=== PATIENT | male | born 1950 | race Caucasian/White ===

== ENCOUNTER 2023-05-30 12:58 | Outpatient (OUT) | payer MEDICARE, SELFPAY ==
[2023-05-30 13:15] LABS: Basophils Percent Auto 0.6 % (0.2-2.0); Eosinophils Absolute Auto 0.2 10^3/uL (0.0-0.7); Eosinophils Percent Auto 2.2 % (0.9-7.0); Hematocrit 42.1 % (42.0-54.0); Hemoglobin 14.4 g/dL (14.0-18.0); Immature Granulocytes Abs Auto 0.02 10^3/uL (0.00-0.03); Immature Granulocytes Pct Auto 0.3 % (0.0-0.5); Lymphocytes Absolute Auto 2.2 10^3/uL (1.2-3.8); Lymphocytes Percent Auto 32.3 % (20.5-60.0); Mean Corpuscular HGB Conc 34.2 g/dL (29.9-35.2); Mean Corpuscular Hemoglobin 31.9 pg (25.9-34.0); Mean Corpuscular Volume 93.3 fL (80.0-94.0); Mean Platelet Volume 9.3 fL (9.5-13.5); Monocytes Absolute Auto 0.6 10^3/uL (0.3-0.8); Monocytes Percent Auto 9.2 % (1.7-12.0); Neutrophils Absolute Auto 3.7 10^3/uL (1.4-6.5); Neutrophils Percent Auto 55.4 % (43.0-75.0); Platelet Count 276 10^3/uL (150-450); Red Blood Count 4.51 10^6/uL (4.70-6.10); Red Cell Distribution Width 13.5 % (11.0-15.0); White Blood Count 6.7 10^3/uL (4.0-11.0)
[2023-05-30 13:46] LABS: Alanine Aminotransferase 17 U/L (16-63); Anion Gap 12.6; BUN Creatinine Ratio 15.9; Calcium 8.7 mg/dL (8.5-10.1); Carbon Dioxide 28.3 mmol/L (21.0-32.0); Chloride 100 mmol/L (98-107); Chol HDL Ratio 3.2; Cholesterol 120 mg/dL (<=200); Estimated GFR (African America >60 (>=60); Estimated GFR (Non-African Ame >60 (>=60); Glucose 109 mg/dL (74-106); HDL Cholesterol 37 mg/dL (40-60); Potassium 3.9 mmol/L (3.5-5.1); Sodium 137 mmol/L (136-145); Triglycerides 121 mg/dL (<=150); VLDL CHOLESTEROL 24.2 mg/dL
[2023-05-30 14:03] LABS: Prostate Specific Antigen Scrn 0.67 ng/mL (<=4.00)
[2023-05-30 17:12] LABS: Microalbumin Urine Random 26.7 mg/dL (<=30.0)
== END 2023-05-30 12:59 | disposition home or self-care (01) ==
LOC: LAB 12:58
PROVIDERS: PCP Internal Medicine; Visit Provider Internal Medicine
DX: E11.65 Type 2 diabetes mellitus with hyperglycemia (principal); E78.01 Familial hypercholesterolemia; I10 Essential (primary) hypertension; Z79.899 Other long term (current) drug therapy; Z12.5 Encounter for screening for malignant neoplasm of prostate
CPT/HCPCS: 36415; 80048; 80061; 82043; 84460; 85025; G0103

== ENCOUNTER 2023-07-08 17:31 | Emergency (ER) | payer MEDICARE, SELFPAY ==
[2023-07-08] VITALS (21 sets, daily range): BP systolic 108–148; BP diastolic 58–87; PULSE 81–104; RESP 9–25; TEMP 36.7; O2SAT 92–96; BMI 26.2
--- NOTE | 2023-07-08 17:54 | ECG_ITS ---
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
--- NOTE | 2023-07-08 17:54 | XR_ITS ---
[address] [address] Patient Name: VINAY SPAULDING MRN: [id number] date: 1950 Sex: M Assigned Patient Location: ER Current Patient Location: ER Accession/Order Number: [id number] Exam Date: 07/08/2023 18:10 Report Date: 07/08/2023 19:00 At the request of: ANNI MILLER Procedure: XR chest 1V ONE-VIEW CHEST RADIOGRAPH, 07/08/2023 6:10 PM EST COMPARISON: None. CLINICAL HISTORY: Chest pain Findings and impression: 1. Minimal atelectasis or scarring in the right midlung zone and minimal atelectasis in the right lung base. 2. Questionable Borderline pulmonary venous hypertension/pulmonary vascular congestion. 3. Cardiomegaly. 4. No acute osseous abnormality. Electronically authenticated by: Israel HOBBS Date: 07/08/2023 19:00
--- NOTE | 2023-07-08 18:02 | ED.CHESTPAI1 ---
HPI - Chest Pain General Chief Complaint: Chest Pain Stated Complaint: Difficulty Swallowing Time Seen by Provider: 07/08/23 17:50 Source: patient Mode of arrival: walk-in Limitations: no limitations History of Present Illness HPI narrative: patient is a 73-year-old male who presents to the emergency department for discomfort in the chest and epigastrium. Patient states throughout the day today he has had burning that felt like heartburn. He took a Prilosec prior to arrival. he states this afternoon with eating, he felt discomfort in the epigastrium when trying to swallow. He has no history of acid reflux or ulcers. He does have a history of coronary artery disease and previous heart attack twenty years ago with one stent placed. He currently takes medications for high cholesterol, [id number] diabetes, high blood pressure. He denies any recent illness, fevers, cough, congestion. he has no discomfort when he is not eating or swallowing. He denies shortness of breath. He has had no peripheral edema. Risk Factors Coronary artery disease risk factors: diabetes, hyperlipidemia and hypertension Related Data Home Medications Medication Instructions Recorded Confirmed atorvastatin 80 mg tablet 80 mg PO DAILY 07/08/23 07/08/23 dapagliflozin propanediol 10 mg 10 mg PO DAILY 07/08/23 07/08/23 tablet (Farxiga) dulaglutide 3 mg/0.5 mL 3 mg subcut .weekly 07/08/23 07/08/23 subcutaneous pen injector (Trulicity) losartan 25 mg tablet 25 mg PO DAILY 07/08/23 07/08/23 metformin 1,000 mg tablet 1,000 mg PO BID 07/08/23 07/08/23 metoprolol succinate 25 mg 25 mg PO DAILY 07/08/23 07/08/23 tablet,extended release 24 hr nitroglycerin 0.4 mg sublingual 0.4 mg sublingual Q5M PRN chest 07/08/23 07/08/23 tablet pain omeprazole 40 mg capsule,delayed 40 mg PO DAILY 07/08/23 07/08/23 release tramadol 50 mg tablet 50 mg PO Q4H PRN pain 07/08/23 07/08/23 Allergies Allergy/AdvReac Type Severity Reaction Status Date / Time No Known Drug Allergies Allergy Verified 07/08/23 17:38 Review of Systems ROS Constitutional Denies: fever or chills Ears, nose, mouth, and throat Denies: throat pain Cardiovascular Reports: chest pain Respiratory Denies: shortness of breath or cough Gastrointestinal Denies: nausea or vomiting Musculoskeletal Denies: back pain Integumentary/Breast Denies: rash Hematologic/Lymphatic Denies: easy bruising PFSH [facility] Social History Smoking status: Former smoker Exam Narrative Exam Narrative: Gen.: Awake, alert, in no distress Head: Normocephalic, atraumatic ENT: Moist mucous membranes Respiratory: No respiratory distress, lungs clear bilaterally Cardio: Regular rate and rhythm Gastrointestinal: Abdomen is soft, nondistended and nontender to palpation Extremities: Moves extremities equally, no pedal edema Psych: Normal mood and affect Neuro: No focal neuro deficit Skin: Warm, dry, intact Constitutional Vital Signs, click to edit/add: Last Vital Signs Temp 98.0 F 07/08/23 17:42 Pulse 91 H 07/08/23 19:40 Resp 17 07/08/23 19:40 BP 119/75 07/08/23 19:30 Pulse Ox 96 07/08/23 19:40 O2 Del Method Room Air 07/08/23 17:42 Course Vital Signs Vital signs: Vital Signs Temperature 98.0 F 07/08/23 17:42 Pulse Rate 98 H 07/08/23 17:42 Respiratory Rate 20 07/08/23 17:42 Blood Pressure 135/69 07/08/23 17:42 Pulse Oximetry 95 07/08/23 17:42 Oxygen Delivery Method Room Air 07/08/23 17:42 Temperature 98.0 F 07/08/23 17:42 Pulse Rate 91 H 07/08/23 19:40 Respiratory Rate 17 07/08/23 19:40 Blood Pressure 119/75 07/08/23 19:30 Pulse Oximetry 96 07/08/23 19:40 Oxygen Delivery Method Room Air 07/08/23 17:42 MDM - Chest Pain MDM Narrative Medical decision making narrative: lab studies within normal limits. Lipase is mildly elevated although the patient has no persistent abdominal pain and the elevation is not three times the upper limit of normal so it does not qualify for acute pancreatitis. Patient was given aspirin and gastrointestinal cocktail in the Emergency Room. He had no complaints of chest discomfort in the Emergency Room. He maintains normal cardiac monitoring, normal EKG. He was reevaluated by attending physician and a repeat troponin was ordered for the patient. He will follow-up with closely with his PCP, repeat troponin is within normal limits. Return to the Emergency Room if symptoms change or worsen Medical Records Data Attestation: I reviewed the patient's medical records. Lab Data Attestation: I reviewed the patient's lab results. Labs: Lab Results 07/08/23 07/08/23 Range/Units 17:53 20:16 WBC 7.9 (4.0-11.0) 10^3/uL RBC 4.60 L (4.70-6.10) 10^6/uL Hgb 14.4 (14.0-18.0) g/dL Hct 41.9 L (42.0-54.0) % MCV 91.1 (80.0-94.0) fL MCH 31.3 (25.9-34.0) pg MCHC 34.4 (29.9-35.2) g/dL RDW 13.3 (11.0-15.0) % Plt Count 281 (150-450) 10^3/uL MPV 9.5 (9.5-13.5) fL Neut % (Auto) 62.1 (43.0-75.0) % Lymph % (Auto) 24.7 (20.5-60.0) % [place] % (Auto) 10.7 (1.7-12.0) % Eos % (Auto) 1.9 (0.9-7.0) % Baso % (Auto) 0.5 (0.2-2.0) % Neut # (Auto) 4.9 (1.4-6.5) 10^3/uL Lymph # (Auto) 2.0 (1.2-3.8) 10^3/uL [place] # (Auto) 0.9 H (0.3-0.8) 10^3/uL Eos # (Auto) 0.2 (0.0-0.7) 10^3/uL Baso # (Auto) 0.0 (0.0-0.1) 10^3/uL Abs Immat Gran (auto) 0.01 (0.00-0.03) 10^3/uL Imm/Tot Granulo (auto) 0.1 (0.0-0.5) % PT 10.5 (9.0-11.6) sec INR 0.99 APTT 27.3 (22.3-36.2) sec Sodium 135 L (136-145) mmol/L Potassium 4.0 (3.5-5.1) mmol/L Chloride 99 (98-107) mmol/L Carbon Dioxide 28.8 (21.0-32.0) mmol/L Anion Gap 11.2 BUN 17.0 (7.0-18.0) mg/dL Creatinine 1.13 (0.70-1.30) mg/dL Est GFR ( Amer) >60 (>=60) Est GFR (Non-Af Amer) >60 (>=60) BUN/Creatinine Ratio 15.0 Glucose 153 H (74-106) mg/dL Calcium 9.4 (8.5-10.1) mg/dL Total Bilirubin 0.9 (0.2-1.0) mg/dL AST 16 (15-37) U/L ALT 18 (16-63) U/L Alkaline Phosphatase 86 (46-116) U/L Total Creatine Kinase 24 L (39-308) U/L CK-MB (CK-2) <0.50 (<=3.60) ng/mL Troponin I High Sens 7.3 7.9 (4.0-76.1) pg/mL NT-Pro-B Natriuret Pep 148.0 (<=900.0) pg/mL Total Protein 8.7 H (6.4-8.2) g/dL Albumin 3.3 L (3.4-5.0) g/dL Globulin 5.4 g/dL Albumin/Globulin Ratio 0.6 Lipase 141.0 H (16.0-77.0) U/L Imaging Data Chest x-ray: Attestation: I have reviewed the pertinent imaging results. ECG Data Attestation: I personally reviewed and interpreted this ECG as follows: (normal sinus rhythm at a rate of ninety-seven, no acute ST elevation or ectopy. EKG reviewed by attending physician) ECG interpretation date: 07/08/23 ECG interpretation time: 18:06 Heart Score History: Slightly/Non-Suspicious ECG: Normal Age: >65 years Risk Factors: >3 Risk Factors/ HX of CAD:2 Troponin: <Normal Limit Total Heart Score Recommendations & Risks:: 4 Discharge Plan Discharge Chief Complaint: Chest Pain Clinical Impression: Chest pain Time of Disposition Decision: 20:49 Condition: Good Prescriptions / Home Meds: No Action atorvastatin 80 mg tablet 80 mg PO DAILY Farxiga 10 mg tablet 10 mg PO DAILY Trulicity 3 mg/0.5 mL pen injector 3 mg SUBCUT .weekly metformin 1,000 mg tablet 1,000 mg PO BID metoprolol succinate 25 mg tablet extended release 24 hr 25 mg PO DAILY omeprazole 40 mg capsule,delayed release(DR/EC) 40 mg PO DAILY nitroglycerin 0.4 mg tablet, sublingual 0.4 mg sublingual Q5M PRN (Reason: chest pain) tramadol 50 mg tablet 50 mg PO Q4H PRN (Reason: pain) losartan 25 mg tablet 25 mg PO DAILY Instructions: Chest Pain (ED) Stand Alone Forms: Portal Instructions Referrals: Vernon Greene, [Primary Care Provider] - As soon as possible
[2023-07-08 18:05] LABS: Basophils Percent Auto 0.5 % (0.2-2.0); Eosinophils Absolute Auto 0.2 10^3/uL (0.0-0.7); Eosinophils Percent Auto 1.9 % (0.9-7.0); Hematocrit 41.9 % (42.0-54.0); Hemoglobin 14.4 g/dL (14.0-18.0); Immature Granulocytes Abs Auto 0.01 10^3/uL (0.00-0.03); Immature Granulocytes Pct Auto 0.1 % (0.0-0.5); Lymphocytes Percent Auto 24.7 % (20.5-60.0); Mean Corpuscular HGB Conc 34.4 g/dL (29.9-35.2); Mean Corpuscular Hemoglobin 31.3 pg (25.9-34.0); Mean Corpuscular Volume 91.1 fL (80.0-94.0); Mean Platelet Volume 9.5 fL (9.5-13.5); Monocytes Absolute Auto 0.9 10^3/uL (0.3-0.8); Monocytes Percent Auto 10.7 % (1.7-12.0); Neutrophils Absolute Auto 4.9 10^3/uL (1.4-6.5); Neutrophils Percent Auto 62.1 % (43.0-75.0); Platelet Count 281 10^3/uL (150-450); Red Cell Distribution Width 13.3 % (11.0-15.0); White Blood Count 7.9 10^3/uL (4.0-11.0)
[2023-07-08] MEDS: lidocaine HCL 15 ML, MAG HYDROX/ALUMINUM HYD/SIMETH 30 ML, HYOSCYAMINE SULFATE 0.25 MG PO (18:17)
[2023-07-08] MEDS: ASPIRIN 81 MG TAB.CHEW 162 MG PO (18:17)
[2023-07-08 18:23] LABS: INR 0.99; Partial Thromboplastin Time 27.3 sec (22.3-36.2); Prothrombin Time 10.5 sec (9.0-11.6)
[2023-07-08 18:26] LABS: Albumin Globulin Ratio 0.6; Albumin Level 3.3 g/dL (3.4-5.0); Alkaline Phosphatase 86 U/L (46-116); Anion Gap 11.2; Aspartate Amino Transferase 16 U/L (15-37); Bilirubin Total 0.9 mg/dL (0.2-1.0); Calcium 9.4 mg/dL (8.5-10.1); Carbon Dioxide 28.8 mmol/L (21.0-32.0); Chloride 99 mmol/L (98-107); Estimated GFR (African America >60 (>=60); Estimated GFR (Non-African Ame >60 (>=60); Globulin 5.4 g/dL; Glucose 153 mg/dL (74-106); Sodium 135 mmol/L (136-145); Total Protein 8.7 g/dL (6.4-8.2); Troponin I High Sensitivity 7.3 pg/mL (4.0-76.1)
[2023-07-08 18:43] LABS: Alanine Aminotransferase 18 U/L (16-63)
[2023-07-08 20:45] LABS: Creatine Kinase 24 U/L (39-308); Creatine Kinase MB <0.50 ng/mL (<=3.60); Troponin I High Sensitivity 7.9 pg/mL (4.0-76.1)
== END 2023-07-08 21:00 | disposition home or self-care (01) ==
PROVIDERS: Physician Assistant; Emergency Provider Emergency Medicine Emergency Medical Services; PCP Internal Medicine
DX: R07.9 Chest pain, unspecified (principal); I25.10 Atherosclerotic heart disease of native coronary artery without angina pectoris; E78.00 Pure hypercholesterolemia, unspecified; E11.9 Type 2 diabetes mellitus without complications; I10 Essential (primary) hypertension; Z79.899 Other long term (current) drug therapy; I25.2 Old myocardial infarction; Z79.84 Long term (current) use of oral hypoglycemic drugs; Z79.85 Long-term (current) use of injectable non-insulin antidiabetic drugs; Z87.891 Personal history of nicotine dependence
CPT/HCPCS: 36415; 71045; 80053; 82550; 82553; 83690; 83880; 84484; 85025; 85610; 85730; 93005; 99285

== ENCOUNTER 2023-07-31 08:26 | Outpatient (OUT) | payer MEDICARE, SELFPAY ==
--- NOTE | 2023-07-31 10:02 | CT_ITS ---
The [address] [address] Patient Name: VINAY SPAULDING MRN: [id number] date: 1950 Sex: M Assigned Patient Location: CT Current Patient Location: CT Accession/Order Number: [id number] Exam Date: 07/31/2023 09:48 Report Date: 07/31/2023 11:20 At the request of: MACK GARDUNO Procedure: CT abdomen pelvis w con CT abdomen pelvis w con, 07/31/2023 9:48 AM EST INDICATION: Unexplained Weight Loss R63.4, Esophageal Dysphagia R13.19 COMPARISON: There is no appropriate prior study for comparison. TECHNIQUE: Axial images of the abdomen and were obtained after the administration of IV and oral contrasts. Multiplanar reformatted images were generated and reviewed as needed. Dose reduction techniques were achieved by using automated exposure control and/or adjustment of mA and/or kV according to patient size and/or use of iterative reconstruction technique. FINDINGS: Lungs: There is peripheral honeycombing, architectural distortion and traction bronchiectasia in the visualized portion of the upper and lower lobes suggesting of nonspecific interstitial pneumonitis. No pleural effusion is noted. Liver and gallbladder: The liver and gallbladder are unremarkable. No enlargement of intra or extrahepatic biliary ducts. Genitourinary system: No hydronephrosis. No nephrolithiasis. No abnormality of the urinary bladder is noted. Calcification within the prostate is noted. Other solid abdominal organs: adrenal glands, and pancreas, are unremarkable. There is moderate splenomegaly measuring 13.4 cm. Aorta: The infrarenal abdominal aorta is nonaneurysmal. Free fluid: There is no free fluid in the abdomen pelvis. Lymph node: No lymph node enlargement by size criteria is noted. Reactive gastrohepatic lymph node measuring 7 mm in short axis. Stomach and Bowel: No abnormality of the stomach is noted. No abnormality of small or large bowel is noted. Bone: There is no suspicious osteolytic or osteoblastic lesion. There is diffuse demineralization of bone. Lower lumbar spine degenerative changes are noted. CT/CT abdomen pelvis w con IMPRESSION: 1. Chest findings suggesting of nonspecific interstitial pneumonitis. A CT of the chest may be helpful for further evaluation. 2. Mild splenomegaly. Otherwise, no significant abnormality within the abdomen pelvis. Electronically authenticated by: JI COHN Date: 07/31/2023 11:20
[2023-07-31 10:16] LABS: Basophils Absolute Auto 0.1 10^3/uL (0.0-0.1); Basophils Percent Auto 0.6 % (0.2-2.0); Eosinophils Absolute Auto 0.1 10^3/uL (0.0-0.7); Eosinophils Percent Auto 1.6 % (0.9-7.0); Hematocrit 38.5 % (42.0-54.0); Hemoglobin 13.1 g/dL (14.0-18.0); Immature Granulocytes Abs Auto 0.01 10^3/uL (0.00-0.03); Immature Granulocytes Pct Auto 0.1 % (0.0-0.5); Lymphocytes Absolute Auto 2.1 10^3/uL (1.2-3.8); Lymphocytes Percent Auto 25.5 % (20.5-60.0); Mean Corpuscular Hemoglobin 30.8 pg (25.9-34.0); Mean Corpuscular Volume 90.4 fL (80.0-94.0); Mean Platelet Volume 8.6 fL (9.5-13.5); Monocytes Absolute Auto 0.7 10^3/uL (0.3-0.8); Monocytes Percent Auto 8.6 % (1.7-12.0); Neutrophils Absolute Auto 5.1 10^3/uL (1.4-6.5); Neutrophils Percent Auto 63.6 % (43.0-75.0); Platelet Count 367 10^3/uL (150-450); Red Blood Count 4.26 10^6/uL (4.70-6.10); Red Cell Distribution Width 13.8 % (11.0-15.0)
[2023-07-31 10:51] LABS: Alanine Aminotransferase 18 U/L (16-63); Albumin Globulin Ratio 0.5; Albumin Level 2.7 g/dL (3.4-5.0); Alkaline Phosphatase 103 U/L (46-116); Amylase 28 U/L (25-115); Anion Gap 12.8; Aspartate Amino Transferase 20 U/L (15-37); BUN Creatinine Ratio 11.7; Bilirubin Total 0.7 mg/dL (0.2-1.0); Calcium 8.2 mg/dL (8.5-10.1); Carbon Dioxide 27.9 mmol/L (21.0-32.0); Chloride 97 mmol/L (98-107); Estimated GFR (African America >60 (>=60); Estimated GFR (Non-African Ame >60 (>=60); Globulin 5.4 g/dL; Glucose 110 mg/dL (74-106); Potassium 3.7 mmol/L (3.5-5.1); Sodium 134 mmol/L (136-145); Total Protein 8.1 g/dL (6.4-8.2)
[2023-08-01 10:57] LABS: Thyroid Stimulating Hormone 1.332 uIU/mL (0.358-3.740)
--- OUTSIDE RECORDS SUMMARY | 2023-08-20 00:31 | XMS_ITS | CCD ---
Author Name Unknown Address [address] [place] [address] Organization [facility] Care Team Providers Care Turbine Technician Name Role Phone Vernon Greene Unavailable VERNON GREENE Admitting Unavailable JC, VERNON Attending Unavailable JC, VERNON Primary Care Unavailable BALL, VERNON Consulting Unavailable LIDIA, DR VINNY Evans Consulting Unavailable JC, VERNON Primary Care Unavailable REQUEST, NONE LISTED Admitting Unavaila ble REQUEST, NONE LISTED Attending Unavaila ble REQUEST, NONE LISTED Consulting Unavaila ble REQUEST, NONE LISTED Admitting Unavaila ble REQUEST, NONE LISTED Attending Unavaila ble BALL, VERNON Primary Care Unavailable REQUEST, NONE LISTED Consulting Unavaila ble REQUEST, NONE LISTED Admitting Unavaila ble REQUEST, NONE LISTED Attending Unavaila ble JC, VERNON Primary Care Unavailable REQUEST, NONE LISTED Consulting Unavaila ble JC, VERNON Admitting Unavailable JC, VERNON Attending Unavailable JC, VERNON Primary Care Unavailable JC, VERNON Consulting Unavailable DO Erickson Nascimento Attending Provider [phone] Erickson Nascimento Unavailable DO Erickson Nascimento Attending Provider DO Vernon Greene Primary Care Provider [phone] Erickson Nascimento Admitting Unavailable Erickson Nascimento Attending Unavailable Vernon Greene Primary Care Unavailable Erickson Nascimento Admitting Unavailable Erickson Nascimento Attending Unavailable Navneet Puga Unavailable Medications Current Medications Medication Drug Class(es) Dates Sig (Normalized) Sig (Original) Accu-Chek Nury Plus - (20 sources) Accu-Chek Nury Plus - USE 1 STRIP TO TEST BLOOD SUGAR ONCE EVERY DAY for 90 Active aspirin 81 mg oral tablet (1 source) Platelet Aggregation Inhibitor, Nonsteroidal Anti-inflammatory Drug Start: 07-04-2023 take 81 mg by mouth once daily Aspirin Active 81 MG PO Daily July 04, 2023 12:00am atorvastatin 80 mg oral tablet (20 sources) HMG-CoA Reductase Inhibitor Start: 07-04-2023 take 80 mg by mouth once daily Atorvastatin Active 80 MG PO Daily July 04, 2023 12:00am dapagliflozin 10 mg oral tablet (20 sources) Sodium-Glucose Cotransporter 2 Inhibitor Start: 07-04-2023 take 1 tablet by mouth once daily Dapagliflozin Propanediol (Farxiga) 10 mg tablet Active 10 MG PO Daily July 04, 2023 12:00am trulicity 3 mg/0.5ml solution pen-injector (20 sources) GLP-1 Receptor Agonist Trulicity 3 MG/0.5ML as directed Subcutaneous Active Dulaglutide (Trulicity) 3 mg/0.5 mL pen injector (1 source) Start: 07-04-2023 Dulaglutide (Trulicity) 3 mg/0.5 mL pen injector Active 3 MG SUBCUT every week July 04, 2023 12:00am losartan potassium 25 mg oral tablet (20 sources) Angiotensin 2 Receptor Anne-Marie Start: 07-04-2023 take 25 mg by mouth once daily Losartan Active 25 MG PO Daily July 04, 2023 12:00am metFORMIN hydrochloride 1000 mg oral tablet (20 sources) Biguanide Start: 07-04-2023 take 1000 mg by mouth once daily Metformin Active 1000 MG PO Daily July 04, 2023 12:00am 24 hr metoprolol succinate 25 mg extended release oral tablet (20 sources) beta-Adrenergic Anne-Marie Start: 07-04-2023 take 25 mg by mouth once daily Metoprolol Succinate Active 25 MG PO Daily July 04, 2023 12:00am nitroglycerin 0.4 mg sublingual tablet (20 sources) Nitrate Vasodilator Start: 07-04-2023 take 0.4 mg under the tongue once daily Nitroglycerin Active 0.4 MG SUBLINGUAL Daily July 04, 2023 12:00am pt has never used Nitroglycerin 0. 4 MG 1 tablet Sublingual PRN Active omeprazole 20 mg delayed release oral tablet (6 sources) Proton Pump Inhibitor Start: 07-04-2023 take 20 mg by mouth once daily Omeprazole Active 20 MG PO Daily July 04, 2023 12:00am Start: 11-18-2022 take 1 capsule by mo uth once daily Omeprazole 40 MG 1 capsule 30 minutes before morning meal Orally Once a day for 30 days Oct, Active traMADol hydrochloride 50 mg oral tablet (1 source) Opioid Agonist Start: 07-04-2023 take 50 mg by mouth every four hours Tramadol Active 50 MG PO Q4H 10 July 04, 2023 12:00am Problems Active Problems Problem Classification Problem Date Documented Da te Episodic/Chronic Abdominal pain (2 sources) Epigastric pain Episodic Chronic obstructive pulmonary disease and bronchiectasis (2 sources) Acute exacerbation of chronic obstructive airways disease; Translations: [Chronic obstructive pulmonary disease with (acute) exacerbation] Chronic Coronary atherosclerosis and other heart disease (20 sources) Coronary arteriosclerosis; Translations: [Atherosclerotic heart disease of [place] coronary artery without angina pectoris] Chronic Diabetes mellitus with complications (20 sources) Polyneuropathy due to type 2 diabetes mellitus; Translations: [Type 2 diabetes mellitus with diabetic polyneuropathy] Onset: 05-15-2022 Chronic Disorders of lipid metabolism (20 sources) Pure hypercholesterolemia ; Translations: [Familial hypercholesterolemia ] Onset: 05-19-2022 Chronic Esophageal disorders (20 sources) Gastro-esophageal reflux disease with esophagitis; Translations: [Gastroesophageal reflux disease with esophagitis without hemorrhage] Chronic Essential hypertension (20 sources) Essential hypertension; Translations: [Essential (primary) hypertension] Onset: 05-19-2022 Chronic Hyperplasia of prostate (20 sources) Lower urinary tract symptoms due to benign prostatic hypertrophy; Translations: [Benign prostatic hyperplasia with lower urinary tract symptoms] Chronic Other aftercare (20 sources) H/O: high risk medication; Translations: [Other terminal superintendent (current) drug therapy] Episodic Other aftercare (2 sources) Other terminal superintendent (current) drug therapy; Translations: [OTH 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 SERVICE TECHNICIAN CURRENT DRUG THERAPY] Onset: 05-19-2022 Episodic Other connective tissue disease (3 sources) Olecranon bursitis, left elbow Episodic Other gastrointestinal disorders (20 sources) Intra-abdominal and pelvic swelling, mass and lump; Translations: [Intra-abdominal and pelvic swelling, mass and lump, unspecified site] Episodic Other gastrointestinal disorders (2 sources) Other dysphagia Episodic Other liver diseases (4 sources) Non-alcoholic fatty liver; Translations: [Fatty (change of) liver, not elsewhere classified] Chronic Other liver diseases (18 sources) Fatty (change of) liver, not elsewhere classified; Translations: [Nonalcoholic fatty liver disease] Chronic Other liver diseases (2 sources) Abnormal levels of other serum enzymes Episodic Other lower respiratory disease (1 source) Hypoxemia Episodic Other nervous system disorders (20 sources) Chronic pain; Translations: [Other chronic pain] Chronic Other nervous system disorders (1 source) Other chronic pain Chronic Other non-traumatic joint disorders (5 sources) Pain in left knee; Translations: [PAIN IN LEFT KNEE] Onset: 11-25-2022 Episodic Other non-traumatic joint disorders (2 sources) Pain in left elbow Episodic Other nutritional; endocrine; and metabolic disorders (3 sources) Abnormal weight loss Episodic Other screening for suspected conditions (not mental disorders or infectious disease) (4 sources) Encounter for screening for malignant neoplasm of prostate; Translations: [Encounter for screening for malignant neoplasm of colon] Onset: 05-19-2022 Episodic Other skin disorders (1 source) Localized swelling, mass and lump, unspecified Episodic Other skin disorders (1 source) Localized swelling, mass and lump, left upper limb Episodic Other skin disorders (2 sources) Localized swelling, mass and lump, unspecified upper limb; Translations: [Elbow mass] Onset: 07-04-2023 07-04-2023 Episodic Other upper respiratory disease (20 sources) Bleeding from nose; Translations: [Epistaxis] Episodic Spondylosis; intervertebral disc disorders; other back problems (20 sources) Lumbar spondylosis; Translations: [Spondylosis without myelopathy or radiculopathy, lumbar region] Chronic Substance-related disorders (20 sources) Tobacco user; Translations: [Nicotine dependence, cigarettes, in remission] Chronic Unclassified (1 source) Localized swelling, mass and lump, left upper limb; Translations: [Localized swelling, mass and lump, left upper limb] Onset: 07-04-2023 Unclassified (1 source) Pain in left elbow; Translations: [Pain in left elbow] Onset: 02-26-2023 Past or Other Problems Problem Classification Problem Date Documented Da te Episodic/Chronic Esophageal disorders (5 sources) Esophageal disorders Pneumonia (except that caused by tuberculosis or sexually transmitted disease) (1 source) Pneumonia (except that caused by tuberculosis or sexually transmitted disease) Viral infection (1 source) COVID-19 Results Test Name Value Interpretation Reference Range Facil ity Glucose Glucometer (BldC) [M ass/Vol]Ordered By: Erickson Nascimento on 07-04-2023 Glucose [Mass/Vol] 134 mg/dL [facility] Comment on above: Random Glucose Refer ence Range is dependent on time and content of last meal. Glucose of more than 200 mg/dL in a nonstressed, ambulatory subject supports the diagnosis of Diabetes Mellitus. Glucose Poct Glucometerson 1 09-03-2022 Glucose [Mass/Vol] 134 mg/dL Normal [facility] Comment on above: Result Comment: [place] om Glucose Reference Range is dependent on time and content of last meal. Glucose of more than 200 mg/dL in a nonstressed, ambulatory subject supports the diagnosis of Diabetes Mellitus. PERFORMED BY: [place] [id number] [address] [place] [address] PATHOLOGIST [employer] CLOSER ADELFO RAMIREZ M.D. Performed By: #### G LOYD #### Point of Care testing , Eduard 07-04-2023 L Specimen: [id number] Received: 07/04/23 Status: RAQUEL De Oliveira Num: [id number] Spec Type: Surgical Subm Dr: Erickson Nascimento, DO Tissues: A Soft Tissue/Surgical Margin-Other than Tumor,Mass,Lip or Natasha (LT ELBOW MASS) Procedures: VINCENT, Gross/Micro L4 Age/ Patient Sex Location Account Attending Physician MattVinay 73/M [place] [id number] Erickson Nascimento DO SPEC NUM: [id number] RECD: 07/04/23 STATUS: RAQUEL MCKOYLiss NUM: [id number] DENISA: 07/04/[address] [facility] [address]: Erickson Nascimento DO ENTERED: 07/04/[address] [facility] [address]: DARY TYPE: Surgical DEPT: S ORDERED: HE, Gross/Micro L4 ORDERED: HE, Gross/Micro L4 Pathological Diagnosis Soft tissue, left elbow, excision: - 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 with patchy associated fibrinoid degeneration, focal mild chronic inflammation, and dense surrounding fibrosis per pathological features of severe necrobiotic degeneration of tenosynovial membrane - No malignancy, or any other obvious features of secondary infection observed NOTE: - The differential diagnosis may include rheumatoid nodule or other necrobiosis nodule such as subcutaneous granuloma annulare, and the superimposed surrounding chronic bursitis r equiring clinical correlation Clinical Information Left elbow mass Gross Description Received in formalin labeled with the patient's name, date of and left elbow mass is a 2.2 x 1.8 x 1.2 cm gutierrez-dubois, annular tissue with a rubbery, dubois-pink cut surface. Glue Mill Operator sections are submitted in one cassette labeled A1. Specimen: [id number] Received: 07/04/23 Status: RAQUEL De Oliveira Num: [id number] Spec Type: Surgical Subm Dr: Erickson Nascimento DO Tissues: A Soft Tissue/Surgical Margin-Other than Tumor,Mass,Lip or Natasha (LT ELBOW MASS) Procedures: Kristin KAUR/Zo L4 Patient: Vinay Gutierrez [id number] (Continued) Specimen: [id number] Received: 07/04/23 (Continued) Signed (signature on file) Brandy Keane MD 07/08/23 1545 Specimen: [id number] Received: 07/04/23 Status: RAQUEL De Oliveira Num: [id number] Spec Type: Surgical Subm Dr: Erickson Nascimento DO Tissues: A Soft Tissue/Surgical Margin-Other than Tumor,Mass,Lip or Natasha (LT ELBOW MASS) Procedures: VINCENT, Gross/Micro L4 Patient: Vinay Gutierrez [id number] (Continued) Specimen: [id number] Received: 07/04/23 (Continued) Microscopic Description One H E slide reviewed. The microscopic examination confirms the diagnosis. CPT Codes 75582 Specimen: [id number] Received: 07/04/23 Status: RAQUEL De Oliveira Num: [id number] Spec Type: Surgical Subm Dr: Erickson Nascimento DO Tissues: A Soft Tissue/Surgical Margin-Other than Tumor,Mass,Lip or Natasha (LT ELBOW MASS) Procedures: HE, Gross/Micro L4 Patient: Vinay Gutierrez [id number] (Continued) Signed (signature on file) Brandy Keane MD 07/08/23 1545 Normal [facility] XR elbow LT 2Von 02-26-2023 XR elbow LT 2V [place] [address] XRay Report Signed Patient: Vinay Gutierrez MR#: [id number] : 1950 Acct:[id number] Age/Sex: 72 / M ADM Date: 02/26/23 Loc: [facility] Room: Type: [facility] Attending Dr: Erickson Nascimento DO Copies to: Erickson Nascimento DO Ordering Provider: Erickson Nascimento DO Date of Service: 02/26/23 XR/XR elbow LT 2V: Left elbow pain LEFT ELBOW - 2 views. CLINICAL HISTORY: Left elbow bursitis. COMPARISON: None FINDINGS: Evidence of olecranon bursitis is seen. No acute bony process is noted. No elbow joint effusion. XR/XR elbow LT 2V IMPRESSION: PLAIN FILM EVIDENCE OF OLECRANON BURSITIS. NO ACUTE BONY PROCESS. Impression dictated by: Abdirahman Blount Jr., D.O.02/26/2023 2:56 PM Dictation Location: [place] [address] Transcribed By: [facility] 02/26/23 1456 Dictated By: Abdirahman Blount Jr, DO 02/26/23 1455 Signed By: 02/26/23 1456 Normal [facility] GLYCOHEMOGLOBIN A1Con 2022 ADA RECOMMENDATION SEE BELOW Normal [facility] Comment on above: Result Comment: ADA RECOMMENDED LIMIT 4.0 - 6.0 ADA THERAPEUTIC TARGET < 7.0 ACTION SUGGESTED > 7.0 Performed By: #### D ATA1C #### [facility] [address] [place] [address] Dr. Ginger Keane Glucose [Mass/Vol] 123 mg/dL Normal [facility] Comment on above: Performed By: #### D ATA1C #### [facility] [address] [place] [address] Dr. Ginger Keane HbA1c (Bld) [Mass fraction] 5.9 % Normal 4.5-6.2 [facility] Comment on above: Performed By: #### D ATA1C #### [facility] [address] [place] [address] [address] Ginger Keane GLYCOHEMOGLOBIN A1Con 2021 ADA RECOMMENDATION SEE BELOW Normal [facility] Comment on above: Result Comment: ADA RECOMMENDED LIMIT 4.0 - 6.0 ADA THERAPEUTIC TARGET < 7.0 ACTION SUGGESTED > 7.0 Performed By: #### D ATA1C #### [facility] [address] [address] [address] Ginger Keane Glucose [Mass/Vol] 160 mg/dL Normal [facility] Comment on above: Performed By: #### D ATA1C #### [facility] [address] [place] [address] Dr. Ginger Keane HbA1c (Bld) [Mass fraction] 7.2 % Critically high 4.5 -6.2 [facility] Comment on above: Performed By: #### D ATA1C #### [facility] [address] [place] [address] Dr. Ginger Keane MICROALBUMIN URINEon 022 Albumin, Urine 123.8 ug/mL Normal Not Estab. [facility] Comment on above: Performed By: #### M ALBLC #### [facility] [address] [place] [address] Dr. Ginger Keane CBC AUTO DIFFon 05-15-2022 BASO # 0.1 103/ul Normal 0.0-0.1 [facility] Comment on above: Performed By: #### C BC #### [facility] [address] [place] [address] Dr. Ginger Keane Basophils/100 WBC (Bld) 0.6 % Normal 0.2-2.0 [facility] Comment on above: Performed By: #### C BC #### [facility] [address] [place] [address] Dr. Ginger Keane EO # 0.2 103/ul Normal 0.0-0.7 [facility] Comment on above: Performed By: #### C BC #### [facility] [address] [place] [address] Dr. Ginger Keane Eosinophils/100 WBC (Bld) 2.9 % Normal 0.9-7.0 [facility] Comment on above: Performed By: #### C BC #### [facility] [address] [place] [address] Dr. Ginger Keane Erythrocyte distribution wid th (RBC) [Ratio] 12.9 % Normal 11.0-15.0 [facility] Comment on above: Performed By: #### C BC #### [facility] [address] [place] [address] Dr. Ginger Keane Hematocrit (Bld) [Volume fraction] 44.3 % Normal 4 2.0-54.0 [facility] Comment on above: Performed By: #### C BC #### [facility] [address] [place] [address] Dr. Ginger Keane Hemoglobin (Bld) [Mass/Vol] 15.6 g/dL Normal 14.0-18. 0 [facility] Comment on above: Performed By: #### C BC #### [facility] [address] [place] [address] Dr. Ginger Keane IG # 0.01 10e3/ul Normal 0.00-0.03 [facility] Comment on above: Performed By: #### C BC #### [facility] [address] [place] [address] Dr. Ginger Keane IG % 0.1 % Normal 0.0-0.5 [facility] Comment on above: Performed By: #### C BC #### [facility] [address] [place] [address] Dr. Ginger Keane LYMPH # 2.9 103/ul Normal 1.2-3.8 [facility] Comment on above: Performed By: #### C BC #### [facility] [address] [place] [address] Dr. Ginger Keane Lymphocytes/100 WBC (Bld) 34.1 % Normal 20.5-60.0 [facility] Comment on above: Performed By: #### C BC #### [facility] [address] [place] [address] Dr. Ginger Keane MANUAL DIFF REQ NO Normal [facility] Comment on above: Performed By: #### C BC #### [facility] [address] [place] [address] Dr. Ginger Keane MCH (RBC) [Entitic mass] 32.8 pg Normal 25.9-34.0 [facility] Comment on above: Performed By: #### C BC #### [facility] [address] [place] [address] Dr. Ginger Keane MCHC (RBC) [Mass/Vol] 35.2 g/dL Normal 29.9-35.2 [facility] Comment on above: Performed By: #### C BC #### [facility] [address] [place] [address] Dr. Ginger Keane MCV (RBC) [Entitic vol] 93.3 fL Normal 80.0-94.0 [facility] Comment on above: Performed By: #### C BC #### [facility] [address] [place] [address] Dr. Ginger Keane MONO # 0.6 103/ul Normal 0.3-0.8 [facility] Comment on above: Performed By: #### C BC #### [facility] [address] [place] [address] Dr. Ginger Keane Monocytes/100 WBC (Bld) 7.5 % Normal 1.7-12.0 [facility] Comment on above: Performed By: #### C BC #### [facility] [address] [place] [address] Dr. Ginger Keane NEUT # 4.6 103/ul Normal 1.4-6.5 [facility] Comment on above: Performed By: #### C BC #### [facility] [address] [place] [address] Dr. Ginger Keane Neutrophils/100 WBC (Bld) 54.8 % Normal 43.0-75.0 [facility] Comment on above: Performed By: #### C BC #### [facility] [address] [place] [address] Dr. Ginger Keane Platelet mean volume (Bld) [Entitic vol] 9.7 fL Normal 9.5-13.5 [facility] Comment on above: Performed By: #### C BC #### [facility] [address] [place] [address] Dr. Ginger Keane PLT 260 103/ul Normal 150-450 [facility] Comment on above: Performed By: #### C BC #### [facility] [address] [place] [address] Dr. Ginger Keane RBC 4.75 106/ul Normal 4.70-6.10 [facility] Comment on above: Performed By: #### C BC #### [facility] [address] [place] [address] Dr. Ginger Keane WBC 8.4 103/ul Normal 4.0-11.0 [facility] Comment on above: Performed By: #### C BC #### [facility] [address] [address] [address] Ginger Keane LIPID PROFILEon 05-15-2022 CHOL-HDL RATIO NORM SEE BELOW Normal [facility] Comment on above: Result Comment: 3.3 - 4.4 LOW RISK 4.4 - 7.1 AVERAGE RISK 7.1 - 11.0 MODERATE RISK >11.0 HIGH RISK Performed By: #### B MP, LIPID, ALT #### [facility] [address] [address] [address] Ginger Keane Cholesterol [Mass/Vol] 119 mg/dL Normal <=200 [facility] Comment on above: Performed By: #### B MP, LIPID, ALT #### [facility] [address] [address] [address] Ginger Keane Cholesterol in HDL [Mass/Vol] 37 mg/dL Critically low 40 -60 [facility] Comment on above: Performed By: #### B MP, LIPID, ALT #### [facility] [address] [address] [address] Ginger Keane Cholesterol in LDL [Mass/Vol] 35.2 mg/dL Normal [facility] Comment on above: Performed By: #### B MP, LIPID, ALT #### [facility] [address] [address] [address] Ginger Keane Cholesterol.total/Cholestero l in HDL [Mass ratio] 3.2 {ratio} Normal [facility] Comment on above: Performed By: #### B MP, LIPID, ALT #### [facility] [address] [address] [address] Ginger Keane HDL NORMAL > or = 60 mg/dl - LO W CARDIOVASCULAR RISK <40 mg/dl - HIGH CARDIOVASCULAR RISK Normal [facility] Comment on above: Performed By: #### B MP, LIPID, ALT #### [facility] [address] [address] [address] Ginger Keane LDL CALC NORMAL SEE BELOW Normal [facility] Comment on above: Result Comment: <100 mg/dl OPTIMAL 100 - 129 mg/dl NEAR OR ABOVE OPTIMAL 130 - 159 mg/dl BORDERLINE HIGH 160 - 189 mg/dl HIGH >190 mg/dl VERY HIGH Performed By: #### B MP, LIPID, ALT #### [facility] [address] [address] [address] Ginger Keane Triglyceride [Mass/Vol] 234 mg/dL Critically high <=150 [facility] Comment on above: Performed By: #### B MP, LIPID, ALT #### [facility] [address] [address] [address] Ginger Keane VLDL CALC 46.8 mg/dL Normal [facility] Comment on above: Performed By: #### B MP, LIPID, ALT #### [facility] [address] [address] [address] Ginger Keane PROF CHEM 8 (BAS METB)on Anion gap [Moles/Vol] 13.3 mmol/L Normal [facility] Comment on above: Performed By: #### B MP, LIPID, ALT #### [facility] [address] [place] [address] Dr. Ginger Keane Calcium [Mass/Vol] 8.7 mg/dL Normal 8.5-10.1 [facility] Comment on above: Performed By: #### B MP, LIPID, ALT #### [facility] [address] [place] [address] Dr. Ginger Keane Chloride [Moles/Vol] 102 mmol/L Normal 98-107 [facility] Comment on above: Performed By: #### B MP, LIPID, ALT #### [facility] [address] [address] [address] Ginger Keane CO2 [Moles/Vol] 26.8 mmol/L Normal 21.0-32.0 [facility] Comment on above: Performed By: #### B MP, LIPID, ALT #### [facility] [address] [place] [address] Dr. Ginger Keane Creatinine [Mass/Vol] 0.92 mg/dL Normal 0.70-1.30 [facility] Comment on above: Performed By: #### B MP, LIPID, ALT #### [facility] [address] [address] [address] Ginger Keane EGFR-AF CUBAN >60 Normal >=60 [facility] Comment on above: Performed By: #### B MP, LIPID, ALT #### [facility] [address] [place] [address] Dr. Ginger Keane EGFR-NON AF CUBAN >60 Normal >=60 [facility] Comment on above: Performed By: #### B MP, LIPID, ALT #### [facility] [address] [place] [address] Dr. Ginger [place] Glucose [Mass/Vol] 161 mg/dL Critically high 74-106 T [facility] Comment on above: Performed By: #### B MP, LIPID, ALT #### [facility] [address] [place] [address] Dr. Ginger Keane Potassium [Moles/Vol] 4.1 mmol/L Normal 3.5-5.1 [facility] Comment on above: Performed By: #### B MP, LIPID, ALT #### [facility] [address] [place] [address] Dr. Ginger Keane Sodium [Moles/Vol] 138 mmol/L Normal 136-145 [facility] Comment on above: Performed By: #### B MP, LIPID, ALT #### [facility] [address] [place] [address] Dr. Ginger Keaen Urea nitrogen [Mass/Vol] 13.0 mg/dL Normal 7.0-18.0 [facility] Comment on above: Performed By: #### B MP, LIPID, ALT #### [facility] [address] [place] [address] Dr. Ginger Keane Urea nitrogen/Creatinine [Mass ratio] 14.1 mg/mg Normal [facility] Comment on above: Performed By: #### B MP, LIPID, ALT #### [facility] [address] [place] [address] Dr. Ginger Keane [facility] 05-15-2022 ALT [Catalytic activity/Vol] 26 U/L Normal 16-63 [facility] Comment on above: Performed By: #### B MP, LIPID, ALT #### [facility] [address] [address] [address] Ginger Keane GLYCOHEMOGLOBIN A1Con 2021 ADA RECOMMENDATION SEE BELOW Normal [facility] Comment on above: Result Comment: ADA RECOMMENDED LIMIT 4.0 - 6.0 ADA THERAPEUTIC TARGET < 7.0 ACTION SUGGESTED > 7.0 Performed By: #### D ATA1C #### [facility] [address] [address] [address] Ginger Keane Glucose [Mass/Vol] 146 mg/dL Normal [facility] Comment on above: Performed By: #### D ATA1C #### [facility] [address] [place], [place] [address] Dr. Ginger Keane HbA1c (Bld) [Mass fraction] 6.7 % Critically high 4.5 -6.2 [facility] Comment on above: Performed By: #### D ATA1C #### [facility] [address] [address] [address] Ginger Keane Vital Signs Date Time Vital Sign Value Performing Clinician Facility 08-12-2023 11:00-0500 Body height 180.34 cm Vernon [facility] Other [facility] Other 08-12-2023 11:00-0500 Body mass index (BMI) [Ratio] 25.55 kg/m2 [facility] Other [facility] Other 08-12-2023 11:00-0500 Body weight 83.1 kg Vernon [employer] Other [facility] Other 08-12-2023 11:00-0500 Diastolic blood pressure 88 mm[Hg] [facility] Other [facility] Other 08-12-2023 11:00-0500 Respiratory rate 20 /min [facility] Other [facility] Other 08-12-2023 11:00-0500 SaO2% (BldA) [Mass fraction] 94 % [facility] Other [facility] Other 08-12-2023 11:00-0500 Systolic blood pressure 120 mm[Hg] Vernon Ball Other [facility] Other 07-10-2023 11:45-0500 Body height 180.34 cm Vernon Ball Other [facility] Other 07-10-2023 11:45-0500 Body mass index (BMI) [Ratio] 26.22 kg/m2 Vernon Ball Other [facility] Other 07-10-2023 11:45-0500 Body weight 85.28 kg Vernon Ball Other [facility] Other 07-10-2023 11:45-0500 Diastolic blood pressure 75 mm[Hg] Vernon Ball Other [facility] Other 07-10-2023 11:45-0500 Respiratory rate 16 /min Vernon Ball Other [facility] Other 07-10-2023 11:45-0500 Systolic blood pressure 129 mm[Hg] Vernon Ball Other [facility] Other 07-04-2023 08:03-0400 Diastolic blood pressure 93 mm[Hg] DO Vernon Ball Work Phone: [facility] 07-04-2023 08:03-0400 Heart rate 89 /min DO Vernon Ball Work Phone: [facility] 07-04-2023 08:03-0400 Respiratory rate 16 /min DO Vernon Ball Work Phone: [facility] 07-04-2023 08:03-0400 SaO2% (BldA) [Mass fraction] 93 % DO Vernon Ball Work Phone: [facility] 07-04-2023 08:03-0400 Systolic blood pressure 140 mm[Hg] DO Vernon Ball Work Phone: [facility] 07-04-2023 06:47-0400 Body height 180.34 cm DO Vernon Ball Work Phone: [facility] 07-04-2023 06:47-0400 Body temperature 98.2 [degF] DO Vernon Ball Work Phone: [facility] 07-04-2023 06:47-0400 Body weight 86.18 kg DO Vernon Ball Work Phone: [facility] 07-02-2023 13:45-0400 Body height 180.34 cm Erickson Nascimento Other [facility] Other 07-02-2023 13:45-0400 Body mass index (BMI) [Ratio] 26.5 kg/m2 Erickson Nascimento Other [facility] Other 07-02-2023 13:45-0400 Body weight 86.18 kg Erickson Pily Other [facility] Other 05-20-2023 10:00-0400 Body height 180.34 cm Vernon Ball Other [facility] Other 05-20-2023 10:00-0400 Body mass index (BMI) [Ratio] 26.64 kg/m2 Vernon Ball Other [facility] Other 05-20-2023 10:00-0400 Body weight 86.64 kg Vernon Ball Other [facility] Other 05-20-2023 10:00-0400 Diastolic blood pressure 74 mm[Hg] Vernon Ball Other [facility] Other 05-20-2023 10:00-0400 Respiratory rate 12 /min Vernon Ball Other [facility] Other 05-20-2023 10:00-0400 Systolic blood pressure 117 mm[Hg] Vernon Ball Other [facility] Other 02-17-2023 10:30-0400 Body height 180.34 cm Vernon Ball Other [facility] Other 02-17-2023 10:30-0400 Body mass index (BMI) [Ratio] 27.58 kg/m2 Vernon Ball Other [facility] Other 02-17-2023 10:30-0400 Body weight 89.72 kg Vernon Ball Other [facility] Other 02-17-2023 10:30-0400 Diastolic blood pressure 78 mm[Hg] Vernon Ball Other [facility] Other 02-17-2023 10:30-0400 Respiratory rate 12 /min Vernon Ball Other [facility] Other 02-17-2023 10:30-0400 Systolic blood pressure 128 mm[Hg] Vernon Ball Other [facility] Other 11-18-2022 11:30-0400 Body height 180.34 cm Vernon Ball Other [facility] Other 11-18-2022 11:30-0400 Body mass index (BMI) [Ratio] 27.42 kg/m2 Vernon Ball Other [facility] Other 11-18-2022 11:30-0400 Body weight 89.18 kg Vernon Ball Other [facility] Other 11-18-2022 11:30-0400 Diastolic blood pressure 70 mm[Hg] Vernon Greene Other [facility] Other 11-18-2022 11:30-0400 Respiratory rate 12 /min Vernon Greene Other [facility] Other 11-18-2022 11:30-0400 Systolic blood pressure 122 mm[Hg] Vernon Greene Other [facility] Other Encounters Encounter Date Encounter Type Care Provider Facility Start: 08-12-2023 End: 08-12-2023 ambulatory Vernon Greene Other [facility] Other Start: 08-12-2023 Transitional care [facility] 14 day discharge Vernon Greene [facility] Start: 08-06-2023 End: 08-06-2023 ambulatory Vernon Greene Other [facility] Other Start: 08-06-2023 Telephone encounter Vernon Greene [facility] Start: 08-01-2023 End: 08-01-2023 ambulatory Vernon Greene Other [facility] Other Start: 08-01-2023 Telephone encounter Vernon Greene [facility] Start: 07-30-2023 End: 07-30-2023 ambulatory Vernon Greene Other [facility] Other Start: 07-30-2023 Telephone encounter Vernon Greene [facility] Start: 07-16-2023 End: 07-16-2023 ambulatory Navneet Puga Other [facility] Other Start: 07-16-2023 Telephone encounter Navneet Ramires [employer] Start: 07-13-2023 End: 07-13-2023 ambulatory Vernon Greene Other [facility] Other Start: 07-13-2023 Telephone encounter Vernon Greene [facility] Start: 07-10-2023 End: 07-10-2023 ambulatory Vernon Greene Other [facility] Other Start: 07-10-2023 Office outpatient vi sit 25 minutes Vernon Greene [facility] Start: 07-10-2023 Telephone encounter Vernon Greene [facility] Start: 07-04-2023 Telephone encounter Vernon Greene [facility] Start: 07-04-2023 End: 07-04-2023 ambulatory Erickson Nascimento Facility:[facility] Start: 07-04-2023 End: 07-04-2023 Admission to same day surgery center DO Vernon Greene Work Phone: [facility] Start: 07-04-2023 End: 07-04-2023 ambulatory DO Vernon Greene Work Phone: [facility] Work Phone: Start: 07-02-2023 End: 07-02-2023 ambulatory Erickson Nascimento Other [facility] Other Start: 07-02-2023 Office outpatient vi sit 25 minutes [facility] Start: 05-21-2023 End: 05-21-2023 ambulatory Vernon Greene Other [facility] Other Start: 05-21-2023 Telephone encounter Vernon KANG [facility] Start: 05-20-2023 End: 05-20-2023 ambulatory Vernon Greene Other [facility] Other Start: 05-20-2023 Patient encounter procedure Vernon Greene [facility] Start: 02-27-2023 End: 02-27-2023 ambulatory Erickson Nascimento Other [facility] Other Start: 02-27-2023 Telephone encounter Erickson KANG [facility] Start: 02-26-2023 End: 02-26-2023 ambulatory Erickson Nascimento Facility:[facility] Start: 02-26-2023 End: 02-26-2023 Patient encounter procedure DO Erickson Nascimento Work Phone: [facility] Start: 02-26-2023 End: 02-26-2023 ambulatory DO Erickson Nascimento Work Phone: [facility] Work Phone: Start: 02-26-2023 Office outpatient ne w 45 minutes Erickson Pily [facility] Start: 02-17-2023 End: 02-17-2023 ambulatory Vernon Ball Other [facility] Other Start: 02-17-2023 Office outpatient vi sit 25 minutes Vernon Ball [facility] Start: 01-09-2023 End: 01-09-2023 ambulatory Vernon Ball Other [facility] Other Start: 01-09-2023 Telephone encounter Vernon Ball [facility] Start: 12-24-2022 End: 12-24-2022 ambulatory Vernon Ball Other [facility] Other Start: 12-24-2022 Telephone encounter Vernon Ball [facility] Start: 11-26-2022 End: 11-26-2022 ambulatory Vernon Ball Other [facility] Other Start: 11-26-2022 Telephone encounter Vernon Ball [facility] Start: 11-25-2022 End: 11-26-2022 ambulatory VERNON BALL Facility:[facility] Start: 11-18-2022 End: 11-18-2022 ambulatory Vernon Ball Other [facility] Other Start: 11-18-2022 Office outpatient vi sit 25 minutes Vernon Ball [facility] Start: 11-15-2022 End: 11-16-[address] NONE LISTED REQUEST Facility:[facility] Start: 11-07-2022 End: 11-07-2022 ambulatory Vernon Ball Other [facility] Other Start: 11-07-2022 Telephone encounter Vernon [facility] Start: 08-08-2022 End: 08-09-2022 ambulatory VERNON JC Facility:[facility] Start: 05-15-2022 End: 05-16-2022 ambulatory VERNON GREENE Facility:[facility] Start: 05-09-2022 End: 05-10-2022 ambulatory NONE LISTED REQUEST Facility:[facility] Procedures Date Procedure Procedure Detail Performing Clinician Start: 07-04-2023 Open reduction of fracture with internal fixation DO Vernon Greene Work Phone: Start: 02-26-2023 Plain X-ray of left elbow DO Erickson Nascimento Work Phone: Start: 05-15-2022 PSA screening VERNON GREENE Comment on above: Performed By: #### P SASC #### [facility] [address] [place] [address] Dr. Ginger Keane Plan of Treatment Date Care Activity Detail Author Start: 07-04-2023 [facility] Patient referral [facility] Work Phone: Immunizations Immunization Date Immunization Notes Care Provider Izabel ernandez 05-25-2018 pneumococcal polysaccharide vaccine, 23 valent Vernon Greene Other [facility] Other 07-01-2017 diphtheria, tetanus toxoids and acellular pertussis vaccine, unspecified formulation Vernon Greene Other [facility] Other 07-01-2017 pneumococcal conjuga te vaccine, 13 valent Vernon Greene Other [facility] Other Payers Date Payer Category Payer Medicare [id number] 2. [id number] 1958 Self-pay 1950 Unknown [id number] 1950 Unknown [id number] Unknown [id number] [id number] [id number] Unknown [id number] [id number] [id number] Unknown [id number] [id number] [id number] Unknown [id number] 2.16.8 [id number] Unknown [id number] 2.16.8 [id number] Social History Date Type Detail Facility Sex Assigned At [facility] Other Start: 1950 Sex Assigned At Male F [facility] Start: 07-04-2023 Tobacco smoking stat [facility] Ex-smoker (finding) [facility] Goals Date Patient Goal Desired Activity /State Clinical Notes 11-18-2022 to 08-12-2023 Note Date & Type Note Facility 08-12-2023 Evaluation note Encounter Date Diagnosis Assessment Notes Aug, COVID-19 (ICD-10 - U07.1) Continue isolation for 10 days. If he is afebrile and feeling better w/ resolving symptoms, can stop wearing masks. He has natural immunity for now but if favors vaccination, would revaccinate in 3 mo. Aug, Pneumonia due to Coronavirus disease 2019 (ICD-10 - J12.82) Cough and deep breathing exercises. Continue Albuterol MDI 3-4x daily to mobilize secretions. Activity as tolerated. Aug, Chronic obstructive pulmonary disease with (acute) exacerbation (ICD-10 - J44.1) Finish steroids. Continue Albuterol every 4 hours as needed to mobilize secretions. Push fluids, cough/deep breathing exercises. Aug, Hypoxia (ICD-10 - R09.02) Continue supplemental oxygen to maintain Psat > 90% Once Psat remains > 90% w/ activity, can begin check Psat on RA. Goal is Psat > 90% Removal of oxygen at night should be last task. Aug, ASHD (arteriosclerot ic heart disease) (ICD-10 - I25.10) This patient is stable without activity related CP, dyspnea or lightheadedness. They are instructed to continue exercise and AHA diet plan. Continue secondary prevention measures. Aug, Controlled type 2 diabetes mellitus with hyperglycemia, without long-term current use of insulin (ICD-10 - E11.65) This patient is following a comprehensive diabetic treatment plan. They are checking their feet daily for calluses and nonhealing ulcers. They are being seen for yearly dilated eye examinations. Goals: SBP less than 130, LDL less than 100, FBS less than 140, A1C less than 7%. They are checking their BS daily, will which are reviewed at the office visit. Continue regular routine monitoring of A1C,] Microalbumin, Dilated eye exam and Foot exam BS running slightly elevated due to steroid use. - this will gradually improve over time once off steroids Aug, Nicotine dependence, cigarettes, in remission (ICD-10 - F17.211) Age started 17 1 ppd Age quit 52 Continue abstinence Likely contributes to his COVID related lung infection and hypoxia. MDI and oxygen for now. [facility] Other 12-01-2023 Evaluation note* Encounter Date Diagnosis Assessment Notes Treatment Notes Treatment Clinical Notes Aug, Weight loss (ICD-10 - R63.4) [facility] Other 11-09-2023 Evaluation note* Encounter Date Diagnosis Assessment Notes Treatment Notes Treatment Clinical Notes Jul, Unexplained weight loss (ICD-10 - R63.4) Concerning finding w/o obvious etiology. Denies loss of appetite but doesn't eat same amounts w/o stated reason. Recurrent heartburn, distal esphageal dysphagia and elevated lipase. CT abdomen to r/o hepatic, esphageal, gastric and pancreatic malignancy. Check CMP, CBC Jul, Esophageal dysphagia (ICD-10 - R13.19) Soft diet and continue daily PPI. EGD following CT results to evaluate for esophagitis and distal esophageal obstruction. Jul, Epigastric discomfor t (ICD-10 - R10.13) Continue PPI and follow soft diet plan. Schedule EGD following CT results. Jul, ASHD (arteriosclerot ic heart disease) (ICD-10 - I25.10) This patient is stable without activity related CP, dyspnea or lightheadedness. They are instructed to continue exercise and AHA diet plan. Continue secondary prevention measures. Jul, Controlled type 2 diabetes mellitus with hyperglycemia, without long-term current use of insulin (ICD-10 - E11.65) This patient is following a comprehensive diabetic treatment plan. They are checking their feet daily for calluses and nonhealing ulcers. They are being seen for yearly dilated eye examinations. Goals: SBP less than 130, LDL less than 100, FBS less than 140, A1C less than 7%. They are checking their BS daily, will which are reviewed at the office visit. Continue regular routine monitoring of A1C,] Microalbumin, Dilated eye exam and Foot exam Jul, Essential hypertensi on (ICD-10 - I10) This patient is instructed to consume a healthy, low-fat, low-salt diet. They are also encouraged to continue exercise to achieve/maintain a normal BMI. Jul, Gastroesophageal reflux disease with esophagitis without hemorrhage (ICD-10 - K21.00) Diet instructions: Smaller portions, avoid eating and laying flat, avoid eating or drinking prior to bedtime. Weight loss. Jul, Serum lipase elevati on (ICD-10 - R74.8) Not elevated to level consistent w/ acute pancreatitis. Broad differential: - T2DM - pancreatic tumors or inflammation - duodenal ulcer Check CT abdomen Repeat Lipase Jul, Colon cancer screeni ng (ICD-10 - Z12.11) Refer for screening colonoscopy. No change in appetite or bowel habits. No melena or hematochezia [facility] Other 11-01-2023 Evaluation note* Encounter Date Diagnosis Assessment Notes Treatment Notes Treatment Clinical Notes Jul, Left elbow pain (ICD-10 - M25.522) Jul, Olecranon bursitis, left elbow (ICD-10 - M70.22) Vinay returns with left olecranon bursitis and left elbow mass. At this juncture we have discussed the findings and diagnosis as well as personally reviewed appropriate imaging and performed interpretation of related testing and examination with the patient in office today. He continues to be bothered with this mass that is distal to the olecranon bursa. He would like to have this removed. We will plan for removal under local anesthetic. Unsure of masses etiology and we will send to pathology afterwards. Vinay presents with left elbow mass. At this juncture we have discussed the findings and diagnosis as well as reviewed appropriate imaging and performed interpretation of testing. Surgical intervention is recommended. Prior medical notes and history have been reviewed. Surgical versus non-operative management have been discussed in detail and non-operative management was given as an option. The risks of surgical intervention were given. Pre-operative optimization will be done prior to surgical procedure to limit emeli-operative risks. I have discussed the planned procedure, how and who performs the procedure, and the personnel involved. Cardiovascular, pulmonary, and other life threatening episodes can occur during surgery although there is a low risk of these happening. Surgical risks including bleeding, neurovascular injury, wound closure problems and infection were discussed. Emeli-operative risks including infection, bleeding, wound healing problems, and need for further surgery were discussed. It was discussed that there is a possibility of blood transfusion with any surgical procedure and the risks involved in receiving a blood transfusion. Possibility of, and need for, future bracing or DME use, physical or occupational therapy, mental therapy, rehabilitation, pain management and need for secondary procedures was discussed. I have warned against smoking and the use of tobacco products due to the risks associated with them, in particular, poor healing. I have advised against the terminal superintendent use of narcotic pain medication. I have advised to follow all post-operative instructions in order to obtain the best outcome. Informed consent has been verbally affirmed and signed as indicated. Plan for mass excision 07/04/2023, local only. No surgical testing at this time. We will send the mass for pathology. Patient to follow-up 1 week after surgery The patient has been involved in our cooperative treatment plan and agrees to move forward with treatment at this time. Today, we disused the removal of a mass of the left elbow. Patient is willing to proceed with the procedure. We will get patient set up. Jul, Elbow mass, left (ICD-10 - R22.32) [facility] Other 09-19-2023 Evaluation note* Encounter Date Diagnosis Assessment Notes Treatment Notes Treatment Clinical Notes May, Medicare annual wellness visit, initial (ICD-10 - Z00.00) Personalized health advice was given to the beneficiary including a written plan for screenings discussed and provided. Advanced care planning reviewed and/or information given as requested. Additional counseling was provided here today in regards to, [ ]. The above visit was performed by [ ] under direct supervision of [ ]. Document reviewed and amended by provider signed below. May, ASHD (arteriosclerotic heart disease) (ICD-10 - I25.10) This patient is stable without activity related CP, dyspnea or lightheadedness. They are instructed to continue exercise and AHA diet plan. Continue secondary prevention measures. May, Controlled type 2 diabetes mellitus with hyperglycemia, without long-term current use of insulin (ICD-10 - E11.65) This patient is following a comprehensive diabetic treatment plan. They are checking their feet daily for calluses and nonhealing ulcers. They are being seen for yearly dilated eye examinations. Goals: SBP less than 130, LDL less than 100, FBS less than 140, AC and A1C less than 7%. They are checking their BS daily, will which are reviewed at the office visit. Continue regular routine monitoring of A1C,] Microalbumin, Dilated eye exam and Foot exam May, Essential hypertension (ICD-10 - I10) This patient is instructed to consume a healthy, low-fat, low-salt diet. They are also encouraged to continue exercise to achieve/maintain a normal BMI. May, Hyperlipidemia type II (ICD-10 - E78.01) Instructed on diet and exercise with continued statin therapy.Discussed the beneficial effects of lowering cholesterol in reducing the risk for cerebrovascular and cardiovascular disease. May, Gastroesophageal reflux disease with esophagitis without hemorrhage (ICD-10 - K21.00) Diet instructions: Smaller portions, avoid eating and laying flat, avoid eating or drinking prior to bedtime. Weight loss. May, Nicotine dependence, cigarettes, in remission (ICD-10 - F17.211) Age started 17 1 ppd Age quit 52 Continus abstinence May, High risk medication use (ICD-10 - Z79.899) May, Screening PSA (prostate specific antigen) (ICD-10 - Z12.5) [facility] Other 06-28-2023 Evaluation note* Encounter Date Diagnosis Assessment Notes Treatment Notes Treatment Clinical Notes Jan, Left elbow pain (ICD-10 - M25.522) Jan, Olecranon bursitis, left elbow (ICD-10 - M70.22) Vinay presents with left olecranon bursitis. At this juncture we have discussed the findings and diagnosis as well as personally reviewed appropriate imaging and performed interpretation of related testing and examination with the patient in office today. Prior medical notes from Dr. Flower and history have been reviewed. Today he opts for aspiration. Today under sterile technique the patient's left olecranon bursa was aspirated revealing 10 cc of bloody fluid. A 1/1 cc injection of Kenalog/Marcaine was then given. Compressive wrap was applied. Continue compression over the next several days. Ice to the area. Continue to monitor. Follow-up as needed The patient has been involved in our cooperative treatment plan and agrees to move forward with treatment at this time. Vinay presents with mass to the left elbow. This appears to be olecranon bursitis. I recommend aspiration and cortisone injection today. Patient voices understanding and is agreeable to treatment plan. Patient was prepped under sterile conditions. Patient was then aspirated of approximately 8 mls of bloody appearing fluid under sterile conditions. Dressing was applied to the site. Patient may follow up as needed. Jan, Other See orders for this visit as documented in the electronic medical record. [facility] Other 06-19-2023 Evaluation note* Encounter Date Diagnosis Assessment Notes Treatment Notes Treatment Clinical Notes Jan, ASHD (arteriosclerotic heart disease) (ICD-10 - I25.10) This patient is stable without activity related CP, dyspnea or lightheadedness. They are instructed to continue exercise and AHA diet plan. Jan, Controlled type 2 diabetes mellitus with hyperglycemia, without long-term current use of insulin (ICD-10 - E11.65) This patient is following a comprehensive diabetic treatment plan. They are checking their feet daily for calluses and nonhealing ulcers. They are being seen for yearly dilated eye examinations. Goals: SBP less than 130, LDL less than 100, FBS less than 140, AC and A1C less than 7%. They are checking their BS daily, will which are reviewed at the office visit. Continue regular routine monitoring of A1C,] Microalbumin, Dilated eye exam and Foot exam Jan, Essential hypertension (ICD-10 - I10) This patient is instructed to consume a healthy, low-fat, low-salt diet. They are also encouraged to continue exercise to achieve/maintain a normal BMI. Jan, Hyperlipidemia type II (ICD-10 - E78.01) Instructed on diet and exercise with continued statin therapy.Discussed the beneficial effects of lowering cholesterol in reducing the risk for cerebrovascular and cardiovascular disease. Jan, Gastroesophageal reflux disease with esophagitis without hemorrhage (ICD-10 - K21.00) Diet instructions: Smaller portions, avoid eating and laying flat, avoid eating or drinking prior to bedtime. Weight loss. Monitor for now, symptoms improved w/ 12 wk course of PPI Jan, Nicotine dependence, cigarettes, in remission (ICD-10 - F17.211) Age started 17 1 ppd Age quit 52 Quit > 15 years ago No surveillance recommended Jan, Olecranon bursitis o f left elbow (ICD-10 - M70.22) Aspirated bloody fluid followed by compression. Recurs and bothersome to the patient. I do not recommend repeat aspiration, refer to Orthopedics Jan, Subcutaneous nodule (ICD-10 - R22.9) Developed in the past 4 wks. Nontender and mobile. Refer to [facility] [place] [facility] Other 03-27-2023 NotePROCEDURE: XR KNEE LT 3V HISTORY: Pain of left knee joint COMPARISON: None. FINDINGS: BONES:Tiny degenerative osteophyte along the inferior margin of the patella articular surface. No fracture, dislocation, or bone lesion. No significant narrowing of the joint spaces involving all 3 compartments.. SOFT TISSUES:No visible soft tissue swelling. EFFUSION:None visible. OTHER: Negative. IMPRESSION: 1. No acute bone abnormality or joint effusion. 2. Very minimal degenerative changes. Electronically authenticated by: VINNY MURILLO Date: 2022-11-25 10:55[facility]03-20-2023 Evaluation note* Encounter Date Diagnosis Assessment Notes Treatment Notes Treatment Clinical Notes Oct, ASHD (arteriosclerot ic heart disease) (ICD-10 - I25.10) This patient is stable without activity related CP, dyspnea or lightheadedness. They are instructed to continue exercise and AHA diet plan. Oct, Controlled type 2 diabetes mellitus with hyperglycemia, without long-term current use of insulin (ICD-10 - E11.65) This patient is following a comprehensive diabetic treatment plan. They are checking their feet daily for calluses and nonhealing ulcers. They are being seen for yearly dilated eye examinations. Goals: SBP less than 130, LDL less than 100, FBS less than 140, AC and A1C less than 7%. They are checking their BS daily, will which are reviewed at the office visit. A1C: < 6% Oct, Essential hypertensi on (ICD-10 - I10) This patient is instructed to consume a healthy, low-fat, low-salt diet. They are also encouraged to continue exercise to achieve/maintain a normal BMI. Oct, Hyperlipidemia type II (ICD-10 - E78.01) Diet and exercise with continued statin therapy. Oct, Nicotine dependence, cigarettes, in remission (ICD-10 - F17.211) Oct, Other chronic pain (ICD-10 - G89.29) Oct, Pain in left knee (ICD-10 - M25.562) Quad exercises, ice, Voltaren Gel and Tylenol. XR Oct, Gastroesophageal reflux disease with esophagitis without hemorrhage (ICD-10 - K21.00) Diet instructions: Smaller portions, avoid eating and laying flat, avoid eating or drinking prior to bedtime. Weight loss. Initiate PPI and if no improvement, EGD [id number] Other Evaluation noteNo InformationNort [facility] Other Evaluation noteNo assessment information available [facility] Work Phone: History general Narrative - Reported* Type Description Date Medical History Nonalcoholic fatty liver disease Medical History Hyperlipidemia type II Medical History Essential hypertension Medical History ASHD (arteriosclerotic heart dis ease) Medical History Controlled type 2 di abetes mellitus with hyperglycemia, without long-term current use of insulin Medical History High risk medication use Medical History Abdominal mass, unspecified abdo daniel location Medical History Lumbar spondylosis Medical History Epistaxis Medical History Benign non-nodular p rostatic hyperplasia with lower urinary tract symptoms Medical History Nicotine dependence, cigarettes, in remission Medical History Type 2 diabetes theron itus with diabetic polyneuropathy, without long-term current use of insulin Surgical History [facility] PTCA/STENT 2002 Surgical History [facility] 2007 Hospitalization History SEE SURGICAL HX [facility] Other History general Narrative - Reported* Type Description Date Medical History Nonalcoholic fatty liver disease Medical History Hyperlipidemia type II Medical History Essential hypertension Medical History ASHD (arteriosclerotic heart dis ease) Medical History Controlled type 2 di abetes mellitus with hyperglycemia, without long-term current use of insulin Medical History High risk medication use Medical History Abdominal mass, unspecified abdo daniel location Medical History Lumbar spondylosis Medical History Epistaxis Medical History Benign non-nodular p rostatic hyperplasia with lower urinary tract symptoms Medical History Nicotine dependence, cigarettes, in remission Medical History Type 2 diabetes theron itus with diabetic polyneuropathy, without long-term current use of insulin Surgical History [facility] PTCA/STENT 2002 Surgical History [facility] 2006 Surgical History Excision left elbow mass 3 Hospitalization History SEE SURGICAL [facility] Other Hospital Discharge instructions Additional Instructions Orthopedic Surgery discharge Instructions Keep your incision clean and dry and pad from any stressing or pressure. You may keep the incision covered with a Band-Aid if you wish. You may ice and elevate for the first 72 hours as you see fit. This can help with inflammation and swelling. You are weightbearing as tolerated and range of motion as tolerated to the left arm. Take medications as prescribed. You may take Motrin or Tylenol [id number] if you wish. Follow-up in [address] [facility] [address] [place], [place] [address] [phone] [facility] Work Phone: Reason for referral (narrative)* Reason *Waiting for appt Referral for recurrent left Olecranon bursa and SC nodule Diagnosis 1 Olecranon bursitis o f left elbow (M70.22) Diagnosis 2 Subcutaneous nodule (R22.9) Referral Organization [facility] Jc [facility]pton Referring Provider First Name Vernon Referring Provider Last Name Jc Referring Provider Specialty Internal Me dicine Referred Organization [facility] Referred Provider Erickson Nascimento Referred Address [address] [facility] [place],[phone] Referred Provider Specialty Orthopedic S urgery Referral Priority Routine General Notes Patient being referr ed for recurrent left Olecranon bursitis and SC nodule. Bloody fluid was aspirated from his bursa and despite use of compression, it has recurred. This is bothersome to the patient and would like further treatment. This is not tender, erythematous or warm. He has normal ROM of the left elbow Gilbertoherb Zara 02/17/2023 11:21:37 AM >received today, sent P2P [facility] Other Reason for referral (narrative)* Reason Referral for screeni ng colonoscopy and EGD Diagnosis 1 Unexplained weight l oss (R63.4) Diagnosis 2 Epigastric discomfor t (R10.13) Diagnosis 3 Serum lipase elevati on (R74.8) Diagnosis 4 Colon cancer screeni ng (Z12.11) Referral Organization [facility] Referring Provider First Name Vernon Referring Provider Last Name Jc Referring Provider Specialty Internal Me dicine Referred Organization [facility] Referred Provider Rochelle Woodard Referred Address [address] [place] [phone] Referred Provider Specialty Gastroentero logy Referral Priority Routine General Notes Mr. Gutierrez has nev er had a colonoscopy and he is being referred for a screening colonoscopy. He has no family hx of colon cancer or polyps. He denies change in appetite or bowel habits. He denies melena or hematochezia. He is also being referred for EGD due to recurrent heartburn, distal esophageal dysphagia, epigastric discomfort and unexplained weight loss. Clinical Notes CT abdomen and labs pending. Referral for EGD, colonoscopy isn't stat but would greatly appreciate if could be done within the next 2-3 wks. [facility] Other Summary Purpose Family History Relationship Condition Age at Onset Recorded Date/T radha Not Specified No pertinent family history Unknown father Malignant neoplasm Unknown Advance Directives Advance Directive Response Recorded Date/ Time Advance Directives No February 26 4:16pm Chief Complaint and Reason for Visit Chief Complaint M25.522 Chief Complaint Left Elbow Mass Additional Source Comments REASON FOR VISIT (unrecogniz ed section and content) prescription refillFOLLOW UP Xray resultsmessageomeprazoleCheck UpLeft Elbow Painortho referral updatewellnessLab ResultsRecheck Left ElbowNo InformationER follow upCT/labsER follow upOrdersMAIL PPWNo InformationCT/lab resultsTCMBS readingsTBH (unrecognized sect ion and content) No Status Records FoundNo Status Records Found INFORMATION SOURCE (unrecogn ized section and content) DATE CREATED AUTHOR 12/02/2022 [facility] DATE CREATED AUTHOR 'S JOY BANUELOS 07/16/2023 [facility] Care Teams (unrecognized sec tion and content) Team Status: Inactive Member Role Status Dates Erickson Nascimento , DO Attending Provider Active Team Status: Active Member Role Status Dates Vernon Greene , DO Primary Care Provider Active Team Status: Inactive Member Role Status Dates Erickson Nascimento , DO Attending Provider Active Vernon Greene , DO Primary Care Provider Active Goals (unrecognized section and content) Goals may be documented in a n alternate section FOR RECORDS PERTAINING TO PATIENTS WHO ARE OR HAVE BEEN ENROLLED IN A CHEMICAL DEPENDENCY/SUBSTANCEABUSE PROGRAM, SOME INFORMATION MAY BE OMITTED. This clinical summary was aggregated from multiple sources. Caution should be exercised in using it in the provision of clinical care. This summary normalizes information from multiple sources, and as a consequence, information in this document may materially change the coding, format and clinical context of patient data. In addition, data may be omitted in some cases. CLINICAL DECISIONS SHOULD BE BASED ON THE PRIMARY CLINICAL RECORDS. [employer] [facility] provides no warranty or guarantee of the accuracy or completeness of information in this document.
== END 2023-07-31 08:27 | disposition home or self-care (01) ==
LOC: CT 08:26
PROVIDERS: PCP Internal Medicine; Visit Provider Internal Medicine
DX: R63.4 Abnormal weight loss (principal); R13.19 Other dysphagia; R10.13 Epigastric pain; R74.8 Abnormal levels of other serum enzymes; R16.1 Splenomegaly, not elsewhere classified
CPT/HCPCS: 36415; 74177; 80053; 82150; 83690; 84443; 85025; Q9967

== ENCOUNTER 2023-08-02 15:09 | Inpatient (IN) | payer MEDICARE, SELFPAY ==
[2023-08-02] VITALS (21 sets, daily range): BP systolic 128–180; BP diastolic 84–89; PULSE 77–108; RESP 13–28; TEMP 36.8–37.1; O2SAT 79–99; BMI 25.8; BMI 25.7
--- NOTE | 2023-08-02 15:51 | XR_ITS ---
The [address] [address] Patient Name: VINAY SPAULDING MRN: [id number] date: 1950 Sex: M Assigned Patient Location: ER Current Patient Location: ER Accession/Order Number: [id number] Exam Date: 08/02/2023 16:00 Report Date: 08/02/2023 16:31 At the request of: MARCE FRANCISCO Procedure: XR chest 1V EXAM: XR chest 1V TECHNIQUE: Single AP view chest HISTORY: shortness of breath COMPARISON: 07/08/2023 FINDINGS: The heart is enlarged. Pulmonary venous congestion noted. Increased interstitial markings . Osseous structures are intact. XR/XR chest 1V IMPRESSION: Pulmonary venous congestion. Diffuse increased initial markings suggesting edema superimposed upon chronic interstitial lung disease. An atypical interstitial pneumonitis is not excluded. Electronically authenticated by: STEPHANE SIERRA Date: 08/02/2023 16:31
--- NOTE | 2023-08-02 15:51 | ECG_ITS ---
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
--- NOTE | 2023-08-02 15:54 | ED_ITS ---
HPI - SOB/Dyspnea General Chief Complaint: Shortness of Breath/Dyspnea Stated Complaint: sob Time Seen by Provider: 08/02/23 15:23 Source: patient Mode of arrival: walk-in History of Present Illness HPI Narrative: 2 weeks ago the patient developed nasal congestion, runny nose and cough. He told me I figured it was a cough . About a week later he developed chest congestion and shortness of breath that was initially only with exertion but then developed while at rest. His has asthma and has a home pulse oxymeter - the readings for him were 84-86% at rest and 74-76% with exertion. He came to the ED to be evaluated. He does not wear home oxygen. He also does not have prior diagnosis of COPD or asthma or other respiratory problem. He had AMI about 20 years ago and has never been diagnosed with CHF. No leg swelling or calf tenderness. Related Data Home Medications Medication Instructions Recorded Confirmed atorvastatin 80 mg tablet 80 mg PO DAILY 07/08/23 08/02/23 dapagliflozin propanediol 10 mg 10 mg PO DAILY 07/08/23 08/02/23 tablet (Farxiga) dulaglutide 3 mg/0.5 mL 3 mg subcut .weekly 07/08/23 08/02/23 subcutaneous pen injector ([facility]) losartan 25 mg tablet 25 mg PO DAILY 07/08/23 08/02/23 metformin 1,000 mg tablet 1,000 mg PO BID 07/08/23 08/02/23 metoprolol succinate 25 mg 25 mg PO DAILY 07/08/23 08/02/23 tablet,extended release 24 hr nitroglycerin 0.4 mg sublingual 0.4 mg sublingual Q5M PRN chest 07/08/23 08/02/23 tablet pain omeprazole 40 mg capsule,delayed 40 mg PO DAILY 07/08/23 08/02/23 release Allergies Allergy/AdvReac Type Severity Reaction Status Date / Time No Known Drug Allergies Allergy Verified 07/08/23 17:38 [facility] Medical History (Updated 08/02/23 @ 18:39 by Олег Araiza RN) Diabetes ?E11.9 - Type 2 diabetes mellitus without complications (ICD-10) Heartburn ?R12 - Heartburn (ICD-10) High cholesterol ?E78.00 - Pure hypercholesterolemia, unspecified (ICD-10) Hypertension ?I10 - Essential (primary) hypertension (ICD-10) Social History Smoking status: Former smoker Exam Narrative Exam Narrative: Nurses notes and vital signs reviewed and patient IS hypoxic. afebrile General: Well-appearing and in no apparent distress. Skin: Warm, dry, no pallor noted. Head: Normocephalic, atraumatic. Neck: Supple, non-tender. no cervical lymphadenopathy. No jugular venous distention. Eye: Pupils are equal, round and EOMI. No scleral icterus. Ears, Nose, Mouth, and Throat: TM are clear, no nasal mucosal hypertrophy. Oral mucosa is moist, no posterior oropharynx erythema, uvula is mid-line Cardiovascular: Tachycardia. Respiratory: No accessory muscle use or respiratory distress. Lungs are clear to auscultation, no wheezing, rales or rhonchi Musculoskeletal: normal ROM, no calf or popliteal tenderness, no lower extremity edema/swelling GI: Abdomen is soft, non-distended. Normal bowel sounds. No tenderness to palpation. No rebound, guarding, or rigidity noted. Neurological: A&O x4. No cranial nerve dysfunction observed. No truncal ataxia. Moves all extremities. Sensation intact. Psychiatric: Cooperative and interactive. Normal mood and affect. Constitutional Vital Signs, click to edit/add: Last Vital Signs Temp 98.2 F 08/02/23 15:13 Pulse 88 08/02/23 18:00 Resp 19 08/02/23 18:00 BP 139/84 08/02/23 15:13 Pulse Ox 98 08/02/23 18:00 O2 Del Method Nasal Cannula 08/02/23 16:08 O2 Flow Rate 2 08/02/23 16:08 Course Vital Signs Vital signs: Vital Signs Temperature 98.2 F 08/02/23 15:13 Pulse Rate 108 H 08/02/23 15:13 Respiratory Rate 24 08/02/23 15:13 Blood Pressure 139/84 08/02/23 15:13 Pulse Oximetry 79 L 08/02/23 15:13 Oxygen Delivery Method Room Air 08/02/23 15:13 Temperature 98.2 F 08/02/23 15:13 Pulse Rate 88 08/02/23 18:00 Respiratory Rate 19 08/02/23 18:00 Blood Pressure 139/84 08/02/23 15:13 Pulse Oximetry 98 08/02/23 18:00 Oxygen Delivery Method Nasal Cannula 08/02/23 16:08 Oxygen Delivery Flow Rate 2 08/02/23 16:08 MDM - SOB/Dyspnea MDM Narrative Medical decision making narrative: Patient is hypoxia with RA pulse ox 79%. Patient was placed on oxygen, monitoring analyst and EKG obtained. Blood drawn and sent for evaluation. chest x-ray obtained. COVID swab obtained - he is covid positive. He was sent for CT angio chest after renal function confirmed to be normal. WBC normal. BMP normal. Troponin and BNP negative. CT angio chest = no PE. Multifocal changes suggestive of Covid pneumonia The patient is hypoxic - requires oxygen to maintain appropriate O2 sat. Call placed to the telehospitalist to discuss admission. Dr Anastasia Doll and I discussed the case and the patient will be admitted to [facility], inpatient status. Lab Data Attestation: I reviewed the patient's lab results. Labs: Lab Results 08/02/23 08/02/23 Range/Units 15:27 16:02 WBC 7.4 (4.0-11.0) 10^3/uL RBC 4.33 L (4.70-6.10) 10^6/uL Hgb 13.2 L (14.0-18.0) g/dL Hct 39.5 L (42.0-54.0) % MCV 91.2 (80.0-94.0) fL MCH 30.5 (25.9-34.0) pg MCHC 33.4 (29.9-35.2) g/dL RDW 14.1 (11.0-15.0) % Plt Count 367 (150-450) 10^3/uL MPV 9.2 L (9.5-13.5) fL Neut % (Auto) 59.8 (43.0-75.0) % Lymph % (Auto) 25.8 (20.5-60.0) % [place] % (Auto) 11.1 (1.7-12.0) % Eos % (Auto) 2.3 (0.9-7.0) % Baso % (Auto) 0.7 (0.2-2.0) % Neut # (Auto) 4.4 (1.4-6.5) 10^3/uL Lymph # (Auto) 1.9 (1.2-3.8) 10^3/uL [place] # (Auto) 0.8 (0.3-0.8) 10^3/uL Eos # (Auto) 0.2 (0.0-0.7) 10^3/uL Baso # (Auto) 0.1 (0.0-0.1) 10^3/uL Abs Immat Gran (auto) 0.02 (0.00-0.03) 10^3/uL Imm/Tot Granulo (auto) 0.3 (0.0-0.5) % Sodium 138 (136-145) mmol/L Potassium 3.6 (3.5-5.1) mmol/L Chloride 102 (98-107) mmol/L Carbon Dioxide 26.9 (21.0-32.0) mmol/L Anion Gap 12.7 BUN 11.0 (7.0-18.0) mg/dL Creatinine 0.86 (0.70-1.30) mg/dL Est GFR ( Amer) >60 (>=60) Est GFR (Non-Af Amer) >60 (>=60) BUN/Creatinine Ratio 12.8 Glucose 113 H (74-106) mg/dL Calcium 8.2 L (8.5-10.1) mg/dL Troponin I High Sens 11.7 (4.0-76.1) pg/mL NT-Pro-B Natriuret Pep 517.0 (<=900.0) pg/mL SARS-CoV-2 (PCR) Positive A (NEGATIVE) Imaging Data Chest x-ray: Radiologist's impression: Patient Name: VINAY SPAULDING MRN: [id number] date: 1950 Sex: M Assigned Patient Location: ER Current Patient Location: ER Accession/Order Number: [id number] Exam Date: 08/02/2023 16:00 Report Date: 08/02/2023 16:31 At the request of: MARCE FRANCISCO Procedure: XR chest 1V EXAM: XR chest 1V TECHNIQUE: Single AP view chest HISTORY: shortness of breath COMPARISON: 07/08/2023 FINDINGS: The heart is enlarged. Pulmonary venous congestion noted. Increased interstitial markings . Osseous structures are intact. IMPRESSION: Pulmonary venous congestion. Diffuse increased initial markings suggesting edema superimposed upon chronic interstitial lung disease. An atypical interstitial pneumonitis is not excluded. Electronically authenticated by: STEPHANE SIERRA Date: 08/02/2023 16:31 CT scan - chest: Radiologist's impression: Patient Name: VINAY SPAULDING MRN: [facility]:[id number] date: 1950 Sex: M Assigned Patient Location: ER Current Patient Location: ER Accession/Order Number: [id number] Exam Date: 08/02/2023 17:00 Report Date: 08/02/2023 18:29 At the request of: MARCE FRANCISCO Procedure: CT angio chest EXAM: CT angio chest TECHNIQUE: CT angiogram with contrast performed of the chest including multi planar reformatted images and maximum intensity projection images. 3-D volume rendering created of the aorta and pulmonary arteries. Dose reduction techniques were achieved by using automated exposure control and/or adjustment of mA and/or kV according to patient size and/or use of iterative reconstruction technique. HISTORY: Covid, hypoxia COMPARISON: None. FINDINGS: Neck and Axilla: No lower neck or axillary lymphadenopathy. Mediastinum and Araceli: Mild mediastinal and bilateral hilar lymph node enlargement measuring up to 17 mm greatest short axis in the subcarinal space. The esophagus is grossly unremarkable without dilatation or gross mass lesion. Heart and Major Vessels: The heart appears unremarkable for size without pericardial effusion. The aorta and central pulmonary arteries are unremarkable for size.No pulmonary arterial filling defect to suggest acute pulmonary embolism. Lung [place]: Severe bilateral interstitial fibrotic changes. Patchy bilateral groundglass airspace opacities, left greater than right with intralobular septal thickening which may suggest edema. Pleural Spaces: No significant pleural effusion. No pneumothorax. Upper Abdomen: No acute abnormality identified. Chest Wall: Old incompletely healed left fifth rib fracture anteriorly. IMPRESSION: No evidence for acute pulmonary embolism. Findings suspicious for alveolar and interstitial edema superimposed upon interstitial fibrotic changes. Developing Covid pneumonia is not excluded given the history of Covid positive. Electronically authenticated by: STEPHANE SIERRA Date: 08/02/2023 18:29 ECG Data Attestation: I personally reviewed and interpreted this ECG as follows: Interpretation: EKG interpretation: Emergency Department physician interpretation. Normal sinus rhythm at 87bpm. Normal axis, normal intervals and no ST segment elevation or depression. Discharge Plan Discharge Chief Complaint: Shortness of Breath/Dyspnea Clinical Impression: COVID, Hypoxia, Pulmonary venous congestion Patient Disposition: Admitted As Inpatient Time of Disposition Decision: 18:36
[2023-08-02 16:03] LABS: Basophils Absolute Auto 0.1 10^3/uL (0.0-0.1); Basophils Percent Auto 0.7 % (0.2-2.0); Eosinophils Absolute Auto 0.2 10^3/uL (0.0-0.7); Eosinophils Percent Auto 2.3 % (0.9-7.0); Hematocrit 39.5 % (42.0-54.0); Hemoglobin 13.2 g/dL (14.0-18.0); Immature Granulocytes Abs Auto 0.02 10^3/uL (0.00-0.03); Immature Granulocytes Pct Auto 0.3 % (0.0-0.5); Lymphocytes Absolute Auto 1.9 10^3/uL (1.2-3.8); Lymphocytes Percent Auto 25.8 % (20.5-60.0); Mean Corpuscular HGB Conc 33.4 g/dL (29.9-35.2); Mean Corpuscular Hemoglobin 30.5 pg (25.9-34.0); Mean Corpuscular Volume 91.2 fL (80.0-94.0); Mean Platelet Volume 9.2 fL (9.5-13.5); Monocytes Absolute Auto 0.8 10^3/uL (0.3-0.8); Monocytes Percent Auto 11.1 % (1.7-12.0); Neutrophils Absolute Auto 4.4 10^3/uL (1.4-6.5); Neutrophils Percent Auto 59.8 % (43.0-75.0); Platelet Count 367 10^3/uL (150-450); Red Blood Count 4.33 10^6/uL (4.70-6.10); Red Cell Distribution Width 14.1 % (11.0-15.0); White Blood Count 7.4 10^3/uL (4.0-11.0)
[2023-08-02] MEDS: ALBUTEROL SULFATE 2.5 MG/3 ML VIAL NEB IH (16:06)
[2023-08-02 16:24] LABS: SARS-CoV-2 Ag POSITIVE (NEGATIVE)
[2023-08-02 16:27] LABS: Anion Gap 12.7; BUN Creatinine Ratio 12.8; Calcium 8.2 mg/dL (8.5-10.1); Carbon Dioxide 26.9 mmol/L (21.0-32.0); Chloride 102 mmol/L (98-107); Estimated GFR (African America >60 (>=60); Estimated GFR (Non-African Ame >60 (>=60); Glucose 113 mg/dL (74-106); Potassium 3.6 mmol/L (3.5-5.1); Sodium 138 mmol/L (136-145); Troponin I High Sensitivity 11.7 pg/mL (4.0-76.1)
--- NOTE | 2023-08-02 16:31 | CT_ITS ---
The [address] [address] Patient Name: VINAY SPAULDING MRN: [id number] date: 1950 Sex: M Assigned Patient Location: ER Current Patient Location: Accession/Order Number: [id number] Exam Date: 08/02/2023 17:00 Report Date: 08/02/2023 18:29 At the request of: MARCE FRANCISCO Procedure: CT angio chest EXAM: CT angio chest TECHNIQUE: CT angiogram with contrast performed of the chest including multi planar reformatted images and maximum intensity projection images. 3-D volume rendering created of the aorta and pulmonary arteries. Dose reduction techniques were achieved by using automated exposure control and/or adjustment of mA and/or kV according to patient size and/or use of iterative reconstruction technique. HISTORY: Covid, hypoxia COMPARISON: None. FINDINGS: Neck and Axilla: No lower neck or axillary lymphadenopathy. Mediastinum and Araceli: Mild mediastinal and bilateral hilar lymph node enlargement measuring up to 17 mm greatest short axis in the subcarinal space. The esophagus is grossly unremarkable without dilatation or gross mass lesion. Heart and Major Vessels: The heart appears unremarkable for size without pericardial effusion. The aorta and central pulmonary arteries are unremarkable for size.No pulmonary arterial filling defect to suggest acute pulmonary embolism. Lung [place]: Severe bilateral interstitial fibrotic changes. Patchy bilateral groundglass airspace opacities, left greater than right with intralobular septal thickening which may suggest edema. Pleural Spaces: No significant pleural effusion. No pneumothorax. Upper Abdomen: No acute abnormality identified. Chest Wall: Old incompletely healed left fifth rib fracture anteriorly. CT/CT angio chest IMPRESSION: No evidence for acute pulmonary embolism. Findings suspicious for alveolar and interstitial edema superimposed upon interstitial fibrotic changes. Developing Covid pneumonia is not excluded given the history of Covid positive. Electronically authenticated by: STEPHANE SIERRA Date: 08/02/2023 18:29
--- NOTE | 2023-08-02 19:07 | PC.NURSE ---
Insp.fine crackles T/O
[2023-08-02 20:23] LABS: Glucometer 139 mg/dL (74-106)
--- NOTE | 2023-08-02 22:12 | W.PM.TELEPN ---
Progress Note: Subjective Subjective Interval history: The patient is a 73-year-old male with a history of hypertension, coronary artery disease, diabetes and dyslipidemia, who was in his usual state of health until 2 weeks ago when he started having cough and cold like symptoms. His symptoms progressed over the last few days. His has a pulse oximetry at home and he checked it today and was noted to have 84% on room air and he desaturated to 70% with exertion. He has a nonproductive cough. He denies any sick contacts or any recent travel. He denies any new medications. He has never been vaccinated for COVID and has had a flu vaccine in the past but it made him ill so since then he has never gotten it again. He denies any smoking or alcohol use. He is being admitted for COVID atypical pneumonia. Exam Narrative Exam Narrative: General : Alert and oriented x3 HEENT : Extraocular movements intact, pupils equal round and reactive to light and accommodation Neck: Supple, no JVD Chest: Clear to auscultation bilaterally, no wheezes Heart: Regular rate and rhythm, S1 and S2 heard Abdomen: Soft nontender nondistended. Extremities: No clubbing cyanosis or edema Neurologically: Moving all 4 extremities Skin: No rashes Constitutional Vital Signs, click to edit/add: Last Vital Signs Temp 98.8 F 08/02/23 20:38 Pulse 91 H 08/02/23 20:38 Resp 20 08/02/23 20:38 BP 180/85 H 08/02/23 20:38 Pulse Ox 95 08/02/23 20:38 O2 Del Method Nasal Cannula 08/02/23 20:38 O2 Flow Rate 2 08/02/23 20:38 Progress Note: Objective Labs Labs: Short CBC 08/02/23 Range/Units 15:27 WBC 7.4 (4.0-11.0) 10^3/uL Hgb 13.2 L (14.0-18.0) g/dL Hct 39.5 L (42.0-54.0) % Plt Count 367 (150-450) 10^3/uL BMP 08/02/23 15:27 Sodium 138 Potassium 3.6 Chloride 102 Carbon Dioxide 26.9 BUN 11.0 Creatinine 0.86 Glucose 113 H Calcium 8.2 L Progress Note: A&P Assessment and Plan (1) COVID: (2) Hypoxia: Plan The patient is a 73-year-old male with above medical problems, presenting with COVID atypical pneumonia. COVID atypical pneumonia -Provide supportive care -Start empiric steroids with Decadron 6 mg IV daily -Provide Mucinex, albuterol inhaler, Flonase, vitamin C, vitamin D - titrate oxygen as needed, may need temporary oxygen support at home Accelerated hypertension -Resume home medications -Hydralazine IV as needed Diabetes -Monitor blood sugars while on steroids -Sliding scale coverage DVT Prophylaxis -Lovenox, SCDs Medication review -Medication reconciliation form completed Goals of care -Full code Communications -Discussed with the emergency room physician -Discussed with the bedside nurse -Patient updated of plan of care, all questions answered to their satisfaction Disposition -Home when medically stable Telemedicine clause -As the provider of this telehealth evaluation, requested by the patient's evaluating physician, I attest that I introduced myself to the patient, provided my credentials and determined that telemedicine via a real-time, two-way interactive audio and video platform is an appropriate and effective means of providing this service. -I reviewed the patient's chart and had a discussion with the member of the patient's treatment team. -The patient and I mutually agreed with continuation of this evaluation via telemedicine. The patient consented for the telemedicine evaluation. -This virtual encounter was taken place from [place], [place]. The encounter was approximately 35 minutes. The nurse was present during the entire time of the encounter and was able to remove the stethoscope and appropriate directions. The patient was evaluated at [facility] Telemedicine Attestation Telemedicine Attestation I conducted this encounter from [] via secure live, [id number] video conference with the patient, located at [facility] with []. Prior to the interview, the risks and benefits of telemedicine were discussed with the patient and verbal consent was obtained.
[2023-08-02] MEDS: ASCORBIC ACID 500 MG TABLET PO (23:22)
[2023-08-02] MEDS: FLUTICASONE PROPIONATE 50 MCG NASAL SPRAY 1 SPRAY NS (23:23)
[2023-08-02] MEDS: GUAIFENESIN 600 MG TAB.ER.12H PO (23:23)
[2023-08-03] VITALS (27 sets, daily range): BP systolic 119–138; BP diastolic 72–83; PULSE 72–111; RESP 18; TEMP 36.4–37.1; O2SAT 79–97
[2023-08-03 05:48] LABS: Basophils Percent Auto 0.6 % (0.2-2.0); Eosinophils Absolute Auto 0.2 10^3/uL (0.0-0.7); Eosinophils Percent Auto 3.3 % (0.9-7.0); Hematocrit 35.4 % (42.0-54.0); Hemoglobin 11.8 g/dL (14.0-18.0); Immature Granulocytes Abs Auto 0.01 10^3/uL (0.00-0.03); Immature Granulocytes Pct Auto 0.1 % (0.0-0.5); Lymphocytes Absolute Auto 1.7 10^3/uL (1.2-3.8); Lymphocytes Percent Auto 23.9 % (20.5-60.0); Mean Corpuscular HGB Conc 33.3 g/dL (29.9-35.2); Mean Corpuscular Hemoglobin 30.6 pg (25.9-34.0); Mean Corpuscular Volume 91.9 fL (80.0-94.0); Mean Platelet Volume 9.3 fL (9.5-13.5); Monocytes Absolute Auto 0.9 10^3/uL (0.3-0.8); Monocytes Percent Auto 12.6 % (1.7-12.0); Neutrophils Absolute Auto 4.3 10^3/uL (1.4-6.5); Neutrophils Percent Auto 59.5 % (43.0-75.0); Platelet Count 330 10^3/uL (150-450); Red Blood Count 3.85 10^6/uL (4.70-6.10); Red Cell Distribution Width 14.2 % (11.0-15.0); White Blood Count 7.2 10^3/uL (4.0-11.0)
[2023-08-03 06:00] LABS: Anion Gap 10.7; BUN Creatinine Ratio 9.8; Calcium 8.3 mg/dL (8.5-10.1); Carbon Dioxide 29.2 mmol/L (21.0-32.0); Chloride 101 mmol/L (98-107); Estimated GFR (African America >60 (>=60); Estimated GFR (Non-African Ame >60 (>=60); Glucose 126 mg/dL (74-106); Potassium 3.9 mmol/L (3.5-5.1); Sodium 137 mmol/L (136-145)
[2023-08-03] MEDS: OMEPRAZOLE 40 MG CAPSULE.DR PO (06:03)
[2023-08-03] MEDS: ENOXAPARIN SODIUM 40 MG/0.4 ML SYRINGE SUBQ (09:15)
[2023-08-03] MEDS: ATORVASTATIN CALCIUM 40 MG TABLET 80 MG PO (09:15)
[2023-08-03] MEDS: CHOLECALCIFEROL (VITAMIN D3) 25 MCG/1,000 UNITS TABLET PO (09:18)
[2023-08-03] MEDS: LOSARTAN POTASSIUM 25 MG TABLET PO (09:19)
[2023-08-03] MEDS: GUAIFENESIN 600 MG TAB.ER.12H PO ×2 (09:19→21:11)
[2023-08-03] MEDS: METOPROLOL SUCCINATE 25 MG TAB.ER.24H PO (09:35)
[2023-08-03] MEDS: CANAGLIFLOZIN 100 MG TABLET 300 MG PO (09:35)
--- NOTE | 2023-08-03 09:35 | CA_ITS ---
Patient Name: VINAY SPAULDING MR#: [id number] : 1950 Exam Date: 08/04/2023 Ordering Doctor: SHAIKH Jun HESTER . ECHOCARDIOGRAM REPORT PROCEDURE: CA ECHO LIMITED INDICATIONS: Left ventricular function, Covid+, ND, diabetes, hypertension COMPARISON: None. DESCRIPTION: Limited ECHOCARDIOGRAM Real-time transthoracic echocardiography with 2D and M-mode performed. QUALITY: Technical quality was good. Limited echocardiogram due to Covid+ LEFT VENTRICLE: Normal chamber size. Proximal septal hypertrophy (sigmoid septum). LV EF: Global left ventricular systolic function is hyperdynamic; visually estimated ejection fraction is 65 to 70%. No obvious wall motion abnormalities. LEFT ATRIUM: Normal chamber size. RIGHT ATRIUM: Normal chamber size. RIGHT VENTRICLE: Normal chamber size. Normal systolic function. TRICUSPID VALVE: Normal mobility and thickness. MITRAL VALVE: Normal mobility and thickness. Mild mitral annular calcification. AORTIC VALVE: Normal trileaflet appearance. AORTIC ROOT: Normal diameter and appearance. PULMONIC VALVE: Not well visualized. PERICARDIUM: Anterior free space; trivial effusion versus fat pad. IVC: Collapses with inspirations. CONCLUSION: 1. Global left ventricular systolic function is hyperdynamic; visually estimated ejection fraction 65 to 70% 2. The right ventricle is normal in size and systolic function 3. Anterior free space; trivial effusion versus fat pad Limited echocardiogram was performed Adult Echocardiography Procedure Report Left Ventricle LVEDD (3.7 - 5.6 cm): 4.01 cm LVESD (2.2 - 4.0 cm): 2.48 cm LVIVS thickness (0.6 - 1.2 cm): 1.62 cm LVPW thickness (0.5 - 1.0 cm): 0.98 cm LVOT Diameter 2.35 cm Left Atrium LA Volume Index (2D A2C): 25.07 ml/m2 Left Atrium Systolic Dimension: 4.12 cm Mitral Valve Right Ventricle Aorta AO Root Diam: 3.78 cm Aortic Valve Tricuspid Valve Pulmonic Valve Right Atrium Right Atrium Systolic Pressure: 46.10 ml, 46.10 ml Dictated by: Kayla Pagan M.D. on 08/05/2023 at 08:55 Approved by: Kayla Pagan M.D. on 08/05/2023 at 08:57
[2023-08-03 09:40] LABS: Glucometer 129 mg/dL (74-106)
[2023-08-03] MEDS: FLUTICASONE PROPIONATE 50 MCG NASAL SPRAY 1 SPRAY NS (09:42)
[2023-08-03] MEDS: ASCORBIC ACID 500 MG TABLET PO (09:52)
[2023-08-03] MEDS: FUROSEMIDE 40 MG/4 ML VIAL IVP (12:00)
[2023-08-03 12:04] LABS: Glucometer 120 mg/dL (74-106)
--- NOTE | 2023-08-03 13:30 | XR_ITS ---
The [address] [address] Patient Name: VINAY SPAULDING MRN: [id number] date: 1950 Sex: M Assigned Patient Location: MS Current Patient Location: [place] Accession/Order Number: [id number] Exam Date: 08/03/2023 13:40 Report Date: 08/03/2023 15:07 At the request of: SHAIKH KACIE Procedure: XR chest 1V EXAM: XR chest 1V 08/03/2023 COMPARISON STUDY: AP chest 08/02/2023. CT pulmonary angiogram 08/03/2023. FINDINGS: Upright AP chest image was obtained. HISTORY: hypoxia XR/XR chest 1V IMPRESSION: 1. Lung volumes overall appear somewhat diminished. 2. Persistent diffuse extensive mixed interstitial and alveolar opacities about both lungs are not significantly improved. This likely represents acute on chronic interstitial lung disease with background interstitial fibrosis. 3. Changes about the mediastinum and hilar regions from known adenopathy again noted. There is no pneumothorax. There is no obvious effusion. Osseous structures are stable. Electronically authenticated by: JOSE R RANGEL Date: 08/03/2023 15:07
--- NOTE | 2023-08-03 14:15 | RESP.RT ---
added humidity & decreased to 4 LPM
--- NOTE | 2023-08-03 16:42 | PM.HP ---
H&P: HPI History of Present Illness Chief complaint: Shortness of breath/hypoxia Narrative: 73 y o male with no known chronic disease present with 2 week hx of cough, SOB, sinus congestion, headache, fatigue and malaise. His symptoms continued to worsen and noted that his pulse Ox was in 70S at home. He came to ED as a result for progressively worsening SOB and on evaluation was found to have acute resp failure due to COVID Pneumonia. Patient was admitted overnight and started on Albuterol, dexamethasone. Earlier today, patient appeared comfortable but his pulse ox was 83% on RA but quickly recovers with 3 L O2 via NC. He is not vaccinated against COVID. Review of Systems ROS Status of ROS 10 or more systems reviewed and unremarkable except as noted in history and below [facility] Medical History (Updated 08/03/23 @ 17:56 by Shaikh Balaji MD) CAD (coronary artery disease) ?I25.10 - Atherosclerotic heart disease of [place] coronary artery without angina pectoris (ICD-10) Diabetes ?E11.9 - Type 2 diabetes mellitus without complications (ICD-10) Heartburn ?R12 - Heartburn (ICD-10) High cholesterol ?E78.00 - Pure hypercholesterolemia, unspecified (ICD-10) HLD (hyperlipidemia) ?E78.5 - Hyperlipidemia, unspecified (ICD-10) Hypertension ?I10 - Essential (primary) hypertension (ICD-10) Myocardial infarct ?I21.9 - Acute myocardial infarction, unspecified (ICD-10) Type 2 diabetes mellitus ?E11.9 - Type 2 diabetes mellitus without complications (ICD-10) Surgical History H/O shoulder surgery ?Z98.890 - Other specified postprocedural states (ICD-10) Family History Father Family history of cancer Mother Family history of diabetes mellitus Social History Within the past year, how often did you have a drink containing alcohol: never Within the past year, how many standard drinks containing alcohol did you have on a typical day: 1 or 2 Within the past year, how often did you have six or more drinks on one occasion: never Total score: 0 Score interpretation: A score less than 4 is consistent with normal alcohol consumption. 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 Known occupational exposures/hazards: No Known occupational exposures/hazards details: None Gender Identity: male Meds Home Medications and Allergies Home Medications Medication Instructions Recorded Confirmed Type atorvastatin 80 mg tablet 80 mg PO DAILY 07/08/23 08/02/23 History dapagliflozin propanediol 10 mg 10 mg PO DAILY 07/08/23 08/02/23 History tablet (Farxiga) dulaglutide 3 mg/0.5 mL 3 mg subcut .weekly 07/08/23 08/02/23 [facility] losartan 25 mg tablet 25 mg PO DAILY 07/08/23 08/02/23 History metformin 1,000 mg tablet 1,000 mg PO BID 07/08/23 08/02/23 History metoprolol succinate 25 mg 25 mg PO DAILY 07/08/23 08/02/23 History tablet,extended release 24 hr nitroglycerin 0.4 mg sublingual 0.4 mg sublingual Q5M PRN chest 07/08/23 08/02/23 History tablet pain omeprazole 40 mg capsule,delayed 40 mg PO DAILY 07/08/23 08/02/23 History release Allergies Allergy/AdvReac Type Severity Reaction Status Date / Time No Known Drug Allergies Allergy Verified 07/08/23 17:38 Exam Constitutional Vital Signs, click to edit/add: Last Vital Signs Temp 97.5 F L 08/03/23 09:32 Pulse 92 H 08/03/23 15:51 Resp 18 08/03/23 09:32 BP 138/82 08/03/23 12:00 Pulse Ox 94 L 08/03/23 15:51 O2 Del Method Nasal Cannula 08/03/23 14:14 O2 Flow Rate 6 08/03/23 14:14 Documenting provider has reviewed patient's vital signs: yes Common normals: no apparent distress and oriented x3 General appearance: cooperative HENMT Common normals: normocephalic and head/scalp atraumatic Head and scalp: normocephalic and atraumatic Respiratory Common normals: normal respiratory effort Effort & inspection: able to speak in complete sentences Auscultation: crackles Laterality: bilateral Cardio Common normals: regular rate, S1 normal heart sound and S2 normal heart sound Rate: regular rate Heart sounds: S1 normal and S2 normal GI Common normals: Normal to inspection, nondistended, normoactive bowel sounds present Extremity Common normals: no clubbing, cyanosis or edema Neuro Common normals: oriented x3, moves all extremities and no focal motor deficits Psych Common normals: mental status grossly normal, denies hallucinations, denies homicidal ideation and denies suicidal ideation Results Labs Labs: Short CBC 08/03/23 Range/Units 04:45 WBC 7.2 (4.0-11.0) 10^3/uL Hgb 11.8 L (14.0-18.0) g/dL Hct 35.4 L (42.0-54.0) % Plt Count 330 (150-450) 10^3/uL BMP 08/03/23 04:45 Sodium 137 Potassium 3.9 Chloride 101 Carbon Dioxide 29.2 BUN 9.0 Creatinine 0.92 Glucose 126 H Calcium 8.3 L Assessment and Plan Assessment and Plan (1) Acute respiratory failure with hypoxia: Assessment and Plan: Pulse Ox down to 83 on RA, initially responded well to 3 L via NC. But later on, got worse with increased work of breathing, persistent hypoxia and O2 was increased to 6 L. CTA chest - no PE, consolidation. Repeat CXR - no sig change noted. C/w Decadron, albuterol. Wean off O2 as tolerated. Monitor closely. (2) Acute respiratory failure due to COVID-19: Assessment and Plan: Resp failure with hypoxia due to COVID. On Decadron, albuterol (3) Sepsis: Assessment and Plan: SIRS HR >90, RR > 20, due to COVID and resp failure with hypoxia. Stable hemodynamics but persistent/worsening hypoxia. No need for abx - as viral infection. Qualifiers: Sepsis type: sepsis due to unspecified organism Sepsis acute organ dysfunction status: with acute organ dysfunction Severe sepsis acute organ dysfunction type: acute respiratory failure Acute respiratory failure type: with hypoxia Severe sepsis shock status: without septic shock Qualified Code(s): A41.9 - Sepsis, unspecified organism; R65.20 - Severe sepsis without septic shock; J96.01 - Acute respiratory failure with hypoxia (4) Suspected congestive heart failure: Assessment and Plan: Interstitial edema on CTA. Prior hx of CAD. No formal diagnosis of CHF. No recent ECHO One dose of Lasix 40 mg ordered. 2DECHO ordered to assess cardiac structure (5) CAD (coronary artery disease): Assessment and Plan: Prior hx of CAD. Stable. C/w Aspirin, Toprol and Losartan. C/w statin. (6) Type 2 diabetes mellitus: Assessment and Plan: Hold oral hypoglycemics. Switch to SSI along with Levemir 15 units. Monitor FSBS closely while on steroids. (7) Hypertension: Assessment and Plan: At goal. C/w home medications Qualifiers: Hypertension type: primary hypertension Qualified Code(s): I10 - Essential (primary) hypertension (8) HLD (hyperlipidemia): Assessment and Plan: C/w Lipitor. Qualifiers: Hyperlipidemia type: mixed hyperlipidemia Qualified Code(s): E78.2 - Mixed hyperlipidemia Plan Inpatient status as multiple comorbidities, with acute illness at high risk of poor prognosis and I anticipate he will need 2-3 days of inpatient clinical status due to degree of hypoxia.
[2023-08-03 17:33] LABS: Glucometer 165 mg/dL (74-106)
[2023-08-03] MEDS: INSULIN ASPART 300 UNIT/3 ML PEN SUBQ (17:35)
[2023-08-03 20:24] LABS: Glucometer 121 mg/dL (74-106)
[2023-08-03] MEDS: ACETAMINOPHEN 325 MG TABLET 650 MG PO (21:10)
[2023-08-03] MEDS: DEXAMETHASONE SOD PHOS 4 MG/ML VIAL 6 MG IV (21:10)
[2023-08-04] VITALS (24 sets, daily range): BP systolic 113–121; BP diastolic 63–79; PULSE 62–118; RESP 18–20; TEMP 36.3–36.6; O2SAT 79–97
[2023-08-04 04:54] LABS: Basophils Percent Auto 0.3 % (0.2-2.0); Eosinophils Percent Auto 0.4 % (0.9-7.0); Hematocrit 39.1 % (42.0-54.0); Hemoglobin 13.1 g/dL (14.0-18.0); Immature Granulocytes Abs Auto 0.02 10^3/uL (0.00-0.03); Immature Granulocytes Pct Auto 0.3 % (0.0-0.5); Lymphocytes Absolute Auto 1.4 10^3/uL (1.2-3.8); Lymphocytes Percent Auto 20.7 % (20.5-60.0); Mean Corpuscular HGB Conc 33.5 g/dL (29.9-35.2); Mean Corpuscular Hemoglobin 30.8 pg (25.9-34.0); Mean Platelet Volume 9.1 fL (9.5-13.5); Monocytes Absolute Auto 0.3 10^3/uL (0.3-0.8); Monocytes Percent Auto 4.3 % (1.7-12.0); Platelet Count 352 10^3/uL (150-450); Red Blood Count 4.25 10^6/uL (4.70-6.10); Red Cell Distribution Width 14.4 % (11.0-15.0); White Blood Count 6.7 10^3/uL (4.0-11.0)
[2023-08-04 05:18] LABS: Alanine Aminotransferase 21 U/L (16-63); Albumin Globulin Ratio 0.4; Albumin Level 2.6 g/dL (3.4-5.0); Alkaline Phosphatase 97 U/L (46-116); Anion Gap 12.9; Aspartate Amino Transferase 23 U/L (15-37); BUN Creatinine Ratio 14.7; Bilirubin Total 0.9 mg/dL (0.2-1.0); Calcium 8.8 mg/dL (8.5-10.1); Carbon Dioxide 29.6 mmol/L (21.0-32.0); Chloride 99 mmol/L (98-107); Estimated GFR (African America >60 (>=60); Estimated GFR (Non-African Ame >60 (>=60); Globulin 5.8 g/dL; Glucose 196 mg/dL (74-106); Potassium 4.5 mmol/L (3.5-5.1); Sodium 137 mmol/L (136-145); Total Protein 8.4 g/dL (6.4-8.2)
[2023-08-04] MEDS: OMEPRAZOLE 40 MG CAPSULE.DR PO (05:30)
[2023-08-04] MEDS: DEXAMETHASONE SOD PHOS 4 MG/ML VIAL 6 MG IV ×3 (05:30→20:38)
[2023-08-04 07:32] LABS: Glucometer 163 mg/dL (74-106)
[2023-08-04] MEDS: INSULIN ASPART 300 UNIT/3 ML PEN SUBQ ×4 (07:58→20:39)
[2023-08-04] MEDS: LOSARTAN POTASSIUM 25 MG TABLET PO (08:00)
[2023-08-04] MEDS: GUAIFENESIN 600 MG TAB.ER.12H PO ×2 (08:00→20:38)
[2023-08-04] MEDS: CHOLECALCIFEROL (VITAMIN D3) 25 MCG/1,000 UNITS TABLET PO (08:00)
[2023-08-04] MEDS: ASCORBIC ACID 500 MG TABLET PO (08:03)
[2023-08-04] MEDS: DOCUSATE SODIUM 100 MG CAPSULE PO (08:03)
[2023-08-04] MEDS: ATORVASTATIN CALCIUM 40 MG TABLET 80 MG PO (08:03)
[2023-08-04] MEDS: ENOXAPARIN SODIUM 40 MG/0.4 ML SYRINGE SUBQ (08:08)
[2023-08-04] MEDS: METOPROLOL SUCCINATE 25 MG TAB.ER.24H PO (08:08)
[2023-08-04] MEDS: FLUTICASONE PROPIONATE 50 MCG NASAL SPRAY 1 SPRAY NS (08:09)
[2023-08-04 10:57] LABS: Glucometer 222 mg/dL (74-106)
[2023-08-04] MEDS: ALBUTEROL SULFATE 200 PUFF/6.7 GM INHALER IH ×4 (11:06→23:16)
--- NOTE | 2023-08-04 11:46 | CM.NOTE ---
Rounds made with Dr. Carpio. Currently on oxygen. Dr. Carpio explained the potential to be discharged to home with oxygen potentially tomorrow. Mr. Gutierrez is agreeable.
--- NOTE | 2023-08-04 11:50 | P.IMPN_ITS ---
Progress Note: A&P Assessment and Plan (1) Acute respiratory failure with hypoxia: Assessment and Plan: Currently on 3 L O2. His Oxygen requirement had gone upto 6 L last evening. C/w systemic steroids, albuterol, OPEP. (2) Acute respiratory failure due to COVID-19: Assessment and Plan: c/w steroids, pulm toilet, albuterol. Wean off O2 as tolerated. (3) Sepsis: Assessment and Plan: Stable hemodynamics. Monitor. Qualifiers: Sepsis type: sepsis due to unspecified organism Sepsis acute organ dysfunction status: with acute organ dysfunction Severe sepsis acute organ dysfunction type: acute respiratory failure Acute respiratory failure type: with hypoxia Severe sepsis shock status: without septic shock Qualified Code(s): A41.9 - Sepsis, unspecified organism; R65.20 - Severe sepsis without septic shock; J96.01 - Acute respiratory failure with hypoxia (4) Suspected congestive heart failure: Assessment and Plan: Received IV lasix 08/04/23 Started on PO lasix today. ECHO pending. (5) CAD (coronary artery disease): Assessment and Plan: Stable. C/w toprol, statin. Not on ASA for unclear reason (6) Type 2 diabetes mellitus: Assessment and Plan: At goal with ALLEY Muñiz. (7) Hypertension: Assessment and Plan: At goal. C/w losartan, Toprol Qualifiers: Hypertension type: primary hypertension Qualified Code(s): I10 - Essential (primary) hypertension (8) HLD (hyperlipidemia): Assessment and Plan: C/w statin Qualifiers: Hyperlipidemia type: mixed hyperlipidemia Qualified Code(s): E78.2 - Mixed hyperlipidemia Internal Medicine - PN: Subj Subjective Interval history: Seen and examined. Doing well this morning. On 3 L O2 via NC. Denies cough, SOB. Exam Constitutional Vital Signs, click to edit/add: Last Vital Signs Temp 97.4 F L 08/04/23 04:28 Pulse 95 H 08/04/23 11:06 Resp 18 08/04/23 08:00 BP 121/79 08/04/23 08:00 Pulse Ox 91 L 08/04/23 11:08 O2 Del Method Nasal Cannula 08/04/23 11:08 O2 Flow Rate 3 08/04/23 11:08 Documenting provider has reviewed patient's vital signs: yes Common normals: no apparent distress and oriented x3 General appearance: cooperative Respiratory Common normals: normal respiratory effort Effort & inspection: able to speak in complete sentences Auscultation: crackles Laterality: bilateral Other: No wheezing Cardio Common normals: regular rate, S1 normal heart sound and S2 normal heart sound Rate: regular rate Heart sounds: S1 normal and S2 normal Extremity Common normals: no clubbing, cyanosis or edema Internal Medicine - PN: Obj Da Labs Labs: Laboratory Results - last 24 hr 08/03/23 08/03/23 08/03/23 12:03 17:29 20:23 WBC RBC Hgb Hct MCV MCH MCHC RDW Plt Count MPV Neut % (Auto) Lymph % (Auto) [place] % (Auto) Eos % (Auto) Baso % (Auto) Neut # (Auto) Lymph # (Auto) [place] # (Auto) Eos # (Auto) Baso # (Auto) Abs Immat Gran (auto) Imm/Tot Granulo (auto) Sodium Potassium Chloride Carbon Dioxide Anion Gap BUN Creatinine Est GFR ( Amer) Est GFR (Non-Af Amer) BUN/Creatinine Ratio Glucose Calcium Total Bilirubin AST ALT Alkaline Phosphatase Total Protein Albumin Globulin Albumin/Globulin Ratio POC Glucose 120 H 165 H 121 H 08/04/23 08/04/23 08/04/23 04:05 07:31 10:55 WBC 6.7 RBC 4.25 L Hgb 13.1 L Hct 39.1 L MCV 92.0 MCH 30.8 MCHC 33.5 RDW 14.4 Plt Count 352 MPV 9.1 L Neut % (Auto) 74.0 Lymph % (Auto) 20.7 [place] % (Auto) 4.3 Eos % (Auto) 0.4 L Baso % (Auto) 0.3 Neut # (Auto) 5.0 Lymph # (Auto) 1.4 [place] # (Auto) 0.3 Eos # (Auto) 0.0 Baso # (Auto) 0.0 Abs Immat Gran (auto) 0.02 Imm/Tot Granulo (auto) 0.3 Sodium 137 Potassium 4.5 Chloride 99 Carbon Dioxide 29.6 Anion Gap 12.9 BUN 16.0 Creatinine 1.09 Est GFR ( Amer) >60 Est GFR (Non-Af Amer) >60 BUN/Creatinine Ratio 14.7 Glucose 196 H Calcium 8.8 Total Bilirubin 0.9 AST 23 ALT 21 Alkaline Phosphatase 97 Total Protein 8.4 H Albumin 2.6 L Globulin 5.8 Albumin/Globulin Ratio 0.4 POC Glucose 163 H 222 H
[2023-08-04] MEDS: FUROSEMIDE 40 MG TABLET PO (13:51)
--- NOTE | 2023-08-04 15:41 | CM.NOTE ---
Important Message From Medicare discussed with pt, pt verbalizes understanding and signs paper. Original given to pt and copy placed on pt's chart.
[2023-08-04 15:57] LABS: Glucometer 244 mg/dL (74-106)
[2023-08-04 20:21] LABS: Glucometer 198 mg/dL (74-106)
[2023-08-04] MEDS: ACETAMINOPHEN 325 MG TABLET 650 MG PO (20:37)
[2023-08-05] VITALS (11 sets, daily range): PULSE 65–101; RESP 18; O2SAT 81–96
[2023-08-05] MEDS: ALBUTEROL SULFATE 200 PUFF/6.7 GM INHALER IH ×3 (03:56→10:54)
[2023-08-05 06:37] LABS: Hemoglobin 12.7 g/dL (14.0-18.0); Red Blood Count 4.14 10^6/uL (4.70-6.10)
[2023-08-05 06:38] LABS: Basophils Percent Auto 0.1 % (0.2-2.0); Eosinophils Percent Auto 0.1 % (0.9-7.0); Hematocrit 37.8 % (42.0-54.0); Immature Granulocytes Pct Auto 0.3 % (0.0-0.5); Lymphocytes Absolute Auto 2.1 10^3/uL (1.2-3.8); Lymphocytes Percent Auto 19.3 % (20.5-60.0); Mean Corpuscular HGB Conc 33.6 g/dL (29.9-35.2); Mean Corpuscular Hemoglobin 30.7 pg (25.9-34.0); Mean Corpuscular Volume 91.3 fL (80.0-94.0); Mean Platelet Volume 9.3 fL (9.5-13.5); Monocytes Absolute Auto 0.6 10^3/uL (0.3-0.8); Monocytes Percent Auto 5.4 % (1.7-12.0); Neutrophils Absolute Auto 8.2 10^3/uL (1.4-6.5); Neutrophils Percent Auto 74.8 % (43.0-75.0); Platelet Count 378 10^3/uL (150-450); Red Cell Distribution Width 14.1 % (11.0-15.0)
[2023-08-05 06:39] LABS: Immature Granulocytes Abs Auto 0.03 10^3/uL (0.00-0.03)
[2023-08-05 06:43] LABS: BUN Creatinine Ratio 20.8; Bilirubin Total 0.6 mg/dL (0.2-1.0); Calcium 8.5 mg/dL (8.5-10.1); Carbon Dioxide 28.8 mmol/L (21.0-32.0); Chloride 99 mmol/L (98-107); Estimated GFR (African America >60 (>=60); Estimated GFR (Non-African Ame >60 (>=60); Glucose 253 mg/dL (74-106); Potassium 3.8 mmol/L (3.5-5.1); Sodium 136 mmol/L (136-145)
[2023-08-05 06:44] LABS: Alanine Aminotransferase 20 U/L (16-63); Albumin Globulin Ratio 0.5; Albumin Level 2.6 g/dL (3.4-5.0); Alkaline Phosphatase 90 U/L (46-116); Aspartate Amino Transferase 17 U/L (15-37); Globulin 5.6 g/dL; Total Protein 8.2 g/dL (6.4-8.2)
--- NOTE | 2023-08-05 07:26 | RESP.RT ---
room air trial. SpO2 dropped to 86% on RA so place pt back on 1.5L
[2023-08-05 07:51] LABS: Glucometer 226 mg/dL (74-106)
[2023-08-05] MEDS: ENOXAPARIN SODIUM 40 MG/0.4 ML SYRINGE SUBQ (08:07)
[2023-08-05] MEDS: CHOLECALCIFEROL (VITAMIN D3) 25 MCG/1,000 UNITS TABLET PO (08:08)
[2023-08-05] MEDS: METOPROLOL SUCCINATE 25 MG TAB.ER.24H PO (08:08)
[2023-08-05] MEDS: LOSARTAN POTASSIUM 25 MG TABLET PO (08:08)
[2023-08-05] MEDS: FUROSEMIDE 40 MG TABLET PO (08:08)
[2023-08-05] MEDS: GUAIFENESIN 600 MG TAB.ER.12H PO (08:08)
[2023-08-05] MEDS: ASCORBIC ACID 500 MG TABLET PO (08:08)
[2023-08-05] MEDS: ATORVASTATIN CALCIUM 40 MG TABLET 80 MG PO (08:08)
[2023-08-05] MEDS: FLUTICASONE PROPIONATE 50 MCG NASAL SPRAY 1 SPRAY NS (08:09)
[2023-08-05] MEDS: INSULIN ASPART 300 UNIT/3 ML PEN SUBQ ×2 (08:09→12:30)
--- NOTE | 2023-08-05 10:52 | CM.NOTE ---
Rounds made with Dr. Carpio, pt ok for discharge to home today with home oxygen. Pt given list for oxygen companies and would like to go with [facility] for home oxygen.
--- NOTE | 2023-08-05 10:56 | RESP.RT ---
decreased to 1 LPM
--- NOTE | 2023-08-05 11:21 | P.DS_ITS ---
DS: Providers Provider Date of admission: 08/03/23 10:49 Primary care physician: Vernon Greene DO Consults: 08/02/23 22:04 Physical Therapy Eval and Treat Routine Reason for consultation: weakness Attending physician on discharge: Shaikh Balaji Discharging clinician: Shaikh Balaji Anticipated date of discharge: 08/05/23 DS: Diagnosis Discharge Diagnosis (1) Acute respiratory failure with hypoxia: Assessment and plan: Improving and are clinically stable. Requiring 1-2 L at rest, but about 2-3 L on ambulation. Discussed O2 use at home with patient. Will d/c on home O2. Anticipate that he will need it probably for 1-2 weeks (2) Acute respiratory failure due to COVID-19: Assessment and plan: As above (3) Sepsis: Assessment and plan: Resolved Qualifiers: Sepsis type: sepsis due to unspecified organism Sepsis acute organ dysfunction status: with acute organ dysfunction Severe sepsis acute organ dysfunction type: acute respiratory failure Acute respiratory failure type: with hypoxia Severe sepsis shock status: without septic shock Qualified Code(s): A41.9 - Sepsis, unspecified organism; R65.20 - Severe sepsis without septic shock; J96.01 - Acute respiratory failure with hypoxia (4) Suspected congestive heart failure: Assessment and plan: No evidence of heart failure on 2 ECHO (5) CAD (coronary artery disease): Assessment and plan: Stable Qualifiers: Coronary Disease-Associated Artery/Lesion type: [place] artery [place] vs. transplanted heart: [place] heart Associated angina: without angina Qualified Code(s): I25.10 - Atherosclerotic heart disease of [place] coronary artery without angina pectoris (6) Type 2 diabetes mellitus: Assessment and plan: Resume home medications. Closely monitor blood glucose while on dexamethasone (7) Hypertension: Assessment and plan: At goal. Cw/ home meds Qualifiers: Hypertension type: primary hypertension Qualified Code(s): I10 - Essential (primary) hypertension (8) HLD (hyperlipidemia): Assessment and plan: C/w statin Qualifiers: Hyperlipidemia type: mixed hyperlipidemia Qualified Code(s): E78.2 - Mixed hyperlipidemia DS: Summary Hospital Course Hospital Course: Presented with SOB, hypoxia, and was admitted for acute resp failure due to COVID. Patient was treated with systemic steroids, bronchodilators with slow/progressive improvement in his clinical status. He was also felt to be volume overload on exam and was given Lasix for it. He initially required 3 L O2 and then his O2 requirement went upto 6 L. He has improved since admission, and comfortable at rest and on exertion. Still requiring minimal O2 but since his clinical status have improved and felt to be stable, I do not believe he requires further hospital stay and continued close monitoring as before. He will be discharged on home O2 after walk test by RN. Patient educated on O2 use at home. Educated to seen urgent medical care if he develops worsening hypoxia, SOB at home. F/u with PCP in one week Status at Discharge Functional status at discharge: independent ambulation Overall status at discharge: patient is progressing back to baseline Time Spent with Patient Time attestation: Total time spent providing and/or coordinating discharge services: Time spent: greater than 30 minutes Exam Constitutional Vital Signs, click to edit/add: Last Vital Signs Temp 97.8 F 08/04/23 20:10 Pulse 89 08/05/23 10:54 Resp 18 08/05/23 07:11 BP 113/63 08/04/23 20:10 Pulse Ox 94 L 08/05/23 10:55 O2 Del Method Nasal Cannula 08/05/23 10:55 O2 Flow Rate 1.5 08/05/23 10:55 Documenting provider has reviewed patient's vital signs: yes Common normals: no apparent distress and oriented x3 General appearance: cooperative Respiratory Common normals: normal respiratory effort Effort & inspection: able to speak in complete sentences Auscultation: crackles (improved from before) Laterality: bilateral Other: No wheezing Cardio Common normals: regular rate, S1 normal heart sound and S2 normal heart sound Rate: regular rate Heart sounds: S1 normal and S2 normal Extremity Common normals: no clubbing, cyanosis or edema DS: Data Data Completed and Pending Labs on day of discharge: Labs from last 24 hours 08/05/23 08/05/23 08/04/23 07:50 04:12 20:16 WBC 11.0 RBC 4.14 L Hgb 12.7 L Hct 37.8 L MCV 91.3 MCH 30.7 MCHC 33.6 RDW 14.1 Plt Count 378 MPV 9.3 L Neut % (Auto) 74.8 Lymph % (Auto) 19.3 L Lewis % (Auto) 5.4 Eos % (Auto) 0.1 L Baso % (Auto) 0.1 L Neut # (Auto) 8.2 H Lymph # (Auto) 2.1 Lewis # (Auto) 0.6 Eos # (Auto) 0.0 Baso # (Auto) 0.0 Abs Immat Gran (auto) 0.03 Imm/Tot Granulo (auto) 0.3 Sodium 136 Potassium 3.8 Chloride 99 Carbon Dioxide 28.8 Anion Gap 12.0 BUN 21.0 H Creatinine 1.01 Est GFR ( Amer) >60 Est GFR (Non-Af Amer) >60 BUN/Creatinine Ratio 20.8 Glucose 253 H Calcium 8.5 Total Bilirubin 0.6 AST 17 ALT 20 Alkaline Phosphatase 90 Total Protein 8.2 Albumin 2.6 L Globulin 5.6 Albumin/Globulin Ratio 0.5 POC Glucose 226 H 198 H 08/04/23 15:55 WBC RBC Hgb Hct MCV MCH MCHC RDW Plt Count MPV Neut % (Auto) Lymph % (Auto) Lewis % (Auto) Eos % (Auto) Baso % (Auto) Neut # (Auto) Lymph # (Auto) Lewis # (Auto) Eos # (Auto) Baso # (Auto) Abs Immat Gran (auto) Imm/Tot Granulo (auto) Sodium Potassium Chloride Carbon Dioxide Anion Gap BUN Creatinine Est GFR ( Amer) Est GFR (Non-Af Amer) BUN/Creatinine Ratio Glucose Calcium Total Bilirubin AST ALT Alkaline Phosphatase Total Protein Albumin Globulin Albumin/Globulin Ratio POC Glucose 244 H Discharge Plan Discharge Disposition: Home, Self-Care Discharge Medications: New dexamethasone 6 mg tablet 6 mg PO DAILY Qty: 7 0RF albuterol sulfate [Ventolin HFA] 90 mcg/actuation HFA aerosol inhaler 2 inh inhalation Q6H PRN (Reason: shortness of breath or wheezing) Qty: 6.7 0RF Continued atorvastatin 80 mg tablet 80 mg PO DAILY Farxiga 10 mg tablet 10 mg PO DAILY Trulicity 3 mg/0.5 mL pen injector 3 mg SUBCUT .weekly metformin 1,000 mg tablet 1,000 mg PO BID Hold Instructions: contrast dye metoprolol succinate 25 mg tablet extended release 24 hr 25 mg PO DAILY omeprazole 40 mg capsule,delayed release(DR/EC) 40 mg PO DAILY nitroglycerin 0.4 mg tablet, sublingual 0.4 mg sublingual Q5M PRN (Reason: chest pain) losartan 25 mg tablet 25 mg PO DAILY Activity: increase activity as tolerated Diet: advance to your usual diet Forms: Portal Instructions Follow Up Appointments: F/U PCP in one week
[2023-08-05 11:24] LABS: Glucometer 303 mg/dL (74-106)
--- NOTE | 2023-08-05 13:00 | CM.NOTE ---
Pt will need home oxygen. Pt would like [facility], faxed clinical for new referral.
[2023-08-05] MEDS: DEXAMETHASONE SOD PHOS 4 MG/ML VIAL 6 MG IV (13:52)
--- NOTE | 2023-08-05 14:15 | CM.NOTE ---
[facility] called and are good to accept pt for home oxygen needs. Pt updated and RN provided with information.
== END 2023-08-05 15:25 | disposition home or self-care (01) | DRG 871 ==
LOC: ER 18:48 → MS 22:02
PROVIDERS: Admitting Provider Internal Medicine; Emergency Provider Emergency Medicine; PCP Internal Medicine; Visit Provider Internal Medicine
DX: A41.89 Other specified sepsis (principal); J12.82 Pneumonia due to coronavirus disease 2019; J96.01 Acute respiratory failure with hypoxia; U07.1 COVID-19; R65.20 Severe sepsis without septic shock; I25.10 Atherosclerotic heart disease of native coronary artery without angina pectoris; E11.9 Type 2 diabetes mellitus without complications; I11.0 Hypertensive heart disease with heart failure; I50.9 Heart failure, unspecified; E78.5 Hyperlipidemia, unspecified; Z79.84 Long term (current) use of oral hypoglycemic drugs; Z79.85 Long-term (current) use of injectable non-insulin antidiabetic drugs; Z79.899 Other long term (current) drug therapy; Z87.891 Personal history of nicotine dependence; I25.2 Old myocardial infarction; Z28.310 Unvaccinated for COVID-19; Z28.9 Immunization not carried out for unspecified reason; Z83.3 Family history of diabetes mellitus; Z80.9 Family history of malignant neoplasm, unspecified
CPT/HCPCS: 36415; 71045; 71275; 74177; 80048; 80053; 82150; 82948; 83690; 83880; 84443; 84484; 85025; 87811; 93005; 93308; 94640; 94761; 96372; 96374; 96375; 96376; 99285; G0378; Q9967

== ENCOUNTER 2023-10-06 12:18 | Outpatient (OUT) | payer MEDICARE, SELFPAY ==
--- NOTE | 2023-10-06 | ECG_ITS ---
[facility] Test Date: 2023-10-06 Pat Name: VINAY SPAULDING Department: Room: - Gender: Male Manager Medical: : 1950 Requested By: MACK GARDUNO Order Number: [id number] Reading MD: MACK GARDUNO Measurements Intervals [place] Rate: 92 P: 53 CO: 156 QRS: 62 QRSD: 89 T: 63 QT: 347 QTc: 430 Interpretive Statements SINUS RHYTHM Compared to ECG 08/02/2023 15:20:43 No significant changes Electronically Signed On 10-07-2023 6:57:45 EST by MACK GARDUNO
--- OUTSIDE RECORDS SUMMARY | 2023-10-06 12:23 | XMS_ITS | CCD ---
Author Name Unknown Address [address] [place] [address] Organization [facility] Care Team Providers Care Insurance Rater Name Role Phone Vernon Greene Unavailable VERNON GREENE Admitting Unavailable JC, VERNON Attending Unavailable JC, VERNON Primary Care Unavailable JC, VERNON Consulting Unavailable LIDIA, DR VINNY Evans [...] Consulting Unavailable DO Erickson Nascimento Attending Provider Erickson Nascimento Unavailable DO Erickson Nascimento Attending Provider DO Vernon Greene Primary Care Provider [phone] Erickson Nascimento Admitting Unavailable Erickson Nascimento Attending Unavailable Vernon Greene Primary Care Unavailable Erickson Nascimento Admitting Unavailable Erickson Nascimento Attending Unavailable Navneet Puga Unavailable Asaad, Imad Unavailable Medications Current Medications Medication Drug Class(es) Dates Sig (Normalized) Sig (Original) Accu-Chek Nury Plus - (20 sources) Accu-Chek Nury Plus - USE 1 STRIP TO TEST BLOOD SUGAR ONCE EVERY DAY for 90 Active [id number] actuat albuterol 0.09 mg/actuat metered dose inhaler (3 sources) beta2-Adrenergic Agonist Start: 09-02-2023 take 2 puff(s) by inhalation every six hours as needed for wheezing Albuterol Sulfate HFA 108 (90 Base) MCG/ACT 2 puffs Inhalation every 6 hours as needed for wheezing or shortness of breathe Sep, Active aspirin 81 mg oral tablet (1 [...] sources) GLP-1 Receptor Agonist Trulicity 3 MG/0.5ML INJECT 1 PEN SUBCUTANEOUSLY ONCE A WEEK Active Trulicity 3 MG/0 .5ML as directed Subcutaneous Active Dulaglutide (Trulicity) 3 [...] Tramadol Active 50 MG PO Q4H 10 7 July 04, 2023 12:00am Problems Active Problems Problem Classification Problem Date Documented Da te Episodic/Chronic Abdominal pain (2 sources) Epigastric pain Episodic Cardiac dysrhythmias (1 source) Tachycardia, unspecified Episodic Chronic obstructive pulmonary disease and bronchiectasis (10 sources) Acute exacerbation of chronic obstructive airways disease; Translations: [Chronic obstructive pulmonary disease with (acute) exacerbation] Chronic Coronary atherosclerosis and other heart disease (20 sources) Coronary arteriosclerosis; Translations: [Atherosclerotic heart disease of [place] coronary artery without angina pectoris] Chronic Diabetes [...] sources) H/O: high risk medication; Translations: [Other care home (current) drug therapy] Episodic Other aftercare (2 sources) Other care home (current) drug therapy; Translations: [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 THERAPY] Onset: 05-19-2022 Episodic Other [...] not elsewhere classified] Chronic Other liver diseases (20 sources) Fatty (change of) liver, not elsewhere classified; Translations: [Nonalcoholic fatty liver disease] Chronic Other liver diseases (2 sources) Abnormal levels of other serum enzymes Episodic Other lower respiratory disease (3 sources) Hypoxemia Episodic Other nervous system disorders (20 [...] caused by tuberculosis or sexually transmitted disease) (3 sources) Pneumonia (except that caused by tuberculosis or sexually transmitted disease) Viral infection (2 sources) COVID-19 Results Test Name Value Interpretation Reference Range Facility Glucose Glucometer (BldC) [M ass/Vol]Ordered By: Erickson Nascimento on 07-04-2023 Glucose [Mass/Vol] 134 mg/dL [facility] Comment on above: Random Glucose Refer ence Range is dependent on time and content of last meal. Glucose of more than 200 mg/dL in a nonstressed, ambulatory subject supports the diagnosis of Diabetes Mellitus. Glucose Poct Glucometerson 1 09-03-2022 Glucose [Mass/Vol] 134 mg/dL Normal [facility] Comment on above: Result Comment: [place] Glucose Reference Range is dependent on time and content of last meal. Glucose of more than 200 mg/dL in a nonstressed, ambulatory subject supports the diagnosis of Diabetes Mellitus. PERFORMED BY: [facility] [address] [place] [address] PATHOLOGIST HYDRODYNAMICS PROFESSOR ADELFO RAMIREZ M.D. Performed By: #### G LOYD #### Point of Care testing , Eduard 07-04-2023 L Specimen: [id number] Received: 07/04/23 Status: RAQUEL De Oliveira Num: [id number] Spec Type: Surgical Subm Dr: Erickson Nascimento, DO Tissues: A Soft Tissue/Surgical Margin-Other than Tumor,Mass,Lip or Natasha (LT ELBOW MASS) Procedures: VINCENT Gross/Micro L4 Age/ Patient Sex Location Account Attending Physician Vinay Gutierrez 73/M OR [id number] Erickson Nascimento DO SPEC NUM: [id number] RECD: 07/04/23 STATUS: RAQUEL DE OLIVEIRA NUM: [id number] DENISA: 07/04/[address] [facility] [address]: Erickson Nascimento DO ENTERED: 07/04/23 [facility] DR: DARY TYPE: Surgical DEPT: S ORDERED: VINCENT Gross/Micro L4 ORDERED: VINCENT Gross/Micro L4 Pathological Diagnosis Soft tissue, left [...] tissue with a rubbery, dubois-pink cut surface. 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 Specimen: [id number] Received: 07/04/23 Status: RAQUEL De Oliveira Num: [id number] Spec Type: Surgical Subm Dr: Erickson Nascimento, DO Tissues: A Soft Tissue/Surgical Margin-Other than Tumor,Mass,Lip or Natasha (LT ELBOW MASS) Procedures: Kristin KAUR/Zo L4 Patient: Vinay Gutierrez [id number] (Continued) Specimen: [id number] Received: 07/04/23 (Continued) Signed (signature on file) Brandy Keane MD 07/08/23 1545 Specimen: [id number] Received: 07/04/23 Status: RAQUEL De Oliveira Num: [id number] Spec Type: Surgical Subm Dr: Erickson Nascimento, DO Tissues: A Soft Tissue/Surgical Margin-Other than Tumor,Mass,Lip or Natasha (LT ELBOW MASS) Procedures: Kristin KAUR/Zo L4 Patient: Vinay Gutierrez [id number] (Continued) Specimen: [id number] Received: 07/04/23 (Continued) Microscopic Description One H E slide reviewed. The microscopic examination confirms the diagnosis. CPT Codes 48932 Specimen: [id number] Received: 07/04/23 Status: RAQUEL De Oliveira Num: [id number] Spec Type: Surgical Subm Dr: Erickson Nascimento DO Tissues: A Soft Tissue/Surgical Margin-Other than Tumor,Mass,Lip or Natasha (LT ELBOW MASS) Procedures: VINCENT, Gross/Micro L4 Patient: Vinay Gutierrez [id number] (Continued) Signed (signature on file) Brandy Keane MD 07/08/[address] [facility] XR elbow LT 2Von 02-26-2023 XR elbow LT 2V [address] [address] XRay Report Signed Patient: Vinay Gutierrez MR#: [id number] : 1950 Acct:[id number] Age/Sex: 72 / M ADM Date: 02/26/23 [place] [facility] [place]: Type: REG CLI Attending Dr: Erickson Nascimento DO Copies to: [...] PROCESS. Impression dictated by: Abdirahman Blount Jr., D.OJeferson02/26/2023 2:56 PM Dictation Location: [place] [address] Transcribed By: [facility] 02/26/23 1456 Dictated By: Abdirahman Blount Jr, DO 02/26/23 1455 Signed By: 02/26/[address] [facility] GLYCOHEMOGLOBIN A1Con 2022 ADA RECOMMENDATION SEE BELOW Normal [facility] Comment on above: Result Comment: ADA RECOMMENDED LIMIT 4.0 - 6.0 ADA THERAPEUTIC TARGET < 7.0 ACTION SUGGESTED > 7.0 Performed By: #### D ATA1C #### [facility] [address] [place] [address] Dr. Ginger Keane Glucose [Mass/Vol] 123 mg/dL Normal [facility] Comment on above: Performed By: #### D ATA1C #### [facility] [address] [place] [address] [address] Ginger Keane HbA1c (Bld) [Mass fraction] 5.9 % Normal 4.5-6.2 [facility] Comment on above: Performed By: #### D ATA1C #### [facility] [address] [place] [address] [address] Ginger Keane GLYCOHEMOGLOBIN A1Con 2021 ADA RECOMMENDATION SEE BELOW Normal [facility] Comment on above: Result Comment: ADA RECOMMENDED LIMIT 4.0 - 6.0 ADA THERAPEUTIC TARGET < 7.0 ACTION SUGGESTED > 7.0 Performed By: #### D ATA1C #### [facility] [address] [address] [address] Ginger Keane Glucose [Mass/Vol] 160 mg/dL Normal [facility] Comment on above: Performed By: #### D ATA1C #### [facility] [address] [place] [address] Dr. Ginger Keane HbA1c (Bld) [Mass fraction] 7.2 % Critically high 4.5-6.2 [facility] Comment on above: Performed By: #### D ATA1C #### [facility] [address] [place] [address] Dr. Ginger Keane MICROALBUMIN URINEon 022 Albumin, Urine 123.8 ug/mL Normal Not Estab. [facility] Comment on above: Performed By: #### M ALBLC #### [facility] [address] [place] [address] Dr. Ginger Keane CBC AUTO DIFFon 05-15-2022 BASO # 0.1 103/ul Normal 0.0-0.1 [facility] Comment on above: Performed By: #### C BC #### [facility] [address] [place] [address] Dr. Ginger Keane Basophils/100 WBC (Bld) 0.6 % Normal 0.2-2.0 [facility] Comment on above: Performed By: #### C BC #### [facility] [address] [place] [address] Dr. Ginger Keane EO # 0.2 103/ul Normal 0.0-0.7 [facility] Comment on above: Performed By: #### C BC #### [facility] [address] [place] [address] Dr. Ginger Keane Eosinophils/100 WBC (Bld) 2.9 % Normal 0.9-7.0 [facility] Comment on above: Performed By: #### C BC #### [facility] [address] [place] [address] Dr. Ginger Keane Erythrocyte distribution width (RBC) [Ratio] 12.9 % Normal 11.0-15.0 [facility] Comment on above: Performed By: #### C BC #### [facility] [address] [place] [address] Dr. Ginger Keane Hematocrit (Bld) [Volume fraction] 44.3 % Normal 42.0-54.0 [facility] Comment on above: Performed By: #### C BC #### [facility] [address] [place] [address] Dr. Ginger Keane Hemoglobin (Bld) [Mass/Vol] 15.6 g/dL Normal 14.0-18.0 [facility] Comment on above: Performed By: #### C BC #### [facility] [address] [place] [address] Dr. Ginger Keane IG # 0.01 10e3/ul Normal 0.00-0.03 [facility] Comment on above: Performed By: #### C BC #### [facility] [address] [place] [address] Dr. Ginger Keane IG % 0.1 % Normal 0.0-0.5 [facility] Comment on above: Performed By: #### C BC #### [facility] [address] [place] [address] Dr. Ginger Keane LYMPH # 2.9 103/ul Normal 1.2-3.8 [facility] Comment on above: Performed By: #### C BC #### [facility] [address] [place] [address] Dr. Ginger Keane Lymphocytes/100 WBC (Bld) 34.1 % Normal 20.5-60.0 [facility] Comment on above: Performed By: #### C BC #### [facility] [address] [place] [address] Dr. Ginger Keane MANUAL DIFF REQ NO Normal [facility] Comment on above: Performed By: #### C BC #### [facility] [address] [place] [address] Dr. Ginger Keane MCH (RBC) [Entitic mass] 32.8 pg Normal 25.9-34.0 [facility] Comment on above: Performed By: #### C BC #### [facility] [address] [place] [address] Dr. Ginger Keane MCHC (RBC) [Mass/Vol] 35.2 g/dL Normal 29.9-35.2 [facility] Comment on above: Performed By: #### C BC #### [facility] [address] [address] [address] Ginger Keane MCV (RBC) [Entitic vol] 93.3 fL Normal 80.0-94.0 [facility] Comment on above: Performed By: #### C BC #### [facility] [address] [place] [address] Dr. Ginger Keane MONO # 0.6 103/ul Normal 0.3-0.8 [facility] Comment on above: Performed By: #### C BC #### [facility] [address] [place] [address] Dr. Ginger Keane Monocytes/100 WBC (Bld) 7.5 % Normal 1.7-12.0 [facility] Comment on above: Performed By: #### C BC #### [facility] [address] [place] [address] Dr. Ginger Keane NEUT # 4.6 103/ul Normal 1.4-6.5 [facility] Comment on above: Performed By: #### C BC #### [facility] [address] [place] [address] Dr. Ginger Keane Neutrophils/100 WBC (Bld) 54.8 % Normal 43.0-75.0 [facility] Comment on above: Performed By: #### C BC #### [facility] [address] [place] [address] Dr. Ginger Keane Platelet mean volume (Bld) [Entitic vol] 9.7 fL Normal 9.5-13.5 [facility] Comment on above: Performed By: #### C BC #### [facility] [address] [place] [address] Dr. Ginger Keane PLT 260 103/ul Normal 150-450 [facility] Comment on above: Performed By: #### C BC #### [facility] [address] [place] [address] Dr. Ginger Keane RBC 4.75 106/ul Normal 4.70-6.10 [facility] Comment on above: Performed By: #### C BC #### [facility] [address] [address] [address] Ginger Keane WBC 8.4 103/ul Normal 4.0-11.0 [facility] Comment on above: Performed By: #### C BC #### [facility] [address] [address] [address] Ginger Keane LIPID PROFILEon 05-15-2022 CHOL-HDL RATIO NORM SEE BELOW Normal [facility] Comment on above: Result Comment: 3.3 - 4.4 LOW RISK 4.4 - 7.1 AVERAGE RISK 7.1 - 11.0 MODERATE RISK >11.0 HIGH RISK Performed By: #### B MP, LIPID, ALT #### [facility] [address] [place] [address] Dr. Ginger Keane Cholesterol [Mass/Vol] 119 mg/dL Normal <=200 [facility] Comment on above: Performed By: #### B MP, LIPID, ALT #### [facility] [address] [address] [address] Ginger Kaene Cholesterol in HDL [Mass/Vol] 37 mg/dL Critically low 40-60 [facility] Comment on above: Performed By: #### B MP, LIPID, ALT #### [facility] [address] [address] [address] Ginger Keane Cholesterol in LDL [Mass/Vol] 35.2 mg/dL Normal [facility] Comment on above: Performed By: #### B MP, LIPID, ALT #### [facility] [address] [address] [address] Ginger Keane Cholesterol.total/Cho lesterol in HDL [Mass ratio] 3.2 {ratio} Normal [facility] Comment on above: Performed By: #### B MP, LIPID, ALT #### [facility] [address] [place] [address] Dr. Ginger Keane HDL NORMAL > or = 60 mg/dl - LOW CARDIOVASCULAR RISK <40 mg/dl - HIGH CARDIOVASCULAR RISK Normal [facility] Comment on above: Performed By: #### B MP, LIPID, ALT #### [facility] [address] [address] [address] Ginger Keane LDL CALC NORMAL SEE BELOW Normal [facility] Comment on above: Result Comment: <100 mg/dl OPTIMAL 100 - 129 mg/dl NEAR OR ABOVE OPTIMAL 130 - 159 mg/dl BORDERLINE HIGH 160 - 189 mg/dl HIGH >190 mg/dl VERY HIGH Performed By: #### B MP, LIPID, ALT #### [facility] [address] [address] [address] Ginger Keane Triglyceride [Mass/Vol] 234 mg/dL Critically high <=150 [facility] Comment on above: Performed By: #### B MP, LIPID, ALT #### [facility] [address] [address] [address] Ginger Keane VLDL CALC 46.8 mg/dL Normal [facility] Comment on above: Performed By: #### B MP, LIPID, ALT #### [facility] [address] [address] [address] Ginger Keane PROF CHEM 8 (BAS METB)on Anion gap [Moles/Vol] 13.3 mmol/L Normal [facility] Comment on above: Performed By: #### B MP, LIPID, ALT #### [facility] [address] [address] [address] Ginger Keane Calcium [Mass/Vol] 8.7 mg/dL Normal 8.5-10.1 [facility] Comment on above: Performed By: #### B MP, LIPID, ALT #### [facility] [address] [address] [address] Ginger Keane Chloride [Moles/Vol] 102 mmol/L Normal 98-107 [facility] Comment on above: Performed By: #### B MP, LIPID, ALT #### [facility] [address] [address] [address] Ginger Keane CO2 [Moles/Vol] 26.8 mmol/L Normal 21.0-32.0 [facility] Comment on above: Performed By: #### B MP, LIPID, ALT #### [facility] [address] [address] [address] Ginger Keane Creatinine [Mass/Vol] 0.92 mg/dL Normal 0.70-1.30 [facility] Comment on above: Performed By: #### B MP, LIPID, ALT #### [facility] [address] [address] [address] Ginger Keane EGFR-AF CITIZEN [place] >60 Normal >=60 [facility] Comment on above: Performed By: #### B MP, LIPID, ALT #### [facility] [address] [address] [address] Ginger Keane EGFR-NON AF CITIZEN OF [place] >60 Normal >=60 [facility] Comment on above: Performed By: #### B MP, LIPID, ALT #### [facility] [address] [address] [address] Ginger Keane Glucose [Mass/Vol] 161 mg/dL Critically high 74-106 [facility] Comment on above: Performed By: #### B MP, LIPID, ALT #### [facility] [address] [address] [address] Ginger Keane Potassium [Moles/Vol] 4.1 mmol/L Normal 3.5-5.1 [facility] Comment on above: Performed By: #### B MP, LIPID, ALT #### [facility] [address] [address] [address] Ginger Keane Sodium [Moles/Vol] 138 mmol/L Normal 136-145 [facility] Comment on above: Performed By: #### B MP, LIPID, ALT #### [facility] [address] [address] [address] Ginger Keane Urea nitrogen [Mass/Vol] 13.0 mg/dL Normal 7.0-18.0 [facility] Comment on above: Performed By: #### B MP, LIPID, ALT #### [facility] [address] [address] [address] Ginger Keane Urea nitrogen/Creatinine [Mass ratio] 14.1 mg/mg Normal [facility] Comment on above: Performed By: #### B MP, LIPID, ALT #### [facility] [address] [address] [address] Ginger Keane SGPTon 05-15-2022 ALT [Catalytic activity/Vol] 26 U/L Normal 16-63 [facility] Comment on above: Performed By: #### B MP, LIPID, ALT #### [facility] [address] [address] [address] Ginger Keane GLYCOHEMOGLOBIN A1Con 2021 ADA RECOMMENDATION SEE BELOW Normal [facility] Comment on above: Result Comment: ADA RECOMMENDED LIMIT 4.0 - 6.0 ADA THERAPEUTIC TARGET < 7.0 ACTION SUGGESTED > 7.0 Performed By: #### D ATA1C #### [facility] [address] [address] [address] Ginger Keane Glucose [Mass/Vol] 146 mg/dL Normal [facility] Comment on above: Performed By: #### D ATA1C #### [facility] [address] [address] [address] Ginger Keane HbA1c (Bld) [Mass fraction] 6.7 % Critically high 4.5-6.2 [facility] Comment on above: Performed By: #### D ATA1C #### [facility] [address] [address] [address] Ginger Keane Vital Signs Date Time Vital Sign Value Performing Clinician Facility 10-01-2023 10:00-0500 Body height 180.34 cm Vernon Greene Other [facility] Other 10-01-2023 10:00-0500 Diastolic blood pressure 70 mm[Hg] Vernon Greene Other [facility] Other 10-01-2023 10:00-0500 SaO2% (BldA) [Mass fraction] 90 % Vernon Greene Other [facility] Other 10-01-2023 10:00-0500 Systolic blood pressure 124 mm[Hg] Vernon Greene Other [facility] Other 08-29-2023 10:00-0500 Body height 180.34 cm Vernon Ball Other [facility] Other 08-29-2023 10:00-0500 Body mass index (BMI) [Ratio] 25.63 kg/m2 Vernon Ball Other [facility] Other 08-29-2023 10:00-0500 Body weight 83.37 kg Vernon Ball Other [facility] Other 08-29-2023 10:00-0500 Diastolic blood pressure 63 mm[Hg] Vernon Ball Other [facility] Other 08-29-2023 10:00-0500 Respiratory rate 20 /min Vernon Ball Other [facility] Other 08-29-2023 10:00-0500 SaO2% (BldA) [Mass fraction] 84 % Vernon Ball Other [facility] Other 08-29-2023 10:00-0500 Systolic blood pressure 109 mm[Hg] Vernon Ball Other [facility] Other 08-12-2023 11:00-0500 Body height 180.34 cm Vernon Ball Other [facility] Other 08-12-2023 11:00-0500 Body mass index (BMI) [Ratio] 25.55 kg/m2 Vernon Ball Other [facility] Other 08-12-2023 11:00-0500 Body weight 83.1 kg Vernon Ball Other [facility] Other 08-12-2023 11:00-0500 Diastolic blood pressure 88 mm[Hg] Vernon Ball Other [facility] Other 08-12-2023 11:00-0500 Respiratory rate 20 /min Vernon Ball Other [facility] Other 08-12-2023 11:00-0500 SaO2% (BldA) [Mass fraction] 94 % Vernon Ball Other [facility] Other 08-12-2023 11:00-0500 Systolic blood pressure 120 mm[Hg] Vernon Ball Other [facility] Other 07-10-2023 11:45-0500 Body height 180.34 cm Vernon Ball Other [facility] Other 07-10-2023 11:45-0500 Body mass index (BMI) [Ratio] 26.22 kg/m2 Vernon Ball Other [facility] Other 07-10-2023 11:45-0500 Body weight 85.28 kg Vernon Ball Other [facility] Other 07-10-2023 11:45-0500 Diastolic blood pressure 75 mm[Hg] Vernon Ball Other [facility] Other 07-10-2023 11:45-0500 Respiratory rate 16 /min Vernon Ball Other [facility] Other 07-10-2023 11:45-0500 Systolic blood pressure 129 mm[Hg] Vernon Ball Other [facility] Other 07-04-2023 08:03-0400 Diastolic blood pressure 93 mm[Hg] DO Vernon Ball Work Phone: [facility] 07-04-2023 08:03-0400 Heart rate 89 /min DO Vernon Ball Work Phone: [facility] 07-04-2023 08:03-0400 Respiratory rate 16 /min DO Vernon Ball Work Phone: [facility] 07-04-2023 08:03-0400 SaO2% (BldA) [Mass fraction] 93 % DO Vernon Ball Work Phone: [facility] 07-04-2023 08:03-0400 Systolic blood pressure 140 mm[Hg] DO Vernon Ball Work Phone: [facility] 07-04-2023 06:47-0400 Body height 180.34 cm DO Vernon Ball Work Phone: [facility] 07-04-2023 06:47-0400 Body temperature 98.2 [degF] DO Vernon Ball Work Phone: [facility] 07-04-2023 06:47-0400 Body weight 86.18 kg DO Vernon Ball Work Phone: [facility] 07-02-2023 13:45-0400 Body height 180.34 cm Erickson Nascimento Other [facility] [employer] [facility] Other 07-02-2023 13:45-0400 Body mass index (BMI) [Ratio] 26.5 kg/m2 Erickson Pily Other [facility] Other 07-02-2023 13:45-0400 Body weight 86.18 kg Erickson Pily Other [facility] Other 05-20-2023 10:00-0400 Body height 180.34 cm Vernon Ball Other [facility] [employer] Other 05-20-2023 10:00-0400 Body mass index (BMI) [Ratio] 26.64 kg/m2 Vernon Ball Other [place] [employer] Other 05-20-2023 10:00-0400 Body weight 86.64 kg Vernon Ball Other [facility] Other 05-20-2023 10:00-0400 Diastolic blood pressure 74 mm[Hg] Vernon Ball Other [facility] Other 05-20-2023 10:00-0400 Respiratory rate 12 /min Vernon Ball Other [facility] Other 05-20-2023 10:00-0400 Systolic blood pressure 117 mm[Hg] Vernon Ball Other [facility] Other 02-17-2023 10:30-0400 Body height 180.34 cm Vernon Ball Other [facility] Other 02-17-2023 10:30-0400 Body mass index (BMI) [Ratio] 27.58 kg/m2 Vernon Ball Other [facility] Other 02-17-2023 10:30-0400 Body weight 89.72 kg Vernon Ball Other [facility] Other 02-17-2023 10:30-0400 Diastolic blood pressure 78 mm[Hg] Vernon Ball Other [facility] Other 02-17-2023 10:30-0400 Respiratory rate 12 /min Vernon Ball Other [facility] Other 02-17-2023 10:30-0400 Systolic blood pressure 128 mm[Hg] Vernon Ball Other [facility] Other 11-18-2022 11:30-0400 Body height 180.34 cm Vernon Ball Other [facility] Other 11-18-2022 11:30-0400 Body mass index (BMI) [Ratio] 27.42 kg/m2 Vernon Greene Other [facility] Other 11-18-2022 11:30-0400 Body weight 89.18 kg Vernon Greene Other [facility] Other 11-18-2022 11:30-0400 Diastolic blood pressure 70 mm[Hg] Vernon Greene Other [facility] Other 11-18-2022 11:30-0400 Respiratory rate 12 /min Vernon Greene Other [facility] Other 11-18-2022 11:30-0400 Systolic blood pressure 122 mm[Hg] Vernon Greene Other [facility] Other Encounters Encounter Date Encounter Type Care Provider Facility Start: 10-01-2023 End: 10-01-2023 ambulatory Imad Asaad Other [facility] Other Start: 10-01-2023 Office outpatient vi sit 25 minutes Vernon Ball [facility] Start: 10-01-2023 Telephone encounter Imad Asaad [facility] Start: 09-02-2023 End: 09-02-2023 ambulatory Vernon Greene Other [facility] Other Start: 09-02-2023 Telephone encounter Vernon Greene [facility] Start: 08-29-2023 End: 08-29-2023 ambulatory Vernon Greene Other [facility] Other Start: 08-29-2023 Office outpatient vi sit 25 minutes Vernon Ball [facility] Start: 08-12-2023 End: 08-12-2023 ambulatory Vernon Greene Other [facility] Other Start: 12-12-2023 Transitional care [facility] 14 day discharge Vernon Greene [facility] Start: 08-06-2023 End: 08-06-2023 ambulatory Vernon Greene Other [facility] Other Start: 08-06-2023 Telephone encounter Vernon KANG [facility] Start: 08-01-2023 End: 08-01-2023 ambulatory Vernon Greene Other [facility] Other Start: 08-01-2023 Telephone encounter Vernon KANG [facility] Start: 07-30-2023 End: 07-30-2023 ambulatory Vernon Greene Other [facility] Other Start: 07-30-2023 Telephone encounter Vernon Greene [facility] Start: 07-16-2023 End: 07-16-2023 ambulatory Navneet Puga Other [facility] Other Start: 07-16-2023 Telephone encounter Navneet KANG G [facility] Start: 07-13-2023 End: 07-13-2023 ambulatory Vernon Greene Other [facility] Other Start: 07-13-2023 Telephone encounter Vernon Greene [facility] Start: 07-10-2023 End: 07-10-2023 ambulatory Vernon Greene Other [facility] Other Start: 07-10-2023 Office outpatient vi sit 25 minutes Vernon Greene [facility] Start: 07-10-2023 Telephone encounter Vernon Greene [facility] Start: 07-04-2023 Telephone encounter Vernon Greene [facility] Start: 07-04-2023 End: 07-04-2023 ambulatory Erickson Nascimento Facility:[facility] Start: 07-04-2023 End: 07-04-2023 Admission to same day surgery center DO Vernon Greene Work Phone: [facility] Start: 07-04-2023 End: 07-04-2023 ambulatory DO Vernon Greene Work Phone: [facility] Work Phone: Start: 07-02-2023 End: 07-02-2023 ambulatory Erickson Nascimento Other [facility] Other Start: 07-02-2023 Office outpatient vi sit 25 minutes Erickson Nascimento [facility] Start: 05-21-2023 End: 05-21-2023 ambulatory Vernon Greene Other [facility] Other Start: 05-21-2023 Telephone encounter Vernon Greene [facility] Start: 05-20-2023 End: 05-20-2023 ambulatory Vernon Greene Other [facility] Other Start: 05-20-2023 Patient encounter procedure Vernon Greene [facility] Start: 02-27-2023 End: 02-27-2023 ambulatory Erickson Nascimento Other [facility] Other Start: 02-27-2023 Telephone encounter Erickson KANG G [facility] Start: 02-26-2023 End: 02-26-2023 ambulatory Erickson Nascimento Facility:[facility] Start: 02-26-2023 End: 02-26-2023 Patient encounter procedure DO Erickson Nascimento Work Phone: [facility] Start: 02-26-2023 End: 02-26-2023 ambulatory DO Erickson Nascimento Work Phone: [facility] Work Phone: Start: 02-26-2023 Office outpatient ne w 45 minutes Erickson Nascimento [facility] Start: 02-17-2023 End: 02-17-2023 ambulatory Vernon Greene Other [facility] Other Start: 02-17-2023 Office outpatient vi sit 25 minutes Vernon Ball [facility] Start: 01-09-2023 End: 01-09-2023 ambulatory Vernon Ball Other [facility] Other Start: 01-09-2023 Telephone encounter Vernon Ball [facility] Start: 12-24-2022 End: 12-24-2022 ambulatory Vernon Ball Other [facility] Other Start: 12-24-2022 Telephone encounter Vernon Ball [facility] Start: 11-26-2022 End: 11-26-2022 ambulatory Vernon Ball Other [facility] Other Start: 11-26-2022 Telephone encounter Vernon Ball [facility] Start: 11-25-2022 End: 11-26-2022 ambulatory VERNON BALL Facility:[facility] Start: 11-18-2022 End: 11-18-2022 ambulatory Vernon Ball Other [facility] Other Start: 11-18-2022 Office outpatient vi sit 25 minutes Vernon Ball [facility] Start: 11-15-2022 End: 11-16-[address] NONE LISTED REQUEST Facility:[facility] Start: 11-07-2022 End: 11-07-2022 ambulatory Vernon Ball Other [facility] Other Start: 11-07-2022 Telephone encounter Vernon Ball [facility] Start: 08-08-2022 End: 08-09-2022 ambulatory VERNON BALL Facility:[facility] Start: 05-15-2022 End: 05-16-2022 ambulatory VERNON BALL Facility:[facility] Start: 05-09-2022 End: 05-10-[address] NONE LISTED REQUEST Facility:[facility] Procedures Date Procedure Procedure Detail Performing Clinician Start: 07-04-2023 Open reduction of fracture with internal fixation DO Vernon Greene Work Phone: Start: 02-26-2023 Plain X-ray of left elbow DO Erickson Pily Work Phone: Start: 05-15-2022 PSA screening VERNON GREENE Comment on above: Performed By: #### P [facility] #### [facility] [address] [address] [address] Ginger Keane Plan of Treatment Date Care Activity Detail Author Start: 07-04-2023 [facility] Patient referral [facility] Work Phone: Immunizations Immunization Date Immunization Notes Care Provider Fa oma 05-25-2018 pneumococcal polysaccharide vaccine, 23 valent Vernon Greene Other [facility] Other 07-01-2017 diphtheria, tetanus toxoids and acellular pertussis vaccine, unspecified formulation Vernon Greene Other [facility] Other 07-01-2017 pneumococcal conjuga te vaccine, 13 valent Vernon Greene Other [facility] Other Payers Date Payer Category Payer Medicare [id number] . [id number] 1958 Self-pay 1950 Unknown [id number] 1950 Unknown [id number] 2.16.84 [id number] Unknown [id number] 2.16.84 [id number] Unknown [id number] 2.16.84 [id number] Unknown [id number] 2.16.84 [id number] Unknown [id number] 2.16.8 [id number] Unknown [id number] 2.16.8 [id number] Social History Date Type Detail Facility Sex Assigned At [facility] Other Start: 1950 Sex Assigned At Male F [facility] Start: 07-04-2023 Tobacco smoking stat us NHIS Ex-smoker (finding) [facility] Goals Date Patient Goal Desired Activity /State Clinical Notes 11-18-2022 to 10-01-2023 Note Date & Type Note Facility 10-01-2023 Evaluation note Encounter Date Diagnosis Assessment Notes Sep, Mucopurulent chronic bronchitis (ICD-10 - J41.1) Instructed on deep breathing and cough exercises. Increase activity, avoid prolonged lounging. Hydrate and use Mucolytics to assist in clearing secretions. Continue MAURO every 4 hours as needed Sep, Pneumonia due to Coronavirus disease 2019 (ICD-10 - J12.82) Treated w/ Remdesevir and Decadron but required supplemental oxygen upon d/c home. Healthy diet, hydrate and increase activity. Recheck CXR and consider CT chest. Sep, Hypoxia (ICD-10 - R09.02) Continue supplemental oxygen to maintain Psat > 90%. Continues to desaturate, while on supplemental oxygen, to high 80s. - however severity less w/ increased activity since discharge from the hospital. Slow progress, discussed referral to Pulmonary Clinic Sep, ASHD (arteriosclerot ic heart disease) (ICD-10 - I25.10) This patient is stable without activity related CP, dyspnea or lightheadedness. They are instructed to continue exercise and AHA diet plan. Continue secondary prevention measures. No s/s CHF Does have pedal edema w/o orthopnea or PND. Sep, Controlled type 2 diabetes mellitus with hyperglycemia, [...] office visit. Continue regular routine monitoring of A1C, Microalbumin, Dilated eye exam and Foot exam Sep, Sinus tachycardia (ICD-10 - R00.0) Hydrate w/ minimum 48oz fluids daily. Continue Boost drinks. Increase Metoprolol to 50mg qd. EKG scheduled Sep, COVID-19 (ICD-10 - U07.1) Post COVID syndrome w/ fatigue, poor appetite, cough, dyspnea and hypoxia Sep, Nicotine dependence, cigarettes, in remission (ICD-10 - F17.211) Age started 17 1 ppd Age quit 52 Continue abstinence. Quit 2002, doesn't qualify for LDCT Sep, Other Mucolytics to assist in mobilization of secretions. Continue MAURO every 4-6 hours as needed. CXR, f/u from COVID infection [facility] Other 12-29-2023 Evaluation note* Encounter Date Diagnosis Assessment Notes Treatment Notes Treatment Clinical Notes Aug, Pneumonia due to Coronavirus disease 2018 (ICD-10 - J12.82) Continue IS every hour. Continue supplemental oxygen to maintain Psat > 90% Continue MDI every 4hours as needed to mobilize secretions Increase activity as tolerated Aug, Chronic obstructive pulmonary disease with (acute) exacerbation (ICD-10 - J44.1) Added to lung impairment from COVID infection. Mobilized secretions w/ IS and MDI Cough and deep breathing exercises. Aug, Hypoxia (ICD-10 - R09.02) Maintain sats > 90% COntinue supplemental oxygen. Aug, ASHD (arteriosclerotic heart disease) (ICD-10 - I25.10) [...] Microalbumin, Dilated eye exam and Foot exam Slowly improving post infection. Continue present treatment Aug, Nicotine dependence, cigarettes, in remission (ICD-10 - F17.211) Age started 17 1 ppd Age quit 52 Continue abstinence [facility] Other 12-12-2023 Evaluation note* Encounter Date Diagnosis Assessment Notes Treatment Notes Treatment Clinical Notes Aug, COVID-19 (ICD-10 - U07.1) Continue isolation for 10 days. If he is afebrile and feeling better w/ resolving symptoms, can stop wearing masks. He has natural immunity for now but if favors vaccination, would revaccinate in 3 mo. Aug, Pneumonia due to Coronavirus disease 2018 (ICD-10 - J12.82) Cough and deep breathing [...] night should be last task. Aug, ASHD (arteriosclerotic heart disease) (ICD-10 - I25.10) [...] and hypoxia. MDI and oxygen for now. [facility] Other 12-01-2023 Evaluation note* Encounter Date Diagnosis Assessment Notes Treatment Notes Treatment Clinical Notes Aug, Weight loss (ICD-10 - R63.4) [facility] Other 11-09-2023 Evaluation note* Encounter Date Diagnosis [...] or bowel habits. No melena or hematochezia [facility] Other 11-01-2023 Evaluation note* Encounter Date Diagnosis [...] poor healing. I have advised against the care home use of narcotic pain medication. I have [...] Jul, Elbow mass, left (ICD-10 - R22.32) [facility] Other 09-19-2023 Evaluation note* Encounter Date Diagnosis [...] PSA (prostate specific antigen) (ICD-10 - Z12.5) [facility] Other 06-28-2023 Evaluation note* Encounter Date Diagnosis [...] as documented in the electronic medical record. [facility] Other 06-19-2023 Evaluation note* Encounter Date Diagnosis [...] wks. Nontender and mobile. Refer to [facility] [employer] Other 03-27-2023 NotePROCEDURE: XR KNEE LT 3V [...] Electronically authenticated by: VINNY MURILLO Date: 2022-11-25 10:55[facility]03-20-2023 Evaluation note* Encounter Date Diagnosis [...] Initiate PPI and if no improvement, EGD [facility] Other Evaluation noteNo InformationNort Acucela Other Evaluation noteNo assessment information available [facility] Work Phone: Hisrdio general Narrative - Reported* Type Description Date [...] long-term current use of insulin Surgical History [facility] PTCA/STENT 2002 Surgical History [facility] 2006 Hospitalization History SEE SURGICAL [facility] Other Hisxsev general Narrative - Reported* Type Description Date [...] long-term current use of insulin Surgical History [facility] PTCA/STENT 2002 Surgical History [facility] 2006 Surgical History Excision left elbow mass 3 Hospitalization History SEE SURGICAL [facility] Other Hospital Discharge instructions Additional Instructions Orthopedic [...] prescribed. You may take Motrin or Tylenol onri-lwr-[id number] if you wish. Follow-up in [address] [facility] [address] [place] [id number] [phone] Work Phone: Reason for referral (narrative)* Reason *Waiting for appt Referral for recurrent left Olecranon bursa and SC nodule Diagnosis 1 Olecranon bursitis o f left elbow (M70.22) Diagnosis 2 Subcutaneous nodule (R22.9) Referral Organization [facility] Likva berta Referring Provider First Name Vernon Referring Provider Last Name Jc Referring Provider Specialty Internal Me dicine Referred Organization [facility] Ortho pedics Referred Provider Erickson Nascimento Referred Address [address] [facility] [place],[address] Referred Provider Specialty Orthopedic S urgery Referral [...] has normal ROM of the left elbow Zara Malin 02/17/2023 11:21:37 AM >received today, sent P2P [facility] Other Reason for referral (narrative)* Reason Referral for screeni ng colonoscopy and EGD Diagnosis 1 Unexplained weight l oss (R63.4) Diagnosis 2 Epigastric discomfor t (R10.13) Diagnosis 3 Serum lipase elevati on (R74.8) Diagnosis 4 Colon cancer screeni ng (Z12.11) Referral Organization [facility] Likva berta Referring Provider First Name Vernon Referring Provider Last Name Jc Referring Provider Specialty Internal Me dicine Referred Organization [facility] Referred Provider Rochelle Woodard Referred Address [address] [place],[address] Referred Provider Specialty Gastroentero logy Referral Priority [...] be done within the next 2-3 wks. [facility] Other Summary Purpose Family History Relationship Condition [...] follow upCT/labsER follow upOrdersMAIL PPWNo InformationCT/lab resultsTCMBS readingsTBH2 week follow upRefillGASTRO UPDATE4 month Follow up (unrecognized sect ion and content) No Status Records FoundNo Status Records Found INFORMATION SOURCE (unrecogn ized section and content) DATE CREATED AUTHOR 12/02/2022 [facility] DATE CREATED AUTHOR 'S ORGANIZ ATION 07/16/2023 [facility] Care Teams (unrecognized sec tion and content) Team Status: Inactive Member Role Status Dates Erickson Nascimento DO Attending Provider Active Team Status: Active Member Role Status Dates Vernon Greene DO Primary Care Provider Active Team Status: Inactive Member Role Status Dates Erickson Nascimento DO Attending Provider Active Vernon Greene DO Primary Care Provider Active Goals (unrecognized [...] BE BASED ON THE PRIMARY CLINICAL RECORDS. [facility] [employer] [facility]. provides no warranty or guarantee of the accuracy or completeness of information in this document.
--- NOTE | 2023-10-06 13:10 | XR_ITS ---
The [address] [address] Patient Name: VINAY SPAULDING MRN: [id number] date: 1950 Sex: M Assigned Patient Location: CARD Current Patient Location: CARD Accession/Order Number: [id number] Exam Date: 10/06/2023 13:30 Report Date: 10/06/2023 13:50 At the request of: MACK GARDUNO Procedure: XR chest 2V EXAM: XR chest 2V HISTORY: Chronic Obstructive Pulmonary Disease J44.1 shortness of breath. COMPARISON: 08/03/2023 TECHNIQUE: Upright PA and lateral chest x-ray FINDINGS: Prominent interstitial changes are again seen throughout the lungs which are probably unchanged. These findings would indicate underlying fibrosis. No apparent acute infiltrate, effusion or pneumothorax is identified. The heart appears borderline enlarged, with prominence of the central pulmonary vasculature. The osseous structures are grossly intact. XR/XR chest 2V IMPRESSION: Diffuse interstitial changes are present throughout the lungs, which appear to be primarily chronic in nature. There is no clear evidence of a focal infiltrate or overt cardiac decompensation at this time. Given slight differences in technique, the overall appearance of the chest is essentially unchanged. Electronically authenticated by: ZOHRA RICKETTS Date: 10/06/2023 13:50
[2023-10-06 13:18] LABS: Anion Gap 13.1; BUN Creatinine Ratio 16.5; Calcium 9.1 mg/dL (8.5-10.1); Carbon Dioxide 27.9 mmol/L (21.0-32.0); Chloride 100 mmol/L (98-107); Estimated Average Glucose 114 mg/dL; Estimated GFR (African America >60 (>=60); Estimated GFR (Non-African Ame >60 (>=60); Glucose 106 mg/dL (74-106); Glycohemoglobin A1C 5.6 % (4.5-6.2); Sodium 137 mmol/L (136-145)
[2023-10-06 13:27] LABS: Basophils Absolute Auto 0.1 10^3/uL (0.0-0.1); Basophils Percent Auto 0.7 % (0.2-2.0); Eosinophils Absolute Auto 0.2 10^3/uL (0.0-0.7); Eosinophils Percent Auto 1.8 % (0.9-7.0); Hematocrit 37.9 % (42.0-54.0); Hemoglobin 12.4 g/dL (14.0-18.0); Immature Granulocytes Abs Auto 0.02 10^3/uL (0.00-0.03); Immature Granulocytes Pct Auto 0.2 % (0.0-0.5); Lymphocytes Absolute Auto 2.8 10^3/uL (1.2-3.8); Lymphocytes Percent Auto 29.6 % (20.5-60.0); Mean Corpuscular HGB Conc 32.7 g/dL (29.9-35.2); Mean Corpuscular Hemoglobin 30.2 pg (25.9-34.0); Mean Corpuscular Volume 92.4 fL (80.0-94.0); Mean Platelet Volume 9.4 fL (9.5-13.5); Monocytes Absolute Auto 0.9 10^3/uL (0.3-0.8); Monocytes Percent Auto 9.5 % (1.7-12.0); Neutrophils Absolute Auto 5.5 10^3/uL (1.4-6.5); Neutrophils Percent Auto 58.2 % (43.0-75.0); Platelet Count 377 10^3/uL (150-450); White Blood Count 9.5 10^3/uL (4.0-11.0)
== END 2023-10-06 12:19 | disposition home or self-care (01) ==
PROVIDERS: PCP Internal Medicine; Visit Provider Internal Medicine
DX: I25.10 Atherosclerotic heart disease of native coronary artery without angina pectoris (principal); J44.1 Chronic obstructive pulmonary disease with (acute) exacerbation; E11.65 Type 2 diabetes mellitus with hyperglycemia
CPT/HCPCS: 36415; 71046; 80048; 82043; 83036; 85025; 93005

== ENCOUNTER 2023-10-14 12:48 | Outpatient (OUT) | payer MEDICARE, SELFPAY ==
--- OUTSIDE RECORDS SUMMARY | 2023-10-14 12:53 | XMS_ITS | CCD ---
Author Name Unknown Address [address] [place] [address] Organization [facility] Care Team Providers Care Geomorphologist Name Role Phone Vernon Greene Unavailable VERNON [...] Nascimento Unavailable DO Erickson Nascimento Attending Provider [phone] DO Vernon Greene Primary Care Provider Erickson Nascimento Admitting Unavailable Erickson Nascimento Attending Unavailable Vernon Greene Primary Care Unavailable Erickson Nascimento Admitting Unavailable Erickson Nascimento Attending Unavailable Navneet Puga Unavailable Asaad, Imad Unavailable Medications Current Medications Medication Drug Class(es) Dates Sig (Normalized) Sig (Original) Accu-Chek Nury Plus - (20 sources) Accu-Chek Nury Plus - USE 1 STRIP TO TEST BLOOD SUGAR ONCE EVERY DAY for 90 Active [id number] actuat albuterol 0.09 mg/actuat metered dose inhaler (6 sources) beta2-Adrenergic Agonist Start: 09-02-2023 take 2 [...] Episodic Chronic obstructive pulmonary disease and bronchiectasis (16 sources) Acute exacerbation of chronic obstructive airways disease; Translations: [Chronic obstructive pulmonary disease with (acute) exacerbation] Chronic Coronary atherosclerosis and other heart disease (20 sources) Coronary arteriosclerosis; Translations: [Atherosclerotic heart disease of [place] coronary artery without angina pectoris] Chronic Diabetes [...] sources) H/O: high risk medication; Translations: [Other extermination supervisor (current) drug therapy] Episodic Other aftercare (2 sources) Other extermination supervisor (current) drug therapy; Translations: [OTH SENIOR CARE CURRENT DRUG THERAPY] Onset: 05-19-2022 Episodic Other [...] Episodic Other lower respiratory disease (3 sources) Interstitial lung disease; Translations: [Interstitial pulmonary disease, unspecified] Chronic Other lower respiratory disease (1 source) Interstitial pulmonary disease, unspecified Chronic Other lower respiratory disease (4 sources) Hypoxemia Episodic Other nervous system disorders [...] Nascimento on 07-04-2023 Glucose [Mass/Vol] 134 mg/dL [facility] Comment on above: Random Glucose Refer ence Range is dependent on time and content of last meal. Glucose of more than 200 mg/dL in a nonstressed, ambulatory subject supports the diagnosis of Diabetes Mellitus. Glucose Poct Glucometerson 1 09-03-2022 Glucose [Mass/Vol] 134 mg/dL Normal [facility] Comment on above: Result Comment: [place] om Glucose Reference Range is dependent on time and content of last meal. Glucose of more than 200 mg/dL in a nonstressed, ambulatory subject supports the diagnosis of Diabetes Mellitus. PERFORMED BY: [facility] [address] [place] [address] PATHOLOGIST COMPUTER GRAPHICS ILLUSTRATOR ADELFO RAMIREZ M.D. Performed By: #### G LOYD #### Point of Care testing , Eduard 07-04-2023 L Specimen: [id number] Received: 07/04/23 Status: RAQUEL De Oliveira Num: [id number] Spec Type: Surgical Subm Dr: Erickson Nascimento DO Tissues: A Soft Tissue/Surgical Margin-Other than Tumor,Mass,Lip or Natasha (LT ELBOW MASS) Procedures: VINCENT, Gross/Micro L4 Age/ Patient Sex Location Account Attending Physician Vinay Gutierrez 73/M [place] [id number] Erickson Nascimento DO SPEC NUM: [id number] RECD: 07/04/23 STATUS: RAQUEL MAYTE NUM: [id number] DENISA: 07/04/23 [facility] DR: Erickson Nascimento DO ENTERED: 07/04/23 IVANA : DARY TYPE: Surgical DEPT: S ORDERED: VINCENT, Gross/Micro L4 ORDERED: VINCENT, Gross/Micro L4 Pathological Diagnosis Soft tissue, left [...] tissue with a rubbery, dubois-pink cut surface. Laborer sections are submitted in one cassette labeled A1. Specimen: [id number] Received: 07/04/23 Status: RAQUEL De Oliveira Num: [id number] Spec Type: Surgical Subm Dr: Erickson Nascimento, Tissues: A Soft Tissue/Surgical Margin-Other than Tumor,Mass,Lip or Natasha (LT ELBOW MASS) Procedures: Kristin KAUR/Zo L4 Patient: Vinay Gutierrez [id number] (Continued) Specimen: [id number] Received: 07/04/23 (Continued) Signed (signature on file) Brandy Keane MD 07/08/23 1545 Specimen: [id number] Received: 07/04/23 Status: RAQUEL De Oliveira Num: [id number] Spec Type: Surgical Subm Dr: Erickson Nascimento, Tissues: A Soft Tissue/Surgical Margin-Other than Tumor,Mass,Lip or Natasha (LT ELBOW MASS) Procedures: Kristin KAUR/Zo L4 Patient: Vinay Gutierrez [id number] (Continued) Specimen: [id number] Received: 07/04/23 (Continued) Microscopic Description One H E slide reviewed. The microscopic examination confirms the diagnosis. CPT Codes 28737 Specimen: [id number] Received: 07/04/23 Status: RAQUEL De Oliveira Num: [id number] Spec Type: Surgical Subm Dr: Erickson Nascimento DO Tissues: A Soft Tissue/Surgical Margin-Other than Tumor,Mass,Lip or Natasha (LT ELBOW MASS) Procedures: VINCENT Gross/Micro L4 Patient: Vinay Gutierrez [id number] (Continued) Signed (signature on file) Kirk-Sedrick Keane MD 07/08/23 1545 [facility] XR elbow LT 2Von 02-26-2023 XR elbow LT 2V [address] [address] XRay Report Signed Patient: Vinay Gutierrez MR#: [id number] : 1950 Acct:[id number] Age/Sex: 72 / M ADM Date: 02/26/23 Loc[place] [facility] [place]: Type: [facility] Attending Dr: Erickson Nascimento DO Copies [...] Blount Jr., D.OJeferson02/26/2023 2:56 PM Dictation Location: [place] [address] Transcribed By: [facility] 02/26/23 1456 Dictated By: Abdirahman Blount Jr, DO 02/26/23 1455 Signed By: 02/26/23 1456 Normal [facility] GLYCOHEMOGLOBIN A1Con 2022 ADA RECOMMENDATION SEE BELOW Normal [facility] Comment on above: Result Comment: ADA RECOMMENDED LIMIT 4.0 - 6.0 ADA THERAPEUTIC TARGET < 7.0 ACTION SUGGESTED > 7.0 Performed By: #### D ATA1C #### [facility] [address] [address] [address] Ginger Keane Glucose [Mass/Vol] 123 mg/dL Normal [facility] Comment on above: Performed By: #### D ATA1C #### [facility] [address] [address] [address] Ginger Keane HbA1c (Bld) [Mass fraction] 5.9 % Normal 4.5-6.[address] [facility] Comment on above: Performed By: #### D ATA1C #### [facility] [address] [address] [address] Ginger Keane GLYCOHEMOGLOBIN A1Con 2021 ADA RECOMMENDATION SEE BELOW Normal [facility] Comment on above: Result Comment: ADA RECOMMENDED LIMIT 4.0 - 6.0 ADA THERAPEUTIC TARGET < 7.0 ACTION SUGGESTED > 7.0 Performed By: #### D ATA1C #### [facility] [address] [place] [address] Dr. Ginger Keane Glucose [Mass/Vol] 160 mg/dL Normal [facility] Comment on above: Performed By: #### D ATA1C #### [facility] [address] [place] [address] Dr. Ginger Keane HbA1c (Bld) [Mass fraction] 7.2 % Critically high 4.5-6.[address] [facility] Comment on above: Performed By: #### D ATA1C #### [facility] [address] [place] [address] Dr. Ginger Keane MICROALBUMIN URINEon 022 Albumin, Urine 123.8 ug/mL Normal Not Estab. [facility] Comment on above: Performed By: #### M ALBLC #### [facility] [address] [place] [address] Dr. Ginger Keane CBC AUTO DIFFon 05-15-2022 BASO # 0.1 103/ul Normal 0.0-0.[address] [facility] Comment on above: Performed By: #### C BC #### [facility] [address] [place] [address] Dr. Ginger Keane Basophils/100 WBC (Bld) 0.6 % Normal 0.2-2.[address] [facility] Comment on above: Performed By: #### C BC #### [facility] [address] [place] [address] Dr. Ginger Keane EO # 0.2 103/ul Normal 0.0-0.[address] [facility] Comment on above: Performed By: #### C BC #### [facility] [address] [place] [address] Dr. Ginger Keane Eosinophils/100 WBC (Bld) 2.9 % Normal 0.9-7.[address] [facility] Comment on above: Performed By: #### C BC #### [facility] [address] [place] [address] Dr. Ginger Keane Erythrocyte distribution width (RBC) [Ratio] 12.9 % Normal 11.0-15.[address] [facility] Comment on above: Performed By: #### C BC #### [facility] [address] [place] [address] Dr. Ginger Keane Hematocrit (Bld) [Volume fraction] 44.3 % Normal 42.0-54.[address] [facility] Comment on above: Performed By: #### C BC #### [facility] [address] [place] [address] Dr. Ginger Keane Hemoglobin (Bld) [Mass/Vol] 15.6 g/dL Normal 14.0-18.[address] [facility] Comment on above: Performed By: #### C BC #### [facility] [address] [place] [address] Dr. Ginger Keane IG # 0.01 10e3/ul Normal 0.00-0.[address] [facility] Comment on above: Performed By: #### C BC #### [facility] [address] [place] [address] Dr. Ginger Keane IG % 0.1 % Normal 0.0-0.[address] [facility] Comment on above: Performed By: #### C BC #### [facility] [address] [place] [address] Dr. Ginger Keane LYMPH # 2.9 103/ul Normal 1.2-3.[address] [facility] Comment on above: Performed By: #### C BC #### [facility] [address] [place] [address] Dr. Ginger Keane Lymphocytes/100 WBC (Bld) 34.1 % Normal 20.5-60.[address] [facility] Comment on above: Performed By: #### C BC #### [facility] [address] [place] [address] Dr. Ginger Keane MANUAL DIFF REQ NO Normal [facility] Comment on above: Performed By: #### C BC #### [facility] [address] [place] [address] Dr. Ginger Keane MCH (RBC) [Entitic mass] 32.8 pg Normal 25.9-34.[address] [facility] Comment on above: Performed By: #### C BC #### [facility] [address] [place] [address] Dr. Ginger Keane MCHC (RBC) [Mass/Vol] 35.2 g/dL Normal 29.9-35.[address] [facility] Comment on above: Performed By: #### C BC #### [facility] [address] [place] [address] Dr. Ginger Keane MCV (RBC) [Entitic vol] 93.3 fL Normal 80.0-94.[address] [facility] Comment on above: Performed By: #### C BC #### [facility] [address] [place] [address] Dr. Ginger Keane MONO # 0.6 103/ul Normal 0.3-0.[address] [facility] Comment on above: Performed By: #### C BC #### [facility] [address] [place] [address] Dr. Ginger Keane Monocytes/100 WBC (Bld) 7.5 % Normal 1.7-12.[address] [facility] Comment on above: Performed By: #### C BC #### [facility] [address] [place] [address] Dr. Ginger Keane NEUT # 4.6 103/ul Normal 1.4-6.[address] [facility] Comment on above: Performed By: #### C BC #### [facility] [address] [place] [address] Dr. Ginger Keane Neutrophils/100 WBC (Bld) 54.8 % Normal 43.0-75.0 [facility] Comment on above: Performed By: #### C BC #### [facility] [address] [place] [address] Dr. Ginger Keane Platelet mean volume (Bld) [Entitic vol] 9.7 fL Normal 9.5-13.5 [facility] Comment on above: Performed By: #### C BC #### [facility] [address] [place] [address] Dr. Ginger Keane PLT 260 103/ul Normal 150-450 [facility] Comment on above: Performed By: #### C BC #### [facility] [address] [address] [address] Ginger Keane RBC 4.75 106/ul Normal 4.70-6.[address] [facility] Comment on above: Performed By: #### C BC #### [facility] [address] [address] [address] Ginger Keane WBC 8.4 103/ul Normal 4.0-11.[address] [facility] Comment on above: Performed By: #### C BC #### [facility] [address] [address] [address] Ginger Keane LIPID PROFILEon 05-15-2022 CHOL-HDL RATIO NORM SEE BELOW Normal [facility] Comment on above: Result Comment: 3.3 - 4.4 LOW RISK 4.4 - 7.1 AVERAGE RISK 7.1 - 11.0 MODERATE RISK >11.0 HIGH RISK Performed By: #### B MP, LIPID, ALT #### [facility] [address] [address] [address] Ginger Keane Cholesterol [Mass/Vol] 119 mg/dL Normal <=[address] [facility] Comment on above: Performed By: #### B MP, LIPID, ALT #### [facility] [address] [place] [address] Dr. Ginger Keane Cholesterol in HDL [Mass/Vol] 37 mg/dL Critically low 40-[address] [facility] Comment on above: Performed By: #### B MP, LIPID, ALT #### [facility] [address] [address] [address] Ginger Keane Cholesterol in LDL [Mass/Vol] 35.2 mg/dL Normal [facility] Comment on above: Performed By: #### B MP, LIPID, ALT #### [facility] [address] [address] [address] Ginger Keane Cholesterol.total/Cho lesterol in HDL [Mass ratio] 3.2 {ratio} Normal [facility] Comment on above: Performed By: #### B MP, LIPID, ALT #### [facility] [address] [address] [address] Ginger Keane HDL NORMAL > or = 60 mg/dl - LOW CARDIOVASCULAR RISK <40 mg/dl - HIGH CARDIOVASCULAR RISK Normal [facility] Comment on above: Performed By: #### B MP, LIPID, ALT #### [facility] [address] [address] [address] Ginger Keane LDL CALC NORMAL SEE BELOW Normal [facility] Comment on above: Result Comment: <100 mg/dl OPTIMAL 100 - 129 mg/dl NEAR OR ABOVE OPTIMAL 130 - 159 mg/dl BORDERLINE HIGH 160 - 189 mg/dl HIGH >190 mg/dl VERY HIGH Performed By: #### B MP, LIPID, ALT #### [facility] [address] [address] [address] Ginger Keane Triglyceride [Mass/Vol] 234 mg/dL Critically high <=[address] [facility] Comment on above: Performed By: #### B MP, LIPID, ALT #### [facility] [address] [address] [address] Ginger Keane VLDL CALC 46.8 mg/dL Normal [facility] Comment on above: Performed By: #### B MP, LIPID, ALT #### [facility] [address] [address] [address] Ginger Keane PROF CHEM 8 (BAS METB)on Anion gap [Moles/Vol] 13.3 mmol/L Normal [facility] Comment on above: Performed By: #### B MP, LIPID, ALT #### [facility] [address] [address] [address] Ginger Keane Calcium [Mass/Vol] 8.7 mg/dL Normal 8.5-10.1 [facility] Comment on above: Performed By: #### B MP, LIPID, ALT #### [facility] [address] [place] [address] Dr. Ginger Keane Chloride [Moles/Vol] 102 mmol/L Normal 98-[address] [facility] Comment on above: Performed By: #### B MP, LIPID, ALT #### [facility] [address] [place] [address] Dr. Ginger Keane CO2 [Moles/Vol] 26.8 mmol/L Normal 21.0-32.0 [facility] Comment on above: Performed By: #### B MP, LIPID, ALT #### [facility] [address] [address] [address] Ginger Keane Creatinine [Mass/Vol] 0.92 mg/dL Normal 0.70-1.[address] [facility] Comment on above: Performed By: #### B MP, LIPID, ALT #### [facility] [address] [address] [address] Ginger Keane EGFR-AF GIBRALTARIAN >60 Normal >=60 [facility] Comment on above: Performed By: #### B MP, LIPID, ALT #### [facility] [address] [address] [address] Ginger Keane EGFR-NON AF GIBRALTARIAN >60 Normal >=[address] [facility] Comment on above: Performed By: #### B MP, LIPID, ALT #### [facility] [address] [address] [address] Ginger Keane Glucose [Mass/Vol] 161 mg/dL Critically high 74-106 [facility] Comment on above: Performed By: #### B MP, LIPID, ALT #### [facility] [address] [address] [address] Ginger Keane Potassium [Moles/Vol] 4.1 mmol/L Normal 3.5-5.[address] [facility] Comment on above: Performed By: #### B MP, LIPID, ALT #### [facility] [address] [address] [address] Ginger Keane Sodium [Moles/Vol] 138 mmol/L Normal 136-145 [facility] Comment on above: Performed By: #### B MP, LIPID, ALT #### [facility] [address] [address] [address] Ginger Keane Urea nitrogen [Mass/Vol] 13.0 mg/dL Normal 7.0-18.[address] [facility] Comment on above: Performed By: #### B MP, LIPID, ALT #### [facility] [address] [address] [address] Ginger Keane Urea nitrogen/Creatinine [Mass ratio] 14.1 mg/mg Normal [facility] Comment on above: Performed By: #### B MP, LIPID, ALT #### [facility] [address] [address] [address] Ginger Keane SGPTon 05-15-2022 ALT [Catalytic activity/Vol] 26 U/L Normal 16-[address] [facility] Comment on above: Performed By: #### B MP, LIPID, ALT #### [facility] [address] [place], [place] [address] Dr. Ginger Keane GLYCOHEMOGLOBIN A1Con 2021 ADA RECOMMENDATION SEE BELOW Normal [facility] Comment on above: Result Comment: ADA RECOMMENDED LIMIT 4.0 - 6.0 ADA THERAPEUTIC TARGET < 7.0 ACTION SUGGESTED > 7.0 Performed By: #### D ATA1C #### [facility] [address] [address] [address] Ginger Keane Glucose [Mass/Vol] 146 mg/dL Normal [facility] Comment on above: Performed By: #### D ATA1C #### [facility] [address] [address] [address] Ginger Keane HbA1c (Bld) [Mass fraction] 6.7 % Critically high 4.5-6.[address] [facility] Comment on above: Performed By: #### D ATA1C #### [facility] [address] [address] [address] Ginger Keane Vital Signs Date Time Vital Sign Value Performing Clinician Facility 10-01-2023 10:00-0500 Body height 180.34 cm Vernon Greene Other [facility] Other 10-01-2023 10:00-0500 Diastolic blood pressure 70 mm[Hg] Vernon Greene Other [facility] Other 10-01-2023 10:00-0500 SaO2% (BldA) [Mass fraction] 90 % Vernon Greene Other [facility] Other 10-01-2023 10:00-0500 Systolic blood pressure 124 mm[Hg] Vernon Ball Other [facility] Other 08-29-2023 10:00-0500 Body height 180.34 cm Vernon Ball Other [facility] Other 08-29-2023 10:00-0500 Body mass index (BMI) [Ratio] 25.63 kg/m2 Vernon Ball Other [facility] Other 08-29-2023 10:00-0500 Body weight 83.37 kg Vernon Ball Other [facility] Other 08-29-2023 10:00-0500 Diastolic blood pressure 63 mm[Hg] Vernon Ball Other [facility] Other 08-29-2023 10:00-0500 Respiratory rate 20 /min Vernon Ball Other [facility] Other 08-29-2023 10:00-0500 SaO2% (BldA) [Mass fraction] 84 % Vernon Ball Other [facility] Other 08-29-2023 10:00-0500 Systolic blood pressure 109 mm[Hg] Vernon Ball Other [facility] Other 08-12-2023 11:00-0500 Body height 180.34 cm Vernon Ball Other [facility] Other 08-12-2023 11:00-0500 Body mass index (BMI) [Ratio] 25.55 kg/m2 Vernon Ball Other [facility] Other 08-12-2023 11:00-0500 Body weight 83.1 kg Vernon Ball Other [facility] Other 08-12-2023 11:00-0500 Diastolic blood pressure 88 mm[Hg] Vernon Ball Other [facility] Other 08-12-2023 11:00-0500 Respiratory rate 20 /min Vernon Ball Other [facility] Other 08-12-2023 11:00-0500 SaO2% (BldA) [Mass fraction] 94 % Vernon Ball Other [facility] Other 08-12-2023 11:00-0500 Systolic blood pressure 120 mm[Hg] Vernon Ball Other [facility] Other 07-10-2023 11:45-0500 Body height 180.34 cm Vernon Ball Other [facility] Other 07-10-2023 11:45-0500 Body mass index (BMI) [Ratio] 26.22 kg/m2 Vernon Ball Other [facility] Other 07-10-2023 11:45-0500 Body weight 85.28 kg Vernon Ball Other [facility] Other 07-10-2023 11:45-0500 Diastolic blood pressure 75 mm[Hg] Vernon Ball Other [facility] Other 07-10-2023 11:45-0500 Respiratory rate 16 /min Vernon Ball Other [facility] Other 07-10-2023 11:45-0500 Systolic blood pressure 129 mm[Hg] Vernon Ball Other [facility] Other 07-04-2023 08:03-0400 Diastolic blood pressure 93 mm[Hg] DO Vernon Ball Work Phone: [facility] 07-04-2023 08:03-0400 Heart rate 89 /min DO Vernon Ball Work Phone: [facility] 07-04-2023 08:03-0400 Respiratory rate 16 /min DO Vernon Ball Work Phone: [facility] 07-04-2023 08:03-0400 SaO2% (BldA) [Mass fraction] 93 % DO Vernon Ball Work Phone: [facility] 07-04-2023 08:03-0400 Systolic blood pressure 140 mm[Hg] DO Vernon Ball Work Phone: [facility] 07-04-2023 06:47-0400 Body height 180.34 cm DO Vernon Ball Work Phone: [facility] 07-04-2023 06:47-0400 Body temperature 98.2 [degF] DO Vernon Ball Work Phone: [facility] 07-04-2023 06:47-0400 Body weight 86.18 kg DO Vernon Ball Work Phone: [facility] 07-02-2023 13:45-0400 Body height 180.34 cm Erickson Pily Other [facility] [employer] Other 07-02-2023 13:45-0400 Body mass index (BMI) [Ratio] 26.5 kg/m2 Erickson Nascimento Other [facility] Other 07-02-2023 13:45-0400 Body weight 86.18 kg Erickson Pily Other [facility] Other 05-20-2023 10:00-0400 Body height 180.34 cm Vernon [employer] Other [facility] [employer] Other 05-20-2023 10:00-0400 Body mass index (BMI) [Ratio] 26.64 kg/m2 Vernon Ball Other [facility] Other 05-20-2023 10:00-0400 Body weight 86.64 kg Vernon Ball Other [facility] Other 05-20-2023 10:00-0400 Diastolic blood pressure 74 mm[Hg] Vernon Ball Other [facility] Other 05-20-2023 10:00-0400 Respiratory rate 12 /min Vernon Ball Other [facility] Other 05-20-2023 10:00-0400 Systolic blood pressure 117 mm[Hg] Vernon Ball Other [facility] Other 02-17-2023 10:30-0400 Body height 180.34 cm Vernon Ball Other [facility] Other 02-17-2023 10:30-0400 Body mass index (BMI) [Ratio] 27.58 kg/m2 Vernon Ball Other [facility] Other 02-17-2023 10:30-0400 Body weight 89.72 kg Vernon Ball Other [facility] Other 02-17-2023 10:30-0400 Diastolic blood pressure 78 mm[Hg] Vernon Ball Other [facility] Other 02-17-2023 10:30-0400 Respiratory rate 12 /min Vernon Ball Other [facility] Other 02-17-2023 10:30-0400 Systolic blood pressure 128 mm[Hg] Vernon Ball Other [facility] Other 11-18-2022 11:30-0400 Body height 180.34 cm Vernon Greene Other [facility] Other 11-18-2022 11:30-0400 Body mass index (BMI) [Ratio] 27.42 kg/m2 Vernon Greene Other [facility] Other 11-18-2022 11:30-0400 Body weight 89.18 kg Vernon Greene Other [facility] Other 11-18-2022 11:30-0400 Diastolic blood pressure 70 mm[Hg] Vernon Greene Other [facility] Other 11-18-2022 11:30-0400 Respiratory rate 12 /min Vernon Greene Other [facility] Other 11-18-2022 11:30-0400 Systolic blood pressure 122 mm[Hg] Vernon Greene Other [facility] Other Encounters Encounter Date Encounter Type Care Provider Facility Start: 10-07-2023 End: 10-07-2023 ambulatory Vernon Greene Other [employer] Other Start: 10-07-2023 Telephone encounter Vernon Greene [facility] Start: 10-06-2023 End: 10-06-2023 ambulatory Vernon Greene Other [employer] Other Start: 10-06-2023 Telephone encounter Vernon Greene [facility] Start: 10-01-2023 End: 10-01-2023 ambulatory Imad Asaad Other [employer] Other Start: 10-01-2023 Office outpatient vi sit 25 minutes Vernon Greene [facility] Start: 10-01-2023 Telephone encounter Imad Asaad [facility] [employer] Start: 09-02-2023 End: 09-02-2023 ambulatory Vernon Greene Other [employer] Other Start: 09-02-2023 Telephone encounter Vernon KANG [facility] Start: 08-29-2023 End: 08-29-2023 ambulatory Vernon Greene Other [employer] Other Start: 08-29-2023 Office outpatient vi sit 25 minutes Vernon Greene [facility] Start: 08-12-2023 End: 08-12-2023 ambulatory Vernon Greene Other [employer] Other Start: 08-12-2023 Transitional care nicole cleary srvc 14 day discharge Vernon Greene [facility] Start: 08-06-2023 End: 08-06-2023 ambulatory Vernon Greene Other [employer] Other Start: 08-06-2023 Telephone encounter Vernon KANG [facility] Start: 08-01-2023 End: 08-01-2023 ambulatory Vernon Greene Other [employer] Other Start: 08-01-2023 Telephone encounter Vernon KANG [facility] Start: 07-30-2023 End: 07-30-2023 ambulatory Vernon Greene Other [employer] Other Start: 07-30-2023 Telephone encounter Vernon KANG [facility] Start: 07-16-2023 End: 07-16-2023 ambulatory Navneet Puga Other [employer] Other Start: 07-16-2023 Telephone encounter Navneet Ramires [employer] Start: 07-13-2023 End: 07-13-2023 ambulatory Vernon Greene Other [employer] Other Start: 07-13-2023 Telephone encounter Vernon KANG [facility] Start: 07-10-2023 End: 07-10-2023 ambulatory Vernon Greene Other [employer] Other Start: 07-10-2023 Office outpatient vi sit 25 minutes Vernon Greene [facility] Start: 07-10-2023 Telephone encounter Vernon Greene [facility] Start: 07-04-2023 Telephone encounter Vernon Greene [facility] Start: 07-04-2023 End: 07-04-2023 ambulatory Erickson Nascimento Facility:[facility] Start: 07-04-2023 End: 07-04-2023 Admission to same day surgery center DO Vernon Greene Work Phone: [facility] [place] Start: 07-04-2023 End: 07-04-2023 ambulatory DO Vernon Greene Work Phone: [facility] Work Phone: Start: 07-02-2023 End: 07-02-2023 ambulatory Erickson Nascimento Other [employer] Other Start: 07-02-2023 Office outpatient vi sit 25 minutes Erickson Nascimento [facility] Start: 05-21-2023 End: 05-21-2023 ambulatory Vernon Greene Other [employer] Other Start: 05-21-2023 Telephone encounter Vernon Greene [facility] Start: 05-20-2023 End: 05-20-2023 ambulatory Vernon Greene Other [employer] Other Start: 05-20-2023 Patient encounter procedure Vernon Greene [facility] Start: 02-27-2023 End: 02-27-2023 ambulatory Erickson Nascimento Other [employer] Other Start: 02-27-2023 Telephone encounter Erickson KANG [facility] Start: 02-26-2023 End: 02-26-2023 ambulatory Erickson Nascimento Facility:[facility] Start: 02-26-2023 End: 02-26-2023 Patient encounter procedure DO Erickson Nascimento Work Phone: [facility] Start: 02-26-2023 End: 02-26-2023 ambulatory DO Erickson Nascimento Work Phone: [facility] Work Phone: Start: 02-26-2023 Office outpatient ne w 45 minutes Erickson Pily [facility] Start: 02-17-2023 End: 02-17-2023 ambulatory Vernon Ball Other [employer] Other Start: 02-17-2023 Office outpatient vi sit 25 minutes Vernon Ball [facility] Start: 01-09-2023 End: 01-09-2023 ambulatory Vernon Ball Other [employer] Other Start: 01-09-2023 Telephone encounter Vernon Ball [facility] Start: 12-24-2022 End: 12-24-2022 ambulatory Vernon Ball Other [employer] Other Start: 12-24-2022 Telephone encounter Vernon Ball [facility] Start: 11-26-2022 End: 11-26-2022 ambulatory Vernon Ball Other [employer] Other Start: 11-26-2022 Telephone encounter Vernon Ball [facility] Start: 11-25-2022 End: 11-26-2022 ambulatory VERNON BALL Facility:[facility] Start: 11-18-2022 End: 11-18-2022 ambulatory Vernon Ball Other [employer] Other Start: 11-18-2022 Office outpatient vi sit 25 minutes Vernon Ball [facility] Start: 11-15-2022 End: 11-16-[address] NONE LISTED REQUEST Facility:[facility] Start: 11-07-2022 End: 11-07-2022 ambulatory Vernon Ball Other [employer] Other Start: 11-07-2022 Telephone encounter [facility] Start: 08-08-2022 End: 08-09-2022 ambulatory VERNON GREENE Facility:[facility] Start: 05-15-2022 End: 05-16-2022 ambulatory VERNON GREENE Facility:[facility] Start: 05-09-2022 End: 05-10-[address] DORAN LISTED REQUEST Facility:[facility] Procedures Date Procedure Procedure Detail Performing Clinician Start: 07-04-2023 Open reduction of fracture with internal fixation DO Vernon Greene Work Phone: Start: 02-26-2023 Plain X-ray of left elbow DO Erickson Nascimento Work Phone: Start: 05-15-2022 PSA screening VERNON JC Comment on above: Performed By: #### P [facility] #### [facility] [address] [place] [address] Dr. Ginger Keane Plan of Treatment Date Care Activity Detail Author Start: 07-04-2023 [facility] Patient referral [facility] Work Phone: Immunizations Immunization Date Immunization Notes Care Provider Izabel ernandez 05-25-2018 pneumococcal polysaccharide vaccine, 23 valent Vernon Jc Other [employer] Other 07-01-2017 diphtheria, tetanus toxoids and acellular pertussis vaccine, unspecified formulation Vernon Jc Other [employer] Other 07-01-2017 pneumococcal conjuga te vaccine, 13 valent Vernon Greene Other [employer] Other Payers Date Payer Category Payer Medicare [id number]. [id number] 1958 Self-pay 1950 Unknown [id number] [id number] [id number] 1950 Unknown [id number] 2.16.84 [id number] Unknown [id number] 2.16.84 [id number] Unknown [id number] 2.16.84 [id number] Unknown [id number] 2.16.84 [id number] Unknown [id number] 2.16.8 [id number] Unknown [id number] 2.16.8 [id number] Social History Date Type Detail Facility Sex Assigned At [facility] [employer] Other Start: 1950 Sex Assigned At Male [facility] Start: 07-04-2023 Tobacco smoking stat [facility] Ex-smoker (finding) [facility] Goals Date Patient Goal Desired Activity /State Clinical Notes 11-18-2022 to 10-06-2023 Note Date & Type Note Facility 10-06-2023 Evaluation note Encounter Date Diagnosis Assessment Notes Oct, Interstitial lung disease (ICD-10 - J84.9) Oct, Hypoxia (ICD-10 - R09.02) Oct, Nicotine dependence, cigarettes, in remission (ICD-10 - F17.211) Age started 17 1 ppd Age quit 52 [facility] [employer] Other 01-31-2024 Evaluation note* Encounter Date Diagnosis Assessment Notes Treatment Notes Treatment Clinical Notes Sep, Mucopurulent chronic bronchitis (ICD-10 - [...] discussed referral to Pulmonary Clinic Sep, ASHD (arteriosclerotic heart disease) (ICD-10 - I25.10) [...] as needed. CXR, f/u from COVID infection [employer] Other 12-29-2023 Evaluation note* Encounter Date Diagnosis [...] 1 ppd Age quit 52 Continue abstinence [employer] Other [id number] Evaluation note* Encounter Date Diagnosis Assessment Notes [...] and hypoxia. MDI and oxygen for now. [employer] Other 12-01-2023 Evaluation note* Encounter Date Diagnosis Assessment Notes Treatment Notes Treatment Clinical Notes Aug, Weight loss (ICD-10 - R63.4) [employer] Other 11-09-2023 Evaluation note* Encounter Date Diagnosis [...] or bowel habits. No melena or hematochezia [employer] Other 11-01-2023 Evaluation note* Encounter Date Diagnosis [...] poor healing. 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 I have [...] Jul, Elbow mass, left (ICD-10 - R22.32) [employer] Other 09-19-2023 Evaluation note* Encounter Date Diagnosis [...] PSA (prostate specific antigen) (ICD-10 - Z12.5) [employer] Other 06-28-2023 Evaluation note* Encounter Date Diagnosis [...] as documented in the electronic medical record. [employer] Other 06-19-2023 Evaluation note* Encounter Date Diagnosis [...] wks. Nontender and mobile. Refer to [facility] [employer] Other 03-27-2023 NotePROCEDURE: XR KNEE LT 3V [...] Electronically authenticated by: VINNY MURILLO Date: 2022-11-25 10:55[facility]03-20-2023 Evaluation note* Encounter Date Diagnosis Assessment Notes Treatment Notes Treatment Clinical Notes Oct, ASHD (arteriosclerot ic heart disease) (ICD-10 - I25.10) This patient is stable without activity related CP, dyspnea or lightheadedness. They are instructed to continue exercise and AHA diet plan. 20 Mar, 2023 Controlled type 2 diabetes mellitus with hyperglycemia, [...] Initiate PPI and if no improvement, EGD [facility] [employer] Other [facility] [employer] Other Evaluation noteNo assessment information available [facility] Work Phone: History general Narrative [...] long-term current use of insulin Surgical History [facility] PTCA/STENT 2002 Surgical History [facility] 2006 Hospitalization History SEE SURGICAL [employer] Other History general Narrative - Reported* Type [...] long-term current use of insulin Surgical History [facility] PTCA/STENT 2002 Surgical History [facility] 2006 Surgical History Excision left elbow mass 3 Hospitalization History SEE SURGICAL [employer] Other Hospital Discharge instructions Additional Instructions Orthopedic [...] prescribed. You may take Motrin or Tylenol [id number] if you wish. Follow-up in [address] [facility] [address] [place], [place] [address] [phone]: Reason for referral (narrative)* Reason *Waiting for appt Referral for recurrent left Olecranon bursa and SC nodule Diagnosis 1 Olecranon bursitis o f left elbow (M70.22) Diagnosis 2 Subcutaneous nodule (R22.9) Referral [facility] Referring Provider First Name Vernon Referring Provider Last Name Jc Referring Provider Specialty Internal Me dicine Referred Organization [facility] Referred Provider Erickson Nascimento Referred Address [address] [facility] [place],[address] Referred Provider Specialty Orthopedic S urgery Referral [...] 02/17/2023 11:21:37 AM >received today, sent P2P [employer] Other Reason for referral (narrative)* Reason Referral for screeni ng colonoscopy and EGD Diagnosis 1 Unexplained weight l oss (R63.4) Diagnosis 2 Epigastric discomfor t (R10.13) Diagnosis 3 Serum lipase elevati on (R74.8) Diagnosis 4 Colon cancer screeni ng (Z12.11) Referral Organization [facility] Referring Provider First Name Vernon Referring Provider Last Name Jc Referring Provider Specialty Internal Me dicine Referred Organization [facility] Referred Provider Rochelle Woodard Referred Address [address] [place] [phone] Referred Provider Specialty Gastroentero logy Referral Priority [...] be done within the next 2-3 wks. [employer] Other Summary Purpose Family History Relationship Condition [...] readingsTBH2 week follow upRefillGASTRO UPDATE4 month Follow upNo InformationEKG resultslab results (unrecognized sect ion and content) No Status Records FoundNo Status Records Found INFORMATION SOURCE (unrecogn ized section and content) DATE CREATED AUTHOR 12/02/2022 [facility] DATE CREATED AUTHOR AUTHOR'S ORGANIZ ATION 07/16/2023 [facility] Care Teams (unrecognized sec tion and [...] BE BASED ON THE PRIMARY CLINICAL RECORDS. [employer] provides no warranty or guarantee of the accuracy or completeness of information in this document.
--- NOTE | 2023-10-14 14:24 | CT_ITS ---
The [address] [address] Patient Name: VINAY SPAULDING MRN: [id number] date: 1950 Sex: M Assigned Patient Location: CARD Current Patient Location: CARD Accession/Order Number: [id number] Exam Date: 10/14/2023 15:18 Report Date: 10/14/2023 16:01 At the request of: MACK GARDUNO Procedure: CT chest w con EXAM: CT scan of the chest using 98 mL of IV iodinated contrast. Dose reduction technique used: Automated exposure control and/or adjustment of the mA and/or kV according to patient size and/or use of iterative reconstruction technique. REASON FOR EXAM: Interstitial lung disease R09.02 COMPARISON: CT scan dated 08/02/2023 FINDINGS: Reticular interstitial opacities present in both lungs with a peripheral and lower lung predominance and symmetric distribution. Mild traction bronchiectasis in the lower lungs bilaterally. Overall extent of these findings are similar to that on 08/02/2023 although the prior groundglass opacities have resolved which are likely infectious/inflammatory. No acute airspace opacities. No pneumothorax. No pleural effusion. No acute fractures. No central pulmonary emboli. No aortic dissection. No concerning pulmonary nodules. Mildly prominent mediastinal and bilateral hilar lymph nodes are favored to be reactive. Coronary atherosclerotic calcifications are present. Remainder unremarkable. CT/CT chest w con IMPRESSION: Findings compatible with pulmonary fibrosis/interstitial lung disease. Electronically authenticated by: SANDRA ATKINSON Date: 10/14/2023 16:01
--- NOTE | 2023-10-14 14:26 | RT_ITS ---
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 The MVV is within normal limits. The airway resistance is normal. The lung volumes are reduced. The reduced diffusing capacity indicates a severe loss of functional alveolar capillary surface. Spirometry: FVC decreased 60% FEV1 decreased 73% FEV1/FVC normal 89 FEF 25-75 increased 154% Volumes: RV decreased 65% TLC decreased 62% RV/TLC normal Diffusion: - decreased 34% Flow Volume Loop: - decreased Impression: No obstructive disease present Moderate restrictive disease present Decreased diffusion capacity which may be secondary to ILD, left ventricular dysfunction or pulmonary vascular disease Electronically Signed On 10-14-2023 20:54:49 EST by MACK GARDUNO
== END 2023-10-14 12:49 | disposition home or self-care (01) ==
LOC: CARD 12:49
PROVIDERS: PCP Internal Medicine; Visit Provider Internal Medicine
DX: J84.9 Interstitial pulmonary disease, unspecified (principal); R09.02 Hypoxemia; F17.211 Nicotine dependence, cigarettes, in remission
CPT/HCPCS: 71260; 94010; 94726; 94729

== ENCOUNTER 2023-10-28 15:51 | Outpatient (OUT) | payer MEDICARE, SELFPAY ==
[2023-10-28 16:12] LABS: Basophils Absolute Auto 0.1 10^3/uL (0.0-0.1); Basophils Percent Auto 0.7 % (0.2-2.0); Eosinophils Absolute Auto 0.2 10^3/uL (0.0-0.7); Eosinophils Percent Auto 2.2 % (0.9-7.0); Hemoglobin 13.1 g/dL (14.0-18.0); Immature Granulocytes Abs Auto 0.01 10^3/uL (0.00-0.03); Immature Granulocytes Pct Auto 0.1 % (0.0-0.5); Lymphocytes Absolute Auto 1.9 10^3/uL (1.2-3.8); Lymphocytes Percent Auto 26.6 % (20.5-60.0); Mean Corpuscular HGB Conc 32.8 g/dL (29.9-35.2); Mean Corpuscular Hemoglobin 30.2 pg (25.9-34.0); Mean Corpuscular Volume 92.2 fL (80.0-94.0); Mean Platelet Volume 8.9 fL (9.5-13.5); Monocytes Absolute Auto 0.8 10^3/uL (0.3-0.8); Monocytes Percent Auto 10.4 % (1.7-12.0); Neutrophils Absolute Auto 4.3 10^3/uL (1.4-6.5); Platelet Count 296 10^3/uL (150-450); Red Blood Count 4.34 10^6/uL (4.70-6.10); Red Cell Distribution Width 14.6 % (11.0-15.0); White Blood Count 7.2 10^3/uL (4.0-11.0)
[2023-10-28 16:25] LABS: Erythrocyte Sedimentation Rate 62 mm/hr (<=20)
[2023-10-28 16:32] LABS: Alanine Aminotransferase 17 U/L (16-63); Albumin Globulin Ratio 0.5; Albumin Level 2.8 g/dL (3.4-5.0); Alkaline Phosphatase 94 U/L (46-116); Anion Gap 14.5; Aspartate Amino Transferase 23 U/L (15-37); BUN Creatinine Ratio 17.5; Bilirubin Total 0.6 mg/dL (0.2-1.0); C Reactive Protein <0.50 mg/dL (<=0.50); Calcium 8.8 mg/dL (8.5-10.1); Chloride 100 mmol/L (98-107); Estimated GFR (African America >60 (>=60); Estimated GFR (Non-African Ame >60 (>=60); Globulin 5.8 g/dL; Glucose 135 mg/dL (74-106); Potassium 4.5 mmol/L (3.5-5.1); Sodium 138 mmol/L (136-145); Total Protein 8.6 g/dL (6.4-8.2); Uric Acid 4.2 mg/dL (3.5-7.2)
[2023-10-30 06:09] LABS: Rheumatoid Factor (RF) 183.9 IU/mL (<14.0)
[2023-10-30 13:08] LABS: Anti-CCP Ab, IgG/IgA >250 units (0-19)
[2023-10-31 15:09] LABS: Antinuclear Antibodies, IFA Positive (.)
== END 2023-10-28 15:52 | disposition home or self-care (01) ==
LOC: LAB 15:53
PROVIDERS: PCP Internal Medicine; Visit Provider Internal Medicine
DX: M06.4 Inflammatory polyarthropathy (principal); U07.1 COVID-19
CPT/HCPCS: 36415; 80053; 84550; 85025; 85652; 86038; 86140; 86200; 86431

== ENCOUNTER 2024-02-11 14:56 | Outpatient (OUT) | payer MEDICARE, SELFPAY ==
[2024-02-11 16:07] LABS: Creatine Kinase 30 U/L (39-308)
[2024-02-13 14:10] LABS: Anti-dsDNA Antibodies <1 IU/mL (0-9); Antiscleroderma-70 Antibodies <0.2 AI (0.0-0.9); Sjogren's Anti-SS-A <0.2 AI (0.0-0.9); Sjogren's Anti-SS-B <0.2 AI (0.0-0.9)
== END 2024-02-11 14:57 | disposition home or self-care (01) ==
LOC: LAB 15:00
PROVIDERS: PCP Internal Medicine; Visit Provider Internal Medicine Rheumatology
DX: M79.10 Myalgia, unspecified site (principal); M25.50 Pain in unspecified joint; R76.0 Raised antibody titer
CPT/HCPCS: 36415; 82550; 86225; 86235

== ENCOUNTER 2024-03-11 12:34 | Outpatient (OUT) | payer MEDICARE, SELFPAY ==
[2024-03-11 12:56] LABS: Hemoglobin 13.7 g/dL (14.0-18.0)
--- NOTE | 2024-03-11 13:41 | RT_ITS ---
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 Findings were considered accurate and reproducible. Both pre- and post-bronchodilator values utilized for spirometry. Spirometry (based on pre-bronchodilator values): -FEV1/FVC: Normal @ 92% -FEV1: Normal @ 83% -FVC: Moderately reduced @ 66% -There is no significant bronchodilator response. Lung volumes by plethysmography: -RV: Reduced @ 47% -TLC: Moderately reduced @ 62% Diffusion capacity: -DLCO: Severe reduction @ 42% when corrected for Hb 13.7g/dL Comparison from 10/14/2023: -FEV1 improved from 73% -FVC improved from 60% -TLC unchanged from 62% -DLCO improved from 34% Impressions: -Spirometry shows a moderate restrictive pattern confirmed with a moderately decreased TLC, along with a severe diffusion impairment. Pattern would be consistent with patient's stated history of ILD. When compared to prior testing 10/14/2023, there is slight improvement in spirometry and diffusion capacity, though TLC remains stagnant. Clinical correlation required. Electronically Signed On 03-16-2024 17:31:13 EDT by Alli Sims
[2024-03-11] MEDS: ALBUTEROL SULFATE 2.5 MG/3 ML VIAL NEB IH (13:53)
== END 2024-03-11 12:35 | disposition home or self-care (01) ==
LOC: CARD 12:34
PROVIDERS: PCP Internal Medicine; Visit Provider Internal Medicine Rheumatology
DX: J84.10 Pulmonary fibrosis, unspecified (principal); R06.00 Dyspnea, unspecified; M35.9 Systemic involvement of connective tissue, unspecified
CPT/HCPCS: 36415; 85018; 94060; 94726; 94729

== ENCOUNTER 2024-04-20 12:40 | Outpatient (OUT) | payer MEDICARE, SELFPAY ==
--- NOTE | 2024-04-20 13:05 | CT_ITS ---
[address] [address] Patient Name: VINAY SPAULDING MRN: [id number] date: 1950 Sex: M Assigned Patient Location: CT Current Patient Location: Accession/Order Number: [id number] Exam Date: 04/20/2024 12:57 Report Date: 04/21/2024 06:19 At the request of: ELVIN GUILLEN Procedure: CT chest high res EXAMINATION: CT chest high res HISTORY: pulmonary fibrosis COMPARISON: CT chest 10/14/2023 TECHNIQUE: Axial images were obtained at 10 mm intervals during inspiration and expiration in the supine and prone positions. No IV contrast given. Dose reduction techniques were achieved by using automated exposure control and/or adjustment of mA and/or kV according to patient size and/or use of iterative reconstruction technique. FINDINGS: LUNGS: Peripheral fibrosis, or coarsening of interstitial markings, and bronchiectasis throughout the lungs bilaterally. No appreciable air trapping. PLEURA: No mass, effusion, or pneumothorax. AWILDA: No mass or adenopathy. MEDIASTINUM: No mass or adenopathy. HEART: No significant enlargement or pericardial effusion.. Coronary arteries: Moderate AORTA: No aneurysm.. CHEST WALL: No mass or axillary adenopathy LIMITED ABDOMEN: No suspicious findings. Limited images of the upper abdomen. OTHER: Negative. CT/CT chest high res IMPRESSION: 1. Grossly stable moderate to marked pulmonary fibrosis, chronic interstitial changes, bronchiectasis. 2. No acute infiltrates. Electronically authenticated by: VINNY MURILLO Date: 04/21/2024 06:19
== END 2024-04-20 12:41 | disposition home or self-care (01) ==
LOC: CT 12:40
PROVIDERS: PCP Internal Medicine; Visit Provider Internal Medicine
DX: J84.10 Pulmonary fibrosis, unspecified (principal); M06.9 Rheumatoid arthritis, unspecified
CPT/HCPCS: 71250

== ENCOUNTER 2024-06-02 09:13 | Outpatient (OUT) | payer MEDICARE, SELFPAY ==
[2024-06-02 09:38] LABS: Basophils Absolute Auto 0.1 10^3/uL (0.0-0.1); Basophils Percent Auto 0.7 % (0.2-2.0); Eosinophils Absolute Auto 0.1 10^3/uL (0.0-0.7); Eosinophils Percent Auto 1.5 % (0.9-7.0); Hematocrit 40.8 % (42.0-54.0); Hemoglobin 14.2 g/dL (14.0-18.0); Immature Granulocytes Abs Auto 0.02 10^3/uL (0.00-0.03); Immature Granulocytes Pct Auto 0.2 % (0.0-0.5); Lymphocytes Percent Auto 33.7 % (20.5-60.0); Mean Corpuscular HGB Conc 34.8 g/dL (29.9-35.2); Mean Corpuscular Hemoglobin 32.5 pg (25.9-34.0); Mean Corpuscular Volume 93.4 fL (80.0-94.0); Mean Platelet Volume 9.1 fL (9.5-13.5); Monocytes Absolute Auto 0.7 10^3/uL (0.3-0.8); Monocytes Percent Auto 7.9 % (1.7-12.0); Platelet Count 245 10^3/uL (150-450); Red Blood Count 4.37 10^6/uL (4.70-6.10); Red Cell Distribution Width 13.3 % (11.0-15.0)
[2024-06-02 10:14] LABS: Estimated Average Glucose 128 mg/dL; Glycohemoglobin A1C 6.1 % (4.5-6.2)
[2024-06-02 10:18] LABS: Alanine Aminotransferase 25 U/L (16-63); Albumin Globulin Ratio 0.8; Albumin Level 3.5 g/dL (3.4-5.0); Alkaline Phosphatase 151 U/L (46-116); Anion Gap 12.6; Aspartate Amino Transferase 19 U/L (15-37); BUN Creatinine Ratio 16.4; Calcium 9.4 mg/dL (8.5-10.1); Carbon Dioxide 30.1 mmol/L (21.0-32.0); Chloride 98 mmol/L (98-107); Chol HDL Ratio 2.4; Cholesterol 127 mg/dL (<=200); Estimated GFR (African America >60 (>=60 mL/min/1.73m^2); Estimated GFR (Non-African Ame >60 (>=60 mL/min/1.73m^2); Globulin 4.2 g/dL; Glucose 144 mg/dL (74-106); HDL Cholesterol 52 mg/dL (40-60); LDL Cholesterol Calculated 50.8 mg/dL; Potassium 3.7 mmol/L (3.5-5.1); Sodium 137 mmol/L (136-145); Total Protein 7.7 g/dL (6.4-8.2); Triglycerides 121 mg/dL (<=150); VLDL CHOLESTEROL 24.2 mg/dL
[2024-06-02 14:56] LABS: Microalbumin Urine Random 23.4 mg/dL (<=30.0)
== END 2024-06-02 09:14 | disposition home or self-care (01) ==
LOC: LAB 09:14
PROVIDERS: PCP Internal Medicine; Visit Provider Internal Medicine
DX: E11.65 Type 2 diabetes mellitus with hyperglycemia (principal); I25.10 Atherosclerotic heart disease of native coronary artery without angina pectoris; E78.00 Pure hypercholesterolemia, unspecified; Z12.5 Encounter for screening for malignant neoplasm of prostate
CPT/HCPCS: 36415; 80053; 80061; 82043; 83036; 85025; G0103

== ENCOUNTER 2024-06-24 14:51 | Outpatient (OUT) | payer MEDICARE, SELFPAY ==
[2024-06-24 15:17] LABS: Basophils Percent Auto 0.3 % (0.2-2.0); Eosinophils Absolute Auto 0.1 10^3/uL (0.0-0.7); Eosinophils Percent Auto 1.5 % (0.9-7.0); Hematocrit 39.5 % (42.0-54.0); Hemoglobin 13.8 g/dL (14.0-18.0); Immature Granulocytes Abs Auto 0.02 10^3/uL (0.00-0.03); Immature Granulocytes Pct Auto 0.2 % (0.0-0.5); Lymphocytes Absolute Auto 1.8 10^3/uL (1.2-3.8); Lymphocytes Percent Auto 21.3 % (20.5-60.0); Mean Corpuscular HGB Conc 34.9 g/dL (29.9-35.2); Mean Corpuscular Hemoglobin 32.8 pg (25.9-34.0); Mean Corpuscular Volume 93.8 fL (80.0-94.0); Mean Platelet Volume 9.2 fL (9.5-13.5); Monocytes Absolute Auto 0.6 10^3/uL (0.3-0.8); Monocytes Percent Auto 7.3 % (1.7-12.0); Neutrophils Percent Auto 69.4 % (43.0-75.0); Platelet Count 241 10^3/uL (150-450); Red Blood Count 4.21 10^6/uL (4.70-6.10); Red Cell Distribution Width 13.2 % (11.0-15.0); White Blood Count 8.7 10^3/uL (4.0-11.0)
== END 2024-06-24 14:52 | disposition home or self-care (01) ==
LOC: LAB 14:52
PROVIDERS: PCP Internal Medicine; Visit Provider Internal Medicine Rheumatology
DX: Z79.899 Other long term (current) drug therapy (principal); Z79.624 Long term (current) use of inhibitors of nucleotide synthesis
CPT/HCPCS: 36415; 85025

== ENCOUNTER 2024-07-01 13:07 | Outpatient (OUT) | payer MEDICARE, SELFPAY ==
[2024-07-01 13:22] LABS: Basophils Absolute Auto 0.1 10^3/uL (0.0-0.1); Basophils Percent Auto 0.5 % (0.2-2.0); Eosinophils Absolute Auto 0.1 10^3/uL (0.0-0.7); Eosinophils Percent Auto 1.4 % (0.9-7.0); Hemoglobin 13.9 g/dL (14.0-18.0); Immature Granulocytes Abs Auto 0.02 10^3/uL (0.00-0.03); Immature Granulocytes Pct Auto 0.2 % (0.0-0.5); Lymphocytes Absolute Auto 2.2 10^3/uL (1.2-3.8); Lymphocytes Percent Auto 22.8 % (20.5-60.0); Mean Corpuscular HGB Conc 34.8 g/dL (29.9-35.2); Mean Corpuscular Hemoglobin 32.8 pg (25.9-34.0); Mean Corpuscular Volume 94.3 fL (80.0-94.0); Monocytes Absolute Auto 0.7 10^3/uL (0.3-0.8); Monocytes Percent Auto 6.8 % (1.7-12.0); Neutrophils Absolute Auto 6.7 10^3/uL (1.4-6.5); Neutrophils Percent Auto 68.3 % (43.0-75.0); Platelet Count 244 10^3/uL (150-450); Red Blood Count 4.24 10^6/uL (4.70-6.10); Red Cell Distribution Width 13.5 % (11.0-15.0); White Blood Count 9.7 10^3/uL (4.0-11.0)
--- OUTSIDE RECORDS SUMMARY | 2024-07-01 13:30 | XMS_ITS | CCD ---
Author Organization [facility] Care Team Providers Care Energy Efficiency Engineer Name Role Phone Vernon Greene Unavailable VERNON GREENE Admitting Unavailable JC, VERNON Attending Unavailable JC, VERNON Primary Care Unavailable BALL, VERNON Consulting Unavailable ZIEBER, DR VINYN Evans Consulting Unavailable JC, VERNON Primary Care [...] Consulting Unavailable DO Erickson Nascimento Attending Provider [phone] Erickson Nascimento Unavailable DO Erickson Nascimento Attending Provider [phone] DO Vernon Greene Primary Care Provider Navneet Puga Unavailable Asaad, Imad Unavailable DO Vernon Greene Primary Care Provider MD Carlos Guzmán Attending Provider [phone] Carlos Guzmán Admitting Unavailable Carlos Guzmán Attending Unavailable Vernon Greene Primary Care Unavailable Carlos Guzmán Admitting Unavailable Carlos Guzmán Attending Unavailable Vernon Greene Primary Care Unavailable Erickson Nascimento Admitting Unavailable Erickson Nascimento Attending Unavailable Erickson Nascimento Admitting Unavailable Erickson Nascimento Attending Unavailable Vernon Greene Primary Care Unavailable Carlos Guzmán Admitting Unavailable Carlos Guzmán Attending Unavailable Vernon Greene Primary Care Unavailable CHELA ZARATE Attending Unavailable CHELA ZARATE Referring Unavailable Medications Current Medications Medication Drug Class(es) Dates Sig (Normalized) Sig (Original) Accu-Chek Nury Plus - (20 sources) Accu-Chek Nury Plus - USE 1 STRIP TO TEST BLOOD SUGAR ONCE EVERY DAY for 90 Active [id number] 200 actuat albuterol 0.09 mg/actuat metered dose inhaler (12 sources) beta2-Adrenergic Agonist Start: 12-22-2023 End: 04-26-2024 take 2 puff(s) by mouth every six hours as needed for wheezing Albuterol Sulfate Active 0 .ROUTE .COMPLEX 8.5 April 26, 2024 9:28pm INHALE 2 PUFFS BY MOUTH EVERY 6 HOURS NEEDED FOR WHEEZING OR SHORTNESS OF BREATH Start: 12-22-2023 End: 12-22-2023 take 1 puff(s) by inhalation every six hours Albuterol Sulfate Discontinued 2 PUFF INHALATION Every 6 hours December 22, 2023 12:00am December 22, 2023 4:50pm Start: 09-02-2023 take 2 puff(s) by in halation every six hours as needed for wheezing Albuterol Sulfate HFA 108 (90 Base) MCG/ACT 2 puffs Inhalation every 6 hours as needed for wheezing or shortness of breathe Sep, Active aspirin 81 mg oral tablet (6 sources) Platelet Aggregation Inhibitor, Nonsteroidal Anti-inflammatory Drug Start: 07-04-2023 take 81 mg by mouth once daily Aspirin Active 81 MG PO Daily July 04, 2023 12:00am atorvastatin 80 mg oral tablet (20 sources) HMG-CoA Reductase Inhibitor Start: 12-19-2023 take 1 tablet by mouth once daily in the evening Atorvastatin Active 0 .ROUTE .COMPLEX 90 December 19, 2023 1:34pm TAKE 1 TABLET BY MOUTH EVERY DAY IN THE EVENING Start: 07-04-2023 End: 12-19-2023 take 80 mg by mouth once daily Atorvastatin Discontinu ed 80 MG PO Daily July 04, 2023 12:00am December 19, 2023 1:34pm dapagliflozin 10 mg oral tablet (20 sources) [...] 3 MG/0 .5ML as directed Subcutaneous Active hydroxychloroquine sulfate 200 mg oral tablet (3 sources) Antimalarial, Antirheumatic Agent Start: 12-01-2023 take 1 tablet by mouth once daily Hydroxychloroquine (Plaquenil) 200 mg tablet Active 200 MG PO Daily December 01, 2023 12:00am losartan potassium 25 mg oral [...] omeprazole 20 mg delayed release oral tablet (11 sources) Proton Pump Inhibitor Start: 07-04-2023 take 20 mg by mouth once daily Omeprazole Active 20 MG PO Daily July 04, 2023 12:00am Start: 11-18-2022 take 1 capsule by [facility] once daily Omeprazole 40 MG 1 capsule 30 minutes before morning meal Orally Once a day for 30 days Oct, Active Semaglutide (1 source) Start: 01-28-2024 inject 1 mg by subcu taneous injection every week Semaglutide (Ozempic) 1 mg/dose (4 mg/3 mL) pen injector Active 1 MG SUBCUT every week 11 26January 28, 2024 12:00am Completed/Discontinued Medications Medication Drug Class(es) Dates Sig (Normalized) Sig (Original) Dulaglutide (Trulicity) 3 mg/0.5 mL pen injector (6 sources) Start: 07-04-2023 End: 01-28-2024 Dulaglutide (Trulicity) 3 mg/0.5 mL pen injector Discontinued 3 MG SUBCUT every week July 04, 2023 12:00am January 28, 2024 5:52pm Start: 07-04-2023 Dulaglutide (T rulicity) 3 mg/0.5 mL pen injector Active 3 MG SUBCUT every week July 03, 2023 11:00pm Start: 07-04-2023 Dulaglutide (T rulicity) 3 mg/0.5 mL pen injector Active 3 MG SUBCUT every week July 04, 2023 12:00am meloxicam 15 mg oral tablet (11 sources) Nonsteroidal Anti-inflammatory Drug Start: 12-03-2023 End: 05-26-2024 take 1 tablet by mouth once daily Meloxicam Discontinued 0 .ROUTE .COMPLEX December 03, 2023 9:57am May 26, 2024 1:31pm TAKE 1 TABLET BY MOUTH EVERY DAY Start: 10-20-2023 End: 12-03-2023 take 15 mg by mouth once daily Meloxicam Discontinued 15 MG PO Daily November 03, 2023 6:58pm December 03, 2023 9:58am traMADol hydrochloride 50 mg oral tablet (6 sources) Opioid Agonist Start: 07-04-2023 End: 05-26-2024 take 50 mg by mouth every four hours Tramadol Discontinued 50 MG PO Q4H 10 7 July 04, 2023 12:00am May 26, 2024 1:32pm Problems Active Problems Problem Classification Problem Date Documented Da te Episodic/Chronic Abdominal pain (2 sources) Epigastric pain Episodic Cardiac dysrhythmias (9 sources) Tachycardia, unspecified; Translations: [Sinus tachycardia] Episodic Chronic obstructive pulmonary disease and bronchiectasis (20 sources) Acute exacerbation of chronic obstructive airways disease; Translations: [Chronic obstructive pulmonary disease with (acute) exacerbation] Chronic Coronary atherosclerosis and other heart disease (20 sources) Coronary arteriosclerosis; Translations: [Atherosclerotic heart disease of [place] coronary artery without angina pectoris] Chronic Diabetes [...] sources) H/O: high risk medication; Translations: [Other long-term (current) drug therapy] Episodic Other aftercare (2 sources) Other long-term (current) drug therapy; Translations: [OTH DRY CELL AND BATTERY ASSEMBLER CURRENT DRUG THERAPY] Onset: 05-19-2022 Episodic Other connective tissue disease (3 sources) Olecranon bursitis, left elbow Episodic Other connective tissue disease (1 source) Pain in right hand; Translations: [Pain in right hand] Onset: 12-09-2023 Episodic Other gastrointestinal disorders (20 sources) Intra-abdominal [...] serum enzymes Episodic Other lower respiratory disease (8 sources) Interstitial lung disease; Translations: [Interstitial pulmonary disease, unspecified] 10-20-2023 Chronic Other lower respiratory disease (6 sources) Interstitial pulmonary disease, unspecified; 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 Other lower respiratory disease (1 source) Fibrosis of lung; Translations: [Pulmonary fibrosis, unspecified] 05-04-2024 Chronic Other lower respiratory disease (9 sources) Hypoxemia; Translations: [Hypoxemia] Episodic Other lower respiratory disease (5 sources) Hypoxia; Translations: [Hypoxemia] 10-18-2023 Episodic Other nervous system disorders (20 sources) [...] conditions (not mental disorders or infectious disease) (6 sources) Encounter for screening for malignant neoplasm of prostate; Translations: [Encounter for screening for malignant neoplasm of colon] Onset: 05-19-2022 Episodic Other skin disorders (1 source) Localized swelling, mass and lump, unspecified Episodic Other skin disorders (1 source) Localized swelling, mass and lump, left upper limb Episodic Other skin disorders (7 sources) Localized swelling, mass and lump, unspecified upper limb; Translations: [Elbow mass] Onset: 07-04-2023 07-04-2023 Episodic Other upper respiratory disease (20 sources) Bleeding from nose; Translations: [Epistaxis] Episodic Rheumatoid arthritis and related disease (15 sources) Inflammatory polyarthropathy; Translations: [Inflammatory polyarthropathy] 10-20-2023 Chronic Spondylosis; intervertebral disc disorders; other back problems (20 sources) Lumbar spondylosis; Translations: [Spondylosis without myelopathy or radiculopathy, lumbar region] Chronic Substance-related disorders (20 sources) Tobacco user; Translations: [Nicotine dependence, cigarettes, in remission] Chronic Systemic lupus erythematosus and connective tissue disorders (1 source) Systemic involvement of connective tissue, unspecified; Translations: [Systemic involvement of connective tissue, unspecified] Onset: 12-31-2023 Chronic Unclassified (1 source) Localized swelling, mass and lump, left upper limb; Translations: [Localized swelling, mass and lump, left upper limb] Onset: 07-04-2023 Unclassified (1 source) Pain in left elbow; Translations: [Pain in left elbow] Onset: 02-26-2023 Viral infection (6 sources) COVID-19; Translations: [Pneumonia due to COVID-19 virus] 10-18-2023 Episodic Past or Other Problems Problem Classification Problem Date Documented Da te Episodic/Chronic Esophageal disorders (5 sources) Esophageal disorders Pneumonia (except that caused by tuberculosis or sexually transmitted disease) (3 sources) Pneumonia (except that caused by tuberculosis or sexually transmitted disease) Viral infection (2 sources) COVID-19 Results Test Name Value Interpretation Reference Range Facility XR RIBS 2 VIEWS LEFT WITH CH EST ANTEROPOSTERIORon 05-17-2024 XR RIBS 2 VIEWS LEFT WITH CHEST ANTEROPOSTERIOR TITLE OF EXAM: XR - RIBS UNILAT W PA CHEST REASON FOR EXAM: Left sided pain TECHNIQUE: 4 radiographs of the chest and ribs. COMPARISON: None FINDINGS: Mildly displaced fractures of the left lateral fifth and sixth ribs. Normal lung expansion. Moderate to severe diffuse reticular opacities. No focal consolidation. No significant effusion or pneumothorax. The cardiomediastinal silhouette is normal. No upper abdominal abnormality. IMPRESSION: 1. Mildly displaced fractures of the left lateral fifth and sixth ribs. 2. Pulmonary fibrosis. DICTATED ON: 05/17/2024 12:46 PM This report has been electronically signed in approved by the interpreting radiologist. Electronically Signed Tereso Kauffman M.D. 2024-05-17 12:47:15 Normal Not Available Hemoglobin [Mass/volume] in Bloodon 03-11-2024 Hemoglobin (Bld) [Mass/Vol] 13.7 g/dL Low 14.0-18. 0 [facility] QuantiFERON TB Goldon 2023 QFTB Criteria Normal . [facility] Comment on above: Result Comment: Damion tiFERON-TB Gold Plus is a qualitative indirect test for M tuberculosis infection (including disease) and is intended for use in conjunction with risk assessment, radiography, and other medical and diagnostic evaluations. The QuantiFERON-TB Gold Plus result is determined by subtracting the Nil value from either TB antigen (Ag) value. The Mitogen tube serves as a control for the test. Performed By: #### Q UANT TB ####[facility] , Quant TB Ag Value 0.02 Normal . [facility] Comment on above: Performed By: #### Q UANT TB ####[facility] , Quant TB Gold Plus Negative Normal Negative [facility] Comment on above: Result Comment: No r esponse to M tuberculosis antigens detected. Infection with M tuberculosis is unlikely, but high risk individuals should be considered for additional testing (ATS/IDSA/CDC Clinical Practice Guidelines, 2017). The reference range is an Antigen minus Nil result of <0.35 IU/mL. The specimen received for QuantiFERON testing was incubated by the ordering institution. Specific procedures outlined in our Directory of Services and in the package insert for the QuantiFERON Gold (In Tube) test must be followed to enable for proper stimulation of cells for the production of interferon gamma. Chemiluminescence immunoassay methodology Performed at: [facility] [address] [id number] Diamond Saw Operator: Krunal Nichols PhD, Phone: [phone] PERFORMED BY: [place] [address] PATHOLOGIST QUALITY CONTROL TECH ADELFO RAMIREZ M.D. Performed By: #### Q UANT TB ####[facility] , Quant TB2 Ag Value 0.02 Normal . [facility] Comment on above: Performed By: #### Q UANT TB ####[facility] , Quantiferon Nil Value 0.02 Normal . [facility] Comment on above: Performed By: #### Q UANT TB ####[facility] , Quantiferon TB Mitogen >10.00 Normal . [facility] Comment on above: Performed By: #### Q UANT TB ####[facility] , Glucose mean value [Mass/vol ume] in Blood Estimated from glycated hemoglobinon 12-29-2023 Average glucose Estimated from glycated hemoglobin (Bld) [Mass/Vol] 134 mg/dL [facility] Laboratory - Hematology and Cell countson 12-29-2023 HbA1c (Bld) [Mass fraction] 6.3 % 4.5-6.2 [facility] Comment on above: ADA RECOMMENDED LIMI T 4.0 - 6.0ADA THERAPEUTIC TARGET < 7.0ACTION SUGGESTED> 7.0 XR knee BI 2Von 12-09-2023 XR knee BI 2V [facility] [address] [place] [id number] XRay Report Signed Patient: Mariano Gutierrez MR#: [id number] : 1950 Acct:[id number] Age/Sex: 73 / M ADM Date: 12/09/23 Loc: ICXD Room: Type: [facility] Attending Dr: Carlos Guzmán MD Copies to: Carlos Guzmán MD Ordering Provider: Carlos Guzmán MD Date of Service: 12/09/23 XR/XR hand BI 2V: HAND PAIN ([id number]) XR/XR knee BI 2V: KNEE PAIN 2 views both hand plain film COMPARISON: None HISTORY: Bilateral hand pain and swelling for years ACUTE FINDINGS: None DEGENERATIVE CHANGE: Mild bilateral hand degeneration SOFT TISSUE FINDINGS: Unremarkable JOINT EFFUSION: None POSTOP CHANGES: None BONY MINERALIZATION: Adequate XR/XR hand BI 2V IMPRESSION: Degenerative change 2 views both knees Adequate alignment. No acute bony findings. Minor degenerative changes bilaterally. Small joint effusions. Unremarkable soft tissues. Mild atherosclerosis. IMPRESSION: Mild degenerative change. Impression dictated by: Gregory Schmidt M.D.12/09/2023 4:00 PM Dictation Location: [place] [address] Transcribed By: [facility] 12/09/23 1600 Dictated By: Gregory Schmidt DO 12/09/23 1556 Signed By: 12/09/23 1600 Normal [facility] VANESSA Antinuclear Antibodieson 11-24-2023 Antinuclear Abs, IFA Positive Critically abnormal . [facility] Comment on above: Result Comment: Nega tive <1:80 Borderline 1:80 Positive >1:80 Performed By: #### K APPA, ANCA PROF, C4, CH50, HBSAB, HBCAB, C3, HCV RX PCR, HBSAG, VANESSA ####[facility] , Homogeneous Pattern 1:640 High . [facility] Comment on above: Result Comment: ICAP nomenclature: [id number] Performed By: #### K APPA, ANCA PROF, C4, CH50, HBSAB, HBCAB, C3, HCV RX PCR, HBSAG, VANESSA ####[facility] , Note 1 Normal . [facility] Comment on above: Result Comment: Prashant bhupendra Potential Disease Association Homogeneous Systemic Lupus Erythematosus, Drug Induced Systemic Lupus Erythematosus, Chronic Autoimmune hepatitis, Juvenile Idiopathic Arthritis Speckled Sjogren Syndrome, Systemic Lupus Erythematosus, Subacute Cutaneous Lupus, Lupus, Congenital Heart Block, Mixed Connective Tissue Disease, Scleroderma-diffuse, Scleroderma-Autoimmune Myositis Overlap Syndrome, Systemic Lupus Zttppmqwkrfon-Izmcetvvrsk-Bizlvcqppy Myositis Overlap Syndrome, Systemic Autoimmune Rheumatic Disease, Undifferentiated Connective Tissue Disease Nucleolar Systemic Sclerosis, Scleroderma-Autoimmune Myositis Overlap Syndrome, Sjogren Syndrome, Raynaud phenomenon, Pulmonary Arterial Hypertension, Systemic Autoimmune Rheumatic Disease, Cancer Centromere Scleroderma-CREST, Limited Cutaneous SSc, Raynaud's Phenomenon, Primary Biliary Cholangitis Nuclear Dot Primary Biliary Cholangitis Nuclear Primary Biliary Cholangitis, Autoimmune Membrane Hepatitis/Liver disease, Systemic Autoimmune Rheumatic Disease, Autoimmune Cytopenias, Linear Scleroderma, Antiphospholipid Syndrome Performed at: [address] [id number] Diamond Saw Operator: Krunal Nichols PhD, Phone: [phone] Performed By: #### K APPA, ANCA PROF, C4, CH50, HBSAB, HBCAB, C3, HCV RX PCR, HBSAG, VANESSA ####[facility] , ANCA Profile (ANCA+MPO+PR3)o n 11-24-2023 Antimyeloperoxidase (MPO) Abs 1.8 High 0.0-0.9 [facility] Comment on above: Performed By: #### K APPA, ANCA PROF, C4, CH50, HBSAB, HBCAB, C3, HCV RX PCR, HBSAG, VANESSA ####[facility] , Atypical pANCA <1:20 Normal Neg:<1:20 [facility] Comment on above: Result Comment: The atypical pANCA pattern has been observed in a significant percentage of patients with ulcerative colitis, primary sclerosing cholangitis and autoimmune hepatitis. Performed at: [address] [id number] Diamond Saw Operator: Blanca Olmedo MD, Phone: [phone] Performed at: [address] [id number] Diamond Saw Operator: Krunal Nichols PhD, Phone: [phone] Performed By: #### K APPA, ANCA PROF, C4, CH50, HBSAB, HBCAB, C3, HCV RX PCR, HBSAG, VANESSA ####[facility] , Cytoplasmic (C-ANCA) <1:20 Normal Neg:<1:20 [facility] Comment on above: Performed By: #### K APPA, ANCA PROF, C4, CH50, HBSAB, HBCAB, C3, HCV RX PCR, HBSAG, VANESSA ####[facility] , Perinuclear (P-ANCA) <1:20 Normal Neg:<1:20 [facility] Comment on above: Result Comment: The presence of positive fluorescence exhibiting P-ANCA or C-ANCA patterns alone is not specific for the diagnosis of Staci's Granulomatosis (WG) or microscopic polyangiitis. Decisions about treatment should not be based solely on ANCA IFA results. The International ANCA Group Consensus recommends follow up testing of positive sera with both MT- 3 and MPO-ANCA enzyme immunoassays. As many as 5% serum samples are positive only by EIA. Ref. AM J Clin Pathol 1999;111:507-513. Performed By: #### K APPA, ANCA PROF, C4, CH50, HBSAB, HBCAB, C3, HCV RX PCR, HBSAG, VANESSA ####[facility] , Proteinase 3 (PR3) Antibodies <0.2 Normal 0.0-0.9 [facility] Comment on above: Result Comment: PERF ORMED BY: [facility] [address] [place] [address] PATHOLOGIST QUALITY CONTROL TECH ADELFO RAMIREZ M.D. Performed By: #### K APPA, ANCA PROF, C4, CH50, HBSAB, HBCAB, C3, HCV RX PCR, HBSAG, VANESSA ####[facility] , Alanine aminotransferase [En zymatic activity/volume] in Serum or PlasmaOrdered By: Carlos Guzmán on 11-24-2023 ALT [Catalytic activity/Vol] 11 U/L [facility] Albumin [Mass/volume] in Ser um or PlasmaOrdered By: Carlos Guzmán on 11-24-2023 Albumin [Mass/Vol] 3.5 g/dL 2.9-4.4 [facility] Albumin [Mass/volume] in Ser um or Plasma by Bromocresol green (BCG) dye binding methoOrdered By: Carlos Guzmán on 11-24-2023 Albumin BCG dye [Mass/Vol] 3.8 g/dL 3.5-5.7 [facility] Albumin/Protein.total in 24 hour Urine by ElectrophoresisOrdered By: Carlos Guzmán on 11-24-2023 Albumin Elph (24H U) [Mass fraction] 50.7 % . [facility] Alkaline phosphatase [Enzyma tic activity/volume] in Serum or PlasmaOrdered By: Carlos Guzmán on 11-24-2023 ALP [Catalytic activity/Vol] 98 U/L 34-104 [facility] Aspartate aminotransferase [ Enzymatic activity/volume] in Serum or PlasmaOrdered By: Carlos Guzmán on 11-24-2023 AST [Catalytic activity/Vol] 15 U/L 13-39 [facility] Automated erythrocytes count in urine sediment (number/area)Ordered By: Carlos Guzmán on 11-24-2023 RBC Auto (Urine sed) [#/Area] None seen [HPF] 0-4 [facility] Automated leukocytes count i n urine sediment (number/area)Ordered By: Carlos Guzmán on 11-24-2023 WBC Auto (Urine sed) [#/Area] 0-1 [HPF] 0-4 [facility] Basophils Auto (Bld) [#/Vol] Ordered By: Carlos Guzmán on 11-24-2023 Basophils (Bld) [#/Vol] 0.1 10*3/uL 0.0-0.2 [facility] Basophils/100 WBC Auto (Bld) Ordered By: Carlos Guzmán on 11-24-2023 Basophils/100 WBC (Bld) 1.1 % . [facility] Bilirubin Test strip Ql (U)O rdered By: Carlos Guzmán on 11-24-2023 Bilirubin Ql (U) Negative Negative [facility] Bilirubin.total [Mass/volume ] in Serum or PlasmaOrdered By: Carlos Guzmán on 11-24-2023 Bilirubin [Mass/Vol] 0.6 mg/dL 0.3-1.0 [facility] C reactive protein [Mass/vol ume] in Serum or PlasmaOrdered By: Carlos Guzmán on 11-24-2023 CRP [Mass/Vol] 0.6 mg/dL 0.0-0.5 [facility] C-Reactive Proteinon 024 C-Reactive Protein 0.6 mg/dL High 0.0-0.5 [facility] Comment on above: Result Comment: PERF ORMED BY: [facility] [address] [place] [address] PATHOLOGIST QUALITY CONTROL TECH ADELFO RAMIREZ M.D. Performed By: #### I FE,URINE, SVETLANA SERUM, UPE RAND, SPE #### [facility] , #### ESR, ADDONUAPLUS, CRP, CBC, CMP #### [facility] [address] Calcium [Mass/volume] in Ser um or PlasmaOrdered By: Carlos Guzmán on 11-24-2023 Calcium [Mass/Vol] 9.4 mg/dL 8.6-10.3 [facility] Carbon dioxide, total [Moles /volume] in Serum or PlasmaOrdered By: Carlos Guzámn on 11-24-2023 CO2 [Moles/Vol] 28.5 mmol/L 21.0-31.0 [facility] Chloride [Moles/volume] in S lucila or PlasmaOrdered By: Carlos Guzmán on 11-24-2023 Chloride [Moles/Vol] 99 mmol/L 98-107 [facility] Color Auto (U)Ordered By: Elvia Guzmán on 11-24-2023 Color (U) Yellow Yellow [facility] Complement C3on 11-24-2023 Complement C3 135 mg/dL Normal 82-167 [facility] Comment on above: Result Comment: Perf ormed at: - [facility] [address] [id number] Diamond Saw Operator: Krunal Nichols PhD, Phone: [phone] Performed By: #### K APPA, ANCA PROF, C4, CH50, HBSAB, HBCAB, C3, HCV RX PCR, HBSAG, VANESSA ####[facility] , Complement C4on 11-24-2023 Complement C4 10 mg/dL Low 12-38 [facility] Comment on above: Performed By: #### K APPA, ANCA PROF, C4, CH50, HBSAB, HBCAB, C3, HCV RX PCR, HBSAG, VANESSA ####[facility] , Complement Total (CH50)on Complement Total (CH50) 51 Normal >41 [facility] Comment on above: Result Comment: Age Male Female 1 - 30 days Not Estab. Not Estab. 31 days - 6 months >32 >20 7 months - 17 years >39 >39 >17 years >41 >41 NOTE: The adult ( >17 years ) reference interval range is used to flag abnormals on this report. If the patient is 17 years old or younger, use the table above to determine out of range values. Performed at: - [facility] [address] [id number] Diamond Saw Operator: Krunal Nichols PhD, Phone: [phone] PERFORMED BY: [place] [address] PATHOLOGIST QUALITY CONTROL TECH ADELFO RAMIREZ M.D. Performed By: #### K APPA, ANCA PROF, C4, CH50, HBSAB, HBCAB, C3, HCV RX PCR, HBSAG, VANESSA ####[facility] , Complete Blood Count Auto Di ffon 11-24-2023 Basophils (Bld) [#/Vol] 0.1 10*3/uL Normal 0.0-0.2 [facility] Comment on above: Performed By: #### I FE,URINE, SVETLANA SERUM, UPE RAND, SPE #### [facility] , #### ESR, ADDONUAPLUS, CRP, CBC, CMP #### [facility] [address] [place] [address] Basophils/100 WBC (Bld) 1.1 % Normal . [facility] Comment on above: Performed By: #### I FE,URINE, SVETLANA SERUM, UPE RAND, SPE #### [facility] , #### ESR, ADDONUAPLUS, CRP, CBC, CMP #### [facility] [address] [place] [address] Eosinophils (Bld) [#/Vol] 0.2 10*3/uL Normal 0.0-0.45 [facility] Comment on above: Performed By: #### I FE,URINE, SVETLANA SERUM, UPE RAND, SPE #### [facility] , #### ESR, ADDONUAPLUS, CRP, CBC, CMP #### [address] Eosinophils/100 WBC (Bld) 2.0 % Normal . [facility] Comment on above: Performed By: #### I FE,URINE, SVETLANA SERUM, UPE RAND, SPE #### [facility] , #### ESR, ADDONUAPLUS, CRP, CBC, CMP #### [address] Erythrocyte distribution width (RBC) [Ratio] 15.0 % High 12.0-14.8 [facility] [facility] Comment on above: Performed By: #### I FE,URINE, SVETLANA SERUM, UPE RAND, SPE #### [facility] , #### ESR, ADDONUAPLUS, CRP, CBC, CMP #### [address] Hematocrit (Bld) [Volume fraction] 38.8 % Normal 38.8-50.0 [facility] Comment on above: Performed By: #### I FE,URINE, SVETLANA SERUM, UPE RAND, SPE #### [facility] , #### ESR, ADDONUAPLUS, CRP, CBC, CMP #### [address] Hemoglobin (Bld) [Mass/Vol] 13.3 g/dL Normal 13.0-17. 0 [facility] Comment on above: Performed By: #### I FE,URINE, SVETLANA SERUM, UPE RAND, SPE #### [facility] , #### ESR, ADDONUAPLUS, CRP, CBC, CMP #### [address] Lymphocytes (Bld) [#/Vol] 2.5 10*3/uL Normal 1.00-4.8 [facility] Comment on above: Performed By: #### I FE,URINE, SVETLANA SERUM, UPE RAND, SPE #### [facility] , #### ESR, ADDONUAPLUS, CRP, CBC, CMP #### [address] Lymphocytes/100 WBC (Bld) 28.6 % Normal . [facility] Comment on above: Performed By: #### I FE,URINE, SVETLANA SERUM, UPE RAND, SPE #### [facility] , #### ESR, ADDONUAPLUS, CRP, CBC, CMP #### [address] MCH (RBC) [Entitic mass] 30.0 pg Normal 27.5-35.2 [facility] Comment on above: Performed By: #### I FE,URINE, SVETLANA SERUM, UPE RAND, SPE #### [facility] , #### ESR, ADDONUAPLUS, CRP, CBC, CMP #### [address] MCV (RBC) [Entitic vol] 87.1 fL Normal 83.5-101 [facility] Comment on above: Performed By: #### I FE,URINE, SVETLANA SERUM, UPE RAND, SPE #### [facility] , #### ESR, ADDONUAPLUS, CRP, CBC, CMP #### [address] Mean Corpuscular HGB Conc 34.4 g/dL Normal 32.5-35.6 [facility] Comment on above: Performed By: #### I FE,URINE, SVETLANA SERUM, UPE RAND, SPE #### [facility] , #### ESR, ADDONUAPLUS, CRP, CBC, CMP #### [address] Monocytes (Bld) [#/Vol] 0.7 10*3/uL Normal 0.0-0.8 [facility] Comment on above: Performed By: #### I FE,URINE, SVETLANA SERUM, UPE RAND, SPE #### [facility] , #### ESR, ADDONUAPLUS, CRP, CBC, CMP #### [address] Monocytes/100 WBC (Bld) 7.8 % Normal . [facility] Comment on above: Performed By: #### I FE,URINE, SVETLANA SERUM, UPE RAND, SPE #### [facility] , #### ESR, ADDONUAPLUS, CRP, CBC, CMP #### [address] Neutrophils (Bld) [#/Vol] 5.4 10*3/uL Normal 1.8-7.7 [facility] Comment on above: Performed By: #### I FE,URINE, SVETLANA SERUM, UPE RAND, SPE #### [facility] , #### ESR, ADDONUAPLUS, CRP, CBC, CMP #### [address] Neutrophils/100 WBC (Bld) 60.5 % Normal . [facility] Comment on above: Performed By: #### I FE,URINE, SVETLANA SERUM, UPE RAND, SPE #### [facility] , #### ESR, ADDONUAPLUS, CRP, CBC, CMP #### [place] [address] [place] NRBC% 0.0 /100{WBC} Normal 0-0.5 [facility] Comment on above: Performed By: #### I FE,URINE, SVETLANA SERUM, UPE RAND, SPE #### [facility] , #### ESR, ADDONUAPLUS, CRP, CBC, CMP #### [address] Platelet mean volume (Bld) [Entitic vol] 7.9 fL Normal 6.6-10.1 [facility] Comment on above: Performed By: #### I FE,URINE, SVETLANA SERUM, UPE RAND, SPE #### [facility] , #### ESR, ADDONUAPLUS, CRP, CBC, CMP #### [address] Platelets (Bld) [#/Vol] 369 10*3/uL Normal 150-450 [facility] Comment on above: Performed By: #### I FE,URINE, SVETLANA SERUM, UPE RAND, SPE #### [facility] , #### ESR, ADDONUAPLUS, CRP, CBC, CMP #### [address] RBC (Bld) [#/Vol] 4.45 10*6/uL Normal 3.90-5.60 [facility] Comment on above: Performed By: #### I FE,URINE, SVETLANA SERUM, UPE RAND, SPE #### [facility] , #### ESR, ADDONUAPLUS, CRP, CBC, CMP #### [address] WBC (Bld) [#/Vol] 8.9 10*3/uL Normal 4.1-10.5 [facility] Comment on above: Performed By: #### I FE,URINE, SVETLANA SERUM, UPE RAND, SPE #### [facility] , #### ESR, ADDONUAPLUS, CRP, CBC, CMP #### [facility] [address] [place] [address] Comprehensive Metabolic Pane eduard 11-24-2023 Albumin [Mass/Vol] 3.8 g/dL Normal 3.5-5.7 [facility] Comment on above: Performed By: #### I FE,URINE, SVETLANA SERUM, UPE RAND, SPE #### [facility] , #### ESR, ADDONUAPLUS, CRP, CBC, CMP #### [address] Albumin/Globulin [Mass ratio] 0.9 {ratio} Normal [facility] Comment on above: Performed By: #### I FE,URINE, SVETLANA SERUM, UPE RAND, SPE #### [facility] , #### ESR, ADDONUAPLUS, CRP, CBC, CMP #### [address] ALP [Catalytic activity/Vol] 98 U/L Normal 34-104 [facility] Comment on above: Performed By: #### I FE,URINE, SVETLANA SERUM, UPE RAND, SPE #### [facility] , #### ESR, ADDONUAPLUS, CRP, CBC, CMP #### [address] ALT [Catalytic activity/Vol] 11 U/L Normal 7-52 [facility] Comment on above: Performed By: #### I FE,URINE, SVETLANA SERUM, UPE RAND, SPE #### [facility] , #### ESR, ADDONUAPLUS, CRP, CBC, CMP #### [address] Anion gap [Moles/Vol] 14.8 mmol/L Normal 6.0-15.[address] [facility] Comment on above: Performed By: #### I FE,URINE, SVETLANA SERUM, UPE RAND, SPE #### [facility] , #### ESR, ADDONUAPLUS, CRP, CBC, CMP #### [address] AST [Catalytic activity/Vol] 15 U/L Normal 13-39 [facility] Comment on above: Performed By: #### I FE,URINE, SVETLANA SERUM, UPE RAND, SPE #### [facility] , #### ESR, ADDONUAPLUS, CRP, CBC, CMP #### [place] [address] Bilirubin [Mass/Vol] 0.6 mg/dL Normal 0.3-1.0 [facility] Comment on above: Performed By: #### I FE,URINE, SVETLANA SERUM, UPE RAND, SPE #### [facility] , #### ESR, ADDONUAPLUS, CRP, CBC, CMP #### [address] Calcium [Mass/Vol] 9.4 mg/dL Normal 8.6-10.3 [facility] Comment on above: Performed By: #### I FE,URINE, SVETLANA SERUM, UPE RAND, SPE #### [facility] , #### ESR, ADDONUAPLUS, CRP, CBC, CMP #### [address] Chloride [Moles/Vol] 99 mmol/L Normal 98-107 [facility] Comment on above: Performed By: #### I FE,URINE, SVETLANA SERUM, UPE RAND, SPE #### [facility] , #### ESR, ADDONUAPLUS, CRP, CBC, CMP #### [address] CO2 [Moles/Vol] 28.5 mmol/L Normal 21.0-31.0 [facility] Comment on above: Performed By: #### I FE,URINE, SVETLANA SERUM, UPE RAND, SPE #### [facility] , #### ESR, ADDONUAPLUS, CRP, CBC, CMP #### [address] Creatinine [Mass/Vol] 0.73 mg/dL Normal 0.70-1.30 [facility] Comment on above: Performed By: #### I FE,URINE, SVETLANA SERUM, UPE RAND, SPE #### [facility] , #### ESR, ADDONUAPLUS, CRP, CBC, CMP #### [address] GFR/1.73 sq M.predicted MDRD (S/P/Bld) [Vol rate/Area] mL/min/{1.73_m2} Normal [facility] Comment on above: Performed By: #### I FE,URINE, SVETLANA SERUM, UPE RAND, SPE #### [facility] , #### ESR, ADDONUAPLUS, CRP, CBC, CMP #### [address] Globulin (S) [Mass/Vol] 4.4 g/dL High 2.2-3.9 [facility] Comment on above: Performed By: #### I FE,URINE, SVETLANA SERUM, UPE RAND, SPE #### [facility] , #### ESR, ADDONUAPLUS, CRP, CBC, CMP #### [address] Glucose [Mass/Vol] 105 mg/dL High 70-100 [facility] Comment on above: Result Comment: [facility] [place] Glucose Reference Range is dependent on time and content of last meal. Glucose of more than 200 mg/dL in a nonstressed, ambulatory subject supports the diagnosis of Diabetes Mellitus. ADA recommended reference range Performed By: #### I FE,URINE, SVETLANA SERUM, UPE RAND, SPE #### [facility] , #### ESR, ADDONUAPLUS, CRP, CBC, CMP #### [address] Potassium [Moles/Vol] 4.3 mmol/L Normal 3.5-5.1 [facility] Comment on above: Performed By: #### I FE,URINE, SVETLANA SERUM, UPE RAND, SPE #### [facility] , #### ESR, ADDONUAPLUS, CRP, CBC, CMP #### [address] Protein [Mass/Vol] 8.2 g/dL Normal 6.4-8.9 [facility] Comment on above: Performed By: #### I FE,URINE, SVETLANA SERUM, UPE RAND, SPE #### [facility] , #### ESR, ADDONUAPLUS, CRP, CBC, CMP #### [facility] [address] Sodium [Moles/Vol] 138 mmol/L Normal 136-145 [facility] Comment on above: Performed By: #### I FE,URINE, SVETLANA SERUM, UPE RAND, SPE #### [facility] , #### ESR, ADDONUAPLUS, CRP, CBC, CMP #### [facility] [address] [place] [address] Urea nitrogen [Mass/Vol] 15 mg/dL Normal 7-25 [facility] Comment on above: Performed By: #### I FE,URINE, SVETLANA SERUM, UPE RAND, SPE #### [facility] , #### ESR, ADDONUAPLUS, CRP, CBC, CMP #### [facility] [address] [place] [address] Creatinine [Mass/volume] in Serum or PlasmaOrdered By: Carlos Guzmán on 11-24-2023 Creatinine [Mass/Vol] 0.73 mg/dL 0.70-1.30 [facility] Dipstick and Microscopicon 0 11-24-2023 Appearance (U) Clear Normal Clear [facility] Comment on above: Order Comment: Name Collection Type:: Clean-Voided Midstream Performed By: #### I FE,URINE, SVETLANA SERUM, UPE RAND, SPE #### [facility] , #### ESR, ADDONUAPLUS, CRP, CBC, CMP #### [facility] [address] [place] [address] [place] Bacteria,Urine None Seen Normal None Seen [facility] Comment on above: Order Comment: Name Collection Type:: Clean-Voided Midstream Performed By: #### I FE,URINE, SVETLANA SERUM, UPE RAND, SPE #### [facility] , #### ESR, ADDONUAPLUS, CRP, CBC, CMP #### [address] Bilirubin,Urine Negative Normal Negative [facility] Comment on above: Order Comment: Name Collection Type:: Clean-Voided Midstream Performed By: #### I FE,URINE, SVETLANA SERUM, UPE RAND, SPE #### [facility] , #### ESR, ADDONUAPLUS, CRP, CBC, CMP #### [address] Color (U) Yellow Normal Yellow [facility] Comment on above: Order Comment: Name Collection Type:: Clean-Voided Midstream Performed By: #### I FE,URINE, SVETLANA SERUM, UPE RAND, SPE #### [facility] , #### ESR, ADDONUAPLUS, CRP, CBC, CMP #### [address] Glucose Ql (U) >=1000 High Normal [facility] Comment on above: Order Comment: Name Collection Type:: Clean-Voided Midstream Performed By: #### I FE,URINE, SVETLANA SERUM, UPE RAND, SPE #### [facility] , #### ESR, ADDONUAPLUS, CRP, CBC, CMP #### [address] Hyaline Casts,Urine 0-8 Normal 0-8 [facility] Comment on above: Order Comment: Name Collection Type:: Clean-Voided Midstream Result Comment: PERF ORMED BY: [place] [address] PATHOLOGIST QUALITY CONTROL TECH ADELFO RAMIREZ M.D. Performed By: #### I FE,URINE, SVETLANA SERUM, UPE RAND, SPE #### [facility] , #### ESR, ADDONUAPLUS, CRP, CBC, CMP #### [address] Ketones Ql (U) Trace High Negative [facility] Comment on above: Order Comment: Name Collection Type:: Clean-Voided Midstream Performed By: #### I FE,URINE, SVETLANA SERUM, UPE RAND, SPE #### [facility] , #### ESR, ADDONUAPLUS, CRP, CBC, CMP #### [address] Leukocyte esterase Test strip Ql (U) Negative Normal Negative [facility] Comment on above: Order Comment: Name Collection Type:: Clean-Voided Midstream Performed By: #### I FE,URINE, SVETLANA SERUM, UPE RAND, SPE #### [facility] , #### ESR, ADDONUAPLUS, CRP, CBC, CMP #### [address] Nitrite,Urine Negative Normal Negative [facility] Comment on above: Order Comment: Name Collection Type:: Clean-Voided Midstream Performed By: #### I FE,URINE, SVETLANA SERUM, UPE RAND, SPE #### [facility] , #### ESR, ADDONUAPLUS, CRP, CBC, CMP #### [facility] [address] [place] [address] Occult Blood,Urine Negative Normal Negative [facility] Comment on above: Order Comment: Name Collection Type:: Clean-Voided Midstream Performed By: #### I FE,URINE, SVETLANA SERUM, UPE RAND, SPE #### [facility] , #### ESR, ADDONUAPLUS, CRP, CBC, CMP #### [facility] [address] [place] [address] [place] pH (U) 5.0 [pH] Normal 5.0-9.0 [facility] Comment on above: Order Comment: Name Collection Type:: Clean-Voided Midstream Performed By: #### I FE,URINE, SVETLANA SERUM, UPE RAND, SPE #### [facility] , #### ESR, ADDONUAPLUS, CRP, CBC, CMP #### [address] Protein (U) [Mass/Vol] 30 mg/dL High Negative [facility] Comment on above: Order Comment: Name Collection Type:: Clean-Voided Midstream Performed By: #### I FE,URINE, SVETLANA SERUM, UPE RAND, SPE #### [facility] , #### ESR, ADDONUAPLUS, CRP, CBC, CMP #### [address] RBC,Urine None Seen Normal 0-4 [facility] Comment on above: Order Comment: Name Collection Type:: Clean-Voided Midstream Performed By: #### I FE,URINE, SVETLANA SERUM, UPE RAND, SPE #### [facility] , #### ESR, ADDONUAPLUS, CRP, CBC, CMP #### [address] Specificy Chinle,Urine 1.039 High 1.001-1.030 [facility] Comment on above: Order Comment: Name Collection Type:: Clean-Voided Midstream Performed By: #### I FE,URINE, SVETLANA SERUM, UPE RAND, SPE #### [facility] , #### ESR, ADDONUAPLUS, CRP, CBC, CMP #### [address] Squamous Epithelial Cell,Urine None Seen Normal 0-2 [facility] Comment on above: Order Comment: Name Collection Type:: Clean-Voided Midstream Performed By: #### I FE,URINE, SVETLANA SERUM, UPE RAND, SPE #### [facility] , #### ESR, ADDONUAPLUS, CRP, CBC, CMP #### [facility] [address] [place] [address] Urobilinogen,Urine Normal Normal Normal [facility] Comment on above: Order Comment: Name Collection Type:: Clean-Voided Midstream Performed By: #### I FE,URINE, SVETLANA SERUM, UPE RAND, SPE #### [facility] , #### ESR, ADDONUAPLUS, CRP, CBC, CMP #### [facility] [address] [place] [address] WBC LM.HPF (Urine sed) [#/Area] 0 /[HPF] Normal 0-4 [facility] Comment on above: Order Comment: Name Collection Type:: Clean-Voided Midstream Performed By: #### I FE,URINE, SVETLANA SERUM, UPE RAND, SPE #### [facility] , #### ESR, ADDONUAPLUS, CRP, CBC, CMP #### [address] Eosinophils Auto (Bld) [#/Vo l]Ordered By: Carlos Guzmán on 11-24-2023 Eosinophils (Bld) [#/Vol] 0.2 10*3/uL 0.0-0.45 [facility] Eosinophils/100 WBC Auto (Bl d)Ordered By: Carlos Guzmán on 11-24-2023 Eosinophils/100 WBC (Bld) 2.0 % . [facility] Erythrocyte Sedimentation Ra bibiana 11-24-2023 ESR (Bld) [Velocity] 72 mm/h High 0-19 [facility] Comment on above: Result Comment: PERF ORMED BY: [place] [address] PATHOLOGIST QUALITY CONTROL TECH ADELFO RAMIREZ M.D. Performed By: #### I FE,URINE, SVETLANA SERUM, UPE RAND, SPE #### [facility] , #### ESR, ADDONUAPLUS, CRP, CBC, CMP #### [facility] [address] [place] [address] Erythrocyte distribution wid th Auto (RBC) [Ratio]Ordered By: Carlos Guzmán on 11-24-2023 Erythrocyte distribution width (RBC) [Ratio] 15.0 % 12.0-14.8 [facility] Erythrocyte sedimentation ra te by Photometric methodOrdered By: Carlos Guzmán on 11-24-2023 ESR Photometric method (Bld) [Velocity] 72 mm/hr 0-19 [facility] Free K+L LT Chains, Qn, Son 11-24-2023 Free Pence Light Chains, S 127.8 mg/L High 3.3-19.4 [facility] Comment on above: Performed By: #### K APPA, ANCA PROF, C4, CH50, HBSAB, HBCAB, C3, HCV RX PCR, HBSAG, VANESSA ####[facility] , Free Lambda Light Chains, S 171.2 mg/L High 5.7-26.3 [facility] Comment on above: Performed By: #### K APPA, ANCA PROF, C4, CH50, HBSAB, HBCAB, C3, HCV RX PCR, HBSAG, VANESSA ####[facility] , Pence/Lambda Ratio, S 0.75 Normal 0.26-1.65 [facility] Comment on above: Result Comment: Perf ormed at: - [facility] [place] [id number] Diamond Saw Operator: Krunal Nichols PhD, Phone: [phone] Performed By: #### K APPA, ANCA PROF, C4, CH50, HBSAB, HBCAB, C3, HCV RX PCR, HBSAG, VANESSA ####[facility] , Gamma globulin/Protein.total in 24 hour Urine by ElectrophoresisOrdered By: Carlos Guzmán on 11-24-2023 Gamma globulin Elph (24H U) [Mass fraction] 20.1 % . [facility] Glucose [Mass/volume] in Ser um or PlasmaOrdered By: Carlos Guzmán on 11-24-2023 Glucose [Mass/Vol] 105 mg/dL 70-100 [facility] Comment on above: ADA recommended refe rence rangeRandom Glucose Reference Range is dependent on time and content of last meal. Glucose of more than 200 mg/dL in a nonstressed, ambulatory subject supports the diagnosis of Diabetes Mellitus. Hematocrit Auto (Bld) [Volum e fraction]Ordered By: Carlos Guzmán on 11-24-2023 Hematocrit (Bld) [Volume fraction] 38.8 % 38.8-50.0 [facility] Hemoglobin [Mass/volume] in BloodOrdered By: Carlos Grayfranky on 11-24-2023 Hemoglobin (Bld) [Mass/Vol] 13.3 g/dL 13.0-17. 0 [facility] Hep C Ab wRfx to Qnt PCRon 0 11-24-2023 Hepatitis C Virus Antibody Non-Reactive Normal N on Reactive [facility] Comment on above: Performed By: #### K APPA, ANCA PROF, C4, CH50, HBSAB, HBCAB, C3, HCV RX PCR, HBSAG, VANESSA ####[facility] , Interpretation Hepatitis C Normal . [facility] Comment on above: Result Comment: Not infected with HCV unless early or acute infection is suspected (which may be delayed in an immunocompromised individual), or other evidence exists to indicate HCV infection. Performed By: #### K APPA, ANCA PROF, C4, CH50, HBSAB, HBCAB, C3, HCV RX PCR, HBSAG, VANESSA ####[facility] , Hepatitis B Core Antibodyon 11-24-2023 Hepatitis B Core Antibody Negative Normal Negative [facility] Comment on above: Result Comment: Perf ormed at: [facility] [address] [id number] Diamond Saw Operator: Krunal Nichols PhD, Phone: [phone] Performed By: #### K APPA, ANCA PROF, C4, CH50, HBSAB, HBCAB, C3, HCV RX PCR, HBSAG, VANESSA ####[facility] , Hepatitis B Surface Antibody on 11-24-2023 Hepatitis B Surface Antibody Non-Reactive Normal . [facility] Comment on above: Result Comment: Non Reactive: Inconsistent with immunity, less than 10 mIU/mL Reactive: Consistent with immunity, greater than 9.9 mIU/mL Performed By: #### K APPA, ANCA PROF, C4, CH50, HBSAB, HBCAB, C3, HCV RX PCR, HBSAG, VANESSA ####[facility] , Hepatitis B Surface Antigeno n 11-24-2023 HBsAg Screen Negative Normal Negative [facility] Comment on above: Result Comment: PERF ORMED BY: [facility] [address] [place] [address] PATHOLOGIST QUALITY CONTROL TECH ADELFO RAMIREZ M.D. Performed By: #### K APPA, ANCA PROF, C4, CH50, HBSAB, HBCAB, C3, HCV RX PCR, HBSAG, VANESSA ####[facility] , Hepatitis B virus surface Ab [Presence] in SerumOrdered By: Carlos Guzmán on 11-24-2023 HBV surface Ab Ql (S) Non-Reactive . [facility] Comment on above: Non Reactive: Incons istent with immunity, less than 10 mIU/mL Reactive: Consistent with immunity, greater than 9.9 mIU/mL Hepatitis B virus surface Ag [Presence] in Serum or Plasma by ImmunoassayOrdered By: Carlos Guzmán on 11-24-2023 HBV surface Ag IA Ql Negative Negative [facility] Hepatitis C virus IgG Ab [Pr esence] in Serum or Plasma by ImmunoassayOrdered By: Carlos Guzmán on 11-24-2023 HCV IgG IA Ql Non-Reactive Non Reactive [facility] IgA [Mass/volume] in Serum o r PlasmaOrdered By: Carlos Guzmán on 11-24-2023 IgA [Mass/Vol] 399 mg/dL 61-437 [facility] IgG [Mass/volume] in Serum o r PlasmaOrdered By: Carlos Guzmán on 11-24-2023 IgG [Mass/Vol] 2589 mg/dL [phone] [facility] IgM [Mass/volume] in Serum o r PlasmaOrdered By: Carlos Guzmán on 11-24-2023 IgM [Mass/Vol] 217 mg/dL 15-143 [facility] Comment on above: Performed at: [address] [id number] Director: Krunal Nichols PhD, Phone: [phone] Immunofixation for UrineOrde red By: Carlos Guzmán on 11-24-2023 Interpretation Immunofixation (U) [Interp] Comment: . [facility] Comment on above: Presence of monoclon al protein is unclear at this time. Suggestrepeat in 3 to 6 months if clinically indicated.Performed at: - [id number] [place], [place] [id number] Director: Krunal Nichols PhD, Phone: [phone] Immunofixation, (SVETLANA), Urine on 11-24-2023 Immunofixation, (SVETLANA), Urine Comment: Normal . [facility] Comment on above: Result Comment: Pres ence of monoclonal protein is unclear at this time. Suggest repeat in 3 to 6 months if clinically indicated. Performed at: [facility] [address] [place], [place] [id number] Diamond Saw Operator: Krunal Nichols PhD, Phone: [phone] Performed By: #### I FE,URINE, SVETLANA SERUM, UPE RAND, SPE ####[facility] ,#### ESR, ADDONUAPLUS, CRP, CBC, CMP ####[facility] [place] [address] [place] Immunofixation,Serumon 11-23 Immunofixation, Serum Normal . [facility] Comment on above: Result Comment: No m onoclonality detected. Performed By: #### I FE,URINE, SVETLANA SERUM, UPE RAND, SPE #### [facility] , #### ESR, ADDONUAPLUS, CRP, CBC, CMP #### [facility] [address] [place] [id number] [facility] Immunoglobulin A, Serum 399 mg/dL Normal 61-437 [facility] Comment on above: Performed By: #### I FE,URINE, SVETLANA SERUM, UPE RAND, SPE #### [facility] , #### ESR, ADDONUAPLUS, CRP, CBC, CMP #### [facility] [address] [place] [id number] [place] Immunoglobulin G 2589 mg/dL High 603-1613 [facility] Comment on above: Performed By: #### I FE,URINE, SVETLANA SERUM, UPE RAND, SPE #### [facility] , #### ESR, ADDONUAPLUS, CRP, CBC, CMP #### [facility] [address] Immunoglobulin M, Serum 217 mg/dL High 15-143 [facility] Comment on above: Result Comment: Perf ormed at: - [facility] [address] [place] [address] Diamond Saw Operator: Krunal Nichols PhD, Phone: [phone] Performed By: #### I FE,URINE, SVETLANA SERUM, UPE RAND, SPE #### [facility] , #### ESR, ADDONUAPLUS, CRP, CBC, CMP #### [facility] [address] Immunoglobulin light chains. kappa.free [Mass/volume] in SerumOrdered By: Carlos Guzmán on 11-24-2023 Immunoglobulin light chains.kappa.free (S) [Mass/Vol] 127.8 mg/L 3.3-19.4 [facility] Immunoglobulin light chains. kappa.free/Immunoglobulin light chains.lambda.free [MassOrdered By: Carlos Guzmán on 11-24-2023 Immunoglobulin light chains.kappa.free/Immunoglo bulin light chains.lambda.free (S) [Mass ratio] 0.75 0.26-1.65 [facility] Comment on above: Performed at: - [facility] [place] [id number] Director: Krunla Nichols PhD, Phone: [phone] Immunoglobulin light chains. lambda.free [Mass/volume] in Serum or PlasmaOrdered By: Carlos Guzmán on 11-24-2023 Immunoglobulin light chains.lambda.free [Mass/Vol] 171.2 mg/L 5.7-26.3 [facility] Ketones Auto test strip (U) [Mass/Vol]Ordered By: Carlos Guzmán on 11-24-2023 Ketones (U) [Mass/Vol] Trace Negative [facility] Laboratory - UrinalysisOrder ed By: Carlos Guzmán on 11-24-2023 Hyaline casts LM Ql (Urine sed) 0-8 [LPF] 0-8 [facility] Leukocytes [#/volume] correc yuniel for nucleated erythrocytes in Blood by Automated counOrdered By: Carlos Guzmán on 11-24-2023 WBC corrected for nucl RBC Auto (Bld) [#/Vol] 8.9 10*3/uL 4.1-10.5 [facility] Lymphocytes Auto (Bld) [#/Vo l]Ordered By: Carlos Guzmán on 11-24-2023 Lymphocytes (Bld) [#/Vol] 2.5 10*3/uL 1.00-4.8 [facility] Lymphocytes/100 WBC Auto (Bl d)Ordered By: Carlos Guzmán on 11-24-2023 Lymphocytes/100 WBC (Bld) 28.6 % . [facility] MCH Auto (RBC) [Entitic mass ]Ordered By: Carlso Guzmán on 11-24-2023 MCH (RBC) [Entitic mass] 30.0 pg 27.5-35.2 [facility] MCHC Auto (RBC) [Mass/Vol]Or dered By: Carlos Guzmán on 11-24-2023 MCHC (RBC) [Mass/Vol] 34.4 g/dL 32.5-35.6 [facility] MCV Auto (RBC) [Entitic vol] Ordered By: Carlos Guzmán on 11-24-2023 MCV (RBC) [Entitic vol] 87.1 fL 83.5-101 [facility] Monocytes Auto (Bld) [#/Vol] Ordered By: Carlos Guzmán on 11-24-2023 Monocytes (Bld) [#/Vol] 0.7 10*3/uL 0.0-0.8 [facility] Monocytes/100 WBC Auto (Bld) Ordered By: Carlos Guzmán on 11-24-2023 Monocytes/100 WBC (Bld) 7.8 % . [facility] Myeloperoxidase Ab [Units/vo lume] in Serum by ImmunoassayOrdered By: Carlos Guzmán on 11-24-2023 Myeloperoxidase Ab IA Qn (S) 1.8 units 0.0-0.9 [facility] Neutrophil cytoplasmic Ab.pe rinuclear.atypical [Titer] in Serum by ImmunofluorescenceOrdered By: Carlos Guzmán on 11-24-2023 Neutrophil cytoplasmic Ab.perinuclear.atypical IF (S) [Titer] <1:20 titer Neg:<1:20 [facility] Comment on above: The atypical pANCA p attern has been observed in asignificant percentage of patients with ulcerative colitis,primary sclerosing cholangitis and autoimmune hepatitis.Performed at: [facility] [id number] Director: Blanca Olmedo MD, Phone: [phone] at: [facility] [address] [id number] Director: Krunal Nichols PhD, Phone: [phone] Neutrophils Auto (Bld) [#/Vo l]Ordered By: Carlos Guzmán on 11-24-2023 Neutrophils (Bld) [#/Vol] 5.4 10*3/uL 1.8-7.7 [facility] Neutrophils/100 WBC Auto (Bl d)Ordered By: Carlos Guzmán on 11-24-2023 Neutrophils/100 WBC (Bld) 60.5 % . [facility] Nitrite Test strip Ql (U)Ord ered By: Carlos Guzmán on 11-24-2023 Nitrite Ql (U) Negative Negative [facility] No Panel InformationOrdered By: Carlos Guzmán on 11-24-2023 Anti-Nuclear Antibody Comment 2 See comment . [facility] Comment on above: Pattern Potential Di sease Association Homogeneous Systemic Lupus Erythematosus, Drug Induced Systemic Lupus Erythematosus, Chronic Autoimmune hepatitis, Juvenile Idiopathic Arthritis Speckled Sjogren Syndrome, Systemic Lupus Erythematosus, Subacute Cutaneous Lupus, Lupus, Congenital Heart Block, Mixed Connective Tissue Disease, Scleroderma-diffuse, Scleroderma-Autoimmune Myositis Overlap Syndrome, Systemic Lupus Ucjumbaelxczf-Uqsnqzyvufb-Unflhigbig Myositis Overlap Syndrome, Systemic Autoimmune Rheumatic Disease, Undifferentiated Connective Tissue Disease Nucleolar Systemic Sclerosis, Scleroderma-Autoimmune Myositis Overlap Syndrome, Sjogren Syndrome, Raynaud phenomenon, Pulmonary Arterial Hypertension, Systemic Autoimmune Rheumatic Disease, Cancer Centromere Scleroderma-CREST, Limited Cutaneous SSc, Raynaud's Phenomenon, Primary Biliary Cholangitis Nuclear Dot Primary Biliary Cholangitis Nuclear Primary Biliary Cholangitis, AutoimmuneMembrane Hepatitis/Liver disease, Systemic Autoimmune Rheumatic Disease, Autoimmune Cytopenias, Linear Scleroderma, Antiphospholipid Syndrome Performed at: [facility] [address] [id number] Director: Krunal Nichols PhD, Phone: [phone] Estimated GFR (CKD-EPI) > 60.0 mL/Min [facility] Hepatitis B Core Total Antibody Negative Negative [facility] Comment on above: Performed at: [facility] [address] [id number] Director: Krunal Nichols PhD, Phone: [phone] Hepatitis C Interpretation See comment . [facility] Comment on above: Not infected with HC V unless early or acute infection issuspected (which may be delayed in an immunocompromisedindividual), or other evidence exists to indicate HCVinfection. Perinuclear ANCA (p-ANCA) Antibody <1:20 titer Neg:<1:20 [facility] Comment on above: The presence of posi tive fluorescence exhibiting P-ANCA orC-ANCA patterns alone is not specific for the diagnosis ofWegener's Granulomatosis (WG) or microscopic polyangiitis.Decisions about treatment should not be based solely onANCA IFA results. The International ANCA Group Consensusrecommends follow up testing of positive sera with both MT-3 and MPO-ANCA enzyme immunoassays. As many as 5% serumsamples are positive only by EIA. Ref. AM J Clin Skebks5610;111:507-513. Pharmacy Creatinine Clearance (Chem N/A [facility] Protein Electrophoresis M-Michael Not observed g/dL Not Observed [facility] Protein Electrophoresis Note See comment . [facility] Comment on above: Protein electrophore sis scan will follow via computer,mail, or blood donor unit assistant delivery.Performed at: [facility] [place], [place] [id number] Director: Krunal Nichols PhD, Phone: [phone] Serum Immunofixation See comment . [facility] Comment on above: No monoclonality det ected. Total Complement (CH50) 51 U/mL >41 [facility] Comment on above: Age Male Female 1 - 30 days Not Estab. Not Estab. 31 days - 6 months >32 >20 7 months - 17 years >39 >39 >17 years >41 >41 NOTE: The adult ( >17 years ) reference interval range is used to flag abnormals on this report. If the patient is 17 years old or younger, use the table above to determine out of range values.Performed at: [facility] [place], [place] [id number] Director: Krunal Nichols PhD, Phone: [phone] Urine Random Prot Electrophor Note See comment . [facility] Comment on above: Protein electrophore sis scan will follow via computer,mail, or blood donor unit assistant delivery. Nucleated erythrocytes [Pres ence] in Blood by Automated countOrdered By: Carlos Guzmná on 11-24-2023 Nucleated RBC Auto Ql (Bld) 0.0 /100{WBC} 0-0.5 [facility] Platelet mean volume Auto (B ld) [Entitic vol]Ordered By: Carlos Guzmán on 11-24-2023 Platelet mean volume (Bld) [Entitic vol] 7.9 fL 6.6-10.1 [facility] Platelets Auto (Bld) [#/Vol] Ordered By: Carlos Guzmán on 11-24-2023 Platelets (Bld) [#/Vol] 369 10*3/uL 150-450 [facility] Potassium [Moles/volume] in Serum or PlasmaOrdered By: Carlos Guzmán on 11-24-2023 Potassium [Moles/Vol] 4.3 mmol/L 3.5-5.1 [facility] Protein Auto test strip (U) [Mass/Vol]Ordered By: Carlos Guzmán on 11-24-2023 Protein (U) [Mass/Vol] 30 mg/dL Negative [facility] Protein Electro, Random Urin sheree 11-24-2023 Albumin, Urine 50.7 % Normal . [facility] Comment on above: Performed By: #### I FE,URINE, SVETLANA SERUM, UPE RAND, SPE ####[facility] ,#### ESR, ADDONUAPLUS, CRP, CBC, CMP ####[facility] [id number] [place] [id number] [facility] Jxtqj-4-Ilbqaxll, Urine 1.3 % Normal . [facility] Comment on above: Performed By: #### I FE,URINE, SVETLANA SERUM, UPE RAND, SPE ####[facility] ,#### ESR, ADDONUAPLUS, CRP, CBC, CMP ####[facility] [id number] [place] [address] [facility] Filoq-2-Qdwkscnk, Urine 9.1 % Normal . [facility] Comment on above: Performed By: #### I FE,URINE, SVETLANA SERUM, UPE RAND, SPE ####[facility] ,#### ESR, ADDONUAPLUS, CRP, CBC, CMP ####[address] Beta Globulin, Urine 18.7 % Normal . [facility] Comment on above: Performed By: #### I FE,URINE, SVETLANA SERUM, UPE RAND, SPE ####[facility] ,#### ESR, ADDONUAPLUS, CRP, CBC, CMP ####[address] Gamma Globulin, Urine 20.1 % Normal . [facility] Comment on above: Performed By: #### I FE,URINE, SVETLANA SERUM, UPE RAND, SPE ####[facility] ,#### ESR, ADDONUAPLUS, CRP, CBC, CMP ####[address] M-Michael % Not Observed Normal Not Observed [facility] Comment on above: Performed By: #### I FE,URINE, SVETLANA SERUM, UPE RAND, SPE ####[facility] ,#### ESR, ADDONUAPLUS, CRP, CBC, CMP ####[address] Please Note: Normal . [facility] Comment on above: Result Comment: Prot ein electrophoresis scan will follow via computer, mail, or blood donor unit assistant delivery. PERFORMED BY: [facility] [address] [place] [address] PATHOLOGIST QUALITY CONTROL TECH ADELFO RAMIREZ M.D. Performed By: #### I FE,URINE, SVETLANA SERUM, UPE RAND, SPE ####[facility] ,#### ESR, ADDONUAPLUS, CRP, CBC, CMP ####[address] Protein (U) [Mass/Vol] 40.0 mg/dL Normal Not Estab. [facility] Comment on above: Performed By: #### I FE,URINE, SVETLANA SERUM, UPE RAND, SPE ####[facility] ,#### ESR, ADDONUAPLUS, CRP, CBC, CMP ####[facility] [id number] [place] [address] [place] Protein Electrophoresis, Ser umon 11-24-2023 Albumin [Mass/Vol] 3.5 g/dL Normal 2.9-4.4 [facility] Comment on above: Performed By: #### I FE,URINE, SVETLANA SERUM, UPE RAND, SPE #### [facility] , #### ESR, ADDONUAPLUS, CRP, CBC, CMP #### [facility] [address] [place] [address] Albumin/Globulin [Mass ratio] 0.8 {ratio} Normal 0.7-1.7 [facility] Comment on above: Performed By: #### I FE,URINE, SVETLANA SERUM, UPE RAND, SPE #### [facility] , #### ESR, ADDONUAPLUS, CRP, CBC, CMP #### [facility] [address] Vtflu-7-Omchkmov 0.2 g/dL Normal 0.0-0.4 [facility] Comment on above: Performed By: #### I FE,URINE, SVETLANA SERUM, UPE RAND, SPE #### [facility] , #### ESR, ADDONUAPLUS, CRP, CBC, CMP #### [facility] [address] [place] [address] [place] Qmxou-8-Fnsxlked 1.0 g/dL Normal 0.4-1.0 [facility] Comment on above: Performed By: #### I FE,URINE, SVETLANA SERUM, UPE RAND, SPE #### [facility] , #### ESR, ADDONUAPLUS, CRP, CBC, CMP #### [address] Beta Globulin 1.0 g/dL Normal 0.7-1.3 [facility] Comment on above: Performed By: #### I FE,URINE, SVETLANA SERUM, UPE RAND, SPE #### [facility] , #### ESR, ADDONUAPLUS, CRP, CBC, CMP #### [address] Gamma Globulin 2.2 g/dL High 0.4-1.8 [facility] Comment on above: Performed By: #### I FE,URINE, SVETLANA SERUM, UPE RAND, SPE #### [facility] , #### ESR, ADDONUAPLUS, CRP, CBC, CMP #### [address] M-Michael Not Observed Normal Not Observed [facility] Comment on above: Performed By: #### I FE,URINE, SVETLANA SERUM, UPE RAND, SPE #### [facility] , #### ESR, ADDONUAPLUS, CRP, CBC, CMP #### [address] Protein [Mass/Vol] 7.9 g/dL Normal 6.0-8.5 [facility] Comment on above: Performed By: #### I FE,URINE, SVETLANA SERUM, UPE RAND, SPE #### [facility] , #### ESR, ADDONUAPLUS, CRP, CBC, CMP #### [address] SPE-Note Normal . [facility] Comment on above: Result Comment: Prot ein electrophoresis scan will follow via computer, mail, or blood donor unit assistant delivery. Performed at: [facility] [id number] [employer] Operator: Krunal Nichols PhD, Phone: [phone] PERFORMED BY: [place] [address] PATHOLOGIST QUALITY CONTROL TECH ADELFO RAMIREZ M.D. Performed By: #### I FE,URINE, SVETLANA SERUM, UPE RAND, SPE #### [facility] , #### ESR, ADDONUAPLUS, CRP, CBC, CMP #### [address] Protein [Mass/volume] in Ser um or PlasmaOrdered By: Carlos Guzmán on 11-24-2023 Protein [Mass/Vol] 8.2 g/dL 6.4-8.9 [facility] Protein [Mass/Vol] 7.9 g/dL 6.0-8.5 [facility] Protein [Mass/volume] in Uri neOrdered By: Carlos Guzmán on 11-24-2023 Protein (U) [Mass/Vol] 40.0 mg/dL Not Estab. [facility] Protein.monoclonal/Protein.t otal in 24 hour Urine by ElectrophoresisOrdered By: Carlos Guzmán on 11-24-2023 Protein.monoclonal Elph (24H U) [Mass fraction] Not observed % Not Observed [facility] Proteinase 3 Ab [Units/volum e] in Serum by ImmunoassayOrdered By: Carlos Guzmán on 11-24-2023 Proteinase 3 Ab IA Qn (S) <0.2 units 0.0-0.9 [facility] RBC Auto (Bld) [#/Vol]Ordere d By: Carlos Guzmán on 11-24-2023 RBC (Bld) [#/Vol] 4.45 10*6/uL 3.90-5.60 [facility] Serum classic neutrophil cyt oplasmic antibody titer by immunofluorescenceOrdered By: Carlos Guzmán on 11-24-2023 Neutrophil cytoplasmic Ab.classic IF (S) [Titer] <1:20 titer Neg:<1:20 [facility] Serum globulin measurement b y calculation (mass/volume)Ordered By: Carlos Guzmán on 11-24-2023 Globulin (S) [Mass/Vol] 4.4 g/dL 2.2-3.9 [facility] Serum homogeneous pattern an tinuclear antibody (VANESSA) titerOrdered By: Carlos Guzmán on 11-24-2023 Homogenous nuclear Ab pattern (S) [Titer] 1:640 . [facility] Comment on above: ICAP nomenclature: A C-1 Serum nuclear antibody titer Ordered By: Carlos Guzmán on 11-24-2023 Nuclear Ab (S) [Titer] Positive . [facility] Comment on above: Negative <1:80 Borde rline 1:80 Positive >1:80 Serum or plasma albumin/glob ulin mass ratioOrdered By: Carlos Guzmán on 11-24-2023 Albumin/Globulin [Mass ratio] 0.9 {ratio} [facility] Albumin/Globulin [Mass ratio] 0.8 {ratio} 0.7-1.7 [facility] Serum or plasma alpha 1 glob ulin measurement by electrophoresis (mass/volume)Ordered By: Carlos Guzmán on 11-24-2023 Alpha 1 globulin Elph [Mass/Vol] 0.2 g/dL 0.0-0.4 [facility] Serum or plasma alpha 2 glob ulin measurement by electrophoresis (mass/volume)Ordered By: Carlos Guzmán on 11-24-2023 Alpha 2 globulin Elph [Mass/Vol] 1.0 g/dL 0.4-1.0 [facility] Serum or plasma anion gap de terminationOrdered By: Carlos Guzmán on 11-24-2023 Anion gap [Moles/Vol] 14.8 mmol/L 6.0-15.0 [facility] Serum or plasma beta globuli n measurement by electrophoresis (mass/volume)Ordered By: Carlos Guzmán on 11-24-2023 Beta globulin Elph [Mass/Vol] 1.0 g/dL 0.7-1.3 [facility] Serum or plasma complement C 3 measurement (mass/volume)Ordered By: Carlos Guzmán on 11-24-2023 Complement C3 [Mass/Vol] 135 mg/dL 82-167 [facility] Comment on above: Performed at: [address] [id number] Director: Krunal Nichols PhD, Phone: [phone] Serum or plasma complement C 4 measurement (mass/volume)Ordered By: Carlos Guzmán on 11-24-2023 Complement C4 [Mass/Vol] 10 mg/dL 12-38 [facility] Serum or plasma gamma globul in measurement by electrophoresis (mass/volume)Ordered By: Carlos Guzmán on 11-24-2023 Gamma globulin Elph [Mass/Vol] 2.2 g/dL 0.4-1.8 [facility] Sodium [Moles/volume] in Ser um or PlasmaOrdered By: Carlos Guzmán on 11-24-2023 Sodium [Moles/Vol] 138 mmol/L 136-145 [facility] Specific gravity Auto test s trip (U) [Rel density]Ordered By: Carlos Guzmán on 11-24-2023 Specific gravity (U) [Rel density] 1.039 1.001-1.030 [facility] Squamous epithelial cells de tection in urine sediment by light microscopyOrdered By: Carlos Guzmán on 11-24-2023 Epithelial cells.squamous LM Ql (Urine sed) None seen [HPF] 0-2 [facility] Urea nitrogen [Mass/volume] in Serum or PlasmaOrdered By: Carlos Guzmán on 11-24-2023 Urea nitrogen [Mass/Vol] 15 mg/dL 7-25 [facility] Urine alpha 1 globulin/total protein by electrophoresisOrdered By: Carlos Guzmán on 11-24-2023 Alpha 1 globulin Elph (U) [Mass fraction] 1.3 % . [facility] Urine alpha 2 globulin/total protein ratio by electrophoresisOrdered By: Carlos Guzmán on 11-24-2023 Alpha 2 globulin Elph (U) [Mass fraction] 9.1 % . [facility] Urine bacteria detection by automated methodOrdered By: Carlos Guzmán on 11-24-2023 Bacteria Auto Ql (U) None seen None Seen [facility] Urine beta globulin measurem ent by electrophoresis (mass/volume)Ordered By: Carlos Guzmán on 11-24-2023 Beta globulin Elph (U) [Mass/Vol] 18.7 % . [facility] Urine clarity by refractomet ry automatedOrdered By: Carlos Guzmán on 11-24-2023 Clarity Refractometry automated (U) Clear Clear [facility] Urine glucose measurement by automated test strip (mass/volume)Ordered By: Carlos Guzmán on 11-24-2023 Glucose Auto test strip (U) [Mass/Vol] >=1000 mg/dL Normal [facility] Urine hemoglobin detection b y automated test stripOrdered By: Carlos Guzmán on 11-24-2023 Hemoglobin Auto test strip Ql (U) Negative Negative [facility] Urine leukocyte esterase det ection by automated test stripOrdered By: Carlos Guzmán on 11-24-2023 Leukocyte esterase Auto test strip Ql (U) Negative Negative [facility] Urobilinogen Auto test strip (U) [Mass/Vol]Ordered By: Carlos Guzmán on 11-24-2023 Urobilinogen (U) [Mass/Vol] Normal mg/dL Normal [facility] WBC Auto (Bld) [#/Vol]Ordere d By: Carlos Guzmán on 11-24-2023 WBC (Bld) [#/Vol] 8.9 10*3/uL 4.1-10.5 [facility] pH Auto test strip (U)Ordere d By: Carlos Guzmán on 11-24-2023 pH (U) 5.0 [pH] 5.0-9.0 [facility] Basophils Auto (Bld) [#/Vol] on 10-28-2023 Basophils (Bld) [#/Vol] 0.1 10 3/uL 0.0-0.1 [facility] Basophils/100 WBC Auto (Bld) on 10-28-2023 Basophils/100 WBC (Bld) 0.7 % 0.2-2.0 [facility] Centriole Ab [Titer] in Seru m by Immunofluorescenceon 10-28-2023 Centriole Ab IF (S) [Titer] TNP . [facility] Centromere Ab [Titer] in Ser um by Immunofluorescenceon 10-28-2023 Centromere Ab IF (S) [Titer] TN . [facility] Eosinophils/100 WBC Auto (Bl d)on 10-28-2023 Eosinophils/100 WBC (Bld) 2.2 % 0.9-7.0 [facility] Erythrocyte distribution wid th Auto (RBC) [Ratio]on 10-28-2023 Erythrocyte distribution width (RBC) [Ratio] 14.6 % 11.0-15.0 [facility] Estimated glomerular filtrat ion rate (GFR) non- Americanon 10-28-2023 GFR/1.73 sq M.predicted among non-blacks MDRD (S/P/Bld) [Vol rate/Area] mL/min/{1.73_m2} >=60 [facility] Globulin Calc (S) [Mass/Vol] on 10-28-2023 Globulin (S) [Mass/Vol] 5.8 g/dL [facility] Hematocrit Auto (Bld) [Volum e fraction]on 10-28-2023 Hematocrit (Bld) [Volume fraction] 40.0 % 42.0-54.0 [facility] Hemoglobin [Mass/volume] in Bloodon 10-28-2023 Hemoglobin (Bld) [Mass/Vol] 13.1 g/dL 14.0-18. 0 [facility] Laboratory - Chemistry and C hemistry - challengeon 10-28-2023 Albumin [Mass/Vol] 2.8 g/dL 3.4-5.0 [facility] ALP [Catalytic activity/Vol] 94 U/L 46-116 [facility] ALT [Catalytic activity/Vol] 17 U/L 16-63 [facility] AST [Catalytic activity/Vol] 23 U/L 15-37 [facility] Bilirubin [Mass/Vol] 0.6 mg/dL 0.2-1.0 [facility] Calcium [Mass/Vol] 8.8 mg/dL 8.5-10.1 [facility] Chloride [Moles/Vol] 100 mmol/L 98-107 [facility] CO2 [Moles/Vol] 28.0 mmol/L 21.0-32.0 [facility] Creatinine [Mass/Vol] 0.80 mg/dL 0.70-1.30 [facility] GFR/1.73 sq M.predicted MDRD (S/P/Bld) [Vol rate/Area] mL/min/{1.73_m2} >=60 [facility] Glucose [Mass/Vol] 135 mg/dL 74-106 [facility] Potassium [Moles/Vol] 4.5 mmol/L 3.5-5.1 [facility] Protein [Mass/Vol] 8.6 g/dL 6.4-8.2 [facility] Sodium [Moles/Vol] 138 mmol/L 136-145 [facility] Urate [Mass/Vol] 4.2 mg/dL 3.5-7.2 [facility] Urea nitrogen [Mass/Vol] 14.0 mg/dL 7.0-18.0 [facility] Urea nitrogen/Creatinine [Mass ratio] 17.5 mg/mg [facility] Laboratory - Hematology and Cell countson 10-28-2023 ESR (Bld) [Velocity] 62 mm/h <=20 [facility] Immature granulocytes/100 WBC (Bld) 0.1 % 0.0-0.5 [facility] Leukocytes [#/volume] correc yuniel for nucleated erythrocytes in Blood by Automated counon 10-28-2023 WBC corrected for nucl RBC Auto (Bld) [#/Vol] 7.2 10 3/uL 4.0-11.0 [facility] Lymphocytes Auto (Bld) [#/Vo l]on 10-28-2023 Lymphocytes (Bld) [#/Vol] 1.9 10 3/uL 1.2-3.8 [facility] Lymphocytes/100 WBC Auto (Bl d)on 10-28-2023 Lymphocytes/100 WBC (Bld) 26.6 % 20.5-60.0 [facility] MCH Auto (RBC) [Entitic mass ]on 10-28-2023 MCH (RBC) [Entitic mass] 30.2 pg 25.9-34.0 [facility] MCHC Auto (RBC) [Mass/Vol]on 10-28-2023 MCHC (RBC) [Mass/Vol] 32.8 g/dL 29.9-35.2 [facility] MCV Auto (RBC) [Entitic vol] on 10-28-2023 MCV (RBC) [Entitic vol] 92.2 fL 80.0-94.0 [facility] Midbody Ab [Titer] in Serum by Immunofluorescenceon 10-28-2023 Midbody Ab IF (S) [Titer] TNP . [facility] Mitotic spindle apparatus Ab [Titer] in Serum or Plasma by Immunofluorescenceon 10-28-2023 Mitotic spindle apparatus Ab IF [Titer] TNP . [facility] Monocytes Auto (Bld) [#/Vol] on 10-28-2023 Monocytes (Bld) [#/Vol] 0.8 10 3/uL 0.3-0.8 [facility] Monocytes/100 WBC Auto (Bld) on 10-28-2023 Monocytes/100 WBC (Bld) 10.4 % 1.7-12.0 [facility] Neutrophils Auto (Bld) [#/Vo l]on 10-28-2023 Neutrophils (Bld) [#/Vol] 4.3 10 3/uL 1.4-6.5 [facility] Neutrophils/100 WBC Auto (Bl d)on 10-28-2023 Neutrophils/100 WBC (Bld) 60.0 % 43.0-75.0 [facility] No Panel Informationon 10-28 Anti-Nuclear Antibody Comment 2 Comment . [facility] Comment on above: Pattern Potential Di sease Association Homogeneous Systemic Lupus Erythematosus, Drug Induced Systemic Lupus Erythematosus, Chronic Autoimmune hepatitis, Juvenile Idiopathic Arthritis Speckled Sjogren Syndrome, Systemic Lupus Erythematosus, Subacute Cutaneous Lupus, Lupus, Congenital Heart Block, Mixed Connective Tissue Disease, Scleroderma-diffuse, Scleroderma-Autoimmune Myositis Overlap Syndrome, Systemic Lupus Oewxardtrrcok-Knswvwymgze-Ihadyjmwsy Myositis Overlap Syndrome, Systemic Autoimmune Rheumatic Disease, Undifferentiated Connective Tissue Disease Nucleolar Systemic Sclerosis, Scleroderma-Autoimmune Myositis Overlap Syndrome, Sjogren Syndrome, Raynaud phenomenon, Pulmonary Arterial Hypertension, Systemic Autoimmune Rheumatic Disease, Cancer Centrome[facility] Scleroderma-CREST, Limited Cutaneous SSc, Raynaud's Phenomenon, Primary Biliary Cholangitis Nuclear Dot Primary Biliary Cholangitis Nuclear Primary Biliary Cholangitis, AutoimmuneMembrane Hepatitis/Liver disease, Systemic Autoimmune Rheumatic Disease, Autoimmune Cytopenias, Linear Scleroderma, Antiphospholipid Syndrome Performed at: [facility] [id number] Director: Krunal Nichols PhD, Phone: [phone] C-Reactive Protein, Quantitative <0.50 mg/dL <=0.50 [facility] Eosinophils # (Auto) 0.2 10 3/uL 0.0-0.7 [facility] Immature Granulocyte # (Auto) 0.01 10 3/uL 0.00-0.03 [facility] Nuclear dots nuclear Ab prashant bhupendra [Titer] in Serum by Immunofluorescenceon 10-28-2023 Nuclear dots nuclear Ab pattern IF (S) [Titer] TNP . [facility] Nuclear membrane pores nucle ar Ab pattern [Titer] in Serum by Immunofluorescenceon 10-28-2023 Nuclear membrane pores nuclear Ab pattern IF (S) [Titer] TNP . [facility] PCNA extractable nuclear Ab [Titer] in Serum by Immunofluorescenceon 10-28-2023 PCNA extractable nuclear Ab IF (S) [Titer] TNP . [facility] Platelet mean volume Auto (B ld) [Entitic vol]on 10-28-2023 Platelet mean volume (Bld) [Entitic vol] 8.9 fL 9.5-13.5 [facility] Platelets Auto (Bld) [#/Vol] on 10-28-2023 Platelets (Bld) [#/Vol] 296 10 3/uL 150-450 [facility] RBC Auto (Bld) [#/Vol]on RBC (Bld) [#/Vol] 4.34 10 6/uL 4.70-6.10 [facility] Serum homogeneous pattern an tinuclear antibody (VANESSA) titeron 10-28-2023 Homogenous nuclear Ab pattern (S) [Titer] 1:640 . [facility] Comment on above: ICAP nomenclature: A C-1 Serum nuclear antibody titer on 10-28-2023 Nuclear Ab (S) [Titer] Positive . [facility] Comment on above: Negative <1:80 Borde rline 1:80 Positive >1:80 Serum nucleolar pattern anti nuclear antibody (VANESSA) titeron 10-28-2023 Nucleolar nuclear Ab pattern (S) [Titer] TNP . [facility] Serum or plasma albumin/glob ulin mass ratioon 10-28-2023 Albumin/Globulin [Mass ratio] 0.5 {ratio} [facility] Serum or plasma anion gap de terminationon 10-28-2023 Anion gap [Moles/Vol] 14.5 mmol/L [facility] Serum or plasma cyclic adeno sine monophosphate measurement (moles/volume)on 10-28-2023 Adenosine monophosphate.cyclic [Moles/Vol] >250 units 0-19 [facility] Comment on above: Negative <20 Weak po sitive 20 - 39 Moderate positive 40 - 59 Strong positive >59Performed at: - [facility] [id number] Director: Krunal Nichols PhD, Phone: [phone] Serum or plasma rheumatoid f actor measurement (units/volume)on 10-28-2023 Rheumatoid factor Qn 183.9 [IU]/mL <14.0 [facility] Comment on above: Results confirmed on dilution.Performed at: [facility] [id number] Director: Krunal Nichols PhD, Phone: [phone] Serum speckled pattern antin uclear antibody (VANESSA) titeron 10-28-2023 Speckled nuclear Ab pattern (S) [Titer] TNP . [facility] Glucose Glucometer (BldC) [M ass/Vol]Ordered By: Erickson Nascimento on 07-04-2023 Glucose [Mass/Vol] 134 mg/dL [facility] Comment on above: Random Glucose Refer ence Range is dependent on time and content of last meal. Glucose of more than 200 mg/dL in a nonstressed, ambulatory subject supports the diagnosis of Diabetes Mellitus. Glucose Poct Glucometerson 1 09-03-2022 Glucose [Mass/Vol] 134 mg/dL Normal [facility] Comment on above: Result Comment: [place] om Glucose Reference Range is dependent on time and content of last meal. Glucose of more than 200 mg/dL in a nonstressed, ambulatory subject supports the diagnosis of Diabetes Mellitus. PERFORMED BY: [facility] [address] [place] [address] PATHOLOGIST QUALITY CONTROL TECH ADELFO RAMIREZ M.D. Performed By: #### G LOYD ####Point of Care testing, Eduard 07-04-2023 L - -------- Specimen: [id number] Received: 07/04/23 Status: RAQUEL De Oliveira Num: [id number] Spec Type: Surgical Subm Dr: Erickson Nascimento DO Tissues: A Soft Tissue/Surgical Margin-Other than Tumor,Mass,Lip or Natasha (LT ELBOW MASS) Procedures: VINCENT, Gross/Micro L4 -------- Age/ Patient Sex Location Account Attending Physician -------- Mariano Gutierrez 73/M [place] [id number] Erickson Nascimento DO -------- SPEC NUM: [id number] RECD: 07/04/23 STATUS: RAQUEL DE OLIVEIRA NUM: [id number] DENISA: 07/04/[address] [facility] [address]: Erickson Nascimento DO ENTERED: 07/04/23 [facility] DR: DARY TYPE: Surgical DEPT: S ORDERED: VINCENT, [...] tissue with a rubbery, dubois-pink cut surface. Weave Room Supervisor sections are submitted in one cassette labeled A1. -------- Specimen: [id number] Received: 07/04/23 Status: RAQUEL De Oliveira Num: [id number] Spec Type: Surgical Subm Dr: Erickson Nascimento, Tissues: A Soft Tissue/Surgical Margin-Other than Tumor,Mass,Lip or Natasha (LT ELBOW MASS) Procedures: Kristin KAUR/Zo L4 -------- Patient: Mariano Gutierrez [id number] (Continued) -------- Specimen: [id number] Received: 07/04/23 (Continued) Signed (signature on file) Brandy Keane MD 07/08/23 1545 -------- Specimen: [id number] Received: 07/04/23 Status: RAQUEL De Oliveira Num: [id number] Spec Type: Surgical Subm Dr: Erickson Nascimento DO Tissues: A Soft Tissue/Surgical Margin-Other than Tumor,Mass,Lip or Natasha (LT ELBOW MASS) Procedures: Kristin KAUR/Zo L4 -------- Patient: Mariano Gutierrez [id number] (Continued) -------- Specimen: [id number] Received: 07/04/23 (Continued) Microscopic Description One H E slide reviewed. The microscopic examination confirms the diagnosis. CPT Codes 12207 -------- -------- Specimen: [id number] Received: 07/04/23 Status: RAQUEL De Oliveira Num: [id number] Spec Type: Surgical Subm Dr: Erickson Nascimento DO Tissues: A Soft Tissue/Surgical Margin-Other than Tumor,Mass,Lip or Natasha (LT ELBOW MASS) Procedures: Kristin KAUR/Zo L4 -------- Patient: Mariano Gutierrez [id number] (Continued) -------- Signed (signature on file) Brandy Keane MD 07/08/23 1113 Normal [facility] XR elbow LT 2Von 02-26-2023 XR elbow LT 2V [address] [address] XRay Report Signed Patient: Mariano Gutierrez MR#: [id number] : 1950 Acct:[id number] Age/Sex: 72 / M ADM Date: 02/26/23 Loc: [facility] [place] Room: Type: [facility] Attending Dr: Erickson Nascimento DO Copies to: [...] Blount Jr., D.OJeferson02/26/2023 2:56 PM Dictation Location: [place] [address] Transcribed By: [facility] 02/26/23 1456 Dictated By: Abdirahman Blount Jr, DO 02/26/23 1455 Signed By: 02/26/23 1456 Normal [facility] GLYCOHEMOGLOBIN A1Con 2022 ADA RECOMMENDATION SEE BELOW Normal [facility] Comment on above: Result Comment: ADA RECOMMENDED LIMIT 4.0 - 6.0 ADA THERAPEUTIC TARGET < 7.0 ACTION SUGGESTED > 7.0 Performed By: #### D ATA1C #### [facility] [address] [place] [address] Dr. Ginger Keane Glucose [Mass/Vol] 123 mg/dL Normal [facility] Comment on above: Performed By: #### D ATA1C #### [facility] [address] [address] [address] Ginger Keane HbA1c (Bld) [Mass fraction] 5.9 % Normal 4.5-6.2 [facility] Comment on above: Performed By: #### D ATA1C #### [facility] [address] [address] [address] Ginger Keane GLYCOHEMOGLOBIN A1Con 2021 ADA RECOMMENDATION SEE BELOW Normal [facility] Comment on above: Result Comment: ADA RECOMMENDED LIMIT 4.0 - 6.0 ADA THERAPEUTIC TARGET < 7.0 ACTION SUGGESTED > 7.0 Performed By: #### D ATA1C #### [facility] [address] [place] [address] Dr. Ginger Keane Glucose [Mass/Vol] 160 mg/dL Normal [facility] Comment on above: Performed By: #### D ATA1C #### [facility] [address] [place] [address] Dr. Ginger Keane HbA1c (Bld) [Mass fraction] 7.2 % Critically high 4.5 -6.2 [facility] Comment on above: Performed By: #### D ATA1C #### [facility] [address] [place] [address] Dr. Ginger Keane MICROALBUMIN URINEon 022 Albumin, Urine 123.8 ug/mL Normal Not Estab. [facility] Comment on above: Performed By: #### M ALBLC #### [facility] [address] [place] [address] Dr. Ginger Keane CBC AUTO DIFFon 05-15-2022 BASO # 0.1 103/ul Normal 0.0-0.1 [facility] Comment on above: Performed By: #### C BC #### [facility] [address] [place] [address] Dr. Ginger Keane Basophils/100 WBC (Bld) 0.6 % Normal 0.2-2.0 [facility] Comment on above: Performed By: #### C BC #### [facility] [address] [place] [address] Dr. Ginger Keane EO # 0.2 103/ul Normal 0.0-0.7 [facility] Comment on above: Performed By: #### C BC #### [facility] [address] [place] [address] Dr. Ginger Keane Eosinophils/100 WBC (Bld) 2.9 % Normal 0.9-7.0 [facility] Comment on above: Performed By: #### C BC #### [facility] [address] [place] [address] Dr. Ginger Keane Erythrocyte distribution width (RBC) [Ratio] 12.9 % Normal 11.0-15.0 [facility] Comment on above: Performed By: #### C BC #### [facility] [address] [place] [address] Dr. Ginger Keane Hematocrit (Bld) [Volume fraction] 44.3 % Normal 42.0-54.0 [facility] Comment on above: Performed By: #### C BC #### [facility] [address] [place] [address] Dr. Ginger Keane Hemoglobin (Bld) [Mass/Vol] 15.6 g/dL Normal 14.0-18. 0 [facility] Comment on above: Performed By: #### C BC #### [facility] [address] [place] [address] Dr. Ginger Keane IG # 0.01 10e3/ul Normal 0.00-0.03 [facility] Comment on above: Performed By: #### C BC #### [facility] [address] [place] [address] Dr. Ginger Keane IG % 0.1 % Normal 0.0-0.5 [facility] Comment on above: Performed By: #### C BC #### [facility] [address] [place] [address] Dr. Ginger Keane LYMPH # 2.9 103/ul Normal 1.2-3.8 [facility] Comment on above: Performed By: #### C BC #### [facility] [address] [place] [address] Dr. Ginger Keane Lymphocytes/100 WBC (Bld) 34.1 % Normal 20.5-60.0 [facility] Comment on above: Performed By: #### C BC #### [facility] [address] [place] [address] Dr. Ginger Keane MANUAL DIFF REQ NO Normal [facility] Comment on above: Performed By: #### C BC #### [facility] [address] [place] [address] Dr. Ginger Keane MCH (RBC) [Entitic mass] 32.8 pg Normal 25.9-34.0 [facility] Comment on above: Performed By: #### C BC #### [facility] [address] [address] [address] Ginger Keane MCHC (RBC) [Mass/Vol] 35.2 g/dL Normal 29.9-35.2 [facility] Comment on above: Performed By: #### C BC #### [facility] [address] [address] [address] Ginger Keane MCV (RBC) [Entitic vol] 93.3 fL Normal 80.0-94.0 [facility] Comment on above: Performed By: #### C BC #### [facility] [address] [place] [address] Dr. Ginger Keane MONO # 0.6 103/ul Normal 0.3-0.8 [facility] Comment on above: Performed By: #### C BC #### [facility] [address] [place] [address] Dr. Ginger Keane Monocytes/100 WBC (Bld) 7.5 % Normal 1.7-12.0 [facility] Comment on above: Performed By: #### C BC #### [facility] [address] [place] [address] Dr. Ginger Keane NEUT # 4.6 103/ul Normal 1.4-6.5 [facility] Comment on above: Performed By: #### C BC #### [facility] [address] [place] [address] Dr. Ginger Keane Neutrophils/100 WBC (Bld) 54.8 % Normal 43.0-75.0 [facility] Comment on above: Performed By: #### C BC #### [facility] [address] [address] [address] Ginger Keane Platelet mean volume (Bld) [Entitic vol] 9.7 fL Normal 9.5-13.5 [facility] Comment on above: Performed By: #### C BC #### [facility] [address] [place] [address] Dr. Ginger Keane PLT 260 103/ul Normal 150-450 [facility] Comment on above: Performed By: #### C BC #### [facility] [address] [address] [address] Ginger Keane RBC 4.75 106/ul Normal 4.70-6.10 [facility] Comment on above: Performed By: #### C BC #### [facility] [address] [address] [address] Ginger Keane WBC 8.4 103/ul Normal 4.0-11.0 [facility] Comment on above: Performed By: #### C BC #### [facility] [address] [place] [address] Dr. Ginger Keane LIPID PROFILEon 05-15-2022 CHOL-HDL RATIO NORM SEE BELOW Normal [facility] Comment on above: Result Comment: 3.3 - 4.4 LOW RISK 4.4 - 7.1 AVERAGE RISK 7.1 - 11.0 MODERATE RISK >11.0 HIGH RISK Performed By: #### B MP, LIPID, ALT #### [facility] [address] [place] [address] Dr. Ginger Keane Cholesterol [Mass/Vol] 119 mg/dL Normal <=200 Th [facility] Comment on above: Performed By: #### B MP, LIPID, ALT #### [facility] [address] [place] [address] Dr. Ginger Keane Cholesterol in HDL [Mass/Vol] 37 mg/dL Critically low 40-60 [facility] Comment on above: Performed By: #### B MP, LIPID, ALT #### [facility] [address] [place] [address] Dr. Ginger Keane Cholesterol in LDL [Mass/Vol] 35.2 mg/dL Normal [facility] Comment on above: Performed By: #### B MP, LIPID, ALT #### [facility] [address] [place] [address] Dr. Ginger Keane Cholesterol.total/Cholester ol in HDL [Mass ratio] 3.2 {ratio} Normal [facility] Comment on above: Performed By: #### B MP, LIPID, ALT #### [facility] [address] [place] [address] Dr. Ginger Keane HDL NORMAL > or = 60 mg/dl - LO W CARDIOVASCULAR RISK <40 mg/dl - HIGH CARDIOVASCULAR RISK Normal [facility] Comment on above: Performed By: #### B MP, LIPID, ALT #### [facility] [address] [address] [address] Ginger Keane LDL CALC NORMAL SEE BELOW Normal [facility] Comment on above: Result Comment: <100 mg/dl OPTIMAL 100 - 129 mg/dl NEAR OR ABOVE OPTIMAL 130 - 159 mg/dl BORDERLINE HIGH 160 - 189 mg/dl HIGH >190 mg/dl VERY HIGH Performed By: #### B MP, LIPID, ALT #### [facility] [address] [address] [address] Ginger Keane Triglyceride [Mass/Vol] 234 mg/dL Critically high <=150 [facility] Comment on above: Performed By: #### B MP, LIPID, ALT #### [facility] [address] [place] [address] Dr. Ginger Keane VLDL CALC 46.8 mg/dL Normal [facility] Comment on above: Performed By: #### B MP, LIPID, ALT #### [facility] [address] [address] [address] Ginger Keane PROF CHEM 8 (BAS METB)on Anion gap [Moles/Vol] 13.3 mmol/L Normal [facility] Comment on above: Performed By: #### B MP, LIPID, ALT #### [facility] [address] [address] [address] Ginger Keane Calcium [Mass/Vol] 8.7 mg/dL Normal 8.5-10.1 [facility] Comment on above: Performed By: #### B MP, LIPID, ALT #### [facility] [address] [address] [address] Ginger Keane Chloride [Moles/Vol] 102 mmol/L Normal 98-107 [facility] Comment on above: Performed By: #### B MP, LIPID, ALT #### [facility] [address] [address] [address] Ginger Keaen CO2 [Moles/Vol] 26.8 mmol/L Normal 21.0-32.0 [facility] Comment on above: Performed By: #### B MP, LIPID, ALT #### [facility] [address] [address] [address] Ginger Keane Creatinine [Mass/Vol] 0.92 mg/dL Normal 0.70-1.30 [facility] Comment on above: Performed By: #### B MP, LIPID, ALT #### [facility] [address] [address] [address] Ginger Keane EGFR-AF AUSTRALIAN >60 Normal >=60 [facility] Comment on above: Performed By: #### B MP, LIPID, ALT #### [facility] [address] [address] [address] Ginger Keane EGFR-NON AF AUSTRALIAN >60 Normal >=60 [facility] Comment on above: Performed By: #### B MP, LIPID, ALT #### [facility] [address] [address] [address] Ginger Keane Glucose [Mass/Vol] 161 mg/dL Critically high 74-106 T [facility] Comment on above: Performed By: #### B MP, LIPID, ALT #### [facility] [address] [place] [address] Dr. Ginger Keane Potassium [Moles/Vol] 4.1 mmol/L Normal 3.5-5.1 [facility] Comment on above: Performed By: #### B MP, LIPID, ALT #### [facility] [address] [address] [address] Ginger Keane Sodium [Moles/Vol] 138 mmol/L Normal 136-145 [facility] Comment on above: Performed By: #### B MP, LIPID, ALT #### [facility] [address] [address] [address] Ginger Keane Urea nitrogen [Mass/Vol] 13.0 mg/dL Normal 7.0-18.0 [facility] Comment on above: Performed By: #### B MP, LIPID, ALT #### [facility] [address] [place] [address] Dr. Ginger Keane Urea nitrogen/Creatinine [Mass ratio] 14.1 mg/mg Normal [facility] Comment on above: Performed By: #### B MP, LIPID, ALT #### [facility] [address] [address] [address] [facility] ALT [Catalytic activity/Vol] 26 U/L Normal 16-63 [facility] Comment on above: Performed By: #### B MP, LIPID, ALT #### [facility] [address] [address] [address] Ginger Keane GLYCOHEMOGLOBIN A1Con 2021 ADA RECOMMENDATION SEE BELOW Normal [facility] Comment on above: Result Comment: ADA RECOMMENDED LIMIT 4.0 - 6.0 ADA THERAPEUTIC TARGET < 7.0 ACTION SUGGESTED > 7.0 Performed By: #### D ATA1C #### [facility] [address] [address] [address] Ginger Keane Glucose [Mass/Vol] 146 mg/dL Normal [facility] Comment on above: Performed By: #### D ATA1C #### [facility] [address] [address] [address] Ginger Keane HbA1c (Bld) [Mass fraction] 6.7 % Critically high 4.5 -6.2 [facility] Comment on above: Performed By: #### D ATA1C #### [facility] [address] [address] [address] Ginger Keane Vital Signs Date Time Vital Sign Value Performing Clinician Facility 05-26-2024 13: Body height 180.34 cm [facility] 05-26-2024 13:040 Body mass index (BMI) [Ratio] 28.2 kg/m2 [facility] 05-26-2024 13: Body weight 91.73 kg [facility] 05-26-2024 13:28040 Diastolic blood pressure 64 mm[Hg] [facility] 05-26-2024 13:28040 Heart rate 77 /min [facility] 05-26-2024 13:28040 Systolic blood pressure 122 mm[Hg] [facility] 12-30-2023 11:02-0400 Body height 180.34 cm DO Vernon Ball Work Phone: [facility] 12-30-2023 11:02-0400 Body mass index (BMI) [Ratio] 26.4 kg/m2 DO Vernon Ball Work Phone: [facility] 12-30-2023 11:02-0400 Body weight 85.89 kg DO Vernon Ball Work Phone: [facility] 12-30-2023 11:02-0400 Diastolic blood pressure 72 mm[Hg] DO Vernon Ball Work Phone: [facility] 12-30-2023 11:02-0400 Heart rate 93 /min DO Vernon Ball Work Phone: [facility] 12-30-2023 11:02-0400 Respiratory rate 16 /min DO Vernon Ball Work Phone: [facility] 12-30-2023 11:02-0400 Systolic blood pressure 123 mm[Hg] DO Vernon Ball Work Phone: [facility] 10-20-2023 15:23-0500 Body height 180.34 cm [facility] 10-20-2023 15:23-0500 Body mass index (BMI) [Ratio] 25.5 kg/m2 [facility] 10-20-2023 15:23-0500 Body weight 83.09 kg [facility] 10-20-2023 15:23-0500 Diastolic blood pressure 65 mm[Hg] [facility] 10-20-2023 15:23-0500 Heart rate 99 /min [facility] 10-20-2023 15:23-0500 Respiratory rate 20 /min [facility] 10-20-2023 15:23-0500 Systolic blood pressure 126 mm[Hg] [facility] 10-01-2023 10:00-0500 Body height 180.34 cm Vernon Ball Other [facility] 01-31-2024 10:00-0500 Diastolic blood pressure 70 mm[Hg] Vernon Ball Other [facility] 10-01-2023 10:00-0500 SaO2% (BldA) [Mass fraction] 90 % Vernon Ball Other [facility] [employer] Other 10-01-2023 10:00-0500 Systolic blood pressure 124 mm[Hg] Vernon Ball Other [facility] 08-29-2023 10:00-0500 Body height 180.34 cm Vernon Ball Other [facility] 08-29-2023 10:00-0500 Body mass index (BMI) [Ratio] 25.63 kg/m2 Vernon Ball Other [facility] [employer] Other 08-29-2023 10:00-0500 Body weight 83.37 kg Vernon Ball Other [facility] 08-29-2023 10:00-0500 Diastolic blood pressure 63 mm[Hg] Vernon Ball Other [facility] 08-29-2023 10:00-0500 Respiratory rate 20 /min Vernon Ball Other [facility] [employer] Other 08-29-2023 10:00-0500 SaO2% (BldA) [Mass fraction] 84 % Vernon Ball Other [facility] [employer] Other 08-29-2023 10:00-0500 Systolic blood pressure 109 mm[Hg] Vernon Ball Other [facility] 08-12-2023 11:00-0500 Body height 180.34 cm Vernon Ball Other [facility] 08-12-2023 11:00-0500 Body mass index (BMI) [Ratio] 25.55 kg/m2 Vernon Ball Other [facility] Other 08-12-2023 11:00-0500 Body weight 83.1 kg Vernon Ball Other [facility] Other 08-12-2023 11:00-0500 Body weight 83.09 kg [facility] 08-12-2023 11:00-0500 Diastolic blood pressure 88 mm[Hg] Vernon Ball Other [facility] 08-12-2023 11:00-0500 Respiratory rate 20 /min Vernon Ball Other [facility] Other 08-12-2023 11:00-0500 SaO2% (BldA) [Mass fraction] 94 % Vernon Ball Other [facility] [employer] Other 08-12-2023 11:00-0500 Systolic blood pressure 120 mm[Hg] Vernon Ball Other [facility] 07-10-2023 11:45-0500 Body height 180.34 cm Vernon Ball Other [facility] Other 07-10-2023 11:45-0500 Body mass index (BMI) [Ratio] 26.22 kg/m2 Vernon Ball Other [facility] Other 07-10-2023 11:45-0500 Body weight 85.28 kg Vernon Ball Other [facility] Other 07-10-2023 11:45-0500 Diastolic blood pressure 75 mm[Hg] Vernon Ball Other [facility] Other 07-10-2023 11:45-0500 Respiratory rate 16 /min Vernon Ball Other [facility] Other 07-10-2023 11:45-0500 Systolic blood pressure 129 mm[Hg] Vernon Ball Other [facility] Other 07-04-2023 08:03-0400 Diastolic blood pressure 93 mm[Hg] DO Vernon Ball Work Phone: [facility] 07-04-2023 08:03-0400 Heart rate 89 /min DO Vernon Ball Work Phone: [facility] 07-04-2023 08:03-0400 Respiratory rate 16 /min DO Vernon Ball Work Phone: [facility] 07-04-2023 08:03-0400 SaO2% (BldA) [Mass fraction] 93 % DO Vernon Ball Work Phone: [facility] 07-04-2023 08:03-0400 Systolic blood pressure 140 mm[Hg] DO Veronn Ball Work Phone: [facility] 07-04-2023 06:47-0400 Body height 180.34 cm DO Vernon Ball Work Phone: [facility] 07-04-2023 06:47-0400 Body temperature 98.2 [degF] DO Vernon Ball Work Phone: [facility] 07-04-2023 06:47-0400 Body weight 86.18 kg DO Vernon Ball Work Phone: [facility] 07-02-2023 13:45-0400 Body height 180.34 cm Erickson Nascimento Other [facility] Other 07-02-2023 13:45-0400 Body mass index (BMI) [Ratio] 26.5 kg/m2 Erickson Nascimento Other [facility] Other 07-02-2023 13:45-0400 Body weight 86.18 kg Ericskon Nascimento Other [facility] Other 05-20-2023 10:00-0400 Body height 180.34 cm Vernon [facility] [employer] Other [facility] Other 05-20-2023 10:00-0400 Body mass index (BMI) [Ratio] 26.64 kg/m2 Vernon Ball Other [facility] Other 05-20-2023 10:00-0400 Body weight 86.64 kg Vernon Ball Other [facility] Other 05-20-2023 10:00-0400 Diastolic blood pressure 74 mm[Hg] Vernon Ball Other [facility] Other 05-20-2023 10:00-0400 Respiratory rate 12 /min Vernon Ball Other [facility] Other 05-20-2023 10:00-0400 Systolic blood pressure 117 mm[Hg] Vernon Ball Other [facility] Other 02-17-2023 10:30-0400 Body height 180.34 cm Vernon Ball Other [facility] Other 02-17-2023 10:30-0400 Body mass index (BMI) [Ratio] 27.58 kg/m2 Vernon Ball Other [facility] Other 02-17-2023 10:30-0400 Body weight 89.72 kg Vernon Ball Other [facility] Other 02-17-2023 10:30-0400 Diastolic blood pressure 78 mm[Hg] Vernon Ball Other [facility] Other 02-17-2023 10:30-0400 Respiratory rate 12 /min Vernon Ball Other [facility] Other 02-17-2023 10:30-0400 Systolic blood pressure 128 mm[Hg] Vernon Ball Other [facility] Other 11-18-2022 11:30-0400 Body height 180.34 cm Vernon Ball Other [facility] Other 11-18-2022 11:30-0400 Body mass index (BMI) [Ratio] 27.42 kg/m2 Vernon Ball Other [facility] Other 11-18-2022 11:30-0400 Body weight 89.18 kg Vernon Ball Other [facility] Other 11-18-2022 11:30-0400 Diastolic blood pressure 70 mm[Hg] Vernon Ball Other [facility] Other 11-18-2022 11:30-0400 Respiratory rate 12 /min Vernon Ball Other [facility] Other 11-18-2022 11:30-0400 Systolic blood pressure 122 mm[Hg] Vernon Ball Other [facility] Other Encounters Encounter Date Encounter Type Care Provider Facility Start: 05-26-2024 End: 05-26-2024 ambulatory [facility] Work Phone: Start: 05-26-2024 End: 05-26-2024 Patient encounter procedure [facility] Work Phone: Start: 05-24-2024 Patient encounter procedure [facility] Start: 05-17-2024 End: 05-17-2024 ambulatory CHELA ZARATE Not Available Start: 03-11-2024 Non-patient / Non-visit [facility] [employer] Work Phone: Start: 12-31-2023 End: 12-31-2023 ambulatory Carlos Guzmán Facility:[facility] Start: 12-30-2023 End: 12-30-2023 ambulatory DO Vernon Ball Work Phone: [facility] Work Phone: Start: 12-30-2023 End: 12-30-2023 Patient encounter procedure DO Vernon Greene Work Phone: [facility] Work Phone: Start: 12-29-2023 Non-patient / Non-visit DO Skinny Greene Work Phone: [facility] [employer] Work Phone: Start: 12-22-2023 Non-patient / Non-visit DO Skinny Greene Work Phone: [facility] Work Phone: Start: 12-09-2023 End: 12-09-2023 ambulatory [facility] Facility:[facility] Start: 12-09-2023 End: 12-09-2023 ambulatory DO Vernon Greene Work Phone: [facility] Work Phone: Start: 12-09-2023 End: 12-09-2023 Patient encounter procedure DO Vernon Greene Work Phone: [facility] [address] Work Phone: Start: 11-26-2023 End: 11-26-2023 ambulatory Vernon Greene Other [facility] [employer] Other Start: 11-26-2023 Telephone encounter [facility] Greene [facility] Start: 11-24-2023 End: 11-24-2023 ambulatory Carlos Villaloboscalifonfranky Facility:[facility] Start: 11-24-2023 End: 11-24-2023 ambulatory DO Vernon Greene Work Phone: [facility] Work Phone: Start: 11-24-2023 End: 11-24-2023 Patient encounter procedure DO Vernon Greene Work Phone: [facility] [address] Work Phone: Start: 10-28-2023 Non-patient / Non-visit DO Skinny Greene Work Phone: [facility] Physician [facility] [employer] Work Phone: Start: 10-20-2023 End: 10-20-2023 ambulatory [facility] Work Phone: Start: 10-20-2023 End: 10-20-2023 Patient encounter procedure [facility] Work Phone: Start: 10-14-2023 Non-patient / Non-visit DO Skinny Greene Work Phone: [facility] Physician [facility] Work Phone: Start: 10-07-2023 End: 10-07-2023 ambulatory Vernon Greene Other [employer] Other Start: 10-07-2023 Telephone encounter Vernon KANG [facility] Start: 10-06-2023 End: 10-06-2023 ambulatory Vernon Greene Other [facility] Other Start: 10-06-2023 Telephone encounter Vernon KANG [facility] Start: 10-01-2023 End: 10-01-2023 ambulatory Imad Asaad Other [facility] Other Start: 10-01-2023 Office outpatient vi sit 25 minutes Vernon Greene [facility] Start: 10-01-2023 Telephone encounter Imad Asaad [facility] [employer] Start: 10-01-2023 End: 10-01-2023 Patient encounter procedure [facility]- Start: 09-02-2023 End: 09-02-2023 ambulatory Vernon Greene Other [facility] Other Start: 09-02-2023 Telephone encounter Vernon KANG [facility] Start: 08-29-2023 End: 08-29-2023 ambulatory Vernon Greene Other [employer] Other Start: 08-29-2023 Office outpatient vi sit 25 minutes Vernon Greene [facility] Start: 08-29-2023 End: 08-29-2023 Patient encounter procedure [facility] Work Phone: Start: 08-12-2023 End: 08-12-2023 ambulatory Vernon Greene Other [facility] Other Start: 08-12-2023 Transitional care nicole cleary srvc 14 day discharge Vernon Greene [facility] Start: 08-12-2023 End: 08-12-2023 Patient encounter procedure [facility] Work Phone: Start: 08-06-2023 End: 08-06-2023 ambulatory Vernon Greene Other [employer] Other Start: 08-06-2023 Telephone encounter Vernon Greene [facility] Start: 08-01-2023 End: 08-01-2023 ambulatory Vernon Greene Other [employer] Other Start: 08-01-2023 Telephone encounter Vernon Greene [facility] Start: 07-30-2023 End: 07-30-2023 ambulatory Vernon Greene Other [employer] Other Start: 07-30-2023 Telephone encounter Vernon KANG [facility] Start: 07-16-2023 End: 07-16-2023 ambulatory Navneet Puga Other [employer] Other Start: 07-16-2023 Telephone encounter Navneet Ramires [employer] Start: 07-13-2023 End: 07-13-2023 ambulatory Vernon Greene Other [employer] Other Start: 07-13-2023 Telephone encounter Vernon Greene [facility] Start: 07-10-2023 End: 07-10-2023 ambulatory Vernon Greene Other [employer] Other Start: 07-10-2023 Office outpatient vi sit 25 minutes Vernon Greene [facility] Start: 07-10-2023 Telephone encounter Vernon Greene [facility] Start: 07-04-2023 Telephone encounter Vernon Greene [facility] Start: 07-04-2023 End: 07-04-2023 ambulatory Erickson Nascimento Facility:[facility] Start: 07-04-2023 End: 07-04-2023 Admission to same day surgery center DO Vernon Ball Work Phone: [facility] [place] Start: 07-04-2023 End: 07-04-2023 ambulatory DO Vernon Ball Work Phone: [facility] Work Phone: Start: 07-02-2023 End: 07-02-2023 ambulatory Erickson Nascimento Other [employer] Other Start: 07-02-2023 Office outpatient vi sit 25 minutes Erickson Nascimento [facility] Start: 05-21-2023 End: 05-21-2023 ambulatory Vernon Greene Other [employer] Other Start: 05-21-2023 Telephone encounter Vernon Greene [facility] Start: 05-20-2023 End: 05-20-2023 ambulatory Vernon Greene Other [employer] Other Start: 05-20-2023 Patient encounter procedure Vernon Greene [facility] Start: 02-27-2023 End: 02-27-2023 ambulatory Erickson Nascimento Other [facility] Other Start: 02-27-2023 Telephone encounter Erickson KANG [facility] Start: 02-26-2023 End: 02-26-2023 ambulatory Erickson Nascimento Facility:[facility] Start: 02-26-2023 End: 02-26-2023 Patient encounter procedure DO Erickson Nascimento Work Phone: [facility] Start: 02-26-2023 End: 02-26-2023 ambulatory DO Erickson Nascimento Work Phone: [facility] Work Phone: Start: 02-26-2023 Office outpatient ne w 45 minutes Erickson Pily [facility] Start: 02-17-2023 End: 02-17-2023 ambulatory Vernon Ball Other [facility] Other Start: 02-17-2023 Office outpatient vi sit 25 minutes Vernon Ball [facility] Start: 01-09-2023 End: 01-09-2023 ambulatory Vernon Ball Other [employer] Other Start: 01-09-2023 Telephone encounter Vernon Ball [facility] Start: 12-24-2022 End: 12-24-2022 ambulatory Vernon Ball Other [facility] Other Start: 12-24-2022 Telephone encounter Vernon Ball [facility] Start: 11-26-2022 End: 11-26-2022 ambulatory Vernon Ball Other [facility] Other Start: 11-26-2022 Telephone encounter Vernon Ball [facility] Start: 11-25-2022 End: 11-26-2022 ambulatory VERNON BALL Facility:[facility] Start: 11-18-2022 End: 11-18-2022 ambulatory Vernon Ball Other [facility] Other Start: 11-18-2022 Office outpatient vi sit 25 minutes Vernon Ball [facility] Start: 11-15-2022 End: 11-16-[address] NONE LISTED REQUEST Facility:[facility] Start: 11-07-2022 End: 11-07-2022 ambulatory Vernon Ball Other [facility] Other Start: 11-07-2022 Telephone encounter Vernon Greene [facility] Start: 08-08-2022 End: 08-09-2022 ambulatory VERNON GREENE Facility:[facility] Start: 05-15-2022 End: 05-16-2022 ambulatory VERNON GREENE Facility:[facility] Start: 05-09-2022 End: 05-10-2022 ambulatory NONE LISTED REQUEST Facility:[facility] Procedures Date Procedure Procedure Detail Performing Clinician Start: 12-09-2023 Plain X-ray of bilat eral hands DO Vernon Greene Work Phone: Start: 12-09-2023 X-ray of both knees DO Vernon Greene Work Phone: Start: 07-04-2023 Open reduction of fracture with internal fixation DO Vernon Greene Work Phone: Start: 02-26-2023 Plain X-ray of left elbow DO Erickson Nascimento Work Phone: Start: 05-15-2022 PSA screening VERNON GREENE Comment on above: Performed By: #### [facility] #### [facility] [address] [place] [address] Dr. Ginger Keane Plan of Treatment Date Care Activity Detail Author Start: 11-24-2023 Hemolytic complement CH50 level [facility] Start: 11-24-2023 Hepatitis B core ant ibody measurement [facility] Start: 11-24-2023 [facility] Start: 10-20-2023 Patient referral [facility] Work Phone: Start: 07-04-2023 [facility] 24 hour urine measurement [facility] Adenosine monophosph ate.cyclic [Moles/volume] in Serum or Plasma [facility] Albumin [Mass/volume ] in Serum or Plasma [facility] Albumin/Globulin ratio [facility] Complement C3 [Mass/ volume] in Serum or Plasma [facility] Complement C4 [Mass/ volume] in Serum or Plasma [facility] Comprehensive metabo lic 1999 panel - Serum or Plasma [facility] Comprehensive metabo lic 1999 panel - Serum or Plasma [facility] Electrophoresis: [id number] [facility] Electrophoresis: [id number] [facility] Electrophoresis: beta-globulin [facility] Electrophoresis: gamma globulin [facility] Globulin [Mass/volume] in Serum [facility] Hepatitis B virus elizabeth rface Ab [Presence] in Serum [facility] Hepatitis B virus elizabeth rface Ag [Presence] in Serum or Plasma by Immunoassay [facility] Hepatitis C virus Ig G Ab [Presence] in Serum or Plasma by Immunoassay [facility] Homogenous nuclear A b pattern [Titer] in Serum [facility] IgA [Mass/volume] in Serum or Plasma [facility] IgG [Mass/volume] in Serum or Plasma [facility] IgM [Mass/volume] in Serum or Plasma [facility] Immunofixation for Urine [facility] Pence light chains.f ree [Mass/volume] in Serum [facility] Pence light chains.f ree/Lambda light chains.free [Mass Ratio] in Serum [facility] Lambda light chains. free [Mass/volume] in Serum or Plasma [facility] Measurement of monoc lonal protein concentration [facility] Microalbumin [Mass/volume] in Urine [facility] Myeloperoxidase Ab [ Units/volume] in Serum by Immunoassay [facility] Neutrophil cytoplasm ic Ab.classic [Titer] in Serum by Immunofluorescence [facility] Neutrophil cytoplasm ic Ab.perinuclear.atypical [Titer] in Serum by Immunofluorescence [facility] Nuclear Ab [Titer] in Serum [facility] P-ANCA measurement [facility] Patient referral [facility] Work Phone: Protein [Mass/volume ] in Serum or Plasma [facility] Protein [Mass/volume] in Urine [facility] Proteinase 3 Ab [Uni ts/volume] in Serum by Immunoassay [facility] Rheumatoid factor [U nits/volume] in Serum or Plasma [facility] Serum immunofixation [facility] Immunizations Immunization Date Immunization Notes Care Provider Izabel ernandez 05-25-2018 pneumococcal polysaccharide vaccine, 23 valent Vernon Greene Other [facility] 07-01-2017 diphtheria, tetanus toxoids and acellular pertussis vaccine, unspecified formulation Vernon Greene Other [facility] 07-01-2017 pneumococcal conjuga te vaccine, 13 valent Vernon Greene Other [facility] Payers Date Payer Category Payer Medicare [id number] 2. [id number] 1958 Self-pay 1950 Unknown [id number] 2.16.84 [id number] 1950 Unknown [id number] 2.16.84 [id number] 1950 Unknown [id number] 2.16.84 [id number] 1950 Unknown [id number] 2.16.84 [id number] Unknown [id number] 2.16.84 [id number] Unknown [id number] 2.16.84 [id number] Unknown [id number] 2.16.84 [id number] Unknown [id number] 2.16.8 [id number] Unknown [id number] 2.16.8 [id number] Unknown [id number] 2.16.8 [id number] Unknown [id number] 2.16.8 [id number] Unknown [id number] 2.16.8 [id number] Social History Date Type Detail Facility Sex Assigned At [facility] Other Start: 1950 Sex Assigned At Male F [facility] Start: 07-04-2023 End: 07-04-2023 Tobacco smoking status NHIS Ex-smoker (finding) [facility] Goals Date Patient Goal Desired Activity /State Clinical Notes 11-18-2022 to 10-06-2023 Note Date & Type Note Facility 10-06-2023 Evaluation note Encounter Date Diagnosis Assessment Notes Oct, Interstitial lung disease (ICD-10 - J84.9) Oct, Hypoxia (ICD-10 - R09.02) Oct, Nicotine dependence, cigarettes, in remission (ICD-10 - F17.211) Age started 17 1 ppd Age quit 52 [facility] Other 01-31-2024 Evaluation note* Encounter Date Diagnosis Assessment Notes Treatment Notes Treatment Clinical Notes Sep, Mucopurulent chronic bronchitis (ICD-10 - J41.1) Instructed on deep breathing and cough exercises. Increase activity, avoid prolonged lounging. Hydrate and use Mucolytics to assist in clearing secretions. Continue MAURO every 4 hours as needed Sep, Pneumonia due to Coronavirus disease 2018 (ICD-10 - J12.82) Treated w/ Remdesevir and [...] as needed. CXR, f/u from COVID infection [facility] Other 12-29-2023 Evaluation note* Encounter Date Diagnosis [...] 1 ppd Age quit 52 Continue abstinence [facility] Other 12-12-2023 Evaluation note* Encounter Date Diagnosis [...] and hypoxia. MDI and oxygen for now. [facility] Other 12-01-2023 Evaluation note* Encounter Date Diagnosis Assessment Notes Treatment Notes Treatment Clinical Notes Aug, Weight loss (ICD-10 - R63.4) [facility] Other 11-09-2023 Evaluation note* Encounter Date Diagnosis [...] or bowel habits. No melena or hematochezia [facility] Other 11-01-2023 Evaluation note* Encounter Date Diagnosis Assessment Notes Treatment Notes Treatment Clinical Notes Jul, Left elbow pain (ICD-10 - M25.522) Jul, Olecranon bursitis, left elbow (ICD-10 - M70.22) Mariano returns with left olecranon bursitis and left [...] and we will send to pathology afterwards. Mariano presents with left elbow mass. At this [...] poor healing. 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 I have [...] Jul, Elbow mass, left (ICD-10 - R22.32) [facility] Other 09-19-2023 Evaluation note* Encounter Date Diagnosis [...] PSA (prostate specific antigen) (ICD-10 - Z12.5) [facility] Other 06-28-2023 Evaluation note* Encounter Date Diagnosis Assessment Notes Treatment Notes Treatment Clinical Notes Jan, Left elbow pain (ICD-10 - M25.522) Jan, Olecranon bursitis, left elbow (ICD-10 - M70.22) Mariano presents with left olecranon bursitis. At this [...] move forward with treatment at this time. Mariano presents with mass to the left elbow. [...] as documented in the electronic medical record. [facility] Other 06-19-2023 Evaluation note* Encounter Date Diagnosis [...] wks. Nontender and mobile. Refer to Orthopedics [facility] Other 03-27-2023 NotePROCEDURE: XR [id number] LT 3V [...] Electronically authenticated by: VINNY MURILLO Date: 2022-11-25 10:55[facility]03-20-2023 Evaluation note* Encounter Date Diagnosis Assessment [...] Initiate PPI and if no improvement, EGD [facility] Other Evaluation noteNo [facility] Other Evaluation noteNo assessment information available [facility] Work Phone: evaluation note* Diagnosis Onset Date Resolution Status Inflammatory polyarthritis a cute [facility] Work Phone: evaluation note* Diagnosis Onset Date Resolution Status ASHD (arteriosclerotic heart disease) acute [id number] acute Hypoxia acute ILD (interstitial lung disease) acute Inflammatory polyarthritis a cute Nicotine dependence, cigarettes, in remission acute Sinus tachycardia acute [facility] Work Phone: evaluation note* Diagnosis Onset Date Resolution Status ASHD (arteriosclerotic heart disease) acute Hypoxia acute ILD (interstitial lung disease) acute Inflammatory polyarthritis a cute Nicotine dependence, cigarettes, in remission acute Sinus tachycardia acute ASHD (arteriosclerotic heart disease) acute Hypoxia acute ILD (interstitial lung disease) acute Mucopurulent chronic bronchitis acute Nicotine dependence, cigarettes, in remission acute 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 acute Type 2 diabetes mellitus with hyperglycemia acute [facility] Work Phone: evaluation note* Diagnosis Onset Date Resolution Status ASHD (arteriosclerotic heart disease) acute Hypercholesterolemia acute Hypoxia acute ILD (interstitial lung disease) acute Medicare annual wellness visit, subsequent acute Mucopurulent chronic bronchitis acute Nicotine dependence, cigarettes, in remission acute 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 acute Screening PSA (prostate specific antigen) acute Type 2 diabetes mellitus with hyperglycemia acute [facility] Work Phone: Hisnpkf general Narrative - Reported* Type Description Date [...] use of insulin Surgical History [facility] PTCA/STENT 2002 Surgical History [facility] 2006 Hospitalization History SEE SURGICAL [facility] Other [facility] general Narrative - Reported* Type Description Date [...] use of insulin Surgical History [facility] PTCA/STENT 2002 Surgical History [facility] 2006 Surgical History Excision left elbow mass 3 Hospitalization History SEE SURGICAL [facility] Other Hospital Discharge instructions Additional Instructions Orthopedic [...] prescribed. You may take Motrin or Tylenol [id number] if you wish. Follow-up in [address] [facility] [address] [place] [id number] [phone] Work Phone: Reason for referral (narrative)* Reason *Waiting for appt Referral for recurrent left Olecranon bursa and SC nodule Diagnosis 1 Olecranon bursitis o f left elbow (M70.22) Diagnosis 2 Subcutaneous nodule (R22.9) Referral Organization [facility] [facility] Referring Provider First Name Vernon Referring Provider Last Name Jc Referring Provider Specialty Internal Me diclindsey Referred Organization [facility] Referred Provider Erickson Nascimento Referred Address [address] [facility] [place] Referred Provider Specialty Orthopedic S urgery Referral [...] 02/17/2023 11:21:37 AM >received today, sent P2P [employer] Other Reason for referral (narrative)* Reason Referral for screeni ng colonoscopy and EGD Diagnosis 1 Unexplained weight l oss (R63.4) Diagnosis 2 Epigastric discomfor t (R10.13) Diagnosis 3 Serum lipase elevati on (R74.8) Diagnosis 4 Colon cancer screeni ng (Z12.11) Referral Organization [facility] Referring Provider First Name Vernon Referring Provider Last Name Jc Referring Provider Specialty Internal Tx dicine Referred Organization [facility] Referred Provider Rochelle Woodard Referred Address [address] [place], [place],[address] Referred Provider Specialty Gastroentero logy Referral Priority [...] be done within the next 2-3 wks. [employer] Other Summary Purpose Family History Relationship Condition Age at Onset Recorded Date/T radha Not Specified No pertinent family history Unknown father Malignant neoplasm Unknown Relationship Condition Age at Onset Recorded Date/T radha Not Specified No pertinent family history Unknown father Malignant neoplasm Unknown Not Specified Diabetes mellitus Unknown Relationship Condition Age at Onset Recorded Date/T radha Not Specified No pertinent family history Unknown father Malignant neoplasm Unknown mother Diabetes mellitus Unknown Advance Directives Advance Directive Response Recorded Date/ Time Advance Directives No February 26 4:16pm Advance Directive Response Recorded Date/ Time Advance Directives No February 26 3:16pm Chief Complaint and Reason for Visit Chief Complaint M25.522 Chief Complaint Left Elbow Mass Chief Complaint Tbh 2 Week Follow Up 4 Month Follow Up 1 week Reason for Visit Inflammatory polyart hritis Chief Complaint 2 Week Follow Up 4 Month Follow Up 1 week Reason for Visit ASHD (arteriosclerot ic heart disease) [id number] Hypoxia ILD (interstitial lung disease) Inflammatory polyarthritis Nicotine dependence, cigarettes, in remission Sinus tachycardia Chief Complaint 4 Month Follow Up 1 week M35.9;Z11.59;Z79.899;D89.2 Hand pain Knee Pain Reason for Visit ASHD (arteriosclerot ic heart disease) [id number] Hypoxia ILD (interstitial lung disease) Inflammatory polyarthritis Nicotine dependence, cigarettes, in remission Sinus tachycardia Chief Complaint 1 week M35.9;Z11.59;Z79.899;D89.2 Hand pain Knee Pain Amb Documentation 3 month follow up Reason for Visit ASHD (arteriosclerot ic heart disease) Hypoxia ILD (interstitial lung disease) Inflammatory polyarthritis Nicotine dependence, cigarettes, in remission Sinus tachycardia ASHD (arteriosclerotic heart disease) Hypoxia ILD (interstitial lung disease) Mucopurulent chronic bronchitis Nicotine dependence, cigarettes, in remission Rheumatoid arthritis involving both hands with positive rheumatoid factor Type 2 diabetes mellitus with hyperglycemia Chief Complaint wellness Reason for Visit ASHD (arteriosclerot ic heart disease) Hypercholesterolemia Hypoxia ILD (interstitial lung disease) Medicare annual wellness visit, subsequent Mucopurulent chronic bronchitis Nicotine dependence, cigarettes, in remission Rheumatoid arthritis involving both hands with positive rheumatoid factor Screening PSA (prostate specific antigen) Type 2 diabetes mellitus with hyperglycemia Additional Source Comments REASON FOR VISIT (unrecogniz ed section and content) prescription refillFOLLOW UP Xray resultsmessageomeprazoleCheck UpLeft Elbow Painortho referral updatewellnessLab ResultsRecheck Left ElbowNo InformationER follow upCT/labsER follow upOrdersMAIL PPWNo InformationCT/lab resultsTCMBS readingsTBH2 week follow upRefillGASTRO UPDATE4 month Follow upNo InformationEKG resultslab resultsNo Information (unrecognized sect ion and content) No Status Records FoundNo Status Records FoundNo Status Records Found INFORMATION SOURCE (unrecogn ized section and content) DATE CREATED AUTHOR 12/02/2022 [facility] DATE CREATED AUTHOR AUTHOR'S ORGANIZ ATION 01/10/2024 [facility] DATE CREATED AUTHOR AUTHOR'S ORGANIZ ATION 05/23/2024 [facility] EPIC Care Teams (unrecognized sec tion and content) Team Status: Active Member Role Status Dates Vernon Greene DO Primary Care Provider Active Team Status: Active Member Role Status Kinga Greene DO Primary Care Provide r, Attending Provider Active Start: October 14, 2023 Team Status: Inactive Member Role Status Kinga Greene DO Primary Care Provide r, Attending Provider Active Start: October 20, 2023 End: October 20, 2023 Team Status: Active Member Role Status Kinga Greene DO Primary Care Provide r, Attending Provider Active Start: October 28, 2023 Team Status: Inactive Member Role Status Kinga Greene DO Primary Care Provider Active Start: November 24, 2023 End: November 24, 2023 Carlos Guzmán MD Attending Provider Active St art: November 24, 2023 End: November 24, 2023 Team Status: Inactive Member Role Status Kinga Greene DO Primary Care Provider Active Start: December 09, 2023 End: December 09, 2023 Carlos Guzmán MD Attending Provider Active St art: December 09, 2023 End: December 09, 2023 Team Status: Active Member Role Status Dates Vernon Greene DO Primary Care Provider Active Start: December 22, 2023 SHONDA Gottlieb Attending Provider Active Start : December 22, 2023 Team Status: Active Member Role Status Kinga Greene DO Primary Care Provide r, Attending Provider Active Start: December 29, 2023 Team Status: Inactive Member Role Status Kinga Greene DO Primary Care Provide r, Attending Provider Active Start: December 30, 2023 End: December 30, 2023 Team Status: Inactive Member Role Status Dates Erickson Nascimento , DO Attending Provider Active Team Status: Inactive Member Role Status Dates Erickson Nascimento , DO Attending Provider Active Vernon Greene , DO Primary Care Provider Active Team Status: Inactive Member Role Status Dates Vernon Greene , DO Attending Provider Active Sta rt: August 12, 2023 End: August 12, 2023 Team Status: Inactive Member Role Status Dates Vernon Greene , DO Attending Provider Active Sta rt: August 29, 2023 End: August 29, 2023 Team Status: Inactive Member Role Status Dates Vernon Greene , DO Attending Provider Active Sta rt: October 01, 2023 End: October 01, 2023 Team Status: Active Member Role Status Dates Vernon Greene , Primary Care Provider Active Start: March 11, 2024 Carlos Guzmán MD Attending Provider Active St art: March 11, 2024 Team Status: Inactive Member Role Status Dates Vernon Greene , Primary Care Provide r, Attending Provider Active Start: May 26, 2024 End: May 26, 2024 Goals (unrecognized section and content) Goals may [...] BE BASED ON THE PRIMARY CLINICAL RECORDS. [facility] [employer] [facility]. provides no warranty or guarantee of the accuracy or completeness of information in this document.
== END 2024-07-01 13:08 | disposition home or self-care (01) ==
LOC: LAB 13:12
PROVIDERS: PCP Internal Medicine; Visit Provider Internal Medicine Rheumatology
DX: M05.79 Rheumatoid arthritis with rheumatoid factor of multiple sites without organ or systems involvement (principal)
CPT/HCPCS: 36415; 85025

== ENCOUNTER 2024-07-08 13:42 | Outpatient (OUT) | payer MEDICARE, SELFPAY ==
[2024-07-08 14:13] LABS: Basophils Percent Auto 0.4 % (0.2-2.0); Eosinophils Absolute Auto 0.1 10^3/uL (0.0-0.7); Eosinophils Percent Auto 1.4 % (0.9-7.0); Hematocrit 41.1 % (42.0-54.0); Hemoglobin 14.2 g/dL (14.0-18.0); Immature Granulocytes Abs Auto 0.02 10^3/uL (0.00-0.03); Immature Granulocytes Pct Auto 0.2 % (0.0-0.5); Lymphocytes Absolute Auto 2.1 10^3/uL (1.2-3.8); Lymphocytes Percent Auto 23.1 % (20.5-60.0); Mean Corpuscular HGB Conc 34.5 g/dL (29.9-35.2); Mean Corpuscular Hemoglobin 32.4 pg (25.9-34.0); Mean Corpuscular Volume 93.8 fL (80.0-94.0); Mean Platelet Volume 9.6 fL (9.5-13.5); Monocytes Absolute Auto 0.6 10^3/uL (0.3-0.8); Monocytes Percent Auto 6.9 % (1.7-12.0); Neutrophils Absolute Auto 6.3 10^3/uL (1.4-6.5); Platelet Count 260 10^3/uL (150-450); Red Blood Count 4.38 10^6/uL (4.70-6.10); Red Cell Distribution Width 13.6 % (11.0-15.0); White Blood Count 9.3 10^3/uL (4.0-11.0)
[2024-07-08 14:47] LABS: Erythrocyte Sedimentation Rate 20 mm/hr (<=20)
[2024-07-08 14:51] LABS: Alanine Aminotransferase 22 U/L (16-63); Albumin Level 3.5 g/dL (3.4-5.0); Alkaline Phosphatase 81 U/L (46-116); Aspartate Amino Transferase 9 U/L (15-37); Bilirubin Total 0.7 mg/dL (0.2-1.0); Estimated GFR (African America >60 (>=60 mL/min/1.73m^2); Estimated GFR (Non-African Ame 59 (>=60 mL/min/1.73m^2)
[2024-07-08 14:52] LABS: C Reactive Protein <0.50 mg/dL (<=0.50)
[2024-07-08 15:29] LABS: Bilirubin Urine NEGATIVE (NEGATIVE); Blood Urine NEGATIVE (NEGATIVE); Clarity Urine CLEAR (CLEAR); Color Urine LT. YELLOW (YELLOW); Glucose Urine UA >=1000 mg/dL (NEGATIVE); Ketones Urine TRACE mg/dL (NEGATIVE); Leukocyte Esterase Urine NEGATIVE (NEGATIVE); Nitrite Urine NEGATIVE (NEGATIVE); Protein Urine 30 mg/dL (NEG/TRACE); Specific Gravity Urine 1.025 (1.005-1.025); Urobilinogen Urine 0.2 EU/dL (0.2-1.0); pH Urine 5.5 (5.0-9.0)
[2024-07-08 16:21] LABS: Amorphous Sediment Urine RARE; Bacteria Urine NONE SEEN #/HPF (NONE SEEN); Cast Seen? NONE SEEN #/LPF (NONE SEEN); Crystals Seen? Seen #/HPF (None Seen); Mucus Urine NONE SEEN (NONE SEEN); RBC Urine NONE SEEN #/HPF (0-2); Squamous Epithelial Cell Urine NONE SEEN #/LPF (NONE/RARE); WBC Urine NONE SEEN #/HPF (NONE SEEN)
== END 2024-07-08 13:43 | disposition home or self-care (01) ==
LOC: LAB 13:42
PROVIDERS: PCP Internal Medicine; Visit Provider Internal Medicine Rheumatology
DX: M05.79 Rheumatoid arthritis with rheumatoid factor of multiple sites without organ or systems involvement (principal); Z79.899 Other long term (current) drug therapy; M35.9 Systemic involvement of connective tissue, unspecified
CPT/HCPCS: 36415; 81001; 82042; 82247; 82565; 84075; 84450; 84460; 85025; 85652; 86140

== ENCOUNTER 2024-07-15 13:48 | Outpatient (OUT) | payer MEDICARE, SELFPAY ==
--- OUTSIDE RECORDS SUMMARY | 2024-07-15 14:09 | XMS_ITS | CCD ---
Author Organization [facility] CliniSywy Care Team Providers Care Asp Web Developer Name Role Phone Vernon Greene Unavailable VERNON GREENE Admitting Unavailable JC, VERNON Attending Unavailable JC, VERNON Primary Care Unavailable BALL, VERNON Consulting Unavailable ZIEBER, DR VINNY Evans Consulting Unavailable JC, VERNON [...] Nascimento Unavailable DO Erickson Nascimento Attending Provider [phone] DO Vernon Greene Primary Care Provider Navneet Puga Unavailable Asaad, Imad Unavailable DO Vernon Greene Primary Care Provider MD Carlos Guzmán Attending Provider Carlos Guzmán Admitting Unavailable Carlos Guzmán Attending [...] SUGAR ONCE EVERY DAY for 90 Active [id number] 200 actuat albuterol 0.09 mg/actuat metered dose [...] 12:00am Start: 11-18-[address] 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 0 [facility] QuantiFERON TB Goldon 2023 QFTB Criteria Normal . [facility] Comment on above: Result Comment: [...] TB Ag Value 0.02 Normal . [facility] Comment on above: Performed By: #### Q UANT TB ####[facility] , Quant TB Gold Plus Negative Normal Negative [facility] Comment on above: Result Comment: [...] interferon gamma. Chemiluminescence immunoassay methodology Performed at: [facility] [address] [id number] Asphalt Blender: Krunal Nichols PhD, Phone: [phone] PERFORMED BY: [place] [address] PATHOLOGIST WASH BOX OPERATOR ADELFO RAMIREZ M.D. Performed By: #### Q UANT TB ####[facility] , Quant TB2 Ag Value 0.02 Normal . [facility] Comment on above: Performed By: #### Q UANT TB ####[facility] , Quantiferon Nil Value 0.02 Normal . [facility] Comment on above: Performed By: #### Q UANT TB ####[facility] , Quantiferon TB Mitogen >10.00 Normal . [facility] e [facility] Comment on above: Performed By: #### Q UANT TB ####[facility] , Glucose mean value [Mass/vol ume] in Blood Estimated from glycated hemoglobinon 12-29-2023 Average glucose Estimated from glycated hemoglobin (Bld) [Mass/Vol] 134 mg/dL [facility] - Hematology and Cell countson 12-29-2023 HbA1c (Bld) [Mass fraction] 6.3 % 4.5-6.2 [facility] Comment on above: ADA RECOMMENDED LIMI T 4.0 - 6.0ADA THERAPEUTIC TARGET < 7.0ACTION SUGGESTED> 7.0 XR knee BI 2Von 12-09-2023 XR knee BI 2V [facility] [address] [place] [id number] XRay Report Signed Patient: Mariano Gutierrez MR#: [id number] : 1950 Acct:[id number] Age/Sex: 73 / M ADM Date: 12/09/23 Loc: ICXD Room: Type: [facility] Attending Dr: Carlos Guzmán MD Copies to: Carlos Guzmán MD Ordering Provider: Carlos Guzmán MD Date of Service: 12/09/23 XR/XR hand BI 2V: HAND PAIN ([id number]) XR/XR knee BI 2V: KNEE PAIN 2 [...] Gregory Schmidt M.D.12/09/2023 4:00 PM Dictation Location: [place] [address] Transcribed By: [facility] 12/09/23 1600 Dictated By: Gregory Schmidt DO 12/09/23 1556 Signed By: 12/09/23 1600 Normal [facility] VANESSA Antinuclear Antibodieson 11-24-2023 Antinuclear Abs, IFA Positive Critically abnormal . [facility] Comment on above: Result Comment: Nega tive <1:80 Borderline 1:80 Positive >1:80 Performed By: #### K APPA, ANCA PROF, C4, CH50, HBSAB, HBCAB, C3, HCV RX PCR, HBSAG, VANESSA ####[facility] , Homogeneous Pattern 1:640 High . [facility] Comment on above: Result Comment: ICAP nomenclature: [id number] Performed By: #### K APPA, ANCA PROF, C4, CH50, HBSAB, HBCAB, C3, HCV RX PCR, HBSAG, VANESSA ####[facility] , Note 1 Normal . [facility] Comment on above: Result Comment: Prashant bhupendra Potential Disease Association Homogeneous Systemic Lupus Erythematosus, Drug Induced Systemic Lupus Erythematosus, Chronic Autoimmune hepatitis, Juvenile Idiopathic Arthritis Speckled Sjogren Syndrome, Systemic Lupus Erythematosus, Subacute Cutaneous Lupus, Lupus, Congenital Heart Block, Mixed Connective Tissue Disease, Scleroderma-diffuse, Scleroderma-Autoimmune Myositis Overlap Syndrome, Systemic Lupus Xgndjswriwjhf-Yosmhppipcy-Tfuuuunkto Myositis Overlap Syndrome, Systemic Autoimmune Rheumatic Disease, [...] Cytopenias, Linear Scleroderma, Antiphospholipid Syndrome Performed at: [address] [id number] Asphalt Blender: Krunal Nichols PhD, Phone: [phone] Performed By: #### K APPA, ANCA PROF, C4, CH50, HBSAB, HBCAB, C3, HCV RX PCR, HBSAG, VANESSA ####[facility] , ANCA Profile (ANCA+MPO+PR3)o n 11-24-2023 Antimyeloperoxidase (MPO) Abs 1.8 High 0.0-0.9 [facility] Comment on above: Performed By: #### K APPA, ANCA PROF, C4, CH50, HBSAB, HBCAB, C3, HCV RX PCR, HBSAG, VANESSA ####[facility] , Atypical pANCA <1:20 Normal Neg:<1:20 [facility] Comment on above: Result Comment: The atypical pANCA pattern has been observed in a significant percentage of patients with ulcerative colitis, primary sclerosing cholangitis and autoimmune hepatitis. Performed at: [address] [id number] Asphalt Blender: Blanca Olmedo MD, Phone: [phone] Performed at: [address] [id number] Asphalt Blender: Krunal Nichols PhD, Phone: [phone] Performed By: #### K APPA, ANCA PROF, C4, CH50, HBSAB, HBCAB, C3, HCV RX PCR, HBSAG, VANESSA ####[facility] , Cytoplasmic (C-ANCA) <1:20 Normal Neg:<1:20 [facility] Comment on above: Performed By: #### K APPA, ANCA PROF, C4, CH50, HBSAB, HBCAB, C3, HCV RX PCR, HBSAG, VANESSA ####[facility] , Perinuclear (P-ANCA) <1:20 Normal Neg:<1:20 [facility] Comment on above: Result Comment: The presence of positive fluorescence exhibiting P-ANCA or C-ANCA patterns alone is not specific for the diagnosis of Staci's Granulomatosis (WG) or microscopic polyangiitis. Decisions about treatment should not be based solely on ANCA IFA results. The International ANCA Group Consensus recommends follow up testing of positive sera with both DC- 3 and MPO-ANCA enzyme immunoassays. As many as 5% serum samples are positive only by EIA. Ref. AM J Clin Pathol 1999;111:507-513. Performed By: #### K APPA, ANCA PROF, C4, CH50, HBSAB, HBCAB, C3, HCV RX PCR, HBSAG, VANESSA ####[facility] , Proteinase 3 (PR3) Antibodies <0.2 Normal 0.0-0.9 [facility] Comment on above: Result Comment: PERF ORMED BY: [facility] [address] [place] [address] PATHOLOGIST WASH BOX OPERATOR ADELFO RAMIREZ M.D. Performed By: #### K APPA, ANCA PROF, C4, CH50, HBSAB, HBCAB, C3, HCV RX PCR, HBSAG, VANESSA ####[facility] , Alanine aminotransferase [En zymatic activity/volume] in Serum or PlasmaOrdered By: Carlos Guzmán on 11-24-2023 ALT [Catalytic activity/Vol] 11 U/L [facility] Albumin [Mass/volume] in Ser um or PlasmaOrdered By: Carlos Guzmán on 11-24-2023 Albumin [Mass/Vol] 3.5 g/dL 2.9-4.4 [facility] Albumin [Mass/volume] in Ser um or Plasma by Bromocresol green (BCG) dye binding methoOrdered By: Carlos Guzmán on 11-24-2023 Albumin BCG dye [Mass/Vol] 3.8 g/dL 3.5-5.7 [facility] Albumin/Protein.total in 24 hour Urine by ElectrophoresisOrdered By: Carlos Guzmán on 11-24-2023 Albumin Elph (24H U) [Mass fraction] 50.7 % . [facility] Alkaline phosphatase [Enzyma tic activity/volume] in Serum or PlasmaOrdered By: Carlos Guzmán on 11-24-2023 ALP [Catalytic activity/Vol] 98 U/L 34-104 [facility] Aspartate aminotransferase [ Enzymatic activity/volume] in Serum or PlasmaOrdered By: Carlos Guzmán on 11-24-2023 AST [Catalytic activity/Vol] 15 U/L 13-39 [facility] Automated erythrocytes count in urine sediment (number/area)Ordered By: Carlos Guzmán on 11-24-2023 RBC Auto (Urine sed) [#/Area] None seen [HPF] 0-4 [facility] Automated leukocytes count i n urine sediment (number/area)Ordered By: Carlos Guzmán on 11-24-2023 WBC Auto (Urine sed) [#/Area] 0-1 [HPF] 0-4 [facility] Basophils Auto (Bld) [#/Vol] Ordered By: Carlos Guzmán on 11-24-2023 Basophils (Bld) [#/Vol] 0.1 10*3/uL 0.0-0.2 [facility] Basophils/100 WBC Auto (Bld) Ordered By: Carlos Guzmán on 11-24-2023 Basophils/100 WBC (Bld) 1.1 % . [facility] Bilirubin Test strip Ql (U)O rdered By: Carlos Guzmán on 11-24-2023 Bilirubin Ql (U) Negative Negative [facility] Bilirubin.total [Mass/volume ] in Serum or PlasmaOrdered By: Carlos Guzmán on 11-24-2023 Bilirubin [Mass/Vol] 0.6 mg/dL 0.3-1.0 [facility] C reactive protein [Mass/vol ume] in Serum or PlasmaOrdered By: Carlos Guzmán on 11-24-2023 CRP [Mass/Vol] 0.6 mg/dL 0.0-0.5 [facility] C-Reactive Proteinon 024 C-Reactive Protein 0.6 mg/dL High 0.0-0.5 [facility] Comment on above: Result Comment: PERF ORMED BY: [facility] [address] [place] [address] PATHOLOGIST WASH BOX OPERATOR ADELFO RAMIREZ M.D. Performed By: #### I FE,URINE, SVETLANA SERUM, UPE RAND, SPE #### [facility] , #### ESR, ADDONUAPLUS, CRP, CBC, CMP #### [facility] [address] Calcium [Mass/volume] in Ser um or PlasmaOrdered By: Carlos Guzmán on 11-24-2023 Calcium [Mass/Vol] 9.4 mg/dL 8.6-10.3 [facility] Carbon dioxide, total [Moles /volume] in Serum or PlasmaOrdered By: Carlos Guzmán on 11-24-2023 CO2 [Moles/Vol] 28.5 mmol/L 21.0-31.0 [facility] Chloride [Moles/volume] in S lucila or PlasmaOrdered By: Carlos Guzmán on 11-24-2023 Chloride [Moles/Vol] 99 mmol/L 98-107 [facility] Color Auto (U)Ordered By: Elvia Guzmán on 11-24-2023 Color (U) Yellow Yellow [facility] Complement C3on 11-24-2023 Complement C3 135 mg/dL Normal 82-167 [facility] Comment on above: Result Comment: Perf ormed at: - [facility] [address] [id number] Asphalt Blender: Krunal Nichols PhD, Phone: [phone] Performed By: #### K APPA, ANCA PROF, C4, CH50, HBSAB, HBCAB, C3, HCV RX PCR, HBSAG, VANESSA ####[facility] , Complement C4on 11-24-2023 Complement C4 10 mg/dL Low 12-38 [facility] Comment on above: Performed By: #### K APPA, ANCA PROF, C4, CH50, HBSAB, HBCAB, C3, HCV RX PCR, HBSAG, VANESSA ####[facility] , Complement Total (CH50)on Complement Total (CH50) 51 Normal >41 [facility] Comment on above: Result Comment: [...] of range values. Performed at: - [facility] [address] [id number] Asphalt Blender: Krunal Nichols PhD, Phone: [phone] PERFORMED BY: [place] [address] PATHOLOGIST WASH BOX OPERATOR ADELFO RAMIREZ M.D. Performed By: #### K APPA, ANCA PROF, C4, CH50, HBSAB, HBCAB, C3, HCV RX PCR, HBSAG, VANESSA ####[facility] , Complete Blood Count Auto Di ffon 11-24-2023 Basophils (Bld) [#/Vol] 0.1 10*3/uL Normal 0.0-0.2 [facility] Comment on above: Performed By: #### I FE,URINE, SVETLANA SERUM, UPE RAND, SPE #### [facility] , #### ESR, ADDONUAPLUS, CRP, CBC, CMP #### [facility] [address] [place] [address] Basophils/100 WBC (Bld) 1.1 % Normal . [facility] Comment on above: Performed By: #### I FE,URINE, SVETLANA SERUM, UPE RAND, SPE #### [facility] , #### ESR, ADDONUAPLUS, CRP, CBC, CMP #### [facility] [address] [place] [address] Eosinophils (Bld) [#/Vol] 0.2 10*3/uL Normal 0.0-0.45 [facility] Comment on above: Performed By: #### I FE,URINE, SVETLANA SERUM, UPE RAND, SPE #### [facility] , #### ESR, ADDONUAPLUS, CRP, CBC, CMP #### [address] Eosinophils/100 WBC (Bld) 2.0 % Normal . [facility] Comment on above: Performed By: #### I FE,URINE, SVETLANA SERUM, UPE RAND, SPE #### [facility] , #### ESR, ADDONUAPLUS, CRP, CBC, CMP #### [address] Erythrocyte distribution width (RBC) [Ratio] 15.0 % High 12.0-14.8 [facility] Comment on above: Performed By: #### I FE,URINE, SVETLANA SERUM, UPE RAND, SPE #### [facility] , #### ESR, ADDONUAPLUS, CRP, CBC, CMP #### [address] Hematocrit (Bld) [Volume fraction] 38.8 % Normal 38.8-50.0 [facility] Comment on above: Performed By: #### I FE,URINE, SVETLANA SERUM, UPE RAND, SPE #### [facility] , #### ESR, ADDONUAPLUS, CRP, CBC, CMP #### [address] Hemoglobin (Bld) [Mass/Vol] 13.3 g/dL Normal 13.0-17. 0 [facility] Comment on above: Performed By: #### I FE,URINE, SVETLANA SERUM, UPE RAND, SPE #### [facility] , #### ESR, ADDONUAPLUS, CRP, CBC, CMP #### [address] Lymphocytes (Bld) [#/Vol] 2.5 10*3/uL Normal 1.00-4.8 [facility] Comment on above: Performed By: #### I FE,URINE, SVETLANA SERUM, UPE RAND, SPE #### [facility] , #### ESR, ADDONUAPLUS, CRP, CBC, CMP #### [address] Lymphocytes/100 WBC (Bld) 28.6 % Normal . [facility] Comment on above: Performed By: #### I FE,URINE, SVETLANA SERUM, UPE RAND, SPE #### [facility] , #### ESR, ADDONUAPLUS, CRP, CBC, CMP #### [address] MCH (RBC) [Entitic mass] 30.0 pg Normal 27.5-35.2 [facility] Comment on above: Performed By: #### I FE,URINE, SVETLANA SERUM, UPE RAND, SPE #### [facility] , #### ESR, ADDONUAPLUS, CRP, CBC, CMP #### [address] MCV (RBC) [Entitic vol] 87.1 fL Normal 83.5-101 [facility] Comment on above: Performed By: #### I FE,URINE, SVETLANA SERUM, UPE RAND, SPE #### [facility] , #### ESR, ADDONUAPLUS, CRP, CBC, CMP #### [address] Mean Corpuscular HGB Conc 34.4 g/dL Normal 32.5-35.6 [facility] Comment on above: Performed By: #### I FE,URINE, SVETLANA SERUM, UPE RAND, SPE #### [facility] , #### ESR, ADDONUAPLUS, CRP, CBC, CMP #### [address] Monocytes (Bld) [#/Vol] 0.7 10*3/uL Normal 0.0-0.8 [facility] Comment on above: Performed By: #### I FE,URINE, SVETLANA SERUM, UPE RAND, SPE #### [facility] , #### ESR, ADDONUAPLUS, CRP, CBC, CMP #### [address] Monocytes/100 WBC (Bld) 7.8 % Normal . [facility] Comment on above: Performed By: #### I FE,URINE, SVETLANA SERUM, UPE RAND, SPE #### [facility] , #### ESR, ADDONUAPLUS, CRP, CBC, CMP #### [address] Neutrophils (Bld) [#/Vol] 5.4 10*3/uL Normal 1.8-7.7 [facility] Comment on above: Performed By: #### I FE,URINE, SVETLANA SERUM, UPE RAND, SPE #### [facility] , #### ESR, ADDONUAPLUS, CRP, CBC, CMP #### [address] Neutrophils/100 WBC (Bld) 60.5 % Normal . [facility] Comment on above: Performed By: #### I FE,URINE, SVETLANA SERUM, UPE RAND, SPE #### [facility] , #### ESR, ADDONUAPLUS, CRP, CBC, CMP #### [place] [address] [place] NRBC% 0.0 /100{WBC} Normal 0-0.5 [facility] Comment on above: Performed By: #### I FE,URINE, SVETLANA SERUM, UPE RAND, SPE #### [facility] , #### ESR, ADDONUAPLUS, CRP, CBC, CMP #### [address] Platelet mean volume (Bld) [Entitic vol] 7.9 fL Normal 6.6-10.1 [facility] Comment on above: Performed By: #### I FE,URINE, SVETLANA SERUM, UPE RAND, SPE #### [facility] , #### ESR, ADDONUAPLUS, CRP, CBC, CMP #### [address] Platelets (Bld) [#/Vol] 369 10*3/uL Normal 150-450 [facility] Comment on above: Performed By: #### I FE,URINE, SVETLANA SERUM, UPE RAND, SPE #### [facility] , #### ESR, ADDONUAPLUS, CRP, CBC, CMP #### [address] RBC (Bld) [#/Vol] 4.45 10*6/uL Normal 3.90-5.60 [facility] Comment on above: Performed By: #### I FE,URINE, SVETLANA SERUM, UPE RAND, SPE #### [facility] , #### ESR, ADDONUAPLUS, CRP, CBC, CMP #### [address] WBC (Bld) [#/Vol] 8.9 10*3/uL Normal 4.1-10.5 [facility] Comment on above: Performed By: #### I FE,URINE, SVETLANA SERUM, UPE RAND, SPE #### [facility] , #### ESR, ADDONUAPLUS, CRP, CBC, CMP #### [facility] [address] [place] [address] Comprehensive Metabolic Pane eduard 11-24-2023 Albumin [Mass/Vol] 3.8 g/dL Normal 3.5-5.7 [facility] Comment on above: Performed By: #### I FE,URINE, SVETLANA SERUM, UPE RAND, SPE #### [facility] , #### ESR, ADDONUAPLUS, CRP, CBC, CMP #### [address] Albumin/Globulin [Mass ratio] 0.9 {ratio} Normal [facility] Comment on above: Performed By: #### I FE,URINE, SVETLANA SERUM, UPE RAND, SPE #### [facility] , #### ESR, ADDONUAPLUS, CRP, CBC, CMP #### [address] ALP [Catalytic activity/Vol] 98 U/L Normal 34-104 [facility] Comment on above: Performed By: #### I FE,URINE, SVETLANA SERUM, UPE RAND, SPE #### [facility] , #### ESR, ADDONUAPLUS, CRP, CBC, CMP #### [address] ALT [Catalytic activity/Vol] 11 U/L Normal 7-52 [facility] Comment on above: Performed By: #### I FE,URINE, SVETLANA SERUM, UPE RAND, SPE #### [facility] , #### ESR, ADDONUAPLUS, CRP, CBC, CMP #### [address] Anion gap [Moles/Vol] 14.8 mmol/L Normal 6.0-15.[address] [facility] Comment on above: Performed By: #### I FE,URINE, SVETLANA SERUM, UPE RAND, SPE #### [facility] , #### ESR, ADDONUAPLUS, CRP, CBC, CMP #### [address] AST [Catalytic activity/Vol] 15 U/L Normal 13-39 [facility] Comment on above: Performed By: #### I FE,URINE, SVETLANA SERUM, UPE RAND, SPE #### [facility] , #### ESR, ADDONUAPLUS, CRP, CBC, CMP #### [facility] [address] Bilirubin [Mass/Vol] 0.6 mg/dL Normal 0.3-1.0 [facility] Comment on above: Performed By: #### I FE,URINE, SVETLANA SERUM, UPE RAND, SPE #### [facility] , #### ESR, ADDONUAPLUS, CRP, CBC, CMP #### [address] Calcium [Mass/Vol] 9.4 mg/dL Normal 8.6-10.3 [facility] Comment on above: Performed By: #### I FE,URINE, SVETLANA SERUM, UPE RAND, SPE #### [facility] , #### ESR, ADDONUAPLUS, CRP, CBC, CMP #### [address] Chloride [Moles/Vol] 99 mmol/L Normal 98-107 [facility] Comment on above: Performed By: #### I FE,URINE, SVETLANA SERUM, UPE RAND, SPE #### [facility] , #### ESR, ADDONUAPLUS, CRP, CBC, CMP #### [address] CO2 [Moles/Vol] 28.5 mmol/L Normal 21.0-31.0 [facility] Comment on above: Performed By: #### I FE,URINE, SVETLANA SERUM, UPE RAND, SPE #### [facility] , #### ESR, ADDONUAPLUS, CRP, CBC, CMP #### [address] Creatinine [Mass/Vol] 0.73 mg/dL Normal 0.70-1.30 [facility] Comment on above: Performed By: #### I FE,URINE, SVETLANA SERUM, UPE RAND, SPE #### [facility] , #### ESR, ADDONUAPLUS, CRP, CBC, CMP #### [address] GFR/1.73 sq M.predicted MDRD (S/P/Bld) [Vol rate/Area] mL/min/{1.73_m2} Normal [facility] Comment on above: Performed By: #### I FE,URINE, SVETLANA SERUM, UPE RAND, SPE #### [facility] , #### ESR, ADDONUAPLUS, CRP, CBC, CMP #### [address] Globulin (S) [Mass/Vol] 4.4 g/dL High 2.2-3.9 [facility] Comment on above: Performed By: #### I FE,URINE, SVETLANA SERUM, UPE RAND, SPE #### [facility] , #### ESR, ADDONUAPLUS, CRP, CBC, CMP #### [address] Glucose [Mass/Vol] 105 mg/dL High 70-100 [facility] Comment on above: Result Comment: [facility] Glucose Reference Range is dependent on time and content of last meal. Glucose of more than 200 mg/dL in a nonstressed, ambulatory subject supports the diagnosis of Diabetes Mellitus. ADA recommended reference range Performed By: #### I FE,URINE, SVETLANA SERUM, UPE RAND, SPE #### [facility] , #### ESR, ADDONUAPLUS, CRP, CBC, CMP #### [address] Potassium [Moles/Vol] 4.3 mmol/L Normal 3.5-5.1 [facility] Comment on above: Performed By: #### I FE,URINE, SVETLANA SERUM, UPE RAND, SPE #### [facility] , #### ESR, ADDONUAPLUS, CRP, CBC, CMP #### [address] Protein [Mass/Vol] 8.2 g/dL Normal 6.4-8.9 [facility] Comment on above: Performed By: #### I FE,URINE, SVETLANA SERUM, UPE RAND, SPE #### [facility] , #### ESR, ADDONUAPLUS, CRP, CBC, CMP #### [facility] [address] Sodium [Moles/Vol] 138 mmol/L Normal 136-145 [facility] Comment on above: Performed By: #### I FE,URINE, SVETLANA SERUM, UPE RAND, SPE #### [facility] , #### ESR, ADDONUAPLUS, CRP, CBC, CMP #### [facility] [address] [place] [address] Urea nitrogen [Mass/Vol] 15 mg/dL Normal 7-25 [facility] Comment on above: Performed By: #### I FE,URINE, SVETLANA SERUM, UPE RAND, SPE #### [facility] , #### ESR, ADDONUAPLUS, CRP, CBC, CMP #### [facility] [address] [place] [address] Creatinine [Mass/volume] in Serum or PlasmaOrdered By: Carlos Guzmán on 11-24-2023 Creatinine [Mass/Vol] 0.73 mg/dL 0.70-1.30 [facility] Dipstick and Microscopicon 0 11-24-2023 Appearance (U) Clear Normal Clear [facility] Comment on above: Order Comment: Name Collection Type:: Clean-Voided Midstream Performed By: #### I FE,URINE, SVETLANA SERUM, UPE RAND, SPE #### [facility] , #### ESR, ADDONUAPLUS, CRP, CBC, CMP #### [facility] [address] [place] [address] [place] Bacteria,Urine None Seen Normal None Seen [facility] Comment on above: Order Comment: Name Collection Type:: Clean-Voided Midstream Performed By: #### I FE,URINE, SVETLANA SERUM, UPE RAND, SPE #### [facility] , #### ESR, ADDONUAPLUS, CRP, CBC, CMP #### [address] Bilirubin,Urine Negative Normal Negative [facility] Comment on above: Order Comment: Name Collection Type:: Clean-Voided Midstream Performed By: #### I FE,URINE, SVETLANA SERUM, UPE RAND, SPE #### [facility] , #### ESR, ADDONUAPLUS, CRP, CBC, CMP #### [address] Color (U) Yellow Normal Yellow [facility] Comment on above: Order Comment: Name Collection Type:: Clean-Voided Midstream Performed By: #### I FE,URINE, SVETLANA SERUM, UPE RAND, SPE #### [facility] , #### ESR, ADDONUAPLUS, CRP, CBC, CMP #### [address] Glucose Ql (U) >=1000 High Normal [facility] Comment on above: Order Comment: Name Collection Type:: Clean-Voided Midstream Performed By: #### I FE,URINE, SVETLANA SERUM, UPE RAND, SPE #### [facility] , #### ESR, ADDONUAPLUS, CRP, CBC, CMP #### [address] Hyaline Casts,Urine 0-8 Normal 0-8 [facility] Comment on above: Order Comment: Name Collection Type:: Clean-Voided Midstream Result Comment: PERF ORMED BY: [place] [address] PATHOLOGIST WASH BOX OPERATOR ADELFO RAMIREZ M.D. Performed By: #### I FE,URINE, SVTELANA SERUM, UPE RAND, SPE #### [facility] , #### ESR, ADDONUAPLUS, CRP, CBC, CMP #### [address] Ketones Ql (U) Trace High Negative [facility] Comment on above: Order Comment: Name Collection Type:: Clean-Voided Midstream Performed By: #### I FE,URINE, SVETLANA SERUM, UPE RAND, SPE #### [facility] , #### ESR, ADDONUAPLUS, CRP, CBC, CMP #### [address] [address] Leukocyte esterase Test strip Ql (U) Negative Normal Negative [facility] Comment on above: Order Comment: Name Collection Type:: Clean-Voided Midstream Performed By: #### I FE,URINE, SVETLANA SERUM, UPE RAND, SPE #### [facility] , #### ESR, ADDONUAPLUS, CRP, CBC, CMP #### [address] Nitrite,Urine Negative Normal Negative [facility] Comment on above: Order Comment: Name Collection Type:: Clean-Voided Midstream Performed By: #### I FE,URINE, SVETLANA SERUM, UPE RAND, SPE #### [facility] , #### ESR, ADDONUAPLUS, CRP, CBC, CMP #### [facility] [address] [place] [address] Occult Blood,Urine Negative Normal Negative [facility] Comment on above: Order Comment: Name Collection Type:: Clean-Voided Midstream Performed By: #### I FE,URINE, SVETLANA SERUM, UPE RAND, SPE #### [facility] , #### ESR, ADDONUAPLUS, CRP, CBC, CMP #### [facility] [address] [place] [address] [place] pH (U) 5.0 [pH] Normal 5.0-9.0 [facility] Comment on above: Order Comment: Name Collection Type:: Clean-Voided Midstream Performed By: #### I FE,URINE, SVETLANA SERUM, UPE RAND, SPE #### [facility] , #### ESR, ADDONUAPLUS, CRP, CBC, CMP #### [address] Protein (U) [Mass/Vol] 30 mg/dL High Negative Th e [facility] Comment on above: Order Comment: Name Collection Type:: Clean-Voided Midstream Performed By: #### I FE,URINE, SVETLANA SERUM, UPE RAND, SPE #### [facility] , #### ESR, ADDONUAPLUS, CRP, CBC, CMP #### [address] RBC,Urine None Seen Normal 0-4 [facility] Comment on above: Order Comment: Name Collection Type:: Clean-Voided Midstream Performed By: #### I FE,URINE, SVETLANA SERUM, UPE RAND, SPE #### [facility] , #### ESR, ADDONUAPLUS, CRP, CBC, CMP #### [address] Specificy Yolyn,Urine 1.039 High 1.001-1.030 [facility] Comment on above: Order Comment: Name Collection Type:: Clean-Voided Midstream Performed By: #### I FE,URINE, SVETLANA SERUM, UPE RAND, SPE #### [facility] , #### ESR, ADDONUAPLUS, CRP, CBC, CMP #### [address] Squamous Epithelial Cell,Urine None Seen Normal 0-2 [facility] Comment on above: Order Comment: Name Collection Type:: Clean-Voided Midstream Performed By: #### I FE,URINE, SVETLANA SERUM, UPE RAND, SPE #### [facility] , #### ESR, ADDONUAPLUS, CRP, CBC, CMP #### [facility] [address] [place] [address] Urobilinogen,Urine Normal Normal Normal [facility] Comment on above: Order Comment: Name Collection Type:: Clean-Voided Midstream Performed By: #### I FE,URINE, SVETLANA SERUM, UPE RAND, SPE #### [facility] , #### ESR, ADDONUAPLUS, CRP, CBC, CMP #### [facility] [address] [place] [address] WBC LM.HPF (Urine sed) [#/Area] 0 /[HPF] Normal 0-4 [facility] Comment on above: Order Comment: Name Collection Type:: Clean-Voided Midstream Performed By: #### I FE,URINE, SVETLANA SERUM, UPE RAND, SPE #### [facility] , #### ESR, ADDONUAPLUS, CRP, CBC, CMP #### [address] Eosinophils Auto (Bld) [#/Vo l]Ordered By: Carlos Guzmán on 11-24-2023 Eosinophils (Bld) [#/Vol] 0.2 10*3/uL 0.0-0.45 [facility] Eosinophils/100 WBC Auto (Bl d)Ordered By: Carlos Guzmán on 11-24-2023 Eosinophils/100 WBC (Bld) 2.0 % . [facility] Erythrocyte Sedimentation Ra bibiana 11-24-2023 ESR (Bld) [Velocity] 72 mm/h High 0-19 [facility] Comment on above: Result Comment: PERF ORMED BY: [place] [address] PATHOLOGIST WASH BOX OPERATOR ADELFO RAMIREZ M.D. Performed By: #### I FE,URINE, SVETLANA SERUM, UPE RAND, SPE #### [facility] , #### ESR, ADDONUAPLUS, CRP, CBC, CMP #### [facility] [address] [place] [address] Erythrocyte distribution wid th Auto (RBC) [Ratio]Ordered By: Carlos Guzmán on 11-24-2023 Erythrocyte distribution width (RBC) [Ratio] 15.0 % 12.0-14.8 [facility] Erythrocyte sedimentation ra te by Photometric methodOrdered By: Carlos Guzmán on 11-24-2023 ESR Photometric method (Bld) [Velocity] 72 mm/hr 0-19 [facility] Free K+L LT Chains, Qn, Son 11-24-2023 Free [place] Light Chains, S 127.8 mg/L High 3.3-19.4 [facility] Comment on above: Performed By: #### K APPA, ANCA PROF, C4, CH50, HBSAB, HBCAB, C3, HCV RX PCR, HBSAG, VANESSA ####[facility] , Free Lambda Light Chains, S 171.2 mg/L High 5.7-26.3 [facility] Comment on above: Performed By: #### K APPA, ANCA PROF, C4, CH50, HBSAB, HBCAB, C3, HCV RX PCR, HBSAG, VANESSA ####[facility] , [place]/Lambda Ratio, S 0.75 Normal 0.26-1.65 [facility] Comment on above: Result Comment: Perf ormed at: - [facility] [place] [id number] Asphalt Blender: Krunal Nichols PhD, Phone: [phone] Performed By: #### K APPA, ANCA PROF, C4, CH50, HBSAB, HBCAB, C3, HCV RX PCR, HBSAG, VANESSA ####[facility] , Gamma globulin/Protein.total in 24 hour Urine by ElectrophoresisOrdered By: Carlos Guzmán on 11-24-2023 Gamma globulin Elph (24H U) [Mass fraction] 20.1 % . [facility] Glucose [Mass/volume] in Ser um or PlasmaOrdered By: Carlos Guzmán on 11-24-2023 Glucose [Mass/Vol] 105 mg/dL 70-100 [facility] Comment on above: ADA recommended refe rence rangeRandom Glucose Reference Range is dependent on time and content of last meal. Glucose of more than 200 mg/dL in a nonstressed, ambulatory subject supports the diagnosis of Diabetes Mellitus. Hematocrit Auto (Bld) [Volum e fraction]Ordered By: Carlos Guzmán on 11-24-2023 Hematocrit (Bld) [Volume fraction] 38.8 % 38.8-50.0 [facility] Hemoglobin [Mass/volume] in BloodOrdered By: Carlos Grayfranky on 11-24-2023 Hemoglobin (Bld) [Mass/Vol] 13.3 g/dL 13.0-17. 0 [facility] Hep C Ab wRfx to Qnt PCRon 0 11-24-2023 Hepatitis C Virus Antibody Non-Reactive Normal N on Reactive [facility] Comment on above: Performed By: #### K APPA, ANCA PROF, C4, CH50, HBSAB, HBCAB, C3, HCV RX PCR, HBSAG, VANESSA ####[facility] , Interpretation Hepatitis C Normal . [facility] Comment on above: Result Comment: [...] B Core Antibody Negative Normal Negative [facility] Comment on above: Result Comment: Perf ormed at: [facility] [address] [id number] Asphalt Blender: Krunal Nichols PhD, Phone: [phone] Performed By: #### K APPA, ANCA PROF, C4, CH50, HBSAB, HBCAB, C3, HCV RX PCR, HBSAG, VANESSA ####[facility] , Hepatitis B Surface Antibody on 11-24-2023 Hepatitis B Surface Antibody Non-Reactive Normal . [facility] Comment on above: Result Comment: Non Reactive: Inconsistent with immunity, less than 10 mIU/mL Reactive: Consistent with immunity, greater than 9.9 mIU/mL Performed By: #### K APPA, ANCA PROF, C4, CH50, HBSAB, HBCAB, C3, HCV RX PCR, HBSAG, VANESSA ####[facility] , Hepatitis B Surface Antigeno n 11-24-2023 HBsAg Screen Negative Normal Negative [facility] Comment on above: Result Comment: PERF ORMED BY: [facility] [address] [place] [address] PATHOLOGIST WASH BOX OPERATOR ADELFO RAMIREZ M.D. Performed By: #### K APPA, ANCA PROF, C4, CH50, HBSAB, HBCAB, C3, HCV RX PCR, HBSAG, VANESSA ####[facility] , Hepatitis B virus surface Ab [Presence] in SerumOrdered By: Carlos Guzmán on 11-24-2023 HBV surface Ab Ql (S) Non-Reactive . [facility] Comment on above: Non Reactive: Incons istent with immunity, less than 10 mIU/mL Reactive: Consistent with immunity, greater than 9.9 mIU/mL Hepatitis B virus surface Ag [Presence] in Serum or Plasma by ImmunoassayOrdered By: Carlos Guzmán on 11-24-2023 HBV surface Ag IA Ql Negative Negative [facility] Hepatitis C virus IgG Ab [Pr esence] in Serum or Plasma by ImmunoassayOrdered By: Carlos Guzmán on 11-24-2023 HCV IgG IA Ql Non-Reactive Non Reactive [facility] IgA [Mass/volume] in Serum o r PlasmaOrdered By: Carlos Guzmán on 11-24-2023 IgA [Mass/Vol] 399 mg/dL 61-437 [facility] IgG [Mass/volume] in Serum o r PlasmaOrdered By: Carlos Guzmán on 11-24-2023 IgG [Mass/Vol] 2589 mg/dL 603-1613 [facility] IgM [Mass/volume] in Serum o r PlasmaOrdered By: Carlos Guzmán on 11-24-2023 IgM [Mass/Vol] 217 mg/dL 15-143 [facility] Comment on above: Performed at: [address] [id number] Director: Krunal Nichols PhD, Phone: [phone] Immunofixation for UrineOrde red By: Carlos Guzmán on 11-24-2023 Interpretation Immunofixation (U) [Interp] Comment: . [facility] Comment on above: Presence of monoclon al protein is unclear at this time. Suggestrepeat in 3 to 6 months if clinically indicated.Performed at: - [facility] [place], [place] [id number] Director: Krunal Nichols PhD, Phone: [phone] Immunofixation, (SVETLANA), Urine on 11-24-2023 Immunofixation, (SVETLANA), Urine Comment: Normal . [facility] Comment on above: Result Comment: Pres ence of monoclonal protein is unclear at this time. Suggest repeat in 3 to 6 months if clinically indicated. Performed at: [facility] [address] [place], [place] [id number] Asphalt Blender: Krunal Nichols PhD, Phone: [phone] Performed By: #### I FE,URINE, SVETLANA SERUM, UPE RAND, SPE ####[facility] ,#### ESR, ADDONUAPLUS, CRP, CBC, CMP ####[facility] [place] [address] [place] Immunofixation,Serumon 11-23 Immunofixation, Serum Normal . [facility] Comment on above: Result Comment: No m onoclonality detected. Performed By: #### I FE,URINE, SVETLANA SERUM, UPE RAND, SPE #### [facility] , #### ESR, ADDONUAPLUS, CRP, CBC, CMP #### [facility] [address] [place] [id number] [facility] Immunoglobulin A, Serum 399 mg/dL Normal 61-437 [facility] Comment on above: Performed By: #### I FE,URINE, SVETLANA SERUM, UPE RAND, SPE #### [facility] , #### ESR, ADDONUAPLUS, CRP, CBC, CMP #### [facility] [address] [place] [id number] [place] Immunoglobulin G 2589 mg/dL High 603-1613 [facility] Comment on above: Performed By: #### I FE,URINE, SVETLANA SERUM, UPE RAND, SPE #### [facility] , #### ESR, ADDONUAPLUS, CRP, CBC, CMP #### [facility] [address] Immunoglobulin M, Serum 217 mg/dL High 15-143 [facility] Comment on above: Result Comment: Perf ormed at: - [facility] [place] [address] [place] [address] Asphalt Blender: Krunal Nichols PhD, Phone: [phone] Performed By: #### I FE,URINE, SVETLANA SERUM, UPE RAND, SPE #### [facility] , #### ESR, ADDONUAPLUS, CRP, CBC, CMP #### [facility] [address] Immunoglobulin light chains. kappa.free [Mass/volume] in SerumOrdered By: Carlos Guzmán on 11-24-2023 Immunoglobulin light chains.kappa.free (S) [Mass/Vol] 127.8 mg/L 3.3-19.4 [facility] Immunoglobulin light chains. kappa.free/Immunoglobulin light chains.lambda.free [MassOrdered By: Carlos Guzmán on 11-24-2023 Immunoglobulin light chains.kappa.free/Immunoglo bulin light chains.lambda.free (S) [Mass ratio] 0.75 0.26-1.65 [facility] Comment on above: Performed at: - [facility] [place] [id number] Director: Krunal Nichols PhD, Phone: [phone] Immunoglobulin light chains. lambda.free [Mass/volume] in Serum or PlasmaOrdered By: Carlos Guzmán on 11-24-2023 Immunoglobulin light chains.lambda.free [Mass/Vol] 171.2 mg/L 5.7-26.3 [facility] Ketones Auto test strip (U) [Mass/Vol]Ordered By: Carlos Guzmán on 11-24-2023 Ketones (U) [Mass/Vol] Trace Negative [facility] - UrinalysisOrder ed By: Carlos Guzmán on 11-24-2023 Hyaline casts LM Ql (Urine sed) 0-8 [LPF] 0-8 [facility] Leukocytes [#/volume] correc yuniel for nucleated erythrocytes in Blood by Automated counOrdered By: Carlos Guzmán on 11-24-2023 WBC corrected for nucl RBC Auto (Bld) [#/Vol] 8.9 10*3/uL 4.1-10.5 [facility] Lymphocytes Auto (Bld) [#/Vo l]Ordered By: Carlos Guzmán on 11-24-2023 Lymphocytes (Bld) [#/Vol] 2.5 10*3/uL 1.00-4.8 [facility] Lymphocytes/100 WBC Auto (Bl d)Ordered By: Carlos Guzmán on 11-24-2023 Lymphocytes/100 WBC (Bld) 28.6 % . [facility] MCH Auto (RBC) [Entitic mass ]Ordered By: Carlos Guzmán on 11-24-2023 MCH (RBC) [Entitic mass] 30.0 pg 27.5-35.2 [facility] MCHC Auto (RBC) [Mass/Vol]Or dered By: Carlos Guzmán on 11-24-2023 MCHC (RBC) [Mass/Vol] 34.4 g/dL 32.5-35.6 [facility] MCV Auto (RBC) [Entitic vol] Ordered By: Carlos Guzmán on 11-24-2023 MCV (RBC) [Entitic vol] 87.1 fL 83.5-101 [facility] Monocytes Auto (Bld) [#/Vol] Ordered By: Carlos Guzmán on 11-24-2023 Monocytes (Bld) [#/Vol] 0.7 10*3/uL 0.0-0.8 [facility] Monocytes/100 WBC Auto (Bld) Ordered By: Carlos Guzmán on 11-24-2023 Monocytes/100 WBC (Bld) 7.8 % . [facility] Myeloperoxidase Ab [Units/vo lume] in Serum by ImmunoassayOrdered By: Carlos Guzmán on 11-24-2023 Myeloperoxidase Ab IA Qn (S) 1.8 units 0.0-0.9 [facility] Neutrophil cytoplasmic Ab.pe rinuclear.atypical [Titer] in Serum by ImmunofluorescenceOrdered By: Carlos Guzmán on 11-24-2023 Neutrophil cytoplasmic Ab.perinuclear.atypical IF (S) [Titer] <1:20 titer Neg:<1:20 [facility] Comment on above: The atypical pANCA p attern has been observed in asignificant percentage of patients with ulcerative colitis,primary sclerosing cholangitis and autoimmune hepatitis.Performed at: [facility] [id number] Director: Blanca Olmedo MD, Phone: [phone] at: [facility] [address] [id number] Director: Krunal Nichols PhD, Phone: [phone] Neutrophils Auto (Bld) [#/Vo l]Ordered By: Carlos Guzmán on 11-24-2023 Neutrophils (Bld) [#/Vol] 5.4 10*3/uL 1.8-7.7 [facility] Neutrophils/100 WBC Auto (Bl d)Ordered By: Carlos Guzmán on 11-24-2023 Neutrophils/100 WBC (Bld) 60.5 % . [facility] Nitrite Test strip Ql (U)Ord ered By: Carlos Guzmán on 11-24-2023 Nitrite Ql (U) Negative Negative [facility] No Panel InformationOrdered By: Carlos Guzmán on 11-24-2023 Anti-Nuclear Antibody Comment 2 See comment . [facility] Comment on above: Pattern Potential Di sease Association Homogeneous Systemic Lupus Erythematosus, Drug Induced Systemic Lupus Erythematosus, Chronic Autoimmune hepatitis, Juvenile Idiopathic Arthritis Speckled Sjogren Syndrome, Systemic Lupus Erythematosus, Subacute Cutaneous Lupus, Lupus, Congenital Heart Block, Mixed Connective Tissue Disease, Scleroderma-diffuse, Scleroderma-Autoimmune Myositis Overlap Syndrome, Systemic Lupus Qaockjkmtuecy-Voxfkcgjmmg-Vnlqxwdjmf Myositis Overlap Syndrome, Systemic Autoimmune Rheumatic Disease, [...] Antiphospholipid Syndrome Performed at: [facility] [address] [id number] Director: Krunal Nichols PhD, Phone: [phone] Estimated GFR (CKD-EPI) > 60.0 mL/Min [facility] Hepatitis B Core Total Antibody Negative Negative [facility] Comment on above: Performed at: [facility] [address] [id number] Director: Krunal Nichols PhD, Phone: [phone] Hepatitis C Interpretation See comment . [facility] Comment on above: Not infected with HC V unless early or acute infection issuspected (which may be delayed in an immunocompromisedindividual), or other evidence exists to indicate HCVinfection. Perinuclear ANCA (p-ANCA) Antibody <1:20 titer Neg:<1:20 [facility] Comment on above: The presence of posi tive fluorescence exhibiting P-ANCA orC-ANCA patterns alone is not specific for the diagnosis ofWegener's Granulomatosis (WG) or microscopic polyangiitis.Decisions about treatment should not be based solely onANCA IFA results. The International ANCA Group Consensusrecommends follow up testing of positive sera with both DC-3 and MPO-ANCA enzyme immunoassays. As many as 5% serumsamples are positive only by EIA. Ref. AM J Clin [id number];111:507-513. Pharmacy Creatinine Clearance (Chem N/A [facility] Protein Electrophoresis M-Michael Not observed g/dL Not Observed [facility] Protein Electrophoresis Note See comment . [facility] Comment on above: Protein electrophore sis scan will follow via computer,mail, or tree faller delivery.Performed at: [facility] [place], [place] [id number] Director: Krunal Nichols PhD, Phone: [phone] Serum Immunofixation See comment . [facility] Comment on above: No monoclonality det ected. Total Complement (CH50) 51 U/mL >41 [facility] Comment on above: Age Male [...] to determine out of range values.Performed at: [employer] [place], [place] [id number] Director: Krunal Nichols PhD, Phone: [phone] Urine Random Prot Electrophor Note See comment . [facility] Comment on above: Protein electrophore sis scan will follow via computer,mail, or tree faller delivery. Nucleated erythrocytes [Pres ence] in Blood by Automated countOrdered By: Carlos Guzmán on 11-24-2023 Nucleated RBC Auto Ql (Bld) 0.0 /100{WBC} 0-0.5 [facility] Platelet mean volume Auto (B ld) [Entitic vol]Ordered By: Carlos Guzmán on 11-24-2023 Platelet mean volume (Bld) [Entitic vol] 7.9 fL 6.6-10.1 [facility] Platelets Auto (Bld) [#/Vol] Ordered By: Carlos Guzmán on 11-24-2023 Platelets (Bld) [#/Vol] 369 10*3/uL 150-450 [facility] Potassium [Moles/volume] in Serum or PlasmaOrdered By: Carlos Guzmán on 11-24-2023 Potassium [Moles/Vol] 4.3 mmol/L 3.5-5.1 [facility] Protein Auto test strip (U) [Mass/Vol]Ordered By: Carlos Guzmán on 11-24-2023 Protein (U) [Mass/Vol] 30 mg/dL Negative [facility] Protein Electro, Random Urin sheree 11-24-2023 Albumin, Urine 50.7 % Normal . [facility] Comment on above: Performed By: #### I FE,URINE, SVETLANA SERUM, UPE RAND, SPE ####[facility] ,#### ESR, ADDONUAPLUS, CRP, CBC, CMP ####[facility] [address] [place] [id number] [facility] Janaq-1-Ehetdvuj, Urine 1.3 % Normal . [facility] Comment on above: Performed By: #### I FE,URINE, SVETLANA SERUM, UPE RAND, SPE ####[facility] ,#### ESR, ADDONUAPLUS, CRP, CBC, CMP ####[facility] [address] [place] [address] [facility] Kxgfv-4-Kchxbptx, Urine 9.1 % Normal . [facility] Comment on above: Performed By: #### I FE,URINE, SVETLANA SERUM, UPE RAND, SPE ####[facility] ,#### ESR, ADDONUAPLUS, CRP, CBC, CMP ####[address] Beta Globulin, Urine 18.7 % Normal . [facility] Comment on above: Performed By: #### I FE,URINE, SVETLANA SERUM, UPE RAND, SPE ####[facility] ,#### ESR, ADDONUAPLUS, CRP, CBC, CMP ####[address] Gamma Globulin, Urine 20.1 % Normal . [facility] Comment on above: Performed By: #### I FE,URINE, SVETLANA SERUM, UPE RAND, SPE ####[facility] ,#### ESR, ADDONUAPLUS, CRP, CBC, CMP ####[address] M-Michael % Not Observed Normal Not Observed [facility] Comment on above: Performed By: #### I FE,URINE, SVETLANA SERUM, UPE RAND, SPE ####[facility] ,#### ESR, ADDONUAPLUS, CRP, CBC, CMP ####[address] Please Note: Normal . [facility] Comment on above: Result Comment: Prot ein electrophoresis scan will follow via computer, mail, or tree faller delivery. PERFORMED BY: [facility] [address] [place] [address] PATHOLOGIST WASH BOX OPERATOR ADELFO RAMIREZ M.D. Performed By: #### I FE,URINE, SVETLANA SERUM, UPE RAND, SPE ####[facility] ,#### ESR, ADDONUAPLUS, CRP, CBC, CMP ####[address] Protein (U) [Mass/Vol] 40.0 mg/dL Normal Not Estab. Th e [facility] Comment on above: Performed By: #### I FE,URINE, SVETLANA SERUM, UPE RAND, SPE ####[facility] ,#### ESR, ADDONUAPLUS, CRP, CBC, CMP ####[facility] [id number] [place] [address] [place] Protein Electrophoresis, Ser umon 11-24-2023 Albumin [Mass/Vol] 3.5 g/dL Normal 2.9-4.4 [facility] Comment on above: Performed By: #### I FE,URINE, SVETLANA SERUM, UPE RAND, SPE #### [facility] , #### ESR, ADDONUAPLUS, CRP, CBC, CMP #### [facility] [address] [place] [address] Albumin/Globulin [Mass ratio] 0.8 {ratio} Normal 0.7-1.7 [facility] Comment on above: Performed By: #### I FE,URINE, SVETLANA SERUM, UPE RAND, SPE #### [facility] , #### ESR, ADDONUAPLUS, CRP, CBC, CMP #### [facility] [address] Wgplm-1-Adndgfsn 0.2 g/dL Normal 0.0-0.4 [facility] Comment on above: Performed By: #### I FE,URINE, SVETLANA SERUM, UPE RAND, SPE #### [facility] , #### ESR, ADDONUAPLUS, CRP, CBC, CMP #### [facility] [address] [place] [address] [place] Hghrg-1-Bjpnzadu 1.0 g/dL Normal 0.4-1.0 [facility] Comment on above: Performed By: #### I FE,URINE, SVETLANA SERUM, UPE RAND, SPE #### [facility] , #### ESR, ADDONUAPLUS, CRP, CBC, CMP #### [address] Beta Globulin 1.0 g/dL Normal 0.7-1.3 [facility] Comment on above: Performed By: #### I FE,URINE, SVETLANA SERUM, UPE RAND, SPE #### [facility] , #### ESR, ADDONUAPLUS, CRP, CBC, CMP #### [address] Gamma Globulin 2.2 g/dL High 0.4-1.8 [facility] Comment on above: Performed By: #### I FE,URINE, SVETLANA SERUM, UPE RAND, SPE #### [facility] , #### ESR, ADDONUAPLUS, CRP, CBC, CMP #### [address] M-Michael Not Observed Normal Not Observed [facility] Comment on above: Performed By: #### I FE,URINE, SVETLANA SERUM, UPE RAND, SPE #### [facility] , #### ESR, ADDONUAPLUS, CRP, CBC, CMP #### [address] Protein [Mass/Vol] 7.9 g/dL Normal 6.0-8.5 [facility] Comment on above: Performed By: #### I FE,URINE, SVETLANA SERUM, UPE RAND, SPE #### [facility] , #### ESR, ADDONUAPLUS, CRP, CBC, CMP #### [address] SPE-Note Normal . [facility] Comment on above: Result Comment: Prot ein electrophoresis scan will follow via computer, mail, or tree faller delivery. Performed at: [facility] [address] [id number] Asphalt Blender: Krunal Nichols PhD, Phone: [phone] PERFORMED BY: [place] [address] PATHOLOGIST WASH BOX OPERATOR ADELFO RAMIREZ M.D. Performed By: #### I FE,URINE, SVETLANA SERUM, UPE RAND, SPE #### [facility] , #### ESR, ADDONUAPLUS, CRP, CBC, CMP #### [address] Protein [Mass/volume] in Ser um or PlasmaOrdered By: Carlos Guzmán on 11-24-2023 Protein [Mass/Vol] 8.2 g/dL 6.4-8.9 [facility] Protein [Mass/Vol] 7.9 g/dL 6.0-8.5 [facility] Protein [Mass/volume] in Uri neOrdered By: Carlos Guzmán on 11-24-2023 Protein (U) [Mass/Vol] 40.0 mg/dL Not Estab. Fi [facility] Protein.monoclonal/Protein.t otal in 24 hour Urine by ElectrophoresisOrdered By: Carlos Guzmán on 11-24-2023 Protein.monoclonal Elph (24H U) [Mass fraction] Not observed % Not Observed [facility] Proteinase 3 Ab [Units/volum e] in Serum by ImmunoassayOrdered By: Carlos Gumzán on 11-24-2023 Proteinase 3 Ab IA Qn (S) <0.2 units 0.0-0.9 [facility] RBC Auto (Bld) [#/Vol]Ordere d By: Carlos Guzmán on 11-24-2023 RBC (Bld) [#/Vol] 4.45 10*6/uL 3.90-5.60 [facility] Serum classic neutrophil cyt oplasmic antibody titer by immunofluorescenceOrdered By: Carlos Guzmán on 11-24-2023 Neutrophil cytoplasmic Ab.classic IF (S) [Titer] <1:20 titer Neg:<1:20 [facility] Serum globulin measurement b y calculation (mass/volume)Ordered By: Carlos Guzmán on 11-24-2023 Globulin (S) [Mass/Vol] 4.4 g/dL 2.2-3.9 [facility] Serum homogeneous pattern an tinuclear antibody (VANESSA) titerOrdered By: Carlos Guzmán on 11-24-2023 Homogenous nuclear Ab pattern (S) [Titer] 1:640 . [facility] Comment on above: ICAP nomenclature: A C-1 Serum nuclear antibody titer Ordered By: Carlos Guzmán on 11-24-2023 Nuclear Ab (S) [Titer] Positive . [facility] Comment on above: Negative <1:80 Borde rline 1:80 Positive >1:80 Serum or plasma albumin/glob ulin mass ratioOrdered By: Carlos Guzmán on 11-24-2023 Albumin/Globulin [Mass ratio] 0.9 {ratio} [facility] Albumin/Globulin [Mass ratio] 0.8 {ratio} 0.7-1.7 [facility] Serum or plasma alpha 1 glob ulin measurement by electrophoresis (mass/volume)Ordered By: Carlos Guzmán on 11-24-2023 Alpha 1 globulin Elph [Mass/Vol] 0.2 g/dL 0.0-0.4 [facility] Serum or plasma alpha 2 glob ulin measurement by electrophoresis (mass/volume)Ordered By: Carlos Guzmán on 11-24-2023 Alpha 2 globulin Elph [Mass/Vol] 1.0 g/dL 0.4-1.0 [facility] Serum or plasma anion gap de terminationOrdered By: Carlos Guzmán on 11-24-2023 Anion gap [Moles/Vol] 14.8 mmol/L 6.0-15.0 [facility] Serum or plasma beta globuli n measurement by electrophoresis (mass/volume)Ordered By: Carlos Guzmán on 11-24-2023 Beta globulin Elph [Mass/Vol] 1.0 g/dL 0.7-1.3 [facility] Serum or plasma complement C 3 measurement (mass/volume)Ordered By: Carlos Guzmán on 11-24-2023 Complement C3 [Mass/Vol] 135 mg/dL 82-167 [facility] Comment on above: Performed at: [address] [id number] Director: Krunal Nichols PhD, Phone: [phone] Serum or plasma complement C 4 measurement (mass/volume)Ordered By: Carlos Guzmán on 11-24-2023 Complement C4 [Mass/Vol] 10 mg/dL 12-38 [facility] Serum or plasma gamma globul in measurement by electrophoresis (mass/volume)Ordered By: Carlos Guzmán on 11-24-2023 Gamma globulin Elph [Mass/Vol] 2.2 g/dL 0.4-1.8 [facility] Sodium [Moles/volume] in Ser um or PlasmaOrdered By: Carlos Guzmán on 11-24-2023 Sodium [Moles/Vol] 138 mmol/L 136-145 [facility] Specific gravity Auto test s trip (U) [Rel density]Ordered By: Carlos Guzmán on 11-24-2023 Specific gravity (U) [Rel density] 1.039 1.001-1.030 [facility] Squamous epithelial cells de tection in urine sediment by light microscopyOrdered By: Carlos Guzmán on 11-24-2023 Epithelial cells.squamous LM Ql (Urine sed) None seen [HPF] 0-2 [facility] Urea nitrogen [Mass/volume] in Serum or PlasmaOrdered By: Carlos Guzmán on 11-24-2023 Urea nitrogen [Mass/Vol] 15 mg/dL 7-25 [facility] Urine alpha 1 globulin/total protein by electrophoresisOrdered By: Carlos Guzmán on 11-24-2023 Alpha 1 globulin Elph (U) [Mass fraction] 1.3 % . [facility] Urine alpha 2 globulin/total protein ratio by electrophoresisOrdered By: Carlos Guzmán on 11-24-2023 Alpha 2 globulin Elph (U) [Mass fraction] 9.1 % . [facility] Urine bacteria detection by automated methodOrdered By: Carlos Guzmán on 11-24-2023 Bacteria Auto Ql (U) None seen None Seen [facility] Urine beta globulin measurem ent by electrophoresis (mass/volume)Ordered By: Carlos Guzmán on 11-24-2023 Beta globulin Elph (U) [Mass/Vol] 18.7 % . [facility] Urine clarity by refractomet ry automatedOrdered By: Carlos Guzmán on 11-24-2023 Clarity Refractometry automated (U) Clear Clear [facility] Urine glucose measurement by automated test strip (mass/volume)Ordered By: Carlos Guzmán on 11-24-2023 Glucose Auto test strip (U) [Mass/Vol] >=1000 mg/dL Normal [facility] Urine hemoglobin detection b y automated test stripOrdered By: Carlos Guzmán on 11-24-2023 Hemoglobin Auto test strip Ql (U) Negative Negative [facility] Urine leukocyte esterase det ection by automated test stripOrdered By: Carlos Guzmán on 11-24-2023 Leukocyte esterase Auto test strip Ql (U) Negative Negative [facility] Urobilinogen Auto test strip (U) [Mass/Vol]Ordered By: Carlos Guzmán on 11-24-2023 Urobilinogen (U) [Mass/Vol] Normal mg/dL Normal [facility] WBC Auto (Bld) [#/Vol]Ordere d By: Carlos Guzmán on 11-24-2023 WBC (Bld) [#/Vol] 8.9 10*3/uL 4.1-10.5 [facility] pH Auto test strip (U)Ordere d By: Carlos Guzmán on 11-24-2023 pH (U) 5.0 [pH] 5.0-9.0 [facility] Basophils Auto (Bld) [#/Vol] on 10-28-2023 Basophils (Bld) [#/Vol] 0.1 10 3/uL 0.0-0.1 [facility] Basophils/100 WBC Auto (Bld) on 10-28-2023 Basophils/100 WBC (Bld) 0.7 % 0.2-2.0 [facility] Centriole Ab [Titer] in Seru m by Immunofluorescenceon 10-28-2023 Centriole Ab IF (S) [Titer] TNP . [facility] Centromere Ab [Titer] in Ser um by Immunofluorescenceon 10-28-2023 Centromere Ab IF (S) [Titer] TN . [facility] Eosinophils/100 WBC Auto (Bl d)on 10-28-2023 Eosinophils/100 WBC (Bld) 2.2 % 0.9-7.0 [facility] Erythrocyte distribution wid th Auto (RBC) [Ratio]on 10-28-2023 Erythrocyte distribution width (RBC) [Ratio] 14.6 % 11.0-15.0 [facility] Estimated glomerular filtrat ion rate (GFR) non- Americanon 10-28-2023 GFR/1.73 sq M.predicted among non-blacks MDRD (S/P/Bld) [Vol rate/Area] mL/min/{1.73_m2} >=60 [facility] Globulin Calc (S) [Mass/Vol] on 10-28-2023 Globulin (S) [Mass/Vol] 5.8 g/dL [facility] Hematocrit Auto (Bld) [Volum e fraction]on 10-28-2023 Hematocrit (Bld) [Volume fraction] 40.0 % 42.0-54.0 [facility] Hemoglobin [Mass/volume] in Bloodon 10-28-2023 Hemoglobin (Bld) [Mass/Vol] 13.1 g/dL 14.0-18. 0 [facility] Laboratory - Chemistry and C hemistry - challengeon 10-28-2023 Albumin [Mass/Vol] 2.8 g/dL 3.4-5.0 [facility] ALP [Catalytic activity/Vol] 94 U/L 46-116 [facility] ALT [Catalytic activity/Vol] 17 U/L 16-63 [facility] AST [Catalytic activity/Vol] 23 U/L 15-37 [facility] Bilirubin [Mass/Vol] 0.6 mg/dL 0.2-1.0 [facility] Calcium [Mass/Vol] 8.8 mg/dL 8.5-10.1 [facility] Chloride [Moles/Vol] 100 mmol/L 98-107 [facility] CO2 [Moles/Vol] 28.0 mmol/L 21.0-32.0 [facility] Creatinine [Mass/Vol] 0.80 mg/dL 0.70-1.30 [facility] GFR/1.73 sq M.predicted MDRD (S/P/Bld) [Vol rate/Area] mL/min/{1.73_m2} >=60 [facility] Glucose [Mass/Vol] 135 mg/dL 74-106 [facility] Potassium [Moles/Vol] 4.5 mmol/L 3.5-5.1 [facility] Protein [Mass/Vol] 8.6 g/dL 6.4-8.2 [facility] Sodium [Moles/Vol] 138 mmol/L 136-145 [facility] Urate [Mass/Vol] 4.2 mg/dL 3.5-7.2 [facility] Urea nitrogen [Mass/Vol] 14.0 mg/dL 7.0-18.0 [facility] Urea nitrogen/Creatinine [Mass ratio] 17.5 mg/mg [facility] Laboratory - Hematology and Cell countson 10-28-2023 ESR (Bld) [Velocity] 62 mm/h <=20 [facility] Immature granulocytes/100 WBC (Bld) 0.1 % 0.0-0.5 [facility] Leukocytes [#/volume] correc yuniel for nucleated erythrocytes in Blood by Automated counon 10-28-2023 WBC corrected for nucl RBC Auto (Bld) [#/Vol] 7.2 10 3/uL 4.0-11.0 [facility] Lymphocytes Auto (Bld) [#/Vo l]on 10-28-2023 Lymphocytes (Bld) [#/Vol] 1.9 10 3/uL 1.2-3.8 [facility] Lymphocytes/100 WBC Auto (Bl d)on 10-28-2023 Lymphocytes/100 WBC (Bld) 26.6 % 20.5-60.0 [facility] MCH Auto (RBC) [Entitic mass ]on 10-28-2023 MCH (RBC) [Entitic mass] 30.2 pg 25.9-34.0 [facility] MCHC Auto (RBC) [Mass/Vol]on 10-28-2023 MCHC (RBC) [Mass/Vol] 32.8 g/dL 29.9-35.2 [facility] MCV Auto (RBC) [Entitic vol] on 10-28-2023 MCV (RBC) [Entitic vol] 92.2 fL 80.0-94.0 [facility] Midbody Ab [Titer] in Serum by Immunofluorescenceon 10-28-2023 Midbody Ab IF (S) [Titer] TNP . [facility] Mitotic spindle apparatus Ab [Titer] in Serum or Plasma by Immunofluorescenceon 10-28-2023 Mitotic spindle apparatus Ab IF [Titer] TNP . [facility] Monocytes Auto (Bld) [#/Vol] on 10-28-2023 Monocytes (Bld) [#/Vol] 0.8 10 3/uL 0.3-0.8 [facility] Monocytes/100 WBC Auto (Bld) on 10-28-2023 Monocytes/100 WBC (Bld) 10.4 % 1.7-12.0 [facility] Neutrophils Auto (Bld) [#/Vo l]on 10-28-2023 Neutrophils (Bld) [#/Vol] 4.3 10 3/uL 1.4-6.5 [facility] Neutrophils/100 WBC Auto (Bl d)on 10-28-2023 Neutrophils/100 WBC (Bld) 60.0 % 43.0-75.0 [facility] No Panel Informationon 10-28 Anti-Nuclear Antibody Comment 2 Comment . [facility] Comment on above: Pattern Potential Di sease Association Homogeneous Systemic Lupus Erythematosus, Drug Induced Systemic Lupus Erythematosus, Chronic Autoimmune hepatitis, Juvenile Idiopathic Arthritis Speckled Sjogren Syndrome, Systemic Lupus Erythematosus, Subacute Cutaneous Lupus, Lupus, Congenital Heart Block, Mixed Connective Tissue Disease, Scleroderma-diffuse, Scleroderma-Autoimmune Myositis Overlap Syndrome, Systemic Lupus Wpfvxlinzakhr-Qwpecwwbgev-Vhqzldbabl Myositis Overlap Syndrome, Systemic Autoimmune Rheumatic Disease, [...] Cytopenias, Linear Scleroderma, Antiphospholipid Syndrome Performed at: [facility] [id number] Director: Krunal Nichols PhD, Phone: [phone] C-Reactive Protein, Quantitative <0.50 mg/dL <=0.50 [facility] Eosinophils # (Auto) 0.2 10 3/uL 0.0-0.7 [facility] Immature Granulocyte # (Auto) 0.01 10 3/uL 0.00-0.03 [facility] Nuclear dots nuclear Ab prashant bhupendra [Titer] in Serum by Immunofluorescenceon 10-28-2023 Nuclear dots nuclear Ab pattern IF (S) [Titer] TNP . [facility] Nuclear membrane pores nucle ar Ab pattern [Titer] in Serum by Immunofluorescenceon 10-28-2023 Nuclear membrane pores nuclear Ab pattern IF (S) [Titer] TNP . [facility] PCNA extractable nuclear Ab [Titer] in Serum by Immunofluorescenceon 10-28-2023 PCNA extractable nuclear Ab IF (S) [Titer] TNP . [facility] Platelet mean volume Auto (B ld) [Entitic vol]on 10-28-2023 Platelet mean volume (Bld) [Entitic vol] 8.9 fL 9.5-13.5 [facility] Platelets Auto (Bld) [#/Vol] on 10-28-2023 Platelets (Bld) [#/Vol] 296 10 3/uL 150-450 [facility] RBC Auto (Bld) [#/Vol]on RBC (Bld) [#/Vol] 4.34 10 6/uL 4.70-6.10 [facility] Serum homogeneous pattern an tinuclear antibody (VANESSA) titeron 10-28-2023 Homogenous nuclear Ab pattern (S) [Titer] 1:640 . [facility] Comment on above: ICAP nomenclature: A C-1 Serum nuclear antibody titer on 10-28-2023 Nuclear Ab (S) [Titer] Positive . [facility] Comment on above: Negative <1:80 Borde rline 1:80 Positive >1:80 Serum nucleolar pattern anti nuclear antibody (VANESSA) titeron 10-28-2023 Nucleolar nuclear Ab pattern (S) [Titer] TNP . [facility] Serum or plasma albumin/glob ulin mass ratioon 10-28-2023 Albumin/Globulin [Mass ratio] 0.5 {ratio} [facility] Serum or plasma anion gap de terminationon 10-28-2023 Anion gap [Moles/Vol] 14.5 mmol/L [facility] Serum or plasma cyclic adeno sine monophosphate measurement (moles/volume)on 10-28-2023 Adenosine monophosphate.cyclic [Moles/Vol] >250 units 0-19 [facility] Comment on above: Negative <20 Weak po sitive 20 - 39 Moderate positive 40 - 59 Strong positive >59Performed at: - [facility] [id number] Director: Krunal Nichols PhD, Phone: [phone] Serum or plasma rheumatoid f actor measurement (units/volume)on 10-28-2023 Rheumatoid factor Qn 183.9 [IU]/mL <14.0 [facility] Comment on above: Results confirmed on dilution.Performed at: [facility] [facility] [id number] Director: Krunal Nichols PhD, Phone: [phone] Serum speckled pattern antin uclear antibody (VANESSA) titeron 10-28-2023 Speckled nuclear Ab pattern (S) [Titer] TNP . [facility] Glucose Glucometer (BldC) [M ass/Vol]Ordered By: Erickson Nascimento on 07-04-2023 Glucose [Mass/Vol] 134 mg/dL [facility] Comment on above: Random Glucose Refer ence Range is dependent on time and content of last meal. Glucose of more than 200 mg/dL in a nonstressed, ambulatory subject supports the diagnosis of Diabetes Mellitus. Glucose Poct Glucometerson 1 09-03-2022 Glucose [Mass/Vol] 134 mg/dL Normal [facility] Comment on above: Result Comment: [place] Glucose Reference Range is dependent on time and content of last meal. Glucose of more than 200 mg/dL in a nonstressed, ambulatory subject supports the diagnosis of Diabetes Mellitus. PERFORMED BY: [facility] [address] [place] [address] PATHOLOGIST WASH BOX OPERATOR ADELFO RAMIREZ M.D. Performed By: #### G LOYD ####Point of Care testing, Eduard 07-04-2023 L - -------- Specimen: [id number] Received: 07/04/23 Status: RAQUEL De Oliveira Num: [id number] Spec Type: Surgical Subm Dr: Erickson Nascimento DO Tissues: A Soft Tissue/Surgical Margin-Other than Tumor,Mass,Lip or Natasha (LT ELBOW MASS) Procedures: VINCENT, Gross/Micro L4 -------- Age/ Patient Sex Location Account Attending Physician -------- Mariano Gutierrez 73/M [place] [id number] Erickson Nascimento DO -------- SPEC NUM: [id number] RECD: 07/04/23 STATUS: RAQUEL DE OLIVEIRA NUM: [id number] DENISA: 07/04/23 [facility] DR: Erickson Nascimento DO ENTERED: 07/04/23 [facility] DR: DARY TYPE: Surgical DEPT: S ORDERED: [...] tissue with a rubbery, dubois-pink cut surface. Automotive Vehicle Inspector sections are submitted in one cassette labeled A1. -------- Specimen: [id number] Received: 07/04/23 Status: RAQUEL De Oliveira Num: [id number] Spec Type: Surgical Subm Dr: Erickson Nascimento, Tissues: A Soft Tissue/Surgical Margin-Other than Tumor,Mass,Lip or Natasha (LT ELBOW MASS) Procedures: Kristin KAUR/Zo L4 -------- Patient: Mariano Gutierrez [id number] (Continued) -------- Specimen: [id number] Received: 07/04/23 (Continued) Signed (signature on file) Brandy Keane MD 07/08/23 1545 -------- Specimen: [id number] Received: 07/04/23 Status: RAQUEL De Oliveira Num: [id number] Spec Type: Surgical Subm Dr: Erickson Nascimento DO Tissues: A Soft Tissue/Surgical Margin-Other than Tumor,Mass,Lip or Natasha (LT ELBOW MASS) Procedures: Kristin KAUR/Zo L4 -------- Patient: Mariano Gutierrez [id number] (Continued) -------- Specimen: [id number] Received: 07/04/23 (Continued) Microscopic Description One H E slide reviewed. The microscopic examination confirms the diagnosis. CPT Codes 65853 -------- -------- Specimen: [id number] Received: 07/04/23 Status: RAQUEL De Oliveira Num: [id number] Spec Type: Surgical Subm Dr: Erickson Nascimento DO Tissues: A Soft Tissue/Surgical Margin-Other than Tumor,Mass,Lip or Natasha (LT ELBOW MASS) Procedures: Kristin KAUR/Zo L4 -------- Patient: Mariano Gutierrez [id number] (Continued) -------- Signed (signature on file) Brandy Keane MD 07/08/23 0382 Normal [facility] XR elbow LT 2Von 02-26-2023 XR elbow LT 2V [address] [address] XRay Report Signed Patient: Mariano Gutierrez MR#: [id number] : 1950 Acct:[id number] Age/Sex: 72 / M ADM Date: 02/26/23 Loc: [facility] Room: Type: [facility] Attending Dr: Erickson Nascimento DO Copies to: [...] Blount Jr., D.OJeferson02/26/2023 2:56 PM Dictation Location: [place] [address] Transcribed By: [facility] 02/26/23 1456 Dictated By: Abdirahman Blount Jr, DO 02/26/23 1455 Signed By: 02/26/23 1456 Normal [facility] GLYCOHEMOGLOBIN A1Con 2022 ADA RECOMMENDATION SEE BELOW Normal [facility] Comment on above: Result Comment: ADA RECOMMENDED LIMIT 4.0 - 6.0 ADA THERAPEUTIC TARGET < 7.0 ACTION SUGGESTED > 7.0 Performed By: #### D ATA1C #### [facility] [address] [place] [address] Dr. Ginger Keane Glucose [Mass/Vol] 123 mg/dL Normal [facility] Comment on above: Performed By: #### D ATA1C #### [facility] [address] [address] [address] Ginger Keane HbA1c (Bld) [Mass fraction] 5.9 % Normal 4.5-6.2 [facility] Comment on above: Performed By: #### D ATA1C #### [facility] [address] [address] [address] Ginger Keane GLYCOHEMOGLOBIN A1Con 2021 ADA RECOMMENDATION SEE BELOW Normal [facility] Comment on above: Result Comment: ADA RECOMMENDED LIMIT 4.0 - 6.0 ADA THERAPEUTIC TARGET < 7.0 ACTION SUGGESTED > 7.0 Performed By: #### D ATA1C #### [facility] [address] [place] [address] Dr. Ginger Keane Glucose [Mass/Vol] 160 mg/dL Normal [facility] Comment on above: Performed By: #### D ATA1C #### [facility] [address] [place] [address] Dr. Ginger Keane HbA1c (Bld) [Mass fraction] 7.2 % Critically high 4.5 -6.2 [facility] Comment on above: Performed By: #### D ATA1C #### [facility] [address] [place] [address] Dr. Ginger Keane MICROALBUMIN URINEon 022 Albumin, Urine 123.8 ug/mL Normal Not Estab. [facility] Comment on above: Performed By: #### M ALBLC #### [facility] [address] [place] [address] Dr. Ginger Keane CBC AUTO DIFFon 05-15-2022 BASO # 0.1 103/ul Normal 0.0-0.1 [facility] Comment on above: Performed By: #### C BC #### [facility] [address] [place] [address] Dr. Ginger Keane Basophils/100 WBC (Bld) 0.6 % Normal 0.2-2.0 [facility] Comment on above: Performed By: #### C BC #### [facility] [address] [place] [address] Dr. Ginger Keane EO # 0.2 103/ul Normal 0.0-0.7 [facility] Comment on above: Performed By: #### C BC #### [facility] [address] [place] [address] Dr. Ginger Keane Eosinophils/100 WBC (Bld) 2.9 % Normal 0.9-7.0 [facility] Comment on above: Performed By: #### C BC #### [facility] [address] [place] [address] Dr. Ginger Keane Erythrocyte distribution width (RBC) [Ratio] 12.9 % Normal 11.0-15.0 [facility] Comment on above: Performed By: #### C BC #### [facility] [address] [place] [address] Dr. Ginger Keane Hematocrit (Bld) [Volume fraction] 44.3 % Normal 42.0-54.0 [facility] Comment on above: Performed By: #### C BC #### [facility] [address] [place] [address] Dr. Ginger Keane Hemoglobin (Bld) [Mass/Vol] 15.6 g/dL Normal 14.0-18. 0 [facility] Comment on above: Performed By: #### C BC #### [facility] [address] [place] [address] Dr. Ginger Keane IG # 0.01 10e3/ul Normal 0.00-0.03 [facility] Comment on above: Performed By: #### C BC #### [facility] [address] [place] [address] Dr. Ginger Keane IG % 0.1 % Normal 0.0-0.5 [facility] Comment on above: Performed By: #### C BC #### [facility] [address] [place] [address] Dr. Ginger Keane LYMPH # 2.9 103/ul Normal 1.2-3.8 [facility] Comment on above: Performed By: #### C BC #### [facility] [address] [place] [address] Dr. Ginger Keane Lymphocytes/100 WBC (Bld) 34.1 % Normal 20.5-60.0 [facility] Comment on above: Performed By: #### C BC #### [facility] [address] [place] [address] Dr. Ginger Keane MANUAL DIFF REQ NO Normal [facility] Comment on above: Performed By: #### C BC #### [facility] [address] [place] [address] Dr. Ginger Keane MCH (RBC) [Entitic mass] 32.8 pg Normal 25.9-34.0 [facility] Comment on above: Performed By: #### C BC #### [facility] [address] [address] [address] Ginger Keane MCHC (RBC) [Mass/Vol] 35.2 g/dL Normal 29.9-35.2 [facility] Comment on above: Performed By: #### C BC #### [facility] [address] [address] [address] Ginger Keane MCV (RBC) [Entitic vol] 93.3 fL Normal 80.0-94.0 [facility] Comment on above: Performed By: #### C BC #### [facility] [address] [place] [address] Dr. Ginger Keane MONO # 0.6 103/ul Normal 0.3-0.8 [facility] Comment on above: Performed By: #### C BC #### [facility] [address] [place] [address] Dr. Ginger Keane Monocytes/100 WBC (Bld) 7.5 % Normal 1.7-12.0 [facility] Comment on above: Performed By: #### C BC #### [facility] [address] [place] [address] Dr. Ginger Keane NEUT # 4.6 103/ul Normal 1.4-6.5 [facility] Comment on above: Performed By: #### C BC #### [facility] [address] [place] [address] Dr. Ginger Keane Neutrophils/100 WBC (Bld) 54.8 % Normal 43.0-75.0 [facility] Comment on above: Performed By: #### C BC #### [facility] [address] [address] [address] Ginger Keane Platelet mean volume (Bld) [Entitic vol] 9.7 fL Normal 9.5-13.5 [facility] Comment on above: Performed By: #### C BC #### [facility] [address] [place] [address] Dr. Ginger Keane PLT 260 103/ul Normal 150-450 [facility] Comment on above: Performed By: #### C BC #### [facility] [address] [address] [address] Ginger Keane RBC 4.75 106/ul Normal 4.70-6.10 [facility] Comment on above: Performed By: #### C BC #### [facility] [address] [address] [address] Ginger Keane WBC 8.4 103/ul Normal 4.0-11.0 [facility] Comment on above: Performed By: #### C BC #### [facility] [address] [place] [address] Dr. Ginger Keane LIPID PROFILEon 05-15-2022 CHOL-HDL RATIO NORM SEE BELOW Normal [facility] Comment on above: Result Comment: 3.3 - 4.4 LOW RISK 4.4 - 7.1 AVERAGE RISK 7.1 - 11.0 MODERATE RISK >11.0 HIGH RISK Performed By: #### B MP, LIPID, ALT #### [facility] [address] [place] [address] Dr. Ginger Keane Cholesterol [Mass/Vol] 119 mg/dL Normal <=200 [facility] Comment on above: Performed By: #### B MP, LIPID, ALT #### [facility] [address] [place] [address] Dr. Ginger Keane Cholesterol in HDL [Mass/Vol] 37 mg/dL Critically low 40-60 [facility] Comment on above: Performed By: #### B MP, LIPID, ALT #### [facility] [address] [place] [address] Dr. Ginger Keane Cholesterol in LDL [Mass/Vol] 35.2 mg/dL Normal [facility] Comment on above: Performed By: #### B MP, LIPID, ALT #### [facility] [address] [place] [address] Dr. Ginger Keane Cholesterol.total/Cholester ol in HDL [Mass ratio] 3.2 {ratio} Normal [facility] Comment on above: Performed By: #### B MP, LIPID, ALT #### [facility] [address] [place] [address] Dr. Ginger Keane HDL NORMAL > or = 60 mg/dl - LO W CARDIOVASCULAR RISK <40 mg/dl - HIGH CARDIOVASCULAR RISK Normal [facility] Comment on above: Performed By: #### B MP, LIPID, ALT #### [facility] [address] [address] [address] Ginger Keane LDL CALC NORMAL SEE BELOW Normal [facility] Comment on above: Result Comment: <100 mg/dl OPTIMAL 100 - 129 mg/dl NEAR OR ABOVE OPTIMAL 130 - 159 mg/dl BORDERLINE HIGH 160 - 189 mg/dl HIGH >190 mg/dl VERY HIGH Performed By: #### B MP, LIPID, ALT #### [facility] [address] [address] [address] Ginger Keane Triglyceride [Mass/Vol] 234 mg/dL Critically high <=150 [facility] Comment on above: Performed By: #### B MP, LIPID, ALT #### [facility] [address] [place] [address] Dr. Ginger Keane VLDL CALC 46.8 mg/dL Normal [facility] Comment on above: Performed By: #### B MP, LIPID, ALT #### [facility] [address] [address] [address] Ginger Keane PROF CHEM 8 (BAS METB)on Anion gap [Moles/Vol] 13.3 mmol/L Normal [facility] Comment on above: Performed By: #### B MP, LIPID, ALT #### [facility] [address] [address] [address] Ginger Keane Calcium [Mass/Vol] 8.7 mg/dL Normal 8.5-10.1 [facility] Comment on above: Performed By: #### B MP, LIPID, ALT #### [facility] [address] [address] [address] Ginger Keane Chloride [Moles/Vol] 102 mmol/L Normal 98-107 [facility] Comment on above: Performed By: #### B MP, LIPID, ALT #### [facility] [address] [address] [address] Ginger Keane CO2 [Moles/Vol] 26.8 mmol/L Normal 21.0-32.0 [facility] Comment on above: Performed By: #### B MP, LIPID, ALT #### [facility] [address] [address] [address] Ginger Keane Creatinine [Mass/Vol] 0.92 mg/dL Normal 0.70-1.30 [facility] Comment on above: Performed By: #### B MP, LIPID, ALT #### [facility] [address] [address] [address] Ginger Keane EGFR-AF SLOVAK >60 Normal >=60 [facility] Comment on above: Performed By: #### B MP, LIPID, ALT #### [facility] [address] [address] [address] Ginger Keane EGFR-NON AF SLOVAK >60 Normal >=60 [facility] Comment on above: Performed By: #### B MP, LIPID, ALT #### [facility] [address] [address] [address] Ginger Keane Glucose [Mass/Vol] 161 mg/dL Critically high 74-106 [facility] Comment on above: Performed By: #### B MP, LIPID, ALT #### [facility] [address] [place] [address] Dr. Ginger Keane Potassium [Moles/Vol] 4.1 mmol/L Normal 3.5-5.1 [facility] Comment on above: Performed By: #### B MP, LIPID, ALT #### [facility] [address] [address] [address] Ginger Keane Sodium [Moles/Vol] 138 mmol/L Normal 136-145 [facility] Comment on above: Performed By: #### B MP, LIPID, ALT #### [facility] [address] [address] [address] Ginger Keane Urea nitrogen [Mass/Vol] 13.0 mg/dL Normal 7.0-18.0 [facility] Comment on above: Performed By: #### B MP, LIPID, ALT #### [facility] [address] [place] [address] Dr. Ginger eKane Urea nitrogen/Creatinine [Mass ratio] 14.1 mg/mg Normal [facility] Comment on above: Performed By: #### B MP, LIPID, ALT #### [facility] [address] [address] [address] [facility] ALT [Catalytic activity/Vol] 26 U/L Normal 16-63 [facility] Comment on above: Performed By: #### B MP, LIPID, ALT #### [facility] [address] [address] [address] Ginger Keane GLYCOHEMOGLOBIN A1Con 2021 ADA RECOMMENDATION SEE BELOW Normal [facility] Comment on above: Result Comment: ADA RECOMMENDED LIMIT 4.0 - 6.0 ADA THERAPEUTIC TARGET < 7.0 ACTION SUGGESTED > 7.0 Performed By: #### D ATA1C #### [facility] [address] [address] [address] Ginger Keane Glucose [Mass/Vol] 146 mg/dL Normal [facility] Comment on above: Performed By: #### D ATA1C #### [facility] [address] [address] [address] Ginger Keane HbA1c (Bld) [Mass fraction] 6.7 % Critically high 4.5 -6.2 [facility] Comment on above: Performed By: #### D ATA1C #### [facility] [address] [address] [address] Ginger Keane Vital Signs Date Time Vital Sign Value Performing Clinician Facility 05-26-2024 13: Body height 180.34 cm [facility] 05-26-2024 13:040 Body mass index (BMI) [Ratio] 28.2 kg/m2 [facility] 05-26-2024 13: Body weight 91.73 kg [facility] 05-26-2024 13:28040 Diastolic blood pressure 64 mm[Hg] [facility] 05-26-2024 13:28040 Heart rate 77 /min [facility] 05-26-2024 13:28040 Systolic blood pressure 122 mm[Hg] [facility] 12-30-2023 11:02-0400 Body height 180.34 cm DO Vernon Ball Work Phone: [facility] 12-30-2023 11:02-0400 Body mass index (BMI) [Ratio] 26.4 kg/m2 DO Vernon Ball Work Phone: [facility] 12-30-2023 11:02-0400 Body weight 85.89 kg DO Vernon Ball Work Phone: [facility] 12-30-2023 11:02-0400 Diastolic blood pressure 72 mm[Hg] DO Vernon Ball Work Phone: [facility] 12-30-2023 11:02-0400 Heart rate 93 /min DO Vernon Ball Work Phone: [facility] 12-30-2023 11:02-0400 Respiratory rate 16 /min DO Vernon Ball Work Phone: [facility] 12-30-2023 11:02-0400 Systolic blood pressure 123 mm[Hg] DO Vernon Ball Work Phone: [facility] 10-20-2023 15:23-0500 Body height 180.34 cm [facility] 10-20-2023 15:23-0500 Body mass index (BMI) [Ratio] 25.5 kg/m2 [facility] 10-20-2023 15:23-0500 Body weight 83.09 kg [facility] 10-20-2023 15:23-0500 Diastolic blood pressure 65 mm[Hg] [facility] 10-20-2023 15:23-0500 Heart rate 99 /min [facility] 10-20-2023 15:23-0500 Respiratory rate 20 /min [facility] 10-20-2023 15:23-0500 Systolic blood pressure 126 mm[Hg] [facility] 10-01-2023 10:00-0500 Body height 180.34 cm Vernon Ball Other [facility] 01-31-2024 10:00-0500 Diastolic blood pressure 70 mm[Hg] Vernon Ball Other [facility] 10-01-2023 10:00-0500 SaO2% (BldA) [Mass fraction] 90 % Vernon Ball Other [facility] [employer] Other 10-01-2023 10:00-0500 Systolic blood pressure 124 mm[Hg] Vernon Ball Other [facility] 08-29-2023 10:00-0500 Body height 180.34 cm Vernon Ball Other [facility] 08-29-2023 10:00-0500 Body mass index (BMI) [Ratio] 25.63 kg/m2 Vernon Ball Other [facility] [employer] Other 08-29-2023 10:00-0500 Body weight 83.37 kg Vernon Ball Other [facility] 08-29-2023 10:00-0500 Diastolic blood pressure 63 mm[Hg] Vernon Ball Other [facility] 08-29-2023 10:00-0500 Respiratory rate 20 /min Vernon Ball Other [facility] [employer] Other 08-29-2023 10:00-0500 SaO2% (BldA) [Mass fraction] 84 % Vernon Ball Other [facility] [employer] Other 08-29-2023 10:00-0500 Systolic blood pressure 109 mm[Hg] Vernon Ball Other [facility] 08-12-2023 11:00-0500 Body height 180.34 cm Vernon Ball Other [facility] 08-12-2023 11:00-0500 Body mass index (BMI) [Ratio] 25.55 kg/m2 Vernon Ball Other [facility] [employer] Other 08-12-2023 11:00-0500 Body weight 83.1 kg Vernon Ball Other [facility] [employer] Other 08-12-2023 11:00-0500 Body weight 83.09 kg [facility] 08-12-2023 11:00-0500 Diastolic blood pressure 88 mm[Hg] Vernon Ball Other [facility] 08-12-2023 11:00-0500 Respiratory rate 20 /min Vernon Ball Other [facility] [employer] Other 08-12-2023 11:00-0500 SaO2% (BldA) [Mass fraction] 94 % Vernon Ball Other [facility] [employer] Other 08-12-2023 11:00-0500 Systolic blood pressure 120 mm[Hg] Vernon Ball Other [facility] 07-10-2023 11:45-0500 Body height 180.34 cm Vernon Ball Other [facility] Other 07-10-2023 11:45-0500 Body mass index (BMI) [Ratio] 26.22 kg/m2 Vernon Ball Other [facility] Other 07-10-2023 11:45-0500 Body weight 85.28 kg Vernon Ball Other [facility] Other 07-10-2023 11:45-0500 Diastolic blood pressure 75 mm[Hg] Vernon Ball Other [facility] Other 07-10-2023 11:45-0500 Respiratory rate 16 /min Vernon Ball Other [facility] Other 07-10-2023 11:45-0500 Systolic blood pressure 129 mm[Hg] Vernon Ball Other [facility] Other 07-04-2023 08:03-0400 Diastolic blood pressure 93 mm[Hg] DO Vernon Ball Work Phone: [facility] 07-04-2023 08:03-0400 Heart rate 89 /min DO Vernon Ball Work Phone: [facility] 07-04-2023 08:03-0400 Respiratory rate 16 /min DO Vernon Ball Work Phone: [facility] 07-04-2023 08:03-0400 SaO2% (BldA) [Mass fraction] 93 % DO Vernon Ball Work Phone: [facility] 07-04-2023 08:03-0400 Systolic blood pressure 140 mm[Hg] DO Vernon Ball Work Phone: [facility] 07-04-2023 06:47-0400 Body height 180.34 cm DO Vernon Ball Work Phone: [facility] 07-04-2023 06:47-0400 Body temperature 98.2 [degF] DO Vernon Ball Work Phone: [facility] 07-04-2023 06:47-0400 Body weight 86.18 kg DO Vernon Ball Work Phone: [facility] 07-02-2023 13:45-0400 Body height 180.34 cm Erickson Nascimento Other [facility] Other 07-02-2023 13:45-0400 Body mass index (BMI) [Ratio] 26.5 kg/m2 Erickson Nascimento Other [facility] Other 07-02-2023 13:45-0400 Body weight 86.18 kg Erickson Nascimento Other [facility] Other 05-20-2023 10:00-0400 Body height 180.34 cm Vernon Smalldeals Other [facility] Other 05-20-2023 10:00-0400 Body mass index (BMI) [Ratio] 26.64 kg/m2 Vernon Ball Other [facility] Other 05-20-2023 10:00-0400 Body weight 86.64 kg Vernon Ball Other [facility] Other 05-20-2023 10:00-0400 Diastolic blood pressure 74 mm[Hg] Vernon Ball Other [facility] Other 05-20-2023 10:00-0400 Respiratory rate 12 /min Vernon Ball Other [facility] Other 05-20-2023 10:00-0400 Systolic blood pressure 117 mm[Hg] Vernon Ball Other [facility] Other 02-17-2023 10:30-0400 Body height 180.34 cm Vernon Ball Other [facility] Other 02-17-2023 10:30-0400 Body mass index (BMI) [Ratio] 27.58 kg/m2 Vernon Ball Other [facility] Other 02-17-2023 10:30-0400 Body weight 89.72 kg Vernon Ball Other [facility] Other 02-17-2023 10:30-0400 Diastolic blood pressure 78 mm[Hg] Vernon Ball Other [facility] Other 02-17-2023 10:30-0400 Respiratory rate 12 /min Vernon Ball Other [facility] Other 02-17-2023 10:30-0400 Systolic blood pressure 128 mm[Hg] Vernon Ball Other [facility] Other 11-18-2022 11:30-0400 Body height 180.34 cm Vernon Ball Other [facility] Other 11-18-2022 11:30-0400 Body mass index (BMI) [Ratio] 27.42 kg/m2 Vernon Ball Other [facility] Other 11-18-2022 11:30-0400 Body weight 89.18 kg Vernon Ball Other [facility] Other 11-18-2022 11:30-0400 Diastolic blood pressure 70 mm[Hg] Vernon Ball Other [facility] Other 11-18-2022 11:30-0400 Respiratory rate 12 /min Vernon Ball Other [facility] Other 11-18-2022 11:30-0400 Systolic blood pressure 122 mm[Hg] Vernon Ball Other [facility] Other Encounters Encounter Date Encounter Type Care Provider Facility Start: 05-26-2024 End: 05-26-2024 ambulatory [facility] Work Phone: Start: 05-26-2024 End: 05-26-2024 Patient encounter procedure [facility] Work Phone: Start: 05-24-2024 Patient encounter procedure [facility] Start: 05-17-2024 End: 05-17-2024 ambulatory CHELA ZARATE Not Available Start: 03-11-2024 Non-patient / Non-visit [facility] [employer] Work Phone: Start: 12-31-2023 End: 12-31-2023 ambulatory Carlos Guzmán Facility:[facility] Start: 12-30-2023 End: 12-30-2023 ambulatory DO Vernon Ball Work Phone: [facility] Work Phone: Start: 12-30-2023 End: 12-30-2023 Patient encounter procedure DO Vernon Greene Work Phone: [facility] Work Phone: Start: 12-29-2023 Non-patient / Non-visit DO Skinny Greene Work Phone: [facility] [employer] Work Phone: Start: 12-22-2023 Non-patient / Non-visit DO Skinny Greene Work Phone: [facility] Work Phone: Start: 12-09-2023 End: 12-09-2023 ambulatory [facility] Facility:[facility] Start: 12-09-2023 End: 12-09-2023 ambulatory DO Vernon Greene Work Phone: [facility] Work Phone: Start: 12-09-2023 End: 12-09-2023 Patient encounter procedure DO Vernon Greene Work Phone: [facility] [address] Work Phone: Start: 11-26-2023 End: 11-26-2023 ambulatory Vernon Greene Other [facility] [employer] Other Start: 11-26-2023 Telephone encounter Vernon Greene [facility] Start: 11-24-2023 End: 11-24-2023 ambulatory Carlos Villalobosholdenfranky Facility:[facility] Start: 11-24-2023 End: 11-24-2023 ambulatory DO Vernon Greene Work Phone: [facility] Work Phone: Start: 11-24-2023 End: 11-24-2023 Patient encounter procedure DO Vernon Greene Work Phone: [facility] [address] Work Phone: Start: 10-28-2023 Non-patient / Non-visit DO Skinny Greene Work Phone: [facility] [employer] Work Phone: Start: 10-20-2023 End: 10-20-2023 ambulatory [facility] Work Phone: Start: 10-20-2023 End: 10-20-2023 Patient encounter procedure [facility] Work Phone: Start: 10-14-2023 Non-patient / Non-visit DO Skinny Greene Work Phone: [facility] Work Phone: Start: 10-07-2023 End: 10-07-2023 ambulatory Vernon Greene Other [facility] Other Start: 10-07-2023 Telephone encounter Vernon KANG [facility] Start: 10-06-2023 End: 10-06-2023 ambulatory Vernon Greene Other [facility] Other Start: 10-06-2023 Telephone encounter Vernon KANG [facility] Start: 10-01-2023 End: 10-01-2023 ambulatory Imad Asaad Other [facility] Other Start: 10-01-2023 Office outpatient vi sit 25 minutes Vernon Greene [facility] Start: 10-01-2023 Telephone encounter Imad Asaad [facility] [employer] Start: 10-01-2023 End: 10-01-2023 Patient encounter procedure [facility] Start: 09-02-2023 End: 09-02-2023 ambulatory Vernon Greene Other [facility] Other Start: 09-02-2023 Telephone encounter Vernon KANG [facility] Start: 08-29-2023 End: 08-29-2023 ambulatory Vernon Greene Other [facility] Other Start: 08-29-2023 Office outpatient vi sit 25 minutes Vernon Greene [facility] Start: 08-29-2023 End: 08-29-2023 Patient encounter procedure [facility] Work Phone: Start: 08-12-2023 End: 08-12-2023 ambulatory Vernon Greene Other [facility] Other Start: 08-12-2023 Transitional care nicole cleary srvc 14 day discharge Vernon Greene [facility] Start: 08-12-2023 End: 08-12-2023 Patient encounter procedure [facility] Work Phone: Start: 08-06-2023 End: 08-06-2023 ambulatory Vernon Greene Other [facility] Other Start: 08-06-2023 Telephone encounter Vernon Greene [facility] Start: 08-01-2023 End: 08-01-2023 ambulatory Vernon Greene Other [facility] Other Start: 08-01-2023 Telephone encounter Vernon Greene [facility] Start: 07-30-2023 End: 07-30-2023 ambulatory Vernon Greene Other [facility] Other Start: 07-30-2023 Telephone encounter Vernon KANG [facility] Start: 07-16-2023 End: 07-16-2023 ambulatory Navneet Puga Other [facility] Other Start: 07-16-2023 Telephone encounter Navneet Ramires [employer] Start: 07-13-2023 End: 07-13-2023 ambulatory Vernon Greene Other [facility] Other Start: 07-13-2023 Telephone encounter Vernon Greene [facility] Start: 07-10-2023 End: 07-10-2023 ambulatory Vernon Greene Other [facility] Other Start: 07-10-2023 Office outpatient vi sit 25 minutes Vernon Greene [facility] Start: 07-10-2023 Telephone encounter Vernon Greene [facility] Start: 07-04-2023 Telephone encounter Vernon Greene [facility] Start: 07-04-2023 End: 07-04-2023 ambulatory Erickson Nascimento Facility:[facility] Start: 07-04-2023 End: 07-04-2023 Admission to same day surgery center DO Vernon Ball Work Phone: [facility] [place] Start: 07-04-2023 End: 07-04-2023 ambulatory DO Vernon Ball Work Phone: [facility] Work Phone: Start: 07-02-2023 End: 07-02-2023 ambulatory Erickson Nascimento Other [facility] Other Start: 07-02-2023 Office outpatient vi sit 25 minutes Erickson Nascimento [facility] Start: 05-21-2023 End: 05-21-2023 ambulatory Vernon Greene Other [facility] Other Start: 05-21-2023 Telephone encounter Vernon Greene [facility] Start: 05-20-2023 End: 05-20-2023 ambulatory Vernon Greene Other [facility] Other Start: 05-20-2023 Patient encounter procedure Vernon Greene [facility] Start: 02-27-2023 End: 02-27-2023 ambulatory Erickson Nascimento Other [facility] Other Start: 02-27-2023 Telephone encounter Erickson KANG [facility] Start: 02-26-2023 End: 02-26-2023 ambulatory Erickson Nascimento Facility:[facility] Start: 02-26-2023 End: 02-26-2023 Patient encounter procedure DO Erickson Nascimento Work Phone: [facility] Start: 02-26-2023 End: 02-26-2023 ambulatory DO Erickson Nascimento Work Phone: [facility] Work Phone: Start: 02-26-2023 Office outpatient ne w 45 minutes Erickson Pily [facility] Start: 02-17-2023 End: 02-17-2023 ambulatory Vernon Ball Other [facility] Other Start: 02-17-2023 Office outpatient vi sit 25 minutes Vernon Ball [facility] Start: 01-09-2023 End: 01-09-2023 ambulatory Vernon Ball Other [facility] Other Start: 01-09-2023 Telephone encounter Vernon Ball [facility] Start: 12-24-2022 End: 12-24-2022 ambulatory Vernon Ball Other [facility] Other Start: 12-24-2022 Telephone encounter Vernon Ball [facility] Start: 11-26-2022 End: 11-26-2022 ambulatory Vernon Ball Other [facility] Other Start: 11-26-2022 Telephone encounter Vernon Ball [facility] Start: 11-25-2022 End: 11-26-2022 ambulatory VERNON BALL Facility:[facility] Start: 11-18-2022 End: 11-18-2022 ambulatory Vernon Ball Other [facility] Other Start: 11-18-2022 Office outpatient vi sit 25 minutes Vernon Ball [facility] Start: 11-15-2022 End: 11-16-[address] NONE LISTED REQUEST Facility:[facility] Start: 11-07-2022 End: 11-07-2022 ambulatory Vernon Ball Other [facility] Other Start: 11-07-2022 Telephone encounter Vernon Greene [...] Comment on above: Performed By: #### P [facility] #### [facility] [address] [place] [address] Dr. Ginger Keane Plan of Treatment Date Care Activity Detail Author Start: 11-24-2023 Hemolytic complement CH50 level [facility] Start: 11-24-2023 Hepatitis B core ant ibody measurement [facility] Start: 11-24-2023 [facility] Start: 10-20-2023 Patient referral [facility] Work Phone: Start: 07-04-2023 [facility] 24 hour urine measurement [facility] Adenosine monophosph ate.cyclic [Moles/volume] in Serum or Plasma [facility] Albumin [Mass/volume ] in Serum or Plasma [facility] Albumin/Globulin ratio [facility] Complement C3 [Mass/ volume] in Serum or Plasma [facility] Complement C4 [Mass/ volume] in Serum or Plasma [facility] Comprehensive metabo lic 1999 panel - Serum or Plasma [facility] Comprehensive metabo lic 1999 panel - Serum or Plasma [facility] Electrophoresis: [id number] [facility] Electrophoresis: [id number] [facility] Electrophoresis: beta-globulin [facility] Electrophoresis: gamma globulin [facility] Globulin [Mass/volume] in Serum [facility] Hepatitis B virus elizabeth rface Ab [Presence] in Serum [facility] Hepatitis B virus elizabeth rface Ag [Presence] in Serum or Plasma by Immunoassay [facility] Hepatitis C virus Ig G Ab [Presence] in Serum or Plasma by Immunoassay [facility] Homogenous nuclear A b pattern [Titer] in Serum [facility] IgA [Mass/volume] in Serum or Plasma [facility] IgG [Mass/volume] in Serum or Plasma [facility] IgM [Mass/volume] in Serum or Plasma [facility] Immunofixation for Urine [facility] [place] light chains.f ree [Mass/volume] in Serum [facility] [place] light chains.f ree/Lambda light chains.free [Mass Ratio] in Serum [facility] Lambda light chains. free [Mass/volume] in Serum or Plasma [facility] Measurement of monoc lonal protein concentration [facility] Microalbumin [Mass/volume] in Urine [facility] Myeloperoxidase Ab [ Units/volume] in Serum by Immunoassay [facility] Neutrophil cytoplasm ic Ab.classic [Titer] in Serum by Immunofluorescence [facility] Neutrophil cytoplasm ic Ab.perinuclear.atypical [Titer] in Serum by Immunofluorescence [facility] Nuclear Ab [Titer] in Serum [facility] P-ANCA measurement [facility] Patient referral [facility] Work Phone: Protein [Mass/volume ] in Serum or Plasma [facility] Protein [Mass/volume] in Urine [facility] Proteinase 3 Ab [Uni ts/volume] in Serum by Immunoassay [facility] Rheumatoid factor [U nits/volume] in Serum or Plasma [facility] Serum immunofixation [facility] Immunizations Immunization Date Immunization Notes Care Provider Izabel ernandez 05-25-2018 pneumococcal polysaccharide vaccine, 23 valent Vernon Greene Other [facility] [facility]2017 diphtheria, tetanus toxoids and acellular pertussis vaccine, unspecified formulation Vernon Greene Other [facility] 07-01-2017 pneumococcal conjuga te vaccine, 13 valent Vernon Greene Other [facility] Payers Date Payer Category Payer Medicare [id number] 2. [id number] 1958 Self-pay 1950 Unknown [id number] 2.16.84 0.1.838360.3.579.2.593 1950 Unknown [id number] 2.16.84 0.1.395026.3.579.2.593 1950 Unknown [id number] 2.16.84 0.1.574075.3.579.2.1259 1950 Unknown [id number] 2.16.84 0.1.276119.3.579.2.1259 Unknown [id number] 2.16.84 0.1.494516.3.579.2.593 Unknown [id number] 2.16.84 0.1.222498.3.579.2.593 Unknown [id number] 2.16.84 0.1.354404.3.579.2.593 Unknown [id number] 2.16.8 40.1.833941.3.579.2.531 Unknown [id number] 2.16.8 40.1.850183.3.579.2.531 Unknown [id number] 2.16.8 40.1.615876.3.579.2.531 Unknown [id number] 2.16.8 40.1.527111.3.579.2.531 Unknown [id number] 2.16.8 40.1.276646.3.579.2.531 Social History Date Type Detail Facility Sex Assigned At [facility] Other Start: 1950 Sex Assigned At Male F [facility] Start: 07-04-2023 End: 07-04-2023 Tobacco smoking status NHIS Ex-smoker (finding) [facility] Goals Date Patient Goal Desired Activity /State Clinical Notes 11-18-2022 to 10-06-2023 Note Date & Type Note Facility 10-06-2023 Evaluation note Encounter Date Diagnosis Assessment Notes Oct, Interstitial lung disease (ICD-10 - J84.9) Oct, Hypoxia (ICD-10 - R09.02) Oct, Nicotine dependence, cigarettes, in remission (ICD-10 - F17.211) Age started 17 1 ppd Age quit 52 [facility] Other 01-31-2024 Evaluation note* Encounter Date Diagnosis [...] as needed. CXR, f/u from COVID infection [facility] Other 12-29-2023 Evaluation note* Encounter Date Diagnosis [...] 1 ppd Age quit 52 Continue abstinence [facility] Other 12-12-2023 Evaluation note* Encounter Date Diagnosis [...] and hypoxia. MDI and oxygen for now. [facility] Other 12-01-2023 Evaluation note* Encounter Date Diagnosis Assessment Notes Treatment Notes Treatment Clinical Notes Aug, Weight loss (ICD-10 - R63.4) [facility] Other 11-09-2023 Evaluation note* Encounter Date Diagnosis [...] or bowel habits. No melena or hematochezia [facility] Other 11-01-2023 Evaluation note* Encounter Date Diagnosis [...] poor healing. 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 I have [...] Jul, Elbow mass, left (ICD-10 - R22.32) [facility] Other 09-19-2023 Evaluation note* Encounter Date Diagnosis [...] PSA (prostate specific antigen) (ICD-10 - Z12.5) [facility] Other 06-28-2023 Evaluation note* Encounter Date Diagnosis [...] as documented in the electronic medical record. [facility] Other 06-19-2023 Evaluation note* Encounter Date Diagnosis [...] wks. Nontender and mobile. Refer to Orthopedics [facility] Other 03-27-2023 NotePROCEDURE: XR KNEE LT 3V [...] Electronically authenticated by: VINNY MURILLO Date: 2022-11-25 10:55[facility]03-20-2023 Evaluation note* Encounter Date Diagnosis Assessment [...] Initiate PPI and if no improvement, EGD [facility] [employer] Other Evaluation [facility]No [facility] [employer] Other Evaluation noteNo assessment information available [facility] Work Phone: evaluation note* Diagnosis Onset Date Resolution Status Inflammatory polyarthritis a cute [facility] Work Phone: evaluation note* Diagnosis Onset Date Resolution Status ASHD (arteriosclerotic heart disease) acute [id number] acute Hypoxia acute ILD (interstitial lung disease) acute Inflammatory polyarthritis a cute Nicotine dependence, cigarettes, in remission acute Sinus tachycardia acute [facility] Work Phone: evaluation note* Diagnosis [...] Type 2 diabetes mellitus with hyperglycemia acute [facility] Work Phone: evaluation note* Diagnosis Onset Date Resolution Status ASHD (arteriosclerotic heart disease) acute Hypercholesterolemia acute Hypoxia acute ILD (interstitial lung disease) acute Medicare annual wellness visit, subsequent acute Mucopurulent chronic bronchitis acute Nicotine dependence, cigarettes, in remission acute 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 acute Screening PSA (prostate specific antigen) acute Type 2 diabetes mellitus with hyperglycemia acute [facility] Work Phone: Hisrgbl general Narrative - Reported* Type Description Date [...] long-term current use of insulin Surgical History [facility] PTCA/STENT 2002 Surgical History [facility] 2006 Hospitalization History SEE SURGICAL [facility] Other Histosu general Narrative - Reported* Type Description Date [...] long-term current use of insulin Surgical History [facility] PTCA/STENT 2002 Surgical History [facility] 2006 Surgical History Excision left elbow mass 3 Hospitalization History SEE SURGICAL [facility] Other Hospital Discharge instructions Additional Instructions Orthopedic [...] prescribed. You may take Motrin or Tylenol [id number] if you wish. Follow-up in [address] [facility] [address] [place] [id number] [phone] Work Phone: Reason for referral (narrative)* Reason *Waiting for appt Referral for recurrent left Olecranon bursa and SC nodule Diagnosis 1 Olecranon bursitis o f left elbow (M70.22) Diagnosis 2 Subcutaneous nodule (R22.9) Referral Organization [facility] [employer] Referring Provider First Name Vernon Referring Provider Last Name Jc Referring Provider Specialty Internal Me diclindsey Referred Organization [facility] Referred Provider Erickson Nascimento Referred Address [address] [place] Referred Provider Specialty Orthopedic S urgery Referral [...] 02/17/2023 11:21:37 AM >received today, sent P2P [facility] Other Reason for referral (narrative)* Reason Referral for screeni ng colonoscopy and EGD Diagnosis 1 Unexplained weight l oss (R63.4) Diagnosis 2 Epigastric discomfor t (R10.13) Diagnosis 3 Serum lipase elevati on (R74.8) Diagnosis 4 Colon cancer screeni ng (Z12.11) Referral Organization [facility] [employer] Referring Provider First Name Vernon Referring Provider Last Name Jc Referring Provider Specialty Internal Ri dicine Referred Organization [facility] Referred Provider Rochelle Woodard Referred Address [address] [place], [place],[address] Referred Provider Specialty Gastroentero logy Referral Priority [...] be done within the next 2-3 wks. [facility] Other Summary Purpose Family History Relationship Condition [...] for Visit ASHD (arteriosclerot ic heart disease) [id number] Hypoxia ILD (interstitial lung disease) Inflammatory polyarthritis Nicotine dependence, cigarettes, in remission Sinus tachycardia Chief Complaint 4 Month Follow Up 1 week M35.9;Z11.59;Z79.899;D89.2 Hand pain Knee Pain Reason for Visit ASHD (arteriosclerot ic heart disease) [id number] Hypoxia ILD (interstitial lung disease) Inflammatory polyarthritis [...] CREATED AUTHOR AUTHOR'S ORGANIZ ATION 01/10/2024 [facility] DATE CREATED AUTHOR AUTHOR'S ORGANIZ ATION 05/23/2024 [facility] EPIC Care Teams (unrecognized sec [...] BE BASED ON THE PRIMARY CLINICAL RECORDS. [facility]. provides no warranty or guarantee of the accuracy or completeness of information in this document.
[2024-07-15 14:24] LABS: Basophils Absolute Auto 0.1 10^3/uL (0.0-0.1); Basophils Percent Auto 0.7 % (0.2-2.0); Eosinophils Absolute Auto 0.2 10^3/uL (0.0-0.7); Eosinophils Percent Auto 1.8 % (0.9-7.0); Hematocrit 39.9 % (42.0-54.0); Hemoglobin 14.1 g/dL (14.0-18.0); Immature Granulocytes Abs Auto 0.02 10^3/uL (0.00-0.03); Immature Granulocytes Pct Auto 0.2 % (0.0-0.5); Lymphocytes Absolute Auto 2.4 10^3/uL (1.2-3.8); Lymphocytes Percent Auto 27.1 % (20.5-60.0); Mean Corpuscular HGB Conc 35.3 g/dL (29.9-35.2); Mean Corpuscular Volume 93.4 fL (80.0-94.0); Mean Platelet Volume 9.6 fL (9.5-13.5); Monocytes Absolute Auto 0.9 10^3/uL (0.3-0.8); Monocytes Percent Auto 9.5 % (1.7-12.0); Neutrophils Absolute Auto 5.4 10^3/uL (1.4-6.5); Neutrophils Percent Auto 60.7 % (43.0-75.0); Platelet Count 234 10^3/uL (150-450); Red Blood Count 4.27 10^6/uL (4.70-6.10); Red Cell Distribution Width 13.4 % (11.0-15.0); White Blood Count 8.9 10^3/uL (4.0-11.0)
== END 2024-07-15 13:49 | disposition home or self-care (01) ==
LOC: LAB 13:50
PROVIDERS: PCP Internal Medicine; Visit Provider Internal Medicine Rheumatology
DX: Z51.81 Encounter for therapeutic drug level monitoring (principal)
CPT/HCPCS: 36415; 85025; 85652

== ENCOUNTER 2024-08-03 13:50 | Outpatient (OUT) | payer MEDICARE, SELFPAY ==
--- OUTSIDE RECORDS SUMMARY | 2024-08-03 14:05 | XMS_ITS | CCD ---
Author Organization [facility] CliniSynh Care Team Providers Care Technical Agronomist Name Role Phone Vernon Greene Unavailable VERNON [...] Provider DO Vernon Greene Primary Care Provider [phone] Navneet Puga Unavailable Asaad, Imad Unavailable DO Vernon Greene Primary Care Provider [phone] MD Carlos Guzmán Attending Provider Carlos Guzmán [...] SUGAR ONCE EVERY DAY for 90 Active [id number] 200 actuat albuterol 0.09 mg/actuat metered dose [...] 12:00am Start: 11-18-2022 take 1 capsule by [facility] once daily Omeprazole 40 MG 1 capsule [...] Coronary arteriosclerosis; Translations: [Atherosclerotic heart disease of [place] coronary artery without angina pectoris] Chronic Diabetes [...] sources) H/O: high risk medication; Translations: [Other skilled nursing (current) drug therapy] Episodic Other aftercare (2 sources) Other skilled nursing (current) drug therapy; Translations: [OTH FUSE COILER CURRENT DRUG THERAPY] Onset: 05-19-2022 Episodic Other [...] (Bld) [Mass/Vol] 13.7 g/dL Low 14.0-18. 0 [facility] QuantiFERON TB Goldon 2023 QFTB Criteria Normal . [facility] Comment on above: Result [...] TB Ag Value 0.02 Normal . [facility] Comment on above: Performed By: #### Q UANT TB ####[facility] , Quant TB Gold Plus Negative Normal Negative [facility] Comment on above: Result [...] interferon gamma. Chemiluminescence immunoassay methodology Performed at: [email or web address] [address] [id number] Field Reporter: Krunal Nichols PhD, Phone: [phone] PERFORMED BY: [place] [address] PATHOLOGIST [employer] SETTER ADELFO RAMIREZ M.D. Performed By: #### Q UANT TB ####[facility] , Quant TB2 Ag Value 0.02 Normal . [facility] Comment on above: Performed By: #### Q UANT TB ####[facility] , Quantiferon Nil Value 0.02 Normal . [facility] Comment on above: Performed By: #### Q UANT TB ####[facility] , Quantiferon TB Mitogen >10.00 Normal . [facility] Comment on above: Performed By: #### Q UANT TB ####[facility] , Glucose mean value [Mass/vol ume] in Blood Estimated from glycated hemoglobinon 12-29-2023 Average glucose Estimated from glycated hemoglobin (Bld) [Mass/Vol] 134 mg/dL [facility] - Hematology and Cell countson 12-29-2023 HbA1c (Bld) [Mass fraction] 6.3 % 4.5-6.2 [facility] Comment on above: ADA RECOMMENDED LIMI T 4.0 - 6.0ADA THERAPEUTIC TARGET < 7.0ACTION SUGGESTED> 7.0 XR knee BI 2Von 12-09-2023 XR knee BI 2V [facility] Main [place] [id number] XRay Report Signed Patient: Mariano Gutierrez MR#: [id number] : 1950 Acct:[id number] Age/Sex: 73 / M ADM Date: 12/09/23 Loc: ICXD Room: Type: [facility] Attending Dr: Carlos Guzmán MD Copies to: Carlos Guzmán MD Ordering Provider: Carlos Guzmán MD Date of Service: 12/09/23 XR/XR hand BI 2V: HAND PAIN ([id number]) XR/XR knee BI 2V: KNEE PAIN 2 [...] Gregory Schmidt M.D.12/09/2023 4:00 PM Dictation Location: [place] [address] Transcribed By: [facility] 12/09/23 1600 Dictated By: Gregory Schmidt DO 12/09/23 1556 Signed By: 12/09/23 1600 Normal [facility] VANESSA Antinuclear Antibodieson 11-24-2023 Antinuclear Abs, IFA Positive Critically abnormal . [facility] Comment on above: Result Comment: Nega tive <1:80 Borderline 1:80 Positive >1:80 Performed By: #### K APPA, ANCA PROF, C4, CH50, HBSAB, HBCAB, C3, HCV RX PCR, HBSAG, VANESSA ####[facility] , Homogeneous Pattern 1:640 High . [facility] Comment on above: Result Comment: ICAP nomenclature: [id number] Performed By: #### K APPA, ANCA PROF, C4, CH50, HBSAB, HBCAB, C3, HCV RX PCR, HBSAG, VANESSA ####[facility] , Note 1 Normal . [facility] Comment on above: Result Comment: Prashant bhupendra Potential Disease Association Homogeneous Systemic Lupus Erythematosus, Drug Induced Systemic Lupus Erythematosus, Chronic Autoimmune hepatitis, Juvenile Idiopathic Arthritis Speckled Sjogren Syndrome, Systemic Lupus Erythematosus, Subacute Cutaneous Lupus, Lupus, Congenital Heart Block, Mixed Connective Tissue Disease, Scleroderma-diffuse, Scleroderma-Autoimmune Myositis Overlap Syndrome, Systemic Lupus Ajxettbqqoztx-Kryakuqwskd-Fajqxoayem Myositis Overlap Syndrome, Systemic Autoimmune Rheumatic Disease, [...] Cytopenias, Linear Scleroderma, Antiphospholipid Syndrome Performed at: [address] [id number] Field Reporter: Krunal Nichols PhD, Phone: [phone] Performed By: #### K APPA, ANCA PROF, C4, CH50, HBSAB, HBCAB, C3, HCV RX PCR, HBSAG, VANESSA ####[facility] , ANCA Profile (ANCA+MPO+PR3)o n 11-24-2023 Antimyeloperoxidase (MPO) Abs 1.8 High 0.0-0.9 [facility] Comment on above: Performed By: #### K APPA, ANCA PROF, C4, CH50, HBSAB, HBCAB, C3, HCV RX PCR, HBSAG, VANESSA ####[facility] , Atypical pANCA <1:20 Normal Neg:<1:20 [facility] Comment on above: Result Comment: The atypical pANCA pattern has been observed in a significant percentage of patients with ulcerative colitis, primary sclerosing cholangitis and autoimmune hepatitis. Performed at: [address] [id number] Field Reporter: Blanca Olmedo MD, Phone: [phone] Performed at: [address] [id number] Field Reporter: Krunal Nichols PhD, Phone: [phone] Performed By: #### K APPA, ANCA PROF, C4, CH50, HBSAB, HBCAB, C3, HCV RX PCR, HBSAG, VANESSA ####[facility] , Cytoplasmic (C-ANCA) <1:20 Normal Neg:<1:20 [facility] Comment on above: Performed By: #### K APPA, ANCA PROF, C4, CH50, HBSAB, HBCAB, C3, HCV RX PCR, HBSAG, VANESSA ####[facility] , Perinuclear (P-ANCA) <1:20 Normal Neg:<1:20 [facility] Comment on above: Result Comment: The presence of positive fluorescence exhibiting P-ANCA or C-ANCA patterns alone is not specific for the diagnosis of Staci's Granulomatosis (WG) or microscopic polyangiitis. Decisions about treatment should not be based solely on ANCA IFA results. The International ANCA Group Consensus recommends follow up testing of positive sera with both [place]- 3 and MPO-ANCA enzyme immunoassays. As many as 5% serum samples are positive only by EIA. Ref. AM J Clin Pathol 1999;111:507-513. Performed By: #### K APPA, ANCA PROF, C4, CH50, HBSAB, HBCAB, C3, HCV RX PCR, HBSAG, VANESSA ####[facility] , Proteinase 3 (PR3) Antibodies <0.2 Normal 0.0-0.9 [facility] Comment on above: Result Comment: PERF ORMED BY: [facility] [address] [place] [address] PATHOLOGIST [employer] SETTER ADELFO RAMIREZ M.D. Performed By: #### K APPA, ANCA PROF, C4, CH50, HBSAB, HBCAB, C3, HCV RX PCR, HBSAG, VANESSA ####[facility] , Alanine aminotransferase [En zymatic activity/volume] in Serum or PlasmaOrdered By: Carlos Guzmán on 11-24-2023 ALT [Catalytic activity/Vol] 11 U/L [facility] Albumin [Mass/volume] in Ser um or PlasmaOrdered By: Carlos Guzmán on 11-24-2023 Albumin [Mass/Vol] 3.5 g/dL 2.9-4.4 [facility] Albumin [Mass/volume] in Ser um or Plasma by Bromocresol green (BCG) dye binding methoOrdered By: Carlos Guzmán on 11-24-2023 Albumin BCG dye [Mass/Vol] 3.8 g/dL 3.5-5.7 [facility] Albumin/Protein.total in 24 hour Urine by ElectrophoresisOrdered By: Carlos Guzmán on 11-24-2023 Albumin Elph (24H U) [Mass fraction] 50.7 % . [facility] Alkaline phosphatase [Enzyma tic activity/volume] in Serum or PlasmaOrdered By: Carlos Guzmán on 11-24-2023 ALP [Catalytic activity/Vol] 98 U/L 34-104 [facility] Aspartate aminotransferase [ Enzymatic activity/volume] in Serum or PlasmaOrdered By: Carlos Guzmán on 11-24-2023 AST [Catalytic activity/Vol] 15 U/L 13-39 [facility] Automated erythrocytes count in urine sediment (number/area)Ordered By: Carlos Guzmán on 11-24-2023 RBC Auto (Urine sed) [#/Area] None seen [HPF] 0-4 [facility] Automated leukocytes count i n urine sediment (number/area)Ordered By: Carlos Guzmán on 11-24-2023 WBC Auto (Urine sed) [#/Area] 0-1 [HPF] 0-4 [facility] Basophils Auto (Bld) [#/Vol] Ordered By: Carlos Guzmán on 11-24-2023 Basophils (Bld) [#/Vol] 0.1 10*3/uL 0.0-0.2 [facility] Basophils/100 WBC Auto (Bld) Ordered By: Carlos Guzmán on 11-24-2023 Basophils/100 WBC (Bld) 1.1 % . [facility] Bilirubin Test strip Ql (U)O rdered By: Carlos Guzmán on 11-24-2023 Bilirubin Ql (U) Negative Negative [facility] Bilirubin.total [Mass/volume ] in Serum or PlasmaOrdered By: Carlos Guzmán on 11-24-2023 Bilirubin [Mass/Vol] 0.6 mg/dL 0.3-1.0 [facility] C reactive protein [Mass/vol ume] in Serum or PlasmaOrdered By: Carlos Guzmán on 11-24-2023 CRP [Mass/Vol] 0.6 mg/dL 0.0-0.5 [facility] C-Reactive Proteinon 024 C-Reactive Protein 0.6 mg/dL High 0.0-0.5 [facility] Comment on above: Result Comment: PERF ORMED BY: [facility] [address] [place] [address] PATHOLOGIST [employer]TER ADELFO RAMIREZ M.D. Performed By: #### I FE,URINE, SVETLANA SERUM, UPE RAND, SPE #### [facility] , #### ESR, ADDONUAPLUS, CRP, CBC, CMP #### [facility] [address] Calcium [Mass/volume] in Ser um or PlasmaOrdered By: Carlos Guzmán on 11-24-2023 Calcium [Mass/Vol] 9.4 mg/dL 8.6-10.3 [facility] Carbon dioxide, total [Moles /volume] in Serum or PlasmaOrdered By: Carlos Guzmán on 11-24-2023 CO2 [Moles/Vol] 28.5 mmol/L 21.0-31.0 [facility] Chloride [Moles/volume] in S lucila or PlasmaOrdered By: Carlos Guzmán on 11-24-2023 Chloride [Moles/Vol] 99 mmol/L 98-107 [facility] Color Auto (U)Ordered By: Elvia Guzmán on 11-24-2023 Color (U) Yellow Yellow [facility] Complement C3on 11-24-2023 Complement C3 135 mg/dL Normal 82-167 [facility] Comment on above: Result Comment: Perf ormed at: - [facility] [address] [id number] Field Reporter: Krunal Nichols PhD, Phone: [phone] Performed By: #### K APPA, ANCA PROF, C4, CH50, HBSAB, HBCAB, C3, HCV RX PCR, HBSAG, VANESSA ####[facility] , Complement C4on 11-24-2023 Complement C4 10 mg/dL Low 12-38 [facility] Comment on above: Performed By: #### K APPA, ANCA PROF, C4, CH50, HBSAB, HBCAB, C3, HCV RX PCR, HBSAG, VANESSA ####[facility] , Complement Total (CH50)on Complement Total (CH50) 51 Normal >41 [facility] Comment on above: Result [...] of range values. Performed at: - [facility] [address] [id number] Field Reporter: Krunal Nichols PhD, Phone: [phone] PERFORMED BY: [place] [address] PATHOLOGIST [employer]TER ADELFO RAMIREZ M.D. Performed By: #### K APPA, ANCA PROF, C4, CH50, HBSAB, HBCAB, C3, HCV RX PCR, HBSAG, VANESSA ####[facility] , Complete Blood Count Auto Di ffon 11-24-2023 Basophils (Bld) [#/Vol] 0.1 10*3/uL Normal 0.0-0.2 [facility] Comment on above: Performed By: #### I FE,URINE, SVETLANA SERUM, UPE RAND, SPE #### [facility] , #### ESR, ADDONUAPLUS, CRP, CBC, CMP #### [facility] [address] [place] [address] Basophils/100 WBC (Bld) 1.1 % Normal . [facility] Comment on above: Performed By: #### I FE,URINE, SVETLANA SERUM, UPE RAND, SPE #### [facility] , #### ESR, ADDONUAPLUS, CRP, CBC, CMP #### [facility] [address] [place] [address] Eosinophils (Bld) [#/Vol] 0.2 10*3/uL Normal 0.0-0.45 [facility] Comment on above: Performed By: #### I FE,URINE, SVETLANA SERUM, UPE RAND, SPE #### [facility] , #### ESR, ADDONUAPLUS, CRP, CBC, CMP #### [address] Eosinophils/100 WBC (Bld) 2.0 % Normal . [facility] Comment on above: Performed By: #### I FE,URINE, SVETLANA SERUM, UPE RAND, SPE #### [facility] , #### ESR, ADDONUAPLUS, CRP, CBC, CMP #### [address] Erythrocyte distribution width (RBC) [Ratio] 15.0 % High 12.0-14.8 [facility] Comment on above: Performed By: #### I FE,URINE, SVETLANA SERUM, UPE RAND, SPE #### [facility] , #### ESR, ADDONUAPLUS, CRP, CBC, CMP #### [address] Hematocrit (Bld) [Volume fraction] 38.8 % Normal 38.8-50.0 [facility] Comment on above: Performed By: #### I FE,URINE, SVETLANA SERUM, UPE RAND, SPE #### [facility] , #### ESR, ADDONUAPLUS, CRP, CBC, CMP #### [address] Hemoglobin (Bld) [Mass/Vol] 13.3 g/dL Normal 13.0-17. 0 [facility] Comment on above: Performed By: #### I FE,URINE, SVETLANA SERUM, UPE RAND, SPE #### [facility] , #### ESR, ADDONUAPLUS, CRP, CBC, CMP #### [address] Lymphocytes (Bld) [#/Vol] 2.5 10*3/uL Normal 1.00-4.8 [facility] Comment on above: Performed By: #### I FE,URINE, SVETLANA SERUM, UPE RAND, SPE #### [facility] , #### ESR, ADDONUAPLUS, CRP, CBC, CMP #### [address] Lymphocytes/100 WBC (Bld) 28.6 % Normal . [facility] Comment on above: Performed By: #### I FE,URINE, SVETLANA SERUM, UPE RAND, SPE #### [facility] , #### ESR, ADDONUAPLUS, CRP, CBC, CMP #### [address] MCH (RBC) [Entitic mass] 30.0 pg Normal 27.5-35.2 [facility] Comment on above: Performed By: #### I FE,URINE, SVETLANA SERUM, UPE RAND, SPE #### [facility] , #### ESR, ADDONUAPLUS, CRP, CBC, CMP #### [address] MCV (RBC) [Entitic vol] 87.1 fL Normal 83.5-101 [facility] Comment on above: Performed By: #### I FE,URINE, SVETLANA SERUM, UPE RAND, SPE #### [facility] , #### ESR, ADDONUAPLUS, CRP, CBC, CMP #### [address] Mean Corpuscular HGB Conc 34.4 g/dL Normal 32.5-35.6 [facility] Comment on above: Performed By: #### I FE,URINE, SVETLANA SERUM, UPE RAND, SPE #### [facility] , #### ESR, ADDONUAPLUS, CRP, CBC, CMP #### [address] Monocytes (Bld) [#/Vol] 0.7 10*3/uL Normal 0.0-0.8 [facility] Comment on above: Performed By: #### I FE,URINE, SVETLANA SERUM, UPE RAND, SPE #### [facility] , #### ESR, ADDONUAPLUS, CRP, CBC, CMP #### [address] Monocytes/100 WBC (Bld) 7.8 % Normal . [facility] Comment on above: Performed By: #### I FE,URINE, SVETLANA SERUM, UPE RAND, SPE #### [facility] , #### ESR, ADDONUAPLUS, CRP, CBC, CMP #### [address] Neutrophils (Bld) [#/Vol] 5.4 10*3/uL Normal 1.8-7.7 [facility] Comment on above: Performed By: #### I FE,URINE, SVETLANA SERUM, UPE RAND, SPE #### [facility] , #### ESR, ADDONUAPLUS, CRP, CBC, CMP #### [address] Neutrophils/100 WBC (Bld) 60.5 % Normal . [facility] Comment on above: Performed By: #### I FE,URINE, SVETLANA SERUM, UPE RAND, SPE #### [facility] , #### ESR, ADDONUAPLUS, CRP, CBC, CMP #### [place] [address] [place] NRBC% 0.0 /100{WBC} Normal 0-0.5 [facility] Comment on above: Performed By: #### I FE,URINE, SVETLANA SERUM, UPE RAND, SPE #### [facility] , #### ESR, ADDONUAPLUS, CRP, CBC, CMP #### [address] Platelet mean volume (Bld) [Entitic vol] 7.9 fL Normal 6.6-10.1 [facility] Comment on above: Performed By: #### I FE,URINE, SVETLANA SERUM, UPE RAND, SPE #### [facility] , #### ESR, ADDONUAPLUS, CRP, CBC, CMP #### [address] Platelets (Bld) [#/Vol] 369 10*3/uL Normal 150-450 [facility] Comment on above: Performed By: #### I FE,URINE, SVETLANA SERUM, UPE RAND, SPE #### [facility] , #### ESR, ADDONUAPLUS, CRP, CBC, CMP #### [address] RBC (Bld) [#/Vol] 4.45 10*6/uL Normal 3.90-5.60 [facility] Comment on above: Performed By: #### I FE,URINE, SVETLANA SERUM, UPE RAND, SPE #### [facility] , #### ESR, ADDONUAPLUS, CRP, CBC, CMP #### [address] WBC (Bld) [#/Vol] 8.9 10*3/uL Normal 4.1-10.5 [facility] Comment on above: Performed By: #### I FE,URINE, SVETLANA SERUM, UPE RAND, SPE #### [facility] , #### ESR, ADDONUAPLUS, CRP, CBC, CMP #### [facility] [address] [place] [address] Comprehensive Metabolic Pane eduard 11-24-2023 Albumin [Mass/Vol] 3.8 g/dL Normal 3.5-5.7 [facility] Comment on above: Performed By: #### I FE,URINE, SVETLANA SERUM, UPE RAND, SPE #### [facility] , #### ESR, ADDONUAPLUS, CRP, CBC, CMP #### [address] Albumin/Globulin [Mass ratio] 0.9 {ratio} Normal [facility] Comment on above: Performed By: #### I FE,URINE, SVETLANA SERUM, UPE RAND, SPE #### [facility] , #### ESR, ADDONUAPLUS, CRP, CBC, CMP #### [address] ALP [Catalytic activity/Vol] 98 U/L Normal 34-104 [facility] Comment on above: Performed By: #### I FE,URINE, SVETLANA SERUM, UPE RAND, SPE #### [facility] , #### ESR, ADDONUAPLUS, CRP, CBC, CMP #### [address] ALT [Catalytic activity/Vol] 11 U/L Normal 7-52 [facility] Comment on above: Performed By: #### I FE,URINE, SVETLANA SERUM, UPE RAND, SPE #### [facility] , #### ESR, ADDONUAPLUS, CRP, CBC, CMP #### [address] Anion gap [Moles/Vol] 14.8 mmol/L Normal 6.0-15.0 [facility] Comment on above: Performed By: #### I FE,URINE, SVETLANA SERUM, UPE RAND, SPE #### [facility] , #### ESR, ADDONUAPLUS, CRP, CBC, CMP #### [address] AST [Catalytic activity/Vol] 15 U/L Normal 13-39 [facility] Comment on above: Performed By: #### I FE,URINE, SVETLANA SERUM, UPE RAND, SPE #### [facility] , #### ESR, ADDONUAPLUS, CRP, CBC, CMP #### [place] [address] Bilirubin [Mass/Vol] 0.6 mg/dL Normal 0.3-1.0 [facility] Comment on above: Performed By: #### I FE,URINE, SVETLANA SERUM, UPE RAND, SPE #### [facility] , #### ESR, ADDONUAPLUS, CRP, CBC, CMP #### [address] Calcium [Mass/Vol] 9.4 mg/dL Normal 8.6-10.3 [facility] Comment on above: Performed By: #### I FE,URINE, SVETLANA SERUM, UPE RAND, SPE #### [facility] , #### ESR, ADDONUAPLUS, CRP, CBC, CMP #### [address] Chloride [Moles/Vol] 99 mmol/L Normal 98-107 [facility] Comment on above: Performed By: #### I FE,URINE, SVETLANA SERUM, UPE RAND, SPE #### [facility] , #### ESR, ADDONUAPLUS, CRP, CBC, CMP #### [address] CO2 [Moles/Vol] 28.5 mmol/L Normal 21.0-31.0 [facility] Comment on above: Performed By: #### I FE,URINE, SVETLANA SERUM, UPE RAND, SPE #### [facility] , #### ESR, ADDONUAPLUS, CRP, CBC, CMP #### [address] Creatinine [Mass/Vol] 0.73 mg/dL Normal 0.70-1.30 [facility] Comment on above: Performed By: #### I FE,URINE, SVETLANA SERUM, UPE RAND, SPE #### [facility] , #### ESR, ADDONUAPLUS, CRP, CBC, CMP #### [facility] GFR/1.73 sq M.predicted MDRD (S/P/Bld) [Vol rate/Area] mL/min/{1.73_m2} Normal [facility] Comment on above: Performed By: #### I FE,URINE, SVETLANA SERUM, UPE RAND, SPE #### [facility] , #### ESR, ADDONUAPLUS, CRP, CBC, CMP #### [address] Globulin (S) [Mass/Vol] 4.4 g/dL High 2.2-3.9 [facility] Comment on above: Performed By: #### I FE,URINE, SVETLANA SERUM, UPE RAND, SPE #### [facility] , #### ESR, ADDONUAPLUS, CRP, CBC, CMP #### [address] Glucose [Mass/Vol] 105 mg/dL High 70-100 [facility] Comment on above: Result Comment: [place] Glucose Reference Range is dependent on time and content of last meal. Glucose of more than 200 mg/dL in a nonstressed, ambulatory subject supports the diagnosis of Diabetes Mellitus. ADA recommended reference range Performed By: #### I FE,URINE, SVETLANA SERUM, UPE RAND, SPE #### [facility] , #### ESR, ADDONUAPLUS, CRP, CBC, CMP #### [address] Potassium [Moles/Vol] 4.3 mmol/L Normal 3.5-5.1 [facility] Comment on above: Performed By: #### I FE,URINE, SVETLANA SERUM, UPE RAND, SPE #### [facility] , #### ESR, ADDONUAPLUS, CRP, CBC, CMP #### [address] Protein [Mass/Vol] 8.2 g/dL Normal 6.4-8.9 [facility] Comment on above: Performed By: #### I FE,URINE, SVETLANA SERUM, UPE RAND, SPE #### [facility] , #### ESR, ADDONUAPLUS, CRP, CBC, CMP #### [facility] [address] Sodium [Moles/Vol] 138 mmol/L Normal 136-145 [facility] Comment on above: Performed By: #### I FE,URINE, SVETLANA SERUM, UPE RAND, SPE #### [facility] , #### ESR, ADDONUAPLUS, CRP, CBC, CMP #### [facility] [address] [place] [address] Urea nitrogen [Mass/Vol] 15 mg/dL Normal 7-25 [facility] Comment on above: Performed By: #### I FE,URINE, SVETLANA SERUM, UPE RAND, SPE #### [facility] , #### ESR, ADDONUAPLUS, CRP, CBC, CMP #### [facility] [address] [place] [address] Creatinine [Mass/volume] in Serum or PlasmaOrdered By: Carlos Guzmán on 11-24-2023 Creatinine [Mass/Vol] 0.73 mg/dL 0.70-1.30 [facility] Dipstick and Microscopicon 0 11-24-2023 Appearance (U) Clear Normal Clear [facility] Comment on above: Order Comment: Name Collection Type:: Clean-Voided Midstream Performed By: #### I FE,URINE, SVETLANA SERUM, UPE RAND, SPE #### [facility] , #### ESR, ADDONUAPLUS, CRP, CBC, CMP #### [facility] [address] [place] [address] [place] Bacteria,Urine None Seen Normal None Seen [facility] Comment on above: Order Comment: Name Collection Type:: Clean-Voided Midstream Performed By: #### I FE,URINE, SVETLANA SERUM, UPE RAND, SPE #### [facility] , #### ESR, ADDONUAPLUS, CRP, CBC, CMP #### [address] Bilirubin,Urine Negative Normal Negative [facility] Comment on above: Order Comment: Name Collection Type:: Clean-Voided Midstream Performed By: #### I FE,URINE, SVETLANA SERUM, UPE RAND, SPE #### [facility] , #### ESR, ADDONUAPLUS, CRP, CBC, CMP #### [address] Color (U) Yellow Normal Yellow [facility] Comment on above: Order Comment: Name Collection Type:: Clean-Voided Midstream Performed By: #### I FE,URINE, SVETLANA SERUM, UPE RAND, SPE #### [facility] , #### ESR, ADDONUAPLUS, CRP, CBC, CMP #### [address] Glucose Ql (U) >=1000 High Normal [facility] Comment on above: Order Comment: Name Collection Type:: Clean-Voided Midstream Performed By: #### I FE,URINE, SVETLANA SERUM, UPE RAND, SPE #### [facility] , #### ESR, ADDONUAPLUS, CRP, CBC, CMP #### [address] Hyaline Casts,Urine 0-8 Normal 0-8 [facility] Comment on above: Order Comment: Name Collection Type:: Clean-Voided Midstream Result Comment: PERF ORMED BY: [place] [address] PATHOLOGIST [employer] ADELFO RAMIREZ M.D. Performed By: #### I FE,URINE, SVETLANA SERUM, UPE RAND, SPE #### [facility] , #### ESR, ADDONUAPLUS, CRP, CBC, CMP #### [address] Ketones Ql (U) Trace High Negative [facility] Comment on above: Order Comment: Name Collection Type:: Clean-Voided Midstream Performed By: #### I FE,URINE, SVETLANA SERUM, UPE RAND, SPE #### [facility] , #### ESR, ADDONUAPLUS, CRP, CBC, CMP #### [address] Leukocyte esterase Test strip Ql (U) Negative Normal Negative [facility] [facility] Comment on above: Order Comment: Name Collection Type:: Clean-Voided Midstream Performed By: #### I FE,URINE, SVETLANA SERUM, UPE RAND, SPE #### [facility] , #### ESR, ADDONUAPLUS, CRP, CBC, CMP #### [address] Nitrite,Urine Negative Normal Negative [facility] Comment on above: Order Comment: Name Collection Type:: Clean-Voided Midstream Performed By: #### I FE,URINE, SVETLANA SERUM, UPE RAND, SPE #### [facility] , #### ESR, ADDONUAPLUS, CRP, CBC, CMP #### [facility] [address] [place] [address] Occult Blood,Urine Negative Normal Negative [facility] Comment on above: Order Comment: Name Collection Type:: Clean-Voided Midstream Performed By: #### I FE,URINE, SVETLANA SERUM, UPE RAND, SPE #### [facility] , #### ESR, ADDONUAPLUS, CRP, CBC, CMP #### [facility] [address] [place] [address] [place] pH (U) 5.0 [pH] Normal 5.0-9.0 [facility] Comment on above: Order Comment: Name Collection Type:: Clean-Voided Midstream Performed By: #### I FE,URINE, SVETLANA SERUM, UPE RAND, SPE #### [facility] , #### ESR, ADDONUAPLUS, CRP, CBC, CMP #### [address] Protein (U) [Mass/Vol] 30 mg/dL High Negative [facility] Comment on above: Order Comment: Name Collection Type:: Clean-Voided Midstream Performed By: #### I FE,URINE, SVETLANA SERUM, UPE RAND, SPE #### [facility] , #### ESR, ADDONUAPLUS, CRP, CBC, CMP #### [address] RBC,Urine None Seen Normal 0-4 [facility] Comment on above: Order Comment: Name Collection Type:: Clean-Voided Midstream Performed By: #### I FE,URINE, SVETLANA SERUM, UPE RAND, SPE #### [facility] , #### ESR, ADDONUAPLUS, CRP, CBC, CMP #### [address] Specificy Gore,Urine 1.039 High 1.001-1.030 [facility] Comment on above: Order Comment: Name Collection Type:: Clean-Voided Midstream Performed By: #### I FE,URINE, SVETLANA SERUM, UPE RAND, SPE #### [facility] , #### ESR, ADDONUAPLUS, CRP, CBC, CMP #### [address] Squamous Epithelial Cell,Urine None Seen Normal 0-2 [facility] Comment on above: Order Comment: Name Collection Type:: Clean-Voided Midstream Performed By: #### I FE,URINE, SVETLANA SERUM, UPE RAND, SPE #### [facility] , #### ESR, ADDONUAPLUS, CRP, CBC, CMP #### [facility] [address] [place] [address] Urobilinogen,Urine Normal Normal Normal [facility] Comment on above: Order Comment: Name Collection Type:: Clean-Voided Midstream Performed By: #### I FE,URINE, SVETLANA SERUM, UPE RAND, SPE #### [facility] , #### ESR, ADDONUAPLUS, CRP, CBC, CMP #### [facility] [address] [place] [address] WBC LM.HPF (Urine sed) [#/Area] 0 /[HPF] Normal 0-4 [facility] Comment on above: Order Comment: Name Collection Type:: Clean-Voided Midstream Performed By: #### I FE,URINE, SVETLANA SERUM, UPE RAND, SPE #### [facility] , #### ESR, ADDONUAPLUS, CRP, CBC, CMP #### [address] Eosinophils Auto (Bld) [#/Vo l]Ordered By: Carlos Guzmán on 11-24-2023 Eosinophils (Bld) [#/Vol] 0.2 10*3/uL 0.0-0.45 [facility] Eosinophils/100 WBC Auto (Bl d)Ordered By: Carlos Guzmán on 11-24-2023 Eosinophils/100 WBC (Bld) 2.0 % . [facility] Erythrocyte Sedimentation Ra bibiana 11-24-2023 ESR (Bld) [Velocity] 72 mm/h High 0-19 [facility] Comment on above: Result Comment: PERF ORMED BY: [place] [address] PATHOLOGIST [employer]TER ADELFO RAMIREZ M.D. Performed By: #### I FE,URINE, SVETLANA SERUM, UPE RAND, SPE #### [facility] , #### ESR, ADDONUAPLUS, CRP, CBC, CMP #### [facility] [address] [place] [address] Erythrocyte distribution wid th Auto (RBC) [Ratio]Ordered By: Carlos Guzmán on 11-24-2023 Erythrocyte distribution width (RBC) [Ratio] 15.0 % 12.0-14.8 [facility] Erythrocyte sedimentation ra te by Photometric methodOrdered By: Carlos Guzmán on 11-24-2023 ESR Photometric method (Bld) [Velocity] 72 mm/hr 0-19 [facility] Free K+L LT Chains, Qn, Son 11-24-2023 Free [place] Light Chains, S 127.8 mg/L High 3.3-19.4 [facility] Comment on above: Performed By: #### K APPA, ANCA PROF, C4, CH50, HBSAB, HBCAB, C3, HCV RX PCR, HBSAG, VANESSA ####[facility] , Free Lambda Light Chains, S 171.2 mg/L High 5.7-26.3 [facility] Comment on above: Performed By: #### K APPA, ANCA PROF, C4, CH50, HBSAB, HBCAB, C3, HCV RX PCR, HBSAG, VANESSA ####[facility] , [place]/Lambda Ratio, S 0.75 Normal 0.26-1.65 [facility] Comment on above: Result Comment: Perf ormed at: - [facility] [place] [id number] Field Reporter: Krunal Nichols PhD, Phone: [phone] Performed By: #### K APPA, ANCA PROF, C4, CH50, HBSAB, HBCAB, C3, HCV RX PCR, HBSAG, VANESSA ####[facility] , Gamma globulin/Protein.total in 24 hour Urine by ElectrophoresisOrdered By: Carlos Guzmán on 11-24-2023 Gamma globulin Elph (24H U) [Mass fraction] 20.1 % . [facility] Glucose [Mass/volume] in Ser um or PlasmaOrdered By: Carlos Guzmán on 11-24-2023 Glucose [Mass/Vol] 105 mg/dL 70-100 [facility] Comment on above: ADA recommended refe rence rangeRandom Glucose Reference Range is dependent on time and content of last meal. Glucose of more than 200 mg/dL in a nonstressed, ambulatory subject supports the diagnosis of Diabetes Mellitus. Hematocrit Auto (Bld) [Volum e fraction]Ordered By: Carlos Guzmán on 11-24-2023 Hematocrit (Bld) [Volume fraction] 38.8 % 38.8-50.0 [facility] Hemoglobin [Mass/volume] in BloodOrdered By: Carlos Grayfranky on 11-24-2023 Hemoglobin (Bld) [Mass/Vol] 13.3 g/dL 13.0-17. 0 [facility] Hep C Ab wRfx to Qnt PCRon 0 11-24-2023 Hepatitis C Virus Antibody Non-Reactive Normal N on Reactive [facility] Comment on above: Performed By: #### K APPA, ANCA PROF, C4, CH50, HBSAB, HBCAB, C3, HCV RX PCR, HBSAG, VANESSA ####[facility] , Interpretation Hepatitis C Normal . [facility] Comment on above: Result [...] B Core Antibody Negative Normal Negative [facility] Comment on above: Result Comment: Perf ormed at: [facility] [address] [id number] Field Reporter: Krunal Nichols PhD, Phone: [phone] Performed By: #### K APPA, ANCA PROF, C4, CH50, HBSAB, HBCAB, C3, HCV RX PCR, HBSAG, VANESSA ####[facility] , Hepatitis B Surface Antibody on 11-24-2023 Hepatitis B Surface Antibody Non-Reactive Normal . [facility] Comment on above: Result Comment: Non Reactive: Inconsistent with immunity, less than 10 mIU/mL Reactive: Consistent with immunity, greater than 9.9 mIU/mL Performed By: #### K APPA, ANCA PROF, C4, CH50, HBSAB, HBCAB, C3, HCV RX PCR, HBSAG, VANESSA ####[facility] , Hepatitis B Surface Antigeno n 11-24-2023 HBsAg Screen Negative Normal Negative [facility] Comment on above: Result Comment: PERF ORMED BY: [facility] [address] [place] [address] PATHOLOGIST [employer]TER ADELFO RAMIREZ M.D. Performed By: #### K APPA, ANCA PROF, C4, CH50, HBSAB, HBCAB, C3, HCV RX PCR, HBSAG, VANESSA ####[facility] , Hepatitis B virus surface Ab [Presence] in SerumOrdered By: Carlos Guzmán on 11-24-2023 HBV surface Ab Ql (S) Non-Reactive . [facility] Comment on above: Non Reactive: Incons istent with immunity, less than 10 mIU/mL Reactive: Consistent with immunity, greater than 9.9 mIU/mL Hepatitis B virus surface Ag [Presence] in Serum or Plasma by ImmunoassayOrdered By: Carlos Guzmán on 11-24-2023 HBV surface Ag IA Ql Negative Negative [facility] Hepatitis C virus IgG Ab [Pr esence] in Serum or Plasma by ImmunoassayOrdered By: Carlos Guzmán on 11-24-2023 HCV IgG IA Ql Non-Reactive Non Reactive [facility] IgA [Mass/volume] in Serum o r PlasmaOrdered By: Carlos Guzmán on 11-24-2023 IgA [Mass/Vol] 399 mg/dL 61-437 [facility] IgG [Mass/volume] in Serum o r PlasmaOrdered By: Carlos Guzmán on 11-24-2023 IgG [Mass/Vol] 2589 mg/dL 603-1613 [facility] IgM [Mass/volume] in Serum o r PlasmaOrdered By: Carlos Guzmán on 11-24-2023 IgM [Mass/Vol] 217 mg/dL 15-143 [facility] Comment on above: Performed at: [address] [id number] Director: Krunal Nichols PhD, Phone: [phone] Immunofixation for UrineOrde red By: Carlos Guzmán on 11-24-2023 Interpretation Immunofixation (U) [Interp] Comment: . [facility] Comment on above: Presence of monoclon al protein is unclear at this time. Suggestrepeat in 3 to 6 months if clinically indicated.Performed at: - [facility] [place], [place] [id number] Director: Krunal Nichols PhD, Phone: [phone] Immunofixation, (SVETLANA), Urine on 11-24-2023 Immunofixation, (SVETLANA), Urine Comment: Normal . [facility] Comment on above: Result Comment: Pres ence of monoclonal protein is unclear at this time. Suggest repeat in 3 to 6 months if clinically indicated. Performed at: [facility] [address] [place], [place] [id number] Field Reporter: Krunal Nichols PhD, Phone: [phone] Performed By: #### I FE,URINE, SVETLANA SERUM, UPE RAND, SPE ####[facility] ,#### ESR, ADDONUAPLUS, CRP, CBC, CMP ####[facility] [place] [address] [place] Immunofixation,Serumon 11-23 Immunofixation, Serum Normal . [facility] Comment on above: Result Comment: No m onoclonality detected. Performed By: #### I FE,URINE, SVETLANA SERUM, UPE RAND, SPE #### [facility] , #### ESR, ADDONUAPLUS, CRP, CBC, CMP #### [facility] [address] [place] [address] [facility] Immunoglobulin A, Serum 399 mg/dL Normal 61-437 [facility] Comment on above: Performed By: #### I FE,URINE, SVETLANA SERUM, UPE RAND, SPE #### [facility] , #### ESR, ADDONUAPLUS, CRP, CBC, CMP #### [facility] [address] [place] [address] [place] Immunoglobulin G 2589 mg/dL High 603-1613 [facility] Comment on above: Performed By: #### I FE,URINE, SVETLANA SERUM, UPE RAND, SPE #### [facility] , #### ESR, ADDONUAPLUS, CRP, CBC, CMP #### [facility] [address] Immunoglobulin M, Serum 217 mg/dL High 15-143 [facility] Comment on above: Result Comment: Perf ormed at: - [facility] [place] [address] [place] [address] Field Reporter: Krunal Nichols PhD, Phone: [phone] Performed By: #### I FE,URINE, SVETLANA SERUM, UPE RAND, SPE #### [facility] , #### ESR, ADDONUAPLUS, CRP, CBC, CMP #### [facility] [address] Immunoglobulin light chains. kappa.free [Mass/volume] in SerumOrdered By: Carlos Guzmán on 11-24-2023 Immunoglobulin light chains.kappa.free (S) [Mass/Vol] 127.8 mg/L 3.3-19.4 [facility] Immunoglobulin light chains. kappa.free/Immunoglobulin light chains.lambda.free [MassOrdered By: Carlos Guzmán on 11-24-2023 Immunoglobulin light chains.kappa.free/Immunoglo bulin light chains.lambda.free (S) [Mass ratio] 0.75 0.26-1.65 [facility] Comment on above: Performed at: - [facility] [place] [address]Lab Director: Krunal Nichols PhD, Phone: [phone] Immunoglobulin light chains. lambda.free [Mass/volume] in Serum or PlasmaOrdered By: Carlos Guzmán on 11-24-2023 Immunoglobulin light chains.lambda.free [Mass/Vol] 171.2 mg/L 5.7-26.3 [facility] Ketones Auto test strip (U) [Mass/Vol]Ordered By: Carlos Guzmán on 11-24-2023 Ketones (U) [Mass/Vol] Trace Negative [facility] - UrinalysisOrder ed By: Carlos Guzmán on 11-24-2023 Hyaline casts LM Ql (Urine sed) 0-8 [LPF] 0-8 [facility] Leukocytes [#/volume] correc yuniel for nucleated erythrocytes in Blood by Automated counOrdered By: Carlos Guzmán on 11-24-2023 WBC corrected for nucl RBC Auto (Bld) [#/Vol] 8.9 10*3/uL 4.1-10.5 [facility] Lymphocytes Auto (Bld) [#/Vo l]Ordered By: Carlos Guzmán on 11-24-2023 Lymphocytes (Bld) [#/Vol] 2.5 10*3/uL 1.00-4.8 [facility] Lymphocytes/100 WBC Auto (Bl d)Ordered By: Carlos Guzmán on 11-24-2023 Lymphocytes/100 WBC (Bld) 28.6 % . [facility] MCH Auto (RBC) [Entitic mass ]Ordered By: Carlos Guzmán on 11-24-2023 MCH (RBC) [Entitic mass] 30.0 pg 27.5-35.2 [facility] MCHC Auto (RBC) [Mass/Vol]Or dered By: Carlos Guzmán on 11-24-2023 MCHC (RBC) [Mass/Vol] 34.4 g/dL 32.5-35.6 Fir [facility] MCV Auto (RBC) [Entitic vol] Ordered By: Carlos Guzmán on 11-24-2023 MCV (RBC) [Entitic vol] 87.1 fL 83.5-101 F [facility] Monocytes Auto (Bld) [#/Vol] Ordered By: Carlos Guzmán on 11-24-2023 Monocytes (Bld) [#/Vol] 0.7 10*3/uL 0.0-0.8 [facility] Monocytes/100 WBC Auto (Bld) Ordered By: Carlos Guzmán on 11-24-2023 Monocytes/100 WBC (Bld) 7.8 % . F [facility] Myeloperoxidase Ab [Units/vo lume] in Serum by ImmunoassayOrdered By: Carlos Guzmán on 11-24-2023 Myeloperoxidase Ab IA Qn (S) 1.8 units 0.0-0.9 [facility] Neutrophil cytoplasmic Ab.pe rinuclear.atypical [Titer] in Serum by ImmunofluorescenceOrdered By: Carlos Guzmán on 11-24-2023 Neutrophil cytoplasmic Ab.perinuclear.atypical IF (S) [Titer] <1:20 titer Neg:<1:20 [facility] Comment on above: The atypical pANCA p attern has been observed in asignificant percentage of patients with ulcerative colitis,primary sclerosing cholangitis and autoimmune hepatitis.Performed at: [facility] [id number] Director: Blanca Olmedo MD, Phone: [phone] at: [facility] [address] [id number] Director: Krunal Nichols PhD, Phone: [phone] Neutrophils Auto (Bld) [#/Vo l]Ordered By: Carlos Guzmán on 11-24-2023 Neutrophils (Bld) [#/Vol] 5.4 10*3/uL 1.8-7.7 [facility] Neutrophils/100 WBC Auto (Bl d)Ordered By: Carlos Guzmán on 11-24-2023 Neutrophils/100 WBC (Bld) 60.5 % . [facility] Nitrite Test strip Ql (U)Ord ered By: Carlos Guzmán on 11-24-2023 Nitrite Ql (U) Negative Negative [facility] No Panel InformationOrdered By: Carlos Guzmán on 11-24-2023 Anti-Nuclear Antibody Comment 2 See comment . [facility] Comment on above: Pattern Potential Di sease Association Homogeneous Systemic Lupus Erythematosus, Drug Induced Systemic Lupus Erythematosus, Chronic Autoimmune hepatitis, Juvenile Idiopathic Arthritis Speckled Sjogren Syndrome, Systemic Lupus Erythematosus, Subacute Cutaneous Lupus, Lupus, Congenital Heart Block, Mixed Connective Tissue Disease, Scleroderma-diffuse, Scleroderma-Autoimmune Myositis Overlap Syndrome, Systemic Lupus Jfvlmbxugywmd-Yrtngsrwajp-Dilozqfydg Myositis Overlap Syndrome, Systemic Autoimmune Rheumatic Disease, [...] Antiphospholipid Syndrome Performed at: [facility] [address] [id number] Director: Krunal Nichols PhD, Phone: [phone] Estimated GFR (CKD-EPI) > 60.0 mL/Min [facility] Hepatitis B Core Total Antibody Negative Negative [facility] Comment on above: Performed at: [facility] [address] [id number] Director: Krunal Nichols PhD, Phone: [phone] Hepatitis C Interpretation See comment . [facility] Comment on above: Not infected with HC V unless early or acute infection issuspected (which may be delayed in an immunocompromisedindividual), or other evidence exists to indicate HCVinfection. Perinuclear ANCA (p-ANCA) Antibody <1:20 titer Neg:<1:20 [facility] Comment on above: The presence of posi tive fluorescence exhibiting P-ANCA orC-ANCA patterns alone is not specific for the diagnosis ofWegener's Granulomatosis (WG) or microscopic polyangiitis.Decisions about treatment should not be based solely onANCA IFA results. The International ANCA Group Consensusrecommends follow up testing of positive sera with both WY-3 and MPO-ANCA enzyme immunoassays. As many as 5% serumsamples are positive only by EIA. Ref. AM J Clin Emmljy1279;111:507-513. Pharmacy Creatinine Clearance (Chem N/A [facility] Protein Electrophoresis M-Michael Not observed g/dL Not Observed [facility] Protein Electrophoresis Note See comment . [facility] Comment on above: Protein electrophore sis scan will follow via computer,mail, or geophysics scientist delivery.Performed at: [facility] [place], [place] [id number] Director: Krunal Nichols PhD, Phone: [phone] Serum Immunofixation See comment . [facility] Comment on above: No monoclonality det ected. Total Complement (CH50) 51 U/mL >41 F [facility] Comment on above: Age Male Female 2 [...] to determine out of range values.Performed at: [facility] [place], [place] [id number] Director: Krunal Nichols PhD, Phone: [phone] Urine Random Prot Electrophor Note See comment . [facility] Comment on above: Protein electrophore sis scan will follow via computer,mail, or geophysics scientist delivery. Nucleated erythrocytes [Pres ence] in Blood by Automated countOrdered By: Carlos Guzmán on 11-24-2023 Nucleated RBC Auto Ql (Bld) 0.0 /100{WBC} 0-0.5 [facility] Platelet mean volume Auto (B ld) [Entitic vol]Ordered By: Carlos Guzmán on 11-24-2023 Platelet mean volume (Bld) [Entitic vol] 7.9 fL 6.6-10.1 [facility] Platelets Auto (Bld) [#/Vol] Ordered By: Carlos Guzmán on 11-24-2023 Platelets (Bld) [#/Vol] 369 10*3/uL 150-450 [facility] Potassium [Moles/volume] in Serum or PlasmaOrdered By: Carlos Guzmán on 11-24-2023 Potassium [Moles/Vol] 4.3 mmol/L 3.5-5.1 [facility] Protein Auto test strip (U) [Mass/Vol]Ordered By: Carlos Guzmán on 11-24-2023 Protein (U) [Mass/Vol] 30 mg/dL Negative [facility] Protein Electro, Random Urin sheree 11-24-2023 Albumin, Urine 50.7 % Normal . [facility] Comment on above: Performed By: #### I FE,URINE, SVETLANA SERUM, UPE RAND, SPE ####[facility] ,#### ESR, ADDONUAPLUS, CRP, CBC, CMP ####[facility] [address] [place] [id number] [facility] Wsocv-9-Uznnofkz, Urine 1.3 % Normal . [facility] Comment on above: Performed By: #### I FE,URINE, SVETLANA SERUM, UPE RAND, SPE ####[facility] ,#### ESR, ADDONUAPLUS, CRP, CBC, CMP ####[facility] [address] [place] [address] [facility] Hcvdf-0-Pkjhneww, Urine 9.1 % Normal . [facility] Comment on above: Performed By: #### I FE,URINE, SVETLANA SERUM, UPE RAND, SPE ####[facility] ,#### ESR, ADDONUAPLUS, CRP, CBC, CMP ####[address] Beta Globulin, Urine 18.7 % Normal . [facility] Comment on above: Performed By: #### I FE,URINE, SVETLANA SERUM, UPE RAND, SPE ####[facility] ,#### ESR, ADDONUAPLUS, CRP, CBC, CMP ####[address] Gamma Globulin, Urine 20.1 % Normal . [facility] Comment on above: Performed By: #### I FE,URINE, SVETLANA SERUM, UPE RAND, SPE ####[facility] ,#### ESR, ADDONUAPLUS, CRP, CBC, CMP ####[address] M-Michael % Not Observed Normal Not Observed [facility] Comment on above: Performed By: #### I FE,URINE, SVETLANA SERUM, UPE RAND, SPE ####[facility] ,#### ESR, ADDONUAPLUS, CRP, CBC, CMP ####[address] Please Note: Normal . [facility] Comment on above: Result Comment: Prot ein electrophoresis scan will follow via computer, mail, or geophysics scientist delivery. PERFORMED BY: [facility] [address] [place] [address] PATHOLOGIST [employer] SETTER ADELFO RAMIREZ M.D. Performed By: #### I FE,URINE, SVETLANA SERUM, UPE RAND, SPE ####[facility] ,#### ESR, ADDONUAPLUS, CRP, CBC, CMP ####[address] Protein (U) [Mass/Vol] 40.0 mg/dL Normal Not Estab. [facility] Comment on above: Performed By: #### I FE,URINE, SVETLANA SERUM, UPE RAND, SPE ####[facility] ,#### ESR, ADDONUAPLUS, CRP, CBC, CMP ####[facility] [address] [place] [address] [place] Protein Electrophoresis, Ser umon 11-24-2023 Albumin [Mass/Vol] 3.5 g/dL Normal 2.9-4.4 [facility] Comment on above: Performed By: #### I FE,URINE, SVETLANA SERUM, UPE RAND, SPE #### [facility] , #### ESR, ADDONUAPLUS, CRP, CBC, CMP #### [facility] [address] [place] [address] Albumin/Globulin [Mass ratio] 0.8 {ratio} Normal 0.7-1.7 [facility] Comment on above: Performed By: #### I FE,URINE, SVETLANA SERUM, UPE RAND, SPE #### [facility] , #### ESR, ADDONUAPLUS, CRP, CBC, CMP #### [facility] [address] Pbfbr-7-Wixtybrf 0.2 g/dL Normal 0.0-0.4 [facility] Comment on above: Performed By: #### I FE,URINE, SVETLANA SERUM, UPE RAND, SPE #### [facility] , #### ESR, ADDONUAPLUS, CRP, CBC, CMP #### [facility] [address] [place] [address] [place] Kixia-6-Bmaqdanj 1.0 g/dL Normal 0.4-1.0 [facility] Comment on above: Performed By: #### I FE,URINE, SVETLANA SERUM, UPE RAND, SPE #### [facility] , #### ESR, ADDONUAPLUS, CRP, CBC, CMP #### [address] Beta Globulin 1.0 g/dL Normal 0.7-1.3 [facility] Comment on above: Performed By: #### I FE,URINE, SVETLANA SERUM, UPE RAND, SPE #### [facility] , #### ESR, ADDONUAPLUS, CRP, CBC, CMP #### [address] Gamma Globulin 2.2 g/dL High 0.4-1.8 [facility] Comment on above: Performed By: #### I FE,URINE, SVETLANA SERUM, UPE RAND, SPE #### [facility] , #### ESR, ADDONUAPLUS, CRP, CBC, CMP #### [address] M-Michael Not Observed Normal Not Observed [facility] Comment on above: Performed By: #### I FE,URINE, SVETLANA SERUM, UPE RAND, SPE #### [facility] , #### ESR, ADDONUAPLUS, CRP, CBC, CMP #### [address] Protein [Mass/Vol] 7.9 g/dL Normal 6.0-8.5 [facility] Comment on above: Performed By: #### I FE,URINE, SVETLANA SERUM, UPE RAND, SPE #### [facility] , #### ESR, ADDONUAPLUS, CRP, CBC, CMP #### [address] SPE-Note Normal . [facility] Comment on above: Result Comment: Prot ein electrophoresis scan will follow via computer, mail, or geophysics scientist delivery. Performed at: [facility] [address] [id number] Field Reporter: Krunal Nichols PhD, Phone: [phone] PERFORMED BY: [place] [address] PATHOLOGIST [employer] SETTER ADELFO RAMIREZ M.D. Performed By: #### I FE,URINE, SVETLANA SERUM, UPE RAND, SPE #### [facility] , #### ESR, ADDONUAPLUS, CRP, CBC, CMP #### [address] Protein [Mass/volume] in Ser um or PlasmaOrdered By: Carlos Guzmán on 11-24-2023 Protein [Mass/Vol] 8.2 g/dL 6.4-8.9 [facility] Protein [Mass/Vol] 7.9 g/dL 6.0-8.5 [facility] Protein [Mass/volume] in Uri neOrdered By: Carlos Guzmán on 11-24-2023 Protein (U) [Mass/Vol] 40.0 mg/dL Not Estab. Fi [facility] Protein.monoclonal/Protein.t otal in 24 hour Urine by ElectrophoresisOrdered By: Carlos Guzmán on 11-24-2023 Protein.monoclonal Elph (24H U) [Mass fraction] Not observed % Not Observed [facility] Proteinase 3 Ab [Units/volum e] in Serum by ImmunoassayOrdered By: Carlos Guzmán on 11-24-2023 Proteinase 3 Ab IA Qn (S) <0.2 units 0.0-0.9 [facility] RBC Auto (Bld) [#/Vol]Ordere d By: Carlos Guzmán on 11-24-2023 RBC (Bld) [#/Vol] 4.45 10*6/uL 3.90-5.60 [facility] Serum classic neutrophil cyt oplasmic antibody titer by immunofluorescenceOrdered By: Carlos Guzmán on 11-24-2023 Neutrophil cytoplasmic Ab.classic IF (S) [Titer] <1:20 titer Neg:<1:20 [facility] Serum globulin measurement b y calculation (mass/volume)Ordered By: Carlos Guzmán on 11-24-2023 Globulin (S) [Mass/Vol] 4.4 g/dL 2.2-3.9 F [facility] Serum homogeneous pattern an tinuclear antibody (VANESSA) titerOrdered By: Carlos Guzmán on 11-24-2023 Homogenous nuclear Ab pattern (S) [Titer] 1:640 . [facility] Comment on above: ICAP nomenclature: A C-1 Serum nuclear antibody titer Ordered By: Carlos Guzmán on 11-24-2023 Nuclear Ab (S) [Titer] Positive . [facility] Comment on above: Negative <1:80 Borde rline 1:80 Positive >1:80 Serum or plasma albumin/glob ulin mass ratioOrdered By: Carlos Guzmán on 11-24-2023 Albumin/Globulin [Mass ratio] 0.9 {ratio} [facility] Albumin/Globulin [Mass ratio] 0.8 {ratio} 0.7-1.7 [facility] Serum or plasma alpha 1 glob ulin measurement by electrophoresis (mass/volume)Ordered By: Carlos Guzmán on 11-24-2023 Alpha 1 globulin Elph [Mass/Vol] 0.2 g/dL 0.0-0.4 [facility] Serum or plasma alpha 2 glob ulin measurement by electrophoresis (mass/volume)Ordered By: Carlos Guzmán on 11-24-2023 Alpha 2 globulin Elph [Mass/Vol] 1.0 g/dL 0.4-1.0 [facility] Serum or plasma anion gap de terminationOrdered By: Carlos Guzmán on 11-24-2023 Anion gap [Moles/Vol] 14.8 mmol/L 6.0-15.0 [facility] Serum or plasma beta globuli n measurement by electrophoresis (mass/volume)Ordered By: Carlos Guzmán on 11-24-2023 Beta globulin Elph [Mass/Vol] 1.0 g/dL 0.7-1.3 [facility] Serum or plasma complement C 3 measurement (mass/volume)Ordered By: Carlos Guzmán on 11-24-2023 Complement C3 [Mass/Vol] 135 mg/dL 82-167 [facility] Comment on above: Performed at: [address] [id number] Director: Krunal Nichols PhD, Phone: [phone] Serum or plasma complement C 4 measurement (mass/volume)Ordered By: Carlos Guzmán on 11-24-2023 Complement C4 [Mass/Vol] 10 mg/dL 12-38 [facility] Serum or plasma gamma globul in measurement by electrophoresis (mass/volume)Ordered By: Carlos Guzmán on 11-24-2023 Gamma globulin Elph [Mass/Vol] 2.2 g/dL 0.4-1.8 [facility] Sodium [Moles/volume] in Ser um or PlasmaOrdered By: Carlos Guzmán on 11-24-2023 Sodium [Moles/Vol] 138 mmol/L 136-145 [facility] Specific gravity Auto test s trip (U) [Rel density]Ordered By: Carlos Guzmán on 11-24-2023 Specific gravity (U) [Rel density] 1.039 1.001-1.030 [facility] Squamous epithelial cells de tection in urine sediment by light microscopyOrdered By: Carlos Guzmán on 11-24-2023 Epithelial cells.squamous LM Ql (Urine sed) None seen [HPF] 0-2 [facility] Urea nitrogen [Mass/volume] in Serum or PlasmaOrdered By: Carlos Guzmán on 11-24-2023 Urea nitrogen [Mass/Vol] 15 mg/dL 7-25 [facility] Urine alpha 1 globulin/total protein by electrophoresisOrdered By: Carlos Guzmán on 11-24-2023 Alpha 1 globulin Elph (U) [Mass fraction] 1.3 % . [facility] Urine alpha 2 globulin/total protein ratio by electrophoresisOrdered By: Carlos Guzmán on 11-24-2023 Alpha 2 globulin Elph (U) [Mass fraction] 9.1 % . [facility] Urine bacteria detection by automated methodOrdered By: Carlos Guzmán on 11-24-2023 Bacteria Auto Ql (U) None seen None Seen [facility] Urine beta globulin measurem ent by electrophoresis (mass/volume)Ordered By: Carlos Guzmán on 11-24-2023 Beta globulin Elph (U) [Mass/Vol] 18.7 % . [facility] Urine clarity by refractomet ry automatedOrdered By: Carlos Guzmán on 11-24-2023 Clarity Refractometry automated (U) Clear Clear [facility] Urine glucose measurement by automated test strip (mass/volume)Ordered By: Carlos Guzmán on 11-24-2023 Glucose Auto test strip (U) [Mass/Vol] >=1000 mg/dL Normal [facility] Urine hemoglobin detection b y automated test stripOrdered By: Carlos Guzmán on 11-24-2023 Hemoglobin Auto test strip Ql (U) Negative Negative [facility] Urine leukocyte esterase det ection by automated test stripOrdered By: Carlos Guzmán on 11-24-2023 Leukocyte esterase Auto test strip Ql (U) Negative Negative [facility] Urobilinogen Auto test strip (U) [Mass/Vol]Ordered By: Carlos Guzmán on 11-24-2023 Urobilinogen (U) [Mass/Vol] Normal mg/dL Normal [facility] WBC Auto (Bld) [#/Vol]Ordere d By: Carlos Guzmán on 11-24-2023 WBC (Bld) [#/Vol] 8.9 10*3/uL 4.1-10.5 [facility] pH Auto test strip (U)Ordere d By: Carlos Guzmán on 11-24-2023 pH (U) 5.0 [pH] 5.0-9.0 [facility] Basophils Auto (Bld) [#/Vol] on 10-28-2023 Basophils (Bld) [#/Vol] 0.1 10 3/uL 0.0-0.1 [facility] Basophils/100 WBC Auto (Bld) on 10-28-2023 Basophils/100 WBC (Bld) 0.7 % 0.2-2.0 F [facility] Centriole Ab [Titer] in Seru m by Immunofluorescenceon 10-28-2023 Centriole Ab IF (S) [Titer] TNP . [facility] Centromere Ab [Titer] in Ser um by Immunofluorescenceon 10-28-2023 Centromere Ab IF (S) [Titer] TN . [facility] Eosinophils/100 WBC Auto (Bl d)on 10-28-2023 Eosinophils/100 WBC (Bld) 2.2 % 0.9-7.0 [facility] Erythrocyte distribution wid th Auto (RBC) [Ratio]on 10-28-2023 Erythrocyte distribution width (RBC) [Ratio] 14.6 % 11.0-15.0 [facility] Estimated glomerular filtrat ion rate (GFR) non- Americanon 10-28-2023 GFR/1.73 sq M.predicted among non-blacks MDRD (S/P/Bld) [Vol rate/Area] mL/min/{1.73_m2} >=60 [facility] Globulin Calc (S) [Mass/Vol] on 10-28-2023 Globulin (S) [Mass/Vol] 5.8 g/dL F [facility] Hematocrit Auto (Bld) [Volum e fraction]on 10-28-2023 Hematocrit (Bld) [Volume fraction] 40.0 % 42.0-54.0 [facility] Hemoglobin [Mass/volume] in Bloodon 10-28-2023 Hemoglobin (Bld) [Mass/Vol] 13.1 g/dL 14.0-18. 0 [facility] Laboratory - Chemistry and C hemistry - challengeon 10-28-2023 Albumin [Mass/Vol] 2.8 g/dL 3.4-5.0 [facility] ALP [Catalytic activity/Vol] 94 U/L 46-116 [facility] ALT [Catalytic activity/Vol] 17 U/L 16-63 [facility] AST [Catalytic activity/Vol] 23 U/L 15-37 [facility] Bilirubin [Mass/Vol] 0.6 mg/dL 0.2-1.0 [facility] Calcium [Mass/Vol] 8.8 mg/dL 8.5-10.1 [facility] Chloride [Moles/Vol] 100 mmol/L 98-107 [facility] CO2 [Moles/Vol] 28.0 mmol/L 21.0-32.0 [facility] Creatinine [Mass/Vol] 0.80 mg/dL 0.70-1.30 [facility] GFR/1.73 sq M.predicted MDRD (S/P/Bld) [Vol rate/Area] mL/min/{1.73_m2} >=60 [facility] Glucose [Mass/Vol] 135 mg/dL 74-106 [facility] Potassium [Moles/Vol] 4.5 mmol/L 3.5-5.1 [facility] Protein [Mass/Vol] 8.6 g/dL 6.4-8.2 [facility] Sodium [Moles/Vol] 138 mmol/L 136-145 [facility] Urate [Mass/Vol] 4.2 mg/dL 3.5-7.2 [facility] Urea nitrogen [Mass/Vol] 14.0 mg/dL 7.0-18.0 [facility] Urea nitrogen/Creatinine [Mass ratio] 17.5 mg/mg [facility] Laboratory - Hematology and Cell countson 10-28-2023 ESR (Bld) [Velocity] 62 mm/h <=20 [facility] Immature granulocytes/100 WBC (Bld) 0.1 % 0.0-0.5 [facility] Leukocytes [#/volume] correc yuniel for nucleated erythrocytes in Blood by Automated counon 10-28-2023 WBC corrected for nucl RBC Auto (Bld) [#/Vol] 7.2 10 3/uL 4.0-11.0 [facility] Lymphocytes Auto (Bld) [#/Vo l]on 10-28-2023 Lymphocytes (Bld) [#/Vol] 1.9 10 3/uL 1.2-3.8 [facility] Lymphocytes/100 WBC Auto (Bl d)on 10-28-2023 Lymphocytes/100 WBC (Bld) 26.6 % 20.5-60.0 [facility] MCH Auto (RBC) [Entitic mass ]on 10-28-2023 MCH (RBC) [Entitic mass] 30.2 pg 25.9-34.0 [facility] MCHC Auto (RBC) [Mass/Vol]on 10-28-2023 MCHC (RBC) [Mass/Vol] 32.8 g/dL 29.9-35.2 [facility] MCV Auto (RBC) [Entitic vol] on 10-28-2023 MCV (RBC) [Entitic vol] 92.2 fL 80.0-94.0 F [facility] Midbody Ab [Titer] in Serum by Immunofluorescenceon 10-28-2023 Midbody Ab IF (S) [Titer] TNP . [facility] Mitotic spindle apparatus Ab [Titer] in Serum or Plasma by Immunofluorescenceon 10-28-2023 Mitotic spindle apparatus Ab IF [Titer] TNP . [facility] Monocytes Auto (Bld) [#/Vol] on 10-28-2023 Monocytes (Bld) [#/Vol] 0.8 10 3/uL 0.3-0.8 [facility] Monocytes/100 WBC Auto (Bld) on 10-28-2023 Monocytes/100 WBC (Bld) 10.4 % 1.7-12.0 [facility] Neutrophils Auto (Bld) [#/Vo l]on 10-28-2023 Neutrophils (Bld) [#/Vol] 4.3 10 3/uL 1.4-6.5 [facility] Neutrophils/100 WBC Auto (Bl d)on 10-28-2023 Neutrophils/100 WBC (Bld) 60.0 % 43.0-75.0 [facility] No Panel Informationon 10-28 Anti-Nuclear Antibody Comment 2 Comment . [facility] Comment on above: Pattern Potential Di sease Association Homogeneous Systemic Lupus Erythematosus, Drug Induced Systemic Lupus Erythematosus, Chronic Autoimmune hepatitis, Juvenile Idiopathic Arthritis Speckled Sjogren Syndrome, Systemic Lupus Erythematosus, Subacute Cutaneous Lupus, Lupus, Congenital Heart Block, Mixed Connective Tissue Disease, Scleroderma-diffuse, Scleroderma-Autoimmune Myositis Overlap Syndrome, Systemic Lupus Ckknrdwpjqoti-Cjdschtzftu-Hdozpcwzrg Myositis Overlap Syndrome, Systemic Autoimmune Rheumatic Disease, [...] Cytopenias, Linear Scleroderma, Antiphospholipid Syndrome Performed at: [facility] [address] [id number] Director: Krunal Nichols PhD, Phone: [phone] C-Reactive Protein, Quantitative <0.50 mg/dL <=0.50 [facility] Eosinophils # (Auto) 0.2 10 3/uL 0.0-0.7 [facility] Immature Granulocyte # (Auto) 0.01 10 3/uL 0.00-0.03 [facility] Nuclear dots nuclear Ab prashant bhupendra [Titer] in Serum by Immunofluorescenceon 10-28-2023 Nuclear dots nuclear Ab pattern IF (S) [Titer] TNP . [facility] Nuclear membrane pores nucle ar Ab pattern [Titer] in Serum by Immunofluorescenceon 10-28-2023 Nuclear membrane pores nuclear Ab pattern IF (S) [Titer] TNP . [facility] PCNA extractable nuclear Ab [Titer] in Serum by Immunofluorescenceon 10-28-2023 PCNA extractable nuclear Ab IF (S) [Titer] TNP . [facility] Platelet mean volume Auto (B ld) [Entitic vol]on 10-28-2023 Platelet mean volume (Bld) [Entitic vol] 8.9 fL 9.5-13.5 [facility] Platelets Auto (Bld) [#/Vol] on 10-28-2023 Platelets (Bld) [#/Vol] 296 10 3/uL 150-450 [facility] RBC Auto (Bld) [#/Vol]on RBC (Bld) [#/Vol] 4.34 10 6/uL 4.70-6.10 [facility] Serum homogeneous pattern an tinuclear antibody (VANESSA) titeron 10-28-2023 Homogenous nuclear Ab pattern (S) [Titer] 1:640 . [facility] Comment on above: ICAP nomenclature: A C-1 Serum nuclear antibody titer on 10-28-2023 Nuclear Ab (S) [Titer] Positive . [facility] Comment on above: Negative <1:80 Borde rline 1:80 Positive >1:80 Serum nucleolar pattern anti nuclear antibody (VANESSA) titeron 10-28-2023 Nucleolar nuclear Ab pattern (S) [Titer] TNP . [facility] Serum or plasma albumin/glob ulin mass ratioon 10-28-2023 Albumin/Globulin [Mass ratio] 0.5 {ratio} [facility] Serum or plasma anion gap de terminationon 10-28-2023 Anion gap [Moles/Vol] 14.5 mmol/L [facility] Serum or plasma cyclic adeno sine monophosphate measurement (moles/volume)on 10-28-2023 Adenosine monophosphate.cyclic [Moles/Vol] >250 units 0-19 [facility] Comment on above: Negative <20 Weak po sitive 20 - 39 Moderate positive 40 - 59 Strong positive >59Performed at: - [facility] [id number] Director: Krunal Nichols PhD, Phone: [phone] Serum or plasma rheumatoid f actor measurement (units/volume)on 10-28-2023 Rheumatoid factor Qn 183.9 [IU]/mL <14.0 F [facility] Comment on above: Results confirmed on dilution.Performed at: [facility] [id number] Director: Krunal Nichols PhD, Phone: [phone] Serum speckled pattern antin uclear antibody (VANESSA) titeron 10-28-2023 Speckled nuclear Ab pattern (S) [Titer] TNP . [facility] Glucose Glucometer (BldC) [M ass/Vol]Ordered By: Erickson Nascimento on 07-04-2023 Glucose [Mass/Vol] 134 mg/dL [facility] Comment on above: Random Glucose Refer ence Range is dependent on time and content of last meal. Glucose of more than 200 mg/dL in a nonstressed, ambulatory subject supports the diagnosis of Diabetes Mellitus. Glucose Poct Glucometerson 1 09-03-2022 Glucose [Mass/Vol] 134 mg/dL Normal [facility] Comment on above: Result Comment: [place] om Glucose Reference Range is dependent on time and content of last meal. Glucose of more than 200 mg/dL in a nonstressed, ambulatory subject supports the diagnosis of Diabetes Mellitus. PERFORMED BY: [facility] [address] [place] [address] PATHOLOGIST [employer] ADELFO RAMIREZ M.D. Performed By: #### G LOYD ####Point of Care testing, Eduard 07-04-2023 L - -------- Specimen: [id number] Received: 07/04/23 Status: RAQUEL De Oliveira Num: [id number] Spec Type: Surgical Subm Dr: Erickson Nascimento DO Tissues: A Soft Tissue/Surgical Margin-Other than Tumor,Mass,Lip or Natasha (LT ELBOW MASS) Procedures: VINCENT, Gross/Micro L4 -------- Age/ Patient Sex Location Account Attending Physician -------- Mariano Gutierrez 73/M [place] [id number] Erickson Nascimento DO -------- SPEC NUM: [id number] RECD: 07/04/23 STATUS: RAQUEL DE OLIVEIRA NUM: [id number] DENISA: 07/04/[address] [facility] [address]: Erickson Nascimento DO ENTERED: 07/04/[address] [facility] [address]: DARY TYPE: Surgical DEPT: S [...] tissue with a rubbery, dubois-pink cut surface. Registered Radiologic Technologist sections are submitted in one cassette labeled A1. -------- Specimen: [id number] Received: 07/04/23 Status: RAQUEL De Oliveira Num: [id number] Spec Type: Surgical Subm Dr: Erickson Nascimento, Tissues: A Soft Tissue/Surgical Margin-Other than Tumor,Mass,Lip or Natasha (LT ELBOW MASS) Procedures: Kristin KAUR/Zo L4 -------- Patient: Mariano Gutierrez [id number] (Continued) -------- Specimen: [id number] Received: 07/04/23 (Continued) Signed (signature on file) Brandy Keane MD 07/08/23 1545 -------- Specimen: [id number] Received: 07/04/23 Status: RAQUEL De Oliveira Num: [id number] Spec Type: Surgical Subm Dr: Erickson Nascimento DO Tissues: A Soft Tissue/Surgical Margin-Other than Tumor,Mass,Lip or Natasha (LT ELBOW MASS) Procedures: Kristin KAUR/Zo L4 -------- Patient: Mariano Gutierrez [id number] (Continued) -------- Specimen: [id number] Received: 07/04/23 (Continued) Microscopic Description One H E slide reviewed. The microscopic examination confirms the diagnosis. CPT Codes 42886 -------- -------- Specimen: [id number] Received: 07/04/23 Status: RAQUEL De Oliveira Num: [id number] Spec Type: Surgical Subm Dr: Erickson Nascimento DO Tissues: A Soft Tissue/Surgical Margin-Other than Tumor,Mass,Lip or Natasha (LT ELBOW MASS) Procedures: Kristin KAUR/Zo L4 -------- Patient: Mariano Gutierrez [id number] (Continued) -------- Signed (signature on file) Brandy Keane MD 07/08/23 2513 Normal [facility] XR elbow LT 2Von 02-26-2023 XR elbow LT 2V [address] [address] XRay Report Signed Patient: Mariano Gutierrez MR#: [id number] : 1950 Acct:[id number] Age/Sex: 72 / M ADM Date: 02/26/23 Loc: [facility] Room: Type: [facility] Attending Dr: Erickson Nascimento DO Copies [...] Blount Jr., D.OJeferson02/26/2023 2:56 PM Dictation Location: [place] [address] Transcribed By: [facility] 02/26/23 1456 Dictated By: Abdirahman Blount Jr, DO 02/26/23 1455 Signed By: 02/26/23 1456 Normal [facility] GLYCOHEMOGLOBIN A1Con 2022 ADA RECOMMENDATION SEE BELOW Normal [facility] Comment on above: Result Comment: ADA RECOMMENDED LIMIT 4.0 - 6.0 ADA THERAPEUTIC TARGET < 7.0 ACTION SUGGESTED > 7.0 Performed By: #### D ATA1C #### [facility] [address] [place] [address] Dr. Ginger Keane Glucose [Mass/Vol] 123 mg/dL Normal [facility] Comment on above: Performed By: #### D ATA1C #### [facility] [address] [address] [address] Ginger Keane HbA1c (Bld) [Mass fraction] 5.9 % Normal 4.5-6.2 [facility] Comment on above: Performed By: #### D ATA1C #### [facility] [address] [place] [address] [address] Ginger Keane GLYCOHEMOGLOBIN A1Con 2021 ADA RECOMMENDATION SEE BELOW Normal [facility] Comment on above: Result Comment: ADA RECOMMENDED LIMIT 4.0 - 6.0 ADA THERAPEUTIC TARGET < 7.0 ACTION SUGGESTED > 7.0 Performed By: #### D ATA1C #### [facility] [address] [place] [address] Dr. Ginger Keane Glucose [Mass/Vol] 160 mg/dL Normal [facility] Comment on above: Performed By: #### D ATA1C #### [facility] [address] [place] [address] Dr. Ginger Keane HbA1c (Bld) [Mass fraction] 7.2 % Critically high 4.5 -6.2 [facility] Comment on above: Performed By: #### D ATA1C #### [facility] [address] [place] [address] Dr. Ginger Keane MICROALBUMIN URINEon 022 Albumin, Urine 123.8 ug/mL Normal Not Estab. [facility] Comment on above: Performed By: #### M ALBLC #### [facility] [address] [place] [address] Dr. Ginger Keane CBC AUTO DIFFon 05-15-2022 BASO # 0.1 103/ul Normal 0.0-0.1 [facility] Comment on above: Performed By: #### C BC #### [facility] [address] [place] [address] Dr. Ginger Keane Basophils/100 WBC (Bld) 0.6 % Normal 0.2-2.0 [facility] Comment on above: Performed By: #### C BC #### [facility] [address] [place] [address] Dr. Ginger Keane EO # 0.2 103/ul Normal 0.0-0.7 [facility] Comment on above: Performed By: #### C BC #### [facility] [address] [place] [address] Dr. Ginger Keane Eosinophils/100 WBC (Bld) 2.9 % Normal 0.9-7.0 [facility] Comment on above: Performed By: #### C BC #### [facility] [address] [place] [address] Dr. Ginger Keane Erythrocyte distribution width (RBC) [Ratio] 12.9 % Normal 11.0-15.0 [facility] Comment on above: Performed By: #### C BC #### [facility] [address] [place] [address] Dr. Ginger Keane Hematocrit (Bld) [Volume fraction] 44.3 % Normal 42.0-54.0 [facility] Comment on above: Performed By: #### C BC #### [facility] [address] [place] [address] Dr. Ginger Keane Hemoglobin (Bld) [Mass/Vol] 15.6 g/dL Normal 14.0-18. 0 [facility] Comment on above: Performed By: #### C BC #### [facility] [address] [place] [address] Dr. Ginger Keane IG # 0.01 10e3/ul Normal 0.00-0.03 [facility] Comment on above: Performed By: #### C BC #### [facility] [address] [place] [address] Dr. Ginger Keane IG % 0.1 % Normal 0.0-0.5 [facility] Comment on above: Performed By: #### C BC #### [facility] [address] [place] [address] Dr. Ginger Keane LYMPH # 2.9 103/ul Normal 1.2-3.8 [facility] Comment on above: Performed By: #### C BC #### [facility] [address] [place] [address] Dr. Ginger Keane Lymphocytes/100 WBC (Bld) 34.1 % Normal 20.5-60.0 [facility] Comment on above: Performed By: #### C BC #### [facility] [address] [place] [address] Dr. Ginger Keane MANUAL DIFF REQ NO Normal [facility] Comment on above: Performed By: #### C BC #### [facility] [address] [place] [address] Dr. Ginger Kaene MCH (RBC) [Entitic mass] 32.8 pg Normal 25.9-34.0 [facility] Comment on above: Performed By: #### C BC #### [facility] [address] [address] [address] Ginger Keane MCHC (RBC) [Mass/Vol] 35.2 g/dL Normal 29.9-35.2 [facility] Comment on above: Performed By: #### C BC #### [facility] [address] [address] [address] Ginger Keane MCV (RBC) [Entitic vol] 93.3 fL Normal 80.0-94.0 [facility] Comment on above: Performed By: #### C BC #### [facility] [address] [place] [address] Dr. Ginger Keane MONO # 0.6 103/ul Normal 0.3-0.8 [facility] Comment on above: Performed By: #### C BC #### [facility] [address] [place] [address] Dr. Ginger Keane Monocytes/100 WBC (Bld) 7.5 % Normal 1.7-12.0 [facility] Comment on above: Performed By: #### C BC #### [facility] [address] [place] [address] Dr. Ginger Keane NEUT # 4.6 103/ul Normal 1.4-6.5 [facility] Comment on above: Performed By: #### C BC #### [facility] [address] [place] [address] Dr. Ginger Keane Neutrophils/100 WBC (Bld) 54.8 % Normal 43.0-75.0 [facility] Comment on above: Performed By: #### C BC #### [facility] [address] [address] [address] Ginger Keane Platelet mean volume (Bld) [Entitic vol] 9.7 fL Normal 9.5-13.5 [facility] Comment on above: Performed By: #### C BC #### [facility] [address] [place] [address] Dr. Ginger Keane PLT 260 103/ul Normal 150-450 [facility] Comment on above: Performed By: #### C BC #### [facility] [address] [address] [address] Ginger Keane RBC 4.75 106/ul Normal 4.70-6.10 [facility] Comment on above: Performed By: #### C BC #### [facility] [address] [address] [address] Ginger Keane WBC 8.4 103/ul Normal 4.0-11.0 [facility] Comment on above: Performed By: #### C BC #### [facility] [address] [place] [address] Dr. Ginger Keane LIPID PROFILEon 05-15-2022 CHOL-HDL RATIO NORM SEE BELOW Normal [facility] Comment on above: Result Comment: 3.3 - 4.4 LOW RISK 4.4 - 7.1 AVERAGE RISK 7.1 - 11.0 MODERATE RISK >11.0 HIGH RISK Performed By: #### B MP, LIPID, ALT #### [facility] [address] [place] [address] Dr. Ginger Keane Cholesterol [Mass/Vol] 119 mg/dL Normal <=200 Th [facility] Comment on above: Performed By: #### B MP, LIPID, ALT #### [facility] [address] [place] [address] Dr. Ginger Keane Cholesterol in HDL [Mass/Vol] 37 mg/dL Critically low 40-60 [facility] Comment on above: Performed By: #### B MP, LIPID, ALT #### [facility] [address] [place] [address] Dr. Ginger Keane Cholesterol in LDL [Mass/Vol] 35.2 mg/dL Normal [facility] Comment on above: Performed By: #### B MP, LIPID, ALT #### [facility] [address] [place] [address] Dr. Ginger Keane Cholesterol.total/Cholester ol in HDL [Mass ratio] 3.2 {ratio} Normal [facility] Comment on above: Performed By: #### B MP, LIPID, ALT #### [facility] [address] [place] [address] Dr. Ginger Keane HDL NORMAL > or = 60 mg/dl - LO W CARDIOVASCULAR RISK <40 mg/dl - HIGH CARDIOVASCULAR RISK Normal [facility] Comment on above: Performed By: #### B MP, LIPID, ALT #### [facility] [address] [address] [address] Ginger Keane LDL CALC NORMAL SEE BELOW Normal [facility] Comment on above: Result Comment: <100 mg/dl OPTIMAL 100 - 129 mg/dl NEAR OR ABOVE OPTIMAL 130 - 159 mg/dl BORDERLINE HIGH 160 - 189 mg/dl HIGH >190 mg/dl VERY HIGH Performed By: #### B MP, LIPID, ALT #### [facility] [address] [address] [address] Ginger Keane Triglyceride [Mass/Vol] 234 mg/dL Critically high <=150 [facility] Comment on above: Performed By: #### B MP, LIPID, ALT #### [facility] [address] [place] [address] Dr. Ginger Keane VLDL CALC 46.8 mg/dL Normal [facility] Comment on above: Performed By: #### B MP, LIPID, ALT #### [facility] [address] [address] [address] Ginger Keane PROF CHEM 8 (BAS METB)on Anion gap [Moles/Vol] 13.3 mmol/L Normal [facility] Comment on above: Performed By: #### B MP, LIPID, ALT #### [facility] [address] [address] [address] Ginger Keane Calcium [Mass/Vol] 8.7 mg/dL Normal 8.5-10.1 [facility] Comment on above: Performed By: #### B MP, LIPID, ALT #### [facility] [address] [address] [address] Ginger Keane Chloride [Moles/Vol] 102 mmol/L Normal 98-107 [facility] Comment on above: Performed By: #### B MP, LIPID, ALT #### [facility] [address] [address] [address] Ginger Keane CO2 [Moles/Vol] 26.8 mmol/L Normal 21.0-32.0 [facility] Comment on above: Performed By: #### B MP, LIPID, ALT #### [facility] [address] [address] [address] Ginger Keane Creatinine [Mass/Vol] 0.92 mg/dL Normal 0.70-1.30 [facility] Comment on above: Performed By: #### B MP, LIPID, ALT #### [facility] [address] [address] [address] Ginger Keane EGFR-AF BRITISH >60 Normal >=60 [facility] Comment on above: Performed By: #### B MP, LIPID, ALT #### [facility] [address] [address] [address] Ginger Keane EGFR-NON AF BRITISH >60 Normal >=60 [facility] Comment on above: Performed By: #### B MP, LIPID, ALT #### [facility] [address] [address] [address] Ginger Keane Glucose [Mass/Vol] 161 mg/dL Critically high 74-106 T [facility] Comment on above: Performed By: #### B MP, LIPID, ALT #### [facility] [address] [place] [address] Dr. Ginger Keane Potassium [Moles/Vol] 4.1 mmol/L Normal 3.5-5.1 [facility] Comment on above: Performed By: #### B MP, LIPID, ALT #### [facility] [address] [address] [address] Ginger Keane Sodium [Moles/Vol] 138 mmol/L Normal 136-145 [facility] Comment on above: Performed By: #### B MP, LIPID, ALT #### [facility] [address] [address] [address] Ginger Keane Urea nitrogen [Mass/Vol] 13.0 mg/dL Normal 7.0-18.0 [facility] Comment on above: Performed By: #### B MP, LIPID, ALT #### [facility] [address] [place] [address] Dr. Ginger Keane Urea nitrogen/Creatinine [Mass ratio] 14.1 mg/mg Normal [facility] Comment on above: Performed By: #### B MP, LIPID, ALT #### [facility] [address] [address] [address] [facility] ALT [Catalytic activity/Vol] 26 U/L Normal 16-63 [facility] Comment on above: Performed By: #### B MP, LIPID, ALT #### [facility] [address] [address] [address] Ginger Keane GLYCOHEMOGLOBIN A1Con 2021 ADA RECOMMENDATION SEE BELOW Normal [facility] Comment on above: Result Comment: ADA RECOMMENDED LIMIT 4.0 - 6.0 ADA THERAPEUTIC TARGET < 7.0 ACTION SUGGESTED > 7.0 Performed By: #### D ATA1C #### [facility] [address] [address] [address] Ginger Keane Glucose [Mass/Vol] 146 mg/dL Normal [facility] Comment on above: Performed By: #### D ATA1C #### [facility] [address] [address] [address] Ginger Keane HbA1c (Bld) [Mass fraction] 6.7 % Critically high 4.5 -6.2 [facility] Comment on above: Performed By: #### D ATA1C #### [facility] [address] [address] [address] Ginger Keane Vital Signs Date Time Vital Sign Value Performing Clinician Facility 05-26-2024 13: Body height 180.34 cm [facility] 05-26-2024 13:040 Body mass index (BMI) [Ratio] 28.2 kg/m2 [facility] 05-26-2024 13: Body weight 91.73 kg [facility] 05-26-2024 13:28040 Diastolic blood pressure 64 mm[Hg] [facility] 05-26-2024 13:28040 Heart rate 77 /min [facility] 05-26-2024 13:28040 Systolic blood pressure 122 mm[Hg] [facility] 12-30-2023 11:02-0400 Body height 180.34 cm DO Vernon Ball Work Phone: [facility] 12-30-2023 11:02-0400 Body mass index (BMI) [Ratio] 26.4 kg/m2 DO Vernon Ball Work Phone: [facility] 12-30-2023 11:02-0400 Body weight 85.89 kg DO Vernon Ball Work Phone: [facility] 12-30-2023 11:02-0400 Diastolic blood pressure 72 mm[Hg] DO Vernon Ball Work Phone: [facility] 12-30-2023 11:02-0400 Heart rate 93 /min DO Vernon Ball Work Phone: [facility] 12-30-2023 11:02-0400 Respiratory rate 16 /min DO Vernon Ball Work Phone: [facility] 12-30-2023 11:02-0400 Systolic blood pressure 123 mm[Hg] DO Vernon Ball Work Phone: [facility] 10-20-2023 15:23-0500 Body height 180.34 cm [facility] 10-20-2023 15:23-0500 Body mass index (BMI) [Ratio] 25.5 kg/m2 [facility] 10-20-2023 15:23-0500 Body weight 83.09 kg [facility] 10-20-2023 15:23-0500 Diastolic blood pressure 65 mm[Hg] [facility] 10-20-2023 15:23-0500 Heart rate 99 /min [facility] 10-20-2023 15:23-0500 Respiratory rate 20 /min [facility] 10-20-2023 15:23-0500 Systolic blood pressure 126 mm[Hg] [facility] 10-01-2023 10:00-0500 Body height 180.34 cm Vernon Ball Other [facility] 01-31-2024 10:00-0500 Diastolic blood pressure 70 mm[Hg] Vernon Ball Other [facility] 10-01-2023 10:00-0500 SaO2% (BldA) [Mass fraction] 90 % Vernon Ball Other [facility] [employer] Other 10-01-2023 10:00-0500 Systolic blood pressure 124 mm[Hg] Vernon Ball Other [facility] 08-29-2023 10:00-0500 Body height 180.34 cm Vernon Ball Other [facility] 08-29-2023 10:00-0500 Body mass index (BMI) [Ratio] 25.63 kg/m2 Vernon Ball Other [facility] [employer] Other 08-29-2023 10:00-0500 Body weight 83.37 kg Vernon Ball Other [facility] 08-29-2023 10:00-0500 Diastolic blood pressure 63 mm[Hg] Vernon Ball Other [facility] 08-29-2023 10:00-0500 Respiratory rate 20 /min Vernon Ball Other [facility] [employer] Other 08-29-2023 10:00-0500 SaO2% (BldA) [Mass fraction] 84 % Vernon Ball Other [facility] [employer] Other 08-29-2023 10:00-0500 Systolic blood pressure 109 mm[Hg] Vernon Ball Other [facility] 08-12-2023 11:00-0500 Body height 180.34 cm Vernon Ball Other [facility] 08-12-2023 11:00-0500 Body mass index (BMI) [Ratio] 25.55 kg/m2 Vernon Ball Other [facility] [employer] Other 08-12-2023 11:00-0500 Body weight 83.1 kg Vernon Ball Other [facility] [employer] Other 08-12-2023 11:00-0500 Body weight 83.09 kg [facility] 08-12-2023 11:00-0500 Diastolic blood pressure 88 mm[Hg] Vernon Ball Other [facility] 08-12-2023 11:00-0500 Respiratory rate 20 /min Vernon Ball Other [facility] [employer] Other 08-12-2023 11:00-0500 SaO2% (BldA) [Mass fraction] 94 % Vernon Ball Other [facility] [employer] Other 08-12-2023 11:00-0500 Systolic blood pressure 120 mm[Hg] Vernon Ball Other [facility] 07-10-2023 11:45-0500 Body height 180.34 cm Vernon Ball Other [employer] Other 07-10-2023 11:45-0500 Body mass index (BMI) [Ratio] 26.22 kg/m2 Vernon Ball Other [employer] Other 07-10-2023 11:45-0500 Body weight 85.28 kg Vernon Ball Other [employer] Other 07-10-2023 11:45-0500 Diastolic blood pressure 75 mm[Hg] Vernon Ball Other [employer] Other 07-10-2023 11:45-0500 Respiratory rate 16 /min Vernon Ball Other [employer] Other 07-10-2023 11:45-0500 Systolic blood pressure 129 mm[Hg] Vernon Ball Other [employer] Other 07-04-2023 08:03-0400 Diastolic blood pressure 93 mm[Hg] DO Vernon Ball Work Phone: [facility] 07-04-2023 08:03-0400 Heart rate 89 /min DO Vernon Ball Work Phone: [facility] 07-04-2023 08:03-0400 Respiratory rate 16 /min DO Vernon Ball Work Phone: [facility] 07-04-2023 08:03-0400 SaO2% (BldA) [Mass fraction] 93 % DO Vernon Ball Work Phone: [facility] 07-04-2023 08:03-0400 Systolic blood pressure 140 mm[Hg] DO Vernon Ball Work Phone: [facility] 07-04-2023 06:47-0400 Body height 180.34 cm DO Evrnon Ball Work Phone: [facility] 07-04-2023 06:47-0400 Body temperature 98.2 [degF] DO Vernon Ball Work Phone: [facility] 07-04-2023 06:47-0400 Body weight 86.18 kg DO Vernon Ball Work Phone: [facility] 07-02-2023 13:45-0400 Body height 180.34 cm Erickson Nascimento Other [employer] Other 07-02-2023 13:45-0400 Body mass index (BMI) [Ratio] 26.5 kg/m2 Erickson Nascimento Other [employer] Other 07-02-2023 13:45-0400 Body weight 86.18 kg Erickson Nascimento Other [employer] Other 05-20-2023 10:00-0400 Body height 180.34 cm Vernon [employer] Other [employer] Other 05-20-2023 10:00-0400 Body mass index (BMI) [Ratio] 26.64 kg/m2 Vernon Ball Other [employer] Other 05-20-2023 10:00-0400 Body weight 86.64 kg Vernon Ball Other [employer] Other 05-20-2023 10:00-0400 Diastolic blood pressure 74 mm[Hg] Vernon Ball Other [employer] Other 05-20-2023 10:00-0400 Respiratory rate 12 /min Vernon Ball Other [employer] Other 05-20-2023 10:00-0400 Systolic blood pressure 117 mm[Hg] Vernon Ball Other [employer] Other 02-17-2023 10:30-0400 Body height 180.34 cm Vernon Ball Other [employer] Other 02-17-2023 10:30-0400 Body mass index (BMI) [Ratio] 27.58 kg/m2 Vernon Ball Other [employer] Other 02-17-2023 10:30-0400 Body weight 89.72 kg Evrnon Ball Other [employer] Other 02-17-2023 10:30-0400 Diastolic blood pressure 78 mm[Hg] Vernon Ball Other [employer] Other 02-17-2023 10:30-0400 Respiratory rate 12 /min Vernon Ball Other [employer] Other 02-17-2023 10:30-0400 Systolic blood pressure 128 mm[Hg] Vernon Ball Other [employer] Other 11-18-2022 11:30-0400 Body height 180.34 cm Vernon Ball Other [employer] Other 11-18-2022 11:30-0400 Body mass index (BMI) [Ratio] 27.42 kg/m2 Vernon Ball Other [employer] Other 11-18-2022 11:30-0400 Body weight 89.18 kg Vernon Ball Other [employer] Other 11-18-2022 11:30-0400 Diastolic blood pressure 70 mm[Hg] Vernon Ball Other [employer] Other 11-18-2022 11:30-0400 Respiratory rate 12 /min Vernon Ball Other [employer] Other 11-18-2022 11:30-0400 Systolic blood pressure 122 mm[Hg] Vernon Ball Other [employer] Other Encounters Encounter Date Encounter Type Care Provider Facility Start: 05-26-2024 End: 05-26-2024 ambulatory [facility] Work Phone: Start: 05-26-2024 End: 05-26-2024 Patient encounter procedure [facility] Work Phone: Start: 05-24-2024 Patient encounter procedure [facility] Start: 05-17-2024 End: 05-17-2024 ambulatory CHELA ZARATE Not Available Start: 03-11-2024 Non-patient / Non-visit [facility] [employer] Work Phone: Start: 12-31-2023 End: 12-31-2023 ambulatory Carlos Guzmán Facility:[facility] Start: 12-30-2023 End: 12-30-2023 ambulatory DO Vernon Ball Work Phone: [facility] Work Phone: Start: 12-30-2023 End: 12-30-2023 Patient encounter procedure DO Vernon Greene Work Phone: [facility] Work Phone: Start: 12-29-2023 Non-patient / Non-visit DO Skinny Greene Work Phone: [facility] [employer] Work Phone: Start: 12-22-2023 Non-patient / Non-visit DO Skinny Greene Work Phone: [facility] [employer] Work Phone: Start: 12-09-2023 End: 12-09-2023 ambulatory [facility] Facility:[facility] Start: 12-09-2023 End: 12-09-2023 ambulatory DO Vernon Greene Work Phone: [facility] Work Phone: Start: 12-09-2023 End: 12-09-2023 Patient encounter procedure DO Vernon Greene Work Phone: [facility] [address] Work Phone: Start: 11-26-2023 End: 11-26-2023 ambulatory Vernon Greene Other [facility] [employer] Other Start: 11-26-2023 Telephone encounter Vernon Greene [facility] Start: 11-24-2023 End: 11-24-2023 ambulatory [place] Facility:[facility] Start: 11-24-2023 End: 11-24-2023 ambulatory DO Vernon Greene Work Phone: [facility] Work Phone: Start: 11-24-2023 End: 11-24-2023 Patient encounter procedure DO Vernon Greene Work Phone: [facility] [address] Work Phone: Start: 10-28-2023 Non-patient / Non-visit DO Skinny Greene Work Phone: [facility] Work Phone: Start: 10-20-2023 End: 10-20-2023 ambulatory [facility] Work Phone: Start: 10-20-2023 End: 10-20-2023 Patient encounter procedure [facility] Work Phone: Start: 10-14-2023 Non-patient / Non-visit DO Skinny Greene Work Phone: [facility] Work Phone: Start: 10-07-2023 End: 10-07-2023 ambulatory Vernon Greene Other [employer] Other Start: 10-07-2023 Telephone encounter Vernon KANG [facility] Start: 10-06-2023 End: 10-06-2023 ambulatory Vernon Greene Other [employer] Other Start: 10-06-2023 Telephone encounter Vernon KANG [facility] Start: 10-01-2023 End: 10-01-2023 ambulatory Imad Asaad Other [employer] Other Start: 10-01-2023 Office outpatient vi sit 25 minutes Vernon Greene [facility] Start: 10-01-2023 Telephone encounter Imad Asaad [facility] Start: 10-01-2023 End: 10-01-2023 Patient encounter procedure [facility]- Start: 09-02-2023 End: 09-02-2023 ambulatory Vernon Greene Other [employer] Other Start: 09-02-2023 Telephone encounter Vernon KANG [facility] Start: 08-29-2023 End: 08-29-2023 ambulatory Vernon Greene Other [employer] Other Start: 08-29-2023 Office outpatient vi sit 25 minutes Vernon Greene [facility] Start: 08-29-2023 End: 08-29-2023 Patient encounter procedure [facility] Work Phone: Start: 08-12-2023 End: 08-12-2023 ambulatory Vernon Greene Other [employer] Other Start: 08-12-2023 Transitional care nicole cleary srvc 14 day discharge Vernon Greene [facility] Start: 08-12-2023 End: 08-12-2023 Patient encounter procedure [facility] Work Phone: Start: 08-06-2023 End: 08-06-2023 ambulatory Vernon Greene Other [employer] Other Start: 08-06-2023 Telephone encounter Vernon Greene [facility] Start: 08-01-2023 End: 08-01-2023 ambulatory Vernon Greene Other [employer] Other Start: 08-01-2023 Telephone encounter Vernon Greene [facility] Start: 07-30-2023 End: 07-30-2023 ambulatory Vernon Greene Other [employer] Other Start: 07-30-2023 Telephone encounter Vernon KANG [facility] Start: 07-16-2023 End: 07-16-2023 ambulatory Navneet Puga Other [employer] Other Start: 07-16-2023 Telephone encounter Navneet Ramires [facility] Start: 07-13-2023 End: 07-13-2023 ambulatory Vernon Greene Other [employer] Other Start: 07-13-2023 Telephone encounter Vernon Greene [facility] Start: 07-10-2023 End: 07-10-2023 ambulatory Vernon Greene Other [employer] Other Start: 07-10-2023 Office outpatient vi sit 25 minutes Vernon Greene [facility] Start: 07-10-2023 Telephone encounter Vernon Greene [facility] Start: 07-04-2023 Telephone encounter Vernon Greene [facility] Start: 07-04-2023 End: 07-04-2023 ambulatory Erickson Nascimento Facility:[facility] Start: 07-04-2023 End: 07-04-2023 Admission to same day surgery center DO Vernon Ball Work Phone: [facility] [place] Start: 07-04-2023 End: 07-04-2023 ambulatory DO Vernon Ball Work Phone: [facility] Work Phone: Start: 07-02-2023 End: 07-02-2023 ambulatory Erickson Nascimento Other [employer] Other Start: 07-02-2023 Office outpatient vi sit 25 minutes Erickson Nascimento [facility] Start: 05-21-2023 End: 05-21-2023 ambulatory Vernon Greene Other [employer] Other Start: 05-21-2023 Telephone encounter Vernon Greene [facility] Start: 05-20-2023 End: 05-20-2023 ambulatory Vernon Greene Other [employer] Other Start: 05-20-2023 Patient encounter procedure Vernon Greene [facility] Start: 02-27-2023 End: 02-27-2023 ambulatory Erickson Nascimento Other [employer] Other Start: 02-27-2023 Telephone encounter Erickson KANG G [facility] Start: 02-26-2023 End: 02-26-2023 ambulatory Erickson Nascimento Facility:[facility] Start: 02-26-2023 End: 02-26-2023 Patient encounter procedure DO Erickson Nascimento Work Phone: [facility] Start: 02-26-2023 End: 02-26-2023 ambulatory DO Erickson Nascimento Work Phone: [facility] Work Phone: Start: 02-26-2023 Office outpatient ne w 45 minutes Erickson Pily [facility] Start: 02-17-2023 End: 02-17-2023 ambulatory Vernon Ball Other [employer] Other Start: 02-17-2023 Office outpatient vi sit 25 minutes Vernon Ball [facility] Start: 01-09-2023 End: 01-09-2023 ambulatory Vernon Ball Other [employer] Other Start: 01-09-2023 Telephone encounter Vernon Ball [facility] Start: 12-24-2022 End: 12-24-2022 ambulatory Vernon Ball Other [employer] Other Start: 12-24-2022 Telephone encounter Vernon Ball [facility] Start: 11-26-2022 End: 11-26-2022 ambulatory Vernon Ball Other [employer] Other Start: 11-26-2022 Telephone encounter Vernon Ball [facility] Start: 11-25-2022 End: 11-26-2022 ambulatory VERNON BALL Facility:[facility] Start: 11-18-2022 End: 11-18-2022 ambulatory Vernon Ball Other [employer] Other Start: 11-18-2022 Office outpatient vi sit 25 minutes Vernon Ball [facility] Start: 11-15-2022 End: 11-16-[address] NONE LISTED REQUEST Facility:[facility] Start: 11-07-2022 End: 11-07-2022 ambulatory Vernon Ball Other [employer] Other Start: 11-07-2022 Telephone encounter Vernon Greene [...] Comment on above: Performed By: #### P [facility] #### [facility] [address] [place] [address] Dr. Ginger Keane Plan of Treatment Date Care Activity Detail Author Start: 11-24-2023 Hemolytic complement CH50 level [facility] Start: 11-24-2023 Hepatitis B core ant ibody measurement [facility] Start: 11-24-2023 [facility] Start: 10-20-2023 Patient referral [facility] Work Phone: Start: 07-04-2023 [facility] 24 hour urine measurement [facility] Adenosine monophosph ate.cyclic [Moles/volume] in Serum or Plasma [facility] Albumin [Mass/volume ] in Serum or Plasma [facility] Albumin/Globulin ratio [facility] Complement C3 [Mass/ volume] in Serum or Plasma [facility] Complement C4 [Mass/ volume] in Serum or Plasma [facility] Comprehensive metabo lic 1999 panel - Serum or Plasma [facility] Comprehensive metabo lic 1999 panel - Serum or Plasma [facility] Electrophoresis: [id number] [facility] Electrophoresis: [id number] [facility] Electrophoresis: beta-globulin [facility] Electrophoresis: gamma globulin [facility] Globulin [Mass/volume] in Serum [facility] Hepatitis B virus elizabeth rface Ab [Presence] in Serum [facility] Hepatitis B virus elizabeth rface Ag [Presence] in Serum or Plasma by Immunoassay [facility] Hepatitis C virus Ig G Ab [Presence] in Serum or Plasma by Immunoassay [facility] Homogenous nuclear A b pattern [Titer] in Serum [facility] IgA [Mass/volume] in Serum or Plasma [facility] IgG [Mass/volume] in Serum or Plasma [facility] IgM [Mass/volume] in Serum or Plasma [facility] Immunofixation for Urine [facility] [place] light chains.f ree [Mass/volume] in Serum [facility] [place] light chains.f ree/Lambda light chains.free [Mass Ratio] in Serum [facility] Lambda light chains. free [Mass/volume] in Serum or Plasma [facility] Measurement of monoc lonal protein concentration [facility] Microalbumin [Mass/volume] in Urine [facility] Myeloperoxidase Ab [ Units/volume] in Serum by Immunoassay [facility] Neutrophil cytoplasm ic Ab.classic [Titer] in Serum by Immunofluorescence [facility] Neutrophil cytoplasm ic Ab.perinuclear.atypical [Titer] in Serum by Immunofluorescence [facility] Nuclear Ab [Titer] in Serum [facility] P-ANCA measurement [facility] Patient referral [facility] Work Phone: Protein [Mass/volume ] in Serum or Plasma [facility] Protein [Mass/volume] in Urine [facility] Proteinase 3 Ab [Uni ts/volume] in Serum by Immunoassay [facility] Rheumatoid factor [U nits/volume] in Serum or Plasma [facility] Serum immunofixation [facility] Immunizations Immunization Date Immunization Notes Care Provider Izabel ernandez 05-25-2018 pneumococcal polysaccharide vaccine, 23 valent Vernon Greene Other [facility] 07-01-2017 diphtheria, tetanus toxoids and acellular pertussis vaccine, unspecified formulation Vernon Greene Other [facility] 07-01-2017 pneumococcal conjuga te vaccine, 13 valent Vernon Greene Other [facility] Payers Date Payer Category Payer Medicare [id number] 2. [id number] 1958 Self-pay 1950 Unknown [id number] 2.16.84 0.1.897035.3.579.2.593 1950 Unknown [id number] 2.16.84 0.1.705215.3.579.2.593 1950 Unknown [id number] 2.16.84 0.1.053531.3.579.2.1259 1950 Unknown [id number] 2.16.84 0.1.414927.3.579.2.1259 Unknown [id number] 2.16.84 0.1.942963.3.579.2.593 Unknown [id number] 2.16.84 0.1.948096.3.579.2.593 Unknown [id number] 2.16.84 0.1.504193.3.579.2.593 Unknown [id number] 2.16.8 40.1.393239.3.579.2.531 Unknown [id number] 2.16.8 40.1.614288.3.579.2.531 Unknown [id number] 2.16.8 40.1.577679.3.579.2.531 Unknown [id number] 2.16.8 40.1.188973.3.579.2.531 Unknown [id number] 2.16.8 40.1.813826.3.579.2.531 Social History Date Type Detail Facility Sex Assigned At [employer] Other Start: 1950 Sex Assigned At Male F [facility] Start: 07-04-2023 End: 07-04-2023 Tobacco smoking status NHIS Ex-smoker (finding) [facility] Goals Date Patient Goal Desired Activity /State Clinical Notes 11-18-2022 to 10-06-2023 Note Date & Type Note Facility 10-06-2023 Evaluation note Encounter Date Diagnosis Assessment Notes Oct, Interstitial lung disease (ICD-10 - J84.9) Oct, Hypoxia (ICD-10 - R09.02) Oct, Nicotine dependence, cigarettes, in remission (ICD-10 - F17.211) Age started 17 1 ppd Age quit 52 [employer] Other 01-31-2024 Evaluation note* Encounter Date Diagnosis [...] as needed. CXR, f/u from COVID infection [employer] Other 12-29-2023 Evaluation note* Encounter Date Diagnosis [...] 1 ppd Age quit 52 Continue abstinence [employer] Other 12-12-2023 Evaluation note* Encounter Date Diagnosis [...] and hypoxia. MDI and oxygen for now. [employer] Other 12-01-2023 Evaluation note* Encounter Date Diagnosis Assessment Notes Treatment Notes Treatment Clinical Notes Aug, Weight loss (ICD-10 - R63.4) [employer] Other 11-09-2023 Evaluation note* Encounter Date Diagnosis [...] or bowel habits. No melena or hematochezia [employer] Other 11-01-2023 Evaluation note* Encounter Date Diagnosis [...] poor healing. I have advised against the supervisor intermediates use of narcotic pain medication. I have [...] Jul, Elbow mass, left (ICD-10 - R22.32) [employer] Other 09-19-2023 Evaluation note* Encounter Date Diagnosis [...] PSA (prostate specific antigen) (ICD-10 - Z12.5) [employer] Other 06-28-2023 Evaluation note* Encounter Date Diagnosis [...] as documented in the electronic medical record. [employer] Other 06-19-2023 Evaluation note* Encounter Date Diagnosis [...] wks. Nontender and mobile. Refer to Orthopedics [employer] Other 03-27-2023 NotePROCEDURE: XR KNEE LT 3V [...] Electronically authenticated by: VINNY MURILLO Date: 2022-11-25 10:55[facility]03-20-2023 Evaluation note* Encounter Date Diagnosis [...] Initiate PPI and if no improvement, EGD [facility] [employer] Other Evaluation noteNo [facility] [employer] Other Evaluation noteNo assessment information available [facility] Work Phone: evaluation note* Diagnosis Onset Date Resolution Status Inflammatory polyarthritis a cute [facility] Work Phone: evaluation note* Diagnosis Onset Date Resolution Status ASHD (arteriosclerotic heart disease) acute [id number] acute Hypoxia acute ILD (interstitial lung disease) acute Inflammatory polyarthritis a cute Nicotine dependence, cigarettes, in remission acute Sinus tachycardia acute [facility] Work Phone: evaluation note* Diagnosis [...] hyperglycemia acute [facility] Work Phone: [employer] general Narrative - Reported* Type Description Date [...] long-term current use of insulin Surgical History [facility] PTCA/STENT 2002 Surgical History [facility] 2006 Hospitalization History SEE SURGICAL [employer] Other [facility] general Narrative - Reported* Type Description Date [...] long-term current use of insulin Surgical History [facility] PTCA/STENT 2002 Surgical History [facility] 2006 Surgical History Excision left elbow mass 3 Hospitalization History SEE SURGICAL [employer] Other Hospital Discharge instructions Additional Instructions Orthopedic [...] prescribed. You may take Motrin or Tylenol [id number]-cdw-[id number] if you wish. Follow-up in [address] [facility] [address] [place] [address] [phone] Work Phone: Reason for referral (narrative)* Reason *Waiting for appt Referral for recurrent left Olecranon bursa and SC nodule Diagnosis 1 Olecranon bursitis o f left elbow (M70.22) Diagnosis 2 Subcutaneous nodule (R22.9) Referral Organization [facility] [employer] Referring Provider First Name Vernon Referring Provider Last Name Jc Referring Provider Specialty Internal Me diclindsey Referred Organization [facility] Referred Provider Erickson Nascimento Referred Address [address] [facility] [place] [place] Referred Provider Specialty Orthopedic S urgery Referral [...] 02/17/2023 11:21:37 AM >received today, sent P2P [employer] Other Reason for referral (narrative)* Reason Referral for screeni ng colonoscopy and EGD Diagnosis 1 Unexplained weight l oss (R63.4) Diagnosis 2 Epigastric discomfor t (R10.13) Diagnosis 3 Serum lipase elevati on (R74.8) Diagnosis 4 Colon cancer screeni ng (Z12.11) Referral Organization [facility] [employer] Referring Provider First Name Vernon Referring Provider Last Name Jc Referring Provider Specialty Internal Az dicine Referred Organization [facility] Referred Provider Rochelle Woodard Referred Address [address] [place], [place],[address] Referred Provider Specialty Gastroentero logy Referral Priority [...] be done within the next 2-3 wks. [employer] Other Summary Purpose Family History Relationship Condition [...] for Visit ASHD (arteriosclerot ic heart disease) [id number] Hypoxia ILD (interstitial lung disease) Inflammatory polyarthritis Nicotine dependence, cigarettes, in remission Sinus tachycardia Chief Complaint 4 Month Follow Up 1 week M35.9;Z11.59;Z79.899;D89.2 Hand pain Knee Pain Reason for Visit ASHD (arteriosclerot ic heart disease) [id number] Hypoxia ILD (interstitial lung disease) Inflammatory polyarthritis [...] CREATED AUTHOR AUTHOR'S ORGANIZ ATION 01/10/2024 [facility] DATE CREATED AUTHOR AUTHOR'S ORGANIZ ATION 05/23/2024 [facility] Special[facility] EPIC Care Teams (unrecognized sec [...] BE BASED ON THE PRIMARY CLINICAL RECORDS. [facility] [employer] [facility]. provides no warranty or guarantee of the accuracy or completeness of information in this document.
[2024-08-03 14:34] LABS: Basophils Absolute Auto 0.1 10^3/uL (0.0-0.1); Basophils Percent Auto 0.7 % (0.2-2.0); Eosinophils Absolute Auto 0.1 10^3/uL (0.0-0.7); Eosinophils Percent Auto 1.3 % (0.9-7.0); Hematocrit 40.1 % (42.0-54.0); Hemoglobin 13.8 g/dL (14.0-18.0); Immature Granulocytes Abs Auto 0.03 10^3/uL (0.00-0.03); Immature Granulocytes Pct Auto 0.3 % (0.0-0.5); Lymphocytes Absolute Auto 1.9 10^3/uL (1.2-3.8); Lymphocytes Percent Auto 21.6 % (20.5-60.0); Mean Corpuscular HGB Conc 34.4 g/dL (29.9-35.2); Mean Corpuscular Hemoglobin 32.2 pg (25.9-34.0); Mean Corpuscular Volume 93.7 fL (80.0-94.0); Mean Platelet Volume 9.7 fL (9.5-13.5); Monocytes Absolute Auto 0.6 10^3/uL (0.3-0.8); Monocytes Percent Auto 7.2 % (1.7-12.0); Neutrophils Percent Auto 68.9 % (43.0-75.0); Platelet Count 280 10^3/uL (150-450); Red Blood Count 4.28 10^6/uL (4.70-6.10); Red Cell Distribution Width 13.5 % (11.0-15.0); White Blood Count 8.7 10^3/uL (4.0-11.0)
[2024-08-03 14:51] LABS: Erythrocyte Sedimentation Rate 22 mm/hr (<=20)
== END 2024-08-03 13:51 | disposition home or self-care (01) ==
LOC: LAB 13:50
PROVIDERS: PCP Internal Medicine; Visit Provider Internal Medicine Rheumatology
DX: D84.9 Immunodeficiency, unspecified (principal); Z79.620 Long term (current) use of immunosuppressive biologic
CPT/HCPCS: 36415; 85025; 85652

== ENCOUNTER 2024-08-17 13:49 | Outpatient (OUT) | payer MEDICARE, SELFPAY ==
--- OUTSIDE RECORDS SUMMARY | 2024-08-17 14:10 | XMS_ITS | CCD ---
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 Name Role Phone Vernon Greene Unavailable VERNON [...] Provider DO Vernon Greene Primary Care Provider [phone] Navneet Puga Unavailable Asaad, Imad Unavailable DO Vernon Greene Primary Care Provider MD Carlos Guzmán Attending Provider [phone] Carlos Guzmán Admitting Unavailable Carlos Guzmán Attending [...] SUGAR ONCE EVERY DAY for 90 Active [id number] 200 actuat albuterol 0.09 mg/actuat metered dose [...] 12:00am Start: 11-18-2022 take 1 capsule by [facility] once daily Omeprazole 40 MG 1 capsule [...] Coronary arteriosclerosis; Translations: [Atherosclerotic heart disease of [place] coronary artery without angina pectoris] Chronic Diabetes [...] H/O: high risk medication; Translations: [Other terminal manager (current) drug therapy] Episodic Other aftercare (2 sources) Other terminal manager (current) drug therapy; Translations: [OTH ASSISTED CURRENT DRUG THERAPY] Onset: 05-19-2022 Episodic Other [...] (Bld) [Mass/Vol] 13.7 g/dL Low 14.0-18. 0 [facility] QuantiFERON TB Goldon 2023 QFTB Criteria Normal . [facility] Comment on above: Result [...] TB Ag Value 0.02 Normal . [facility] Comment on above: Performed By: #### Q UANT TB ####[facility] , Quant TB Gold Plus Negative Normal Negative [facility] Comment on above: Result [...] interferon gamma. Chemiluminescence immunoassay methodology Performed at: [facility] [address] [id number] Hog Stomach Preparer: Krunal Nichols PhD, Phone: [phone] PERFORMED BY: [place] [address] PATHOLOGIST FIRST DYER ADELFO RAMIREZ M.D. Performed By: #### Q UANT TB ####[facility] , Quant TB2 Ag Value 0.02 Normal . [facility] Comment on above: Performed By: #### Q UANT TB ####[facility] , Quantiferon Nil Value 0.02 Normal . [facility] Comment on above: Performed By: #### Q UANT TB ####[facility] , Quantiferon TB Mitogen >10.00 Normal . [facility] Comment on above: Performed By: #### Q UANT TB ####[facility] , Glucose mean value [Mass/vol ume] in Blood Estimated from glycated hemoglobinon 12-29-2023 Average glucose Estimated from glycated hemoglobin (Bld) [Mass/Vol] 134 mg/dL [facility] Laboratory - Hematology and Cell countson 12-29-2023 HbA1c (Bld) [Mass fraction] 6.3 % 4.5-6.2 [facility] Comment on above: ADA RECOMMENDED LIMI T 4.0 - 6.0ADA THERAPEUTIC TARGET < 7.0ACTION SUGGESTED> 7.0 XR knee BI 2Von 12-09-2023 XR knee BI 2V [facility] [address] [place] [id number] XRay Report Signed Patient: Mariano Gutierrez MR#: [id number] : 1950 Acct:[id number] Age/Sex: 73 / M ADM Date: 12/09/23 Loc: ICXD Room: Type: [facility] Attending Dr: Carlos Guzmán MD Copies to: Carlos Guzmán MD Ordering Provider: Carlos Guzmán MD Date of Service: 12/09/23 XR/XR hand BI 2V: HAND PAIN ([id number]) XR/XR knee BI 2V: KNEE PAIN 2 [...] Gregory Schmidt M.D.12/09/2023 4:00 PM Dictation Location: [place] [address] Transcribed By: [facility] 12/09/23 1600 Dictated By: Gregory Schmidt DO 12/09/23 1556 Signed By: 12/09/23 1600 Normal [facility] VANESSA Antinuclear Antibodieson 11-24-2023 Antinuclear Abs, IFA Positive Critically abnormal . [facility] Comment on above: Result Comment: Nega tive <1:80 Borderline 1:80 Positive >1:80 Performed By: #### K APPA, ANCA PROF, C4, CH50, HBSAB, HBCAB, C3, HCV RX PCR, HBSAG, VANESSA ####[facility] , Homogeneous Pattern 1:640 High . [facility] Comment on above: Result Comment: ICAP nomenclature: [id number] Performed By: #### K APPA, ANCA PROF, C4, CH50, HBSAB, HBCAB, C3, HCV RX PCR, HBSAG, VANESSA ####[facility] , Note 1 Normal . [facility] Comment on above: Result Comment: Prashant bhupendra Potential Disease Association Homogeneous Systemic Lupus Erythematosus, Drug Induced Systemic Lupus Erythematosus, Chronic Autoimmune hepatitis, Juvenile Idiopathic Arthritis Speckled Sjogren Syndrome, Systemic Lupus Erythematosus, Subacute Cutaneous Lupus, Lupus, Congenital Heart Block, Mixed Connective Tissue Disease, Scleroderma-diffuse, Scleroderma-Autoimmune Myositis Overlap Syndrome, Systemic Lupus Ioaqhenqlmshy-Zdelmaeccyw-Zlohykxyva Myositis Overlap Syndrome, Systemic Autoimmune Rheumatic Disease, [...] Cytopenias, Linear Scleroderma, Antiphospholipid Syndrome Performed at: [address] [id number] Hog Stomach Preparer: Krunal Nichols PhD, Phone: [phone] Performed By: #### K APPA, ANCA PROF, C4, CH50, HBSAB, HBCAB, C3, HCV RX PCR, HBSAG, VANESSA ####[facility] , ANCA Profile (ANCA+MPO+PR3)o n 11-24-2023 Antimyeloperoxidase (MPO) Abs 1.8 High 0.0-0.9 [facility] Comment on above: Performed By: #### K APPA, ANCA PROF, C4, CH50, HBSAB, HBCAB, C3, HCV RX PCR, HBSAG, VANESSA ####[facility] , Atypical pANCA <1:20 Normal Neg:<1:20 [facility] Comment on above: Result Comment: The atypical pANCA pattern has been observed in a significant percentage of patients with ulcerative colitis, primary sclerosing cholangitis and autoimmune hepatitis. Performed at: [address] [id number] Hog Stomach Preparer: Blanca Olmedo MD, Phone: [phone] Performed at: [address] [id number] Hog Stomach Preparer: Krunal Nichols PhD, Phone: [phone] Performed By: #### K APPA, ANCA PROF, C4, CH50, HBSAB, HBCAB, C3, HCV RX PCR, HBSAG, VANESSA ####[facility] , Cytoplasmic (C-ANCA) <1:20 Normal Neg:<1:20 [facility] Comment on above: Performed By: #### K APPA, ANCA PROF, C4, CH50, HBSAB, HBCAB, C3, HCV RX PCR, HBSAG, VANESSA ####[facility] , Perinuclear (P-ANCA) <1:20 Normal Neg:<1:20 [facility] Comment on above: Result Comment: The presence of positive fluorescence exhibiting P-ANCA or C-ANCA patterns alone is not specific for the diagnosis of Staci's Granulomatosis (WG) or microscopic polyangiitis. Decisions about treatment should not be based solely on ANCA IFA results. The International ANCA Group Consensus recommends follow up testing of positive sera with both UT- 3 and MPO-ANCA enzyme immunoassays. As many as 5% serum samples are positive only by EIA. Ref. AM J Clin Pathol 1999;111:507-513. Performed By: #### K APPA, ANCA PROF, C4, CH50, HBSAB, HBCAB, C3, HCV RX PCR, HBSAG, VANESSA ####[facility] , Proteinase 3 (PR3) Antibodies <0.2 Normal 0.0-0.9 [facility] Comment on above: Result Comment: PERF ORMED BY: [facility] [address] [place] [address] PATHOLOGIST [employer] DYER ADELFO RAMIREZ M.D. Performed By: #### K APPA, ANCA PROF, C4, CH50, HBSAB, HBCAB, C3, HCV RX PCR, HBSAG, VANESSA ####[facility] , Alanine aminotransferase [En zymatic activity/volume] in Serum or PlasmaOrdered By: Carlos Guzmán on 11-24-2023 ALT [Catalytic activity/Vol] 11 U/L [facility] Albumin [Mass/volume] in Ser um or PlasmaOrdered By: Carlos Guzmán on 11-24-2023 Albumin [Mass/Vol] 3.5 g/dL 2.9-4.4 [facility] Albumin [Mass/volume] in Ser um or Plasma by Bromocresol green (BCG) dye binding methoOrdered By: Carlos Guzmán on 11-24-2023 Albumin BCG dye [Mass/Vol] 3.8 g/dL 3.5-5.7 [facility] Albumin/Protein.total in 24 hour Urine by ElectrophoresisOrdered By: Carlos Guzmán on 11-24-2023 Albumin Elph (24H U) [Mass fraction] 50.7 % . [facility] Alkaline phosphatase [Enzyma tic activity/volume] in Serum or PlasmaOrdered By: Carlos Guzmán on 11-24-2023 ALP [Catalytic activity/Vol] 98 U/L 34-104 [facility] Aspartate aminotransferase [ Enzymatic activity/volume] in Serum or PlasmaOrdered By: Carlos Guzmán on 11-24-2023 AST [Catalytic activity/Vol] 15 U/L 13-39 [facility] Automated erythrocytes count in urine sediment (number/area)Ordered By: Carlos Guzmán on 11-24-2023 RBC Auto (Urine sed) [#/Area] None seen [HPF] 0-4 [facility] Automated leukocytes count i n urine sediment (number/area)Ordered By: Carlos Guzmán on 11-24-2023 WBC Auto (Urine sed) [#/Area] 0-1 [HPF] 0-4 [facility] Basophils Auto (Bld) [#/Vol] Ordered By: Carlos Guzmán on 11-24-2023 Basophils (Bld) [#/Vol] 0.1 10*3/uL 0.0-0.2 [facility] Basophils/100 WBC Auto (Bld) Ordered By: Carlos Guzmán on 11-24-2023 Basophils/100 WBC (Bld) 1.1 % . [facility] Bilirubin Test strip Ql (U)O rdered By: Carlos Guzmán on 11-24-2023 Bilirubin Ql (U) Negative Negative [facility] Bilirubin.total [Mass/volume ] in Serum or PlasmaOrdered By: Carlos Guzmán on 11-24-2023 Bilirubin [Mass/Vol] 0.6 mg/dL 0.3-1.0 [facility] C reactive protein [Mass/vol ume] in Serum or PlasmaOrdered By: Carlos Guzmán on 11-24-2023 CRP [Mass/Vol] 0.6 mg/dL 0.0-0.5 [facility] C-Reactive Proteinon 024 C-Reactive Protein 0.6 mg/dL High 0.0-0.5 [facility] Comment on above: Result Comment: PERF ORMED BY: [facility] [address] [place] [address] PATHOLOGIST [employer] DYER ADELFO RAMIREZ M.D. Performed By: #### I FE,URINE, SVETLANA SERUM, UPE RAND, SPE #### [facility] , #### ESR, ADDONUAPLUS, CRP, CBC, CMP #### [facility] [address] Calcium [Mass/volume] in Ser um or PlasmaOrdered By: Carlos Guzmán on 11-24-2023 Calcium [Mass/Vol] 9.4 mg/dL 8.6-10.3 [facility] Carbon dioxide, total [Moles /volume] in Serum or PlasmaOrdered By: Carlos Guzmán on 11-24-2023 CO2 [Moles/Vol] 28.5 mmol/L 21.0-31.0 [facility] Chloride [Moles/volume] in S lucila or PlasmaOrdered By: Carlos Guzmán on 11-24-2023 Chloride [Moles/Vol] 99 mmol/L 98-107 [facility] Color Auto (U)Ordered By: Elvia Guzmán on 11-24-2023 Color (U) Yellow Yellow [facility] Complement C3on 11-24-2023 Complement C3 135 mg/dL Normal 82-167 [facility] Comment on above: Result Comment: Perf ormed at: - [facility] [address] [id number] Hog Stomach Preparer: Krunal Nichols PhD, Phone: [phone] Performed By: #### K APPA, ANCA PROF, C4, CH50, HBSAB, HBCAB, C3, HCV RX PCR, HBSAG, VANESSA ####[facility] , Complement C4on 11-24-2023 Complement C4 10 mg/dL Low 12-38 [facility] Comment on above: Performed By: #### K APPA, ANCA PROF, C4, CH50, HBSAB, HBCAB, C3, HCV RX PCR, HBSAG, VANESSA ####[facility] , Complement Total (CH50)on Complement Total (CH50) 51 Normal >41 [facility] Comment on above: Result [...] of range values. Performed at: - [facility] [address] [id number] Hog Stomach Preparer: Krunal Nichols PhD, Phone: [phone] PERFORMED BY: [place] [address] PATHOLOGIST [employer] DYER ADELFO RAMIREZ M.D. Performed By: #### K APPA, ANCA PROF, C4, CH50, HBSAB, HBCAB, C3, HCV RX PCR, HBSAG, VANESSA ####[facility] , Complete Blood Count Auto Di ffon 11-24-2023 Basophils (Bld) [#/Vol] 0.1 10*3/uL Normal 0.0-0.2 [facility] Comment on above: Performed By: #### I FE,URINE, SVETLANA SERUM, UPE RAND, SPE #### [facility] , #### ESR, ADDONUAPLUS, CRP, CBC, CMP #### [facility] [address] [place] [address] Basophils/100 WBC (Bld) 1.1 % Normal . [facility] Comment on above: Performed By: #### I FE,URINE, SVETLANA SERUM, UPE RAND, SPE #### [facility] , #### ESR, ADDONUAPLUS, CRP, CBC, CMP #### [facility] [address] [place] [address] Eosinophils (Bld) [#/Vol] 0.2 10*3/uL Normal 0.0-0.45 [facility] Comment on above: Performed By: #### I FE,URINE, SVETLANA SERUM, UPE RAND, SPE #### [facility] , #### ESR, ADDONUAPLUS, CRP, CBC, CMP #### [address] Eosinophils/100 WBC (Bld) 2.0 % Normal . [facility] Comment on above: Performed By: #### I FE,URINE, SVETLANA SERUM, UPE RAND, SPE #### [facility] , #### ESR, ADDONUAPLUS, CRP, CBC, CMP #### [address] Erythrocyte distribution width (RBC) [Ratio] 15.0 % High 12.0-14.8 [facility] Comment on above: Performed By: #### I FE,URINE, SVETLANA SERUM, UPE RAND, SPE #### [facility] , #### ESR, ADDONUAPLUS, CRP, CBC, CMP #### [address] Hematocrit (Bld) [Volume fraction] 38.8 % Normal 38.8-50.0 [facility] Comment on above: Performed By: #### I FE,URINE, SVETLANA SERUM, UPE RAND, SPE #### [facility] , #### ESR, ADDONUAPLUS, CRP, CBC, CMP #### [address] Hemoglobin (Bld) [Mass/Vol] 13.3 g/dL Normal 13.0-17. 0 [facility] Comment on above: Performed By: #### I FE,URINE, SVETLANA SERUM, UPE RAND, SPE #### [facility] , #### ESR, ADDONUAPLUS, CRP, CBC, CMP #### [address] Lymphocytes (Bld) [#/Vol] 2.5 10*3/uL Normal 1.00-4.8 [facility] Comment on above: Performed By: #### I FE,URINE, SVETLANA SERUM, UPE RAND, SPE #### [facility] , #### ESR, ADDONUAPLUS, CRP, CBC, CMP #### [address] Lymphocytes/100 WBC (Bld) 28.6 % Normal . [facility] Comment on above: Performed By: #### I FE,URINE, SVETLANA SERUM, UPE RAND, SPE #### [facility] , #### ESR, ADDONUAPLUS, CRP, CBC, CMP #### [address] MCH (RBC) [Entitic mass] 30.0 pg Normal 27.5-35.2 [facility] Comment on above: Performed By: #### I FE,URINE, SVETLANA SERUM, UPE RAND, SPE #### [facility] , #### ESR, ADDONUAPLUS, CRP, CBC, CMP #### [address] MCV (RBC) [Entitic vol] 87.1 fL Normal 83.5-101 [facility] Comment on above: Performed By: #### I FE,URINE, SVETLANA SERUM, UPE RAND, SPE #### [facility] , #### ESR, ADDONUAPLUS, CRP, CBC, CMP #### [address] Mean Corpuscular HGB Conc 34.4 g/dL Normal 32.5-35.6 [facility] Comment on above: Performed By: #### I FE,URINE, SVETLANA SERUM, UPE RAND, SPE #### [facility] , #### ESR, ADDONUAPLUS, CRP, CBC, CMP #### [address] Monocytes (Bld) [#/Vol] 0.7 10*3/uL Normal 0.0-0.8 [facility] Comment on above: Performed By: #### I FE,URINE, SVETLANA SERUM, UPE RAND, SPE #### [facility] , #### ESR, ADDONUAPLUS, CRP, CBC, CMP #### [address] Monocytes/100 WBC (Bld) 7.8 % Normal . [facility] Comment on above: Performed By: #### I FE,URINE, SVETLANA SERUM, UPE RAND, SPE #### [facility] , #### ESR, ADDONUAPLUS, CRP, CBC, CMP #### [address] Neutrophils (Bld) [#/Vol] 5.4 10*3/uL Normal 1.8-7.7 [facility] Comment on above: Performed By: #### I FE,URINE, SVETLANA SERUM, UPE RAND, SPE #### [facility] , #### ESR, ADDONUAPLUS, CRP, CBC, CMP #### [address] Neutrophils/100 WBC (Bld) 60.5 % Normal . [facility] Comment on above: Performed By: #### I FE,URINE, SVETLANA SERUM, UPE RAND, SPE #### [facility] , #### ESR, ADDONUAPLUS, CRP, CBC, CMP #### [place] [address] [place] NRBC% 0.0 /100{WBC} Normal 0-0.5 [facility] Comment on above: Performed By: #### I FE,URINE, SVETLANA SERUM, UPE RAND, SPE #### [facility] , #### ESR, ADDONUAPLUS, CRP, CBC, CMP #### [address] Platelet mean volume (Bld) [Entitic vol] 7.9 fL Normal 6.6-10.1 [facility] Comment on above: Performed By: #### I FE,URINE, SVETLANA SERUM, UPE RAND, SPE #### [facility] , #### ESR, ADDONUAPLUS, CRP, CBC, CMP #### [address] Platelets (Bld) [#/Vol] 369 10*3/uL Normal 150-450 [facility] Comment on above: Performed By: #### I FE,URINE, SVETLANA SERUM, UPE RAND, SPE #### [facility] , #### ESR, ADDONUAPLUS, CRP, CBC, CMP #### [address] RBC (Bld) [#/Vol] 4.45 10*6/uL Normal 3.90-5.60 [facility] Comment on above: Performed By: #### I FE,URINE, SVETLANA SERUM, UPE RAND, SPE #### [facility] , #### ESR, ADDONUAPLUS, CRP, CBC, CMP #### [address] WBC (Bld) [#/Vol] 8.9 10*3/uL Normal 4.1-10.5 [facility] Comment on above: Performed By: #### I FE,URINE, SVETLANA SERUM, UPE RAND, SPE #### [facility] , #### ESR, ADDONUAPLUS, CRP, CBC, CMP #### [facility] [address] [place] [address] Comprehensive Metabolic Pane eduard 11-24-2023 Albumin [Mass/Vol] 3.8 g/dL Normal 3.5-5.7 [facility] Comment on above: Performed By: #### I FE,URINE, SVETLANA SERUM, UPE RAND, SPE #### [facility] , #### ESR, ADDONUAPLUS, CRP, CBC, CMP #### [address] Albumin/Globulin [Mass ratio] 0.9 {ratio} Normal [facility] Comment on above: Performed By: #### I FE,URINE, SVETLANA SERUM, UPE RAND, SPE #### [facility] , #### ESR, ADDONUAPLUS, CRP, CBC, CMP #### [address] ALP [Catalytic activity/Vol] 98 U/L Normal 34-104 [facility] Comment on above: Performed By: #### I FE,URINE, SVETLANA SERUM, UPE RAND, SPE #### [facility] , #### ESR, ADDONUAPLUS, CRP, CBC, CMP #### [address] ALT [Catalytic activity/Vol] 11 U/L Normal 7-52 [facility] Comment on above: Performed By: #### I FE,URINE, SVETLANA SERUM, UPE RAND, SPE #### [facility] , #### ESR, ADDONUAPLUS, CRP, CBC, CMP #### [address] Anion gap [Moles/Vol] 14.8 mmol/L Normal 6.0-15.0 [facility] Comment on above: Performed By: #### I FE,URINE, SVETLANA SERUM, UPE RAND, SPE #### [facility] , #### ESR, ADDONUAPLUS, CRP, CBC, CMP #### [address] AST [Catalytic activity/Vol] 15 U/L Normal 13-39 [facility] Comment on above: Performed By: #### I FE,URINE, SVETLANA SERUM, UPE RAND, SPE #### [facility] , #### ESR, ADDONUAPLUS, CRP, CBC, CMP #### [facility] [address] Bilirubin [Mass/Vol] 0.6 mg/dL Normal 0.3-1.0 [facility] Comment on above: Performed By: #### I FE,URINE, SVETLANA SERUM, UPE RAND, SPE #### [facility] , #### ESR, ADDONUAPLUS, CRP, CBC, CMP #### [address] Calcium [Mass/Vol] 9.4 mg/dL Normal 8.6-10.3 [facility] Comment on above: Performed By: #### I FE,URINE, SVETLANA SERUM, UPE RAND, SPE #### [facility] , #### ESR, ADDONUAPLUS, CRP, CBC, CMP #### [address] Chloride [Moles/Vol] 99 mmol/L Normal 98-107 [facility] Comment on above: Performed By: #### I FE,URINE, SVETLANA SERUM, UPE RAND, SPE #### [facility] , #### ESR, ADDONUAPLUS, CRP, CBC, CMP #### [address] CO2 [Moles/Vol] 28.5 mmol/L Normal 21.0-31.0 [facility] Comment on above: Performed By: #### I FE,URINE, SVETLANA SERUM, UPE RAND, SPE #### [facility] , #### ESR, ADDONUAPLUS, CRP, CBC, CMP #### [address] Creatinine [Mass/Vol] 0.73 mg/dL Normal 0.70-1.30 [facility] Comment on above: Performed By: #### I FE,URINE, SVETLANA SERUM, UPE RAND, SPE #### [facility] , #### ESR, ADDONUAPLUS, CRP, CBC, CMP #### [facility] GFR/1.73 sq M.predicted MDRD (S/P/Bld) [Vol rate/Area] mL/min/{1.73_m2} Normal [facility] Comment on above: Performed By: #### I FE,URINE, SVETLANA SERUM, UPE RAND, SPE #### [facility] , #### ESR, ADDONUAPLUS, CRP, CBC, CMP #### [address] Globulin (S) [Mass/Vol] 4.4 g/dL High 2.2-3.9 [facility] Comment on above: Performed By: #### I FE,URINE, SVETLANA SERUM, UPE RAND, SPE #### [facility] , #### ESR, ADDONUAPLUS, CRP, CBC, CMP #### [address] Glucose [Mass/Vol] 105 mg/dL High 70-100 [facility] Comment on above: Result Comment: [facility] Glucose Reference Range is dependent on time and content of last meal. Glucose of more than 200 mg/dL in a nonstressed, ambulatory subject supports the diagnosis of Diabetes Mellitus. ADA recommended reference range Performed By: #### I FE,URINE, SVETLANA SERUM, UPE RAND, SPE #### [facility] , #### ESR, ADDONUAPLUS, CRP, CBC, CMP #### [address] Potassium [Moles/Vol] 4.3 mmol/L Normal 3.5-5.1 [facility] Comment on above: Performed By: #### I FE,URINE, SVETLANA SERUM, UPE RAND, SPE #### [facility] , #### ESR, ADDONUAPLUS, CRP, CBC, CMP #### [address] Protein [Mass/Vol] 8.2 g/dL Normal 6.4-8.9 [facility] Comment on above: Performed By: #### I FE,URINE, SVETLANA SERUM, UPE RAND, SPE #### [facility] , #### ESR, ADDONUAPLUS, CRP, CBC, CMP #### [facility] [address] Sodium [Moles/Vol] 138 mmol/L Normal 136-145 [facility] Comment on above: Performed By: #### I FE,URINE, SVETLANA SERUM, UPE RAND, SPE #### [facility] , #### ESR, ADDONUAPLUS, CRP, CBC, CMP #### [facility] [address] [place] [address] Urea nitrogen [Mass/Vol] 15 mg/dL Normal 7-25 [facility] Comment on above: Performed By: #### I FE,URINE, SVETLANA SERUM, UPE RAND, SPE #### [facility] , #### ESR, ADDONUAPLUS, CRP, CBC, CMP #### [facility] [address] [place] [address] Creatinine [Mass/volume] in Serum or PlasmaOrdered By: Carlos Guzmán on 11-24-2023 Creatinine [Mass/Vol] 0.73 mg/dL 0.70-1.30 [facility] Dipstick and Microscopicon 0 11-24-2023 Appearance (U) Clear Normal Clear [facility] Comment on above: Order Comment: Name Collection Type:: Clean-Voided Midstream Performed By: #### I FE,URINE, SVETLANA SERUM, UPE RAND, SPE #### [facility] , #### ESR, ADDONUAPLUS, CRP, CBC, CMP #### [facility] [address] [place] [address] [place] Bacteria,Urine None Seen Normal None Seen [facility] Comment on above: Order Comment: Name Collection Type:: Clean-Voided Midstream Performed By: #### I FE,URINE, SVETLANA SERUM, UPE RAND, SPE #### [facility] , #### ESR, ADDONUAPLUS, CRP, CBC, CMP #### [address] Bilirubin,Urine Negative Normal Negative [facility] Comment on above: Order Comment: Name Collection Type:: Clean-Voided Midstream Performed By: #### I FE,URINE, SVETLANA SERUM, UPE RAND, SPE #### [facility] , #### ESR, ADDONUAPLUS, CRP, CBC, CMP #### [address] Color (U) Yellow Normal Yellow [facility] Comment on above: Order Comment: Name Collection Type:: Clean-Voided Midstream Performed By: #### I FE,URINE, SVETLANA SERUM, UPE RAND, SPE #### [facility] , #### ESR, ADDONUAPLUS, CRP, CBC, CMP #### [address] Glucose Ql (U) >=1000 High Normal [facility] Comment on above: Order Comment: Name Collection Type:: Clean-Voided Midstream Performed By: #### I FE,URINE, SVETLANA SERUM, UPE RAND, SPE #### [facility] , #### ESR, ADDONUAPLUS, CRP, CBC, CMP #### [address] [place] Casts,Urine 0-8 Normal 0-8 [facility] Comment on above: Order Comment: Name Collection Type:: Clean-Voided Midstream Result Comment: PERF ORMED BY: [place] [address] PATHOLOGIST FIRST DYER ADELFO RAMIREZ M.D. Performed By: #### I FE,URINE, SVETLANA SERUM, UPE RAND, SPE #### [facility] , #### ESR, ADDONUAPLUS, CRP, CBC, CMP #### [address] Ketones Ql (U) Trace High Negative [facility] Comment on above: Order Comment: Name Collection Type:: Clean-Voided Midstream Performed By: #### I FE,URINE, SVETLANA SERUM, UPE RAND, SPE #### [facility] , #### ESR, ADDONUAPLUS, CRP, CBC, CMP #### [address] Leukocyte esterase Test strip Ql (U) Negative Normal Negative [facility] Comment on above: Order Comment: Name Collection Type:: Clean-Voided Midstream Performed By: #### I FE,URINE, SVETLANA SERUM, UPE RAND, SPE #### [facility] , #### ESR, ADDONUAPLUS, CRP, CBC, CMP #### [address] Nitrite,Urine Negative Normal Negative [facility] Comment on above: Order Comment: Name Collection Type:: Clean-Voided Midstream Performed By: #### I FE,URINE, SVETLANA SERUM, UPE RAND, SPE #### [facility] , #### ESR, ADDONUAPLUS, CRP, CBC, CMP #### [facility] [address] [place] [address] Occult Blood,Urine Negative Normal Negative [facility] Comment on above: Order Comment: Name Collection Type:: Clean-Voided Midstream Performed By: #### I FE,URINE, SVETLANA SERUM, UPE RAND, SPE #### [facility] , #### ESR, ADDONUAPLUS, CRP, CBC, CMP #### [facility] [address] [place] [address] [place] pH (U) 5.0 [pH] Normal 5.0-9.0 [facility] Comment on above: Order Comment: Name Collection Type:: Clean-Voided Midstream Performed By: #### I FE,URINE, SVETLANA SERUM, UPE RAND, SPE #### [facility] , #### ESR, ADDONUAPLUS, CRP, CBC, CMP #### [address] Protein (U) [Mass/Vol] 30 mg/dL High Negative [facility] Comment on above: Order Comment: Name Collection Type:: Clean-Voided Midstream Performed By: #### I FE,URINE, SVETLANA SERUM, UPE RAND, SPE #### [facility] , #### ESR, ADDONUAPLUS, CRP, CBC, CMP #### [address] RBC,Urine None Seen Normal 0-4 [facility] Comment on above: Order Comment: Name Collection Type:: Clean-Voided Midstream Performed By: #### I FE,URINE, SVETLANA SERUM, UPE RAND, SPE #### [facility] , #### ESR, ADDONUAPLUS, CRP, CBC, CMP #### [address] Specificy [place],Urine 1.039 High 1.001-1.030 [facility] Comment on above: Order Comment: Name Collection Type:: Clean-Voided Midstream Performed By: #### I FE,URINE, SVETLANA SERUM, UPE RAND, SPE #### [facility] , #### ESR, ADDONUAPLUS, CRP, CBC, CMP #### [address] Squamous Epithelial Cell,Urine None Seen Normal 0-2 [facility] Comment on above: Order Comment: Name Collection Type:: Clean-Voided Midstream Performed By: #### I FE,URINE, SVETLANA SERUM, UPE RAND, SPE #### [facility] , #### ESR, ADDONUAPLUS, CRP, CBC, CMP #### [facility] [address] [place] [address] Urobilinogen,Urine Normal Normal Normal [facility] Comment on above: Order Comment: Name Collection Type:: Clean-Voided Midstream Performed By: #### I FE,URINE, SVETLANA SERUM, UPE RAND, SPE #### [facility] , #### ESR, ADDONUAPLUS, CRP, CBC, CMP #### [facility] [address] [place] [address] WBC LM.HPF (Urine sed) [#/Area] 0 /[HPF] Normal 0-4 [facility] Comment on above: Order Comment: Name Collection Type:: Clean-Voided Midstream Performed By: #### I FE,URINE, SVETLANA SERUM, UPE RAND, SPE #### [facility] , #### ESR, ADDONUAPLUS, CRP, CBC, CMP #### [address] Eosinophils Auto (Bld) [#/Vo l]Ordered By: Carlos Guzmán on 11-24-2023 Eosinophils (Bld) [#/Vol] 0.2 10*3/uL 0.0-0.45 [facility] Eosinophils/100 WBC Auto (Bl d)Ordered By: Carlos Guzmán on 11-24-2023 Eosinophils/100 WBC (Bld) 2.0 % . [facility] Erythrocyte Sedimentation Ra bibiana 11-24-2023 ESR (Bld) [Velocity] 72 mm/h High 0-19 [facility] Comment on above: Result Comment: PERF ORMED BY: [place] [address] PATHOLOGIST [employer] D[employer]ER ADELFO RAMIREZ M.D. Performed By: #### I FE,URINE, SVETLANA SERUM, UPE RAND, SPE #### [facility] , #### ESR, ADDONUAPLUS, CRP, CBC, CMP #### [facility] [address] [place] [address] Erythrocyte distribution wid th Auto (RBC) [Ratio]Ordered By: Carlos Guzmán on 11-24-2023 Erythrocyte distribution width (RBC) [Ratio] 15.0 % 12.0-14.8 [facility] Erythrocyte sedimentation ra te by Photometric methodOrdered By: Carlos Guzmán on 11-24-2023 ESR Photometric method (Bld) [Velocity] 72 mm/hr 0-19 [facility] Free K+L LT Chains, Qn, Son 11-24-2023 Free [place] Light Chains, S 127.8 mg/L High 3.3-19.4 [facility] Comment on above: Performed By: #### K APPA, ANCA PROF, C4, CH50, HBSAB, HBCAB, C3, HCV RX PCR, HBSAG, VANESSA ####[facility] , Free [place] Light Chains, S 171.2 mg/L High 5.7-26.3 [facility] Comment on above: Performed By: #### K APPA, ANCA PROF, C4, CH50, HBSAB, HBCAB, C3, HCV RX PCR, HBSAG, VANESSA ####[facility] , [place]/Lambda Ratio, S 0.75 Normal 0.26-1.65 [facility] Comment on above: Result Comment: Perf ormed at: - [facility] [place] [id number] Hog Stomach Preparer: Krunal Nichols PhD, Phone: [phone] Performed By: #### K APPA, ANCA PROF, C4, CH50, HBSAB, HBCAB, C3, HCV RX PCR, HBSAG, VANESSA ####[facility] , Gamma globulin/Protein.total in 24 hour Urine by ElectrophoresisOrdered By: Carlos Guzmán on 11-24-2023 Gamma globulin Elph (24H U) [Mass fraction] 20.1 % . [facility] Glucose [Mass/volume] in Ser um or PlasmaOrdered By: Carlos Guzmán on 11-24-2023 Glucose [Mass/Vol] 105 mg/dL 70-100 [facility] Comment on above: ADA recommended refe rence rangeRandom Glucose Reference Range is dependent on time and content of last meal. Glucose of more than 200 mg/dL in a nonstressed, ambulatory subject supports the diagnosis of Diabetes Mellitus. Hematocrit Auto (Bld) [Volum e fraction]Ordered By: Carlos Guzmán on 11-24-2023 Hematocrit (Bld) [Volume fraction] 38.8 % 38.8-50.0 [facility] Hemoglobin [Mass/volume] in BloodOrdered By: Carlos Grayfranky on 11-24-2023 Hemoglobin (Bld) [Mass/Vol] 13.3 g/dL 13.0-17. 0 [facility] Hep C Ab wRfx to Qnt PCRon 0 11-24-2023 Hepatitis C Virus Antibody Non-Reactive Normal N on Reactive [facility] Comment on above: Performed By: #### K APPA, ANCA PROF, C4, CH50, HBSAB, HBCAB, C3, HCV RX PCR, HBSAG, VANESSA ####[facility] , Interpretation Hepatitis C Normal . [facility] Comment on above: Result [...] B Core Antibody Negative Normal Negative [facility] Comment on above: Result Comment: Perf ormed at: [facility] [id number] Hog Stomach Preparer: Krunal Nichols PhD, Phone: [phone] Performed By: #### K APPA, ANCA PROF, C4, CH50, HBSAB, HBCAB, C3, HCV RX PCR, HBSAG, VANESSA ####[facility] , Hepatitis B Surface Antibody on 11-24-2023 Hepatitis B Surface Antibody Non-Reactive Normal . [facility] Comment on above: Result Comment: Non Reactive: Inconsistent with immunity, less than 10 mIU/mL Reactive: Consistent with immunity, greater than 9.9 mIU/mL Performed By: #### K APPA, ANCA PROF, C4, CH50, HBSAB, HBCAB, C3, HCV RX PCR, HBSAG, VANESSA ####[facility] , Hepatitis B Surface Antigeno n 11-24-2023 HBsAg Screen Negative Normal Negative [facility] Comment on above: Result Comment: PERF ORMED BY: [facility] [address] [place] [address] PATHOLOGIST FIRST DYER ADELFO RAMIREZ M.D. Performed By: #### K APPA, ANCA PROF, C4, CH50, HBSAB, HBCAB, C3, HCV RX PCR, HBSAG, VANESSA ####[facility] , Hepatitis B virus surface Ab [Presence] in SerumOrdered By: Carlos Guzmán on 11-24-2023 HBV surface Ab Ql (S) Non-Reactive . [facility] Comment on above: Non Reactive: Incons istent with immunity, less than 10 mIU/mL Reactive: Consistent with immunity, greater than 9.9 mIU/mL Hepatitis B virus surface Ag [Presence] in Serum or Plasma by ImmunoassayOrdered By: Carlos Guzmán on 11-24-2023 HBV surface Ag IA Ql Negative Negative [facility] Hepatitis C virus IgG Ab [Pr esence] in Serum or Plasma by ImmunoassayOrdered By: Carlos Guzmán on 11-24-2023 HCV IgG IA Ql Non-Reactive Non Reactive [facility] IgA [Mass/volume] in Serum o r PlasmaOrdered By: Carlos Guzmán on 11-24-2023 IgA [Mass/Vol] 399 mg/dL 61-437 [facility] IgG [Mass/volume] in Serum o r PlasmaOrdered By: Carlos Guzmán on 11-24-2023 IgG [Mass/Vol] 2589 mg/dL [phone] [facility] IgM [Mass/volume] in Serum o r PlasmaOrdered By: Carlos Guzmán on 11-24-2023 IgM [Mass/Vol] 217 mg/dL 15-143 [facility] Comment on above: Performed at: [address] [id number] Director: Krunal Nichols PhD, Phone: [phone] Immunofixation for UrineOrde red By: Carlos Guzmán on 11-24-2023 Interpretation Immunofixation (U) [Interp] Comment: . [facility] Comment on above: Presence of monoclon al protein is unclear at this time. Suggestrepeat in 3 to 6 months if clinically indicated.Performed at: - [facility] [place], [place] [id number] Director: Krunla Nichols PhD, Phone: [phone] Immunofixation, (SVETLANA), Urine on 11-24-2023 Immunofixation, (SVETLANA), Urine Comment: Normal . [facility] Comment on above: Result Comment: Pres ence of monoclonal protein is unclear at this time. Suggest repeat in 3 to 6 months if clinically indicated. Performed at: [facility] [address] [place], [place] [id number] Hog Stomach Preparer: Krunal Nichols PhD, Phone: [phone] Performed By: #### I FE,URINE, SVETLANA SERUM, UPE RAND, SPE ####[facility] ,#### ESR, ADDONUAPLUS, CRP, CBC, CMP ####[facility] [place] [address] [place] Immunofixation,Serumon 11-23 Immunofixation, Serum Normal . [facility] Comment on above: Result Comment: No m onoclonality detected. Performed By: #### I FE,URINE, SVETLANA SERUM, UPE RAND, SPE #### [facility] , #### ESR, ADDONUAPLUS, CRP, CBC, CMP #### [facility] [address] [place] [id number] [facility] Immunoglobulin A, Serum 399 mg/dL Normal 61-437 [facility] Comment on above: Performed By: #### I FE,URINE, SVETLANA SERUM, UPE RAND, SPE #### [facility] , #### ESR, ADDONUAPLUS, CRP, CBC, CMP #### [facility] [address] [place] [id number] [place] Immunoglobulin G 2589 mg/dL High 603-1613 [facility] Comment on above: Performed By: #### I FE,URINE, SVETLANA SERUM, UPE RAND, SPE #### [facility] , #### ESR, ADDONUAPLUS, CRP, CBC, CMP #### [facility] [address] Immunoglobulin M, Serum 217 mg/dL High 15-143 [facility] Comment on above: Result Comment: Perf ormed at: - [facility] [place] [address] [place] [address] Hog Stomach Preparer: Krunal Nichols PhD, Phone: [phone] Performed By: #### I FE,URINE, SVETLANA SERUM, UPE RAND, SPE #### [facility] , #### ESR, ADDONUAPLUS, CRP, CBC, CMP #### [facility] [address] Immunoglobulin light chains. kappa.free [Mass/volume] in SerumOrdered By: Carlos Guzmán on 11-24-2023 Immunoglobulin light chains.kappa.free (S) [Mass/Vol] 127.8 mg/L 3.3-19.4 [facility] Immunoglobulin light chains. kappa.free/Immunoglobulin light chains.lambda.free [MassOrdered By: Carlos Guzmán on 11-24-2023 Immunoglobulin light chains.kappa.free/Immunoglo bulin light chains.lambda.free (S) [Mass ratio] 0.75 0.26-1.65 [facility] Comment on above: Performed at: - [facility] [place] [address]Lab Director: Krunal Nichols PhD, Phone: [phone] Immunoglobulin light chains. lambda.free [Mass/volume] in Serum or PlasmaOrdered By: Carlos Guzmán on 11-24-2023 Immunoglobulin light chains.lambda.free [Mass/Vol] 171.2 mg/L 5.7-26.3 [facility] Ketones Auto test strip (U) [Mass/Vol]Ordered By: Carlos Guzmán on 11-24-2023 Ketones (U) [Mass/Vol] Trace Negative [facility] - UrinalysisOrder ed By: Carlos Guzmán on 11-24-2023 Hyaline casts LM Ql (Urine sed) 0-8 [LPF] 0-8 [facility] Leukocytes [#/volume] correc yuniel for nucleated erythrocytes in Blood by Automated counOrdered By: Carlos Guzmán on 11-24-2023 WBC corrected for nucl RBC Auto (Bld) [#/Vol] 8.9 10*3/uL 4.1-10.5 [facility] Lymphocytes Auto (Bld) [#/Vo l]Ordered By: Carlos Guzmán on 11-24-2023 Lymphocytes (Bld) [#/Vol] 2.5 10*3/uL 1.00-4.8 [facility] Lymphocytes/100 WBC Auto (Bl d)Ordered By: Carlos Guzmán on 11-24-2023 Lymphocytes/100 WBC (Bld) 28.6 % . [facility] MCH Auto (RBC) [Entitic mass ]Ordered By: Carlos Guzmán on 11-24-2023 MCH (RBC) [Entitic mass] 30.0 pg 27.5-35.2 [facility] MCHC Auto (RBC) [Mass/Vol]Or dered By: Carlos Guzmán on 11-24-2023 MCHC (RBC) [Mass/Vol] 34.4 g/dL 32.5-35.6 [facility] MCV Auto (RBC) [Entitic vol] Ordered By: Carlos Guzmán on 11-24-2023 MCV (RBC) [Entitic vol] 87.1 fL 83.5-101 [facility] Monocytes Auto (Bld) [#/Vol] Ordered By: Carlos Guzmán on 11-24-2023 Monocytes (Bld) [#/Vol] 0.7 10*3/uL 0.0-0.8 [facility] Monocytes/100 WBC Auto (Bld) Ordered By: Carlos Guzmán on 11-24-2023 Monocytes/100 WBC (Bld) 7.8 % . [facility] Myeloperoxidase Ab [Units/vo lume] in Serum by ImmunoassayOrdered By: Carlos Guzmán on 11-24-2023 Myeloperoxidase Ab IA Qn (S) 1.8 units 0.0-0.9 [facility] Neutrophil cytoplasmic Ab.pe rinuclear.atypical [Titer] in Serum by ImmunofluorescenceOrdered By: Carlos Guzmán on 11-24-2023 Neutrophil cytoplasmic Ab.perinuclear.atypical IF (S) [Titer] <1:20 titer Neg:<1:20 [facility] Comment on above: The atypical pANCA p attern has been observed in asignificant percentage of patients with ulcerative colitis,primary sclerosing cholangitis and autoimmune hepatitis.Performed at: [facility] Labviseto[address] [id number] Director: Blanca Olmedo MD, Phone: [phone] at: [facility] LabCreationFlow [address] [id number] Director: Krunal Nichols PhD, Phone: [phone] Neutrophils Auto (Bld) [#/Vo l]Ordered By: Carlos Guzmán on 11-24-2023 Neutrophils (Bld) [#/Vol] 5.4 10*3/uL 1.8-7.7 [facility] Neutrophils/100 WBC Auto (Bl d)Ordered By: Carlos Guzmán on 11-24-2023 Neutrophils/100 WBC (Bld) 60.5 % . [facility] Nitrite Test strip Ql (U)Ord ered By: Carlos Guzmán on 11-24-2023 Nitrite Ql (U) Negative Negative [facility] No Panel InformationOrdered By: Carlos Guzmán on 11-24-2023 Anti-Nuclear Antibody Comment 2 See comment . [facility] Comment on above: Pattern Potential Di sease Association Homogeneous Systemic Lupus Erythematosus, Drug Induced Systemic Lupus Erythematosus, Chronic Autoimmune hepatitis, Juvenile Idiopathic Arthritis Speckled Sjogren Syndrome, Systemic Lupus Erythematosus, Subacute Cutaneous Lupus, Lupus, Congenital Heart Block, Mixed Connective Tissue Disease, Scleroderma-diffuse, Scleroderma-Autoimmune Myositis Overlap Syndrome, Systemic Lupus Ycuiydzzristn-Icbjmutymdj-Retrhzgpof Myositis Overlap Syndrome, Systemic Autoimmune Rheumatic Disease, [...] Antiphospholipid Syndrome Performed at: [facility] [address] [id number] Director: Krunal Nichols PhD, Phone: [phone] Estimated GFR (CKD-EPI) > 60.0 mL/Min [facility] Hepatitis B Core Total Antibody Negative Negative [facility] Comment on above: Performed at: [facility] [address] [id number] Director: Krunal Nichols PhD, Phone: [phone] Hepatitis C Interpretation See comment . [facility] Comment on above: Not infected with HC V unless early or acute infection issuspected (which may be delayed in an immunocompromisedindividual), or other evidence exists to indicate HCVinfection. Perinuclear ANCA (p-ANCA) Antibody <1:20 titer Neg:<1:20 [facility] Comment on above: The presence of posi tive fluorescence exhibiting P-ANCA orC-ANCA patterns alone is not specific for the diagnosis ofWegener's Granulomatosis (WG) or microscopic polyangiitis.Decisions about treatment should not be based solely onANCA IFA results. The International ANCA Group Consensusrecommends follow up testing of positive sera with both UT-3 and MPO-ANCA enzyme immunoassays. As many as 5% serumsamples are positive only by EIA. Ref. AM J Clin [id number];111:507-513. Pharmacy Creatinine Clearance (Chem N/A [facility] Protein Electrophoresis M-Michael Not observed g/dL Not Observed [facility] Protein Electrophoresis Note See comment . [facility] Comment on above: Protein electrophore sis scan will follow via computer,mail, or wire spring relay adjuster delivery.Performed at: [facility] [place], [place] [id number] Director: Krunal Nichols PhD, Phone: [phone] Serum Immunofixation See comment . [facility] Comment on above: No monoclonality det ected. Total Complement (CH50) 51 U/mL >41 [facility] Comment on above: Age Male Female [...] to determine out of range values.Performed at: [employer] [place], [place] [id number] Director: Krunal Nichols PhD, Phone: [phone] Urine Random Prot Electrophor Note See comment . [facility] Comment on above: Protein electrophore sis scan will follow via computer,mail, or wire spring relay adjuster delivery. Nucleated erythrocytes [Pres ence] in Blood by Automated countOrdered By: Carlos Guzmán on 11-24-2023 Nucleated RBC Auto Ql (Bld) 0.0 /100{WBC} 0-0.5 [facility] Platelet mean volume Auto (B ld) [Entitic vol]Ordered By: Carlos Guzmán on 11-24-2023 Platelet mean volume (Bld) [Entitic vol] 7.9 fL 6.6-10.1 [facility] Platelets Auto (Bld) [#/Vol] Ordered By: Carlos Guzmán on 11-24-2023 Platelets (Bld) [#/Vol] 369 10*3/uL 150-450 [facility] Potassium [Moles/volume] in Serum or PlasmaOrdered By: Carlos Guzmán on 11-24-2023 Potassium [Moles/Vol] 4.3 mmol/L 3.5-5.1 [facility] Protein Auto test strip (U) [Mass/Vol]Ordered By: Carlos Guzmán on 11-24-2023 Protein (U) [Mass/Vol] 30 mg/dL Negative [facility] Protein Electro, Random Urin sheree 11-24-2023 Albumin, Urine 50.7 % Normal . [facility] Comment on above: Performed By: #### I FE,URINE, SVETLANA SERUM, UPE RAND, SPE ####[facility] ,#### ESR, ADDONUAPLUS, CRP, CBC, CMP ####[facility] [id number] [place] [id number] [facility] Gnhpl-8-Mluhidbx, Urine 1.3 % Normal . [facility] Comment on above: Performed By: #### I FE,URINE, SVETLANA SERUM, UPE RAND, SPE ####[facility] ,#### ESR, ADDONUAPLUS, CRP, CBC, CMP ####[facility] [address] [place] [address] [facility] Fpofv-9-Twruofel, Urine 9.1 % Normal . [facility] Comment on above: Performed By: #### I FE,URINE, SVETLANA SERUM, UPE RAND, SPE ####[facility] ,#### ESR, ADDONUAPLUS, CRP, CBC, CMP ####[address] Beta Globulin, Urine 18.7 % Normal . [facility] Comment on above: Performed By: #### I FE,URINE, SVETLANA SERUM, UPE RAND, SPE ####[facility] ,#### ESR, ADDONUAPLUS, CRP, CBC, CMP ####[address] Gamma Globulin, Urine 20.1 % Normal . [facility] Comment on above: Performed By: #### I FE,URINE, SVETLANA SERUM, UPE RAND, SPE ####[facility] ,#### ESR, ADDONUAPLUS, CRP, CBC, CMP ####[address] M-Michael % Not Observed Normal Not Observed [facility] Comment on above: Performed By: #### I FE,URINE, SVETLANA SERUM, UPE RAND, SPE ####[facility] ,#### ESR, ADDONUAPLUS, CRP, CBC, CMP ####[address] Please Note: Normal . [facility] Comment on above: Result Comment: Prot ein electrophoresis scan will follow via computer, mail, or wire spring relay adjuster delivery. PERFORMED BY: [facility] [address] [place] [address] PATHOLOGIST [employer] DYER ADELFO RAMIREZ M.D. Performed By: #### I FE,URINE, SVETLANA SERUM, UPE RAND, SPE ####[facility] ,#### ESR, ADDONUAPLUS, CRP, CBC, CMP ####[address] Protein (U) [Mass/Vol] 40.0 mg/dL Normal Not Estab. Th e [facility] Comment on above: Performed By: #### I FE,URINE, SVETLANA SERUM, UPE RAND, SPE ####[facility] ,#### ESR, ADDONUAPLUS, CRP, CBC, CMP ####[facility] [address] [place] [address] [place] Protein Electrophoresis, Ser umon 11-24-2023 Albumin [Mass/Vol] 3.5 g/dL Normal 2.9-4.4 [facility] Comment on above: Performed By: #### I FE,URINE, SVETLANA SERUM, UPE RAND, SPE #### [facility] , #### ESR, ADDONUAPLUS, CRP, CBC, CMP #### [facility] [address] [place] [address] Albumin/Globulin [Mass ratio] 0.8 {ratio} Normal 0.7-1.7 [facility] Comment on above: Performed By: #### I FE,URINE, SVETLANA SERUM, UPE RAND, SPE #### [facility] , #### ESR, ADDONUAPLUS, CRP, CBC, CMP #### [facility] [address] Fgyil-2-Msdlwcvc 0.2 g/dL Normal 0.0-0.4 [facility] Comment on above: Performed By: #### I FE,URINE, SVETLANA SERUM, UPE RAND, SPE #### [facility] , #### ESR, ADDONUAPLUS, CRP, CBC, CMP #### [facility] [address] [place] [address] [place] Xpviy-1-Kyhaqhlc 1.0 g/dL Normal 0.4-1.0 [facility] Comment on above: Performed By: #### I FE,URINE, SVETLANA SERUM, UPE RAND, SPE #### [facility] , #### ESR, ADDONUAPLUS, CRP, CBC, CMP #### [address] Beta Globulin 1.0 g/dL Normal 0.7-1.3 [facility] Comment on above: Performed By: #### I FE,URINE, SVETLANA SERUM, UPE RAND, SPE #### [facility] , #### ESR, ADDONUAPLUS, CRP, CBC, CMP #### [address] Gamma Globulin 2.2 g/dL High 0.4-1.8 [facility] Comment on above: Performed By: #### I FE,URINE, SVETLANA SERUM, UPE RAND, SPE #### [facility] , #### ESR, ADDONUAPLUS, CRP, CBC, CMP #### [address] M-Michael Not Observed Normal Not Observed [facility] Comment on above: Performed By: #### I FE,URINE, SVETLANA SERUM, UPE RAND, SPE #### [facility] , #### ESR, ADDONUAPLUS, CRP, CBC, CMP #### [address] Protein [Mass/Vol] 7.9 g/dL Normal 6.0-8.5 [facility] Comment on above: Performed By: #### I FE,URINE, SVETLANA SERUM, UPE RAND, SPE #### [facility] , #### ESR, ADDONUAPLUS, CRP, CBC, CMP #### [address] SPE-Note Normal . [facility] Comment on above: Result Comment: Prot ein electrophoresis scan will follow via computer, mail, or wire spring relay adjuster delivery. Performed at: [facility] [id number] Hog Stomach Preparer: Krunal Nichols PhD, Phone: [phone] PERFORMED BY: [place] [address] PATHOLOGIST [employer] ADELFO RAMIREZ M.D. Performed By: #### I FE,URINE, SVETLANA SERUM, UPE RAND, SPE #### [facility] , #### ESR, ADDONUAPLUS, CRP, CBC, CMP #### [address] Protein [Mass/volume] in Ser um or PlasmaOrdered By: Carlos Guzmán on 11-24-2023 Protein [Mass/Vol] 8.2 g/dL 6.4-8.9 [facility] Protein [Mass/Vol] 7.9 g/dL 6.0-8.5 [facility] Protein [Mass/volume] in Uri neOrdered By: Carlos Guzmán on 11-24-2023 Protein (U) [Mass/Vol] 40.0 mg/dL Not Estab. Fi [facility] Protein.monoclonal/Protein.t otal in 24 hour Urine by ElectrophoresisOrdered By: Carlos Guzmán on 11-24-2023 Protein.monoclonal Elph (24H U) [Mass fraction] Not observed % Not Observed [facility] Proteinase 3 Ab [Units/volum e] in Serum by ImmunoassayOrdered By: Carlos Guzmán on 11-24-2023 Proteinase 3 Ab IA Qn (S) <0.2 units 0.0-0.9 [facility] RBC Auto (Bld) [#/Vol]Ordere d By: Carlos Guzmán on 11-24-2023 RBC (Bld) [#/Vol] 4.45 10*6/uL 3.90-5.60 [facility] Serum classic neutrophil cyt oplasmic antibody titer by immunofluorescenceOrdered By: Carlos Guzmán on 11-24-2023 Neutrophil cytoplasmic Ab.classic IF (S) [Titer] <1:20 titer Neg:<1:20 [facility] Serum globulin measurement b y calculation (mass/volume)Ordered By: Carlos Guzmán on 11-24-2023 Globulin (S) [Mass/Vol] 4.4 g/dL 2.2-3.9 [facility] Serum homogeneous pattern an tinuclear antibody (VANESSA) titerOrdered By: Carlos Guzmán on 11-24-2023 Homogenous nuclear Ab pattern (S) [Titer] 1:640 . [facility] Comment on above: ICAP nomenclature: A C-1 Serum nuclear antibody titer Ordered By: Carlos Guzmán on 11-24-2023 Nuclear Ab (S) [Titer] Positive . [facility] Comment on above: Negative <1:80 Borde rline 1:80 Positive >1:80 Serum or plasma albumin/glob ulin mass ratioOrdered By: Carlos Guzmán on 11-24-2023 Albumin/Globulin [Mass ratio] 0.9 {ratio} [facility] Albumin/Globulin [Mass ratio] 0.8 {ratio} 0.7-1.7 [facility] Serum or plasma alpha 1 glob ulin measurement by electrophoresis (mass/volume)Ordered By: Carlos Guzmán on 11-24-2023 Alpha 1 globulin Elph [Mass/Vol] 0.2 g/dL 0.0-0.4 [facility] Serum or plasma alpha 2 glob ulin measurement by electrophoresis (mass/volume)Ordered By: Carlos Guzmán on 11-24-2023 Alpha 2 globulin Elph [Mass/Vol] 1.0 g/dL 0.4-1.0 [facility] Serum or plasma anion gap de terminationOrdered By: Carlos Guzmán on 11-24-2023 Anion gap [Moles/Vol] 14.8 mmol/L 6.0-15.0 [facility] Serum or plasma beta globuli n measurement by electrophoresis (mass/volume)Ordered By: Carlos Guzmán on 11-24-2023 Beta globulin Elph [Mass/Vol] 1.0 g/dL 0.7-1.3 [facility] Serum or plasma complement C 3 measurement (mass/volume)Ordered By: Carlos Guzmán on 11-24-2023 Complement C3 [Mass/Vol] 135 mg/dL 82-167 [facility] Comment on above: Performed at: [address] [id number] Director: Krunal Nichols PhD, Phone: [phone] Serum or plasma complement C 4 measurement (mass/volume)Ordered By: Carlos Guzmán on 11-24-2023 Complement C4 [Mass/Vol] 10 mg/dL 12-38 [facility] Serum or plasma gamma globul in measurement by electrophoresis (mass/volume)Ordered By: Carlos Guzmán on 11-24-2023 Gamma globulin Elph [Mass/Vol] 2.2 g/dL 0.4-1.8 [facility] Sodium [Moles/volume] in Ser um or PlasmaOrdered By: Carlos Guzmán on 11-24-2023 Sodium [Moles/Vol] 138 mmol/L 136-145 [facility] Specific gravity Auto test s trip (U) [Rel density]Ordered By: Carlos Guzmán on 11-24-2023 Specific gravity (U) [Rel density] 1.039 1.001-1.030 [facility] Squamous epithelial cells de tection in urine sediment by light microscopyOrdered By: Carlos Guzmán on 11-24-2023 Epithelial cells.squamous LM Ql (Urine sed) None seen [HPF] 0-2 [facility] Urea nitrogen [Mass/volume] in Serum or PlasmaOrdered By: Carlos Guzmán on 11-24-2023 Urea nitrogen [Mass/Vol] 15 mg/dL 7-25 [facility] Urine alpha 1 globulin/total protein by electrophoresisOrdered By: Carlos Guzmán on 11-24-2023 Alpha 1 globulin Elph (U) [Mass fraction] 1.3 % . [facility] Urine alpha 2 globulin/total protein ratio by electrophoresisOrdered By: Carlos Guzmán on 11-24-2023 Alpha 2 globulin Elph (U) [Mass fraction] 9.1 % . [facility] Urine bacteria detection by automated methodOrdered By: Carlos Guzmán on 11-24-2023 Bacteria Auto Ql (U) None seen None Seen [facility] Urine beta globulin measurem ent by electrophoresis (mass/volume)Ordered By: Carlos Guzmán on 11-24-2023 Beta globulin Elph (U) [Mass/Vol] 18.7 % . [facility] Urine clarity by refractomet ry automatedOrdered By: Carlos Guzmán on 11-24-2023 Clarity Refractometry automated (U) Clear Clear [facility] Urine glucose measurement by automated test strip (mass/volume)Ordered By: Carlos Guzmán on 11-24-2023 Glucose Auto test strip (U) [Mass/Vol] >=1000 mg/dL Normal [facility] Urine hemoglobin detection b y automated test stripOrdered By: Carlos Guzmán on 11-24-2023 Hemoglobin Auto test strip Ql (U) Negative Negative [facility] Urine leukocyte esterase det ection by automated test stripOrdered By: Carlos Guzmán on 11-24-2023 Leukocyte esterase Auto test strip Ql (U) Negative Negative [facility] Urobilinogen Auto test strip (U) [Mass/Vol]Ordered By: Carlos Guzmán on 11-24-2023 Urobilinogen (U) [Mass/Vol] Normal mg/dL Normal [facility] WBC Auto (Bld) [#/Vol]Ordere d By: Carlos Guzmán on 11-24-2023 WBC (Bld) [#/Vol] 8.9 10*3/uL 4.1-10.5 [facility] pH Auto test strip (U)Ordere d By: Carlos Guzmán on 11-24-2023 pH (U) 5.0 [pH] 5.0-9.0 [facility] Basophils Auto (Bld) [#/Vol] on 10-28-2023 Basophils (Bld) [#/Vol] 0.1 10 3/uL 0.0-0.1 [facility] Basophils/100 WBC Auto (Bld) on 10-28-2023 Basophils/100 WBC (Bld) 0.7 % 0.2-2.0 [facility] Centriole Ab [Titer] in Seru m by Immunofluorescenceon 10-28-2023 Centriole Ab IF (S) [Titer] TNP . [facility] Centromere Ab [Titer] in Ser um by Immunofluorescenceon 10-28-2023 Centromere Ab IF (S) [Titer] TN . [facility] Eosinophils/100 WBC Auto (Bl d)on 10-28-2023 Eosinophils/100 WBC (Bld) 2.2 % 0.9-7.0 [facility] Erythrocyte distribution wid th Auto (RBC) [Ratio]on 10-28-2023 Erythrocyte distribution width (RBC) [Ratio] 14.6 % 11.0-15.0 [facility] Estimated glomerular filtrat ion rate (GFR) non- Americanon 10-28-2023 GFR/1.73 sq M.predicted among non-blacks MDRD (S/P/Bld) [Vol rate/Area] mL/min/{1.73_m2} >=60 [facility] Globulin Calc (S) [Mass/Vol] on 10-28-2023 Globulin (S) [Mass/Vol] 5.8 g/dL [facility] Hematocrit Auto (Bld) [Volum e fraction]on 10-28-2023 Hematocrit (Bld) [Volume fraction] 40.0 % 42.0-54.0 [facility] Hemoglobin [Mass/volume] in Bloodon 10-28-2023 Hemoglobin (Bld) [Mass/Vol] 13.1 g/dL 14.0-18. 0 [facility] Laboratory - Chemistry and C hemistry - challengeon 10-28-2023 Albumin [Mass/Vol] 2.8 g/dL 3.4-5.0 [facility] ALP [Catalytic activity/Vol] 94 U/L 46-116 [facility] ALT [Catalytic activity/Vol] 17 U/L 16-63 [facility] AST [Catalytic activity/Vol] 23 U/L 15-37 [facility] Bilirubin [Mass/Vol] 0.6 mg/dL 0.2-1.0 [facility] Calcium [Mass/Vol] 8.8 mg/dL 8.5-10.1 [facility] Chloride [Moles/Vol] 100 mmol/L 98-107 [facility] CO2 [Moles/Vol] 28.0 mmol/L 21.0-32.0 [facility] Creatinine [Mass/Vol] 0.80 mg/dL 0.70-1.30 [facility] GFR/1.73 sq M.predicted MDRD (S/P/Bld) [Vol rate/Area] mL/min/{1.73_m2} >=60 [facility] Glucose [Mass/Vol] 135 mg/dL 74-106 [facility] Potassium [Moles/Vol] 4.5 mmol/L 3.5-5.1 [facility] Protein [Mass/Vol] 8.6 g/dL 6.4-8.2 [facility] Sodium [Moles/Vol] 138 mmol/L 136-145 [facility] Urate [Mass/Vol] 4.2 mg/dL 3.5-7.2 [facility] Urea nitrogen [Mass/Vol] 14.0 mg/dL 7.0-18.0 [facility] Urea nitrogen/Creatinine [Mass ratio] 17.5 mg/mg [facility] Laboratory - Hematology and Cell countson 10-28-2023 ESR (Bld) [Velocity] 62 mm/h <=20 [facility] Immature granulocytes/100 WBC (Bld) 0.1 % 0.0-0.5 [facility] Leukocytes [#/volume] correc yuniel for nucleated erythrocytes in Blood by Automated counon 10-28-2023 WBC corrected for nucl RBC Auto (Bld) [#/Vol] 7.2 10 3/uL 4.0-11.0 [facility] Lymphocytes Auto (Bld) [#/Vo l]on 10-28-2023 Lymphocytes (Bld) [#/Vol] 1.9 10 3/uL 1.2-3.8 [facility] Lymphocytes/100 WBC Auto (Bl d)on 10-28-2023 Lymphocytes/100 WBC (Bld) 26.6 % 20.5-60.0 [facility] MCH Auto (RBC) [Entitic mass ]on 10-28-2023 MCH (RBC) [Entitic mass] 30.2 pg 25.9-34.0 [facility] MCHC Auto (RBC) [Mass/Vol]on 10-28-2023 MCHC (RBC) [Mass/Vol] 32.8 g/dL 29.9-35.2 [facility] MCV Auto (RBC) [Entitic vol] on 10-28-2023 MCV (RBC) [Entitic vol] 92.2 fL 80.0-94.0 [facility] Midbody Ab [Titer] in Serum by Immunofluorescenceon 10-28-2023 Midbody Ab IF (S) [Titer] TNP . [facility] Mitotic spindle apparatus Ab [Titer] in Serum or Plasma by Immunofluorescenceon 10-28-2023 Mitotic spindle apparatus Ab IF [Titer] TNP . [facility] Monocytes Auto (Bld) [#/Vol] on 10-28-2023 Monocytes (Bld) [#/Vol] 0.8 10 3/uL 0.3-0.8 [facility] Monocytes/100 WBC Auto (Bld) on 10-28-2023 Monocytes/100 WBC (Bld) 10.4 % 1.7-12.0 [facility] Neutrophils Auto (Bld) [#/Vo l]on 10-28-2023 Neutrophils (Bld) [#/Vol] 4.3 10 3/uL 1.4-6.5 [facility] Neutrophils/100 WBC Auto (Bl d)on 10-28-2023 Neutrophils/100 WBC (Bld) 60.0 % 43.0-75.0 [facility] No Panel Informationon 10-28 Anti-Nuclear Antibody Comment 2 Comment . [facility] Comment on above: Pattern Potential Di sease Association Homogeneous Systemic Lupus Erythematosus, Drug Induced Systemic Lupus Erythematosus, Chronic Autoimmune hepatitis, Juvenile Idiopathic Arthritis Speckled Sjogren Syndrome, Systemic Lupus Erythematosus, Subacute Cutaneous Lupus, Lupus, Congenital Heart Block, Mixed Connective Tissue Disease, Scleroderma-diffuse, Scleroderma-Autoimmune Myositis Overlap Syndrome, Systemic Lupus Gasdhblwwjqgd-Eblpvysmaye-Cwajnpinch Myositis Overlap Syndrome, Systemic Autoimmune Rheumatic Disease, [...] Cytopenias, Linear Scleroderma, Antiphospholipid Syndrome Performed at: [facility] [id number] Director: Krunal Nichols PhD, Phone: [phone] C-Reactive Protein, Quantitative <0.50 mg/dL <=0.50 [facility] Eosinophils # (Auto) 0.2 10 3/uL 0.0-0.7 [facility] Immature Granulocyte # (Auto) 0.01 10 3/uL 0.00-0.03 [facility] Nuclear dots nuclear Ab prashant bhupendra [Titer] in Serum by Immunofluorescenceon 10-28-2023 Nuclear dots nuclear Ab pattern IF (S) [Titer] TNP . [facility] Nuclear membrane pores nucle ar Ab pattern [Titer] in Serum by Immunofluorescenceon 10-28-2023 Nuclear membrane pores nuclear Ab pattern IF (S) [Titer] TNP . [facility] PCNA extractable nuclear Ab [Titer] in Serum by Immunofluorescenceon 10-28-2023 PCNA extractable nuclear Ab IF (S) [Titer] TNP . [facility] Platelet mean volume Auto (B ld) [Entitic vol]on 10-28-2023 Platelet mean volume (Bld) [Entitic vol] 8.9 fL 9.5-13.5 [facility] Platelets Auto (Bld) [#/Vol] on 10-28-2023 Platelets (Bld) [#/Vol] 296 10 3/uL 150-450 [facility] RBC Auto (Bld) [#/Vol]on RBC (Bld) [#/Vol] 4.34 10 6/uL 4.70-6.10 [facility] Serum homogeneous pattern an tinuclear antibody (VANESSA) titeron 10-28-2023 Homogenous nuclear Ab pattern (S) [Titer] 1:640 . [facility] Comment on above: ICAP nomenclature: A C-1 Serum nuclear antibody titer on 10-28-2023 Nuclear Ab (S) [Titer] Positive . [facility] Comment on above: Negative <1:80 Borde rline 1:80 Positive >1:80 Serum nucleolar pattern anti nuclear antibody (VANESSA) titeron 10-28-2023 Nucleolar nuclear Ab pattern (S) [Titer] TNP . [facility] Serum or plasma albumin/glob ulin mass ratioon 10-28-2023 Albumin/Globulin [Mass ratio] 0.5 {ratio} [facility] Serum or plasma anion gap de terminationon 10-28-2023 Anion gap [Moles/Vol] 14.5 mmol/L [facility] Serum or plasma cyclic adeno sine monophosphate measurement (moles/volume)on 10-28-2023 Adenosine monophosphate.cyclic [Moles/Vol] >250 units 0-19 [facility] Comment on above: Negative <20 Weak po sitive 20 - 39 Moderate positive 40 - 59 Strong positive >59Performed at: - [facility] [id number] Director: Krunal Nichols PhD, Phone: [phone] Serum or plasma rheumatoid f actor measurement (units/volume)on 10-28-2023 Rheumatoid factor Qn 183.9 [IU]/mL <14.0 [facility] Comment on above: Results confirmed on dilution.Performed at: [facility] - [facility] [id number] Director: Krunal Nichols PhD, Phone: [phone] Serum speckled pattern antin uclear antibody (VANESSA) titeron 10-28-2023 Speckled nuclear Ab pattern (S) [Titer] TNP . [facility] Glucose Glucometer (BldC) [M ass/Vol]Ordered By: Erickson Nascimento on 07-04-2023 Glucose [Mass/Vol] 134 mg/dL [facility] Comment on above: Random Glucose Refer ence Range is dependent on time and content of last meal. Glucose of more than 200 mg/dL in a nonstressed, ambulatory subject supports the diagnosis of Diabetes Mellitus. Glucose Poct Glucometerson 1 09-03-2022 Glucose [Mass/Vol] 134 mg/dL Normal [facility] Comment on above: Result Comment: Cameron om Glucose Reference Range is dependent on time and content of last meal. Glucose of more than 200 mg/dL in a nonstressed, ambulatory subject supports the diagnosis of Diabetes Mellitus. PERFORMED BY: [facility] [address] [place] [address] PATHOLOGIST [employer] ADELFO RAMIREZ M.D. Performed By: #### G LOYD ####Point of Care testing, Eduard 07-04-2023 L - -------- Specimen: [id number] Received: 07/04/23 Status: RAQUEL De Oliveira Num: [id number] Spec Type: Surgical Subm Dr: Erickson Nascimento DO Tissues: A Soft Tissue/Surgical Margin-Other than Tumor,Mass,Lip or Natasha (LT ELBOW MASS) Procedures: VINCENT, Gross/Micro L4 -------- Age/ Patient Sex Location Account Attending Physician -------- Mariano Gutierrez 73/M [place] [id number] Erickson Nascimento DO -------- SPEC NUM: [id number] RECD: 07/04/23 STATUS: RAQUEL DE OLIVEIRA NUM: [id number] DENISA: 07/04/23 [facility] DR: Erickson Nascimento DO ENTERED: 07/04/23 [facility] DR: DARY TYPE: Surgical DEPT: S [...] tissue with a rubbery, dubois-pink cut surface. [employer] sections are submitted in one cassette labeled A1. -------- Specimen: [id number] Received: 07/04/23 Status: RAQUEL De Oliveira Num: [id number] Spec Type: Surgical Subm Dr: Erickson Nascimento, Tissues: A Soft Tissue/Surgical Margin-Other than Tumor,Mass,Lip or Natasha (LT ELBOW MASS) Procedures: Kristin KAUR/Zo L4 -------- Patient: Mariano Gutierrez [id number] (Continued) -------- Specimen: [id number] Received: 07/04/23 (Continued) Signed (signature on file) Brandy Keane MD 07/08/23 1545 -------- Specimen: [id number] Received: 07/04/23 Status: RAQUEL De Oliveira Num: [id number] Spec Type: Surgical Subm Dr: Erickson Nascimento DO Tissues: A Soft Tissue/Surgical Margin-Other than Tumor,Mass,Lip or Natasha (LT ELBOW MASS) Procedures: Kristin KAUR/Zo L4 -------- Patient: Marinao Gutierrez [id number] (Continued) -------- Specimen: [id number] Received: 07/04/23 (Continued) Microscopic Description One H E slide reviewed. The microscopic examination confirms the diagnosis. CPT Codes 93604 -------- -------- Specimen: [id number] Received: 07/04/23 Status: RAQUEL De Oliveira Num: [id number] Spec Type: Surgical Subm Dr: Erickson Nascimento DO Tissues: A Soft Tissue/Surgical Margin-Other than Tumor,Mass,Lip or Natasha (LT ELBOW MASS) Procedures: Kristin KAUR/Zo L4 -------- Patient: Mariano Gutierrez [id number] (Continued) -------- Signed (signature on file) Brandy Keane MD 07/08/23 7300 Normal [facility] XR elbow LT 2Von 02-26-2023 XR elbow LT 2V [address] [address] XRay Report Signed Patient: Mariano Gutierrez MR#: [id number] : 1950 Acct:[id number] Age/Sex: 72 / M ADM Date: 02/26/23 [place] [facility] [place]: Type: [facility] Attending Dr: Erickson Nascimento DO Copies to: [...] Blount Jr., D.OJeferson02/26/2023 2:56 PM Dictation Location: [place] [address] Transcribed By: [facility] 02/26/23 1456 Dictated By: Abdirahman Blount Jr, DO 02/26/23 1455 Signed By: 02/26/23 1456 Normal [facility] GLYCOHEMOGLOBIN A1Con 2022 ADA RECOMMENDATION SEE BELOW Normal [facility] Comment on above: Result Comment: ADA RECOMMENDED LIMIT 4.0 - 6.0 ADA THERAPEUTIC TARGET < 7.0 ACTION SUGGESTED > 7.0 Performed By: #### D ATA1C #### [facility] [address] [place] [address] Dr. Ginger Keane Glucose [Mass/Vol] 123 mg/dL Normal [facility] Comment on above: Performed By: #### D ATA1C #### [facility] [address] [address] [address] Ginger Keane HbA1c (Bld) [Mass fraction] 5.9 % Normal 4.5-6.2 [facility] Comment on above: Performed By: #### D ATA1C #### [facility] [address] [address] [address] Ginger Keane GLYCOHEMOGLOBIN A1Con 2021 ADA RECOMMENDATION SEE BELOW Normal [facility] Comment on above: Result Comment: ADA RECOMMENDED LIMIT 4.0 - 6.0 ADA THERAPEUTIC TARGET < 7.0 ACTION SUGGESTED > 7.0 Performed By: #### D ATA1C #### [facility] [address] [place] [address] Dr. Ginger Keane Glucose [Mass/Vol] 160 mg/dL Normal [facility] Comment on above: Performed By: #### D ATA1C #### [facility] [address] [place] [address] Dr. Ginger Keane HbA1c (Bld) [Mass fraction] 7.2 % Critically high 4.5 -6.2 [facility] Comment on above: Performed By: #### D ATA1C #### [facility] [address] [place] [address] Dr. Ginger Keane MICROALBUMIN URINEon 022 Albumin, Urine 123.8 ug/mL Normal Not Estab. [facility] Comment on above: Performed By: #### M ALBLC #### [facility] [address] [place] [address] Dr. Ginger Keane CBC AUTO DIFFon 05-15-2022 BASO # 0.1 103/ul Normal 0.0-0.1 [facility] Comment on above: Performed By: #### C BC #### [facility] [address] [place] [address] Dr. Ginger Keane Basophils/100 WBC (Bld) 0.6 % Normal 0.2-2.0 [facility] Comment on above: Performed By: #### C BC #### [facility] [address] [place] [address] Dr. Ginger Keane EO # 0.2 103/ul Normal 0.0-0.7 [facility] Comment on above: Performed By: #### C BC #### [facility] [address] [place] [address] Dr. Ginger Keane Eosinophils/100 WBC (Bld) 2.9 % Normal 0.9-7.0 [facility] Comment on above: Performed By: #### C BC #### [facility] [address] [place] [address] Dr. Ginger Keane Erythrocyte distribution width (RBC) [Ratio] 12.9 % Normal 11.0-15.0 [facility] Comment on above: Performed By: #### C BC #### [facility] [address] [place] [address] Dr. Ginger Keane Hematocrit (Bld) [Volume fraction] 44.3 % Normal 42.0-54.0 [facility] Comment on above: Performed By: #### C BC #### [facility] [address] [place] [address] Dr. Ginger Keane Hemoglobin (Bld) [Mass/Vol] 15.6 g/dL Normal 14.0-18. 0 [facility] Comment on above: Performed By: #### C BC #### [facility] [address] [place] [address] Dr. Ginger Keane IG # 0.01 10e3/ul Normal 0.00-0.03 [facility] Comment on above: Performed By: #### C BC #### [facility] [address] [place] [address] Dr. Ginger Keane IG % 0.1 % Normal 0.0-0.5 [facility] Comment on above: Performed By: #### C BC #### [facility] [address] [place] [address] Dr. Ginger Keane LYMPH # 2.9 103/ul Normal 1.2-3.8 [facility] Comment on above: Performed By: #### C BC #### [facility] [address] [place] [address] Dr. Ginger Keane Lymphocytes/100 WBC (Bld) 34.1 % Normal 20.5-60.0 [facility] Comment on above: Performed By: #### C BC #### [facility] [address] [place] [address] Dr. Ginger Keane MANUAL DIFF REQ NO Normal [facility] Comment on above: Performed By: #### C BC #### [facility] [address] [place] [address] Dr. Ginger Keane MCH (RBC) [Entitic mass] 32.8 pg Normal 25.9-34.0 [facility] Comment on above: Performed By: #### C BC #### [facility] [address] [address] [address] Ginger Keane MCHC (RBC) [Mass/Vol] 35.2 g/dL Normal 29.9-35.2 [facility] Comment on above: Performed By: #### C BC #### [facility] [address] [address] [address] Ginger Keane MCV (RBC) [Entitic vol] 93.3 fL Normal 80.0-94.0 [facility] Comment on above: Performed By: #### C BC #### [facility] [address] [place] [address] Dr. Ginger Keane MONO # 0.6 103/ul Normal 0.3-0.8 [facility] Comment on above: Performed By: #### C BC #### [facility] [address] [place] [address] Dr. Ginger Keane Monocytes/100 WBC (Bld) 7.5 % Normal 1.7-12.0 [facility] Comment on above: Performed By: #### C BC #### [facility] [address] [place] [address] Dr. Ginger Keane NEUT # 4.6 103/ul Normal 1.4-6.5 [facility] Comment on above: Performed By: #### C BC #### [facility] [address] [place] [address] Dr. Ginger Keane Neutrophils/100 WBC (Bld) 54.8 % Normal 43.0-75.0 [facility] Comment on above: Performed By: #### C BC #### [facility] [address] [address] [address] Ginger Keane Platelet mean volume (Bld) [Entitic vol] 9.7 fL Normal 9.5-13.5 [facility] Comment on above: Performed By: #### C BC #### [facility] [address] [place] [address] Dr. Ginger Keane PLT 260 103/ul Normal 150-450 [facility] Comment on above: Performed By: #### C BC #### [facility] [address] [address] [address] Ginger Keane RBC 4.75 106/ul Normal 4.70-6.10 [facility] Comment on above: Performed By: #### C BC #### [facility] [address] [address] [address] Ginger Keane WBC 8.4 103/ul Normal 4.0-11.0 [facility] Comment on above: Performed By: #### C BC #### [facility] [address] [place] [address] Dr. Ginger Keane LIPID PROFILEon 05-15-2022 CHOL-HDL RATIO NORM SEE BELOW Normal [facility] Comment on above: Result Comment: 3.3 - 4.4 LOW RISK 4.4 - 7.1 AVERAGE RISK 7.1 - 11.0 MODERATE RISK >11.0 HIGH RISK Performed By: #### B MP, LIPID, ALT #### [facility] [address] [place] [address] Dr. Ginger Keane Cholesterol [Mass/Vol] 119 mg/dL Normal <=[address] [facility] Comment on above: Performed By: #### B MP, LIPID, ALT #### [facility] [address] [place] [address] Dr. Ginger Keane Cholesterol in HDL [Mass/Vol] 37 mg/dL Critically low 40-60 [facility] Comment on above: Performed By: #### B MP, LIPID, ALT #### [facility] [address] [place] [address] Dr. Ginger Keane Cholesterol in LDL [Mass/Vol] 35.2 mg/dL Normal [facility] Comment on above: Performed By: #### B MP, LIPID, ALT #### [facility] [address] [place] [address] Dr. Ginger Keane Cholesterol.total/Cholester ol in HDL [Mass ratio] 3.2 {ratio} Normal [facility] Comment on above: Performed By: #### B MP, LIPID, ALT #### [facility] [address] [place] [address] Dr. Ginger Keane HDL NORMAL > or = 60 mg/dl - LO W CARDIOVASCULAR RISK <40 mg/dl - HIGH CARDIOVASCULAR RISK Normal [facility] Comment on above: Performed By: #### B MP, LIPID, ALT #### [facility] [address] [address] [address] Ginger Keane LDL CALC NORMAL SEE BELOW Normal [facility] Comment on above: Result Comment: <100 mg/dl OPTIMAL 100 - 129 mg/dl NEAR OR ABOVE OPTIMAL 130 - 159 mg/dl BORDERLINE HIGH 160 - 189 mg/dl HIGH >190 mg/dl VERY HIGH Performed By: #### B MP, LIPID, ALT #### [facility] [address] [address] [address] Ginger Keane Triglyceride [Mass/Vol] 234 mg/dL Critically high <=150 [facility] Comment on above: Performed By: #### B MP, LIPID, ALT #### [facility] [address] [place] [address] Dr. Ginger Keane VLDL CALC 46.8 mg/dL Normal [facility] Comment on above: Performed By: #### B MP, LIPID, ALT #### [facility] [address] [address] [address] Ginger Keane PROF CHEM 8 (BAS METB)on Anion gap [Moles/Vol] 13.3 mmol/L Normal [facility] Comment on above: Performed By: #### B MP, LIPID, ALT #### [facility] [address] [address] [address] Ginger Keane Calcium [Mass/Vol] 8.7 mg/dL Normal 8.5-10.1 [facility] Comment on above: Performed By: #### B MP, LIPID, ALT #### [facility] [address] [address] [address] Ginger Keane Chloride [Moles/Vol] 102 mmol/L Normal 98-107 [facility] Comment on above: Performed By: #### B MP, LIPID, ALT #### [facility] [address] [address] [address] Ginger Keane CO2 [Moles/Vol] 26.8 mmol/L Normal 21.0-32.0 [facility] Comment on above: Performed By: #### B MP, LIPID, ALT #### [facility] [address] [address] [address] Ginger Keane Creatinine [Mass/Vol] 0.92 mg/dL Normal 0.70-1.30 [facility] Comment on above: Performed By: #### B MP, LIPID, ALT #### [facility] [address] [address] [address] Ginger Keane EGFR-AF INDONESIAN >60 Normal >=60 [facility] Comment on above: Performed By: #### B MP, LIPID, ALT #### [facility] [address] [address] [address] Ginger Keane EGFR-NON AF INDONESIAN >60 Normal >=60 [facility] Comment on above: Performed By: #### B MP, LIPID, ALT #### [facility] [address] [address] [address] Ginger Keane Glucose [Mass/Vol] 161 mg/dL Critically high 74-106 [facility] Comment on above: Performed By: #### B MP, LIPID, ALT #### [facility] [address] [place] [address] Dr. Ginger Keane Potassium [Moles/Vol] 4.1 mmol/L Normal 3.5-5.1 [facility] Comment on above: Performed By: #### B MP, LIPID, ALT #### [facility] [address] [address] [address] Ginger Keane Sodium [Moles/Vol] 138 mmol/L Normal 136-145 [facility] Comment on above: Performed By: #### B MP, LIPID, ALT #### [facility] [address] [address] [address] Ginger Keane Urea nitrogen [Mass/Vol] 13.0 mg/dL Normal 7.0-18.0 [facility] Comment on above: Performed By: #### B MP, LIPID, ALT #### [facility] [address] [place] [address] Dr. Ginger Keane Urea nitrogen/Creatinine [Mass ratio] 14.1 mg/mg Normal [facility] Comment on above: Performed By: #### B MP, LIPID, ALT #### [facility] [address] [address] [address] [facility] ALT [Catalytic activity/Vol] 26 U/L Normal 16-63 [facility] Comment on above: Performed By: #### B MP, LIPID, ALT #### [facility] [address] [address] [address] Ginger Keane GLYCOHEMOGLOBIN A1Con 2021 ADA RECOMMENDATION SEE BELOW Normal [facility] Comment on above: Result Comment: ADA RECOMMENDED LIMIT 4.0 - 6.0 ADA THERAPEUTIC TARGET < 7.0 ACTION SUGGESTED > 7.0 Performed By: #### D ATA1C #### [facility] [address] [address] [address] Ginger Keane Glucose [Mass/Vol] 146 mg/dL Normal [facility] Comment on above: Performed By: #### D ATA1C #### [facility] [address] [address] [address] Ginger Keane HbA1c (Bld) [Mass fraction] 6.7 % Critically high 4.5 -6.2 [facility] Comment on above: Performed By: #### D ATA1C #### [facility] [address] [address] [address] Ginger Keane Vital Signs Date Time Vital Sign Value Performing Clinician Facility 05-26-2024 13: Body height 180.34 cm [facility] 05-26-2024 13:040 Body mass index (BMI) [Ratio] 28.2 kg/m2 [facility] 05-26-2024 13: Body weight 91.73 kg [facility] 05-26-2024 13:28040 Diastolic blood pressure 64 mm[Hg] [facility] 05-26-2024 13:28040 Heart rate 77 /min [facility] 05-26-2024 13:28040 Systolic blood pressure 122 mm[Hg] [facility] 12-30-2023 11:02-0400 Body height 180.34 cm DO Vernon Ball Work Phone: [facility] 12-30-2023 11:02-0400 Body mass index (BMI) [Ratio] 26.4 kg/m2 DO Vernon Ball Work Phone: [facility] 12-30-2023 11:02-0400 Body weight 85.89 kg DO Vernon Ball Work Phone: [facility] 12-30-2023 11:02-0400 Diastolic blood pressure 72 mm[Hg] DO Vernon Ball Work Phone: [facility] 12-30-2023 11:02-0400 Heart rate 93 /min DO Vernon Ball Work Phone: [facility] 12-30-2023 11:02-0400 Respiratory rate 16 /min DO Vernon Ball Work Phone: [facility] 12-30-2023 11:02-0400 Systolic blood pressure 123 mm[Hg] DO Vernon Ball Work Phone: [facility] 10-20-2023 15:23-0500 Body height 180.34 cm [facility] 10-20-2023 15:23-0500 Body mass index (BMI) [Ratio] 25.5 kg/m2 [facility] 10-20-2023 15:23-0500 Body weight 83.09 kg [facility] 10-20-2023 15:23-0500 Diastolic blood pressure 65 mm[Hg] [facility] 10-20-2023 15:23-0500 Heart rate 99 /min [facility] 10-20-2023 15:23-0500 Respiratory rate 20 /min [facility] 10-20-2023 15:23-0500 Systolic blood pressure 126 mm[Hg] [facility] 10-01-2023 10:00-0500 Body height 180.34 cm Vernon Ball Other [facility] 01-31-2024 10:00-0500 Diastolic blood pressure 70 mm[Hg] Vernon Ball Other [facility] 10-01-2023 10:00-0500 SaO2% (BldA) [Mass fraction] 90 % Vernon Ball Other [facility] [employer] Other 10-01-2023 10:00-0500 Systolic blood pressure 124 mm[Hg] Vernon Ball Other [facility] 08-29-2023 10:00-0500 Body height 180.34 cm Vernon Ball Other [facility] 08-29-2023 10:00-0500 Body mass index (BMI) [Ratio] 25.63 kg/m2 Vernon Ball Other [facility] [employer] Other 08-29-2023 10:00-0500 Body weight 83.37 kg Vernon Ball Other [facility] 08-29-2023 10:00-0500 Diastolic blood pressure 63 mm[Hg] Vernon Ball Other [facility] 08-29-2023 10:00-0500 Respiratory rate 20 /min Vernon Ball Other [facility] [employer] Other 08-29-2023 10:00-0500 SaO2% (BldA) [Mass fraction] 84 % Vernon Ball Other [facility] [employer] Other 08-29-2023 10:00-0500 Systolic blood pressure 109 mm[Hg] Vernon Ball Other [facility] 08-12-2023 11:00-0500 Body height 180.34 cm Vernon Ball Other [facility] 08-12-2023 11:00-0500 Body mass index (BMI) [Ratio] 25.55 kg/m2 Vernon Ball Other [facility] [employer] Other 08-12-2023 11:00-0500 Body weight 83.1 kg Veronn Ball Other [facility] [employer] Other 08-12-2023 11:00-0500 Body weight 83.09 kg [facility] 08-12-2023 11:00-0500 Diastolic blood pressure 88 mm[Hg] Vernon Ball Other [facility] 08-12-2023 11:00-0500 Respiratory rate 20 /min Vernon Ball Other [facility] [employer] Other 08-12-2023 11:00-0500 SaO2% (BldA) [Mass fraction] 94 % Vernon Ball Other [facility] [employer] Other 08-12-2023 11:00-0500 Systolic blood pressure 120 mm[Hg] Vernon Ball Other [facility] 07-10-2023 11:45-0500 Body height 180.34 cm Vernon Ball Other [employer] Other 07-10-2023 11:45-0500 Body mass index (BMI) [Ratio] 26.22 kg/m2 Vernon Ball Other [employer] Other 07-10-2023 11:45-0500 Body weight 85.28 kg Vernon Ball Other [employer] Other 07-10-2023 11:45-0500 Diastolic blood pressure 75 mm[Hg] Vernon Ball Other [employer] Other 07-10-2023 11:45-0500 Respiratory rate 16 /min Vernon Ball Other [employer] Other 07-10-2023 11:45-0500 Systolic blood pressure 129 mm[Hg] Vernon Ball Other [employer] Other 07-04-2023 08:03-0400 Diastolic blood pressure 93 mm[Hg] DO Vernon Ball Work Phone: [facility] 07-04-2023 08:03-0400 Heart rate 89 /min DO Vernon Ball Work Phone: [facility] 07-04-2023 08:03-0400 Respiratory rate 16 /min DO Vernon Ball Work Phone: [facility] 07-04-2023 08:03-0400 SaO2% (BldA) [Mass fraction] 93 % DO Vernon Ball Work Phone: [facility] 07-04-2023 08:03-0400 Systolic blood pressure 140 mm[Hg] DO Vernon Ball Work Phone: [facility] 07-04-2023 06:47-0400 Body height 180.34 cm DO Vernon Ball Work Phone: [facility] 07-04-2023 06:47-0400 Body temperature 98.2 [degF] DO Vernon Ball Work Phone: [facility] 07-04-2023 06:47-0400 Body weight 86.18 kg DO Vernon Ball Work Phone: [facility] 07-02-2023 13:45-0400 Body height 180.34 cm Erickson Nascimento Other [employer] Other 07-02-2023 13:45-0400 Body mass index (BMI) [Ratio] 26.5 kg/m2 Erickson Nascimento Other [employer] Other 07-02-2023 13:45-0400 Body weight 86.18 kg Erickson Nascimento Other [employer] Other 05-20-2023 10:00-0400 Body height 180.34 cm Vernon [employer] Other [employer] Other 05-20-2023 10:00-0400 Body mass index (BMI) [Ratio] 26.64 kg/m2 Vernon Ball Other [employer] Other 05-20-2023 10:00-0400 Body weight 86.64 kg Vernon Ball Other [employer] Other 05-20-2023 10:00-0400 Diastolic blood pressure 74 mm[Hg] Vernon Ball Other [employer] Other 05-20-2023 10:00-0400 Respiratory rate 12 /min Vernon Ball Other [employer] Other 05-20-2023 10:00-0400 Systolic blood pressure 117 mm[Hg] Vernon Ball Other [employer] Other 02-17-2023 10:30-0400 Body height 180.34 cm Vernon Ball Other [employer] Other 02-17-2023 10:30-0400 Body mass index (BMI) [Ratio] 27.58 kg/m2 Vernon Ball Other [employer] Other 02-17-2023 10:30-0400 Body weight 89.72 kg Vernon Ball Other [employer] Other 02-17-2023 10:30-0400 Diastolic blood pressure 78 mm[Hg] Vernon Ball Other [employer] Other 02-17-2023 10:30-0400 Respiratory rate 12 /min Vernon Ball Other [employer] Other 02-17-2023 10:30-0400 Systolic blood pressure 128 mm[Hg] Vernon Ball Other [employer] Other 11-18-2022 11:30-0400 Body height 180.34 cm Vernon Ball Other [employer] Other 11-18-2022 11:30-0400 Body mass index (BMI) [Ratio] 27.42 kg/m2 Vernon Ball Other [employer] Other 11-18-2022 11:30-0400 Body weight 89.18 kg Vernon Ball Other [employer] Other 11-18-2022 11:30-0400 Diastolic blood pressure 70 mm[Hg] Vernon Ball Other [employer] Other 11-18-2022 11:30-0400 Respiratory rate 12 /min Vernon Ball Other [employer] Other 11-18-2022 11:30-0400 Systolic blood pressure 122 mm[Hg] Vernon Ball Other [employer] Other Encounters Encounter Date Encounter Type Care Provider Facility Start: 05-26-2024 End: 05-26-2024 ambulatory [facility] Work Phone: Start: 05-26-2024 End: 05-26-2024 Patient encounter procedure [facility] Phys[facility] [employer] Work Phone: Start: 05-24-2024 Patient encounter procedure [facility] Start: 05-17-2024 End: 05-17-2024 ambulatory CHELA ZARATE Not Available Start: 03-11-2024 Non-patient / Non-visit [facility] [employer] Work Phone: Start: 12-31-2023 End: 12-31-2023 ambulatory Carlos Guzmán Facility:[facility] Start: 12-30-2023 End: 12-30-2023 ambulatory DO Vernon Ball Work Phone: [facility] Work Phone: Start: 12-30-2023 End: 12-30-2023 Patient encounter procedure DO Vernon Greene Work Phone: [facility] Physician [facility] Work Phone: Start: 12-29-2023 Non-patient / Non-visit DO Skinny Greene Work Phone: [facility] Physician [facility] [employer] Work Phone: Start: 12-22-2023 Non-patient / Non-visit DO Skinny Greene Work Phone: [facility] [employer] Work Phone: Start: 12-09-2023 End: 12-09-[address] [facility] Facility:[facility] Start: 12-09-2023 End: 12-09-2023 ambulatory DO Vernon Greene Work Phone: [facility] Work Phone: Start: 12-09-2023 End: 12-09-2023 Patient encounter procedure DO Vernon Greene Work Phone: [facility] [address] Work Phone: Start: 11-26-2023 End: 11-26-2023 ambulatory Vernon Greene Other [facility] [employer] Other Start: 11-26-2023 Telephone encounter Vernon Greene [facility] Start: 11-24-2023 End: 11-24-2023 ambulatory [facility] Facility:[facility] Start: 11-24-2023 End: 11-24-2023 ambulatory DO Vernon Greene Work Phone: [facility] Work Phone: Start: 11-24-2023 End: 11-24-2023 Patient encounter procedure DO Vernon Greene Work Phone: [facility] [address] Work Phone: Start: 10-28-2023 Non-patient / Non-visit DO Skinny Greene Work Phone: [facility] Physician [facility] [employer] [facility] Work Phone: Start: 10-20-2023 End: 10-20-2023 ambulatory [facility] Work Phone: Start: 10-20-2023 End: 10-20-2023 Patient encounter procedure [facility] Physician [facility] Work Phone: Start: 10-14-2023 Non-patient / Non-visit DO Skinny Greene Work Phone: [facility] Physician [facility] Work Phone: Start: 10-07-2023 End: 10-07-2023 ambulatory Vernon Greene Other [employer] Other Start: 10-07-2023 Telephone encounter Venron KANG G [facility] Start: 10-06-2023 End: 10-06-2023 ambulatory Vernon Greene Other [employer] Other Start: 10-06-2023 Telephone encounter Vernon KANG G [facility] Start: 10-01-2023 End: 10-01-2023 ambulatory Imad Asaad Other [employer] Other Start: 10-01-2023 Office outpatient vi sit 25 minutes Vernon Greene [facility] Start: 10-01-2023 Telephone encounter Imad Asaad [facility] [employer] Start: 10-01-2023 End: 10-01-2023 Patient encounter procedure [facility]- Start: 09-02-2023 End: 09-02-2023 ambulatory Vernon Greene Other [employer] Other Start: 09-02-2023 Telephone encounter Vernon KANG G [facility] Start: 08-29-2023 End: 08-29-2023 ambulatory Vernon Greene Other [employer] Other Start: 08-29-2023 Office outpatient vi sit 25 minutes Vernon Greene [facility] Start: 08-29-2023 End: 08-29-2023 Patient encounter procedure [facility] Work Phone: Start: 08-12-2023 End: 08-12-2023 ambulatory Vernon Greene Other [employer] Other Start: 08-12-2023 Transitional care nicole cleary srvc 14 day discharge Vernon Greene [facility] Start: 08-12-2023 End: 08-12-2023 Patient encounter procedure [facility] Work Phone: Start: 08-06-2023 End: 08-06-2023 ambulatory Vernon Greene Other [employer] Other Start: 08-06-2023 Telephone encounter Vernon Greene [facility] Start: 08-01-2023 End: 08-01-2023 ambulatory Vernon Greene Other [employer] Other Start: 08-01-2023 Telephone encounter Vernon Greene [facility] Start: 07-30-2023 End: 07-30-2023 ambulatory Vernon Greene Other [employer] Other Start: 07-30-2023 Telephone encounter Vernon KANG G [facility] Start: 07-16-2023 End: 07-16-2023 ambulatory Navneet Puga Other [employer] Other Start: 07-16-2023 Telephone encounter Navneet Ramires [employer] Start: 07-13-2023 End: 07-13-2023 ambulatory Vernon Greene Other [employer] Other Start: 07-13-2023 Telephone encounter Vernon Greene [facility] Start: 07-10-2023 End: 07-10-2023 ambulatory Vernon Greene Other [employer] Other Start: 07-10-2023 Office outpatient vi sit 25 minutes Vernon Greene [facility] Start: 07-10-2023 Telephone encounter Vernon Greene [facility] Start: 07-04-2023 Telephone encounter Vernon Greene [facility] Start: 07-04-2023 End: 07-04-2023 ambulatory Erickson Nascimento Facility:[facility] Start: 07-04-2023 End: 07-04-2023 Admission to same day surgery center DO Vernon Ball Work Phone: [facility] Start: 07-04-2023 End: 07-04-2023 ambulatory DO Vernon Ball Work Phone: [facility] Work Phone: Start: 07-02-2023 End: 07-02-2023 ambulatory Erickson Nascimento Other [employer] Other Start: 07-02-2023 Office outpatient vi sit 25 minutes Erickson Nascimento [facility] Start: 05-21-2023 End: 05-21-2023 ambulatory Vernon Greene Other [employer] Other Start: 05-21-2023 Telephone encounter Vernon Greene [facility] Start: 05-20-2023 End: 05-20-2023 ambulatory Vernon Greene Other [employer] Other Start: 05-20-2023 Patient encounter procedure Vernon Greene [facility] Start: 02-27-2023 End: 02-27-2023 ambulatory Erickson Nascimento Other [employer] Other Start: 02-27-2023 Telephone encounter Erickson KANG G [facility] Start: 02-26-2023 End: 02-26-2023 ambulatory Erickson Nascimento Facility:[facility] Start: 02-26-2023 End: 02-26-2023 Patient encounter procedure DO Erickson Nascimento Work Phone: [facility] Start: 02-26-2023 End: 02-26-2023 ambulatory DO Erickson Nascimento Work Phone: [facility] Work Phone: Start: 02-26-2023 Office outpatient ne w 45 minutes Erickson Pily [facility] Start: 02-17-2023 End: 02-17-2023 ambulatory Vernon Ball Other [employer] Other Start: 02-17-2023 Office outpatient vi sit 25 minutes Vernon Ball [facility] Start: 01-09-2023 End: 01-09-2023 ambulatory Vernon Ball Other [employer] Other Start: 01-09-2023 Telephone encounter Vernon Ball [facility] Start: 12-24-2022 End: 12-24-2022 ambulatory Vernon Ball Other [employer] Other Start: 12-24-2022 Telephone encounter Vernon Ball [facility] Start: 11-26-2022 End: 11-26-2022 ambulatory Vernon Ball Other [employer] Other Start: 11-26-2022 Telephone encounter Vernon Ball [facility] Start: 11-25-2022 End: 11-26-2022 ambulatory VERNON BALL Facility:[facility] Start: 11-18-2022 End: 11-18-2022 ambulatory Vernon Ball Other [employer] Other Start: 11-18-2022 Office outpatient vi sit 25 minutes Vernon Ball [facility] Start: 11-15-2022 End: 11-16-[address] NONE LISTED REQUEST Facility:[facility] Start: 11-07-2022 End: 11-07-2022 ambulatory Vernon Ball Other [facility] Other Start: 11-07-2022 Telephone encounter Vernon Greene [...] Comment on above: Performed By: #### P [facility] #### [facility] [address] [place] [address] Dr. Ginger Keane Plan of Treatment Date Care Activity Detail Author Start: 11-24-2023 Hemolytic complement CH50 level [facility] Start: 11-24-2023 Hepatitis B core ant ibody measurement [facility] Start: 11-24-2023 [facility] Start: 10-20-2023 Patient referral [facility] Work Phone: Start: 07-04-2023 [facility] 24 hour urine measurement [facility] Adenosine monophosph ate.cyclic [Moles/volume] in Serum or Plasma [facility] Albumin [Mass/volume ] in Serum or Plasma [facility] Albumin/Globulin ratio [facility] Complement C3 [Mass/ volume] in Serum or Plasma [facility] Complement C4 [Mass/ volume] in Serum or Plasma [facility] Comprehensive metabo lic 1999 panel - Serum or Plasma [facility] Comprehensive metabo lic 1999 panel - Serum or Plasma [facility] Electrophoresis: [id number] [facility] Electrophoresis: [id number] [facility] Electrophoresis: beta-globulin [facility] Electrophoresis: gamma globulin [facility] Globulin [Mass/volume] in Serum [facility] Hepatitis B virus elizabeth rface Ab [Presence] in Serum [facility] Hepatitis B virus elizbaeth rface Ag [Presence] in Serum or Plasma by Immunoassay [facility] Hepatitis C virus Ig G Ab [Presence] in Serum or Plasma by Immunoassay [facility] Homogenous nuclear A b pattern [Titer] in Serum [facility] IgA [Mass/volume] in Serum or Plasma [facility] IgG [Mass/volume] in Serum or Plasma [facility] IgM [Mass/volume] in Serum or Plasma [facility] Immunofixation for Urine [facility] [place] light chains.f ree [Mass/volume] in Serum [facility] [place] light chains.f ree/Lambda light chains.free [Mass Ratio] in Serum [facility] Lambda light chains. free [Mass/volume] in Serum or Plasma [facility] Measurement of monoc lonal protein concentration [facility] Microalbumin [Mass/volume] in Urine [facility] Myeloperoxidase Ab [ Units/volume] in Serum by Immunoassay [facility] Neutrophil cytoplasm ic Ab.classic [Titer] in Serum by Immunofluorescence [facility] Neutrophil cytoplasm ic Ab.perinuclear.atypical [Titer] in Serum by Immunofluorescence [facility] Nuclear Ab [Titer] in Serum [facility] P-ANCA measurement [facility] Patient referral [facility] Work Phone: Protein [Mass/volume ] in Serum or Plasma [facility] Protein [Mass/volume] in Urine [facility] Proteinase 3 Ab [Uni ts/volume] in Serum by Immunoassay [facility] Rheumatoid factor [U nits/volume] in Serum or Plasma [facility] Serum immunofixation [place] Immunizations Immunization Date Immunization Notes Care Provider Izabel ernandez 05-25-2018 pneumococcal polysaccharide vaccine, 23 valent Vernon Greene Other [facility] 07-01-2017 diphtheria, tetanus toxoids and acellular pertussis vaccine, unspecified formulation Vernon Greene Other [facility] 07-01-2017 pneumococcal conjuga te vaccine, 13 valent Vernon Greene Other [facility] Payers Date Payer Category Payer Medicare [id number]. [id number] 1958 Self-pay 1950 Unknown [id number] 2.16.84 [id number] 1950 Unknown [id number] 2.16.84 [id number] 1950 Unknown [id number] 2.16.84 0.1.993534.3.579.2.1259 1950 Unknown [id number] 2.16.84 0.1.172030.3.579.2.1259 Unknown [id number] 2.16.84 0.1.390542.3.579.2.593 Unknown [id number] 2.16.84 0.1.446851.3.579.2.593 Unknown [id number] 2.16.84 0.1.730379.3.579.2.593 Unknown [id number] 2.16.8 40.1.689667.3.579.2.531 Unknown [id number] 2.16.8 40.1.771918.3.579.2.531 Unknown [id number] 2.16.8 40.1.787158.3.579.2.531 Unknown [id number] 2.16.8 40.1.516769.3.579.2.531 Unknown [id number] 2.16.8 40.1.025522.3.579.2.531 Social History Date Type Detail Facility Sex Assigned At [facility] Other Start: 1950 Sex Assigned At Male [facility] Start: 07-04-2023 End: 07-04-2023 Tobacco smoking status NHIS Ex-smoker (finding) [facility] Goals Date Patient Goal Desired Activity /State Clinical Notes 11-18-2022 to 10-06-2023 Note Date & Type Note Facility 10-06-2023 Evaluation note Encounter Date Diagnosis Assessment Notes Oct, Interstitial lung disease (ICD-10 - J84.9) Oct, Hypoxia (ICD-10 - R09.02) Oct, Nicotine dependence, cigarettes, in remission (ICD-10 - F17.211) Age started 17 1 ppd Age quit 52 [facility] Other 01-31-2024 Evaluation note* Encounter Date Diagnosis [...] as needed. CXR, f/u from COVID infection [facility] Other 12-29-2023 Evaluation note* Encounter Date Diagnosis [...] 1 ppd Age quit 52 Continue abstinence [facility] Other 12-12-2023 Evaluation note* Encounter Date Diagnosis [...] and hypoxia. MDI and oxygen for now. [facility] Other 12-01-2023 Evaluation note* Encounter Date Diagnosis Assessment Notes Treatment Notes Treatment Clinical Notes Aug, Weight loss (ICD-10 - R63.4) [facility] Other 11-09-2023 Evaluation note* Encounter Date Diagnosis [...] or bowel habits. No melena or hematochezia [facility] Other 11-01-2023 Evaluation note* Encounter Date Diagnosis [...] healing. 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 I have [...] Jul, Elbow mass, left (ICD-10 - R22.32) [facility] Other 09-19-2023 Evaluation note* Encounter Date Diagnosis [...] PSA (prostate specific antigen) (ICD-10 - Z12.5) [facility] Other 06-28-2023 Evaluation note* Encounter Date Diagnosis [...] as documented in the electronic medical record. [facility] Other 06-19-2023 Evaluation note* Encounter Date Diagnosis [...] wks. Nontender and mobile. Refer to Orthopedics [facility] Other 03-27-2023 NotePROCEDURE: XR KNEE LT 3V [...] Electronically authenticated by: VINNY MURILLO Date: 2022-11-25 10:55[facility]03-20[facility] Evaluation note* Encounter Date Diagnosis Assessment Notes [...] Initiate PPI and if no improvement, EGD [facility] [employer] Other Evaluation noteNo [facility] [employer] Other Evaluation noteNo assessment information available [facility] Work Phone: evaluation note* Diagnosis Onset Date Resolution Status Inflammatory polyarthritis a cute [facility] Work Phone: evaluation note* Diagnosis Onset Date Resolution Status ASHD (arteriosclerotic heart disease) acute [id number] acute Hypoxia acute ILD (interstitial lung disease) acute Inflammatory polyarthritis a cute Nicotine dependence, cigarettes, in remission acute Sinus tachycardia acute [facility] Work Phone: evaluation note* Diagnosis [...] Type 2 diabetes mellitus with hyperglycemia acute [facility] Work Phone: evaluation note* Diagnosis Onset [...] Type 2 diabetes mellitus with hyperglycemia acute [facility] Work Phone: [place] general Narrative - Reported* Type Description Date [...] long-term current use of insulin Surgical History [facility] PTCA/STENT 2002 Surgical History [facility] 2006 Hospitalization History SEE SURGICAL [facility] Other Hiswyra general Narrative - Reported* Type Description Date [...] long-term current use of insulin Surgical History [facility] PTCA/STENT 2002 Surgical History [facility] 2006 Surgical History Excision left elbow mass 3 Hospitalization History SEE SURGICAL [facility] Other Hospital Discharge instructions Additional Instructions Orthopedic [...] prescribed. You may take Motrin or Tylenol [id number] if you wish. Follow-up in [address] [facility] [address] [place] [phone] Work Phone: Reason for referral (narrative)* Reason *Waiting for appt Referral for recurrent left Olecranon bursa and SC nodule Diagnosis 1 Olecranon bursitis o f left elbow (M70.22) Diagnosis 2 Subcutaneous nodule (R22.9) Referral Organization [facility] [employer] Referring Provider First Name Vernon Referring Provider Last Name Jc Referring Provider Specialty Internal Me diclindsey Referred Organization [facility] Referred Provider Erickson Nascimento Referred Address [address] [facility] [place],[address] Referred Provider Specialty Orthopedic S urgery Referral [...] 02/17/2023 11:21:37 AM >received today, sent P2P [facility] Other Reason for referral (narrative)* Reason Referral for screeni ng colonoscopy and EGD Diagnosis 1 Unexplained weight l oss (R63.4) Diagnosis 2 Epigastric discomfor t (R10.13) Diagnosis 3 Serum lipase elevati on (R74.8) Diagnosis 4 Colon cancer screeni ng (Z12.11) Referral Organization [facility] [employer] Referring Provider First Name Vernon Referring Provider Last Name Jc Referring Provider Specialty Internal Ne dicine Referred Organization [facility] Referred Provider Rochelle Woodard Referred Address [address] [place], [place],[address] Referred Provider Specialty Gastroentero logy Referral Priority [...] be done within the next 2-3 wks. [employer] Other Summary Purpose Family History Relationship Condition [...] for Visit ASHD (arteriosclerot ic heart disease) [id number] Hypoxia ILD (interstitial lung disease) Inflammatory polyarthritis Nicotine dependence, cigarettes, in remission Sinus tachycardia Chief Complaint 4 Month Follow Up 1 week M35.9;Z11.59;Z79.899;D89.2 Hand pain Knee Pain Reason for Visit ASHD (arteriosclerot ic heart disease) [id number] Hypoxia ILD (interstitial lung disease) Inflammatory polyarthritis [...] CREATED AUTHOR AUTHOR'S ORGANIZ ATION 01/10/2024 [facility] DATE CREATED AUTHOR AUTHOR'S ORGANIZ ATION 05/23/2024 [facility] EPIC Care Teams (unrecognized [...] BE BASED ON THE PRIMARY CLINICAL RECORDS. [facility]. provides no warranty or guarantee of the accuracy or completeness of information in this document.
[2024-08-17 14:22] LABS: Basophils Absolute Auto 0.1 10^3/uL (0.0-0.1); Basophils Percent Auto 0.5 % (0.2-2.0); Eosinophils Absolute Auto 0.2 10^3/uL (0.0-0.7); Hematocrit 40.8 % (42.0-54.0); Hemoglobin 14.1 g/dL (14.0-18.0); Immature Granulocytes Abs Auto 0.02 10^3/uL (0.00-0.03); Immature Granulocytes Pct Auto 0.2 % (0.0-0.5); Lymphocytes Percent Auto 20.5 % (20.5-60.0); Mean Corpuscular HGB Conc 34.6 g/dL (29.9-35.2); Mean Corpuscular Volume 92.7 fL (80.0-94.0); Mean Platelet Volume 9.7 fL (9.5-13.5); Monocytes Absolute Auto 0.7 10^3/uL (0.3-0.8); Monocytes Percent Auto 6.9 % (1.7-12.0); Neutrophils Absolute Auto 6.6 10^3/uL (1.4-6.5); Neutrophils Percent Auto 69.9 % (43.0-75.0); Platelet Count 237 10^3/uL (150-450); Red Cell Distribution Width 13.3 % (11.0-15.0); White Blood Count 9.5 10^3/uL (4.0-11.0)
[2024-08-17 14:45] LABS: Erythrocyte Sedimentation Rate 21 mm/hr (<=20)
[2024-08-17 14:46] LABS: Alanine Aminotransferase 16 U/L (16-63); Albumin Level 3.4 g/dL (3.4-5.0); Alkaline Phosphatase 72 U/L (46-116); Aspartate Amino Transferase 11 U/L (15-37); Bilirubin Total 0.6 mg/dL (0.2-1.0); Estimated GFR (African America >60 (>=60 mL/min/1.73m^2); Estimated GFR (Non-African Ame >60 (>=60 mL/min/1.73m^2)
== END 2024-08-17 13:50 | disposition home or self-care (01) ==
LOC: LAB 13:53
PROVIDERS: PCP Internal Medicine; Visit Provider Internal Medicine Rheumatology
DX: D84.9 Immunodeficiency, unspecified (principal); Z79.69 Long term (current) use of other immunomodulators and immunosuppressants
CPT/HCPCS: 36415; 82042; 82247; 82565; 84075; 84450; 84460; 85025; 85652

== ENCOUNTER 2024-08-26 07:01 | Outpatient (RCR) | payer MEDICARE, SELFPAY ==
--- NOTE | 2024-05-07 07:34 | PC.NURSE ---
Cardiac Rehab Orientation The following information was reviewed with the patient during Orientation: [x ] 1. Program rights and responsibilities [x ] 2. Attendance Policy [x ] 3. Patients insurance coverage and copayment [ x] 4. Patients current medication list, and purpose for medications [x ] 5. Patients Qualifying diagnosis and procedure history [ x] 6. Patient health history Patients completed the following forms during Orientation: [x ] 1. Knowledge Test [x ] 2. PHQ 9 [x ] 3. SF 36 [x ] 4. Rate your plate [x ] 5. COPD Assessment [x ] 6. Tobacco Use and Dependence Questionnaire Additional Comments: Patient admission completed yesterday. Patient medication list reviewed and education provided. Patient had questions on oxygen titration and target spo2 with exertion that were communicated with Florin at Dr. Sims's office and a message was sent to the provider. Patient will begin rehab next week.
--- NOTE | 2024-05-07 07:36 | CR1_ITS ---
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
--- NOTE | 2024-05-13 11:51 | CR1_ITS ---
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
--- NOTE | 2024-06-02 09:15 | CR1_ITS ---
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
--- NOTE | 2024-07-02 15:28 | CR1_ITS ---
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
== END 2024-08-31 12:03 | disposition home or self-care (01) ==
LOC: CR 07:01
PROVIDERS: PCP Internal Medicine; Visit Provider Internal Medicine
DX: J84.10 Pulmonary fibrosis, unspecified (principal); U09.9 Post COVID-19 condition, unspecified; J96.11 Chronic respiratory failure with hypoxia
CPT/HCPCS: 94625

== ENCOUNTER 2024-09-28 13:27 | Outpatient (OUT) | payer MEDICARE, SELFPAY ==
--- OUTSIDE RECORDS SUMMARY | 2024-09-28 13:34 | XMS_ITS | CCD ---
Author Organization [facility] Care Team Providers Care Sound Printer Name Role Phone Vernon Greene Unavailable VERNON GREENE Admitting Unavailable LAUREEN, VERNON Attending Unavailable LAUREEN, VERNON Primary Care Unavailable BALL, VERNON Consulting Unavailable ZIEBER, DR VINNY Evans Consulting Unavailable LAUREEN, VERNON Primary Care Unavailable REQUEST, NONE LISTED Admitting Unavaila ble REQUEST, NONE LISTED Attending Unavaila ble REQUEST, NONE LISTED Consulting Unavaila ble REQUEST, NONE LISTED Admitting Unavaila ble REQUEST, NONE LISTED Attending Unavaila ble LAUREEN, VERNON Primary Care Unavailable REQUEST, NONE LISTED Consulting Unavaila ble REQUEST, NONE LISTED Admitting Unavaila ble REQUEST, NONE LISTED Attending Unavaila ble LAUREEN, VERNON Primary Care Unavailable REQUEST, NONE LISTED Consulting Unavaila ble LAUREEN, VERNON Admitting Unavailable LAUREEN, VERNON Attending Unavailable LAUREEN, VERNON Primary Care Unavailable LAUREEN, VERNON Consulting Unavailable DO Erickson Nascimento Attending Provider Erickson Nascimento Unavailable DO Erickson Nascimento Attending Provider [phone] DO Vernon Greene Primary Care Provider [phone] Navneet Puga Unavailable Asaad, Imad Unavailable DO [...] Attending Unavailable Vernon Greene Primary Care Unavailable ANGELES PAYAN Attending Unavailable ANGELES PAYAN Referring Unavailable Unavailable Primary Care Provider Unavailabl e Medications Current Medications Medication Drug Class(es) Dates Sig (Normalized) Sig (Original) Accu-Chek Nury Plus - (20 sources) Accu-Chek Nury Plus - USE 1 STRIP TO TEST BLOOD SUGAR ONCE EVERY DAY for 90 Active [id number] 200 actuat albuterol 0.09 mg/actuat metered dose inhaler (17 sources) beta2-Adrenergic Agonist Start: 12-22-2023 End: 04-26-2024 take 2 puff(s) by mouth every six hours as needed for wheezing Albuterol Sulfate 90 mcg/actuation HFA aerosol inhaler Active 0 .ROUTE .COMPLEX 8.5 April 26, 2024 8:28pm INHALE 2 PUFFS BY MOUTH EVERY 6 HOURS NEEDED FOR WHEEZING OR SHORTNESS OF BREATH Start: 12-22-2023 End: 12-22-2023 take 1 puff(s) by inhalation every six hours as needed for wheezing Albuterol Sulfate 90 mcg/actuation HFA aerosol inhaler Discontinued 2 PUFF INHALATION Every 6 hours as needed for shortness of breath or wheezing December 21, 2023 11:00pm December 22, 2023 3:50pm Start: 09-02-2023 take 2 puff(s) by in halation every six hours as needed for wheezing Albuterol Sulfate HFA 108 (90 Base) MCG/ACT 2 puffs Inhalation every 6 hours as needed for wheezing or shortness of breathe Sep, Active take 2 puff(s) by mo ut every six hours as needed for wheezing albuterol HFA 90 mcg/act inhaler INHALE 2 PUFFS BY MOUTH EVERY 6 HOURS NEEDED FOR WHEEZING OR SHORTNESS OF BREATH Active aspirin 81 mg oral tablet (7 sources) Platelet Aggregation Inhibitor, Nonsteroidal Anti-inflammatory Drug Start: 07-04-2023 take 1 capsule by mouth once daily Aspirin 81 mg Capsule Active 81 MG PO Daily July 03, 2023 11:00pm atorvastatin 80 mg oral tablet (20 sources) HMG-CoA Reductase Inhibitor Start: 12-19-2023 take 1 tablet by mouth once daily in the evening Atorvastatin 80 mg tablet Active 0 .ROUTE .COMPLEX 90 December 19, 2023 12:34pm TAKE 1 TABLET BY MOUTH EVERY DAY IN THE EVENING Start: 07-04-2023 End: 12-19-2023 take 1 tablet by mouth once daily Atorvastatin 80 mg tablet Discontinued 80 MG PO Daily July 03, 2023 11:00pm December 19, 2023 12:34pm dapagliflozin 10 mg oral tablet (20 sources) Sodium-Glucose Cotransporter 2 Inhibitor Start: 06-21-2024 take 1 tablet by mouth once daily Dapagliflozin Propanediol (Farxiga) 10 mg tablet Active 0 .ROUTE .COMPLEX June 21, 2024 9:43am TAKE 1 TABLET BY MOUTH EVERY DAY Start: 07-04-2023 End: 06-21-2024 take 1 tablet by mouth once daily Dapagliflozin Propanediol (Farxiga) 10 mg tablet Discontinued 10 MG PO Daily July 03, 2023 11:00pm June 21, 2024 9:43am trulicity 3 mg/0.5ml solution pen-injector (20 sources) GLP-1 Receptor Agonist Trulicity 3 MG/0.5ML INJECT 1 PEN SUBCUTANEOUSLY ONCE A WEEK Active Trulicity 3 MG/0 .5ML as directed Subcutaneous Active hydroxychloroquine sulfate 200 mg oral tablet (6 sources) Antimalarial, Antirheumatic Agent Start: 12-01-2023 take 1 tablet by mouth once daily Hydroxychloroquine (Plaquenil) 200 mg tablet Active 200 MG PO Daily November 30, 2023 11:00pm take 1 tablet by mariangel th twice daily at mealtime hydroxychloroquine (Plaquenil) 200 MG ta blet TAKE 1 TABLET BY MOUTH TWICE DAILY WITH FOOD. REMEMBER YEARLY EYE EXAM Active losartan potassium 25 mg oral tablet (20 sources) Angiotensin 2 Receptor Anne-Marie Start: 06-21-2024 take 1 tablet by mouth once daily Losartan 25 mg tablet Active 0 .ROUTE .COMPLEX 90 June 21, 2024 9:43am TAKE 1 TABLET BY MOUTH EVERY DAY Start: 07-04-2023 End: 06-21-2024 take 1 tablet by mouth once daily Losartan 25 mg tablet Discontinued 25 MG PO Daily July 03, 2023 11:00pm June 21, 2024 9:43am metFORMIN hydrochloride 1000 mg oral tablet (20 sources) Biguanide Start: 06-21-2024 take 1 tablet by mouth before breakfast Metformin 1,000 mg tablet Active 0 .ROUTE .COMPLEX 180 June 21, 2024 9:43am TAKE 1 TABLET BY MOUTH BEFORE BREAKFAST AND EVENING MEAL 90 Start: 07-04-2023 End: 06-21-2024 take 1 tablet by mouth once daily Metformin 1,000 mg tablet Discontinued 1000 MG PO Daily July 03, 2023 11:00pm June 21, 2024 9:43am 24 hr metoprolol succinate 25 mg extended release oral tablet (20 sources) beta-Adrenergic Anne-Marie Start: 06-21-2024 take 1 tablet by mouth once daily Metoprolol Succinate 25 mg tablet extended release 24 hr Active 0 .ROUTE .COMPLEX 90 June 21, 2024 9:43am TAKE 1 TABLET BY MOUTH EVERY DAY Start: 07-04-2023 End: 06-21-2024 take 1 tablet by mouth once daily Metoprolol Succinate 25 mg tablet extended release 24 hr Discontinued 25 MG PO Daily July 03, 2023 11:00pm June 21, 2024 9:43am mycophenolate mofetil 500 mg oral tablet (1 source) Start: 06-24-2024 take 1 tablet by mouth twice daily Mycophenolate Mofetil (Cellcept) 500 mg tablet Active 500 MG PO Twice daily 60 June 23, 2024 11:00pm nitroglycerin 0.4 mg sublingual tablet (20 sources) Nitrate Vasodilator Start: 07-04-2023 End: 08-11-2024 take 1 tablet under the tongue once daily as needed for pain Nitroglycerin 0.4 mg tablet, sublingual Active 0.4 MG SUBLINGUAL Daily as needed for Chest Pain August 11, 2024 5:39pm pt has never used Nitroglycerin 0. 4 MG 1 tablet Sublingual PRN Active omeprazole 20 mg delayed release oral tablet (12 sources) Proton Pump Inhibitor Start: 07-04-2023 take 1 tablet by mouth once daily Omeprazole 20 mg Tablet,Delayed Release (Dr/Ec) Active 20 MG PO Daily July 03, 2023 11:00pm Start: 11-18-2022 take 1 capsule by [facility] once daily Omeprazole 40 MG 1 capsule 30 minutes before morning meal Orally Once a day for 30 days Oct, Active Ozempic, 1 MG/DOSE, 4 MG/3ML solution pen-injector (2 sources) Start: 04-18-2024 inject 1 mg by subcutaneous injection every week Ozempic, 1 MG/DOSE, 4 MG/3ML solution pen-injector INJECT 1MG SUBCUTANEOUSLY EVERY WEEK FOR 28 DAYS 04/18/2024 Active predniSONE 5 mg oral tablet (3 sources) Start: 09-24-2024 take 1 tablet by mouth every other day Prednisone 5 mg tablet Active 5 MG PO .QOD September 24, 2024 12:00am Start: 05-13-2024 predniSONE (De ltasone) 5 MG tablet 05/13/2024 Active Semaglutide (4 sources) Start: 09-03-2024 inject 1 mg by subcutaneous injection every week Semaglutide (Ozempic) 1 mg/dose (4 mg/3 mL) pen injector Active 1 MG SUBCUT every week 3 September 03, 2024 1:11pm Start: 07-19-2024 End: 09-03-2024 inject 1 mg by subcutaneous injection every week Semaglutide (Ozempic) 1 mg/dose (4 mg/3 mL) pen injector Discontinued 1 MG SUBCUT every week 3 July 19, 2024 8:57pm September 03, 2024 1:11pm Start: 01-28-2024 End: 07-19-2024 inject 1 mg by subcutaneous injection every week Semaglutide (Ozempic) 1 mg/dose (4 mg/3 mL) pen injector Discontinued 1 MG SUBCUT every week 3 January 27, 2024 11:00pm July 19, 2024 8:58pm Start: 01-28-2024 inject 1 mg by subcu taneous injection every week Semaglutide (Ozempic) 1 mg/dose (4 mg/3 mL) pen injector Active 1 MG SUBCUT every week 3 January 28, 2024 12:00am Completed/Discontinued Medications Medication Drug Class(es) Dates Sig (Normalized) Sig (Original) Dulaglutide (Trulicity) 3 mg/0.5 mL pen injector (7 sources) Start: 07-04-2023 End: 01-28-2024 Dulaglutide (Trulicity) 3 mg/0.5 mL pen injector Discontinued 3 MG SUBCUT every week July 03, 2023 11:00pm January 28, 2024 4:52pm Start: 07-04-2023 End: 01-28-2024 Dulaglutide (Trulicity) 3 mg /0.5 mL pen injector Discontinued 3 MG SUBCUT every week July 04, 2023 12:00am January 28, 2024 5:52pm Start: 07-04-2023 Dulaglutide (T rulicity) 3 mg/0.5 mL pen injector Active 3 MG SUBCUT every week July 03, 2023 11:00pm Start: 07-04-2023 Dulaglutide (T rulicity) 3 mg/0.5 mL pen injector Active 3 MG SUBCUT every week July 04, 2023 12:00am meloxicam 15 mg oral tablet (16 sources) Nonsteroidal Anti-inflammatory Drug Start: 12-03-2023 End: 05-26-2024 take 1 tablet by mouth once daily Meloxicam 15 mg tablet Discontinued 0 .ROUTE .COMPLEX December 03, 2023 8:57am May 26, 2024 12:31pm TAKE 1 TABLET BY MOUTH EVERY DAY Start: 10-20-2023 End: 12-03-2023 take 1 tablet by mouth once daily Meloxicam 15 mg tablet Discontinued 15 MG PO Daily November 03, 2023 5:58pm December 03, 2023 8:58am traMADol hydrochloride 50 mg oral tablet (7 sources) Opioid Agonist Start: 07-04-2023 End: 05-26-2024 take 1 tablet by mouth every four hours as needed for pain Tramadol 50 mg tablet Discontinued 50 MG PO Q4H as needed for pain 06 07July 03, 2023 11:00pm May 26, 2024 12:32pm Problems Active Problems Problem Classification Problem Date Documented Da te Episodic/Chronic Abdominal pain (2 sources) Epigastric pain Episodic Cardiac dysrhythmias (10 sources) Tachycardia, unspecified; Translations: [Sinus tachycardia] Episodic Chronic obstructive pulmonary disease and bronchiectasis (20 sources) Acute exacerbation of chronic obstructive airways disease; Translations: [Chronic obstructive pulmonary disease with (acute) exacerbation] Chronic Coronary atherosclerosis and other heart disease (20 sources) Coronary arteriosclerosis; Translations: [Atherosclerotic heart disease of [place] coronary artery without angina pectoris] Chronic Diabetes mellitus with complications (20 sources) Polyneuropathy due to type 2 diabetes mellitus; Translations: [Type 2 diabetes mellitus with diabetic polyneuropathy] Onset: 05-15-2022 Chronic Diabetes mellitus without complication (2 sources) Type 2 diabetes mellitus; Translations: [Type 2 diabetes mellitus without complications] 05-17-2024 Chronic Disorders of lipid metabolism (20 sources) [...] sources) H/O: high risk medication; Translations: [Other intermediate (current) drug therapy] Episodic Other aftercare (2 sources) Other intermediate (current) drug therapy; Translations: [OTH HELP DESK SPECIALIST CURRENT DRUG THERAPY] Onset: 05-19-2022 Episodic Other connective tissue disease (2 sources) Disorder of connective tissue; Translations: [Polymyalgia rheumatica] 05-17-2024 Chronic Other connective tissue disease (3 sources) Olecranon [...] serum enzymes Episodic Other lower respiratory disease (9 sources) Interstitial lung disease; Translations: [Interstitial pulmonary disease, unspecified] 10-20-2023 Chronic Comment on above: CT chest: interstiti al changes, pulmonary fibrosis - 04/2024 Other lower respiratory disease (7 sources) Interstitial pulmonary disease, unspecified; 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 Other lower respiratory disease (2 sources) Fibrosis of lung; Translations: [Pulmonary fibrosis, unspecified] 05-04-2024 Chronic Other lower respiratory disease (10 sources) Hypoxemia; Translations: [Hypoxemia] Episodic Other lower respiratory disease (6 sources) Hypoxia; Translations: [Hypoxemia] 10-18-2023 Episodic Other [...] conditions (not mental disorders or infectious disease) (7 sources) Encounter for screening for malignant neoplasm of prostate; Translations: [Encounter for screening for malignant neoplasm of colon] Onset: 05-19-2022 Episodic Comment on above: PSA: 0.9 - Jun 2024, Other skin disorders (1 source) Localized swelling, mass and lump, unspecified Episodic Other skin disorders (1 source) Localized swelling, mass and lump, left upper limb Episodic Other skin disorders (8 sources) Localized swelling, mass and lump, unspecified upper limb; Translations: [Elbow mass] Onset: 07-04-2023 07-04-2023 Episodic Other upper respiratory disease (20 sources) Bleeding from nose; Translations: [Epistaxis] Episodic Rheumatoid arthritis and related disease (18 sources) Inflammatory polyarthropathy; Translations: [Inflammatory polyarthropathy] 10-20-2023 [...] in left elbow] Onset: 02-26-2023 Viral infection (9 sources) COVID-19; Translations: [Pneumonia due to COVID-19 virus] 10-18-2023 Episodic Past or Other Problems Problem Classification Problem Date Documented Da te Episodic/Chronic Esophageal disorders (5 sources) Esophageal disorders Other fractures (2 sources) Closed fracture of multiple left ribs; Translations: [Multiple fractures of ribs, left side, initial encounter for closed fracture] 05-17-2024 Episodic Other lower respiratory disease (2 sources) Rib pain; Translations: [Pleurodynia] 05-17-2024 Episodic Pneumonia (except that caused by tuberculosis or sexually transmitted disease) (3 sources) Pneumonia (except that caused by tuberculosis or sexually transmitted disease) Viral infection (2 sources) COVID-19 Results Test Name Value Interpretation Reference Range Facility Basophils Auto (Bld) [#/Vol] on 08-17-2024 Basophils (Bld) [#/Vol] Automated basoph il count 0.0-0.1 [facility] Basophils/100 WBC Auto (Bld) on 08-17-2024 Basophils/100 WBC (Bld) Automated basophil % 0. 2-2.0 [facility] Eosinophils/100 WBC Auto (Bl d)on 08-17-2024 Eosinophils/100 WBC (Bld) Automated eosi nophil % 0.9-7.0 [facility] Erythrocyte distribution wid th Auto (RBC) [Ratio]on 08-17-2024 Erythrocyte distribution width (RBC) [Ratio] Erythrocyte distribution width [Ratio] by Automated count 11.0-15.0 [facility] Estimated glomerular filtrat ion rate (GFR) non- Americanon 08-17-2024 GFR/1.73 sq M.predicted among non-blacks MDRD (S/P/Bld) [Vol rate/Area] Estimated glomerular filtration rate (GFR) non- >=60 mL/min/1.7 3m 2 [facility] Hematocrit Auto (Bld) [Volum e fraction]on 08-17-2024 Hematocrit (Bld) [Volume fraction] Hematocrit [Volume Fraction] of Blood by Automated count Low 42.0-54.0 [facility] Hemoglobin [Mass/volume] in Bloodon 08-17-2024 Hemoglobin (Bld) [Mass/Vol] Hemoglobin [Mass/volume] in Blood 14.0-18.0 [facility] Laboratory - Chemistry and C hemistry - challengeon 08-17-2024 Albumin [Mass/Vol] 3.4 g/dL 3.4-5.0 [facility] ALP [Catalytic activity/Vol] 72 U/L 46-116 [facility] ALT [Catalytic activity/Vol] 16 U/L 16-63 [facility] AST [Catalytic activity/Vol] 11 U/L Low 15-37 [facility] Bilirubin [Mass/Vol] 0.6 mg/dL 0.2-1.0 [facility] Creatinine [Mass/Vol] 1.17 mg/dL 0.70-1.30 [facility] GFR/1.73 sq M.predicted MDRD (S/P/Bld) [Vol rate/Area] mL/min/{1.73_m2} >=60 mL/min/1.7 3m 2 [facility] - Hematology and Cell countson 08-17-2024 ESR (Bld) [Velocity] 21 mm/h High <=20 [facility] Immature granulocytes/100 WBC (Bld) 0.2 % 0.0-0.5 [facility] Leukocytes [#/volume] correc yuniel for nucleated erythrocytes in Blood by Automated counon 08-17-2024 WBC corrected for nucl RBC Auto (Bld) [#/Vol] Leukocytes [#/volume] corrected for nucleated erythrocytes in Blood by Automated coun 4.0-11.0 [facility] Lymphocytes Auto (Bld) [#/Vo l]on 08-17-2024 Lymphocytes (Bld) [#/Vol] Lymphocytes [#/volume] in Blood by Automated count 1.2-3.8 [facility] Lymphocytes/100 WBC Auto (Bl d)on 08-17-2024 Lymphocytes/100 WBC (Bld) Lymphocytes/10 0 leukocytes in Blood by Automated count 20.5-60.0 [facility] MCH Auto (RBC) [Entitic mass ]on 08-17-2024 MCH (RBC) [Entitic mass] MCH [Entitic ma ss] by Automated count 25.9-34.0 [facility] MCHC Auto (RBC) [Mass/Vol]on 08-17-2024 MCHC (RBC) [Mass/Vol] MCHC [Mass/volume] by Automated count 29.9-35.2 [facility] MCV Auto (RBC) [Entitic vol] on 08-17-2024 MCV (RBC) [Entitic vol] MCV [Entitic vol ume] by Automated count 80.0-94.0 [facility] Monocytes Auto (Bld) [#/Vol] on 08-17-2024 Monocytes (Bld) [#/Vol] Automated blood monocyte count 0.3-0.8 [facility] Monocytes/100 WBC Auto (Bld) on 08-17-2024 Monocytes/100 WBC (Bld) Automated monocyte % 1. 7-12.0 [facility] Neutrophils Auto (Bld) [#/Vo l]on 08-17-2024 Neutrophils (Bld) [#/Vol] Neutrophils [#/volume] in Blood by Automated count High 1.4-6.5 [facility] Neutrophils/100 WBC Auto (Bl d)on 08-17-2024 Neutrophils/100 WBC (Bld) Automated neut rophil % 43.0-75.0 [facility] No Panel Informationon 08-17 Eosinophils # (Auto) 0.2 10 3/uL 0.0-0.7 [facility] Immature Granulocyte # (Auto) 0.02 10 3/uL 0.00-0.03 [facility] Platelet mean volume Auto (B ld) [Entitic vol]on 08-17-2024 Platelet mean volume (Bld) [Entitic vol] Platelet mean volume [Entitic volume] in Blood by Automated count 9.5-13.5 [facility] Platelets Auto (Bld) [#/Vol] on 08-17-2024 Platelets (Bld) [#/Vol] Platelets [#/vol ume] in Blood by Automated count 150-450 [facility] RBC Auto (Bld) [#/Vol]on RBC (Bld) [#/Vol] Erythrocytes [#/volume] in Blood by Automated count Low 4.70-6.10 [facility] Basophils Auto (Bld) [#/Vol] on 08-03-2024 Basophils (Bld) [#/Vol] Automated basoph il count 0.0-0.1 [facility] Basophils/100 WBC Auto (Bld) on 08-03-2024 Basophils/100 WBC (Bld) Automated basophil % 0. 2-2.0 [facility] Eosinophils/100 WBC Auto (Bl d)on 08-03-2024 Eosinophils/100 WBC (Bld) Automated eosi nophil % 0.9-7.0 [facility] Erythrocyte distribution wid th Auto (RBC) [Ratio]on 08-03-2024 Erythrocyte distribution width (RBC) [Ratio] Erythrocyte distribution width [Ratio] by Automated count 11.0-15.0 [facility] Hematocrit Auto (Bld) [Volum e fraction]on 08-03-2024 Hematocrit (Bld) [Volume fraction] Hematocrit [Volume Fraction] of Blood by Automated count Low 42.0-54.0 [facility] Hemoglobin [Mass/volume] in Bloodon 08-03-2024 Hemoglobin (Bld) [Mass/Vol] Hemoglobin [Mass/volume] in Blood Low 14.0-18.0 [facility] - Hematology and Cell countson 08-03-2024 ESR (Bld) [Velocity] 22 mm/h High <=20 [facility] Immature granulocytes/100 WBC (Bld) 0.3 % 0.0-0.5 [facility] Leukocytes [#/volume] correc yuniel for nucleated erythrocytes in Blood by Automated counon 08-03-2024 WBC corrected for nucl RBC Auto (Bld) [#/Vol] Leukocytes [#/volume] corrected for nucleated erythrocytes in Blood by Automated coun 4.0-11.0 [facility] Lymphocytes Auto (Bld) [#/Vo l]on 08-03-2024 Lymphocytes (Bld) [#/Vol] Lymphocytes [#/volume] in Blood by Automated count 1.2-3.8 [facility] Lymphocytes/100 WBC Auto (Bl d)on 08-03-2024 Lymphocytes/100 WBC (Bld) Lymphocytes/10 0 leukocytes in Blood by Automated count 20.5-60.0 [facility] MCH Auto (RBC) [Entitic mass ]on 08-03-2024 MCH (RBC) [Entitic mass] MCH [Entitic ma ss] by Automated count 25.9-34.0 [facility] MCHC Auto (RBC) [Mass/Vol]on 08-03-2024 MCHC (RBC) [Mass/Vol] MCHC [Mass/volume] by Automated count 29.9-35.2 [facility] MCV Auto (RBC) [Entitic vol] on 08-03-2024 MCV (RBC) [Entitic vol] MCV [Entitic vol ume] by Automated count 80.0-94.0 [facility] Monocytes Auto (Bld) [#/Vol] on 08-03-2024 Monocytes (Bld) [#/Vol] Automated blood monocyte count 0.3-0.8 [facility] Monocytes/100 WBC Auto (Bld) on 08-03-2024 Monocytes/100 WBC (Bld) Automated monocyte % 1. 7-12.0 [facility] Neutrophils Auto (Bld) [#/Vo l]on 08-03-2024 Neutrophils (Bld) [#/Vol] Neutrophils [#/volume] in Blood by Automated count 1.4-6.5 [facility] Neutrophils/100 WBC Auto (Bl d)on 08-03-2024 Neutrophils/100 WBC (Bld) Automated neut rophil % 43.0-75.0 [facility] No Panel Informationon 08-03 Eosinophils # (Auto) 0.1 10 3/uL 0.0-0.7 [facility] Immature Granulocyte # (Auto) 0.03 10 3/uL 0.00-0.03 [facility] Platelet mean volume Auto (B ld) [Entitic vol]on 08-03-2024 Platelet mean volume (Bld) [Entitic vol] Platelet mean volume [Entitic volume] in Blood by Automated count 9.5-13.5 [facility] Platelets Auto (Bld) [#/Vol] on 08-03-2024 Platelets (Bld) [#/Vol] Platelets [#/vol ume] in Blood by Automated count 150-450 [facility] RBC Auto (Bld) [#/Vol]on RBC (Bld) [#/Vol] Erythrocytes [#/volume] in Blood by Automated count Low 4.70-6.10 [facility] Basophils Auto (Bld) [#/Vol] on 07-15-2024 Basophils (Bld) [#/Vol] Automated basoph il count 0.0-0.1 [facility] Basophils/100 WBC Auto (Bld) on 07-15-2024 Basophils/100 WBC (Bld) Automated basophil % 0. 2-2.0 [facility] Eosinophils/100 WBC Auto (Bl d)on 07-15-2024 Eosinophils/100 WBC (Bld) Automated eosi nophil % 0.9-7.0 [facility] Erythrocyte distribution wid th Auto (RBC) [Ratio]on 07-15-2024 Erythrocyte distribution width (RBC) [Ratio] Erythrocyte distribution width [Ratio] by Automated count 11.0-15.0 [facility] Hematocrit Auto (Bld) [Volum e fraction]on 07-15-2024 Hematocrit (Bld) [Volume fraction] Hematocrit [Volume Fraction] of Blood by Automated count Low 42.0-54.0 [facility] Hemoglobin [Mass/volume] in Bloodon 07-15-2024 Hemoglobin (Bld) [Mass/Vol] Hemoglobin [Mass/volume] in Blood 14.0-18.0 [facility] Laboratory - Hematology and Cell countson 07-15-2024 Immature granulocytes/100 WBC (Bld) 0.2 % 0.0-0.5 [facility] Leukocytes [#/volume] correc yuniel for nucleated erythrocytes in Blood by Automated counon 07-15-2024 WBC corrected for nucl RBC Auto (Bld) [#/Vol] Leukocytes [#/volume] corrected for nucleated erythrocytes in Blood by Automated coun 4.0-11.0 [facility] Lymphocytes Auto (Bld) [#/Vo l]on 07-15-2024 Lymphocytes (Bld) [#/Vol] Lymphocytes [#/volume] in Blood by Automated count 1.2-3.8 [facility] Lymphocytes/100 WBC Auto (Bl d)on 07-15-2024 Lymphocytes/100 WBC (Bld) Lymphocytes/10 0 leukocytes in Blood by Automated count 20.5-60.0 [facility] MCH Auto (RBC) [Entitic mass ]on 07-15-2024 MCH (RBC) [Entitic mass] MCH [Entitic ma ss] by Automated count 25.9-34.0 [facility] MCHC Auto (RBC) [Mass/Vol]on 07-15-2024 MCHC (RBC) [Mass/Vol] MCHC [Mass/volume] by Automated count High 29.9-35.2 [facility] MCV Auto (RBC) [Entitic vol] on 07-15-2024 MCV (RBC) [Entitic vol] MCV [Entitic vol ume] by Automated count 80.0-94.0 [facility] Monocytes Auto (Bld) [#/Vol] on 07-15-2024 Monocytes (Bld) [#/Vol] Automated blood monocyte count High 0.3-0.8 [facility] Monocytes/100 WBC Auto (Bld) on 07-15-2024 Monocytes/100 WBC (Bld) Automated monocyte % 1. 7-12.0 [facility] Neutrophils Auto (Bld) [#/Vo l]on 07-15-2024 Neutrophils (Bld) [#/Vol] Neutrophils [#/volume] in Blood by Automated count 1.4-6.5 [facility] Neutrophils/100 WBC Auto (Bl d)on 07-15-2024 Neutrophils/100 WBC (Bld) Automated neut rophil % 43.0-75.0 [facility] No Panel Informationon 07-15 Eosinophils # (Auto) 0.2 10 3/uL 0.0-0.7 [facility] Immature Granulocyte # (Auto) 0.02 10 3/uL 0.00-0.03 [facility] Platelet mean volume Auto (B ld) [Entitic vol]on 07-15-2024 Platelet mean volume (Bld) [Entitic vol] Platelet mean volume [Entitic volume] in Blood by Automated count 9.5-13.5 [facility] Platelets Auto (Bld) [#/Vol] on 07-15-2024 Platelets (Bld) [#/Vol] Platelets [#/vol ume] in Blood by Automated count 150-450 [facility] RBC Auto (Bld) [#/Vol]on RBC (Bld) [#/Vol] Erythrocytes [#/volume] in Blood by Automated count Low 4.70-6.10 [facility] Basophils Auto (Bld) [#/Vol] on 07-08-2024 Basophils (Bld) [#/Vol] Automated basoph il count 0.0-0.1 [facility] Basophils/100 WBC Auto (Bld) on 07-08-2024 Basophils/100 WBC (Bld) Automated basophil % 0. 2-2.0 [facility] Eosinophils/100 WBC Auto (Bl d)on 07-08-2024 Eosinophils/100 WBC (Bld) Automated eosi nophil % 0.9-7.0 [facility] Erythrocyte distribution wid th Auto (RBC) [Ratio]on 07-08-2024 Erythrocyte distribution width (RBC) [Ratio] Erythrocyte distribution width [Ratio] by Automated count 11.0-15.0 [facility] Estimated glomerular filtrat ion rate (GFR) non- Americanon 07-08-2024 GFR/1.73 sq M.predicted among non-blacks MDRD (S/P/Bld) [Vol rate/Area] Estimated glomerular filtration rate (GFR) non- Low >=60 mL/min/1.7 3m 2 [facility] Hematocrit Auto (Bld) [Volum e fraction]on 07-08-2024 Hematocrit (Bld) [Volume fraction] Hematocrit [Volume Fraction] of Blood by Automated count Low 42.0-54.0 [facility] Hemoglobin [Mass/volume] in Bloodon 07-08-2024 Hemoglobin (Bld) [Mass/Vol] Hemoglobin [Mass/volume] in Blood 14.0-18.0 [facility] Laboratory - Chemistry and C hemistry - challengeon 07-08-2024 Bilirubin Ql (U) Negative NEGATIVE [facility] Glucose (U) [Mass/Vol] mg/dL Abnormal [facility] Ketones Ql (U) TRACE mg/dL Abnormal NEGATIVE [facility] pH (U) 5.5 [pH] 5.0-9.0 [facility] Specific gravity (U) [Rel density] 1.025 1.005-1.02 5 [facility] Urobilinogen Qn (U) 0.2 {Denis'U}/dL 0.2-1.0 [facility] Albumin [Mass/Vol] 3.5 g/dL 3.4-5.0 [facility] ALP [Catalytic activity/Vol] 81 U/L 46-116 [facility] ALT [Catalytic activity/Vol] 22 U/L 16-63 [facility] AST [Catalytic activity/Vol] 9 U/L Low 15-37 [facility] Bilirubin [Mass/Vol] 0.7 mg/dL 0.2-1.0 [facility] Creatinine [Mass/Vol] 1.21 mg/dL 0.70-1.30 [facility] GFR/1.73 sq M.predicted MDRD (S/P/Bld) [Vol rate/Area] mL/min/{1.73_m2} >=60 mL/min/1.7 3m 2 [facility] Laboratory - Hematology and Cell countson 07-08-2024 ESR (Bld) [Velocity] 20 mm/h <=20 [facility] Immature granulocytes/100 WBC (Bld) 0.2 % 0.0-0.5 [facility] - Specimen inform ationon 07-08-2024 Appearance (U) CLEAR CLEAR [facility] Color (U) LT. YELLOW YELLOW [facility] Laboratory - Urinalysison Amorphous sediment LM Ql (Urine sed) RARE [facility] Leukocyte esterase Test strip Ql (U) Negative NEGATIVE [facility] Mucus Ql (Urine sed) NONE SEEN NONE SEEN [facility] Nitrite Ql (U) Negative NEGATIVE [facility] Protein Ql (U) 30 mg/dL Abnormal NEG/TRACE [facility] Leukocytes [#/volume] correc yuniel for nucleated erythrocytes in Blood by Automated counon 07-08-2024 WBC corrected for nucl RBC Auto (Bld) [#/Vol] Leukocytes [#/volume] corrected for nucleated erythrocytes in Blood by Automated coun 4.0-11.0 [facility] Lymphocytes Auto (Bld) [#/Vo l]on 07-08-2024 Lymphocytes (Bld) [#/Vol] Lymphocytes [#/volume] in Blood by Automated count 1.2-3.8 [facility] Lymphocytes/100 WBC Auto (Bl d)on 07-08-2024 Lymphocytes/100 WBC (Bld) Lymphocytes/10 0 leukocytes in Blood by Automated count 20.5-60.0 [facility] MCH Auto (RBC) [Entitic mass ]on 07-08-2024 MCH (RBC) [Entitic mass] MCH [Entitic ma ss] by Automated count 25.9-34.0 [facility] MCHC Auto (RBC) [Mass/Vol]on 07-08-2024 MCHC (RBC) [Mass/Vol] MCHC [Mass/volume] by Automated count 29.9-35.2 [facility] MCV Auto (RBC) [Entitic vol] on 07-08-2024 MCV (RBC) [Entitic vol] MCV [Entitic vol ume] by Automated count 80.0-94.0 [facility] Monocytes Auto (Bld) [#/Vol] on 07-08-2024 Monocytes (Bld) [#/Vol] Automated blood monocyte count 0.3-0.8 [facility] Monocytes/100 WBC Auto (Bld) on 07-08-2024 Monocytes/100 WBC (Bld) Automated monocyte % 1. 7-12.0 [facility] Neutrophils Auto (Bld) [#/Vo l]on 07-08-2024 Neutrophils (Bld) [#/Vol] Neutrophils [#/volume] in Blood by Automated count 1.4-6.5 [facility] Neutrophils/100 WBC Auto (Bl d)on 07-08-2024 Neutrophils/100 WBC (Bld) Automated neut rophil % 43.0-75.0 [facility] No Panel Informationon 07-08 Urine Bacteria NONE SEEN #/HPF NONE SEEN [facility] Urine Occult Blood Negative NEGATIVE [facility] Urine Other Casts NONE SEEN #/LPF [facility]ONE [facility] Urine Other Crystals Seen #/HPF Abnormal None Seen [facility] Urine RBC NONE SEEN #/HPF 0-2 [facility] Urine Squamous Epithelial Cells NONE SEEN #/LPF NONE/RARE [facility] Urine WBC NONE SEEN #/HPF NONE SEEN [facility] C-Reactive Protein, Quantitative <0.50 mg/dL <=0.50 [facility] Eosinophils # (Auto) 0.1 10 3/uL 0.0-0.7 Fir [facility] Immature Granulocyte # (Auto) 0.02 10 3/uL 0.00-0.03 [facility] Platelet mean volume Auto (B ld) [Entitic vol]on 07-08-2024 Platelet mean volume (Bld) [Entitic vol] Platelet mean volume [Entitic volume] in Blood by Automated count 9.5-13.5 [facility] Platelets Auto (Bld) [#/Vol] on 07-08-2024 Platelets (Bld) [#/Vol] Platelets [#/vol ume] in Blood by Automated count 150-450 [facility] RBC Auto (Bld) [#/Vol]on RBC (Bld) [#/Vol] Erythrocytes [#/volume] in Blood by Automated count Low 4.70-6.10 [facility] Basophils Auto (Bld) [#/Vol] on 07-01-2024 Basophils (Bld) [#/Vol] Automated basoph il count 0.0-0.1 [facility] Basophils/100 WBC Auto (Bld) on 07-01-2024 Basophils/100 WBC (Bld) Automated basophil % 0. 2-2.0 [facility] Eosinophils/100 WBC Auto (Bl d)on 07-01-2024 Eosinophils/100 WBC (Bld) Automated eosi nophil % 0.9-7.0 [facility] Erythrocyte distribution wid th Auto (RBC) [Ratio]on 07-01-2024 Erythrocyte distribution width (RBC) [Ratio] Erythrocyte distribution width [Ratio] by Automated count 11.0-15.0 [facility] Hematocrit Auto (Bld) [Volum e fraction]on 07-01-2024 Hematocrit (Bld) [Volume fraction] Hematocrit [Volume Fraction] of Blood by Automated count Low 42.0-54.0 [facility] Hemoglobin [Mass/volume] in Bloodon 07-01-2024 Hemoglobin (Bld) [Mass/Vol] Hemoglobin [Mass/volume] in Blood Low 14.0-18.0 [facility] Laboratory - Hematology and Cell countson 07-01-2024 Immature granulocytes/100 WBC (Bld) 0.2 % 0.0-0.5 [facility] Leukocytes [#/volume] correc yuniel for nucleated erythrocytes in Blood by Automated counon 07-01-2024 WBC corrected for nucl RBC Auto (Bld) [#/Vol] Leukocytes [#/volume] corrected for nucleated erythrocytes in Blood by Automated coun 4.0-11.0 [facility] Lymphocytes Auto (Bld) [#/Vo l]on 07-01-2024 Lymphocytes (Bld) [#/Vol] Lymphocytes [#/volume] in Blood by Automated count 1.2-3.8 [facility] Lymphocytes/100 WBC Auto (Bl d)on 07-01-2024 Lymphocytes/100 WBC (Bld) Lymphocytes/10 0 leukocytes in Blood by Automated count 20.5-60.0 [facility] MCH Auto (RBC) [Entitic mass ]on 07-01-2024 MCH (RBC) [Entitic mass] MCH [Entitic ma ss] by Automated count 25.9-34.0 [facility] MCHC Auto (RBC) [Mass/Vol]on 07-01-2024 MCHC (RBC) [Mass/Vol] MCHC [Mass/volume] by Automated count 29.9-35.2 [facility] MCV Auto (RBC) [Entitic vol] on 07-01-2024 MCV (RBC) [Entitic vol] MCV [Entitic vol ume] by Automated count High 80.0-94.0 [facility] Monocytes Auto (Bld) [#/Vol] on 07-01-2024 Monocytes (Bld) [#/Vol] Automated blood monocyte count 0.3-0.8 [facility] Monocytes/100 WBC Auto (Bld) on 07-01-2024 Monocytes/100 WBC (Bld) Automated monocyte % 1. 7-12.0 [facility] Neutrophils Auto (Bld) [#/Vo l]on 07-01-2024 Neutrophils (Bld) [#/Vol] Neutrophils [#/volume] in Blood by Automated count High 1.4-6.5 [facility] Neutrophils/100 WBC Auto (Bl d)on 07-01-2024 Neutrophils/100 WBC (Bld) Automated neut rophil % 43.0-75.0 [facility] No Panel Informationon 07-01 Eosinophils # (Auto) 0.1 10 3/uL 0.0-0.7 [facility] Immature Granulocyte # (Auto) 0.02 10 3/uL 0.00-0.03 [facility] Platelet mean volume Auto (B ld) [Entitic vol]on 07-01-2024 Platelet mean volume (Bld) [Entitic vol] Platelet mean volume [Entitic volume] in Blood by Automated count Low 9.5-13.5 [facility] Platelets Auto (Bld) [#/Vol] on 07-01-2024 Platelets (Bld) [#/Vol] Platelets [#/vol ume] in Blood by Automated count 150-450 [facility] RBC Auto (Bld) [#/Vol]on RBC (Bld) [#/Vol] Erythrocytes [#/volume] in Blood by Automated count Low 4.70-6.10 [facility] XR RIBS 2 VIEWS LEFT WITH CH [...] Kauffman M.D. 2024-05-17 12:47:15 Normal Not Available XR Ribs Views and Chest PAon 05-17-2024 TITLE OF EXAM: XR - RIBS UNILAT [...] Electronically Signed Tereso Kauffman M.D. 2024-05-17 12:47:15 IMAGING Elizabeth Kauffman MD - 05/17/2024 TITLE OF EXAM: XR - RIBS UNILAT [...] Electronically Signed Tereso Kauffman M.D. 2024-05-17 12:47:15 [facility] Radiology Study observation (narrative) [facility] XR Ribs Views and Chest PAOr dered By: Elizabeth Kauffman on 05-17-2024 [facility] Work Phone: Hemoglobin [Mass/volume] in Bloodon 03-11-2024 Hemoglobin (Bld) [Mass/Vol] 13.7 g/dL Low 14.0-18. 0 [facility] QuantiFERON TB Goldon 2023 QFTB Criteria Normal . [facility] Comment on above: Result [...] TB Ag Value 0.02 Normal . [facility] Comment on above: Performed By: #### Q UANT TB ####[facility] , Quant TB Gold Plus Negative Normal Negative [facility] Comment on above: Result [...] interferon gamma. Chemiluminescence immunoassay methodology Performed at: [employer] [id number] Engineering Technologist: Krunal Nichols PhD, Phone: [phone] PERFORMED BY: [place] [id number] PATHOLOGIST SURGICAL TERRITORY MANAGER ADELFO RAMIREZ M.D. Performed By: #### Q UANT TB ####[facility] , Quant TB2 Ag Value 0.02 Normal . [facility] Comment on above: Performed By: #### Q UANT TB ####[facility] , Quantiferon Nil Value 0.02 Normal . [facility] Comment on above: Performed By: #### Q UANT TB ####[facility] , Quantiferon TB Mitogen >10.00 Normal . [facility] Comment on above: Performed By: #### Q UANT TB ####[facility] , Glucose mean value [Mass/vol ume] in Blood Estimated from glycated hemoglobinon 12-29-2023 Average glucose Estimated from glycated hemoglobin (Bld) [Mass/Vol] 134 mg/dL [facility] - Hematology and Cell countson 12-29-2023 HbA1c (Bld) [Mass fraction] 6.3 % 4.5-6.2 [facility] Comment on above: ADA RECOMMENDED LIMI T 4.0 - 6.0ADA THERAPEUTIC TARGET < 7.0ACTION SUGGESTED> 7.0 XR knee BI 2Von 12-09-2023 XR knee BI 2V [facility] [place] [address] XRay Report Signed Patient: Mariano Gutierrez MR#: [id number] : 1950 Acct:[id number] Age/Sex: 73 / M ADM Date: 12/09/23 Loc: ICXD Room: Type: [facility] Attending Dr: Carlos Guzmán MD Copies to: Carlos Guzmán MD Ordering Provider: Carlos Guzmán MD Date of Service: 12/09/23 XR/XR hand BI 2V: HAND PAIN ([id number]) XR/XR knee BI 2V: KNEE PAIN 2 [...] Gregory Schmidt M.D.12/09/2023 4:00 PM Dictation Location: [place] [address] Transcribed By: [facility] 12/09/23 1600 Dictated By: Gregory Schmidt DO 12/09/23 1556 Signed By: 12/09/23 1600 Normal [facility] VANESSA Antinuclear Antibodieson 11-24-2023 Antinuclear Abs, IFA Positive Critically abnormal . [facility] Comment on above: Result Comment: Nega tive <1:80 Borderline 1:80 Positive >1:80 Performed By: #### K APPA, ANCA PROF, C4, CH50, HBSAB, HBCAB, C3, HCV RX PCR, HBSAG, VANESSA ####[facility] , Homogeneous Pattern 1:640 High . [facility] Comment on above: Result Comment: ICAP nomenclature: AC-1 Performed By: #### K APPA, ANCA PROF, C4, CH50, HBSAB, HBCAB, C3, HCV RX PCR, HBSAG, VANESSA ####[facility] , Note 1 Normal . [facility] Comment on above: Result Comment: Prashant huizar Potential Disease Association Homogeneous Systemic Lupus Erythematosus, Drug Induced Systemic Lupus Erythematosus, Chronic Autoimmune hepatitis, Juvenile Idiopathic Arthritis Speckled Sjogren Syndrome, Systemic Lupus Erythematosus, Subacute Cutaneous Lupus, Lupus, Congenital Heart Block, Mixed Connective Tissue Disease, Scleroderma-diffuse, Scleroderma-Autoimmune Myositis Overlap Syndrome, Systemic Lupus Plbfrfsxewgds-Tpsseubettx-Opphrzrlwc Myositis Overlap Syndrome, Systemic Autoimmune Rheumatic Disease, [...] Cytopenias, Linear Scleroderma, Antiphospholipid Syndrome Performed at: [facility] [employer] [id number] Engineering Technologist: Krunal Nichols PhD, Phone: [phone] Performed By: #### K APPA, ANCA PROF, C4, CH50, HBSAB, HBCAB, C3, HCV RX PCR, HBSAG, VANESSA ####[facility] , ANCA Profile (ANCA+MPO+PR3)o n 11-24-2023 Antimyeloperoxidase (MPO) Abs 1.8 High 0.0-0.9 [facility] Comment on above: Performed By: #### K APPA, ANCA PROF, C4, CH50, HBSAB, HBCAB, C3, HCV RX PCR, HBSAG, VANESSA ####[facility] , Atypical pANCA <1:20 Normal Neg:<1:20 [facility] Comment on above: Result Comment: The atypical pANCA pattern has been observed in a significant percentage of patients with ulcerative colitis, primary sclerosing cholangitis and autoimmune hepatitis. Performed at: [address] [id number] Engineering Technologist: Blanca Olmedo MD, Phone: [phone] Performed at: [address] [id number] Engineering Technologist: Krunal Nichols PhD, Phone: [phone] Performed By: #### K APPA, ANCA PROF, C4, CH50, HBSAB, HBCAB, C3, HCV RX PCR, HBSAG, VANESSA ####[facility] , Cytoplasmic (C-ANCA) <1:20 Normal Neg:<1:20 [facility] Comment on above: Performed By: #### K APPA, ANCA PROF, C4, CH50, HBSAB, HBCAB, C3, HCV RX PCR, HBSAG, VANESSA ####[facility] , Perinuclear (P-ANCA) <1:20 Normal Neg:<1:20 [facility] Comment on above: Result Comment: The presence of positive fluorescence exhibiting P-ANCA or C-ANCA patterns alone is not specific for the diagnosis of Staci's Granulomatosis (WG) or microscopic polyangiitis. Decisions about treatment should not be based solely on ANCA IFA results. The International ANCA Group Consensus recommends follow up testing of positive sera with both NV- 3 and MPO-ANCA enzyme immunoassays. As many as 5% serum samples are positive only by EIA. Ref. AM J Clin Pathol 1999;111:507-513. Performed By: #### K APPA, ANCA PROF, C4, CH50, HBSAB, HBCAB, C3, HCV RX PCR, HBSAG, VANESSA ####[facility] , Proteinase 3 (PR3) Antibodies <0.2 Normal 0.0-0.9 [facility] Comment on above: Result Comment: PERF ORMED BY: [address] [place] [address] PATHOLOGIST SURGICAL TERRITORY MANAGER ADELFO RAMIREZ M.D. Performed By: #### K APPA, ANCA PROF, C4, CH50, HBSAB, HBCAB, C3, HCV RX PCR, HBSAG, VANESSA ####[facility] , Alanine aminotransferase [En zymatic activity/volume] in Serum or PlasmaOrdered By: Carlos Guzmán on 11-24-2023 ALT [Catalytic activity/Vol] 11 U/L 7-52 [facility] Albumin [Mass/volume] in Ser um or PlasmaOrdered By: Carlos Guzmán on 11-24-2023 Albumin [Mass/Vol] 3.5 g/dL 2.9-4.4 [facility] Albumin [Mass/volume] in Ser um or Plasma by Bromocresol green (BCG) dye binding methoOrdered By: Carlos Guzmán on 11-24-2023 Albumin BCG dye [Mass/Vol] 3.8 g/dL 3.5-5.7 [facility] Albumin/Protein.total in 24 hour Urine by ElectrophoresisOrdered By: Carlos Guzmán on 11-24-2023 Albumin Elph (24H U) [Mass fraction] 50.7 % . [facility] Alkaline phosphatase [Enzyma tic activity/volume] in Serum or PlasmaOrdered By: Carlos Guzmán on 11-24-2023 ALP [Catalytic activity/Vol] 98 U/L 34-104 [facility] Aspartate aminotransferase [ Enzymatic activity/volume] in Serum or PlasmaOrdered By: Carlos Guzmán on 11-24-2023 AST [Catalytic activity/Vol] 15 U/L 13-39 [facility] Automated erythrocytes count in urine sediment (number/area)Ordered By: Carlos Guzmán on 11-24-2023 RBC Auto (Urine sed) [#/Area] None seen [HPF] 0-4 [facility] Automated leukocytes count i n urine sediment (number/area)Ordered By: Carlos Guzmán on 11-24-2023 WBC Auto (Urine sed) [#/Area] 0-1 [HPF] 0-4 [facility] Basophils Auto (Bld) [#/Vol] Ordered By: Carlos Guzmán on 11-24-2023 Basophils (Bld) [#/Vol] 0.1 10*3/uL 0.0-0.2 [facility] Basophils/100 WBC Auto (Bld) Ordered By: Carlos Guzmán on 11-24-2023 Basophils/100 WBC (Bld) 1.1 % . [facility] Bilirubin Test strip Ql (U)O rdered By: Carlos Guzmán on 11-24-2023 Bilirubin Ql (U) Negative Negative [facility] Bilirubin.total [Mass/volume ] in Serum or PlasmaOrdered By: Carlos Guzmán on 11-24-2023 Bilirubin [Mass/Vol] 0.6 mg/dL 0.3-1.0 [facility] C reactive protein [Mass/vol ume] in Serum or PlasmaOrdered By: Carlos Guzmán on 11-24-2023 CRP [Mass/Vol] 0.6 mg/dL 0.0-0.5 [facility] C-Reactive Proteinon 024 C-Reactive Protein 0.6 mg/dL High 0.0-0.5 [facility] Comment on above: Result Comment: PERF ORMED BY: [facility] [address] [place] [address] PATHOLOGIST SURGICAL TERRITORY MANAGER ADELFO RAMIREZ M.D. Performed By: #### I FE,URINE, SVETLANA SERUM, UPE RAND, SPE #### [facility] , #### ESR, ADDONUAPLUS, CRP, CBC, CMP #### [facility] [address] Calcium [Mass/volume] in Ser um or PlasmaOrdered By: Carlos Guzmán on 11-24-2023 Calcium [Mass/Vol] 9.4 mg/dL 8.6-10.3 [facility] Carbon dioxide, total [Moles /volume] in Serum or PlasmaOrdered By: Carlos Guzmán on 11-24-2023 CO2 [Moles/Vol] 28.5 mmol/L 21.0-31.0 [facility] Chloride [Moles/volume] in S lucila or PlasmaOrdered By: Carlos Guzmán on 11-24-2023 Chloride [Moles/Vol] 99 mmol/L 98-107 [facility] Color Auto (U)Ordered By: Elvia Guzmán on 11-24-2023 Color (U) Yellow Yellow [facility] Complement C3on 11-24-2023 Complement C3 135 mg/dL Normal 82-167 [facility] Comment on above: Result Comment: Perf ormed at: - [facility] [place] [address] [place], [place] [id number] Engineering Technologist: Krunal Nichols PhD, Phone: [phone] Performed By: #### K APPA, ANCA PROF, C4, CH50, HBSAB, HBCAB, C3, HCV RX PCR, HBSAG, VANESSA ####[facility] , Complement C4on 11-24-2023 Complement C4 10 mg/dL Low 12-38 [facility] Comment on above: Performed By: #### K APPA, ANCA PROF, C4, CH50, HBSAB, HBCAB, C3, HCV RX PCR, HBSAG, VANESSA ####[facility] , Complement Total (CH50)on Complement Total (CH50) 51 Normal >41 [facility] Comment on above: Result [...] determine out of range values. Performed at: [facility] [place] [id number] Engineering Technologist: Krunal Nichols PhD, Phone: [phone] PERFORMED BY: [place] [address] PATHOLOGIST SURGICAL TERRITORY MANAGER ADELFO RAMIREZ M.D. Performed By: #### K APPA, ANCA PROF, C4, CH50, HBSAB, HBCAB, C3, HCV RX PCR, HBSAG, VANESSA ####[facility] , Complete Blood Count Auto Di ffon 11-24-2023 Basophils (Bld) [#/Vol] 0.1 10*3/uL Normal 0.0-0.2 [facility] Comment on above: Performed By: #### I FE,URINE, SVETLANA SERUM, UPE RAND, SPE #### [facility] , #### ESR, ADDONUAPLUS, CRP, CBC, CMP #### [address] Basophils/100 WBC (Bld) 1.1 % Normal . [facility] Comment on above: Performed By: #### I FE,URINE, SVETLANA SERUM, UPE RAND, SPE #### [facility] , #### ESR, ADDONUAPLUS, CRP, CBC, CMP #### [address] Eosinophils (Bld) [#/Vol] 0.2 10*3/uL Normal 0.0-0.45 [facility] Comment on above: Performed By: #### I FE,URINE, SVETLANA SERUM, UPE RAND, SPE #### [facility] , #### ESR, ADDONUAPLUS, CRP, CBC, CMP #### [address] Eosinophils/100 WBC (Bld) 2.0 % Normal . [facility] Comment on above: Performed By: #### I FE,URINE, SVETLANA SERUM, UPE RAND, SPE #### [facility] , #### ESR, ADDONUAPLUS, CRP, CBC, CMP #### [address] Erythrocyte distribution width (RBC) [Ratio] 15.0 % High 12.0-14.8 [facility] Comment on above: Performed By: #### I FE,URINE, SVETLANA SERUM, UPE RAND, SPE #### [facility] , #### ESR, ADDONUAPLUS, CRP, CBC, CMP #### [address] Hematocrit (Bld) [Volume fraction] 38.8 % Normal 38.8-50.0 [facility] Comment on above: Performed By: #### I FE,URINE, SVETLANA SERUM, UPE RAND, SPE #### [facility] , #### ESR, ADDONUAPLUS, CRP, CBC, CMP #### [address] Hemoglobin (Bld) [Mass/Vol] 13.3 g/dL Normal 13.0-17. 0 [facility] Comment on above: Performed By: #### I FE,URINE, SVETLANA SERUM, UPE RAND, SPE #### [facility] , #### ESR, ADDONUAPLUS, CRP, CBC, CMP #### [address] Lymphocytes (Bld) [#/Vol] 2.5 10*3/uL Normal 1.00-4.8 [facility] Comment on above: Performed By: #### I FE,URINE, SVETLANA SERUM, UPE RAND, SPE #### [facility] , #### ESR, ADDONUAPLUS, CRP, CBC, CMP #### [address] Lymphocytes/100 WBC (Bld) 28.6 % Normal . [facility] Comment on above: Performed By: #### I FE,URINE, SVETLANA SERUM, UPE RAND, SPE #### [facility] , #### ESR, ADDONUAPLUS, CRP, CBC, CMP #### [address] MCH (RBC) [Entitic mass] 30.0 pg Normal 27.5-35.2 [facility] Comment on above: Performed By: #### I FE,URINE, SVETLANA SERUM, UPE RAND, SPE #### [facility] , #### ESR, ADDONUAPLUS, CRP, CBC, CMP #### [address] MCV (RBC) [Entitic vol] 87.1 fL Normal 83.5-101 [facility] Comment on above: Performed By: #### I FE,URINE, SVETLANA SERUM, UPE RAND, SPE #### [facility] , #### ESR, ADDONUAPLUS, CRP, CBC, CMP #### [address] Mean Corpuscular HGB Conc 34.4 g/dL Normal 32.5-35.6 [facility] Comment on above: Performed By: #### I FE,URINE, SVETLANA SERUM, UPE RAND, SPE #### [facility] , #### ESR, ADDONUAPLUS, CRP, CBC, CMP #### [address] Monocytes (Bld) [#/Vol] 0.7 10*3/uL Normal 0.0-0.8 [facility] Comment on above: Performed By: #### I FE,URINE, SVETLANA SERUM, UPE RAND, SPE #### [facility] , #### ESR, ADDONUAPLUS, CRP, CBC, CMP #### [place] [address] [place] Monocytes/100 WBC (Bld) 7.8 % Normal . [facility] Comment on above: Performed By: #### I FE,URINE, SVETLANA SERUM, UPE RAND, SPE #### [facility] , #### ESR, ADDONUAPLUS, CRP, CBC, CMP #### [place] [address] [place] Neutrophils (Bld) [#/Vol] 5.4 10*3/uL Normal 1.8-7.7 [facility] Comment on above: Performed By: #### I FE,URINE, SVETLANA SERUM, UPE RAND, SPE #### [facility] , #### ESR, ADDONUAPLUS, CRP, CBC, CMP #### [place] [address] [place] Neutrophils/100 WBC (Bld) 60.5 % Normal . [facility] Comment on above: Performed By: #### I FE,URINE, SVETLANA SERUM, UPE RAND, SPE #### [facility] , #### ESR, ADDONUAPLUS, CRP, CBC, CMP #### [place] [address] [place] NRBC% 0.0 /100{WBC} Normal 0-0.5 [facility] Comment on above: Performed By: #### I FE,URINE, SVETLANA SERUM, UPE RAND, SPE #### [facility] , #### ESR, ADDONUAPLUS, CRP, CBC, CMP #### [address] Platelet mean volume (Bld) [Entitic vol] 7.9 fL Normal 6.6-10.1 [facility] Comment on above: Performed By: #### I FE,URINE, SVETLANA SERUM, UPE RAND, SPE #### [facility] , #### ESR, ADDONUAPLUS, CRP, CBC, CMP #### [address] Platelets (Bld) [#/Vol] 369 10*3/uL Normal 150-450 [facility] Comment on above: Performed By: #### I FE,URINE, SVETLANA SERUM, UPE RAND, SPE #### [facility] , #### ESR, ADDONUAPLUS, CRP, CBC, CMP #### [address] RBC (Bld) [#/Vol] 4.45 10*6/uL Normal 3.90-5.60 [facility] Comment on above: Performed By: #### I FE,URINE, SVETLANA SERUM, UPE RAND, SPE #### [facility] , #### ESR, ADDONUAPLUS, CRP, CBC, CMP #### [address] WBC (Bld) [#/Vol] 8.9 10*3/uL Normal 4.1-10.5 [facility] Comment on above: Performed By: #### I FE,URINE, SVETLANA SERUM, UPE RAND, SPE #### [facility] , #### ESR, ADDONUAPLUS, CRP, CBC, CMP #### [address] Comprehensive Metabolic Pane jonathon 11-24-2023 Albumin [Mass/Vol] 3.8 g/dL Normal 3.5-5.7 [facility] Comment on above: Performed By: #### I FE,URINE, SVETLANA SERUM, UPE RAND, SPE #### [facility] , #### ESR, ADDONUAPLUS, CRP, CBC, CMP #### [address] Albumin/Globulin [Mass ratio] 0.9 {ratio} Normal [facility] Comment on above: Performed By: #### I FE,URINE, SVETLANA SERUM, UPE RAND, SPE #### [facility] , #### ESR, ADDONUAPLUS, CRP, CBC, CMP #### [address] ALP [Catalytic activity/Vol] 98 U/L Normal 34-104 [facility] Comment on above: Performed By: #### I FE,URINE, SVETLANA SERUM, UPE RAND, SPE #### [facility] , #### ESR, ADDONUAPLUS, CRP, CBC, CMP #### [address] ALT [Catalytic activity/Vol] 11 U/L Normal 7-52 [facility] Comment on above: Performed By: #### I FE,URINE, SVETLANA SERUM, UPE RAND, SPE #### [facility] , #### ESR, ADDONUAPLUS, CRP, CBC, CMP #### [address] Anion gap [Moles/Vol] 14.8 mmol/L Normal 6.0-15.0 [facility] Comment on above: Performed By: #### I FE,URINE, SVETLANA SERUM, UPE RAND, SPE #### [facility] , #### ESR, ADDONUAPLUS, CRP, CBC, CMP #### [address] AST [Catalytic activity/Vol] 15 U/L Normal 13-39 [facility] Comment on above: Performed By: #### I FE,URINE, SVETLANA SERUM, UPE RAND, SPE #### [facility] , #### ESR, ADDONUAPLUS, CRP, CBC, CMP #### [address] Bilirubin [Mass/Vol] 0.6 mg/dL Normal 0.3-1.0 [facility] Comment on above: Performed By: #### I FE,URINE, SVETLANA SERUM, UPE RAND, SPE #### [facility] , #### ESR, ADDONUAPLUS, CRP, CBC, CMP #### [address] Calcium [Mass/Vol] 9.4 mg/dL Normal 8.6-10.3 [facility] Comment on above: Performed By: #### I FE,URINE, SVETLANA SERUM, UPE RAND, SPE #### [facility] , #### ESR, ADDONUAPLUS, CRP, CBC, CMP #### [address] Chloride [Moles/Vol] 99 mmol/L Normal 98-107 [facility] Comment on above: Performed By: #### I FE,URINE, SVETLANA SERUM, UPE RAND, SPE #### [facility] , #### ESR, ADDONUAPLUS, CRP, CBC, CMP #### [place] [address] [place] CO2 [Moles/Vol] 28.5 mmol/L Normal 21.0-31.0 [facility] Comment on above: Performed By: #### I FE,URINE, SVETLANA SERUM, UPE RAND, SPE #### [facility] , #### ESR, ADDONUAPLUS, CRP, CBC, CMP #### [place] [address] Creatinine [Mass/Vol] 0.73 mg/dL Normal 0.70-1.30 [facility] Comment on above: Performed By: #### I FE,URINE, SVETLANA SERUM, UPE RAND, SPE #### [facility] , #### ESR, ADDONUAPLUS, CRP, CBC, CMP #### [address] GFR/1.73 sq M.predicted MDRD (S/P/Bld) [Vol rate/Area] mL/min/{1.73_m2} Normal [facility] Comment on above: Performed By: #### I FE,URINE, SVETLANA SERUM, UPE RAND, SPE #### [facility] , #### ESR, ADDONUAPLUS, CRP, CBC, CMP #### [address] Globulin (S) [Mass/Vol] 4.4 g/dL High 2.2-3.9 [facility] Comment on above: Performed By: #### I FE,URINE, SVETLANA SERUM, UPE RAND, SPE #### [facility] , #### ESR, ADDONUAPLUS, CRP, CBC, CMP #### [address] Glucose [Mass/Vol] 105 mg/dL High 70-100 [facility] Comment on above: Result Comment: [facility] Glucose Reference Range is dependent on time and content of last meal. Glucose of more than 200 mg/dL in a nonstressed, ambulatory subject supports the diagnosis of Diabetes Mellitus. ADA recommended reference range Performed By: #### I FE,URINE, SVETLANA SERUM, UPE RAND, SPE #### [facility] , #### ESR, ADDONUAPLUS, CRP, CBC, CMP #### [address] Potassium [Moles/Vol] 4.3 mmol/L Normal 3.5-5.1 [facility] Comment on above: Performed By: #### I FE,URINE, SVETLANA SERUM, UPE RAND, SPE #### [facility] , #### ESR, ADDONUAPLUS, CRP, CBC, CMP #### [facility] [address] Protein [Mass/Vol] 8.2 g/dL Normal 6.4-8.9 [facility] Comment on above: Performed By: #### I FE,URINE, SVETLANA SERUM, UPE RAND, SPE #### [facility] , #### ESR, ADDONUAPLUS, CRP, CBC, CMP #### [facility] [address] [place] [address] Sodium [Moles/Vol] 138 mmol/L Normal 136-145 [facility] Comment on above: Performed By: #### I FE,URINE, SVETLANA SERUM, UPE RAND, SPE #### [facility] , #### ESR, ADDONUAPLUS, CRP, CBC, CMP #### [facility] [address] [place] [address] Urea nitrogen [Mass/Vol] 15 mg/dL Normal 7-25 [facility] Comment on above: Performed By: #### I FE,URINE, SVETLANA SERUM, UPE RAND, SPE #### [facility] , #### ESR, ADDONUAPLUS, CRP, CBC, CMP #### [facility] [address] [place] [address] Creatinine [Mass/volume] in Serum or PlasmaOrdered By: Carlos Guzmán on 11-24-2023 Creatinine [Mass/Vol] 0.73 mg/dL 0.70-1.30 [facility] Dipstick and Microscopicon 0 11-24-2023 Appearance (U) Clear Normal Clear [facility] Comment on above: Order Comment: Name Collection Type:: Clean-Voided Midstream Performed By: #### I FE,URINE, SVETLANA SERUM, UPE RAND, SPE #### [facility] , #### ESR, ADDONUAPLUS, CRP, CBC, CMP #### [address] Bacteria,Urine None Seen Normal None Seen [facility] Comment on above: Order Comment: Name Collection Type:: Clean-Voided Midstream Performed By: #### I FE,URINE, SVETLANA SERUM, UPE RAND, SPE #### [facility] , #### ESR, ADDONUAPLUS, CRP, CBC, CMP #### [address] Bilirubin,Urine Negative Normal Negative [facility] Comment on above: Order Comment: Name Collection Type:: Clean-Voided Midstream Performed By: #### I FE,URINE, SVETLANA SERUM, UPE RAND, SPE #### [facility] , #### ESR, ADDONUAPLUS, CRP, CBC, CMP #### [address] Color (U) Yellow Normal Yellow [facility] Comment on above: Order Comment: Name Collection Type:: Clean-Voided Midstream Performed By: #### I FE,URINE, SVETLANA SERUM, UPE RAND, SPE #### [facility] , #### ESR, ADDONUAPLUS, CRP, CBC, CMP #### [address] Glucose Ql (U) >=1000 High Normal [facility] Comment on above: Order Comment: Name Collection Type:: Clean-Voided Midstream Performed By: #### I FE,URINE, SVETLANA SERUM, UPE RAND, SPE #### [facility] , #### ESR, ADDONUAPLUS, CRP, CBC, CMP #### [address] Hyaline Casts,Urine 0-8 Normal 0-8 [facility] Comment on above: Order Comment: Name Collection Type:: Clean-Voided Midstream Result Comment: PERF ORMED BY: [address] [address] PATHOLOGIST SURGICAL TERRITORY MANAGER ADELFO RAMIREZ M.D. Performed By: #### I FE,URINE, SVETLANA SERUM, UPE RAND, SPE #### [facility] , #### ESR, ADDONUAPLUS, CRP, CBC, CMP #### [address] Ketones Ql (U) Trace High Negative [facility] Comment on above: Order Comment: Name Collection Type:: Clean-Voided Midstream Performed By: #### I FE,URINE, SVETLANA SERUM, UPE RAND, SPE #### [facility] , #### ESR, ADDONUAPLUS, CRP, CBC, CMP #### [address] Leukocyte esterase Test strip Ql (U) Negative Normal Negative [facility] Comment on above: Order Comment: Name Collection Type:: Clean-Voided Midstream Performed By: #### I FE,URINE, SVETLANA SERUM, UPE RAND, SPE #### [facility] , #### ESR, ADDONUAPLUS, CRP, CBC, CMP #### [address] Nitrite,Urine Negative Normal Negative [facility] Comment on above: Order Comment: Name Collection Type:: Clean-Voided Midstream Performed By: #### I FE,URINE, SVETLANA SERUM, UPE RAND, SPE #### [facility] , #### ESR, ADDONUAPLUS, CRP, CBC, CMP #### [address] Occult Blood,Urine Negative Normal Negative [facility] Comment on above: Order Comment: Name Collection Type:: Clean-Voided Midstream Performed By: #### I FE,URINE, SVETLANA SERUM, UPE RAND, SPE #### [facility] , #### ESR, ADDONUAPLUS, CRP, CBC, CMP #### [place] [address] pH (U) 5.0 [pH] Normal 5.0-9.0 [facility] Comment on above: Order Comment: Name Collection Type:: Clean-Voided Midstream Performed By: #### I FE,URINE, SVETLANA SERUM, UPE RAND, SPE #### [facility] , #### ESR, ADDONUAPLUS, CRP, CBC, CMP #### [address] Protein (U) [Mass/Vol] 30 mg/dL High Negative Th e [facility] Comment on above: Order Comment: Name Collection Type:: Clean-Voided Midstream Performed By: #### I FE,URINE, SVETLANA SERUM, UPE RAND, SPE #### [facility] , #### ESR, ADDONUAPLUS, CRP, CBC, CMP #### [address] RBC,Urine None Seen Normal 0-4 [facility] Comment on above: Order Comment: Name Collection Type:: Clean-Voided Midstream Performed By: #### I FE,URINE, SVETLANA SERUM, UPE RAND, SPE #### [facility] , #### ESR, ADDONUAPLUS, CRP, CBC, CMP #### [address] Specificy [place],Urine 1.039 High 1.00 1-1.03 0 [facility] Comment on above: Order Comment: Name Collection Type:: Clean-Voided Midstream Performed By: #### I FE,URINE, SVETLANA SERUM, UPE RAND, SPE #### [facility] , #### ESR, ADDONUAPLUS, CRP, CBC, CMP #### [address] Squamous Epithelial Cell,Urine None Seen Normal 0-2 [facility] Comment on above: Order Comment: Name Collection Type:: Clean-Voided Midstream Performed By: #### I FE,URINE, SVETLANA SERUM, UPE RAND, SPE #### [facility] , #### ESR, ADDONUAPLUS, CRP, CBC, CMP #### [facility] [address] [place] [address] Urobilinogen,Urine Normal Normal Normal [facility] Comment on above: Order Comment: Name Collection Type:: Clean-Voided Midstream Performed By: #### I FE,URINE, SVETLANA SERUM, UPE RAND, SPE #### [facility] , #### ESR, ADDONUAPLUS, CRP, CBC, CMP #### [facility] [address] [place] [address] WBC LM.HPF (Urine sed) [#/Area] 0 /[HPF] Normal 0-4 [facility] Comment on above: Order Comment: Name Collection Type:: Clean-Voided Midstream Performed By: #### I FE,URINE, SVETLANA SERUM, UPE RAND, SPE #### [facility] , #### ESR, ADDONUAPLUS, CRP, CBC, CMP #### [address] Eosinophils Auto (Bld) [#/Vo l]Ordered By: Carlos Guzmán on 11-24-2023 Eosinophils (Bld) [#/Vol] 0.2 10*3/uL 0.0-0.45 [facility] Eosinophils/100 WBC Auto (Bl d)Ordered By: Carlos Guzmán on 11-24-2023 Eosinophils/100 WBC (Bld) 2.0 % . [facility] Erythrocyte Sedimentation Ra bibiana 11-24-2023 ESR (Bld) [Velocity] 72 mm/h High 0-19 [facility] Comment on above: Result Comment: PERF ORMED BY: [place] [address] PATHOLOGIST SURGICAL TERRITORY MANAGER ADELFO RAMIREZ M.D. Performed By: #### I FE,URINE, SVETLANA SERUM, UPE RAND, SPE #### [facility] , #### ESR, ADDONUAPLUS, CRP, CBC, CMP #### [facility] [address] Erythrocyte distribution wid th Auto (RBC) [Ratio]Ordered By: Carlos Guzmán on 11-24-2023 Erythrocyte distribution width (RBC) [Ratio] 15.0 % 12.0-14.8 [facility] Erythrocyte sedimentation ra te by Photometric methodOrdered By: Carlos Guzmán on 11-24-2023 ESR Photometric method (Bld) [Velocity] 72 mm/hr 0-19 [facility] Free K+L LT Chains, Qn, Son 11-24-2023 Free [place] Light Chains, S 127.8 mg/L High 3.3-19.4 [facility] Comment on above: Performed By: #### K APPA, ANCA PROF, C4, CH50, HBSAB, HBCAB, C3, HCV RX PCR, HBSAG, VANESSA ####[facility] , Free Lambda Light Chains, S 171.2 mg/L High 5.7-26.3 [facility] Comment on above: Performed By: #### K APPA, ANCA PROF, C4, CH50, HBSAB, HBCAB, C3, HCV RX PCR, HBSAG, VANESSA ####[facility] , [place]/Lambda Ratio, S 0.75 Normal 0.26-1.65 [facility] Comment on above: Result Comment: Perf ormed at: - [facility] [address] [id number] Engineering Technologist: Krunal Nichols PhD, Phone: [phone] Performed By: #### K APPA, ANCA PROF, C4, CH50, HBSAB, HBCAB, C3, HCV RX PCR, HBSAG, VANESSA ####[facility] , Gamma globulin/Protein.total in 24 hour Urine by ElectrophoresisOrdered By: Carlos Guzmán on 11-24-2023 Gamma globulin Elph (24H U) [Mass fraction] 20.1 % . [facility] Glucose [Mass/volume] in Ser um or PlasmaOrdered By: Carlos Guzmán on 11-24-2023 Glucose [Mass/Vol] 105 mg/dL 70-100 [facility] Comment on above: ADA recommended refe rence rangeRandom Glucose Reference Range is dependent on time and content of last meal. Glucose of more than 200 mg/dL in a nonstressed, ambulatory subject supports the diagnosis of Diabetes Mellitus. Hematocrit Auto (Bld) [Volum e fraction]Ordered By: Carlos Guzmán on 11-24-2023 Hematocrit (Bld) [Volume fraction] 38.8 % 38.8-50.0 [facility] Hemoglobin [Mass/volume] in BloodOrdered By: Carlos Guzmán on 11-24-2023 Hemoglobin (Bld) [Mass/Vol] 13.3 g/dL 13.0-17. 0 [facility] Hep C Ab wRfx to Qnt PCRon 0 11-24-2023 Hepatitis C Virus Antibody Non-Reactive Normal N on Reactive [facility] Comment on above: Performed By: #### K APPA, ANCA PROF, C4, CH50, HBSAB, HBCAB, C3, HCV RX PCR, HBSAG, VANESSA ####[facility] , Interpretation Hepatitis C Normal . [facility] Comment on above: Result [...] B Core Antibody Negative Normal Negative [facility] Comment on above: Result Comment: Perf ormed at: - [facility] [address] [id number] Engineering Technologist: Krunal Nichols PhD, Phone: [phone] Performed By: #### K APPA, ANCA PROF, C4, CH50, HBSAB, HBCAB, C3, HCV RX PCR, HBSAG, VANESSA ####[facility] , Hepatitis B Surface Antibody on 11-24-2023 Hepatitis B Surface Antibody Non-Reactive Normal . [facility] Comment on above: Result Comment: Non Reactive: Inconsistent with immunity, less than 10 mIU/mL Reactive: Consistent with immunity, greater than 9.9 mIU/mL Performed By: #### K APPA, ANCA PROF, C4, CH50, HBSAB, HBCAB, C3, HCV RX PCR, HBSAG, VANESSA ####[facility] , Hepatitis B Surface Antigeno n 11-24-2023 HBsAg Screen Negative Normal Negative [facility] Comment on above: Result Comment: PERF ORMED BY: [facility] [address] [place] [address] PATHOLOGIST SURGICAL TERRITORY MANAGER ADELFO RAMIREZ M.D. Performed By: #### K APPA, ANCA PROF, C4, CH50, HBSAB, HBCAB, C3, HCV RX PCR, HBSAG, VANESSA ####[facility] , Hepatitis B virus surface Ab [Presence] in SerumOrdered By: Carlos Guzmán on 11-24-2023 HBV surface Ab Ql (S) Non-Reactive . [facility] Comment on above: Non Reactive: Incons istent with immunity, less than 10 mIU/mL Reactive: Consistent with immunity, greater than 9.9 mIU/mL Hepatitis B virus surface Ag [Presence] in Serum or Plasma by ImmunoassayOrdered By: Carlos Guzmán on 11-24-2023 HBV surface Ag IA Ql Negative Negative [facility] Hepatitis C virus IgG Ab [Pr esence] in Serum or Plasma by ImmunoassayOrdered By: Carlos Guzmán on 11-24-2023 HCV IgG IA Ql Non-Reactive Non Reactive [facility] IgA [Mass/volume] in Serum o r PlasmaOrdered By: Carlos Guzmán on 11-24-2023 IgA [Mass/Vol] 399 mg/dL 61-437 [facility] IgG [Mass/volume] in Serum o r PlasmaOrdered By: Carlos Guzmán on 11-24-2023 IgG [Mass/Vol] 2589 mg/dL 603-1613 [facility] IgM [Mass/volume] in Serum o r PlasmaOrdered By: Carlos Guzmán on 11-24-2023 IgM [Mass/Vol] 217 mg/dL 15-143 [facility] Comment on above: Performed at: [facility] [address] [id number] Director: Krunal Nichols PhD, Phone: [phone] Immunofixation for UrineOrde red By: Carlos Guzmán on 11-24-2023 Interpretation Immunofixation (U) [Interp] Comment: . [facility] Comment on above: Presence of monoclon al protein is unclear at this time. Suggestrepeat in 3 to 6 months if clinically indicated.Performed at: [employer] [facility] [address] [id number] Director: Krunal Nichols PhD, Phone: [phone] Immunofixation, (SVETLANA), Urine on 11-24-2023 Immunofixation, (SVETLANA), Urine Comment: Normal . [facility] Comment on above: Result Comment: Pres ence of monoclonal protein is unclear at this time. Suggest repeat in 3 to 6 months if clinically indicated. Performed at: [facility] [place] [id number] [place], [place] [id number] Engineering Technologist: Krunal Nichols PhD, Phone: [phone] Performed By: #### I FE,URINE, SVETLANA SERUM, UPE RAND, SPE ####[facility] ,#### ESR, ADDONUAPLUS, CRP, CBC, CMP ####[facility] [address] [place] [address] [place] Immunofixation,Serumon 11-23 Immunofixation, Serum Normal . [facility] Comment on above: Result Comment: No m onoclonality detected. Performed By: #### I FE,URINE, SVETLANA SERUM, UPE RAND, SPE #### [facility] , #### ESR, ADDONUAPLUS, CRP, CBC, CMP #### [facility] [address] Immunoglobulin A, Serum 399 mg/dL Normal 61-437 [facility] Comment on above: Performed By: #### I FE,URINE, SVETLANA SERUM, UPE RAND, SPE #### [facility] , #### ESR, ADDONUAPLUS, CRP, CBC, CMP #### [facility] [address] Immunoglobulin G 2589 mg/dL High 603-1613 [facility] Comment on above: Performed By: #### I FE,URINE, SVETLANA SERUM, UPE RAND, SPE #### [facility] , #### ESR, ADDONUAPLUS, CRP, CBC, CMP #### [facility] [address] Immunoglobulin M, Serum 217 mg/dL High 15-143 [facility] Comment on above: Result Comment: Perf ormed at: [facility] [place] [address] [place], [place] [id number] Engineering Technologist: Krunal Nichols PhD, Phone: [phone] Performed By: #### I FE,URINE, SVETLANA SERUM, UPE RAND, SPE #### [facility] , #### ESR, ADDONUAPLUS, CRP, CBC, CMP #### [facility] [address] Immunoglobulin light chains. kappa.free [Mass/volume] in SerumOrdered By: Carlos Guzmán on 11-24-2023 Immunoglobulin light chains.kappa.free (S) [Mass/Vol] 127.8 mg/L 3.3-19.4 [facility] Immunoglobulin light chains. kappa.free/Immunoglobulin light chains.lambda.free [MassOrdered By: Carlos Guzmán on 11-24-2023 Immunoglobulin light chains.kappa.free/Immunoglo bulin light chains.lambda.free (S) [Mass ratio] 0.75 0.26-1.65 [facility] Comment on above: Performed at: [facility] [id number] [place], [place] [id number] Director: Krunal Nichols PhD, Phone: [phone] Immunoglobulin light chains. lambda.free [Mass/volume] in Serum or PlasmaOrdered By: Carlos Guzmán on 11-24-2023 Immunoglobulin light chains.lambda.free [Mass/Vol] 171.2 mg/L 5.7-26.3 [facility] Ketones Auto test strip (U) [Mass/Vol]Ordered By: Carlos Guzmán on 11-24-2023 Ketones (U) [Mass/Vol] Trace Negative [facility] - UrinalysisOrder ed By: Carlos Guzmán on 11-24-2023 Hyaline casts LM Ql (Urine sed) 0-8 [LPF] 0-8 [facility] Leukocytes [#/volume] correc yuniel for nucleated erythrocytes in Blood by Automated counOrdered By: Carlos Guzmán on 11-24-2023 WBC corrected for nucl RBC Auto (Bld) [#/Vol] 8.9 10*3/uL 4.1-10.5 [facility] Lymphocytes Auto (Bld) [#/Vo l]Ordered By: Carlos Guzmán on 11-24-2023 Lymphocytes (Bld) [#/Vol] 2.5 10*3/uL 1.00-4.8 [facility] Lymphocytes/100 WBC Auto (Bl d)Ordered By: Carlos Guzmán on 11-24-2023 Lymphocytes/100 WBC (Bld) 28.6 % . [facility] MCH Auto (RBC) [Entitic mass ]Ordered By: Carlos Guzmán on 11-24-2023 MCH (RBC) [Entitic mass] 30.0 pg 27.5-35.2 [facility] MCHC Auto (RBC) [Mass/Vol]Or dered By: Carlos Guzmán on 11-24-2023 MCHC (RBC) [Mass/Vol] 34.4 g/dL 32.5-35.6 [facility] MCV Auto (RBC) [Entitic vol] Ordered By: Carlos Guzmán on 11-24-2023 MCV (RBC) [Entitic vol] 87.1 fL 83.5-101 [facility] Monocytes Auto (Bld) [#/Vol] Ordered By: Carlos Guzmán on 11-24-2023 Monocytes (Bld) [#/Vol] 0.7 10*3/uL 0.0-0.8 [facility] Monocytes/100 WBC Auto (Bld) Ordered By: Carlos Guzmán on 11-24-2023 Monocytes/100 WBC (Bld) 7.8 % . [facility] Myeloperoxidase Ab [Units/vo lume] in Serum by ImmunoassayOrdered By: Carlos Guzmán on 11-24-2023 Myeloperoxidase Ab IA Qn (S) 1.8 units 0.0-0.9 [facility] Neutrophil cytoplasmic Ab.pe rinuclear.atypical [Titer] in Serum by ImmunofluorescenceOrdered By: Carlos Guzmán on 11-24-2023 Neutrophil cytoplasmic Ab.perinuclear.atypical IF (S) [Titer] <1:20 titer Neg:<1:20 [facility] Comment on above: The atypical pANCA p attern has been observed in asignificant percentage of patients with ulcerative colitis,primary sclerosing cholangitis and autoimmune hepatitis.Performed at: [facility] [id number] Director: Blanca Olmedo MD, Phone: [phone] at: [facility] [employer] [id number] Director: Krunal Nichols PhD, Phone: [phone] Neutrophils Auto (Bld) [#/Vo l]Ordered By: Carlos Guzmán on 11-24-2023 Neutrophils (Bld) [#/Vol] 5.4 10*3/uL 1.8-7.7 [facility] Neutrophils/100 WBC Auto (Bl d)Ordered By: Carlos Guzmán on 11-24-2023 Neutrophils/100 WBC (Bld) 60.5 % . [facility] Nitrite Test strip Ql (U)Ord ered By: Carlos Guzmán on 11-24-2023 Nitrite Ql (U) Negative Negative [facility] No Panel InformationOrdered By: Carlos Guzmán on 11-24-2023 Anti-Nuclear Antibody Comment 2 See comment . [facility] Comment on above: Pattern Potential Di sease Association Homogeneous Systemic Lupus Erythematosus, Drug Induced Systemic Lupus Erythematosus, Chronic Autoimmune hepatitis, Juvenile Idiopathic Arthritis Speckled Sjogren Syndrome, Systemic Lupus Erythematosus, Subacute Cutaneous Lupus, Lupus, Congenital Heart Block, Mixed Connective Tissue Disease, Scleroderma-diffuse, Scleroderma-Autoimmune Myositis Overlap Syndrome, Systemic Lupus Zlikujjvtjeyy-Qeftqudgcac-Fpbrxipuxr Myositis Overlap Syndrome, Systemic Autoimmune Rheumatic Disease, [...] Cytopenias, Linear Scleroderma, Antiphospholipid Syndrome Performed at: [facility] [id number] [place], [place] [id number] Director: Krunal Nichols PhD, Phone: [phone] Estimated GFR (CKD-EPI) > 60.0 mL/Min [facility] Hepatitis B Core Total Antibody Negative Negative [facility] Comment on above: Performed at: [facility] [facility] [address] [id number] Director: Krunal Nichols PhD, Phone: [phone] Hepatitis C Interpretation See comment . [facility] Comment on above: Not infected with HC V unless early or acute infection issuspected (which may be delayed in an immunocompromisedindividual), or other evidence exists to indicate HCVinfection. Perinuclear ANCA (p-ANCA) Antibody <1:20 titer Neg:<1:20 [facility] Comment on above: The presence of posi tive fluorescence exhibiting P-ANCA orC-ANCA patterns alone is not specific for the diagnosis ofWegener's Granulomatosis (WG) or microscopic polyangiitis.Decisions about treatment should not be based solely onANCA IFA results. The International ANCA Group Consensusrecommends follow up testing of positive sera with both NV-3 and MPO-ANCA enzyme immunoassays. As many as 5% serumsamples are positive only by EIA. Ref. AM J Clin Uyrsli9826;111:507-513. Pharmacy Creatinine Clearance (Chem N/A [facility] Protein Electrophoresis M-Michael Not observed g/dL Not Observed [facility] Protein Electrophoresis Note See comment . [facility] Comment on above: Protein electrophore sis scan will follow via computer,mail, or regional geodetic advisor delivery.Performed at: [facility] [address] [id number] Director: Krunal Nichols PhD, Phone: [phone] Serum Immunofixation See comment . [facility] Comment on above: No monoclonality det ected. Total Complement (CH50) 51 U/mL >41 [facility] Comment on above: Age Male Female [...] to determine out of range values.Performed at: - [facility] [id number] Director: Krunal Nichols PhD, Phone: [phone] Urine Random Prot Electrophor Note See comment . [facility] Comment on above: Protein electrophore sis scan will follow via computer,mail, or regional geodetic advisor delivery. Nucleated erythrocytes [Pres ence] in Blood by Automated countOrdered By: Carlos Guzmán on 11-24-2023 Nucleated RBC Auto Ql (Bld) 0.0 /100{WBC} 0-0.5 [facility] Platelet mean volume Auto (B ld) [Entitic vol]Ordered By: Carlos Guzmán on 11-24-2023 Platelet mean volume (Bld) [Entitic vol] 7.9 fL 6.6-10.1 [facility] Platelets Auto (Bld) [#/Vol] Ordered By: Carlos Guzmán on 11-24-2023 Platelets (Bld) [#/Vol] 369 10*3/uL 150-450 [facility] Potassium [Moles/volume] in Serum or PlasmaOrdered By: Carlos Guzmán on 11-24-2023 Potassium [Moles/Vol] 4.3 mmol/L 3.5-5.1 [facility] Protein Auto test strip (U) [Mass/Vol]Ordered By: Carlos Guzmán on 11-24-2023 Protein (U) [Mass/Vol] 30 mg/dL Negative [facility] Protein Electro, Random Urin sheree 11-24-2023 Albumin, Urine 50.7 % Normal . [facility] Comment on above: Performed By: #### I FE,URINE, SVETLANA SERUM, UPE RAND, SPE ####[facility] ,#### ESR, ADDONUAPLUS, CRP, CBC, CMP ####[facility] [address]tl[address] Kburr-0-Qtbvnutk, Urine 1.3 % Normal . [facility] Comment on above: Performed By: #### I FE,URINE, SVETLANA SERUM, UPE RAND, SPE ####[facility] ,#### ESR, ADDONUAPLUS, CRP, CBC, CMP ####[address] Tjnjs-6-Zwwjauqt, Urine 9.1 % Normal . [facility] Comment on above: Performed By: #### I FE,URINE, SVETLANA SERUM, UPE RAND, SPE ####[facility] ,#### ESR, ADDONUAPLUS, CRP, CBC, CMP ####[address] Beta Globulin, Urine 18.7 % Normal . [facility] Comment on above: Performed By: #### I FE,URINE, SVETLANA SERUM, UPE RAND, SPE ####[facility] ,#### ESR, ADDONUAPLUS, CRP, CBC, CMP ####[address] Gamma Globulin, Urine 20.1 % Normal . [facility] Comment on above: Performed By: #### I FE,URINE, SVETLANA SERUM, UPE RAND, SPE ####[facility] ,#### ESR, ADDONUAPLUS, CRP, CBC, CMP ####[address] M-Michael % Not Observed Normal Not Observed [facility] Comment on above: Performed By: #### I FE,URINE, SVETLANA SERUM, UPE RAND, SPE ####[facility] ,#### ESR, ADDONUAPLUS, CRP, CBC, CMP ####[address] Please Note: Normal . [facility] Comment on above: Result Comment: Prot ein electrophoresis scan will follow via computer, mail, or regional geodetic advisor delivery. PERFORMED BY: [facility] [address] [place] [address] PATHOLOGIST SURGICAL TERRITORY MANAGER ADELFO RAMIREZ M.D. Performed By: #### I FE,URINE, SVETLANA SERUM, UPE RAND, SPE ####[facility] ,#### ESR, ADDONUAPLUS, CRP, CBC, CMP ####[facility] Protein (U) [Mass/Vol] 40.0 mg/dL Normal Not Estab. [facility] Comment on above: Performed By: #### I FE,URINE, SVETLANA SERUM, UPE RAND, SPE ####[facility] ,#### ESR, ADDONUAPLUS, CRP, CBC, CMP ####[facility] Protein Electrophoresis, Ser umon 11-24-2023 Albumin [Mass/Vol] 3.5 g/dL Normal 2.9-4.4 [facility] Comment on above: Performed By: #### I FE,URINE, SVETLANA SERUM, UPE RAND, SPE #### [facility] , #### ESR, ADDONUAPLUS, CRP, CBC, CMP #### [facility] [address] Albumin/Globulin [Mass ratio] 0.8 {ratio} Normal 0.7-1.7 [facility] Comment on above: Performed By: #### I FE,URINE, SVETLANA SERUM, UPE RAND, SPE #### [facility] , #### ESR, ADDONUAPLUS, CRP, CBC, CMP #### [facility] [address] Tksjb-0-Qsfpqigs 0.2 g/dL Normal 0.0-0.4 [facility] Comment on above: Performed By: #### I FE,URINE, SVETLANA SERUM, UPE RAND, SPE #### [facility] , #### ESR, ADDONUAPLUS, CRP, CBC, CMP #### [address] Plwpj-4-Qvzqovlh 1.0 g/dL Normal 0.4-1.0 [facility] Comment on above: Performed By: #### I FE,URINE, SVETLANA SERUM, UPE RAND, SPE #### [facility] , #### ESR, ADDONUAPLUS, CRP, CBC, CMP #### [address] Beta Globulin 1.0 g/dL Normal 0.7-1.3 [facility] Comment on above: Performed By: #### I FE,URINE, SVETLANA SERUM, UPE RAND, SPE #### [facility] , #### ESR, ADDONUAPLUS, CRP, CBC, CMP #### [address] Gamma Globulin 2.2 g/dL High 0.4-1.8 [facility] Comment on above: Performed By: #### I FE,URINE, SVETLANA SERUM, UPE RAND, SPE #### [facility] , #### ESR, ADDONUAPLUS, CRP, CBC, CMP #### [address] M-Michael Not Observed Normal Not Observed [facility] Comment on above: Performed By: #### I FE,URINE, SVETLANA SERUM, UPE RAND, SPE #### [facility] , #### ESR, ADDONUAPLUS, CRP, CBC, CMP #### [address] Protein [Mass/Vol] 7.9 g/dL Normal 6.0-8.5 [facility] Comment on above: Performed By: #### I FE,URINE, SVETLANA SERUM, UPE RAND, SPE #### [facility] , #### ESR, ADDONUAPLUS, CRP, CBC, CMP #### [address] SPE-Note Normal . [facility] Comment on above: Result Comment: Prot ein electrophoresis scan will follow via computer, mail, or regional geodetic advisor delivery. Performed at: - [facility] [address] [id number] Engineering Technologist: Krunal Nichols PhD, Phone: [phone] PERFORMED BY: [place] [address] PATHOLOGIST SURGICAL TERRITORY MANAGER ADELFO RAMIREZ M.D. Performed By: #### I FE,URINE, SVETLANA SERUM, UPE RAND, SPE #### [facility] , #### ESR, ADDONUAPLUS, CRP, CBC, CMP #### [address] Protein [Mass/volume] in Ser um or PlasmaOrdered By: Carlos Guzmán on 11-24-2023 Protein [Mass/Vol] 8.2 g/dL 6.4-8.9 [facility] Protein [Mass/Vol] 7.9 g/dL 6.0-8.5 [facility] Protein [Mass/volume] in Uri neOrdered By: Carlos Guzmán on 11-24-2023 Protein (U) [Mass/Vol] 40.0 mg/dL Not Estab. [facility] Protein.monoclonal/Protein.t otal in 24 hour Urine by ElectrophoresisOrdered By: Carlos Guzmán on 11-24-2023 Protein.monoclonal Elph (24H U) [Mass fraction] Not observed % Not Observed [facility] Proteinase 3 Ab [Units/volum e] in Serum by ImmunoassayOrdered By: Carlos Guzmán on 11-24-2023 Proteinase 3 Ab IA Qn (S) <0.2 units 0.0-0.9 [facility] RBC Auto (Bld) [#/Vol]Ordere d By: Carlos Guzmán on 11-24-2023 RBC (Bld) [#/Vol] 4.45 10*6/uL 3.90-5.60 [facility] Serum classic neutrophil cyt oplasmic antibody titer by immunofluorescenceOrdered By: Carlos Guzmán on 11-24-2023 Neutrophil cytoplasmic Ab.classic IF (S) [Titer] <1:20 titer Neg:<1:20 [facility] Serum globulin measurement b y calculation (mass/volume)Ordered By: Carlos Guzmán on 11-24-2023 Globulin (S) [Mass/Vol] 4.4 g/dL 2.2-3.9 [facility] Serum homogeneous pattern an tinuclear antibody (VANESSA) titerOrdered By: Carlos Guzmán on 11-24-2023 Homogenous nuclear Ab pattern (S) [Titer] 1:640 . [facility] Comment on above: ICAP nomenclature: A C-1 Serum nuclear antibody titer Ordered By: Carlos Guzmán on 11-24-2023 Nuclear Ab (S) [Titer] Positive . [facility] Comment on above: Negative <1:80 Borde rline 1:80 Positive >1:80 Serum or plasma albumin/glob ulin mass ratioOrdered By: Carlos Guzmán on 11-24-2023 Albumin/Globulin [Mass ratio] 0.9 {ratio} [facility] Albumin/Globulin [Mass ratio] 0.8 {ratio} 0.7-1.7 [facility] Serum or plasma alpha 1 glob ulin measurement by electrophoresis (mass/volume)Ordered By: Carlos Guzmán on 11-24-2023 Alpha 1 globulin Elph [Mass/Vol] 0.2 g/dL 0.0-0.4 [facility] Serum or plasma alpha 2 glob ulin measurement by electrophoresis (mass/volume)Ordered By: Carlos Guzmán on 11-24-2023 Alpha 2 globulin Elph [Mass/Vol] 1.0 g/dL 0.4-1.0 [facility] Serum or plasma anion gap de terminationOrdered By: Carlos Guzmán on 11-24-2023 Anion gap [Moles/Vol] 14.8 mmol/L 6.0-15.0 [facility] Serum or plasma beta globuli n measurement by electrophoresis (mass/volume)Ordered By: Carlos Guzmán on 11-24-2023 Beta globulin Elph [Mass/Vol] 1.0 g/dL 0.7-1.3 [facility] Serum or plasma complement C 3 measurement (mass/volume)Ordered By: Carlos Guzmán on 11-24-2023 Complement C3 [Mass/Vol] 135 mg/dL 82-167 [facility] Comment on above: Performed at: [address] [id number] Director: Krunal Nichols PhD, Phone: [phone] Serum or plasma complement C 4 measurement (mass/volume)Ordered By: Carlos Guzmán on 11-24-2023 Complement C4 [Mass/Vol] 10 mg/dL 12-38 [facility] Serum or plasma gamma globul in measurement by electrophoresis (mass/volume)Ordered By: Carlos Guzmán on 11-24-2023 Gamma globulin Elph [Mass/Vol] 2.2 g/dL 0.4-1.8 [facility] Sodium [Moles/volume] in Ser um or PlasmaOrdered By: Carlos Guzmán on 11-24-2023 Sodium [Moles/Vol] 138 mmol/L 136-145 [facility] Specific gravity Auto test s trip (U) [Rel density]Ordered By: Carlos Guzmán on 11-24-2023 Specific gravity (U) [Rel density] 1.039 1.001-1.03 0 [facility] Squamous epithelial cells de tection in urine sediment by light microscopyOrdered By: Carlos Guzmán on 11-24-2023 Epithelial cells.squamous LM Ql (Urine sed) None seen [HPF] 0-2 [facility] Urea nitrogen [Mass/volume] in Serum or PlasmaOrdered By: Carlos Guzmán on 11-24-2023 Urea nitrogen [Mass/Vol] 15 mg/dL 7-25 [facility] Urine alpha 1 globulin/total protein by electrophoresisOrdered By: Carlos Guzmán on 11-24-2023 Alpha 1 globulin Elph (U) [Mass fraction] 1.3 % . [facility] Urine alpha 2 globulin/total protein ratio by electrophoresisOrdered By: Carlos Guzmán on 11-24-2023 Alpha 2 globulin Elph (U) [Mass fraction] 9.1 % . [facility] Urine bacteria detection by automated methodOrdered By: Carlos Guzmán on 11-24-2023 Bacteria Auto Ql (U) None seen None Seen [facility] Urine beta globulin measurem ent by electrophoresis (mass/volume)Ordered By: Carlos Guzmán on 11-24-2023 Beta globulin Elph (U) [Mass/Vol] 18.7 % . [facility] Urine clarity by refractomet ry automatedOrdered By: Carlos Guzmán on 11-24-2023 Clarity Refractometry automated (U) Clear Clear [facility] Urine glucose measurement by automated test strip (mass/volume)Ordered By: Carlos Guzmán on 11-24-2023 Glucose Auto test strip (U) [Mass/Vol] >=1000 mg/dL Normal [facility] Urine hemoglobin detection b y automated test stripOrdered By: Carlos Guzmán on 11-24-2023 Hemoglobin Auto test strip Ql (U) Negative Negative [facility] Urine leukocyte esterase det ection by automated test stripOrdered By: Carlos Guzmán on 11-24-2023 Leukocyte esterase Auto test strip Ql (U) Negative Negative [facility] Urobilinogen Auto test strip (U) [Mass/Vol]Ordered By: Carlos Guzmán on 11-24-2023 Urobilinogen (U) [Mass/Vol] Normal mg/dL Normal [facility] WBC Auto (Bld) [#/Vol]Ordere d By: Carlos Guzmán on 11-24-2023 WBC (Bld) [#/Vol] 8.9 10*3/uL 4.1-10.5 [facility] pH Auto test strip (U)Ordere d By: Carlos Guzmán on 11-24-2023 pH (U) 5.0 [pH] 5.0-9.0 [facility] Basophils Auto (Bld) [#/Vol] on 10-28-2023 Basophils (Bld) [#/Vol] 0.1 10 3/uL 0.0-0.1 [facility] Basophils/100 WBC Auto (Bld) on 10-28-2023 Basophils/100 WBC (Bld) 0.7 % 0.2-2.0 [facility] Centriole Ab [Titer] in Seru m by Immunofluorescenceon 10-28-2023 Centriole Ab IF (S) [Titer] TNP . [facility] Centromere Ab [Titer] in Ser um by Immunofluorescenceon 10-28-2023 Centromere Ab IF (S) [Titer] TNP . [facility] Eosinophils/100 WBC Auto (Bl d)on 10-28-2023 Eosinophils/100 WBC (Bld) 2.2 % 0.9-7.0 [facility] Erythrocyte distribution wid th Auto (RBC) [Ratio]on 10-28-2023 Erythrocyte distribution width (RBC) [Ratio] 14.6 % 11.0-15.0 [facility] Estimated glomerular filtrat ion rate (GFR) non- Americanon 10-28-2023 GFR/1.73 sq M.predicted among non-blacks MDRD (S/P/Bld) [Vol rate/Area] mL/min/{1.73_m2} >=60 [facility] Globulin Calc (S) [Mass/Vol] on 10-28-2023 Globulin (S) [Mass/Vol] 5.8 g/dL [facility] Hematocrit Auto (Bld) [Volum e fraction]on 10-28-2023 Hematocrit (Bld) [Volume fraction] 40.0 % 42.0-54.0 [facility] Hemoglobin [Mass/volume] in Bloodon 10-28-2023 Hemoglobin (Bld) [Mass/Vol] 13.1 g/dL 14.0-18. 0 [facility] Laboratory - Chemistry and C hemistry - challengeon 10-28-2023 Albumin [Mass/Vol] 2.8 g/dL 3.4-5.0 [facility] ALP [Catalytic activity/Vol] 94 U/L 46-116 [facility] ALT [Catalytic activity/Vol] 17 U/L 16-63 [facility] AST [Catalytic activity/Vol] 23 U/L 15-37 [facility] Bilirubin [Mass/Vol] 0.6 mg/dL 0.2-1.0 [facility] Calcium [Mass/Vol] 8.8 mg/dL 8.5-10.1 [facility] Chloride [Moles/Vol] 100 mmol/L 98-107 [facility] CO2 [Moles/Vol] 28.0 mmol/L 21.0-32.0 [facility] Creatinine [Mass/Vol] 0.80 mg/dL 0.70-1.30 [facility] GFR/1.73 sq M.predicted MDRD (S/P/Bld) [Vol rate/Area] mL/min/{1.73_m2} >=60 [facility] Glucose [Mass/Vol] 135 mg/dL 74-106 [facility] Potassium [Moles/Vol] 4.5 mmol/L 3.5-5.1 [facility] Protein [Mass/Vol] 8.6 g/dL 6.4-8.2 [facility] Sodium [Moles/Vol] 138 mmol/L 136-145 [facility] Urate [Mass/Vol] 4.2 mg/dL 3.5-7.2 [facility] Urea nitrogen [Mass/Vol] 14.0 mg/dL 7.0-18.0 [facility] Urea nitrogen/Creatinine [Mass ratio] 17.5 mg/mg [facility] - Hematology and Cell countson 10-28-2023 ESR (Bld) [Velocity] 62 mm/h <=20 [facility] Immature granulocytes/100 WBC (Bld) 0.1 % 0.0-0.5 [facility] Leukocytes [#/volume] correc yuniel for nucleated erythrocytes in Blood by Automated counon 10-28-2023 WBC corrected for nucl RBC Auto (Bld) [#/Vol] 7.2 10 3/uL 4.0-11.0 [facility] Lymphocytes Auto (Bld) [#/Vo l]on 10-28-2023 Lymphocytes (Bld) [#/Vol] 1.9 10 3/uL 1.2-3.8 [facility] Lymphocytes/100 WBC Auto (Bl d)on 10-28-2023 Lymphocytes/100 WBC (Bld) 26.6 % 20.5-60.0 [facility] MCH Auto (RBC) [Entitic mass ]on 10-28-2023 MCH (RBC) [Entitic mass] 30.2 pg 25.9-34.0 [facility] MCHC Auto (RBC) [Mass/Vol]on 10-28-2023 MCHC (RBC) [Mass/Vol] 32.8 g/dL 29.9-35.2 [facility]ir [facility] MCV Auto (RBC) [Entitic vol] on 10-28-2023 MCV (RBC) [Entitic vol] 92.2 fL 80.0-94.0 [facility] Midbody Ab [Titer] in Serum by Immunofluorescenceon 10-28-2023 Midbody Ab IF (S) [Titer] TNP . [facility] Mitotic spindle apparatus Ab [Titer] in Serum or Plasma by Immunofluorescenceon 10-28-2023 Mitotic spindle apparatus Ab IF [Titer] TNP . [facility] Monocytes Auto (Bld) [#/Vol] on 10-28-2023 Monocytes (Bld) [#/Vol] 0.8 10 3/uL 0.3-0.8 [facility] Monocytes/100 WBC Auto (Bld) on 10-28-2023 Monocytes/100 WBC (Bld) 10.4 % 1.7-12.0 [facility] Neutrophils Auto (Bld) [#/Vo l]on 10-28-2023 Neutrophils (Bld) [#/Vol] 4.3 10 3/uL 1.4-6.5 [facility] Neutrophils/100 WBC Auto (Bl d)on 10-28-2023 Neutrophils/100 WBC (Bld) 60.0 % 43.0-75.0 [facility] No Panel Informationon 10-28 Anti-Nuclear Antibody Comment 2 Comment . [facility] Comment on above: Pattern Potential Di sease Association Homogeneous Systemic Lupus Erythematosus, Drug Induced Systemic Lupus Erythematosus, Chronic Autoimmune hepatitis, Juvenile Idiopathic Arthritis Speckled Sjogren Syndrome, Systemic Lupus Erythematosus, Subacute Cutaneous Lupus, Lupus, Congenital Heart Block, Mixed Connective Tissue Disease, Scleroderma-diffuse, Scleroderma-Autoimmune Myositis Overlap Syndrome, Systemic Lupus Mtpcsyzictreo-Nxbtmhprwnn-Uvycawgymb Myositis Overlap Syndrome, Systemic Autoimmune Rheumatic Disease, [...] Cytopenias, Linear Scleroderma, Antiphospholipid Syndrome Performed at: [facility] [id number] [place], [place] [id number] Director: Krunal Nichols PhD, Phone: [phone] C-Reactive Protein, Quantitative <0.50 mg/dL <=0.50 [facility] Eosinophils # (Auto) 0.2 10 3/uL 0.0-0.7 [facility] Immature Granulocyte # (Auto) 0.01 10 3/uL 0.00-0.03 [facility] Nuclear dots nuclear Ab prashant bhupendra [Titer] in Serum by Immunofluorescenceon 10-28-2023 Nuclear dots nuclear Ab pattern IF (S) [Titer] TNP . [facility] Nuclear membrane pores nucle ar Ab pattern [Titer] in Serum by Immunofluorescenceon 10-28-2023 Nuclear membrane pores nuclear Ab pattern IF (S) [Titer] TNP . [facility] PCNA extractable nuclear Ab [Titer] in Serum by Immunofluorescenceon 10-28-2023 PCNA extractable nuclear Ab IF (S) [Titer] TN . [facility] Platelet mean volume Auto (B ld) [Entitic vol]on 10-28-2023 Platelet mean volume (Bld) [Entitic vol] 8.9 fL 9.5-13.5 [facility] Platelets Auto (Bld) [#/Vol] on 10-28-2023 Platelets (Bld) [#/Vol] 296 10 3/uL 150-450 [facility] RBC Auto (Bld) [#/Vol]on RBC (Bld) [#/Vol] 4.34 10 6/uL 4.70-6.10 [facility] Serum homogeneous pattern an tinuclear antibody (VANESSA) titeron 10-28-2023 Homogenous nuclear Ab pattern (S) [Titer] 1:640 . [facility] Comment on above: ICAP nomenclature: A C-1 Serum nuclear antibody titer on 10-28-2023 Nuclear Ab (S) [Titer] Positive . [facility] Comment on above: Negative <1:80 Borde rline 1:80 Positive >1:80 Serum nucleolar pattern anti nuclear antibody (VANESSA) titeron 10-28-2023 Nucleolar nuclear Ab pattern (S) [Titer] TNP . [facility] Serum or plasma albumin/glob ulin mass ratioon 10-28-2023 Albumin/Globulin [Mass ratio] 0.5 {ratio} [facility] Serum or plasma anion gap de terminationon 10-28-2023 Anion gap [Moles/Vol] 14.5 mmol/L [facility] Serum or plasma cyclic adeno sine monophosphate measurement (moles/volume)on 10-28-2023 Adenosine monophosphate.cyclic [Moles/Vol] >250 units 0-19 [facility] Comment on above: Negative <20 Weak po sitive 20 - 39 Moderate positive 40 - 59 Strong positive >59Performed at: [facility] [place], [place] [id number] Director: Krunal Nichols PhD, Phone: [phone] Serum or plasma rheumatoid f actor measurement (units/volume)on 10-28-2023 Rheumatoid factor Qn 183.9 [IU]/mL <14.0 [facility] Comment on above: Results confirmed on dilution.Performed at: [facility] [id number] [place], [place] [id number] Director: Krunal Nichols PhD, Phone: [phone] Serum speckled pattern antin uclear antibody (VANESSA) titeron 10-28-2023 Speckled nuclear Ab pattern (S) [Titer] TNP . [facility] Glucose Glucometer (BldC) [M ass/Vol]Ordered By: Erickson Nascimento on 07-04-2023 Glucose [Mass/Vol] 134 mg/dL [facility] Comment on above: Random Glucose Refer ence Range is dependent on time and content of last meal. Glucose of more than 200 mg/dL in a nonstressed, ambulatory subject supports the diagnosis of Diabetes Mellitus. Glucose Poct Glucometerson 1 09-03-2022 Glucose [Mass/Vol] 134 mg/dL Normal [facility] Comment on above: Result Comment: [place] Glucose Reference Range is dependent on time and content of last meal. Glucose of more than 200 mg/dL in a nonstressed, ambulatory subject supports the diagnosis of Diabetes Mellitus. PERFORMED BY: [facility] [address] [place] [address] PATHOLOGIST SURGICAL TERRITORY MANAGER ADELFO RAMIREZ M.D. Performed By: #### G LOYD ####Point of Care testing, [facility] 07-04-2023 L - -------- Specimen: [id number] Received: 07/04/23 Status: RAQUEL De Oliveira Num: [id number] Spec Type: Surgical Subm Dr: Erickson Nascimento DO Tissues: A Soft Tissue/Surgical Margin-Other than Tumor,Mass,Lip or Natasha (LT ELBOW MASS) Procedures: Kristin KAUR/Zo L4 -------- Age/ Patient Sex Location Account Attending Physician -------- Mariano Gutierrez 73/M [place] [id number] Erickson Nascimento DO -------- SPEC NUM: [id number] RECD: 07/04/23 STATUS: RAQUEL DE OLIVEIRA NUM: [id number] DENISA: 07/04/[address]: Erickson Nascimento DO ENTERED: 07/04/[address] [facility] [address]: SPEC TYPE: Surgical DEPT: S ORDERED: VINCENT Gross/Micro L4 ORDERED: VINCENT, Gross/Micro L4 Pathological [...] tissue with a rubbery, dubois-pink cut surface. Field Radio Technician sections are submitted in one cassette labeled A1. -------- Specimen: [id number] Received: 07/04/23 Status: CATRACHITOBri De Oliveira Num: [id number] Spec Type: Surgical Subm Dr: Erickson Nascimento DO Tissues: A Soft Tissue/Surgical Margin-Other than Tumor,Mass,Lip or Natasha (LT ELBOW MASS) Procedures: Kristin KAUR/Micro L4 -------- Patient: Mariano Gutierrez [id number] (Continued) -------- Specimen: [id number] Received: 07/04/23 (Continued) Signed (signature on file) Brandy Keane MD 07/08/23 1545 -------- Specimen: [id number] Received: 07/04/23 Status: RAQUEL Alvino Num: [id number] Spec Type: Surgical Subm Dr: Erickson Nascimento DO Tissues: A Soft Tissue/Surgical Margin-Other than Tumor,Mass,Lip or Natasha (LT ELBOW MASS) Procedures: Kristin KAUR/Zo L4 -------- Patient: Mariano Gutierrez [id number] (Continued) -------- Specimen: [id number] Received: 07/04/23 (Continued) Microscopic Description One H E slide reviewed. The microscopic examination confirms the diagnosis. CPT Codes 47549 -------- -------- Specimen: [id number] Received: 07/04/23 Status: RAQUEL Alvino Num: [id number] Spec Type: Surgical Subm Dr: Erickson Nascimento, Tissues: A Soft Tissue/Surgical Margin-Other than Tumor,Mass,Lip or Natasha (LT ELBOW MASS) Procedures: Kristin KAUR/Zo L4 -------- Patient: Mariano Gutierrez [id number] (Continued) -------- Signed (signature on file) Brandy Keane MD 07/08/23 1545 Normal [facility] XR elbow LT 2Von 02-26-2023 XR elbow LT 2V [facility] [place] [address] XRay Report Signed Patient: Mariano Gutierrez MR#: [id number] : 1950 Acct:[id number] Age/Sex: 72 / M ADM Date: 02/26/23 Loc: [facility] Room: Type: [facility] Attending Dr: Erickson Nascimento DO Copies to: [...] PROCESS. Impression dictated by: Abdirahman Blount Jr., ElizabethOJeferson02/26/2023 2:56 PM Dictation Location: [place] [address] Transcribed By: [facility] 02/26/23 1456 Dictated By: Abdirahman Blount Jr, DO 02/26/23 1455 Signed By: 02/26/23 1456 Normal [facility] GLYCOHEMOGLOBIN A1Con 2022 ADA RECOMMENDATION SEE BELOW [facility] Comment on above: Result Comment: ADA RECOMMENDED LIMIT 4.0 - 6.0 ADA THERAPEUTIC TARGET < 7.0 ACTION SUGGESTED > 7.0 Performed By: #### D ATA1C #### [facility] [address] [place] [address] Dr. Ginger Keane Glucose [Mass/Vol] 123 mg/dL Normal [facility] Comment on above: Performed By: #### D ATA1C #### [facility] [address] [address] [address] Ginger Keane HbA1c (Bld) [Mass fraction] 5.9 % Normal 4.5-6.2 [facility] Comment on above: Performed By: #### D ATA1C #### [facility] [address] [place] [address] Dr. Ginger Keane GLYCOHEMOGLOBIN A1Con 2021 ADA RECOMMENDATION SEE BELOW Normal [facility] Comment on above: Result Comment: ADA RECOMMENDED LIMIT 4.0 - 6.0 ADA THERAPEUTIC TARGET < 7.0 ACTION SUGGESTED > 7.0 Performed By: #### D ATA1C #### [facility] [address] [place] [address] Dr. Ginger Keane Glucose [Mass/Vol] 160 mg/dL Normal [facility] Comment on above: Performed By: #### D ATA1C #### [facility] [address] [place] [address] Dr. Ginger Keane HbA1c (Bld) [Mass fraction] 7.2 % Critically high 4.5 -6.2 [facility] Comment on above: Performed By: #### D ATA1C #### [facility] [address] [place] [address] Dr. Ginger Keane MICROALBUMIN URINEon 022 Albumin, Urine 123.8 ug/mL Normal Not Estab. [facility] Comment on above: Performed By: #### M ALBLC #### [facility] [address] [place] [address] Dr. Ginger Keane CBC AUTO DIFFon 05-15-2022 BASO # 0.1 103/ul Normal 0.0-0.1 [facility] Comment on above: Performed By: #### C BC #### [facility] [address] [place] [address] Dr. Ginger Keane Basophils/100 WBC (Bld) 0.6 % Normal 0.2-2.0 [facility] Comment on above: Performed By: #### C BC #### [facility] [address] [place] [address] Dr. Ginger Keane EO # 0.2 103/ul Normal 0.0-0.7 [facility] Comment on above: Performed By: #### C BC #### [facility] [address] [place] [address] Dr. Ginger Keane Eosinophils/100 WBC (Bld) 2.9 % Normal 0.9-7.0 [facility] Comment on above: Performed By: #### C BC #### [facility] [address] [place] [address] Dr. Ginger Keane Erythrocyte distribution width (RBC) [Ratio] 12.9 % Normal 11.0-15.0 [facility] Comment on above: Performed By: #### C BC #### [facility] [address] [place] [address] Dr. Ginger Keane Hematocrit (Bld) [Volume fraction] 44.3 % Normal 42.0-54.0 [facility] Comment on above: Performed By: #### C BC #### [facility] [address] [place] [address] Dr. Ginger Keane Hemoglobin (Bld) [Mass/Vol] 15.6 g/dL Normal 14.0-18. 0 [facility] Comment on above: Performed By: #### C BC #### [facility] [address] [place] [address] Dr. Ginger Keane IG # 0.01 10e3/ul Normal 0.00-0.03 [facility] Comment on above: Performed By: #### C BC #### [facility] [address] [place] [address] Dr. Ginger Keane IG % 0.1 % Normal 0.0-0.5 [facility] Comment on above: Performed By: #### C BC #### [facility] [address] [place] [address] Dr. Ginger Keane LYMPH # 2.9 103/ul Normal 1.2-3.8 [facility] Comment on above: Performed By: #### C BC #### [facility] [address] [place] [address] Dr. Ginger Keane Lymphocytes/100 WBC (Bld) 34.1 % Normal 20.5-60.0 [facility] Comment on above: Performed By: #### C BC #### [facility] [address] [place] [address] Dr. Ginger Keane MANUAL DIFF REQ NO Normal [facility] Comment on above: Performed By: #### C BC #### [facility] [address] [place] [address] Dr. Ginger Keane MCH (RBC) [Entitic mass] 32.8 pg Normal 25.9-34.0 [facility] Comment on above: Performed By: #### C BC #### [facility] [address] [place] [address] Dr. Ginger Keane MCHC (RBC) [Mass/Vol] 35.2 g/dL Normal 29.9-35.2 [facility] Comment on above: Performed By: #### C BC #### [facility] [address] [place] [address] Dr. Ginger Keane MCV (RBC) [Entitic vol] 93.3 fL Normal 80.0-94.0 [facility] Comment on above: Performed By: #### C BC #### [facility] [address] [place] [address] Dr. Ginger Keane MONO # 0.6 103/ul Normal 0.3-0.8 [facility] Comment on above: Performed By: #### C BC #### [facility] [address] [place] [address] Dr. Ginger Keane Monocytes/100 WBC (Bld) 7.5 % Normal 1.7-12.0 [facility] Comment on above: Performed By: #### C BC #### [facility] [address] [place] [address] Dr. Ginger Keane NEUT # 4.6 103/ul Normal 1.4-6.5 [facility] Comment on above: Performed By: #### C BC #### [facility] [address] [place] [address] Dr. Ginger Keane Neutrophils/100 WBC (Bld) 54.8 % Normal 43.0-75.0 [facility] Comment on above: Performed By: #### C BC #### [facility] [address] [address] [address] Ginger Keane Platelet mean volume (Bld) [Entitic vol] 9.7 fL Normal 9.5-13.5 [facility] Comment on above: Performed By: #### C BC #### [facility] [address] [address] [address] Ginger Keane PLT 260 103/ul Normal 150-450 [facility] Comment on above: Performed By: #### C BC #### [facility] [address] [address] [address] Ginger Keane RBC 4.75 106/ul Normal 4.70-6.10 [facility] Comment on above: Performed By: #### C BC #### [facility] [address] [address] [address] Ginger Keane WBC 8.4 103/ul Normal 4.0-11.0 [facility] Comment on above: Performed By: #### C BC #### [facility] [address] [address] [address] Ginger Keane LIPID PROFILEon 05-15-2022 CHOL-HDL RATIO NORM SEE BELOW Normal [facility] Comment on above: Result Comment: 3.3 - 4.4 LOW RISK 4.4 - 7.1 AVERAGE RISK 7.1 - 11.0 MODERATE RISK >11.0 HIGH RISK Performed By: #### B MP, LIPID, ALT #### [facility] [address] [address] [address] Ginger Keane Cholesterol [Mass/Vol] 119 mg/dL Normal <=200 [facility] Comment on above: Performed By: #### B MP, LIPID, ALT #### [facility] [address] [address] [address] Ginger Keane Cholesterol in HDL [Mass/Vol] 37 mg/dL Critically low 40-60 [facility] Comment on above: Performed By: #### B MP, LIPID, ALT #### [facility] [address] [place] [address] Dr. Ginger Keane Cholesterol in LDL [Mass/Vol] 35.2 mg/dL Normal [facility] Comment on above: Performed By: #### B MP, LIPID, ALT #### [facility] [address] [address] [address] Ginger Keane Cholesterol.total/Cholester ol in HDL [Mass ratio] 3.2 {ratio} Normal [facility] Comment on above: Performed By: #### B MP, LIPID, ALT #### [facility] [address] [address] [address] Ginger Keane HDL NORMAL > or = 60 mg/dl - LO W CARDIOVASCULAR RISK <40 mg/dl - HIGH CARDIOVASCULAR RISK Normal [facility] Comment on above: Performed By: #### B MP, LIPID, ALT #### [facility] [address] [place] [address] Dr. Ginger Keane LDL CALC NORMAL SEE BELOW Normal [facility] Comment on above: Result Comment: <100 mg/dl OPTIMAL 100 - 129 mg/dl NEAR OR ABOVE OPTIMAL 130 - 159 mg/dl BORDERLINE HIGH 160 - 189 mg/dl HIGH >190 mg/dl VERY HIGH Performed By: #### B MP, LIPID, ALT #### [facility] [address] [address] [address] Ginger Keane Triglyceride [Mass/Vol] 234 mg/dL Critically high <=150 [facility] Comment on above: Performed By: #### B MP, LIPID, ALT #### [facility] [address] [address] [address] Ginger Keane VLDL CALC 46.8 mg/dL Normal [facility] Comment on above: Performed By: #### B MP, LIPID, ALT #### [facility] [address] [address] [address] Ginger Keane PROF CHEM 8 (BAS METB)on Anion gap [Moles/Vol] 13.3 mmol/L Normal [facility] Comment on above: Performed By: #### B MP, LIPID, ALT #### [facility] [address] [place] [address] Dr. Ginger Keane Calcium [Mass/Vol] 8.7 mg/dL Normal 8.5-10.1 [facility] Comment on above: Performed By: #### B MP, LIPID, ALT #### [facility] [address] [address] [address] Ginger Keane Chloride [Moles/Vol] 102 mmol/L Normal 98-107 [facility] Comment on above: Performed By: #### B MP, LIPID, ALT #### [facility] [address] [address] [address] Ginger Keane CO2 [Moles/Vol] 26.8 mmol/L Normal 21.0-32.0 [facility] Comment on above: Performed By: #### B MP, LIPID, ALT #### [facility] [address] [address] [address] Ginger Keane Creatinine [Mass/Vol] 0.92 mg/dL Normal 0.70-1.30 [facility] Comment on above: Performed By: #### B MP, LIPID, ALT #### [facility] [address] [address] [address] Ginger Keane EGFR-AF DUTCH >60 Normal >=60 [facility] Comment on above: Performed By: #### B MP, LIPID, ALT #### [facility] [address] [address] [address] Ginger Keane EGFR-NON AF DUTCH >60 Normal >=60 [facility] Comment on above: Performed By: #### B MP, LIPID, ALT #### [facility] [address] [address] [address] Ginger Keane Glucose [Mass/Vol] 161 mg/dL Critically high 74-[address] [facility] Comment on above: Performed By: #### B MP, LIPID, ALT #### [facility] [address] [address] [address] Ginger Keane Potassium [Moles/Vol] 4.1 mmol/L Normal 3.5-5.1 [facility] Comment on above: Performed By: #### B MP, LIPID, ALT #### [facility] [address] [address] [address] Ginger Keane Sodium [Moles/Vol] 138 mmol/L Normal 136-145 [facility] Comment on above: Performed By: #### B MP, LIPID, ALT #### [facility] [address] [address] [address] Ginger Keane Urea nitrogen [Mass/Vol] 13.0 mg/dL Normal 7.0-18.0 [facility] Comment on above: Performed By: #### B MP, LIPID, ALT #### [facility] [address] [address] [address] Ginger Keane Urea nitrogen/Creatinine [Mass ratio] 14.1 mg/mg Normal [facility] Comment on above: Performed By: #### B MP, LIPID, ALT #### [facility] [address] [address] [address] Ginger Keane SGPTon 05-15-2022 ALT [Catalytic activity/Vol] 26 U/L Normal 16-63 [facility] Comment on above: Performed By: #### B MP, LIPID, ALT #### [facility] [address] [place] [address] Dr. Ginger Keane GLYCOHEMOGLOBIN A1Con 2021 ADA RECOMMENDATION SEE BELOW Normal [facility] Comment on above: Result Comment: ADA RECOMMENDED LIMIT 4.0 - 6.0 ADA THERAPEUTIC TARGET < 7.0 ACTION SUGGESTED > 7.0 Performed By: #### D ATA1C #### [facility] [address] [place] [address] Dr. Ginger Keane Glucose [Mass/Vol] 146 mg/dL Normal [facility] Comment on above: Performed By: #### D ATA1C #### [facility] [address] [place] [address] Dr. Ginger Keane HbA1c (Bld) [Mass fraction] 6.7 % Critically high 4.5 -6.2 [facility] Comment on above: Performed By: #### D ATA1C #### [facility] [address] [place] [address] Dr. Ginger Keane Vital Signs Date Time Vital Sign Value Performing Clinician Facility 09-24-2024 11:36-0500 Body height 177.8 cm [facility] 09-24-2024 11:36-0500 Body mass index (BMI) [Ratio] 29.9 kg/m2 [facility] 09-24-2024 11:36-0500 Body weight 94.85 kg [facility] 09-24-2024 11:36-0500 Diastolic blood pressure 78 mm[Hg] [facility] 09-24-2024 11:36-0500 Heart rate 88 /min [facility] 09-24-2024 11:36-0500 Respiratory rate 12 /min [facility] 09-24-2024 11:36-0500 SaO2% (BldA) [Mass fraction] 95 % [facility] 09-24-2024 11:36-0500 Systolic blood pressure 132 mm[Hg] [facility] 05-26-2024 13:28-0400 Body height 180.34 cm [facility] 05-26-2024 13:28-0400 Body mass index (BMI) [Ratio] 28.2 kg/m2 [facility] 05-26-2024 13:28-0400 Body weight 91.73 kg [facility] 05-26-2024 13:28-0400 Diastolic blood pressure 64 mm[Hg] [facility] 05-26-2024 13:28-0400 Heart rate 77 /min [facility] 05-26-2024 13:28-0400 Systolic blood pressure 122 mm[Hg] [facility] 05-17-2024 13:51-0400 Body temperature 97.81 [degF] Angeles Payan DIRECTOR [employer]ODUCT [employer]NA[employer] Work Phone: [facility] 05-17-2024 13:51-0400 Body weight 89.81 kg Angeles Payan DIRECTOR [employer]NA[employer] Work Phone: [facility] 05-17-2024 13:51-0400 Diastolic blood pressure 80 mm[Hg] Angeles Payan DIRECTOR [employer]NA[employer] Work Phone: [facility] 05-17-2024 13:51-0400 Heart rate 111 /min Angeles Payan DIRECTOR [employer]NA[employer] Work Phone: [facility] Comment on above: repeat puls 96bpm apical 05-17-2024 13:51-0400 Respiratory rate 20 /min Angeles Payan DIRECTOR [employer]NA[employer] Work Phone: [facility] 05-17-2024 13:51-0400 SaO2% (BldA) [Mass fraction] 94 % Angeles Payan DIRECTOR [employer]NA[employer] Work Phone: [facility] 05-17-2024 13:51-0400 Systolic blood pressure 122 mm[Hg] Angeles Payan DIRECTOR [employer]ODUCT MANA[employer]EMENT Work Phone: [facility] 12-30-2023 11:02-0400 Body height 180.34 cm DO Vernon Ball Work Phone: [facility] 12-30-2023 11:02-0400 Body mass index (BMI) [Ratio] 26.4 kg/m2 DO Vernon Ball Work Phone: [facility] 12-30-2023 11:02-0400 Body weight 85.89 kg DO Vernon Ball Work Phone: [facility] 12-30-2023 11:02-0400 Diastolic blood pressure 72 mm[Hg] DO Vernon Ball Work Phone: [facility] 12-30-2023 11:02-0400 Heart rate 93 /min DO Vernon Ball Work Phone: [facility] 12-30-2023 11:02-0400 Respiratory rate 16 /min DO Vernon Ball Work Phone: [facility] 12-30-2023 11:02-0400 Systolic blood pressure 123 mm[Hg] DO Vernon Ball Work Phone: [facility] 10-20-2023 15:23-0500 Body height 180.34 cm [facility] 10-20-2023 15:23-0500 Body mass index (BMI) [Ratio] 25.5 kg/m2 [facility] 10-20-2023 15:23-0500 Body weight 83.09 kg [facility] 10-20-2023 15:23-0500 Diastolic blood pressure 65 mm[Hg] [facility] 10-20-2023 15:23-0500 Heart rate 99 /min [facility] 10-20-2023 15:23-0500 Respiratory rate 20 /min [facility] 10-20-2023 15:23-0500 Systolic blood pressure 126 mm[Hg] [facility] 10-01-2023 10:00-0500 Body height 180.34 cm Vernon Ball Other [facility] 10-01-2023 10:00-0500 Diastolic blood pressure 70 mm[Hg] Vernon Ball Other [facility] 10-01-2023 10:00-0500 SaO2% (BldA) [Mass fraction] 90 % Vernon Ball Other [facility] [employer] Other 10-01-2023 10:00-0500 Systolic blood pressure 124 mm[Hg] Vernon Ball Other [facility] 08-29-2023 10:00-0500 Body height 180.34 cm Vernon Ball Other [facility] 08-29-2023 10:00-0500 Body mass index (BMI) [Ratio] 25.63 kg/m2 Vernon Ball Other [facility] [employer] Other 08-29-2023 10:00-0500 Body weight 83.37 kg Vernon Ball Other [facility] 08-29-2023 10:00-0500 Diastolic blood pressure 63 mm[Hg] Vernon Ball Other [facility] 08-29-2023 10:00-0500 Respiratory rate 20 /min Vernon Ball Other [facility] [employer] Other 08-29-2023 10:00-0500 SaO2% (BldA) [Mass fraction] 84 % Vernon Ball Other [facility] [employer] Other 08-29-2023 10:00-0500 Systolic blood pressure 109 mm[Hg] Vernon Ball Other [facility] 08-12-2023 11:00-0500 Body height 180.34 cm Vernon Ball Other [facility] 08-12-2023 11:00-0500 Body mass index (BMI) [Ratio] 25.55 kg/m2 Vernon Ball Other [facility] [employer] Other 08-12-2023 11:00-0500 Body weight 83.1 kg Vernon Ball Other [facility] [employer] Other 08-12-2023 11:00-0500 Body weight 83.09 kg [facility] 08-12-2023 11:00-0500 Diastolic blood pressure 88 mm[Hg] Vernon Ball Other [facility] 08-12-2023 11:00-0500 Respiratory rate 20 /min Vernon Ball Other [facility] [employer] Other 08-12-2023 11:00-0500 SaO2% (BldA) [Mass fraction] 94 % Vernon Ball Other [place] Other 08-12-2023 11:00-0500 Systolic blood pressure 120 mm[Hg] Vernon Ball Other [facility] 07-10-2023 11:45-0500 Body height 180.34 cm Vernon Ball Other [employer] Other 07-10-2023 11:45-0500 Body mass index (BMI) [Ratio] 26.22 kg/m2 Vernon Ball Other [employer] Other 07-10-2023 11:45-0500 Body weight 85.28 kg Vernon Ball Other [employer] Other 07-10-2023 11:45-0500 Diastolic blood pressure 75 mm[Hg] Vernon Ball Other [employer] Other 07-10-2023 11:45-0500 Respiratory rate 16 /min Vernon Ball Other [employer] Other 07-10-2023 11:45-0500 Systolic blood pressure 129 mm[Hg] Vernon Ball Other [employer] Other 07-04-2023 08:03-0400 Diastolic blood pressure 93 mm[Hg] DO Vernon Ball Work Phone: [facility] 07-04-2023 08:03-0400 Heart rate 89 /min DO Vernon Ball Work Phone: [facility] 07-04-2023 08:03-0400 Respiratory rate 16 /min DO Vernon Ball Work Phone: [facility] 07-04-2023 08:03-0400 SaO2% (BldA) [Mass fraction] 93 % DO Vernon Ball Work Phone: [facility] 07-04-2023 08:03-0400 Systolic blood pressure 140 mm[Hg] DO Vernon Ball Work Phone: [facility] 07-04-2023 06:47-0400 Body height 180.34 cm DO Vernon Ball Work Phone: [facility] 07-04-2023 06:47-0400 Body temperature 98.2 [degF] DO Vernon Ball Work Phone: [facility] 07-04-2023 06:47-0400 Body weight 86.18 kg DO Vernon Ball Work Phone: [facility] 07-02-2023 13:45-0400 Body height 180.34 cm Erickson Nascimento Other [employer] Other 07-02-2023 13:45-0400 Body mass index (BMI) [Ratio] 26.5 kg/m2 Erickson Nascimento Other [employer] Other 07-02-2023 13:45-0400 Body weight 86.18 kg Erickson Nascimento Other [employer] Other 05-20-2023 10:00-0400 Body height 180.34 cm Vernon Ball Other [employer] Other 05-20-2023 10:00-0400 Body mass index (BMI) [Ratio] 26.64 kg/m2 Vernon Ball Other [employer] Other 05-20-2023 10:00-0400 Body weight 86.64 kg Vernon Ball Other [employer] Other 05-20-2023 10:00-0400 Diastolic blood pressure 74 mm[Hg] Vernon Ball Other [employer] Other 05-20-2023 10:00-0400 Respiratory rate 12 /min Vernon Ball Other [employer] Other 05-20-2023 10:00-0400 Systolic blood pressure 117 mm[Hg] Vernon Ball Other [employer] Other 02-17-2023 10:30-0400 Body height 180.34 cm Vernon Ball Other [employer] Other 02-17-2023 10:30-0400 Body mass index (BMI) [Ratio] 27.58 kg/m2 Vernon Ball Other [employer] Other 02-17-2023 10:30-0400 Body weight 89.72 kg Veronn Ball Other [employer] Other 02-17-2023 10:30-0400 Diastolic blood pressure 78 mm[Hg] Vernon Ball Other [employer] Other 02-17-2023 10:30-0400 Respiratory rate 12 /min Vernon Ball Other [employer] Other 02-17-2023 10:30-0400 Systolic blood pressure 128 mm[Hg] Vernon Ball Other [employer] Other 11-18-2022 11:30-0400 Body height 180.34 cm Vernon Ball Other [employer] Other 11-18-2022 11:30-0400 Body mass index (BMI) [Ratio] 27.42 kg/m2 Vernon Ball Other [employer] Other 11-18-2022 11:30-0400 Body weight 89.18 kg Vernon Ball Other [employer] Other 11-18-2022 11:30-0400 Diastolic blood pressure 70 mm[Hg] Vernon Ball Other [employer] Other 11-18-2022 11:30-0400 Respiratory rate 12 /min Vernon Ball Other [employer] Other 11-18-2022 11:30-0400 Systolic blood pressure 122 mm[Hg] Vernon Ball Other [employer] Other Encounters Encounter Date Encounter Type Care Provider Facility Start: 09-24-2024 End: 09-24-2024 ambulatory [facility] Work Phone: Start: 09-24-2024 End: 09-24-2024 Patient encounter procedure [facility] Work Phone: Start: 08-17-2024 Non-patient / Non-visit [facility] [email or web address] Work Phone: Start: 08-03-2024 Non-patient / Non-visit [facility] Work Phone: Start: 07-15-2024 Non-patient / Non-visit [facility] Work Phone: Start: 07-08-2024 Non-patient / Non-visit [facility] Work Phone: Start: 07-01-2024 Non-patient / Non-visit [facility] Work Phone: Start: 05-26-2024 End: 05-26-2024 ambulatory [facility] Work Phone: Start: 05-26-2024 End: 05-26-2024 Patient encounter procedure [facility] Work Phone: Start: 05-24-2024 Patient encounter procedure [facility] Start: 05-17-2024 End: 05-17-2024 ambulatory ANGELES PAYAN Not Available Start: 05-17-2024 End: 05-17-2024 Office outpatient new 45 minutes Angeles Payan DIRECTOR [employer]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 MANAGEMENT Work Phone: [facility] Comment on above: Closed fracture of m ultiple ribs of left side, initial encounter (Primary Dx); Rib pain on left side Start: 03-11-2024 Non-patient / Non-visit [facility] Work Phone: Start: 12-31-2023 End: 12-31-2023 ambulatory Carlos Guzmán Facility:[facility] Start: 12-30-2023 End: 12-30-2023 ambulatory DO Vernon Greene Work Phone: [facility] Work Phone: Start: 12-30-2023 End: 12-30-2023 Patient encounter procedure DO Vernon Greene Work Phone: [facility] Work Phone: Start: 12-29-2023 Non-patient / Non-visit DO Skinny benz Ball Work Phone: [facility] [facility] Work Phone: Start: 12-22-2023 Non-patient / Non-visit DO Skinny benz Ball Work Phone: [facility] Work Phone: Start: 12-09-2023 End: 12-09-2023 ambulatory [facility] Facility:[facility] Start: 12-09-2023 End: 12-09-2023 ambulatory DO Vernon Ball Work Phone: [facility] Work Phone: Start: 12-09-2023 End: 12-09-2023 Patient encounter procedure DO Vernon Ball Work Phone: [facility] [address] Work Phone: Start: 11-26-2023 End: 11-26-2023 ambulatory Vernon Greene Other [facility] [employer] Other Start: 11-26-2023 Telephone encounter Vernon Greene [facility] Start: 11-24-2023 End: 11-24-2023 ambulatory [facility] Facility:[facility] Start: 11-24-2023 End: 11-24-2023 ambulatory DO Vernon Ball Work Phone: [facility] Work Phone: Start: 11-24-2023 End: 11-24-2023 Patient encounter procedure DO Vernon Ball Work Phone: [facility]-Lab [address] Work Phone: Start: 10-28-2023 Non-patient / Non-visit DO Skinny benz Ball Work Phone: [facility] Work Phone: Start: 10-20-2023 End: 10-20-2023 ambulatory [facility] Work Phone: Start: 10-20-2023 End: 10-20-2023 Patient encounter procedure [facility] Work Phone: Start: 10-14-2023 Non-patient / Non-visit DO Skinny Greene Work Phone: [facility] Work Phone: Start: 10-07-2023 End: 10-07-2023 ambulatory Vernon Greene Other [employer] Other Start: 10-07-2023 Telephone encounter Vernon Greene [facility] Start: 10-06-2023 End: 10-06-2023 ambulatory Vernon Greene Other [employer] Other Start: 10-06-2023 Telephone encounter Vernon Greene [facility] Start: 10-01-2023 End: 10-01-2023 ambulatory Imad Asaad Other [employer] Other Start: 10-01-2023 Office outpatient vi sit 25 minutes Vernon rGeene [facility] Start: 10-01-2023 Telephone encounter Imchet Asachet [facility] Start: 10-01-2023 End: 10-01-2023 Patient encounter procedure [facility]- Start: 09-02-2023 End: 09-02-2023 ambulatory Vernon Greene Other [employer] Other Start: 09-02-2023 Telephone encounter Vernon Greene [facility] Start: 08-29-2023 End: 08-29-2023 ambulatory Vernon Greene Other [employer] Other Start: 08-29-2023 Office outpatient vi sit 25 minutes Vernon Greene [facility] Start: 08-29-2023 End: 08-29-2023 Patient encounter procedure [facility] Work Phone: Start: 08-12-2023 End: 08-12-2023 ambulatory Vernon Greene Other [employer] Other Start: 08-12-2023 Transitional care nicole kleinyesy srvc 14 day discharge Vrenon Greene [facility] Start: 08-12-2023 End: 08-12-2023 Patient encounter procedure [facility] Work Phone: Start: 08-06-2023 End: 08-06-2023 ambulatory Vernon Greene Other [employer] Other Start: 08-06-2023 Telephone encounter Vernon Greene [facility] Start: 08-01-2023 End: 08-01-2023 ambulatory Vernon Greene Other [employer] Other Start: 08-01-2023 Telephone encounter Vernon Greene [facility] Start: 07-30-2023 End: 07-30-2023 ambulatory Vernon Greene Other [employer] Other Start: 07-30-2023 Telephone encounter Vernon Greene [facility] Start: 07-16-2023 End: 07-16-2023 ambulatory Navneet Puga Other [employer] Other Start: 07-16-2023 Telephone encounter Navneet Ramires [facility] Start: 07-13-2023 End: 07-13-2023 ambulatory Vernon Greene Other [employer] Other Start: 07-13-2023 Telephone encounter Vernno Greene [facility] Start: 07-10-2023 End: 07-10-2023 ambulatory Vernon Greene Other [employer] Other Start: 07-10-2023 Office outpatient vi sit 25 minutes Vernon Greene [facility] Start: 07-10-2023 Telephone encounter Vernon Greene [facility] Start: 07-04-2023 Telephone encounter [facility] Start: 07-04-2023 End: 07-04-2023 ambulatory Erickson Nascimento Facility:[facility] Start: 07-04-2023 End: 07-04-2023 Admission to same day surgery center DO Vernon Greene Work Phone: [facility] [place] Start: 07-04-2023 End: 07-04-2023 ambulatory DO Vernon Greene Work Phone: [facility] Work Phone: Start: 07-02-2023 End: 07-02-2023 ambulatory Erickson Nascimento Other [employer] Other Start: 07-02-2023 Office outpatient vi sit 25 minutes Erickson WARE [facility] Start: 05-21-2023 End: 05-21-2023 ambulatory Vernon Greene Other [employer] Other Start: 05-21-2023 Telephone encounter [facility] Start: 05-20-2023 End: 05-20-2023 ambulatory Vernon Greene Other [employer] Other Start: 05-20-2023 Patient encounter procedure Vernon Greene [facility] Start: 02-27-2023 End: 02-27-2023 ambulatory Erickson Nascimento Other [employer] Other Start: 02-27-2023 Telephone encounter Erickson Ramires [facility] Start: 02-26-2023 End: 02-26-2023 ambulatory Erickson Nascimento Facility:[facility] Start: 02-26-2023 End: 02-26-2023 Patient encounter procedure DO Erickson Nascimento Work Phone: [facility] Start: 02-26-2023 End: 02-26-2023 ambulatory DO Erickson Nascimento Work Phone: [facility] Work Phone: Start: 02-26-2023 Office outpatient ne w 45 minutes Erickson Nascimento [facility] Start: 02-17-2023 End: 02-17-2023 ambulatory Vernon Ball Other [employer] Other Start: 02-17-2023 Office outpatient vi sit 25 minutes Vernon Ball [facility] Start: 01-09-2023 End: 01-09-2023 ambulatory Vernon Ball Other [employer] Other Start: 01-09-2023 Telephone encounter Vernon Ball [facility] Start: 12-24-2022 End: 12-24-2022 ambulatory Vernon Ball Other [employer] Other Start: 12-24-2022 Telephone encounter Vernon Ball [facility] Start: 11-26-2022 End: 11-26-2022 ambulatory Vernon Ball Other [employer] Other Start: 11-26-2022 Telephone encounter Vernon Ball [facility] Start: 11-25-2022 End: 11-26-2022 ambulatory VERNON BALL Facility:[facility] Start: 11-18-2022 End: 11-18-2022 ambulatory Vernon Ball Other [employer] Other Start: 11-18-2022 Office outpatient vi sit 25 minutes Vernon Ball [facility] Start: 11-15-2022 End: 11-16-[address] NONE LISTED REQUEST Facility:[facility] Start: 11-07-2022 End: 11-07-2022 ambulatory Vernon Ball Other [employer] Other Start: 11-07-2022 Telephone encounter Vernon Ball [facility] Start: 08-08-2022 End: 08-09-2022 ambulatory VERNON BALL Facility:[facility] Start: 05-15-2022 End: 05-16-2022 ambulatory VERNON BALL Facility:[facility] Start: 05-09-2022 End: 05-10-[address] NONE LISTED REQUEST Facility: Procedures Date Procedure Procedure Detail Performing Clinician Start: 05-17-2024 Radex ribs uni w/posteroant ch minimum 3 views Angeles Payan [employer]OR [employer] Work Phone: Start: 12-09-2023 Plain X-ray of bilat eral hands DO Vernon Greene Work Phone: Start: 12-09-2023 X-ray of both knees DO Vernon the [employer] Work Phone: Start: 07-04-2023 Open reduction of fracture with internal fixation DO Vernon [employer] Work Phone: Start: 02-26-2023 Plain X-ray of left elbow DO Erickson Nascimento Work Phone: Start: 05-15-2022 PSA screening VERNON [employer] Comment on above: Performed By: #### P [facility] #### [facility] [address] [place] [address] Dr. Ginger Keane Plan of Treatment Date Care Activity Detail Author Start: 11-24-2023 Hemolytic complement CH50 level [facility] Start: 11-24-2023 Hepatitis B core ant ibody measurement [facility] Start: 11-24-2023 [facility] Start: 10-20-2023 Patient referral [facility] Work Phone: Start: 07-04-2023 [facility] 24 hour urine [facility] Adenosine monophosph ate.cyclic [Moles/volume] in Serum or Plasma [facility] Albumin [Mass/volume ] in Serum or Plasma [facility] Albumin/Globulin ratio [facility] Complement C3 [Mass/ volume] in Serum or Plasma [facility] Complement C4 [Mass/ volume] in Serum or Plasma [facility] Comprehensive metabo lic 1999 panel - Serum or Plasma [facility] Comprehensive metabo lic 1999 panel - Serum or Plasma [facility] Electrophoresis: [id number] [facility] Electrophoresis: [id number] [facility] Electrophoresis: beta-globulin [facility] Electrophoresis: gamma globulin [facility] Globulin [Mass/volume] in Serum [facility] Hepatitis B virus elizabeth rface Ab [Presence] in Serum [facility] Hepatitis B virus elizabeth rface Ag [Presence] in Serum or Plasma by Immunoassay [facility] Hepatitis C virus Ig G Ab [Presence] in Serum or Plasma by Immunoassay [facility] Homogenous nuclear A b pattern [Titer] in Serum [facility] IgA [Mass/volume] in Serum or Plasma [facility] IgG [Mass/volume] in Serum or Plasma [facility] IgM [Mass/volume] in Serum or Plasma [facility] Immunofixation for Urine [facility] light chains.f ree [Mass/volume] in Serum [facility] light chains.f ree/Lambda light chains.free [Mass Ratio] in Serum [facility] Lambda light chains. free [Mass/volume] in Serum or Plasma [facility] Measurement of monoc lonal protein concentration [facility] Microalbumin [Mass/volume] in Urine [facility] Myeloperoxidase Ab [ Units/volume] in Serum by Immunoassay [facility] Neutrophil cytoplasm ic Ab.classic [Titer] in Serum by Immunofluorescence [facility] Neutrophil cytoplasm ic Ab.perinuclear.atypical [Titer] in Serum by Immunofluorescence [facility] Nuclear Ab [Titer] in Serum [facility] P-ANCA measurement [facility] Patient referral [facility] Work Phone: Protein [Mass/volume ] in Serum or Plasma [facility] Protein [Mass/volume] in Urine [facility] Proteinase 3 Ab [Uni ts/volume] in Serum by Immunoassay [facility] Rheumatoid factor [U nits/volume] in Serum or Plasma [facility] Serum immunofixation [facility] Immunizations Immunization Date Immunization Notes Care Provider Fa oma 05-25-2018 pneumococcal polysaccharide vaccine, 23 valent Vernon Greene Other [facility] 07-01-2017 diphtheria, tetanus toxoids and acellular pertussis vaccine, unspecified formulation Vernon Greene Other [facility] 07-01-2017 pneumococcal conjuga te vaccine, 13 cherri Vernon Laureen Other [facility] Payers Date Payer Category Payer Medicare [employer] MEDICARE ADVANTAGE [facility] MEDICARE ADVANTAGE [id number] 2023-Present [address] [place] [address] [id number] 1958 Medicare [id number] 1958 Self-pay 1950 Unknown [id number] 1950 Unknown [id number] 1950 Unknown [id number] 9 1950 Unknown [id number] 9 Unknown [id number] [id number] Unknown [id number] [id number] Unknown [id number] [id number] Unknown [id number] [id number] Unknown [id number] [id number] Unknown [id number] [id number] Unknown [id number] Unknown [id number] Social History Date Type Detail Facility Sex Assigned At [employer] Other Start: 1950 Sex Assigned At Male F [facility] Start: 07-04-2023 End: 07-04-2023 Tobacco smoking status NHIS Ex-smoker (finding) [facility] Start: 05-17-2024 Tobacco smoking stat us MTIS Never smoked tobacco [facility] Start: 05-17-2024 Tobacco use and exposure Smokeless tobacco non-user [facility] Start: 05-17-2024 Alcoholic beverage intake Current drinker of alcohol (finding) [facility] Start: 1950 Sex assigned at Not on file [facility] Start: 09-24-2024 Sex Male (finding) [facility] Goals Date Patient Goal Desired Activity /State Clinical Notes 11-18-2022 to 05-17-2024 Angeles Payan NP - 05/17/2024 1:40 PM EDT Note Date & Type Note Facility 05-17-2024 History of Presen t illness Narrative HPI: Historian of HPI: patient and family Mariano Gutierrez is a 73 y.o. male who presents today to the Urgent Care with the following complaints and denials due lower left-sided, lower, and upper which has been present for 3 day(s). Pt states he fell at home in his driveway. Pt rates his pain 6 out of 10 when he stands up from a sitting position. C/O Denies Symptom Comments [x] [] swelling [] [x] ecchymosis [] [x] erythema [] [x] tingling [] [x] numbness [x] [] Pain radiation Upper left chest to lower left back [] [x] Weakness [] [x] Decreased ROM [x] [] Trauma Fell at home Additional Comments: pt has not taken any OTC medications Pt admits to heat application to the affected area Pt denies cold application to the affected area Denies increase in SOB, abd pain or dizziness. Denies hip, leg or shoulder pain. ROS: A complete system ROS was performed and negative aside from the pertinent positives noted in the HPI and PE. Examination General Examination: GENERAL EXAMINATION: alert, oriented, normal affect, well-appearing, in no acute distress, well developed, well nourished. HEAD: normocephalic, atraumatic. EYES: sclera non-icteric. NECK/THYROID: FROM SKIN: superficial abrasion left lateral and posterior lateral rib cage w/o s/s infection. HEART: no murmurs, regular rate and rhythm, S1, S2 normal. LUNGS: diminished breath sounds t/o. No rales or rub. Resp even and nonlabored. No nasal flaring, retractions or stridor. M/S. No left hip, SI joint, lumbar, thoracic or cervical spinal tenderness. No cervical or lumbar paraspinal tenderness. There is tenderness along the posterior lateral ribs approx 9-12. No tenderness over sternum. EXTREMITIES: no edema, no cyanosis. PERIPHERAL PULSES: normal. PSYCH: alert, oriented cooperative with exam cognitive function intact. 1. Closed fracture of multiple ribs of left side, initial encounter Xray left ribs and chest obtained; prelim interp pos for displaced fx of 5th and 6th ribs and questionable 4th rib fx. Discussed cough and deep breaths as directed. Warm soaks as directed. No lifting/pushing/pulling. Immediate eval if new, worsening or warning s/s otherwise follow up with PCP this week for recheck. 2. Rib pain on left side See 1. - XR ribs 2 views left w chest anteroposterior documented in this encounter [facility] 10-06-2023 Evaluation note Encounter Date Diagnosis Assessment Notes Oct, Interstitial lung disease (ICD-10 - J84.9) Oct, Hypoxia (ICD-10 - R09.02) Oct, Nicotine dependence, cigarettes, in remission (ICD-10 - F17.211) Age started 17 1 ppd Age quit 52 [employer] Other 01-31-2024 Evaluation note* Encounter Date Diagnosis [...] as needed. CXR, f/u from COVID infection [employer] Other 12-29-2023 Evaluation note* Encounter Date Diagnosis [...] 1 ppd Age quit 52 Continue abstinence [employer] Other [id number] Evaluation note* Encounter Date Diagnosis Assessment Notes [...] and hypoxia. MDI and oxygen for now. [employer] Other 12-01-2023 Evaluation note* Encounter Date Diagnosis Assessment Notes Treatment Notes Treatment Clinical Notes Aug, Weight loss (ICD-10 - R63.4) [employer] Other 11-09-2023 Evaluation note* Encounter Date Diagnosis [...] or bowel habits. No melena or hematochezia [employer] Other 11-01-2023 Evaluation note* Encounter Date Diagnosis [...] done prior to surgical procedure to limit eliana-operative risks. I have discussed the planned procedure, how and who performs the procedure, and the personnel involved. Cardiovascular, pulmonary, and other life threatening episodes can occur during surgery although there is a low risk of these happening. Surgical risks including bleeding, neurovascular injury, wound closure problems and infection were discussed. Eliana-operative risks including infection, bleeding, wound healing problems, [...] poor healing. I have advised against the intermediate use of narcotic pain medication. I have [...] Jul, Elbow mass, left (ICD-10 - R22.32) [employer] Other 09-19-2023 Evaluation note* Encounter Date Diagnosis [...] PSA (prostate specific antigen) (ICD-10 - Z12.5) [employer] Other 06-28-2023 Evaluation note* Encounter Date Diagnosis [...] as documented in the electronic medical record. [employer] Other 06-19-2023 Evaluation note* Encounter Date Diagnosis [...] wks. Nontender and mobile. Refer to Orthopedics [facility] [employer] Other 03-27-2023 NotePROCEDURE: XR KNEE LT 3V [...] Electronically authenticated by: VINNY MURILLO Date: 2022-11-25 10:55[facility]03-20-2023 Evaluation note* Encounter Date Diagnosis [...] Initiate PPI and if no improvement, EGD [employer] Other Evaluation noteNo InformationNort [employer] Other Evaluation noteNo assessment information available [facility] Work Phone: Evaluation note* Diagnosis Onset Date Resolution Status Inflammatory polyarthritis a cute [facility] Work Phone: Evaluation note* Diagnosis Onset Date Resolution Status ASHD (arteriosclerotic heart disease) acute [id number] acute Hypoxia acute ILD (interstitial lung disease) acute Inflammatory polyarthritis a cute Nicotine dependence, cigarettes, in remission acute Sinus tachycardia acute [facility] Work Phone: Evaluation note* Diagnosis Onset Date Resolution Status ASHD [...] diabetes mellitus with hyperglycemia acute [facility] Work Phone: Evaluation note* Diagnosis Onset Date Resolution Status ASHD (arteriosclerotic heart disease) acute Hypercholesterolemia acute Hypoxia acute ILD (interstitial lung disease) acute Medicare annual wellness visit, subsequent acute Mucopurulent chronic bronchitis acute Nicotine dependence, cigarettes, in remission acute 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 acute Screening PSA (prostate specific antigen) acute Type 2 diabetes mellitus with hyperglycemia acute [facility] Work Phone: Evaluation note* Diagnosis Closed fracture of multiple ribs of left side, initial encounter- Primary Rib pain on left side [facility] Diagnosis Onset Date Resolution Status Admit Date ASHD (arteriosclerotic heart disease) acute September 24 11:26am Hypercholesterolemia acute Sabino idalia 2024 11:26am Hypoxia acute September 24, 2024 11:26am ILD (interstitial lung disease) acut e September 24, 2024 11:26am Nicotine dependence, cigaret rickie, in remission acute September 24 11:26am 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 acute September 24 11:26am Type 2 diabetes mellitus wit h hyperglycemia acute September 24 11:26am [facility] Work Phone: History general Narrative - Reported* [...] long-term current use of insulin Surgical History [facility] PTCA/STENT 2002 Surgical History [facility] 2006 Hospitalization History SEE SURGICAL [employer] Other History general Narrative - Reported* Type [...] long-term current use of insulin Surgical History [facility] PTCA/STENT 2002 Surgical History [facility] 2006 Surgical History Excision left elbow mass 3 Hospitalization History SEE SURGICAL [employer] Other Hospital Discharge instructions Additional Instructions Orthopedic [...] prescribed. You may take Motrin or Tylenol [id number] if you wish. Follow-up in [address] [facility] [address] [place] [address] [place] [address] [phone] Work Phone: Reason for referral (narrative)* Reason *Waiting for appt Referral for recurrent left Olecranon bursa and SC nodule Diagnosis 1 Olecranon bursitis o f left elbow (M70.22) Diagnosis 2 Subcutaneous nodule (R22.9) Referral Organization [facility] Laureen hampton Referring Provider First Name Vernon Referring Provider Last Name Laureen Referring Provider Specialty Internal Me dicine Referred Organization [facility] Referred Provider Erickson Nascimento Referred Address [address] [place],[address] Referred Provider Specialty Orthopedic S urgery Referral [...] 02/17/2023 11:21:37 AM >received today, sent P2P [employer] Other Reason for referral (narrative)* Reason Referral for screeni ng colonoscopy and EGD Diagnosis 1 Unexplained weight l oss (R63.4) Diagnosis 2 Epigastric discomfor t (R10.13) Diagnosis 3 Serum lipase elevati on (R74.8) Diagnosis 4 Colon cancer screeni ng (Z12.11) Referral Organization [facility] Laureen hampton Referring Provider First Name Vernon Referring Provider Last Name Laureen Referring Provider Specialty Internal Nj leonardo Referred Organization [facility] Referred Provider Rochelle Woodard Referred Address [address] [place], [place],[address] Referred Provider Specialty Gastroentero logy Referral Priority [...] be done within the next 2-3 wks. [employer] Other Summary Purpose Family History Relationship Condition [...] for Visit ASHD (arteriosclerot ic heart disease) [id number] Hypoxia ILD (interstitial lung disease) Inflammatory polyarthritis Nicotine dependence, cigarettes, in remission Sinus tachycardia Chief Complaint 4 Month Follow Up 1 week M35.9;Z11.59;Z79.899;D89.2 Hand pain Knee Pain Reason for Visit ASHD (arteriosclerot ic heart disease) [id number] Hypoxia ILD (interstitial lung disease) Inflammatory polyarthritis [...] antigen) Type 2 diabetes mellitus with hyperglycemia Chief Complaint Admit Date 4 month f/u September 24, 2024 1 1:26am Reason for Visit Admit Date ASHD (arteriosclerotic heart disease) Shady griffin 2024 11:26am Hypercholesterolemia September 24, 2024 11:26am Hypoxia September 24, 2024 1 1:26am ILD (interstitial lung disease) September 24, 2024 11:26am Nicotine dependence, cigarettes, in claudia ssion September 24, 2024 11:26am 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 September 24, 2024 11:26am Type 2 diabetes mellitus with hyperglyce jeffrey September 24, 2024 11:26am Additional Source Comments REASON FOR VISIT (unrecogniz [...] CREATED AUTHOR AUTHOR'S ORGANIZ ATION 01/10/2024 [facility] DATE CREATED AUTHOR AUTHOR'S ORGANIZ ATION 05/23/2024 [facility] d[facility] Specialists EPIC Care Teams (unrecognized sec tion and content) Team Status: Active Member Role Status Dates Vernon Greene DO Primary Care Provider Active Team Status: Active Member Role Status Dates Vernon Greene DO Primary Care Provide r, Attending [...] Status Dates Vernon Greene DO Primary Care Provide r, Attending Provider Active Start: December 29, 2023 Team Status: Inactive Member Role Status Dates Vernon Greene DO Primary Care Provide r, Attending Provider Active Start: December 30, 2023 End: December 30, 2023 Team Status: Inactive Member Role Status Dates Erickson Nascimento , DO Attending Provider Active Team Status: Inactive Member Role Status Dates Erickson Nascimento DO Attending Provider Active Vernon Greene , DO Primary Care Provider Active Team Status: Inactive Member Role Status Dates Vernon Greene DO Attending Provider Active Sta rt: August 12, 2023 End: August 12, 2023 Team Status: Inactive Member Role Status Dates Vernon Greene DO Attending Provider Active Sta rt: August 29, 2023 End: August 29, 2023 Team Status: Inactive Member Role Status Dates Vernon Greene DO Attending Provider Active Sta rt: October 01, 2023 End: October 01, 2023 Team Status: Active Member Role Status Dates Vernon Greene DO Primary Care Provider Active Start: March 11, 2024 Carlos Guzmán MD Attending Provider Active St art: March 11, 2024 Team Status: Inactive Member Role Status Kinga Greene DO Primary Care Provide r, Attending Provider Active Start: May 26, 2024 End: May 26, 2024 Team Status: Active Member Role Status Dates Vernon Greene DO Primary Care Provider Active Start: July 01, 2024 Carlos Guzmán MD Attending Provider Active St art: July 01, 2024 Team Status: Active Member Role Status Dates Vernon Greene DO Primary Care Provider Active Start: July 08, 2024 Carlos Guzmán MD Attending Provider Active St art: July 08, 2024 Team Status: Active Member Role Status Dates Vernon Greene DO Primary Care Provider Active Start: July 15, 2024 Carlos Guzmán MD Attending Provider Active St art: July 15, 2024 Team Status: Active Member Role Status Dates Vernon Greene DO Primary Care Provider Active Start: August 03, 2024 Carlos Guzmán MD Attending Provider Active St art: August 03, 2024 Team Status: Active Member Role Status Dates Vernon Greene DO Primary Care Provider Active Start: August 17, 2024 Carlos Guzmán MD Attending Provider Active St art: August 17, 2024 Team Status: Inactive Member Role Status Dates Vernon Greene DO Primary Care Provide r, Attending Provider Active Start: September 24, 2024 End: September 24, 2024 Goals (unrecognized section and content) Goals [...] BE BASED ON THE PRIMARY CLINICAL RECORDS. [facility] [employer] [facility] provides no warranty or guarantee of the accuracy or completeness of information in this document.
[2024-09-28 14:56] LABS: Estimated Average Glucose 140 mg/dL; Glycohemoglobin A1C 6.5 % (4.5-6.2)
== END 2024-09-28 13:28 | disposition home or self-care (01) ==
LOC: LAB 13:29
PROVIDERS: PCP Internal Medicine; Visit Provider Internal Medicine
DX: E11.65 Type 2 diabetes mellitus with hyperglycemia (principal)
CPT/HCPCS: 36415; 83036

== ENCOUNTER 2024-09-28 13:34 | Outpatient (OUT) | payer MEDICARE, SELFPAY ==
--- OUTSIDE RECORDS SUMMARY | 2024-09-28 13:56 | XMS_ITS | CCD ---
Author Organization [facility] Care Team Providers Care Hog Ringer Name Role Phone Vernon Greene Unavailable VERNON [...] Provider DO Vernon Greene Primary Care Provider Navneet Puga Unavailable Asaad, Imad Unavailable DO Vernon Greene Primary Care Provider MD Carlos Guzmán Attending Provider Carlos Guzmán Admitting Unavailable Carlos Guzmán Attending Unavailable Vernon Greene Primary Care Unavailable Carlos Guzmán Admitting Unavailable Calros Guzmán Attending Unavailable Vernon Greene Primary Care [...] Class(es) Dates Sig (Normalized) Sig (Original) Accu-Chek Nuyr Plus - (20 sources) Accu-Chek Nury Plus - USE 1 STRIP TO TEST BLOOD SUGAR ONCE EVERY DAY for 90 Active [id number] 200 actuat albuterol 0.09 mg/actuat metered dose [...] 11:00pm Start: 11-18-2022 take 1 capsule by [facility] once daily Omeprazole 40 MG 1 [...] Coronary arteriosclerosis; Translations: [Atherosclerotic heart disease of [place] coronary artery without angina pectoris] Chronic Diabetes [...] sources) H/O: high risk medication; Translations: [Other correction (current) drug therapy] Episodic Other aftercare (2 sources) Other correction (current) drug therapy; 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 2-2.0 [facility] Eosinophils/100 WBC Auto (Bl d)on 08-17-2024 Eosinophils/100 WBC (Bld) Automated eosi nophil % 0.9-7.0 [facility] Erythrocyte distribution wid th Auto (RBC) [Ratio]on 08-17-2024 Erythrocyte distribution width (RBC) [Ratio] Erythrocyte distribution width [Ratio] by Automated count 11.0-15.0 [facility] Estimated glomerular filtrat ion rate (GFR) non- Americanon 08-17-2024 GFR/1.73 sq M.predicted among non-blacks MDRD (S/P/Bld) [Vol rate/Area] Estimated glomerular filtration rate (GFR) non- >=60 mL/min/1.7 3m 2 [facility] Hematocrit Auto (Bld) [Volum e fraction]on 08-17-2024 Hematocrit (Bld) [Volume fraction] Hematocrit [Volume Fraction] of Blood by Automated count Low 42.0-54.0 [facility] Hemoglobin [Mass/volume] in Bloodon 08-17-2024 Hemoglobin (Bld) [Mass/Vol] Hemoglobin [Mass/volume] in Blood 14.0-18.0 [facility] Laboratory - Chemistry and C hemistry - challengeon 08-17-2024 Albumin [Mass/Vol] 3.4 g/dL 3.4-5.0 [facility] ALP [Catalytic activity/Vol] 72 U/L 46-116 [facility] ALT [Catalytic activity/Vol] 16 U/L 16-63 [facility] AST [Catalytic activity/Vol] 11 U/L Low 15-37 [facility] Bilirubin [Mass/Vol] 0.6 mg/dL 0.2-1.[address] [facility] Creatinine [Mass/Vol] 1.17 mg/dL 0.70-1.30 [facility] GFR/1.73 sq M.predicted MDRD (S/P/Bld) [Vol rate/Area] mL/min/{1.73_m2} >=60 mL/min/1.7 3m 2 [facility] Laboratory - Hematology and Cell countson 08-17-2024 ESR (Bld) [Velocity] 21 mm/h High <=[address] [facility] Immature granulocytes/100 WBC (Bld) 0.2 % 0.0-0.5 [facility] Leukocytes [#/volume] correc yuniel for nucleated erythrocytes in Blood by Automated counon 08-17-2024 WBC corrected for nucl RBC Auto (Bld) [#/Vol] Leukocytes [#/volume] corrected for nucleated erythrocytes in Blood by Automated coun 4.0-11.0 [facility] Lymphocytes Auto (Bld) [#/Vo l]on 08-17-2024 Lymphocytes (Bld) [#/Vol] Lymphocytes [#/volume] in Blood by Automated count 1.2-3.8 [facility] Lymphocytes/100 WBC Auto (Bl d)on 08-17-2024 Lymphocytes/100 WBC (Bld) Lymphocytes/10 0 leukocytes in Blood by Automated count 20.5-60.0 [facility] MCH Auto (RBC) [Entitic mass ]on 08-17-2024 MCH (RBC) [Entitic mass] MCH [Entitic ma ss] by Automated count 25.9-34.0 [facility] MCHC Auto (RBC) [Mass/Vol]on 08-17-2024 MCHC (RBC) [Mass/Vol] MCHC [Mass/volume] by Automated count 29.9-35.2 [facility] MCV Auto (RBC) [Entitic vol] on 08-17-2024 MCV (RBC) [Entitic vol] MCV [Entitic vol ume] by Automated count 80.0-94.0 [facility] Monocytes Auto (Bld) [#/Vol] on 08-17-2024 Monocytes (Bld) [#/Vol] Automated blood monocyte count 0.3-0.8 [facility] Monocytes/100 WBC Auto (Bld) on 08-17-2024 Monocytes/100 WBC (Bld) Automated monocyte % 1. 7-12.0 [facility] Neutrophils Auto (Bld) [#/Vo l]on 08-17-2024 Neutrophils (Bld) [#/Vol] Neutrophils [#/volume] in Blood by Automated count High 1.4-6.5 [facility] Neutrophils/100 WBC Auto (Bl d)on 08-17-2024 Neutrophils/100 WBC (Bld) Automated neut rophil % 43.0-75.0 [facility] No Panel Informationon 08-17 Eosinophils # (Auto) 0.2 10 3/uL 0.0-0.7 [facility] Immature Granulocyte # (Auto) 0.02 10 3/uL 0.00-0.03 [facility] Platelet mean volume Auto (B ld) [Entitic vol]on 08-17-2024 Platelet mean volume (Bld) [Entitic vol] Platelet mean volume [Entitic volume] in Blood by Automated count 9.5-13.5 [facility] Platelets Auto (Bld) [#/Vol] on 08-17-2024 Platelets (Bld) [#/Vol] Platelets [#/vol ume] in Blood by Automated count 150-450 [facility] RBC Auto (Bld) [#/Vol]on RBC (Bld) [#/Vol] Erythrocytes [#/volume] in Blood by Automated count Low 4.70-6.10 [facility] Basophils Auto (Bld) [#/Vol] on 08-03-2024 Basophils (Bld) [#/Vol] Automated basoph il count 0.0-0.1 [facility] Basophils/100 WBC Auto (Bld) on 08-03-2024 Basophils/100 WBC (Bld) Automated basophil % 0. 2-2.0 [facility] Eosinophils/100 WBC Auto (Bl d)on 08-03-2024 Eosinophils/100 WBC (Bld) Automated eosi nophil % 0.9-7.0 [facility] Erythrocyte distribution wid th Auto (RBC) [Ratio]on 08-03-2024 Erythrocyte distribution width (RBC) [Ratio] Erythrocyte distribution width [Ratio] by Automated count 11.0-15.0 [facility] Hematocrit Auto (Bld) [Volum e fraction]on 08-03-2024 Hematocrit (Bld) [Volume fraction] Hematocrit [Volume Fraction] of Blood by Automated count Low 42.0-54.0 [facility] Hemoglobin [Mass/volume] in Bloodon 08-03-2024 Hemoglobin (Bld) [Mass/Vol] Hemoglobin [Mass/volume] in Blood Low 14.0-18.0 [facility] Laboratory - Hematology and Cell countson 08-03-2024 ESR (Bld) [Velocity] 22 mm/h High <=[address] [facility] Immature granulocytes/100 WBC (Bld) 0.3 % 0.0-0.5 [facility] Leukocytes [#/volume] correc yuniel for nucleated erythrocytes in Blood by Automated counon 08-03-2024 WBC corrected for nucl RBC Auto (Bld) [#/Vol] Leukocytes [#/volume] corrected for nucleated erythrocytes in Blood by Automated coun 4.0-11.0 [facility] Lymphocytes Auto (Bld) [#/Vo l]on 08-03-2024 Lymphocytes (Bld) [#/Vol] Lymphocytes [#/volume] in Blood by Automated count 1.2-3.8 [facility] Lymphocytes/100 WBC Auto (Bl d)on 08-03-2024 Lymphocytes/100 WBC (Bld) Lymphocytes/10 0 leukocytes in Blood by Automated count 20.5-60.0 [facility] MCH Auto (RBC) [Entitic mass ]on 08-03-2024 MCH (RBC) [Entitic mass] MCH [Entitic ma ss] by Automated count 25.9-34.0 [facility] MCHC Auto (RBC) [Mass/Vol]on 08-03-2024 MCHC (RBC) [Mass/Vol] MCHC [Mass/volume] by Automated count 29.9-35.2 [facility] MCV Auto (RBC) [Entitic vol] on 08-03-2024 MCV (RBC) [Entitic vol] MCV [Entitic vol ume] by Automated count 80.0-94.0 [facility] Monocytes Auto (Bld) [#/Vol] on 08-03-2024 Monocytes (Bld) [#/Vol] Automated blood monocyte count 0.3-0.8 [facility] Monocytes/100 WBC Auto (Bld) on 08-03-2024 Monocytes/100 WBC (Bld) Automated monocyte % 1. 7-12.0 [facility] Neutrophils Auto (Bld) [#/Vo l]on 08-03-2024 Neutrophils (Bld) [#/Vol] Neutrophils [#/volume] in Blood by Automated count 1.4-6.5 [facility] Neutrophils/100 WBC Auto (Bl d)on 08-03-2024 Neutrophils/100 WBC (Bld) Automated neut rophil % 43.0-75.0 [facility] No Panel Informationon 08-03 Eosinophils # (Auto) 0.1 10 3/uL 0.0-0.7 [facility] Immature Granulocyte # (Auto) 0.03 10 3/uL 0.00-0.03 [facility] Platelet mean volume Auto (B ld) [Entitic vol]on 08-03-2024 Platelet mean volume (Bld) [Entitic vol] Platelet mean volume [Entitic volume] in Blood by Automated count 9.5-13.5 [facility] Platelets Auto (Bld) [#/Vol] on 08-03-2024 Platelets (Bld) [#/Vol] Platelets [#/vol ume] in Blood by Automated count 150-450 [facility] RBC Auto (Bld) [#/Vol]on RBC (Bld) [#/Vol] Erythrocytes [#/volume] in Blood by Automated count Low 4.70-6.10 [facility] Basophils Auto (Bld) [#/Vol] on 07-15-2024 Basophils (Bld) [#/Vol] Automated basoph il count 0.0-0.1 [facility] Basophils/100 WBC Auto (Bld) on 07-15-2024 Basophils/100 WBC (Bld) Automated basophil % 0. 2-2.0 [facility] Eosinophils/100 WBC Auto (Bl d)on 07-15-2024 Eosinophils/100 WBC (Bld) Automated eosi nophil % 0.9-7.0 [facility] Erythrocyte distribution wid th Auto (RBC) [Ratio]on 07-15-2024 Erythrocyte distribution width (RBC) [Ratio] Erythrocyte distribution width [Ratio] by Automated count 11.0-15.0 [facility] Hematocrit Auto (Bld) [Volum e fraction]on 07-15-2024 Hematocrit (Bld) [Volume fraction] Hematocrit [Volume Fraction] of Blood by Automated count Low 42.0-54.0 [facility] Hemoglobin [Mass/volume] in Bloodon 07-15-2024 Hemoglobin (Bld) [Mass/Vol] Hemoglobin [Mass/volume] in Blood 14.0-18.0 [facility] Laboratory - Hematology and Cell countson 07-15-2024 Immature granulocytes/100 WBC (Bld) 0.2 % 0.0-0.5 [facility] Leukocytes [#/volume] correc yuniel for nucleated erythrocytes in Blood by Automated counon 07-15-2024 WBC corrected for nucl RBC Auto (Bld) [#/Vol] Leukocytes [#/volume] corrected for nucleated erythrocytes in Blood by Automated coun 4.0-11.0 [facility] Lymphocytes Auto (Bld) [#/Vo l]on 07-15-2024 Lymphocytes (Bld) [#/Vol] Lymphocytes [#/volume] in Blood by Automated count 1.2-3.8 [facility] Lymphocytes/100 WBC Auto (Bl d)on 07-15-2024 Lymphocytes/100 WBC (Bld) Lymphocytes/10 0 leukocytes in Blood by Automated count 20.5-60.0 [facility] MCH Auto (RBC) [Entitic mass ]on 07-15-2024 MCH (RBC) [Entitic mass] MCH [Entitic ma ss] by Automated count 25.9-34.0 [facility] MCHC Auto (RBC) [Mass/Vol]on 07-15-2024 MCHC (RBC) [Mass/Vol] MCHC [Mass/volume] by Automated count High 29.9-35.2 [facility] MCV Auto (RBC) [Entitic vol] on 07-15-2024 MCV (RBC) [Entitic vol] MCV [Entitic vol ume] by Automated count 80.0-94.0 [facility] Monocytes Auto (Bld) [#/Vol] on 07-15-2024 Monocytes (Bld) [#/Vol] Automated blood monocyte count High 0.3-0.8 [facility] Monocytes/100 WBC Auto (Bld) on 07-15-2024 Monocytes/100 WBC (Bld) Automated monocyte % 1. 7-12.0 [facility] Neutrophils Auto (Bld) [#/Vo l]on 07-15-2024 Neutrophils (Bld) [#/Vol] Neutrophils [#/volume] in Blood by Automated count 1.4-6.5 [facility] Neutrophils/100 WBC Auto (Bl d)on 07-15-2024 Neutrophils/100 WBC (Bld) Automated neut rophil % 43.0-75.0 [facility] No Panel Informationon 07-15 Eosinophils # (Auto) 0.2 10 3/uL 0.0-0.7 [facility] Immature Granulocyte # (Auto) 0.02 10 3/uL 0.00-0.03 [facility] Platelet mean volume Auto (B ld) [Entitic vol]on 07-15-2024 Platelet mean volume (Bld) [Entitic vol] Platelet mean volume [Entitic volume] in Blood by Automated count 9.5-13.5 [facility] Platelets Auto (Bld) [#/Vol] on 07-15-2024 Platelets (Bld) [#/Vol] Platelets [#/vol ume] in Blood by Automated count 150-450 [facility] RBC Auto (Bld) [#/Vol]on RBC (Bld) [#/Vol] Erythrocytes [#/volume] in Blood by Automated count Low 4.70-6.10 [facility] Basophils Auto (Bld) [#/Vol] on 07-08-2024 Basophils (Bld) [#/Vol] Automated basoph il count 0.0-0.1 [facility] Basophils/100 WBC Auto (Bld) on 07-08-2024 Basophils/100 WBC (Bld) Automated basophil % 0. 2-2.0 [facility] Eosinophils/100 WBC Auto (Bl d)on 07-08-2024 Eosinophils/100 WBC (Bld) Automated eosi nophil % 0.9-7.0 [facility] Erythrocyte distribution wid th Auto (RBC) [Ratio]on 07-08-2024 Erythrocyte distribution width (RBC) [Ratio] Erythrocyte distribution width [Ratio] by Automated count 11.0-15.0 [facility] Estimated glomerular filtrat ion rate (GFR) non- Americanon 07-08-2024 GFR/1.73 sq M.predicted among non-blacks MDRD (S/P/Bld) [Vol rate/Area] Estimated glomerular filtration rate (GFR) non- Low >=60 mL/min/1.7 3m 2 [facility] Hematocrit Auto (Bld) [Volum e fraction]on 07-08-2024 Hematocrit (Bld) [Volume fraction] Hematocrit [Volume Fraction] of Blood by Automated count Low 42.0-54.0 [facility] Hemoglobin [Mass/volume] in Bloodon 07-08-2024 Hemoglobin (Bld) [Mass/Vol] Hemoglobin [Mass/volume] in Blood 14.0-18.0 [facility] Laboratory - Chemistry and C hemistry - challengeon 07-08-2024 Bilirubin Ql (U) Negative NEGATIVE [facility] Glucose (U) [Mass/Vol] mg/dL Abnormal [facility] Ket[facility] Ql (U) TRACE mg/dL Abnormal NEGATIVE [facility] pH (U) 5.5 [pH] 5.0-9.0 [facility] Specific gravity (U) [Rel density] 1.025 1.005-1.02 5 [facility] Urobilinogen Qn (U) 0.2 {Denis'U}/dL 0.2-1.0 [facility] Albumin [Mass/Vol] 3.5 g/dL 3.4-5.0 [facility] ALP [Catalytic activity/Vol] 81 U/L 46-116 [facility] ALT [Catalytic activity/Vol] 22 U/L 16-63 [facility] AST [Catalytic activity/Vol] 9 U/L Low 15-37 [facility] Bilirubin [Mass/Vol] 0.7 mg/dL 0.2-1.[address] [facility] Creatinine [Mass/Vol] 1.21 mg/dL 0.70-1.30 [facility] GFR/1.73 sq M.predicted MDRD (S/P/Bld) [Vol rate/Area] mL/min/{1.73_m2} >=60 mL/min/1.7 3m 2 [facility] - Hematology and Cell countson 07-08-2024 ESR (Bld) [Velocity] 20 mm/h <=[address] [facility] Immature granulocytes/100 WBC (Bld) 0.2 % 0.0-0.5 [facility] - Specimen inform ationon 07-08-2024 Appearance (U) CLEAR CLEAR [facility] Color (U) LT. YELLOW YELLOW [facility] - Urinalysison Amorphous sediment LM Ql (Urine sed) RARE [facility] Leukocyte esterase Test strip Ql (U) Negative NEGATIVE [facility] Mucus Ql (Urine sed) NONE SEEN NONE SEEN [facility] Nitrite Ql (U) Negative NEGATIVE [facility] Protein Ql (U) 30 mg/dL Abnormal NEG/TRACE [facility] Leukocytes [#/volume] correc yuniel for nucleated erythrocytes in Blood by Automated counon 07-08-2024 WBC corrected for nucl RBC Auto (Bld) [#/Vol] Leukocytes [#/volume] corrected for nucleated erythrocytes in Blood by Automated coun 4.0-11.0 [facility] Lymphocytes Auto (Bld) [#/Vo l]on 07-08-2024 Lymphocytes (Bld) [#/Vol] Lymphocytes [#/volume] in Blood by Automated count 1.2-3.8 [facility] Lymphocytes/100 WBC Auto (Bl d)on 07-08-2024 Lymphocytes/100 WBC (Bld) Lymphocytes/10 0 leukocytes in Blood by Automated count 20.5-60.0 [facility] MCH Auto (RBC) [Entitic mass ]on 07-08-2024 MCH (RBC) [Entitic mass] MCH [Entitic ma ss] by Automated count 25.9-34.0 [facility] MCHC Auto (RBC) [Mass/Vol]on 07-08-2024 MCHC (RBC) [Mass/Vol] MCHC [Mass/volume] by Automated count 29.9-35.2 [facility] MCV Auto (RBC) [Entitic vol] on 07-08-2024 MCV (RBC) [Entitic vol] MCV [Entitic vol ume] by Automated count 80.0-94.0 [facility] Monocytes Auto (Bld) [#/Vol] on 07-08-2024 Monocytes (Bld) [#/Vol] Automated blood monocyte count 0.3-0.8 [facility] Monocytes/100 WBC Auto (Bld) on 07-08-2024 Monocytes/100 WBC (Bld) Automated monocyte % 1. 7-12.0 [facility] Neutrophils Auto (Bld) [#/Vo l]on 07-08-2024 Neutrophils (Bld) [#/Vol] Neutrophils [#/volume] in Blood by Automated count 1.4-6.5 [facility] Neutrophils/100 WBC Auto (Bl d)on 07-08-2024 Neutrophils/100 WBC (Bld) Automated neut rophil % 43.0-75.0 [facility] No Panel Informationon 07-08 Urine Bacteria NONE SEEN #/HPF NONE SEEN [facility] Urine Occult Blood Negative NEGATIVE [facility] Urine Other Casts NONE SEEN #/LPF NONE SEEN [facility] Urine Other Crystals Seen #/HPF Abnormal None Seen [facility] Urine RBC NONE SEEN #/HPF 0-2 [facility] Urine Squamous Epithelial Cells NONE SEEN #/LPF NONE/RARE [facility] Urine WBC NONE SEEN #/HPF NONE SEEN [facility] C-Reactive Protein, Quantitative <0.50 mg/dL <=0.50 [facility] Eosinophils # (Auto) 0.1 10 3/uL 0.0-0.7 [facility] Immature Granulocyte # (Auto) 0.02 10 3/uL 0.00-0.03 [facility] Platelet mean volume Auto (B ld) [Entitic vol]on 07-08-2024 Platelet mean volume (Bld) [Entitic vol] Platelet mean volume [Entitic volume] in Blood by Automated count 9.5-13.5 [facility] Platelets Auto (Bld) [#/Vol] on 07-08-2024 Platelets (Bld) [#/Vol] Platelets [#/vol ume] in Blood by Automated count 150-450 [facility] RBC Auto (Bld) [#/Vol]on RBC (Bld) [#/Vol] Erythrocytes [#/volume] in Blood by Automated count Low 4.70-6.10 [facility] Basophils Auto (Bld) [#/Vol] on 07-01-2024 Basophils (Bld) [#/Vol] Automated basoph il count 0.0-0.1 [facility] Basophils/100 WBC Auto (Bld) on 07-01-2024 Basophils/100 WBC (Bld) Automated basophil % 0. 2-2.0 [facility] Eosinophils/100 WBC Auto (Bl d)on 07-01-2024 Eosinophils/100 WBC (Bld) Automated eosi nophil % 0.9-7.0 [facility] Erythrocyte distribution wid th Auto (RBC) [Ratio]on 07-01-2024 Erythrocyte distribution width (RBC) [Ratio] Erythrocyte distribution width [Ratio] by Automated count 11.0-15.0 [facility] Hematocrit Auto (Bld) [Volum e fraction]on 07-01-2024 Hematocrit (Bld) [Volume fraction] Hematocrit [Volume Fraction] of Blood by Automated count Low 42.0-54.0 [facility] Hemoglobin [Mass/volume] in Bloodon 07-01-2024 Hemoglobin (Bld) [Mass/Vol] Hemoglobin [Mass/volume] in Blood Low 14.0-18.0 [facility] Laboratory - Hematology and Cell countson 07-01-2024 Immature granulocytes/100 WBC (Bld) 0.2 % 0.0-0.5 [facility] Leukocytes [#/volume] correc yuniel for nucleated erythrocytes in Blood by Automated counon 07-01-2024 WBC corrected for nucl RBC Auto (Bld) [#/Vol] Leukocytes [#/volume] corrected for nucleated erythrocytes in Blood by Automated coun 4.0-11.0 [facility] Lymphocytes Auto (Bld) [#/Vo l]on 07-01-2024 Lymphocytes (Bld) [#/Vol] Lymphocytes [#/volume] in Blood by Automated count 1.2-3.8 [facility] Lymphocytes/100 WBC Auto (Bl d)on 07-01-2024 Lymphocytes/100 WBC (Bld) Lymphocytes/10 0 leukocytes in Blood by Automated count 20.5-60.0 [facility] MCH Auto (RBC) [Entitic mass ]on 07-01-2024 MCH (RBC) [Entitic mass] MCH [Entitic ma ss] by Automated count 25.9-34.0 [facility] MCHC Auto (RBC) [Mass/Vol]on 07-01-2024 MCHC (RBC) [Mass/Vol] MCHC [Mass/volume] by Automated count 29.9-35.2 [facility] MCV Auto (RBC) [Entitic vol] on 07-01-2024 MCV (RBC) [Entitic vol] MCV [Entitic vol ume] by Automated count High 80.0-94.0 [facility] Monocytes Auto (Bld) [#/Vol] on 07-01-2024 Monocytes (Bld) [#/Vol] Automated blood monocyte count 0.3-0.8 [facility] Monocytes/100 WBC Auto (Bld) on 07-01-2024 Monocytes/100 WBC (Bld) Automated monocyte % 1. 7-12.0 [facility] Neutrophils Auto (Bld) [#/Vo l]on 07-01-2024 Neutrophils (Bld) [#/Vol] Neutrophils [#/volume] in Blood by Automated count High 1.4-6.5 [facility] Neutrophils/100 WBC Auto (Bl d)on 07-01-2024 Neutrophils/100 WBC (Bld) Automated neut rophil % 43.0-75.0 [facility] No Panel Informationon 07-01 Eosinophils # (Auto) 0.1 10 3/uL 0.0-0.7 [facility] Immature Granulocyte # (Auto) 0.02 10 3/uL 0.00-0.03 [facility] Platelet mean volume Auto (B ld) [Entitic vol]on 07-01-2024 Platelet mean volume (Bld) [Entitic vol] Platelet mean volume [Entitic volume] in Blood by Automated count Low 9.5-13.5 [facility] Platelets Auto (Bld) [#/Vol] on 07-01-2024 Platelets (Bld) [#/Vol] Platelets [#/vol ume] in Blood by Automated count 150-450 [facility] RBC Auto (Bld) [#/Vol]on RBC (Bld) [#/Vol] Erythrocytes [#/volume] in Blood by Automated count Low 4.70-6.10 [facility] XR RIBS 2 VIEWS LEFT WITH [...] Electronically Signed Tereso Kauffman M.D. 2024-05-17 12:47:15 [facility] Radiology Study observation (narrative) [facility] XR Ribs Views and Chest PAOr dered By: Elizabeth Kauffman on 05-17-2024 [facility] Work Phone: Hemoglobin [Mass/volume] in Bloodon 03-11-2024 Hemoglobin (Bld) [Mass/Vol] 13.7 g/dL Low 14.0-18. 0 [facility] QuantiFERON TB Goldon 2023 QFTB Criteria Normal . [facility] Comment on above: Result Comment: [...] TB Ag Value 0.02 Normal . [facility] Comment on above: Performed By: #### Q UANT TB ####[facility] , Quant TB Gold Plus Negative Normal Negative [facility] Comment on above: Result Comment: [...] interferon gamma. Chemiluminescence immunoassay methodology Performed at: [facility] [id number] Loft Rigger: Krunal Nichols PhD, Phone: [phone] PERFORMED BY: [place] [id number] PATHOLOGIST MEDICAL DELIVERY TECHNICIAN ADELFO RAMIREZ M.D. Performed By: #### Q UANT TB ####[facility] , Quant TB2 Ag Value 0.02 Normal . [facility] Comment on above: Performed By: #### Q UANT TB ####[facility] , Quantiferon Nil Value 0.02 Normal . [facility] Comment on above: Performed By: #### Q UANT TB ####[facility] , Quantiferon TB Mitogen >10.00 Normal . [facility] Comment on above: Performed By: #### Q UANT TB ####[facility] , Glucose mean value [Mass/vol ume] in Blood Estimated from glycated hemoglobinon 12-29-2023 Average glucose Estimated from glycated hemoglobin (Bld) [Mass/Vol] 134 mg/dL [facility] - Hematology and Cell countson 12-29-2023 HbA1c (Bld) [Mass fraction] 6.3 % 4.5-6.2 [facility] Comment on above: ADA RECOMMENDED LIMI T 4.0 - 6.0ADA THERAPEUTIC TARGET < 7.0ACTION SUGGESTED> 7.0 XR knee BI 2Von 12-09-2023 XR knee BI 2V [facility] [place] [address] XRay Report Signed Patient: Mariano Gutierrez MR#: [id number] : 1950 Acct:[id number] Age/Sex: 73 / M ADM Date: 12/09/23 Loc: ICXD Room: Type: [facility] Attending Dr: Carlos Guzmán MD Copies to: Carlos Guzmán MD Ordering Provider: Carlos Guzmán MD Date of Service: 12/09/23 XR/XR hand BI 2V: HAND PAIN ([id number]) XR/XR knee BI 2V: KNEE PAIN 2 [...] Gregory Schmidt M.D.12/09/2023 4:00 PM Dictation Location: [place] [address] Transcribed By: [facility] 12/09/23 1600 Dictated By: Gregory Schmidt DO 12/09/23 1556 Signed By: 12/09/23 1600 Normal [facility] VANESSA Antinuclear Antibodieson 11-24-2023 Antinuclear Abs, IFA Positive Critically abnormal . [facility] Comment on above: Result Comment: Nega tive <1:80 Borderline 1:80 Positive >1:80 Performed By: #### K APPA, ANCA PROF, C4, CH50, HBSAB, HBCAB, C3, HCV RX PCR, HBSAG, VANESSA ####[facility] , Homogeneous Pattern 1:640 High . [facility] Comment on above: Result Comment: ICAP nomenclature: AC-1 Performed By: #### K APPA, ANCA PROF, C4, CH50, HBSAB, HBCAB, C3, HCV RX PCR, HBSAG, VANESSA ####[facility] , Note 1 Normal . [facility] Comment on above: Result Comment: Prashant huizar Potential Disease Association Homogeneous Systemic Lupus Erythematosus, Drug Induced Systemic Lupus Erythematosus, Chronic Autoimmune hepatitis, Juvenile Idiopathic Arthritis Speckled Sjogren Syndrome, Systemic Lupus Erythematosus, Subacute Cutaneous Lupus, Lupus, Congenital Heart Block, Mixed Connective Tissue Disease, Scleroderma-diffuse, Scleroderma-Autoimmune Myositis Overlap Syndrome, Systemic Lupus Rdwgvxjxllrol-Ahslmqzbnmx-Edxaymrkim Myositis Overlap Syndrome, Systemic Autoimmune Rheumatic Disease, [...] Cytopenias, Linear Scleroderma, Antiphospholipid Syndrome Performed at: [facility] [employer] [id number] Loft Rigger: Krunal Nichols PhD, Phone: [phone] Performed By: #### K APPA, ANCA PROF, C4, CH50, HBSAB, HBCAB, C3, HCV RX PCR, HBSAG, VANESSA ####[facility] , ANCA Profile (ANCA+MPO+PR3)o n 11-24-2023 Antimyeloperoxidase (MPO) Abs 1.8 High 0.0-0.9 [facility] Comment on above: Performed By: #### K APPA, ANCA PROF, C4, CH50, HBSAB, HBCAB, C3, HCV RX PCR, HBSAG, VANESSA ####[facility] , Atypical pANCA <1:20 Normal Neg:<1:20 [facility] Comment on above: Result Comment: The atypical pANCA pattern has been observed in a significant percentage of patients with ulcerative colitis, primary sclerosing cholangitis and autoimmune hepatitis. Performed at: [address] [id number] Loft Rigger: Blanca Olmedo MD, Phone: [phone] Performed at: [address] [id number] Loft Rigger: Krunal Nichols PhD, Phone: [phone] Performed By: #### K APPA, ANCA PROF, C4, CH50, HBSAB, HBCAB, C3, HCV RX PCR, HBSAG, VANESSA ####[facility] , Cytoplasmic (C-ANCA) <1:20 Normal Neg:<1:20 [facility] Comment on above: Performed By: #### K APPA, ANCA PROF, C4, CH50, HBSAB, HBCAB, C3, HCV RX PCR, HBSAG, VANESSA ####[facility] , Perinuclear (P-ANCA) <1:20 Normal Neg:<1:20 [facility] Comment on above: Result Comment: The presence of positive fluorescence exhibiting P-ANCA or C-ANCA patterns alone is not specific for the diagnosis of Staci's Granulomatosis (WG) or microscopic polyangiitis. Decisions about treatment should not be based solely on ANCA IFA results. The International ANCA Group Consensus recommends follow up testing of positive sera with both FL- 3 and MPO-ANCA enzyme immunoassays. As many as 5% serum samples are positive only by EIA. Ref. AM J Clin Pathol 1999;111:507-513. Performed By: #### K APPA, ANCA PROF, C4, CH50, HBSAB, HBCAB, C3, HCV RX PCR, HBSAG, VANESSA ####[facility] , Proteinase 3 (PR3) Antibodies <0.2 Normal 0.0-0.9 [facility] Comment on above: Result Comment: PERF ORMED BY: [address] [place] [address] PATHOLOGIST MEDICAL DELIVERY TECHNICIAN ADELFO RAMIREZ M.D. Performed By: #### K APPA, ANCA PROF, C4, CH50, HBSAB, HBCAB, C3, HCV RX PCR, HBSAG, VANESSA ####[facility] , Alanine aminotransferase [En zymatic activity/volume] in Serum or PlasmaOrdered By: Carlos Guzmán on 11-24-2023 ALT [Catalytic activity/Vol] 11 U/L 7-52 [facility] Albumin [Mass/volume] in Ser um or PlasmaOrdered By: Carlos Guzmán on 11-24-2023 Albumin [Mass/Vol] 3.5 g/dL 2.9-4.4 [facility] Albumin [Mass/volume] in Ser um or Plasma by Bromocresol green (BCG) dye binding methoOrdered By: Carlos Guzmán on 11-24-2023 Albumin BCG dye [Mass/Vol] 3.8 g/dL 3.5-5.7 [facility] Albumin/Protein.total in 24 hour Urine by ElectrophoresisOrdered By: Carlos Guzmán on 11-24-2023 Albumin Elph (24H U) [Mass fraction] 50.7 % . [facility] Alkaline phosphatase [Enzyma tic activity/volume] in Serum or PlasmaOrdered By: Carlos Guzmán on 11-24-2023 ALP [Catalytic activity/Vol] 98 U/L 34-104 [facility] Aspartate aminotransferase [ Enzymatic activity/volume] in Serum or PlasmaOrdered By: Carlos Guzmán on 11-24-2023 AST [Catalytic activity/Vol] 15 U/L 13-39 [facility] Automated erythrocytes count in urine sediment (number/area)Ordered By: Carlos Guzmán on 11-24-2023 RBC Auto (Urine sed) [#/Area] None seen [HPF] 0-4 [facility] Automated leukocytes count i n urine sediment (number/area)Ordered By: Carlos Guzmán on 11-24-2023 WBC Auto (Urine sed) [#/Area] 0-1 [HPF] 0-4 [facility] Basophils Auto (Bld) [#/Vol] Ordered By: Carlos Guzmán on 11-24-2023 Basophils (Bld) [#/Vol] 0.1 10*3/uL 0.0-0.2 [facility] Basophils/100 WBC Auto (Bld) Ordered By: Carlos Guzmán on 11-24-2023 Basophils/100 WBC (Bld) 1.1 % . [facility] Bilirubin Test strip Ql (U)O rdered By: Carlos Guzmán on 11-24-2023 Bilirubin Ql (U) Negative Negative [facility] Bilirubin.total [Mass/volume ] in Serum or PlasmaOrdered By: Carlos Guzmán on 11-24-2023 Bilirubin [Mass/Vol] 0.6 mg/dL 0.3-1.[address] [facility] C reactive protein [Mass/vol ume] in Serum or PlasmaOrdered By: Carlos Guzmán on 11-24-2023 CRP [Mass/Vol] 0.6 mg/dL 0.0-0.5 [facility] C-Reactive Proteinon 024 C-Reactive Protein 0.6 mg/dL High 0.0-0.5 [facility] Comment on above: Result Comment: PERF ORMED BY: [facility] [address] [place] [address] PATHOLOGIST MEDICAL DELIVERY TECHNICIAN ADELFO RAMIREZ M.D. Performed By: #### I FE,URINE, SVETLANA SERUM, UPE RAND, SPE #### [facility] , #### ESR, ADDONUAPLUS, CRP, CBC, CMP #### [facility] [address] Calcium [Mass/volume] in Ser um or PlasmaOrdered By: Carlos Guzmán on 11-24-2023 Calcium [Mass/Vol] 9.4 mg/dL 8.6-10.3 [facility] Carbon dioxide, total [Moles /volume] in Serum or PlasmaOrdered By: Carlos Guzmán on 11-24-2023 CO2 [Moles/Vol] 28.5 mmol/L 21.0-31.0 [facility] Chloride [Moles/volume] in S lucila or PlasmaOrdered By: Carlos Guzmán on 11-24-2023 Chloride [Moles/Vol] 99 mmol/L 98-[address] [facility] Color Auto (U)Ordered By: Elvia Guzmán on 11-24-2023 Color (U) Yellow Yellow [facility] Complement C3on 11-24-2023 Complement C3 135 mg/dL Normal 82-167 [facility] Comment on above: Result Comment: Perf ormed at: - [facility] [address] [place], [place] [id number] Loft Rigger: Krunal Nichols PhD, Phone: [phone] Performed By: #### K APPA, ANCA PROF, C4, CH50, HBSAB, HBCAB, C3, HCV RX PCR, HBSAG, VANESSA ####[facility] , Complement C4on 11-24-2023 Complement C4 10 mg/dL Low 12-38 [facility] Comment on above: Performed By: #### K APPA, ANCA PROF, C4, CH50, HBSAB, HBCAB, C3, HCV RX PCR, HBSAG, VANESSA ####[facility] , Complement Total (CH50)on Complement Total (CH50) 51 Normal >41 [facility] Comment on above: Result [...] determine out of range values. Performed at: [facility] [place] [id number] Loft Rigger: Krunal Nichols PhD, Phone: [phone] PERFORMED BY: [place] [address] PATHOLOGIST MEDICAL DELIVERY TECHNICIAN ADELFO RAMIREZ M.D. Performed By: #### K APPA, ANCA PROF, C4, CH50, HBSAB, HBCAB, C3, HCV RX PCR, HBSAG, VANESSA ####[facility] , Complete Blood Count Auto Di ffon 11-24-2023 Basophils (Bld) [#/Vol] 0.1 10*3/uL Normal 0.0-0.2 [facility] Comment on above: Performed By: #### I FE,URINE, SVETLANA SERUM, UPE RAND, SPE #### [facility] , #### ESR, ADDONUAPLUS, CRP, CBC, CMP #### [address] Basophils/100 WBC (Bld) 1.1 % Normal . [facility] Comment on above: Performed By: #### I FE,URINE, SVETLANA SERUM, UPE RAND, SPE #### [facility] , #### ESR, ADDONUAPLUS, CRP, CBC, CMP #### [address] Eosinophils (Bld) [#/Vol] 0.2 10*3/uL Normal 0.0-0.45 [facility] Comment on above: Performed By: #### I FE,URINE, SVETLANA SERUM, UPE RAND, SPE #### [facility] , #### ESR, ADDONUAPLUS, CRP, CBC, CMP #### [address] Eosinophils/100 WBC (Bld) 2.0 % Normal . [facility] Comment on above: Performed By: #### I FE,URINE, SVETLANA SERUM, UPE RAND, SPE #### [facility] , #### ESR, ADDONUAPLUS, CRP, CBC, CMP #### [address] Erythrocyte distribution width (RBC) [Ratio] 15.0 % High 12.0-14.8 [facility] Comment on above: Performed By: #### I FE,URINE, SVETLANA SERUM, UPE RAND, SPE #### [facility] , #### ESR, ADDONUAPLUS, CRP, CBC, CMP #### [address] Hematocrit (Bld) [Volume fraction] 38.8 % Normal 38.8-50.0 [facility] Comment on above: Performed By: #### I FE,URINE, SVETLANA SERUM, UPE RAND, SPE #### [facility] , #### ESR, ADDONUAPLUS, CRP, CBC, CMP #### [address] Hemoglobin (Bld) [Mass/Vol] 13.3 g/dL Normal 13.0-17. 0 [facility] Comment on above: Performed By: #### I FE,URINE, SVETLANA SERUM, UPE RAND, SPE #### [facility] , #### ESR, ADDONUAPLUS, CRP, CBC, CMP #### [address] Lymphocytes (Bld) [#/Vol] 2.5 10*3/uL Normal 1.00-4.8 [facility] Comment on above: Performed By: #### I FE,URINE, SVETLANA SERUM, UPE RAND, SPE #### [facility] , #### ESR, ADDONUAPLUS, CRP, CBC, CMP #### [address] Lymphocytes/100 WBC (Bld) 28.6 % Normal . [facility] Comment on above: Performed By: #### I FE,URINE, SVETLANA SERUM, UPE RAND, SPE #### [facility] , #### ESR, ADDONUAPLUS, CRP, CBC, CMP #### [address] MCH (RBC) [Entitic mass] 30.0 pg Normal 27.5-35.2 [facility] Comment on above: Performed By: #### I FE,URINE, SVETLANA SERUM, UPE RAND, SPE #### [facility] , #### ESR, ADDONUAPLUS, CRP, CBC, CMP #### [address] MCV (RBC) [Entitic vol] 87.1 fL Normal 83.5-101 [facility] Comment on above: Performed By: #### I FE,URINE, SVETLANA SERUM, UPE RAND, SPE #### [facility] , #### ESR, ADDONUAPLUS, CRP, CBC, CMP #### [address] Mean Corpuscular HGB Conc 34.4 g/dL Normal 32.5-35.6 [facility] Comment on above: Performed By: #### I FE,URINE, SVETLANA SERUM, UPE RAND, SPE #### [facility] , #### ESR, ADDONUAPLUS, CRP, CBC, CMP #### [address] Monocytes (Bld) [#/Vol] 0.7 10*3/uL Normal 0.0-0.8 [facility] Comment on above: Performed By: #### I FE,URINE, SVETLANA SERUM, UPE RAND, SPE #### [facility] , #### ESR, ADDONUAPLUS, CRP, CBC, CMP #### [place] [address] [place] Monocytes/100 WBC (Bld) 7.8 % Normal . [facility] Comment on above: Performed By: #### I FE,URINE, SVETLANA SERUM, UPE RAND, SPE #### [facility] , #### ESR, ADDONUAPLUS, CRP, CBC, CMP #### [place] [address] [place] Neutrophils (Bld) [#/Vol] 5.4 10*3/uL Normal 1.8-7.7 [facility] Comment on above: Performed By: #### I FE,URINE, SVETLANA SERUM, UPE RAND, SPE #### [facility] , #### ESR, ADDONUAPLUS, CRP, CBC, CMP #### [place] [address] [place] Neutrophils/100 WBC (Bld) 60.5 % Normal . [facility] Comment on above: Performed By: #### I FE,URINE, SVETLANA SERUM, UPE RAND, SPE #### [facility] , #### ESR, ADDONUAPLUS, CRP, CBC, CMP #### [place] [address] [place] NRBC% 0.0 /100{WBC} Normal 0-0.5 [facility] Comment on above: Performed By: #### I FE,URINE, SVETLANA SERUM, UPE RAND, SPE #### [facility] , #### ESR, ADDONUAPLUS, CRP, CBC, CMP #### [address] Platelet mean volume (Bld) [Entitic vol] 7.9 fL Normal 6.6-10.1 [facility] Comment on above: Performed By: #### I FE,URINE, SVETLANA SERUM, UPE RAND, SPE #### [facility] , #### ESR, ADDONUAPLUS, CRP, CBC, CMP #### [address] Platelets (Bld) [#/Vol] 369 10*3/uL Normal 150-450 [facility] Comment on above: Performed By: #### I FE,URINE, SVETLANA SERUM, UPE RAND, SPE #### [facility] , #### ESR, ADDONUAPLUS, CRP, CBC, CMP #### [address] RBC (Bld) [#/Vol] 4.45 10*6/uL Normal 3.90-5.60 [facility] Comment on above: Performed By: #### I FE,URINE, SVETLANA SERUM, UPE RAND, SPE #### [facility] , #### ESR, ADDONUAPLUS, CRP, CBC, CMP #### [address] WBC (Bld) [#/Vol] 8.9 10*3/uL Normal 4.1-10.5 [facility] Comment on above: Performed By: #### I FE,URINE, SVETLANA SERUM, UPE RAND, SPE #### [facility] , #### ESR, ADDONUAPLUS, CRP, CBC, CMP #### [address] Comprehensive Metabolic Pane jonathon 11-24-2023 Albumin [Mass/Vol] 3.8 g/dL Normal 3.5-5.7 [facility] Comment on above: Performed By: #### I FE,URINE, SVETLANA SERUM, UPE RAND, SPE #### [facility] , #### ESR, ADDONUAPLUS, CRP, CBC, CMP #### [address] Albumin/Globulin [Mass ratio] 0.9 {ratio} Normal [facility] Comment on above: Performed By: #### I FE,URINE, SVETLANA SERUM, UPE RAND, SPE #### [facility] , #### ESR, ADDONUAPLUS, CRP, CBC, CMP #### [address] ALP [Catalytic activity/Vol] 98 U/L Normal 34-104 [facility] Comment on above: Performed By: #### I FE,URINE, SVETLANA SERUM, UPE RAND, SPE #### [facility] , #### ESR, ADDONUAPLUS, CRP, CBC, CMP #### [address] ALT [Catalytic activity/Vol] 11 U/L Normal 7-52 [facility] Comment on above: Performed By: #### I FE,URINE, SVETLANA SERUM, UPE RAND, SPE #### [facility] , #### ESR, ADDONUAPLUS, CRP, CBC, CMP #### [address] Anion gap [Moles/Vol] 14.8 mmol/L Normal 6.0-15.0 [facility] Comment on above: Performed By: #### I FE,URINE, SVETLANA SERUM, UPE RAND, SPE #### [facility] , #### ESR, ADDONUAPLUS, CRP, CBC, CMP #### [address] AST [Catalytic activity/Vol] 15 U/L Normal 13-39 [facility] Comment on above: Performed By: #### I FE,URINE, SVETLANA SERUM, UPE RAND, SPE #### [facility] , #### ESR, ADDONUAPLUS, CRP, CBC, CMP #### [address] Bilirubin [Mass/Vol] 0.6 mg/dL Normal 0.3-1.0 [facility] Comment on above: Performed By: #### I FE,URINE, SVETLANA SERUM, UPE RAND, SPE #### [facility] , #### ESR, ADDONUAPLUS, CRP, CBC, CMP #### [address] Calcium [Mass/Vol] 9.4 mg/dL Normal 8.6-10.3 [facility] Comment on above: Performed By: #### I FE,URINE, SVETLANA SERUM, UPE RAND, SPE #### [facility] , #### ESR, ADDONUAPLUS, CRP, CBC, CMP #### [address] Chloride [Moles/Vol] 99 mmol/L Normal 98-107 [facility] Comment on above: Performed By: #### I FE,URINE, SVETLANA SERUM, UPE RAND, SPE #### [facility] , #### ESR, ADDONUAPLUS, CRP, CBC, CMP #### [place] [address] [place] CO2 [Moles/Vol] 28.5 mmol/L Normal 21.0-31.0 [facility] Comment on above: Performed By: #### I FE,URINE, SVETLANA SERUM, UPE RAND, SPE #### [facility] , #### ESR, ADDONUAPLUS, CRP, CBC, CMP #### [place] [address] Creatinine [Mass/Vol] 0.73 mg/dL Normal 0.70-1.30 [facility] Comment on above: Performed By: #### I FE,URINE, SVETLANA SERUM, UPE RAND, SPE #### [facility] , #### ESR, ADDONUAPLUS, CRP, CBC, CMP #### [address] GFR/1.73 sq M.predicted MDRD (S/P/Bld) [Vol rate/Area] mL/min/{1.73_m2} Normal [facility] Comment on above: Performed By: #### I FE,URINE, SVETLANA SERUM, UPE RAND, SPE #### [facility] , #### ESR, ADDONUAPLUS, CRP, CBC, CMP #### [address] Globulin (S) [Mass/Vol] 4.4 g/dL High 2.2-3.9 [facility] Comment on above: Performed By: #### I FE,URINE, SVETLANA SERUM, UPE RAND, SPE #### [facility] , #### ESR, ADDONUAPLUS, CRP, CBC, CMP #### [address] Glucose [Mass/Vol] 105 mg/dL High 70-100 [facility] Comment on above: Result Comment: [facility] Glucose Reference Range is dependent on time and content of last meal. Glucose of more than 200 mg/dL in a nonstressed, ambulatory subject supports the diagnosis of Diabetes Mellitus. ADA recommended reference range Performed By: #### I FE,URINE, SVETLANA SERUM, UPE RAND, SPE #### [facility] , #### ESR, ADDONUAPLUS, CRP, CBC, CMP #### [address] Potassium [Moles/Vol] 4.3 mmol/L Normal 3.5-5.1 [facility] Comment on above: Performed By: #### I FE,URINE, SVETLANA SERUM, UPE RAND, SPE #### [facility] , #### ESR, ADDONUAPLUS, CRP, CBC, CMP #### [facility] [address] Protein [Mass/Vol] 8.2 g/dL Normal 6.4-8.9 [facility] Comment on above: Performed By: #### I FE,URINE, SVETLANA SERUM, UPE RAND, SPE #### [facility] , #### ESR, ADDONUAPLUS, CRP, CBC, CMP #### [facility] [address] [place] [address] Sodium [Moles/Vol] 138 mmol/L Normal 136-145 [facility] Comment on above: Performed By: #### I FE,URINE, SVETLANA SERUM, UPE RAND, SPE #### [facility] , #### ESR, ADDONUAPLUS, CRP, CBC, CMP #### [facility] [address] [place] [address] Urea nitrogen [Mass/Vol] 15 mg/dL Normal 7-25 [facility] Comment on above: Performed By: #### I FE,URINE, SVETLANA SERUM, UPE RAND, SPE #### [facility] , #### ESR, ADDONUAPLUS, CRP, CBC, CMP #### [facility] [address] [place] [address] Creatinine [Mass/volume] in Serum or PlasmaOrdered By: Carlos Guzmán on 11-24-2023 Creatinine [Mass/Vol] 0.73 mg/dL 0.70-1.30 [facility] Dipstick and Microscopicon 0 11-24-2023 Appearance (U) Clear Normal Clear [facility] Comment on above: Order Comment: Name Collection Type:: Clean-Voided Midstream Performed By: #### I FE,URINE, SVETLANA SERUM, UPE RAND, SPE #### [facility] , #### ESR, ADDONUAPLUS, CRP, CBC, CMP #### [address] Bacteria,Urine None Seen Normal None Seen [facility] Comment on above: Order Comment: Name Collection Type:: Clean-Voided Midstream Performed By: #### I FE,URINE, SVETLANA SERUM, UPE RAND, SPE #### [facility] , #### ESR, ADDONUAPLUS, CRP, CBC, CMP #### [address] Bilirubin,Urine Negative Normal Negative [facility] Comment on above: Order Comment: Name Collection Type:: Clean-Voided Midstream Performed By: #### I FE,URINE, SVETLANA SERUM, UPE RAND, SPE #### [facility] , #### ESR, ADDONUAPLUS, CRP, CBC, CMP #### [address] Color (U) Yellow Normal Yellow [facility] Comment on above: Order Comment: Name Collection Type:: Clean-Voided Midstream Performed By: #### I FE,URINE, SVETLANA SERUM, UPE RAND, SPE #### [facility] , #### ESR, ADDONUAPLUS, CRP, CBC, CMP #### [address] Glucose Ql (U) >=1000 High Normal [facility] Comment on above: Order Comment: Name Collection Type:: Clean-Voided Midstream Performed By: #### I FE,URINE, SVETLANA SERUM, UPE RAND, SPE #### [facility] , #### ESR, ADDONUAPLUS, CRP, CBC, CMP #### [address] Hyaline Casts,Urine 0-8 Normal 0-8 [facility] Comment on above: Order Comment: Name Collection Type:: Clean-Voided Midstream Result Comment: PERF ORMED BY: [address] [address] PATHOLOGIST MEDICAL DELIVERY TECHNICIAN ADELFO RAMIREZ M.D. Performed By: #### I FE,URINE, SVETLANA SERUM, UPE RAND, SPE #### [facility] , #### ESR, ADDONUAPLUS, CRP, CBC, CMP #### [address] Ketones Ql (U) Trace High Negative [facility] Comment on above: Order Comment: Name Collection Type:: Clean-Voided Midstream Performed By: #### I FE,URINE, SVETLANA SERUM, UPE RAND, SPE #### [facility] , #### ESR, ADDONUAPLUS, CRP, CBC, CMP #### [address] Leukocyte esterase Test strip Ql (U) Negative Normal Negative [facility] Comment on above: Order Comment: Name Collection Type:: Clean-Voided Midstream Performed By: #### I FE,URINE, SVETLANA SERUM, UPE RAND, SPE #### [facility] , #### ESR, ADDONUAPLUS, CRP, CBC, CMP #### [address] Nitrite,Urine Negative Normal Negative [facility] Comment on above: Order Comment: Name Collection Type:: Clean-Voided Midstream Performed By: #### I FE,URINE, SVETLANA SERUM, UPE RAND, SPE #### [facility] , #### ESR, ADDONUAPLUS, CRP, CBC, CMP #### [address] Occult Blood,Urine Negative Normal Negative [facility] Comment on above: Order Comment: Name Collection Type:: Clean-Voided Midstream Performed By: #### I FE,URINE, SVETLANA SERUM, UPE RAND, SPE #### [facility] , #### ESR, ADDONUAPLUS, CRP, CBC, CMP #### [place] [address] pH (U) 5.0 [pH] Normal 5.0-9.0 [facility] Comment on above: Order Comment: Name Collection Type:: Clean-Voided Midstream Performed By: #### I FE,URINE, SVETLANA SERUM, UPE RAND, SPE #### [facility] , #### ESR, ADDONUAPLUS, CRP, CBC, CMP #### [address] Protein (U) [Mass/Vol] 30 mg/dL High Negative Th e [facility] Comment on above: Order Comment: Name Collection Type:: Clean-Voided Midstream Performed By: #### I FE,URINE, SVETLANA SERUM, UPE RAND, SPE #### [facility] , #### ESR, ADDONUAPLUS, CRP, CBC, CMP #### [address] RBC,Urine None Seen Normal 0-4 [facility] Comment on above: Order Comment: Name Collection Type:: Clean-Voided Midstream Performed By: #### I FE,URINE, SVETLANA SERUM, UPE RAND, SPE #### [facility] , #### ESR, ADDONUAPLUS, CRP, CBC, CMP #### [address] Specificy Clarissa,Urine 1.039 High 1.00 1-1.03 0 [facility] Comment on above: Order Comment: Name Collection Type:: Clean-Voided Midstream Performed By: #### I FE,URINE, SVETLANA SERUM, UPE RAND, SPE #### [facility] , #### ESR, ADDONUAPLUS, CRP, CBC, CMP #### [address] Squamous Epithelial Cell,Urine None Seen Normal 0-2 [facility] Comment on above: Order Comment: Name Collection Type:: Clean-Voided Midstream Performed By: #### I FE,URINE, SVETLANA SERUM, UPE RAND, SPE #### [facility] , #### ESR, ADDONUAPLUS, CRP, CBC, CMP #### [facility] [address] [place] [address] Urobilinogen,Urine Normal Normal Normal [facility] Comment on above: Order Comment: Name Collection Type:: Clean-Voided Midstream Performed By: #### I FE,URINE, SVETLANA SERUM, UPE RAND, SPE #### [facility] , #### ESR, ADDONUAPLUS, CRP, CBC, CMP #### [facility] [address] [place] [address] WBC LM.HPF (Urine sed) [#/Area] 0 /[HPF] Normal 0-4 [facility] Comment on above: Order Comment: Name Collection Type:: Clean-Voided Midstream Performed By: #### I FE,URINE, SVETLANA SERUM, UPE RAND, SPE #### [facility] , #### ESR, ADDONUAPLUS, CRP, CBC, CMP #### [address] Eosinophils Auto (Bld) [#/Vo l]Ordered By: Carlos Guzmán on 11-24-2023 Eosinophils (Bld) [#/Vol] 0.2 10*3/uL 0.0-0.45 [facility] Eosinophils/100 WBC Auto (Bl d)Ordered By: Carlos Guzmán on 11-24-2023 Eosinophils/100 WBC (Bld) 2.0 % . [facility] Erythrocyte Sedimentation Ra bibiana 11-24-2023 ESR (Bld) [Velocity] 72 mm/h High 0-19 [facility] Comment on above: Result Comment: PERF ORMED BY: [place] [address] PATHOLOGIST MEDICAL DELIVERY TECHNICIAN ADELFO RAMIREZ M.D. Performed By: #### I FE,URINE, SVETLANA SERUM, UPE RAND, SPE #### [facility] , #### ESR, ADDONUAPLUS, CRP, CBC, CMP #### [facility] [address] Erythrocyte distribution wid th Auto (RBC) [Ratio]Ordered By: Carlos Guzmán on 11-24-2023 Erythrocyte distribution width (RBC) [Ratio] 15.0 % 12.0-14.8 [facility] Erythrocyte sedimentation ra te by Photometric methodOrdered By: Carlos Guzmán on 11-24-2023 ESR Photometric method (Bld) [Velocity] 72 mm/hr 0-19 [facility] Free K+L LT Chains, Qn, Son 11-24-2023 Free Kyle Light Chains, S 127.8 mg/L High 3.3-19.4 [facility] Comment on above: Performed By: #### K APPA, ANCA PROF, C4, CH50, HBSAB, HBCAB, C3, HCV RX PCR, HBSAG, VANESSA ####[facility] , Free Lambda Light Chains, S 171.2 mg/L High 5.7-26.3 [facility] Comment on above: Performed By: #### K APPA, ANCA PROF, C4, CH50, HBSAB, HBCAB, C3, HCV RX PCR, HBSAG, VANESSA ####[facility] , Kyle/Lambda Ratio, S 0.75 Normal 0.26-1.65 [facility] [facility] Comment on above: Result Comment: Perf ormed at: - [facility] [address] [id number] Loft Rigger: Krunal Nichols PhD, Phone: [phone] Performed By: #### K APPA, ANCA PROF, C4, CH50, HBSAB, HBCAB, C3, HCV RX PCR, HBSAG, VANESSA ####[facility] , Gamma globulin/Protein.total in 24 hour Urine by ElectrophoresisOrdered By: Carlos Guzmán on 11-24-2023 Gamma globulin Elph (24H U) [Mass fraction] 20.1 % . [facility] Glucose [Mass/volume] in Ser um or PlasmaOrdered By: Carlos Guzmán on 11-24-2023 Glucose [Mass/Vol] 105 mg/dL 70-100 [facility] Comment on above: ADA recommended refe rence rangeRandom Glucose Reference Range is dependent on time and content of last meal. Glucose of more than 200 mg/dL in a nonstressed, ambulatory subject supports the diagnosis of Diabetes Mellitus. Hematocrit Auto (Bld) [Volum e fraction]Ordered By: Carlos Guzmán on 11-24-2023 Hematocrit (Bld) [Volume fraction] 38.8 % 38.8-50.0 [facility] Hemoglobin [Mass/volume] in BloodOrdered By: Carlos Guzmán on 11-24-2023 Hemoglobin (Bld) [Mass/Vol] 13.3 g/dL 13.0-17. 0 [facility] Hep C Ab wRfx to Qnt PCRon 0 11-24-2023 Hepatitis C Virus Antibody Non-Reactive Normal N on Reactive [facility] Comment on above: Performed By: #### K APPA, ANCA PROF, C4, CH50, HBSAB, HBCAB, C3, HCV RX PCR, HBSAG, VANESSA ####[facility] , Interpretation Hepatitis C Normal . [facility] Comment on above: Result Comment: [...] B Core Antibody Negative Normal Negative [facility] Comment on above: Result Comment: Perf ormed at: - [facility] [address] [id number] Loft Rigger: Krunal Nichols PhD, Phone: [phone] Performed By: #### K APPA, ANCA PROF, C4, CH50, HBSAB, HBCAB, C3, HCV RX PCR, HBSAG, VANESSA ####[facility] , Hepatitis B Surface Antibody on 11-24-2023 Hepatitis B Surface Antibody Non-Reactive Normal . [facility] Comment on above: Result Comment: Non Reactive: Inconsistent with immunity, less than 10 mIU/mL Reactive: Consistent with immunity, greater than 9.9 mIU/mL Performed By: #### K APPA, ANCA PROF, C4, CH50, HBSAB, HBCAB, C3, HCV RX PCR, HBSAG, VANESSA ####[facility] , Hepatitis B Surface Antigeno n 11-24-2023 HBsAg Screen Negative Normal Negative [facility] Comment on above: Result Comment: PERF ORMED BY: [facility] [address] [place] [address] PATHOLOGIST MEDICAL DELIVERY TECHNICIAN ADELFO RAMIREZ M.D. Performed By: #### K APPA, ANCA PROF, C4, CH50, HBSAB, HBCAB, C3, HCV RX PCR, HBSAG, VANESSA ####[facility] , Hepatitis B virus surface Ab [Presence] in SerumOrdered By: Carlos Guzmán on 11-24-2023 HBV surface Ab Ql (S) Non-Reactive . [facility] Comment on above: Non Reactive: Incons istent with immunity, less than 10 mIU/mL Reactive: Consistent with immunity, greater than 9.9 mIU/mL Hepatitis B virus surface Ag [Presence] in Serum or Plasma by ImmunoassayOrdered By: Carlos Guzmán on 11-24-2023 HBV surface Ag IA Ql Negative Negative [facility] Hepatitis C virus IgG Ab [Pr esence] in Serum or Plasma by ImmunoassayOrdered By: Carlos Guzmán on 11-24-2023 HCV IgG IA Ql Non-Reactive Non Reactive [facility] IgA [Mass/volume] in Serum o r PlasmaOrdered By: Carlos Guzmán on 11-24-2023 IgA [Mass/Vol] 399 mg/dL 61-437 [facility] IgG [Mass/volume] in Serum o r PlasmaOrdered By: Carlos Guzmán on 11-24-2023 IgG [Mass/Vol] 2589 mg/dL 603-1613 [facility] IgM [Mass/volume] in Serum o r PlasmaOrdered By: Carlos Guzmán on 11-24-2023 IgM [Mass/Vol] 217 mg/dL 15-143 [facility] Comment on above: Performed at: [facility] [address] [id number] Director: Krunal Nichols PhD, Phone: [phone] Immunofixation for UrineOrde red By: Carlos Guzmán on 11-24-2023 Interpretation Immunofixation (U) [Interp] Comment: . [facility] Comment on above: Presence of monoclon al protein is unclear at this time. Suggestrepeat in 3 to 6 months if clinically indicated.Performed at: [facility] [address] [id number] Director: Krunal Nichols PhD, Phone: [phone] Immunofixation, (SVETLANA), Urine on 11-24-2023 Immunofixation, (SVETLANA), Urine Comment: Normal . [facility] Comment on above: Result Comment: Pres ence of monoclonal protein is unclear at this time. Suggest repeat in 3 to 6 months if clinically indicated. Performed at: [facility] [place] [id number] [place], [place] [id number] Loft Rigger: Krunal Nichols PhD, Phone: [phone] Performed By: #### I FE,URINE, SVETLANA SERUM, UPE RAND, SPE ####[facility] ,#### ESR, ADDONUAPLUS, CRP, CBC, CMP ####[facility] [address] [place] [address] [place] Immunofixation,Serumon 11-23 Immunofixation, Serum Normal . [facility] Comment on above: Result Comment: No m onoclonality detected. Performed By: #### I FE,URINE, SVETLANA SERUM, UPE RAND, SPE #### [facility] , #### ESR, ADDONUAPLUS, CRP, CBC, CMP #### [facility] [address] Immunoglobulin A, Serum 399 mg/dL Normal 61-437 [facility] Comment on above: Performed By: #### I FE,URINE, SVETLANA SERUM, UPE RAND, SPE #### [facility] , #### ESR, ADDONUAPLUS, CRP, CBC, CMP #### [facility] [address] Immunoglobulin G 2589 mg/dL High 603-1613 [facility] Comment on above: Performed By: #### I FE,URINE, SVETLANA SERUM, UPE RAND, SPE #### [facility] , #### ESR, ADDONUAPLUS, CRP, CBC, CMP #### [facility] [address] Immunoglobulin M, Serum 217 mg/dL High 15-143 [facility] Comment on above: Result Comment: Perf ormed at: [employer] - [facility] [address] [place], [place] [id number] Loft Rigger: Krunal Nichols PhD, Phone: [phone] Performed By: #### I FE,URINE, SVETLANA SERUM, UPE RAND, SPE #### [facility] , #### ESR, ADDONUAPLUS, CRP, CBC, CMP #### [facility] [address] Immunoglobulin light chains. kappa.free [Mass/volume] in SerumOrdered By: Carlos Guzmán on 11-24-2023 Immunoglobulin light chains.kappa.free (S) [Mass/Vol] 127.8 mg/L 3.3-19.4 [facility] Immunoglobulin light chains. kappa.free/Immunoglobulin light chains.lambda.free [MassOrdered By: Carlos Guzmán on 11-24-2023 Immunoglobulin light chains.kappa.free/Immunoglo bulin light chains.lambda.free (S) [Mass ratio] 0.75 0.26-1.65 [facility] Comment on above: Performed at: [employer] - [facility] [address] [place], [place] [id number] Director: Krunal Nichols PhD, Phone: [phone] Immunoglobulin light chains. lambda.free [Mass/volume] in Serum or PlasmaOrdered By: Carlos Guzmán on 11-24-2023 Immunoglobulin light chains.lambda.free [Mass/Vol] 171.2 mg/L 5.7-26.3 [facility] Ketones Auto test strip (U) [Mass/Vol]Ordered By: Carlos Guzmán on 11-24-2023 Ketones (U) [Mass/Vol] Trace Negative Fi [facility] - UrinalysisOrder ed By: Carlos Guzmán on 11-24-2023 Hyaline casts LM Ql (Urine sed) 0-8 [LPF] 0-8 [facility] Leukocytes [#/volume] correc yuniel for nucleated erythrocytes in Blood by Automated counOrdered By: Carlos Guzmán on 11-24-2023 WBC corrected for nucl RBC Auto (Bld) [#/Vol] 8.9 10*3/uL 4.1-10.5 [facility] Lymphocytes Auto (Bld) [#/Vo l]Ordered By: Carlos Guzmán on 11-24-2023 Lymphocytes (Bld) [#/Vol] 2.5 10*3/uL 1.00-4.8 [facility] Lymphocytes/100 WBC Auto (Bl d)Ordered By: Carlos Guzmán on 11-24-2023 Lymphocytes/100 WBC (Bld) 28.6 % . [facility] MCH Auto (RBC) [Entitic mass ]Ordered By: Carlos Guzmán on 11-24-2023 MCH (RBC) [Entitic mass] 30.0 pg 27.5-35.2 [facility] MCHC Auto (RBC) [Mass/Vol]Or dered By: Carlos Guzmán on 11-24-2023 MCHC (RBC) [Mass/Vol] 34.4 g/dL 32.5-35.6 [facility] MCV Auto (RBC) [Entitic vol] Ordered By: Carlos Guzmán on 11-24-2023 MCV (RBC) [Entitic vol] 87.1 fL 83.5-101 [facility] Monocytes Auto (Bld) [#/Vol] Ordered By: Carlos Guzmán on 11-24-2023 Monocytes (Bld) [#/Vol] 0.7 10*3/uL 0.0-0.8 [facility] Monocytes/100 WBC Auto (Bld) Ordered By: Carlos Guzmán on 11-24-2023 Monocytes/100 WBC (Bld) 7.8 % . [facility] Myeloperoxidase Ab [Units/vo lume] in Serum by ImmunoassayOrdered By: Carlos Guzmán on 11-24-2023 Myeloperoxidase Ab IA Qn (S) 1.8 units 0.0-0.9 [facility] Neutrophil cytoplasmic Ab.pe rinuclear.atypical [Titer] in Serum by ImmunofluorescenceOrdered By: Carlos Guzmán on 11-24-2023 Neutrophil cytoplasmic Ab.perinuclear.atypical IF (S) [Titer] <1:20 titer Neg:<1:20 [facility] Comment on above: The atypical pANCA p attern has been observed in asignificant percentage of patients with ulcerative colitis,primary sclerosing cholangitis and autoimmune hepatitis.Performed at: [employer] [id number] Director: Blanca Olmedo MD, Phone: [phone] at: [facility] [employer] [id number] Director: Krunal Nichols PhD, Phone: [phone] Neutrophils Auto (Bld) [#/Vo l]Ordered By: Carlos Guzmán on 11-24-2023 Neutrophils (Bld) [#/Vol] 5.4 10*3/uL 1.8-7.7 [facility] Neutrophils/100 WBC Auto (Bl d)Ordered By: Carlos Guzmán on 11-24-2023 Neutrophils/100 WBC (Bld) 60.5 % . [facility] Nitrite Test strip Ql (U)Ord ered By: Carlos Guzmán on 11-24-2023 Nitrite Ql (U) Negative Negative [facility] No Panel InformationOrdered By: Carlos Guzmán on 11-24-2023 Anti-Nuclear Antibody Comment 2 See comment . [facility] Comment on above: Pattern Potential Di sease Association Homogeneous Systemic Lupus Erythematosus, Drug Induced Systemic Lupus Erythematosus, Chronic Autoimmune hepatitis, Juvenile Idiopathic Arthritis Speckled Sjogren Syndrome, Systemic Lupus Erythematosus, Subacute Cutaneous Lupus, Lupus, Congenital Heart Block, Mixed Connective Tissue Disease, Scleroderma-diffuse, Scleroderma-Autoimmune Myositis Overlap Syndrome, Systemic Lupus Acorbcagacxrd-Mbajxzhvudb-Hottocykri Myositis Overlap Syndrome, Systemic Autoimmune Rheumatic Disease, [...] Cytopenias, Linear Scleroderma, Antiphospholipid Syndrome Performed at: [employer] - [facility] [address] [place], [place] [id number] Director: Krunal Nichols PhD, Phone: [phone] Estimated GFR (CKD-EPI) > 60.0 mL/Min [facility] Hepatitis B Core Total Antibody Negative Negative [facility] Comment on above: Performed at: [employer] - [facility] [address] [id number] Director: Krunal Nichols PhD, Phone: [phone] Hepatitis C Interpretation See comment . [facility] Comment on above: Not infected with HC V unless early or acute infection issuspected (which may be delayed in an immunocompromisedindividual), or other evidence exists to indicate HCVinfection. Perinuclear ANCA (p-ANCA) Antibody <1:20 titer Neg:<1:20 [facility] Comment on above: The presence of posi tive fluorescence exhibiting P-ANCA orC-ANCA patterns alone is not specific for the diagnosis ofWegener's Granulomatosis (WG) or microscopic polyangiitis.Decisions about treatment should not be based solely onANCA IFA results. The International ANCA Group Consensusrecommends follow up testing of positive sera with both FL-3 and MPO-ANCA enzyme immunoassays. As many as 5% serumsamples are positive only by EIA. Ref. AM J Clin Wpryvp2774;111:507-513. Pharmacy Creatinine Clearance (Chem N/A [facility] Protein Electrophoresis M-Michael Not observed g/dL Not Observed [facility] Protein Electrophoresis Note See comment . [facility] Comment on above: Protein electrophore sis scan will follow via computer,mail, or street contractor delivery.Performed at: [employer] - [facility] [address] [id number] Director: Krunal Nichols PhD, Phone: [phone] Serum Immunofixation See comment . [facility] Comment on above: No monoclonality det ected. Total Complement (CH50) 51 U/mL >41 [facility] Comment on above: Age Male Female 2 [...] determine out of range values.Performed at: - [facility] [id number] Director: Krunal Nichols PhD, Phone: [phone] Urine Random Prot Electrophor Note See comment . [facility] Comment on above: Protein electrophore sis scan will follow via computer,mail, or street contractor delivery. Nucleated erythrocytes [Pres ence] in Blood by Automated countOrdered By: Carlos Guzmán on 11-24-2023 Nucleated RBC Auto Ql (Bld) 0.0 /100{WBC} 0-0.5 [facility] Platelet mean volume Auto (B ld) [Entitic vol]Ordered By: Carlos Guzmán on 11-24-2023 Platelet mean volume (Bld) [Entitic vol] 7.9 fL 6.6-10.1 [facility] Platelets Auto (Bld) [#/Vol] Ordered By: Carlos Guzmán on 11-24-2023 Platelets (Bld) [#/Vol] 369 10*3/uL 150-450 [facility] Potassium [Moles/volume] in Serum or PlasmaOrdered By: Carlos Guzmán on 11-24-2023 Potassium [Moles/Vol] 4.3 mmol/L 3.5-5.1 [facility] Protein Auto test strip (U) [Mass/Vol]Ordered By: Carlos Guzmán on 11-24-2023 Protein (U) [Mass/Vol] 30 mg/dL Negative [facility] Protein Electro, Random Urin sheree 11-24-2023 Albumin, Urine 50.7 % Normal . [facility] Comment on above: Performed By: #### I FE,URINE, SVETLANA SERUM, UPE RAND, SPE ####[facility] ,#### ESR, ADDONUAPLUS, CRP, CBC, CMP ####[facility] [address] Ulxhe-8-Fbuyizti, Urine 1.3 % Normal . [facility] Comment on above: Performed By: #### I FE,URINE, SVETLANA SERUM, UPE RAND, SPE ####[facility] ,#### ESR, ADDONUAPLUS, CRP, CBC, CMP ####[address] Ukemd-6-Uykzhppx, Urine 9.1 % Normal . [facility] Comment on above: Performed By: #### I FE,URINE, SVETLANA SERUM, UPE RAND, SPE ####[facility] ,#### ESR, ADDONUAPLUS, CRP, CBC, CMP ####[address] Beta Globulin, Urine 18.7 % Normal . [facility] Comment on above: Performed By: #### I FE,URINE, SVETLANA SERUM, UPE RAND, SPE ####[facility] ,#### ESR, ADDONUAPLUS, CRP, CBC, CMP ####[address] Gamma Globulin, Urine 20.1 % Normal . [facility] Comment on above: Performed By: #### I FE,URINE, SVETLANA SERUM, UPE RAND, SPE ####[facility] ,#### ESR, ADDONUAPLUS, CRP, CBC, CMP ####[address] M-Michael % Not Observed Normal Not Observed [facility] Comment on above: Performed By: #### I FE,URINE, SVETLANA SERUM, UPE RAND, SPE ####[facility] ,#### ESR, ADDONUAPLUS, CRP, CBC, CMP ####[address] Please Note: Normal . [facility] Comment on above: Result Comment: Prot ein electrophoresis scan will follow via computer, mail, or street contractor delivery. PERFORMED BY: [facility] [address] [place] [address] PATHOLOGIST MEDICAL DELIVERY TECHNICIAN ADELFO RAMIREZ M.D. Performed By: #### I FE,URINE, SVETLANA SERUM, UPE RAND, SPE ####[facility] ,#### ESR, ADDONUAPLUS, CRP, CBC, CMP ####[facility] Protein (U) [Mass/Vol] 40.0 mg/dL Normal Not Estab. Th e [facility] Comment on above: Performed By: #### I FE,URINE, SVETLANA SERUM, UPE RAND, SPE ####[facility] ,#### ESR, ADDONUAPLUS, CRP, CBC, CMP ####[facility] Protein Electrophoresis, Ser umon 11-24-2023 Albumin [Mass/Vol] 3.5 g/dL Normal 2.9-4.4 [facility] Comment on above: Performed By: #### I FE,URINE, SVETLANA SERUM, UPE RAND, SPE #### [facility] , #### ESR, ADDONUAPLUS, CRP, CBC, CMP #### [facility] [address] Albumin/Globulin [Mass ratio] 0.8 {ratio} Normal 0.7-1.7 [facility] Comment on above: Performed By: #### I FE,URINE, SVETLANA SERUM, UPE RAND, SPE #### [facility] , #### ESR, ADDONUAPLUS, CRP, CBC, CMP #### [facility] [address] Dhryr-2-Axfxtilg 0.2 g/dL Normal 0.0-0.4 [facility] Comment on above: Performed By: #### I FE,URINE, SVETLANA SERUM, UPE RAND, SPE #### [facility] , #### ESR, ADDONUAPLUS, CRP, CBC, CMP #### [address] Xwruk-7-Kmcznvcl 1.0 g/dL Normal 0.4-1.0 [facility] Comment on above: Performed By: #### I FE,URINE, SVETLANA SERUM, UPE RAND, SPE #### [facility] , #### ESR, ADDONUAPLUS, CRP, CBC, CMP #### [address] Beta Globulin 1.0 g/dL Normal 0.7-1.3 [facility] Comment on above: Performed By: #### I FE,URINE, SVETLANA SERUM, UPE RAND, SPE #### [facility] , #### ESR, ADDONUAPLUS, CRP, CBC, CMP #### [address] Gamma Globulin 2.2 g/dL High 0.4-1.8 [facility] Comment on above: Performed By: #### I FE,URINE, SVETLANA SERUM, UPE RAND, SPE #### [facility] , #### ESR, ADDONUAPLUS, CRP, CBC, CMP #### [address] M-Michael Not Observed Normal Not Observed [facility] Comment on above: Performed By: #### I FE,URINE, SVETLANA SERUM, UPE RAND, SPE #### [facility] , #### ESR, ADDONUAPLUS, CRP, CBC, CMP #### [address] Protein [Mass/Vol] 7.9 g/dL Normal 6.0-8.5 [facility] Comment on above: Performed By: #### I FE,URINE, SVETLANA SERUM, UPE RAND, SPE #### [facility] , #### ESR, ADDONUAPLUS, CRP, CBC, CMP #### [address] SPE-Note Normal . [facility] Comment on above: Result Comment: Prot ein electrophoresis scan will follow via computer, mail, or street contractor delivery. Performed at: - [facility] [address] [id number] Loft Rigger: Krunal Nichols PhD, Phone: [phone] PERFORMED BY: [place] [address] PATHOLOGIST MEDICAL DELIVERY TECHNICIAN ADELFO RAMIREZ M.D. Performed By: #### I FE,URINE, SVETLANA SERUM, UPE RAND, SPE #### [facility] , #### ESR, ADDONUAPLUS, CRP, CBC, CMP #### [address] Protein [Mass/volume] in Ser um or PlasmaOrdered By: Carlos Guzmán on 11-24-2023 Protein [Mass/Vol] 8.2 g/dL 6.4-8.9 [facility] Protein [Mass/Vol] 7.9 g/dL 6.0-8.5 [facility] Protein [Mass/volume] in Uri neOrdered By: Carlos Guzmán on 11-24-2023 Protein (U) [Mass/Vol] 40.0 mg/dL Not Estab. [facility] Protein.monoclonal/Protein.t otal in 24 hour Urine by ElectrophoresisOrdered By: Carlos Guzmán on 11-24-2023 Protein.monoclonal Elph (24H U) [Mass fraction] Not observed % Not Observed [facility] Proteinase 3 Ab [Units/volum e] in Serum by ImmunoassayOrdered By: Carlos Guzmán on 11-24-2023 Proteinase 3 Ab IA Qn (S) <0.2 units 0.0-0.9 [facility] RBC Auto (Bld) [#/Vol]Ordere d By: Carlos Guzmán on 11-24-2023 RBC (Bld) [#/Vol] 4.45 10*6/uL 3.90-5.60 [facility] Serum classic neutrophil cyt oplasmic antibody titer by immunofluorescenceOrdered By: Carlos Guzmán on 11-24-2023 Neutrophil cytoplasmic Ab.classic IF (S) [Titer] <1:20 titer Neg:<1:20 [facility] Serum globulin measurement b y calculation (mass/volume)Ordered By: Carlos Guzmán on 11-24-2023 Globulin (S) [Mass/Vol] 4.4 g/dL 2.2-3.9 [facility] Serum homogeneous pattern an tinuclear antibody (VANESSA) titerOrdered By: Carlos Guzmán on 11-24-2023 Homogenous nuclear Ab pattern (S) [Titer] 1:640 . [facility] Comment on above: ICAP nomenclature: A C-1 Serum nuclear antibody titer Ordered By: Carlos Guzmán on 11-24-2023 Nuclear Ab (S) [Titer] Positive . [facility] Comment on above: Negative <1:80 Borde rline 1:80 Positive >1:80 Serum or plasma albumin/glob ulin mass ratioOrdered By: Carlos Guzmán on 11-24-2023 Albumin/Globulin [Mass ratio] 0.9 {ratio} [facility] Albumin/Globulin [Mass ratio] 0.8 {ratio} 0.7-1.7 [facility] Serum or plasma alpha 1 glob ulin measurement by electrophoresis (mass/volume)Ordered By: Carlos Guzmán on 11-24-2023 Alpha 1 globulin Elph [Mass/Vol] 0.2 g/dL 0.0-0.4 [facility] Serum or plasma alpha 2 glob ulin measurement by electrophoresis (mass/volume)Ordered By: Carlos Guzmán on 11-24-2023 Alpha 2 globulin Elph [Mass/Vol] 1.0 g/dL 0.4-1.0 [facility] Serum or plasma anion gap de terminationOrdered By: Carlos Guzmán on 11-24-2023 Anion gap [Moles/Vol] 14.8 mmol/L 6.0-15.0 [facility] Serum or plasma beta globuli n measurement by electrophoresis (mass/volume)Ordered By: Carlos Guzmán on 11-24-2023 Beta globulin Elph [Mass/Vol] 1.0 g/dL 0.7-1.3 [facility] Serum or plasma complement C 3 measurement (mass/volume)Ordered By: Carlos Guzmán on 11-24-2023 Complement C3 [Mass/Vol] 135 mg/dL 82-167 [facility] Comment on above: Performed at: [address] [id number] Director: Krunal Nichols PhD, Phone: [phone] Serum or plasma complement C 4 measurement (mass/volume)Ordered By: Carlos Guzmán on 11-24-2023 Complement C4 [Mass/Vol] 10 mg/dL 12-38 [facility] Serum or plasma gamma globul in measurement by electrophoresis (mass/volume)Ordered By: Carlos Guzmán on 11-24-2023 Gamma globulin Elph [Mass/Vol] 2.2 g/dL 0.4-1.8 [facility] Sodium [Moles/volume] in Ser um or PlasmaOrdered By: Carlos Guzmán on 11-24-2023 Sodium [Moles/Vol] 138 mmol/L 136-145 [facility] Specific gravity Auto test s trip (U) [Rel density]Ordered By: Carlos Guzmán on 11-24-2023 Specific gravity (U) [Rel density] 1.039 1.001-1.03 0 [facility] Squamous epithelial cells de tection in urine sediment by light microscopyOrdered By: Carlos Guzmán on 11-24-2023 Epithelial cells.squamous LM Ql (Urine sed) None seen [HPF] 0-2 [facility] Urea nitrogen [Mass/volume] in Serum or PlasmaOrdered By: Carlos Guzmán on 11-24-2023 Urea nitrogen [Mass/Vol] 15 mg/dL 7-25 [facility] Urine alpha 1 globulin/total protein by electrophoresisOrdered By: Carlos Guzmán on 11-24-2023 Alpha 1 globulin Elph (U) [Mass fraction] 1.3 % . [facility] Urine alpha 2 globulin/total protein ratio by electrophoresisOrdered By: Carlos Guzmán on 11-24-2023 Alpha 2 globulin Elph (U) [Mass fraction] 9.1 % . [facility] Urine bacteria detection by automated methodOrdered By: Carlos Guzmán on 11-24-2023 Bacteria Auto Ql (U) None seen None Seen [facility] Urine beta globulin measurem ent by electrophoresis (mass/volume)Ordered By: Carlos Guzmán on 11-24-2023 Beta globulin Elph (U) [Mass/Vol] 18.7 % . [facility] Urine clarity by refractomet ry automatedOrdered By: Carlos Guzmán on 11-24-2023 Clarity Refractometry automated (U) Clear Clear [facility] Urine glucose measurement by automated test strip (mass/volume)Ordered By: Carlos Guzmán on 11-24-2023 Glucose Auto test strip (U) [Mass/Vol] >=1000 mg/dL Normal [facility] Urine hemoglobin detection b y automated test stripOrdered By: Carlos Guzmán on 11-24-2023 Hemoglobin Auto test strip Ql (U) Negative Negative [facility] Urine leukocyte esterase det ection by automated test stripOrdered By: Carlos Guzmán on 11-24-2023 Leukocyte esterase Auto test strip Ql (U) Negative Negative [facility] Urobilinogen Auto test strip (U) [Mass/Vol]Ordered By: Carlos Guzmán on 11-24-2023 Urobilinogen (U) [Mass/Vol] Normal mg/dL Normal [facility] WBC Auto (Bld) [#/Vol]Ordere d By: Carlos Guzmán on 11-24-2023 WBC (Bld) [#/Vol] 8.9 10*3/uL 4.1-10.5 [facility] pH Auto test strip (U)Ordere d By: Carlos Guzmán on 11-24-2023 pH (U) 5.0 [pH] 5.0-9.0 [facility] Basophils Auto (Bld) [#/Vol] on 10-28-2023 Basophils (Bld) [#/Vol] 0.1 10 3/uL 0.0-0.1 [facility] Basophils/100 WBC Auto (Bld) on 10-28-2023 Basophils/100 WBC (Bld) 0.7 % 0.2-2.0 [facility] Centriole Ab [Titer] in Seru m by Immunofluorescenceon 10-28-2023 Centriole Ab IF (S) [Titer] TNP . [facility] Centromere Ab [Titer] in Ser um by Immunofluorescenceon 10-28-2023 Centromere Ab IF (S) [Titer] TNP . [facility] Eosinophils/100 WBC Auto (Bl d)on 10-28-2023 Eosinophils/100 WBC (Bld) 2.2 % 0.9-7.0 [facility] Erythrocyte distribution wid th Auto (RBC) [Ratio]on 10-28-2023 Erythrocyte distribution width (RBC) [Ratio] 14.6 % 11.0-15.0 [facility] Estimated glomerular filtrat ion rate (GFR) non- Americanon 10-28-2023 GFR/1.73 sq M.predicted among non-blacks MDRD (S/P/Bld) [Vol rate/Area] mL/min/{1.73_m2} >=60 [facility] Globulin Calc (S) [Mass/Vol] on 10-28-2023 Globulin (S) [Mass/Vol] 5.8 g/dL [facility] Hematocrit Auto (Bld) [Volum e fraction]on 10-28-2023 Hematocrit (Bld) [Volume fraction] 40.0 % 42.0-54.0 [facility] Hemoglobin [Mass/volume] in Bloodon 10-28-2023 Hemoglobin (Bld) [Mass/Vol] 13.1 g/dL 14.0-18. 0 [facility] - Chemistry and C hemistry - challengeon 10-28-2023 Albumin [Mass/Vol] 2.8 g/dL 3.4-5.0 [facility] ALP [Catalytic activity/Vol] 94 U/L 46-116 [facility] ALT [Catalytic activity/Vol] 17 U/L 16-63 [facility] AST [Catalytic activity/Vol] 23 U/L 15-37 [facility] Bilirubin [Mass/Vol] 0.6 mg/dL 0.2-1.[address] [facility] Calcium [Mass/Vol] 8.8 mg/dL 8.5-10.1 [facility] Chloride [Moles/Vol] 100 mmol/L 98-[address] [facility] CO2 [Moles/Vol] 28.0 mmol/L 21.0-32.0 [facility] Creatinine [Mass/Vol] 0.80 mg/dL 0.70-1.30 [facility] GFR/1.73 sq M.predicted MDRD (S/P/Bld) [Vol rate/Area] mL/min/{1.73_m2} >=60 [facility] Glucose [Mass/Vol] 135 mg/dL 74-106 [facility] Potassium [Moles/Vol] 4.5 mmol/L 3.5-5.1 [facility] Protein [Mass/Vol] 8.6 g/dL 6.4-8.2 [facility] Sodium [Moles/Vol] 138 mmol/L 136-145 [facility] Urate [Mass/Vol] 4.2 mg/dL 3.5-7.2 [facility] Urea nitrogen [Mass/Vol] 14.0 mg/dL 7.0-18.0 [facility] Urea nitrogen/Creatinine [Mass ratio] 17.5 mg/mg [facility] - Hematology and Cell countson 10-28-2023 ESR (Bld) [Velocity] 62 mm/h <=[address] [facility] Immature granulocytes/100 WBC (Bld) 0.1 % 0.0-0.5 [facility] Leukocytes [#/volume] correc yuniel for nucleated erythrocytes in Blood by Automated counon 10-28-2023 WBC corrected for nucl RBC Auto (Bld) [#/Vol] 7.2 10 3/uL 4.0-11.0 [facility] Lymphocytes Auto (Bld) [#/Vo l]on 10-28-2023 Lymphocytes (Bld) [#/Vol] 1.9 10 3/uL 1.2-3.8 [facility] Lymphocytes/100 WBC Auto (Bl d)on 10-28-2023 Lymphocytes/100 WBC (Bld) 26.6 % 20.5-60.0 [facility] MCH Auto (RBC) [Entitic mass ]on 10-28-2023 MCH (RBC) [Entitic mass] 30.2 pg 25.9-34.0 [facility] MCHC Auto (RBC) [Mass/Vol]on 10-28-2023 MCHC (RBC) [Mass/Vol] 32.8 g/dL 29.9-35.2 [facility] MCV Auto (RBC) [Entitic vol] on 10-28-2023 MCV (RBC) [Entitic vol] 92.2 fL 80.0-94.0 [facility] Midbody Ab [Titer] in Serum by Immunofluorescenceon 10-28-2023 Midbody Ab IF (S) [Titer] TNP . [facility] Mitotic spindle apparatus Ab [Titer] in Serum or Plasma by Immunofluorescenceon 10-28-2023 Mitotic spindle apparatus Ab IF [Titer] TNP . [facility] Monocytes Auto (Bld) [#/Vol] on 10-28-2023 Monocytes (Bld) [#/Vol] 0.8 10 3/uL 0.3-0.8 [facility] Monocytes/100 WBC Auto (Bld) on 10-28-2023 Monocytes/100 WBC (Bld) 10.4 % 1.7-12.0 [facility] Neutrophils Auto (Bld) [#/Vo l]on 10-28-2023 Neutrophils (Bld) [#/Vol] 4.3 10 3/uL 1.4-6.5 [facility] Neutrophils/100 WBC Auto (Bl d)on 10-28-2023 Neutrophils/100 WBC (Bld) 60.0 % 43.0-75.0 [facility] No Panel Informationon 10-28 Anti-Nuclear Antibody Comment 2 Comment . [facility] Comment on above: Pattern Potential Di sease Association Homogeneous Systemic Lupus Erythematosus, Drug Induced Systemic Lupus Erythematosus, Chronic Autoimmune hepatitis, Juvenile Idiopathic Arthritis Speckled Sjogren Syndrome, Systemic Lupus Erythematosus, Subacute Cutaneous Lupus, Lupus, Congenital Heart Block, Mixed Connective Tissue Disease, Scleroderma-diffuse, Scleroderma-Autoimmune Myositis Overlap Syndrome, Systemic Lupus Gebkzhajzupjx-Etxbdjpvzmc-Tmoxkrhhjl Myositis Overlap Syndrome, Systemic Autoimmune Rheumatic Disease, [...] Antiphospholipid Syndrome Performed at: [facility] - [facility] [id number] [place], [place] [id number] Director: Krunal Nichols PhD, Phone: [phone] C-Reactive Protein, Quantitative <0.50 mg/dL <=0.50 [facility] Eosinophils # (Auto) 0.2 10 3/uL 0.0-0.7 [facility] Immature Granulocyte # (Auto) 0.01 10 3/uL 0.00-0.03 [facility] Nuclear dots nuclear Ab prashant bhupendra [Titer] in Serum by Immunofluorescenceon 10-28-2023 Nuclear dots nuclear Ab pattern IF (S) [Titer] TNP . [facility] Nuclear membrane pores nucle ar Ab pattern [Titer] in Serum by Immunofluorescenceon 10-28-2023 Nuclear membrane pores nuclear Ab pattern IF (S) [Titer] TNP . [facility] PCNA extractable nuclear Ab [Titer] in Serum by Immunofluorescenceon 10-28-2023 PCNA extractable nuclear Ab IF (S) [Titer] TN . [facility] Platelet mean volume Auto (B ld) [Entitic vol]on 10-28-2023 Platelet mean volume (Bld) [Entitic vol] 8.9 fL 9.5-13.5 [facility] Platelets Auto (Bld) [#/Vol] on 10-28-2023 Platelets (Bld) [#/Vol] 296 10 3/uL 150-450 [facility] RBC Auto (Bld) [#/Vol]on RBC (Bld) [#/Vol] 4.34 10 6/uL 4.70-6.10 [facility] Serum homogeneous pattern an tinuclear antibody (VANESSA) titeron 10-28-2023 Homogenous nuclear Ab pattern (S) [Titer] 1:640 . [facility] Comment on above: ICAP nomenclature: A C-1 Serum nuclear antibody titer on 10-28-2023 Nuclear Ab (S) [Titer] Positive . [facility] Comment on above: Negative <1:80 Borde rline 1:80 Positive >1:80 Serum nucleolar pattern anti nuclear antibody (VANESSA) titeron 10-28-2023 Nucleolar nuclear Ab pattern (S) [Titer] TNP . [facility] Serum or plasma albumin/glob ulin mass ratioon 10-28-2023 Albumin/Globulin [Mass ratio] 0.5 {ratio} [facility] Serum or plasma anion gap de terminationon 10-28-2023 Anion gap [Moles/Vol] 14.5 mmol/L [facility] Serum or plasma cyclic adeno sine monophosphate measurement (moles/volume)on 10-28-2023 Adenosine monophosphate.cyclic [Moles/Vol] >250 units 0-19 [facility] Comment on above: Negative <20 Weak po sitive 20 - 39 Moderate positive 40 - 59 Strong positive >59Performed at: [facility] [place], [place] [id number] Director: Kruanl Nichols PhD, Phone: [phone] Serum or plasma rheumatoid f actor measurement (units/volume)on 10-28-2023 Rheumatoid factor Qn 183.9 [IU]/mL <14.0 [facility] Comment on above: Results confirmed on dilution.Performed at: [facility] [address] [place], [place] [id number] Director: Krunal Nichols PhD, Phone: [phone] Serum speckled pattern antin uclear antibody (VANESSA) titeron 10-28-2023 Speckled nuclear Ab pattern (S) [Titer] TNP . [facility] Glucose Glucometer (BldC) [M ass/Vol]Ordered By: Erickson Nascimento on 07-04-2023 Glucose [Mass/Vol] 134 mg/dL [facility] Comment on above: Random Glucose Refer ence Range is dependent on time and content of last meal. Glucose of more than 200 mg/dL in a nonstressed, ambulatory subject supports the diagnosis of Diabetes Mellitus. Glucose Poct Glucometerson 1 09-03-2022 Glucose [Mass/Vol] 134 mg/dL Normal [facility] Comment on above: Result Comment: Hiram Glucose Reference Range is dependent on time and content of last meal. Glucose of more than 200 mg/dL in a nonstressed, ambulatory subject supports the diagnosis of Diabetes Mellitus. PERFORMED BY: [facility] [address] [place] [address] PATHOLOGIST MEDICAL DELIVERY TECHNICIAN ADELFO RAMIREZ M.D. Performed By: #### G LOYD ####Point of Care testing, [facility] 07-04-2023 L - -------- Specimen: [id number] Received: 07/04/23 Status: RAQUEL De Oliveira Num: [id number] Spec Type: Surgical Subm Dr: Erickson Nascimento DO Tissues: A Soft Tissue/Surgical Margin-Other than Tumor,Mass,Lip or Natasha (LT ELBOW MASS) Procedures: Kristin KAUR/Zo L4 -------- Age/ Patient Sex Location Account Attending Physician -------- Mariano Gutierrez 73/M [place] [id number] Erickson Nascimento DO -------- SPEC NUM: [id number] RECD: 07/04/23 STATUS: RAQUEL DE OLIVEIRA NUM: [id number] DENISA: 07/04/[address]: Erickson Nascimento DO ENTERED: 07/04/[address] [facility] [address]: SPEC TYPE: Surgical DEPT: S [...] tissue with a rubbery, dubois-pink cut surface. [place] sections are submitted in one cassette labeled A1. -------- Specimen: [id number] Received: 07/04/23 Status: CATRACHITOBri De Oliveira Num: [id number] Spec Type: Surgical Subm Dr: Erickson Nascimento DO Tissues: A Soft Tissue/Surgical Margin-Other than Tumor,Mass,Lip or Natasha (LT ELBOW MASS) Procedures: Kristin KAUR/Micro L4 -------- Patient: Mariano Gutierrez [id number] (Continued) -------- Specimen: [id number] Received: 07/04/23 (Continued) Signed (signature on file) Brandy Keane MD 07/08/23 1545 -------- Specimen: [id number] Received: 07/04/23 Status: RAQUEL Alvino Num: [id number] Spec Type: Surgical Subm Dr: Erickson Nascimento DO Tissues: A Soft Tissue/Surgical Margin-Other than Tumor,Mass,Lip or Natasha (LT ELBOW MASS) Procedures: Kristin KAUR/Zo L4 -------- Patient: Mariano Gutierrez [id number] (Continued) -------- Specimen: [id number] Received: 07/04/23 (Continued) Microscopic Description One H E slide reviewed. The microscopic examination confirms the diagnosis. CPT Codes 10501 -------- -------- Specimen: [id number] Received: 07/04/23 Status: RAQUEL Alvino Num: [id number] Spec Type: Surgical Subm Dr: Erickson Nascimento, Tissues: A Soft Tissue/Surgical Margin-Other than Tumor,Mass,Lip or Natasha (LT ELBOW MASS) Procedures: Kristin KAUR/Zo L4 -------- Patient: Mariano Gutierrez [id number] (Continued) -------- Signed (signature on file) Brandy Keane MD 07/08/23 1545 Normal [facility] XR elbow LT 2Von 02-26-2023 XR elbow LT 2V [facility] [place] [address] XRay Report Signed Patient: Mariano Gutierrez MR#: [id number] : 1950 Acct:[id number] Age/Sex: 72 / M ADM Date: 02/26/23 Loc: [facility] [place]: Type: [facility] Attending Dr: Erickson Nascimento DO [...] Blount Jr., ElizabethOJeferson02/26/2023 2:56 PM Dictation Location: [place] [address] Transcribed By: [facility] 02/26/23 1456 Dictated By: Abdirahman Blount Jr, DO 02/26/23 1455 Signed By: 02/26/23 1456 Normal [facility] GLYCOHEMOGLOBIN A1Con 2022 ADA RECOMMENDATION SEE BELOW [facility] Comment on above: Result Comment: ADA RECOMMENDED LIMIT 4.0 - 6.0 ADA THERAPEUTIC TARGET < 7.0 ACTION SUGGESTED > 7.0 Performed By: #### D ATA1C #### [facility] [address] [place] [address] Dr. Ginger Keane Glucose [Mass/Vol] 123 mg/dL Normal [facility] Comment on above: Performed By: #### D ATA1C #### [facility] [address] [address] [address] Ginger Keane HbA1c (Bld) [Mass fraction] 5.9 % Normal 4.5-6.2 [facility] Comment on above: Performed By: #### D ATA1C #### [facility] [address] [place] [address] Dr. Ginger Keane GLYCOHEMOGLOBIN A1Con 2021 ADA RECOMMENDATION SEE BELOW Normal [facility] Comment on above: Result Comment: ADA RECOMMENDED LIMIT 4.0 - 6.0 ADA THERAPEUTIC TARGET < 7.0 ACTION SUGGESTED > 7.0 Performed By: #### D ATA1C #### [facility] [address] [place] [address] Dr. Ginger Keane Glucose [Mass/Vol] 160 mg/dL Normal [facility] Comment on above: Performed By: #### D ATA1C #### [facility] [address] [place] [address] Dr. Ginger Keane HbA1c (Bld) [Mass fraction] 7.2 % Critically high 4.5 -6.2 [facility] Comment on above: Performed By: #### D ATA1C #### [facility] [address] [place] [address] Dr. Ginger Keane MICROALBUMIN URINEon 022 Albumin, Urine 123.8 ug/mL Normal Not Estab. [facility] Comment on above: Performed By: #### M ALBLC #### [facility] [address] [place] [address] Dr. Ginger Keane CBC AUTO DIFFon 05-15-2022 BASO # 0.1 103/ul Normal 0.0-0.1 [facility] Comment on above: Performed By: #### C BC #### [facility] [address] [place] [address] Dr. Ginger Keane Basophils/100 WBC (Bld) 0.6 % Normal 0.2-2.0 [facility] Comment on above: Performed By: #### C BC #### [facility] [address] [place] [address] Dr. Ginger Keane EO # 0.2 103/ul Normal 0.0-0.7 [facility] Comment on above: Performed By: #### C BC #### [facility] [address] [place] [address] Dr. Ginger Keane Eosinophils/100 WBC (Bld) 2.9 % Normal 0.9-7.0 [facility] Comment on above: Performed By: #### C BC #### [facility] [address] [place] [address] Dr. Ginger Keane Erythrocyte distribution width (RBC) [Ratio] 12.9 % Normal 11.0-15.0 [facility] Comment on above: Performed By: #### C BC #### [facility] [address] [place] [address] Dr. Ginger Keane Hematocrit (Bld) [Volume fraction] 44.3 % Normal 42.0-54.0 [facility] Comment on above: Performed By: #### C BC #### [facility] [address] [place] [address] Dr. Ginger Keane Hemoglobin (Bld) [Mass/Vol] 15.6 g/dL Normal 14.0-18. 0 [facility] Comment on above: Performed By: #### C BC #### [facility] [address] [place] [address] Dr. Ginger Keane IG # 0.01 10e3/ul Normal 0.00-0.03 [facility] Comment on above: Performed By: #### C BC #### [facility] [address] [place] [address] Dr. Ginger Keane IG % 0.1 % Normal 0.0-0.5 [facility] Comment on above: Performed By: #### C BC #### [facility] [address] [place] [address] Dr. Ginger Keane LYMPH # 2.9 103/ul Normal 1.2-3.8 [facility] Comment on above: Performed By: #### C BC #### [facility] [address] [place] [address] Dr. Ginger Keane Lymphocytes/100 WBC (Bld) 34.1 % Normal 20.5-60.0 [facility] Comment on above: Performed By: #### C BC #### [facility] [address] [place] [address] Dr. Ginger Keane MANUAL DIFF REQ NO Normal [facility] Comment on above: Performed By: #### C BC #### [facility] [address] [place] [address] Dr. Ginger Keane MCH (RBC) [Entitic mass] 32.8 pg Normal 25.9-34.0 [facility] Comment on above: Performed By: #### C BC #### [facility] [address] [place] [address] Dr. Ginger Keane MCHC (RBC) [Mass/Vol] 35.2 g/dL Normal 29.9-35.2 [facility] Comment on above: Performed By: #### C BC #### [facility] [address] [place] [address] Dr. Ginger Keane MCV (RBC) [Entitic vol] 93.3 fL Normal 80.0-94.0 [facility] Comment on above: Performed By: #### C BC #### [facility] [address] [place] [address] Dr. Ginger Keane MONO # 0.6 103/ul Normal 0.3-0.8 [facility] Comment on above: Performed By: #### C BC #### [facility] [address] [place] [address] Dr. Ginger Keane Monocytes/100 WBC (Bld) 7.5 % Normal 1.7-12.0 [facility] Comment on above: Performed By: #### C BC #### [facility] [address] [place] [address] Dr. Ginger Keane NEUT # 4.6 103/ul Normal 1.4-6.5 [facility] Comment on above: Performed By: #### C BC #### [facility] [address] [place] [address] Dr. Ginger Keane Neutrophils/100 WBC (Bld) 54.8 % Normal 43.0-75.0 [facility] Comment on above: Performed By: #### C BC #### [facility] [address] [address] [address] Ginger Keane Platelet mean volume (Bld) [Entitic vol] 9.7 fL Normal 9.5-13.5 [facility] Comment on above: Performed By: #### C BC #### [facility] [address] [address] [address] Ginger Keane PLT 260 103/ul Normal 150-450 [facility] Comment on above: Performed By: #### C BC #### [facility] [address] [address] [address] Ginger Keane RBC 4.75 106/ul Normal 4.70-6.10 [facility] Comment on above: Performed By: #### C BC #### [facility] [address] [address] [address] Ginger Keane WBC 8.4 103/ul Normal 4.0-11.0 [facility] Comment on above: Performed By: #### C BC #### [facility] [address] [address] [address] Ginger Keane LIPID PROFILEon 05-15-2022 CHOL-HDL RATIO NORM SEE BELOW Normal [facility] Comment on above: Result Comment: 3.3 - 4.4 LOW RISK 4.4 - 7.1 AVERAGE RISK 7.1 - 11.0 MODERATE RISK >11.0 HIGH RISK Performed By: #### B MP, LIPID, ALT #### [facility] [address] [address] [address] Ginger Keane Cholesterol [Mass/Vol] 119 mg/dL Normal <=200 [facility] Comment on above: Performed By: #### B MP, LIPID, ALT #### [facility] [address] [address] [address] Ginger Keane Cholesterol in HDL [Mass/Vol] 37 mg/dL Critically low 40-60 [facility] Comment on above: Performed By: #### B MP, LIPID, ALT #### [facility] [address] [place] [address] Dr. Ginger Keane Cholesterol in LDL [Mass/Vol] 35.2 mg/dL Normal [facility] Comment on above: Performed By: #### B MP, LIPID, ALT #### [facility] [address] [address] [address] Ginger Keane Cholesterol.total/Cholester ol in HDL [Mass ratio] 3.2 {ratio} Normal [facility] Comment on above: Performed By: #### B MP, LIPID, ALT #### [facility] [address] [address] [address] Ginger Keane HDL NORMAL > or = 60 mg/dl - LO W CARDIOVASCULAR RISK <40 mg/dl - HIGH CARDIOVASCULAR RISK Normal [facility] Comment on above: Performed By: #### B MP, LIPID, ALT #### [facility] [address] [place] [address] Dr. Ginger Keane LDL CALC NORMAL SEE BELOW Normal [facility] Comment on above: Result Comment: <100 mg/dl OPTIMAL 100 - 129 mg/dl NEAR OR ABOVE OPTIMAL 130 - 159 mg/dl BORDERLINE HIGH 160 - 189 mg/dl HIGH >190 mg/dl VERY HIGH Performed By: #### B MP, LIPID, ALT #### [facility] [address] [address] [address] Ginger Keane Triglyceride [Mass/Vol] 234 mg/dL Critically high <=150 [facility] Comment on above: Performed By: #### B MP, LIPID, ALT #### [facility] [address] [address] [address] Ginger Keane VLDL CALC 46.8 mg/dL Normal [facility] Comment on above: Performed By: #### B MP, LIPID, ALT #### [facility] [address] [address] [address] Ginger Keane PROF CHEM 8 (BAS METB)on Anion gap [Moles/Vol] 13.3 mmol/L Normal [facility] Comment on above: Performed By: #### B MP, LIPID, ALT #### [facility] [address] [place] [address] Dr. Ginger Keane Calcium [Mass/Vol] 8.7 mg/dL Normal 8.5-10.1 [facility] Comment on above: Performed By: #### B MP, LIPID, ALT #### [facility] [address] [address] [address] Ginger Keane Chloride [Moles/Vol] 102 mmol/L Normal 98-107 [facility] Comment on above: Performed By: #### B MP, LIPID, ALT #### [facility] [address] [address] [address] Ginger Keane CO2 [Moles/Vol] 26.8 mmol/L Normal 21.0-32.0 [facility] Comment on above: Performed By: #### B MP, LIPID, ALT #### [facility] [address] [address] [address] Ginger Keane Creatinine [Mass/Vol] 0.92 mg/dL Normal 0.70-1.30 [facility] Comment on above: Performed By: #### B MP, LIPID, ALT #### [facility] [address] [address] [address] Ginger Keane EGFR-AF COMORAN >60 Normal >=60 [facility] Comment on above: Performed By: #### B MP, LIPID, ALT #### [facility] [address] [address] [address] Ginger Keane EGFR-NON AF COMORAN >60 Normal >=60 [facility] Comment on above: Performed By: #### B MP, LIPID, ALT #### [facility] [address] [address] [address] Ginger Keane Glucose [Mass/Vol] 161 mg/dL Critically high 74-106 [facility] Comment on above: Performed By: #### B MP, LIPID, ALT #### [facility] [address] [address] [address] Ginger Keane Potassium [Moles/Vol] 4.1 mmol/L Normal 3.5-5.1 [facility] Comment on above: Performed By: #### B MP, LIPID, ALT #### [facility] [address] [address] [address] Ginger Keane Sodium [Moles/Vol] 138 mmol/L Normal 136-145 [facility] Comment on above: Performed By: #### B MP, LIPID, ALT #### [facility] [address] [address] [address] Ginger Keane Urea nitrogen [Mass/Vol] 13.0 mg/dL Normal 7.0-18.0 [facility] Comment on above: Performed By: #### B MP, LIPID, ALT #### [facility] [address] [address] [address] Ginger Keane Urea nitrogen/Creatinine [Mass ratio] 14.1 mg/mg Normal [facility] Comment on above: Performed By: #### B MP, LIPID, ALT #### [facility] [address] [address] [address] Ginger Keane SGPTon 05-15-2022 ALT [Catalytic activity/Vol] 26 U/L Normal 16-63 [facility] Comment on above: Performed By: #### B MP, LIPID, ALT #### [facility] [address] [place] [address] Dr. Ginger Keane GLYCOHEMOGLOBIN A1Con 2021 ADA RECOMMENDATION SEE BELOW Normal [facility] Comment on above: Result Comment: ADA RECOMMENDED LIMIT 4.0 - 6.0 ADA THERAPEUTIC TARGET < 7.0 ACTION SUGGESTED > 7.0 Performed By: #### D ATA1C #### [facility] [address] [place] [address] Dr. Ginger Keane Glucose [Mass/Vol] 146 mg/dL Normal [facility] Comment on above: Performed By: #### D ATA1C #### [facility] [address] [place] [address] Dr. Ginger Keane HbA1c (Bld) [Mass fraction] 6.7 % Critically high 4.5 -6.2 [facility] Comment on above: Performed By: #### D ATA1C #### [facility] [address] [place] [address] Dr. Ginger Keane Vital Signs Date Time Vital Sign Value Performing Clinician Facility 09-24-2024 11:36-0500 Body height 177.8 cm [facility] 09-24-2024 11:36-0500 Body mass index (BMI) [Ratio] 29.9 kg/m2 [facility] 09-24-2024 11:36-0500 Body weight 94.85 kg [facility] 09-24-2024 11:36-0500 Diastolic blood pressure 78 mm[Hg] [facility] 09-24-2024 11:36-0500 Heart rate 88 /min [facility] 09-24-2024 11:36-0500 Respiratory rate 12 /min [facility] 09-24-2024 11:36-0500 SaO2% (BldA) [Mass fraction] 95 % [facility] 09-24-2024 11:36-0500 Systolic blood pressure 132 mm[Hg] [facility] 05-26-2024 13:28-0400 Body height 180.34 cm [facility] 05-26-2024 13:28-0400 Body mass index (BMI) [Ratio] 28.2 kg/m2 [facility] [facility] 05-26-2024 13:28-0400 Body weight 91.73 kg [facility] 05-26-2024 13:28-0400 Diastolic blood pressure 64 mm[Hg] [facility] 05-26-2024 13:28-0400 Heart rate 77 /min [facility] 05-26-2024 13:28-0400 Systolic blood pressure 122 mm[Hg] [facility] 05-17-2024 13:51-0400 Body temperature 97.81 [degF] Angeles Payan [employer] Work Phone: [facility] 05-17-2024 13:51-0400 Body weight 89.81 kg Angeles Payan [employer] Work Phone: [facility] 05-17-2024 13:51-0400 Diastolic blood pressure 80 mm[Hg] Angeles Payan [employer] Work Phone: [facility] 05-17-2024 13:51-0400 Heart rate 111 /min Angeles Payan [employer] Work Phone: [facility] Comment on above: repeat puls 96bpm apical 05-17-2024 13:51-0400 Respiratory rate 20 /min Angeles Payan [employer] Work Phone: [facility] 05-17-2024 13:51-0400 SaO2% (BldA) [Mass fraction] 94 % Angeles Payan [employer] Work Phone: [facility] 05-17-2024 13:51-0400 Systolic blood pressure 122 mm[Hg] Angeles Payan [employer] Work Phone: [facility] 12-30-2023 11:02-0400 Body height 180.34 cm DO Vernon Ball Work Phone: [facility] 12-30-2023 11:02-0400 Body mass index (BMI) [Ratio] 26.4 kg/m2 DO Vernon Ball Work Phone: [facility] 12-30-2023 11:02-0400 Body weight 85.89 kg DO Vernon Ball Work Phone: [facility] 12-30-2023 11:02-0400 Diastolic blood pressure 72 mm[Hg] DO Vernon Ball Work Phone: [facility] 12-30-2023 11:02-0400 Heart rate 93 /min DO Vernon Ball Work Phone: [facility] 12-30-2023 11:02-0400 Respiratory rate 16 /min DO Vernon Ball Work Phone: [facility] 12-30-2023 11:02-0400 Systolic blood pressure 123 mm[Hg] DO Vernon Ball Work Phone: [facility] 10-20-2023 15:23-0500 Body height 180.34 cm [facility] 10-20-2023 15:23-0500 Body mass index (BMI) [Ratio] 25.5 kg/m2 [facility] 10-20-2023 15:23-0500 Body weight 83.09 kg [facility] 10-20-2023 15:23-0500 Diastolic blood pressure 65 mm[Hg] [facility] 10-20-2023 15:23-0500 Heart rate 99 /min [facility] 10-20-2023 15:23-0500 Respiratory rate 20 /min [facility] 10-20-2023 15:23-0500 Systolic blood pressure 126 mm[Hg] [facility] 10-01-2023 10:00-0500 Body height 180.34 cm Vernon Ball Other [facility] 10-01-2023 10:00-0500 Diastolic blood pressure 70 mm[Hg] Vernon Ball Other [facility] 10-01-2023 10:00-0500 SaO2% (BldA) [Mass fraction] 90 % Vernon Ball Other [facility] [employer] Other 10-01-2023 10:00-0500 Systolic blood pressure 124 mm[Hg] Vernon Ball Other [facility] 08-29-2023 10:00-0500 Body height 180.34 cm Vernon Ball Other [facility] 08-29-2023 10:00-0500 Body mass index (BMI) [Ratio] 25.63 kg/m2 Vernon Ball Other [facility] [employer] Other 08-29-2023 10:00-0500 Body weight 83.37 kg Vernon Ball Other [facility] 08-29-2023 10:00-0500 Diastolic blood pressure 63 mm[Hg] Vernon Ball Other [facility] 08-29-2023 10:00-0500 Respiratory rate 20 /min Vernon Ball Other [facility] [employer] Other 08-29-2023 10:00-0500 SaO2% (BldA) [Mass fraction] 84 % Vernon Ball Other [facility] [employer] Other 08-29-2023 10:00-0500 Systolic blood pressure 109 mm[Hg] Vernon Ball Other [facility] 08-12-2023 11:00-0500 Body height 180.34 cm Vernon Ball Other [facility] 08-12-2023 11:00-0500 Body mass index (BMI) [Ratio] 25.55 kg/m2 Vernon Ball Other [facility] [employer] Other 08-12-2023 11:00-0500 Body weight 83.1 kg Vernon Ball Other [facility] [employer] Other 08-12-2023 11:00-0500 Body weight 83.09 kg [facility] 08-12-2023 11:00-0500 Diastolic blood pressure 88 mm[Hg] Vernon Ball Other [facility] 08-12-2023 11:00-0500 Respiratory rate 20 /min Vernon Ball Other [facility] [employer] Other 08-12-2023 11:00-0500 SaO2% (BldA) [Mass fraction] 94 % Vernon Ball Other [place] [email or web address] Other 08-12-2023 11:00-0500 Systolic blood pressure 120 mm[Hg] Vernon Ball Other [facility] 07-10-2023 11:45-0500 Body height 180.34 cm Vernon Ball Other [place] [email or web address] Other 07-10-2023 11:45-0500 Body mass index (BMI) [Ratio] 26.22 kg/m2 Vernon Ball Other [employer] Other 07-10-2023 11:45-0500 Body weight 85.28 kg Vernon Ball Other [employer] Other 07-10-2023 11:45-0500 Diastolic blood pressure 75 mm[Hg] Vernon Ball Other [employer] Other 07-10-2023 11:45-0500 Respiratory rate 16 /min Vernon Ball Other [employer] Other 07-10-2023 11:45-0500 Systolic blood pressure 129 mm[Hg] Vernon Ball Other [employer] Other 07-04-2023 08:03-0400 Diastolic blood pressure 93 mm[Hg] DO Vernon Ball Work Phone: [facility] 07-04-2023 08:03-0400 Heart rate 89 /min DO Vernon Ball Work Phone: [facility] 07-04-2023 08:03-0400 Respiratory rate 16 /min DO Vernon Ball Work Phone: [facility] 07-04-2023 08:03-0400 SaO2% (BldA) [Mass fraction] 93 % DO Vernon Ball Work Phone: [facility] 07-04-2023 08:03-0400 Systolic blood pressure 140 mm[Hg] DO Vernon Ball Work Phone: [facility] 07-04-2023 06:47-0400 Body height 180.34 cm DO Vernon Ball Work Phone: [facility] 07-04-2023 06:47-0400 Body temperature 98.2 [degF] DO Vernon Ball Work Phone: [facility] 07-04-2023 06:47-0400 Body weight 86.18 kg DO Vernon Ball Work Phone: [facility] 07-02-2023 13:45-0400 Body height 180.34 cm Erickson Nascimento Other [employer] Other 07-02-2023 13:45-0400 Body mass index (BMI) [Ratio] 26.5 kg/m2 Erickson Nascimento Other [employer] Other 07-02-2023 13:45-0400 Body weight 86.18 kg Erickson Nascimento Other [employer] Other 05-20-2023 10:00-0400 Body height 180.34 cm Vernon Ball Other [employer] Other 05-20-2023 10:00-0400 Body mass index (BMI) [Ratio] 26.64 kg/m2 Vernon Ball Other [employer] Other 05-20-2023 10:00-0400 Body weight 86.64 kg Vernon Ball Other [employer] Other 05-20-2023 10:00-0400 Diastolic blood pressure 74 mm[Hg] Vernon Ball Other [employer] Other 05-20-2023 10:00-0400 Respiratory rate 12 /min Vernon Ball Other [employer] Other 05-20-2023 10:00-0400 Systolic blood pressure 117 mm[Hg] Vernon Ball Other [employer] Other 02-17-2023 10:30-0400 Body height 180.34 cm Vernon Ball Other [employer] Other 02-17-2023 10:30-0400 Body mass index (BMI) [Ratio] 27.58 kg/m2 Vernon Ball Other [employer] Other 02-17-2023 10:30-0400 Body weight 89.72 kg Vernon Ball Other [employer] Other 02-17-2023 10:30-0400 Diastolic blood pressure 78 mm[Hg] Vernon Ball Other [employer] Other 02-17-2023 10:30-0400 Respiratory rate 12 /min Vernon Ball Other [employer] Other 02-17-2023 10:30-0400 Systolic blood pressure 128 mm[Hg] Vernon Ball Other [employer] Other 11-18-2022 11:30-0400 Body height 180.34 cm Vernon Ball Other [employer] Other 11-18-2022 11:30-0400 Body mass index (BMI) [Ratio] 27.42 kg/m2 Vernon Ball Other [employer] Other 11-18-2022 11:30-0400 Body weight 89.18 kg Vernon Ball Other [employer] Other 11-18-2022 11:30-0400 Diastolic blood pressure 70 mm[Hg] Vernon Ball Other [employer] Other 11-18-2022 11:30-0400 Respiratory rate 12 /min Vernon Ball Other [employer] Other 11-18-2022 11:30-0400 Systolic blood pressure 122 mm[Hg] Vernon Ball Other [employer] Other Encounters Encounter Date Encounter Type Care Provider Facility Start: 09-24-2024 End: 09-24-2024 ambulatory [facility] Work Phone: Start: 09-24-2024 End: 09-24-2024 Patient encounter procedure [facility] Work Phone: Start: 08-17-2024 Non-patient / Non-visit [facility] [employer] Work Phone: Start: 08-03-2024 Non-patient / Non-visit [facility] Work Phone: Start: 07-15-2024 Non-patient / Non-visit [facility] Work Phone: Start: 07-08-2024 Non-patient / Non-visit [facility] Work Phone: Start: 07-01-2024 Non-patient / Non-visit [facility] Work Phone: Start: 05-26-2024 End: 05-26-2024 ambulatory [facility] Work Phone: Start: 05-26-2024 End: 05-26-2024 Patient encounter procedure [facility] Work Phone: Start: 05-24-2024 Patient encounter procedure [facility] Start: 05-17-2024 End: 05-17-2024 ambulatory ANGELES PAYAN Not Available Start: 05-17-2024 End: 05-17-2024 Office outpatient new 45 minutes Angeles Payan [employer] Work Phone: [facility] Comment on above: Closed fracture of m ultiple ribs of left side, initial encounter (Primary Dx); Rib pain on left side Start: 03-11-2024 Non-patient / Non-visit [facility] Work Phone: Start: 12-31-2023 End: 12-31-2023 ambulatory Carlos Guzmán Facility:[facility] Start: 12-30-2023 End: 12-30-2023 ambulatory DO Vernon Greene Work Phone: [facility] Work Phone: Start: 12-30-2023 End: 12-30-2023 Patient encounter procedure DO Vernon Greene Work Phone: [facility] Work Phone: Start: 12-29-2023 Non-patient / Non-visit DO Skinny benz Ball Work Phone: [facility] Work Phone: Start: 12-22-2023 Non-patient / Non-visit DO Skinny benz Ball Work Phone: [facility] Work Phone: Start: 12-09-2023 End: 12-09-2023 ambulatory [facility] Facility:[facility] Start: 12-09-2023 End: 12-09-2023 ambulatory DO Vernon Ball Work Phone: [facility] Work Phone: Start: 12-09-2023 End: 12-09-2023 Patient encounter procedure DO Vernon Ball Work Phone: [facility] [address] Work Phone: Start: 11-26-2023 End: 11-26-2023 ambulatory Vernon Greene Other [facility] [employer] Other Start: 11-26-2023 Telephone encounter Vernon Greene [facility] Start: 11-24-2023 End: 11-24-2023 ambulatory [facility] Facility:[facility] Start: 11-24-2023 End: 11-24-2023 ambulatory DO Vernon Ball Work Phone: [facility] Work Phone: Start: 11-24-2023 End: 11-24-2023 Patient encounter procedure DO Vernon Ball Work Phone: [facility] [address] Work Phone: Start: 10-28-2023 Non-patient / Non-visit DO Skinny benz Ball Work Phone: [facility] Work Phone: Start: 10-20-2023 End: 10-20-2023 ambulatory [facility] Work Phone: Start: 10-20-2023 End: 10-20-2023 Patient encounter procedure [facility] Work Phone: Start: 10-14-2023 Non-patient / Non-visit DO Skinny Greene Work Phone: [facility] Work Phone: Start: 10-07-2023 End: 10-07-2023 ambulatory Vernon Greene Other [employer] Other Start: 10-07-2023 Telephone encounter Vernon Greene [facility] Start: 10-06-2023 End: 10-06-2023 ambulatory Vernon Greene Other [employer] Other Start: 10-06-2023 Telephone encounter Vernon Greene [facility] Start: 10-01-2023 End: 10-01-2023 ambulatory Imad Asaad Other [employer] Other Start: 10-01-2023 Office outpatient vi sit 25 minutes Vernon Greene [facility] Start: 10-01-2023 Telephone encounter Imchet Asachet [employer] Start: 10-01-2023 End: 10-01-2023 Patient encounter procedure [facility]- Start: 09-02-2023 End: 09-02-2023 ambulatory Vernon Greene Other [employer] Other Start: 09-02-2023 Telephone encounter Vernon Greene [facility] Start: 08-29-2023 End: 08-29-2023 ambulatory Vernon Greene Other [employer] Other Start: 08-29-2023 Office outpatient vi sit 25 minutes Vernon Greene [facility] Start: 08-29-2023 End: 08-29-2023 [facility] Work Phone: Start: 08-12-2023 End: 08-12-2023 ambulatory Vernon Greene Other [employer] Other Start: 08-12-2023 Transitional care nicole kleinyesy srvc 14 day discharge Vernon Greene [facility] Start: 08-12-2023 End: 08-12-2023 Patient encounter procedure [facility] Work Phone: Start: 08-06-2023 End: 08-06-2023 ambulatory Vernon Greene Other [employer] Other Start: 08-06-2023 Telephone encounter Vernon Greene [facility] Start: 08-01-2023 End: 08-01-2023 ambulatory Vernon Greene Other [employer] Other Start: 08-01-2023 Telephone encounter Vernon Greene [facility] Start: 07-30-2023 End: 07-30-2023 ambulatory Vernon Greene Other [employer] Other Start: 07-30-2023 Telephone encounter Vernon Greene [facility] Start: 07-16-2023 End: 07-16-2023 ambulatory Navneet Puga Other [employer] Other Start: 07-16-2023 Telephone encounter Navneet Ramires [employer] Start: 07-13-2023 End: 07-13-2023 ambulatory Vernon Greene Other [employer] Other Start: 07-13-2023 Telephone encounter Vernon Greene [facility] Start: 07-10-2023 End: 07-10-2023 ambulatory Vernon Greene Other [employer] Other Start: 07-10-2023 Office outpatient vi sit 25 minutes Vernon Grenee [facility] Start: 07-10-2023 Telephone encounter Vernon Greene [facility] Start: 07-04-2023 Telephone encounter [facility] Start: 07-04-2023 End: 07-04-2023 ambulatory Erickson Nascimento Facility:[facility] Start: 07-04-2023 End: 07-04-2023 Admission to same day surgery center DO Vernon Greene Work Phone: [facility] [place] Start: 07-04-2023 End: 07-04-2023 ambulatory DO Vernon Greene Work Phone: [facility] Work Phone: Start: 07-02-2023 End: 07-02-2023 ambulatory Erickson Nascimento Other [employer] Other Start: 07-02-2023 Office outpatient vi sit 25 minutes Erickson WARE [facility] Start: 05-21-2023 End: 05-21-2023 ambulatory Vernon Greene Other [employer] Other Start: 05-21-2023 Telephone encounter [facility] Start: 05-20-2023 End: 05-20-2023 ambulatory Vernon Greene Other [employer] Other Start: 05-20-2023 Patient encounter procedure Vernon Greene [facility] Start: 02-27-2023 End: 02-27-2023 ambulatory Erickson Nascimento Other [employer] Other Start: 02-27-2023 Telephone encounter Erickson Ramires [facility] Start: 02-26-2023 End: 02-26-2023 ambulatory Erickson Nascimento Facility:[facility] Start: 02-26-2023 End: 02-26-2023 Patient encounter procedure DO Erickson Nascimento Work Phone: [facility] Start: 02-26-2023 End: 02-26-2023 ambulatory DO Erickson Nascimento Work Phone: [facility] Work Phone: Start: 02-26-2023 Office outpatient ne w 45 minutes Erickson Nascimento [facility] Start: 02-17-2023 End: 02-17-2023 ambulatory Vernon Ball Other [employer] Other Start: 02-17-2023 Office outpatient vi sit 25 minutes Vernon Ball [facility] Start: 01-09-2023 End: 01-09-2023 ambulatory Vernon Ball Other [employer] Other Start: 01-09-2023 Telephone encounter Vernon Ball [facility] Start: 12-24-2022 End: 12-24-2022 ambulatory Vernon Ball Other [employer] Other Start: 12-24-2022 Telephone encounter Vernon Ball [facility] Start: 11-26-2022 End: 11-26-2022 ambulatory Vernon Ball Other [employer] Other Start: 11-26-2022 Telephone encounter Vernon Ball [facility] Start: 11-25-2022 End: 11-26-2022 ambulatory VERNON BALL Facility:[facility] Start: 11-18-2022 End: 11-18-2022 ambulatory Vernon Ball Other [employer] Other Start: 11-18-2022 Office outpatient vi sit 25 minutes Vernon Ball [facility] Start: 11-15-2022 End: 11-16-[address] NONE LISTED REQUEST Facility:[facility] Start: 11-07-2022 End: 11-07-2022 ambulatory Vernon Ball Other [employer] Other Start: 11-07-2022 Telephone encounter Vernon Ball [facility] Start: 08-08-2022 End: 08-09-2022 ambulatory VERNON BALL Facility:[facility] Start: 05-15-2022 End: 05-16-2022 ambulatory VERNON BALL Facility:[facility] Start: 05-09-2022 End: 05-10-[address] NONE LISTED REQUEST Facility: Procedures Date Procedure Procedure Detail Performing Clinician Start: 05-17-2024 Radex ribs uni w/posteroant ch minimum 3 views Angeles Payan [employer] Work Phone: Start: 12-09-2023 Plain X-ray of bilat eral hands DO Vernon Greene Work Phone: Start: 12-09-2023 X-ray of both knees DO Vernon [employer] Work Phone: Start: 07-04-2023 Open reduction of fracture with internal fixation DO Vernon [employer] Work Phone: Start: 02-26-2023 Plain X-ray of left elbow DO Erickson Nascimento Work Phone: Start: 05-15-2022 PSA screening VERNON [employer] Comment on above: Performed By: #### [facility] #### [facility] [address] [place] [address] Dr. Ginger Keane Plan of Treatment Date Care Activity Detail Author Start: 11-24-2023 Hemolytic complement CH50 level [facility] Start: 11-24-2023 Hepatitis B core ant ibody measurement [facility] Start: 11-24-2023 [facility] Start: 10-20-2023 Patient referral [facility] Work Phone: Start: 07-04-2023 [facility] 24 hour urine measurement [facility] Adenosine monophosph ate.cyclic [Moles/volume] in Serum or Plasma [facility] Albumin [Mass/volume ] in Serum or Plasma [facility] Albumin/Globulin ratio [facility] Complement C3 [Mass/ volume] in Serum or Plasma [facility] Complement C4 [Mass/ volume] in Serum or Plasma [facility] Comprehensive metabo lic 1999 panel - Serum or Plasma [facility] Comprehensive metabo lic 1999 panel - Serum or Plasma [facility] Electrophoresis: [id number] [facility] Electrophoresis: [id number] [facility] Electrophoresis: beta-globulin [facility] Electrophoresis: gamma globulin [facility] Globulin [Mass/volume] in Serum [facility] Hepatitis B virus elizabeth rface Ab [Presence] in Serum [facility] Hepatitis B virus elizabeth rface Ag [Presence] in Serum or Plasma by Immunoassay [facility] Hepatitis C virus Ig G Ab [Presence] in Serum or Plasma by Immunoassay [facility] Homogenous nuclear A b pattern [Titer] in Serum [facility] IgA [Mass/volume] in Serum or Plasma [facility] IgG [Mass/volume] in Serum or Plasma [facility] IgM [Mass/volume] in Serum or Plasma [facility] Immunofixation for Urine [facility] Kyle light chains.f ree [Mass/volume] in Serum [facility] Kyle light chains.f ree/Lambda light chains.free [Mass Ratio] in Serum [facility] Lambda light chains. free [Mass/volume] in Serum or Plasma [facility] Measurement of monoc lonal protein concentration [facility] Microalbumin [Mass/volume] in Urine [facility] Myeloperoxidase Ab [ Units/volume] in Serum by Immunoassay [facility] Neutrophil cytoplasm ic Ab.classic [Titer] in Serum by Immunofluorescence [facility] Neutrophil cytoplasm ic Ab.perinuclear.atypical [Titer] in Serum by Immunofluorescence [facility] Nuclear Ab [Titer] in Serum [facility] P-ANCA measurement [facility] Patient referral [facility] Work Phone: Protein [Mass/volume ] in Serum or Plasma [facility] Protein [Mass/volume] in Urine [facility] Proteinase 3 Ab [Uni ts/volume] in Serum by Immunoassay [facility] Rheumatoid factor [U nits/volume] in Serum or Plasma [facility] Serum immunofixation [facility] Immunizations Immunization Date Immunization Notes Care Provider Fa oma 05-25-2018 pneumococcal polysaccharide vaccine, 23 valent Vernon Greene Other [facility] 07-01-2017 diphtheria, tetanus toxoids and acellular pertussis vaccine, unspecified formulation Vernon Greene Other [facility] 07-01-2017 pneumococcal conjuga te vaccine, 13 cherri Vernon Laureen Other [facility] Payers Date Payer Category Payer Medicare [employer] MEDIC[employer] ADVANTAGE [facility] [id number] 2023-Present [address] [place] [address] [id number] 1958 Medicare [id number] 1958 Self-pay 1950 Unknown [id number] 1950 Unknown [id number] 1950 Unknown [id number] 9 1950 Unknown [id number] 9 Unknown [id number] Unknown [id number] Unknown [id number] Unknown [id number] Unknown [id number] Unknown [id number] Unknown [id number] Unknown [id number] Social History Date Type Detail Facility Sex Assigned At [employer] Other Start: 1950 Sex Assigned At Male F [facility] Start: 07-04-2023 End: 07-04-2023 Tobacco smoking status NHIS Ex-smoker (finding) [facility] Start: 05-17-2024 Tobacco smoking stat us PAIS Never smoked tobacco [facility] Start: 05-17-2024 Tobacco use and exposure Smokeless tobacco non-user [facility] Start: 05-17-2024 Alcoholic beverage intake Current drinker of alcohol (finding) [facility] Start: 1950 Sex assigned at Not on file N [facility] Start: 09-24-2024 Sex Male (finding) [facility] Goals Date Patient Goal Desired Activity [...] w chest anteroposterior documented in this encounter [facility] 10-06-2023 Evaluation note Encounter Date Diagnosis Assessment Notes Oct, Interstitial lung disease (ICD-10 - J84.9) Oct, Hypoxia (ICD-10 - R09.02) Oct, Nicotine dependence, cigarettes, in remission (ICD-10 - F17.211) Age started 17 1 ppd Age quit 52 [employer] Other 01-31-2024 Evaluation note* Encounter Date Diagnosis [...] as needed. CXR, f/u from COVID infection [employer] Other 12-29-2023 Evaluation note* Encounter Date Diagnosis [...] 1 ppd Age quit 52 Continue abstinence [employer] Other [id number] Evaluation note* Encounter Date Diagnosis Assessment Notes [...] and hypoxia. MDI and oxygen for now. [employer] Other 12-01-2023 Evaluation note* Encounter Date Diagnosis Assessment Notes Treatment Notes Treatment Clinical Notes Aug, Weight loss (ICD-10 - R63.4) [employer] Other 11-09-2023 Evaluation note* Encounter Date Diagnosis [...] or bowel habits. No melena or hematochezia [employer] Other 11-01-2023 Evaluation note* Encounter Date Diagnosis [...] poor healing. I have advised against the correction use of narcotic pain medication. I have [...] Jul, Elbow mass, left (ICD-10 - R22.32) [employer] Other 09-19-2023 Evaluation note* Encounter Date Diagnosis [...] PSA (prostate specific antigen) (ICD-10 - Z12.5) [employer] Other 06-28-2023 Evaluation note* Encounter Date Diagnosis [...] as documented in the electronic medical record. [employer] Other 06-19-2023 Evaluation note* Encounter Date Diagnosis [...] wks. Nontender and mobile. Refer to Orthopedics [facility] [employer] Other 03-27-2023 NotePROCEDURE: XR KNEE LT 3V [...] Electronically authenticated by: VINNY MURILLO Date: 2022-11-25 10:55[facility]03-20-2023 Evaluation note* Encounter Date Diagnosis Assessment [...] Initiate PPI and if no improvement, EGD [employer] Other Evaluation noteNo InformationNort [email or web address] Other Evaluation noteNo assessment information available [facility] Work Phone: Evaluation note* Diagnosis Onset Date Resolution Status Inflammatory polyarthritis a cute [facility] Work Phone: Evaluation note* Diagnosis Onset Date Resolution Status ASHD (arteriosclerotic heart disease) acute [id number] acute Hypoxia acute ILD (interstitial lung disease) acute Inflammatory polyarthritis a cute Nicotine dependence, cigarettes, in remission acute Sinus tachycardia acute [facility] Work Phone: Evaluation note* Diagnosis Onset [...] Type 2 diabetes mellitus with hyperglycemia acute [facility] Work Phone: Evaluation note* Diagnosis [...] Type 2 diabetes mellitus with hyperglycemia acute [facility] Work Phone: Evaluation note* Diagnosis [...] wit h hyperglycemia acute September 24 11:26am [facility] Work Phone: History general Narrative [...] long-term current use of insulin Surgical History [facility] PTCA/STENT 2002 Surgical History [facility] 2006 Hospitalization History SEE SURGICAL [employer] Other History general Narrative - Reported* Type [...] long-term current use of insulin Surgical History [facility] PTCA/STENT 2002 Surgical History [facility] 2006 Surgical History Excision left elbow mass 3 Hospitalization History SEE SURGICAL [employer] Other Hospital Discharge instructions Additional Instructions Orthopedic [...] prescribed. You may take Motrin or Tylenol [id number] if you wish. Follow-up in [address] [facility] [address] [place] [address] [place], [place] [address] [phone] Work Phone: Reason for referral (narrative)* Reason *Waiting for appt Referral for recurrent left Olecranon bursa and SC nodule Diagnosis 1 Olecranon bursitis o f left elbow (M70.22) Diagnosis 2 Subcutaneous nodule (R22.9) Referral Organization [facility] Laureen hampton Referring Provider First Name Vernon Referring Provider Last Name Laureen Referring Provider Specialty Internal Me dicine Referred Organization [facility] Referred Provider Erickson Nascimento Referred Address [address] [place],[address] Referred Provider Specialty Orthopedic S urgery Referral [...] 02/17/2023 11:21:37 AM >received today, sent P2P [employer] Other Reason for referral (narrative)* Reason Referral for screeni ng colonoscopy and EGD Diagnosis 1 Unexplained weight l oss (R63.4) Diagnosis 2 Epigastric discomfor t (R10.13) Diagnosis 3 Serum lipase elevati on (R74.8) Diagnosis 4 Colon cancer screeni ng (Z12.11) Referral Organization [facility] Laureen hampton Referring Provider First Name Vernon Referring Provider Last Name Laureen Referring Provider Specialty Internal Wa leonardo Referred Organization [facility] Referred Provider Rochelle Woodard Referred Address [address] [place], [place],[address] Referred Provider Specialty Gastroentero logy Referral Priority [...] be done within the next 2-3 wks. [employer] Other Summary Purpose Family History Relationship Condition [...] for Visit ASHD (arteriosclerot ic heart disease) [id number] Hypoxia ILD (interstitial lung disease) Inflammatory polyarthritis Nicotine dependence, cigarettes, in remission Sinus tachycardia Chief Complaint 4 Month Follow Up 1 week M35.9;Z11.59;Z79.899;D89.2 Hand pain Knee Pain Reason for Visit ASHD (arteriosclerot ic heart disease) [id number] Hypoxia ILD (interstitial lung disease) Inflammatory polyarthritis [...] CREATED AUTHOR AUTHOR'S ORGANIZ ATION 01/10/2024 [facility] DATE CREATED AUTHOR AUTHOR'S ORGANIZ ATION 05/23/2024 [facility] EPIC Care Teams (unrecognized sec [...] Care Provider Active Start: December 22, 2023 HSONDA Gottlieb Attending Provider Active Start : December [...] BE BASED ON THE PRIMARY CLINICAL RECORDS. [facility] [employer] [facility]. provides no warranty or guarantee of the accuracy or completeness of information in this document.
[2024-09-28 14:08] LABS: Basophils Absolute Auto 0.1 10^3/uL (0.0-0.1); Basophils Percent Auto 0.7 % (0.2-2.0); Eosinophils Absolute Auto 0.2 10^3/uL (0.0-0.7); Eosinophils Percent Auto 2.1 % (0.9-7.0); Hemoglobin 14.4 g/dL (14.0-18.0); Immature Granulocytes Abs Auto 0.02 10^3/uL (0.00-0.03); Immature Granulocytes Pct Auto 0.2 % (0.0-0.5); Lymphocytes Absolute Auto 1.7 10^3/uL (1.2-3.8); Lymphocytes Percent Auto 19.8 % (20.5-60.0); Mean Corpuscular HGB Conc 34.3 g/dL (29.9-35.2); Mean Corpuscular Hemoglobin 31.9 pg (25.9-34.0); Mean Corpuscular Volume 92.9 fL (80.0-94.0); Mean Platelet Volume 9.4 fL (9.5-13.5); Monocytes Absolute Auto 0.7 10^3/uL (0.3-0.8); Monocytes Percent Auto 7.9 % (1.7-12.0); Neutrophils Absolute Auto 5.9 10^3/uL (1.4-6.5); Neutrophils Percent Auto 69.3 % (43.0-75.0); Platelet Count 267 10^3/uL (150-450); Red Blood Count 4.52 10^6/uL (4.70-6.10); Red Cell Distribution Width 13.3 % (11.0-15.0); White Blood Count 8.5 10^3/uL (4.0-11.0)
[2024-09-28 14:26] LABS: Erythrocyte Sedimentation Rate 22 mm/hr (<=20)
[2024-09-28 14:39] LABS: Alanine Aminotransferase 17 U/L (16-63); Albumin Globulin Ratio 0.9; Albumin Level 3.6 g/dL (3.4-5.0); Alkaline Phosphatase 72 U/L (46-116); Aspartate Amino Transferase 10 U/L (15-37); Bilirubin Direct 0.1 mg/dL (0.0-0.2); Bilirubin Total 0.5 mg/dL (0.2-1.0); Estimated GFR (African America >60 (>=60 mL/min/1.73m^2); Estimated GFR (Non-African Ame >60 (>=60 mL/min/1.73m^2); Total Protein 7.6 g/dL (6.4-8.2)
== END 2024-09-28 13:35 | disposition home or self-care (01) ==
LOC: LAB 13:36
PROVIDERS: PCP Internal Medicine; Visit Provider Internal Medicine Rheumatology
DX: M05.79 Rheumatoid arthritis with rheumatoid factor of multiple sites without organ or systems involvement (principal); Z79.899 Other long term (current) drug therapy; E11.65 Type 2 diabetes mellitus with hyperglycemia
CPT/HCPCS: 36415; 80076; 82565; 83036; 85025; 85652

== ENCOUNTER 2024-10-11 12:48 | Outpatient (OUT) | payer MEDICARE, SELFPAY ==
--- OUTSIDE RECORDS SUMMARY | 2024-10-11 13:10 | XMS_ITS | CCD ---
Author Organization [facility] CliniSymi Care Team Providers Care Equipment Tester Name Role Phone Vernon Greene Unavailable VERNON [...] Nascimento Unavailable DO Erickson Nascimento Attending Provider [phone] DO Vernon Greene Primary Care Provider [phone] Navneet Puga Unavailable Asaad, Imad Unavailable DO Vernon Greene Primary Care Provider [phone] MD Carlos Guzmán Attending Provider [phone] Carlos Guzmán Admitting Unavailable Carlos Guzmán Attending [...] SUGAR ONCE EVERY DAY for 90 Active [id number] 200 actuat albuterol 0.09 mg/actuat metered dose [...] 11:00pm Start: 11-18-2022 take 1 capsule by [facility] once daily Omeprazole 40 MG 1 [...] Coronary arteriosclerosis; Translations: [Atherosclerotic heart disease of [place] coronary artery without angina pectoris] Chronic Diabetes [...] sources) H/O: high risk medication; Translations: [Other alf (current) drug therapy] Episodic Other aftercare (2 sources) Other terminal carman (current) drug 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 2-2.0 [facility] Eosinophils/100 WBC Auto (Bl d)on 08-17-2024 Eosinophils/100 WBC (Bld) Automated eosi nophil % 0.9-7.0 [facility] Erythrocyte distribution wid th Auto (RBC) [Ratio]on 08-17-2024 Erythrocyte distribution width (RBC) [Ratio] Erythrocyte distribution width [Ratio] by Automated count 11.0-15.0 [facility] Estimated glomerular filtrat ion rate (GFR) non- Americanon 08-17-2024 GFR/1.73 sq M.predicted among non-blacks MDRD (S/P/Bld) [Vol rate/Area] Estimated glomerular filtration rate (GFR) non- >=60 mL/min/1.7 3m 2 [facility] Hematocrit Auto (Bld) [Volum e fraction]on 08-17-2024 Hematocrit (Bld) [Volume fraction] Hematocrit [Volume Fraction] of Blood by Automated count Low 42.0-54.0 [facility] Hemoglobin [Mass/volume] in Bloodon 08-17-2024 Hemoglobin (Bld) [Mass/Vol] Hemoglobin [Mass/volume] in Blood 14.0-18.0 [facility] Laboratory - Chemistry and C hemistry - challengeon 08-17-2024 Albumin [Mass/Vol] 3.4 g/dL 3.4-5.0 [facility] ALP [Catalytic activity/Vol] 72 U/L 46-116 [facility] ALT [Catalytic activity/Vol] 16 U/L 16-63 [facility] AST [Catalytic activity/Vol] 11 U/L Low 15-37 [facility] Bilirubin [Mass/Vol] 0.6 mg/dL 0.2-1.0 [facility] Creatinine [Mass/Vol] 1.17 mg/dL 0.70-1.30 [facility] GFR/1.73 sq M.predicted MDRD (S/P/Bld) [Vol rate/Area] mL/min/{1.73_m2} >=60 mL/min/1.7 3m 2 [facility] Laboratory - Hematology and Cell countson 08-17-2024 ESR (Bld) [Velocity] 21 mm/h High <=20 [facility] Immature granulocytes/100 WBC (Bld) 0.2 % 0.0-0.5 [facility] Leukocytes [#/volume] correc yuniel for nucleated erythrocytes in Blood by Automated counon 08-17-2024 WBC corrected for nucl RBC Auto (Bld) [#/Vol] Leukocytes [#/volume] corrected for nucleated erythrocytes in Blood by Automated coun 4.0-11.0 [facility] Lymphocytes Auto (Bld) [#/Vo l]on 08-17-2024 Lymphocytes (Bld) [#/Vol] Lymphocytes [#/volume] in Blood by Automated count 1.2-3.8 [facility] Lymphocytes/100 WBC Auto (Bl d)on 08-17-2024 Lymphocytes/100 WBC (Bld) Lymphocytes/10 0 leukocytes in Blood by Automated count 20.5-60.0 [facility] MCH Auto (RBC) [Entitic mass ]on 08-17-2024 MCH (RBC) [Entitic mass] MCH [Entitic ma ss] by Automated count 25.9-34.0 [facility] MCHC Auto (RBC) [Mass/Vol]on 08-17-2024 MCHC (RBC) [Mass/Vol] MCHC [Mass/volume] by Automated count 29.9-35.2 [facility] MCV Auto (RBC) [Entitic vol] on 08-17-2024 MCV (RBC) [Entitic vol] MCV [Entitic vol ume] by Automated count 80.0-94.0 [facility] Monocytes Auto (Bld) [#/Vol] on 08-17-2024 Monocytes (Bld) [#/Vol] Automated blood monocyte count 0.3-0.8 [facility] Monocytes/100 WBC Auto (Bld) on 08-17-2024 Monocytes/100 WBC (Bld) Automated monocyte % 1. 7-12.0 [facility] Neutrophils Auto (Bld) [#/Vo l]on 08-17-2024 Neutrophils (Bld) [#/Vol] Neutrophils [#/volume] in Blood by Automated count High 1.4-6.5 [facility] Neutrophils/100 WBC Auto (Bl d)on 08-17-2024 Neutrophils/100 WBC (Bld) Automated neut rophil % 43.0-75.0 [facility] No Panel Informationon 08-17 Eosinophils # (Auto) 0.2 10 3/uL 0.0-0.7 [facility] Immature Granulocyte # (Auto) 0.02 10 3/uL 0.00-0.03 [facility] Platelet mean volume Auto (B ld) [Entitic vol]on 08-17-2024 Platelet mean volume (Bld) [Entitic vol] Platelet mean volume [Entitic volume] in Blood by Automated count 9.5-13.5 [facility] Platelets Auto (Bld) [#/Vol] on 08-17-2024 Platelets (Bld) [#/Vol] Platelets [#/vol ume] in Blood by Automated count 150-450 [facility] RBC Auto (Bld) [#/Vol]on RBC (Bld) [#/Vol] Erythrocytes [#/volume] in Blood by Automated count Low 4.70-6.10 [facility] Basophils Auto (Bld) [#/Vol] on 08-03-2024 Basophils (Bld) [#/Vol] Automated basoph il count 0.0-0.1 [facility] Basophils/100 WBC Auto (Bld) on 08-03-2024 Basophils/100 WBC (Bld) Automated basophil % 0. 2-2.0 [facility] Eosinophils/100 WBC Auto (Bl d)on 08-03-2024 Eosinophils/100 WBC (Bld) Automated eosi nophil % 0.9-7.0 [facility] Erythrocyte distribution wid th Auto (RBC) [Ratio]on 08-03-2024 Erythrocyte distribution width (RBC) [Ratio] Erythrocyte distribution width [Ratio] by Automated count 11.0-15.0 [facility] Hematocrit Auto (Bld) [Volum e fraction]on 08-03-2024 Hematocrit (Bld) [Volume fraction] Hematocrit [Volume Fraction] of Blood by Automated count Low 42.0-54.0 [facility] Hemoglobin [Mass/volume] in Bloodon 08-03-2024 Hemoglobin (Bld) [Mass/Vol] Hemoglobin [Mass/volume] in Blood Low 14.0-18.0 [facility] Laboratory - Hematology and Cell countson 08-03-2024 ESR (Bld) [Velocity] 22 mm/h High <=20 [facility] Immature granulocytes/100 WBC (Bld) 0.3 % 0.0-0.5 [facility] Leukocytes [#/volume] correc yuniel for nucleated erythrocytes in Blood by Automated counon 08-03-2024 WBC corrected for nucl RBC Auto (Bld) [#/Vol] Leukocytes [#/volume] corrected for nucleated erythrocytes in Blood by Automated coun 4.0-11.0 [facility] Lymphocytes Auto (Bld) [#/Vo l]on 08-03-2024 Lymphocytes (Bld) [#/Vol] Lymphocytes [#/volume] in Blood by Automated count 1.2-3.8 [facility] Lymphocytes/100 WBC Auto (Bl d)on 08-03-2024 Lymphocytes/100 WBC (Bld) Lymphocytes/10 0 leukocytes in Blood by Automated count 20.5-60.0 [facility] MCH Auto (RBC) [Entitic mass ]on 08-03-2024 MCH (RBC) [Entitic mass] MCH [Entitic ma ss] by Automated count 25.9-34.0 [facility] MCHC Auto (RBC) [Mass/Vol]on 08-03-2024 MCHC (RBC) [Mass/Vol] MCHC [Mass/volume] by Automated count 29.9-35.2 [facility] MCV Auto (RBC) [Entitic vol] on 08-03-2024 MCV (RBC) [Entitic vol] MCV [Entitic vol ume] by Automated count 80.0-94.0 [facility] Monocytes Auto (Bld) [#/Vol] on 08-03-2024 Monocytes (Bld) [#/Vol] Automated blood monocyte count 0.3-0.8 [facility] Monocytes/100 WBC Auto (Bld) on 08-03-2024 Monocytes/100 WBC (Bld) Automated monocyte % 1. 7-12.0 [facility] Neutrophils Auto (Bld) [#/Vo l]on 08-03-2024 Neutrophils (Bld) [#/Vol] Neutrophils [#/volume] in Blood by Automated count 1.4-6.5 [facility] Neutrophils/100 WBC Auto (Bl d)on 08-03-2024 Neutrophils/100 WBC (Bld) Automated neut rophil % 43.0-75.0 [facility] No Panel Informationon 08-03 Eosinophils # (Auto) 0.1 10 3/uL 0.0-0.7 [facility] Immature Granulocyte # (Auto) 0.03 10 3/uL 0.00-0.03 [facility] Platelet mean volume Auto (B ld) [Entitic vol]on 08-03-2024 Platelet mean volume (Bld) [Entitic vol] Platelet mean volume [Entitic volume] in Blood by Automated count 9.5-13.5 [facility] Platelets Auto (Bld) [#/Vol] on 08-03-2024 Platelets (Bld) [#/Vol] Platelets [#/vol ume] in Blood by Automated count 150-450 [facility] RBC Auto (Bld) [#/Vol]on RBC (Bld) [#/Vol] Erythrocytes [#/volume] in Blood by Automated count Low 4.70-6.10 [facility] Basophils Auto (Bld) [#/Vol] on 07-15-2024 Basophils (Bld) [#/Vol] Automated basoph il count 0.0-0.1 [facility] Basophils/100 WBC Auto (Bld) on 07-15-2024 Basophils/100 WBC (Bld) Automated basophil % 0. 2-2.0 [facility] Eosinophils/100 WBC Auto (Bl d)on 07-15-2024 Eosinophils/100 WBC (Bld) Automated eosi nophil % 0.9-7.0 [facility] Erythrocyte distribution wid th Auto (RBC) [Ratio]on 07-15-2024 Erythrocyte distribution width (RBC) [Ratio] Erythrocyte distribution width [Ratio] by Automated count 11.0-15.0 [facility] Hematocrit Auto (Bld) [Volum e fraction]on 07-15-2024 Hematocrit (Bld) [Volume fraction] Hematocrit [Volume Fraction] of Blood by Automated count Low 42.0-54.0 [facility] Hemoglobin [Mass/volume] in Bloodon 07-15-2024 Hemoglobin (Bld) [Mass/Vol] Hemoglobin [Mass/volume] in Blood 14.0-18.0 [facility] Laboratory - Hematology and Cell countson 07-15-2024 Immature granulocytes/100 WBC (Bld) 0.2 % 0.0-0.5 [facility] Leukocytes [#/volume] correc yuniel for nucleated erythrocytes in Blood by Automated counon 07-15-2024 WBC corrected for nucl RBC Auto (Bld) [#/Vol] Leukocytes [#/volume] corrected for nucleated erythrocytes in Blood by Automated coun 4.0-11.0 [facility] Lymphocytes Auto (Bld) [#/Vo l]on 07-15-2024 Lymphocytes (Bld) [#/Vol] Lymphocytes [#/volume] in Blood by Automated count 1.2-3.8 [facility] Lymphocytes/100 WBC Auto (Bl d)on 07-15-2024 Lymphocytes/100 WBC (Bld) Lymphocytes/10 0 leukocytes in Blood by Automated count 20.5-60.0 [facility] MCH Auto (RBC) [Entitic mass ]on 07-15-2024 MCH (RBC) [Entitic mass] MCH [Entitic ma ss] by Automated count 25.9-34.0 [facility] MCHC Auto (RBC) [Mass/Vol]on 07-15-2024 MCHC (RBC) [Mass/Vol] MCHC [Mass/volume] by Automated count High 29.9-35.2 [facility] MCV Auto (RBC) [Entitic vol] on 07-15-2024 MCV (RBC) [Entitic vol] MCV [Entitic vol ume] by Automated count 80.0-94.0 [facility] Monocytes Auto (Bld) [#/Vol] on 07-15-2024 Monocytes (Bld) [#/Vol] Automated blood monocyte count High 0.3-0.8 [facility] Monocytes/100 WBC Auto (Bld) on 07-15-2024 Monocytes/100 WBC (Bld) Automated monocyte % 1. 7-12.0 [facility] Neutrophils Auto (Bld) [#/Vo l]on 07-15-2024 Neutrophils (Bld) [#/Vol] Neutrophils [#/volume] in Blood by Automated count 1.4-6.5 [facility] Neutrophils/100 WBC Auto (Bl d)on 07-15-2024 Neutrophils/100 WBC (Bld) Automated neut rophil % 43.0-75.0 [facility] No Panel Informationon 07-15 Eosinophils # (Auto) 0.2 10 3/uL 0.0-0.7 [facility] Immature Granulocyte # (Auto) 0.02 10 3/uL 0.00-0.03 [facility] Platelet mean volume Auto (B ld) [Entitic vol]on 07-15-2024 Platelet mean volume (Bld) [Entitic vol] Platelet mean volume [Entitic volume] in Blood by Automated count 9.5-13.5 [facility] Platelets Auto (Bld) [#/Vol] on 07-15-2024 Platelets (Bld) [#/Vol] Platelets [#/vol ume] in Blood by Automated count 150-450 [facility] RBC Auto (Bld) [#/Vol]on RBC (Bld) [#/Vol] Erythrocytes [#/volume] in Blood by Automated count Low 4.70-6.10 [facility] Basophils Auto (Bld) [#/Vol] on 07-08-2024 Basophils (Bld) [#/Vol] Automated basoph il count 0.0-0.1 [facility] Basophils/100 WBC Auto (Bld) on 07-08-2024 Basophils/100 WBC (Bld) Automated basophil % 0. 2-2.0 [facility] Eosinophils/100 WBC Auto (Bl d)on 07-08-2024 Eosinophils/100 WBC (Bld) Automated eosi nophil % 0.9-7.0 [facility] Erythrocyte distribution wid th Auto (RBC) [Ratio]on 07-08-2024 Erythrocyte distribution width (RBC) [Ratio] Erythrocyte distribution width [Ratio] by Automated count 11.0-15.0 [facility] Estimated glomerular filtrat ion rate (GFR) non- Americanon 07-08-2024 GFR/1.73 sq M.predicted among non-blacks MDRD (S/P/Bld) [Vol rate/Area] Estimated glomerular filtration rate (GFR) non- Low >=60 mL/min/1.7 3m 2 [facility] Hematocrit Auto (Bld) [Volum e fraction]on 07-08-2024 Hematocrit (Bld) [Volume fraction] Hematocrit [Volume Fraction] of Blood by Automated count Low 42.0-54.0 [facility] Hemoglobin [Mass/volume] in Bloodon 07-08-2024 Hemoglobin (Bld) [Mass/Vol] Hemoglobin [Mass/volume] in Blood 14.0-18.0 [facility] Laboratory - Chemistry and C hemistry - challengeon 07-08-2024 Bilirubin Ql (U) Negative NEGATIVE [facility] Glucose (U) [Mass/Vol] mg/dL Abnormal [facility] Ketones Ql (U) TRACE mg/dL Abnormal NEGATIVE [facility] pH (U) 5.5 [pH] 5.0-9.0 [facility] Specific gravity (U) [Rel density] 1.025 1.005-1.02 5 [facility] Urobilinogen Qn (U) 0.2 {Denis'U}/dL 0.2-1.0 [facility] Albumin [Mass/Vol] 3.5 g/dL 3.4-5.0 [facility] ALP [Catalytic activity/Vol] 81 U/L 46-116 [facility] ALT [Catalytic activity/Vol] 22 U/L 16-63 [facility] AST [Catalytic activity/Vol] 9 U/L Low 15-37 [facility] Bilirubin [Mass/Vol] 0.7 mg/dL 0.2-1.0 [facility] Creatinine [Mass/Vol] 1.21 mg/dL 0.70-1.30 [facility] GFR/1.73 sq M.predicted MDRD (S/P/Bld) [Vol rate/Area] mL/min/{1.73_m2} >=60 mL/min/1.7 3m 2 [facility] Laboratory - Hematology and Cell countson 07-08-2024 ESR (Bld) [Velocity] 20 mm/h <=20 [facility] Immature granulocytes/100 WBC (Bld) 0.2 % 0.0-0.5 [facility] Laboratory - Specimen inform ationon 07-08-2024 Appearance (U) CLEAR CLEAR [facility] Color (U) LT. YELLOW YELLOW [facility] Laboratory - Urinalysison Amorphous sediment LM Ql (Urine sed) RARE [facility] Leukocyte esterase Test strip Ql (U) Negative NEGATIVE [facility] Mucus Ql (Urine sed) NONE SEEN NONE SEEN [facility] Nitrite Ql (U) Negative NEGATIVE [facility] Protein Ql (U) 30 mg/dL Abnormal NEG/TRACE [facility] Leukocytes [#/volume] correc yuniel for nucleated erythrocytes in Blood by Automated counon 07-08-2024 WBC corrected for nucl RBC Auto (Bld) [#/Vol] Leukocytes [#/volume] corrected for nucleated erythrocytes in Blood by Automated coun 4.0-11.0 [facility] Lymphocytes Auto (Bld) [#/Vo l]on 07-08-2024 Lymphocytes (Bld) [#/Vol] Lymphocytes [#/volume] in Blood by Automated count 1.2-3.8 [facility] Lymphocytes/100 WBC Auto (Bl d)on 07-08-2024 Lymphocytes/100 WBC (Bld) Lymphocytes/10 0 leukocytes in Blood by Automated count 20.5-60.0 [facility] MCH Auto (RBC) [Entitic mass ]on 07-08-2024 MCH (RBC) [Entitic mass] MCH [Entitic ma ss] by Automated count 25.9-34.0 [facility] MCHC Auto (RBC) [Mass/Vol]on 07-08-2024 MCHC (RBC) [Mass/Vol] MCHC [Mass/volume] by Automated count 29.9-35.2 [facility] MCV Auto (RBC) [Entitic vol] on 07-08-2024 MCV (RBC) [Entitic vol] MCV [Entitic vol ume] by Automated count 80.0-94.0 [facility] Monocytes Auto (Bld) [#/Vol] on 07-08-2024 Monocytes (Bld) [#/Vol] Automated blood monocyte count 0.3-0.8 [facility] Monocytes/100 WBC Auto (Bld) on 07-08-2024 Monocytes/100 WBC (Bld) Automated monocyte % 1. 7-12.0 [facility] Neutrophils Auto (Bld) [#/Vo l]on 07-08-2024 Neutrophils (Bld) [#/Vol] Neutrophils [#/volume] in Blood by Automated count 1.4-6.5 [facility] Neutrophils/100 WBC Auto (Bl d)on 07-08-2024 Neutrophils/100 WBC (Bld) Automated neut rophil % 43.0-75.0 [facility] No Panel Informationon 07-08 Urine Bacteria NONE SEEN #/HPF NONE SEEN [facility] Urine Occult Blood Negative NEGATIVE [facility] Urine Other Casts NONE SEEN #/LPF NONE SEEN [facility] Urine Other Crystals Seen #/HPF Abnormal None Seen [facility] Urine RBC NONE SEEN #/HPF 0-2 [facility] Urine Squamous Epithelial Cells NONE SEEN #/LPF NONE/RARE [facility] Urine WBC NONE SEEN #/HPF NONE SEEN [facility] C-Reactive Protein, Quantitative <0.50 mg/dL <=0.50 [facility] Eosinophils # (Auto) 0.1 10 3/uL 0.0-0.7 [facility] Immature Granulocyte # (Auto) 0.02 10 3/uL 0.00-0.03 [facility] Platelet mean volume Auto (B ld) [Entitic vol]on 07-08-2024 Platelet mean volume (Bld) [Entitic vol] Platelet mean volume [Entitic volume] in Blood by Automated count 9.5-13.5 [facility] Platelets Auto (Bld) [#/Vol] on 07-08-2024 Platelets (Bld) [#/Vol] Platelets [#/vol ume] in Blood by Automated count 150-450 [facility] RBC Auto (Bld) [#/Vol]on RBC (Bld) [#/Vol] Erythrocytes [#/volume] in Blood by Automated count Low 4.70-6.10 [facility] Basophils Auto (Bld) [#/Vol] on 07-01-2024 Basophils (Bld) [#/Vol] Automated basoph il count 0.0-0.1 [facility] Basophils/100 WBC Auto (Bld) on 07-01-2024 Basophils/100 WBC (Bld) Automated basophil % 0. 2-2.0 [facility] Eosinophils/100 WBC Auto (Bl d)on 07-01-2024 Eosinophils/100 WBC (Bld) Automated eosi nophil % 0.9-7.0 [facility] Erythrocyte distribution wid th Auto (RBC) [Ratio]on 07-01-2024 Erythrocyte distribution width (RBC) [Ratio] Erythrocyte distribution width [Ratio] by Automated count 11.0-15.0 [facility] Hematocrit Auto (Bld) [Volum e fraction]on 07-01-2024 Hematocrit (Bld) [Volume fraction] Hematocrit [Volume Fraction] of Blood by Automated count Low 42.0-54.0 [facility] Hemoglobin [Mass/volume] in Bloodon 07-01-2024 Hemoglobin (Bld) [Mass/Vol] Hemoglobin [Mass/volume] in Blood Low 14.0-18.0 [facility] Laboratory - Hematology and Cell countson 07-01-2024 Immature granulocytes/100 WBC (Bld) 0.2 % 0.0-0.5 [facility] Leukocytes [#/volume] correc yuniel for nucleated erythrocytes in Blood by Automated counon 07-01-2024 WBC corrected for nucl RBC Auto (Bld) [#/Vol] Leukocytes [#/volume] corrected for nucleated erythrocytes in Blood by Automated coun 4.0-11.0 [facility] Lymphocytes Auto (Bld) [#/Vo l]on 07-01-2024 Lymphocytes (Bld) [#/Vol] Lymphocytes [#/volume] in Blood by Automated count 1.2-3.8 [facility] Lymphocytes/100 WBC Auto (Bl d)on 07-01-2024 Lymphocytes/100 WBC (Bld) Lymphocytes/10 0 leukocytes in Blood by Automated count 20.5-60.0 [facility] MCH Auto (RBC) [Entitic mass ]on 07-01-2024 MCH (RBC) [Entitic mass] MCH [Entitic ma ss] by Automated count 25.9-34.0 [facility] MCHC Auto (RBC) [Mass/Vol]on 07-01-2024 MCHC (RBC) [Mass/Vol] MCHC [Mass/volume] by Automated count 29.9-35.2 [facility] MCV Auto (RBC) [Entitic vol] on 07-01-2024 MCV (RBC) [Entitic vol] MCV [Entitic vol ume] by Automated count High 80.0-94.0 [facility] Monocytes Auto (Bld) [#/Vol] on 07-01-2024 Monocytes (Bld) [#/Vol] Automated blood monocyte count 0.3-0.8 [facility] Monocytes/100 WBC Auto (Bld) on 07-01-2024 Monocytes/100 WBC (Bld) Automated monocyte % 1. 7-12.0 [facility] Neutrophils Auto (Bld) [#/Vo l]on 07-01-2024 Neutrophils (Bld) [#/Vol] Neutrophils [#/volume] in Blood by Automated count High 1.4-6.5 [facility] Neutrophils/100 WBC Auto (Bl d)on 07-01-2024 Neutrophils/100 WBC (Bld) Automated neut rophil % 43.0-75.0 [facility] No Panel Informationon 07-01 Eosinophils # (Auto) 0.1 10 3/uL 0.0-0.7 [facility] Immature Granulocyte # (Auto) 0.02 10 3/uL 0.00-0.03 [facility] Platelet mean volume Auto (B ld) [Entitic vol]on 07-01-2024 Platelet mean volume (Bld) [Entitic vol] Platelet mean volume [Entitic volume] in Blood by Automated count Low 9.5-13.5 [facility] Platelets Auto (Bld) [#/Vol] on 07-01-2024 Platelets (Bld) [#/Vol] Platelets [#/vol ume] in Blood by Automated count 150-450 [facility] RBC Auto (Bld) [#/Vol]on RBC (Bld) [#/Vol] Erythrocytes [#/volume] in Blood by Automated count Low 4.70-6.10 [facility] XR RIBS 2 VIEWS LEFT WITH CH [...] Electronically Signed Tereso Kauffman M.D. 2024-05-17 12:47:15 [facility] Radiology Study observation (narrative) [facility] XR Ribs Views and Chest PAOr dered By: Elizabeth Kauffman on 05-17-2024 [facility] Work Phone: Hemoglobin [Mass/volume] in Bloodon 03-11-2024 Hemoglobin (Bld) [Mass/Vol] 13.7 g/dL Low 14.0-18. 0 [facility] QuantiFERON TB Goldon 2023 QFTB Criteria Normal . [facility] Physician Group Comment on above: Result Comment: [...] TB Ag Value 0.02 Normal . [facility] Comment on above: Performed By: #### Q UANT TB ####[facility] , Quant TB Gold Plus Negative Normal Negative [facility] Comment on above: Result Comment: [...] interferon gamma. Chemiluminescence immunoassay methodology Performed at: [employer] [id number] Busher Helper: Krunal Nichols PhD, Phone: [phone] PERFORMED BY: [place] [id number] PATHOLOGIST DORR OPERATOR ADELFO RAMIREZ M.D. Performed By: #### Q UANT TB ####[facility] , Quant TB2 Ag Value 0.02 Normal . [facility] Comment on above: Performed By: #### Q UANT TB ####[facility] , Quantiferon Nil Value 0.02 Normal . [facility] Comment on above: Performed By: #### Q UANT TB ####[facility] , Quantiferon TB Mitogen >10.00 Normal . [facility] Comment on above: Performed By: #### Q UANT TB ####[facility] , Glucose mean value [Mass/vol ume] in Blood Estimated from glycated hemoglobinon 12-29-2023 Average glucose Estimated from glycated hemoglobin (Bld) [Mass/Vol] 134 mg/dL [facility] Laboratory - Hematology and Cell countson 12-29-2023 HbA1c (Bld) [Mass fraction] 6.3 % 4.5-6.2 [facility] Comment on above: ADA RECOMMENDED LIMI T 4.0 - 6.0ADA THERAPEUTIC TARGET < 7.0ACTION SUGGESTED> 7.0 XR knee BI 2Von 12-09-2023 XR knee BI 2V [facility] [address] XRay Report Signed Patient: Mariano Gutierrez MR#: [id number] : 1950 Acct:[id number] Age/Sex: 73 / M ADM Date: 12/09/23 Loc: ICXD Room: Type: [facility] Attending Dr: Carlos Guzmán MD Copies to: Carlos Guzmán MD Ordering Provider: Carlos Guzmán MD Date of Service: 12/09/23 XR/XR hand BI 2V: HAND PAIN ([id number]) XR/XR knee BI 2V: KNEE PAIN 2 [...] Gregory Schmidt M.D.12/09/2023 4:00 PM Dictation Location: [place] [address] Transcribed By: [facility] 12/09/23 1600 Dictated By: Gregory Schmidt DO 12/09/23 1556 Signed By: 12/09/23 1600 Normal [facility] VANESSA Antinuclear Antibodieson 11-24-2023 Antinuclear Abs, IFA Positive Critically abnormal . [facility] Comment on above: Result Comment: Nega tive <1:80 Borderline 1:80 Positive >1:80 Performed By: #### K APPA, ANCA PROF, C4, CH50, HBSAB, HBCAB, C3, HCV RX PCR, HBSAG, VANESSA ####[facility] , Homogeneous Pattern 1:640 High . [facility] Comment on above: Result Comment: ICAP nomenclature: [id number] Performed By: #### K APPA, ANCA PROF, C4, CH50, HBSAB, HBCAB, C3, HCV RX PCR, HBSAG, VANESSA ####[facility] , Note 1 Normal . [facility] Comment on above: Result Comment: Prashant huizar Potential Disease Association Homogeneous Systemic Lupus Erythematosus, Drug Induced Systemic Lupus Erythematosus, Chronic Autoimmune hepatitis, Juvenile Idiopathic Arthritis Speckled Sjogren Syndrome, Systemic Lupus Erythematosus, Subacute Cutaneous Lupus, Lupus, Congenital Heart Block, Mixed Connective Tissue Disease, Scleroderma-diffuse, Scleroderma-Autoimmune Myositis Overlap Syndrome, Systemic Lupus Eibwdpnjcnshk-Ukthbdwjnpk-Csbjficlkr Myositis Overlap Syndrome, Systemic Autoimmune Rheumatic Disease, [...] Cytopenias, Linear Scleroderma, Antiphospholipid Syndrome Performed at: [facility] [employer] [id number] Busher Helper: Krunal Nichols PhD, Phone: [phone] Performed By: #### K APPA, ANCA PROF, C4, CH50, HBSAB, HBCAB, C3, HCV RX PCR, HBSAG, VANESSA ####[facility] , ANCA Profile (ANCA+MPO+PR3)o n 11-24-2023 Antimyeloperoxidase (MPO) Abs 1.8 High 0.0-0.9 [facility] Comment on above: Performed By: #### K APPA, ANCA PROF, C4, CH50, HBSAB, HBCAB, C3, HCV RX PCR, HBSAG, VANESSA ####[facility] , Atypical pANCA <1:20 Normal Neg:<1:20 [facility] Comment on above: Result Comment: The atypical pANCA pattern has been observed in a significant percentage of patients with ulcerative colitis, primary sclerosing cholangitis and autoimmune hepatitis. Performed at: [address] [id number] Busher Helper: Blanca Olmedo MD, Phone: [phone] Performed at: [address] [id number] Busher Helper: Krunal Nichols PhD, Phone: [phone] Performed By: #### K APPA, ANCA PROF, C4, CH50, HBSAB, HBCAB, C3, HCV RX PCR, HBSAG, VANESSA ####[facility] , Cytoplasmic (C-ANCA) <1:20 Normal Neg:<1:20 [facility] Comment on above: Performed By: #### K APPA, ANCA PROF, C4, CH50, HBSAB, HBCAB, C3, HCV RX PCR, HBSAG, VANESSA ####[facility] , Perinuclear (P-ANCA) <1:20 Normal Neg:<1:20 [facility] Comment on above: Result Comment: [...] 3 (PR3) Antibodies <0.2 Normal 0.0-0.9 [facility] Comment on above: Result Comment: PERF ORMED BY: [address] [place] [address] PATHOLOGIST DORR OPERATOR ADELFO RAMIREZ M.D. Performed By: #### K APPA, ANCA PROF, C4, CH50, HBSAB, HBCAB, C3, HCV RX PCR, HBSAG, VANESSA ####[facility] , Alanine aminotransferase [En zymatic activity/volume] in Serum or PlasmaOrdered By: Carlos Guzmán on 11-24-2023 ALT [Catalytic activity/Vol] 11 U/L 7-52 [facility] Albumin [Mass/volume] in Ser um or PlasmaOrdered By: Carlos Guzmán on 11-24-2023 Albumin [Mass/Vol] 3.5 g/dL 2.9-4.4 [facility] Albumin [Mass/volume] in Ser um or Plasma by Bromocresol green (BCG) dye binding methoOrdered By: Carlos Guzmán on 11-24-2023 Albumin BCG dye [Mass/Vol] 3.8 g/dL 3.5-5.7 [facility] Albumin/Protein.total in 24 hour Urine by ElectrophoresisOrdered By: Carlos Guzmán on 11-24-2023 Albumin Elph (24H U) [Mass fraction] 50.7 % . [facility] Alkaline phosphatase [Enzyma tic activity/volume] in Serum or PlasmaOrdered By: Carlos Guzmán on 11-24-2023 ALP [Catalytic activity/Vol] 98 U/L 34-104 [facility] Aspartate aminotransferase [ Enzymatic activity/volume] in Serum or PlasmaOrdered By: Carlos Guzmán on 11-24-2023 AST [Catalytic activity/Vol] 15 U/L 13-39 [facility] Automated erythrocytes count in urine sediment (number/area)Ordered By: Carlos Guzmán on 11-24-2023 RBC Auto (Urine sed) [#/Area] None seen [HPF] 0-4 [facility] Automated leukocytes count i n urine sediment (number/area)Ordered By: Carlos Guzmán on 11-24-2023 WBC Auto (Urine sed) [#/Area] 0-1 [HPF] 0-4 [facility] Basophils Auto (Bld) [#/Vol] Ordered By: Carlos Guzmán on 11-24-2023 Basophils (Bld) [#/Vol] 0.1 10*3/uL 0.0-0.2 [facility] Basophils/100 WBC Auto (Bld) Ordered By: Carlos Guzmán on 11-24-2023 Basophils/100 WBC (Bld) 1.1 % . [facility] Bilirubin Test strip Ql (U)O rdered By: Carlos Guzmán on 11-24-2023 Bilirubin Ql (U) Negative Negative [facility] Bilirubin.total [Mass/volume ] in Serum or PlasmaOrdered By: Carlos Guzmán on 11-24-2023 Bilirubin [Mass/Vol] 0.6 mg/dL 0.3-1.0 [facility] C reactive protein [Mass/vol ume] in Serum or PlasmaOrdered By: Carlos Guzmán on 11-24-2023 CRP [Mass/Vol] 0.6 mg/dL 0.0-0.5 [facility] C-Reactive Proteinon 024 C-Reactive Protein 0.6 mg/dL High 0.0-0.5 [facility] Comment on above: Result Comment: PERF ORMED BY: [facility] [address] [place] [address] PATHOLOGIST DORR OPERATOR ADELFO RAMIREZ M.D. Performed By: #### I FE,URINE, SVETLANA SERUM, UPE RAND, SPE #### [facility] , #### ESR, ADDONUAPLUS, CRP, CBC, CMP #### [facility] [address] Calcium [Mass/volume] in Ser um or PlasmaOrdered By: Carlos Guzmán on 11-24-2023 Calcium [Mass/Vol] 9.4 mg/dL 8.6-10.3 [facility] Carbon dioxide, total [Moles /volume] in Serum or PlasmaOrdered By: Carlos Guzmán on 11-24-2023 CO2 [Moles/Vol] 28.5 mmol/L 21.0-31.0 [facility] Chloride [Moles/volume] in S lucila or PlasmaOrdered By: Carlos Guzmán on 11-24-2023 Chloride [Moles/Vol] 99 mmol/L 98-107 [facility] Color Auto (U)Ordered By: Elvia Guzmán on 11-24-2023 Color (U) Yellow Yellow [facility] Complement C3on 11-24-2023 Complement C3 135 mg/dL Normal 82-167 [facility] Comment on above: Result Comment: Perf ormed at: - [facility] [address] [place], [place] [id number] Busher Helper: Krunal Nichols PhD, Phone: [phone] Performed By: #### K APPA, ANCA PROF, C4, CH50, HBSAB, HBCAB, C3, HCV RX PCR, HBSAG, VANESSA ####[facility] , Complement C4on 11-24-2023 Complement C4 10 mg/dL Low 12-38 [facility] Comment on above: Performed By: #### K APPA, ANCA PROF, C4, CH50, HBSAB, HBCAB, C3, HCV RX PCR, HBSAG, VANESSA ####[facility] , Complement Total (CH50)on Complement Total (CH50) 51 Normal >41 [facility] Comment on above: Result [...] determine out of range values. Performed at: [facility] [place] [id number] Busher Helper: Krunal Nichols PhD, Phone: [phone] PERFORMED BY: [place] [address] PATHOLOGIST DORR OPERATOR ADELFO RAMIREZ M.D. Performed By: #### K APPA, ANCA PROF, C4, CH50, HBSAB, HBCAB, C3, HCV RX PCR, HBSAG, VANESSA ####[facility] , Complete Blood Count Auto Di ffon 11-24-2023 Basophils (Bld) [#/Vol] 0.1 10*3/uL Normal 0.0-0.2 [facility] Comment on above: Performed By: #### I FE,URINE, SVETLANA SERUM, UPE RAND, SPE #### [facility] , #### ESR, ADDONUAPLUS, CRP, CBC, CMP #### [address] Basophils/100 WBC (Bld) 1.1 % Normal . [facility] Comment on above: Performed By: #### I FE,URINE, SVETLANA SERUM, UPE RAND, SPE #### [facility] , #### ESR, ADDONUAPLUS, CRP, CBC, CMP #### [address] Eosinophils (Bld) [#/Vol] 0.2 10*3/uL Normal 0.0-0.45 [facility] Comment on above: Performed By: #### I FE,URINE, SVETLANA SERUM, UPE RAND, SPE #### [facility] , #### ESR, ADDONUAPLUS, CRP, CBC, CMP #### [address] Eosinophils/100 WBC (Bld) 2.0 % Normal . [facility] Comment on above: Performed By: #### I FE,URINE, SVETLANA SERUM, UPE RAND, SPE #### [facility] , #### ESR, ADDONUAPLUS, CRP, CBC, CMP #### [address] Erythrocyte distribution width (RBC) [Ratio] 15.0 % High 12.0-14.8 [facility] Comment on above: Performed By: #### I FE,URINE, SVETLANA SERUM, UPE RAND, SPE #### [facility] , #### ESR, ADDONUAPLUS, CRP, CBC, CMP #### [address] Hematocrit (Bld) [Volume fraction] 38.8 % Normal 38.8-50.0 [facility] Comment on above: Performed By: #### I FE,URINE, SVETLANA SERUM, UPE RAND, SPE #### [facility] , #### ESR, ADDONUAPLUS, CRP, CBC, CMP #### [address] Hemoglobin (Bld) [Mass/Vol] 13.3 g/dL Normal 13.0-17. 0 [facility] Comment on above: Performed By: #### I FE,URINE, SVETLANA SERUM, UPE RAND, SPE #### [facility] , #### ESR, ADDONUAPLUS, CRP, CBC, CMP #### [address] Lymphocytes (Bld) [#/Vol] 2.5 10*3/uL Normal 1.00-4.8 [facility] Comment on above: Performed By: #### I FE,URINE, SVETLANA SERUM, UPE RAND, SPE #### [facility] , #### ESR, ADDONUAPLUS, CRP, CBC, CMP #### [address] Lymphocytes/100 WBC (Bld) 28.6 % Normal . [facility] Comment on above: Performed By: #### I FE,URINE, SVETLANA SERUM, UPE RAND, SPE #### [facility] , #### ESR, ADDONUAPLUS, CRP, CBC, CMP #### [address] MCH (RBC) [Entitic mass] 30.0 pg Normal 27.5-35.2 [facility] Comment on above: Performed By: #### I FE,URINE, SVETLANA SERUM, UPE RAND, SPE #### [facility] , #### ESR, ADDONUAPLUS, CRP, CBC, CMP #### [address] MCV (RBC) [Entitic vol] 87.1 fL Normal 83.5-101 T [facility] Comment on above: Performed By: #### I FE,URINE, SVETLANA SERUM, UPE RAND, SPE #### [facility] , #### ESR, ADDONUAPLUS, CRP, CBC, CMP #### [address] Mean Corpuscular HGB Conc 34.4 g/dL Normal 32.5-35.6 [facility] Comment on above: Performed By: #### I FE,URINE, SVETLANA SERUM, UPE RAND, SPE #### [facility] , #### ESR, ADDONUAPLUS, CRP, CBC, CMP #### [address] Monocytes (Bld) [#/Vol] 0.7 10*3/uL Normal 0.0-0.8 [facility] Comment on above: Performed By: #### I FE,URINE, SVETLANA SERUM, UPE RAND, SPE #### [facility] , #### ESR, ADDONUAPLUS, CRP, CBC, CMP #### [place] [address] [place] Monocytes/100 WBC (Bld) 7.8 % Normal . T [facility] Comment on above: Performed By: #### I FE,URINE, SVETLANA SERUM, UPE RAND, SPE #### [facility] , #### ESR, ADDONUAPLUS, CRP, CBC, CMP #### [place] [address] [place] Neutrophils (Bld) [#/Vol] 5.4 10*3/uL Normal 1.8-7.7 [facility] Comment on above: Performed By: #### I FE,URINE, SVETLANA SERUM, UPE RAND, SPE #### [facility] , #### ESR, ADDONUAPLUS, CRP, CBC, CMP #### [place] [address] [place] Neutrophils/100 WBC (Bld) 60.5 % Normal . [facility] Comment on above: Performed By: #### I FE,URINE, SVETLANA SERUM, UPE RAND, SPE #### [facility] , #### ESR, ADDONUAPLUS, CRP, CBC, CMP #### [place] [address] [place] NRBC% 0.0 /100{WBC} Normal 0-0.5 [facility] Comment on above: Performed By: #### I FE,URINE, SVETLANA SERUM, UPE RAND, SPE #### [facility] , #### ESR, ADDONUAPLUS, CRP, CBC, CMP #### [address] Platelet mean volume (Bld) [Entitic vol] 7.9 fL Normal 6.6-10.1 [facility] Comment on above: Performed By: #### I FE,URINE, SVETLANA SERUM, UPE RAND, SPE #### [facility] , #### ESR, ADDONUAPLUS, CRP, CBC, CMP #### [address] Platelets (Bld) [#/Vol] 369 10*3/uL Normal 150-450 [facility] Comment on above: Performed By: #### I FE,URINE, SVETLANA SERUM, UPE RAND, SPE #### [facility] , #### ESR, ADDONUAPLUS, CRP, CBC, CMP #### [address] RBC (Bld) [#/Vol] 4.45 10*6/uL Normal 3.90-5.60 [facility] Comment on above: Performed By: #### I FE,URINE, SVETLANA SERUM, UPE RAND, SPE #### [facility] , #### ESR, ADDONUAPLUS, CRP, CBC, CMP #### [address] WBC (Bld) [#/Vol] 8.9 10*3/uL Normal 4.1-10.5 [facility] Comment on above: Performed By: #### I FE,URINE, SVETLANA SERUM, UPE RAND, SPE #### [facility] , #### ESR, ADDONUAPLUS, CRP, CBC, CMP #### [address] Comprehensive Metabolic Pane jonathon 11-24-2023 Albumin [Mass/Vol] 3.8 g/dL Normal 3.5-5.7 [facility] Comment on above: Performed By: #### I FE,URINE, SVETLANA SERUM, UPE RAND, SPE #### [facility] , #### ESR, ADDONUAPLUS, CRP, CBC, CMP #### [address] Albumin/Globulin [Mass ratio] 0.9 {ratio} Normal [facility] Comment on above: Performed By: #### I FE,URINE, SVETLANA SERUM, UPE RAND, SPE #### [facility] , #### ESR, ADDONUAPLUS, CRP, CBC, CMP #### [address] ALP [Catalytic activity/Vol] 98 U/L Normal 34-104 [facility] Comment on above: Performed By: #### I FE,URINE, SVETLANA SERUM, UPE RAND, SPE #### [facility] , #### ESR, ADDONUAPLUS, CRP, CBC, CMP #### [address] ALT [Catalytic activity/Vol] 11 U/L Normal 7-52 [facility] Comment on above: Performed By: #### I FE,URINE, SVETLANA SERUM, UPE RAND, SPE #### [facility] , #### ESR, ADDONUAPLUS, CRP, CBC, CMP #### [address] Anion gap [Moles/Vol] 14.8 mmol/L Normal 6.0-15.0 e [facility] Comment on above: Performed By: #### I FE,URINE, SVETLANA SERUM, UPE RAND, SPE #### [facility] , #### ESR, ADDONUAPLUS, CRP, CBC, CMP #### [address] AST [Catalytic activity/Vol] 15 U/L Normal 13-39 [facility] Comment on above: Performed By: #### I FE,URINE, SVETLANA SERUM, UPE RAND, SPE #### [facility] , #### ESR, ADDONUAPLUS, CRP, CBC, CMP #### [address] Bilirubin [Mass/Vol] 0.6 mg/dL Normal 0.3-1.0 [facility] Comment on above: Performed By: #### I FE,URINE, SVETLANA SERUM, UPE RAND, SPE #### [facility] , #### ESR, ADDONUAPLUS, CRP, CBC, CMP #### [address] Calcium [Mass/Vol] 9.4 mg/dL Normal 8.6-10.3 [facility] Comment on above: Performed By: #### I FE,URINE, SVETLANA SERUM, UPE RAND, SPE #### [facility] , #### ESR, ADDONUAPLUS, CRP, CBC, CMP #### [address] Chloride [Moles/Vol] 99 mmol/L Normal 98-107 [facility] Comment on above: Performed By: #### I FE,URINE, SVETLANA SERUM, UPE RAND, SPE #### [facility] , #### ESR, ADDONUAPLUS, CRP, CBC, CMP #### [place] [address] [place] CO2 [Moles/Vol] 28.5 mmol/L Normal 21.0-31.0 [facility] Comment on above: Performed By: #### I FE,URINE, SVETLANA SERUM, UPE RAND, SPE #### [facility] , #### ESR, ADDONUAPLUS, CRP, CBC, CMP #### [place] [address] Creatinine [Mass/Vol] 0.73 mg/dL Normal 0.70-1.30 [facility] Comment on above: Performed By: #### I FE,URINE, SVETLANA SERUM, UPE RAND, SPE #### [facility] , #### ESR, ADDONUAPLUS, CRP, CBC, CMP #### [address] GFR/1.73 sq M.predicted MDRD (S/P/Bld) [Vol rate/Area] mL/min/{1.73_m2} Normal [facility] Comment on above: Performed By: #### I FE,URINE, SVETLANA SERUM, UPE RAND, SPE #### [facility] , #### ESR, ADDONUAPLUS, CRP, CBC, CMP #### [address] Globulin (S) [Mass/Vol] 4.4 g/dL High 2.2-3.9 T [facility] Comment on above: Performed By: #### I FE,URINE, SVETLANA SERUM, UPE RAND, SPE #### [facility] , #### ESR, ADDONUAPLUS, CRP, CBC, CMP #### [address] Glucose [Mass/Vol] 105 mg/dL High 70-100 [facility] Comment on above: Result Comment: [facility] Glucose Reference Range is dependent on time and content of last meal. Glucose of more than 200 mg/dL in a nonstressed, ambulatory subject supports the diagnosis of Diabetes Mellitus. ADA recommended reference range Performed By: #### I FE,URINE, SVETLANA SERUM, UPE RAND, SPE #### [facility] , #### ESR, ADDONUAPLUS, CRP, CBC, CMP #### [address] Potassium [Moles/Vol] 4.3 mmol/L Normal 3.5-5.1 [facility] Comment on above: Performed By: #### I FE,URINE, SVETLANA SERUM, UPE RAND, SPE #### [facility] , #### ESR, ADDONUAPLUS, CRP, CBC, CMP #### [facility] [address] Protein [Mass/Vol] 8.2 g/dL Normal 6.4-8.9 [facility] Comment on above: Performed By: #### I FE,URINE, SVETLANA SERUM, UPE RAND, SPE #### [facility] , #### ESR, ADDONUAPLUS, CRP, CBC, CMP #### [facility] [address] [place] [address] Sodium [Moles/Vol] 138 mmol/L Normal 136-145 [facility] Comment on above: Performed By: #### I FE,URINE, SVETLANA SERUM, UPE RAND, SPE #### [facility] , #### ESR, ADDONUAPLUS, CRP, CBC, CMP #### [facility] [address] [place] [address] Urea nitrogen [Mass/Vol] 15 mg/dL Normal 7-25 [facility] Comment on above: Performed By: #### I FE,URINE, SVETLNAA SERUM, UPE RAND, SPE #### [facility] , #### ESR, ADDONUAPLUS, CRP, CBC, CMP #### [facility] [address] [place] [address] Creatinine [Mass/volume] in Serum or PlasmaOrdered By: Carlos Guzmán on 11-24-2023 Creatinine [Mass/Vol] 0.73 mg/dL 0.70-1.30 [facility] Dipstick and Microscopicon 0 11-24-2023 Appearance (U) Clear Normal Clear [facility] Comment on above: Order Comment: Name Collection Type:: Clean-Voided Midstream Performed By: #### I FE,URINE, SVETLANA SERUM, UPE RAND, SPE #### [facility] , #### ESR, ADDONUAPLUS, CRP, CBC, CMP #### [address] Bacteria,Urine None Seen Normal None Seen [facility] Comment on above: Order Comment: Name Collection Type:: Clean-Voided Midstream Performed By: #### I FE,URINE, SVETLANA SERUM, UPE RAND, SPE #### [facility] , #### ESR, ADDONUAPLUS, CRP, CBC, CMP #### [address] Bilirubin,Urine Negative Normal Negative [facility] Comment on above: Order Comment: Name Collection Type:: Clean-Voided Midstream Performed By: #### I FE,URINE, SVETLANA SERUM, UPE RAND, SPE #### [facility] , #### ESR, ADDONUAPLUS, CRP, CBC, CMP #### [address] Color (U) Yellow Normal Yellow [facility] Comment on above: Order Comment: Name Collection Type:: Clean-Voided Midstream Performed By: #### I FE,URINE, SVETLANA SERUM, UPE RAND, SPE #### [facility] , #### ESR, ADDONUAPLUS, CRP, CBC, CMP #### [address] Glucose Ql (U) >=1000 High Normal [facility] Comment on above: Order Comment: Name Collection Type:: Clean-Voided Midstream Performed By: #### I FE,URINE, SVETLANA SERUM, UPE RAND, SPE #### [facility] , #### ESR, ADDONUAPLUS, CRP, CBC, CMP #### [address] Hyaline Casts,Urine 0-8 Normal 0-8 [facility] Comment on above: Order Comment: Name Collection Type:: Clean-Voided Midstream Result Comment: PERF ORMED BY: [address] [address] PATHOLOGIST DORR OPERATOR ADELFO RAMIREZ M.D. Performed By: #### I FE,URINE, SVETLANA SERUM, UPE RAND, SPE #### [facility] , #### ESR, ADDONUAPLUS, CRP, CBC, CMP #### [address] Ketones Ql (U) Trace High Negative [facility] Comment on above: Order Comment: Name Collection Type:: Clean-Voided Midstream Performed By: #### I FE,URINE, SVETLANA SERUM, UPE RAND, SPE #### [facility] , #### ESR, ADDONUAPLUS, CRP, CBC, CMP #### [address] Leukocyte esterase Test strip Ql (U) Negative Normal Negative [facility] Comment on above: Order Comment: Name Collection Type:: Clean-Voided Midstream Performed By: #### I FE,URINE, SVETLANA SERUM, UPE RAND, SPE #### [facility] , #### ESR, ADDONUAPLUS, CRP, CBC, CMP #### [address] [address] Nitrite,Urine Negative Normal Negative [facility] Comment on above: Order Comment: Name Collection Type:: Clean-Voided Midstream Performed By: #### I FE,URINE, SVETLANA SERUM, UPE RAND, SPE #### [facility] , #### ESR, ADDONUAPLUS, CRP, CBC, CMP #### [address] Occult Blood,Urine Negative Normal Negative [facility] Comment on above: Order Comment: Name Collection Type:: Clean-Voided Midstream Performed By: #### I FE,URINE, SVETLANA SERUM, UPE RAND, SPE #### [facility] , #### ESR, ADDONUAPLUS, CRP, CBC, CMP #### [place] [address] pH (U) 5.0 [pH] Normal 5.0-9.0 [facility] Comment on above: Order Comment: Name Collection Type:: Clean-Voided Midstream Performed By: #### I FE,URINE, SVTELANA SERUM, UPE RAND, SPE #### [facility] , #### ESR, ADDONUAPLUS, CRP, CBC, CMP #### [address] Protein (U) [Mass/Vol] 30 mg/dL High Negative Th e [facility] Comment on above: Order Comment: Name Collection Type:: Clean-Voided Midstream Performed By: #### I FE,URINE, SVETLANA SERUM, UPE RAND, SPE #### [facility] , #### ESR, ADDONUAPLUS, CRP, CBC, CMP #### [address] RBC,Urine None Seen Normal 0-4 [facility] Comment on above: Order Comment: Name Collection Type:: Clean-Voided Midstream Performed By: #### I FE,URINE, SVETLANA SERUM, UPE RAND, SPE #### [facility] , #### ESR, ADDONUAPLUS, CRP, CBC, CMP #### [address] Specificy [place],Urine 1.039 High 1.00 1-1.03 0 [facility] Comment on above: Order Comment: Name Collection Type:: Clean-Voided Midstream Performed By: #### I FE,URINE, SVETLANA SERUM, UPE RAND, SPE #### [facility] , #### ESR, ADDONUAPLUS, CRP, CBC, CMP #### [address] Squamous Epithelial Cell,Urine None Seen Normal 0-2 [facility] Comment on above: Order Comment: Name Collection Type:: Clean-Voided Midstream Performed By: #### I FE,URINE, SVETLANA SERUM, UPE RAND, SPE #### [facility] , #### ESR, ADDONUAPLUS, CRP, CBC, CMP #### [facility] [address] [place] [address] Urobilinogen,Urine Normal Normal Normal [facility] Comment on above: Order Comment: Name Collection Type:: Clean-Voided Midstream Performed By: #### I FE,URINE, SVETLANA SERUM, UPE RAND, SPE #### [facility] , #### ESR, ADDONUAPLUS, CRP, CBC, CMP #### [facility] [address] [place] [address] WBC LM.HPF (Urine sed) [#/Area] 0 /[HPF] Normal 0-4 [facility] Comment on above: Order Comment: Name Collection Type:: Clean-Voided Midstream Performed By: #### I FE,URINE, SVETLANA SERUM, UPE RAND, SPE #### [facility] , #### ESR, ADDONUAPLUS, CRP, CBC, CMP #### [address] Eosinophils Auto (Bld) [#/Vo l]Ordered By: Carlos Guzmán on 11-24-2023 Eosinophils (Bld) [#/Vol] 0.2 10*3/uL 0.0-0.45 [facility] Eosinophils/100 WBC Auto (Bl d)Ordered By: Carlos Guzmán on 11-24-2023 Eosinophils/100 WBC (Bld) 2.0 % . [facility] Erythrocyte Sedimentation Ra bibiana 11-24-2023 ESR (Bld) [Velocity] 72 mm/h High 0-19 [facility] Comment on above: Result Comment: PERF ORMED BY: [place] [address] PATHOLOGIST DORR OPERATOR ADELFO RAMIREZ M.D. Performed By: #### I FE,URINE, SVETLANA SERUM, UPE RAND, SPE #### [facility] , #### ESR, ADDONUAPLUS, CRP, CBC, CMP #### [facility] [address] Erythrocyte distribution wid th Auto (RBC) [Ratio]Ordered By: Carlos Guzmán on 11-24-2023 Erythrocyte distribution width (RBC) [Ratio] 15.0 % 12.0-14.8 [facility] Erythrocyte sedimentation ra te by Photometric methodOrdered By: Carlos Guzmán on 11-24-2023 ESR Photometric method (Bld) [Velocity] 72 mm/hr 0-19 [facility] Free K+L LT Chains, Qn, Son 11-24-2023 Free Ellerbe Light Chains, S 127.8 mg/L High 3.3-19.4 [facility] Comment on above: Performed By: #### K APPA, ANCA PROF, C4, CH50, HBSAB, HBCAB, C3, HCV RX PCR, HBSAG, VANESSA ####[facility] , Free Lambda Light Chains, S 171.2 mg/L High 5.7-26.3 [facility] Comment on above: Performed By: #### K APPA, ANCA PROF, C4, CH50, HBSAB, HBCAB, C3, HCV RX PCR, HBSAG, VANESSA ####[facility] , Ellerbe/Lambda Ratio, S 0.75 Normal 0.26-1.65 [facility] Comment on above: Result Comment: Perf ormed at: - [facility] [address] [id number] Busher Helper: Krunal Nichols PhD, Phone: [phone] Performed By: #### K APPA, ANCA PROF, C4, CH50, HBSAB, HBCAB, C3, HCV RX PCR, HBSAG, VANESSA ####[facility] , Gamma globulin/Protein.total in 24 hour Urine by ElectrophoresisOrdered By: Carlos Guzmán on 11-24-2023 Gamma globulin Elph (24H U) [Mass fraction] 20.1 % . [facility] Glucose [Mass/volume] in Ser um or PlasmaOrdered By: Carlos Guzmán on 11-24-2023 Glucose [Mass/Vol] 105 mg/dL 70-100 [facility] Comment on above: ADA recommended refe rence rangeRandom Glucose Reference Range is dependent on time and content of last meal. Glucose of more than 200 mg/dL in a nonstressed, ambulatory subject supports the diagnosis of Diabetes Mellitus. Hematocrit Auto (Bld) [Volum e fraction]Ordered By: Carlos Guzmán on 11-24-2023 Hematocrit (Bld) [Volume fraction] 38.8 % 38.8-50.0 [facility] Hemoglobin [Mass/volume] in BloodOrdered By: Carlos Guzmán on 11-24-2023 Hemoglobin (Bld) [Mass/Vol] 13.3 g/dL 13.0-17. 0 [facility] Hep C Ab wRfx to Qnt PCRon 0 11-24-2023 Hepatitis C Virus Antibody Non-Reactive Normal N on Reactive [facility] Comment on above: Performed By: #### K APPA, ANCA PROF, C4, CH50, HBSAB, HBCAB, C3, HCV RX PCR, HBSAG, VANESSA ####[facility] , Interpretation Hepatitis C Normal . [facility] Comment on above: Result Comment: [...] B Core Antibody Negative Normal Negative [facility] Comment on above: Result Comment: Perf ormed at: - [facility] [address] [id number] Busher Helper: Krunal Nichols PhD, Phone: [phone] Performed By: #### K APPA, ANCA PROF, C4, CH50, HBSAB, HBCAB, C3, HCV RX PCR, HBSAG, VANESSA ####[facility] , Hepatitis B Surface Antibody on 11-24-2023 Hepatitis B Surface Antibody Non-Reactive Normal . [facility] Comment on above: Result Comment: Non Reactive: Inconsistent with immunity, less than 10 mIU/mL Reactive: Consistent with immunity, greater than 9.9 mIU/mL Performed By: #### K APPA, ANCA PROF, C4, CH50, HBSAB, HBCAB, C3, HCV RX PCR, HBSAG, VANESSA ####[facility] , Hepatitis B Surface Antigeno n 11-24-2023 HBsAg Screen Negative Normal Negative [facility] Comment on above: Result Comment: PERF ORMED BY: [facility] [address] [place] [address] PATHOLOGIST DORR OPERATOR ADELFO RAMIREZ M.D. Performed By: #### K APPA, ANCA PROF, C4, CH50, HBSAB, HBCAB, C3, HCV RX PCR, HBSAG, VANESSA ####[facility] , Hepatitis B virus surface Ab [Presence] in SerumOrdered By: Carlos Guzmán on 11-24-2023 HBV surface Ab Ql (S) Non-Reactive . [facility] Comment on above: Non Reactive: Incons istent with immunity, less than 10 mIU/mL Reactive: Consistent with immunity, greater than 9.9 mIU/mL Hepatitis B virus surface Ag [Presence] in Serum or Plasma by ImmunoassayOrdered By: Carlos Guzmán on 11-24-2023 HBV surface Ag IA Ql Negative Negative [facility] Hepatitis C virus IgG Ab [Pr esence] in Serum or Plasma by ImmunoassayOrdered By: Carlos Guzmán on 11-24-2023 HCV IgG IA Ql Non-Reactive Non Reactive [facility] IgA [Mass/volume] in Serum o r PlasmaOrdered By: Carlos Guzmán on 11-24-2023 IgA [Mass/Vol] 399 mg/dL 61-437 [facility] IgG [Mass/volume] in Serum o r PlasmaOrdered By: Carlos Guzmán on 11-24-2023 IgG [Mass/Vol] 2589 mg/dL 603-1613 [facility] IgM [Mass/volume] in Serum o r PlasmaOrdered By: Carlos Guzmán on 11-24-2023 IgM [Mass/Vol] 217 mg/dL 15-143 [facility] Comment on above: Performed at: [facility] [address] [id number] Director: Krunal Nichols PhD, Phone: [phone] Immunofixation for UrineOrde red By: Carlos Guzmán on 11-24-2023 Interpretation Immunofixation (U) [Interp] Comment: . [facility] Comment on above: Presence of monoclon al protein is unclear at this time. Suggestrepeat in 3 to 6 months if clinically indicated.Performed at: [facility] [address] [id number] Director: Krunal Nichols PhD, Phone: [phone] Immunofixation, (SVETLANA), Urine on 11-24-2023 Immunofixation, (SVETLANA), Urine Comment: Normal . [facility] Comment on above: Result Comment: Pres ence of monoclonal protein is unclear at this time. Suggest repeat in 3 to 6 months if clinically indicated. Performed at: [facility] [place] [id number] [place], [place] [id number] Busher Helper: Krunal Nichols PhD, Phone: [phone] Performed By: #### I FE,URINE, SVETLANA SERUM, UPE RAND, SPE ####[facility] ,#### ESR, ADDONUAPLUS, CRP, CBC, CMP ####[facility] [id number] [place] [address] [place] Immunofixation,Serumon 11-23 Immunofixation, Serum Normal . [facility] Comment on above: Result Comment: No m onoclonality detected. Performed By: #### I FE,URINE, SVETLANA SERUM, UPE RAND, SPE #### [facility] , #### ESR, ADDONUAPLUS, CRP, CBC, CMP #### [facility] [address] Immunoglobulin A, Serum 399 mg/dL Normal 61-437 [facility] Comment on above: Performed By: #### I FE,URINE, SVETLANA SERUM, UPE RAND, SPE #### [facility] , #### ESR, ADDONUAPLUS, CRP, CBC, CMP #### [facility] [address] Immunoglobulin G 2589 mg/dL High 603-1613 [facility] Comment on above: Performed By: #### I FE,URINE, SVETLANA SERUM, UPE RAND, SPE #### [facility] , #### ESR, ADDONUAPLUS, CRP, CBC, CMP #### [facility] [address] Immunoglobulin M, Serum 217 mg/dL High 15-143 [facility] Comment on above: Result Comment: Perf ormed at: [facility] [address] [address] [place], [place] [id number] Busher Helper: Krunal Nichols PhD, Phone: [phone] Performed By: #### I FE,URINE, SVETLANA SERUM, UPE RAND, SPE #### [facility] , #### ESR, ADDONUAPLUS, CRP, CBC, CMP #### [facility] [address] Immunoglobulin light chains. kappa.free [Mass/volume] in SerumOrdered By: Carlos Guzmán on 11-24-2023 Immunoglobulin light chains.kappa.free (S) [Mass/Vol] 127.8 mg/L 3.3-19.4 [facility] Immunoglobulin light chains. kappa.free/Immunoglobulin light chains.lambda.free [MassOrdered By: Carlos Guzmán on 11-24-2023 Immunoglobulin light chains.kappa.free/Immunoglo bulin light chains.lambda.free (S) [Mass ratio] 0.75 0.26-1.65 [facility] Comment on above: Performed at: [facility] [id number] [place], [place] [id number] Director: Krunal Nichols PhD, Phone: [phone] Immunoglobulin light chains. lambda.free [Mass/volume] in Serum or PlasmaOrdered By: Carlos Guzmán on 11-24-2023 Immunoglobulin light chains.lambda.free [Mass/Vol] 171.2 mg/L 5.7-26.3 [facility] Ketones Auto test strip (U) [Mass/Vol]Ordered By: Carlos Guzmán on 11-24-2023 Ketones (U) [Mass/Vol] Trace Negative Fi [facility] - UrinalysisOrder ed By: Carlos Guzmán on 11-24-2023 Hyaline casts LM Ql (Urine sed) 0-8 [LPF] 0-8 [facility] Leukocytes [#/volume] correc yuniel for nucleated erythrocytes in Blood by Automated counOrdered By: Carlos Guzmán on 11-24-2023 WBC corrected for nucl RBC Auto (Bld) [#/Vol] 8.9 10*3/uL 4.1-10.5 [facility] Lymphocytes Auto (Bld) [#/Vo l]Ordered By: Carlos Guzmán on 11-24-2023 Lymphocytes (Bld) [#/Vol] 2.5 10*3/uL 1.00-4.8 [facility] Lymphocytes/100 WBC Auto (Bl d)Ordered By: Carlos Guzmán on 11-24-2023 Lymphocytes/100 WBC (Bld) 28.6 % . [facility] MCH Auto (RBC) [Entitic mass ]Ordered By: Carlos Guzmán on 11-24-2023 MCH (RBC) [Entitic mass] 30.0 pg 27.5-35.2 [facility] MCHC Auto (RBC) [Mass/Vol]Or dered By: Carlos Guzmán on 11-24-2023 MCHC (RBC) [Mass/Vol] 34.4 g/dL 32.5-35.6 [facility] MCV Auto (RBC) [Entitic vol] Ordered By: Carlos Guzmán on 11-24-2023 MCV (RBC) [Entitic vol] 87.1 fL 83.5-101 F [facility] Monocytes Auto (Bld) [#/Vol] Ordered By: Carlos Guzmán on 11-24-2023 Monocytes (Bld) [#/Vol] 0.7 10*3/uL 0.0-0.8 [facility] Monocytes/100 WBC Auto (Bld) Ordered By: Carlos Guzmán on 11-24-2023 Monocytes/100 WBC (Bld) 7.8 % . [facility] Myeloperoxidase Ab [Units/vo lume] in Serum by ImmunoassayOrdered By: Carlos Guzmán on 11-24-2023 Myeloperoxidase Ab IA Qn (S) 1.8 units 0.0-0.9 [facility] Neutrophil cytoplasmic Ab.pe rinuclear.atypical [Titer] in Serum by ImmunofluorescenceOrdered By: Carlos Guzmán on 11-24-2023 Neutrophil cytoplasmic Ab.perinuclear.atypical IF (S) [Titer] <1:20 titer Neg:<1:20 [facility] Comment on above: The atypical pANCA p attern has been observed in asignificant percentage of patients with ulcerative colitis,primary sclerosing cholangitis and autoimmune hepatitis.Performed at: [facility] [id number] Director: Blanca Olmedo MD, Phone: [phone] at: [facility] [employer] [id number] Director: Krunal Nichols PhD, Phone: [phone] Neutrophils Auto (Bld) [#/Vo l]Ordered By: Carlos Guzmán on 11-24-2023 Neutrophils (Bld) [#/Vol] 5.4 10*3/uL 1.8-7.7 [facility] Neutrophils/100 WBC Auto (Bl d)Ordered By: Carlos Guzmán on 11-24-2023 Neutrophils/100 WBC (Bld) 60.5 % . [facility] Nitrite Test strip Ql (U)Ord ered By: Carlos Guzmán on 11-24-2023 Nitrite Ql (U) Negative Negative [facility] No Panel InformationOrdered By: Carlos Guzmán on 11-24-2023 Anti-Nuclear Antibody Comment 2 See comment . [facility] Comment on above: Pattern Potential Di sease Association Homogeneous Systemic Lupus Erythematosus, Drug Induced Systemic Lupus Erythematosus, Chronic Autoimmune hepatitis, Juvenile Idiopathic Arthritis Speckled Sjogren Syndrome, Systemic Lupus Erythematosus, Subacute Cutaneous Lupus, Lupus, Congenital Heart Block, Mixed Connective Tissue Disease, Scleroderma-diffuse, Scleroderma-Autoimmune Myositis Overlap Syndrome, Systemic Lupus Nfeuvlyrsbqge-Wdqyhijbglt-Ztomhvtsbb Myositis Overlap Syndrome, Systemic Autoimmune Rheumatic Disease, [...] Cytopenias, Linear Scleroderma, Antiphospholipid Syndrome Performed at: [facility] [id number] [place], [place] [id number] Director: Krunal Nichols PhD, Phone: [phone] Estimated GFR (CKD-EPI) > 60.0 mL/Min [facility] Hepatitis B Core Total Antibody Negative Negative [facility] Comment on above: Performed at: [facility] [address] [id number] Director: Krunal Nichols PhD, Phone: [phone] Hepatitis C Interpretation See comment . [facility] Comment on above: Not infected with HC V unless early or acute infection issuspected (which may be delayed in an immunocompromisedindividual), or other evidence exists to indicate HCVinfection. Perinuclear ANCA (p-ANCA) Antibody <1:20 titer Neg:<1:20 [facility] Comment on above: The presence of [...] only by EIA. Ref. AM J Clin [id number];111:507-513. Pharmacy Creatinine Clearance (Chem N/A [facility] Protein Electrophoresis M-Michael Not observed g/dL Not Observed [facility] Protein Electrophoresis Note See comment . [facility] Comment on above: Protein electrophore sis scan will follow via computer,mail, or warranty coordinator delivery.Performed at: [facility] [address] [id number] Director: Krunal Nichols PhD, Phone: [phone] Serum Immunofixation See comment . [facility] Comment on above: No monoclonality det ected. Total Complement (CH50) 51 U/mL >41 F [facility] Comment on above: Age Male Female 2 [...] determine out of range values.Performed at: - [facility] [id number] Director: Krunal Nichols PhD, Phone: [phone] Urine Random Prot Electrophor Note See comment . [facility] Comment on above: Protein electrophore sis scan will follow via computer,mail, or warranty coordinator delivery. Nucleated erythrocytes [Pres ence] in Blood by Automated countOrdered By: Carlos Guzmán on 11-24-2023 Nucleated RBC Auto Ql (Bld) 0.0 /100{WBC} 0-0.5 [facility] Platelet mean volume Auto (B ld) [Entitic vol]Ordered By: Carlos Guzmán on 11-24-2023 Platelet mean volume (Bld) [Entitic vol] 7.9 fL 6.6-10.1 [facility] Platelets Auto (Bld) [#/Vol] Ordered By: Carlos Guzmán on 11-24-2023 Platelets (Bld) [#/Vol] 369 10*3/uL 150-450 [facility] Potassium [Moles/volume] in Serum or PlasmaOrdered By: Carlos Guzmán on 11-24-2023 Potassium [Moles/Vol] 4.3 mmol/L 3.5-5.1 [facility] Protein Auto test strip (U) [Mass/Vol]Ordered By: Carlos Guzmán on 11-24-2023 Protein (U) [Mass/Vol] 30 mg/dL Negative [facility] Protein Electro, Random Urin sheree 11-24-2023 Albumin, Urine 50.7 % Normal . [facility] Comment on above: Performed By: #### I FE,URINE, SVETLANA SERUM, UPE RAND, SPE ####[facility] ,#### ESR, ADDONUAPLUS, CRP, CBC, CMP ####[facility] [address] Qmjfv-7-Tbplbkht, Urine 1.3 % Normal . [facility] Comment on above: Performed By: #### I FE,URINE, SVETLANA SERUM, UPE RAND, SPE ####[facility] ,#### ESR, ADDONUAPLUS, CRP, CBC, CMP ####[address] Nobgg-0-Bcdzuzva, Urine 9.1 % Normal . [facility] Comment on above: Performed By: #### I FE,URINE, SVETLANA SERUM, UPE RAND, SPE ####[facility] ,#### ESR, ADDONUAPLUS, CRP, CBC, CMP ####[address] Beta Globulin, Urine 18.7 % Normal . [facility] Comment on above: Performed By: #### I FE,URINE, SVETLANA SERUM, UPE RAND, SPE ####[facility] ,#### ESR, ADDONUAPLUS, CRP, CBC, CMP ####[address] Gamma Globulin, Urine 20.1 % Normal . [facility] Comment on above: Performed By: #### I FE,URINE, SVETLANA SERUM, UPE RAND, SPE ####[facility] ,#### ESR, ADDONUAPLUS, CRP, CBC, CMP ####[address] M-Michael % Not Observed Normal Not Observed [facility] Comment on above: Performed By: #### I FE,URINE, SVETLANA SERUM, UPE RAND, SPE ####[facility] ,#### ESR, ADDONUAPLUS, CRP, CBC, CMP ####[address] Please Note: Normal . [facility] Comment on above: Result Comment: Prot ein electrophoresis scan will follow via computer, mail, or warranty coordinator delivery. PERFORMED BY: [facility] [address] [place] [address] PATHOLOGIST DORR OPERATOR ADELFO RAMIREZ M.D. Performed By: #### I FE,URINE, SVETLANA SERUM, UPE RAND, SPE ####[facility] ,#### ESR, ADDONUAPLUS, CRP, CBC, CMP ####[facility] Protein (U) [Mass/Vol] 40.0 mg/dL Normal Not Estab. Th e [facility] Comment on above: Performed By: #### I FE,URINE, SVETLANA SERUM, UPE RAND, SPE ####[facility] ,#### ESR, ADDONUAPLUS, CRP, CBC, CMP ####[facility] Protein Electrophoresis, Ser umon 11-24-2023 Albumin [Mass/Vol] 3.5 g/dL Normal 2.9-4.4 [facility] Comment on above: Performed By: #### I FE,URINE, SVETLANA SERUM, UPE RAND, SPE #### [facility] , #### ESR, ADDONUAPLUS, CRP, CBC, CMP #### [facility] [address] Albumin/Globulin [Mass ratio] 0.8 {ratio} Normal 0.7-1.7 [facility] Comment on above: Performed By: #### I FE,URINE, SVETLANA SERUM, UPE RAND, SPE #### [facility] , #### ESR, ADDONUAPLUS, CRP, CBC, CMP #### [facility] [address] Vdmtp-5-Bxgbtset 0.2 g/dL Normal 0.0-0.4 [facility] Comment on above: Performed By: #### I FE,URINE, SVETLANA SERUM, UPE RAND, SPE #### [facility] , #### ESR, ADDONUAPLUS, CRP, CBC, CMP #### [address] Honde-9-Ausnzhqg 1.0 g/dL Normal 0.4-1.0 [facility] Comment on above: Performed By: #### I FE,URINE, SVETLANA SERUM, UPE RAND, SPE #### [facility] , #### ESR, ADDONUAPLUS, CRP, CBC, CMP #### [address] Beta Globulin 1.0 g/dL Normal 0.7-1.3 [facility] Comment on above: Performed By: #### I FE,URINE, SVETLANA SERUM, UPE RAND, SPE #### [facility] , #### ESR, ADDONUAPLUS, CRP, CBC, CMP #### [address] Gamma Globulin 2.2 g/dL High 0.4-1.8 [facility] Comment on above: Performed By: #### I FE,URINE, SVETLANA SERUM, UPE RAND, SPE #### [facility] , #### ESR, ADDONUAPLUS, CRP, CBC, CMP #### [address] M-Michael Not Observed Normal Not Observed [facility] Comment on above: Performed By: #### I FE,URINE, SVETLANA SERUM, UPE RAND, SPE #### [facility] , #### ESR, ADDONUAPLUS, CRP, CBC, CMP #### [address] Protein [Mass/Vol] 7.9 g/dL Normal 6.0-8.5 [facility] Comment on above: Performed By: #### I FE,URINE, SVETLANA SERUM, UPE RAND, SPE #### [facility] , #### ESR, ADDONUAPLUS, CRP, CBC, CMP #### [address] SPE-Note Normal . [facility] Comment on above: Result Comment: Prot ein electrophoresis scan will follow via computer, mail, or warranty coordinator delivery. Performed at: - [facility] [address] [id number] Busher Helper: Krunal Nichols PhD, Phone: [phone] PERFORMED BY: [place] [address] PATHOLOGIST DORR OPERATOR ADELFO RAMIREZ M.D. Performed By: #### I FE,URINE, SVETLANA SERUM, UPE RAND, SPE #### [facility] , #### ESR, ADDONUAPLUS, CRP, CBC, CMP #### [address] Protein [Mass/volume] in Ser um or PlasmaOrdered By: Carlos Guzmán on 11-24-2023 Protein [Mass/Vol] 8.2 g/dL 6.4-8.9 [facility] Protein [Mass/Vol] 7.9 g/dL 6.0-8.5 [facility] Protein [Mass/volume] in Uri neOrdered By: Carlos Guzmán on 11-24-2023 Protein (U) [Mass/Vol] 40.0 mg/dL Not Estab. [facility] Protein.monoclonal/Protein.t otal in 24 hour Urine by ElectrophoresisOrdered By: Carlos Guzmán on 11-24-2023 Protein.monoclonal Elph (24H U) [Mass fraction] Not observed % Not Observed [facility] Proteinase 3 Ab [Units/volum e] in Serum by ImmunoassayOrdered By: Carlos Guzmán on 11-24-2023 Proteinase 3 Ab IA Qn (S) <0.2 units 0.0-0.9 [facility] RBC Auto (Bld) [#/Vol]Ordere d By: Carlos Guzmán on 11-24-2023 RBC (Bld) [#/Vol] 4.45 10*6/uL 3.90-5.60 [facility] Serum classic neutrophil cyt oplasmic antibody titer by immunofluorescenceOrdered By: Carlos Guzmán on 11-24-2023 Neutrophil cytoplasmic Ab.classic IF (S) [Titer] <1:20 titer Neg:<1:20 [facility] Serum globulin measurement b y calculation (mass/volume)Ordered By: Carlos Guzmán on 11-24-2023 Globulin (S) [Mass/Vol] 4.4 g/dL 2.2-3.9 [facility] Serum homogeneous pattern an tinuclear antibody (VANESSA) titerOrdered By: Carlos Guzmán on 11-24-2023 Homogenous nuclear Ab pattern (S) [Titer] 1:640 . [facility] Comment on above: ICAP nomenclature: A C-1 Serum nuclear antibody titer Ordered By: Carlos Guzmán on 11-24-2023 Nuclear Ab (S) [Titer] Positive . [facility] Comment on above: Negative <1:80 Borde rline 1:80 Positive >1:80 Serum or plasma albumin/glob ulin mass ratioOrdered By: Carlos Guzmán on 11-24-2023 Albumin/Globulin [Mass ratio] 0.9 {ratio} [facility] Albumin/Globulin [Mass ratio] 0.8 {ratio} 0.7-1.7 [facility] Serum or plasma alpha 1 glob ulin measurement by electrophoresis (mass/volume)Ordered By: Carlos Guzmán on 11-24-2023 Alpha 1 globulin Elph [Mass/Vol] 0.2 g/dL 0.0-0.4 [facility] Serum or plasma alpha 2 glob ulin measurement by electrophoresis (mass/volume)Ordered By: Carlos Guzmán on 11-24-2023 Alpha 2 globulin Elph [Mass/Vol] 1.0 g/dL 0.4-1.0 [facility] Serum or plasma anion gap de terminationOrdered By: Carlos Guzmán on 11-24-2023 Anion gap [Moles/Vol] 14.8 mmol/L 6.0-15.[address] [facility] Serum or plasma beta globuli n measurement by electrophoresis (mass/volume)Ordered By: Carlos Guzmán on 11-24-2023 Beta globulin Elph [Mass/Vol] 1.0 g/dL 0.7-1.3 [facility] Serum or plasma complement C 3 measurement (mass/volume)Ordered By: Carlos Guzmán on 11-24-2023 Complement C3 [Mass/Vol] 135 mg/dL 82-167 [facility] Comment on above: Performed at: [address] [id number] Director: Krunal Nichols PhD, Phone: [phone] Serum or plasma complement C 4 measurement (mass/volume)Ordered By: Carlos Guzmán on 11-24-2023 Complement C4 [Mass/Vol] 10 mg/dL 12-38 [facility] Serum or plasma gamma globul in measurement by electrophoresis (mass/volume)Ordered By: Carlos Guzmán on 11-24-2023 Gamma globulin Elph [Mass/Vol] 2.2 g/dL 0.4-1.8 [facility] Sodium [Moles/volume] in Ser um or PlasmaOrdered By: Carlos Guzmán on 11-24-2023 Sodium [Moles/Vol] 138 mmol/L 136-145 [facility] Specific gravity Auto test s trip (U) [Rel density]Ordered By: Carlos Guzmán on 11-24-2023 Specific gravity (U) [Rel density] 1.039 1.001-1.03 0 [facility] Squamous epithelial cells de tection in urine sediment by light microscopyOrdered By: Carlos Guzmán on 11-24-2023 Epithelial cells.squamous LM Ql (Urine sed) None seen [HPF] 0-2 [facility] Urea nitrogen [Mass/volume] in Serum or PlasmaOrdered By: Carlos Guzmán on 11-24-2023 Urea nitrogen [Mass/Vol] 15 mg/dL 7-25 [facility] Urine alpha 1 globulin/total protein by electrophoresisOrdered By: Carlos Guzmán on 11-24-2023 Alpha 1 globulin Elph (U) [Mass fraction] 1.3 % . [facility] Urine alpha 2 globulin/total protein ratio by electrophoresisOrdered By: Carlos Guzmán on 11-24-2023 Alpha 2 globulin Elph (U) [Mass fraction] 9.1 % . [facility] Urine bacteria detection by automated methodOrdered By: Carlos Guzmán on 11-24-2023 Bacteria Auto Ql (U) None seen None Seen [facility] Urine beta globulin measurem ent by electrophoresis (mass/volume)Ordered By: Carlos Guzmán on 11-24-2023 Beta globulin Elph (U) [Mass/Vol] 18.7 % . [facility] Urine clarity by refractomet ry automatedOrdered By: Carlos Guzmán on 11-24-2023 Clarity Refractometry automated (U) Clear Clear [facility] Urine glucose measurement by automated test strip (mass/volume)Ordered By: Carlos Guzmán on 11-24-2023 Glucose Auto test strip (U) [Mass/Vol] >=1000 mg/dL Normal [facility] Urine hemoglobin detection b y automated test stripOrdered By: Carlos Guzmán on 11-24-2023 Hemoglobin Auto test strip Ql (U) Negative Negative [facility] Urine leukocyte esterase det ection by automated test stripOrdered By: Carlos Guzmán on 11-24-2023 Leukocyte esterase Auto test strip Ql (U) Negative Negative [facility] Urobilinogen Auto test strip (U) [Mass/Vol]Ordered By: Carlos Guzmán on 11-24-2023 Urobilinogen (U) [Mass/Vol] Normal mg/dL Normal [facility] WBC Auto (Bld) [#/Vol]Ordere d By: Carlos Guzmán on 11-24-2023 WBC (Bld) [#/Vol] 8.9 10*3/uL 4.1-10.5 [facility] pH Auto test strip (U)Ordere d By: Carlos Guzmán on 11-24-2023 pH (U) 5.0 [pH] 5.0-9.0 [facility] Basophils Auto (Bld) [#/Vol] on 10-28-2023 Basophils (Bld) [#/Vol] 0.1 10 3/uL 0.0-0.1 [facility] Basophils/100 WBC Auto (Bld) on 10-28-2023 Basophils/100 WBC (Bld) 0.7 % 0.2-2.0 F [facility] Centriole Ab [Titer] in Seru m by Immunofluorescenceon 10-28-2023 Centriole Ab IF (S) [Titer] TNP . [facility] Centromere Ab [Titer] in Ser um by Immunofluorescenceon 10-28-2023 Centromere Ab IF (S) [Titer] TNP . [facility] Eosinophils/100 WBC Auto (Bl d)on 10-28-2023 Eosinophils/100 WBC (Bld) 2.2 % 0.9-7.0 [facility] Erythrocyte distribution wid th Auto (RBC) [Ratio]on 10-28-2023 Erythrocyte distribution width (RBC) [Ratio] 14.6 % 11.0-15.0 [facility] Estimated glomerular filtrat ion rate (GFR) non- Americanon 10-28-2023 GFR/1.73 sq M.predicted among non-blacks MDRD (S/P/Bld) [Vol rate/Area] mL/min/{1.73_m2} >=60 [facility] Globulin Calc (S) [Mass/Vol] on 10-28-2023 Globulin (S) [Mass/Vol] 5.8 g/dL F [facility] Hematocrit Auto (Bld) [Volum e fraction]on 10-28-2023 Hematocrit (Bld) [Volume fraction] 40.0 % 42.0-54.0 [facility] Hemoglobin [Mass/volume] in Bloodon 10-28-2023 Hemoglobin (Bld) [Mass/Vol] 13.1 g/dL 14.0-18. 0 [facility] Laboratory - Chemistry and C hemistry - challengeon 10-28-2023 Albumin [Mass/Vol] 2.8 g/dL 3.4-5.0 [facility] ALP [Catalytic activity/Vol] 94 U/L 46-116 [facility] ALT [Catalytic activity/Vol] 17 U/L 16-63 [facility] AST [Catalytic activity/Vol] 23 U/L 15-37 [facility] Bilirubin [Mass/Vol] 0.6 mg/dL 0.2-1.0 [facility] Calcium [Mass/Vol] 8.8 mg/dL 8.5-10.1 [facility] Chloride [Moles/Vol] 100 mmol/L 98-107 [facility] CO2 [Moles/Vol] 28.0 mmol/L 21.0-32.0 [facility] Creatinine [Mass/Vol] 0.80 mg/dL 0.70-1.30 [facility] GFR/1.73 sq M.predicted MDRD (S/P/Bld) [Vol rate/Area] mL/min/{1.73_m2} >=60 [facility] Glucose [Mass/Vol] 135 mg/dL 74-106 [facility] Potassium [Moles/Vol] 4.5 mmol/L 3.5-5.1 [facility] Protein [Mass/Vol] 8.6 g/dL 6.4-8.2 [facility] Sodium [Moles/Vol] 138 mmol/L 136-145 [facility] Urate [Mass/Vol] 4.2 mg/dL 3.5-7.2 [facility] Urea nitrogen [Mass/Vol] 14.0 mg/dL 7.0-18.0 [facility] Urea nitrogen/Creatinine [Mass ratio] 17.5 mg/mg [facility] Laboratory - Hematology and Cell countson 10-28-2023 ESR (Bld) [Velocity] 62 mm/h <=20 [facility] Immature granulocytes/100 WBC (Bld) 0.1 % 0.0-0.5 [facility] Leukocytes [#/volume] correc yuniel for nucleated erythrocytes in Blood by Automated counon 10-28-2023 WBC corrected for nucl RBC Auto (Bld) [#/Vol] 7.2 10 3/uL 4.0-11.0 [facility] Lymphocytes Auto (Bld) [#/Vo l]on 10-28-2023 Lymphocytes (Bld) [#/Vol] 1.9 10 3/uL 1.2-3.8 [facility] Lymphocytes/100 WBC Auto (Bl d)on 10-28-2023 Lymphocytes/100 WBC (Bld) 26.6 % 20.5-60.0 [facility] MCH Auto (RBC) [Entitic mass ]on 10-28-2023 MCH (RBC) [Entitic mass] 30.2 pg 25.9-34.0 [facility] MCHC Auto (RBC) [Mass/Vol]on 10-28-2023 MCHC (RBC) [Mass/Vol] 32.8 g/dL 29.9-35.2 Fir [facility] MCV Auto (RBC) [Entitic vol] on 10-28-2023 MCV (RBC) [Entitic vol] 92.2 fL 80.0-94.0 F [facility] Midbody Ab [Titer] in Serum by Immunofluorescenceon 10-28-2023 Midbody Ab IF (S) [Titer] TNP . [facility] Mitotic spindle apparatus Ab [Titer] in Serum or Plasma by Immunofluorescenceon 10-28-2023 Mitotic spindle apparatus Ab IF [Titer] TNP . [facility] Monocytes Auto (Bld) [#/Vol] on 10-28-2023 Monocytes (Bld) [#/Vol] 0.8 10 3/uL 0.3-0.8 [facility] Monocytes/100 WBC Auto (Bld) on 10-28-2023 Monocytes/100 WBC (Bld) 10.4 % 1.7-12.0 [facility] Neutrophils Auto (Bld) [#/Vo l]on 10-28-2023 Neutrophils (Bld) [#/Vol] 4.3 10 3/uL 1.4-6.5 [facility] Neutrophils/100 WBC Auto (Bl d)on 10-28-2023 Neutrophils/100 WBC (Bld) 60.0 % 43.0-75.0 [facility] No Panel Informationon 10-28 Anti-Nuclear Antibody Comment 2 Comment . [facility] Comment on above: Pattern Potential Di sease Association Homogeneous Systemic Lupus Erythematosus, Drug Induced Systemic Lupus Erythematosus, Chronic Autoimmune hepatitis, Juvenile Idiopathic Arthritis Speckled Sjogren Syndrome, Systemic Lupus Erythematosus, Subacute Cutaneous Lupus, Lupus, Congenital Heart Block, Mixed Connective Tissue Disease, Scleroderma-diffuse, Scleroderma-Autoimmune Myositis Overlap Syndrome, Systemic Lupus Iiebvtpdrhfks-Wotdqgudvpo-Rbrtodkooj Myositis Overlap Syndrome, Systemic Autoimmune Rheumatic Disease, [...] Antiphospholipid Syndrome Performed at: [facility] [id number] [place], [place] [id number] Director: Krunal Nichols PhD, Phone: [phone] C-Reactive Protein, Quantitative <0.50 mg/dL <=0.50 [facility] Eosinophils # (Auto) 0.2 10 3/uL 0.0-0.7 [facility] Immature Granulocyte # (Auto) 0.01 10 3/uL 0.00-0.03 [facility] Nuclear dots nuclear Ab prashant bhupendra [Titer] in Serum by Immunofluorescenceon 10-28-2023 Nuclear dots nuclear Ab pattern IF (S) [Titer] TNP . [facility] Nuclear membrane pores nucle ar Ab pattern [Titer] in Serum by Immunofluorescenceon 10-28-2023 Nuclear membrane pores nuclear Ab pattern IF (S) [Titer] TNP . [facility] PCNA extractable nuclear Ab [Titer] in Serum by Immunofluorescenceon 10-28-2023 PCNA extractable nuclear Ab IF (S) [Titer] TN . [facility] Platelet mean volume Auto (B ld) [Entitic vol]on 10-28-2023 Platelet mean volume (Bld) [Entitic vol] 8.9 fL 9.5-13.5 [facility] Platelets Auto (Bld) [#/Vol] on 10-28-2023 Platelets (Bld) [#/Vol] 296 10 3/uL 150-450 [facility] RBC Auto (Bld) [#/Vol]on RBC (Bld) [#/Vol] 4.34 10 6/uL 4.70-6.10 [facility] Serum homogeneous pattern an tinuclear antibody (VANESSA) titeron 10-28-2023 Homogenous nuclear Ab pattern (S) [Titer] 1:640 . [facility] Comment on above: ICAP nomenclature: A C-1 Serum nuclear antibody titer on 10-28-2023 Nuclear Ab (S) [Titer] Positive . [facility] Comment on above: Negative <1:80 Borde rline 1:80 Positive >1:80 Serum nucleolar pattern anti nuclear antibody (VANESSA) titeron 10-28-2023 Nucleolar nuclear Ab pattern (S) [Titer] TNP . [facility] Serum or plasma albumin/glob ulin mass ratioon 10-28-2023 Albumin/Globulin [Mass ratio] 0.5 {ratio} [facility] Serum or plasma anion gap de terminationon 10-28-2023 Anion gap [Moles/Vol] 14.5 mmol/L [facility] Serum or plasma cyclic adeno sine monophosphate measurement (moles/volume)on 10-28-2023 Adenosine monophosphate.cyclic [Moles/Vol] >250 units 0-19 [facility] Comment on above: Negative <20 Weak po sitive 20 - 39 Moderate positive 40 - 59 Strong positive >59Performed at: [facility] [place], [place] [id number] Director: Krunal Nichols PhD, Phone: [phone] Serum or plasma rheumatoid f actor measurement (units/volume)on 10-28-2023 Rheumatoid factor Qn 183.9 [IU]/mL <14.0 F [facility] Comment on above: Results confirmed on dilution.Performed at: [facility] [address] [place], [place] [id number] Director: Krunal Nichols PhD, Phone: [phone] Serum speckled pattern antin uclear antibody (VANESSA) titeron 10-28-2023 Speckled nuclear Ab pattern (S) [Titer] TNP . [facility] Glucose Glucometer (BldC) [M ass/Vol]Ordered By: Erickson Nascimento on 07-04-2023 Glucose [Mass/Vol] 134 mg/dL [facility] Comment on above: Random Glucose Refer ence Range is dependent on time and content of last meal. Glucose of more than 200 mg/dL in a nonstressed, ambulatory subject supports the diagnosis of Diabetes Mellitus. Glucose Poct Glucometerson 1 09-03-2022 Glucose [Mass/Vol] 134 mg/dL Normal [facility] Comment on above: Result Comment: [place] Glucose Reference Range is dependent on time and content of last meal. Glucose of more than 200 mg/dL in a nonstressed, ambulatory subject supports the diagnosis of Diabetes Mellitus. PERFORMED BY: [facility] [address] [place] [address] PATHOLOGIST DORR OPERATOR ADELFO RAMIREZ M.D. Performed By: #### G LOYD ####Point of Care testing, [facility] 07-04-2023 L - -------- Specimen: [id number] Received: 07/04/23 Status: RAQUEL De Oliveira Num: [id number] Spec Type: Surgical Subm Dr: Erickson Nascimento DO Tissues: A Soft Tissue/Surgical Margin-Other than Tumor,Mass,Lip or Natasha (LT ELBOW MASS) Procedures: Kristin KAUR/Zo L4 -------- Age/ Patient Sex Location Account Attending Physician -------- Mariano Gutierrez 73/M [place] [id number] Erickson Nascimento DO -------- SPEC NUM: [id number] RECD: 07/04/23 STATUS: RAQUEL DE OLIVEIRA NUM: [id number] DENISA: 07/04/[address]: Erickson Nascimento DO ENTERED: 07/04/[address] [facility] [address]: SPEC TYPE: Surgical DEPT: S [...] tissue with a rubbery, dubois-pink cut surface. Feeder Catcher sections are submitted in one cassette labeled A1. -------- Specimen: [id number] Received: 07/04/23 Status: CATRACHITOBri De Oliveira Num: [id number] Spec Type: Surgical Subm Dr: Erickson Nascimento DO Tissues: A Soft Tissue/Surgical Margin-Other than Tumor,Mass,Lip or Natasha (LT ELBOW MASS) Procedures: Kristin KAUR/Micro L4 -------- Patient: Mariano Gutierrez [id number] (Continued) -------- Specimen: [id number] Received: 07/04/23 (Continued) Signed (signature on file) Brandy Keane MD 07/08/23 1545 -------- Specimen: [id number] Received: 07/04/23 Status: RAQUEL Alvino Num: [id number] Spec Type: Surgical Subm Dr: Erickson Nascimento DO Tissues: A Soft Tissue/Surgical Margin-Other than Tumor,Mass,Lip or Natasha (LT ELBOW MASS) Procedures: Kristin KAUR/Zo L4 -------- Patient: Mariano Gutierrez [id number] (Continued) -------- Specimen: [id number] Received: 07/04/23 (Continued) Microscopic Description One H E slide reviewed. The microscopic examination confirms the diagnosis. CPT Codes 56711 -------- -------- Specimen: [id number] Received: 07/04/23 Status: RAQUEL Alvino Num: [id number] Spec Type: Surgical Subm Dr: Erickson Nascimento, Tissues: A Soft Tissue/Surgical Margin-Other than Tumor,Mass,Lip or Natasha (LT ELBOW MASS) Procedures: Kristin KAUR/Zo L4 -------- Patient: Mariano Gutierrez [id number] (Continued) -------- Signed (signature on file) Brandy Keane MD 07/08/23 1545 Normal [facility] XR elbow LT 2Von 02-26-2023 XR elbow LT 2V [facility] [address] XRay Report Signed Patient: Mariano Gutierrez MR#: [id number] : 1950 Acct:[id number] Age/Sex: 72 / M ADM Date: 02/26/23 Loc: [facility] [place] Room: Type: [facility] Attending Dr: Erickson Nasciemnto DO Copies to: Erickson Nascimento DO Ordering [...] Blount Jr., ElizabethOJeferson02/26/2023 2:56 PM Dictation Location: [place] [address] Transcribed By: [facility] 02/26/23 1456 Dictated By: Abdirahman Blount Jr, DO 02/26/23 1455 Signed By: 02/26/23 1456 Normal [facility] GLYCOHEMOGLOBIN A1Con 2022 ADA RECOMMENDATION SEE BELOW [facility] Comment on above: Result Comment: ADA RECOMMENDED LIMIT 4.0 - 6.0 ADA THERAPEUTIC TARGET < 7.0 ACTION SUGGESTED > 7.0 Performed By: #### D ATA1C #### [facility] [address] [place] [address] Dr. Ginger Keane Glucose [Mass/Vol] 123 mg/dL Normal [facility] Comment on above: Performed By: #### D ATA1C #### [facility] [address] [place] [address] [address] Ginger Keane HbA1c (Bld) [Mass fraction] 5.9 % Normal 4.5-6.2 [facility] Comment on above: Performed By: #### D ATA1C #### [facility] [address] [place] [address] Dr. Ginger Keane GLYCOHEMOGLOBIN A1Con 2021 ADA RECOMMENDATION SEE BELOW Normal [facility] Comment on above: Result Comment: ADA RECOMMENDED LIMIT 4.0 - 6.0 ADA THERAPEUTIC TARGET < 7.0 ACTION SUGGESTED > 7.0 Performed By: #### D ATA1C #### [facility] [address] [place] [address] Dr. Ginger Keane Glucose [Mass/Vol] 160 mg/dL Normal [facility] Comment on above: Performed By: #### D ATA1C #### [facility] [address] [place] [address] Dr. Ginger Keane HbA1c (Bld) [Mass fraction] 7.2 % Critically high 4.5 -6.2 [facility] Comment on above: Performed By: #### D ATA1C #### [facility] [address] [place] [address] Dr. Ginger Keane MICROALBUMIN URINEon 022 Albumin, Urine 123.8 ug/mL Normal Not Estab. [facility] Comment on above: Performed By: #### M ALBLC #### [facility] [address] [place] [address] Dr. Ginger Keane CBC AUTO DIFFon 05-15-2022 BASO # 0.1 103/ul Normal 0.0-0.1 [facility] Comment on above: Performed By: #### C BC #### [facility] [address] [place] [address] Dr. Ginger Keane Basophils/100 WBC (Bld) 0.6 % Normal 0.2-2.0 [facility] Comment on above: Performed By: #### C BC #### [facility] [address] [place] [address] Dr. Ginger Keane EO # 0.2 103/ul Normal 0.0-0.7 [facility] Comment on above: Performed By: #### C BC #### [facility] [address] [place] [address] Dr. Ginger Keane Eosinophils/100 WBC (Bld) 2.9 % Normal 0.9-7.0 [facility] Comment on above: Performed By: #### C BC #### [facility] [address] [place] [address] Dr. Ginger Keane Erythrocyte distribution width (RBC) [Ratio] 12.9 % Normal 11.0-15.0 [facility] Comment on above: Performed By: #### C BC #### [facility] [address] [place] [address] Dr. Ginger Keane Hematocrit (Bld) [Volume fraction] 44.3 % Normal 42.0-54.0 [facility] Comment on above: Performed By: #### C BC #### [facility] [address] [place] [address] Dr. Ginger Keane Hemoglobin (Bld) [Mass/Vol] 15.6 g/dL Normal 14.0-18. 0 [facility] Comment on above: Performed By: #### C BC #### [facility] [address] [place] [address] Dr. Ginger Keane IG # 0.01 10e3/ul Normal 0.00-0.03 [facility] Comment on above: Performed By: #### C BC #### [facility] [address] [place] [address] Dr. Ginger Keane IG % 0.1 % Normal 0.0-0.5 [facility] Comment on above: Performed By: #### C BC #### [facility] [address] [place] [address] Dr. Ginger Keane LYMPH # 2.9 103/ul Normal 1.2-3.8 [facility] Comment on above: Performed By: #### C BC #### [facility] [address] [place] [address] Dr. Ginger Keane Lymphocytes/100 WBC (Bld) 34.1 % Normal 20.5-60.0 [facility] Comment on above: Performed By: #### C BC #### [facility] [address] [place] [address] Dr. Ginger Keane MANUAL DIFF REQ NO Normal [facility] Comment on above: Performed By: #### C BC #### [facility] [address] [place] [address] Dr. Ginger Keane MCH (RBC) [Entitic mass] 32.8 pg Normal 25.9-34.0 [facility] Comment on above: Performed By: #### C BC #### [facility] [address] [place] [address] Dr. Ginger Keane MCHC (RBC) [Mass/Vol] 35.2 g/dL Normal 29.9-35.2 [facility] Comment on above: Performed By: #### C BC #### [facility] [address] [place] [address] Dr. Ginger Keane MCV (RBC) [Entitic vol] 93.3 fL Normal 80.0-94.0 [facility] Comment on above: Performed By: #### C BC #### [facility] [address] [place] [address] Dr. Ginger Keane MONO # 0.6 103/ul Normal 0.3-0.8 [facility] Comment on above: Performed By: #### C BC #### [facility] [address] [place] [address] Dr. Ginger Keane Monocytes/100 WBC (Bld) 7.5 % Normal 1.7-12.0 [facility] Comment on above: Performed By: #### C BC #### [facility] [address] [place] [address] Dr. Ginger Keane NEUT # 4.6 103/ul Normal 1.4-6.5 [facility] Comment on above: Performed By: #### C BC #### [facility] [address] [place] [address] Dr. Ginger Keane Neutrophils/100 WBC (Bld) 54.8 % Normal 43.0-75.0 [facility] Comment on above: Performed By: #### C BC #### [facility] [address] [address] [address] Ginger Keane Platelet mean volume (Bld) [Entitic vol] 9.7 fL Normal 9.5-13.5 [facility] Comment on above: Performed By: #### C BC #### [facility] [address] [address] [address] Ginger Keane PLT 260 103/ul Normal 150-450 [facility] Comment on above: Performed By: #### C BC #### [facility] [address] [address] [address] Ginger Keane RBC 4.75 106/ul Normal 4.70-6.10 [facility] Comment on above: Performed By: #### C BC #### [facility] [address] [address] [address] Ginger Keane WBC 8.4 103/ul Normal 4.0-11.0 [facility] Comment on above: Performed By: #### C BC #### [facility] [address] [address] [address] Ginger Keane LIPID PROFILEon 05-15-2022 CHOL-HDL RATIO NORM SEE BELOW Normal [facility] Comment on above: Result Comment: 3.3 - 4.4 LOW RISK 4.4 - 7.1 AVERAGE RISK 7.1 - 11.0 MODERATE RISK >11.0 HIGH RISK Performed By: #### B MP, LIPID, ALT #### [facility] [address] [address] [address] Ginger Keane Cholesterol [Mass/Vol] 119 mg/dL Normal <=200 Th [facility] Comment on above: Performed By: #### B MP, LIPID, ALT #### [facility] [address] [address] [address] Ginger Keane Cholesterol in HDL [Mass/Vol] 37 mg/dL Critically low 40-60 [facility] Comment on above: Performed By: #### B MP, LIPID, ALT #### [facility] [address] [place] [address] Dr. Ginger Keane Cholesterol in LDL [Mass/Vol] 35.2 mg/dL Normal [facility] Comment on above: Performed By: #### B MP, LIPID, ALT #### [facility] [address] [address] [address] Ginger Keane Cholesterol.total/Cholester ol in HDL [Mass ratio] 3.2 {ratio} Normal [facility] Comment on above: Performed By: #### B MP, LIPID, ALT #### [facility] [address] [address] [address] Ginger Keane HDL NORMAL > or = 60 mg/dl - LO W CARDIOVASCULAR RISK <40 mg/dl - HIGH CARDIOVASCULAR RISK Normal [facility] Comment on above: Performed By: #### B MP, LIPID, ALT #### [facility] [address] [place] [address] Dr. Ginger Keane LDL CALC NORMAL SEE BELOW Normal [facility] Comment on above: Result Comment: <100 mg/dl OPTIMAL 100 - 129 mg/dl NEAR OR ABOVE OPTIMAL 130 - 159 mg/dl BORDERLINE HIGH 160 - 189 mg/dl HIGH >190 mg/dl VERY HIGH Performed By: #### B MP, LIPID, ALT #### [facility] [address] [address] [address] Ginger Keane Triglyceride [Mass/Vol] 234 mg/dL Critically high <=150 [facility] Comment on above: Performed By: #### B MP, LIPID, ALT #### [facility] [address] [address] [address] Ginger Keane VLDL CALC 46.8 mg/dL Normal [facility] Comment on above: Performed By: #### B MP, LIPID, ALT #### [facility] [address] [address] [address] Ginger Keane PROF CHEM 8 (BAS METB)on Anion gap [Moles/Vol] 13.3 mmol/L Normal [facility] Comment on above: Performed By: #### B MP, LIPID, ALT #### [facility] [address] [place] [address] Dr. Ginger Keane Calcium [Mass/Vol] 8.7 mg/dL Normal 8.5-10.1 [facility] Comment on above: Performed By: #### B MP, LIPID, ALT #### [facility] [address] [address] [address] Ginger Keane Chloride [Moles/Vol] 102 mmol/L Normal 98-107 [facility] Comment on above: Performed By: #### B MP, LIPID, ALT #### [facility] [address] [address] [address] Ginger Keane CO2 [Moles/Vol] 26.8 mmol/L Normal 21.0-32.0 [facility] Comment on above: Performed By: #### B MP, LIPID, ALT #### [facility] [address] [address] [address] Ginger Keane Creatinine [Mass/Vol] 0.92 mg/dL Normal 0.70-1.30 [facility] Comment on above: Performed By: #### B MP, LIPID, ALT #### [facility] [address] [address] [address] Ginger Keane EGFR-AF PAPUA NEW GUINEAN >60 Normal >=60 [facility] Comment on above: Performed By: #### B MP, LIPID, ALT #### [facility] [address] [address] [address] Ginger Keane EGFR-NON AF PAPUA [place] GUINEAN >60 Normal >=60 [facility] Comment on above: Performed By: #### B MP, LIPID, ALT #### [facility] [address] [address] [address] Ginger Keane Glucose [Mass/Vol] 161 mg/dL Critically high 74-[address] [facility] Comment on above: Performed By: #### B MP, LIPID, ALT #### [facility] [address] [address] [address] Ginger Keane Potassium [Moles/Vol] 4.1 mmol/L Normal 3.5-5.1 [facility] Comment on above: Performed By: #### B MP, LIPID, ALT #### [facility] [address] [address] [address] Ginger Keane Sodium [Moles/Vol] 138 mmol/L Normal 136-145 [facility] Comment on above: Performed By: #### B MP, LIPID, ALT #### [facility] [address] [address] [address] Ginger Keane Urea nitrogen [Mass/Vol] 13.0 mg/dL Normal 7.0-18.0 [facility] Comment on above: Performed By: #### B MP, LIPID, ALT #### [facility] [address] [address] [address] Ginger Keane Urea nitrogen/Creatinine [Mass ratio] 14.1 mg/mg Normal [facility] Comment on above: Performed By: #### B MP, LIPID, ALT #### [facility] [address] [address] [address] Ginger Keane SGPTon 05-15-2022 ALT [Catalytic activity/Vol] 26 U/L Normal 16-63 [facility] Comment on above: Performed By: #### B MP, LIPID, ALT #### [facility] [address] [place] [address] Dr. Ginger Keane GLYCOHEMOGLOBIN A1Con 2021 ADA RECOMMENDATION SEE BELOW Normal [facility] Comment on above: Result Comment: ADA RECOMMENDED LIMIT 4.0 - 6.0 ADA THERAPEUTIC TARGET < 7.0 ACTION SUGGESTED > 7.0 Performed By: #### D ATA1C #### [facility] [address] [place] [address] Dr. Ginger Keane Glucose [Mass/Vol] 146 mg/dL Normal [facility] Comment on above: Performed By: #### D ATA1C #### [facility] [address] [place] [address] Dr. Ginger Keane HbA1c (Bld) [Mass fraction] 6.7 % Critically high 4.5 -6.2 [facility] Comment on above: Performed By: #### D ATA1C #### [facility] [address] [place] [address] Dr. Ginger Keane Vital Signs Date Time Vital Sign Value Performing Clinician Facility 09-24-2024 11:36-0500 Body height 177.8 cm [facility] 09-24-2024 11:36-0500 Body mass index (BMI) [Ratio] 29.9 kg/m2 [facility] 09-24-2024 11:36-0500 Body weight 94.85 kg [facility] 09-24-2024 11:36-0500 Diastolic blood pressure 78 mm[Hg] [facility] 09-24-2024 11:36-0500 Heart rate 88 /min [facility] 09-24-2024 11:36-0500 Respiratory rate 12 /min [facility] 09-24-2024 11:36-0500 SaO2% (BldA) [Mass fraction] 95 % [facility] 09-24-2024 11:36-0500 Systolic blood pressure 132 mm[Hg] [facility] 05-26-2024 13:28-0400 Body height 180.34 cm [facility] 05-26-2024 13:28-0400 Body mass index (BMI) [Ratio] 28.2 kg/m2 [facility] 05-26-2024 13:28-0400 Body weight 91.73 kg [facility] 05-26-2024 13:28-0400 Diastolic blood pressure 64 mm[Hg] [facility] 05-26-2024 13:28-0400 Heart rate 77 /min [facility] 05-26-2024 13:28-0400 Systolic blood pressure 122 mm[Hg] [facility] 05-17-2024 13:51-0400 Body temperature 97.81 [degF] Angeles Payan [employer] Work Phone: [facility] 05-17-2024 13:51-0400 Body weight 89.81 kg Angeles Payan [employer] Work Phone: [facility] 05-17-2024 13:51-0400 Diastolic blood pressure 80 mm[Hg] Angeles Payan [employer] Work Phone: [facility] 05-17-2024 13:51-0400 Heart rate 111 /min Angeles Payan [employer] Work Phone: [facility] Comment on above: repeat puls 96bpm apical 05-17-2024 13:51-0400 Respiratory rate 20 /min Angeles Payan [employer] Work Phone: [facility] 05-17-2024 13:51-0400 SaO2% (BldA) [Mass fraction] 94 % Angeles Payan [employer] Work Phone: [facility] 05-17-2024 13:51-0400 Systolic blood pressure 122 mm[Hg] Angeles Payan [employer] Work Phone: [facility] 12-30-2023 11:02-0400 Body height 180.34 cm DO Vernon Ball Work Phone: [facility] 12-30-2023 11:02-0400 Body mass index (BMI) [Ratio] 26.4 kg/m2 DO Vernon Ball Work Phone: [facility] 12-30-2023 11:02-0400 Body weight 85.89 kg DO Vernon Ball Work Phone: [facility] 12-30-2023 11:02-0400 Diastolic blood pressure 72 mm[Hg] DO Vernon Ball Work Phone: [facility] 12-30-2023 11:02-0400 Heart rate 93 /min DO Vernon Ball Work Phone: [facility] 12-30-2023 11:02-0400 Respiratory rate 16 /min DO Vernon Ball Work Phone: [facility] 12-30-2023 11:02-0400 Systolic blood pressure 123 mm[Hg] DO Vernon Ball Work Phone: [facility] 10-20-2023 15:23-0500 Body height 180.34 cm [facility] 10-20-2023 15:23-0500 Body mass index (BMI) [Ratio] 25.5 kg/m2 [facility] 10-20-2023 15:23-0500 Body weight 83.09 kg [facility] 10-20-2023 15:23-0500 Diastolic blood pressure 65 mm[Hg] [facility] 10-20-2023 15:23-0500 Heart rate 99 /min [facility] 10-20-2023 15:23-0500 Respiratory rate 20 /min [facility] 10-20-2023 15:23-0500 Systolic blood pressure 126 mm[Hg] [facility] 10-01-2023 10:00-0500 Body height 180.34 cm Vernon Ball Other [facility] 10-01-2023 10:00-0500 Diastolic blood pressure 70 mm[Hg] Vernon Ball Other [facility] 10-01-2023 10:00-0500 SaO2% (BldA) [Mass fraction] 90 % Vernon Ball Other [facility] [employer] Other 10-01-2023 10:00-0500 Systolic blood pressure 124 mm[Hg] Vernon Ball Other [facility] 08-29-2023 10:00-0500 Body height 180.34 cm Vernon Ball Other [facility] 08-29-2023 10:00-0500 Body mass index (BMI) [Ratio] 25.63 kg/m2 Vernon Ball Other [facility] [employer] Other 08-29-2023 10:00-0500 Body weight 83.37 kg Vernon Ball Other [facility] 08-29-2023 10:00-0500 Diastolic blood pressure 63 mm[Hg] Vernon Ball Other [facility] 08-29-2023 10:00-0500 Respiratory rate 20 /min Vernon Ball Other [facility] [employer] Other 08-29-2023 10:00-0500 SaO2% (BldA) [Mass fraction] 84 % Vernon Ball Other [facility] [employer] Other 08-29-2023 10:00-0500 Systolic blood pressure 109 mm[Hg] Vernon Ball Other [facility] 08-12-2023 11:00-0500 Body height 180.34 cm Vernon Ball Other [facility] 08-12-2023 11:00-0500 Body mass index (BMI) [Ratio] 25.55 kg/m2 Vernon Ball Other [facility] [employer] Other 08-12-2023 11:00-0500 Body weight 83.1 kg Vernon Ball Other [facility] [employer] Other 08-12-2023 11:00-0500 Body weight 83.09 kg [facility] 08-12-2023 11:00-0500 Diastolic blood pressure 88 mm[Hg] Vernon Ball Other [facility] 08-12-2023 11:00-0500 Respiratory rate 20 /min Vernon Ball Other [facility] [employer] Other 08-12-2023 11:00-0500 SaO2% (BldA) [Mass fraction] 94 % Vernon Ball Other [place] [employer] Other 08-12-2023 11:00-0500 Systolic blood pressure 120 mm[Hg] Vernon Ball Other [facility] 07-10-2023 11:45-0500 Body height 180.34 cm Vernon Ball Other [place] [employer] Other 07-10-2023 11:45-0500 Body mass index (BMI) [Ratio] 26.22 kg/m2 Vernon Ball Other [employer] Other 07-10-2023 11:45-0500 Body weight 85.28 kg Vernon Ball Other [employer] Other 07-10-2023 11:45-0500 Diastolic blood pressure 75 mm[Hg] Vernon Ball Other [employer] Other 07-10-2023 11:45-0500 Respiratory rate 16 /min Evrnon Ball Other [employer] Other 07-10-2023 11:45-0500 Systolic blood pressure 129 mm[Hg] Vernon Ball Other [employer] Other 07-04-2023 08:03-0400 Diastolic blood pressure 93 mm[Hg] DO Vernon Ball Work Phone: [facility] 07-04-2023 08:03-0400 Heart rate 89 /min DO Vernon Ball Work Phone: [facility] 07-04-2023 08:03-0400 Respiratory rate 16 /min DO Vernon Ball Work Phone: [facility] 07-04-2023 08:03-0400 SaO2% (BldA) [Mass fraction] 93 % DO Vernon Ball Work Phone: [facility] 07-04-2023 08:03-0400 Systolic blood pressure 140 mm[Hg] DO Vernon Ball Work Phone: [facility] 07-04-2023 06:47-0400 Body height 180.34 cm DO Vernon Ball Work Phone: [facility] 07-04-2023 06:47-0400 Body temperature 98.2 [degF] DO Vernon Ball Work Phone: [facility] 07-04-2023 06:47-0400 Body weight 86.18 kg DO Vernon Ball Work Phone: [facility] 07-02-2023 13:45-0400 Body height 180.34 cm Erickson Nascimento Other [employer] Other 07-02-2023 13:45-0400 Body mass index (BMI) [Ratio] 26.5 kg/m2 Erickson Nascimento Other [employer] Other 07-02-2023 13:45-0400 Body weight 86.18 kg Erickson Nascimento Other [employer] Other 05-20-2023 10:00-0400 Body height 180.34 cm Vernon Ball Other [employer] Other 05-20-2023 10:00-0400 Body mass index (BMI) [Ratio] 26.64 kg/m2 Vernon Ball Other [employer] Other 05-20-2023 10:00-0400 Body weight 86.64 kg Vernon Ball Other [employer] Other 05-20-2023 10:00-0400 Diastolic blood pressure 74 mm[Hg] Vernon Ball Other [employer] Other 05-20-2023 10:00-0400 Respiratory rate 12 /min Vernon Ball Other [employer] Other 05-20-2023 10:00-0400 Systolic blood pressure 117 mm[Hg] Vernon Ball Other [employer] Other 02-17-2023 10:30-0400 Body height 180.34 cm Vernon Ball Other [employer] Other 02-17-2023 10:30-0400 Body mass index (BMI) [Ratio] 27.58 kg/m2 Vernon Ball Other [employer] Other 02-17-2023 10:30-0400 Body weight 89.72 kg Vernon Ball Other [employer] Other 02-17-2023 10:30-0400 Diastolic blood pressure 78 mm[Hg] Vernon Ball Other [employer] Other 02-17-2023 10:30-0400 Respiratory rate 12 /min Vernon Ball Other [employer] Other 02-17-2023 10:30-0400 Systolic blood pressure 128 mm[Hg] Vernon Ball Other [employer] Other 11-18-2022 11:30-0400 Body height 180.34 cm Vernon Ball Other [employer] Other 11-18-2022 11:30-0400 Body mass index (BMI) [Ratio] 27.42 kg/m2 Vernon Ball Other [employer] Other 11-18-2022 11:30-0400 Body weight 89.18 kg Vernon Ball Other [employer] Other 11-18-2022 11:30-0400 Diastolic blood pressure 70 mm[Hg] Vernon Ball Other [employer] Other 11-18-2022 11:30-0400 Respiratory rate 12 /min Vernon Ball Other [employer] Other 11-18-2022 11:30-0400 Systolic blood pressure 122 mm[Hg] Vernon Ball Other [employer] Other Encounters Encounter Date Encounter Type Care Provider Facility Start: 09-24-2024 End: 09-24-2024 ambulatory [facility] Work Phone: Start: 09-24-2024 End: 09-24-2024 Patient encounter procedure [facility] Work Phone: Start: 08-17-2024 Non-patient / Non-visit [facility] [employer] Work Phone: Start: 08-03-2024 Non-patient / Non-visit [facility] Work Phone: Start: 07-15-2024 Non-patient / Non-visit [facility] Work Phone: Start: 07-08-2024 Non-patient / Non-visit [facility] Work Phone: Start: 07-01-2024 Non-patient / Non-visit [facility] Work Phone: Start: 05-26-2024 End: 05-26-2024 ambulatory [facility] Work Phone: Start: 05-26-2024 End: 05-26-2024 Patient encounter procedure [place] Work Phone: Start: 05-24-2024 Patient encounter procedure [facility] Start: 05-17-2024 End: 05-17-2024 ambulatory ANGELES PAYAN Not Available Start: 05-17-2024 End: 05-17-2024 Office outpatient new 45 minutes Angeles Payan [employer] Work Phone: [facility] Comment on above: Closed fracture of m ultiple ribs of left side, initial encounter (Primary Dx); Rib pain on left side Start: 03-11-2024 Non-patient / Non-visit [facility] Work Phone: Start: 12-31-2023 End: 12-31-2023 ambulatory Carlos Guzmán Facility:[facility] Start: 12-30-2023 End: 12-30-2023 ambulatory DO Vernon Greene Work Phone: [facility] Work Phone: Start: 12-30-2023 End: 12-30-2023 Patient encounter procedure DO Vernon Greene Work Phone: [place] Work Phone: Start: 12-29-2023 Non-patient / Non-visit DO Skinny benz Ball Work Phone: [facility] Work Phone: Start: 12-22-2023 Non-patient / Non-visit DO Skinny benz Ball Work Phone: [facility] Work Phone: Start: 12-09-2023 End: 12-09-2023 ambulatory [facility] Facility:[facility] Start: 12-09-2023 End: 12-09-2023 ambulatory DO Vernon Ball Work Phone: [facility] Work Phone: Start: 12-09-2023 End: 12-09-2023 Patient encounter procedure DO Vernon Ball Work Phone: [facility] [address] Work Phone: Start: 11-26-2023 End: 11-26-2023 ambulatory Vernon Greene Other [facility] [employer] Other Start: 11-26-2023 Telephone encounter Vernon Greene [facility] Start: 11-24-2023 End: 11-24-2023 ambulatory [facility] Facility:[facility] Start: 11-24-2023 End: 11-24-2023 ambulatory DO Vernon Ball Work Phone: [facility] Work Phone: Start: 11-24-2023 End: 11-24-2023 Patient encounter procedure DO Vernon Ball Work Phone: [facility] [address] Work Phone: Start: 10-28-2023 Non-patient / Non-visit DO Skinny benz Ball Work Phone: [facility] Work Phone: Start: 10-20-2023 End: 10-20-2023 ambulatory [facility] Work Phone: Start: 10-20-2023 End: 10-20-2023 Patient encounter procedure [facility] Work Phone: Start: 10-14-2023 Non-patient / Non-visit DO Skinny Greene Work Phone: [facility] Work Phone: Start: 10-07-2023 End: 10-07-2023 ambulatory Vernon Greene Other [employer] Other Start: 10-07-2023 Telephone encounter Vernon Greene [facility] Start: 10-06-2023 End: 10-06-2023 ambulatory Vernon Greene Other [employer] Other Start: 10-06-2023 Telephone encounter Vernon Greene [facility] Start: 10-01-2023 End: 10-01-2023 ambulatory Imad Asaad Other [employer] Other Start: 10-01-2023 Office outpatient vi sit 25 minutes Vernon Greene [facility] Start: 10-01-2023 Telephone encounter Imchet Asachet [facility] [employer] Start: 10-01-2023 End: 10-01-2023 Patient encounter procedure [facility]- Start: 09-02-2023 End: 09-02-2023 ambulatory Vernon Greene Other [employer] Other Start: 09-02-2023 Telephone encounter Vernon Greene [facility] Start: 08-29-2023 End: 08-29-2023 ambulatory Vernon Greene Other [employer] Other Start: 08-29-2023 Office outpatient vi sit 25 minutes Vernon Greene [facility] Start: 08-29-2023 End: 08-29-2023 Patient encounter procedure [facility] Work Phone: Start: 08-12-2023 End: 08-12-2023 ambulatory Vernon Greene Other [employer] Other Start: 08-12-2023 Transitional care nicole kleinyesy srvc 14 day discharge Vernon Greene [facility] Start: 08-12-2023 End: 08-12-2023 Patient encounter procedure [facility] Work Phone: Start: 08-06-2023 End: 08-06-2023 ambulatory Vernon Greene Other [employer] Other Start: 08-06-2023 Telephone encounter Vernon Greene [facility] Start: 08-01-2023 End: 08-01-2023 ambulatory Vernon Greene Other [employer] Other Start: 08-01-2023 Telephone encounter Vernon Greene [facility] Start: 07-30-2023 End: 07-30-2023 ambulatory Vernon Greene Other [employer] Other Start: 07-30-2023 Telephone encounter Vernon Greene [facility] Start: 07-16-2023 End: 07-16-2023 ambulatory Navneet Puga Other [employer] Other Start: 07-16-2023 Telephone encounter Navneet Ramires [employer] Start: 07-13-2023 End: 07-13-2023 ambulatory Vernon Greene Other [employer] Other Start: 07-13-2023 Telephone encounter Vernon Greene [facility] Start: 07-10-2023 End: 07-10-2023 ambulatory Vernon Greene Other [employer] Other Start: 07-10-2023 Office outpatient vi sit 25 minutes Vernon Greene [facility] Start: 07-10-2023 Telephone encounter Vernon Greene [facility] Start: 07-04-2023 Telephone encounter [facility] Start: 07-04-2023 End: 07-04-2023 ambulatory Erickson Nascimento Facility:[facility] Start: 07-04-2023 End: 07-04-2023 Admission to same day surgery center DO Vernon Greene Work Phone: [facility] [place] Start: 07-04-2023 End: 07-04-2023 ambulatory DO Vernon Greene Work Phone: [facility] Work Phone: Start: 07-02-2023 End: 07-02-2023 ambulatory Erickson Nascimento Other [employer] Other Start: 07-02-2023 Office outpatient vi sit 25 minutes Erickson WARE [facility] Start: 05-21-2023 End: 05-21-2023 ambulatory Vernon Greene Other [employer] Other Start: 05-21-2023 Telephone encounter [facility] Start: 05-20-2023 End: 05-20-2023 ambulatory Vernon Greene Other [employer] Other Start: 05-20-2023 Patient encounter procedure Vernon Greene [facility] Start: 02-27-2023 End: 02-27-2023 ambulatory Erickson Nasicmento Other [employer] Other Start: 02-27-2023 Telephone encounter Erickson Ramires [facility] Start: 02-26-2023 End: 02-26-2023 ambulatory Erickson Nascimento Facility:[facility] Start: 02-26-2023 End: 02-26-2023 Patient encounter procedure DO Erickson Nascimento Work Phone: [facility] Start: 02-26-2023 End: 02-26-2023 ambulatory DO Erickson Nascimento Work Phone: [facility] Work Phone: Start: 02-26-2023 Office outpatient ne w 45 minutes Erickson Nascimento [facility] Start: 02-17-2023 End: 02-17-2023 ambulatory Vernon Ball Other [employer] Other Start: 02-17-2023 Office outpatient vi sit 25 minutes Vernon Ball [facility] Start: 01-09-2023 End: 01-09-2023 ambulatory Vernon Ball Other [employer] Other Start: 01-09-2023 Telephone encounter Vernon Ball [facility] Start: 12-24-2022 End: 12-24-2022 ambulatory Vernon Ball Other [employer] Other Start: 12-24-2022 Telephone encounter Vernon Ball [facility] Start: 11-26-2022 End: 11-26-2022 ambulatory Vernon Ball Other [employer] Other Start: 11-26-2022 Telephone encounter Vernon Ball [facility] Start: 11-25-2022 End: 11-26-2022 ambulatory VERNON BALL Facility:[facility]1 Start: 11-18-2022 End: 11-18-2022 ambulatory Vernon Ball Other [facility] Other Start: 11-18-2022 Office outpatient vi sit 25 minutes Vernon Ball [facility] Start: 11-15-2022 End: 11-16-[address] NONE LISTED REQUEST Facility:[facility]1 Start: 11-07-2022 End: 11-07-2022 ambulatory Vernon Ball Other [facility] Other Start: 11-07-2022 Telephone encounter Vernon Ball [facility] Start: 08-08-2022 End: 08-09-2022 ambulatory VERNON BALL Facility:[facility] Start: 05-15-2022 End: 05-16-2022 ambulatory VERNON BALL Facility:[facility] Start: 05-09-2022 End: 05-10-[address] NONE LISTED REQUEST Facility: Procedures Date Procedure Procedure Detail Performing Clinician Start: 05-17-2024 Radex ribs uni w/posteroant ch minimum 3 views Angeles Payan [employer] Work Phone: Start: 12-09-2023 Plain X-ray of bilat eral hands DO Vernon Greene Work Phone: Start: 12-09-2023 X-ray of both knees DO Vernon Expert Work Phone: Start: 07-04-2023 Open reduction of fracture with internal fixation DO Vernon Expert Work Phone: Start: 02-26-2023 Plain X-ray of left elbow DO Erickson Nascimento Work Phone: Start: 05-15-2022 PSA screening VERNON [employer] Comment on above: Performed By: #### P [facility] #### [facility] [address] [place] [address] Dr. Ginger Keane Plan of Treatment Date Care Activity Detail Author Start: 11-24-2023 Hemolytic complement CH50 level [facility] Start: 11-24-2023 Hepatitis B core ant ibody measurement [facility] Start: 11-24-2023 [facility] Start: 10-20-2023 Patient referral [facility] Work Phone: Start: 07-04-2023 [facility] 24 hour urine measurement [facility] Adenosine monophosph ate.cyclic [Moles/volume] in Serum or Plasma [facility] Albumin [Mass/volume ] in Serum or Plasma [facility] Albumin/Globulin ratio [facility] Complement C3 [Mass/ volume] in Serum or Plasma [facility] Complement C4 [Mass/ volume] in Serum or Plasma [facility] Comprehensive metabo lic 1999 panel - Serum or Plasma [facility] Comprehensive metabo lic 1999 panel - Serum or Plasma [facility] Electrophoresis: [id number] [facility] Electrophoresis: [id number] [facility] Electrophoresis: beta-globulin [facility] Electrophoresis: gamma globulin [facility] Globulin [Mass/volume] in Serum [facility] Hepatitis B virus elizabeth rface Ab [Presence] in Serum [facility] Hepatitis B virus elizabeth rface Ag [Presence] in Serum or Plasma by Immunoassay [facility] Hepatitis C virus Ig G Ab [Presence] in Serum or Plasma by Immunoassay [facility] Homogenous nuclear A b pattern [Titer] in Serum [facility] IgA [Mass/volume] in Serum or Plasma [facility] IgG [Mass/volume] in Serum or Plasma [facility] IgM [Mass/volume] in Serum or Plasma [facility] Immunofixation for Urine [facility] Ellerbe light chains.f ree [Mass/volume] in Serum [facility] Ellerbe light chains.f ree/Lambda light chains.free [Mass Ratio] in Serum [facility] Lambda light chains. free [Mass/volume] in Serum or Plasma [facility] Measurement of monoc lonal protein concentration [facility] Microalbumin [Mass/volume] in Urine [facility] Myeloperoxidase Ab [ Units/volume] in Serum by Immunoassay [facility] Neutrophil cytoplasm ic Ab.classic [Titer] in Serum by Immunofluorescence [facility] Neutrophil cytoplasm ic Ab.perinuclear.atypical [Titer] in Serum by Immunofluorescence [facility] Nuclear Ab [Titer] in Serum [facility] P-ANCA measurement [facility] Patient referral [facility] Work Phone: Protein [Mass/volume ] in Serum or Plasma [facility] Protein [Mass/volume] in Urine [facility] Proteinase 3 Ab [Uni ts/volume] in Serum by Immunoassay [facility] Rheumatoid factor [U nits/volume] in Serum or Plasma [facility] Serum immunofixation [facility] Immunizations Immunization Date Immunization Notes Care Provider Fa oma 05-25-2018 pneumococcal polysaccharide vaccine, 23 valent Vernon Greene Other [facility] 07-01-2017 diphtheria, tetanus toxoids and acellular pertussis vaccine, unspecified formulation Vernon Greene Other [facility] 07-01-2017 pneumococcal conjuga te vaccine, 13 cherri Vernon Laureen Other [facility] Payers Date Payer Category Payer Medicare [employer] MEDICARE ADVANTAGE [facility] MEDICARE ADVANTAGE [id number] 2023-Present [address] [place] [address] [id number] 1958 Medicare [id number] 1959 Self-pay 1950 Unknown [id number] 1950 Unknown [id number] 1950 Unknown [id number] [id number] 9 1950 Unknown [id number] 2.16.840.1.605951.3.579.2.125 9 Unknown [id number] [id number] Unknown [id number] 2.16.840.1.168538.3.579.2.593 Unknown [id number] 2.16.840.1.464263.3.579.2.593 Unknown [id number] 2.16.840.1.229958.3.579.2.531 Unknown [id number] 2.16.840.1.007171.3.579.2.531 Unknown [id number] 2.16.840.1.968798.3.579.2.531 Unknown [id number] 2.16.840.1.893609.3.579.2.531 Unknown [id number] [id number] Social History Date Type Detail Facility Sex Assigned At [facility] Other Start: 1950 Sex Assigned At Male F [facility] Start: 07-04-2023 End: 07-04-2023 Tobacco smoking status NHIS Ex-smoker (finding) [facility] Start: 05-17-2024 Tobacco smoking stat us LAIS Never smoked tobacco [facility] Start: 05-17-2024 Tobacco use and exposure Smokeless tobacco non-user [facility] Start: 05-17-2024 Alcoholic beverage intake Current drinker of alcohol (finding) [facility] Start: 1950 Sex assigned at Not on file [facility] [place] [place] [facility] Start: 09-24-2024 Sex Male (finding) [facility] Goals Date Patient Goal Desired Activity /State [...] w chest anteroposterior documented in this encounter [facility] 10-06-2023 Evaluation note Encounter Date Diagnosis Assessment Notes Oct, Interstitial lung disease (ICD-10 - J84.9) Oct, Hypoxia (ICD-10 - R09.02) Oct, Nicotine dependence, cigarettes, in remission (ICD-10 - F17.211) Age started 17 1 ppd Age quit 52 [facility] Other 01-31-2024 Evaluation note* Encounter Date Diagnosis [...] as needed. CXR, f/u from COVID infection [facility] Other 12-29-2023 Evaluation note* Encounter Date Diagnosis [...] 1 ppd Age quit 52 Continue abstinence [facility] Other [id number] Evaluation note* Encounter Date Diagnosis Assessment Notes [...] and hypoxia. MDI and oxygen for now. [facility] Other 12-01-2023 Evaluation note* Encounter Date Diagnosis Assessment Notes Treatment Notes Treatment Clinical Notes Aug, Weight loss (ICD-10 - R63.4) [facility] Other 11-09-2023 Evaluation note* Encounter Date Diagnosis [...] or bowel habits. No melena or hematochezia [facility] Other 11-01-2023 Evaluation note* Encounter Date Diagnosis [...] poor healing. I have advised against the alf use of narcotic pain medication. I have [...] Jul, Elbow mass, left (ICD-10 - R22.32) [facility] Other 09-19-2023 Evaluation note* Encounter Date Diagnosis [...] PSA (prostate specific antigen) (ICD-10 - Z12.5) [facility] Other 06-28-2023 Evaluation note* Encounter Date Diagnosis [...] as documented in the electronic medical record. [facility] Other 06-19-2023 Evaluation note* Encounter Date Diagnosis [...] wks. Nontender and mobile. Refer to Orthopedics [facility] [employer] Other 03-27-2023 NotePROCEDURE: XR KNEE LT 3V [...] Electronically authenticated by: VINNY MURILLO Date: 2022-11-25 10:55[facility] [place] [facility]03-20-2023 Evaluation note* Encounter Date Diagnosis Assessment [...] Initiate PPI and if no improvement, EGD [facility] Other Evaluation noteNo InformationNort [employer]! Other Evaluation noteNo assessment information available [facility] Work Phone: Evaluation note* Diagnosis Onset Date Resolution Status Inflammatory polyarthritis a cute [facility] Work Phone: Evaluation note* Diagnosis Onset Date Resolution Status ASHD (arteriosclerotic heart disease) acute [id number] acute Hypoxia acute ILD (interstitial lung disease) acute Inflammatory polyarthritis a cute Nicotine dependence, cigarettes, in remission acute Sinus tachycardia acute [facility] Work Phone: Evaluation note* Diagnosis [...] Type 2 diabetes mellitus with hyperglycemia [facility] Work Phone: Evaluation note* Diagnosis Onset [...] Type 2 diabetes mellitus with hyperglycemia [facility] Work Phone: Evaluation note* Diagnosis Closed fracture [...] wit h hyperglycemia acute September 24 11:26am [facility] Work Phone: History general Narrative - Reported* [...] long-term current use of insulin Surgical History [facility] PTCA/STENT 2002 Surgical History [facility] 2006 Hospitalization History SEE SURGICAL [facility] Other History general Narrative - Reported* Type [...] long-term current use of insulin Surgical History [facility] PTCA/STENT 2002 Surgical History [facility] 2006 Surgical History Excision left elbow mass 3 Hospitalization History SEE SURGICAL [facility] Other Hospital Discharge instructions Additional Instructions Orthopedic [...] prescribed. You may take Motrin or Tylenol [id number] if you wish. Follow-up in [address] [facility]on [facility] [address] [place] [address] [place] [address] [phone] Work Phone: Reason for referral (narrative)* Reason *Waiting for appt Referral for recurrent left Olecranon bursa and SC nodule Diagnosis 1 Olecranon bursitis o f left elbow (M70.22) Diagnosis 2 Subcutaneous nodule (R22.9) Referral Organization [facility] Laureen hampton Referring Provider First Name Vernon Referring Provider Last Name Laureen Referring Provider Specialty Internal Me dicine Referred Organization [facility] Referred Provider Erickson Nascimento Referred Address [address] [place],[address] Referred Provider Specialty Orthopedic S urgery Referral [...] 02/17/2023 11:21:37 AM >received today, sent P2P [facility] Other Reason for referral (narrative)* Reason Referral for screeni ng colonoscopy and EGD Diagnosis 1 Unexplained weight l oss (R63.4) Diagnosis 2 Epigastric discomfor t (R10.13) Diagnosis 3 Serum lipase elevati on (R74.8) Diagnosis 4 Colon cancer screeni ng (Z12.11) Referral Organization [facility] Laureen hampton Referring Provider First Name Vernon Referring Provider Last Name Laureen Referring Provider Specialty Internal Ne leonardo Referred Organization [facility] Referred Provider Rochelle Woodard Referred Address [address] [place], [place],[address] Referred Provider Specialty Gastroentero logy Referral Priority [...] be done within the next 2-3 wks. [facility] Other Summary Purpose Family History Relationship Condition [...] for Visit ASHD (arteriosclerot ic heart disease) [id number] Hypoxia ILD (interstitial lung disease) Inflammatory polyarthritis Nicotine dependence, cigarettes, in remission Sinus tachycardia Chief Complaint 4 Month Follow Up 1 week M35.9;Z11.59;Z79.899;D89.2 Hand pain Knee Pain Reason for Visit ASHD (arteriosclerot ic heart disease) [id number] Hypoxia ILD (interstitial lung disease) Inflammatory polyarthritis [...] CREATED AUTHOR AUTHOR'S ORGANIZ ATION 01/10/2024 [facility] DATE CREATED AUTHOR AUTHOR'S ORGANIZ ATION 05/23/2024 [facility] [employer] Care Teams (unrecognized sec [...] BE BASED ON THE PRIMARY CLINICAL RECORDS. [facility] [employer] [facility]. provides no warranty or guarantee of the accuracy or completeness of information in this document.
--- NOTE | 2024-10-11 13:59 | RT_ITS ---
The [facility] Test Date: 2024-10-11 Pat Name: VINAY SPAULDING Department: Room: - Gender: Male Direct Support Professional Home Health: Thnoy Funez RRT : 1950 Requested By: Alli Sims Order Number: [id number] Reading MD: Alli Sims Interpretive Statements Pulmonary function testing was completed according to ATS criteria. Findings were considered accurate and reproducible, with exception of DLCO which did not meet ATS standards. Both pre- and post-bronchodilator values utilized for spirometry. Spirometry: -FEV1/FVC: Normal @ 92% -FEV1: Normal @ 89% -FEV1: Mild-moderately reduced @ 70% Lung volumes by plethysmography: -RV: Reduced @ 77% -TLC: Mildly reduced @ 75% Diffusion capacity: -DLCO: Very severe reduction @ 39% when corrected for Hb 14.4g/dL Comparison with prior PFT 03/11/2024 and 10/14/2023: -T% & 62% -DLCO: 42% & 34% Impressions: -Spirometry suggests mild-moderate restriction, confirmed with a reduced TLC. Very severe diffusion impairment. Overall study is compatible with ILD/pulmonary fibrosis. Compared to prior PFT, TLC has improved with DLCO remaining within the previously reported range. Clinical correlation required. Electronically Signed On 10-12-2024 10:21:54 EST by Alli Sims
--- NOTE | 2024-10-11 14:45 | CT_ITS ---
The [address] [address] Patient Name: VINAY SPAULDING MRN: [id number] date: 1950 Sex: M Assigned Patient Location: CT Current Patient Location: Accession/Order Number: [id number] Exam Date: 10/11/2024 14:37 Report Date: 10/12/2024 06:46 At the request of: ELVIN GUILLEN Procedure: CT chest high res EXAMINATION: CT chest high res HISTORY: Pulmonary Fibrosis COMPARISON: No relevant comparison available. TECHNIQUE: Axial images were obtained at 10 mm intervals during inspiration and expiration in the supine and prone positions. No IV contrast given. Dose reduction techniques were achieved by using automated exposure control and/or adjustment of mA and/or kV according to patient size and/or use of iterative reconstruction technique. FINDINGS: LUNGS: Moderate peripheral fibrosis throughout the lungs, slightly greater within lung bases. No acute infiltrates or appreciable mass. Patent bronchi; no appreciable mucous plugging. PLEURA: No mass, effusion, or pneumothorax. AWILDA: No mass or adenopathy. MEDIASTINUM: No mass or adenopathy. HEART: No significant enlargement or pericardial effusion.. Coronary arteries: Heavy. There is AORTA: No aneurysm.. CHEST WALL: No mass or axillary adenopathy LIMITED ABDOMEN: No suspicious findings. Limited images of the upper abdomen. OTHER: Old healed left rib fractures. CT/CT chest high res IMPRESSION: 1. Grossly stable moderate to marked peripheral fibrosis bilaterally. No appreciable acute infiltrates or mass. Electronically authenticated by: VINNY MURILLO Date: 10/12/2024 06:46
== END 2024-10-11 12:49 | disposition home or self-care (01) ==
LOC: CT 12:48
PROVIDERS: PCP Internal Medicine; Visit Provider Internal Medicine
DX: J84.10 Pulmonary fibrosis, unspecified (principal); U09.9 Post COVID-19 condition, unspecified
CPT/HCPCS: 71250; 94010; 94726; 94729

== ENCOUNTER 2024-10-28 12:48 | Outpatient (OUT) | payer MEDICARE, SELFPAY ==
--- NOTE | 2024-10-28 12:59 | XR_ITS ---
The [facility] [id number] Patient Name: VINAY SPAULDING MRN: [id number] date: 1950 Sex: M Assigned Patient Location: [facility] Current Patient Location: [facility] Accession/Order Number: [id number] Exam Date: 10/28/2024 13:29 Report Date: 10/28/2024 13:34 At the request of: MACK GARDUNO DO Procedure: XR lumbar spine 6V w bending LUMBAR SPINE COMPLETE WITH FLEXION AND EXTENSION VIEWS - 8 views: CLINICAL HISTORY: Low back pain without injury. Radiation down the legs, right greater than left COMPARISON: CT 07/31/2023 AP, lateral (neutral, flexion and extension), both oblique and AP and lateral coned-down views of the lumbosacral junction were obtained. There is osteopenia. There is no evidence of fracture. No significant displacement or instability is seen. There is disc space narrowing at the lumbosacral junction. Mild endplate spurring is present. There is also mild lower lumbar facet hypertrophy. No pars defect is identified. The sacroiliac joints are maintained. There is atherosclerotic plaque at the aorta. There are no paraspinal soft tissue abnormalities. XR/XR lumbar spine 6V w bending IMPRESSION: OSTEOPENIA AND MILD DEGENERATIVE CHANGES, GREATEST AT THE LUMBOSACRAL JUNCTION. NO ACUTE PLAIN FILM FINDINGS.. Impression dictated by: Susie Campos M.D.10/28/2024 1:34 PM Dictation Location: [facility] Electronically authenticated by: [id number] Y Date: 10/28/2024 13:34
== END 2024-10-28 12:49 | disposition home or self-care (01) ==
PROVIDERS: PCP Internal Medicine; Visit Provider Internal Medicine
DX: M54.50 Low back pain, unspecified (principal); M51.369 Other intervertebral disc degeneration, lumbar region without mention of lumbar back pain or lower extremity pain; M85.88 Other specified disorders of bone density and structure, other site
CPT/HCPCS: 72114

== ENCOUNTER 2024-11-02 12:46 | Outpatient (OUT) | payer MEDICARE, SELFPAY ==
--- OUTSIDE RECORDS SUMMARY | 2024-11-02 12:53 | XMS_ITS | CCD ---
Author Organization [facility] CliniSyid Care Team Providers Care Commutator Operator Name Role Phone Vernon Greene Unavailable VERNON GREENE Admitting Unavailable LAUREEN, VERNON Attending Unavailable LAUREEN, VENRON Primary Care Unavailable BALL, VERNON Consulting Unavailable [...] Nascimento Unavailable DO Erickson Nascimento Attending Provider [phone] DO Vernon Greene Primary Care Provider Navneet Puga Unavailable Asaad, Imad Unavailable DO Vernon Greene Primary Care Provider MD Carlos Guzmán Attending Provider [phone] Carlos Guzmán Admitting Unavailable Carlos Guzmán Attending Unavailable Vernon Greene Primary Care Unavailable Carlos Guzmán Admitting Unavailable Carlos Guzmán Attending Unavailable Vrenon Greene Primary Care Unavailable Erickson Nascimento Admitting [...] SUGAR ONCE EVERY DAY for 90 Active [id number] 200 actuat albuterol 0.09 mg/actuat metered dose inhaler (20 sources) beta2-Adrenergic Agonist Start: 12-22-2023 End: 04-26-2024 [...] BREATH Active aspirin 81 mg oral tablet (8 sources) Platelet Aggregation Inhibitor, Nonsteroidal Anti-inflammatory Drug [...] Active hydroxychloroquine sulfate 200 mg oral tablet (7 sources) Antimalarial, Antirheumatic Agent Start: 12-01-2023 take [...] 9:43am mycophenolate mofetil 500 mg oral tablet (2 sources) Start: 06-24-2024 take 1 tablet by mouth [...] omeprazole 20 mg delayed release oral tablet (13 sources) Proton Pump Inhibitor Start: 07-04-2023 take 1 tablet by mouth once daily Omeprazole 20 mg Tablet,Delayed Release (Dr/Ec) Active 20 MG PO Daily July 03, 2023 11:00pm Start: 11-18-2022 take 1 capsule by [facility] once daily Omeprazole 40 MG 1 capsule 30 minutes before morning meal Orally Once a day for 30 days Oct, Active Ozempic, 1 MG/DOSE, 4 MG/3ML solution pen-injector (2 sources) Start: 04-18-2024 inject 1 mg by subcutaneous injection every week Ozempic, 1 MG/DOSE, 4 MG/3ML solution pen-injector INJECT 1MG SUBCUTANEOUSLY EVERY WEEK FOR 28 DAYS 04/18/2024 Active predniSONE 5 mg oral tablet (4 sources) Start: 09-24-2024 take 1 tablet by mouth every other day Prednisone 5 mg tablet Active 5 MG PO .QOD September 24, 2024 12:00am Start: 05-13-2024 predniSONE (De ltasone) 5 MG tablet 05/13/2024 Active Semaglutide (7 sources) Start: 09-03-2024 inject 1 mg by [...] Dulaglutide (Trulicity) 3 mg/0.5 mL pen injector (8 sources) Start: 07-04-2023 End: 01-28-2024 Dulaglutide (Trulicity) [...] 2023 12:00am meloxicam 15 mg oral tablet (19 sources) Nonsteroidal Anti-inflammatory Drug Start: 12-03-2023 End: [...] 8:58am traMADol hydrochloride 50 mg oral tablet (8 sources) Opioid Agonist Start: 07-04-2023 End: 05-26-2024 take 1 tablet by mouth every four hours as needed for pain Tramadol 50 mg tablet Discontinued 50 MG PO Q4H as needed for pain 06 07July 03, 2023 11:00pm May 26, 2024 12:32pm Problems Active Problems Problem Classification Problem Date Documented Da te Episodic/Chronic Abdominal pain (2 sources) Epigastric pain Episodic Cardiac dysrhythmias (11 sources) Tachycardia, unspecified; Translations: [Sinus tachycardia] Episodic Chronic obstructive pulmonary disease and bronchiectasis (20 sources) Acute exacerbation of chronic obstructive airways disease; Translations: [Chronic obstructive pulmonary disease with (acute) exacerbation] Chronic Coronary atherosclerosis and other heart disease (20 sources) Coronary arteriosclerosis; Translations: [Atherosclerotic heart disease of [place] coronary artery without angina pectoris] Chronic Diabetes [...] Episodic Other aftercare (2 sources) Other intermediate accountant (current) drug therapy; Translations: [OTH ASSISTED CURRENT [...] serum enzymes Episodic Other lower respiratory disease (10 sources) Interstitial lung disease; Translations: [Interstitial pulmonary disease, unspecified] 10-20-2023 Chronic Comment on above: CT chest: interstiti al changes, pulmonary fibrosis - 04/2024 CT chest: interstiti al changes, pulmonary fibrosis - 04/2024,CT chest: peripheral fibrosis - 10/2024 Other lower respiratory disease (8 sources) Interstitial pulmonary disease, unspecified; 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 Other lower respiratory disease (3 sources) Fibrosis of lung; Translations: [Pulmonary fibrosis, unspecified] 05-04-2024 Chronic Other lower respiratory disease (11 sources) Hypoxemia; Translations: [Hypoxemia] Episodic Other lower respiratory disease (7 sources) Hypoxia; Translations: [Hypoxemia] 10-18-2023 Episodic Other [...] conditions (not mental disorders or infectious disease) (8 sources) Encounter for screening for malignant neoplasm of prostate; Translations: [Encounter for screening for malignant neoplasm of colon] Onset: 05-19-2022 Episodic Comment on above: PSA: 0.9 - Jun 2024, Other skin disorders (1 source) Localized swelling, mass and lump, unspecified Episodic Other skin disorders (1 source) Localized swelling, mass and lump, left upper limb Episodic Other skin disorders (9 sources) Localized swelling, mass and lump, unspecified upper limb; Translations: [Elbow mass] Onset: 07-04-2023 07-04-2023 Episodic Other upper respiratory disease (20 sources) Bleeding from nose; Translations: [Epistaxis] Episodic Rheumatoid arthritis and related disease (20 sources) Inflammatory polyarthropathy; Translations: [Inflammatory polyarthropathy] 10-20-2023 Chronic Spondylosis; intervertebral disc disorders; other back problems (20 sources) Lumbar spondylosis; Translations: [Spondylosis without myelopathy or radiculopathy, lumbar region] Chronic Spondylosis; intervertebral disc disorders; other back problems (3 sources) Low back pain; Translations: [Low back pain] 09-24-2024 Episodic Substance-related disorders (20 sources) Tobacco user; Translations: [...] in left elbow] Onset: 02-26-2023 Viral infection (10 sources) COVID-19; Translations: [Pneumonia due to COVID-19 [...] [facility] Basophils Auto (Bld) [#/Vol] on 09-28-2024 Basophils (Bld) [#/Vol] Automated basoph il count 0.0-0.1 [facility] Basophils/100 WBC Auto (Bld) on 09-28-2024 Basophils/100 WBC (Bld) Automated basophil % 0. 2-2.0 [facility] Eosinophils/100 WBC Auto (Bl d)on 09-28-2024 Eosinophils/100 WBC (Bld) Automated eosi nophil % 0.9-7.0 [facility] Erythrocyte distribution wid th Auto (RBC) [Ratio]on 09-28-2024 Erythrocyte distribution width (RBC) [Ratio] Erythrocyte distribution width [Ratio] by Automated count 11.0-15.0 [facility] Estimated glomerular filtrat ion rate (GFR) non- Americanon 09-28-2024 GFR/1.73 sq M.predicted among non-blacks MDRD (S/P/Bld) [Vol rate/Area] Estimated glomerular filtration rate (GFR) non- >=60 mL/min/1.7 3m 2 [facility] Globulin Calc (S) [Mass/Vol] on 09-28-2024 Globulin (S) [Mass/Vol] Serum globulin measurement by calculation (mass/volume) [facility] Glucose mean value [Mass/vol ume] in Blood Estimated from glycated hemoglobinon 09-28-2024 Average glucose Estimated from glycated hemoglobin (Bld) [Mass/Vol] Glucose mean value [Mass/volume] in Blood Estimated from glycated hemoglobin [facility] Hematocrit Auto (Bld) [Volum e fraction]on 09-28-2024 Hematocrit (Bld) [Volume fraction] Hematocrit [Volume Fraction] of Blood by Automated count 42.0-54.0 [facility] Hemoglobin A1c percentageon 09-28-2024 HbA1c (Bld) [Mass fraction] Hemoglobin A 1c percentage High 4.5-6.2 [facility] Comment on above: ADA RECOMMENDED LIMI T 4.0 - 6.0ADA THERAPEUTIC TARGET < 7.0ACTION SUGGESTED> 7.0 Hemoglobin [Mass/volume] in Bloodon 09-28-2024 Hemoglobin (Bld) [Mass/Vol] Hemoglobin [Mass/volume] in Blood 14.0-18.0 [facility] Laboratory - Chemistry and C hemistry - challengeon 09-28-2024 Albumin [Mass/Vol] 3.6 g/dL 3.4-5.0 [facility] ALP [Catalytic activity/Vol] 72 U/L 46-116 [facility] ALT [Catalytic activity/Vol] 17 U/L 16-63 [facility] AST [Catalytic activity/Vol] 10 U/L Low 15-37 [facility] Bilirubin [Mass/Vol] 0.5 mg/dL 0.2-1.0 [facility] Bilirubin.direct [Mass/Vol] 0.1 mg/dL 0.0-0.2 [facility] Creatinine [Mass/Vol] 1.12 mg/dL 0.70-1.30 [place] GFR/1.73 sq M.predicted MDRD (S/P/Bld) [Vol rate/Area] mL/min/{1.73_m2} >=60 mL/min/1.7 3m 2 [facility] Protein [Mass/Vol] 7.6 g/dL 6.4-8.2 [facility] Laboratory - Hematology and Cell countson 09-28-2024 ESR (Bld) [Velocity] 22 mm/h High <=20 [facility] Immature granulocytes/100 WBC (Bld) 0.2 % 0.0-0.5 [facility] Leukocytes [#/volume] correc yuniel for nucleated erythrocytes in Blood by Automated counon 09-28-2024 WBC corrected for nucl RBC Auto (Bld) [#/Vol] Leukocytes [#/volume] corrected for nucleated erythrocytes in Blood by Automated coun 4.0-11.0 [facility] Lymphocytes Auto (Bld) [#/Vo l]on 09-28-2024 Lymphocytes (Bld) [#/Vol] Lymphocytes [#/volume] in Blood by Automated count 1.2-3.8 [facility] Lymphocytes/100 WBC Auto (Bl d)on 09-28-2024 Lymphocytes/100 WBC (Bld) Lymphocytes/10 0 leukocytes in Blood by Automated count Low 20.5-60.0 [facility] MCH Auto (RBC) [Entitic mass ]on 09-28-2024 MCH (RBC) [Entitic mass] MCH [Entitic ma ss] by Automated count 25.9-34.0 [facility] MCHC Auto (RBC) [Mass/Vol]on 09-28-2024 MCHC (RBC) [Mass/Vol] MCHC [Mass/volume] by Automated count 29.9-35.2 [facility] MCV Auto (RBC) [Entitic vol] on 09-28-2024 MCV (RBC) [Entitic vol] MCV [Entitic vol ume] by Automated count 80.0-94.0 [facility] Monocytes Auto (Bld) [#/Vol] on 09-28-2024 Monocytes (Bld) [#/Vol] Automated blood monocyte count 0.3-0.8 [facility] Monocytes/100 WBC Auto (Bld) on 09-28-2024 Monocytes/100 WBC (Bld) Automated monocyte % 1. 7-12.0 [facility] Neutrophils Auto (Bld) [#/Vo l]on 09-28-2024 Neutrophils (Bld) [#/Vol] Neutrophils [#/volume] in Blood by Automated count 1.4-6.5 [facility] Neutrophils/100 WBC Auto (Bl d)on 09-28-2024 Neutrophils/100 WBC (Bld) Automated neut rophil % 43.0-75.0 [facility] No Panel Informationon 09-28 Eosinophils # (Auto) 0.2 10 3/uL 0.0-0.7 [place] Immature Granulocyte # (Auto) 0.02 10 3/uL 0.00-0.03 [facility] Platelet mean volume Auto (B ld) [Entitic vol]on 09-28-2024 Platelet mean volume (Bld) [Entitic vol] Platelet mean volume [Entitic volume] in Blood by Automated count Low 9.5-13.5 [facility] Platelets Auto (Bld) [#/Vol] on 09-28-2024 Platelets (Bld) [#/Vol] Platelets [#/vol ume] in Blood by Automated count 150-450 [facility] RBC Auto (Bld) [#/Vol]on RBC (Bld) [#/Vol] Erythrocytes [#/volume] in Blood by Automated count Low 4.70-6.10 [facility] Serum or plasma albumin/glob ulin mass ratioon 09-28-2024 Albumin/Globulin [Mass ratio] Serum or plasma albumin/globulin mass ratio [facility] Basophils Auto (Bld) [#/Vol] on 08-17-2024 Basophils (Bld) [#/Vol] Automated basoph il count 0.0-0.1 [facility] Basophils/100 WBC Auto (Bld) on 08-17-2024 Basophils/100 WBC (Bld) Automated basophil % 0. 2-2.0 [facility] Eosinophils/100 WBC Auto (Bl d)on 08-17-2024 Eosinophils/100 WBC (Bld) Automated eosi nophil % 0.9-7.0 [facility] Erythrocyte distribution wid th Auto (RBC) [Ratio]on 08-17-2024 Erythrocyte distribution width (RBC) [Ratio] Erythrocyte distribution width [Ratio] by Automated count 11.0-15.0 [facility] Estimated glomerular filtrat ion rate (GFR) non- Americanon 08-17-2024 GFR/1.73 sq M.predicted among non-blacks MDRD (S/P/Bld) [Vol rate/Area] Estimated glomerular filtration rate (GFR) non- >=60 mL/min/1.7 3m 2 [facility] Hematocrit Auto (Bld) [Volum e fraction]on 08-17-2024 Hematocrit (Bld) [Volume fraction] Hematocrit [Volume Fraction] of Blood by Automated count Low 42.0-54.0 [facility] Hemoglobin [Mass/volume] in Bloodon 08-17-2024 Hemoglobin (Bld) [Mass/Vol] Hemoglobin [Mass/volume] in Blood 14.0-18.0 [facility] Laboratory - Chemistry and C hemistry - challengeon 08-17-2024 Albumin [Mass/Vol] 3.4 g/dL 3.4-5.0 [facility] ALP [Catalytic activity/Vol] 72 U/L 46-116 [facility] ALT [Catalytic activity/Vol] 16 U/L 16-63 [facility] AST [Catalytic activity/Vol] 11 U/L Low 15-37 [facility] Bilirubin [Mass/Vol] 0.6 mg/dL 0.2-1.0 [facility] Creatinine [Mass/Vol] 1.17 mg/dL 0.70-1.30 [place] GFR/1.73 sq M.predicted MDRD (S/P/Bld) [Vol rate/Area] mL/min/{1.73_m2} >=60 mL/min/1.7 3m 2 [facility] Laboratory - Hematology and Cell countson 08-17-2024 ESR (Bld) [Velocity] 21 mm/h High <=20 [facility] Immature granulocytes/100 WBC (Bld) 0.2 % 0.0-0.5 [facility] Leukocytes [#/volume] correc yuniel for nucleated erythrocytes in Blood by Automated counon 08-17-2024 WBC corrected for nucl RBC Auto (Bld) [#/Vol] Leukocytes [#/volume] corrected for nucleated erythrocytes in Blood by Automated coun 4.0-11.0 [facility] Lymphocytes Auto (Bld) [#/Vo l]on 08-17-2024 Lymphocytes (Bld) [#/Vol] Lymphocytes [#/volume] in Blood by Automated count 1.2-3.8 [facility] Lymphocytes/100 WBC Auto (Bl d)on 08-17-2024 Lymphocytes/100 WBC (Bld) Lymphocytes/10 0 leukocytes in Blood by Automated count 20.5-60.0 [facility] MCH Auto (RBC) [Entitic mass ]on 08-17-2024 MCH (RBC) [Entitic mass] MCH [Entitic ma ss] by Automated count 25.9-34.0 [facility] MCHC Auto (RBC) [Mass/Vol]on 08-17-2024 MCHC (RBC) [Mass/Vol] MCHC [Mass/volume] by Automated count 29.9-35.2 [facility] MCV Auto (RBC) [Entitic vol] on 08-17-2024 MCV (RBC) [Entitic vol] MCV [Entitic vol ume] by Automated count 80.0-94.0 [facility] Monocytes Auto (Bld) [#/Vol] on 08-17-2024 Monocytes (Bld) [#/Vol] Automated blood monocyte count 0.3-0.8 [facility] Monocytes/100 WBC Auto (Bld) on 08-17-2024 Monocytes/100 WBC (Bld) Automated monocyte % 1. 7-12.0 [facility] Neutrophils Auto (Bld) [#/Vo l]on 08-17-2024 Neutrophils (Bld) [#/Vol] Neutrophils [#/volume] in Blood by Automated count High 1.4-6.5 [facility] Neutrophils/100 WBC Auto (Bl d)on 08-17-2024 Neutrophils/100 WBC (Bld) Automated neut rophil % 43.0-75.0 [facility] No Panel Informationon 08-17 Eosinophils # (Auto) 0.2 10 3/uL 0.0-0.7 [place] Immature Granulocyte # (Auto) 0.02 10 3/uL 0.00-0.03 [facility] Platelet mean volume Auto (B ld) [Entitic vol]on 08-17-2024 Platelet mean volume (Bld) [Entitic vol] Platelet mean volume [Entitic volume] in Blood by Automated count 9.5-13.5 [facility] Platelets Auto (Bld) [#/Vol] on 08-17-2024 Platelets (Bld) [#/Vol] Platelets [#/vol ume] in Blood by Automated count 150-450 [facility] RBC Auto (Bld) [#/Vol]on RBC (Bld) [#/Vol] Erythrocytes [#/volume] in Blood by Automated count Low 4.70-6.10 [facility] Basophils Auto (Bld) [#/Vol] on 08-03-2024 Basophils (Bld) [#/Vol] Automated basoph il count 0.0-0.1 [facility] Basophils/100 WBC Auto (Bld) on 08-03-2024 Basophils/100 WBC (Bld) Automated basophil % 0. 2-2.0 [facility] Eosinophils/100 WBC Auto (Bl d)on 08-03-2024 Eosinophils/100 WBC (Bld) Automated eosi nophil % 0.9-7.0 [facility] Erythrocyte distribution wid th Auto (RBC) [Ratio]on 08-03-2024 Erythrocyte distribution width (RBC) [Ratio] Erythrocyte distribution width [Ratio] by Automated count 11.0-15.0 [facility] Hematocrit Auto (Bld) [Volum e fraction]on 08-03-2024 Hematocrit (Bld) [Volume fraction] Hematocrit [Volume Fraction] of Blood by Automated count Low 42.0-54.0 [facility] Hemoglobin [Mass/volume] in Bloodon 08-03-2024 Hemoglobin (Bld) [Mass/Vol] Hemoglobin [Mass/volume] in Blood Low 14.0-18.0 [facility] Laboratory - Hematology and Cell countson 08-03-2024 ESR (Bld) [Velocity] 22 mm/h High <=20 [facility] Immature granulocytes/100 WBC (Bld) 0.3 % 0.0-0.5 [facility] Leukocytes [#/volume] correc yuniel for nucleated erythrocytes in Blood by Automated counon 08-03-2024 WBC corrected for nucl RBC Auto (Bld) [#/Vol] Leukocytes [#/volume] corrected for nucleated erythrocytes in Blood by Automated coun 4.0-11.0 [facility] Lymphocytes Auto (Bld) [#/Vo l]on 08-03-2024 Lymphocytes (Bld) [#/Vol] Lymphocytes [#/volume] in Blood by Automated count 1.2-3.8 [facility] Lymphocytes/100 WBC Auto (Bl d)on 08-03-2024 Lymphocytes/100 WBC (Bld) Lymphocytes/10 0 leukocytes in Blood by Automated count 20.5-60.0 [facility] MCH Auto (RBC) [Entitic mass ]on 08-03-2024 MCH (RBC) [Entitic mass] MCH [Entitic ma ss] by Automated count 25.9-34.0 [facility] MCHC Auto (RBC) [Mass/Vol]on 08-03-2024 MCHC (RBC) [Mass/Vol] MCHC [Mass/volume] by Automated count 29.9-35.2 [facility] MCV Auto (RBC) [Entitic vol] on 08-03-2024 MCV (RBC) [Entitic vol] MCV [Entitic vol ume] by Automated count 80.0-94.0 [facility] Monocytes Auto (Bld) [#/Vol] on 08-03-2024 Monocytes (Bld) [#/Vol] Automated blood monocyte count 0.3-0.8 [facility] Monocytes/100 WBC Auto (Bld) on 08-03-2024 Monocytes/100 WBC (Bld) Automated monocyte % 1. 7-12.0 [facility] Neutrophils Auto (Bld) [#/Vo l]on 08-03-2024 Neutrophils (Bld) [#/Vol] Neutrophils [#/volume] in Blood by Automated count 1.4-6.5 [facility] Neutrophils/100 WBC Auto (Bl d)on 08-03-2024 Neutrophils/100 WBC (Bld) Automated neut rophil % 43.0-75.0 [facility] No Panel Informationon 08-03 Eosinophils # (Auto) 0.1 10 3/uL 0.0-0.7 [place] Immature Granulocyte # (Auto) 0.03 10 3/uL 0.00-0.03 [facility] Platelet mean volume Auto (B ld) [Entitic vol]on 08-03-2024 Platelet mean volume (Bld) [Entitic vol] Platelet mean volume [Entitic volume] in Blood by Automated count 9.5-13.5 [facility] Platelets Auto (Bld) [#/Vol] on 08-03-2024 Platelets (Bld) [#/Vol] Platelets [#/vol ume] in Blood by Automated count 150-450 [facility] RBC Auto (Bld) [#/Vol]on RBC (Bld) [#/Vol] Erythrocytes [#/volume] in Blood by Automated count Low 4.70-6.10 [facility] Basophils Auto (Bld) [#/Vol] on 07-15-2024 Basophils (Bld) [#/Vol] Automated basoph il count 0.0-0.1 [facility] Basophils/100 WBC Auto (Bld) on 07-15-2024 Basophils/100 WBC (Bld) Automated basophil % 0. 2-2.0 [facility] Eosinophils/100 WBC Auto (Bl d)on 07-15-2024 Eosinophils/100 WBC (Bld) Automated eosi nophil % 0.9-7.0 [facility] Erythrocyte distribution wid th Auto (RBC) [Ratio]on 07-15-2024 Erythrocyte distribution width (RBC) [Ratio] Erythrocyte distribution width [Ratio] by Automated count 11.0-15.0 [facility] Hematocrit Auto (Bld) [Volum e fraction]on 07-15-2024 Hematocrit (Bld) [Volume fraction] Hematocrit [Volume Fraction] of Blood by Automated count Low 42.0-54.0 [facility] Hemoglobin [Mass/volume] in Bloodon 07-15-2024 Hemoglobin (Bld) [Mass/Vol] Hemoglobin [Mass/volume] in Blood 14.0-18.0 [facility] Laboratory - Hematology and Cell countson 07-15-2024 Immature granulocytes/100 WBC (Bld) 0.2 % 0.0-0.5 [facility] Leukocytes [#/volume] correc yuniel for nucleated erythrocytes in Blood by Automated counon 07-15-2024 WBC corrected for nucl RBC Auto (Bld) [#/Vol] Leukocytes [#/volume] corrected for nucleated erythrocytes in Blood by Automated coun 4.0-11.0 [facility] Lymphocytes Auto (Bld) [#/Vo l]on 07-15-2024 Lymphocytes (Bld) [#/Vol] Lymphocytes [#/volume] in Blood by Automated count 1.2-3.8 [facility] Lymphocytes/100 WBC Auto (Bl d)on 07-15-2024 Lymphocytes/100 WBC (Bld) Lymphocytes/10 0 leukocytes in Blood by Automated count 20.5-60.0 [facility] MCH Auto (RBC) [Entitic mass ]on 07-15-2024 MCH (RBC) [Entitic mass] MCH [Entitic ma ss] by Automated count 25.9-34.0 [facility] MCHC Auto (RBC) [Mass/Vol]on 07-15-2024 MCHC (RBC) [Mass/Vol] MCHC [Mass/volume] by Automated count High 29.9-35.2 [facility] MCV Auto (RBC) [Entitic vol] on 07-15-2024 MCV (RBC) [Entitic vol] MCV [Entitic vol ume] by Automated count 80.0-94.0 [facility] Monocytes Auto (Bld) [#/Vol] on 07-15-2024 Monocytes (Bld) [#/Vol] Automated blood monocyte count High 0.3-0.8 [facility] Monocytes/100 WBC Auto (Bld) on 07-15-2024 Monocytes/100 WBC (Bld) Automated monocyte % 1. 7-12.0 [facility] Neutrophils Auto (Bld) [#/Vo l]on 07-15-2024 Neutrophils (Bld) [#/Vol] Neutrophils [#/volume] in Blood by Automated count 1.4-6.5 [facility] Neutrophils/100 WBC Auto (Bl d)on 07-15-2024 Neutrophils/100 WBC (Bld) Automated neut rophil % 43.0-75.0 [facility] No Panel Informationon 07-15 Eosinophils # (Auto) 0.2 10 3/uL 0.0-0.7 [place] Immature Granulocyte # (Auto) 0.02 10 3/uL 0.00-0.03 [facility] Platelet mean volume Auto (B ld) [Entitic vol]on 07-15-2024 Platelet mean volume (Bld) [Entitic vol] Platelet mean volume [Entitic volume] in Blood by Automated count 9.5-13.5 [facility] Platelets Auto (Bld) [#/Vol] on 07-15-2024 Platelets (Bld) [#/Vol] Platelets [#/vol ume] in Blood by Automated count 150-450 [facility] RBC Auto (Bld) [#/Vol]on RBC (Bld) [#/Vol] Erythrocytes [#/volume] in Blood by Automated count Low 4.70-6.10 [facility] Basophils Auto (Bld) [#/Vol] on 07-08-2024 Basophils (Bld) [#/Vol] Automated basoph il count 0.0-0.1 [facility] Basophils/100 WBC Auto (Bld) on 07-08-2024 Basophils/100 WBC (Bld) Automated basophil % 0. 2-2.0 [facility] Eosinophils/100 WBC Auto (Bl d)on 07-08-2024 Eosinophils/100 WBC (Bld) Automated eosi nophil % 0.9-7.0 [facility] Erythrocyte distribution wid th Auto (RBC) [Ratio]on 07-08-2024 Erythrocyte distribution width (RBC) [Ratio] Erythrocyte distribution width [Ratio] by Automated count 11.0-15.0 [facility] Estimated glomerular filtrat ion rate (GFR) non- Americanon 07-08-2024 GFR/1.73 sq M.predicted among non-blacks MDRD (S/P/Bld) [Vol rate/Area] Estimated glomerular filtration rate (GFR) non- Low >=60 mL/min/1.7 3m 2 [facility] Hematocrit Auto (Bld) [Volum e fraction]on 07-08-2024 Hematocrit (Bld) [Volume fraction] Hematocrit [Volume Fraction] of Blood by Automated count Low 42.0-54.0 [facility] Hemoglobin [Mass/volume] in Bloodon 07-08-2024 Hemoglobin (Bld) [Mass/Vol] Hemoglobin [Mass/volume] in Blood 14.0-18.0 [facility] Laboratory - Chemistry and C hemistry - challengeon 07-08-2024 Bilirubin Ql (U) Negative NEGATIVE [facility] Glucose (U) [Mass/Vol] mg/dL [facility] (U) TRACE mg/dL Abnormal NEGATIVE [facility] pH (U) 5.5 [pH] 5.0-9.0 [facility] Specific gravity (U) [Rel density] 1.025 1.005-1.02 5 [facility] Urobilinogen Qn (U) 0.2 {Denis'U}/dL 0.2-1.0 [facility] Albumin [Mass/Vol] 3.5 g/dL 3.4-5.0 [facility] ALP [Catalytic activity/Vol] 81 U/L 46-116 [facility] ALT [Catalytic activity/Vol] 22 U/L 16-63 [facility] AST [Catalytic activity/Vol] 9 U/L Low 15-37 [facility] Bilirubin [Mass/Vol] 0.7 mg/dL 0.2-1.0 [facility] [facility] Creatinine [Mass/Vol] 1.21 mg/dL 0.70-1.30 [place] GFR/1.73 sq M.predicted MDRD (S/P/Bld) [Vol rate/Area] mL/min/{1.73_m2} >=60 mL/min/1.7 3m 2 [facility] Laboratory - Hematology and Cell countson 07-08-2024 ESR (Bld) [Velocity] 20 mm/h <=20 [facility] Immature granulocytes/100 WBC (Bld) 0.2 % 0.0-0.5 [facility] Laboratory - Specimen inform ationon 07-08-2024 Appearance (U) CLEAR CLEAR [facility] Color (U) LT. YELLOW YELLOW [facility] Laboratory - Urinalysison Amorphous sediment LM Ql (Urine sed) RARE [facility] Leukocyte esterase Test strip Ql (U) Negative NEGATIVE [facility] Mucus Ql (Urine sed) NONE SEEN NONE SEEN [facility] Nitrite Ql (U) Negative NEGATIVE [facility] Protein Ql (U) 30 mg/dL Abnormal NEG/TRACE [facility] Leukocytes [#/volume] correc yuniel for nucleated erythrocytes in Blood by Automated counon 07-08-2024 WBC corrected for nucl RBC Auto (Bld) [#/Vol] Leukocytes [#/volume] corrected for nucleated erythrocytes in Blood by Automated coun 4.0-11.0 [facility] Lymphocytes Auto (Bld) [#/Vo l]on 07-08-2024 Lymphocytes (Bld) [#/Vol] Lymphocytes [#/volume] in Blood by Automated count 1.2-3.8 [facility] Lymphocytes/100 WBC Auto (Bl d)on 07-08-2024 Lymphocytes/100 WBC (Bld) Lymphocytes/10 0 leukocytes in Blood by Automated count 20.5-60.0 [facility] MCH Auto (RBC) [Entitic mass ]on 07-08-2024 MCH (RBC) [Entitic mass] MCH [Entitic ma ss] by Automated count 25.9-34.0 [facility] MCHC Auto (RBC) [Mass/Vol]on 07-08-2024 MCHC (RBC) [Mass/Vol] MCHC [Mass/volume] by Automated count 29.9-35.2 [facility] MCV Auto (RBC) [Entitic vol] on 07-08-2024 MCV (RBC) [Entitic vol] MCV [Entitic vol ume] by Automated count 80.0-94.0 [facility] Monocytes Auto (Bld) [#/Vol] on 07-08-2024 Monocytes (Bld) [#/Vol] Automated blood monocyte count 0.3-0.8 [facility] Monocytes/100 WBC Auto (Bld) on 07-08-2024 Monocytes/100 WBC (Bld) Automated monocyte % 1. 7-12.0 [facility] Neutrophils Auto (Bld) [#/Vo l]on 07-08-2024 Neutrophils (Bld) [#/Vol] Neutrophils [#/volume] in Blood by Automated count 1.4-6.5 [facility] Neutrophils/100 WBC Auto (Bl d)on 07-08-2024 Neutrophils/100 WBC (Bld) Automated neut rophil % 43.0-75.0 [facility] No Panel Informationon 07-08 Urine Bacteria NONE SEEN #/HPF NONE SEEN [facility] Occult Blood Negative NEGATIVE [facility] Urine Other Casts NONE SEEN #/LPF NONE SEEN [facility] Urine Other Crystals Seen #/HPF Abnormal None Seen [facility] Urine RBC NONE SEEN #/HPF 0-2 [facility] Urine Squamous Epithelial Cells NONE SEEN #/LPF NONE/RARE [facility] Urine WBC NONE SEEN #/HPF NONE SEEN [facility] C-Reactive Protein, Quantitative <0.50 mg/dL <=0.50 [facility] Eosinophils # (Auto) 0.1 10 3/uL 0.0-0.7 [place] Immature Granulocyte # (Auto) 0.02 10 3/uL 0.00-0.03 [facility] Platelet mean volume Auto (B ld) [Entitic vol]on 07-08-2024 Platelet mean volume (Bld) [Entitic vol] Platelet mean volume [Entitic volume] in Blood by Automated count 9.5-13.5 [facility] Platelets Auto (Bld) [#/Vol] on 07-08-2024 Platelets (Bld) [#/Vol] Platelets [#/vol ume] in Blood by Automated count 150-450 [facility] RBC Auto (Bld) [#/Vol]on RBC (Bld) [#/Vol] Erythrocytes [#/volume] in Blood by Automated count Low 4.70-6.10 [facility] Basophils Auto (Bld) [#/Vol] on 07-01-2024 Basophils (Bld) [#/Vol] Automated basoph il count 0.0-0.1 [facility] Basophils/100 WBC Auto (Bld) on 07-01-2024 Basophils/100 WBC (Bld) Automated basophil % 0. 2-2.0 [facility] Eosinophils/100 WBC Auto (Bl d)on 07-01-2024 Eosinophils/100 WBC (Bld) Automated eosi nophil % 0.9-7.0 [facility] Erythrocyte distribution wid th Auto (RBC) [Ratio]on 07-01-2024 Erythrocyte distribution width (RBC) [Ratio] Erythrocyte distribution width [Ratio] by Automated count 11.0-15.0 [facility] Hematocrit Auto (Bld) [Volum e fraction]on 07-01-2024 Hematocrit (Bld) [Volume fraction] Hematocrit [Volume Fraction] of Blood by Automated count Low 42.0-54.0 [facility] Hemoglobin [Mass/volume] in Bloodon 07-01-2024 Hemoglobin (Bld) [Mass/Vol] Hemoglobin [Mass/volume] in Blood Low 14.0-18.0 [facility] Laboratory - Hematology and Cell countson 07-01-2024 Immature granulocytes/100 WBC (Bld) 0.2 % 0.0-0.5 [facility] Leukocytes [#/volume] correc yuniel for nucleated erythrocytes in Blood by Automated counon 07-01-2024 WBC corrected for nucl RBC Auto (Bld) [#/Vol] Leukocytes [#/volume] corrected for nucleated erythrocytes in Blood by Automated coun 4.0-11.0 [facility] Lymphocytes Auto (Bld) [#/Vo l]on 07-01-2024 Lymphocytes (Bld) [#/Vol] Lymphocytes [#/volume] in Blood by Automated count 1.2-3.8 [facility] Lymphocytes/100 WBC Auto (Bl d)on 07-01-2024 Lymphocytes/100 WBC (Bld) Lymphocytes/10 0 leukocytes in Blood by Automated count 20.5-60.0 [facility] MCH Auto (RBC) [Entitic mass ]on 07-01-2024 MCH (RBC) [Entitic mass] MCH [Entitic ma ss] by Automated count 25.9-34.0 [facility] MCHC Auto (RBC) [Mass/Vol]on 07-01-2024 MCHC (RBC) [Mass/Vol] MCHC [Mass/volume] by Automated count 29.9-35.2 [facility] MCV Auto (RBC) [Entitic vol] on 07-01-2024 MCV (RBC) [Entitic vol] MCV [Entitic vol ume] by Automated count High 80.0-94.0 [facility] Monocytes Auto (Bld) [#/Vol] on 07-01-2024 Monocytes (Bld) [#/Vol] Automated blood monocyte count 0.3-0.8 [facility] Monocytes/100 WBC Auto (Bld) on 07-01-2024 Monocytes/100 WBC (Bld) Automated monocyte % 1. 7-12.0 [facility] Neutrophils Auto (Bld) [#/Vo l]on 07-01-2024 Neutrophils (Bld) [#/Vol] Neutrophils [#/volume] in Blood by Automated count High 1.4-6.5 [facility] Neutrophils/100 WBC Auto (Bl d)on 07-01-2024 Neutrophils/100 WBC (Bld) Automated neut rophil % 43.0-75.0 [facility] No Panel Informationon 07-01 Eosinophils # (Auto) 0.1 10 3/uL 0.0-0.7 [place] Immature Granulocyte # (Auto) 0.02 10 3/uL 0.00-0.03 [facility] Platelet mean volume Auto (B ld) [Entitic vol]on 07-01-2024 Platelet mean volume (Bld) [Entitic vol] Platelet mean volume [Entitic volume] in Blood by Automated count Low 9.5-13.5 [facility] Platelets Auto (Bld) [#/Vol] on 07-01-2024 Platelets (Bld) [#/Vol] Platelets [#/vol ume] in Blood by Automated count 150-450 [facility] RBC Auto (Bld) [#/Vol]on RBC (Bld) [#/Vol] Erythrocytes [#/volume] in Blood by Automated count Low 4.70-6.10 [facility] XR RIBS 2 VIEWS LEFT [...] Electronically Signed Tereso Kauffman M.D. 2024-05-17 12:47:15 [facility] Radiology Study observation (narrative) [facility] XR Ribs Views and Chest PAOr dered By: Elizabeth Kauffman on 05-17-2024 [facility] Work Phone: Hemoglobin [Mass/volume] in Bloodon 03-11-2024 Hemoglobin (Bld) [Mass/Vol] 13.7 g/dL Low 14.0-18. 0 [facility] QuantiFERON TB Goldon 2023 QFTB Criteria Normal . [facility] Comment on above: Result [...] TB Ag Value 0.02 Normal . [facility] Comment on above: Performed By: #### Q UANT TB ####[facility] , Quant TB Gold Plus Negative Normal Negative [facility] Comment on above: Result [...] interferon gamma. Chemiluminescence immunoassay methodology Performed at: [facility] [address] [id number] Plant Anatomist: Krunal Nichols PhD, Phone: [phone] PERFORMED BY: [address] [address] PATHOLOGIST INSPECTOR QUALITY ASSURANCE ADELFO RAMIREZ M.D. Performed By: #### Q UANT TB ####[facility] , Quant TB2 Ag Value 0.02 Normal . [facility] Comment on above: Performed By: #### Q UANT TB ####[facility] , Quantiferon Nil Value 0.02 Normal . [facility] Comment on above: Performed By: #### Q UANT TB ####[facility] , Quantiferon TB Mitogen >10.00 Normal . [facility] Comment on above: Performed By: #### Q UANT TB ####[facility] , Glucose mean value [Mass/vol ume] in Blood Estimated from glycated hemoglobinon 12-29-2023 Average glucose Estimated from glycated hemoglobin (Bld) [Mass/Vol] 134 mg/dL [facility] Laboratory - Hematology and Cell countson 12-29-2023 HbA1c (Bld) [Mass fraction] 6.3 % 4.5-6.2 [facility] Comment on above: ADA RECOMMENDED LIMI T 4.0 - 6.0ADA THERAPEUTIC TARGET < 7.0ACTION SUGGESTED> 7.0 XR knee BI 2Von 12-09-2023 XR knee BI 2V [facility] [place] [address] XRay Report Signed Patient: Mariano Gutierrez MR#: [id number] : 1950 Acct:[id number] Age/Sex: 73 / M ADM Date: 12/09/23 Loc: ICXD Room: Type: [facility] Attending Dr: Carlos Guzmán MD Copies to: Carlos Guzmán MD Ordering Provider: Carlos Guzmán MD Date of Service: 12/09/23 XR/XR hand BI 2V: HAND PAIN ([id number]) XR/XR knee BI 2V: KNEE PAIN 2 [...] Gregory Schmidt M.D.12/09/2023 4:00 PM Dictation Location: [place] [address] Transcribed By: ADELINA 12/09/23 1600 Dictated By: Gregory Schmidt DO 12/09/23 1556 Signed By: 12/09/23 1600 Normal [facility] VANESSA Antinuclear Antibodieson 11-24-2023 Antinuclear Abs, IFA Positive Critically abnormal . [facility] Comment on above: Result Comment: Nega tive <1:80 Borderline 1:80 Positive >1:80 Performed By: #### K APPA, ANCA PROF, C4, CH50, HBSAB, HBCAB, C3, HCV RX PCR, HBSAG, VANESSA ####[facility] , Homogeneous Pattern 1:640 High . [facility] Comment on above: Result Comment: ICAP nomenclature: [id number] Performed By: #### K APPA, ANCA PROF, C4, CH50, HBSAB, HBCAB, C3, HCV RX PCR, HBSAG, VANESSA ####[facility] , Note 1 Normal . [facility] Comment on above: Result Comment: Prashant huizar Potential Disease Association Homogeneous Systemic Lupus Erythematosus, Drug Induced Systemic Lupus Erythematosus, Chronic Autoimmune hepatitis, Juvenile Idiopathic Arthritis Speckled Sjogren Syndrome, Systemic Lupus Erythematosus, Subacute Cutaneous Lupus, Lupus, Congenital Heart Block, Mixed Connective Tissue Disease, Scleroderma-diffuse, Scleroderma-Autoimmune Myositis Overlap Syndrome, Systemic Lupus Irrtmxjbysthb-Ibctfdhqfiw-Znfusrqncw Myositis Overlap Syndrome, Systemic Autoimmune Rheumatic Disease, [...] Cytopenias, Linear Scleroderma, Antiphospholipid Syndrome Performed at: [facility] [address] [id number] Plant Anatomist: Krunal Nichols PhD, Phone: [phone] Performed By: #### K APPA, ANCA PROF, C4, CH50, HBSAB, HBCAB, C3, HCV RX PCR, HBSAG, VANESSA ####[facility] , ANCA Profile (ANCA+MPO+PR3)o n 11-24-2023 Antimyeloperoxidase (MPO) Abs 1.8 High 0.0-0.9 [facility] Comment on above: Performed By: #### K APPA, ANCA PROF, C4, CH50, HBSAB, HBCAB, C3, HCV RX PCR, HBSAG, VANESSA ####[facility] , Atypical pANCA <1:20 Normal Neg:<1:20 [facility] Comment on above: Result Comment: The atypical pANCA pattern has been observed in a significant percentage of patients with ulcerative colitis, primary sclerosing cholangitis and autoimmune hepatitis. Performed at: [facility] [address] [id number] Plant Anatomist: Blanca Olmedo MD, Phone: [phone] Performed at: [facility] [address] [id number] Plant Anatomist: Krunal Nichols PhD, Phone: [phone] Performed By: #### K APPA, ANCA PROF, C4, CH50, HBSAB, HBCAB, C3, HCV RX PCR, HBSAG, VANESSA ####[facility] , Cytoplasmic (C-ANCA) <1:20 Normal Neg:<1:20 [facility] Comment on above: Performed By: #### K APPA, ANCA PROF, C4, CH50, HBSAB, HBCAB, C3, HCV RX PCR, HBSAG, VANESSA ####[facility] , Perinuclear (P-ANCA) <1:20 Normal Neg:<1:20 [facility] Comment on above: Result Comment: The presence of positive fluorescence exhibiting P-ANCA or C-ANCA patterns alone is not specific for the diagnosis of Staci's Granulomatosis (WG) or microscopic polyangiitis. Decisions about treatment should not be based solely on ANCA IFA results. The International ANCA Group Consensus recommends follow up testing of positive sera with both AZ- 3 and MPO-ANCA enzyme immunoassays. As many as 5% serum samples are positive only by EIA. Ref. AM J Clin Pathol 1999;111:507-513. Performed By: #### K APPA, ANCA PROF, C4, CH50, HBSAB, HBCAB, C3, HCV RX PCR, HBSAG, VANESSA ####[facility] , Proteinase 3 (PR3) Antibodies <0.2 Normal 0.0-0.9 [facility] Comment on above: Result Comment: PERF ORMED BY: [address] [place] [address] PATHOLOGIST INSPECTOR QUALITY ASSURANCE ADELFO RAMIREZ M.D. Performed By: #### K APPA, ANCA PROF, C4, CH50, HBSAB, HBCAB, C3, HCV RX PCR, HBSAG, VANESSA ####[facility] , Alanine aminotransferase [En zymatic activity/volume] in Serum or PlasmaOrdered By: Carlos Guzmán on 11-24-2023 ALT [Catalytic activity/Vol] 11 U/L 7-52 [facility] Albumin [Mass/volume] in Ser um or PlasmaOrdered By: Carlos Guzmán on 11-24-2023 Albumin [Mass/Vol] 3.5 g/dL 2.9-4.4 [facility] Albumin [Mass/volume] in Ser um or Plasma by Bromocresol green (BCG) dye binding methoOrdered By: Carlos Guzmán on 11-24-2023 Albumin BCG dye [Mass/Vol] 3.8 g/dL 3.5-5.7 [facility] Albumin/Protein.total in 24 hour Urine by ElectrophoresisOrdered By: Carlos Guzmán on 11-24-2023 Albumin Elph (24H U) [Mass fraction] 50.7 % . [facility] Alkaline phosphatase [Enzyma tic activity/volume] in Serum or PlasmaOrdered By: Carlos Guzmán on 11-24-2023 ALP [Catalytic activity/Vol] 98 U/L 34-104 [facility] Aspartate aminotransferase [ Enzymatic activity/volume] in Serum or PlasmaOrdered By: Carlos Guzmán on 11-24-2023 AST [Catalytic activity/Vol] 15 U/L 13-39 [facility] Automated erythrocytes count in urine sediment (number/area)Ordered By: Carlos Guzmán on 11-24-2023 RBC Auto (Urine sed) [#/Area] None seen [HPF] 0-4 [facility] Automated leukocytes count i n urine sediment (number/area)Ordered By: Carlos Guzmán on 11-24-2023 WBC Auto (Urine sed) [#/Area] 0-1 [HPF] 0-4 [facility] Basophils Auto (Bld) [#/Vol] Ordered By: Carlos Guzmán on 11-24-2023 Basophils (Bld) [#/Vol] 0.1 10*3/uL 0.0-0.2 [facility] Basophils/100 WBC Auto (Bld) Ordered By: Carlos Guzmán on 11-24-2023 Basophils/100 WBC (Bld) 1.1 % . [facility] Bilirubin Test strip Ql (U)O rdered By: Carlos Guzmán on 11-24-2023 Bilirubin Ql (U) Negative Negative [facility] Bilirubin.total [Mass/volume ] in Serum or PlasmaOrdered By: Carlos Guzmán on 11-24-2023 Bilirubin [Mass/Vol] 0.6 mg/dL 0.3-1.0 [facility] C reactive protein [Mass/vol ume] in Serum or PlasmaOrdered By: Carlos Guzmán on 11-24-2023 CRP [Mass/Vol] 0.6 mg/dL 0.0-0.5 [facility] C-Reactive Proteinon 024 C-Reactive Protein 0.6 mg/dL High 0.0-0.5 [facility] Comment on above: Result Comment: PERF ORMED BY: [facility] [address] [place] [address] PATHOLOGIST INSPECTOR QUALITY ASSURANCE ADELFO RAMIREZ M.D. Performed By: #### I FE,URINE, SVETLANA SERUM, UPE RAND, SPE #### [facility] , #### ESR, ADDONUAPLUS, CRP, CBC, CMP #### [address] Calcium [Mass/volume] in Ser um or PlasmaOrdered By: Carlos Guzmán on 11-24-2023 Calcium [Mass/Vol] 9.4 mg/dL 8.6-10.3 [facility] Carbon dioxide, total [Moles /volume] in Serum or PlasmaOrdered By: Carlos Guzmán on 11-24-2023 CO2 [Moles/Vol] 28.5 mmol/L 21.0-31.0 [facility] Chloride [Moles/volume] in S lucila or PlasmaOrdered By: Carlos Guzmán on 11-24-2023 Chloride [Moles/Vol] 99 mmol/L 98-107 [facility] Color Auto (U)Ordered By: Elvia mcnamara Arielle on 11-24-2023 Color (U) Yellow Yellow [facility] Complement C3on 11-24-2023 Complement C3 135 mg/dL Normal 82-167 [facility] Comment on above: Result Comment: Perf ormed at: [address] [id number] Plant Anatomist: Krunal Nichols PhD, Phone: [phone] Performed By: #### K APPA, ANCA PROF, C4, CH50, HBSAB, HBCAB, C3, HCV RX PCR, HBSAG, VANESSA ####[facility] , Complement C4on 11-24-2023 Complement C4 10 mg/dL Low 12-38 [facility] Comment on above: Performed By: #### K APPA, ANCA PROF, C4, CH50, HBSAB, HBCAB, C3, HCV RX PCR, HBSAG, VANESSA ####[facility] , Complement Total (CH50)on Complement Total (CH50) 51 Normal >41 [facility] Comment on above: Result [...] determine out of range values. Performed at: [address] [id number] Plant Anatomist: Krunal Nichols PhD, Phone: [phone] PERFORMED BY: [facility] [address] [place] [address] PATHOLOGIST INSPECTOR QUALITY ASSURANCE ADELFO RAMIREZ M.D. Performed By: #### K APPA, ANCA PROF, C4, CH50, HBSAB, HBCAB, C3, HCV RX PCR, HBSAG, VANESSA ####[facility] , Complete Blood Count Auto Di ffon 11-24-2023 Basophils (Bld) [#/Vol] 0.1 10*3/uL Normal 0.0-0.2 [facility] Comment on above: Performed By: #### I FE,URINE, SVETLANA SERUM, UPE RAND, SPE #### [facility] , #### ESR, ADDONUAPLUS, CRP, CBC, CMP #### [address] Basophils/100 WBC (Bld) 1.1 % Normal . [facility] Comment on above: Performed By: #### I FE,URINE, SVETLANA SERUM, UPE RAND, SPE #### [facility] , #### ESR, ADDONUAPLUS, CRP, CBC, CMP #### [address] Eosinophils (Bld) [#/Vol] 0.2 10*3/uL Normal 0.0-0.45 [facility] Comment on above: Performed By: #### I FE,URINE, SVETLANA SERUM, UPE RAND, SPE #### [facility] , #### ESR, ADDONUAPLUS, CRP, CBC, CMP #### [address] Eosinophils/100 WBC (Bld) 2.0 % Normal . [facility] Comment on above: Performed By: #### I FE,URINE, SVETLANA SERUM, UPE RAND, SPE #### [facility] , #### ESR, ADDONUAPLUS, CRP, CBC, CMP #### [address] Erythrocyte distribution width (RBC) [Ratio] 15.0 % High 12.0-14.8 [facility] Comment on above: Performed By: #### I FE,URINE, SVETLANA SERUM, UPE RAND, SPE #### [facility] , #### ESR, ADDONUAPLUS, CRP, CBC, CMP #### [address] Hematocrit (Bld) [Volume fraction] 38.8 % Normal 38.8-50.0 [facility] Comment on above: Performed By: #### I FE,URINE, SVETLANA SERUM, UPE RAND, SPE #### [facility] , #### ESR, ADDONUAPLUS, CRP, CBC, CMP #### [address] Hemoglobin (Bld) [Mass/Vol] 13.3 g/dL Normal 13.0-17. 0 [facility] Comment on above: Performed By: #### I FE,URINE, SVETLANA SERUM, UPE RAND, SPE #### [facility] , #### ESR, ADDONUAPLUS, CRP, CBC, CMP #### [address] Lymphocytes (Bld) [#/Vol] 2.5 10*3/uL Normal 1.00-4.8 [facility] Comment on above: Performed By: #### I FE,URINE, SVETLANA SERUM, UPE RAND, SPE #### [facility] , #### ESR, ADDONUAPLUS, CRP, CBC, CMP #### [address] Lymphocytes/100 WBC (Bld) 28.6 % Normal . [facility] Comment on above: Performed By: #### I FE,URINE, SVETLANA SERUM, UPE RAND, SPE #### [facility] , #### ESR, ADDONUAPLUS, CRP, CBC, CMP #### [address] MCH (RBC) [Entitic mass] 30.0 pg Normal 27.5-35.2 [facility] Comment on above: Performed By: #### I FE,URINE, SVETLANA SERUM, UPE RAND, SPE #### [facility] , #### ESR, ADDONUAPLUS, CRP, CBC, CMP #### [address] [place] [address] [place] MCV (RBC) [Entitic vol] 87.1 fL Normal 83.5-101 [facility] Comment on above: Performed By: #### I FE,URINE, SVETLANA SERUM, UPE RAND, SPE #### [facility] , #### ESR, ADDONUAPLUS, CRP, CBC, CMP #### [address] Mean Corpuscular HGB Conc 34.4 g/dL Normal 32.5-35.6 [facility] Comment on above: Performed By: #### I FE,URINE, SVETLANA SERUM, UPE RAND, SPE #### [facility] , #### ESR, ADDONUAPLUS, CRP, CBC, CMP #### [address] Monocytes (Bld) [#/Vol] 0.7 10*3/uL Normal 0.0-0.8 [facility] Comment on above: Performed By: #### I FE,URINE, SVETLANA SERUM, UPE RAND, SPE #### [facility] , #### ESR, ADDONUAPLUS, CRP, CBC, CMP #### [address] Monocytes/100 WBC (Bld) 7.8 % Normal . [facility] Comment on above: Performed By: #### I FE,URINE, SVETLANA SERUM, UPE RAND, SPE #### [facility] , #### ESR, ADDONUAPLUS, CRP, CBC, CMP #### [address] Neutrophils (Bld) [#/Vol] 5.4 10*3/uL Normal 1.8-7.7 [facility] Comment on above: Performed By: #### I FE,URINE, SVETLANA SERUM, UPE RAND, SPE #### [facility] , #### ESR, ADDONUAPLUS, CRP, CBC, CMP #### [address] Neutrophils/100 WBC (Bld) 60.5 % Normal . [facility] Comment on above: Performed By: #### I FE,URINE, SVETLANA SERUM, UPE RAND, SPE #### [facility] , #### ESR, ADDONUAPLUS, CRP, CBC, CMP #### [address] NRBC% 0.0 /100{WBC} Normal 0-0.5 [facility] Comment on above: Performed By: #### I FE,URINE, SVETLANA SERUM, UPE RAND, SPE #### [facility] , #### ESR, ADDONUAPLUS, CRP, CBC, CMP #### [address] Platelet mean volume (Bld) [Entitic vol] 7.9 fL Normal 6.6-10.1 [facility] Comment on above: Performed By: #### I FE,URINE, SVETLANA SERUM, UPE RAND, SPE #### [facility] , #### ESR, ADDONUAPLUS, CRP, CBC, CMP #### [address] Platelets (Bld) [#/Vol] 369 10*3/uL Normal 150-450 [facility] Comment on above: Performed By: #### I FE,URINE, SVETLANA SERUM, UPE RAND, SPE #### [facility] , #### ESR, ADDONUAPLUS, CRP, CBC, CMP #### [address] RBC (Bld) [#/Vol] 4.45 10*6/uL Normal 3.90-5.60 [facility] Comment on above: Performed By: #### I FE,URINE, SVETLANA SERUM, UPE RAND, SPE #### [facility] , #### ESR, ADDONUAPLUS, CRP, CBC, CMP #### [address] WBC (Bld) [#/Vol] 8.9 10*3/uL Normal 4.1-10.5 [facility] Comment on above: Performed By: #### I FE,URINE, SVETLANA SERUM, UPE RAND, SPE #### [facility] , #### ESR, ADDONUAPLUS, CRP, CBC, CMP #### [address] Comprehensive Metabolic Pane eduard 11-24-2023 Albumin [Mass/Vol] 3.8 g/dL Normal 3.5-5.7 [facility] Comment on above: Performed By: #### I FE,URINE, SVETLANA SERUM, UPE RAND, SPE #### [facility] , #### ESR, ADDONUAPLUS, CRP, CBC, CMP #### [address] Albumin/Globulin [Mass ratio] 0.9 {ratio} Normal [facility] Comment on above: Performed By: #### I FE,URINE, SVETLANA SERUM, UPE RAND, SPE #### [facility] , #### ESR, ADDONUAPLUS, CRP, CBC, CMP #### [address] ALP [Catalytic activity/Vol] 98 U/L Normal 34-104 [facility] Comment on above: Performed By: #### I FE,URINE, SVETLANA SERUM, UPE RAND, SPE #### [facility] , #### ESR, ADDONUAPLUS, CRP, CBC, CMP #### [address] ALT [Catalytic activity/Vol] 11 U/L Normal 7-52 [facility] Comment on above: Performed By: #### I FE,URINE, SVETLANA SERUM, UPE RAND, SPE #### [facility] , #### ESR, ADDONUAPLUS, CRP, CBC, CMP #### [address] Anion gap [Moles/Vol] 14.8 mmol/L Normal 6.0-15.0 Th e [facility] Comment on above: Performed By: #### I FE,URINE, SVETLANA SERUM, UPE RAND, SPE #### [facility] , #### ESR, ADDONUAPLUS, CRP, CBC, CMP #### [address] AST [Catalytic activity/Vol] 15 U/L Normal 13-39 [facility] Comment on above: Performed By: #### I FE,URINE, SVETLANA SERUM, UPE RAND, SPE #### [facility] , #### ESR, ADDONUAPLUS, CRP, CBC, CMP #### [address] Bilirubin [Mass/Vol] 0.6 mg/dL Normal 0.3-1.0 [facility] Comment on above: Performed By: #### I FE,URINE, SVETLANA SERUM, UPE RAND, SPE #### [facility] , #### ESR, ADDONUAPLUS, CRP, CBC, CMP #### [address] Calcium [Mass/Vol] 9.4 mg/dL Normal 8.6-10.3 [facility] Comment on above: Performed By: #### I FE,URINE, SVETLANA SERUM, UPE RAND, SPE #### [facility] , #### ESR, ADDONUAPLUS, CRP, CBC, CMP #### [address] Chloride [Moles/Vol] 99 mmol/L Normal 98-107 [facility] Comment on above: Performed By: #### I FE,URINE, SVETLANA SERUM, UPE RAND, SPE #### [facility] , #### ESR, ADDONUAPLUS, CRP, CBC, CMP #### [address] CO2 [Moles/Vol] 28.5 mmol/L Normal 21.0-31.0 [facility] Comment on above: Performed By: #### I FE,URINE, SVETLANA SERUM, UPE RAND, SPE #### [facility] , #### ESR, ADDONUAPLUS, CRP, CBC, CMP #### [address] Creatinine [Mass/Vol] 0.73 mg/dL Normal 0.70-1.30 [facility] Comment on above: Performed By: #### I FE,URINE, SVETLANA SERUM, UPE RAND, SPE #### [facility] , #### ESR, ADDONUAPLUS, CRP, CBC, CMP #### [address] GFR/1.73 sq M.predicted MDRD (S/P/Bld) [Vol rate/Area] mL/min/{1.73_m2} Normal [facility] Comment on above: Performed By: #### I FE,URINE, SVETLANA SERUM, UPE RAND, SPE #### [facility] , #### ESR, ADDONUAPLUS, CRP, CBC, CMP #### [address] Globulin (S) [Mass/Vol] 4.4 g/dL High 2.2-3.9 T he [facility] Comment on above: Performed By: #### I FE,URINE, SVETLANA SERUM, UPE RAND, SPE #### [facility] , #### ESR, ADDONUAPLUS, CRP, CBC, CMP #### [address] Glucose [Mass/Vol] 105 mg/dL High 70-100 [facility] Comment on above: Result Comment: [facility] Glucose Reference Range is dependent on time and content of last meal. Glucose of more than 200 mg/dL in a nonstressed, ambulatory subject supports the diagnosis of Diabetes Mellitus. ADA recommended reference range Performed By: #### I FE,URINE, SVETLANA SERUM, UPE RAND, SPE #### [facility] , #### ESR, ADDONUAPLUS, CRP, CBC, CMP #### [address] Potassium [Moles/Vol] 4.3 mmol/L Normal 3.5-5.1 [facility] Comment on above: Performed By: #### I FE,URINE, SVETLANA SERUM, UPE RAND, SPE #### [facility] , #### ESR, ADDONUAPLUS, CRP, CBC, CMP #### [address] Protein [Mass/Vol] 8.2 g/dL Normal 6.4-8.9 [facility] Comment on above: Performed By: #### I FE,URINE, SVETLANA SERUM, UPE RAND, SPE #### [facility] , #### ESR, ADDONUAPLUS, CRP, CBC, CMP #### [place] [address] [place] Sodium [Moles/Vol] 138 mmol/L Normal 136-145 [facility] Comment on above: Performed By: #### I FE,URINE, SVETLANA SERUM, UPE RAND, SPE #### [facility] , #### ESR, ADDONUAPLUS, CRP, CBC, CMP #### [place] [address] [place] Urea nitrogen [Mass/Vol] 15 mg/dL Normal 7-25 [facility] Comment on above: Performed By: #### I FE,URINE, SVETLANA SERUM, UPE RAND, SPE #### [facility] , #### ESR, ADDONUAPLUS, CRP, CBC, CMP #### [place] [address] [place] Creatinine [Mass/volume] in Serum or PlasmaOrdered By: Carlos Guzmán on 11-24-2023 Creatinine [Mass/Vol] 0.73 mg/dL 0.70-1.30 [place] Dipstick and Microscopicon 0 11-24-2023 Appearance (U) Clear Normal Clear [facility] Comment on above: Order Comment: Name Collection Type:: Clean-Voided Midstream Performed By: #### I FE,URINE, SVETLANA SERUM, UPE RAND, SPE #### [facility] , #### ESR, ADDONUAPLUS, CRP, CBC, CMP #### [facility] [address] [place] [address] [place] Bacteria,Urine None Seen Normal None Seen [facility] Comment on above: Order Comment: Name Collection Type:: Clean-Voided Midstream Performed By: #### I FE,URINE, SVETLANA SERUM, UPE RAND, SPE #### [facility] , #### ESR, ADDONUAPLUS, CRP, CBC, CMP #### [facility] [address] [place] [address] Bilirubin,Urine Negative Normal Negative [facility] Comment on above: Order Comment: Name Collection Type:: Clean-Voided Midstream Performed By: #### I FE,URINE, SVETLANA SERUM, UPE RAND, SPE #### [facility] , #### ESR, ADDONUAPLUS, CRP, CBC, CMP #### [facility] [address] [place] [address] [place] Color (U) Yellow Normal Yellow [facility] Comment on above: Order Comment: Name Collection Type:: Clean-Voided Midstream Performed By: #### I FE,URINE, SVETLANA SERUM, UPE RAND, SPE #### [facility] , #### ESR, ADDONUAPLUS, CRP, CBC, CMP #### [facility] [address] [place] [address] Glucose Ql (U) >=1000 High Normal [facility] Comment on above: Order Comment: Name Collection Type:: Clean-Voided Midstream Performed By: #### I FE,URINE, SVETLANA SERUM, UPE RAND, SPE #### [facility] , #### ESR, ADDONUAPLUS, CRP, CBC, CMP #### [address] Hyaline Casts,Urine 0-8 Normal 0-8 [facility] Comment on above: Order Comment: Name Collection Type:: Clean-Voided Midstream Result Comment: PERF ORMED BY: [place] [id number] PATHOLOGIST INSPECTOR QUALITY ASSURANCE ADELFO RAMIREZ M.D. Performed By: #### I FE,URINE, SVETLANA SERUM, UPE RAND, SPE #### [facility] , #### ESR, ADDONUAPLUS, CRP, CBC, CMP #### [address] Ketones Ql (U) Trace High Negative [facility] Comment on above: Order Comment: Name Collection Type:: Clean-Voided Midstream Performed By: #### I FE,URINE, SVETLANA SERUM, UPE RAND, SPE #### [facility] , #### ESR, ADDONUAPLUS, CRP, CBC, CMP #### [address] Leukocyte esterase Test strip Ql (U) Negative Normal Negative [facility] Comment on above: Order Comment: Name Collection Type:: Clean-Voided Midstream Performed By: #### I FE,URINE, SVETLANA SERUM, UPE RAND, SPE #### [facility] , #### ESR, ADDONUAPLUS, CRP, CBC, CMP #### [address] Nitrite,Urine Negative Normal Negative [facility] Comment on above: Order Comment: Name Collection Type:: Clean-Voided Midstream Performed By: #### I FE,URINE, SVETLANA SERUM, UPE RAND, SPE #### [facility] , #### ESR, ADDONUAPLUS, CRP, CBC, CMP #### [address] Occult Blood,Urine Negative Normal Negative [facility] Comment on above: Order Comment: Name Collection Type:: Clean-Voided Midstream Performed By: #### I FE,URINE, SVETLANA SERUM, UPE RAND, SPE #### [facility] , #### ESR, ADDONUAPLUS, CRP, CBC, CMP #### [address] pH (U) 5.0 [pH] Normal 5.0-9.0 [facility] Comment on above: Order Comment: Name Collection Type:: Clean-Voided Midstream Performed By: #### I FE,URINE, SVETLANA SERUM, UPE RAND, SPE #### [facility] , #### ESR, ADDONUAPLUS, CRP, CBC, CMP #### [address] Protein (U) [Mass/Vol] 30 mg/dL High Negative [facility] Comment on above: Order Comment: Name Collection Type:: Clean-Voided Midstream Performed By: #### I FE,URINE, SVETLANA SERUM, UPE RAND, SPE #### [facility] , #### ESR, ADDONUAPLUS, CRP, CBC, CMP #### [address] RBC,Urine None Seen Normal 0-4 [facility] Comment on above: Order Comment: Name Collection Type:: Clean-Voided Midstream Performed By: #### I FE,URINE, SVETLANA SERUM, UPE RAND, SPE #### [facility] , #### ESR, ADDONUAPLUS, CRP, CBC, CMP #### [address] Specificy [place],Urine 1.039 High 1.00 1-1.03 0 [facility] Comment on above: Order Comment: Name Collection Type:: Clean-Voided Midstream Performed By: #### I FE,URINE, SVETLANA SERUM, UPE RAND, SPE #### [facility] , #### ESR, ADDONUAPLUS, CRP, CBC, CMP #### [address] Squamous Epithelial Cell,Urine None Seen Normal 0-2 [facility] Comment on above: Order Comment: Name Collection Type:: Clean-Voided Midstream Performed By: #### I FE,URINE, SVETLANA SERUM, UPE RAND, SPE #### [facility] , #### ESR, ADDONUAPLUS, CRP, CBC, CMP #### [address] Urobilinogen,Urine Normal Normal Normal [facility] Comment on above: Order Comment: Name Collection Type:: Clean-Voided Midstream Performed By: #### I FE,URINE, SVETLANA SERUM, UPE RAND, SPE #### [facility] , #### ESR, ADDONUAPLUS, CRP, CBC, CMP #### [address] WBC LM.HPF (Urine sed) [#/Area] 0 /[HPF] Normal 0-4 [facility] Comment on above: Order Comment: Name Collection Type:: Clean-Voided Midstream Performed By: #### I FE,URINE, SVETLANA SERUM, UPE RAND, SPE #### [facility] , #### ESR, ADDONUAPLUS, CRP, CBC, CMP #### [address] Eosinophils Auto (Bld) [#/Vo l]Ordered By: Carlos Guzmán on 11-24-2023 Eosinophils (Bld) [#/Vol] 0.2 10*3/uL 0.0-0.45 [facility] Eosinophils/100 WBC Auto (Bl d)Ordered By: Carlos Guzmán on 11-24-2023 Eosinophils/100 WBC (Bld) 2.0 % . [facility] Erythrocyte Sedimentation Ra bibiana 11-24-2023 ESR (Bld) [Velocity] 72 mm/h High 0-19 [facility] Comment on above: Result Comment: PERF ORMED BY: [facility] [address] [place] [address] PATHOLOGIST INSPECTOR QUALITY ASSURANCE ADELFO RAMIREZ M.D. Performed By: #### I FE,URINE, SVETLANA SERUM, UPE RAND, SPE #### [facility] , #### ESR, ADDONUAPLUS, CRP, CBC, CMP #### [facility] [address] Erythrocyte distribution wid th Auto (RBC) [Ratio]Ordered By: Carlos Guzmán on 11-24-2023 Erythrocyte distribution width (RBC) [Ratio] 15.0 % 12.0-14.8 [facility] Erythrocyte sedimentation ra te by Photometric methodOrdered By: Carlos Guzmán on 11-24-2023 ESR Photometric method (Bld) [Velocity] 72 mm/hr 0-19 [facility] Free K+L LT Chains, Qn, Son 11-24-2023 Free [place] Light Chains, S 127.8 mg/L High 3.3-19.4 [facility] Comment on above: Performed By: #### K APPA, ANCA PROF, C4, CH50, HBSAB, HBCAB, C3, HCV RX PCR, HBSAG, VANESSA ####[facility] , Free Lambda Light Chains, S 171.2 mg/L High 5.7-26.3 [facility] Comment on above: Performed By: #### K APPA, ANCA PROF, C4, CH50, HBSAB, HBCAB, C3, HCV RX PCR, HBSAG, VANESSA ####[facility] , [place]/Lambda Ratio, S 0.75 Normal 0.26-1.65 [facility] Comment on above: Result Comment: Perf ormed at: - [facility] [address] [id number] Plant Anatomist: Krunal Nichols PhD, Phone: [phone] Performed By: #### K APPA, ANCA PROF, C4, CH50, HBSAB, HBCAB, C3, HCV RX PCR, HBSAG, VANESSA ####[facility] , Gamma globulin/Protein.total in 24 hour Urine by ElectrophoresisOrdered By: Carlos Guzmán on 11-24-2023 Gamma globulin Elph (24H U) [Mass fraction] 20.1 % . [facility] Glucose [Mass/volume] in Ser um or PlasmaOrdered By: Carlos Guzmán on 11-24-2023 Glucose [Mass/Vol] 105 mg/dL 70-100 [facility] Comment on above: ADA recommended refe rence rangeRandom Glucose Reference Range is dependent on time and content of last meal. Glucose of more than 200 mg/dL in a nonstressed, ambulatory subject supports the diagnosis of Diabetes Mellitus. Hematocrit Auto (Bld) [Volum e fraction]Ordered By: Carlos Guzmán on 11-24-2023 Hematocrit (Bld) [Volume fraction] 38.8 % 38.8-50.0 [facility] Hemoglobin [Mass/volume] in BloodOrdered By: Carlos Guzmán on 11-24-2023 Hemoglobin (Bld) [Mass/Vol] 13.3 g/dL 13.0-17. 0 [facility] Hep C Ab wRfx to Qnt PCRon 0 11-24-2023 Hepatitis C Virus Antibody Non-Reactive Normal N on Reactive [facility] Comment on above: Performed By: #### K APPA, ANCA PROF, C4, CH50, HBSAB, HBCAB, C3, HCV RX PCR, HBSAG, VANESSA ####[facility] , Interpretation Hepatitis C Normal . [facility] Comment on above: Result [...] B Core Antibody Negative Normal Negative [facility] Comment on above: Result Comment: Perf ormed at: - [facility] [address] [id number] Plant Anatomist: Krunal Nichols PhD, Phone: [phone] Performed By: #### K APPA, ANCA PROF, C4, CH50, HBSAB, HBCAB, C3, HCV RX PCR, HBSAG, VANESSA ####[facility] , Hepatitis B Surface Antibody on 11-24-2023 Hepatitis B Surface Antibody Non-Reactive Normal . [facility] Comment on above: Result Comment: Non Reactive: Inconsistent with immunity, less than 10 mIU/mL Reactive: Consistent with immunity, greater than 9.9 mIU/mL Performed By: #### K APPA, ANCA PROF, C4, CH50, HBSAB, HBCAB, C3, HCV RX PCR, HBSAG, VANESSA ####[facility] , Hepatitis B Surface Antigeno n 11-24-2023 HBsAg Screen Negative Normal Negative [facility] Comment on above: Result Comment: PERF ORMED BY: [address] [place] [address] PATHOLOGIST INSPECTOR QUALITY ASSURANCE ADELFO RAMIREZ M.D. Performed By: #### K APPA, ANCA PROF, C4, CH50, HBSAB, HBCAB, C3, HCV RX PCR, HBSAG, VANESSA ####[facility] , Hepatitis B virus surface Ab [Presence] in SerumOrdered By: Carlos Guzmán on 11-24-2023 HBV surface Ab Ql (S) Non-Reactive . [facility] Comment on above: Non Reactive: Incons istent with immunity, less than 10 mIU/mL Reactive: Consistent with immunity, greater than 9.9 mIU/mL Hepatitis B virus surface Ag [Presence] in Serum or Plasma by ImmunoassayOrdered By: Carlos Guzmán on 11-24-2023 HBV surface Ag IA Ql Negative Negative [facility] Hepatitis C virus IgG Ab [Pr esence] in Serum or Plasma by ImmunoassayOrdered By: Carlos Guzmán on 11-24-2023 HCV IgG IA Ql Non-Reactive Non Reactive [facility] IgA [Mass/volume] in Serum o r PlasmaOrdered By: Carlos Guzmán on 11-24-2023 IgA [Mass/Vol] 399 mg/dL 61-437 [facility] IgG [Mass/volume] in Serum o r PlasmaOrdered By: Carlos Guzmán on 11-24-2023 IgG [Mass/Vol] 2589 mg/dL 603-1613 [facility] IgM [Mass/volume] in Serum o r PlasmaOrdered By: Carlos Guzmán on 11-24-2023 IgM [Mass/Vol] 217 mg/dL 15-143 [facility] Comment on above: Performed at: [employer] [facility] [employer] [facility] [address] [id number] Director: Krunal Nichols PhD, Phone: [phone] Immunofixation for UrineOrde red By: Carlos Guzmán on 11-24-2023 Interpretation Immunofixation (U) [Interp] Comment: . [facility] Comment on above: Presence of monoclon al protein is unclear at this time. Suggestrepeat in 3 to 6 months if clinically indicated.Performed at: [facility] [address] [id number] Director: Krunal Nichols PhD, Phone: [phone] Immunofixation, (SVETLANA), Urine on 11-24-2023 Immunofixation, (SVETLANA), Urine Comment: Normal . [facility] Comment on above: Result Comment: Pres ence of monoclonal protein is unclear at this time. Suggest repeat in 3 to 6 months if clinically indicated. Performed at: [facility] [address] [id number] Plant Anatomist: Krunal Nichols PhD, Phone: [phone] Performed By: #### I FE,URINE, SVETLANA SERUM, UPE RAND, SPE ####[facility] ,#### ESR, ADDONUAPLUS, CRP, CBC, CMP ####[facility] [id number] [place] [id number] [facility] Immunofixation,Serumon 11-23 Immunofixation, Serum Normal . [facility] Comment on above: Result Comment: No m onoclonality detected. Performed By: #### I FE,URINE, SVETLANA SERUM, UPE RAND, SPE #### [facility] , #### ESR, ADDONUAPLUS, CRP, CBC, CMP #### [facility] [address] [place] [address] [place] Immunoglobulin A, Serum 399 mg/dL Normal 61-437 [facility] Comment on above: Performed By: #### I FE,URINE, SVETLANA SERUM, UPE RAND, SPE #### [facility] , #### ESR, ADDONUAPLUS, CRP, CBC, CMP #### [facility] [address] [place] [address] [place] Immunoglobulin G 2589 mg/dL High 603-1613 [facility] Comment on above: Performed By: #### I FE,URINE, SVETLANA SERUM, UPE RAND, SPE #### [facility] , #### ESR, ADDONUAPLUS, CRP, CBC, CMP #### [facility] [address] [place] [address] [place] Immunoglobulin M, Serum 217 mg/dL High 15-143 [facility] Comment on above: Result Comment: Perf ormed at: [facility] [place] [id number] Plant Anatomist: Krunal Nichols PhD, Phone: [phone] Performed By: #### I FE,URINE, SVETLANA SERUM, UPE RAND, SPE #### [facility] , #### ESR, ADDONUAPLUS, CRP, CBC, CMP #### [facility] [address] [place] [address] Immunoglobulin light chains. kappa.free [Mass/volume] in SerumOrdered By: Carlos Guzmán on 11-24-2023 Immunoglobulin light chains.kappa.free (S) [Mass/Vol] 127.8 mg/L 3.3-19.4 [facility] Immunoglobulin light chains. kappa.free/Immunoglobulin light chains.lambda.free [MassOrdered By: Carlos Guzmán on 11-24-2023 Immunoglobulin light chains.kappa.free/Immunoglo bulin light chains.lambda.free (S) [Mass ratio] 0.75 0.26-1.65 [facility] Comment on above: Performed at: [address] [id number] Director: Krunal Nichols PhD, Phone: [phone] Immunoglobulin light chains. lambda.free [Mass/volume] in Serum or PlasmaOrdered By: Carlos Guzmán on 11-24-2023 Immunoglobulin light chains.lambda.free [Mass/Vol] 171.2 mg/L 5.7-26.3 [facility] Ketones Auto test strip (U) [Mass/Vol]Ordered By: Carlos Guzmán on 11-24-2023 Ketones (U) [Mass/Vol] Trace Negative [facility] - UrinalysisOrder ed By: Carlos Guzmán on 11-24-2023 Hyaline casts LM Ql (Urine sed) 0-8 [LPF] 0-8 [facility] Leukocytes [#/volume] correc yuniel for nucleated erythrocytes in Blood by Automated counOrdered By: Carlos Guzmán on 11-24-2023 WBC corrected for nucl RBC Auto (Bld) [#/Vol] 8.9 10*3/uL 4.1-10.5 [facility] Lymphocytes Auto (Bld) [#/Vo l]Ordered By: Carlos Guzmán on 11-24-2023 Lymphocytes (Bld) [#/Vol] 2.5 10*3/uL 1.00-4.8 [facility] Lymphocytes/100 WBC Auto (Bl d)Ordered By: Carlos Guzmán on 11-24-2023 Lymphocytes/100 WBC (Bld) 28.6 % . [facility] MCH Auto (RBC) [Entitic mass ]Ordered By: Carlos Guzmán on 11-24-2023 MCH (RBC) [Entitic mass] 30.0 pg 27.5-35.2 [facility] MCHC Auto (RBC) [Mass/Vol]Or dered By: Carlos Guzmán on 11-24-2023 MCHC (RBC) [Mass/Vol] 34.4 g/dL 32.5-35.6 [place] MCV Auto (RBC) [Entitic vol] Ordered By: Carlos Guzmán on 11-24-2023 MCV (RBC) [Entitic vol] 87.1 fL 83.5-101 [facility] Monocytes Auto (Bld) [#/Vol] Ordered By: Carlos Guzmán on 11-24-2023 Monocytes (Bld) [#/Vol] 0.7 10*3/uL 0.0-0.8 [facility] Monocytes/100 WBC Auto (Bld) Ordered By: Carlos Guzmán on 11-24-2023 Monocytes/100 WBC (Bld) 7.8 % . [facility] Myeloperoxidase Ab [Units/vo lume] in Serum by ImmunoassayOrdered By: Carlos Guzmán on 11-24-2023 Myeloperoxidase Ab IA Qn (S) 1.8 units 0.0-0.9 [facility] Neutrophil cytoplasmic Ab.pe rinuclear.atypical [Titer] in Serum by ImmunofluorescenceOrdered By: Carlos Guzmán on 11-24-2023 Neutrophil cytoplasmic Ab.perinuclear.atypical IF (S) [Titer] <1:20 titer Neg:<1:20 [facility] Comment on above: The atypical pANCA p attern has been observed in asignificant percentage of patients with ulcerative colitis,primary sclerosing cholangitis and autoimmune hepatitis.Performed at: - [facility] [id number] Director: Blanca Olmedo MD, Phone: [phone] at: - [facility] [address] [id number] Director: Krunal Nichols PhD, Phone: [phone] Neutrophils Auto (Bld) [#/Vo l]Ordered By: Carlos Guzmán on 11-24-2023 Neutrophils (Bld) [#/Vol] 5.4 10*3/uL 1.8-7.7 [facility] Neutrophils/100 WBC Auto (Bl d)Ordered By: Carlos Guzmán on 11-24-2023 Neutrophils/100 WBC (Bld) 60.5 % . [facility] Nitrite Test strip Ql (U)Ord ered By: Carlos Guzmán on 11-24-2023 Nitrite Ql (U) Negative Negative [facility] No Panel InformationOrdered By: Carlos Guzmán on 11-24-2023 Anti-Nuclear Antibody Comment 2 See comment . [facility] Comment on above: Pattern Potential Di sease Association Homogeneous Systemic Lupus Erythematosus, Drug Induced Systemic Lupus Erythematosus, Chronic Autoimmune hepatitis, Juvenile Idiopathic Arthritis Speckled Sjogren Syndrome, Systemic Lupus Erythematosus, Subacute Cutaneous Lupus, Lupus, Congenital Heart Block, Mixed Connective Tissue Disease, Scleroderma-diffuse, Scleroderma-Autoimmune Myositis Overlap Syndrome, Systemic Lupus Laqwzjkjtjobl-Bvszrimqvco-Ohsaggtdto Myositis Overlap Syndrome, Systemic Autoimmune Rheumatic Disease, [...] Cytopenias, Linear Scleroderma, Antiphospholipid Syndrome Performed at: [facility] [address] [id number] Director: Krunal Nichols PhD, Phone: [phone] Estimated GFR (CKD-EPI) > 60.0 mL/Min [facility] Hepatitis B Core Total Antibody Negative Negative [facility] Comment on above: Performed at: [employer] [facility] [employer] [facility] [address] [id number] Director: Krunal Nichols PhD, Phone: [phone] Hepatitis C Interpretation See comment . [facility] Comment on above: Not infected with HC V unless early or acute infection issuspected (which may be delayed in an immunocompromisedindividual), or other evidence exists to indicate HCVinfection. Perinuclear ANCA (p-ANCA) Antibody <1:20 titer Neg:<1:20 [facility] Comment on above: The presence of posi tive fluorescence exhibiting P-ANCA orC-ANCA patterns alone is not specific for the diagnosis ofWegener's Granulomatosis (WG) or microscopic polyangiitis.Decisions about treatment should not be based solely onANCA IFA results. The International ANCA Group Consensusrecommends follow up testing of positive sera with both AZ-3 and MPO-ANCA enzyme immunoassays. As many as 5% serumsamples are positive only by EIA. Ref. AM J Clin Nmptmb8659;111:507-513. Pharmacy Creatinine Clearance (Chem N/A [facility] Protein Electrophoresis M-Michael Not observed g/dL Not Observed [facility] Protein Electrophoresis Note See comment . [facility] Comment on above: Protein electrophore sis scan will follow via computer,mail, or mill controller delivery.Performed at: [facility] [place] [id number] Director: Krunal Nichols PhD, Phone: [phone] Serum Immunofixation See comment . [place] Comment on above: No monoclonality det ected. Total Complement (CH50) 51 U/mL >41 [facility] Comment on above: Age Male [...] to determine out of range values.Performed at: [facility] [place], [place] [id number] Director: Krunal Nichols PhD, Phone: [phone] Urine Random Prot Electrophor Note See comment . [facility] Comment on above: Protein electrophore sis scan will follow via computer,mail, or mill controller delivery. Nucleated erythrocytes [Pres ence] in Blood by Automated countOrdered By: Carlos Guzmán on 11-24-2023 Nucleated RBC Auto Ql (Bld) 0.0 /100{WBC} 0-0.5 [facility] Platelet mean volume Auto (B ld) [Entitic vol]Ordered By: Carlos Guzmán on 11-24-2023 Platelet mean volume (Bld) [Entitic vol] 7.9 fL 6.6-10.1 [facility] Platelets Auto (Bld) [#/Vol] Ordered By: Cralos Guzmán on 11-24-2023 Platelets (Bld) [#/Vol] 369 10*3/uL 150-450 [facility] Potassium [Moles/volume] in Serum or PlasmaOrdered By: Carlos Guzmán on 11-24-2023 Potassium [Moles/Vol] 4.3 mmol/L 3.5-5.1 [place] Protein Auto test strip (U) [Mass/Vol]Ordered By: Carlos Guzmán on 11-24-2023 Protein (U) [Mass/Vol] 30 mg/dL Negative [facility] Protein Electro, Random Urin sheree 11-24-2023 Albumin, Urine 50.7 % Normal . [facility] Comment on above: Performed By: #### I FE,URINE, SVETLANA SERUM, UPE RAND, SPE ####[facility] ,#### ESR, ADDONUAPLUS, CRP, CBC, CMP ####[place] [id number] [facility] Ieqbb-0-Uvgspidz, Urine 1.3 % Normal . [facility] Comment on above: Performed By: #### I FE,URINE, SVETLANA SERUM, UPE RAND, SPE ####[facility] ,#### ESR, ADDONUAPLUS, CRP, CBC, CMP ####[address] Uqxxw-1-Igcmngru, Urine 9.1 % Normal . [facility] Comment on above: Performed By: #### I FE,URINE, SVETLANA SERUM, UPE RAND, SPE ####[facility] ,#### ESR, ADDONUAPLUS, CRP, CBC, CMP ####[place] [id number] [facility] Beta Globulin, Urine 18.7 % Normal . [facility] Comment on above: Performed By: #### I FE,URINE, SVETLANA SERUM, UPE RAND, SPE ####[facility] ,#### ESR, ADDONUAPLUS, CRP, CBC, CMP ####[place] [id number] [facility] Gamma Globulin, Urine 20.1 % Normal . [facility] Comment on above: Performed By: #### I FE,URINE, SVETLANA SERUM, UPE RAND, SPE ####[facility] ,#### ESR, ADDONUAPLUS, CRP, CBC, CMP ####[address] M-Michael % Not Observed Normal Not Observed [facility] Comment on above: Performed By: #### I FE,URINE, SVETLANA SERUM, UPE RAND, SPE ####[facility] ,#### ESR, ADDONUAPLUS, CRP, CBC, CMP ####[address] Please Note: Normal . [facility] Comment on above: Result Comment: Prot ein electrophoresis scan will follow via computer, mail, or mill controller delivery. PERFORMED BY: [facility] [address] [place] [address] PATHOLOGIST INSPECTOR QUALITY ASSURANCE ADELFO RAMIREZ M.D. Performed By: #### I FE,URINE, SVETLANA SERUM, UPE RAND, SPE ####[facility] ,#### ESR, ADDONUAPLUS, CRP, CBC, CMP ####[address] Protein (U) [Mass/Vol] 40.0 mg/dL Normal Not Estab. Th e [facility] Comment on above: Performed By: #### I FE,URINE, SVETLANA SERUM, UPE RAND, SPE ####[facility] ,#### ESR, ADDONUAPLUS, CRP, CBC, CMP ####[address] Protein Electrophoresis, Ser umon 11-24-2023 Albumin [Mass/Vol] 3.5 g/dL Normal 2.9-4.4 [facility] Comment on above: Performed By: #### I FE,URINE, SVETLANA SERUM, UPE RAND, SPE #### [facility] , #### ESR, ADDONUAPLUS, CRP, CBC, CMP #### [address] Albumin/Globulin [Mass ratio] 0.8 {ratio} Normal 0.7-1.7 [facility] Comment on above: Performed By: #### I FE,URINE, SVETLANA SERUM, UPE RAND, SPE #### [facility] , #### ESR, ADDONUAPLUS, CRP, CBC, CMP #### [address] Xxaop-3-Kngveuxt 0.2 g/dL Normal 0.0-0.4 [facility] Comment on above: Performed By: #### I FE,URINE, SVETLANA SERUM, UPE RAND, SPE #### [facility] , #### ESR, ADDONUAPLUS, CRP, CBC, CMP #### [address] Brwds-0-Xppixihw 1.0 g/dL Normal 0.4-1.0 [facility] Comment on above: Performed By: #### I FE,URINE, SVETLANA SERUM, UPE RAND, SPE #### [facility] , #### ESR, ADDONUAPLUS, CRP, CBC, CMP #### [address] Beta Globulin 1.0 g/dL Normal 0.7-1.3 [facility] Comment on above: Performed By: #### I FE,URINE, SVETLANA SERUM, UPE RAND, SPE #### [facility] , #### ESR, ADDONUAPLUS, CRP, CBC, CMP #### [address] Gamma Globulin 2.2 g/dL High 0.4-1.8 [facility] Comment on above: Performed By: #### I FE,URINE, SVETLANA SERUM, UPE RAND, SPE #### [facility] , #### ESR, ADDONUAPLUS, CRP, CBC, CMP #### [address] M-Michael Not Observed Normal Not Observed [facility] Comment on above: Performed By: #### I FE,URINE, SVETLANA SERUM, UPE RAND, SPE #### [facility] , #### ESR, ADDONUAPLUS, CRP, CBC, CMP #### [address] Protein [Mass/Vol] 7.9 g/dL Normal 6.0-8.5 [facility] Comment on above: Performed By: #### I FE,URINE, SVETLANA SERUM, UPE RAND, SPE #### [facility] , #### ESR, ADDONUAPLUS, CRP, CBC, CMP #### [facility] [address] [place] [address] SPE-Note Normal . [facility] Comment on above: Result Comment: Prot ein electrophoresis scan will follow via computer, mail, or mill controller delivery. Performed at: [facility] [address] [id number] Plant Anatomist: Krunal Nichols PhD, Phone: [phone] PERFORMED BY: [place] [id number] PATHOLOGIST INSPECTOR QUALITY ASSURANCE ADELFO RAMIREZ M.D. Performed By: #### I FE,URINE, SVETLANA SERUM, UPE RAND, SPE #### [facility] , #### ESR, ADDONUAPLUS, CRP, CBC, CMP #### [address] Protein [Mass/volume] in Ser um or PlasmaOrdered By: Carlos Guzmán on 11-24-2023 Protein [Mass/Vol] 8.2 g/dL 6.4-8.9 [facility] Protein [Mass/Vol] 7.9 g/dL 6.0-8.5 [facility] Protein [Mass/volume] in Uri neOrdered By: Carlos Guzmán on 11-24-2023 Protein (U) [Mass/Vol] 40.0 mg/dL Not Estab. [facility] Protein.monoclonal/Protein.t otal in 24 hour Urine by ElectrophoresisOrdered By: Carlos Guzmán on 11-24-2023 Protein.monoclonal Elph (24H U) [Mass fraction] Not observed % Not Observed [facility] Proteinase 3 Ab [Units/volum e] in Serum by ImmunoassayOrdered By: Carlos Guzmán on 11-24-2023 Proteinase 3 Ab IA Qn (S) <0.2 units 0.0-0.9 [facility] RBC Auto (Bld) [#/Vol]Ordere d By: Carlos Guzmán on 11-24-2023 RBC (Bld) [#/Vol] 4.45 10*6/uL 3.90-5.60 [facility] Serum classic neutrophil cyt oplasmic antibody titer by immunofluorescenceOrdered By: Carlos Guzmán on 11-24-2023 Neutrophil cytoplasmic Ab.classic IF (S) [Titer] <1:20 titer Neg:<1:20 [facility] Serum globulin measurement b y calculation (mass/volume)Ordered By: Carlos Guzmán on 11-24-2023 Globulin (S) [Mass/Vol] 4.4 g/dL 2.2-3.9 [facility] Serum homogeneous pattern an tinuclear antibody (VANESSA) titerOrdered By: Carlos Guzmán on 11-24-2023 Homogenous nuclear Ab pattern (S) [Titer] 1:640 . [facility] Comment on above: ICAP nomenclature: A C-1 Serum nuclear antibody titer Ordered By: Carlos Guzmán on 11-24-2023 Nuclear Ab (S) [Titer] Positive . [facility] Comment on above: Negative <1:80 Borde rline 1:80 Positive >1:80 Serum or plasma albumin/glob ulin mass ratioOrdered By: Carlos Guzmán on 11-24-2023 Albumin/Globulin [Mass ratio] 0.9 {ratio} [facility] Albumin/Globulin [Mass ratio] 0.8 {ratio} 0.7-1.7 [facility] Serum or plasma alpha 1 glob ulin measurement by electrophoresis (mass/volume)Ordered By: Carlos Guzmán on 11-24-2023 Alpha 1 globulin Elph [Mass/Vol] 0.2 g/dL 0.0-0.4 [facility] Serum or plasma alpha 2 glob ulin measurement by electrophoresis (mass/volume)Ordered By: Carlos Guzmán on 11-24-2023 Alpha 2 globulin Elph [Mass/Vol] 1.0 g/dL 0.4-1.0 [facility] Serum or plasma anion gap de terminationOrdered By: Carlos Guzmán on 11-24-2023 Anion gap [Moles/Vol] 14.8 mmol/L 6.0-15.0 [facility] Serum or plasma beta globuli n measurement by electrophoresis (mass/volume)Ordered By: Carlos Guzmán on 11-24-2023 Beta globulin Elph [Mass/Vol] 1.0 g/dL 0.7-1.3 [facility] Serum or plasma complement C 3 measurement (mass/volume)Ordered By: Carlos Guzmán on 11-24-2023 Complement C3 [Mass/Vol] 135 mg/dL 82-167 [facility] Comment on above: Performed at: [address] [id number] Director: Krunal Nichols PhD, Phone: [phone] Serum or plasma complement C 4 measurement (mass/volume)Ordered By: Carlos Guzmán on 11-24-2023 Complement C4 [Mass/Vol] 10 mg/dL 12-38 [facility] Serum or plasma gamma globul in measurement by electrophoresis (mass/volume)Ordered By: Carlos Guzmán on 11-24-2023 Gamma globulin Elph [Mass/Vol] 2.2 g/dL 0.4-1.8 [facility] Sodium [Moles/volume] in Ser um or PlasmaOrdered By: Carlos Guzmán on 11-24-2023 Sodium [Moles/Vol] 138 mmol/L 136-145 [facility] Specific gravity Auto test s trip (U) [Rel density]Ordered By: Carlos Guzmán on 11-24-2023 Specific gravity (U) [Rel density] 1.039 1.001-1.03 0 [facility] Squamous epithelial cells de tection in urine sediment by light microscopyOrdered By: Carlos Guzmán on 11-24-2023 Epithelial cells.squamous LM Ql (Urine sed) None seen [HPF] 0-2 [facility] Urea nitrogen [Mass/volume] in Serum or PlasmaOrdered By: Carlos Guzmán on 11-24-2023 Urea nitrogen [Mass/Vol] 15 mg/dL 7-25 [facility] Urine alpha 1 globulin/total protein by electrophoresisOrdered By: Carlos Guzmán on 11-24-2023 Alpha 1 globulin Elph (U) [Mass fraction] 1.3 % . [facility] Urine alpha 2 globulin/total protein ratio by electrophoresisOrdered By: Carlos Guzmán on 11-24-2023 Alpha 2 globulin Elph (U) [Mass fraction] 9.1 % . [facility] Urine bacteria detection by automated methodOrdered By: Carlos Guzmán on 11-24-2023 Bacteria Auto Ql (U) None seen None Seen [facility] Urine beta globulin measurem ent by electrophoresis (mass/volume)Ordered By: Carlos Guzmán on 11-24-2023 Beta globulin Elph (U) [Mass/Vol] 18.7 % . [facility] Urine clarity by refractomet ry automatedOrdered By: Carlos Guzmán on 11-24-2023 Clarity Refractometry automated (U) Clear Clear [facility] Urine glucose measurement by automated test strip (mass/volume)Ordered By: Carlos Guzmán on 11-24-2023 Glucose Auto test strip (U) [Mass/Vol] >=1000 mg/dL Normal [facility] Urine hemoglobin detection b y automated test stripOrdered By: Carlos Guzmán on 11-24-2023 Hemoglobin Auto test strip Ql (U) Negative Negative [facility] Urine leukocyte esterase det ection by automated test stripOrdered By: Carlos Guzmán on 11-24-2023 Leukocyte esterase Auto test strip Ql (U) Negative Negative [facility] Urobilinogen Auto test strip (U) [Mass/Vol]Ordered By: Carlos Guzmán on 11-24-2023 Urobilinogen (U) [Mass/Vol] Normal mg/dL Normal [facility] WBC Auto (Bld) [#/Vol]Ordere d By: Carlos Guzmán on 11-24-2023 WBC (Bld) [#/Vol] 8.9 10*3/uL 4.1-10.5 [facility] pH Auto test strip (U)Ordere d By: Carlos Guzmán on 11-24-2023 pH (U) 5.0 [pH] 5.0-9.0 [facility] Basophils Auto (Bld) [#/Vol] on 10-28-2023 Basophils (Bld) [#/Vol] 0.1 10 3/uL 0.0-0.1 [facility] Basophils/100 WBC Auto (Bld) on 10-28-2023 Basophils/100 WBC (Bld) 0.7 % 0.2-2.0 [facility] Centriole Ab [Titer] in Seru m by Immunofluorescenceon 10-28-2023 Centriole Ab IF (S) [Titer] TNP . [facility] Centromere Ab [Titer] in Ser um by Immunofluorescenceon 10-28-2023 Centromere Ab IF (S) [Titer] TNP . [facility] Eosinophils/100 WBC Auto (Bl d)on 10-28-2023 Eosinophils/100 WBC (Bld) 2.2 % 0.9-7.0 [facility] Erythrocyte distribution wid th Auto (RBC) [Ratio]on 10-28-2023 Erythrocyte distribution width (RBC) [Ratio] 14.6 % 11.0-15.0 [facility] Estimated glomerular filtrat ion rate (GFR) non- Americanon 10-28-2023 GFR/1.73 sq M.predicted among non-blacks MDRD (S/P/Bld) [Vol rate/Area] mL/min/{1.73_m2} >=60 [facility] Globulin Calc (S) [Mass/Vol] on 10-28-2023 Globulin (S) [Mass/Vol] 5.8 g/dL [facility] Hematocrit Auto (Bld) [Volum e fraction]on 10-28-2023 Hematocrit (Bld) [Volume fraction] 40.0 % 42.0-54.0 [facility] Hemoglobin [Mass/volume] in Bloodon 10-28-2023 Hemoglobin (Bld) [Mass/Vol] 13.1 g/dL 14.0-18. 0 [facility] Laboratory - Chemistry and C hemistry - challengeon 10-28-2023 Albumin [Mass/Vol] 2.8 g/dL 3.4-5.0 [facility] ALP [Catalytic activity/Vol] 94 U/L 46-116 [facility] ALT [Catalytic activity/Vol] 17 U/L 16-63 [facility] AST [Catalytic activity/Vol] 23 U/L 15-37 [facility] Bilirubin [Mass/Vol] 0.6 mg/dL 0.2-1.0 [facility] Calcium [Mass/Vol] 8.8 mg/dL 8.5-10.1 [facility] Chloride [Moles/Vol] 100 mmol/L 98-107 [facility] CO2 [Moles/Vol] 28.0 mmol/L 21.0-32.0 [facility] Creatinine [Mass/Vol] 0.80 mg/dL 0.70-1.30 [place] GFR/1.73 sq M.predicted MDRD (S/P/Bld) [Vol rate/Area] mL/min/{1.73_m2} >=60 [facility] Glucose [Mass/Vol] 135 mg/dL 74-106 [facility] Potassium [Moles/Vol] 4.5 mmol/L 3.5-5.1 [place] Protein [Mass/Vol] 8.6 g/dL 6.4-8.2 [facility] Sodium [Moles/Vol] 138 mmol/L 136-145 [facility] Urate [Mass/Vol] 4.2 mg/dL 3.5-7.2 [facility] Urea nitrogen [Mass/Vol] 14.0 mg/dL 7.0-18.0 [facility] Urea nitrogen/Creatinine [Mass ratio] 17.5 mg/mg [facility] Laboratory - Hematology and Cell countson 10-28-2023 ESR (Bld) [Velocity] 62 mm/h <=20 [facility] Immature granulocytes/100 WBC (Bld) 0.1 % 0.0-0.5 [facility] Leukocytes [#/volume] correc yuniel for nucleated erythrocytes in Blood by Automated counon 10-28-2023 WBC corrected for nucl RBC Auto (Bld) [#/Vol] 7.2 10 3/uL 4.0-11.0 [facility] Lymphocytes Auto (Bld) [#/Vo l]on 10-28-2023 Lymphocytes (Bld) [#/Vol] 1.9 10 3/uL 1.2-3.8 [facility] Lymphocytes/100 WBC Auto (Bl d)on 10-28-2023 Lymphocytes/100 WBC (Bld) 26.6 % 20.5-60.0 [facility] MCH Auto (RBC) [Entitic mass ]on 10-28-2023 MCH (RBC) [Entitic mass] 30.2 pg 25.9-34.0 [facility] MCHC Auto (RBC) [Mass/Vol]on 10-28-2023 MCHC (RBC) [Mass/Vol] 32.8 g/dL 29.9-35.2 [facility] MCV Auto (RBC) [Entitic vol] on 10-28-2023 MCV (RBC) [Entitic vol] 92.2 fL 80.0-94.0 [facility] Midbody Ab [Titer] in Serum by Immunofluorescenceon 10-28-2023 Midbody Ab IF (S) [Titer] TNP . [facility] Mitotic spindle apparatus Ab [Titer] in Serum or Plasma by Immunofluorescenceon 10-28-2023 Mitotic spindle apparatus Ab IF [Titer] TNP . [facility] Monocytes Auto (Bld) [#/Vol] on 10-28-2023 Monocytes (Bld) [#/Vol] 0.8 10 3/uL 0.3-0.8 [facility] Monocytes/100 WBC Auto (Bld) on 10-28-2023 Monocytes/100 WBC (Bld) 10.4 % 1.7-12.0 [facility] Neutrophils Auto (Bld) [#/Vo l]on 10-28-2023 Neutrophils (Bld) [#/Vol] 4.3 10 3/uL 1.4-6.5 [facility] Neutrophils/100 WBC Auto (Bl d)on 10-28-2023 Neutrophils/100 WBC (Bld) 60.0 % 43.0-75.0 [facility] No Panel Informationon 10-28 Anti-Nuclear Antibody Comment 2 Comment . [facility] Comment on above: Pattern Potential Di sease Association Homogeneous Systemic Lupus Erythematosus, Drug Induced Systemic Lupus Erythematosus, Chronic Autoimmune hepatitis, Juvenile Idiopathic Arthritis Speckled Sjogren Syndrome, Systemic Lupus Erythematosus, Subacute Cutaneous Lupus, Lupus, Congenital Heart Block, Mixed Connective Tissue Disease, Scleroderma-diffuse, Scleroderma-Autoimmune Myositis Overlap Syndrome, Systemic Lupus Ishrwgphquoau-Mpkarfjcmbq-Dkmhzooowt Myositis Overlap Syndrome, Systemic Autoimmune Rheumatic Disease, [...] Cytopenias, Linear Scleroderma, Antiphospholipid Syndrome Performed at: [facility] - [facility] [address] [id number] Director: Krunal Nichols PhD, Phone: [phone] C-Reactive Protein, Quantitative <0.50 mg/dL <=0.50 [facility] Eosinophils # (Auto) 0.2 10 3/uL 0.0-0.7 [place] Immature Granulocyte # (Auto) 0.01 10 3/uL 0.00-0.03 [facility] Nuclear dots nuclear Ab prashant bhupendra [Titer] in Serum by Immunofluorescenceon 10-28-2023 Nuclear dots nuclear Ab pattern IF (S) [Titer] TNP . [facility] Nuclear membrane pores nucle ar Ab pattern [Titer] in Serum by Immunofluorescenceon 10-28-2023 Nuclear membrane pores nuclear Ab pattern IF (S) [Titer] TNP . [facility] PCNA extractable nuclear Ab [Titer] in Serum by Immunofluorescenceon 10-28-2023 PCNA extractable nuclear Ab IF (S) [Titer] TNP . [facility] Platelet mean volume Auto (B ld) [Entitic vol]on 10-28-2023 Platelet mean volume (Bld) [Entitic vol] 8.9 fL 9.5-13.5 [facility] Platelets Auto (Bld) [#/Vol] on 10-28-2023 Platelets (Bld) [#/Vol] 296 10 3/uL 150-450 [facility] RBC Auto (Bld) [#/Vol]on RBC (Bld) [#/Vol] 4.34 10 6/uL 4.70-6.10 [facility] Serum homogeneous pattern an tinuclear antibody (VANESSA) titeron 10-28-2023 Homogenous nuclear Ab pattern (S) [Titer] 1:640 . [facility] Comment on above: ICAP nomenclature: A C-1 Serum nuclear antibody titer on 10-28-2023 Nuclear Ab (S) [Titer] Positive . [facility] Comment on above: Negative <1:80 Borde rline 1:80 Positive >1:80 Serum nucleolar pattern anti nuclear antibody (VANESSA) titeron 10-28-2023 Nucleolar nuclear Ab pattern (S) [Titer] TNP . [facility] Serum or plasma albumin/glob ulin mass ratioon 10-28-2023 Albumin/Globulin [Mass ratio] 0.5 {ratio} [facility] Serum or plasma anion gap de terminationon 10-28-2023 Anion gap [Moles/Vol] 14.5 mmol/L [facility] Serum or plasma cyclic adeno sine monophosphate measurement (moles/volume)on 10-28-2023 Adenosine monophosphate.cyclic [Moles/Vol] >250 units 0-19 [facility] Comment on above: Negative <20 Weak po sitive 20 - 39 Moderate positive 40 - 59 Strong positive >59Performed at: [employer] [place], [place] [id number] Director: Krunal Nichols PhD, Phone: [phone] Serum or plasma rheumatoid f actor measurement (units/volume)on 10-28-2023 Rheumatoid factor Qn 183.9 [IU]/mL <14.0 [facility] Comment on above: Results confirmed on dilution.Performed at: [employer] [place], [place] [id number] Director: Krunal Nichols PhD, Phone: [phone] Serum speckled pattern antin uclear antibody (VANESSA) titeron 10-28-2023 Speckled nuclear Ab pattern (S) [Titer] TNP . [facility] Glucose Glucometer (BldC) [M ass/Vol]Ordered By: Erickson Nascimento on 07-04-2023 Glucose [Mass/Vol] 134 mg/dL [facility] Comment on above: Random Glucose Refer ence Range is dependent on time and content of last meal. Glucose of more than 200 mg/dL in a nonstressed, ambulatory subject supports the diagnosis of Diabetes Mellitus. Glucose Poct Glucometerson 1 09-03-2022 Glucose [Mass/Vol] 134 mg/dL Normal [facility] Comment on above: Result Comment: [facility] Glucose Reference Range is dependent on time and content of last meal. Glucose of more than 200 mg/dL in a nonstressed, ambulatory subject supports the diagnosis of Diabetes Mellitus. PERFORMED BY: [facility] [place] [id number] PATHOLOGIST INSPECTOR QUALITY ASSURANCE ADELFO RAMIREZ M.D. Performed By: #### G LOYD ####Point of Care testing, Eduard 07-04-2023 L - -------- Specimen: [id number] Received: 07/04/23 Status: RAQUEL De Oliveira Num: [id number] Spec Type: Surgical Subm Dr: Erickson Nascimento DO Tissues: A Soft Tissue/Surgical Margin-Other than Tumor,Mass,Lip or Natasha (LT ELBOW MASS) Procedures: Kristin KAUR/Zo L4 -------- Age/ Patient Sex Location Account Attending Physician -------- Mariano Gutierrez/M [place] [id number] Erickson Nascimento DO -------- SPEC NUM: [id number] RECD: 07/04/23 STATUS: RAQUEL DE OLIVEIRA NUM: [id number] DENISA: 07/04/[address]: Erickson Nascimento DO ENTERED: 07/04/23 [facility] DR: SPEC TYPE: Surgical DEPT: S ORDERED: HE, Gross/Micro L4 ORDERED: VINCENT, Gross/Micro L4 Pathological [...] tissue with a rubbery, dubois-pink cut surface. Kindergarten Aide sections are submitted in one cassette labeled A1. -------- Specimen: [id number] Received: 07/04/23 Status: RAQUEL De Oliveira Num: [id number] Spec Type: Surgical Subm Dr: Erickson Nascimento DO Tissues: A Soft Tissue/Surgical Margin-Other than Tumor,Mass,Lip or Natasha (LT ELBOW MASS) Procedures: HE, Gross/Micro L4 -------- Patient: Mariano Gutierrez [id number] (Continued) -------- Specimen: [id number] Received: 07/04/23 (Continued) Signed (signature on file) Brandy Keane MD 07/08/23 1545 -------- Specimen: [id number] Received: 07/04/23 Status: RAQUEL De Oliveira Num: [id number] Spec Type: Surgical Subm Dr: Erickson Nascimento, DO Tissues: A Soft Tissue/Surgical Margin-Other than Tumor,Mass,Lip or Natasha (LT ELBOW MASS) Procedures: Kristin KAUR/Zo L4 -------- Patient: Mariano Gutierrez [id number] (Continued) -------- Specimen: [id number] Received: 07/04/23 (Continued) Microscopic Description One H E slide reviewed. The microscopic examination confirms the diagnosis. CPT Codes 03187 -------- -------- Specimen: [id number] Received: 07/04/23 Status: RAQUEL De Oliveira Num: [id number] Spec Type: Surgical Subm Dr: Erickson Nascimento, Tissues: A Soft Tissue/Surgical Margin-Other than Tumor,Mass,Lip or Natasha (LT ELBOW MASS) Procedures: VINCENT, Gross/Micro L4 -------- Patient: Mariano Gutierrez [id number] (Continued) -------- Signed (signature on file) Brandy Keane MD 07/08/23 7086 Normal [facility] XR elbow LT 2Von 02-26-2023 XR elbow LT 2V [facility] [place] [address] XRay Report Signed Patient: Mariano Gutierrez MR#: [id number] : 1950 Acct:[id number] Age/Sex: 72 / M ADM Date: 02/26/23 Loc: [facility] Room: Type: [facility] Attending Dr: Erickson Nascimento DO Copies [...] Blount Jr., D.OJeferson02/26/2023 2:56 PM Dictation Location: [place] [address] Transcribed By: [facility] 02/26/23 4602 Dictated By: Abdirahman Blount Jr, DO 02/26/23 1458 Signed By: 02/26/23 3617 Normal [facility] GLYCOHEMOGLOBIN A1Con 03-17- 2023 ADA RECOMMENDATION SEE BELOW Normal [facility] Comment on above: Result Comment: ADA RECOMMENDED LIMIT 4.0 - 6.0 ADA THERAPEUTIC TARGET < 7.0 ACTION SUGGESTED > 7.0 Performed By: #### D ATA1C #### [facility] [address] [address] [address] Ginger Keane Glucose [Mass/Vol] 123 mg/dL Normal [facility] Comment on above: Performed By: #### D ATA1C #### [facility] [address] [address] [address] Ginger Keane HbA1c (Bld) [Mass fraction] 5.9 % Normal 4.5-6.2 [facility] Comment on above: Performed By: #### D ATA1C #### [facility] [address] [place] [address] Dr. Ginger Keane GLYCOHEMOGLOBIN A1Con 2021 ADA RECOMMENDATION SEE BELOW Normal [facility] [facility] Comment on above: Result Comment: ADA RECOMMENDED LIMIT 4.0 - 6.0 ADA THERAPEUTIC TARGET < 7.0 ACTION SUGGESTED > 7.0 Performed By: #### D ATA1C #### [facility] [address] [place] [address] Dr. Ginger Keane Glucose [Mass/Vol] 160 mg/dL Normal [facility] Comment on above: Performed By: #### D ATA1C #### [facility] [address] [place] [address] Dr. Ginegr Keane HbA1c (Bld) [Mass fraction] 7.2 % Critically high 4.5 -6.2 [facility] Comment on above: Performed By: #### D ATA1C #### [facility] [address] [place] [address] Dr. Ginger Keane MICROALBUMIN URINEon 022 Albumin, Urine 123.8 ug/mL Normal Not Estab. [facility] Comment on above: Performed By: #### M ALBLC #### [facility] [address] [place] [address] Dr. Ginger Keane CBC AUTO DIFFon 05-15-2022 BASO # 0.1 103/ul Normal 0.0-0.1 [facility] Comment on above: Performed By: #### C BC #### [facility] [address] [address] [address] Ginger Keane Basophils/100 WBC (Bld) 0.6 % Normal 0.2-2.0 [facility] Comment on above: Performed By: #### C BC #### [facility] [address] [address] [address] Ginger Keane EO # 0.2 103/ul Normal 0.0-0.7 [facility] Comment on above: Performed By: #### C BC #### [facility] [address] [place] [address] Dr. Ginger Keane Eosinophils/100 WBC (Bld) 2.9 % Normal 0.9-7.0 [facility] Comment on above: Performed By: #### C BC #### [facility] [address] [place] [address] Dr. Ginger Keane Erythrocyte distribution width (RBC) [Ratio] 12.9 % Normal 11.0-15.0 [facility] Comment on above: Performed By: #### C BC #### [facility] [address] [place] [address] Dr. Ginger Keane Hematocrit (Bld) [Volume fraction] 44.3 % Normal 42.0-54.0 [facility] Comment on above: Performed By: #### C BC #### [facility] [address] [place] [address] Dr. Ginger Keane Hemoglobin (Bld) [Mass/Vol] 15.6 g/dL Normal 14.0-18. 0 [facility] Comment on above: Performed By: #### C BC #### [facility] [address] [place] [address] Dr. Ginger Keane IG # 0.01 10e3/ul Normal 0.00-0.03 [facility] Comment on above: Performed By: #### C BC #### [facility] [address] [place] [address] Dr. Ginger Keane IG % 0.1 % Normal 0.0-0.5 [facility] Comment on above: Performed By: #### C BC #### [facility] [address] [place] [address] Dr. Ginger Keane LYMPH # 2.9 103/ul Normal 1.2-3.8 [facility] Comment on above: Performed By: #### C BC #### [facility] [address] [place] [address] Dr. Ginger Keane Lymphocytes/100 WBC (Bld) 34.1 % Normal 20.5-60.0 [facility] Comment on above: Performed By: #### C BC #### [facility] [address] [place] [address] Dr. Ginger Keane MANUAL DIFF REQ NO Normal [facility] Comment on above: Performed By: #### C BC #### [facility] [address] [place] [address] Dr. Ginger Keane MCH (RBC) [Entitic mass] 32.8 pg Normal 25.9-34.0 [facility] Comment on above: Performed By: #### C BC #### [facility] [address] [place] [address] Dr. Ginger Keane MCHC (RBC) [Mass/Vol] 35.2 g/dL Normal 29.9-35.2 [facility] Comment on above: Performed By: #### C BC #### [facility] [address] [place] [address] Dr. Ginger Keane MCV (RBC) [Entitic vol] 93.3 fL Normal 80.0-94.0 [facility] Comment on above: Performed By: #### C BC #### [facility] [address] [place] [address] Dr. Ginger Keane MONO # 0.6 103/ul Normal 0.3-0.8 [facility] Comment on above: Performed By: #### C BC #### [facility] [address] [place] [address] Dr. Ginger Keane Monocytes/100 WBC (Bld) 7.5 % Normal 1.7-12.0 [facility] Comment on above: Performed By: #### C BC #### [facility] [address] [place] [address] Dr. Ginger Keane NEUT # 4.6 103/ul Normal 1.4-6.5 [facility] Comment on above: Performed By: #### C BC #### [facility] [address] [address] [address] Ginger Keane Neutrophils/100 WBC (Bld) 54.8 % Normal 43.0-75.0 [facility] Comment on above: Performed By: #### C BC #### [facility] [address] [place] [address] Dr. Ginger Keane Platelet mean volume (Bld) [Entitic vol] 9.7 fL Normal 9.5-13.5 [facility] Comment on above: Performed By: #### C BC #### [facility] [address] [place] [address] Dr. Ginger Keane PLT 260 103/ul Normal 150-450 [facility] Comment on above: Performed By: #### C BC #### [facility] [address] [place] [address] Dr. Ginger Keane RBC 4.75 106/ul Normal 4.70-6.10 [facility] Comment on above: Performed By: #### C BC #### [facility] [address] [place] [address] Dr. Ginger Keane WBC 8.4 103/ul Normal 4.0-11.0 [facility] Comment on above: Performed By: #### C BC #### [facility] [address] [place] [address] Dr. Ginger Keane LIPID PROFILEon 05-15-2022 CHOL-HDL RATIO NORM SEE BELOW Normal [facility] Comment on above: Result Comment: 3.3 - 4.4 LOW RISK 4.4 - 7.1 AVERAGE RISK 7.1 - 11.0 MODERATE RISK >11.0 HIGH RISK Performed By: #### B MP, LIPID, ALT #### [facility] [address] [place] [address] Dr. Ginger Keane Cholesterol [Mass/Vol] 119 mg/dL Normal <=200 [facility] Comment on above: Performed By: #### B MP, LIPID, ALT #### [facility] [address] [address] [address] Ginger Keane Cholesterol in HDL [Mass/Vol] 37 mg/dL Critically low 40-60 [facility] Comment on above: Performed By: #### B MP, LIPID, ALT #### [facility] [address] [address] [address] Ginger Keane Cholesterol in LDL [Mass/Vol] 35.2 mg/dL Normal [facility] Comment on above: Performed By: #### B MP, LIPID, ALT #### [facility] [address] [address] [address] Ginger Keane Cholesterol.total/Cholester ol in HDL [Mass ratio] 3.2 {ratio} Normal [facility] Comment on above: Performed By: #### B MP, LIPID, ALT #### [facility] [address] [address] [address] Ginger Keane HDL NORMAL > or = 60 mg/dl - LO W CARDIOVASCULAR RISK <40 mg/dl - HIGH CARDIOVASCULAR RISK Normal [facility] Comment on above: Performed By: #### B MP, LIPID, ALT #### [facility] [address] [address] [address] Ginger Keane LDL CALC NORMAL SEE BELOW Normal [facility] Comment on above: Result Comment: <100 mg/dl OPTIMAL 100 - 129 mg/dl NEAR OR ABOVE OPTIMAL 130 - 159 mg/dl BORDERLINE HIGH 160 - 189 mg/dl HIGH >190 mg/dl VERY HIGH Performed By: #### B MP, LIPID, ALT #### [facility] [address] [address] [address] Ginger Keane Triglyceride [Mass/Vol] 234 mg/dL Critically high <=150 [facility] Comment on above: Performed By: #### B MP, LIPID, ALT #### [facility] [address] [address] [address] Ginger Keane VLDL CALC 46.8 mg/dL Normal [facility] Comment on above: Performed By: #### B MP, LIPID, ALT #### [facility] [address] [address] [address] Ginger Keane PROF CHEM 8 (BAS METB)on Anion gap [Moles/Vol] 13.3 mmol/L Normal [facility] Comment on above: Performed By: #### B MP, LIPID, ALT #### [facility] [address] [place] [address] Dr. Ginger Keane Calcium [Mass/Vol] 8.7 mg/dL Normal 8.5-10.1 [facility] Comment on above: Performed By: #### B MP, LIPID, ALT #### [facility] [address] [place] [address] Dr. Ginger Keane Chloride [Moles/Vol] 102 mmol/L Normal 98-107 [facility] Comment on above: Performed By: #### B MP, LIPID, ALT #### [facility] [address] [place] [address] Dr. Ginger Keane CO2 [Moles/Vol] 26.8 mmol/L Normal 21.0-32.0 [facility] Comment on above: Performed By: #### B MP, LIPID, ALT #### [facility] [address] [place] [address] Dr. Ginger Keane Creatinine [Mass/Vol] 0.92 mg/dL Normal 0.70-1.30 [facility] Comment on above: Performed By: #### B MP, LIPID, ALT #### [facility] [address] [place] [address] Dr. Ginger Keane EGFR-AF ENGLISH >60 Normal >=60 [facility] Comment on above: Performed By: #### B MP, LIPID, ALT #### [facility] [address] [place] [address] Dr. Ginger Keane EGFR-NON AF ENGLISH >60 Normal >=60 [facility] Comment on above: Performed By: #### B MP, LIPID, ALT #### [facility] [address] [place] [address] Dr. Ginger Keaen Glucose [Mass/Vol] 161 mg/dL Critically high 74-106 [facility] Comment on above: Performed By: #### B MP, LIPID, ALT #### [facility] [address] [place] [address] Dr. Ginger Keane Potassium [Moles/Vol] 4.1 mmol/L Normal 3.5-5.1 [facility] Comment on above: Performed By: #### B MP, LIPID, ALT #### [facility] [address] [place] [address] Dr. Ginger Keane Sodium [Moles/Vol] 138 mmol/L Normal 136-145 [facility] Comment on above: Performed By: #### B MP, LIPID, ALT #### [facility] [address] [place] [address] Dr. Ginger Keane Urea nitrogen [Mass/Vol] 13.0 mg/dL Normal 7.0-18.0 [facility] Comment on above: Performed By: #### B MP, LIPID, ALT #### [facility] [address] [place] [address] Dr. Ginger Keane Urea nitrogen/Creatinine [Mass ratio] 14.1 mg/mg Normal [facility] Comment on above: Performed By: #### B MP, LIPID, ALT #### [facility] [address] [place] [address] Dr. Ginger Keane [facility] 05-15-2022 ALT [Catalytic activity/Vol] 26 U/L Normal 16-63 [facility] Comment on above: Performed By: #### B MP, LIPID, ALT #### [facility] [address] [place] [address] Dr. Ginger Keane GLYCOHEMOGLOBIN A1Con 2021 ADA RECOMMENDATION SEE BELOW Normal [facility] Comment on above: Result Comment: ADA RECOMMENDED LIMIT 4.0 - 6.0 ADA THERAPEUTIC TARGET < 7.0 ACTION SUGGESTED > 7.0 Performed By: #### D ATA1C #### [facility] [address] [place] [address] Dr. Ginger Keane Glucose [Mass/Vol] 146 mg/dL Normal [facility] Comment on above: Performed By: #### D ATA1C #### [facility] [address] [place], [place] [id number] Dr. Ginger Keane HbA1c (Bld) [Mass fraction] 6.7 % Critically high 4.5 -6.2 [facility] Comment on above: Performed By: #### D ATA1C #### [facility] [address] [place] [address] Dr. Ginger Keane Vital Signs Date Time Vital Sign Value Performing Clinician Facility 10-28-2024 11:03-0500 Body height 177.8 cm [facility] 10-28-2024 11:03-0500 Body mass index (BMI) [Ratio] 29.7 kg/m2 [facility] 10-28-2024 11:03-0500 Body weight 94 kg [facility] 10-28-2024 11:03-0500 Diastolic blood pressure 77 mm[Hg] [facility] 10-28-2024 11:03-0500 Heart rate 98 /min [facility] 10-28-2024 11:03-0500 Respiratory rate 12 /min [facility] 10-28-2024 11:03-0500 Systolic blood pressure 148 mm[Hg] [facility] 09-24-2024 11:36-0500 Body height 177.8 cm [facility] 09-24-2024 11:36-0500 Body mass index (BMI) [Ratio] 29.9 kg/m2 [facility] 09-24-2024 11:36-0500 Body weight 94.85 kg [facility] 09-24-2024 11:36-0500 Diastolic blood pressure 78 mm[Hg] [facility] 09-24-2024 11:36-0500 Heart rate 88 /min [facility] 09-24-2024 11:36-0500 Respiratory rate 12 /min [facility] 09-24-2024 11:36-0500 SaO2% (BldA) [Mass fraction] 95 % [facility] 09-24-2024 11:36-0500 Systolic blood pressure 132 mm[Hg] [facility] 05-26-2024 13:28-0400 Body height 180.34 cm [facility] 05-26-2024 13:28-0400 Body mass index (BMI) [Ratio] 28.2 kg/m2 [facility] 05-26-2024 13:28-0400 Body weight 91.73 kg [facility] 05-26-2024 13:28-0400 Diastolic blood pressure 64 mm[Hg] [facility] 05-26-2024 13:28-0400 Heart rate 77 /min [facility] 05-26-2024 13:28-0400 Systolic blood pressure 122 mm[Hg] [facility] 05-17-2024 13:51-0400 Body temperature 97.81 [degF] Angeles Payan [employer] Work Phone: [facility] 05-17-2024 13:51-0400 Body weight 89.81 kg Angeles Payan [employer] Work Phone: [facility] 05-17-2024 13:51-0400 Diastolic blood pressure 80 mm[Hg] Angeles Payan [employer] Work Phone: [facility] 05-17-2024 13:51-0400 Heart rate 111 /min Angeles Payan [employer] Work Phone: [facility] Comment on above: repeat puls 96bpm apical 05-17-2024 13:51-0400 Respiratory rate 20 /min Angeles Payan [employer] Work Phone: [facility] 05-17-2024 13:51-0400 SaO2% (BldA) [Mass fraction] 94 % Angeles Payan [employer] Work Phone: [facility] 05-17-2024 13:51-0400 Systolic blood pressure 122 mm[Hg] Angeles Payan [employer] Work Phone: [facility] 12-30-2023 11:02-0400 Body height 180.34 cm DO Vernon Ball Work Phone: [facility] 12-30-2023 11:02-0400 Body mass index (BMI) [Ratio] 26.4 kg/m2 DO Vernon Ball Work Phone: [facility] 12-30-2023 11:02-0400 Body weight 85.89 kg DO Vernon Ball Work Phone: [facility] 12-30-2023 11:02-0400 Diastolic blood pressure 72 mm[Hg] DO Vernon Ball Work Phone: [facility] 12-30-2023 11:02-0400 Heart rate 93 /min DO Vernon Ball Work Phone: [facility] 12-30-2023 11:02-0400 Respiratory rate 16 /min DO Vernon Ball Work Phone: [facility] 12-30-2023 11:02-0400 Systolic blood pressure 123 mm[Hg] DO Vernon Ball Work Phone: [facility] 10-20-2023 15:23-0500 Body height 180.34 cm [facility] 10-20-2023 15:23-0500 Body mass index (BMI) [Ratio] 25.5 kg/m2 [facility] 10-20-2023 15:23-0500 Body weight 83.09 kg [facility] 10-20-2023 15:23-0500 Diastolic blood pressure 65 mm[Hg] [facility] 10-20-2023 15:23-0500 Heart rate 99 /min [facility] 10-20-2023 15:23-0500 Respiratory rate 20 /min [facility] 10-20-2023 15:23-0500 Systolic blood pressure 126 mm[Hg] [facility] 10-01-2023 10:00-0500 Body height 180.34 cm Vernon Ball Other [facility] 10-01-2023 10:00-0500 Diastolic blood pressure 70 mm[Hg] Vernon Ball Other [facility] 10-01-2023 10:00-0500 SaO2% (BldA) [Mass fraction] 90 % Vernon Ball Other [facility] [employer] Other 10-01-2023 10:00-0500 Systolic blood pressure 124 mm[Hg] Vernon Ball Other [facility] 08-29-2023 10:00-0500 Body height 180.34 cm Vernon Ball Other [facility] 08-29-2023 10:00-0500 Body mass index (BMI) [Ratio] 25.63 kg/m2 Vernon Ball Other [facility] [employer] Other 08-29-2023 10:00-0500 Body weight 83.37 kg Vernon Ball Other [facility] 08-29-2023 10:00-0500 Diastolic blood pressure 63 mm[Hg] Vernon Ball Other [facility] 08-29-2023 10:00-0500 Respiratory rate 20 /min Vernon Ball Other [facility] [employer] Other 08-29-2023 10:00-0500 SaO2% (BldA) [Mass fraction] 84 % Vernon Ball Other [facility] [employer] Other 08-29-2023 10:00-0500 Systolic blood pressure 109 mm[Hg] Vernon Ball Other [facility] 08-12-2023 11:00-0500 Body height 180.34 cm Vernon Ball Other [facility] 08-12-2023 11:00-0500 Body mass index (BMI) [Ratio] 25.55 kg/m2 Vernon Ball Other [facility] [employer] Other 08-12-2023 11:00-0500 Body weight 83.1 kg Vernon Ball Other [facility] [employer] Other 08-12-2023 11:00-0500 Body weight 83.09 kg [facility] 08-12-2023 11:00-0500 Diastolic blood pressure 88 mm[Hg] Vernon Ball Other [facility] 08-12-2023 11:00-0500 Respiratory rate 20 /min Vernon Ball Other [employer] Other 08-12-2023 11:00-0500 SaO2% (BldA) [Mass fraction] 94 % Vernon Ball Other [employer] Other 08-12-2023 11:00-0500 Systolic blood pressure 120 mm[Hg] Vernon Ball Other [facility] 07-10-2023 11:45-0500 Body height 180.34 cm Vernon Ball Other [employer] Other 07-10-2023 11:45-0500 Body mass index (BMI) [Ratio] 26.22 kg/m2 Vernon Ball Other [employer] Other 07-10-2023 11:45-0500 Body weight 85.28 kg Vernon Ball Other [employer] Other 07-10-2023 11:45-0500 Diastolic blood pressure 75 mm[Hg] Vernon Ball Other [employer] Other 07-10-2023 11:45-0500 Respiratory rate 16 /min Vernon Ball Other [employer] Other 07-10-2023 11:45-0500 Systolic blood pressure 129 mm[Hg] Vernon Ball Other [employer] Other 07-04-2023 08:03-0400 Diastolic blood pressure 93 mm[Hg] DO Vernon Ball Work Phone: [facility] 07-04-2023 08:03-0400 Heart rate 89 /min DO Vernon Ball Work Phone: [facility] 07-04-2023 08:03-0400 Respiratory rate 16 /min DO Vernon Ball Work Phone: [facility] 07-04-2023 08:03-0400 SaO2% (BldA) [Mass fraction] 93 % DO Vernon Ball Work Phone: [facility] 07-04-2023 08:03-0400 Systolic blood pressure 140 mm[Hg] DO Vernon Ball Work Phone: [facility] 07-04-2023 06:47-0400 Body height 180.34 cm DO Vernon Ball Work Phone: [facility] 07-04-2023 06:47-0400 Body temperature 98.2 [degF] DO Vernon Ball Work Phone: [facility] 07-04-2023 06:47-0400 Body weight 86.18 kg DO Vernon Ball Work Phone: [facility] 07-02-2023 13:45-0400 Body height 180.34 cm Erickson Nascimento Other [employer] [facility] [employer] Other 07-02-2023 13:45-0400 Body mass index (BMI) [Ratio] 26.5 kg/m2 Erickson Nascimento Other [employer] Other 07-02-2023 13:45-0400 Body weight 86.18 kg Erickson Nascimento Other [employer] Other 05-20-2023 10:00-0400 Body height 180.34 cm Vernon Ball Other [employer] Other 05-20-2023 10:00-0400 Body mass index (BMI) [Ratio] 26.64 kg/m2 Vernon Ball Other [employer] Other 05-20-2023 10:00-0400 Body weight 86.64 kg Vernon Ball Other [employer] Other 05-20-2023 10:00-0400 Diastolic blood pressure 74 mm[Hg] Vernon Ball Other [employer] Other 05-20-2023 10:00-0400 Respiratory rate 12 /min Vernon Ball Other [employer] Other 05-20-2023 10:00-0400 Systolic blood pressure 117 mm[Hg] Vernon Ball Other [employer] Other 02-17-2023 10:30-0400 Body height 180.34 cm Vernon Ball Other [employer] Other 02-17-2023 10:30-0400 Body mass index (BMI) [Ratio] 27.58 kg/m2 Vernon Ball Other [employer] Other 02-17-2023 10:30-0400 Body weight 89.72 kg Vernon Ball Other [employer] Other 02-17-2023 10:30-0400 Diastolic blood pressure 78 mm[Hg] Vernon Ball Other [employer] Other 02-17-2023 10:30-0400 Respiratory rate 12 /min Vernon Ball Other [employer] Other 02-17-2023 10:30-0400 Systolic blood pressure 128 mm[Hg] Vernon Ball Other [employer] Other 11-18-2022 11:30-0400 Body height 180.34 cm Vernon Ball Other [employer] Other 11-18-2022 11:30-0400 Body mass index (BMI) [Ratio] 27.42 kg/m2 Vernon Ball Other [employer] Other 11-18-2022 11:30-0400 Body weight 89.18 kg Vernon [employer] Other [employer] Other 11-18-2022 11:30-0400 Diastolic blood pressure 70 mm[Hg] Vernon [employer] Other [employer] Other 11-18-2022 11:30-0400 Respiratory rate 12 /min Vernon [employer] Other [employer] Other 11-18-2022 11:30-0400 Systolic blood pressure 122 mm[Hg] Vernon [employer] Other [employer] Other Encounters Encounter Date Encounter Type Care Provider Facility Start: 10-28-2024 End: 10-28-2024 ambulatory [facility] Work Phone: Start: 10-28-2024 End: 10-28-2024 Patient encounter procedure [facility] Physician [facility] Work Phone: Start: 09-28-2024 Non-patient / Non-visit [facility]ician [facility] Work Phone: Start: 09-24-2024 End: 09-24-2024 [facility] Work Phone: Start: 09-24-2024 End: 09-24-2024 Patient encounter procedure [facility] Physician [facility] Work Phone: Start: 08-17-2024 Non-patient / Non-visit [facility]ician [facility] Work Phone: Start: 08-03-2024 Non-patient / Non-visit [facility] Work Phone: Start: 07-15-2024 Non-patient / Non-visit [facility]ician [facility] Work Phone: Start: 07-08-2024 Non-patient / Non-visit [facility] Work Phone: Start: 07-01-2024 Non-patient / Non-visit [facility] Work Phone: Start: 05-26-2024 End: 05-26-2024 ambulatory [facility] Work Phone: Start: 05-26-2024 End: 05-26-2024 Patient encounter procedure [facility] Work Phone: Start: 05-24-2024 Patient encounter procedure [facility] Start: 05-17-2024 End: 05-17-2024 ambulatory ANGELES PAYAN Not Available Start: 05-17-2024 End: 05-17-2024 Office outpatient new 45 minutes Angeles Payan [employer] Work Phone: [facility] Comment on above: Closed fracture of m ultiple ribs of left side, initial encounter (Primary Dx); Rib pain on left side Start: 03-11-2024 Non-patient / Non-visit [facility] Work Phone: Start: 12-31-2023 End: 12-31-2023 ambulatory Carlos Arielle Facility:[facility] Start: 12-30-2023 End: 12-30-2023 ambulatory DO Vernon Ball Work Phone: [facility] Work Phone: Start: 12-30-2023 End: 12-30-2023 Patient encounter procedure DO Vernon Ball Work Phone: [facility] Work Phone: Start: 12-29-2023 Non-patient / Non-visit DO Skinny tuyet Ball Work Phone: [facility] Work Phone: Start: 12-22-2023 Non-patient / Non-visit DO Skinny tuyet Ball Work Phone: [facility] Work Phone: Start: 12-09-2023 End: 12-09-2023 ambulatory Carlos Guzmán Facility:[facility] Start: 12-09-2023 End: 12-09-2023 ambulatory DO Vernon Ball Work Phone: [facility] Work Phone: Start: 12-09-2023 End: 12-09-2023 Patient encounter procedure DO Vernon Ball Work Phone: [facility] [address] Work Phone: Start: 11-26-2023 End: 11-26-2023 amb[address] Greene [address] [facility] [employer] Other Start: 11-26-2023 Telephone encounter Vernon Greene [facility] Start: 11-24-2023 End: 11-24-2023 ambulatory Carlos Guzmán Facility:[facility] Start: 11-24-2023 End: 11-24-2023 ambulatory DO Vernon Ball Work Phone: [facility] Work Phone: Start: 11-24-2023 End: 11-24-2023 Patient encounter procedure DO Vernon Ball Work Phone: [facility] [address] Work Phone: Start: 10-28-2023 Non-patient / Non-visit DO Skinny Greene Work Phone: [facility] Work Phone: Start: 10-20-2023 End: 10-20-2023 ambulatory [facility] Work Phone: Start: 10-20-2023 End: 10-20-2023 Patient encounter procedure [facility] Work Phone: Start: 10-14-2023 Non-patient / Non-visit DO Skinny billsin Ball Work Phone: [facility] Physician [facility] Work Phone: Start: 10-07-2023 End: 10-07-2023 ambulatory Vernon Greene Other [employer] Other Start: 10-07-2023 Telephone encounter Vernon Greene [facility] Start: 10-06-2023 End: 10-06-2023 ambulatory Vernon Greene Other [employer] Other Start: 10-06-2023 Telephone encounter Vernon Greene [facility] Start: 10-01-2023 End: 10-01-2023 ambulatory Imad Asaad Other [employer] Other Start: 10-01-2023 Office outpatient vi sit 25 minutes Vernon Ball [facility] Start: 10-01-2023 Telephone encounter Imad Asaad [facility] [employer] Start: 10-01-2023 End: 10-01-2023 Patient encounter procedure [facility]- Start: 09-02-2023 End: 09-02-2023 ambulatory Vernon Greene Other [employer] Other Start: 09-02-2023 Telephone encounter Vernon Greene [facility] Start: 08-29-2023 End: 08-29-2023 ambulatory Vernon Greene Other [employer] Other Start: 08-29-2023 Office outpatient vi sit 25 minutes Vernon Ball [facility] Start: 08-29-2023 End: 08-29-2023 Patient encounter procedure [facility] Work Phone: Start: 08-12-2023 End: 08-12-2023 ambulatory Vernon Greene Other [employer] Other Start: 08-12-2023 Transitional care nicole cleary srvc 14 day discharge Vernon Greene [facility] Start: 08-12-2023 End: 08-12-2023 Patient encounter procedure [facility] Work Phone: Start: 08-06-2023 End: 08-06-2023 ambulatory Vernon Greene Other [employer] Other Start: 08-06-2023 Telephone encounter Vernon Greene [facility] Start: 08-01-2023 End: 08-01-2023 ambulatory Vernon Greene Other [employer] Other Start: 08-01-2023 Telephone encounter Vernon Greene [facility] Start: 07-30-2023 End: 07-30-2023 ambulatory Vernon Greene Other [employer] Other Start: 07-30-2023 Telephone encounter Vernon Greene [facility] Start: 07-16-2023 End: 07-16-2023 ambulatory Navneet Puga Other [employer] Other Start: 07-16-2023 Telephone encounter Navneet KANG [facility] [employer] [facility] Start: 07-13-2023 End: 07-13-2023 ambulatory Vernon Greene Other [employer] Other Start: 07-13-2023 Telephone encounter Vernon Greene [facility] Start: 07-10-2023 End: 07-10-2023 ambulatory Vernon Greene Other [employer] Other Start: 07-10-2023 Office outpatient vi sit 25 minutes Vernon Greene [facility] Start: 07-10-2023 Telephone encounter Vernon Ball [facility] Start: 07-04-2023 Telephone encounter Vernon Greene [facility] Start: 07-04-2023 End: 07-04-2023 ambulatory Erickson Nascimento Facility:[facility] Start: 07-04-2023 End: 07-04-2023 Admission to same day surgery center DO Vernon Greene Work Phone: [facility] [place] Start: 07-04-2023 End: 07-04-2023 ambulatory DO Vernon Greene Work Phone: [facility] Work Phone: Start: 07-02-2023 End: 07-02-2023 ambulatory Erickson Nascimento Other [employer] Other Start: 07-02-2023 Office outpatient vi sit 25 minutes Erickson Nascimento [facility] Start: 05-21-2023 End: 05-21-2023 ambulatory Vernon Greene Other [employer] Other Start: 05-21-2023 Telephone encounter Vernon Greene PEARL [facility] Start: 05-20-2023 End: 05-20-2023 ambulatory Vernon Greene Other [employer] Other Start: 05-20-2023 Patient encounter procedure Vernon Greene [facility] Start: 02-27-2023 End: 02-27-2023 ambulatory Erickson Nascimento Other [employer] Other Start: 02-27-2023 Telephone encounter Erickson KANG [facility] Start: 02-26-2023 End: 02-26-2023 ambulatory Erickson Nascimento Facility:[facility] Start: 02-26-2023 End: 02-26-2023 Patient encounter procedure DO Erickson Nascimento Work Phone: [facility] Start: 02-26-2023 End: 02-26-2023 ambulatory DO Erickson Nascimento Work Phone: [facility] Work Phone: Start: 02-26-2023 Office outpatient ne w 45 minutes Erickson Nascimento [facility] Start: 02-17-2023 End: 02-17-2023 ambulatory Vernon Greene Other [employer] Other Start: 02-17-2023 Office outpatient vi sit 25 minutes Vernon Ball [facility] Start: 01-09-2023 End: 01-09-2023 ambulatory Vernon Ball Other [employer] Other Start: 01-09-2023 Telephone encounter Vernon Ball [facility] Start: 12-24-2022 End: 12-24-2022 ambulatory Vernon Ball Other [employer] Other Start: 12-24-2022 Telephone encounter Vernon Ball [facility] Start: 11-26-2022 End: 11-26-2022 ambulatory Vernon Ball Other [employer] Other Start: 11-26-2022 Telephone encounter Vernon Ball [facility] Start: 11-25-2022 End: 11-26-2022 ambulatory VERNON BALL Facility:[facility] Start: 11-18-2022 End: 11-18-2022 ambulatory Vernon Ball Other [employer] Other Start: 11-18-2022 Office outpatient vi sit 25 minutes Vernon Ball [facility] Start: 11-15-2022 End: 11-16-[address] NONE LISTED REQUEST Facility:[facility] Start: 11-07-2022 End: 11-07-2022 ambulatory Vernon Ball Other [employer] Other Start: 11-07-2022 Telephone encounter Vernon Ball [facility] Start: 08-08-2022 End: 08-09-2022 ambulatory VERNON BALL Facility:[facility] Start: 05-15-2022 End: 05-16-2022 ambulatory VERNON BALL Facility:[facility] Start: 05-09-2022 End: 05-10-[address] NONE LISTED REQUEST Facility:[facility] Procedures Date Procedure Procedure Detail Performing Clinician Start: 05-17-2024 Radex ribs uni w/posteroant ch minimum 3 views Angeles Payan [employer] Work Phone: Start: 12-09-2023 Plain X-ray of bilat eral hands DO Vernon Ball Work Phone: Start: 12-09-2023 X-ray of both knees DO Vernon Greene Work Phone: Start: 07-04-2023 Open reduction of fracture with internal fixation DO Vernon Greene Work Phone: Start: 02-26-2023 Plain X-ray of left elbow DO Erickson Nascimento Work Phone: Start: 05-15-2022 PSA screening VERNON GREENE Comment on above: Performed By: #### P [facility] #### [facility] [address] [place] [address] Dr. Ginger Keane Plan of Treatment Date Care Activity Detail Author Start: 11-24-2023 Hemolytic complement CH50 level [facility] Start: 11-24-2023 Hepatitis B core antibody measurement [facility] Start: 11-24-2023 [facility] Start: 10-20-2023 Patient referral [facility] Work Phone: Start: 07-04-2023 [facility] 24 hour urine measurement [facility] Adenosine monophosph ate.cyclic [Moles/volume] in Serum or Plasma [facility] Albumin [Mass/volume ] in Serum or Plasma [facility] Albumin/Globulin ratio [facility] Complement C3 [Mass/ volume] in Serum or Plasma [facility] Complement C4 [Mass/ volume] in Serum or Plasma [facility] Comprehensive metabo lic 1999 panel - Serum or Plasma [facility] Comprehensive metabo lic 1999 panel - Serum or Plasma [facility] Electrophoresis: yrytv-1-[id number] [facility] Electrophoresis: ndtaw-0-lcyffhhy [facility] Electrophoresis: beta-globulin [facility] Electrophoresis: cristine ma globulin [facility] Globulin [Mass/volum e] in Serum [facility] Hepatitis B virus elizabeth rface Ab [Presence] in Serum [facility] Hepatitis B virus elizabeth rface Ag [Presence] in Serum or Plasma by Immunoassay [facility] Hepatitis C virus Ig G Ab [Presence] in Serum or Plasma by Immunoassay [facility] Homogenous nuclear A b pattern [Titer] in Serum [facility] IgA [Mass/volume] in Serum or Plasma [facility] IgG [Mass/volume] in Serum or Plasma [facility] IgM [Mass/volume] in Serum or Plasma [facility] Immunofixation for Urine [place] light chains.f ree [Mass/volume] in Serum [facility] [place] light chains.f ree/Lambda light chains.free [Mass Ratio] in Serum [facility] Lambda light chains. free [Mass/volume] in Serum or Plasma [facility] Measurement of monoc lonal protein concentration [facility] Microalbumin [Mass/v olume] in Urine [facility] Myeloperoxidase Ab [Units/volume] in Serum by Immunoassay [facility] Neutrophil cytoplasm ic Ab.classic [Titer] in Serum by Immunofluorescence [facility] Neutrophil cytoplasm ic Ab.perinuclear.atypical [Titer] in Serum by Immunofluorescence [facility] Nuclear Ab [Titer] in Serum [facility] P-ANCA measurement [facility] Patient Education Low back pain in adults [facility] Work Phone: Patient referral [facility] Work Phone: Protein [Mass/volume ] in Serum or Plasma [facility] Protein [Mass/volume] in Urine [facility] Proteinase 3 Ab [Uni ts/volume] in Serum by Immunoassay [facility] Rheumatoid factor [Units/volume] in Serum or Plasma [facility] Serum immunofixation [facility] XR Lumbar spine Views [facility] Immunizations Immunization Date Immunization Notes Care Provider Fa oma 05-25-2018 pneumococcal polysaccharide vaccine, 23 valent Vernon Greene Other [facility] 07-01-2017 diphtheria, tetanus toxoids and acellular pertussis vaccine, unspecified formulation Vernon Greene Other [facility] 07-01-2017 pneumococcal conjuga te vaccine, 13 valent Vernon Greene Other [facility] Payers Date Payer Category Payer Medicare ANTH MEDICARE ADVANTAGE [facility] MEDICARE ADVANTAGE [id number] 2023-Present [address] [place] [address] [id number] 1958 Medicare [id number] 1958 Self-pay 1950 Unknown [id number] 1950 Unknown [id number] 1950 Unknown [id number] [id number] 9 1950 Unknown [id number] [id number] 9 Unknown [id number] [id number] Unknown [id number] [id number] Unknown [id number] [id number] Unknown [id number] [id number] Unknown [id number] [id number] Unknown [id number] [id number] Unknown [id number] [id number] Unknown [id number] Social History Date Type Detail Facility Sex Assigned At [employer] Other Start: 1950 Sex Assigned At Male [facility] Start: 07-04-2023 End: 07-04-2023 Tobacco smoking status TXIS Ex-smoker (finding) [facility] Start: 05-17-2024 Tobacco smoking stat us NHIS Never smoked tobacco [facility] Start: 05-17-2024 Tobacco use and exposure Smokeless tobacco non-user [facility] Start: 05-17-2024 Alcoholic beverage intake Current drinker of alcohol (finding) [facility] Start: 1950 Sex assigned at Not on file [facility] Start: 09-24-2024 End: 10-28-2024 Sex Male (finding) [facility] Goals Date Patient Goal Desired Activity /State Clinical Notes 11-18-2022 to 09-24-2024 Note Date & Type Note Facility 09-24-2024 Evaluation note Diagnosis Onset Date Resolution ASHD (arteriosclerotic heart disease) acute September 24, 2024 11:26am Hypercholesterolemia acute 2024 11:26am Hypoxia acute September 24, 2024 11:26am ILD (interstitial lung disease) acute September 24, 2024 11:26am Low back pain acute September 11:26am Nicotine dependence, cigarettes, in remission acute September 24, 2024 11:26am Rheumatoid arthritis involving both hands with positive rheumatoid factor acute 2024 11:26am Type 2 diabetes mellitus with hyperglycemia acute September 24, 2024 11:26am Low back pain acute October 282024 10:50am Rheumatoid arthritis involving both hands with positive rheumatoid factor acute 2024 10:50am [facility] Work Phone: 1(724) 425-807809-16-2024 History of Present illness Narrative* Angeles Payan, ALEXUS - 05/17/2024 1:40 PM EDT HPI: Historian of HPI: patient and family [...] left w chest anteroposterior documented in [facility]Saint [facility] [id number] Evaluation note* Encounter Date Diagnosis Assessment Notes Treatment Notes Treatment Clinical Notes Oct, Interstitial lung disease (ICD-10 - J84.9) Oct, Hypoxia (ICD-10 - R09.02) Oct, Nicotine dependence, cigarettes, in remission (ICD-10 - F17.211) Age started 17 1 ppd Age quit 52 [employer] Other 01-31-2024 Evaluation note* Encounter Date Diagnosis [...] as needed. CXR, f/u from COVID infection [facility] [facility] Other 12-29-2023 Evaluation note* Encounter Date Diagnosis [...] 1 ppd Age quit 52 Continue abstinence [employer] Other [id number] Evaluation note* Encounter Date Diagnosis Assessment Notes [...] and hypoxia. MDI and oxygen for now. [facility] Other 12-01-2023 Evaluation note* Encounter Date Diagnosis Assessment Notes Treatment Notes Treatment Clinical Notes Aug, Weight loss (ICD-10 - R63.4) [facility] Other 11-09-2023 Evaluation note* Encounter Date Diagnosis [...] or bowel habits. No melena or hematochezia [facility] [facility] Other 11-01-2023 Evaluation note* Encounter Date Diagnosis [...] Jul, Elbow mass, left (ICD-10 - R22.32) [facility] Other 09-19-2023 Evaluation note* Encounter Date Diagnosis [...] PSA (prostate specific antigen) (ICD-10 - Z12.5) [facility] Other 06-28-2023 Evaluation note* Encounter Date Diagnosis [...] office today. Prior medical notes from Dr. Flwoer and history have been reviewed. Today he [...] as documented in the electronic medical record. [facility] Other 06-19-2023 Evaluation note* Encounter Date Diagnosis [...] wks. Nontender and mobile. Refer to Orthopedics [facility] Other 03-27-2023 NotePROCEDURE: XR KNEE LT 3V [...] Electronically authenticated by: VINNY MURILLO Date: 2022-11-25 10:55[facility]03-20-2023 Evaluation note* Encounter Date Diagnosis [...] PPI and if no improvement, EGD [facility] [employer] Other Evaluation noteNo InformationNortCommunity Health Systems [employer] Other Evaluation noteNo assessment information available [facility] Work Phone: Evaluation note* Diagnosis Onset Date Resolution Status Inflammatory polyarthritis a cute [facility] Work Phone: Evaluation note* Diagnosis Onset Date Resolution Status ASHD (arteriosclerotic heart disease) acute [id number] acute Hypoxia acute ILD (interstitial lung disease) acute Inflammatory polyarthritis a cute Nicotine dependence, cigarettes, in remission acute Sinus tachycardia acute [facility] Work Phone: Evaluation note* Diagnosis Onset Date [...] Type 2 diabetes mellitus with hyperglycemia acute [facility] Work Phone: Evaluation note* Diagnosis Onset [...] Type 2 diabetes mellitus with hyperglycemia acute [facility] Work Phone: Evaluation note* Diagnosis Closed [...] wit h hyperglycemia acute September 24 11:26am [facility] Work Phone: History general Narrative - [...] long-term current use of insulin Surgical History [facility] PTCA/STENT 2002 Surgical History [facility] 2006 Hospitalization History SEE SURGICAL [facility] [facility] Other [employer] general Narrative - Reported* Type Description Date [...] long-term current use of insulin Surgical History [facility] PTCA/STENT 2002 Surgical History [facility] 2006 Surgical History Excision left elbow mass Hospitalization History SEE SURGICAL [facility] Other Hospital Discharge instructions Additional Instructions Orthopedic [...] prescribed. You may take Motrin or Tylenol [id number] if you wish. Follow-up in [address] [facility] [address] [place] [id number] [phone] Work Phone: Reason for referral (narrative)* Reason *Waiting for appt Referral for recurrent left Olecranon bursa and SC nodule Diagnosis 1 Olecranon bursitis o f left elbow (M70.22) Diagnosis 2 Subcutaneous nodule (R22.9) Referral Organization [facility] [employer] berta Referring Provider First Name Vernon Referring Provider Last Name Laureen Referring Provider Specialty Internal Me dicine Referred Organization [facility] Referred Provider Erickson Nascimento Referred Address [address] [facility] [place],[address] Referred Provider Specialty Orthopedic S urgery Referral [...] 02/17/2023 11:21:37 AM >received today, sent P2P [employer] Other Reason for referral (narrative)* Reason Referral for screeni ng colonoscopy and EGD Diagnosis 1 Unexplained weight l oss (R63.4) Diagnosis 2 Epigastric discomfor t (R10.13) Diagnosis 3 Serum lipase elevati on (R74.8) Diagnosis 4 Colon cancer screeni ng (Z12.11) Referral Organization [facility] [employer] Referring Provider First Name Vernon Referring Provider Last Name Laureen Referring Provider Specialty Internal Me dicine Referred Organization [facility] Referred Provider Rochelle Woodard Referred Address [address] [place],[address] Referred Provider Specialty Gastroentero logy Referral Priority [...] be done within the next 2-3 wks. [facility] Other Summary Purpose Family History Relationship Condition [...] for Visit ASHD (arteriosclerot ic heart disease) [id number] Hypoxia ILD (interstitial lung disease) Inflammatory polyarthritis Nicotine dependence, cigarettes, in remission Sinus tachycardia Chief Complaint 4 Month Follow Up 1 week M35.9;Z11.59;Z79.899;D89.2 Hand pain Knee Pain Reason for Visit ASHD (arteriosclerot ic heart disease) [id number] Hypoxia ILD (interstitial lung disease) Inflammatory polyarthritis [...] Visit Admit Date ASHD (arteriosclerotic heart disease) [facility] 2024 11:26am Hypercholesterolemia September 24, 2024 11:26am Hypoxia September 24, 2024 1 1:26am ILD (interstitial lung disease) September 24, 2024 11:26am Nicotine dependence, cigarettes, in claudia ssion September 24, 2024 11:26am 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 September 24, 2024 11:26am Type 2 diabetes mellitus with hyperglyce [facility] September 24, 2024 11:26am Chief Complaint Admit Date 4 month f/u September 24, 2024 1 1:26am Reoccurring Back Pain October 28 10:50am Reason for Visit Admit Date ASHD (arteriosclerotic heart disease) [facility] 2024 11:26am Hypercholesterolemia September 24, 2024 11:26am Hypoxia September 24, 2024 1 1:26am ILD (interstitial lung disease) September 24, 2024 11:26am Low back pain September 24, 2024 1 1:26am Nicotine dependence, cigarettes, in claudia ssion September 24, 2024 11:26am 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 September 24, 2024 11:26am Type 2 diabetes mellitus with hyperglyce [facility] September 24, 2024 11:26am Low back pain October 28, 2024 10:50am 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 October 28, 2024 10:50am Additional Source Comments REASON FOR VISIT (unrecogniz [...] and content) DATE CREATED AUTHOR 12/02/2022 [facility] DATE CREATED AUTHOR AUTHOR'S ORGANIZ ATION 01/10/2024 [facility] DATE CREATED AUTHOR AUTHOR'S ORGANIZ ATION 05/23/2024 [facility] dical Specialists EPIC Care Teams [...] Nascimento DO Attending Provider Active Team Status: Inactive Member Role Status Dates Erickson Nascimento , DO Attending Provider Active Vernon Greene , DO Primary Care Provider Active Team Status: Inactive Member Role Status Kinga Greene DO Attending Provider Active Sta rt: August 12, 2023 End: August 12, 2023 Team Status: Inactive Member Role Status Kinga Greene DO Attending Provider Active Sta rt: August 29, 2023 End: August 29, 2023 Team Status: Inactive Member Role Status Kinga Greene DO Attending Provider Active Sta rt: [...] 2024 Team Status: Active Member Role Status Kinga Greene DO Primary Care Provider Active Start: July 01, 2024 Carlos Guzmán MD Attending Provider Active St art: July 01, 2024 Team Status: Active Member Role Status Kinga Greene DO Primary Care Provider Active Start: July 08, 2024 Carlos Guzmán MD Attending Provider Active St art: July 08, 2024 Team Status: Active Member Role Status Kinga Greene DO Primary Care Provider Active Start: July 15, 2024 Carlos Guzmán MD Attending Provider Active St art: July 15, 2024 Team Status: Active Member Role Status Kinga Greene DO Primary Care Provider Active Start: August 03, 2024 Carlos Guzmán MD Attending Provider Active St art: August 03, 2024 Team Status: Active Member Role Status Kinga Greene DO Primary Care Provider Active Start: August 17, 2024 Carlos Guzmán MD Attending Provider Active St art: August 17, 2024 Team Status: Inactive Member Role Status Kinga Greene DO Primary Care Provide r, Attending Provider Active Start: September 24, 2024 End: September 24, 2024 Team Status: Active Member Role Status Kinga Greene DO Primary Care Provider Active Start: September 28, 2024 Carlos Guzmán MD Attending Provider Active St art: September 28, 2024 Team Status: Inactive Member Role Status Dates Vernon Ball , DO Primary Care Provide r, Attending Provider Active Start: October 28, 2024 End: October 28, 2024 Goals (unrecognized section and content) Goals [...] BE BASED ON THE PRIMARY CLINICAL RECORDS. [employer] [facility]. provides no warranty or guarantee of the accuracy or completeness of information in this document.
== END 2024-11-02 12:47 | disposition home or self-care (01) ==
LOC: RAD 12:46
PROVIDERS: PCP Internal Medicine; Visit Provider Internal Medicine
DX: M85.80 Other specified disorders of bone density and structure, unspecified site (principal); M81.0 Age-related osteoporosis without current pathological fracture; Z79.52 Long term (current) use of systemic steroids
CPT/HCPCS: 77080

== ENCOUNTER 2024-11-03 15:51 | Outpatient (RCR) | payer MEDICARE, SELFPAY | END 2025-01-14 07:41 | disposition home or self-care (01) | LOC: PT 15:51 | PROVIDERS: PCP Internal Medicine; Visit Provider Internal Medicine | DX: M54.50 Low back pain, unspecified (principal); M47.816 Spondylosis without myelopathy or radiculopathy, lumbar region | CPT/HCPCS: 97012; 97110; 97112; 97140; 97162 ==

== ENCOUNTER 2024-11-04 07:07 | Outpatient (RCR) | payer MEDICARE, SELFPAY ==
--- NOTE | 2024-10-29 15:33 | CR1_ITS ---
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
== END 2024-12-07 07:10 | disposition home or self-care (01) ==
LOC: CR 07:07
PROVIDERS: PCP Internal Medicine; Visit Provider Internal Medicine
DX: J96.11 Chronic respiratory failure with hypoxia (principal); U09.9 Post COVID-19 condition, unspecified; J84.10 Pulmonary fibrosis, unspecified; M54.50 Low back pain, unspecified
CPT/HCPCS: 94625

== ENCOUNTER 2025-01-04 15:05 | Outpatient (OUT) | payer MEDICARE, SELFPAY ==
[2025-01-04 15:32] LABS: Basophils Absolute Auto 0.1 10^3/uL (0.0-0.1); Basophils Percent Auto 0.6 % (0.2-2.0); Eosinophils Absolute Auto 0.2 10^3/uL (0.0-0.7); Eosinophils Percent Auto 1.6 % (0.9-7.0); Hematocrit 41.9 % (42.0-54.0); Hemoglobin 14.5 g/dL (14.0-18.0); Immature Granulocytes Abs Auto 0.02 10^3/uL (0.00-0.03); Immature Granulocytes Pct Auto 0.2 % (0.0-0.5); Lymphocytes Absolute Auto 1.9 10^3/uL (1.2-3.8); Lymphocytes Percent Auto 19.2 % (20.5-60.0); Mean Corpuscular HGB Conc 34.6 g/dL (29.9-35.2); Mean Corpuscular Hemoglobin 32.1 pg (25.9-34.0); Mean Corpuscular Volume 92.7 fL (80.0-94.0); Mean Platelet Volume 9.7 fL (9.5-13.5); Monocytes Absolute Auto 0.8 10^3/uL (0.3-0.8); Monocytes Percent Auto 8.3 % (1.7-12.0); Neutrophils Absolute Auto 6.8 10^3/uL (1.4-6.5); Neutrophils Percent Auto 70.1 % (43.0-75.0); Platelet Count 281 10^3/uL (150-450); Red Blood Count 4.52 10^6/uL (4.70-6.10); Red Cell Distribution Width 13.6 % (11.0-15.0); White Blood Count 9.7 10^3/uL (4.0-11.0)
[2025-01-04 15:55] LABS: Erythrocyte Sedimentation Rate 30 mm/hr (<=20)
[2025-01-04 16:17] LABS: Alanine Aminotransferase 27 U/L (16-63); Albumin Globulin Ratio 0.9; Albumin Level 3.7 g/dL (3.4-5.0); Alkaline Phosphatase 77 U/L (46-116); Anion Gap 14.6; Aspartate Amino Transferase 15 U/L (15-37); BUN Creatinine Ratio 16.3; Bilirubin Total 0.7 mg/dL (0.2-1.0); Calcium 9.3 mg/dL (8.5-10.1); Carbon Dioxide 30.2 mmol/L (21.0-32.0); Chloride 100 mmol/L (98-107); Estimated GFR (African America >60 (>=60 mL/min/1.73m^2); Estimated GFR (Non-African Ame >60 (>=60 mL/min/1.73m^2); Globulin 4.2 g/dL; Glucose 181 mg/dL (74-106); Potassium 3.8 mmol/L (3.5-5.1); Sodium 141 mmol/L (136-145); Total Protein 7.9 g/dL (6.4-8.2)
== END 2025-01-04 15:06 | disposition home or self-care (01) ==
LOC: LAB 15:12
PROVIDERS: PCP Internal Medicine; Visit Provider Registered Nurse
DX: M05.79 Rheumatoid arthritis with rheumatoid factor of multiple sites without organ or systems involvement (principal); Z79.899 Other long term (current) drug therapy
CPT/HCPCS: 36415; 80053; 85025; 85652

== ENCOUNTER 2025-02-24 14:32 | Outpatient (OUT) | payer MEDICARE, SELFPAY ==
[2025-02-24 15:28] LABS: Estimated Average Glucose 143 mg/dL; Glycohemoglobin A1C 6.6 % (4.5-6.2)
== END 2025-02-24 14:33 | disposition home or self-care (01) ==
LOC: LAB 14:33
PROVIDERS: PCP Internal Medicine; Visit Provider Internal Medicine
DX: E11.65 Type 2 diabetes mellitus with hyperglycemia (principal)
CPT/HCPCS: 36415; 83036

== ENCOUNTER 2025-03-29 13:09 | Outpatient (OUT) | payer MEDICARE, SELFPAY ==
--- OUTSIDE RECORDS SUMMARY | 2024-06-08 08:08 | XMS_ITS ---
Author Organization The [facility] [place] Address [address] [place] [address] Care Team Providers Care Philosophy Lecturer Name Role Phone Vernon Greene DO Primary Care Provider Alli Sheffield Unavailable [phone] REASON FOR VISIT POC Device-[employer] Encounters Encounter Location Date Provider Diagnosis Pulmonary Medicine [place] [address] [place] [address] 06/08/2024 Alli Sims Plan Of Treatment Next Appt Details Provider Name:Alli Sims, 10/26/2025 02:00:00 PM, [address] [place], [address], Progress Notes * Mariano SPAULDINGDOB:[birth year] (73 yo M)Acc No.[id number]:06/08/2024 Patient: Mariano ROBERSON :1950 A ge:73 Y S ex:Male [address] [place] [address] * true * Date: Generated for Boni emmanuel/Araceli/eTransmitting on: 0 03/29/2025 01:14 PM EDT
--- OUTSIDE RECORDS SUMMARY | 2024-10-27 10:00 | XMS_ITS ---
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 Name Role Phone Vernon Greene DO Primary Care Provider Mitchel bowen Alicia Smishan Unavailable [phone] Allergies No Known Allergies REASON FOR VISIT 6MO-PULMONARY FIBROSIS Medications Medication SIG (Take, Route, Frequency, Duration) Notes Start Date End Date Status Atorvastatin Calcium 80 MG Oral for 90 Days Active Aspirin 81 MG 1 tablet Orally Once a day Active Albuterol Sulfate HFA 108 (90 Base) MCG/ACT INHALE 2 PUFFS BY MOUTH EVERY 6 HOURS NEEDED FOR WHEEZING OR SHORTNESS OF BREATH Inhalation for 25 Days Active Ozempic (1 MG/DOSE) 4 MG/3ML INJECT 1MG SUBCUTANEOUSLY EVERY WEEK FOR 28 DAYS Subcutaneous for 28 Days Active predniSONE 5 MG TAKE 2 TABS EACH MOR LEONARDO NEEDED FOR 1 MONTH, THEN 1 TABLET EACH MORNING NEEDED Oral for 30 Days Active metFORMIN HCl 1000 MG Oral for 90 Days Active Losartan Potassium 25 MG Oral for 90 Days Active Nitroglycerin 0.4 MG DISSOLVE 1 TABLET U NDER TONGUE NEEDED Sublingual for 90 Days Active Mycophenolate Mofetil 500 MG Oral for 30 Days Active Metoprolol Succinate ER 25 MG Oral for 90 Days Active Hydroxychloroquine Sulfate 200 MG Oral for 30 Days Active Farxiga 10 MG TAKE 1 TABLET BY ADITHYA TH EVERY DAY Oral for 90 Days Active Social History Tobacco Use: Social History Observation Description Date Details (start date - stop date) Former Smoker NA - NA Tobacco Control (Standard) Question Answer Notes Tobacco use: Former smoker How long has it been since y ou last smoked? Greater than 10 years Additional Findings: Tobacco non-user Ex -moderate cigarette smoker (10-19/day) Vital Signs Weight 208.0 lbs 10/27/2024 Height 71 in 10/27/2024 Blood pressure systolic 147 mm Hg 10/27/19 25 Blood pressure diastolic 69 mm Hg 025 Temperature 96.8 degrees Fahrenheit 10/27/19 25 Heart Rate 83 /min 10/27/2024 Respiratory Rate 20 /min 10/27/2024 BMI 29.01 kg/m2 10/27/2024 Oximetry 95 % 10/27/2024 POC 3L -Activity/Resting Encounters Encounter Location Date Provider Diagnosis Pulmonary Medicine [facility] [address] [place] [address] 10/27/2024 Alli Sims Pulmonary fibrosis, unspecified J84.10 ; Post-acute COVID-19 syndrome U09.9 ; Chronic respiratory failure with hypoxia J96.11 ; Traction bronchiectasis J47.9 ; Rheumatoid arthritis M06.9 ; DM2 (diabetes mellitus, type 2) E11.9 and History of tobacco abuse Z87.891 Assessments Encounter Date Diagnosis (ICD Code) Assessment Notes Treatment Notes Treatment Clinical Notes Section Notes 10/27/2024 Pulmonary fibrosis, unspecified (ICD-10 - J84.10) Pulmonary fibrosis noted on chest CT 08/02/2024, with clearing of GGO on repeat chest CT 10/14/2023. Fibrosis appears stable on repeat HRCT 04/20/2024 and now with 10/11/2024. Treating as the firbosis is presumptive connective tissue disease (RA vs. SLE) +/- COVID-19. PFT shows slight improvement in TLC from 62% to 75%. Discussed further monitoring. From my perspective, he has had either stability or improvement in HRCT and PFT over the past year, and I feel we could extend monitoring out to 1 year. We both agreed if his symptoms worsen, we can always repeat testing sooner; additionally, if Dr. Guzmán feels in his opinion as a quality assurance tester that 6 month F/U HRCT and PFT are recommended, we can certainly repeat them then. F/U 1 year, or sooner if needed. 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 Albuterol has no benefit which is not shocking - fibrosis is affecting the interstitial tissue while albuterol targets smooth muscle of bronchioles - albuterol does not generally help with fibrosis. 10/27/2024 Chronic respiratory failure with hypoxia (ICD-10 - J96.11) Ncxl-dy-yvid encounter performed with the patient to document continued need for supplemental oxygen (O2). -Flow & directions: 2L/min @ rest, 3-4L/min with activity-Patient voices adherence to recommended usage: Yes-Symptom control on O2: Less SOB with O2-Counseled patient not begin, restart, or continue smoking, around the O2 due to risk of fire which could result in damage to the O2 tanks & lines, smoke inhalation and flame damage to the airway, significant arzate, potential , property damage, and potential harm & to bystanders. Additionally, counseled it is not lloyd to begin, restart, or continue smoking given the underlying pulmonary disease that led to the point of requiring O2.-Recommendation s: He is doing well with his O2 at this time. Continue O2 ATC. 10/27/2024 Traction bronchiectasis (ICD-10 - J47.9) Secondary to fibrosis. Currently asymptomatic. 10/27/2024 Rheumatoid arthritis (ICD-10 - M06.9) F/U with Dr. Guzmán. 10/27/2024 DM2 (diabetes mellitus, type 2) (ICD-10 - E11.9) Steroids prescribed for this patient's underlying pulmonary disease can adversely affect blood glucose levels, inducing hyperglycemia and worsening underlying diabetes. The patient is encouraged to follow up with the primary care provider to create a plan to manage diabetes in this situation. 10/27/2024 History of tobacco abuse (ICD-10 - Z87.891) ~1ppd x 33 years, quit 2002. This patient does not meet current LDCT criteria (e.g. age, time from cessation, # pack-years). Plan Of Treatment Treatment Notes Assessment Notes Pulmonary fibrosis, unspecified Pulmonary fibrosis noted on chest CT 08/02/2024, with clearing of GGO on repeat chest CT 10/14/2023. Fibrosis appears stable on repeat HRCT 04/20/2024 and now with 10/11/2024. Treating as the firbosis is presumptive connective tissue disease (RA vs. SLE) +/- COVID-19. PFT shows slight improvement in TLC from 62% to 75%. Discussed further monitoring. From my perspective, he has had either stability or improvement in HRCT and PFT over the past year, and I feel we could extend monitoring out to 1 year. We both agreed if his symptoms worsen, we can always repeat testing sooner; additionally, if Dr. Guzmán feels in his opinion as a quality assurance tester that 6 month F/U HRCT and PFT are recommended, we can certainly repeat them then. F/U 1 year, or sooner if needed. Post-acute COVID-19 syndrome Patient is participating in pulmonary rehabilitation. Albuterol has no benefit which is not shocking - fibrosis is affecting the interstitial tissue while albuterol targets smooth muscle of bronchioles - albuterol does not generally help with fibrosis. Chronic respiratory failure with hypoxia Hxnt-qw-kres encounter performed with the patient to document continued need for supplemental oxygen (O2). -Flow & directions: 2L/min @ rest, 3-4L/min with activity-Patient voices adherence to recommended usage: Yes-Symptom control on O2: Less SOB with O2-Counseled patient not begin, restart, or continue smoking, around the O2 due to risk of fire which could result in damage to the O2 tanks & lines, smoke inhalation and flame damage to the airway, significant arzate, potential , property damage, and potential harm & to bystanders. Additionally, counseled it is not lloyd to begin, restart, or continue smoking given the underlying pulmonary disease that led to the point of requiring O2.-Recommendations: He is doing well with his O2 at this time. Continue O2 ATC. Traction bronchiectasis Secondary to fibrosis. Currently asymptomatic. Rheumatoid arthritis F/U with Dr. Guzmán. DM2 (diabetes mellitus, type 2) Steroids prescribed for this patient's underlying pulmonary disease can adversely affect blood glucose levels, inducing hyperglycemia and worsening underlying diabetes. The patient is encouraged to follow up with the primary care provider to create a plan to manage diabetes in this situation. History of tobacco abuse ~1ppd x 33 years, quit 2002. This patient does not meet current LDCT criteria (e.g. age, time from cessation, # pack-years). Future Test Test Name Order Date CT Chest High Resolution 10/16/2025 PFT ([id number], [id number], [id number]) 10/16/2025 Next Appt Details Follow Up: 1 Year, Reason: P ulmonary fibrosis Provider Name:Alli Sims, 10/26/2025 02:00:00 PM, [address] [place], [address], Procedure Notes * Category Sub-Category Detail Notes PFT Data: 10/11/2024 -FEV1/ FVC: 92%-FEV1: 89%-FVC: 70%-No bronchodilator administered-RV: 77%-T%-DLCO: 39%03/11/2024 -FEV1/FVC: 92%-FEV1: 83%-FVC: 66%-Bronchodilator response: None-RV: 47%-T%-DLCO: 42%10/14/2023-FEV1/FVC: 89%-FEV1: 73%-FVC: 60%-No bronchodilator administered-RV: 65%-T%-DLCO: 34% Progress Notes * Mariano SPAULDINGDOB:[birth year] (74 yo M)Acc No.[id number]:10/27/2024 Follow Up Patient: Estefani ARZOLAMariano Provider: Rah Sims DO :1950 A ge:74 Y S ex:Male Date:10/27/2024 Address:[address] [place], [place] [id number] Pcp:Vernon Greene, Check In:01:47 PM ESTCheck O ut:02:26 PM EST Subjective: * Chief Complaints: * 6 MO-PULMONARY FIBROSIS * HPI: G eneral: Patient states his breathing is doing about the same. He denies any exacerbations of pulmonary fibrosis or other issues. Reviewed testing - repeat HRCT 10/11/2024 shows no worsening of underlying moderate fibrosis; no mucus plugging was seen. PFT on the same date notes unchanged spirometry, slight improvement in TLC, and relatively unchanged DLCO. His only complaint to day is back pain. He remains on 3L/min O2. MA Intake Comments:. Patient presents for a follow-up for Pulmonary Fibrosis. Patient complains of SOB with exertion. Patient states his breathing has slightly improved since his last visit. Patient is currently on 3L O2 at home. DME:Jo. Patient reports not using Albuterol in months. Patient is currently enrolled in Pulmonary Rehab at [facility]. Patient recently had a PFT & HRCT performed on 10/11/2024. Patient denies any fevers, chills or night sweats. Patient states overall he feels great except his back pain. Patient denies tobacco use today. Patient is under the care of . * ROS: G eneral/Constitutional: Fever or sweats d enies. C hange of appetite d enies. C hills d enies. W eight Change d enies. H EENT: Dry mouth d enies. S ore throat d enies. O ral Ulcers d enies. P ost Nasal Drip D enies. C ongestion D enies. H oarseness?Denies. C ardiovascular: Tachycardia d enies. C hest pain d enies. P alpitations d enies. R espiratory: Chest tightness d enies. P leurisy D enies. D yspnea w ith exertion. C ough d enies. H emoptysis d enies. W heezing d enies. G astrointestinal: Acid Reflux/GERD/Heartburn d enies. D ysphagia d enies. M usculoskeletal: Arthralgias/joint pain A dmits. B ack pain a dmits. S kin: Rash d enies. N eurologic: Seizures d enies. T remor d enies. H ematology: Abnormal Bleeding d enies. P sychiatric: Anxiety d enies. * Active Problem List J84.10 Pulmonary fibrosis, unspecified Modified On:12/09/2023U Status:confirmed J96.11 Chronic respiratory failure with hypoxia Modified On:12/09/2023U Status:confirmed M06.9 Rheumatoid arthritis Modified On:12/09/2023U Status:confirmed E11.9 DM2 (diabetes mellit , type 2) Modified On:12/09/2023U Status:confirmed Z87.891 History of tobacco a julio Modified On:12/09/2023W/U Status:confirmed J47.9 Traction bronchiecta sis Modified On:12/09/2023/U Status:confirmed U09.9 Post-acute COVID-19 syndrome Modified On:04/28/2024W/U Status:confirmed * Medical History: * Surgical History: t onsillectomy and adenoidectomy open reduction, internal fixation (ORIF)-left arm lumpectomy-left elbow Cardiac Catheterization with Stent Placement * Hospitalization/Major Diagno stic Procedure: C ovid-19-TB 08/02/2023 * Family History: F ather: esophageal cancer. B rother(s): esophageal cancer. M aternal Grandfather: stroke. P aternal Grandfather: diagnosed with Unspecified heart disease. * Social History: T obacco Use: T obacco Control (Standard) T obacco use: F ormer smoker H ow long has it been since you last smoked??Greater than 10 years A dditional Findings: Tobacco non-user E x-moderate cigarette smoker (10-19/day) Electronic Cigarette use C urrent user N o LM: Additional Tobacco Questions N umber of Years Pt Smoked: 3 0 N umber of Packs per Day: 1 When did you stop smokin years ago. M iscellaneous: Erin carrascoulatory Assistance E quipment: C ane Occupation O ccupation: [employer] Pets: none. D rugs/Alcohol: D rugs H ave you used drugs other than those for medical reasons in the past 12 months? N o D oes the Patient have a History of Drug Abuse in the Past? N o Caffeine I ntake: O ccasionally Diet Coke/Coffee Do you drink alcohol?: No. Do you smoke marijuana?: Denies. * Medications: T akingAlbuterol Sulfate HFA 108 (90 Base) MCG/ACT Aerosol Solution INHALE 2 PUFFS BY MOUTH EVERY 6 HOURS NEEDED FOR WHEEZING OR SHORTNESS OF BREATH Inhalation Aspirin 81 MG Tablet Delayed Release 1 tablet Orally Once a day Atorvastatin Calcium 80 MG Tablet Oral Farxiga(Dapagliflozin Propanediol) 10 MG Tablet TAKE 1 TABLET BY MOUTH EVERY DAY Oral Hydroxychloroquine Sulfate 200 MG Tablet Oral Losartan Potassium 25 MG Tablet Oral metFORMIN HCl 1000 MG Tablet Oral Metoprolol Succinate ER 25 MG Tablet Extended Release 24 Hour Oral Mycophenolate Mofetil 500 MG Tablet Oral Nitroglycerin 0.4 MG Tablet Sublingual DISSOLVE 1 TABLET UNDER TONGUE NEEDED Sublingual Ozempic (1 MG/DOSE)(Semaglutide (1 MG/DOSE)) 4 MG/3ML Solution Pen-injector INJECT 1MG SUBCUTANEOUSLY EVERY WEEK FOR 28 DAYS Subcutaneous predniSONE 5 MG Tablet TAKE 2 TABS EACH MORNING NEEDED FOR 1 MONTH, THEN 1 TABLET EACH MORNING NEEDED Oral Medication List reviewed and reconciled with the patientTaking Albuterol Sulfate HFA 108 (90 Base) MCG/ACT Aerosol Solution INHALE 2 PUFFS BY MOUTH EVERY 6 HOURS NEEDED FOR WHEEZING OR SHORTNESS OF BREATH Inhalation Taking Aspirin 81 MG Tablet Delayed Release 1 tablet Orally Once a day Taking Atorvastatin Calcium 80 MG Tablet Oral Taking Farxiga(Dapagliflozin Propanediol) 10 MG Tablet TAKE 1 TABLET BY MOUTH EVERY DAY Oral Taking Hydroxychloroquine Sulfate 200 MG Tablet Oral Taking Losartan Potassium 25 MG Tablet Oral Taking metFORMIN HCl 1000 MG Tablet Oral Taking Metoprolol Succinate ER 25 MG Tablet Extended Release 24 Hour Oral Taking Mycophenolate Mofetil 500 MG Tablet Oral Taking Nitroglycerin 0.4 MG Tablet Sublingual DISSOLVE 1 TABLET UNDER TONGUE NEEDED Sublingual Taking Ozempic (1 MG/DOSE)(Semaglutide (1 MG/DOSE)) 4 MG/3ML Solution Pen-injector INJECT 1MG SUBCUTANEOUSLY EVERY WEEK FOR 28 DAYS Subcutaneous Taking predniSONE 5 MG Tablet TAKE 2 TABS EACH MORNING NEEDED FOR 1 MONTH, THEN 1 TABLET EACH MORNING NEEDED Oral Medication List reviewed and reconciled with the patient * Allergies: N .K.D.A.no[Allergies Verified] Objective: * Vitals: W t:208.0lbs, Ht: 71 in, BP:sittin/69mm Hg, Temp:Forehead:96.8F, HR: 89 /min,83/min, RR:20/min, BMI:29.01Index, Oxygen sat %: Oxygen 3l:87 %,Oxygen 3l:95%, Ht-cm: 180.34 cm, Wt-k.35 kg. POC 3L -Activity/Resting. * Examination: E xam: GENERAL APPEARANCE: A ppears stated age. Skin N ormal. Nose W earing nasal cannula. Mouth P ink and moist. Dentures. Oropharynx M allampati Class IV. Macroglossia. Tongue ridging. Trachea M idline. Chest N ormal. Respiratory Normal M ovements, E ffort N ormal. Auscultation U nchanged dry inspiratory crackles which increase towards the bases. Cardiac R egular rate and rhythm. Gastrointestinal N ormal. Vascular N o edema. Musculoskeletal N ormal posture. No clubbing. Neurological F ocal, intact. Psychiatric A lert and oriented x3. Mentation/Cognition N ormal. Assessment: * Assessment: 1. P ulmonary fibrosis, unspecified - J84.10 (Primary) 2 . P ost-acute COVID-19 syndrome - U09.9 3 . C hronic respiratory failure with hypoxia - J96.11? 4. T raction bronchiectasis - J47.9 5 . R heumatoid arthritis - M06.9 6 . D M2 (diabetes mellitus, type 2) - E11.9 7 . H istory of tobacco abuse - Z87.891 Plan: * Treatment: 2. P ost-acute COVID-19 syndrome I maging: CT Chest High Resolution (Ordered for 10/16/2025) P rocedure: PFT ([id number], [id number], [id number]) (Ordered for 10/16/2025) Notes: Patient is participating in pulmonary rehabilitation. Albuterol has no benefit which is not shocking - fibrosis is affecting the interstitial tissue while albuterol targets smooth muscle of bronchioles - albuterol does not generally help with fibrosis. 3. C hronic respiratory failure with hypoxia Notes: Bsqp-zf-zjnq encounter performed with the patient to document continued need for supplemental oxygen (O2). -Flow & directions: 2L/min @ rest, 3-4L/min with activity-Patient voices adherence to recommended usage: Yes-Symptom control on O2: Less SOB with O2-Counseled patient not begin, restart, or continue smoking, around the O2 due to risk of fire which could result in damage to the O2 tanks & lines, smoke inhalation and flame damage to the airway, significant arzate, potential , property damage, and potential harm & to bystanders. Additionally, counseled it is not lloyd to begin, restart, or continue smoking given the underlying pulmonary disease that led to the point of requiring O2.-Recommendations: He is doing well with his O2 at this time. Continue O2 ATC. 4. T raction bronchiectasis Notes: Secondary to fibrosis. Currently asymptomatic. 5. R heumatoid arthritis Notes: F/U with Dr. Guzmán. 6. D M2 (diabetes mellitus, type 2) Notes: Steroids prescribed for this patient's underlying pulmonary disease can adversely affect blood glucose levels, inducing hyperglycemia and worsening underlying diabetes. The patient is encouraged to follow up with the primary care provider to create a plan to manage diabetes in this situation. ? 7. H istory of tobacco abuse Notes: ~1ppd x 33 years, quit 2002. This patient does not meet current LDCT criteria (e.g. age, time from cessation, # pack-years). * Procedures: P FT: Data: 10/11/2024 -FEV1/FVC: 92% -FEV1: 89% -FVC: 70% -No bronchodilator administered -RV: 77% -T% -DLCO: 39% 03/11/2024 -FEV1/FVC: 92% -FEV1: 83% -FVC: 66% -Bronchodilator response: None -RV: 47% -T% -DLCO: 42% 10/14/2023 -FEV1/FVC: 89% -FEV1: 73% -FVC: 60% -No bronchodilator administered -RV: 65% -T% -DLCO: 34%. * Procedure Codes: * Preventive Medicine: COVID Vaccination: H as patient had COVID Vaccination? COVID Vaccination N o Patient Refused Immunization Status: P neumovacc p neumovacc -05/25/2018. I nfluenza P t Refused. Screenings/Counseling: F ALL RISK SCREENING Fall Risk Assessment: N o falls in the past year Are you afraid of falling? N o T OBACCO ACTION PLAN Patient counselled on the dangers of tobacco use and urged to quit. 0 10/27/2024 Former Education on smoking effects provided?10/27/2024 Former F KATHLEEN EXCLUSION Reason: P atient Reason refused/declined Type of Patient Reason: D rug declined by patient B LA ACTION PLAN Above Normal BMI Follow-up D ietary management education, guidance, and counseling * Follow Up: 1 Year (Reason: Pulmonary fibrosis) * * Sign off status: Completed Visit Status: C HK (Check Out) true * Provider: Rah Sims DO Date: 0 10/27/2024 Generated for Boni emmanuel/Araceli/Kaley on: 0 03/29/2025 01:14 PM EDT History and Physical Notes * HPI (History of Present Illness) Category Sub-Category Detail Notes Category Not es General Patient present s for a follow-up for Pulmonary Fibrosis. Patient complains of SOB with exertion. Patient states his breathing has slightly improved since his last visit. Patient is currently on 3L O2 at home. DME:Jo. Patient reports not using Albuterol in months. Patient is currently enrolled in Pulmonary Rehab at [facility]. Patient recently had a PFT & HRCT performed on 10/11/2024. Patient denies any fevers, chills or night sweats. Patient states overall he feels great except his back pain. Patient denies tobacco use today. Patient is under the care of . Examination Category Sub-Category Detail Notes Category Not es Exam GENERAL APPEARANCE: Appears stated age Skin Normal Eyes Ears Nose Wearing nasal cannul a Mouth [place] and moist. [place] ures Trachea Midline Chest Normal Respiratory Normal Movements, Ef fort Normal Auscultation Unchanged dry inspir atory crackles which increase towards the bases Cardiac Regular rate and rhy thm Gastrointestinal Normal Vascular No edema Musculoskeletal Normal posture. No c lubbing Neurological Focal, intact Psychiatric Alert and oriented x 3 Mentation/Cognition Normal Oropharynx Mallampati Class IV. Macroglossia. Tongue ridging
--- OUTSIDE RECORDS SUMMARY | 2025-03-29 13:14 | XMS_ITS | Clinical Summary ---
Author Organization [facility] Healthcare Address [address] [place] [address] Care Team Providers Care Neon Sign Erector Name Role Phone Unavailable Primary Care Provider Unavailabl e Allergies No known active allergies Medications atorvastatin (Lipitor) 80 MG tablet Take 80 mg by mouth in the evening Active albuterol HFA 90 mcg/act inhaler INHALE 2 PUFFS BY MOUTH EVERY 6 HOURS NEEDED FOR WHEEZING OR SHORTNESS OF BREATH Active metFORMIN (Glucophage) 1000 MG tablet TAKE 1 TABLET BY MOUTH BEFORE BREAKFAST AND EVENING MEAL 90 Active metoprolol succinate XL (Toprol-XL) 25 MG 24 hr tablet Take 25 mg by mouth Daily Active Ozempic, 1 MG/DOSE, 4 MG/3ML solution pen-injector INJECT 1MG SUBCUTANEOUSLY EVERY WEEK FOR 28 DAYS 4 Active predniSONE (Deltasone) 5 MG tablet 4 Active meloxicam (Mobic) 15 MG tablet .COMPLEX 4 Active losartan (Cozaar) 25 MG tablet Take 25 mg by mouth Daily Active hydroxychloroq uine (Plaquenil) 200 MG tablet TAKE 1 TABLET BY MOUTH TWICE DAILY WITH FOOD. REMEMBER YEARLY EYE EXAM Active Farxiga 10 MG Take 10 mg by mouth Daily Active Active Problems Problem Noted Date Diagnosed Date Anarthritic rheumatoid disease ([facility]HS-HCC) COVID High blood pressure High cholesterol Type 2 diabetes mellitus Social History Tobacco Use Types Packs/Day Years Used Date Smoking Tobacco: Never Smokeless Tobacco: Never Tobacco Cessation:Counseling Given: Not Answered Alcohol Use Standard Drinks/Week Comments Yes 0 (1 standard drink = 0.6 oz pur e alcohol) Sex and Gender Information Value Date Recorded Sex Assigned at Not on file Legal Sex Male 7:02 PM EDT Gender Identity Not on file Sexual Orientation Not on file Last Filed Vital Signs Vital Sign Reading Time Taken Comments Blood Pressure 122/80 05/17/2024 1:51 PM EDT Pulse 111 05/17/2024 1:51 PM EDT repeat puls 96bpm apical Temperature 36.6 C (97.8 F) 05/17/2024 1:51 PM EDT Respiratory Rate 20 05/17/2024 1:51 PM EDT Oxygen Saturation 94% 05/17/2024 1:5 1 PM EDT Inhaled Oxygen Concentration - - Weight 89.8 kg (198 lb) 05/17/2024 1:51 PM EDT Height - - Body Mass Index - - Plan of Treatment Not on file Insurance [employer]
--- OUTSIDE RECORDS SUMMARY | 2025-03-29 13:14 | XMS_ITS | Patient Health Record ---
Author Organization [facility] in [place] Address [address] [place] [address] Care Team Providers Care Tobacco Baler Name Role Phone Vernon Garduno DO Primary Care Provider Elvin Sheffield Unavailable [phone] Allergies No Known Allergies Results Component Value Reference Range Notes RT pulmonary function test Reviewed date:10/12/2024 10:42:39 AM Interpretation: Performing Lab: Notes/Report: Source Facility: [place] [address] [place] [address] Respiratory Report Signed Patient: VINAY SPAULDING MR#: [id number] : 1950 Acct:[id number] Age/Sex: 74 / M ADM Date: 10/11/24 Loc: CT Attending Dr: Elvin Guillen D.O. Ordering Physician: Elvin Guillen D.O. Date of Service: 10/11/24 Procedure(s): RT pulmonary function test Accession Number(s): [id number] cc: [facility] Test Date: 2024-10-11 Pat Name: VINAY SPAULDING Department: Room: - Gender: Male Slot Operations Manager: Thony Funez RRT : 1950 Requested By: Elvin Guillen Order Number: [id number] Reading MD: Elvin Guillen Interpretive Statements Pulmonary function testing was completed according to ATS criteria. Findings were considered accurate and reproducible, with exception of DLCO which did not meet ATS standards. Both pre- and post-bronchodilator values utilized for spirometry. Spirometry: -FEV1/FVC: Normal @ 92% -FEV1: Normal @ 89% -FEV1: Mild-moderately reduced @ 70% Lung volumes by plethysmography: -RV: Reduced @ 77% -TLC: Mildly reduced @ 75% Diffusion capacity: -DLCO: Very severe reduction @ 39% when corrected for Hb 14.4g/dL Comparison with prior PFT 03/11/2024 and 10/14/2023: -T% 62% -DLCO: 42% 34% Impressions: -Spirometry suggests mild-moderate restriction, confirmed with a reduced TLC. Very severe diffusion impairment. Overall study is compatible with ILD/pulmonary fibrosis. Compared to prior PFT, TLC has improved with DLCO remaining within the previously reported range. Clinical correlation required. Electronically Signed On 10-12-2024 10:21:54 EST by Elvin Guillen Dictated By: Elvin Guillen D.O. Signed By: 10/12/24 1022 DD/ 1311 TD/TT: Psychological Assistant: [place] [address] Respiratory Report Signed Patient: DELFINA SPAULDING MR#: [id number] : 1950 Acct:[id number] Age/Sex: 74 / M ADM Date: 10/11/24 Loc: CT Attending Dr: Elvin Guillen D.O. Ordering Physician: Elvin Guillen D.O. Date of Service: 10/11/24 Procedure(s): RT pul monary function test Accession Number(s): [id number] cc: [facility] Test Date: 2024-10-11 Pat Name: VINAY LÓPEZ Department: Room: - Gender: Male Technic tiffany: Thony Funez RRT : 1950 Requ ested By: Elvin Guillen Order Number: [id number] Reading MD: Elvin Guillen Interpretive Statements Pulmonary function t esting was completed according to ATS criteria. Findings were considered accu rate and reproducible, with exception of DLCO which did not meet ATS standar ds. Both pre- and post-bronchodilator values utilized for spirometry. Spirometry: -FEV1/FVC: Normal @ 92% -FEV1: Normal @ 89% -FEV1: Mild-moderate ly reduced @ 70% Lung volumes by plethysmography: -RV: Reduced @ 77% -TLC: Mildly reduced @ 75% Diffusion capacity: -DLCO: Very severe r eduction @ 39% when corrected for Hb 14.4g/dL Comparison with prio r PFT 03/11/2024 and 10/14/2023: -T% 62% -DLCO: 42% 34% Impressions: -Spirometry suggests mild-moderate restriction, confirmed with a reduced TLC. Very severe diffusio n impairment. Overall study is compatible with ILD/pulmonary fibros is. Compared to prior PFT, TLC has improved with DLCO remaining within the previously reported range. Clinical correlation required. Electronically [place] On 10-12-2024 10:21:54 EST by Elvin Guillen Dictated By: Elvin Guillen D.O. Signed By: 10/12/24 1022 DD/ 1311 TD/TT: Psychological Assistant: CT chest high res Reviewed date:10/12/2024 07:45:22 AM Interpretation: Performing Lab: Notes/Report: Source Facility: [place] [address] CT Scan Report Signed Patient: VINAY SPAULDING MR#: [id number] : 1950 Acct:[id number] Age/Sex: 74 / M ADM Date: 10/11/24 Loc: CT Attending Dr: Elvin Guillen D.O. Ordering Physician: Elvin Guillen D.O. Date of Service: 10/11/24 Procedure(s): CT chest high res Accession Number(s): [id number] cc: Vernon Garduno D.O. [place] [address] Patient Name: VINAY SPAULDING MRN: [id number] date: 1950 Sex: M Assigned Patient Location: CT Current Patient Location: Accession/Order Number: [id number] Exam Date: 10/11/2024 14:37 Report Date: 10/12/2024 06:46 At the request of: ELVIN GUILLEN Procedure: CT chest high res EXAMINATION: CT chest high res HISTORY: Pulmonary Fibrosis COMPARISON: No relevant comparison available. TECHNIQUE: Axial images were obtained at 10 mm intervals during inspiration and expiration in the supine and prone positions. No IV contrast given. Dose reduction techniques were achieved by using automated exposure control and/or adjustment of mA and/or kV according to patient size and/or use of iterative reconstruction technique. FINDINGS: LUNGS: Moderate peripheral fibrosis throughout the lungs, slightly greater within lung bases. No acute infiltrates or appreciable mass. Patent bronchi; no appreciable mucous plugging. PLEURA: No mass, effusion, or pneumothorax. AWILDA: No mass or adenopathy. MEDIASTINUM: No mass or adenopathy. HEART: No significant enlargement or pericardial effusion.. Coronary arteries: Heavy. There is AORTA: No aneurysm.. CHEST WALL: No mass or axillary adenopathy LIMITED ABDOMEN: No suspicious findings. Limited images of the upper abdomen. OTHER: Old healed left rib fractures. CT/CT chest high res IMPRESSION: 1. Grossly stable moderate to marked peripheral fibrosis bilaterally. No appreciable acute infiltrates or mass. Electronically authenticated by: JOSE DAVID FLOYD Date: 10/12/2024 06:46 Dictated By: Jose David Floyd M.D. Signed By: 10/12/2448 DD/ 5 TD/TT: Psychological Assistant: [place] [address] CT Scan Report Signed Patient: DELFINA SPAULDING MR#: [id number] : 1950 Acct:[id number] Age/Sex: 74 / M ADM Date: 10/11/24 Loc: CT Attending Dr: Elvin Guillen D.O. Ordering Physician: Elvin Guillen D.O. Date of Service: 10/11/24 Procedure(s): CT chest high res Accession Number(s): [id number] cc: Vernon Garduno D.O. [place] [id number] Patient Name: VINAY SPAULDING MRN: [id number] date: 1950 Sex: M Assigned Patient Location: CT Current Patient Location: Accession/Order Jacy er: [id number] Exam Date: 10/11/2024 14:37 Report Date: 10/12/2024 06:46 At the request of: ELVIN GUILLEN Procedure: CT chest high res EXAMINATION: CT chest high res HISTORY: Pulmonary Fibrosis COMPARISON: No relev ant comparison available. TECHNIQUE: Axial manju ges were obtained at 10 mm intervals during inspiration and expiration in the elizabeth pine and prone positions. No IV contrast given. Dose reduction techniques were achieved by using automated exposure control and/or adjustment of mA and /or kV according to patient size and/or use of iterative reconstruction technique. FINDINGS: LUNGS: Moderate emeli pheral fibrosis throughout the lungs, slightly greater within lung bases. N o acute infiltrates or appreciable mass. Patent bronchi; no appreciable mucous plugging. PLEURA: No mass, eff usion, or pneumothorax. AWILDA: No mass or adenopathy. MEDIASTINUM: No mass or adenopathy. HEART: No significan t enlargement or pericardial effusion.. Coronary arteries: Heavy. There is AORTA: No aneurysm.. CHEST WALL: No mass or axillary adenopathy LIMITED ABDOMEN: No suspicious findings. Limited images of the upper abdomen. OTHER: Old healed le ft rib fractures. C T/CT chest high res IMPRESSION: 1. Grossly stable mo derate to marked peripheral fibrosis bilaterally. No appreciable acute in filtrates or mass. Electronically authe nticated by: JOSE DAVID FLOYD Date: 10/12/2024 06:46 Dictated By: Jose David Floyd M.D. Signed By: 10/12/2448 DD/ TD/TT: Psychological Assistant: CT Chest High Resolution Reviewed date:10/12/2024 07:15:13 AM Interpretation: Performing Lab: Notes/Report: ITP Reviewed date:11/02/2024 07:29:46 AM Interpretation: Performing Lab: Notes/Report: Source Facility: [place] [address] [place] [address] Cardiac Rehab Report Signed Patient: VINAY SPAULDING MR#: [id number] : 1950 Acct:[id number] Age/Sex: 74 / M ADM Date: 10/28/24 Loc: CR Attending Dr: Elvin Guillen D.O. Ordering Physician: Elvin Guillen D.O. Date of Service: 10/29/24 Procedure(s): ITP Accession Number(s): [id number] cc: [facility] Test Date: 2024-10-29 Pat Name: VINAY SPAULDING Department: Room: - Gender: Male Slot Operations Manager: : 1950 Requested By: Elvin Guillen Order Number: [id number] Angel Luis MD: VERNON GARDUNO Interpretive Statements Session Date: Electronically Signed On 10-31-2024 8:18:38 EST by VERNON GARDUNO Dictated By: Vernon Garduno D.O. Signed By: 10/31/24 0818 10/31/24817 DD/ 36 TD/TT: Psychological Assistant: [place] [address] Cardiac Rehab Report Signed Patient: DELFINA SPAULDING MR#: [id number] : 1950 Acct:[id number] Age/Sex: 74 / M ADM Date: 10/28/24 Loc: CR Attending Dr: Elvin Guillen D.O. Ordering Physician: Elvin Guillen D.O. Date of Service: 10/29/24 Procedure(s): ITP Accession Number(s): [id number] cc: [facility] Test Date: 2024-10-29 Pat Name: VINAY ARTEAGA TICOSIMONE Department: Room: - Gender: Male Slot Operations Manager: : 1950 Requ ested By: Elvin Guillen Order Number: [id number] Angel Luis MD: VERNON GARDUNO Interpretive Statements Session Date: Electronically [place] On 10-31-2024 8:18:38 EST by VERNON GARDUNO Dictated By: Vernon Garduno D.O. Signed By: 10/31/24 0818 10/31/24817 DD/ 36 TD/TT: Psychological Assistant: KESHA Reviewed date:02/24/2025 04:04:43 PM Interpretation: Performing Lab: Notes/Report: Source Facility: [place] [address] [place] [address] Cardiac Rehab Report Signed Patient: VINAY SPAULDING MR#: [id number] : 1950 Acct:[id number] Age/Sex: 74 / M ADM Date: 02/24/25 Loc: CR Attending Dr: Elvin Guillen D.O. Ordering Physician: Elvin Guillen D.O. Date of Service: 02/24/25 Procedure(s): ITP Accession Number(s): [id number] cc: [facility] Test Date: 2025-02-24 Pat Name: VINAY SPAULDING Department: Room: - Gender: Male Slot Operations Manager: : 1950 Requested By: Elvin Guillen Order Number: [id number] Angel Luis MD: Elvin Guillen Interpretive Statements Okay to proceed with outlined treatment plan. Electronically Signed On 02-24-2025 15:29:26 EDT by Elvin Guillen Dictated By: Elvin Guillen D.O. Signed By: 02/24/25 1529 02/24/25 1529 DD/ 1442 TD/TT: Psychological Assistant: [place] [address] Cardiac Rehab Report Signed Patient: DELFINA SPAULDING MR#: [id number] : 1950 Acct:[id number] Age/Sex: 74 / M ADM Date: 02/24/25 Loc: CR Attending Dr: Elvin Guillen D.O. Ordering Physician: Elvin Guillen D.O. Date of Service: 02/24/25 Procedure(s): ITP Accession Number(s): [id number] cc: [facility] Test Date: 2025-02-24 Pat Name: VINAY ARTEAGA TICOSIMONE Department: Room: - Gender: Male Slot Operations Manager: : 1950 Requ ested By: Elvin Guillen Order Number: [id number] Angel Luis MD: Elvin Guillen Interpretive Statements Okay to proceed with outlined treatment plan. Electronically [place] On 02-24-2025 15:29:26 EDT by Elvin Guillen Dictated By: Elvin Guillen D.O. Signed By: 02/24/25 1529 02/24/25 1529 DD/ 1442 TD/TT: Psychological Assistant: KESHA Reviewed date:03/09/2025 10:42:39 AM Interpretation: Performing Lab: Notes/Report: Source Facility: [place] [address] [place] [address] Cardiac Rehab Report Signed Patient: VINAY SPAULDING MR#: [id number] : 1950 Acct:[id number] Age/Sex: 74 / M ADM Date: 03/08/25 Loc: CR Attending Dr: Elvin Guillen D.O. Ordering Physician: Elvin Guillen D.O. Date of Service: 03/01/25 Procedure(s): ITP Accession Number(s): [id number] cc: [facility] Test Date: 2025-03-01 Pat Name: VINAY SPAULDING Department: Room: - Gender: Male Slot Operations Manager: : 1950 Requested By: Elvin Guillen Order Number: [id number] Angel Luis MD: Elvin Guillen Interpretive Statements Okay to continue with outlined treatment plan. Electronically Signed On 03-09-2025 10:10:23 EDT by Elvin Guillen Dictated By: Elvin Guillen D.O. Signed By: 03/09/25 1010 03/09/25 1010 DD/ 1500 TD/TT: Psychological Assistant: [place] [address] Cardiac Rehab Report Signed Patient: DELFINA SPAULDING MR#: [id number] : 1950 Acct:[id number] Age/Sex: 74 / M ADM Date: 03/08/25 Loc: CR Attending Dr: Elvin Guillen D.O. Ordering Physician: Elvin Guillen D.O. Date of Service: 03/01/25 Procedure(s): ITP Accession Number(s): [id number] cc: [facility] Test Date: 2025-03-01 Pat Name: VINAY LÓPEZ Department: Room: - Gender: Male Slot Operations Manager: : 1950 Requ ested By: Elvin Guillen Order Number: [id number] Angel Luis MD: Elvin Guillen Interpretive Statements Okay to continue wit h outlined treatment plan. Electronically [place] On 03-09-2025 10:10:23 EDT by Elvin Guillen Dictated By: Elvin Guillen D.O. Signed By: 03/09/25 1010 03/09/25 1010 DD/ 1500 TD/TT: Psychological Assistant: KESHA Reviewed date:05/25/2024 07:59:32 AM Interpretation: Performing Lab: Notes/Report: Source Facility: [place] [address] [place] [address] Cardiac Rehab Report Signed Patient: VINAY SPAULDING MR#: [id number] : 1950 Acct:[id number] Age/Sex: 73 / M ADM Date: 05/13/24 Loc: CR Attending Dr: Elvin Guillen D.O. Ordering Physician: Elvin Guillen D.O. Date of Service: 05/13/24 Procedure(s): ITP Accession Number(s): [id number] cc: [facility] Test Date: 2024-05-13 Pat Name: VINAY SPAULDING Department: Room: - Gender: Male Slot Operations Manager: : 1950 Requested By: Elvin Guillen Order Number: [id number] Angel Luis MD: VERNON GARDUNO Interpretive Statements Session Date: Electronically Signed On 05-13-2024 22:37:45 EDT by VERNON GARDUNO Dictated By: Vernon Garduno D.O. Signed By: 05/13/24223605/13/242236 DD/ 1531 TD/TT: Psychological Assistant: [place] [address] Cardiac Rehab Report Signed Patient: DELFINA SPAULDING MR#: [id number] : 1950 Acct:[id number] Age/Sex: 73 / M ADM Date: 05/13/24 Loc: CR Attending Dr: Elvin Guillen D.O. Ordering Physician: Elvin Guillen D.O. Date of Service: 05/13/24 Procedure(s): ITP Accession Number(s): [id number] cc: [facility] Test Date: 2024-05-13 Pat Name: VINAY LÓPEZ Department: Room: - Gender: Male Slot Operations Manager: : 1950 Requ ested By: Elvin Guillen Order Number: [id number] Reading MD: VERNON GARDUNO Interpretive Statements Session Date: Electronically [place] On 05-13-2024 22:37:45 EDT by VERNON GARDUNO Dictated By: Vernon Garduno D.O. Signed By: 05/13/24223605/13/242236 DD/ 30 TD/TT: Psychological Assistant: CT chest high res Reviewed date:04/21/2024 06:57:57 AM Interpretation: Performing Lab: Notes/Report: Source Facility: [place] [address] CT Scan Report Signed Patient: VINAY SPAULDING MR#: [id number] : 1950 Acct:[id number] Age/Sex: 73 / M ADM Date: 04/20/24 Loc: CT Attending Dr: Elvin Guillen D.O. Ordering Physician: Elvin Guillen D.O. Date of Service: 04/20/24 Procedure(s): CT chest high res Accession Number(s): [id number] cc: Vernon Garduno D.O. [place] [id number] Patient Name: VINAY SPAULDING MRN: [facility]:[id number] date: 1950 Sex: M Assigned Patient Location: CT Current Patient Location: Accession/Order Number: [id number] Exam Date: 04/20/2024 12:57 Report Date: 04/21/2024 06:19 At the request of: ELVIN GUILLEN Procedure: CT chest high res EXAMINATION: CT chest high res HISTORY: pulmonary fibrosis COMPARISON: CT chest 10/14/2023 TECHNIQUE: Axial images were obtained at 10 mm intervals during inspiration and expiration in the supine and prone positions. No IV contrast given. Dose reduction techniques were achieved by using automated exposure control and/or adjustment of mA and/or kV according to patient size and/or use of iterative reconstruction technique. FINDINGS: LUNGS: Peripheral fibrosis, or coarsening of interstitial markings, and bronchiectasis throughout the lungs bilaterally. No appreciable air trapping. PLEURA: No mass, effusion, or pneumothorax. AWILDA: No mass or adenopathy. MEDIASTINUM: No mass or adenopathy. HEART: No significant enlargement or pericardial effusion.. Coronary arteries: Moderate AORTA: No aneurysm.. CHEST WALL: No mass or axillary adenopathy LIMITED ABDOMEN: No suspicious findings. Limited images of the upper abdomen. OTHER: Negative. CT/CT chest high res IMPRESSION: 1. Grossly stable moderate to marked pulmonary fibrosis, chronic interstitial changes, bronchiectasis. 2. No acute infiltrates. Electronically authenticated by: JOSE DAVID FLOYD Date: 04/21/2024 06:19 Dictated By: Jose David Floyd M.D. Signed By: 04/21/24620 DD/ 8 TD/TT: Psychological Assistant: [place] [address] CT Scan Report Signed Patient: DELFINA SPAULDING MR#: [id number] : 1950 Acct:[id number] Age/Sex: 73 / M ADM Date: 04/20/24 Loc: CT Attending Dr: Elvin Guillen D.O. Ordering Physician: Elvin Guillen D.O. Date of Service: 04/20/24 Procedure(s): CT chest high res Accession Number(s): [id number] cc: Vernon Garduno D.O. [place] [id number] Patient Name: VINAY SPAULDING MRN: [facility]:[id number] date: 1950 Sex: M Assigned Patient Location: CT Current Patient Location: Accession/Order Numb er: [id number] Exam Date: 04/20/2024 12:57 Report Date: 04/21/2024 06:19 At the request of: ELVIN GUILLEN Procedure: CT chest high res EXAMINATION: CT chest high res HISTORY: pulmonary fibrosis COMPARISON: CT chest 10/14/2023 TECHNIQUE: Axial manju ges were obtained at 10 mm intervals during inspiration and expiration in the elizabeth pine and prone positions. No IV contrast given. Dose reduction techniques were achieved by using automated exposure control and/or adjustment of mA and /or kV according to patient size and/or use of iterative reconstruction technique. FINDINGS: LUNGS: Peripheral fi brosis, or coarsening of interstitial markings, and bronchiectasis throu ghout the lungs bilaterally. No appreciable air trapping. PLEURA: No mass, eff usion, or pneumothorax. AWILDA: No mass or adenopathy. MEDIASTINUM: No mass or adenopathy. HEART: No significan t enlargement or pericardial effusion.. Coronary arteries: Moderate AORTA: No aneurysm.. CHEST WALL: No mass or axillary adenopathy LIMITED ABDOMEN: No suspicious findings. Limited images of the upper abdomen. OTHER: Negative. C T/CT chest high res IMPRESSION: 1. Grossly stable mo derate to marked pulmonary fibrosis, chronic interstitial changes, bronchiectasis. 2. No acute infiltrates. Electronically authe nticated by: JOSE DAVID FLOYD Date: 04/21/2024 06:19 Dictated By: Jose David Floyd M.D. Signed By: 04/21/24620 DD/ 8 TD/TT: Psychological Assistant: CT Chest High Resolution Reviewed date:04/21/2024 07:09:08 AM Interpretation: Performing Lab: Notes/Report: ITP Reviewed date:06/04/2024 01:46:46 PM Interpretation: Performing Lab: Notes/Report: Source Facility: [place] [address] [place] [address] Cardiac Rehab Report Signed Patient: VINAY SPAULDING MR#: [id number] : 1950 Acct:[id number] Age/Sex: 73 / M ADM Date: 05/18/24 Loc: CR Attending Dr: Elvin Guillen D.O. Ordering Physician: Elvin Guillen D.O. Date of Service: 06/02/24 Procedure(s): ITP Accession Number(s): [id number] cc: [facility] Test Date: 2024-06-02 Pat Name: VINAY SPAULDING Department: Room: - Gender: Male Slot Operations Manager: : 1950 Requested By: Elvin Guillen Order Number: [id number] Angel Luis MD: VERNON GARDUNO Interpretive Statements Session Date: Electronically Signed On 06-03-2024 20:09:08 EDT by VERNON GARDUNO Dictated By: Vernon Garduno D.O. Signed By: 06/03/24200806/03/242008 DD/ 6 TD/TT: Psychological Assistant: [place] [address] Cardiac Rehab Report Signed Patient: DELFINA SPAULDING MR#: [id number] : 1950 Acct:[id number] Age/Sex: 73 / M ADM Date: 05/18/24 Loc: CR Attending Dr: Elvin Guillen D.O. Ordering Physician: Elvin Guillen D.O. Date of Service: 06/02/24 Procedure(s): ITP Accession Number(s): [id number] cc: [facility] Test Date: 2024-06-02 Pat Name: VINAY LÓPEZ Department: Room: - Gender: Male Slot Operations Manager: : 1950 Requ ested By: Elvin Guillen Order Number: [id number] Angel Luis MD: VERNON GARDUNO Interpretive Statements Session Date: Electronically [place] On 06-03-2024 20:09:08 EDT by VERNON GARDUNO Dictated By: Vernon Garduno D.O. Signed By: 06/03/24200806/03/242008 DD/ 6 TD/TT: Psychological Assistant: Reason For Referral No Information Medications Medication SIG (Take, Route, Frequency, Duration) Notes Start Date End Date Status Atorvastatin Calcium 80 MG Oral for 90 Days Active Aspirin 81 MG 1 tablet Orally Once a day Active Albuterol Sulfate HFA 108 (90 Base) MCG/ACT INHALE 2 PUFFS BY MOUTH EVERY 6 HOURS NEEDED FOR WHEEZING OR SHORTNESS OF BREATH Inhalation for 25 Days Active metFORMIN HCl 1000 MG Oral for 90 Days Active Losartan Potassium 25 MG Oral for 90 Days Active Hydroxychloroquine Sulfate 200 MG Oral for 30 Days Active Farxiga 10 MG TAKE 1 TABLET BY ADITHYA TH EVERY DAY Oral for 90 Days Active Ozempic (1 MG/DOSE) 4 MG/3ML INJECT 1MG SUBCUTANEOUSLY EVERY WEEK FOR 28 DAYS Subcutaneous for 28 Days Active Nitroglycerin 0.4 MG DISSOLVE 1 TABLET U NDER TONGUE NEEDED Sublingual for 90 Days Active Mycophenolate Mofetil 500 MG Oral for 30 Days Active Metoprolol Succinate ER 25 MG Oral for 90 Days Active predniSONE 5 MG TAKE 2 TABS EACH MOR LEONARDO NEEDED FOR 1 MONTH, THEN 1 TABLET EACH MORNING NEEDED Oral for 30 Days Active Immunizations Vaccine Route Administration Date Status Comme nts Pneumococcal (Pneumovax 23) Unknown 05/25/2018 Administ ered Pneumococcal (Prevnar 13) Unknown 07/01/2017 Administer ed Social History Tobacco Use: Social History Observation Description Date Details (start date - stop date) Former Smoker NA - NA Tobacco Control (Standard) Question Answer Notes Tobacco use: Former smoker How long has it been since y ou last smoked? Greater than 10 years Additional Findings: Tobacco non-user Ex -moderate cigarette smoker (10-19/day) Problems Problem Type SNOMED Code ICD Code Onset Dates Problem Status W/U Status Risk Notes Problem Pulmonary fibrosis (53700468) Pulmonary fibrosis, unspecified (J84.10) Active confirmed Problem Chronic respiratory failure (52450922) Chronic respiratory failure with hypoxia (J96.11) Active confirmed Problem Rheumatoid arthritis (89297388) Rheumatoid arthritis (M06.9) Active confirmed Problem Diabetes mellitus type 2 (disorder) (93574020) DM2 (diabetes mellitus, type 2) (E11.9) Active confirmed Problem Ex-tobacco user (finding) (402991129) History of tobacco abuse (Z87.891) Active confirmed Problem 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 Problem Post-acute COVID-19 (disorder) (8747774148) Post-acute COVID-19 syndrome (U09.9) Active confirmed Vital Signs Heart Rate 83 /min 10/27/2024 POC 3L -Activit y/Resting Temperature 96.8 degrees Fahrenheit 10/27/2024 POC 3L -Activity/Resting Respiratory Rate 20 /min 10/27/2024 POC 3L -Act ivity/Resting Oximetry 95 % 10/27/2024 POC 3L -Activit y/Resting Blood pressure diastolic 69 mm Hg 10/27/2024 POC 3L -Activity/Resting Height 71 in 10/27/2024 POC 3L -Activit y/Resting Blood pressure systolic 147 mm Hg 10/27/2024 POC 3L -Activity/Resting Weight 208.0 lbs 10/27/2024 POC 3L -Activit y/Resting BMI 29.01 kg/m2 10/27/2024 POC 3L -Activit y/Resting Procedures Procedure Date Ordered Date Performed Result Body Sit e Pulmonary Rehabilitation 04/28/2024 05/03/2024 N/A Encounters Encounter Location Date Provider Diagnosis Pulmonary Medicine [place] [address] [place] [address] 04/28/2024 [facility] Pulmonary fibrosis, unspecified J84.10 ; Post-acute COVID-19 syndrome U09.9 ; Chronic respiratory failure with hypoxia J96.11 ; Traction bronchiectasis J47.9 ; Rheumatoid arthritis M06.9 ; DM2 (diabetes mellitus, type 2) E11.9 and History of tobacco abuse Z87.891 [facility] [place] [address] [place] [address] 10/27/2024 [facility] Pulmonary fibrosis, unspecified J84.10 ; Post-acute COVID-19 syndrome U09.9 ; Chronic respiratory failure with hypoxia J96.11 ; Traction bronchiectasis J47.9 ; Rheumatoid arthritis M06.9 ; DM2 (diabetes mellitus, type 2) E11.9 and History of tobacco abuse Z87.891 [facility] [place] [address] [place] [address] 05/04/2024 [facility] [address] [place] [address] 05/20/2024 [facility] [address] [place] [address] 06/08/2024 [facility] [place] [address] [place] [address] 02/14/2025 [facility] Assessments Encounter Date Diagnosis (ICD Code) Assessment Notes Treatment Notes Treatment Clinical Notes Section Notes 04/28/2024 Pulmonary fibrosis, unspecified (ICD-10 - J84.10) Pulmonary fibrosis noted on chest CT 08/02/2024, with clearing of GGO on repeat chest CT 10/14/2023. Fibrosis appears stable on repeat HRCT 04/20/2024. There is still no concrete diagnosis for the pulmonary fibrosis, the question underlying connective tissue disease (RA vs. SLE) +/- COVID-19. PFTs show slight improvement. Given unclear connective tissue disease, recommend repeating HRCT and PFT in 6 months to establish a trend. If findings are stable or improved at that time, will extend testing out to 1 year. Patient asked what he could do to help improve his breathing. I strongly suggested pulmonary rehabilitation, explained what it does and what it can do for him. I provided him with a pamphlet on pulmonary rehabilitation. He reviewed it and stated he wanted to get signed up. 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 Impossible to tell at this point. I feel patient would benefit from pulmonary rehabilitation. Patient voiced he will sign up for the program 10/27/2024 Pulmonary fibrosis, unspecified (ICD-10 - J84.10) [...] Guzmán feels in his opinion as a career consultant that 6 month F/U HRCT and PFT are recommended, we can certainly repeat them then. F/U 1 year, or sooner if needed. 04/28/2024 Chronic respiratory failure with hypoxia (ICD-10 - J96.11) Wtqg-yl-rcpj encounter performed with the patient to document continued need for supplemental oxygen (O2). -Flow & directions: 2L/min @ rest, 3-4L/min with activity-Patient voices adherence to recommended usage: Yes-Symptom control on O2: Improved dyspnea control-Other patient concerns: He feels his freedom is restricted by the tanks.-Counseled patient not begin, restart, or continue smoking, [...] to the point of requiring O2.-Recommendation s: Patient once again asks about a POC. Will check with Jo to see if this is even possible at his flow. Continue O2 for now. 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 Albuterol has no benefit which is not shocking - fibrosis is affecting the interstitial tissue while albuterol targets smooth muscle of bronchioles - albuterol does not generally help with fibrosis. 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 Currently asymptomatic. 10/27/2024 Chronic respiratory failure with hypoxia (ICD-10 - J96.11) Nhal-yx-dptp encounter performed with the patient to document [...] - J47.9) Secondary to fibrosis. Currently asymptomatic. 04/28/2024 Rheumatoid arthritis (ICD-10 - M06.9) Currently on Plaquenil, managed by Dr. Guzmán. Rechecking PFT and HRCT in 6 months (October 2024) to establish a trend. 04/28/2024 DM2 (diabetes mellitus, type 2) (ICD-10 - E11.9) Steroids prescribed for this patient's underlying pulmonary disease can adversely affect blood glucose levels, inducing hyperglycemia and worsening underlying diabetes. The patient is encouraged to follow up with the primary care provider to create a plan to manage diabetes in this situation. 10/27/2024 Rheumatoid arthritis (ICD-10 - M06.9) F/U with Dr. Guzmán. 10/27/2024 DM2 (diabetes mellitus, type 2) (ICD-10 - E11.9) Steroids prescribed for this patient's underlying pulmonary disease can adversely affect blood glucose levels, inducing hyperglycemia and worsening underlying diabetes. The patient is encouraged to follow up with the primary care provider to create a plan to manage diabetes in this situation. 04/28/2024 History of tobacco abuse (ICD-10 - Z87.891) ~1ppd x 33 years, quit 2002. This patient does not meet current LDCT criteria (e.g. age, time from cessation, # pack-years). 10/27/2024 History of tobacco abuse (ICD-10 - Z87.891) ~1ppd x 33 years, quit 2002. This patient does not meet current LDCT criteria (e.g. age, time from cessation, # pack-years). 04/28/2024 Other Plan Of Treatment Next Appt Details Provider Name:Elvin Guillen, 10/26/2025 02:00:00 PM, [address] [place], [address], Insurance Providers Payer Name Payer Address Payer Phone Subscriber Number Group Number Insured Name Patient Relationship to Insured Coverage Start Date Coverage End Date [employer] [address] [place] [address] [id number] [id number] Vinay Spaulding Self - patient is the insured Medical (General) History Medical History History ICD Code Pulmonary fibrosis, unspecified J84.10 Traction bronchiectasis J47.9 Chronic respiratory failure with hypoxia J96.11 CAD (coronary artery disease) I25.10 NAFLD (nonalcoholic fatty liver disease) K76.0 DM2 (diabetes mellitus, type 2) E11.9 HLD (hyperlipidemia) E78.5 GERD (gastroesophageal reflux disease) K 21.9 HTN (hypertension) I10 BPH (benign prostatic hypertrophy) N40.0 Rheumatoid arthritis M06.9 Diabetic neuropathy E11.40 History of tobacco abuse Z87.891 Post-acute COVID-19 syndrome U09.9 Surgical History Surgery Date(Month/Year) Cardiac Catheterization with Stent Place ment lumpectomy-left elbow open reduction, internal fixation (ORIF) -left arm tonsillectomy and adenoidectomy Hospitalization History Reason Date(Month/Year) [id number] 08/02/2023
[2025-03-29 13:44] LABS: Hematocrit 41.6 % (42.0-54.0); Hemoglobin 14.1 g/dL (14.0-18.0); Immature Granulocytes Abs Auto 0.02 10^3/uL (0.00-0.03); Immature Granulocytes Pct Auto 0.2 % (0.0-0.5); Lymphocytes Absolute Auto 1.7 10^3/uL (1.2-3.8); Mean Corpuscular HGB Conc 33.9 g/dL (29.9-35.2); Mean Corpuscular Hemoglobin 31.3 pg (25.9-34.0); Mean Corpuscular Volume 92.2 fL (80.0-94.0); Platelet Count 273 10^3/uL (150-450); Red Blood Count 4.51 10^6/uL (4.70-6.10); White Blood Count 9.2 10^3/uL (4.0-11.0)
[2025-03-29 15:13] LABS: Alanine Aminotransferase 25 U/L (16-63); Albumin Globulin Ratio 0.8; Albumin Level 3.6 g/dL (3.4-5.0); Alkaline Phosphatase 76 U/L (46-116); Anion Gap 15.2; Aspartate Amino Transferase 15 U/L (15-37); Blood Urea Nitrogen 14.0 mg/dL (7.0-18.0); Calcium 9.5 mg/dL (8.5-10.1); Carbon Dioxide 28.9 mmol/L (21.0-32.0); Chloride 99 mmol/L (98-107); Estimated GFR (African America >60 (>=60 mL/min/1.73m^2); Estimated GFR (Non-African Ame 55 (>=60 mL/min/1.73m^2); Globulin 4.4 g/dL; Glucose 179 mg/dL (74-106); Potassium 4.1 mmol/L (3.5-5.1); Sodium 139 mmol/L (136-145); Total Protein 8.0 g/dL (6.4-8.2)
== END 2025-03-29 13:10 | disposition home or self-care (01) ==
LOC: LAB 13:12
PROVIDERS: PCP Internal Medicine; Visit Provider Registered Nurse
DX: M05.79 Rheumatoid arthritis with rheumatoid factor of multiple sites without organ or systems involvement (principal); Z79.899 Other long term (current) drug therapy
CPT/HCPCS: 36415; 80053; 85025; 85652

== ENCOUNTER 2025-06-23 12:01 | Outpatient (OUT) | payer MEDICARE, SELFPAY ==
--- OUTSIDE RECORDS SUMMARY | 2025-06-23 12:17 | XMS_ITS | Clinical Summary ---
Author Organization [facility] Address [address] [place] [address] Care Team Providers Care Third Rigger Name Role Phone Unavailable Primary Care Provider Unavailabl e Allergies No known active allergies Medications MedicationSigDispense QuantityRefillsLast FilledStart DateEnd DateStatus atorvastatin (Lipitor) 80 MG tablet Take 80 mg by mouth in the eveningActive albuterol HFA 90 mcg/act inhaler INHALE 2 PUFFS BY MOUTH EVERY 6 HOURS NEEDED FOR WHEEZING OR SHORTNESS OF BREATHActive metFORMIN (Glucophage) 1000 MG tablet TAKE 1 TABLET BY MOUTH BEFORE BREAKFAST AND EVENING MEAL 90Active metoprolol succinate XL (Toprol-XL) 25 MG 24 hr tablet Take 25 mg by mouth DailyActive Ozempic, 1 MG/DOSE, 4 MG/3ML solution pen-injector INJECT 1MG SUBCUTANEOUSLY EVERY WEEK FOR 28 DAYS04/18/2024ctive predniSONE (Deltasone) 5 MG tablet 05/13/2024ctive meloxicam (Mobic) 15 MG tablet .XPHQMBY4412/03/2023ctive losartan (Cozaar) 25 MG tablet Take 25 mg by mouth DailyActive hydroxychloroquine (Plaquenil) 200 MG tablet TAKE 1 TABLET BY MOUTH TWICE DAILY WITH FOOD. REMEMBER YEARLY EYE EXAMActive Farxiga 10 MG Take 10 mg by mouth DailyActive Active Problems ProblemNoted DateDiagnosed DateAnarthritic rheumatoid disease (HHS-HCC)COVIDHigh blood pressureHigh cholesterolType 2 diabetes mellitus Social History Tobacco UseTypesPacks/DayYears UsedDateSmoking Tobacco: NeverSmokeless Tobacco: Never Tobacco Cessation:Counseling Given: Not Answered Alcohol UseStandard Drinks/WeekCommentsYes0 (1 standard drink = 0.6 oz pure alcohol)Sex and Gender InformationValueDate RecordedSex Assigned at BirthNot on fileLegal NizSqeg9011/13/2022 7:02 PM EDTGender IdentityNot on fileSexual OrientationNot on file Last Filed Vital Signs Vital SignReadingTime TakenCommentsBlood Efqlcjhs211/80005/17/2024 1:51 PM EDT Wrzmy63186/16/2024 1:51 PM EDTrepeat puls 96bpm cspphaBmhtcnyyqda58.6 ??C (97.8 ??F)05/17/2024 1:51 PM EDTRespiratory Adii643805/17/2024 1:51 PM EDTOxygen Vksuieegjd76%05/17/2024 1:51 PM EDTInhaled Oxygen Concentration--Ovjnty78.8 kg (198 lb)05/17/2024 1:51 PM EDTHeight--Body Mass Index-- Plan of Treatment Not on file Insurance
--- OUTSIDE RECORDS SUMMARY | 2025-06-23 12:19 | XMS_ITS | CCD ---
Author Organization [facility] Care Team Providers Care Endodontist Name Role Phone Vernon Greene Unavailable VERNON [...] Nascimento Unavailable DO Erickson Nascimento Attending Provider [phone] DO Vernon Greene Primary Care Provider Navneet Puga Unavailable Asaad, Imad Unavailable DO Vernon Greene Primary Care Provider MD Carlos Guzmán Attending Provider ANGELES PAYAN Attending Unavailable ANGELES PAYAN Referring Unavailable Unavailable Primary Care Provider Unavailchase e Vernon Greene DO Primary Care Provider Carlos Guzmán MD Attending Provider Carlos Guzmán Admitting Unavailable Vernon Greene Primary Care Unavailable Carlos Guzmán Attending Unavailable Jc, Vernon Primary Care Unavailable Carlos Guzmán Attending Unavailable Carlos Guzmán Admitting Unavailable Vernon Greene Primary Care Unavailable Carlos Guzmán Attending Unavailable Carlos Guzmán Admitting Unavailable Vernon Greene DO Primary Care Provider Dorys Freeman APRN Attending Provider Vernon Greene DO Attending Provider Medications Current Medications MedicationDrug Class(es)DatesSig (Normalized)Sig (Original)Accu-Chek Nury Plus - (20 sources)Accu-Chek Nury Plus - USE 1 STRIP TO TEST BLOOD SUGAR ONCE EVERY DAY for 90 [id number] 200 actuat albuterol 0.09 mg/actuat metered dose inhaler (20 sources)beta2-Adrenergic AgonistStart: 12-22-2023 End: 28-96-6279igqg 2 puff(s) by mouth every six hours as needed for wheezing Albuterol Sulfate 90 mcg/actuation HFA aerosol inhaler Active 0 .ROUTE .COMPLEX 8.5 May 4:32pm INHALE 2 PUFFS BY MOUTH EVERY 6 HOURS NEEDED FOR WHEEZING OR SHORTNESS OF BREATH Complies with drug therapyStart: 12-22-2023 End: 09-35-0853frfu 1 puff(s) by inhalation every six hours as needed for wheezingAlbuterol Sulfate 90 mcg/actuation HFA aerosol inhaler Discontinued 2 PUFF INHALATION Every 6 hoursas needed for shortness of breath or wheezing December 22, 2023 12:00am December 22, 2023 4:50pmStart: 38-47-9683jzwy 2 puff(s) by inhalation every six hours as needed for wheezingAlbuterol Sulfate HFA 108 (90 Base) MCG/ACT 2 puffs Inhalation every 6 hours as needed for wheezingor shortness of breathe Sep, Activetake 2 puff(s) by mouth every six hours as needed for wheezingalbuterol HFA 90 mcg/act inhaler INHALE 2 PUFFS BY MOUTH EVERY 6 HOURS NEEDED FOR WHEEZING OR SHORTNESS OF BREATH Activealendronic acid 70 mg oral tablet (1 source)BisphosphonateStart: 42-41-8679jhrh 1 tablet by mouth every week Alendronate 70 mg tablet Active 70 MG PO every week 4 28 Jennifer 17th, 2025 12:00am Complies with drug therapyaspirin 81 mg oral tablet (10 sources)Platelet Aggregation Inhibitor, Nonsteroidal Anti-inflammatory Drug Start: 45-61-2171odfd 1 capsule by mouth once dailyAspirin 81 mg Capsule Active 81 MG PO Daily July 04, 2023 12:00am Complies with drug therapyatorvastatin 80 mg oral tablet (20 sources)HMG-CoA Reductase InhibitorStart: 12-19-2023 End: 90-04-9703ffzg 1 tablet by mouth once daily in the eveningAtorvastatin 80 mg tablet Active 0 .ROUTE .COMPLEX December 14, 2024 10:01pm TAKE 1 TABLET BY MOUTH EVERY DAY IN THE EVENING Complies with drug therapyStart: 07-04-2023 End: 61-80-3540jfvr 1 tablet by mouth once dailyAtorvastatin 80 mg tablet Discontinued 80 MG PO Daily July 04, 2023 12:00am December 19, 2023 1:34pm dapagliflozin 10 mg oral tablet (20 sources)Sodium-Glucose Cotransporter 2 InhibitorStart: 06-66-8543qote 1 tablet by mouth once dailyDapagliflozin Propanediol (Farxiga) 10 mg tablet Active 0 .ROUTE .COMPLEX June 21, 2024 10:43am TAKE 1 TABLET BY MOUTH EVERY DAY Complies with drug therapyStart: 07-04-2023 End: 28-62-2557tzfs 1 tablet by mouth once dailyDapagliflozin Propanediol (Farxiga) 10 mg tablet Discontinued 10 MG PO Daily July 04, 2023 12:00am June 21, 2024 10:43amhydroxychloroquine sulfate 200 mg oral tablet (9 sources)Antimalarial, Antirheumatic AgentStart: 17-11-2421skcg 1 tablet by mouth once dailyHydroxychloroquine (Plaquenil) 200 mg tablet Active 200 MG PO Daily December 01, 2023 12:00am Complies with drug therapytake 1 tablet by mouth twice daily at mealtimehydroxychloroquine (Plaquenil) 200 MG tablet TAKE 1 TABLET BY MOUTH TWICE DAILY WITH FOOD. REMEMBERYEARLY EYE EXAM Activelosartan potassium 25 mg oral tablet (20 sources)Angiotensin 2 Receptor BlockerStart: 58-44-8215ghdq 1 tablet by mouth once dailyLosartan 25 mg tablet Active 0 .ROUTE .COMPLEX June 21, 2024 10:43am TAKE 1 TABLET BY MOUTHEVERY DAY Complies with drug therapyStart: 07-04-2023 End: 97-68-1494lvnl 1 tablet by mouth once dailyLosartan 25 mg tablet Discontinued 25 MG PO Daily July 04, 2023 12:00am June 21, 2024 10:4 3ammetFORMIN hydrochloride 1000 mg oral tablet (20 sources)BiguanideStart: 80-01-9784rdyn 1 tablet by mouth before breakfast Metformin 1,000 mg tablet Active 0 .ROUTE .COMPLEX 180 June 21, 2024 10:43am TAKE 1 TABLET BY MOUTH BEFORE BREAKFAST AND EVENING MEAL 90 Complies with drug therapyStart: 07-04-2023 End: 49-22-0617phvd 1 tablet by mouth once dailyMetformin 1,000 mg tablet Discontinued 1000 MG PO Daily July 04, 2023 12:00am June 21, 2024 10:43am24 hr metoprolol succinate 25 mg extended release oral tablet (20 sources)beta-Adrenergic BlockerStart: 45-91-6117lbfq 1 tablet by mouth once dailyMetoprolol Succinate 25 mg tablet extended release 24 hr Active 0 .ROUTE .COMPLEX 90 June 21, 2024 10:43am TAKE 1 TABLET BY MOUTH EVERY DAY Complies with drug therapyStart: 07-04-2023 End: 35-63-3003yiwa 1 tablet by mouth once dailyMetoprolol Succinate 25 mg tablet extended release 24 hr Discontinued 25 MG PO Daily July 04, 2023 12:00am June 21, 2024 10:43ammoxifloxacin 5 mg/ml ophthalmic solution (1 source)Quinolone AntimicrobialStart: 06-11-2930Gbmaphankumz 0.5 % drops Active DROPS OPHTHALMIC May 30, 2025 12:00am Complies with drug therapy mycophenolate mofetil 500 mg oral tablet (4 sources)Start: 41-41-1223uqxr 1 tablet by mouth twice dailyMycophenolate Mofetil (Cellcept) 500 mg tablet Active 500 MG PO Twice daily 60 June 24, 2024 12:00am Complies with drug therapynitroglycerin 0.4 mg sublingual tablet (20 sources)Nitrate VasodilatorStart: 07-04-2023 End: 80-96-3989oqkl 1 tablet under the tongue once daily as needed for pain Nitroglycerin 0.4 mg tablet, sublingual Active 0.4 MG SUBLINGUAL Daily as needed for Chest Pain August 11, 2024 6:39pm pt has never used Complies with drug therapyNitroglycerin 0.4 MG 1 tablet Sublingual PRN Activeomeprazole 20 mg delayed release oral tablet (15 sources)Proton Pump InhibitorStart: 97-58-8302qmpr 1 tablet by mouth once dailyOmeprazole 20 mg Tablet,Delayed Release (Dr/Ec) Active 20 MG PO Daily July 04, 2023 12:00am Complies with drug therapyStart: 13-67-7168wmmk 1 capsule by mouth once dailyOmeprazole 40 MG 1 capsule 30 minutes before morning meal Orally Once a day for 30 days Oct, ActiveOzempic, 1 MG/DOSE, 4 MG/3ML solution pen-injector (2 sources)Start: 79-77-7105rfvozp 1 mg by subcutaneous injection every week Ozempic, 1 MG/DOSE, 4 MG/3ML solution pen-injector INJECT 1MG SUBCUTANEOUSLY EVERY WEEK FOR 28 DAYS04/18/2024 ActivepredniSONE 5 mg oral tablet (6 sources)Start: 22-30-0996jasp 1 tablet by mouth every other dayPrednisone 5 mg tablet Active 5 MG PO .QOD September 24, 2024 1:00am Complies with drug therapyStart: 79-77-8714wihzkjHXRQ (Deltasone) 5 MG tablet 05/13/2024 Active Semaglutide (14 sources)Start: 29-16-4939vnbiit 1 mg by subcutaneous injection every week Semaglutide (Ozempic) 1 mg/dose (4 mg/3 mL) pen injector Active 1 MG SUBCUT every week 3 April 11, 2025 12:46pm Complies with drug therapyStart: 09-03-2024 End: 48-34-7157hkghor 1 mg by subcutaneous injection every weekSemaglutide (Ozempic) 1 mg/dose (4 mg/3 mL) pen injector Discontinued 1 MG SUBCUT every week 3 September 03, 2024 2:11pm April 11, 2025 12:46pmStart: 94-46-5905ukkxbw 1 mg by subcutaneous injection every weekSemaglutide (Ozempic) 1 mg/dose (4 mg/3 mL) pen injector Active 1 MG SUBCUT every week 3 2024 2:11pm Start: 28-64-5307snlzxi 1 mg by subcutaneous injection every weekSemaglutide (Ozempic) 1 mg/dose (4 mg/3 mL) pen injector Active 1 MG SUBCUT every week 3 2024 1:11pmStart: 07-19-2024 End: 37-01-4275xmtudp 1 mg by subcutaneous injection every weekSemaglutide (Ozempic) 1 mg/dose (4 mg/3 mL) pen injector Discontinued 1 MG SUBCUT every week 3 July 19, 2024 9:57pm September 03, 2024 2:11pmStart: 07-19-2024 End: 11-15-9087eafynv 1 mg by subcutaneous injection every weekSemaglutide (Ozempic) 1 mg/dose (4 mg/3 mL) pen injector Discontinued 1 MG SUBCUT every week 3 July 19, 2024 8:57pm September 03, 2024 1:11pmStart: 01-28-2024 End: 64-97-2080hcjynm 1 mg by subcutaneous injection every weekSemaglutide (Ozempic) 1 mg/dose (4 mg/3 mL) pen injector Discontinued 1 MG SUBCUT every week 3 January 28, 2024 12:00am July 19, 2024 9:58pmStart: 01-28-2024 End: 56-27-5881cknito 1 mg by subcutaneous injection every weekSemaglutide (Ozempic) 1 mg/dose (4 mg/3 mL) pen injector Discontinued 1 MG SUBCUT every week 3 January 27, 2024 11:00pm July 19, 2024 8:58pmStart: 23-77-4894crfqmx 1 mg by subcutaneous injection every weekSemaglutide (Ozempic) 1 mg/dose (4 mg/3 mL) pen injector Active 1 MG SUBCUT every week 3 January 28, 2024 12:00am Completed/Discontinued Medications MedicationDrug Class(es)DatesSig (Normalized)Sig (Original)Dulaglutide (20 sources)GLP-1 Receptor AgonistStart: 07-04-2023 End: 83-85-1730Wbfptqqcfro (Trulicity) 3 mg/0.5 mL pen injector Discontinued 3 MG SUBCUT every week July 04, 2023 12:00am January 28, 2024 5:52pmTrulicity 3 MG/0.5ML INJECT 1 PEN SUBCUTANEOUSLY ONCE A WEEK ActiveTrulicity 3 MG/0.5ML as directed Subcutaneous ActiveDulaglutide (Trulicity) 3 mg/0.5 mL pen injector (9 sources)Start: 07-04-2023 End: 98-01-2762Dbhrulguprk (Trulicity) 3 mg/0.5 mL pen injector Discontinued 3 MG SUBCUT every week July 03, 2023 11:00pm January 28, 2024 4:52pmStart: 07-04-2023 End: 66-89-9862Jxkxqrzdyoq (Trulicity) 3 mg/0.5 mL pen injector Discontinued 3 MG SUBCUT every week July 04, 2023 12:00am January 28, 2024 5:52pmStart: 05-05-8733Zbogompwpmd (Trulicity) 3 mg/0.5 mL pen injector Active 3 MG SUBCUT every week July 03, 2023 11:00pmStart: 77-19-0146Opxsvmjmffc (Trulicity) 3 mg/0.5 mL pen injector Active 3 MG SUBCUT every week July 04, 2023 12:00am meloxicam 15 mg oral tablet (20 sources)Nonsteroidal Anti-inflammatory DrugStart: 12-03-2023 End: 18-70-8641wibi 1 tablet by mouth once dailyMeloxicam 15 mg tablet Discontinued 0 .ROUTE .COMPLEX December 03, 2023 9:57am May 26, 2024 1:31pm TAKE 1 TABLET BY MOUTH EVERY DAYStart: 10-20-2023 End: 24-75-6599mipc 1 tablet by mouth once dailyMeloxicam 15 mg tablet Discontinued 15 MG PO Daily November 03, 2023 6:58pm December 03, 2023 9:58am traMADol hydrochloride 50 mg oral tablet (13 sources)Opioid AgonistStart: 11-05-2024 End: 14-59-5892vhue 1 tablet by mouth every eight hours as needed for pain Tramadol 50 mg tablet Discontinued 50 MG PO Every 8 hours as needed for pain 21 03May 30, 2025 11:43am May 30, 2025 11:44amStart: 07-04-2023 End: 31-70-9031jihc 1 tablet by mouth every four hours as needed for pain Tramadol 50 mg tablet Discontinued 50 MG PO Q4H as needed for pain 10 7 July 04, 2023 12:00am May 26, 2024 1:32pm Problems Active Problems Problem ClassificationProblemDateDocumented DateEpisodic/ChronicAbdominal pain (2 sources)Epigastric painEpisodicCardiac dysrhythmias (13 sources)Tachycardia, unspecified; Translations: [Sinus tachycardia]Episodic Chronic obstructive pulmonary disease and bronchiectasis (20 sources)Acute exacerbation of chronic obstructive airways disease; Translations: [Chronic obstructive pulmonary disease with (acute) exacerbation] ChronicCoronary atherosclerosis and other heart disease (20 sources)Coronary arteriosclerosis; Translations: [Atherosclerotic heart disease of [place] coronary artery without angina pectoris]ChronicDiabetes mellitus with complications (20 sources)Polyneuropathy due to type 2 diabetes mellitus; Translations: [Type 2 diabetes mellitus with diabetic polyneuropathy]Onset: 12-94-1088Xouuibr Diabetes mellitus without complication (2 sources)Type 2 diabetes mellitus; Translations: [Type 2 diabetes mellitus without complications]70-48-0505EnslnpiLpsjryupn of lipid metabolism (20 sources)Pure hypercholesterolemia; Translations: [Familial hypercholesterolemia]Onset: 34-92-4508KhgfddoVfphdiovcz disorders (20 sources)Gastro-esophageal reflux disease with esophagitis; Translations: [Gastroesophageal reflux disease with esophagitis without hemorrhage]01-19-2025 ChronicEssential hypertension (20 sources)Essential hypertension; Translations: [Essential (primary) hypertension]Onset: 45-93-2326XhrqyauHoeqmbjaaix of prostate (20 sources)Lower urinary tract symptoms due to benign prostatic hypertrophy; Translations: [Benign prostatic hyperplasia with lower urinary tract symptoms] ChronicOther aftercare (20 sources)H/O: high risk medication; Translations: [Other mcfp (current) drug therapy]EpisodicOther aftercare (2 sources)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; Translations: [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 INSOLE MACHINE CURRENT DRUG THERAPY]Onset: 14-95-4562MetwgzgdJxmpc connective tissue disease (2 sources)Disorder of connective tissue; Translations: [Polymyalgia rheumatica] 10-64-0657GwaxozvJfwuu connective tissue disease (3 sources)Olecranon bursitis, left elbowEpisodicOther gastrointestinal disorders (20 sources)Intra-abdominal and pelvic swelling, mass and lump; Translations: [Intra-abdominal and pelvic swelling, mass and lump, unspecified site]Episodic Other gastrointestinal disorders (2 sources)Other dysphagiaEpisodicOther liver diseases (4 sources)Non-alcoholic fatty liver; Translations: [Fatty (change of) liver, not elsewhere classified]ChronicOther liver diseases (20 sources)Fatty (change of) liver, not elsewhere classified; Translations: [Nonalcoholic fatty liver disease]ChronicOther liver diseases (2 sources)Abnormal levels of other serum enzymesEpisodicOther lower respiratory disease (13 sources)Interstitial lung disease; Translations: [Interstitial pulmonary disease, unspecified]13-37-5090XibveloEvqyaod on above:CT chest: interstitial changes, pulmonary fibrosis - T chest: interstitial changes, pulmonary fibrosis - 04/2024,CT chest: peripheral fibrosis - 10/2024Other lower respiratory disease (9 sources)Interstitial pulmonary disease, unspecified; Translations: [Postinflammatory pulmonary fibrosis]ChronicOther lower respiratory disease (6 sources)Fibrosis of lung; Translations: [Pulmonary fibrosis, unspecified] 32-14-7764DaktrmnNuzeb lower respiratory disease (12 sources)Hypoxemia; Translations: [Hypoxemia]EpisodicOther lower respiratory disease (10 sources)Hypoxia; Translations: [Hypoxemia]05-52-3979SlpcenfkFijkp nervous system disorders (20 sources)Chronic pain; Translations: [Other chronic pain]ChronicOther nervous system disorders (1 source)Other chronic painChronicOther non-traumatic joint disorders (5 sources)Pain in left knee; Translations: [PAIN IN LEFT KNEE]Onset: 11-25-2022 EpisodicOther non-traumatic joint disorders (2 sources)Pain in left elbowEpisodicOther nutritional; endocrine; and metabolic disorders (3 sources)Abnormal weight lossEpisodicOther screening for suspected conditions (not mental disorders or infectious disease) (11 sources)Encounter for screening for malignant neoplasm of prostate; Translations: [Encounter for screening for malignant neoplasm of colon]Onset: 22-96-4816EqeziwvxJppkrri on above:PSA: 0.9 - Jun 2024,Other skin disorders (1 source)Localized swelling, mass and lump, unspecifiedEpisodicOther skin disorders (1 source)Localized swelling, mass and lump, left upper limbEpisodicOther skin disorders (10 sources)Localized swelling, mass and lump, unspecified upper limb; Translations: [Elbow mass]09-91-8475AaklychmVyghq upper respiratory disease (20 sources)Bleeding from nose; Translations: [Epistaxis]EpisodicRespiratory failure; insufficiency; arrest (adult) (2 sources)Dependence on supplemental oxygen; Translations: [Dependence on supplemental oxygen]38-11-0550NqzolgmTlroolckrc arthritis and related disease (20 sources)Inflammatory polyarthropathy; Translations: [Inflammatory polyarthropathy]Onset: 012589-85-9486HxdgakyUnerlhbdmfy; intervertebral disc disorders; other back problems (20 sources)Lumbar spondylosis; Translations: [Spondylosis without myelopathy or radiculopathy, lumbar region]ChronicSpondylosis; intervertebral disc disorders; other back problems (8 sources)Low back pain; Translations: [Low back pain]12-06-8051Fapaosbi Substance-related disorders (20 sources)Tobacco user; Translations: [Nicotine dependence, cigarettes, in remission]ChronicSystemic lupus erythematosus and connective tissue disorders (1 source)Systemic involvement of connective tissue, unspecified; Translations: [Systemic involvement of connective tissue, unspecified]Onset: 92-63-1434Nzdaqly Viral infection (12 sources)COVID-19; Translations: [Pneumonia due to COVID-19 virus]10-18-2023 Episodic Past or Other Problems Problem ClassificationProblemDateDocumented DateEpisodic/ChronicEsophageal disorders (5 sources)Esophageal disordersOther connective tissue disease (1 source)Pain in right hand; Translations: [Pain in right hand]Onset: 20-00-6019OdymoualTghpv fractures (2 sources)Closed fracture of multiple left ribs; Translations: [Multiple fractures of ribs, left side, initial encounter for closed fracture]05-17-2024 EpisodicOther lower respiratory disease (2 sources)Rib pain; Translations: [Pleurodynia]22-64-8639BhxsfkpzOazmoatug (except that caused by tuberculosis or sexually transmitted disease) (3 sources)Pneumonia (except that caused by tuberculosis or sexually transmitted disease)Viral infection (2 sources)COVID-19 Results Test NameValueInterpretationReference RangeFacilityBasophils Auto (Bld) [#/Vol] Ordered By: Dorys Freeman on 97-92-4925Kzpeyibvj (Bld) [#/Vol]0.0 10 3/uL 0.0-0.1FSamaritan HospitalBasophils/100 WBC Auto (Bld)Ordered By: Dorys Freeman on 68-81-2451Zodwfwuay/100 WBC (Bld)0.4 %0.2-2.0[facility] CenterEosinophils/100 WBC Auto (Bld)Ordered By: Dorys Freeman on 35-46-7440Nwltzmlvasj/100 WBC (Bld)1.6 %0.9-7.0[facility] CenterErythrocyte distribution width Auto (RBC) [Ratio]Ordered By: Dorys Freeman on 96-36-8721Xqhppbetxiu distribution width (RBC) [Ratio]13.7 % 11.0-15.0[facility] CenterGlobulin Calc (S) [Mass/Vol]Ordered By: Dorys Freeman on 54-31-5127Pdzxesvr (S) [Mass/Vol]4.4 g/dLMercy Health Springfield Regional Medical CenterGlomerular filtration rate (GFR) estimation in non- AmericanOrdered By: Dorys Freeman on 94-54-4514SVS/1.73 sq M.predicted among non-blacks MDRD (S/P/Bld) [Vol rate/Area]55 mL/min/{1.73_m2}Low>=60 mL/min/1.73m 2FSamaritan HospitalHematocrit Auto (Bld) [Volume fraction]Ordered By: Dorys Freeman on 97-18-1005Wiyslrgoka (Bld) [Volume fraction]41.6 %Low42.0-54.0[facility] CenterHemoglobin [Mass/volume] in BloodOrdered By: Dorys Freeman on 19-48-0385Lclpfldosa (Bld) [Mass/Vol]14.1 g/dL14.0-18.0[facility] CenterLaboratory - Chemistry and Chemistry - challengeOrdered By: Dorys Freeman on 03-29-2025 Albumin [Mass/Vol]3.6 g/dL3.4-5.0[facility] CenterALP [Catalytic activity/Vol]76 U/G71-932XnquqzbmoMercy Health [facility] Regional Medical CenterALT [Catalytic activity/Vol]25 U/V21-70NxprbqmtnMercy Health [facility] Medical CenterAST [Catalytic activity/Vol]15 U/B58-96QolntpdffMercy Health [facility] Medical CenterBilirubin [Mass/Vol]0.6 mg/dL0.2-1.0[facility] CenterCalcium [Mass/Vol]9.5 mg/dL 8.5-10.1FSamaritan HospitalChloride [Moles/Vol]99 mmol/L98-107 [facility] CenterCO2 [Moles/Vol]28.9 mmol/L21.0-32.0[facility] CenterCreatinine [Mass/Vol]1.28 mg/dL0.70-1.30[facility] CenterGFR/1.73 sq M.predicted MDRD (S/P/Bld) [Vol rate/Area] mL/min/{1.73_m2}>=60 mL/min/1.73m 2FSamaritan HospitalGlucose [Mass/Vol]179 mg/dTKtrs05-668ItcnuzmukMercy Health [facility] Medical CenterPotassium [Moles/Vol]4.1 mmol/L3.5-5.1FSamaritan HospitalProtein [Mass/Vol] 8.0 g/dL6.4-8.2FRegency Hospital Companyodium [Moles/Vol]139 mmol/L 136-145[facility] CenterUrea nitrogen [Mass/Vol]14.0 mg/dL 7.0-18.0[facility] CenterUrea nitrogen/Creatinine [Mass ratio] 10.9 mg/mgMercy Health [facility] Regional Medical CenterLaboratory - Hematology and Cell countsOrdered By: Dorys Freeman on 72-26-5396ZEG (Bld) [Velocity]31 mm/hHigh <=20[facility] CenterImmature granulocytes/100 WBC (Bld)0.2 % 0.0-0.5FSamaritan HospitalLeukocytes [#/volume] corrected for nucleated erythrocytes in Blood by Automated counOrdered By: Dorys Freeman on 75-58-5301KOD corrected for nucl RBC Auto (Bld) [#/Vol]9.2 10 3/uL4.0-11.0 [facility] CenterLymphocytes Auto (Bld) [#/Vol]Ordered By: Dorys Freeman on 13-97-1869Dgynzrixnyp (Bld) [#/Vol]1.7 10 3/uL1.2-3.8[facility] CenterLymphocytes/100 WBC Auto (Bld)Ordered By: Dorys Freeman on 77-42-0714Matqsaftbry/100 WBC (Bld)19.0 %Low20.5-60.0[facility] Auto (RBC) [Entitic mass]Ordered By: Dorys Freeman on 09-13-4062VOK (RBC) [Entitic mass]31.3 pg25.9-34.0[facility] CenterMCHC Auto (RBC) [Mass/Vol]Ordered By: Dorys Freeman on 29-45-0951ZUQF (RBC) [Mass/Vol]33.9 g/dL29.9-35.2FSamaritan HospitalMCV Auto (RBC) [Entitic vol]Ordered By: Dorys Freeman on 54-14-9955ACE (RBC) [Entitic vol]92.2 fL80.0-94.0[facility] CenterMonocytes Auto (Bld) [#/Vol]Ordered By: Dorys Freeman on 52-09-4787Ylstwjffy (Bld) [#/Vol]0.6 10 3/uL0.3-0.8[facility] CenterMonocytes/100 WBC Auto (Bld)Ordered By: Dorys Freeman on 56-96-1992Wfbkrvjfq/100 WBC (Bld)6.4 %1.7-12.0[facility] CenterNeutrophils Auto (Bld) [#/Vol]Ordered By: Dorys Freeman on 09-22-9132Jvcckkhwyrp (Bld) [#/Vol]6.6 10 3/uLHigh1.4-6.5FSamaritan HospitalNeutrophils/100 WBC Auto (Bld)Ordered By: Dorys Freeman on 94-91-9534Ltcrjjalrsb/100 WBC (Bld)72.4 %43.0-75.0[facility] CenterNo Panel InformationOrdered By: Dorys Freeman on 05-26-8912Mkdwxtpogei # (Auto)0.2 10 3/uL0.0-0.7FSamaritan HospitalImmature Granulocyte # (Auto)0.02 10 3/uL0.00-0.03[facility] CenterPlatelet mean volume Auto (Bld) [Entitic vol]Ordered By: Dorys Freeman on 57-51-1929Eiyunkqs mean volume (Bld) [Entitic vol]9.8 fL9.5-13.5FSamaritan Hospital Platelets Auto (Bld) [#/Vol]Ordered By: Dorys Freeman on 45-81-9946Pqiwrruiz (Bld) [#/Vol]273 10 3/sK371-124TkwatlyrhMercy Health [facility] Regional Medical CenterRBC Auto (Bld) [#/Vol]Ordered By: Dorys Freeman on 21-71-0081SWU (Bld) [#/Vol]4.51 10 6/uLLow 4.70-6.10Doctors Hospitalerum or plasma albumin/globulin mass ratioOrdered By: Dorys Freeman on 53-38-2110Gtcskvd/Globulin [Mass ratio]0.8 {ratio}Doctors Hospitalerum or plasma anion gap determination Ordered By: Dorys Freeman on 95-43-6861Tfihj gap [Moles/Vol]15.2 mmol/L [facility] CenterAlanine aminotransferase [Enzymatic activity/volume] in Serum or PlasmaOrdered By: Carlos Guzmán on 72-82-0335NYP [Catalytic activity/Vol]Alanine aminotransferase [Enzymatic activity/volume] in Serum or Plasma7-[facility] CenterAlbumin [Mass/volume] in Serum or Plasma by Bromocresol green (BCG) dye binding methoOrdered By: Carlos Guzmán on 69-75-4446Jzqcsdj BCG dye [Mass/Vol]Albumin [Mass/volume] in Serum or Plasma by Bromocresol green (BCG) dye binding metho3.5-5.7FSamaritan HospitalAlkaline phosphatase [Enzymatic activity/volume] in Serum or PlasmaOrdered By: Carlos Guzmán on 44-50-3406VXY [Catalytic activity/Vol] Alkaline phosphatase [Enzymatic activity/volume] in Serum or Vpxcnk20-126 [facility] CenterAspartate aminotransferase [Enzymatic activity/volume] in Serum or PlasmaOrdered By: Carlos Guzmán on 71-10-5227IVR [Catalytic activity/Vol]Aspartate aminotransferase [Enzymatic activity/volume] in Serum or SgsvorGjy90-77KneddrfmrMercy Health Springfield Regional Medical CenterBasophils Auto (Bld) [#/Vol]Ordered By: Carlos Guzmán on 95-68-3708Zltbahxsf (Bld) [#/Vol]Automated basophil count0.0-0.2FSamaritan HospitalBasophils/100 WBC Auto (Bld)Ordered By: Carlos Guzmán on 10-29-5313Xkzyrekav/100 WBC (Bld)Automated basophil %.[facility] CenterBilirubin.direct [Mass/volume] in Serum or PlasmaOrdered By: Carlos Guzmán on 97-60-4758Dkcobzduu.direct [Mass/Vol]Bilirubin.direct [Mass/volume] in Serum or Plasma0.03-0.18FSamaritan HospitalBilirubin.total [Mass/volume] in Serum or PlasmaOrdered By: Carlos Guzmán on 49-09-4616Spcxxypid [Mass/Vol]Bilirubin.total [Mass/volume] in Serum or Plasma0.3-1.0[facility] CenterComplete Blood Count Auto Diffon 71-64-3915Gynboqknv (Bld) [#/Vol]0.1 10*3/uLNormal 0.0-0.2The [facility] Physician GroupComment on above:Performed By: #### HEPATIC, CBC, ESR, CREAT #### [facility] [address] [place] [address] USABasophils/100 WBC (Bld)0.8 %Normal.The [facility] Physician GroupComment on above:Performed By: #### HEPATIC, CBC, ESR, CREAT #### [place] [address] USAEosinophils (Bld) [#/Vol]0.2 10*3/uLNormal0.0-0.45The [facility] Physician GroupComment on above:Performed By: #### HEPATIC, CBC, ESR, CREAT #### [place] [address] USAEosinophils/100 WBC (Bld)2.0 %Normal.The [facility] Physician GroupComment on above:Performed By: #### HEPATIC, CBC, ESR, CREAT #### [place] [address] USAErythrocyte distribution width (RBC) [Ratio]14.8 %Normal 12.0-14.8The [facility] Physician GroupComment on above:Performed By: #### HEPATIC, CBC, ESR, CREAT #### [place] [address] USAHematocrit (Bld) [Volume fraction]41.0 %Bwabhl81.8-50.0The [facility] Physician GroupComment on above:Performed By: #### HEPATIC, CBC, ESR, CREAT #### [place] [address] USAHemoglobin (Bld) [Mass/Vol]14.2 g/dQPgikjl88.0-17.0The [facility] Physician GroupComment on above:Performed By: #### HEPATIC, CBC, ESR, CREAT #### [place] [address] USALymphocytes (Bld) [#/Vol]2.1 10*3/uLNormal1.00-4.8The [facility] Physician GroupComment on above:Performed By: #### HEPATIC, CBC, ESR, CREAT #### [place] [address] USALymphocytes/100 WBC (Bld)24.7 %Normal.The [facility] Physician GroupComment on above:Performed By: #### HEPATIC, CBC, ESR, CREAT #### [address]H (RBC) [Entitic mass]31.6 ndCvqqkp04.5-35.2The [facility] Physician GroupComment on above:Performed By: #### HEPATIC, CBC, ESR, CREAT #### [address]V (RBC) [Entitic vol]91.0 kPGsptuo13.5-101The [facility] Physician GroupComment on above:Performed By: #### HEPATIC, CBC, ESR, CREAT #### [place] [address] USAMean Corpuscular HGB Conc34.7 g/eLZnqgai53.5-35.6The [facility] Physician GroupComment on above:Performed By: #### HEPATIC, CBC, ESR, CREAT #### [place] [address] USAMonocytes (Bld) [#/Vol]0.7 10*3/uLNormal0.0-0.8The [facility] Physician GroupComment on above:Performed By: #### HEPATIC, CBC, ESR, CREAT #### [place] [address] USAMonocytes/100 WBC (Bld)8.6 %Normal.The [facility] Physician GroupComment on above:Performed By: #### HEPATIC, CBC, ESR, CREAT #### [place] [address] USANeutrophils (Bld) [#/Vol]5.5 10*3/uLNormal1.8-7.7The [facility] Physician GroupComment on above:Performed By: #### HEPATIC, CBC, ESR, CREAT #### [place] [address] USANeutrophils/100 WBC (Bld)63.9 %Normal.The [facility] Physician GroupComment on above:Performed By: #### HEPATIC, CBC, ESR, CREAT #### [place] [address] USANRBC%0.0 /100{WBC}Normal0-0.5The [facility] Comment on above:Performed By: #### HEPATIC, CBC, ESR, CREAT #### [place] [address] USAPlatelet mean volume (Bld) [Entitic vol]8.4 fLNormal 6.6-10.1The [facility] Physician GroupComment on above:Performed By: #### HEPATIC, CBC, ESR, CREAT #### [place] [address] USAPlatelets (Bld) [#/Vol]264 10*3/rCLimnkh174-082Jym [facility] Physician GroupComment on above:Performed By: #### HEPATIC, CBC, ESR, CREAT #### [place] [address] USARBC (Bld) [#/Vol]4.50 10*6/uLNormal3.90-5.60The [facility] Physician GroupComment on above:Performed By: #### HEPATIC, CBC, ESR, CREAT #### [place] [address] USAWBC (Bld) [#/Vol]8.6 10*3/uLNormal4.1-10.5The [facility] Physician GroupComment on above:Performed By: #### HEPATIC, CBC, ESR, CREAT #### [place] [address] USACreatinineon 42-39-5724Zlfivqjcls [Mass/Vol]0.81 mg/dL Normal0.70-1.30The [facility] Physician GroupComment on above:Performed By: #### HEPATIC, CBC, ESR, CREAT #### [place] [address] USAGFR/1.73 sq M.predicted MDRD (S/P/Bld) [Vol rate/Area] mL/min/{1.73_m2}NormalThe [facility] Physician GroupComment on above:Result Comment: PERFORMED BY: [address] [place] [id number] PATHOLOGIST SYSTEM SAFETY MANAGER KATHLEEN LIU M.D.Performed By: #### HEPATIC, CBC, ESR, CREAT #### [place] [id number] USACreatinine [Mass/volume] in Serum or PlasmaOrdered By: Carlos Guzmán on 29-79-1139Qyuygxmmku [Mass/Vol]Creatinine [Mass/volume] in Serum or Plasma0.70-1.30[facility] CenterEosinophils Auto (Bld) [#/Vol]Ordered By: Carlos Guzmán on 86-90-2796Glcmairumuk (Bld) [#/Vol] Automated eosinophil count0.0-0.45[facility] Eosinophils/100 WBC Auto (Bld)Ordered By: Carlos Guzmán on 11-17-2024 Eosinophils/100 WBC (Bld)Automated eosinophil %.[facility] CenterErythrocyte Sedimentation Rateon 39-73-4803KMP (Bld) [Velocity]20 mm/hHigh 0-The [facility] Physician GroupComment on above:Result Comment: PERFORMED BY: [place] [address] PATHOLOGIST SYSTEM SAFETY MANAGER KATHLEEN LIU M.D.Performed By: #### HEPATIC, CBC, ESR, CREAT #### [facility] [address] [place] [address] USAErythrocyte distribution width Auto (RBC) [Ratio]Ordered By: Carlos Guzmán on 40-15-5608Rqahfclzuof distribution width (RBC) [Ratio] Erythrocyte distribution width [Ratio] by Automated count12.0-14.8[facility] CenterErythrocyte sedimentation rate by Photometric method Ordered By: Carlos Guzmán on 91-01-4449ZTH Photometric method (Bld) [Velocity] Erythrocyte sedimentation rate by Photometric methodWelch Community Hospital0[facility] CenterGlobulin Calc (S) [Mass/Vol]Ordered By: Carlos Guzmán on 74-48-5864Paiegwov (S) [Mass/Vol]Serum globulin measurement by calculation (mass/volume)[facility] CenterHematocrit Auto (Bld) [Volume fraction]Ordered By: Carlos Guzmán on 99-45-5620Jwmsgwqfdz (Bld) [Volume fraction]Hematocrit [Volume Fraction] of Blood by Automated count38.8-50.0 [facility] CenterHemoglobin [Mass/volume] in BloodOrdered By: Carlos Guzmán on 32-87-4462Flxvbfzehs (Bld) [Mass/Vol]Hemoglobin [Mass/volume] in Blood13.0-17.0[facility] CenterHepatic Panelon 11-17-2024 Albumin [Mass/Vol]4.2 g/dLNormal3.5-5.7The [facility] Physician GroupComment on above:Performed By: #### HEPATIC, CBC, ESR, CREAT #### [facility] [address] [place] [address] USAAlbumin/Globulin [Mass ratio]1.3 {ratio}NormalThe [facility] Physician GroupComment on above:Performed By: #### HEPATIC, CBC, ESR, CREAT #### [facility] [address] [place] [id number] USAALP [Catalytic activity/Vol]62 U/VDvrwjt58-824Mea [facility] Physician GroupComment on above:Performed By: #### HEPATIC, CBC, ESR, CREAT #### [facility] [address] [place] [phone] USAALT [Catalytic activity/Vol]10 U/LNormal7-52The [facility] Physician GroupComment on above:Performed By: #### HEPATIC, CBC, ESR, CREAT #### [facility] [address] [place] [id number] USAAST [Catalytic activity/Vol]11 U/RJsu64-80Zhm [facility] Physician GroupComment on above:Performed By: #### HEPATIC, CBC, ESR, CREAT #### [facility] [address] [place] [phone] USABilirubin [Mass/Vol]0.7 mg/dLNormal0.3-1.0The [facility] Physician GroupComment on above:Performed By: #### HEPATIC, CBC, ESR, CREAT #### [facility] [address] [place] [address] USABilirubin,Indirect0.6 mg/dLNormHCA Florida [facility] Hospital Physician GroupComment on above:Performed By: #### HEPATIC, CBC, ESR, CREAT #### [facility] [address] [place] [address] USABilirubin.indirect [Mass/Vol]0.10 mg/dLNormal0.03-0.18The [facility] Physician GroupComment on above:Performed By: #### HEPATIC, CBC, ESR, CREAT #### [facility] [address] [place] [address] USAGlobulin (S) [Mass/Vol]3.3 g/dLNoECU Health Chow[facility] Hospital Physician [facility] Medical CenterComment on above:Performed By: #### HEPATIC, CBC, ESR, CREAT #### [facility] [address] [place] [address] USAProtein [Mass/Vol]7.5 g/dLNormal6.4-8.9The [facility] Physician GroupComment on above:Performed By: #### HEPATIC, CBC, ESR, CREAT #### [facility] [address] [place] [address] USALeukocytes [#/volume] corrected for nucleated erythrocytes in Blood by Automated counOrdered By: Carlos Guzmán on 48-96-7663QJK corrected for nucl RBC Auto (Bld) [#/Vol]Leukocytes [#/volume] corrected for nucleated erythrocytes in Blood by Automated coun4.1-10.5FSamaritan Hospital Lymphocytes Auto (Bld) [#/Vol]Ordered By: Carlos Guzmán on 11-17-2024 Lymphocytes (Bld) [#/Vol]Lymphocytes [#/volume] in Blood by Automated count 1.00-4.8[facility] CenterLymphocytes/100 WBC Auto (Bld)Ordered By: Carlos Guzmán on 95-31-1676Hilwpehzech/100 WBC (Bld)Lymphocytes/100 leukocytes in Blood by Automated count.[facility] Auto (RBC) [Entitic mass]Ordered By: Carlos Guzmán on 28-60-4855WJM (RBC) [Entitic mass]MCH [Entitic mass] by Automated count27.5-35.2FSamaritan HospitalMCHC Auto (RBC) [Mass/Vol]Ordered By: Carlos Guzmán on 70-63-3211GQXG (RBC) [Mass/Vol]MCHC [Mass/volume] by Automated count32.5-35.6FSamaritan HospitalMCV Auto (RBC) [Entitic vol]Ordered By: Carlos Guzmán on 89-35-7497HDM (RBC) [Entitic vol]MCV [Entitic volume] by Automated count83.5-101 [facility] CenterMonocytes Auto (Bld) [#/Vol]Ordered By: Carlos Guzmán on 05-19-0867Frrkqlmlf (Bld) [#/Vol]Automated blood monocyte count 0.0-0.8[facility] CenterMonocytes/100 WBC Auto (Bld)Ordered By: Carlos Guzmán on 38-82-5238Mebdzsndf/100 WBC (Bld)Automated monocyte %. [facility] CenterNeutrophils Auto (Bld) [#/Vol]Ordered By: Carlos Guzmán on 04-78-1941Wdozcdxystq (Bld) [#/Vol]Neutrophils [#/volume] in Blood by Automated count1.8-7.7FSamaritan HospitalNeutrophils/100 WBC Auto (Bld)Ordered By: Carlos Guzmán on 93-27-0443Qdctljgsypo/100 WBC (Bld) Automated neutrophil %.[facility] CenterNo Panel Information Ordered By: Carlos Guzmán on 98-06-7965Pjygjeivf GFR (CKD-EPI)> 60.0 mL/Min [facility] CenterPharmacy Creatinine Clearance (ChemN/AFSamaritan HospitalNucleated erythrocytes [Presence] in Blood by Automated countOrdered By: Carlos Guzmán on 28-89-5846Hiqigkixt RBC Auto Ql (Bld) Nucleated erythrocytes [Presence] in Blood by Automated count0-0.5FSamaritan HospitalPlatelet mean volume Auto (Bld) [Entitic vol]Ordered By: Carlos Guzmán on 83-25-0461Gzuuuduy mean volume (Bld) [Entitic vol]Platelet mean volume [Entitic volume] in Blood by Automated count6.6-10.1FSamaritan HospitalPlatelets Auto (Bld) [#/Vol]Ordered By: Carlos Guzmán on 70-14-8700Qvneqdukm (Bld) [#/Vol]Platelets [#/volume] in Blood by Automated izufg578-146RxxpaxeimMercy Health Springfield Regional Medical CenterProtein [Mass/volume] in Serum or PlasmaOrdered By: Carlos Guzmán on 97-42-1200Kdqnuwi [Mass/Vol]Protein [Mass/volume] in Serum or Plasma6.4-8.9[facility] CenterRBC Auto (Bld) [#/Vol]Ordered By: Carlos Guzmán on 37-89-3063ZSM (Bld) [#/Vol] Erythrocytes [#/volume] in Blood by Automated count3.90-5.60Doctors Hospitalerum or plasma albumin/globulin mass ratioOrdered By: Carlos Guzmán on 38-45-4357Manfemj/Globulin [Mass ratio]Serum or plasma albumin/globulin mass ratioDoctors Hospitalerum or plasma non- glucuronidated bilirubin measurement (mass/volume)Ordered By: Carlos Guzmán on 42-80-8216Nsyoiqniu.indirect [Mass/Vol]Serum or plasma non-glucuronidated bilirubin measurement (mass/volume)[facility] CenterWBC Auto (Bld) [#/Vol]Ordered By: Carlos Guzmán on 81-08-2440OGZ (Bld) [#/Vol]Leukocytes [#/volume] in Blood by Automated count4.1-10.5FSamaritan Hospital Basophils Auto (Bld) [#/Vol]on 84-94-8967Jajhrmqgw (Bld) [#/Vol]Automated basophil count0.0-0.1FSamaritan HospitalBasophils/100 WBC Auto (Bld)on 49-10-6758Ruafdmyqp/100 WBC (Bld)Automated basophil %0.2-2.0[facility] CenterEosinophils/100 WBC Auto (Bld)on 09-28-2024 Eosinophils/100 WBC (Bld)Automated eosinophil %0.9-7.0[facility] CenterErythrocyte distribution width Auto (RBC) [Ratio]on 18-63-6415Lfdvggqvlrs distribution width (RBC) [Ratio]Erythrocyte distribution width [Ratio] by Automated count11.0-15.0[facility] CenterEstimated glomerular filtration rate (GFR) non- Americanon 79-53-3422FBE/1.73 sq M.predicted among non-blacks MDRD (S/P/Bld) [Vol rate/Area]Estimated glomerular filtration rate (GFR) non->=60 mL/min/1.73m 2FSamaritan HospitalGlobulin Calc (S) [Mass/Vol]on 67-63-8034Umrtvrcf (S) [Mass/Vol]Serum globulin measurement by calculation (mass/volume)[facility] CenterGlucose mean value [Mass/volume] in Blood Estimated from glycated hemoglobinon 63-31-8614Warirrj glucose Estimated from glycated hemoglobin (Bld) [Mass/Vol]Glucose mean value [Mass/volume] in Blood Estimated from glycated hemoglobinMercy Health Springfield Regional Medical CenterHematocrit Auto (Bld) [Volume fraction]on 41-65-4717Xjozzusrzi (Bld) [Volume fraction]Hematocrit [Volume Fraction] of Blood by Automated count42.0-54.0[facility] Hemoglobin A1c percentageon 05-04-2126ShV8a (Bld) [Mass fraction]Hemoglobin A1c percentageHigh4.5-6.2FSamaritan HospitalComment on above:ADA RECOMMENDED LIMIT 4.0 - 6.0ADA THERAPEUTIC TARGET < 7.0ACTION SUGGESTED> 7.0 Hemoglobin [Mass/volume] in Bloodon 10-21-7209Ktopozmule (Bld) [Mass/Vol] Hemoglobin [Mass/volume] in Blood14.0-18.0[facility] Laboratory - Chemistry and Chemistry - challengeon 85-01-9126Bnebcye [Mass/Vol] 3.6 g/dL3.4-5.0[facility] CenterALP [Catalytic activity/Vol]72 U/C68-358YagdnrmrgMercy Health Springfield Regional Medical CenterALT [Catalytic activity/Vol]17 U/L 16-63[facility] CenterAST [Catalytic activity/Vol]10 U/INzx73-77 [facility] CenterBilirubin [Mass/Vol]0.5 mg/dL0.2-1.0[facility] CenterBilirubin.direct [Mass/Vol]0.1 mg/dL0.0-0.2FSamaritan HospitalCreatinine [Mass/Vol]1.12 mg/dL0.70-1.30[facility] CenterGFR/1.73 sq M.predicted MDRD (S/P/Bld) [Vol rate/Area] mL/min/{1.73_m2}>=60 mL/min/1.73m 2FSamaritan HospitalProtein [Mass/Vol]7.6 g/dL6.4-8.2FSamaritan HospitalLaboratory - Hematology and Cell countson 15-60-1557QBP (Bld) [Velocity]22 mm/hHigh<=20 [facility] CenterImmature granulocytes/100 WBC (Bld)0.2 %0.0-0.5 [facility] CenterLeukocytes [#/volume] corrected for nucleated erythrocytes in Blood by Automated counon 69-05-2679FPA corrected for nucl RBC Auto (Bld) [#/Vol]Leukocytes [#/volume] corrected for nucleated erythrocytes in Blood by Automated coun4.0-11.0[facility] Medical CenterLymphocytes Auto (Bld) [#/Vol]on 83-02-5030Srbzekvuvwt (Bld) [#/Vol]Lymphocytes [#/volume] in Blood by Automated count1.2-3.8[facility] CenterLymphocytes/100 WBC Auto (Bld)on 02-21-3965Eosslflrrvs/100 WBC (Bld)Lymphocytes/100 leukocytes in Blood by Automated jiyxsRuh71.5-60.0[facility] Medical CenterMCH Auto (RBC) [Entitic mass]on 77-52-6185AJW (RBC) [Entitic mass]MCH [Entitic mass] by Automated count25.9-34.0[facility] Medical CenterMCHC Auto (RBC) [Mass/Vol]on 94-39-2051JXML (RBC) [Mass/Vol]MCHC [Mass/volume] by Automated count29.9-35.2FSamaritan HospitalMCV Auto (RBC) [Entitic vol]on 64-06-1595BHQ (RBC) [Entitic vol]MCV [Entitic volume] by Automated count 80.0-94.0[facility] CenterMonocytes Auto (Bld) [#/Vol]on 03-33-6860Mqdwrakdh (Bld) [#/Vol]Automated blood monocyte count0.3-0.8[facility] CenterMonocytes/100 WBC Auto (Bld)on 27-75-6219Snzoycenj/100 WBC (Bld)Automated monocyte %1.7-12.0[facility] Neutrophils Auto (Bld) [#/Vol]on 65-09-3112Yptovtmcujm (Bld) [#/Vol]Neutrophils [#/volume] in Blood by Automated count1.4-6.5FSamaritan Hospital Neutrophils/100 WBC Auto (Bld)on 87-89-9558Dcpzcspjrer/100 WBC (Bld)Automated neutrophil %43.0-75.0[facility] CenterNo Panel Informationon 01-23-9702Bzbwrwjbjyj # (Auto)0.2 10 3/uL0.0-0.7FSamaritan HospitalImmature Granulocyte # (Auto)0.02 10 3/uL0.00-0.03[facility] Medical CenterPlatelet mean volume Auto (Bld) [Entitic vol]on 34-24-3818Ljfxxkfr mean volume (Bld) [Entitic vol]Platelet mean volume [Entitic volume] in Blood by Automated countLow9.5-13.5FSamaritan HospitalPlatelets Auto (Bld) [#/Vol]on 85-79-0747Trohfxruh (Bld) [#/Vol]Platelets [#/volume] in Blood by Automated -764YqnbvvplsMercy Health Springfield Regional Medical CenterRBC Auto (Bld) [#/Vol]on 23-34-0934GKD (Bld) [#/Vol]Erythrocytes [#/volume] in Blood by Automated count Low4.70-6.10Doctors Hospitalerum or plasma albumin/globulin mass ratioon 00-26-1964Uljegwk/Globulin [Mass ratio]Serum or plasma albumin/globulin mass ratioMercy Health Springfield Regional Medical CenterBasophils Auto (Bld) [#/Vol]on 35-10-8475Wkvzhpzii (Bld) [#/Vol]Automated basophil count0.0-0.1 [facility] CenterBasophils/100 WBC Auto (Bld)on 08-17-2024 Basophils/100 WBC (Bld)Automated basophil %0.2-2.0[facility] CenterEosinophils/100 WBC Auto (Bld)on 86-08-7582Vcqlcrbgvvr/100 WBC (Bld) Automated eosinophil %0.9-7.0[facility] CenterErythrocyte distribution width Auto (RBC) [Ratio]on 15-95-7428Qdmxouqhctf distribution width (RBC) [Ratio]Erythrocyte distribution width [Ratio] by Automated count11.0-15.0 [facility] CenterEstimated glomerular filtration rate (GFR) non- Americanon 06-60-7125BWU/1.73 sq M.predicted among non-blacks MDRD (S/P/Bld) [Vol rate/Area]Estimated glomerular filtration rate (GFR) non->=60 mL/min/1.73m 2FSamaritan HospitalHematocrit Auto (Bld) [Volume fraction]on 45-05-2293Dhabvstmyl (Bld) [Volume fraction]Hematocrit [Volume Fraction] of Blood by Automated rhmxbMzl19.0-54.0[facility] CenterHemoglobin [Mass/volume] in Bloodon 71-16-9383Jipslcplgb (Bld) [Mass/Vol]Hemoglobin [Mass/volume] in Blood14.0-18.0[facility] CenterLaboratory - Chemistry and Chemistry - challengeon 18-73-5341Sieorxm [Mass/Vol]3.4 g/dL3.4-5.0[facility] CenterALP [Catalytic activity/Vol]72 U/C31-145PrlxyhsmiMercy Health [facility] Regional Medical CenterALT [Catalytic activity/Vol]16 U/H59-43UapswunkeMercy Health [facility] Regional Medical CenterAST [Catalytic activity/Vol]11 U/VEgz32-42ElvnskrxmMercy Health Springfield Regional Medical CenterBilirubin [Mass/Vol] 0.6 mg/dL0.2-1.0[facility] CenterCreatinine [Mass/Vol]1.17 mg/dL 0.70-1.30[facility] CenterGFR/1.73 sq M.predicted MDRD (S/P/Bld) [Vol rate/Area]mL/min/{1.73_m2}>=60 mL/min/1.73m 2FSamaritan HospitalLaboratory - Hematology and Cell countson 96-94-0821ZJC (Bld) [Velocity]21 mm/hHigh<=20[facility] CenterImmature granulocytes/100 WBC (Bld)0.2 %0.0-0.5FSamaritan HospitalLeukocytes [#/volume] corrected for nucleated erythrocytes in Blood by Automated counon 39-37-6238YUR corrected for nucl RBC Auto (Bld) [#/Vol]Leukocytes [#/volume] corrected for nucleated erythrocytes in Blood by Automated coun4.0-11.0[facility] CenterLymphocytes Auto (Bld) [#/Vol]on 46-96-2264Mynhnlpnwty (Bld) [#/Vol]Lymphocytes [#/volume] in Blood by Automated count1.2-3.8[facility] CenterLymphocytes/100 WBC Auto (Bld)on 08-17-2024 Lymphocytes/100 WBC (Bld)Lymphocytes/100 leukocytes in Blood by Automated count 20.5-60.0[facility] InstituteH Auto (RBC) [Entitic mass]on 47-70-5418HXS (RBC) [Entitic mass]MCH [Entitic mass] by Automated count25.9-34.0 [facility] CenterMCHC Auto (RBC) [Mass/Vol]on 26-05-7676IFWU (RBC) [Mass/Vol]MCHC [Mass/volume] by Automated count29.9-35.2FSamaritan HospitalMCV Auto (RBC) [Entitic vol]on 17-94-8168SPP (RBC) [Entitic vol] MCV [Entitic volume] by Automated count80.0-94.0[facility] CenterMonocytes Auto (Bld) [#/Vol]on 83-33-7282Ekdocqtyd (Bld) [#/Vol]Automated blood monocyte count0.3-0.8[facility] CenterMonocytes/100 WBC Auto (Bld)on 29-14-9422Qnhjtbxjq/100 WBC (Bld)Automated monocyte %1.7-12.0 [facility] CenterNeutrophils Auto (Bld) [#/Vol]on 08-17-2024 Neutrophils (Bld) [#/Vol]Neutrophils [#/volume] in Blood by Automated countHigh 1.4-6.5FSamaritan HospitalNeutrophils/100 WBC Auto (Bld)on 23-70-7173Hgiqrsnkvtp/100 WBC (Bld)Automated neutrophil %43.0-75.0[facility] CenterNo Panel Informationon 97-76-3974Zayhzgrufns # (Auto)0.2 10 3/uL0.0-0.7FSamaritan HospitalImmature Granulocyte # (Auto)0.02 10 3/uL0.00-0.03[facility] Medical CenterPlatelet mean volume Auto (Bld) [Entitic vol]on 62-89-2163Ozgklhvj mean volume (Bld) [Entitic vol]Platelet mean volume [Entitic volume] in Blood by Automated count9.5-13.5FSamaritan HospitalPlatelets Auto (Bld) [#/Vol]on 66-13-2305Gstitlcyq (Bld) [#/Vol]Platelets [#/volume] in Blood by Automated -667EtucscxchMercy Health [facility] Regional Medical CenterRBC Auto (Bld) [#/Vol]on 63-93-0462WTP (Bld) [#/Vol]Erythrocytes [#/volume] in Blood by Automated countLow4.70-6.10[facility] CenterBasophils Auto (Bld) [#/Vol]on 29-55-0777Hoyiocasi (Bld) [#/Vol]Automated basophil count0.0-0.1FSamaritan HospitalBasophils/100 WBC Auto (Bld)on 11-58-7323Rhirymcqf/100 WBC (Bld)Automated basophil %0.2-2.0[facility] CenterEosinophils/100 WBC Auto (Bld)on 08-03-2024 Eosinophils/100 WBC (Bld)Automated eosinophil %0.9-7.0[facility] CenterErythrocyte distribution width Auto (RBC) [Ratio]on 48-12-4610Vjaafcibmns distribution width (RBC) [Ratio]Erythrocyte distribution width [Ratio] by Automated count11.0-15.0[facility] CenterHematocrit Auto (Bld) [Volume fraction]on 25-65-9174Dvvyjqmvcx (Bld) [Volume fraction]Hematocrit [Volume Fraction] of Blood by Automated ddmykUec80.0-54.0[facility] [facility] CenterHemoglobin [Mass/volume] in Bloodon 97-74-1478Sezoyjozho (Bld) [Mass/Vol]Hemoglobin [Mass/volume] in YgvfcZqt76.0-18.0[facility] CenterLaboratory - Hematology and Cell countson 55-70-0523KHM (Bld) [Velocity]22 mm/hHigh<=20[facility] CenterImmature granulocytes/100 WBC (Bld)0.3 %0.0-0.5FSamaritan Hospital Leukocytes [#/volume] corrected for nucleated erythrocytes in Blood by Automated counon 41-48-8914HBL corrected for nucl RBC Auto (Bld) [#/Vol]Leukocytes [#/volume] corrected for nucleated erythrocytes in Blood by Automated coun 4.0-11.0[facility] CenterLymphocytes Auto (Bld) [#/Vol]on 90-71-6572Gpvwxirphfn (Bld) [#/Vol]Lymphocytes [#/volume] in Blood by Automated count1.2-3.8[facility] CenterLymphocytes/100 WBC Auto (Bld)on 75-53-3152Hmrhcfczebz/100 WBC (Bld)Lymphocytes/100 leukocytes in Blood by Automated count20.5-60.0[facility] CenterMCH Auto (RBC) [Entitic mass]on 42-28-1194MYP (RBC) [Entitic mass]MCH [Entitic mass] by Automated count 25.9-34.0[facility] CenterMCHC Auto (RBC) [Mass/Vol]on 73-56-9945UFNV (RBC) [Mass/Vol]MCHC [Mass/volume] by Automated count29.9-35.2 [facility] CenterMCV Auto (RBC) [Entitic vol]on 70-87-1913PRZ (RBC) [Entitic vol]MCV [Entitic volume] by Automated count80.0-94.0[facility] CenterMonocytes Auto (Bld) [#/Vol]on 58-48-3148Zsnrmfaru (Bld) [#/Vol]Automated blood monocyte count0.3-0.8[facility] Monocytes/100 WBC Auto (Bld)on 95-06-7984Fwcijokug/100 WBC (Bld)Automated monocyte %1.7-12.0[facility] CenterNeutrophils Auto (Bld) [#/Vol]on 88-36-2216Upvtqetaaop (Bld) [#/Vol]Neutrophils [#/volume] in Blood by Automated count1.4-6.5FSamaritan HospitalNeutrophils/100 WBC Auto (Bld)on 37-14-0462Nulikgrwcap/100 WBC (Bld)Automated neutrophil %43.0-75.0 [facility] CenterNo Panel Informationon 91-50-4122Puagvapnkbl # (Auto)0.1 10 3/uL0.0-0.7FSamaritan HospitalImmature Granulocyte # (Auto)0.03 10 3/uL0.00-0.03[facility] CenterPlatelet mean volume Auto (Bld) [Entitic vol]on 83-08-6340Mgmwhlnl mean volume (Bld) [Entitic vol] Platelet mean volume [Entitic volume] in Blood by Automated count9.5-13.5 [facility] CenterPlatelets Auto (Bld) [#/Vol]on 08-03-2024 Platelets (Bld) [#/Vol]Platelets [#/volume] in Blood by Automated ufknn455-425 [facility] CenterRBC Auto (Bld) [#/Vol]on 60-23-1871SDB (Bld) [#/Vol]Erythrocytes [#/volume] in Blood by Automated countLow4.70-6.10[facility] CenterBasophils Auto (Bld) [#/Vol]on 99-66-2760Ffhceytzc (Bld) [#/Vol]Automated basophil count0.0-0.1FSamaritan Hospital Basophils/100 WBC Auto (Bld)on 43-42-6287Tmdvkxnmy/100 WBC (Bld)Automated basophil %0.2-2.0[facility] CenterEosinophils/100 WBC Auto (Bld) on 57-77-6968Lklzzvgyfap/100 WBC (Bld)Automated eosinophil %0.9-7.0[facility] CenterErythrocyte distribution width Auto (RBC) [Ratio]on 96-90-8364Lquaxvgpabl distribution width (RBC) [Ratio]Erythrocyte distribution width [Ratio] by Automated count11.0-15.0[facility] Hematocrit Auto (Bld) [Volume fraction]on 72-35-2063Tadrogusgg (Bld) [Volume fraction]Hematocrit [Volume Fraction] of Blood by Automated cwdcnDuf68.0-54.0 [facility] CenterHemoglobin [Mass/volume] in Bloodon 07-15-2024 Hemoglobin (Bld) [Mass/Vol]Hemoglobin [Mass/volume] in Blood14.0-18.0[facility] CenterLaboratory - Hematology and Cell countson 07-15-2024 Immature granulocytes/100 WBC (Bld)0.2 %0.0-0.5FSamaritan Hospital Leukocytes [#/volume] corrected for nucleated erythrocytes in Blood by Automated counon 05-14-5683DJP corrected for nucl RBC Auto (Bld) [#/Vol]Leukocytes [#/volume] corrected for nucleated erythrocytes in Blood by Automated coun 4.0-11.0[facility] CenterLymphocytes Auto (Bld) [#/Vol]on 53-28-0043Lxtlfvimwow (Bld) [#/Vol]Lymphocytes [#/volume] in Blood by Automated count1.2-3.8[facility] CenterLymphocytes/100 WBC Auto (Bld)on 66-28-6812Nhbwuffivdk/100 WBC (Bld)Lymphocytes/100 leukocytes in Blood by Automated count20.5-60.0[facility] CenterMCH Auto (RBC) [Entitic mass]on 22-27-3391ATZ (RBC) [Entitic mass]MCH [Entitic mass] by Automated count 25.9-34.0[facility] CenterMCHC Auto (RBC) [Mass/Vol]on 92-82-6923DVCI (RBC) [Mass/Vol]MCHC [Mass/volume] by Automated countHigh 29.9-35.2FSamaritan HospitalMCV Auto (RBC) [Entitic vol]on 34-88-8626FUP (RBC) [Entitic vol]MCV [Entitic volume] by Automated count 80.0-94.0[facility] CenterMonocytes Auto (Bld) [#/Vol]on 79-77-0047Katwcttsg (Bld) [#/Vol]Automated blood monocyte countHigh0.3-0.8 [facility] CenterMonocytes/100 WBC Auto (Bld)on 07-15-2024 Monocytes/100 WBC (Bld)Automated monocyte %1.7-12.0[facility] CenterNeutrophils Auto (Bld) [#/Vol]on 66-56-0802Njrlyoqpzpj (Bld) [#/Vol] Neutrophils [#/volume] in Blood by Automated count1.4-6.5FSamaritan HospitalNeutrophils/100 WBC Auto (Bld)on 12-32-8644Bdlhpsuqqgr/100 WBC (Bld)Automated neutrophil %43.0-75.0[facility] CenterNo Panel Informationon 34-61-0323Weqnqftqfsv # (Auto)0.2 10 3/uL0.0-0.7FSamaritan HospitalImmature Granulocyte # (Auto)0.02 10 3/uL0.00-0.03[facility] CenterPlatelet mean volume Auto (Bld) [Entitic vol]on 62-47-3879Mnukmyze mean volume (Bld) [Entitic vol]Platelet mean volume [Entitic volume] in Blood by Automated count9.5-13.5FSamaritan Hospital Platelets Auto (Bld) [#/Vol]on 68-71-6539Koghfposf (Bld) [#/Vol]Platelets [#/volume] in Blood by Automated xipyq739-475YqebeictjMercy Health [facility] Center RBC Auto (Bld) [#/Vol]on 06-58-1139BRN (Bld) [#/Vol]Erythrocytes [#/volume] in Blood by Automated countLow4.70-6.10[facility] CenterBasophils Auto (Bld) [#/Vol]on 46-43-0472Arezffrpz (Bld) [#/Vol]Automated basophil count 0.0-0.1FSamaritan HospitalBasophils/100 WBC Auto (Bld)on 34-55-6131Feynswtcr/100 WBC (Bld)Automated basophil %0.2-2.0[facility] CenterEosinophils/100 WBC Auto (Bld)on 66-50-6320Ebfucymixzw/100 WBC (Bld)Automated eosinophil %0.9-7.0[facility] CenterErythrocyte distribution width Auto (RBC) [Ratio]on 82-12-5901Wepsygnglve distribution width (RBC) [Ratio]Erythrocyte distribution width [Ratio] by Automated count11.0-15.0 [facility] CenterEstimated glomerular filtration rate (GFR) non- Americanon 64-28-6667ECV/1.73 sq M.predicted among non-blacks MDRD (S/P/Bld) [Vol rate/Area]Estimated glomerular filtration rate (GFR) non- AmericanLow>=60 mL/min/1.73m 2FSamaritan HospitalHematocrit Auto (Bld) [Volume fraction]on 95-70-5518Sdfbsowrqe (Bld) [Volume fraction]Hematocrit [Volume Fraction] of Blood by Automated bbwozSdk97.0-54.0[facility] CenterHemoglobin [Mass/volume] in Bloodon 61-92-6804Qigxzgbpde (Bld) [Mass/Vol]Hemoglobin [Mass/volume] in Blood14.0-18.0[facility] CenterLaboratory - Chemistry and Chemistry - challengeon 93-03-2473Zifdplkzo Ql (U)NegativeNEGATIVEMercy Health [facility] CenterGlucose (U) [Mass/Vol]mg/dL AbnormalNEGATIVEMercy Health [facility] CenterKetones Ql (U)TRACE mg/dL AbnormalNEGATIVEMer[facility] CenterpH (U)5.5 [pH]5.0-9.0Doctors Hospitalpecific gravity (U) [Rel density]1.0251.005-1.025 [facility] CenterUrobilinogen Qn (U)0.2 {Denis'U}/dL0.2-1.0 [facility] CenterAlbumin [Mass/Vol]3.5 g/dL3.4-5.0[facility] CenterALP [Catalytic activity/Vol]81 U/I74-085BvrwuuhjoMercy Health [facility] Medical CenterALT [Catalytic activity/Vol]22 U/G75-26QdpbcpdcsMercy Health [facility] CenterAST [Catalytic activity/Vol]9 U/CGnd01-56HoquqmbuaMercy Health [facility] Medical CenterBilirubin [Mass/Vol]0.7 mg/dL0.2-1.0[facility] CenterCreatinine [Mass/Vol]1.21 mg/dL0.70-1.30[facility] GFR/1.73 sq M.predicted MDRD (S/P/Bld) [Vol rate/Area]mL/min/{1.73_m2}>=60 mL/min/1.73m 2FSamaritan HospitalLaboratory - Hematology and Cell countson 91-20-8248QTL (Bld) [Velocity]20 mm/h<=20[facility] CenterImmature granulocytes/100 WBC (Bld)0.2 %0.0-0.5FSamaritan HospitalLaboratory - Specimen informationon 25-56-2219Qalkjjyhis (U)CLEARCLEAR [facility] CenterColor (U)LT. YELLOWYELLOWMercy Health [facility] CenterLaboratory - Urinalysison 48-83-0048Smqqfcjok sediment LM Ql (Urine sed)RAREMercy Health [facility] Medical CenterLeukocyte esterase Test strip Ql (U)NegativeNEGATIVEMercy Health [facility] CenterMucus Ql (Urine sed)NONE SEENNONE SEENMer[facility] CenterNitrite Ql (U)NegativeNEGATIVE [facility] CenterProtein Ql (U)30 mg/dLAbnormalNEG/TRACE [facility] CenterLeukocytes [#/volume] corrected for nucleated erythrocytes in Blood by Automated counon 80-51-3251HFU corrected for nucl RBC Auto (Bld) [#/Vol]Leukocytes [#/volume] corrected for nucleated erythrocytes in Blood by Automated coun4.0-11.0[facility] CenterLymphocytes Auto (Bld) [#/Vol]on 77-00-5759Hraqqupqhkv (Bld) [#/Vol]Lymphocytes [#/volume] in Blood by Automated count1.2-3.8[facility] CenterLymphocytes/100 WBC Auto (Bld)on 47-39-6240Rnrxyacjyni/100 WBC (Bld)Lymphocytes/100 leukocytes in Blood by Automated count20.5-60.0[facility] InstituteH Auto (RBC) [Entitic mass]on 98-66-3455QMR (RBC) [Entitic mass]MCH [Entitic mass] by Automated count25.9-34.0[facility] CenterMCHC Auto (RBC) [Mass/Vol]on 05-96-9481IQEB (RBC) [Mass/Vol]MCHC [Mass/volume] by Automated count29.9-35.2FSamaritan HospitalMCV Auto (RBC) [Entitic vol]on 80-01-5061FZW (RBC) [Entitic vol]MCV [Entitic volume] by Automated count 80.0-94.0[facility] CenterMonocytes Auto (Bld) [#/Vol]on 58-02-0075Nfuocttbv (Bld) [#/Vol]Automated blood monocyte count0.3-0.8[facility] CenterMonocytes/100 WBC Auto (Bld)on 30-86-1652Fkhdpqtwd/100 WBC (Bld)Automated monocyte %1.7-12.0[facility] Neutrophils Auto (Bld) [#/Vol]on 16-49-0082Saoqxjojbzh (Bld) [#/Vol]Neutrophils [#/volume] in Blood by Automated count1.4-6.5FSamaritan Hospital Neutrophils/100 WBC Auto (Bld)on 83-37-3117Yhcpuvqvvzv/100 WBC (Bld)Automated neutrophil %43.0-75.0[facility] CenterNo Panel Informationon 19-80-1912Ujhyo BacteriaNONE SEEN #/HPFNONE SEENMercy Health [facility] Medical CenterUrine Occult BloodNegativeNEGATIVEMercy Health [facility] Medical CenterUrine Other CastsNONE SEEN #/LPFNONE SEENMercy Health [facility] CenterUrine Other CrystalsSeen #/HPFAbnormalNone SeenMercy Health [facility] Medical CenterUrine RBC NONE SEEN #/HPF0-2FSamaritan HospitalUrine Squamous Epithelial CellsNONE SEEN #/LPFNONE/RAREMercy [facility] CenterUrine WBCNONE SEEN #/HPFNONE SEENMercy Health [facility] Medical CenterC-Reactive Protein, Quantitative <0.50 mg/dL<=0.50[facility] CenterEosinophils # (Auto)0.1 10 3/uL0.0-0.7FSamaritan HospitalImmature Granulocyte # (Auto)0.02 10 3/uL0.00-0.03[facility] CenterPlatelet mean volume Auto (Bld) [Entitic vol]on 43-46-2401Gmqricls mean volume (Bld) [Entitic vol]Platelet mean volume [Entitic volume] in Blood by Automated count9.5-13.5FSamaritan HospitalPlatelets Auto (Bld) [#/Vol]on 31-23-5132Qmruucgny (Bld) [#/Vol] Platelets [#/volume] in Blood by Automated lelrb167-447WnwvhfhcaMercy Health [facility] Regional Medical CenterRBC Auto (Bld) [#/Vol]on 37-02-8389LUC (Bld) [#/Vol]Erythrocytes [#/volume] in Blood by Automated countLow4.70-6.10[facility] CenterBasophils Auto (Bld) [#/Vol]on 04-39-1162Ivakckiug (Bld) [#/Vol]Automated basophil count0.0-0.1FSamaritan HospitalBasophils/100 WBC Auto (Bld)on 11-02-5932Rxqtrjscx/100 WBC (Bld)Automated basophil %0.2-2.0[facility] CenterEosinophils/100 WBC Auto (Bld)on 07-01-2024 Eosinophils/100 WBC (Bld)Automated eosinophil %0.9-7.0[facility] CenterErythrocyte distribution width Auto (RBC) [Ratio]on 33-35-5626Gnjqgkzpmyr distribution width (RBC) [Ratio]Erythrocyte distribution width [Ratio] by Automated count11.0-15.0[facility] CenterHematocrit Auto (Bld) [Volume fraction]on 12-93-9255Ngrzmnlazx (Bld) [Volume fraction]Hematocrit [Volume Fraction] of Blood by Automated ksryzYue65.0-54.0[facility] CenterHemoglobin [Mass/volume] in Bloodon 30-44-4837Dgaxbwkkgl (Bld) [Mass/Vol]Hemoglobin [Mass/volume] in MhjbhNft32.0-18.0[facility] CenterLaboratory - Hematology and Cell countson 25-47-9294Ljtyjtdy granulocytes/100 WBC (Bld)0.2 %0.0-0.5FSamaritan Hospital Leukocytes [#/volume] corrected for nucleated erythrocytes in Blood by Automated counon 73-79-8638IOD corrected for nucl RBC Auto (Bld) [#/Vol]Leukocytes [#/volume] corrected for nucleated erythrocytes in Blood by Automated coun 4.0-11.0[facility] CenterLymphocytes Auto (Bld) [#/Vol]on 39-43-3126Yoihinfiamq (Bld) [#/Vol]Lymphocytes [#/volume] in Blood by Automated count1.2-3.8[facility] CenterLymphocytes/100 WBC Auto (Bld)on 34-17-4353Tjarjrmipun/100 WBC (Bld)Lymphocytes/100 leukocytes in Blood by Automated count20.5-60.0[facility] CenterMCH Auto (RBC) [Entitic mass]on 30-54-8936FHT (RBC) [Entitic mass]MCH [Entitic mass] by Automated count 25.9-34.0[facility] CenterMCHC Auto (RBC) [Mass/Vol]on 62-78-3410ERBW (RBC) [Mass/Vol]MCHC [Mass/volume] by Automated count29.9-35.2 [facility] CenterMCV Auto (RBC) [Entitic vol]on 68-76-7299BEK (RBC) [Entitic vol]MCV [Entitic volume] by Automated vldfbEqju02.0-94.0[facility] CenterMonocytes Auto (Bld) [#/Vol]on 45-46-7388Xunoxivsz (Bld) [#/Vol]Automated blood monocyte count0.3-0.8[facility] Monocytes/100 WBC Auto (Bld)on 68-16-1873Exszrcmph/100 WBC (Bld)Automated monocyte %1.7-12.0[facility] CenterNeutrophils Auto (Bld) [#/Vol]on 53-82-7543Tpmpqahkqlb (Bld) [#/Vol]Neutrophils [#/volume] in Blood by Automated countHigh1.4-6.5FSamaritan HospitalNeutrophils/100 WBC Auto (Bld)on 57-43-2410Xzrtnazfcgc/100 WBC (Bld)Automated neutrophil %43.0-75.0 [facility] CenterNo Panel Informationon 26-17-8595Gacgbwwwpwl # (Auto)0.1 10 3/uL0.0-0.7FSamaritan HospitalImmature Granulocyte # (Auto)0.02 10 3/uL0.00-0.03[facility] CenterPlatelet mean volume Auto (Bld) [Entitic vol]on 09-47-6814Vqejtbre mean volume (Bld) [Entitic vol] Platelet mean volume [Entitic volume] in Blood by Automated countLow9.5-13.5 [facility] CenterPlatelets Auto (Bld) [#/Vol]on 07-01-2024 Platelets (Bld) [#/Vol]Platelets [#/volume] in Blood by Automated uiggr407-962 [facility] CenterRBC Auto (Bld) [#/Vol]on 17-71-8846BHB (Bld) [#/Vol]Erythrocytes [#/volume] in Blood by Automated countLow4.70-6.10[facility] CenterXR RIBS 2 VIEWS LEFT WITH CHEST ANTEROPOSTERIORon 12-77-9210GX RIBS 2 VIEWS LEFT WITH CHEST ANTEROPOSTERIORTITLE OF EXAM: XR - RIBS UNILAT W [...] radiologist. Electronically Signed Tereso Kauffman M.D. 2024-05-17 12:47:15NormalNot AvailableXR Ribs Views and Chest PAon 05-17-2024 TITLE [...] Electronically Signed Tereso Kauffman M.D. 2024-05-17 12:47:15 Elizabeth Catherine MD - 05/17/2024 TITLE OF EXAM: XR [...] Electronically Signed Tereso Kauffman M.D. 2024-05-17 12:47:15 [facility] HealthcareRadiology Study observation (narrative)[facility] HealthcareXR Ribs Views and Chest PAOrdered By: Elizabeth Kauffman on 49-57-4045X[facility] Work Phone: Hemoglobin [Mass/volume] in Bloodon 03-11-2024 Hemoglobin (Bld) [Mass/Vol]13.7 g/dLLow14.0-18.0[facility] CenterQuantiFERON TB Goldon 36-59-4616GBRV CriteriaNormal.[facility] Physician GroupComment on above:Result Comment: QuantiFERON-TB Gold Plus is a qualitative indirect test for M tuberculosis infection (including disease) and is intended for use in conjunction with risk assessment, radiography, and other medical and diagnostic evaluations. The QuantiFERON-TB Gold Plus result is determined by subtracting the Nil value from either TB antigen (Ag) value. The Mitogen tube serves as a control for the test.Performed By: #### QUANT TB #### [facility] ,Quant TB Ag Value0.02Normal.[facility] Physician GroupComment on above: Performed By: #### QUANT TB #### [facility] ,Quant TB Gold PlusNegativeNormalNegativeThe [facility] Physician GroupComment on above:Result Comment: No response to M tuberculosis antigens detected. Infection with [...] interferon gamma. Chemiluminescence immunoassay methodology Performed at: [facility] [id number] Counter Control Operator: Krunal Nichols PhD, Phone: [phone] PERFORMED BY: [address] [place] [address] PATHOLOGIST SYSTEM SAFETY MANAGER ADELFO RAMIREZ M.D.Performed By: #### QUANT TB #### [facility] ,Quant TB2 Ag Value0.02Normal.[facility] Physician GroupComment on above: Performed By: #### QUANT TB #### [facility] ,Quantiferon Nil Value0.02Normal.[facility] Physician GroupComment on above: Performed By: #### QUANT TB #### [facility] ,Quantiferon TB Mitogen>10.00Normal.[facility] Physician GroupComment on above:Performed By: #### QUANT TB #### [facility] ,Glucose mean value [Mass/volume] in Blood Estimated from glycated hemoglobinon 32-03-0107Wwnirwb glucose Estimated from glycated hemoglobin (Bld) [Mass/Vol]134 mg/dLMercy Health Springfield Regional Medical CenterLaboratory - Hematology and Cell countson 14-10-9675DfA8j (Bld) [Mass fraction]6.3 %4.5-6.2FSamaritan HospitalComment on above:ADA RECOMMENDED LIMIT 4.0 - 6.0ADA THERAPEUTIC TARGET < 7.0ACTION SUGGESTED> 7.0XR knee BI 2Von 31-41-0131XO knee BI 2VH[facility] [place] [address] XRay Report Signed Patient: Mariano Gutierrez MR#: [id number] : 1950 Acct:[id number] Age/Sex: 73 / M ADM Date: 12/09/23 Loc: ICXD Room: Type: [facility] Attending Dr: Carlos Guzmán MD Copies to: Carlos Guzmán MD Ordering Provider: Carlos Guzmán MD Date of Service: 12/09/23 XR/XR hand BI 2V: HAND PAIN ([id number]) XR/XR knee BI 2V: KNEE PAIN 2 [...] Gregory Schmidt M.D.12/09/2023 4:00 PM Dictation Location: [place] [address] Transcribed By: [facility] 12/09/23 1600 Dictated By: Gregory Schmidt DO 12/09/23 1556 Signed By: 12/09/[address] [facility] Physician GroupAlanine aminotransferase [Enzymatic activity/volume] in Serum or PlasmaOrdered By: Carlos Guzmán on 46-23-2523HDP [Catalytic activity/Vol]11 U/L7-52[facility] CenterAlbumin [Mass/volume] in Serum or PlasmaOrdered By: Carlos Guzmán on 28-10-7606Vvxjchu [Mass/Vol]3.5 g/dL2.9-4.4FSamaritan Hospital Albumin [Mass/volume] in Serum or Plasma by Bromocresol green (BCG) dye binding methoOrdered By: Carlos Guzmán on 07-40-2849Tvdafeb BCG dye [Mass/Vol]3.8 g/dL 3.5-5.7FSamaritan HospitalAlbumin/Protein.total in 24 hour Urine by ElectrophoresisOrdered By: Carlos Guzmán on 42-17-1490Vxczibm Elph (24H U) [Mass fraction]50.7 %.[facility] CenterAlkaline phosphatase [Enzymatic activity/volume] in Serum or PlasmaOrdered By: Carlos Guzmán on 51-22-6858OYT [Catalytic activity/Vol]98 U/T51-197PmbglounsMercy Health [facility] Medical CenterAspartate aminotransferase [Enzymatic activity/volume] in Serum or Plasma Ordered By: Carlos Guzmán on 71-09-3896OLX [Catalytic activity/Vol]15 U/L13-39 [facility] CenterAutomated erythrocytes count in urine sediment (number/area)Ordered By: Carlos Guzmán on 46-79-4714FJK Auto (Urine sed) [#/Area]None seen [HPF]0-4FSamaritan HospitalAutomated leukocytes count in urine sediment (number/area)Ordered By: Carlos Guzmán on 34-60-4368BBK Auto (Urine sed) [#/Area]0-1 [HPF]0-4FSamaritan HospitalBasophils Auto (Bld) [#/Vol]Ordered By: Carlos Guzmán on 75-68-3457Eqlcqyaaw (Bld) [#/Vol]0.1 10*3/uL0.0-0.2FSamaritan HospitalBasophils/100 WBC Auto (Bld)Ordered By: Carlos Guzmán on 81-76-2188Ufzhurlsk/100 WBC (Bld)1.1 %. [facility] CenterBilirubin Test strip Ql (U)Ordered By: Carlos Guzmán on 79-59-7941Fvhoeqljw Ql (U)NegativeNegativeMercy Health Springfield Regional Medical CenterBilirubin.total [Mass/volume] in Serum or PlasmaOrdered By: Carlos Guzmán on 51-48-5942Ujpktvhle [Mass/Vol]0.6 mg/dL0.3-1.0[facility] CenterC reactive protein [Mass/volume] in Serum or PlasmaOrdered By: Carlos Guzmán on 77-11-7614UBZ [Mass/Vol]0.6 mg/dL0.0-0.5FSamaritan HospitalCalcium [Mass/volume] in Serum or PlasmaOrdered By: Carlos Guzmán on 19-06-3571Ntzlygb [Mass/Vol]9.4 mg/dL8.6-10.3FSamaritan Hospital Carbon dioxide, total [Moles/volume] in Serum or PlasmaOrdered By: Carlos Guzmán on 55-10-3922EO1 [Moles/Vol]28.5 mmol/L21.0-31.0[facility] CenterChloride [Moles/volume] in Serum or PlasmaOrdered By: Carlos Guzmán 16-85-3132Jacmpxhk [Moles/Vol]99 mmol/L96-879ZevuetxjmMercy Health Springfield Regional Medical CenterColor Auto (U)Ordered By: Carlos Guzmán on 63-23-8321Ystlu (U) YellowYellowMercy Health Springfield Regional Medical CenterCreatinine [Mass/volume] in Serum or PlasmaOrdered By: Carlos Guzmán on 63-35-2728Bqgqrfrrmw [Mass/Vol]0.73 mg/dL 0.70-1.30[facility] CenterEosinophils Auto (Bld) [#/Vol]Ordered By: Carlos Guzmán on 36-53-8816Hjvaglwmysx (Bld) [#/Vol]0.2 10*3/uL0.0-0.45 [facility] CenterEosinophils/100 WBC Auto (Bld)Ordered By: Carlos Guzmán on 66-69-5667Pdwqqkjovng/100 WBC (Bld)2.0 %.[facility] CenterErythrocyte distribution width Auto (RBC) [Ratio]Ordered By: Carlos Guzmán on 33-06-0144Memwhnudemb distribution width (RBC) [Ratio]15.0 % 12.0-14.8[facility] CenterErythrocyte sedimentation rate by Photometric methodOrdered By: Carlos Guzmán on 31-57-0661VQE Photometric method (Bld) [Velocity]72 mm/hr0-19[facility] CenterGamma globulin/Protein.total in 24 hour Urine by ElectrophoresisOrdered By: Carlos Guzmán on 06-95-2741Osnww globulin Elph (24H U) [Mass fraction]20.1 %.[facility] CenterGlucose [Mass/volume] in Serum or PlasmaOrdered By: Carlos Guzmán on 44-13-7826Qcnqimb [Mass/Vol]105 mg/bD47-505FulgphrunMercy Health Springfield Regional Medical CenterComment on above:ADA recommended reference rangeRandom Glucose Reference Range is dependent on time and content of last meal. Glucose of more than 200 mg/dL in a nonstressed, ambulatory subject supports the diagnosisof Diabetes Mellitus.Hematocrit Auto (Bld) [Volume fraction]Ordered By: Carlos Guzmán on 18-72-9943Ghaikjavbc (Bld) [Volume fraction]38.8 %38.8-50.0[facility] CenterHemoglobin [Mass/volume] in BloodOrdered By: Carlos Guzmán on 82-64-1545Vihuyynayw (Bld) [Mass/Vol]13.3 g/dL13.0-17.0[facility] CenterHepatitis B virus surface Ab [Presence] in SerumOrdered By: Carlos Guzmán on 72-91-8190VHG surface Ab Ql (S)Non-Reactive.[facility] CenterComment on above:Non Reactive: Inconsistent with immunity, less than 10 mIU/mL Reactive: Consistent with immunity, greater than 9.9 mIU/mLHepatitis B virus surface Ag [Presence] in Serum or Plasma by ImmunoassayOrdered By: Carlos Guzmán on 91-02-9568XGZ surface Ag IA QlNegative NegativeMercy Health [facility] Medical CenterHepatitis C virus IgG Ab [Presence] in Serum or Plasma by ImmunoassayOrdered By: Carlos Guzmán on 22-07-1340WZB IgG IA QlNon-ReactiveNon ReactiveMercy Health [facility] Medical CenterIgA [Mass/volume] in Serum or PlasmaOrdered By: Carlos Guzmán on 65-26-5108RsZ [Mass/Vol]399 mg/dL 61-437[facility] CenterIgG [Mass/volume] in Serum or Plasma Ordered By: Carlos Guzmán on 41-72-6257EiD [Mass/Vol]2589 mg/wA696-6954 [facility] CenterIgM [Mass/volume] in Serum or PlasmaOrdered By: Carlos Guzmán on 51-22-5263WlL [Mass/Vol]217 mg/oK02-735HvntdipotMercy Health Springfield Regional Medical CenterComment on above:Performed at: [facility] [address] [id number] Director: Krunal Nichols PhD, Phone: [phone] Immunofixation for UrineOrdered By: Carlos Guzmán on 52-75-0264Zqfaswfdwbijyf Immunofixation (U) [Interp]Comment:.[facility] Medical CenterComment on above:Presence of monoclonal protein is unclear at this time. Suggestrepeat in 3 to 6 months if clinically indicated.Performed at: [facility] [address] [id number] Director: Krunal Nichols PhD, Phone: [phone] light chains.kappa.free [Mass/volume] in SerumOrdered By: Carlos Guzmán on 62-61-9862Vqkmnldwxdkhvz light chains.kappa.free (S) [Mass/Vol]127.8 mg/L3.3-19.4FSamaritan HospitalImmunoglobulin light chains.kappa.free/Immunoglobulin light chains.lambda.free [MassOrdered By: Carlos Guzmán on 90-95-6817Ijbeteojaaoxuf light chains.kappa.free/Immunoglobulin light chains.lambda.free (S) [Mass ratio]0.75 0.26-1.65[facility] CenterComment on above:Performed at: - [facility] [id number] Director: Krunal Nichols PhD, Phone: [phone] light chains.lambda.free [Mass/volume] in Serum or PlasmaOrdered By: Carlos Guzmán on 11-24-2023 Immunoglobulin light chains.lambda.free [Mass/Vol]171.2 mg/L5.7-26.3FSamaritan HospitalKetones Auto test strip (U) [Mass/Vol]Ordered By: Carlos Guzmán on 60-94-1230Hwunaxr (U) [Mass/Vol]TraceNegativeMercy Health [facility] Medical CenterLaboratory - UrinalysisOrdered By: Carlos Guzmán on 11-24-2023 Hyaline casts LM Ql (Urine sed)0-8 [LPF]0-8[facility] Leukocytes [#/volume] corrected for nucleated erythrocytes in Blood by Automated counOrdered By: Carlos Guzmán on 36-64-6441AKO corrected for nucl RBC Auto (Bld) [#/Vol]8.9 10*3/uL4.1-10.5FSamaritan HospitalLymphocytes Auto (Bld) [#/Vol]Ordered By: Carlos Guzmán on 02-81-1514Kidbvnnffgq (Bld) [#/Vol]2.5 10*3/uL1.00-4.8[facility] CenterLymphocytes/100 WBC Auto (Bld)Ordered By: Carlos Guzmán on 77-06-3170Wtsgecmffkt/100 WBC (Bld)28.6 %.[facility] CenterMC Auto (RBC) [Entitic mass]Ordered By: Carlos Guzmán on 70-31-7880DNH (RBC) [Entitic mass]30.0 pg27.5-35.2FSamaritan HospitalMCHC Auto (RBC) [Mass/Vol]Ordered By: Carlos Guzmán on 80-49-8912HNZE (RBC) [Mass/Vol]34.4 g/dL32.5-35.6FSamaritan HospitalMCV Auto (RBC) [Entitic vol]Ordered By: Carlos Guzmán on 33-03-3693GON (RBC) [Entitic vol]87.1 fL83.5-101[facility] CenterMonocytes Auto (Bld) [#/Vol]Ordered By: Carlos Guzmán on 07-01-8868Etoisxwqb (Bld) [#/Vol]0.7 10*3/uL0.0-0.8[facility] CenterMonocytes/100 WBC Auto (Bld)Ordered By: Carlos Guzmán on 13-21-9903Ajnjjxzhe/100 WBC (Bld)7.8 %. [facility] CenterMyeloperoxidase Ab [Units/volume] in Serum by ImmunoassayOrdered By: Carlos Guzmán on 12-18-9580Nijdmnqjfnwrjdc Ab IA Qn (S) 1.8 units0.0-0.9[facility] CenterNeutrophil cytoplasmic Ab.perinuclear.atypical [Titer] in Serum by ImmunofluorescenceOrdered By: Carlos Guzmán on 11-72-3812Ptomdjhusj cytoplasmic Ab.perinuclear.atypical IF (S) [Titer]<1:20 titerNeg:<1:20[facility] CenterComment on above:The atypical pANCA pattern has been observed in asignificant percentage of patients with ulcerativecolitis,primary sclerosing cholangitis and autoimmune hepatitis.Performed at: - [facility] [id number] Director: Blanca Olmedo MD, Phone: [phone] at: [facility] [id number] Director: Krunal Nichols PhD, Phone: [phone] Auto (Bld) [#/Vol]Ordered By: Carlos Guzmán on 49-10-0526Qiycnwtxdcd (Bld) [#/Vol]5.4 10*3/uL1.8-7.7FSamaritan HospitalNeutrophils/100 WBC Auto (Bld)Ordered By: Carlos Guzmán on 36-72-3998Ksfltedrvvv/100 WBC (Bld)60.5 %.[facility] Nitrite Test strip Ql (U)Ordered By: Carlos Guzmán on 19-73-2474Jfvrszj Ql (U) NegativeNegativeMercy Health Springfield Regional Medical CenterNo Panel InformationOrdered By: Carlos Guzmán on 79-10-8378Kvgn-Nuclear Antibody Comment 2See comment. [facility] CenterComment on above:Pattern Potential Disease Association Homo geneous Systemic Lupus Erythematosus, Drug Induced Systemic Lupus Erythematosus, Chronic Autoimmunehepatitis, Juvenile Idiopathic Arthritis Speckled Sjogren Syndrome, Systemic Lupus Erythematosus, Subacute Cutaneous Lupus, Lupus, Congenital Heart Block, Mixed Connective Tissue Disease, Scleroderma-diffuse, Scleroderma- Autoimmune Myositis Overlap Syndrome, Systemic Lupus Wupafxctwpnkj-Qvgewvzfmgf-Thgoqxpwba Myositis Overlap Syndrome, Systemic Autoimmune Rheumatic Disease, Undifferentiated Connective Tissue Disease Nucleolar Systemic Sclerosis, Scleroderma-Autoimmune Myositis Overlap Syndrome, Sjogren Syndrome, Raynaud phenomenon, Pulmonary Arterial Hypertension, Systemic Autoimmune Rheumatic Disease, Cancer Centromere Scleroderma-CREST, Limited Cutaneous SSc, Raynaud's Phenomenon, Primary Biliary Cholangit is Nuclear Dot Primary Biliary Cholangitis Nuclear Primary Biliary Cholangitis, AutoimmuneMembrane Hepatitis/Liver disease, Systemic Autoimmune Rheumatic Disease, Autoimmune Cytopenias, Linear Scleroderma, Antiphospholipid Syndrome Performed at: [facility] [address] [id number] Director: Krunal Nichols PhD, Phone: [phone] GFR (CKD-EPI)> 60.0 mL/MinMercy Health Springfield Regional Medical CenterHepatijefferson memorial hospital B Core Total AntibodyNegativeNegativeMercy Health Springfield [facility] Medical CenterComment on above:Performed at: [facility] [address] [id number] Director: Krunal Nichols PhD, Phone: [phone] C [facility] Hospitalee comment.[facility] CenterComment on above:Not infected with HCV unless early or acute infection issuspected (which may be delayed in an immunocompromisedindividual), or other evidence exists to indicate HCVinfection.Perinuclear ANCA (p-ANCA) Antibody<1:20 titerNeg:<1:20[facility] CenterComment on above:The presence of positive fluorescence exhibiting P-ANCA orC-ANCA patterns alone is not specific forthe diagnosis ofWegener's Granulomatosis (WG) or microscopic polyangiitis.Decisions about treatmentshould not be based solely onANCA IFA results. The International ANCA Group Consensusrecommends follow up testing of positive sera with both MO-3 and MPO-ANCA enzyme immunoassays. As many as 5% serumsamples are positive only by EIA. Ref. AM J Clin Yssjuk4154;111:507-513. Pharmacy Creatinine Clearance (ChemN/AFSamaritan HospitalProtein Electrophoresis M-SpikeNot observed g/dLNot ObservedMercy Health Springfield [facility] Medical CenterProtein Electrophoresis NoteSee comment.[facility] Comment on above:Protein electrophoresis scan will follow via computer,mail, or pediatric audiologist delivery.Performed at: [facility] [id number] Director: Krunal Nichols PhD, Phone: [phone] ImmunofixationSee comment.[facility] CenterComment on above:No monoclonality detected.Total Complement (CH50)51 U/mL>41[facility] CenterComment on above:Age Male Female 1 - 30 days Not Estab. Not Estab. 31 days - 6 months >32 >20 7 months - 17 years >39 >39 >17 years >41 >41 NOTE: The adult ( >17 years ) reference intervalrange is used to flag abnormals on this report. If the patient is 17 years old or younger, use the t able above to determine out of range values.Performed at: [facility] [id number] Director: Krunal Nichols PhD, Phone: [phone] Random Prot Electrophor NoteSee comment.[facility] CenterComment on above:Protein electrophoresis scan will follow via computer,mail, or pediatric audiologist delivery.Nucleated erythrocytes [Presence] in Blood by Automated countOrdered By: Carlos Guzmán on 12-53-6898Czubevfjn RBC Auto Ql (Bld)0.0 /100{WBC}0-0.5FSamaritan HospitalPlatelet mean volume Auto (Bld) [Entitic vol]Ordered By: Carlos Guzmán on 19-63-1782Wyoqpyrj mean volume (Bld) [Entitic vol]7.9 fL6.6-10.1FSamaritan Hospital Platelets Auto (Bld) [#/Vol]Ordered By: Carlos Guzmán on 93-03-8908Hhnembsgz (Bld) [#/Vol]369 10*3/tL223-966NuuatkyxmMercy Health Springfield Regional Medical CenterPotassium [Moles/volume] in Serum or PlasmaOrdered By: Carlos Guzmán on 11-24-2023 Potassium [Moles/Vol]4.3 mmol/L3.5-5.1FSamaritan HospitalProtein Auto test strip (U) [Mass/Vol]Ordered By: Carlos Guzmán on 97-50-5677Xntppit (U) [Mass/Vol]30 mg/dLNegativeMercy Health Springfield Regional Medical CenterProtein [Mass/volume] in Serum or PlasmaOrdered By: Carlos Guzmán on 59-38-8315Zudhbpl [Mass/Vol]8.2 g/dL6.4-8.9[facility] CenterProtein [Mass/Vol]7.9 g/dL6.0-8.5FSamaritan HospitalProtein [Mass/volume] in Urine Ordered By: Carlos Guzmán on 05-26-3352Xjfjoje (U) [Mass/Vol]40.0 mg/dLNot Estab.[facility] CenterProtein.monoclonal/Protein.total in 24 hour Urine by ElectrophoresisOrdered By: Carlos Guzmán on 11-24-2023 Protein.monoclonal Elph (24H U) [Mass fraction]Not observed %Not Observed [facility] CenterProteinase 3 Ab [Units/volume] in Serum by ImmunoassayOrdered By: Carlos Guzmán on 67-17-4598Jdxsklzngq 3 Ab IA Qn (S)<0.2 units0.0-0.9[facility] CenterRBC Auto (Bld) [#/Vol]Ordered By: Carlos Guzmán on 34-10-7138KRO (Bld) [#/Vol]4.45 10*6/uL3.90-5.60Doctors Hospitalerum classic neutrophil cytoplasmic antibody titer by immunofluorescenceOrdered By: Carlos Guzmán on 72-53-7177Lemtrqbfwu cytoplasmic Ab.classic IF (S) [Titer]<1:20 titerNeg:<1:20[facility] Serum globulin measurement by calculation (mass/volume)Ordered By: Carlos Guzmán on 14-95-5240Uavxfmwh (S) [Mass/Vol]4.4 g/dL2.2-3.9Doctors Hospitalerum homogeneous pattern antinuclear antibody (VANESSA) titerOrdered By: Carlos Guzmán on 24-70-8045Bywisroael nuclear Ab pattern (S) [Titer]1:640. [facility] CenterComment on above:ICAP nomenclature: AC-1Serum nuclear antibody titerOrdered By: Carlos Guzmán on 58-20-3023Vjenqoi Ab (S) [Titer]Positive.[facility] CenterComment on above:Negative <1:80 Borderline 1:80 Positive >1:80Serum or plasma albumin/globulin mass ratio Ordered By: Carlos Guzmán on 49-88-3936Mnnqcpy/Globulin [Mass ratio]0.9 {ratio} [facility] CenterAlbumin/Globulin [Mass ratio]0.8 {ratio}0.7-1.7 Doctors Hospitalerum or plasma alpha 1 globulin measurement by electrophoresis (mass/volume)Ordered By: Carlos Guzmán on 41-37-3453Gfvhl 1 globulin Elph [Mass/Vol]0.2 g/dL0.0-0.4FRegency Hospital Companyerum or plasma alpha 2 globulin measurement by electrophoresis (mass/volume)Ordered By: Carlos Guzmán on 60-18-5463Kriiv 2 globulin Elph [Mass/Vol]1.0 g/dL0.4-1.0 Doctors Hospitalerum or plasma anion gap determinationOrdered By: Carlos Guzmán on 33-80-7064Bzxbo gap [Moles/Vol]14.8 mmol/L6.0-15.0 Doctors Hospitalerum or plasma beta globulin measurement by electrophoresis (mass/volume)Ordered By: Carlos Guzmán on 63-90-1376Ggmx globulin Elph [Mass/Vol]1.0 g/dL0.7-1.3FRegency Hospital Companyerum or plasma complement C3 measurement (mass/volume)Ordered By: Carlos Guzmán on 45-39-8937Rbncqibvsx C3 [Mass/Vol]135 mg/dL05-298XmcivjzkbMercy Health Springfield Regional Medical CenterComment on above:Performed at: [address] [id number] Director: Krunal Nichols PhD, Phone: [phone] or plasma complement C4 measurement (mass/volume)Ordered By: Carlos Guzmán on 29-72-8978Oavuthcqgy C4 [Mass/Vol]10 mg/jH22-31SjuwuchscMercy Health [facility] Regional Medical Center Serum or plasma gamma globulin measurement by electrophoresis (mass/volume) Ordered By: Carlos Guzmán on 04-87-5904Remyw globulin Elph [Mass/Vol]2.2 g/dL 0.4-1.8Doctors Hospitalodium [Moles/volume] in Serum or Plasma Ordered By: Carlos Guzmán on 79-77-6488Dmseas [Moles/Vol]138 mmol/E368-175 Doctors Hospitalpecific gravity Auto test strip (U) [Rel density]Ordered By: Carlos Guzmán on 90-51-2709Gpjyyvig gravity (U) [Rel density]1.0391.001-1.030Doctors Hospitalquamous epithelial cells detection in urine sediment by light microscopyOrdered By: Carlos Guzmán on 30-23-1789Ynnkquphlv cells.squamous LM Ql (Urine sed)None seen [HPF]0-2 [facility] Medical CenterUrea nitrogen [Mass/volume] in Serum or Plasma Ordered By: Carlos Guzmán on 28-41-2901Wday nitrogen [Mass/Vol]15 mg/dL7-25 [facility] CenterUrine alpha 1 globulin/total protein by electrophoresisOrdered By: Carlos Guzmán on 73-52-7556Oanhv 1 globulin Elph (U) [Mass fraction]1.3 %.[facility] Medical CenterUrine alpha 2 globulin/total protein ratio by electrophoresisOrdered By: Carlos Guzmán on 49-70-1645Aeage 2 globulin Elph (U) [Mass fraction]9.1 %.[facility] CenterUrine bacteria detection by automated methodOrdered By: Carlos Guzmán on 17-40-8744Sqqapwsx Auto Ql (U)None seenNone SeenMercy Health Springfield Regional Medical CenterUrine beta globulin measurement by electrophoresis (mass/volume) Ordered By: Carlos Guzmán on 92-68-9363Zjnu globulin Elph (U) [Mass/Vol]18.7 %. [facility] CenterUrine clarity by refractometry automatedOrdered By: Carlos Guzmán on 65-38-7008Vaqielc Refractometry automated (U)ClearClear [facility] CenterUrine glucose measurement by automated test strip (mass/volume)Ordered By: Carlos Guzmán on 81-70-8350Rrsbjjr Auto test strip (U) [Mass/Vol]>=1000 mg/dLNoWright-Patterson Medical CenterUrine hemoglobin detection by automated test stripOrdered By: Carlos Guzmán on 31-96-0998Rppdosafaa Auto test strip Ql (U)NegativeNegThe Surgical Hospital at SouthwoodsUrine leukocyte esterase detection by automated test stripOrdered By: Carlos Guzmán on 59-69-9766Azjauskeu esterase Auto test strip Ql (U) NegativeNegThe Surgical Hospital at SouthwoodsUrobilinogen Auto test strip (U) [Mass/Vol]Ordered By: Carlos Guzmán on 46-59-7673Eqajuoxepyvm (U) [Mass/Vol]Normal mg/dLNoWright-Patterson Medical CenterWBC Auto (Bld) [#/Vol]Ordered By: Carlos Guzmán on 99-84-3883GDU (Bld) [#/Vol]8.9 10*3/uL 4.1-10.5FSamaritan HospitalpH Auto test strip (U)Ordered By: Carlos Guzmán on 56-44-5481hY (U)5.0 [pH]5.0-9.0[facility] CenterBasophils Auto (Bld) [#/Vol]on 92-27-8297Brovdhkxk (Bld) [#/Vol]0.1 10 3/uL0.0-0.1FSamaritan HospitalBasophils/100 WBC Auto (Bld)on 26-94-0814Wlogtgolv/100 WBC (Bld)0.7 %0.2-2.0[facility] Centriole Ab [Titer] in Serum by Immunofluorescenceon 30-22-9999Kspdgsoub Ab IF (S) [Titer][facility] Medical CenterCentromere Ab [Titer] in Serum by Immunofluorescenceon 55-46-1794Aohwtmwqmx Ab IF (S) [Titer][facility] CenterEosinophils/100 WBC Auto (Bld)on 10-28-2023 Eosinophils/100 WBC (Bld)2.2 %0.9-7.0[facility] Erythrocyte distribution width Auto (RBC) [Ratio]on 52-53-3074Qatkodzqrut distribution width (RBC) [Ratio]14.6 %11.0-15.0[facility] Estimated glomerular filtration rate (GFR) non- Americanon 10-28-2023 GFR/1.73 sq M.predicted among non-blacks MDRD (S/P/Bld) [Vol rate/Area] mL/min/{1.73_m2}>=60[facility] CenterGlobulin Calc (S) [Mass/Vol]on 39-81-2736Aozkfeuu (S) [Mass/Vol]5.8 g/dLMercy Health Springfield Regional Medical CenterHematocrit Auto (Bld) [Volume fraction]on 00-73-0911Wwekxcaulm (Bld) [Volume fraction]40.0 %42.0-54.0[facility] CenterHemoglobin [Mass/volume] in Bloodon 28-76-6711Ajvzsmcscr (Bld) [Mass/Vol]13.1 g/dL14.0-18.0 [facility] CenterLaboratory - Chemistry and Chemistry - challengeon 03-04-8389Uwlpawi [Mass/Vol]2.8 g/dL3.4-5.0[facility] CenterALP [Catalytic activity/Vol]94 U/O67-648NpxhapewfMercy Health [facility] Regional Medical CenterALT [Catalytic activity/Vol]17 U/U38-92QfwcdsvbtMercy Health [facility] Center AST [Catalytic activity/Vol]23 U/U90-53GimzduyyyMercy Health [facility] Bilirubin [Mass/Vol]0.6 mg/dL0.2-1.0[facility] CenterCalcium [Mass/Vol]8.8 mg/dL8.5-10.1FSamaritan HospitalChloride [Moles/Vol] 100 mmol/S72-686AivshtgzaMercy Health [facility] Medical CenterCO2 [Moles/Vol]28.0 mmol/L 21.0-32.0[facility] CenterCreatinine [Mass/Vol]0.80 mg/dL 0.70-1.30[facility] CenterGFR/1.73 sq M.predicted MDRD (S/P/Bld) [Vol rate/Area]mL/min/{1.73_m2}>=60[facility] CenterGlucose [Mass/Vol]135 mg/uI86-131SbgbddimxMercy Health [facility] Medical CenterPotassium [Moles/Vol] 4.5 mmol/L3.5-5.1FSamaritan HospitalProtein [Mass/Vol]8.6 g/dL 6.4-8.2FRegency Hospital Companyodium [Moles/Vol]138 mmol/F789-391 [facility] CenterUrate [Mass/Vol]4.2 mg/dL3.5-7.2FSamaritan HospitalUrea nitrogen [Mass/Vol]14.0 mg/dL7.0-18.0[facility] CenterUrea nitrogen/Creatinine [Mass ratio]17.5 mg/mgMercy Health Springfield Regional Medical CenterLaboratory - Hematology and Cell countson 43-56-8832EVZ (Bld) [Velocity]62 mm/h<=20[facility] CenterImmature granulocytes/100 WBC (Bld)0.1 %0.0-0.5FSamaritan Hospital Leukocytes [#/volume] corrected for nucleated erythrocytes in Blood by Automated counon 98-42-3413FCS corrected for nucl RBC Auto (Bld) [#/Vol]7.2 10 3/uL 4.0-11.0[facility] CenterLymphocytes Auto (Bld) [#/Vol]on 18-81-1675Urzbmugovgj (Bld) [#/Vol]1.9 10 3/uL1.2-3.8[facility] CenterLymphocytes/100 WBC Auto (Bld)on 26-69-7712Aqhxupjbprj/100 WBC (Bld)26.6 % 20.5-60.0[facility] Auto (RBC) [Entitic mass]on 48-21-0995UXU (RBC) [Entitic mass]30.2 pg25.9-34.0[facility] CenterMCHC Auto (RBC) [Mass/Vol]on 87-08-1311ITVW (RBC) [Mass/Vol]32.8 g/dL 29.9-35.2FSamaritan HospitalMCV Auto (RBC) [Entitic vol]on 43-61-3228PRA (RBC) [Entitic vol]92.2 fL80.0-94.0[facility] CenterMidbody Ab [Titer] in Serum by Immunofluorescenceon 21-99-8511Uhnpvfp Ab IF (S) [Titer]TNP.[facility] CenterMitotic spindle apparatus Ab [Titer] in Serum or Plasma by Immunofluorescenceon 44-46-1093Lggohfy spindle apparatus Ab IF [Titer]TNP.[facility] CenterMonocytes Auto (Bld) [#/Vol]on 96-29-8993Eenhztpzg (Bld) [#/Vol]0.8 10 3/uL0.3-0.8[facility] CenterMonocytes/100 WBC Auto (Bld)on 68-18-3240Uwiachbql/100 WBC (Bld) 10.4 %1.7-12.0[facility] CenterNeutrophils Auto (Bld) [#/Vol]on 92-16-1043Mtpganlkymm (Bld) [#/Vol]4.3 10 3/uL1.4-6.5FSamaritan HospitalNeutrophils/100 WBC Auto (Bld)on 91-68-5239Kuhrjwwggbt/100 WBC (Bld)60.0 % 43.0-75.0[facility] CenterNo Panel Informationon 91-34-7019Njwn- Nuclear Antibody Comment 2Comment.[facility] CenterComment on above:Pattern Potential Disease Association Homogeneous Systemic Lupus Erythematosus, Drug Induced Systemic Lupus Erythematosus, Chronic Autoimmune hepatitis, Juvenile Idiopathic Arthritis Speckled Sjogren Syndrome, Systemic Lupus Erythematosus, Subacute Cutaneous Lupus, Lupus, Congenital Heart Block, Mixed Connective Tissue Disease, Scleroderma-diffuse, Scleroderma- Autoimmune Myositis Overlap Syndrome, Systemic Lupus Xrmmadfvygcnu-Xeerexhsanr-Lpoxpejzli Myositis Overlap Syndrome, Systemic Autoimmune Rheumatic Disease, Undifferentiated Connective Tissue Disease Nucleolar Systemic Sclerosis, Scleroderma-Autoimmune Myositis Overlap Syndrome, Sjogren Syndrome, Raynaud phenomenon, Pulmonary Arterial Hypertension, Systemic Autoimmune Rheumatic Disease, Cancer Centromere Scleroderma-CREST, Limited Cutaneous SSc, Raynaud's Phenomenon, Primary Biliary Cholangit is Nuclear Dot Primary Biliary Cholangitis Nuclear Primary Biliary Cholangitis, AutoimmuneMembrane Hepatitis/Liver disease, Systemic Autoimmune Rheumatic Disease, Autoimmune Cytopenias, Linear Scleroderma, Antiphospholipid Syndrome Performed at: [facility]CareJsimma[address] [place], [place] [id number] Director: Krunal Nichols PhD, Phone: [phone]-Majoktqs Protein, Quantitative<0.50 mg/dL <=0.50[facility] CenterEosinophils # (Auto)0.2 10 3/uL0.0-0.7 [facility] CenterImmature Granulocyte # (Auto)0.01 10 3/uL 0.00-0.03[facility] CenterNuclear dots nuclear Ab pattern [Titer] in Serum by Immunofluorescenceon 40-48-7268Gkcvcaz dots nuclear Ab pattern IF (S) [Titer]TNP.[facility] CenterNuclear membrane pores nuclear Ab pattern [Titer] in Serum by Immunofluorescenceon 10-28-2023 Nuclear membrane pores nuclear Ab pattern IF (S) [Titer]TNP.[facility] CenterPCNA extractable nuclear Ab [Titer] in Serum by Immunofluorescence on 21-92-2240GXIS extractable nuclear Ab IF (S) [Titer]TN.[facility] Medical CenterPlatelet mean volume Auto (Bld) [Entitic vol]on 95-79-6319Vafcjick mean volume (Bld) [Entitic vol]8.9 fL9.5-13.5FSamaritan Hospital Platelets Auto (Bld) [#/Vol]on 04-77-6591Dadbnrncp (Bld) [#/Vol]296 10 3/uL 150-450[facility] CenterRBC Auto (Bld) [#/Vol]on 73-67-8977NEG (Bld) [#/Vol]4.34 10 6/uL4.70-6.10Doctors Hospitalerum homogeneous pattern antinuclear antibody (VANESSA) titeron 48-23-2714Zmkvelqgcb nuclear Ab pattern (S) [Titer]1:640.[facility] CenterComment on above:ICAP nomenclature: AC-1Serum nuclear antibody titeron 16-47-8558Raursqs Ab (S) [Titer]Positive.[facility] CenterComment on above:Negative <1:80 Borderline 1:80 Positive >1:80Serum nucleolar pattern antinuclear antibody (VANESSA) titeron 30-05-6660Aqddutycg nuclear Ab pattern (S) [Titer]TN.Doctors Hospitalerum or plasma albumin/globulin mass ratioon 10-28-2023 Albumin/Globulin [Mass ratio]0.5 {ratio}[facility] Hospitalerum or plasma anion gap determinationon 36-71-1362Bnazk gap [Moles/Vol]14.5 mmol/L [facility] Hospitalerum or plasma cyclic adenosine monophosphate measurement (moles/volume)on 34-62-5129Ijfxwqllq monophosphate.cyclic [Moles/Vol]>250 units0-[facility] CenterComment on above: Negative <20 Weak positive 20 - 39 Moderate positive 40 - 59 Strong positive >59Performed at:[facility] [place], [place] [id number] Director: Krunal Nichols PhD, Phone: [phone] or plasma rheumatoid factor measurement (units/volume)on 18-12-8221Fpdicmlhsj factor Qn183.9 [IU]/mL <14.0[facility] Medical CenterComment on above:Results confirmed ondilution.Performed at: [facility] [employer] [place], [place] [id number] Director: Krunal Nichols PhD, Phone: [phone] speckled pattern antinuclear antibody (VANESSA) titeron 00-48-0644Kefhbagy nuclear Ab pattern (S) [Titer]TNP.[facility] Medical CenterGlucose Glucometer (BldC) [Mass/Vol]Ordered By: Erickson Nascimento on 74-19-5129Rpxsxoo [Mass/Vol]134 mg/dL [facility] CenterComment on above:Random Glucose Reference Range is dependent on time and content of last meal. Glucose of more than 200 mg/dL in a nonstressed, ambulatory subject supports the diagnosis of Diabetes Mellitus.GLYCOHEMOGLOBIN A1Con 84-61-7437HPN RECOMMENDATIONSEE BELOWOhioHealth Arthur G.H. Bing, MD, Cancer CenterComment on above:Result Comment: ADA RECOMMENDED LIMIT 4.0 - 6.0 ADA THERAPEUTIC TARGET < 7.0 ACTION SUGGESTED > 7.0Performed By: #### DATA1C #### [facility] [address] [place] [address] Dr. Ginger KeaneGlucose [Mass/Vol]123 mg/dLOhioHealth Arthur G.H. Bing, MD, Cancer CenterComment on above:Performed By: #### DATA1C #### [facility] [address] [place] [address] Dr. Ginger KeaneHbA1c (Bld) [Mass fraction]5.9 %Normal4.5-6.2The [facility] CenterComment on above:Performed By: #### DATA1C #### [facility] [address] [place] [address] Dr. Ginger KeaneGLYCOHEMOGLOBIN A1Con 94-69-2436QNQ RECOMMENDATIONSEE BELOWNormal The [facility] CenterComment on above:Result Comment: ADA RECOMMENDED LIMIT 4.0 - 6.0 ADA THERAPEUTIC TARGET < 7.0 ACTION SUGGESTED > 7.0Performed By: #### DATA1C #### [facility] [address] [place] [address] Dr. Ginger KeaneGlucose [Mass/Vol]160 mg/dLNormalThe [facility] CenterComment on above:Performed By: #### DATA1C #### [facility] [address] [place] [address] Dr. Ginger AcostaA1c (Bld) [Mass fraction]7.2 %Critically high4.5-6.2The [facility] CenterComment on above:Performed By: #### DATA1C #### [facility] [address] [place] [address] Dr. Ginger KeaneMICROALBUMIN URINEon 18-29-7579Xdikjfw, Qbomo711.8 ug/mLNormalNot Estab.The [facility] CenterComment on above:Performed By: #### MALBLC #### [facility] [address] [place] [address] Dr. Ginger KeaneCBC AUTO DIFFon 75-42-9035RBQL #0.1 103/ulNormal0.0-0.1The [facility] CenterComment on above:Performed By: #### CBC #### [facility] [address] [place] [address] Dr. Ginger KeaneBasophils/100 WBC (Bld)0.6 %Normal0.2-2.0The [facility] Comment on above:Performed By: #### CBC #### [facility] [address] [place] [address] Dr. Ginger Lu #0.2 103/ulNormal0.0-0.7The [facility] CenterComment on above: Performed By: #### CBC #### [facility] [address] [place] [address] Dr. Ginger Phanosinophils/100 WBC (Bld)2.9 %Normal0.9-7.0The [facility] Comment on above:Performed By: #### CBC #### [facility] [address] [place] [address] Dr. Ginger Phanrythrocyte distribution width (RBC) [Ratio]12.9 %Mykplc63.0-15.0 The [facility] CenterComment on above:Performed By: #### CBC #### [facility] [address] [place] [address] Dr. Ginger KeaneHematocrit (Bld) [Volume fraction]44.3 %Zkmbjc80.0-54.0The [facility] CenterComment on above:Performed By: #### CBC #### [facility] [address] [place] [address] Dr. Ginger KeaneHemoglobin (Bld) [Mass/Vol]15.6 g/vOUhyvac65.0-18.0The [facility] CenterComment on above:Performed By: #### CBC #### [facility] [address] [place] [address] Dr. Ginger Boucher #0.01 10e3/ulNormal0.00-0.03The [facility] CenterComment on above:Performed By: #### CBC #### [facility] [address] [place] [address] Dr. Ginger Boucher %0.1 %Normal0.0-0.5The [facility] CenterComment on above: Performed By: #### CBC #### [facility] [address] [place] [address] Dr. Ginger Dominguez #2.9 103/ulNormal1.2-3.8The [facility] CenterComment on above:Performed By: #### CBC #### [facility] [address] [place] [address] Dr. Ginger Blancomphocytes/100 WBC (Bld)34.1 %Pakgij88.5-60.0The [facility] CenterComment on above:Performed By: #### CBC #### [facility] [address] [place] [address] Dr. Ginger GonzalezUAL DIFF REQNONormalThe [facility] CenterComment on above: Performed By: #### CBC #### [facility] [address] [place] [address] Dr. Ginger Whiteside (RBC) [Entitic mass]32.8 lbRbrwoy46.9-34.0The [facility] CenterComment on above:Performed By: #### CBC #### [facility] [address] [place] [address] Dr. Ginger Whiteside (RBC) [Mass/Vol]35.2 g/wVHesgmp90.9-35.2The [facility] CenterComment on above:Performed By: #### CBC #### [facility] [address] [place] [address] Dr. Ginger Whiteside (RBC) [Entitic vol]93.3 rJSboows12.0-94.0The [facility] CenterComment on above:Performed By: #### CBC #### [facility] [address] [place] [address] Dr. Ginger Dyer #0.6 103/ulNormal0.3-0.8The [facility] CenterComment on above:Performed By: #### CBC #### [facility] [address] [place] [address] Dr. Ginger Guerreroocytes/100 WBC (Bld)7.5 %Normal1.7-12.0The [facility] Comment on above:Performed By: #### CBC #### [facility] [address] [place] [address] Dr. Ginger Magallon #4.6 103/ulNormal1.4-6.5The [facility] CenterComment on above:Performed By: #### CBC #### [facility] [address] [address] [address] Ginger Rodriguezutrophils/100 WBC (Bld)54.8 %Ryfojv77.0-75.0The [facility] on above:Performed By: #### CBC #### [facility] [address] [address] [address] Ginger Brownlet mean volume (Bld) [Entitic vol]9.7 fLNormal9.5-13.5The [facility] CenterComment on above:Performed By: #### CBC #### [facility] [address] [place] [address] Dr. Ginger KeanePLT260 103/qxWinser050-277Wct [facility] CenterCommymichigan medical center clare on above: Performed By: #### CBC #### [facility] [address] [place] [address] Dr. Ginger KeaneRBC4.75 106/ulNormal4.70-6.10The [facility] CenterComment on above:Performed By: #### CBC #### [facility] [address] [place] [address] Dr. Ginger KeaneWBC8.4 103/ulNormal4.0-11.0The [facility] CenterComment on above: Performed By: #### CBC #### [facility] [address] [place] [address] Dr. Ginger HansonID PROFILEon 41-22-4991WGET-HDL RATIO NORMSOhioHealth Grady Memorial HospitalComment on above:Result Comment: 3.3 - 4.4 LOW RISK 4.4 - 7.1 AVERAGE RISK 7.1 - 11.0 MODERATE RISK >11.0 HIGH RISKPerformed By: #### BMP, LIPID, ALT #### [facility] [address] [place] [address] Dr. Ginger KeaneCholesterol [Mass/Vol]119 mg/dLNormal<=200The [facility] Comment on above:Performed By: #### BMP, LIPID, ALT #### [facility] [address] [place] [address] Dr. Yilan ChangCholesterol in HDL [Mass/Vol]37 mg/dLCritically kau60-96Umn [facility] on above:Performed By: #### BMP, LIPID, ALT #### [facility] [address] [address] [address] Ginger KeaneCholesterol in LDL [Mass/Vol]35.2 mg/dLMercy Health St. [facility] on above:Performed By: #### BMP, LIPID, ALT #### [facility] [address] [place] [address] Dr. Ginger Roqueestermarcia.total/Cholesterol in HDL [Mass ratio]3.2 {ratio} NormalThe [facility] on above:Performed By: #### BMP, LIPID, ALT #### [facility] [address] [place] [address] Dr. Ginger Walsh NORMAL> or = 60 mg/dl - LOW CARDIOVASCULAR RISK <40 mg/dl - HIGH CARDIOVASCULAR RISKOhioHealth Arthur G.H. Bing, MD, Cancer CenterCommymichigan medical center clare on above:Performed By: #### BMP, LIPID, ALT #### [facility] [address] [place] [address] Dr. Ginger Calix CALC NORMALSEE BELOWOhioHealth Arthur G.H. Bing, MD, Cancer CenterCommymichigan medical center clare on above:Result Comment: <100 mg/dl OPTIMAL 100 - 129 mg/dl NEAR OR ABOVE OPTIMAL 130 - 159 mg/dl BORDERLINE HIGH 160 - 189 mg/dl HIGH >190 mg/dl VERY HIGH Performed By: #### BMP, LIPID, ALT #### [facility] [address] [place] [address] Dr. Ginger KeaneTriglyceride [Mass/Vol]234 mg/dLCritically high<=150The [facility] on above:Performed By: #### BMP, LIPID, ALT #### [facility] [address] [place] [address] Dr. Ginger KeaneVLDL CALC46.8 mg/dLOhioHealth Arthur G.H. Bing, MD, Cancer CenterCommymichigan medical center clare on above: Performed By: #### BMP, LIPID, ALT #### [facility] [address] [place] [address] Dr. Ginger KeanePROF CHEM 8 (BAS METB)on 45-20-1381Cdolv gap [Moles/Vol]13.3 mmol/LNormalThe [facility] CenterComment on above:Performed By: #### BMP, LIPID, ALT #### [facility] [address] [place] [address] Dr. Ginger KeaneCalcium [Mass/Vol]8.7 mg/dLNormal8.5-10.1The [facility] Comment on above:Performed By: #### BMP, LIPID, ALT #### [facility] [address] [address] [address] Ginger KeaneChloride [Moles/Vol]102 mmol/WEynvak60-095Ixh [facility] Comment on above:Performed By: #### BMP, LIPID, ALT #### [facility] [address] [place] [address] Dr. Ginger KeaneCO2 [Moles/Vol]26.8 mmol/PRhwzui06.0-32.0The [facility] Comment on above:Performed By: #### BMP, LIPID, ALT #### [facility] [address] [place] [address] Dr. Ginger KeaneCreatinine [Mass/Vol]0.92 mg/dLNormal0.70-1.30The [facility] CenterComment on above:Performed By: #### BMP, LIPID, ALT #### [facility] [address] [place] [address] Dr. Ginger PhanGFR-AF LITHUANIAN>60Normal>=60The [facility] CenterComment on above:Performed By: #### BMP, LIPID, ALT #### [facility] [address] [place] [address] Dr. Ginger PhanGFR-NON AF LITHUANIAN>60Normal>=60The [facility] CenterComment on above:Performed By: #### BMP, LIPID, ALT #### [facility] [address] [address] [address] Ginger KeaneGlucose [Mass/Vol]161 mg/dLCritically vxlh81-949Wwl [facility] CenterComment on above:Performed By: #### BMP, LIPID, ALT #### [facility] [address] [address] [address] Ginger KeanePotassium [Moles/Vol]4.1 mmol/LNormal3.5-5.1The [facility] Comment on above:Performed By: #### BMP, LIPID, ALT #### [facility] [address] [address] [address] Ginger KeaneSodium [Moles/Vol]138 mmol/YFbbhrr542-131Irh [facility] Comment on above:Performed By: #### BMP, LIPID, ALT #### [facility] [address] [address] [address] Ginger KeaneUrea nitrogen [Mass/Vol]13.0 mg/dLNormal7.0-18.0The [facility] CenterComment on above:Performed By: #### BMP, LIPID, ALT #### [facility] [address] [address] [address] Ginger Mera nitrogen/Creatinine [Mass ratio]14.1 mg/mgNoSouthwest General Health CenterComment on above:Performed By: #### BMP, LIPID, ALT #### [facility] [address] [address] [address] Ginger De La Fuente 31-25-8887KFA [Catalytic activity/Vol]26 U/HXtqfrx38-02NirSelect Medical Ohiohealth Rehabilitation HospitalComment on above:Performed By: #### BMP, LIPID, ALT #### [facility] [address] [place] [address] Dr. Ginger KeaneGLYCOHEMOGLOBIN A1Con 89-16-7818BSA RECOMMENDATIONSEE BELOWNormal The [facility] CenterComment on above:Result Comment: ADA RECOMMENDED LIMIT 4.0 - 6.0 ADA THERAPEUTIC TARGET < 7.0 ACTION SUGGESTED > 7.0Performed By: #### DATA1C #### [facility] [address] [place] [address] Dr. Ginger KeaneGlucose [Mass/Vol]146 mg/dLNoSouthwest General Health CenterComment on above:Performed By: #### DATA1C #### [facility] [address] [address] [address] Ginger KeaneHbA1c (Bld) [Mass fraction]6.7 %Critically high4.5-6.2The [facility] CenterComment on above:Performed By: #### DATA1C #### [facility] [address] [place] [address] Dr. Ginger Keane Vital Signs Date TimeVital SignValuePerforming JiarttbkbHdryftfa01-60-3919 11:45-0400Body ivhjun712.8 cmBenjamin Ball DO Work Phone: [phone] [place], [place] 7[address]709-29-2025 11:45-0400 Body mass index (BMI) [Ratio]28.5 kg/i0Txpvtmcu Ball DO Work Phone: [phone]09-29-2025 11:45-0400 Body btxxry61.43 kgBenjamin Ball DO Work Phone: [phone] [place], [place] 7[address]709-29-2025 11:45-0400 Diastolic blood xwjjjbqe15 mm[Hg]Vernon Ball DO Work Phone: [phone]09-29-2025 11:45-0400 Heart rate95 /minBenjamin Ball DO Work Phone: [phone] [place], [place] [address]709-29-2025 11:45-0400 Respiratory rate12 /minBenjamin Ball DO Work Phone: [phone] [place], [place] 7[address]709-29-2025 11:45-0400 Systolic blood bjpmhudu111 mm[Hg]Vernon Ball DO Work Phone: [phone] [place], [place] 7[address]702-27-2025 11:03-0500 Body onuzsy732.8 cmMer[facility] Center02-27-2025 11:03-0500Body mass index (BMI) [Ratio]29.7 kg/u8EyqxkvngdMercy Health [facility] Regional Medical Center02-27-2025 11:03-0500Body elvwne39 kgMercy Health [facility] Medical Center02-27-2025 11:03-0500 Diastolic blood yiqqohcs86 mm[Hg][facility]02-27-2025 11:03-0500Heart rate98 /[facility]02-27-2025 11:03-0500Respiratory rate12 /[facility]02-27-2025 11:03-0500Systolic blood ldwinqdy702 mm[Hg][facility] 09-24-2024 11:36-0500Body huqbvv336.8 cmMercy Health [facility] Center 09-24-2024 11:36-0500Body mass index (BMI) [Ratio]29.9 kg/z2TuukjkgveMercy Health Springfield Regional Medical Center01-24-2025 11:36-0500Body axqixl25.85 kgMercy Health [facility] Center01-24-2025 11:36-0500Diastolic blood gwchoxfd52 mm[Hg][facility]01-24-2025 11:36-0500Heart rate88 /[facility]01-24-2025 11:36-0500Respiratory rate12 /[facility]01-24-2025 11:36-8215UrR1% (BldA) [Mass fraction]95 %[facility]01-24-2025 11:36-0500Systolic blood aiuqjnoi033 mm[Hg][facility]09-25-2024 13:28-0400Body apcpno478.34 cmMercy Health [facility] Center09-25-2024 13:28-0400Body mass index (BMI) [Ratio]28.2 kg/w4XlcdbujjnMercy Health [facility] Regional Medical Center09-25-2024 13:28-0400Body hlouam89.73 kg [facility]09-25-2024 13:28-0400Diastolic blood qzdkoysv90 mm[Hg][facility]09-25-2024 13:28-0400Heart rate77 /min [facility]09-25-2024 13:28-0400Systolic blood htepcnjq915 mm[Hg][facility]09-16-2024 13:51-0400Body temperature 97.81 [degF]Angeles Payan CONTACT CENT[employer] SUPERVISOR Work Phone: [facility] HospitalVivxepdlsh64-66-0280 13:51-0400Body gupgur30.81 kgAngeles Payan NP Work Phone: [facility] HospitalYtuorldmqu55-12-3862 13:51-0400Diastolic blood vvojfuwx81 mm[Hg]Angeles Payan CONTACT CENTRE SUPERVISOR Work Phone: [facility] HospitalAqmdmjyuwd60-41-9804 13:51-0400Heart xboc224 /min Angeles Payan CONTACT CENTRE SUPERVISOR Work Phone: [facility] HealthcareComment on above:repeat puls 96bpm -84-3012 13:51-0400Respiratory rate20 /minAngeles Payan CONTACT CENTRE SUPERVISOR Work Phone: [phone] HospitalNqhgptuifc67-73-7258 13:51-9624UoV7% (BldA) [Mass fraction]94 %Angeles Payan CONTACT CENTRE SUPERVISOR Work Phone: [facility] HospitalNrkrlpxjxm66-30-4375 13:51-0400Systolic blood mm[Hg]Angeles Payan CONTACT CENTRE SUPERVISOR Work Phone: [facility] HospitalKtxvfexwse98-50-1244 11:02-0400Body ztqmca690.34 cmDO Vernon Ball Work Phone: [phone]04-30-2024 11:02-0400 Body mass index (BMI) [Ratio]26.4 kg/m2DO Vernon Ball Work Phone: [facility]04-30-2024 11:02-0400 Body utfrng37.89 kgDO Vernon Ball Work Phone: [facility]04-30-2024 11:02-0400 Diastolic blood mvlnwbyu16 mm[Hg]DO Vernon Ball Work Phone: [facility]04-30-2024 11:02-0400 Heart rate93 /minDO Vernon Ball Work Phone: [facility]04-30-2024 11:02-0400 Respiratory rate16 /minDO Vernon Ball Work Phone: [facility]04-30-2024 11:02-0400 Systolic blood qawoqehz605 mm[Hg]DO Vernon Ball Work Phone: [facility]02-19-2024 15:23-0500 Body toqdgy198.34 cmMercy Health [facility] Center02-19-2024 15:23-0500Body mass index (BMI) [Ratio]25.5 kg/x4JrdzdjpbiMercy Health [facility] Regional Medical Center02-19-2024 15:23-0500Body llmgic64.09 kgMercy Health [facility] Center02-19-2024 15:23-0500Diastolic blood pytlectt25 mm[Hg][facility] 10-20-2023 15:23-0500Heart rate99 /[facility] 10-20-2023 15:23-0500Respiratory rate20 /[facility] 10-20-2023 15:23-0500Systolic blood edyrqlgu282 mm[Hg][facility]01-31-2024 10:00-0500Body hoepmo120.34 cmBenjamin Ball Other [facility]01-31-2024 10:00-0500 Diastolic blood sebnotag11 mm[Hg]Vernon Ball Other [facility]01-31-2024 10:00-0500 SaO2% (BldA) [Mass fraction]90 %Vernon Ball Other [employer] Other 01-31-2024 10:00-0500Systolic blood pohjwbvl423 mm[Hg] Vernon Ball Other [facility]12-29-2023 10:00-0500 Body alzviw887.34 cmBenjamin Ball Other [facility]12-29-2023 10:00-0500 Body mass index (BMI) [Ratio]25.63 kg/t0Xweqovxx Ball Other [employer] Other 565996-16-8653 10:00-0500Body okclpi33.37 kgBenjamin Ball Other [facility]12-29-2023 10:00-0500 Diastolic blood peimwjnu55 mm[Hg]Vernon Ball Other [facility]12-29-2023 10:00-0500 Respiratory rate20 /minBenjamin Ball Other [employer] Other [id number] 10:00-6497FaZ4% (BldA) [Mass fraction]84 % Vernon Ball Other [employer] Other Phone: [phone] 10:00-0500Systolic blood nrsokwvp430 mm[Hg] Vernon Ball Other [facility]12-12-2023 11:00-0500 Body nypnaj034.34 cmBenjamin Ball Other [facility]12-12-2023 11:00-0500 Body mass index (BMI) [Ratio]25.55 kg/g1Ftfmyfmv Ball Other [employer] Other Phone: [phone] 11:00-0500Body tuuqys74.1 kgBenjamin Ball Other [employer] Other Phone: [phone] 11:00-0500Body yptpse26.09 kgMercy Health [facility] Center12-12-2023 11:00-0500Diastolic blood rresthzl47 mm[Hg] Vernon Ball Other [facility]12-12-2023 11:00-0500 Respiratory rate20 /minBenjamin Ball Other [employer] Other Phone: [phone] 11:00-2660ZgB7% (BldA) [Mass fraction]94 % Vernon Ball Other [employer] Other 202301-52-5382 11:00-0500Systolic blood utjflbuk456 mm[Hg] Vernon Ball Other [facility]11-09-2023 11:45-0500 Body mqoldq450.34 cmBenjamin Ball Other [facility] CenterSt[facility] Other 11-09-2023 11:45-0500Body mass index (BMI) [Ratio] 26.22 kg/p4Wsszgvtk Ball Other [employer] Other 11-09-2023 11:45-0500Body kukyzk38.28 kgBenjamin Ball Other [employer] Other 258516-67-1669 11:45-0500Diastolic blood olrbvwzp56 mm[Hg] Vernon Ball Other [employer] Other 059103-80-0507 11:45-0500Respiratory rate16 /minBenjamin Ball Other [employer] Other 11-09-2023 11:45-0500Systolic blood npnouaka496 mm[Hg] Vernon Ball Other [employer] Other 11-03-2023 08:03-0400Diastolic blood mm[Hg] DO Vernon Ball Work Phone: [facility]11-03-2023 08:03-0400 Heart rate89 /minDO Vernon Ball Work Phone: [phone]11-03-2023 08:03-0400 Respiratory rate16 /minDO Vernon Ball Work Phone: [phone]11-03-2023 08:03-0400 SaO2% (BldA) [Mass fraction]93 %DO Vernon Ball Work Phone: [phone]11-03-2023 08:03-0400 Systolic blood mm[Hg]DO Vernon Ball Work Phone: [facility]11-03-2023 06:47-0400 Body zulbhb025.34 cmDO Vernon Ball Work Phone: [facility]11-03-2023 06:47-0400 Body jruwfdcvrzq02.2 [degF]DO Vernon Ball Work Phone: [facility]11-03-2023 06:47-0400 Body ldkudz52.18 kgDO Vernon Ball Work Phone: [facility]11-01-2023 13:45-0400 Body .34 cmJustin Pily Other [employer] Other 11-01-2023 13:45-0400Body mass index (BMI) [Ratio]26.5 kg/v2Sfuzux Pily Other [employer] Other 11-01-2023 13:45-0400Body awsvwe36.18 kgJustin Pily Other [employer] Other 09-19-2023 10:00-0400Body .34 cmBenjamin Ball Other [employer] Other 09-19-2023 10:00-0400Body mass index (BMI) [Ratio] 26.64 kg/k8Fjxdnpaq Ball Other [employer] Other 09-19-2023 10:00-0400Body basski12.64 kgBenjamin Ball Other [employer] Other 09-19-2023 10:00-0400Diastolic blood ytbzkzdp28 mm[Hg] Vernon Ball Other [employer] Other 09-19-2023 10:00-0400Respiratory rate12 /minBenjamin Ball Other [employer] Other 09-19-2023 10:00-0400Systolic blood ftyhbiwk512 mm[Hg] Vernon Ball Other [employer] Other 06-19-2023 10:30-0400Body qpyxdz967.34 cmBenjamin Ball Other [employer] Other 06-19-2023 10:30-0400Body mass index (BMI) [Ratio] 27.58 kg/x0Yphzsnfy Ball Other [employer] Other 06-19-2023 10:30-0400Body caympv28.72 kgBenjamin Ball Other [employer] Other 06-19-2023 10:30-0400Diastolic blood iwetrehi40 mm[Hg] Vernon Ball Other [employer] Other 06-19-2023 10:30-0400Respiratory rate12 /minBenjamin Ball Other [employer] Other 06-19-2023 10:30-0400Systolic blood oumuxntu826 mm[Hg] Vernon Ball Other [employer] Other 03-20-2023 11:30-0400Body tloapb190.34 cmBenjamin Ball Other [employer] Other 03-20-2023 11:30-0400Body mass index (BMI) [Ratio] 27.42 kg/p0Usxvxmsu Ball Other [facility] [employer] Other 03-20-2023 11:30-0400Body .18 kgBentuyet Greene Other [facility] [employer] Other 03-20-2023 11:30-0400Diastolic blood qobcfijp69 mm[Hg] Vernon Greene Other [place] [employer] Other 03-20-2023 11:30-0400Respiratory rate12 /minBentuyet Greene Other [facility] [employer] Other 03-20-2023 11:30-0400Systolic blood opcxjpud354 mm[Hg] Vernon Greene Other [employer] [facility] [employer] Other Encounters Encounter DateEncounter TypeCare ProviderFacilityStart: 05-30-2025 End: 25-40-8872igjcxupcojPgfwmqip Ball DO Work Phone: [facility] Work Phone: Start: 05-30-2025 End: 05-87-4425Quoqkda encounter procedureBenjamin Ball DO-[facility] Work Phone: Start: 02-74-9282Bhb-patient / Non-visitJodi Heather Freeman APRN-[facility] Work Phone: Start: 11-17-2024 End: 98-77-9975Cazqgui encounter procedureBenjamin Ball DO Work Phone: [facility] [address] Work Phone: Start: 11-17-2024 End: 51-94-9801jqgsnytthtYpzzhxis Ball DO Work Phone: [facility] Work Phone: Start: 10-28-2024 End: 15-84-2772fwxhfoobhsYwdgerwfvParkwood Hospital Work Phone: Start: 10-28-2024 End: 60-80-8034Pgypght [facility] Work Phone: Start: 27-50-6376Xjp-patient / Non-visitFirelands Physician Group-[facility] Work Phone: Start: 09-24-2024 End: 53-96-3242vquxphhtigHegiyzmpaParkwood Hospital Work Phone: Start: 09-24-2024 End: 98-10-6048Uoyygey encounter procedureUn[facility] Work Phone: Start: 71-28-4222Yws-patient / Non-visitFirelands Physician Group-[facility] Work Phone: Start: 21-38-3486Tgt-patient / Non-visitFirelands Physician Group-[facility] Work Phone: Start: 22-88-9297Gly-patient / Non-visitFirelands Physician Group-[facility] Work Phone: Start: 43-74-9585Gdb-patient / Non-visitFirelands Physician Group-[facility] Work Phone: Start: 47-91-8604Pfx-patient / Non-visitFirelands Physician Group-[facility] Work Phone: Start: 05-26-2024 End: 83-47-8952cddtfsidcvYzfhepcsxParkwood Hospital Work Phone: Start: 05-26-2024 End: 11-52-3763Ngdkayx encounter procedureUn[facility] Work Phone: Start: 31-84-2405Qkuqsqq encounter procedureDoctors Hospitaltart: 05-17-2024 End: 74-46-0154gwqoirupgeISUHPXR R LACONISNot AvailableStart: 05-17-2024 End: 53-41-2875Fmyxey outpatient new 45 minutesnAgeles Payan CONTACT CENTRE SUPERVISOR Work Phone: [facility] UCComment on above:Closed fracture of multiple ribs of left side, initial encounter (Primary Dx); Rib pain on left sideStart: 05-97-6227Hoo-patient / Non-visitF[facility] Work Phone: Start: 12-31-2023 End: 10-76-9801giebttpelxFcegarhc BallFacility:[facility] Start: 12-30-2023 End: 16-37-6021qpujzpkixkPR Vernon [facility] Work Phone: [facility] Work Phone: Start: 12-30-2023 End: 01-18-6619Dlnvgod encounter procedureDO Vernon Greene Work Phone: [facility] Work Phone: Start: 20-81-8458Xhg-patient / Non-visitDO Vernon [facility] [facility] Work Phone: [facility] [place] [facility] Work Phone: Start: 24-77-6007Bat-patient / Non-visitDO Vernon Greene Work Phone: [facility] Work Phone: Start: 12-09-2023 End: 14-12-6521Yffhhbq encounter procedureDO Vernon Greene Work Phone: [facility] [address] Work Phone: Start: 12-09-2023 End: 55-75-7132rfqqzjshwcCY Vernon Greene Work Phone: [facility] Work Phone: Start: 11-26-2023 End: 45-31-2995tihqjqshqbXnhswoap Ball Other [place] [employer] Other Start: 70-56-5599Ymdpeienm encounterBentuyet Greene Medical ClinicStart: 11-24-2023 End: 10-28-1296uwqqonwpwbKJ Vernon Greene Work Phone: [facility] Work Phone: Start: 11-24-2023 End: 93-05-0078Qgupsom encounter procedureDO Vernon Greene Work Phone: [facility] [address] Work Phone: Start: 14-79-5185Sjv-patient / Non-visitDO Vernon Greene Work Phone: [facility] Work Phone: Start: 10-20-2023 End: 74-65-0682pgvhwmaqokKygclxxkh [facility] Work Phone: Start: 10-20-2023 End: 26-88-5632Abbkato encounter procedureUn[facility] Work Phone: Start: 67-15-8101Dsc-patient / Non-visitDO Vernon Greene Work Phone: [facility] Work Phone: Start: 10-07-2023 End: 75-23-2483epptesjminPxaihouk Ball Other [employer] [facility] [employer] Other Start: 85-48-5419Flnonlqxb encounterBenshadymin Jean [facility] Medical ClinicStart: 10-06-2023 End: 83-85-5673wslzlytmktEdtokluz Ball Other [employer] Other Start: 13-78-7934Gubxzjyyp encounterBenshadymin Jean Greene Medical ClinicStart: 10-01-2023 End: 28-84-9202yvrvefrkelAtwu Asaad Other [facility] [employer] Other Start: 71-58-8077Ncmyhu outpatient visit 25 minutes Vernon Greene [facility] ClinicStart: 64-73-9506Bqarcwjtv encounterImad AsaMingoG Referral CoordinatorStart: 10-01-2023 End: 01-28-1766Hrxmaje encounter procedureFirelands Physician Group-Start: 09-02-2023 End: 94-27-6049airdnxxwmeTitczwlp Ball Other [employer] Other Start: 12-52-6361Renjhclmq encounterBentuyet NyG [facility] ClinicStart: 08-29-2023 End: 37-27-5333jgypddybubGwtqbcdj Ball Other [facility] [employer] Other Start: 96-67-1890Rzyxjf outpatient visit 25 minutes Vernon Pena [facility] ClinicStart: 08-29-2023 End: 12-61-0581Vgiuvtx encounter procedureFirelands Physician Group-[facility] Work Phone: Start: 08-12-2023 End: 01-11-1106hfdsgkyfxdOvkktotu Ball Other [employer] Other Start: 33-10-5117Bmttqwvlhlov care manage srvc 14 day dischargeBenshadymin YanelyG [facility] ClinicStart: 08-12-2023 End: 59-53-9834Jnvugjp encounter procedureFirelands Physician Group-[facility] Work Phone: Start: 08-06-2023 End: 75-80-0278ydnvnzhrpwCiabkfjm Ball Other [employer] Other Start: 95-95-3470Ijmykxbci encounterBenshadymin YanelyG [facility] ClinicStart: 08-01-2023 End: 71-46-4627sfbkyzotxoLxkovpwf Ball Other [employer] Other Start: 32-74-7731Calmhbygz encounterBenjamin BallFPG [facility] ClinicStart: 07-30-2023 End: 02-32-2001pxbhyqsiqrCwtquqgj Ball Other [facility] [employer] Other Start: 08-45-5108Nvvdcntox encounterBenjamin BallFPG [facility] ClinicStart: 07-16-2023 End: 20-58-4923duycpptaonJuryobl Ditty Other [facility] [employer] Other Start: 31-96-6921Mwcvjnrik encounterCameron DittyFPG Referral CoordinatorStart: 07-13-2023 End: 99-54-3579egrktnrhkbMhsjllem Ball Other [facility] [employer] Other Start: 61-69-5389Ozaqcznkm encounterBenjamin BallFPG [facility] ClinicStart: 07-10-2023 End: 39-03-1825novvcyjvdxLhjoyaoc Ball Other [facility] [employer] Other Start: 82-41-8326Luwlvr outpatient visit 25 minutes Vernon BallFPG [facility] ClinicStart: 57-14-9447Uckyvkwzd encounterBenjamin BallFPG [facility] ClinicStart: 85-23-1411Xgdowjdgx encounterBenjamin BallFPG [facility] ClinicStart: 07-04-2023 End: 05-64-8323Voxtnnnxm to same day surgery centerDO Vernon Ball Work Phone: [facility] HospitalStart: 07-04-2023 End: 54-60-7115twamiuugdqEJ Vernon Ball Work Phone: [facility] Work Phone: Start: 07-02-2023 End: 71-04-1445jkjlldlcikNwvfmt Pily Other [employer] Other Start: 56-83-9098Cqqykc outpatient visit 25 minutes Erickson Chua OrthopedicsStart: 05-21-2023 End: 91-50-9160ayvsxstsjgWavkuoqa Ball Other [employer] Other Start: 25-71-4970Thcbvnjgh encounterBenjamin BallFPG [facility] ClinicStart: 05-20-2023 End: 57-58-1682ndmteovfuiQfpptxtd Ball Other [employer] Other Start: 16-42-5123Gjfwhai encounter procedureBenjamin BallFPG [facility] ClinicStart: 02-27-2023 End: 40-42-7150gsjumtrbzpBlysuy Pily Other [facility] [employer] Other Start: 91-12-5602Kudphqovi encounterJustin Yeny Chua OrthopedicsStart: 02-26-2023 End: 76-46-9653Rmvapab encounter procedureDO Erickson Nascimento Work Phone: [facility] Start: 02-26-2023 End: 29-26-2644pxnwcrfgykTK Erickson Nascimento Work Phone: [facility] Work Phone: Start: 95-52-3717Mhkkgm outpatient new 45 minutes Erickson Chua OrthopedicsStart: 02-17-2023 End: 82-42-5893vbftrcqsqcIuqkiwax Ball Other [employer] Other Start: 45-70-7259Cvfkgi outpatient visit 25 minutes Vernon BallFP[facility] ClinicStart: 01-09-2023 End: 57-84-1187ywibbyilgbKktzvnmi Ball Other [employer] Other Start: 08-37-5875Yfmgkzuum encounterBenjamin BallFPG [facility] ClinicStart: 12-24-2022 End: 98-20-5175rqzjvkhapgXzitnpnw Ball Other [employer] Other Start: 15-87-0501Oyzodcmii encounterBenjamin BallFPG [facility] ClinicStart: 11-26-2022 End: 50-94-3566imdhwbtfrsWvjxtvnj Ball Other [employer] Other Start: 30-46-3953Eyahxvfsv encounterBenjamin BallFPG [facility] ClinicStart: 11-25-2022 End: 20-80-1540ysgfdfmybqUNHNJSPO BALLFacility:H3Ktlax: 11-18-2022 End: 55-47-9814chtzsytukjEvgzbzpr Ball Other [employer] Other Start: 62-29-4820Bvjxyd outpatient visit 25 minutes Vernon BallFPG [facility] ClinicStart: 11-15-2022 End: 82-52-2783cfibpcdzndUQ NONE LISTED REQUESTFacility:L1Ncdgp: 11-07-2022 End: 40-78-4025uulnzujodpHpbaight Ball Other [employer] Other Start: 12-85-5953Rinjtrcbl encounterBenjamin BallFPG [facility] ClinicStart: 08-08-2022 End: 91-39-5091vebceidbctSCOCPSRB BALLFacility:O4Qhpkr: 05-15-2022 End: 12-47-8874puyckofwobQECTYOER BALLFacility:J9Nmpft: 05-09-2022 End: 28-64-7030vowhvxwosyOK NONE LISTED REQUESTFacility:H1 Procedures DateProcedureProcedure DetailPerforming ClinicianStart: 60-91-9464Nmxyr ribs uni w/posteroant ch minimum 3 viewsLindssvetlana Payan CONTACT CENTRE SUPERVISOR Work Phone: Start: 56-87-8425Rgmsj X-ray of bilateral handsDO Vernon Greene Work Phone: Start: 10-14-0745Q-ray of both kneesDO Vernon Greene Work Phone: Start: 68-05-2850Ijlu reduction of fracture with internal fixationDO Vernon Greene Work Phone: Start: 06-98-1992Tcypw X-ray of left elbowDO Erickson Pily Work Phone: Start: 60-25-0011KQC screeningBENJAMIN BALLComment on above:Performed By: #### [facility] #### [facility] [address] [place] [address] Dr. Ginger Keane Plan of Treatment DateCare ActivityDetailAuthorStart: 60-20-8697Pledyczfv complement CH50 level Doctors Hospitaltart: 46-05-2427Mklghpahz B core antibody measurementDoctors Hospitaltart: 79-28-2662TjdchpoyyDoctors Hospitaltart: 96-21-8369Qqqupnt referralUc Medical Center Work Phone: Start: 94-16-0886McywdidgvMercy Health [facility] Regional Medical Center24 hour urine measurementMercy Health [facility] Regional Medical CenterAdenosine monophosphate.cyclic [Moles/volume] in Serum or [facility] HospitalAlbumin [Mass/volume] in Serum or [facility] Albumin/Globulin ratioMercy Health [facility] Regional Medical CenterComplement C3 [Mass/volume] in Serum or [facility] HospitalComplement C4 [Mass/volume] in Serum or [facility] HospitalComprehensive metabolic 1999 panel - Serum or [facility] Comprehensive metabolic 1999 panel - Serum or [facility] HospitalComprehensive metabolic 2000 panel - Serum or [facility] HospitalElectrophoresis: acrnl-8-kdkypmfcPgxgvynihMercy Health [facility] Medical Center Electrophoresis: dffif-8-lrummslkOkvzrbwhiMercy Health [facility] Center Electrophoresis: beta-globulinMercy Health Springfield Regional Medical CenterElectrophoresis: gamma globulinMercy Health [facility] Regional Medical CenterGlobulin [Mass/volume] in Serum [facility] CenterHepatitis B virus surface Ab [Presence] in SerumMercy Health Springfield Regional Medical CenterHepatitis B virus surface Ag [Presence] in Serum or Plasma by ImmunoassayMercy Health Springfield Regional Medical CenterHepatitis C virus IgG Ab [Presence] in Serum or Plasma by ImmunoassayMercy Health Springfield Regional Medical CenterHomogenous nuclear Ab pattern [Titer] in SerumMercy Health Springfield Regional Medical CenterIgA [Mass/volume] in Serum or PlasmaMercy Health Springfield Regional Medical CenterIgG [Mass/volume] in Serum or [facility] HospitalIgM [Mass/volume] in Serum or [facility] HospitalImmunofixation for UrineMercy Health Springfield Regional Medical CenterKappa light chains.free [Mass/volume] in Parkwood HospitalKapp light chains.free/Lambda light chains.free [Mass Ratio] in Parkwood HospitalLambda light chains.free [Mass/volume] in Serum or [facility] Measurement of monoclonal protein concentrationMercy Health [facility] Regional Medical Center Microalbumin [Mass/volume] in UrineMercy Health Springfield Regional Medical Center Myeloperoxidase Ab [Units/volume] in Serum by ImmunoassayMercy Health Springfield Regional Medical CenterNeutrophil cytoplasmic Ab.classic [Titer] in Serum by ImmunofluorescenceMercy Health Springfield Regional Medical CenterNeutrophil cytoplasmic Ab.perinuclear.atypical [Titer] in Serum by ImmunofluorescenceMercy Health Springfield Regional Medical CenterNuclear Ab [Titer] in SerumMercy Health Springfield Regional Medical CenterP- ANCA measurementMercy Health [facility] Regional Medical CenterPatient EducationLow back pain in adultsGrant Hospital Work Phone: Patient referralUc Medical Center Work Phone: Protein [Mass/volume] in Serum or PlasmaMercy Health Springfield Regional Medical CenterProtein [Mass/volume] in UrineMercy Health Springfield Regional Medical CenterProteinase 3 Ab [Units/volume] in Serum by ImmunoassayMercy Health Springfield Regional Medical CenterRheumatoid factor [Units/volume] in Serum or PlasmaDoctors Hospitalerum immunofixationMercy Health [facility] Regional Medical CenterXR Lumbar spine ViewsFirelands Regional Medical [facility] Immunizations Immunization DateImmunizationNotesCare RshpfslmOzdldfkw68-52-4307spkjkrampgfs polysaccharide vaccine, 23 Wilfredo Greene Other [facility]10-31-2017diphtheria, tetanus toxoids and acellular pertussis vaccine, unspecified formulation Vernon Greene Other [facility]10-31-2017 pneumococcal conjugate vaccine, 13 valTerri Greene Other [facility] Payers DatePayer CategoryPayerPolicy [id number] MEDICARE ADVANTAGE [facility] MEDICARE ADVANTAGE [id number] 2023-Present [address] [place] [id number] 1960Medicare [id number] 2..[id number]-[id number] 2..[id number] 2..1.585595.3.57[id number] 2..[id number] 2.840.[id number] [id number] [id number] 2..1.0[id number] 2.840.1.1[id number] 2.840.1.704105.3.579.2.531 [id number] 2..840.1.8[id number] 2..840.1.621719.3.579.2.531 Social History DateTypeDetailFacilitySex Assigned At [facility] [employer] Other Start: 28-47-7084Dzj Assigned At [facility]ertart: 07-04-2023 End: 26-39-2603Vcgjcxl smoking status NHISEx-smoker (finding)[facility]ctors Hospitaltart: 85-96-7514Nutcedm smoking status NHISNever smoked tobacco [facility] HealthcareStart: 44-75-3844Yvvnznk use and exposureSmokeless tobacco non-userRIVERTON HOSPITAL HealthcareStart: 53-25-4597Fibkuopja beverage intakeCurrent drinker of alcohol (finding)[facility] HealthcareStart: 97-96-2942Wtm assigned at [facility] carolinaNot on fileRIVERTON HOSPITAL HealthcareStart: 09-24-2024 End: 01-96-4317ZuoDxen (finding)[facility] Goals DatePatient GoalDesired Activity/State Clinical Notes 11-18-2022 to 09-24-2024 Note Date & PmyaShilNwblsekn39-41-6268 Evaluation note* Diagnosis Onset Date Resolution Status Admit Date ASHD (arteriosclerotic heart disease) acuteJanuary 2024 11:26amHypercholesterolemiaacuteJanuary 2024 11:26amHypoxiaacuteJanuary 2024 11:26amILD (interstitial lung disease) acuteJanuary 2024 11:26amLow back painacuteJanuary 2024 11:26am Nicotine dependence, cigarettes, in remissionacuteJanuary 2024 11:26am Rheumatoid arthritis involving both hands with positive rheumatoid factoracute September 24, 2024 11:26amType 2 diabetes mellitus with hyperglycemiaacute September 24, 2024 11:26amLow back painacuteFebruary 2024 10:50am Rheumatoid arthritis involving both hands with positive rheumatoid factoracute October 28, 2024 10:50am [facility] Work Phone: 1(155) 326-180909-16-2024 History of Present illness Narrative* Angeles Payan, [...] w chest anteroposterior documented in this encounterSaint John's Saint Francis HospitalPmjtizpcux20-00-2362 Evaluation note* Encounter Date Diagnosis Assessment Notes Treatment Notes Treatment Clinical Notes Oct, Interstitial lung disease (ICD-1 0 - J84.9) Oct,Hypoxia (ICD-10 - R09.02) Oct,Nicotine dependence, cigarettes, in remission (ICD-10 - F17.211)Age started 17 1 ppd Age quit 52 [employer] Other 01-31-2024 Evaluation note* Encounter Date Diagnosis Assessment Notes Treatment Notes Treatment Clinical Notes Sep, Mucopurulent chronic bronchitis (ICD-10 - J41.1) Instructed on deep breathing and cough exercises. Increase activity, avoid prolonged lounging. Hydrate and use Mucolytics to assist in clearing secretions. Continue MAURO every 4 hours as needed Sep,neumonia due to Coronavirus disease 2018 (ICD-10 - J12.82)Treated w/ Remdesevir and Decadron but required supplemental oxygen upon d/c home. Healthy diet, hydrate and increase activity. Recheck CXR and consider CT chest. Sep,Hypoxia (ICD-10 - R09.02)Continue supplemental oxygen to maintain Psat > 90%. Continues to desaturate, while on supplemental oxygen, to high 80s. - however severity less w/ increased activity since discharge from the hospital. Slow progress, discussed referral to Pulmonary Clinic Sep,SHD (arteriosclerotic heart disease) (ICD-10 - I25.10)This patient is stable without activity related CP, dyspnea or lightheadedness. They are instructedto continue exercise and AHA diet plan. Continue secondary prevention measures. No s/s CHF Does have pedal edema w/o orthopnea or PND. Sep,ontrolled type 2 diabetes mellitus with hyperglycemia, without long-term current use of insulin (ICD-10 - E11.65)This patient is following a comprehensive diabetic treatment [...] office visit. Continue regular routine monitoring of A1C,Microalbumin, Dilated eye exam and Foot exam Sep,Sinus tachycardia (ICD-10 - R00.0)Hydrate w/ minimum 48oz fluids daily. Continue Boost drinks. Increase Metoprolol to 50mg qd. EKG scheduled Sep,OVID-19 (ICD-10 - U07.1)Post COVID syndrome w/ fatigue, poor appetite, cough, dyspnea and hypoxia Sep,Nicotine dependence, cigarettes, in remission (ICD-10 - F17.211)Age started 17 1 ppd Age quit 52 Continue abstinence. Quit 2002, doesn't qualify for LDCT Sep,OtherMucolytics to assist in mobilization of secretions. Continue MAURO every 4-6 hours as needed. CXR, f/u from COVID infection [employer] Other 12-29-2023 Evaluation note* Encounter Date Diagnosis Assessment Notes Treatment Notes Treatment Clinical Notes Aug, Pneumonia due to Coronavirus dis ease 2018 (ICD-10 - J12.82) Continue IS every hour. Continue supplemental oxygen to maintain Psat > 90% Continue MDI every 4hours as needed to mobilize secretions Increase activity as tolerated Aug,hronic obstructive pulmonary disease with (acute) exacerbation (ICD-10 - J44.1)Added to lung impairment from COVID infection. Mobilized secretions w/ IS and MDI Cough and deep breathing exercises. Aug,Hypoxia (ICD-10 - R09.02)Maintain sats > 90% COntinue supplemental oxygen. Aug,SHD (arteriosclerotic heart disease) (ICD-10 - I25.10)This patient is stable without activity related CP, dyspnea or lightheadedness. They are instructedto continue exercise and AHA diet plan. Continue secondary prevention measures. Aug,ontrolled type 2 diabetes mellitus with hyperglycemia, without long-term current use of insulin (ICD-10 - E11.65)This patient is following a comprehensive diabetic treatment [...] Slowly improving post infection. Continue present treatment Aug,Nicotine dependence, cigarettes, in remission (ICD-10 - F17.211)Age started 17 1 ppd Age quit 52 Continue abstinence [employer] Other 12-12-2023 Evaluation note* Encounter Date Diagnosis Assessment Notes Treatment Notes Treatment Clinical Notes Aug, COVID-19 (ICD-10 - U07.1) Continue isolation for 10 days. If he is afebrile and feeling better w/ resolving symptoms, can stop wearing masks. He has natural immunity for now but if favors vaccination, would revaccinate in 3 mo. Aug,neumonia due to Coronavirus disease 2018 (ICD-10 - J12.82)Cough and deep breathing exercises. Continue Albuterol MDI 3-4x daily to mobilize secretions. Activity as tolerated. Aug,hronic obstructive pulmonary disease with (acute) exacerbation (ICD-10 - J44.1)Finish steroids. Continue Albuterol every 4 hours as needed to mobilize secretions. Push fluids, cough/deep breathing exercises. Aug,Hypoxia (ICD-10 - R09.02)Continue supplemental oxygen to maintain Psat > 90% Once Psat remains > 90% w/ activity, can begin check Psat on RA. Goal is Psat > 90% Removal of oxygen at night should be last task. Aug,SHD (arteriosclerotic heart disease) (ICD-10 - I25.10)This patient is stable without activity related CP, dyspnea or lightheadedness. They are instructedto continue exercise and AHA diet plan. Continue secondary prevention measures. Aug,ontrolled type 2 diabetes mellitus with hyperglycemia, without long-term current use of insulin (ICD-10 - E11.65)This patient is following a comprehensive diabetic treatment [...] gradually improve over time once off steroids Aug,Nicotine dependence, cigarettes, in remission (ICD-10 - F17.211)Age started 17 1 ppd Age quit 52 Continue abstinence Likely contributes to his COVID related lung infection and hypoxia. MDI and oxygen for now. [employer] Other 12-01-2023 Evaluation note* Encounter Date Diagnosis Assessment Notes Treatment Notes Treatment Clinical Notes Aug, Weight loss (ICD-10 - R63.4) [employer] Other 11-09-2023 Evaluation note* Encounter Date Diagnosis Assessment Notes Treatment Notes Treatment Clinical Notes Jul, Unexplained weight loss (ICD-10 - R63.4) Concerning finding w/o obvious etiology. Denies loss of appetite but doesn't eat same amounts w/o stated reason. Recurrent heartburn, distal esphageal dysphagia and elevated lipase. CT abdomen to r/o hepatic, esphageal, gastric and pancreatic malignancy. Check CMP, CBC Jul,Esophageal dysphagia (ICD-10 - R13.19)Soft diet and continue daily PPI. EGD following CT results to evaluate for esophagitis and distal esophageal obstruction. Jul,Epigastric discomfort (ICD-10 - R10.13)Continue PPI and follow soft diet plan. Schedule EGD following CT results. Jul,SHD (arteriosclerotic heart disease) (ICD-10 - I25.10)This patient is stable without activity related CP, dyspnea or lightheadedness. They are instructedto continue exercise and AHA diet plan. Continue secondary prevention measures. Jul,ontrolled type 2 diabetes mellitus with hyperglycemia, without long-term current use of insulin (ICD-10 - E11.65)This patient is following a comprehensive diabetic treatment [...] Microalbumin, Dilated eye exam and Foot exam Jul,Essential hypertension (ICD-10 - I10)This patient is instructed to consume a healthy, low-fat, low-salt diet. They are also encouraged to continue exercise to achieve/maintain a normal BMI. Jul,astroesophageal reflux disease with esophagitis without hemorrhage (ICD-10 - K21.00)Diet instructions: Smaller portions, avoid eating and laying flat, avoid eating or drinking prior to bedtime. Weight loss. Jul,Serum lipase elevation (ICD-10 - R74.8)Not elevated to level consistent w/ acute pancreatitis. Broad differential: - T2DM - pancreatic tumors or inflammation - duodenal ulcer Check CT abdomen Repeat Lipase Jul,olon cancer screening (ICD-10 - Z12.11)Refer for screening colonoscopy. No change in appetite or bowel habits. No melena or hematochezia [facility] Other 11-01-2023 Evaluation note* Encounter Date Diagnosis Assessment Notes Treatment Notes Treatment Clinical Notes Jul, Left elbow pain (ICD-10 - M25.52 2) Jul,Olecranon bursitis, left elbow (ICD-10 - M70.22)Mariano returns with left olecranon bursitis and left [...] masses etiology and we will send to pathologyafterwards. Mariano presents with left elbow mass. At this juncture we have discussed the findings and diagnosis as well as reviewed appropriate imaging and performed interpretation of testing. Surgical intervention is recommended. Prior medical notes and history have been reviewed. Surgical versus non-operative management have been discussed in detail and non-operative management was given as an option. Therisks of surgical intervention were given. Pre-operative optimization [...] poor healing. I have advised against the mcfp use of narcotic pain medication. I have [...] procedure. We will get patient set up. Jul,Elbow mass, left (ICD-10 - R22.32) [facility] Other 09-19-2023 Evaluation note* Encounter Date Diagnosis [...] above visit was performed by [ ] underdirect supervision of [ ]. Document reviewed and amended by provider signed below. May,SHD (arteriosclerotic heart disease) (ICD-10 - I25.10)This patient is stable without activity related CP, dyspnea or lightheadedness. They are instructedto continue exercise and AHA diet plan. Continue secondary prevention measures. May,ontrolled type 2 diabetes mellitus with hyperglycemia, without long-term current use of insulin (ICD-10 - E11.65)This patient is following a comprehensive diabetic treatment [...] Microalbumin, Dilated eye exam and Foot exam May,Essential hypertension (ICD-10 - I10)This patient is instructed to consume a healthy, low-fat, low-salt diet. They are also encouraged to continue exercise to achieve/maintain a normal BMI. May,Hyperlipidemia type II (ICD-10 - E78.01)Instructed on diet and exercise with continued statin therapy.Discussed the beneficial effects of lo wering cholesterol in reducing the risk for cerebrovascular and cardiovascular disease. May,astroesophageal reflux disease with esophagitis without hemorrhage (ICD-10 - K21.00)Diet instructions: Smaller portions, avoid eating and laying flat, avoid eating or drinking prior to bedtime. Weight loss. May,Nicotine dependence, cigarettes, in remission (ICD-10 - F17.211)Age started 17 1 ppd Age quit 52 Continus abstinence May,High risk medication use (ICD-10 - Z79.899) May,Screening PSA (prostate specific antigen) (ICD-10 - Z12.5) [facility] Other 06-28-2023 Evaluation note* Encounter Date Diagnosis Assessment Notes Treatment Notes Treatment Clinical Notes Jan, Left elbow pain (ICD-10 - M25.52 2) Jan,Olecranon bursitis, left elbow (ICD-10 - M70.22)Mariano presents with left olecranon bursitis. At this juncture we have discussed the findings and diagnosis as well as personally reviewed appropriate imaging and performed interpretation of relatedtesting and examination with the patient in office today. Prior medical notes from Dr. Flower and history have been reviewed. Today he opts for aspiration. Today under sterile technique the patient'sleft olecranon bursa was aspirated revealing 10 cc [...] Patient was then aspirated of approximately 8 mlsof bloody appearing fluid under sterile conditions. Dressing was applied to the site. Patient may follow up as needed. Jan,OtherSee orders for this visit as documented in the electronic medical record. [facility] Other 06-19-2023 Evaluation note* Encounter Date Diagnosis Assessment Notes Treatment Notes Treatment Clinical Notes Jan, ASHD (arteriosclerotic heart dis ease) (ICD-10 - I25.10) This patient is stable without activity related CP, dyspnea or lightheadedness. They are instructedto continue exercise and AHA diet plan. Jan,ontrolled type 2 diabetes mellitus with hyperglycemia, without long-term current use of insulin (ICD-10 - E11.65)This patient is following a comprehensive diabetic treatment [...] Microalbumin, Dilated eye exam and Foot exam Jan,Essential hypertension (ICD-10 - I10)This patient is instructed to consume a healthy, low-fat, low-salt diet. They are also encouraged to continue exercise to achieve/maintain a normal BMI. Jan,Hyperlipidemia type II (ICD-10 - E78.01)Instructed on diet and exercise with continued statin therapy.Discussed the beneficial effects of lo wering cholesterol in reducing the risk for cerebrovascular and cardiovascular disease. Jan,astroesophageal reflux disease with esophagitis without hemorrhage (ICD-10 - K21.00)Diet instructions: Smaller portions, avoid eating and laying flat, avoid eating or drinking prior to bedtime. Weight loss. Monitor for now, symptoms improved w/ 12 wk course of PPI Jan,Nicotine dependence, cigarettes, in remission (ICD-10 - F17.211)Age started 17 1 ppd Age quit 52 Quit > 15 years ago No surveillance recommended Jan,Olecranon bursitis of left elbow (ICD-10 - M70.22)Aspirated bloody fluid followed by compression. Recurs and bothersome to the patient. I do not recommend repeat aspiration, refer to Orthopedics Jan,Subcutaneous nodule (ICD-10 - R22.9)Developed in the past 4 wks. Nontender and mobile. Refer to [facility] [place] [employer] Other 03-27-2023 NotePROCEDURE: XR KNEE LT 3V [...] by: VINNY MURILLO Date: 2022-11-25 10:55[facility]03-20-2023 Evaluation note* Encounter Date Diagnosis Assessment Notes Treatment Notes Treatment Clinical Notes Oct, ASHD (arteriosclerotic heart dis ease) (ICD-10 - I25.10) This patient is stable without activity related CP, dyspnea or lightheadedness. They are instructedto continue exercise and AHA diet plan. Oct,ontrolled type 2 diabetes mellitus with hyperglycemia, without long-term current use of insulin (ICD-10 - E11.65)This patient is following a comprehensive diabetic treatment [...] at the office visit. A1C: < 6% Oct,Essential hypertension (ICD-10 - I10)This patient is instructed to consume a healthy, low-fat, low-salt diet. They are also encouraged to continue exercise to achieve/maintain a normal BMI. Oct,Hyperlipidemia type II (ICD-10 - E78.01)Diet and exercise with continued statin therapy. Oct,Nicotine dependence, cigarettes, in remission (ICD-10 - F17.211) Oct,Other chronic pain (ICD-10 - G89.29) Oct,ain in left knee (ICD-10 - M25.562)Quad exercises, ice, Voltaren Gel and Tylenol. XR Oct,astroesophageal reflux disease with esophagitis without hemorrhage (ICD-10 - K21.00)Diet instructions: Smaller portions, avoid eating and laying flat, avoid eating or drinking prior to bedtime. Weight loss. Initiate PPI and if no improvement, EGD [facility] [employer] Other Evaluation noteNo InformationNortLehigh Valley Hospital–[facility] [employer] Other Evaluation noteNo assessment information available [facility] Work Phone: Evaluation note* Diagnosis Onset Date Resolution Status Inflammatory polyarthritis acute [facility] Work Phone: Evaluation note* Diagnosis Onset Date Resolution Status ASHD (arteriosclerotic heart disease) [id number] (interstitial lung disease)acute Inflammatory polyarthritisacuteNicotine dependence, cigarettes, in remission acuteSinus tachycardiaacute [facility] Work Phone: Evaluation note* Diagnosis Onset Date Resolution Status ASHD (arteriosclerotic heart disease) acuteHypoxiaacuteILD (interstitial lung disease)acuteInflammatory polyarthritis acuteNicotine dependence, cigarettes, in remissionacuteSinus tachycardiaacute ASHD (arteriosclerotic heart disease)acuteHypoxiaacuteILD (interstitial lung disease)acuteMucopurulent chronic bronchitisacuteNicotine dependence, cigarettes, in remissionacuteRheumatoid arthritis involving both hands with positive rheumatoid factoracuteType 2 diabetes mellitus with hyperglycemiaacute [facility] Work Phone: Evaluation note* Diagnosis Onset Date Resolution Status ASHD (arteriosclerotic heart disease) acuteHypercholesterolemiaacuteHypoxiaacuteILD (interstitial lung disease)acute Medicare annual wellness visit, subsequentacuteMucopurulent chronic bronchitis acuteNicotine dependence, cigarettes, in remissionacuteRheumatoid arthritis involving both hands with positive rheumatoid factoracuteScreening PSA (prostate specific antigen)acuteType 2 diabetes mellitus with hyperglycemiaacute [facility] Work Phone: Evaluation note* Diagnosis Closed fracture of multiple ribs of left side, initial encounter- Primary Rib pain on left side documented in this encounter [facility] Diagnosis Onset Date Resolution Status Admit Date ASHD (arteriosclerotic heart disease) acuteJanuary 2024 11:26amHypercholesterolemiaacuteJanuary 2024 11:26amHypoxiaacuteJanuary 2024 11:26amILD (interstitial lung disease) acuteJanuary 2024 11:26amNicotine dependence, cigarettes, in remission acuteJanuary 2024 11:26amRheumatoid arthritis involving both hands with positive rheumatoid factoracuteJanuary 2024 11:26amType 2 diabetes mellitus with hyperglycemiaacuteJanuary 2024 11:26am [facility] Work Phone: Evaluation note* Diagnosis Onset Date Resolution Status Admit Date ASHD (arteriosclerotic heart disease) acuteSeptember 2024 11:19amGERD (gastroesophageal reflux disease)acute May 30, 2025 11:19amHypercholesterolemiaacuteSeptember 2024 11:19amHypoxiaacuteSeptember 2024 11:19amILD (interstitial lung disease) acuteSeptember 2024 11:19amLow back painacuteSeptember 2024 11:19am Medicare annual wellness visit, subsequentacuteSeptember 2024 11:19am Nicotine dependence, cigarettes, in remissionacuteSeptember 2024 11:19am Pulmonary fibrosisacuteSeptember 2024 11:19amRequires supplemental oxygen acuteSeptember 2024 11:19amRheumatoid arthritis involving both hands with positive rheumatoid factoracuteSeptember 2024 11:19amScreening PSA (prostate specific antigen)acuteSept2024 11:19amType 2 diabetes mellitus with hyperglycemiaacuteSept2024 11:19am [facility] Work Phone: History general Narrative - Reported* Type Description Date Medical History Nonalcoholic fatty liver disease Medical HistoryHyperlipidemia type IIMedical HistoryEssential hypertension Medical HistoryASHD (arteriosclerotic heart disease)Medical HistoryControlled type 2 diabetes mellitus with hyperglycemia, without long-term current use of insulinMedical HistoryHigh risk medication useMedical HistoryAbdominal mass, unspecified abdominal locationMedical HistoryLumbar spondylosisMedical History EpistaxisMedical HistoryBenign non-nodular prostatic hyperplasia with lower urinary tract symptomsMedical HistoryNicotine dependence, cigarettes, in remissionMedical HistoryType 2 diabetes mellitus with diabetic polyneuropathy, without long-term current use of insulinSurgical HistoryLHC PTCA/[id number] Surgical [id number] HistorySEE SURGICAL [facility] [employer] Other History general Narrative - Reported* Type Description Date Medical History Nonalcoholic fatty liver disease Medical HistoryHyperlipidemia type IIMedical HistoryEssential hypertension Medical HistoryASHD (arteriosclerotic heart disease)Medical HistoryControlled type 2 diabetes mellitus with hyperglycemia, without long-term current use of insulinMedical HistoryHigh risk medication useMedical HistoryAbdominal mass, unspecified abdominal locationMedical HistoryLumbar spondylosisMedical History EpistaxisMedical HistoryBenign non-nodular prostatic hyperplasia with lower urinary tract symptomsMedical HistoryNicotine dependence, cigarettes, in remissionMedical HistoryType 2 diabetes mellitus with diabetic polyneuropathy, without long-term current use of insulinSurgical HistoryLHC PTCA/[id number] Surgical [id number] HistoryExcision left elbow mass07/2023 Hospitalization HistorySEE SURGICAL HX [facility] Other Hospital Discharge instructions Additional Instructions Orthopedic [...] prescribed. You may take Motrin or Tylenol ijel-adk-nlsnrzj if you wish. Follow-up in [address] Erickson [facility] [place], [place] [address] [phone] [facility] Work Phone: Reason for referral (narrative)* Reason *Waiting for appt Referral for recurrent left Olecranon bursa and SC nodule Diagnosis 1 Olecranon bursitis o f left elbow (M70.22) Diagnosis 2 Subcutaneous nodule (R22.9) Referral Organization [facility] linkatie Referring Provider First Name Vernon Referring Provider Last Name Jc Referring Provider Specialty Internal Nd dicine Ref[facility] Referred Provider Erickson Nascimento Referred Address [address] [facility] [place],[address] Referred Provider Specialty Orthopedic S urgery Referral [...] 02/17/2023 11:21:37 AM >received today, sent P2P [facility] Other Reason for referral (narrative)* Reason Referral for screeni ng colonoscopy and EGD Diagnosis 1 Unexplained weight l oss (R63.4) Diagnosis 2 Epigastric discomfor t (R10.13) Diagnosis 3 Serum lipase elevati on (R74.8) Diagnosis 4 Colon cancer screeni ng (Z12.11) Referral Organization [facility] berta Referring Provider First Name Vernon Referring Provider Last Name Jc Referring Provider Specialty Internal Me dicine Referred Organization [facility] Referred Provider Rochelle Woodard Referred Address [address] [place], [place],[address] Referred Provider Specialty Gastroentero logy Referral Priority [...] be done within the next 2-3 wks. [facility] Other Reason for referral (narrative)No reason for referral information availableGrant Hospital Work Phone: Summary Purpose Family History Relationship Condition Age at Onset Recorded Date/T radha Not Specified No pertinent family history Unknown fatherMalignant neoplasmUnknown Relationship Condition Age at Onset Recorded Date/T radha Not Specified No pertinent family history Unknown fatherMalignant neoplasmUnknownNot SpecifiedDiabetes mellitusUnknown Relationship Condition Age at Onset Recorded Date/T radha Not Specified No pertinent family history Unknown fatherMalignant neoplasmUnknownmotherDiabetes mellitusUnknown Advance Directives Advance Directive Response Recorded Date/ Time Advance Directives No February 26 4:16pm Advance Directive Response Recorded Date/ Time Advance Directives No February 26 3:16pm Chief Complaint and Reason for Visit Chief Complaint M25.522 Chief Complaint Left Elbow Mass Chief Complaint Tbh 2 Week Follow Up 4 Month Follow Up 1 weekReason for VisitInflammatory polyarthritis Chief Complaint 2 Week Follow Up 4 Month Follow Up 1 weekReason for VisitASHD (arteriosclerotic heart disease) [id number] Hypoxia ILD (interstitial lung disease) Inflammatory polyarthritis Nicotine dependence, cigarettes, in remission Sinus tachycardia Chief Complaint 4 Month Follow Up 1 week M35.9;Z11.59;Z79.899;D89.2 Hand pain Knee PainReason for VisitASHD (arteriosclerotic heart disease) [id number] Hypoxia ILD (interstitial lung disease) Inflammatory polyarthritis Nicotine dependence, cigarettes, in remission Sinus tachycardia Chief Complaint 1 week M35.9;Z11.59;Z79.899;D89.2 Hand pain Knee Pain Amb Documentation 3 month follow upReason for VisitASHD (arteriosclerotic heart disease) Hypoxia ILD (interstitial lung [...] Admit Date ASHD (arteriosclerotic heart disease) [facility] 2024 11:26am Hypercholesterolemia September 24, 2024 11:26am Hypoxia September 24, 2024 1 1:26am ILD (interstitial lung disease) September 24, 2024 11:26am Nicotine dependence, cigarettes, in claudia ssion September 24, 2024 11:26am 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 September 24, 2024 11:26am Type 2 diabetes mellitus with hyperglyce jeffrey September 24, 2024 11:26am Chief Complaint Admit Date 4 month f/u September 24, 2024 1 1:26am Reoccurring Back Pain October 28 10:50am Reason for Visit Admit Date ASHD (arteriosclerotic heart disease) [facility] 2024 11:26am Hypercholesterolemia September 24, 2024 11:26am [...] with hyperglyce jeffrey September 24, 2024 11:26am Low back pain October 28, 2024 10:50am 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 October 28, 2024 10:50am Chief Complaint Admit Date 4 month f/u September 24, 2024 1 1:26am Reoccurring Back Pain October 28 10:50am M05.79 Z79.899 November 17, 2024 11: 52am Chief Complaint Admit Date Wellness May 30, 2025 11:19am Reason for Visit Admit Date ASHD (arteriosclerotic heart disease) Se ptember 2024 11:19am GERD (gastroesophageal reflux disease) S eptember 2024 11:19am Hypercholesterolemia May 30 11:19am Hypoxia May 30, 2025 11:19am ILD (interstitial lung disease) Septembe r 2024 11:19am Low back pain May 30, 2025 11:19am Medicare annual wellness visit, subseque nt May 30, 2025 11:19am Nicotine dependence, cigarettes, in claudia ssion May 30, 2025 11:19am Pulmonary fibrosis May 30, 2025 11:19am Requires supplemental oxygen May 032024 11:19am 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 May 30, 2025 11:19am Screening PSA (prostate specific antigen ) May 30, 2025 11:19am Type 2 diabetes mellitus with hyperglyce [facility] May 30, 2025 11:19am Additional Source Comments REASON FOR VISIT (unrecogniz [...] section and content) DATE CREATED AUTHOR 12/02/2022 [facility] DATE CREATED AUTHOR AUTHOR'S ORGANIZ ATION 05/23/2024 [facility] DATE CREATED AUTHOR AUTHOR'S ORGANIZ ATION 11/27/2024 [facility] Care Teams (unrecognized sec tion and content) Team Status: Active Member Role Status Dates Vernon Greene DO Primary Care Provider Active Team Status: Active Member Role Status Dates Vernon Greene DO Primary Care Provider Active Start: March 29, 2025 Stephanie Spain ProviderActiveStart: March 29, 2025 Team Status: Inactive Member Role Status Dates Vernon Greene DO Primary Care Provider Active Start: May 30, 2025 End: May 30Tevin Cantu ProviderActiveStart: May 30, 2025 End: May 30, 2025 Team Status: Active Member Role Status Kinga Greene DO Primary Care Provider Active Team Status: Inactive Member Role Status Kinga Greene DO Primary Care Provide r, Attending Provider Active Start: September 24, 2024 End: September 24, 2024 Team Status: Active Member Role Status Kinga Greene DO Primary Care Provider Active Start: September 28, 2024 Marcio Lopez ProviderActiveStart: September 28, 2024 Team Status: Inactive Member Role Status Kinga Greene DO Primary Care Provide r, Attending Provider Active Start: October 28, 2024 End: October 28, 2024 Team Status: Inactive Member Role Status Dates Vernon Greene DO Primary Care Provider Active Start: November 17, 2024 End: November 17, 2024Marcio Lopez ProviderActiveStart: November 17, 2024 End: November 17, 2024 Team Status: Active Member Role Status [...] Active Start: November 24, 2023 End: November 23Marcio Dos Santos ProviderActiveStart: November 24, 2023 End: November 24, 2023 Team Status: Inactive Member Role Status Dates Vernon Greene DO Primary Care Provider Active Start: December 09, 2023 End: December 08Marcio Dos Santos ProviderActiveStart: December 09, 2023 End: December 09, 2023 Team Status: Active Member Role Status Dates Vernon Greene DO Primary Care Provider Active Start: December 22, 2023 Brayan Gottlieb ProviderActiveStart: December 22, 2023 Team Status: Active Member Role Status Kinga Greene DO Primary Care Provide r, Attending Provider Active Start: December 29, 2023 Team Status: Inactive Member Role Status Kinga Greene DO Primary Care Provide r, Attending Provider Active Start: December 30, 2023 End: December 30, 2023 Team Status: Inactive Member Role Status Kinga Nascimento DO Attending Provider Active Team Status: Inactive Member Role Status Kinga Nascimento DO Attending Provider Active Katherin James Care ProviderActive Team Status: Inactive Member Role Status Kinga [...] Care Provider Active Start: March 11, 2024 Marcio Lopez ProviderActiveStart: March 11, 2024 Team Status: Inactive Member Role Status Kinga Greene DO Primary Care Provide r, Attending Provider Active Start: May 26, 2024 End: May 26, 2024 Team Status: Active Member Role Status Dates Vernon Greene DO Primary Care Provider Active Start: July 01, 2024 Marcio Lopez ProviderActiveStart: July 01, 2024 Team Status: Active Member Role Status Dates Vernon Greene , Primary Care Provider Active Start: July 08, 2024 Marcio Lopez ProviderActiveStart: July 08, 2024 Team Status: Active Member Role Status Dates Vernon Greene , Primary Care Provider Active Start: July 15, 2024 Marcio Lopez ProviderActiveStart: July 15, 2024 Team Status: Active Member Role Status Dates Vernon Greene , Primary Care Provider Active Start: August 03, 2024 Marcio Lopez ProviderActiveStart: August 03, 2024 Team Status: Active Member Role Status Dates Vernon Greene , Primary Care Provider Active Start: August 17, 2024 Marcio Lopez ProviderActiveStart: August 17, 2024 Team Status: Active Member Role Status Dates Vernon Greene , Primary Care Provider Active Start: March 29, 2025 Stephanie Spain ProviderActiveStart: March 29, 2025 Team Status: Inactive Member Role Status Dates Vernon Greene , Primary Care Provider Active Start: May 30, 2025 End: May 30entuyet Greene DOAttprince ProviderActiveStart: May 30, 2025 End: May 30, 2025 Goals (unrecognized section and content) Goals may [...] BE BASED ON THE PRIMARY CLINICAL RECORDS. [employer] provides no warranty or guarantee of the accuracy or completeness of information in this document.
[2025-06-23 12:57] LABS: Hematocrit 39.2 % (42.0-54.0); Hemoglobin 13.5 g/dL (14.0-18.0); Immature Granulocytes Abs Auto 0.02 10^3/uL (0.00-0.03); Immature Granulocytes Pct Auto 0.2 % (0.0-0.5); Lymphocytes Absolute Auto 1.9 10^3/uL (1.2-3.8); Mean Corpuscular HGB Conc 34.4 g/dL (29.9-35.2); Mean Corpuscular Hemoglobin 31.2 pg (25.9-34.0); Mean Corpuscular Volume 90.5 fL (80.0-94.0); Platelet Count 262 10^3/uL (150-450); Red Blood Count 4.33 10^6/uL (4.70-6.10); White Blood Count 8.2 10^3/uL (4.0-11.0)
[2025-06-23 13:16] LABS: Cholesterol 109 mg/dL (<=200); HDL Cholesterol 38 mg/dL (40-60); Triglycerides 91 mg/dL (<=150); VLDL CHOLESTEROL 18.2 mg/dL
[2025-06-23 13:17] LABS: Alanine Aminotransferase 19 U/L (16-63); Albumin Globulin Ratio 0.8; Albumin Level 3.6 g/dL (3.4-5.0); Alkaline Phosphatase 80 U/L (46-116); Anion Gap 13.0; Aspartate Amino Transferase 17 U/L (15-37); Blood Urea Nitrogen 11.0 mg/dL (7.0-18.0); Calcium 8.9 mg/dL (8.5-10.1); Carbon Dioxide 28.9 mmol/L (21.0-32.0); Chloride 100 mmol/L (98-107); Estimated GFR (African America >60 (>=60 mL/min/1.73m^2); Estimated GFR (Non-African Ame >60 (>=60 mL/min/1.73m^2); Globulin 4.4 g/dL; Glucose 140 mg/dL (74-106); Potassium 3.9 mmol/L (3.5-5.1); Sodium 138 mmol/L (136-145); Total Protein 8.0 g/dL (6.4-8.2)
[2025-06-23 14:23] LABS: Microalbum Creatinine Ratio Ur 229.7 mg/g (0.0-29.9)
== END 2025-06-23 12:02 | disposition home or self-care (01) ==
LOC: LAB 12:14
PROVIDERS: PCP Internal Medicine; Visit Provider Internal Medicine
DX: E78.00 Pure hypercholesterolemia, unspecified (principal); E11.65 Type 2 diabetes mellitus with hyperglycemia; I25.10 Atherosclerotic heart disease of native coronary artery without angina pectoris; Z12.5 Encounter for screening for malignant neoplasm of prostate; M05.79 Rheumatoid arthritis with rheumatoid factor of multiple sites without organ or systems involvement; R79.89 Other specified abnormal findings of blood chemistry; Z79.899 Other long term (current) drug therapy
CPT/HCPCS: 36415; 80053; 80061; 81001; 82043; 82570; 83036; 84155; 84156; 84165; 84166; 85025; 85652; 86160; 86162; 86335; G0103

== ENCOUNTER 2025-06-23 12:17 | Outpatient (OUT) | payer MEDICARE, SELFPAY ==
--- OUTSIDE RECORDS SUMMARY | 2025-06-23 12:25 | XMS_ITS | CCD ---
Author Organization [facility]iniSyar Care Team Providers Care Accounts Receivable Collector Name Role Phone Vernon Greene Unavailable VERNON [...] Nascimento Unavailable DO Erickson Nascimento Attending Provider [phone] DO Vernon Greene Primary Care Provider [phone] Navneet Puga Unavailable Asaad, Imad Unavailable DO Vernon Greene Primary Care Provider MD Carlos Guzmán Attending Provider ANGELES PAYAN Attending Unavailable ANGELES PAYAN Referring Unavailable Unavailable Primary Care Provider Unavailchase e Vernon Greene DO Primary Care Provider Carlos Guzmán MD Attending Provider [phone] Carlos Guzmán Admitting Unavailable Vernon Greene Primary Care Unavailable Carlos Guzmán Attending Unavailable Jc, Vernon Primary Care Unavailable Carlos Guzmán Attending Unavailable Carlos Guzmán Admitting Unavailable Vernon Greene Primary Care Unavailable Carlos Gumzán Attending Unavailable Carlos Guzmán Admitting Unavailable Vernon Greene DO Primary Care Provider Dorys Freeman APRN Attending Provider Vernon Greene DO Attending Provider [phone] Medications Current Medications MedicationDrug Class(es)DatesSig (Normalized)Sig (Original)Accu-Chek Nury Plus - (20 sources)Accu-Chek Nury Plus - USE 1 STRIP TO TEST BLOOD SUGAR ONCE EVERY DAY for 90 [id number] 200 actuat albuterol 0.09 mg/actuat metered dose inhaler (20 sources)beta2-Adrenergic AgonistStart: 12-22-2023 End: 07-17-9429kzqu 2 puff(s) by mouth every six hours as needed for wheezing Albuterol Sulfate 90 mcg/actuation HFA aerosol inhaler Active 0 .ROUTE .COMPLEX 8.5 May 4:32pm INHALE 2 PUFFS BY MOUTH EVERY 6 HOURS NEEDED FOR WHEEZING OR SHORTNESS OF BREATH Complies with drug therapyStart: 12-22-2023 End: 13-66-4960fhjc 1 puff(s) by inhalation every six hours as needed for wheezingAlbuterol Sulfate 90 mcg/actuation HFA aerosol inhaler Discontinued 2 PUFF INHALATION Every 6 hoursas needed for shortness of breath or wheezing December 22, 2023 12:00am December 22, 2023 4:50pmStart: 31-48-2624kepn 2 puff(s) by inhalation every six hours [...] acid 70 mg oral tablet (1 source)BisphosphonateStart: 91-11-7850xjsk 1 tablet by mouth every week Alendronate 70 mg tablet Active 70 MG PO every week 4 28 Jennifer 17th, 2025 12:00am Complies with drug therapyaspirin 81 mg oral tablet (10 sources)Platelet Aggregation Inhibitor, Nonsteroidal Anti-inflammatory Drug Start: 88-26-8045zcff 1 capsule by mouth once dailyAspirin 81 mg Capsule Active 81 MG PO Daily July 04, 2023 12:00am Complies with drug therapyatorvastatin 80 mg oral tablet (20 sources)HMG-CoA Reductase InhibitorStart: 12-19-2023 End: 71-98-3162udbr 1 tablet by mouth once daily in the eveningAtorvastatin 80 mg tablet Active 0 .ROUTE .COMPLEX December 14, 2024 10:01pm TAKE 1 TABLET BY MOUTH EVERY DAY IN THE EVENING Complies with drug therapyStart: 07-04-2023 End: 67-93-6116bkva 1 tablet by mouth once dailyAtorvastatin 80 mg tablet Discontinued 80 MG PO Daily July 04, 2023 12:00am December 19, 2023 1:34pm dapagliflozin 10 mg oral tablet (20 sources)Sodium-Glucose Cotransporter 2 InhibitorStart: 44-74-4918obgh 1 tablet by mouth once dailyDapagliflozin Propanediol (Farxiga) 10 mg tablet Active 0 .ROUTE .COMPLEX June 21, 2024 10:43am TAKE 1 TABLET BY MOUTH EVERY DAY Complies with drug therapyStart: 07-04-2023 End: 88-61-2764mkqe 1 tablet by mouth once dailyDapagliflozin Propanediol (Farxiga) 10 mg tablet Discontinued 10 MG PO Daily July 04, 2023 12:00am June 21, 2024 10:43amhydroxychloroquine sulfate 200 mg oral tablet (9 sources)Antimalarial, Antirheumatic AgentStart: 01-46-4975nndp 1 tablet by mouth once dailyHydroxychloroquine (Plaquenil) 200 mg tablet Active 200 MG PO Daily December 01, 2023 12:00am Complies with drug therapytake 1 tablet by mouth twice daily at mealtimehydroxychloroquine (Plaquenil) 200 MG tablet TAKE 1 TABLET BY MOUTH TWICE DAILY WITH FOOD. REMEMBERYEARLY EYE EXAM Activelosartan potassium 25 mg oral tablet (20 sources)Angiotensin 2 Receptor BlockerStart: 20-90-2237gqiq 1 tablet by mouth once dailyLosartan 25 mg tablet Active 0 .ROUTE .COMPLEX June 21, 2024 10:43am TAKE 1 TABLET BY MOUTHEVERY DAY Complies with drug therapyStart: 07-04-2023 End: 48-09-4908fpzy 1 tablet by mouth once dailyLosartan 25 mg tablet Discontinued 25 MG PO Daily July 04, 2023 12:00am June 21, 2024 10:4 3ammetFORMIN hydrochloride 1000 mg oral tablet (20 sources)BiguanideStart: 52-31-9417fxds 1 tablet by mouth before breakfast Metformin 1,000 mg tablet Active 0 .ROUTE .COMPLEX 180 June 21, 2024 10:43am TAKE 1 TABLET BY MOUTH BEFORE BREAKFAST AND EVENING MEAL 90 Complies with drug therapyStart: 07-04-2023 End: 95-48-7033byvj 1 tablet by mouth once dailyMetformin 1,000 mg tablet Discontinued 1000 MG PO Daily July 04, 2023 12:00am June 21, 2024 10:43am24 hr metoprolol succinate 25 mg extended release oral tablet (20 sources)beta-Adrenergic BlockerStart: 29-77-8284ngwm 1 tablet by mouth once dailyMetoprolol Succinate 25 mg tablet extended release 24 hr Active 0 .ROUTE .COMPLEX 90 June 21, 2024 10:43am TAKE 1 TABLET BY MOUTH EVERY DAY Complies with drug therapyStart: 07-04-2023 End: 97-27-7011yukn 1 tablet by mouth once dailyMetoprolol Succinate 25 mg tablet extended release 24 hr Discontinued 25 MG PO Daily July 04, 2023 12:00am June 21, 2024 10:43ammoxifloxacin 5 mg/ml ophthalmic solution (1 source)Quinolone AntimicrobialStart: 80-78-7683Afbdwdhaxnvy 0.5 % drops Active DROPS OPHTHALMIC May 30, 2025 12:00am Complies with drug therapy mycophenolate mofetil 500 mg oral tablet (4 sources)Start: 41-44-2827bwvg 1 tablet by mouth twice dailyMycophenolate Mofetil (Cellcept) 500 mg tablet Active 500 MG PO Twice daily 60 June 24, 2024 12:00am Complies with drug therapynitroglycerin 0.4 mg sublingual tablet (20 sources)Nitrate VasodilatorStart: 07-04-2023 End: 20-89-9477iphb 1 tablet under the tongue once daily as needed for pain Nitroglycerin 0.4 mg tablet, sublingual Active 0.4 MG SUBLINGUAL Daily as needed for Chest Pain August 11, 2024 6:39pm pt has never used Complies with drug therapyNitroglycerin 0.4 MG 1 tablet Sublingual PRN Activeomeprazole 20 mg delayed release oral tablet (15 sources)Proton Pump InhibitorStart: 21-86-6339eblj 1 tablet by mouth once dailyOmeprazole 20 mg Tablet,Delayed Release (Dr/Ec) Active 20 MG PO Daily July 04, 2023 12:00am Complies with drug therapyStart: 09-75-8449gmcz 1 capsule by mouth once dailyOmeprazole 40 MG 1 capsule 30 minutes before morning meal Orally Once a day for 30 days Oct, ActiveOzempic, 1 MG/DOSE, 4 MG/3ML solution pen-injector (2 sources)Start: 79-73-7486lkosnw 1 mg by subcutaneous injection every week Ozempic, 1 MG/DOSE, 4 MG/3ML solution pen-injector INJECT 1MG SUBCUTANEOUSLY EVERY WEEK FOR 28 DAYS04/18/2024 ActivepredniSONE 5 mg oral tablet (6 sources)Start: 90-60-1595lgac 1 tablet by mouth every other dayPrednisone 5 mg tablet Active 5 MG PO .QOD September 24, 2024 1:00am Complies with drug therapyStart: 20-13-8355egvmfbNEYK (Deltasone) 5 MG tablet 05/13/2024 Active Semaglutide (14 sources)Start: 98-76-8753hxkbzh 1 mg by subcutaneous injection every week Semaglutide (Ozempic) 1 mg/dose (4 mg/3 mL) pen injector Active 1 MG SUBCUT every week 3 April 11, 2025 12:46pm Complies with drug therapyStart: 09-03-2024 End: 53-71-3351vfckrt 1 mg by subcutaneous injection every weekSemaglutide (Ozempic) 1 mg/dose (4 mg/3 mL) pen injector Discontinued 1 MG SUBCUT every week 3 September 03, 2024 2:11pm April 11, 2025 12:46pmStart: 94-21-0010sixkwz 1 mg by subcutaneous injection every weekSemaglutide (Ozempic) 1 mg/dose (4 mg/3 mL) pen injector Active 1 MG SUBCUT every week 3 2024 2:11pm Start: 65-58-2790ihxscf 1 mg by subcutaneous injection every weekSemaglutide (Ozempic) 1 mg/dose (4 mg/3 mL) pen injector Active 1 MG SUBCUT every week 3 2024 1:11pmStart: 07-19-2024 End: 62-29-4411bpodae 1 mg by subcutaneous injection every weekSemaglutide (Ozempic) 1 mg/dose (4 mg/3 mL) pen injector Discontinued 1 MG SUBCUT every week 3 July 19, 2024 9:57pm September 03, 2024 2:11pmStart: 07-19-2024 End: 85-00-6163fltkts 1 mg by subcutaneous injection every weekSemaglutide (Ozempic) 1 mg/dose (4 mg/3 mL) pen injector Discontinued 1 MG SUBCUT every week 3 July 19, 2024 8:57pm September 03, 2024 1:11pmStart: 01-28-2024 End: 83-42-3168lcxfle 1 mg by subcutaneous injection every weekSemaglutide (Ozempic) 1 mg/dose (4 mg/3 mL) pen injector Discontinued 1 MG SUBCUT every week 3 January 28, 2024 12:00am July 19, 2024 9:58pmStart: 01-28-2024 End: 39-69-6398dzcyjo 1 mg by subcutaneous injection every weekSemaglutide (Ozempic) 1 mg/dose (4 mg/3 mL) pen injector Discontinued 1 MG SUBCUT every week 3 January 27, 2024 11:00pm July 19, 2024 8:58pmStart: 10-08-8585fvemcr 1 mg by subcutaneous injection every weekSemaglutide (Ozempic) 1 mg/dose (4 mg/3 mL) pen injector Active 1 MG SUBCUT every week 3 January 28, 2024 12:00am Completed/Discontinued Medications MedicationDrug Class(es)DatesSig (Normalized)Sig (Original)Dulaglutide (20 sources)GLP-1 Receptor AgonistStart: 07-04-2023 End: 65-38-3260Suzzelbnczi (Trulicity) 3 mg/0.5 mL pen injector Discontinued 3 MG SUBCUT every week July 04, 2023 12:00am January 28, 2024 5:52pmTrulicity 3 MG/0.5ML INJECT 1 PEN SUBCUTANEOUSLY ONCE A WEEK ActiveTrulicity 3 MG/0.5ML as directed Subcutaneous ActiveDulaglutide (Trulicity) 3 mg/0.5 mL pen injector (9 sources)Start: 07-04-2023 End: 32-90-4615Npxpbqgtuiv (Trulicity) 3 mg/0.5 mL pen injector Discontinued 3 MG SUBCUT every week July 03, 2023 11:00pm January 28, 2024 4:52pmStart: 07-04-2023 End: 83-36-6471Ksquaxrccno (Trulicity) 3 mg/0.5 mL pen injector Discontinued 3 MG SUBCUT every week July 04, 2023 12:00am January 28, 2024 5:52pmStart: 82-88-7253Zirbmsdvemv (Trulicity) 3 mg/0.5 mL pen injector Active 3 MG SUBCUT every week July 03, 2023 11:00pmStart: 55-35-0431Ujobalscvyj (Trulicity) 3 mg/0.5 mL pen injector Active 3 MG SUBCUT every week July 04, 2023 12:00am meloxicam 15 mg oral tablet (20 sources)Nonsteroidal Anti-inflammatory DrugStart: 12-03-2023 End: 04-95-4568nfqw 1 tablet by mouth once dailyMeloxicam 15 mg tablet Discontinued 0 .ROUTE .COMPLEX December 03, 2023 9:57am May 26, 2024 1:31pm TAKE 1 TABLET BY MOUTH EVERY DAYStart: 10-20-2023 End: 67-65-7552qozd 1 tablet by mouth once dailyMeloxicam 15 mg tablet Discontinued 15 MG PO Daily November 03, 2023 6:58pm December 03, 2023 9:58am traMADol hydrochloride 50 mg oral tablet (13 sources)Opioid AgonistStart: 11-05-2024 End: 77-33-2386khxh 1 tablet by mouth every eight hours as needed for pain Tramadol 50 mg tablet Discontinued 50 MG PO Every 8 hours as needed for pain 21 03May 30, 2025 11:43am May 30, 2025 11:44amStart: 07-04-2023 End: 78-02-9504zlha 1 tablet by mouth every four hours [...] sources)Coronary arteriosclerosis; Translations: [Atherosclerotic heart disease of hughes coronary artery without angina pectoris]ChronicDiabetes mellitus with complications (20 sources)Polyneuropathy due to type 2 diabetes mellitus; Translations: [Type 2 diabetes mellitus with diabetic polyneuropathy]Onset: 51-88-2121Xdumypg Diabetes mellitus without complication (2 sources)Type 2 diabetes mellitus; Translations: [Type 2 diabetes mellitus without complications]96-42-6407OlhkmcdVarsybybq of lipid metabolism (20 sources)Pure hypercholesterolemia; Translations: [Familial hypercholesterolemia]Onset: 19-64-6906ZrbqpirYuevxaagrh disorders (20 sources)Gastro-esophageal reflux disease with esophagitis; Translations: [Gastroesophageal reflux disease with esophagitis without hemorrhage]01-19-2025 ChronicEssential hypertension (20 sources)Essential hypertension; Translations: [Essential (primary) hypertension]Onset: 60-05-5496TwlcojmVxmczgytrcy of prostate (20 sources)Lower urinary tract symptoms due to benign prostatic hypertrophy; Translations: [Benign prostatic hyperplasia with lower urinary tract symptoms] ChronicOther aftercare (20 sources)H/O: high risk medication; Translations: [Other care home (current) drug therapy]EpisodicOther aftercare (2 sources)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; Translations: [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]Onset: 98-81-7275WmilsgqnEwgff connective tissue disease (2 sources)Disorder of connective tissue; Translations: [Polymyalgia rheumatica] 92-68-8863MreiennZkgvz connective tissue disease (3 sources)Olecranon bursitis, left [...] sources)Interstitial lung disease; Translations: [Interstitial pulmonary disease, unspecified]29-34-1855ChsauhcQkwlyxn on above:CT chest: interstitial changes, pulmonary fibrosis - T chest: interstitial changes, pulmonary fibrosis - 04/2024,CT chest: peripheral fibrosis - 10/2024Other lower respiratory disease (9 sources)Interstitial pulmonary disease, unspecified; Translations: [Postinflammatory pulmonary fibrosis]ChronicOther lower respiratory disease (6 sources)Fibrosis of lung; Translations: [Pulmonary fibrosis, unspecified] 47-62-7662DhueretSgypt lower respiratory disease (12 sources)Hypoxemia; Translations: [Hypoxemia]EpisodicOther lower respiratory disease (10 sources)Hypoxia; Translations: [Hypoxemia]82-33-9494JwgimjdbKtaek nervous system disorders (20 sources)Chronic pain; Translations: [...] for screening for malignant neoplasm of colon]Onset: 06-59-5203YkqaayyuVwcdiiz on above:PSA: 0.9 - Jun 2024,Other skin disorders (1 source)Localized swelling, mass and lump, unspecifiedEpisodicOther skin disorders (1 source)Localized swelling, mass and lump, left upper limbEpisodicOther skin disorders (10 sources)Localized swelling, mass and lump, unspecified upper limb; Translations: [Elbow mass]27-67-5809ZggeamkmMgqbv upper respiratory disease (20 sources)Bleeding from nose; Translations: [Epistaxis]EpisodicRespiratory failure; insufficiency; arrest (adult) (2 sources)Dependence on supplemental oxygen; Translations: [Dependence on supplemental oxygen]81-02-6426RxmnskgXdpjoophnm arthritis and related disease (20 sources)Inflammatory polyarthropathy; Translations: [Inflammatory polyarthropathy]Onset: 758912-80-8169QqfymfjHxvxpgesdot; intervertebral disc disorders; other back problems (20 sources)Lumbar spondylosis; Translations: [Spondylosis without myelopathy or radiculopathy, lumbar region]ChronicSpondylosis; intervertebral disc disorders; other back problems (8 sources)Low back pain; Translations: [Low back pain]15-96-4458Kteiwnzo Substance-related disorders (20 sources)Tobacco user; Translations: [Nicotine dependence, cigarettes, in remission]ChronicSystemic lupus erythematosus and connective tissue disorders (1 source)Systemic involvement of connective tissue, unspecified; Translations: [Systemic involvement of connective tissue, unspecified]Onset: 41-77-2939Ddixntx Viral infection (12 sources)COVID-19; Translations: [Pneumonia due to COVID-19 virus]10-18-2023 Episodic Past or Other Problems Problem ClassificationProblemDateDocumented DateEpisodic/ChronicEsophageal disorders (5 sources)Esophageal disordersOther connective tissue disease (1 source)Pain in right hand; Translations: [Pain in right hand]Onset: 66-18-0995WdzhaeghWptsi fractures (2 sources)Closed fracture of multiple left ribs; Translations: [Multiple fractures of ribs, left side, initial encounter for closed fracture]05-17-2024 EpisodicOther lower respiratory disease (2 sources)Rib pain; Translations: [Pleurodynia]65-94-9679KazocplxPbbpohvoq (except that caused by tuberculosis or sexually transmitted disease) (3 sources)Pneumonia (except that caused by tuberculosis or sexually transmitted disease)Viral infection (2 sources)COVID-19 Results Test NameValueInterpretationReference RangeFacilityBasophils Auto (Bld) [#/Vol] Ordered By: Dorys Freeman on 63-43-8655Lcyfkacov (Bld) [#/Vol]0.0 10 3/uL 0.0-0.1FPomerene HospitalBasophils/100 WBC Auto (Bld)Ordered By: Dorys Freeman on 76-04-2231Ruoldfnay/100 WBC (Bld)0.4 %0.2-2.0[facility] CenterEosinophils/100 WBC Auto (Bld)Ordered By: Dorys Freeman on 28-04-3928Pcoflgvjjwi/100 WBC (Bld)1.6 %0.9-7.0[facility] CenterErythrocyte distribution width Auto (RBC) [Ratio]Ordered By: Dorys Freeman on 76-05-3724Peeubqskphu distribution width (RBC) [Ratio]13.7 % 11.0-15.0[facility] CenterGlobulin Calc (S) [Mass/Vol]Ordered By: Dorys Freeman on 83-27-6146Ctymwinm (S) [Mass/Vol]4.4 g/dLSalem Regional Medical CenterGlomerular filtration rate (GFR) estimation in non- AmericanOrdered By: Dorys Freeman on 26-49-8494CUS/1.73 sq M.predicted among non-blacks MDRD (S/P/Bld) [Vol rate/Area]55 mL/min/{1.73_m2}Low>=60 mL/min/1.73m 2FPomerene HospitalHematocrit Auto (Bld) [Volume fraction]Ordered By: Dorys Freeman on 79-03-9978Ppeoukrziw (Bld) [Volume fraction]41.6 %Low42.0-54.0[facility] CenterHemoglobin [Mass/volume] in BloodOrdered By: Dorys Freeman on 44-45-0323Tsgqxrrqjb (Bld) [Mass/Vol]14.1 g/dL14.0-18.0[facility] CenterLaboratory - Chemistry and Chemistry - challengeOrdered By: Dorys Freeman on 03-29-2025 Albumin [Mass/Vol]3.6 g/dL3.4-5.0[facility] CenterALP [Catalytic activity/Vol]76 U/B24-235XyfanjaemSalem Regional Medical CenterALT [Catalytic activity/Vol]25 U/Y59-18OlmmtxnpySalem Regional Medical CenterAST [Catalytic activity/Vol]15 U/G76-10DamjlfmguSalem Regional Medical CenterBilirubin [Mass/Vol]0.6 mg/dL0.2-1.0[facility] CenterCalcium [Mass/Vol]9.5 mg/dL 8.5-10.1FPomerene HospitalChloride [Moles/Vol]99 mmol/L98-107 [facility] CenterCO2 [Moles/Vol]28.9 mmol/L21.0-32.0[facility] CenterCreatinine [Mass/Vol]1.28 mg/dL0.70-1.30[facility] CenterGFR/1.73 sq M.predicted MDRD (S/P/Bld) [Vol rate/Area] mL/min/{1.73_m2}>=60 mL/min/1.73m 2FPomerene HospitalGlucose [Mass/Vol]179 mg/zUPvsq21-525DjkyzlktxSalem Regional Medical CenterPotassium [Moles/Vol]4.1 mmol/L3.5-5.1FPomerene HospitalProtein [Mass/Vol] 8.0 g/dL6.4-8.2FCleveland Clinic Children's Hospital for Rehabilitationodium [Moles/Vol]139 mmol/L 136-145[facility] CenterUrea nitrogen [Mass/Vol]14.0 mg/dL 7.0-18.0[facility] CenterUrea nitrogen/Creatinine [Mass ratio] 10.9 mg/mgSalem Regional Medical CenterLaboratory - Hematology and Cell countsOrdered By: Dorys Freeman on 89-41-3172AER (Bld) [Velocity]31 mm/hHigh <=20[facility] CenterImmature granulocytes/100 WBC (Bld)0.2 % 0.0-0.5FPomerene HospitalLeukocytes [#/volume] corrected for nucleated erythrocytes in Blood by Automated counOrdered By: Dorys Freeman on 05-99-9894FWA corrected for nucl RBC Auto (Bld) [#/Vol]9.2 10 3/uL4.0-11.0 [facility] CenterLymphocytes Auto (Bld) [#/Vol]Ordered By: Dorys Freeman on 40-57-7677Laynkevoupl (Bld) [#/Vol]1.7 10 3/uL1.2-3.8[facility] CenterLymphocytes/100 WBC Auto (Bld)Ordered By: Dorys Freeman on 32-31-0014Yqobsjjtkqv/100 WBC (Bld)19.0 %Low20.5-60.0[facility] Auto (RBC) [Entitic mass]Ordered By: Dorys Freeman on 10-74-1464ZHR (RBC) [Entitic mass]31.3 pg25.9-34.0[facility] CenterMCHC Auto (RBC) [Mass/Vol]Ordered By: Dorys Freeman on 90-18-5488QQUQ (RBC) [Mass/Vol]33.9 g/dL29.9-35.2FPomerene HospitalMCV Auto (RBC) [Entitic vol]Ordered By: Dorys Freeman on 98-87-5813YCS (RBC) [Entitic vol]92.2 fL80.0-94.0[facility] CenterMonocytes Auto (Bld) [#/Vol]Ordered By: Dorys Freeman on 38-24-9770Yycwtkhyq (Bld) [#/Vol]0.6 10 3/uL0.3-0.8[facility] CenterMonocytes/100 WBC Auto (Bld)Ordered By: Dorys Freeman on 84-63-8736Znsqkrduy/100 WBC (Bld)6.4 %1.7-12.0[facility] CenterNeutrophils Auto (Bld) [#/Vol]Ordered By: Dorys Freeman on 53-90-7543Uonjmxiqwle (Bld) [#/Vol]6.6 10 3/uLHigh1.4-6.5FPomerene HospitalNeutrophils/100 WBC Auto (Bld)Ordered By: Dorys Freeman on 41-13-7085Ohyydkohnlw/100 WBC (Bld)72.4 %43.0-75.0[facility] CenterNo Panel InformationOrdered By: Dorys Freeman on 55-48-0171Yrndensmxkl # (Auto)0.2 10 3/uL0.0-0.7FPomerene HospitalImmature Granulocyte # (Auto)0.02 10 3/uL0.00-0.03[facility] CenterPlatelet mean volume Auto (Bld) [Entitic vol]Ordered By: Dorys Freeman on 78-16-5803Osmepzbn mean volume (Bld) [Entitic vol]9.8 fL9.5-13.5FPomerene Hospital Platelets Auto (Bld) [#/Vol]Ordered By: Dorys Freeman on 54-76-8200Dxmwlucsf (Bld) [#/Vol]273 10 3/iE332-803NnmhrbwdmSalem Regional Medical CenterRBC Auto (Bld) [#/Vol]Ordered By: Dorys Freeman on 19-53-5449KEF (Bld) [#/Vol]4.51 10 6/uLLow 4.70-6.10[facility] Hospitalerum or plasma albumin/globulin mass ratioOrdered By: Dorys Freeman on 64-22-6095Ewpgvgc/Globulin [Mass ratio]0.8 {ratio}[facility] Hospitalerum or plasma anion gap determination Ordered By: Dorys Freeman on 90-67-0990Hopue gap [Moles/Vol]15.2 mmol/L [facility] CenterAlanine aminotransferase [Enzymatic activity/volume] in Serum or PlasmaOrdered By: Carlos Guzmán on 54-04-1700MOQ [Catalytic activity/Vol]Alanine aminotransferase [Enzymatic activity/volume] in Serum or Plasma7-[facility] CenterAlbumin [Mass/volume] in Serum or Plasma by Bromocresol green (BCG) dye binding methoOrdered By: Carlos Guzmán on 76-77-3323Zhidygz BCG dye [Mass/Vol]Albumin [Mass/volume] in Serum or Plasma by Bromocresol green (BCG) dye binding metho3.5-5.7FPomerene HospitalAlkaline phosphatase [Enzymatic activity/volume] in Serum or PlasmaOrdered By: Carlos Guzmán on 94-98-5507UPL [Catalytic activity/Vol] Alkaline phosphatase [Enzymatic activity/volume] in Serum or Supbft54-163 [facility] CenterAspartate aminotransferase [Enzymatic activity/volume] in Serum or PlasmaOrdered By: Carlos Guzmán on 92-58-2820ZAP [Catalytic activity/Vol]Aspartate aminotransferase [Enzymatic activity/volume] in Serum or WhbnkdKow22-31KnxqoopfeSalem Regional Medical CenterBasophils Auto (Bld) [#/Vol]Ordered By: Carlos Guzmán on 54-61-7659Tlnoncpvk (Bld) [#/Vol]Automated basophil count0.0-0.2FPomerene HospitalBasophils/100 WBC Auto (Bld)Ordered By: Carlos Guzmán on 15-29-4514Vgiisbojx/100 WBC (Bld)Automated basophil %.[facility] CenterBilirubin.direct [Mass/volume] in Serum or PlasmaOrdered By: Carlos Guzmán on 88-79-8935Yvtxovmui.direct [Mass/Vol]Bilirubin.direct [Mass/volume] in Serum or Plasma0.03-0.18FPomerene HospitalBilirubin.total [Mass/volume] in Serum or PlasmaOrdered By: Carlos Guzmán on 60-30-6902Sgqpbocji [Mass/Vol]Bilirubin.total [Mass/volume] in Serum or Plasma0.3-1.0[facility] CenterComplete Blood Count Auto Diffon 80-52-8502Foujjyhzp (Bld) [#/Vol]0.1 10*3/uLNormal 0.0-0.2[facility] Physician GroupComment on above:Performed By: #### HEPATIC, CBC, ESR, CREAT #### [facility] [address] [place] [address] USABasophils/100 WBC (Bld)0.8 %Normal.[facility] Physician GroupComment on above:Performed By: #### HEPATIC, CBC, ESR, CREAT #### [place] [address] USAEosinophils (Bld) [#/Vol]0.2 10*3/uLNormal0.0-0.45[facility] Physician GroupComment on above:Performed By: #### HEPATIC, CBC, ESR, CREAT #### [place] [address] USAEosinophils/100 WBC (Bld)2.0 %Normal.[facility] Physician GroupComment on above:Performed By: #### HEPATIC, CBC, ESR, CREAT #### [place] [address] USAErythrocyte distribution width (RBC) [Ratio]14.8 %Normal 12.0-14.8[facility] Physician GroupComment on above:Performed By: #### HEPATIC, CBC, ESR, CREAT #### [place] [address] USAHematocrit (Bld) [Volume fraction]41.0 %Xfrjwf00.8-50.0[facility] Physician GroupComment on above:Performed By: #### HEPATIC, CBC, ESR, CREAT #### [place] [address] USAHemoglobin (Bld) [Mass/Vol]14.2 g/fBWsmdpl19.0-17.0[facility] Physician GroupComment on above:Performed By: #### HEPATIC, CBC, ESR, CREAT #### [place] [address] USALymphocytes (Bld) [#/Vol]2.1 10*3/uLNormal1.00-4.8[facility] Physician GroupComment on above:Performed By: #### HEPATIC, CBC, ESR, CREAT #### [place] [address] USALymphocytes/100 WBC (Bld)24.7 %Normal.[facility] Physician GroupComment on above:Performed By: #### HEPATIC, CBC, ESR, CREAT #### [address]H (RBC) [Entitic mass]31.6 jdPcsdgm25.5-35.2[facility] Physician GroupComment on above:Performed By: #### HEPATIC, CBC, ESR, CREAT #### [address]V (RBC) [Entitic vol]91.0 qCYuujqa79.5-101[facility] Physician GroupComment on above:Performed By: #### HEPATIC, CBC, ESR, CREAT #### [place] [address] USAMean Corpuscular HGB Conc34.7 g/eZPtpceq96.5-35.6[facility] Physician GroupComment on above:Performed By: #### HEPATIC, CBC, ESR, CREAT #### [place] [address] USAMonocytes (Bld) [#/Vol]0.7 10*3/uLNormal0.0-0.8[facility] Physician GroupComment on above:Performed By: #### HEPATIC, CBC, ESR, CREAT #### [place] [address] USAMonocytes/100 WBC (Bld)8.6 %Normal.[facility] Physician GroupComment on above:Performed By: #### HEPATIC, CBC, ESR, CREAT #### [place] [address] USANeutrophils (Bld) [#/Vol]5.5 10*3/uLNormal1.8-7.7[facility] Physician GroupComment on above:Performed By: #### HEPATIC, CBC, ESR, CREAT #### [place] [address] USANeutrophils/100 WBC (Bld)63.9 %Normal.[facility] Physician GroupComment on above:Performed By: #### HEPATIC, CBC, ESR, CREAT #### [place] [address] USANRBC%0.0 /100{WBC}Normal0-0.5[facility] Physician Group Comment on above:Performed By: #### HEPATIC, CBC, ESR, CREAT #### [place] [address] USAPlatelet mean volume (Bld) [Entitic vol]8.4 fLNormal 6.6-10.1[facility] Physician GroupComment on above:Performed By: #### HEPATIC, CBC, ESR, CREAT #### [place] [address] USAPlatelets (Bld) [#/Vol]264 10*3/yJBunqtk651-466Fqq [facility] Physician GroupComment on above:Performed By: #### HEPATIC, CBC, ESR, CREAT #### [place] [address] USARBC (Bld) [#/Vol]4.50 10*6/uLNormal3.90-5.60[facility] Physician GroupComment on above:Performed By: #### HEPATIC, CBC, ESR, CREAT #### [place] [address] USAWBC (Bld) [#/Vol]8.6 10*3/uLNormal4.1-10.5[facility] Physician GroupComment on above:Performed By: #### HEPATIC, CBC, ESR, CREAT #### [place] [address] USACreatinineon 57-98-9075Bnkdjwlzag [Mass/Vol]0.81 mg/dL Normal0.70-1.30[facility] Physician GroupComment on above:Performed By: #### HEPATIC, CBC, ESR, CREAT #### [place] [address] USAGFR/1.73 sq M.predicted MDRD (S/P/Bld) [Vol rate/Area] mL/min/{1.73_m2}NormalThe [facility] Physician GroupComment on above:Result Comment: PERFORMED BY: [address] [place] [id number] PATHOLOGIST [employer]S SALES ADVISOR KATHLEEN LIU M.D.Performed By: #### HEPATIC, CBC, ESR, CREAT #### [place] [id number] USACreatinine [Mass/volume] in Serum or PlasmaOrdered By: Carlos Guzmán on 67-05-2777Jrgjksbppr [Mass/Vol]Creatinine [Mass/volume] in Serum or Plasma0.70-1.30[facility] CenterEosinophils Auto (Bld) [#/Vol]Ordered By: Carlos Guzmán on 78-37-6297Aaptyjibuba (Bld) [#/Vol] Automated eosinophil count0.0-0.45[facility] Eosinophils/100 WBC Auto (Bld)Ordered By: Carlos Guzmán on 11-17-2024 Eosinophils/100 WBC (Bld)Automated eosinophil %.[facility] CenterErythrocyte Sedimentation Rateon 99-07-1073QHU (Bld) [Velocity]20 mm/hHigh 0-[facility] Physician GroupComment on above:Result Comment: PERFORMED BY: [place] [address] PATHOLOGIST PARTS SALES ADVISOR KATHLEEN LIU M.D.Performed By: #### HEPATIC, CBC, ESR, CREAT #### [facility] [address] [place] [id number] USAErythrocyte distribution width Auto (RBC) [Ratio]Ordered By: Carlos Guzmán on 41-63-2297Fjdiojyzizf distribution width (RBC) [Ratio] Erythrocyte distribution width [Ratio] by Automated count12.0-14.8[facility] CenterErythrocyte sedimentation rate by Photometric method Ordered By: Carlos Guzmán on 25-25-9582JYS Photometric method (Bld) [Velocity] Erythrocyte sedimentation rate by Photometric methodDavis Memorial Hospital0[facility] CenterGlobulin Calc (S) [Mass/Vol]Ordered By: Carlos Guzmán on 81-43-4520Nqlrqzap (S) [Mass/Vol]Serum globulin measurement by calculation (mass/volume)[facility] CenterHematocrit Auto (Bld) [Volume fraction]Ordered By: Carlos Guzmán on 82-12-3784Mxoeeqvzwq (Bld) [Volume fraction]Hematocrit [Volume Fraction] of Blood by Automated count38.8-50.0 [facility] CenterHemoglobin [Mass/volume] in BloodOrdered By: Carlos Guzmán on 55-35-3174Otkywjinly (Bld) [Mass/Vol]Hemoglobin [Mass/volume] in Blood13.0-17.0[facility] CenterHepatic Panelon 11-17-2024 Albumin [Mass/Vol]4.2 g/dLNormal3.5-5.7[facility] Physician GroupComment on above:Performed By: #### HEPATIC, CBC, ESR, CREAT #### [facility] [address] [place] [address] USAAlbumin/Globulin [Mass ratio]1.3 {ratio}NormalThe [facility] Physician GroupComment on above:Performed By: #### HEPATIC, CBC, ESR, CREAT #### [facility] [address] [place] [id number] USAALP [Catalytic activity/Vol]62 U/BFqdemi71-829Qwx [facility] Physician GroupComment on above:Performed By: #### HEPATIC, CBC, ESR, CREAT #### [facility] [address] [place] [phone] USAALT [Catalytic activity/Vol]10 U/LNormal7-52[facility] Physician GroupComment on above:Performed By: #### HEPATIC, CBC, ESR, CREAT #### [facility] [address] [place] [phone] USAAST [Catalytic activity/Vol]11 U/QYpt18-45Ppk [facility] Physician GroupComment on above:Performed By: #### HEPATIC, CBC, ESR, CREAT #### [facility] [address] [place] [phone] USABilirubin [Mass/Vol]0.7 mg/dLNormal0.3-1.0[facility] Physician GroupComment on above:Performed By: #### HEPATIC, CBC, ESR, CREAT #### [facility] [address] [place] [address] USABilirubin,Indirect0.6 mg/dLNormAscension Sacred Heart Bay Physician GroupComment on above:Performed By: #### HEPATIC, CBC, ESR, CREAT #### [facility] [address] [place] [address] USABilirubin.indirect [Mass/Vol]0.10 mg/dLNormal0.03-0.18[facility] Physician GroupComment on above:Performed By: #### HEPATIC, CBC, ESR, CREAT #### [facility] [address] [place] [address] USAGlobulin (S) [Mass/Vol]3.3 g/dLNoSelect Specialty Hospital - Durham Physician [facility] Health SystemComment on above:Performed By: #### HEPATIC, CBC, ESR, CREAT #### [facility] [address] [place] [address] USAProtein [Mass/Vol]7.5 g/dLNormal6.4-8.9[facility] Physician GroupComment on above:Performed By: #### HEPATIC, CBC, ESR, CREAT #### [facility] [address] [place] [address] USALeukocytes [#/volume] corrected for nucleated erythrocytes in Blood by Automated counOrdered By: Carlos Guzmán on 07-82-7842LXG corrected for nucl RBC Auto (Bld) [#/Vol]Leukocytes [#/volume] corrected for nucleated erythrocytes in Blood by Automated coun4.1-10.5FPomerene Hospital Lymphocytes Auto (Bld) [#/Vol]Ordered By: Carlos Guzmán on 11-17-2024 Lymphocytes (Bld) [#/Vol]Lymphocytes [#/volume] in Blood by Automated count 1.00-4.8[facility] CenterLymphocytes/100 WBC Auto (Bld)Ordered By: Carlos Guzmán on 74-23-6177Nuqiefxlgsc/100 WBC (Bld)Lymphocytes/100 leukocytes in Blood by Automated count.[facility] Auto (RBC) [Entitic mass]Ordered By: Carlos Guzmán on 77-38-3769GXB (RBC) [Entitic mass]MCH [Entitic mass] by Automated count27.5-35.2FPomerene HospitalMCHC Auto (RBC) [Mass/Vol]Ordered By: Carlos Guzmán on 82-47-8480NGMU (RBC) [Mass/Vol]MCHC [Mass/volume] by Automated count32.5-35.6FPomerene HospitalMCV Auto (RBC) [Entitic vol]Ordered By: Carlos Guzmán on 19-06-4778YFE (RBC) [Entitic vol]MCV [Entitic volume] by Automated count83.5-101 [facility] CenterMonocytes Auto (Bld) [#/Vol]Ordered By: Carlos Guzmán on 29-92-4108Jzatlvzoq (Bld) [#/Vol]Automated blood monocyte count 0.0-0.8[facility] CenterMonocytes/100 WBC Auto (Bld)Ordered By: Carlos Guzmán on 48-46-5792Ymniqwcbq/100 WBC (Bld)Automated monocyte %. [facility] CenterNeutrophils Auto (Bld) [#/Vol]Ordered By: Carlos Guzmán on 59-57-3825Mejhqufiwhy (Bld) [#/Vol]Neutrophils [#/volume] in Blood by Automated count1.8-7.7FPomerene HospitalNeutrophils/100 WBC Auto (Bld)Ordered By: Carlos Guzmán on 28-31-5989Eilmhdmzgra/100 WBC (Bld) Automated neutrophil %.[facility] CenterNo Panel Information Ordered By: Carlos Guzmán on 77-48-1419Hsjcnrrgx GFR (CKD-EPI)> 60.0 mL/Min [facility] CenterPharmacy Creatinine Clearance (ChemN/AFPomerene HospitalNucleated erythrocytes [Presence] in Blood by Automated countOrdered By: Carlos Guzmán on 15-84-6741Gbixixnkz RBC Auto Ql (Bld) Nucleated erythrocytes [Presence] in Blood by Automated count0-0.5FPomerene HospitalPlatelet mean volume Auto (Bld) [Entitic vol]Ordered By: Carlos Guzmán on 98-98-6464Mppgdnrh mean volume (Bld) [Entitic vol]Platelet mean volume [Entitic volume] in Blood by Automated count6.6-10.1FPomerene HospitalPlatelets Auto (Bld) [#/Vol]Ordered By: Carlos Guzmán on 78-03-4418Pjpbwsrfe (Bld) [#/Vol]Platelets [#/volume] in Blood by Automated chqki129-820OhqulqjguSalem Regional Medical CenterProtein [Mass/volume] in Serum or PlasmaOrdered By: Carlos Guzmán on 26-72-6703Ksskdyr [Mass/Vol]Protein [Mass/volume] in Serum or Plasma6.4-8.9[facility] CenterRBC Auto (Bld) [#/Vol]Ordered By: Carlos Guzmán on 84-41-0958PQM (Bld) [#/Vol] Erythrocytes [#/volume] in Blood by Automated count3.90-5.60[facility] Hospitalerum or plasma albumin/globulin mass ratioOrdered By: Carlos Guzmán on 19-43-3217Pplkzdx/Globulin [Mass ratio]Serum or plasma albumin/globulin mass ratioGrand Lake Joint Township District Memorial Hospitalerum or plasma non- glucuronidated bilirubin measurement (mass/volume)Ordered By: Carlos Guzmán on 37-98-1834Drapgfcyw.indirect [Mass/Vol]Serum or plasma non-glucuronidated bilirubin measurement (mass/volume)[facility] CenterWBC Auto (Bld) [#/Vol]Ordered By: Carlos Guzmán on 83-69-6640UGO (Bld) [#/Vol]Leukocytes [#/volume] in Blood by Automated count4.1-10.5FPomerene Hospital Basophils Auto (Bld) [#/Vol]on 98-15-6432Ekifdicok (Bld) [#/Vol]Automated basophil count0.0-0.1FPomerene HospitalBasophils/100 WBC Auto (Bld)on 25-96-1252Ixlztunxn/100 WBC (Bld)Automated basophil %0.2-2.0[facility] CenterEosinophils/100 WBC Auto (Bld)on 09-28-2024 Eosinophils/100 WBC (Bld)Automated eosinophil %0.9-7.0[facility] CenterErythrocyte distribution width Auto (RBC) [Ratio]on 69-66-1280Qnrxzamevij distribution width (RBC) [Ratio]Erythrocyte distribution width [Ratio] by Automated count11.0-15.0[facility] CenterEstimated glomerular filtration rate (GFR) non- Americanon 17-90-9942SPC/1.73 sq M.predicted among non-blacks MDRD (S/P/Bld) [Vol rate/Area]Estimated glomerular filtration rate (GFR) non->=60 mL/min/1.73m 2FPomerene HospitalGlobulin Calc (S) [Mass/Vol]on 96-59-4211Mkvhpnww (S) [Mass/Vol]Serum globulin measurement by calculation (mass/volume)[facility] CenterGlucose mean value [Mass/volume] in Blood Estimated from glycated hemoglobinon 22-59-8761Bedkhbd glucose Estimated from glycated hemoglobin (Bld) [Mass/Vol]Glucose mean value [Mass/volume] in Blood Estimated from glycated hemoglobinSalem Regional Medical CenterHematocrit Auto (Bld) [Volume fraction]on 92-77-9753Zobjzitzpj (Bld) [Volume fraction]Hematocrit [Volume Fraction] of Blood by Automated count42.0-54.0[facility] Hemoglobin A1c percentageon 33-41-9397VcZ4u (Bld) [Mass fraction]Hemoglobin A1c percentageHigh4.5-6.2FPomerene HospitalComment on above:ADA RECOMMENDED LIMIT 4.0 - 6.0ADA THERAPEUTIC TARGET < 7.0ACTION SUGGESTED> 7.0 Hemoglobin [Mass/volume] in Bloodon 45-53-2660Dufpbttqmq (Bld) [Mass/Vol] Hemoglobin [Mass/volume] in Blood14.0-18.0[facility] Laboratory - Chemistry and Chemistry - challengeon 89-38-7727Ocoeiey [Mass/Vol] 3.6 g/dL3.4-5.0[facility] CenterALP [Catalytic activity/Vol]72 U/O23-604QsgsqaigqSalem Regional Medical CenterALT [Catalytic activity/Vol]17 U/L 16-63[facility] CenterAST [Catalytic activity/Vol]10 U/XXyb23-81 [facility] CenterBilirubin [Mass/Vol]0.5 mg/dL0.2-1.0[facility] CenterBilirubin.direct [Mass/Vol]0.1 mg/dL0.0-0.2FPomerene HospitalCreatinine [Mass/Vol]1.12 mg/dL0.70-1.30[facility] CenterGFR/1.73 sq M.predicted MDRD (S/P/Bld) [Vol rate/Area] mL/min/{1.73_m2}>=60 mL/min/1.73m 2FPomerene HospitalProtein [Mass/Vol]7.6 g/dL6.4-8.2FPomerene HospitalLaboratory - Hematology and Cell countson 06-62-1976JRT (Bld) [Velocity]22 mm/hHigh<=20 [facility] CenterImmature granulocytes/100 WBC (Bld)0.2 %0.0-0.5 [facility] CenterLeukocytes [#/volume] corrected for nucleated erythrocytes in Blood by Automated counon 60-38-6617ZHE corrected for nucl RBC Auto (Bld) [#/Vol]Leukocytes [#/volume] corrected for nucleated erythrocytes in Blood by Automated coun4.0-11.0[facility] CenterLymphocytes Auto (Bld) [#/Vol]on 57-74-7310Ngjszdcooep (Bld) [#/Vol]Lymphocytes [#/volume] in Blood by Automated count1.2-3.8[facility] CenterLymphocytes/100 WBC Auto (Bld)on 66-42-2800Ekkxhnopzrk/100 WBC (Bld)Lymphocytes/100 leukocytes in Blood by Automated bjnrjAmu97.5-60.0[facility] CenterMCH Auto (RBC) [Entitic mass]on 62-03-0087QWQ (RBC) [Entitic mass]MCH [Entitic mass] by Automated count25.9-34.0[facility] CenterMCHC Auto (RBC) [Mass/Vol]on 88-67-6978RRHQ (RBC) [Mass/Vol]MCHC [Mass/volume] by Automated count29.9-35.2FPomerene HospitalMCV Auto (RBC) [Entitic vol]on 79-77-5531GKJ (RBC) [Entitic vol]MCV [Entitic volume] by Automated count 80.0-94.0[facility] CenterMonocytes Auto (Bld) [#/Vol]on 48-61-4932Rtvlvaekv (Bld) [#/Vol]Automated blood monocyte count0.3-0.8[facility] CenterMonocytes/100 WBC Auto (Bld)on 87-63-5427Snglgoxqk/100 WBC (Bld)Automated monocyte %1.7-12.0[facility] Neutrophils Auto (Bld) [#/Vol]on 30-67-7731Zrzxdqyxwpq (Bld) [#/Vol]Neutrophils [#/volume] in Blood by Automated count1.4-6.5FPomerene Hospital Neutrophils/100 WBC Auto (Bld)on 62-19-9514Gpgjfxyqryj/100 WBC (Bld)Automated neutrophil %43.0-75.0[facility] CenterNo Panel Informationon 73-70-4844Sxllzyapfmr # (Auto)0.2 10 3/uL0.0-0.7FPomerene HospitalImmature Granulocyte # (Auto)0.02 10 3/uL0.00-0.03[facility] CenterPlatelet mean volume Auto (Bld) [Entitic vol]on 92-03-4596Jojxkhpq mean volume (Bld) [Entitic vol]Platelet mean volume [Entitic volume] in Blood by Automated countLow9.5-13.5FPomerene HospitalPlatelets Auto (Bld) [#/Vol]on 83-13-7730Tcnhfizhk (Bld) [#/Vol]Platelets [#/volume] in Blood by Automated qsqve930-379HeiolwttwSalem Regional Medical CenterRBC Auto (Bld) [#/Vol]on 34-26-0347UTT (Bld) [#/Vol]Erythrocytes [#/volume] in Blood by Automated count Low4.70-6.10[facility] Hospitalerum or plasma albumin/globulin mass ratioon 82-52-0467Rooefcj/Globulin [Mass ratio]Serum or plasma albumin/globulin mass ratioSalem Regional Medical CenterBasophils Auto (Bld) [#/Vol]on 41-06-5884Wvcmzngsy (Bld) [#/Vol]Automated basophil count0.0-0.1 [facility] CenterBasophils/100 WBC Auto (Bld)on 08-17-2024 Basophils/100 WBC (Bld)Automated basophil %0.2-2.0[facility] CenterEosinophils/100 WBC Auto (Bld)on 57-19-9707Jebdpytzusa/100 WBC (Bld) Automated eosinophil %0.9-7.0[facility] CenterErythrocyte distribution width Auto (RBC) [Ratio]on 12-46-6189Ypyfrqmwyrr distribution width (RBC) [Ratio]Erythrocyte distribution width [Ratio] by Automated count11.0-15.0 [facility] CenterEstimated glomerular filtration rate (GFR) non- Americanon 95-72-9821JYN/1.73 sq M.predicted among non-blacks MDRD (S/P/Bld) [Vol rate/Area]Estimated glomerular filtration rate (GFR) non->=60 mL/min/1.73m 2FPomerene HospitalHematocrit Auto (Bld) [Volume fraction]on 34-06-8266Sxtzksndsc (Bld) [Volume fraction]Hematocrit [Volume Fraction] of Blood by Automated wiwnhAjv39.0-54.0[facility] CenterHemoglobin [Mass/volume] in Bloodon 16-69-5092Unseyhouvp (Bld) [Mass/Vol]Hemoglobin [Mass/volume] in Blood14.0-18.0[facility] CenterLaboratory - Chemistry and Chemistry - challengeon 52-27-4280Psoamta [Mass/Vol]3.4 g/dL3.4-5.0[facility] CenterALP [Catalytic activity/Vol]72 U/R38-697QkjifrsvxSalem Regional Medical CenterALT [Catalytic activity/Vol]16 U/S38-60NhfmmptjoSalem Regional Medical CenterAST [Catalytic activity/Vol]11 U/BBln02-50PgyrkpxtjSalem Regional Medical CenterBilirubin [Mass/Vol] 0.6 mg/dL0.2-1.0[facility] CenterCreatinine [Mass/Vol]1.17 mg/dL 0.70-1.30[facility] CenterGFR/1.73 sq M.predicted MDRD (S/P/Bld) [Vol rate/Area]mL/min/{1.73_m2}>=60 mL/min/1.73m 2FPomerene HospitalLaboratory - Hematology and Cell countson 99-88-3293JIK (Bld) [Velocity]21 mm/hHigh<=20[facility] CenterImmature granulocytes/100 WBC (Bld)0.2 %0.0-0.5FPomerene HospitalLeukocytes [#/volume] corrected for nucleated erythrocytes in Blood by Automated counon 64-97-9866KXV corrected for nucl RBC Auto (Bld) [#/Vol]Leukocytes [#/volume] corrected for nucleated erythrocytes in Blood by Automated coun4.0-11.0[facility] CenterLymphocytes Auto (Bld) [#/Vol]on 49-99-0468Mjcajfscecj (Bld) [#/Vol]Lymphocytes [#/volume] in Blood by Automated count1.2-3.8[facility] CenterLymphocytes/100 WBC Auto (Bld)on 08-17-2024 Lymphocytes/100 WBC (Bld)Lymphocytes/100 leukocytes in Blood by Automated count 20.5-60.0Pomerene HospitalH Auto (RBC) [Entitic mass]on 93-87-3562SRY (RBC) [Entitic mass]MCH [Entitic mass] by Automated count25.9-34.0 [facility] CenterMCHC Auto (RBC) [Mass/Vol]on 38-80-7163UMZK (RBC) [Mass/Vol]MCHC [Mass/volume] by Automated count29.9-35.2FPomerene HospitalMCV Auto (RBC) [Entitic vol]on 04-16-5202UPG (RBC) [Entitic vol] MCV [Entitic volume] by Automated count80.0-94.0[facility] CenterMonocytes Auto (Bld) [#/Vol]on 85-17-1512Dstykwsnr (Bld) [#/Vol]Automated blood monocyte count0.3-0.8[facility] CenterMonocytes/100 WBC Auto (Bld)on 80-50-7113Loyghnqxo/100 WBC (Bld)Automated monocyte %1.7-12.0 [facility] CenterNeutrophils Auto (Bld) [#/Vol]on 08-17-2024 Neutrophils (Bld) [#/Vol]Neutrophils [#/volume] in Blood by Automated countHigh 1.4-6.5FPomerene HospitalNeutrophils/100 WBC Auto (Bld)on 22-18-7364Jbatmghoxvs/100 WBC (Bld)Automated neutrophil %43.0-75.0[facility] CenterNo Panel Informationon 44-62-0834Duvdtibmzhd # (Auto)0.2 10 3/uL0.0-0.7FPomerene HospitalImmature Granulocyte # (Auto)0.02 10 3/uL0.00-0.03[facility] CenterPlatelet mean volume Auto (Bld) [Entitic vol]on 53-80-9702Krstaiqh mean volume (Bld) [Entitic vol]Platelet mean volume [Entitic volume] in Blood by Automated count9.5-13.5FPomerene HospitalPlatelets Auto (Bld) [#/Vol]on 42-75-1358Ipnmptyab (Bld) [#/Vol]Platelets [#/volume] in Blood by Automated -354TzkkztoenSalem Regional Medical CenterRBC Auto (Bld) [#/Vol]on 61-79-1593YFC (Bld) [#/Vol]Erythrocytes [#/volume] in Blood by Automated countLow4.70-6.10[facility] CenterBasophils Auto (Bld) [#/Vol]on 24-80-8626Suvspyjbu (Bld) [#/Vol]Automated basophil count0.0-0.1FPomerene HospitalBasophils/100 WBC Auto (Bld)on 86-06-8071Pgrhnfzan/100 WBC (Bld)Automated basophil %0.2-2.0[facility] CenterEosinophils/100 WBC Auto (Bld)on 08-03-2024 Eosinophils/100 WBC (Bld)Automated eosinophil %0.9-7.0[facility] CenterErythrocyte distribution width Auto (RBC) [Ratio]on 16-47-2930Oycrzsaeuco distribution width (RBC) [Ratio]Erythrocyte distribution width [Ratio] by Automated count11.0-15.0[facility] CenterHematocrit Auto (Bld) [Volume fraction]on 00-11-6504Rykbxsxjse (Bld) [Volume fraction]Hematocrit [Volume Fraction] of Blood by Automated romzxWqa87.0-54.0[facility] CenterHemoglobin [Mass/volume] in Bloodon 24-83-6963Wjhxjpmkxn (Bld) [Mass/Vol]Hemoglobin [Mass/volume] in PlvwrYcg29.0-18.0[facility] CenterLaboratory - Hematology and Cell countson 79-81-5457ZIZ (Bld) [Velocity]22 mm/hHigh<=20[facility] CenterImmature granulocytes/100 WBC (Bld)0.3 %0.0-0.5FPomerene Hospital Leukocytes [#/volume] corrected for nucleated erythrocytes in Blood by Automated counon 37-58-4475IVT corrected for nucl RBC Auto (Bld) [#/Vol]Leukocytes [#/volume] corrected for nucleated erythrocytes in Blood by Automated coun 4.0-11.0[facility] CenterLymphocytes Auto (Bld) [#/Vol]on 91-58-4657Qcqikppcbif (Bld) [#/Vol]Lymphocytes [#/volume] in Blood by Automated count1.2-3.8[facility] CenterLymphocytes/100 WBC Auto (Bld)on 73-63-2929Ujjhialzvwo/100 WBC (Bld)Lymphocytes/100 leukocytes in Blood by Automated count20.5-60.0[facility] CenterMCH Auto (RBC) [Entitic mass]on 82-76-0994JSV (RBC) [Entitic mass]MCH [Entitic mass] by Automated count 25.9-34.0[facility] CenterMCHC Auto (RBC) [Mass/Vol]on 39-95-4280PHUS (RBC) [Mass/Vol]MCHC [Mass/volume] by Automated count29.9-35.2 [facility] CenterMCV Auto (RBC) [Entitic vol]on 20-96-5336PZY (RBC) [Entitic vol]MCV [Entitic volume] by Automated count80.0-94.0[facility] CenterMonocytes Auto (Bld) [#/Vol]on 40-39-3361Qgynjxhgn (Bld) [#/Vol]Automated blood monocyte count0.3-0.8[facility] Monocytes/100 WBC Auto (Bld)on 37-37-4763Xmatvfmou/100 WBC (Bld)Automated monocyte %1.7-12.0[facility] CenterNeutrophils Auto (Bld) [#/Vol]on 88-64-5799Jjijecmdtmw (Bld) [#/Vol]Neutrophils [#/volume] in Blood by Automated count1.4-6.5FPomerene HospitalNeutrophils/100 WBC Auto (Bld)on 08-84-9326Nyyfhhydhzv/100 WBC (Bld)Automated neutrophil %43.0-75.0 [facility] CenterNo Panel Informationon 44-84-2983Dmfmzgqwcxe # (Auto)0.1 10 3/uL0.0-0.7FPomerene HospitalImmature Granulocyte # (Auto)0.03 10 3/uL0.00-0.03[facility] CenterPlatelet mean volume Auto (Bld) [Entitic vol]on 10-46-4964Hhithmzz mean volume (Bld) [Entitic vol] Platelet mean volume [Entitic volume] in Blood by Automated count9.5-13.5 [facility] CenterPlatelets Auto (Bld) [#/Vol]on 08-03-2024 Platelets (Bld) [#/Vol]Platelets [#/volume] in Blood by Automated fwnci595-286 [facility] CenterRBC Auto (Bld) [#/Vol]on 96-82-3639NVM (Bld) [#/Vol]Erythrocytes [#/volume] in Blood by Automated countLow4.70-6.10[facility] CenterBasophils Auto (Bld) [#/Vol]on 74-18-8112Ulpzxisgt (Bld) [#/Vol]Automated basophil count0.0-0.1FPomerene Hospital Basophils/100 WBC Auto (Bld)on 49-53-3965Mequhirgw/100 WBC (Bld)Automated basophil %0.2-2.0[facility] CenterEosinophils/100 WBC Auto (Bld) on 56-20-5909Nhslgkejeij/100 WBC (Bld)Automated eosinophil %0.9-7.0[facility] CenterErythrocyte distribution width Auto (RBC) [Ratio]on 13-09-0652Lsfbugzgtqn distribution width (RBC) [Ratio]Erythrocyte distribution width [Ratio] by Automated count11.0-15.0[facility] Hematocrit Auto (Bld) [Volume fraction]on 84-62-4426Tegatnrbgr (Bld) [Volume fraction]Hematocrit [Volume Fraction] of Blood by Automated wwydzFlg30.0-54.0 [facility] CenterHemoglobin [Mass/volume] in Bloodon 07-15-2024 Hemoglobin (Bld) [Mass/Vol]Hemoglobin [Mass/volume] in Blood14.0-18.0[facility] Center[facility]ematology and Cell countson 07-15-2024 Immature granulocytes/100 WBC (Bld)0.2 %0.0-0.5[facility]uk[facility] [#/volume] corrected for nucleated erythrocytes in Blood by Automated counon 72-90-7699YYI corrected for nucl RBC Auto (Bld) [#/Vol]Leukocytes [#/volume] corrected for nucleated erythrocytes in Blood by Automated coun 4.0-11.0[facility] CenterLymphocytes Auto (Bld) [#/Vol]on 43-25-8714Ldryhqolwtn (Bld) [#/Vol]Lymphocytes [#/volume] in Blood by Automated count1.2-3.8[facility] CenterLymphocytes/100 WBC Auto (Bld)on 38-68-2629Gtlaqnamflh/100 WBC (Bld)Lymphocytes/100 leukocytes in Blood by Automated count20.5-60.0[facility] CenterMCH Auto (RBC) [Entitic mass]on 48-58-7807NGQ (RBC) [Entitic mass]MCH [Entitic mass] by Automated count 25.9-34.0[facility] CenterMCHC Auto (RBC) [Mass/Vol]on 82-24-7281FUQO (RBC) [Mass/Vol]MCHC [Mass/volume] by Automated countHigh 29.9-35.2FPomerene HospitalMCV Auto (RBC) [Entitic vol]on 88-44-9984USC (RBC) [Entitic vol]MCV [Entitic volume] by Automated count 80.0-94.0[facility] CenterMonocytes Auto (Bld) [#/Vol]on 20-11-1398Kbkatlwrw (Bld) [#/Vol]Automated blood monocyte countHigh0.3-0.8 [facility] CenterMonocytes/100 WBC Auto (Bld)on 07-15-2024 Monocytes/100 WBC (Bld)Automated monocyte %1.7-12.0[facility] CenterNeutrophils Auto (Bld) [#/Vol]on 34-42-3718Xgfwiongjso (Bld) [#/Vol] Neutrophils [#/volume] in Blood by Automated count1.4-6.5FPomerene HospitalNeutrophils/100 WBC Auto (Bld)on 32-81-9178Lhwwwziyvzt/100 WBC (Bld)Automated neutrophil %43.0-75.0[facility] CenterNo Panel Informationon 57-45-9722Chyvnubwmsb # (Auto)0.2 10 3/uL0.0-0.7FPomerene HospitalImmature Granulocyte # (Auto)0.02 10 3/uL0.00-0.03[facility] CenterPlatelet mean volume Auto (Bld) [Entitic vol]on 05-46-7877Edmmildy mean volume (Bld) [Entitic vol]Platelet mean volume [Entitic volume] in Blood by Automated count9.5-13.5FPomerene Hospital Platelets Auto (Bld) [#/Vol]on 50-88-6517Anhbiinjb (Bld) [#/Vol]Platelets [#/volume] in Blood by Automated -059WalliejsaSalem Regional Medical Center RBC Auto (Bld) [#/Vol]on 52-24-7686OUS (Bld) [#/Vol]Erythrocytes [#/volume] in Blood by Automated countLow4.70-6.10[facility] CenterBasophils Auto (Bld) [#/Vol]on 75-74-3411Jcrhewpxn (Bld) [#/Vol]Automated basophil count 0.0-0.1FPomerene HospitalBasophils/100 WBC Auto (Bld)on 77-95-0237Eiwzkkcrr/100 WBC (Bld)Automated basophil %0.2-2.0[facility] CenterEosinophils/100 WBC Auto (Bld)on 61-92-0743Xpfneeamtrg/100 WBC (Bld)Automated eosinophil %0.9-7.0[facility] CenterErythrocyte distribution width Auto (RBC) [Ratio]on 55-54-6499Fuqtevzxfom distribution width (RBC) [Ratio]Erythrocyte distribution width [Ratio] by Automated count11.0-15.0 [facility] CenterEstimated glomerular filtration rate (GFR) non- Americanon 54-27-7198GHR/1.73 sq M.predicted among non-blacks MDRD (S/P/Bld) [Vol rate/Area]Estimated glomerular filtration rate (GFR) non- AmericanLow>=60 mL/min/1.73m 2FPomerene HospitalHematocrit Auto (Bld) [Volume fraction]on 33-24-3418Kudmehrkff (Bld) [Volume fraction]Hematocrit [Volume Fraction] of Blood by Automated ssfvgVnx65.0-54.0[facility] CenterHemoglobin [Mass/volume] in Bloodon 08-11-2281Jnhsgszcmi (Bld) [Mass/Vol]Hemoglobin [Mass/volume] in Blood14.0-18.0[facility] CenterLaboratory - Chemistry and Chemistry - challengeon 92-39-9537Wxhyiewjv Ql (U)NegativeNEGATIVESalem Regional Medical CenterGlucose (U) [Mass/Vol]mg/dL AbnormalNEGATIVESalem Regional Medical CenterKetones Ql (U)TRACE mg/dL AbnormalNEGATIVESalem Regional Medical CenterpH (U)5.5 [pH]5.0-9.0[facility] Hospitalpecific gravity (U) [Rel density]1.0251.005-1.025 [facility] CenterUrobilinogen Qn (U)0.2 {Denis'U}/dL0.2-1.0 [facility] CenterAlbumin [Mass/Vol]3.5 g/dL3.4-5.0[facility] CenterALP [Catalytic activity/Vol]81 U/G52-585NwabazmusSalem Regional Medical CenterALT [Catalytic activity/Vol]22 U/D66-70UsfiruklkSalem Regional Medical CenterAST [Catalytic activity/Vol]9 U/GJbh38-96HnjuiqmmiSalem Regional Medical CenterBilirubin [Mass/Vol]0.7 mg/dL0.2-1.0[facility] CenterCreatinine [Mass/Vol]1.21 mg/dL0.70-1.30[facility] GFR/1.73 sq M.predicted MDRD (S/P/Bld) [Vol rate/Area]mL/min/{1.73_m2}>=60 mL/min/1.73m 2FPomerene HospitalLaboratory - Hematology and Cell countson 01-84-3016VUR (Bld) [Velocity]20 mm/h<=20[facility] CenterImmature granulocytes/100 WBC (Bld)0.2 %0.0-0.5FPomerene HospitalLaboratory - Specimen informationon 41-76-4841Rxplctphkc (U)CLEARCLEAR [facility] CenterColor (U)LT. YELLOWYELLOWSalem Regional Medical CenterLaboratory - Urinalysison 17-69-1020Rnjljvkzo sediment LM Ql (Urine sed)RARESalem Regional Medical CenterLeukocyte esterase Test strip Ql (U)NegativeNEGATIVESalem Regional Medical CenterMucus Ql (Urine sed)NONE SEENNONE SEENSal[facility] Regional Medical CenterNitrite Ql (U)NegativeNEGATIVE [facility] CenterProtein Ql (U)30 mg/dLAbnormalNEG/TRACE [facility] CenterLeukocytes [#/volume] corrected for nucleated erythrocytes in Blood by Automated counon 38-30-6493HVU corrected for nucl RBC Auto (Bld) [#/Vol]Leukocytes [#/volume] corrected for nucleated erythrocytes in Blood by Automated coun4.0-11.0[facility] CenterLymphocytes Auto (Bld) [#/Vol]on 16-96-1268Twttxbbuked (Bld) [#/Vol]Lymphocytes [#/volume] in Blood by Automated count1.2-3.8[facility] CenterLymphocytes/100 WBC Auto (Bld)on 50-07-1692Ourdwjfeivd/100 WBC (Bld)Lymphocytes/100 leukocytes in Blood by Automated count20.5-60.0Pomerene HospitalH Auto (RBC) [Entitic mass]on 06-13-3255PVK (RBC) [Entitic mass]MCH [Entitic mass] by Automated count25.9-34.0[facility] CenterMCHC Auto (RBC) [Mass/Vol]on 77-22-6506VLQM (RBC) [Mass/Vol]MCHC [Mass/volume] by Automated count29.9-35.2FPomerene HospitalMCV Auto (RBC) [Entitic vol]on 88-11-8845ZJM (RBC) [Entitic vol]MCV [Entitic volume] by Automated count 80.0-94.0[facility] CenterMonocytes Auto (Bld) [#/Vol]on 80-31-9623Eljzdvprk (Bld) [#/Vol]Automated blood monocyte count0.3-0.8[facility] CenterMonocytes/100 WBC Auto (Bld)on 72-97-5370Wcdftdnut/100 WBC (Bld)Automated monocyte %1.7-12.0[facility] Neutrophils Auto (Bld) [#/Vol]on 32-86-8119Uynhthfbchg (Bld) [#/Vol]Neutrophils [#/volume] in Blood by Automated count1.4-6.5FPomerene Hospital Neutrophils/100 WBC Auto (Bld)on 41-02-9379Yuedirjcpag/100 WBC (Bld)Automated neutrophil %43.0-75.0[facility] CenterNo Panel Informationon 56-91-0475Fchil BacteriaNONE SEEN #/HPFNONE SEENSalem Regional Medical CenterUrine Occult BloodNegativeNEGATIVESalem Regional Medical CenterUrine Other CastsNONE SEEN #/LPFNONE SEENSal[facility] Regional Medical CenterUrine Other CrystalsSeen #/HPFAbnormalNone SeenSalem Regional Medical CenterUrine RBC NONE SEEN #/HPF0-2FPomerene HospitalUrine Squamous Epithelial CellsNONE SEEN #/LPFNONE/RARESalem Regional Medical CenterUrine WBCNONE SEEN #/HPFNONE SEENSal[facility] Regional Medical CenterC-Reactive Protein, Quantitative <0.50 mg/dL<=0.50[facility] CenterEosinophils # (Auto)0.1 10 3/uL0.0-0.7FPomerene HospitalImmature Granulocyte # (Auto)0.02 10 3/uL0.00-0.03[facility] CenterPlatelet mean volume Auto (Bld) [Entitic vol]on 12-55-7182Mwbxcftv mean volume (Bld) [Entitic vol]Platelet mean volume [Entitic volume] in Blood by Automated count9.5-13.5FPomerene HospitalPlatelets Auto (Bld) [#/Vol]on 05-81-6542Ffebnxhwz (Bld) [#/Vol] Platelets [#/volume] in Blood by Automated ghjfo586-396TrkayplgzSalem Regional Medical CenterRBC Auto (Bld) [#/Vol]on 22-44-1116BCT (Bld) [#/Vol]Erythrocytes [#/volume] in Blood by Automated countLow4.70-6.10[facility] CenterBasophils Auto (Bld) [#/Vol]on 10-43-5363Gevzrwehn (Bld) [#/Vol]Automated basophil count0.0-0.1FPomerene HospitalBasophils/100 WBC Auto (Bld)on 61-91-8037Qyiaxkltn/100 WBC (Bld)Automated basophil %0.2-2.0[facility] CenterEosinophils/100 WBC Auto (Bld)on 07-01-2024 Eosinophils/100 WBC (Bld)Automated eosinophil %0.9-7.0[facility] CenterErythrocyte distribution width Auto (RBC) [Ratio]on 30-02-7659Yzpnxqnfvcg distribution width (RBC) [Ratio]Erythrocyte distribution width [Ratio] by Automated count11.0-15.0[facility] CenterHematocrit Auto (Bld) [Volume fraction]on 12-02-0090Gygzhwlrnt (Bld) [Volume fraction]Hematocrit [Volume Fraction] of Blood by Automated oaqwmAks77.0-54.0[facility] CenterHemoglobin [Mass/volume] in Bloodon 62-85-0851Hefukrpwkl (Bld) [Mass/Vol]Hemoglobin [Mass/volume] in LagcgLmg73.0-18.0[facility] CenterLaboratory - Hematology and Cell countson 53-37-2625Fbvddzqy granulocytes/100 WBC (Bld)0.2 %0.0-0.5FPomerene Hospital Leukocytes [#/volume] corrected for nucleated erythrocytes in Blood by Automated counon 07-43-4045KZO corrected for nucl RBC Auto (Bld) [#/Vol]Leukocytes [#/volume] corrected for nucleated erythrocytes in Blood by Automated coun 4.0-11.0[facility] CenterLymphocytes Auto (Bld) [#/Vol]on 26-01-3986Yslqqvfrqbm (Bld) [#/Vol]Lymphocytes [#/volume] in Blood by Automated count1.2-3.8[facility] CenterLymphocytes/100 WBC Auto (Bld)on 7136Fnobnnvfslh/100 WBC (Bld)Lymphocytes/100 leukocytes in Blood by Automated count20.5-60.0[facility] CenterMCH Auto (RBC) [Entitic mass]on 56-70-2398MAC (RBC) [Entitic mass]MCH [Entitic mass] by Automated count 25.9-34.0[facility] CenterMCHC Auto (RBC) [Mass/Vol]on 27-60-2794XESH (RBC) [Mass/Vol]MCHC [Mass/volume] by Automated count29.9-35.2 [facility] CenterMCV Auto (RBC) [Entitic vol]on 03-89-9753IEM (RBC) [Entitic vol]MCV [Entitic volume] by Automated klhcdCwgx25.0-94.0[facility] CenterMonocytes Auto (Bld) [#/Vol]on 88-12-7671Otagohskj (Bld) [#/Vol]Automated blood monocyte count0.3-0.8[facility] Monocytes/100 WBC Auto (Bld)on 94-74-2975Ytqahaqfq/100 WBC (Bld)Automated monocyte %1.7-12.0[facility] CenterNeutrophils Auto (Bld) [#/Vol]on 14-72-1201Rrzkczofrdy (Bld) [#/Vol]Neutrophils [#/volume] in Blood by Automated countHigh1.4-6.5FPomerene HospitalNeutrophils/100 WBC Auto (Bld)on 91-33-7901Dwavltkrhpn/100 WBC (Bld)Automated neutrophil %43.0-75.0 [facility] CenterNo Panel Informationon 28-13-4790Gvvxvalqwys # (Auto)0.1 10 3/uL0.0-0.7FPomerene HospitalImmature Granulocyte # (Auto)0.02 10 3/uL0.00-0.03[facility] CenterPlatelet mean volume Auto (Bld) [Entitic vol]on 97-23-4636Hnwbpjme mean volume (Bld) [Entitic vol] Platelet mean volume [Entitic volume] in Blood by Automated countLow9.5-13.5 [facility] CenterPlatelets Auto (Bld) [#/Vol]on 07-01-2024 Platelets (Bld) [#/Vol]Platelets [#/volume] in Blood by Automated -531 [facility] CenterRBC Auto (Bld) [#/Vol]on 49-00-7239HZS (Bld) [#/Vol]Erythrocytes [#/volume] in Blood by Automated countLow4.70-6.10[facility] CenterXR RIBS 2 VIEWS LEFT WITH CHEST ANTEROPOSTERIORon 87-68-6604GF RIBS 2 VIEWS LEFT WITH CHEST ANTEROPOSTERIORTITLE [...] Electronically Signed Tereso Kauffman M.D. 2024-05-17 12:47:15 [facility] HealthcareRadiology Study observation (narrative)[facility] HealthcareXR Ribs Views and Chest PAOrdered By: Elizabeth Kauffman on 35-55-6744[facility] Work Phone: Hemoglobin [Mass/volume] in Bloodon 03-11-2024 Hemoglobin (Bld) [Mass/Vol]13.7 g/dLLow14.0-18.0[facility] CenterQuantiFERON TB Goldon 90-65-0141HJNV CriteriaNormal.[facility] Physician GroupComment on above:Result Comment: QuantiFERON-TB Gold [...] TB #### [facility] ,Quant TB Ag Value0.02Normal.[facility] Physician GroupComment on above: Performed By: #### QUANT TB #### [facility] ,Quant TB Gold PlusNegativeNormalNegativeThe [facility] Physician GroupComment on above:Result Comment: No response [...] interferon gamma. Chemiluminescence immunoassay methodology Performed at: [facility] [id number] Parts Inspector: Krunal Nichols PhD, Phone: [phone] PERFORMED BY: [address] [place] [address] PATHOLOGIST PARTS SALES ADVISOR ADELFO RAMIREZ M.D.Performed By: #### QUANT TB #### [facility] ,Quant TB2 Ag Value0.02Normal.[facility] Physician GroupComment on above: Performed By: #### QUANT TB #### [facility] ,Quantiferon Nil Value0.02Normal.[facility] Physician GroupComment on above: Performed By: #### QUANT TB #### [facility] ,Quantiferon TB Mitogen>10.00Normal.[facility] Physician GroupComment on above:Performed By: #### QUANT TB #### [facility] ,Glucose mean value [Mass/volume] in Blood Estimated from glycated hemoglobinon 20-15-0666Iitdcjz glucose Estimated from glycated hemoglobin (Bld) [Mass/Vol]134 mg/dLSalem Regional Medical CenterLaboratory - Hematology and Cell countson 95-07-1689GtR4q (Bld) [Mass fraction]6.3 %4.5-6.2FPomerene HospitalComment on above:ADA RECOMMENDED LIMIT 4.0 - 6.0ADA THERAPEUTIC TARGET < 7.0ACTION SUGGESTED> 7.0XR knee BI 2Von 96-33-6816FW knee BI 2V[facility] [place] [address] XRay Report Signed Patient: Mariano Gutierrez MR#: [id number] : 1950 Acct:[id number] Age/Sex: 73 / M ADM Date: 12/09/23 Loc: ICXD Room: Type: [facility] Attending Dr: Carlos Guzmán MD Copies to: Carlos Guzmán MD Ordering Provider: Carlos Guzmán MD Date of Service: 12/09/23 XR/XR hand BI 2V: HAND PAIN ([id number]) XR/XR knee BI 2V: KNEE PAIN 2 [...] Gregory Schmidt M.D.12/09/2023 4:00 PM Dictation Location: [place] [address] Transcribed By: [facility] 12/09/23 1600 Dictated By: Gregory Schmidt DO 12/09/23 1556 Signed By: 12/09/23 1600[facility] Physician GroupAlanine aminotransferase [Enzymatic activity/volume] in Serum or PlasmaOrdered By: Carlos Guzmán on 48-08-8588NGB [Catalytic activity/Vol]11 U/L7-52[facility] CenterAlbumin [Mass/volume] in Serum or PlasmaOrdered By: Carlos Guzmán on 91-40-4213Mpcpybm [Mass/Vol]3.5 g/dL2.9-4.4FPomerene Hospital Albumin [Mass/volume] in Serum or Plasma by Bromocresol green (BCG) dye binding methoOrdered By: Carlos Guzmán on 23-29-6597Tutisda BCG dye [Mass/Vol]3.8 g/dL 3.5-5.7FPomerene HospitalAlbumin/Protein.total in 24 hour Urine by ElectrophoresisOrdered By: Carlos Guzmán on 91-03-6139Zwktbcn Elph (24H U) [Mass fraction]50.7 %.[facility] CenterAlkaline phosphatase [Enzymatic activity/volume] in Serum or PlasmaOrdered By: Carlos Guzmán on 77-24-7988OJW [Catalytic activity/Vol]98 U/R58-999XpkciaueqSalem Regional Medical CenterAspartate aminotransferase [Enzymatic activity/volume] in Serum or Plasma Ordered By: Carlos Guzmán on 29-53-8995PFE [Catalytic activity/Vol]15 U/L13-39 [facility] CenterAutomated erythrocytes count in urine sediment (number/area)Ordered By: Carlos Guzmán on 72-69-4788QQS Auto (Urine sed) [#/Area]None seen [HPF]0-4FPomerene HospitalAutomated leukocytes count in urine sediment (number/area)Ordered By: Carlos Guzmán on 52-34-7531ZUK Auto (Urine sed) [#/Area]0-1 [HPF]0-4FPomerene HospitalBasophils Auto (Bld) [#/Vol]Ordered By: Carlos Guzmán on 46-35-7071Uxhqgcgig (Bld) [#/Vol]0.1 10*3/uL0.0-0.2FPomerene HospitalBasophils/100 WBC Auto (Bld)Ordered By: Carlos Guzmán on 15-63-3308Djnmcbkom/100 WBC (Bld)1.1 %. [facility] CenterBilirubin Test strip Ql (U)Ordered By: Carlos Guzmán on 66-24-6853Beqlwelid Ql (U)NegativeNegativeSalem Regional Medical CenterBilirubin.total [Mass/volume] in Serum or PlasmaOrdered By: Carlos Guzmán on 05-57-7375Zrukrmmpt [Mass/Vol]0.6 mg/dL0.3-1.0[facility] CenterC reactive protein [Mass/volume] in Serum or PlasmaOrdered By: Carlos Guzmán on 02-65-2254BYI [Mass/Vol]0.6 mg/dL0.0-0.5FPomerene HospitalCalcium [Mass/volume] in Serum or PlasmaOrdered By: Carlos Guzmán on 94-21-1876Lgdgggy [Mass/Vol]9.4 mg/dL8.6-10.3FPomerene Hospital Carbon dioxide, total [Moles/volume] in Serum or PlasmaOrdered By: Carlos Guzmán on 48-32-1646GL5 [Moles/Vol]28.5 mmol/L21.0-31.0[facility] CenterChloride [Moles/volume] in Serum or PlasmaOrdered By: Carlos Guzmán 40-18-3194Dsfigwam [Moles/Vol]99 mmol/C83-181JrkimimtgSalem Regional Medical CenterColor Auto (U)Ordered By: Carlos Guzmán on 19-12-2222Pimjx (U) YellowYellowSalem Regional Medical CenterCreatinine [Mass/volume] in Serum or PlasmaOrdered By: Carlos Guzmán on 29-19-1953Qdcrwixjjl [Mass/Vol]0.73 mg/dL 0.70-1.30[facility] CenterEosinophils Auto (Bld) [#/Vol]Ordered By: Carlos Guzmán on 25-73-4271Qmolfggjzjr (Bld) [#/Vol]0.2 10*3/uL0.0-0.45 [facility] CenterEosinophils/100 WBC Auto (Bld)Ordered By: Carlos Guzmán on 72-62-4414Yhjqdvcqytf/100 WBC (Bld)2.0 %.[facility] CenterErythrocyte distribution width Auto (RBC) [Ratio]Ordered By: Carlos Guzmán on 23-42-0896Zcpamykahii distribution width (RBC) [Ratio]15.0 % 12.0-14.8[facility] CenterErythrocyte sedimentation rate by Photometric methodOrdered By: Carlos Guzmán on 99-30-9043FFH Photometric method (Bld) [Velocity]72 mm/hr0-19[facility] CenterGamma globulin/Protein.total in 24 hour Urine by ElectrophoresisOrdered By: Carlos Guzmán on 10-68-8554Dgvyx globulin Elph (24H U) [Mass fraction]20.1 %.[facility] CenterGlucose [Mass/volume] in Serum or PlasmaOrdered By: Carlos Guzmán on 92-12-8667Rebumgn [Mass/Vol]105 mg/xA07-116NvqszfamqSalem Regional Medical CenterComment on above:ADA recommended reference rangeRandom Glucose Reference Range is dependent on time and content of last meal. Glucose of more than 200 mg/dL in a nonstressed, ambulatory subject supports the diagnosisof Diabetes Mellitus.Hematocrit Auto (Bld) [Volume fraction]Ordered By: Carlos Guzmán on 33-80-0424Pwcowanqoe (Bld) [Volume fraction]38.8 %38.8-50.0[facility] CenterHemoglobin [Mass/volume] in BloodOrdered By: Carlos Guzmán on 78-70-2864Bniyueklfe (Bld) [Mass/Vol]13.3 g/dL13.0-17.0[facility] CenterHepatitis B virus surface Ab [Presence] in SerumOrdered By: Carlos Guzmán on 52-09-9053UMT surface Ab Ql (S)Non-Reactive.[facility] CenterComment on above:Non Reactive: Inconsistent with immunity, less than 10 mIU/mL Reactive: Consistent with immunity, greater than 9.9 mIU/mLHepatitis B virus surface Ag [Presence] in Serum or Plasma by ImmunoassayOrdered By: Carlos Guzmán on 47-04-4891AAD surface Ag IA QlNegative NegativeSalem Regional Medical CenterHepatitis C virus IgG Ab [Presence] in Serum or Plasma by ImmunoassayOrdered By: Carlos Guzmán on 74-23-4542LHG IgG IA QlNon-ReactiveNon ReactiveSalem Regional Medical CenterIgA [Mass/volume] in Serum or PlasmaOrdered By: Carlos Guzmán on 28-92-2981BhP [Mass/Vol]399 mg/dL 61-437[facility] CenterIgG [Mass/volume] in Serum or Plasma Ordered By: Carlos Guzmán on 63-48-4585NpV [Mass/Vol]2589 mg/oC234-4770 [facility] CenterIgM [Mass/volume] in Serum or PlasmaOrdered By: Carlos Guzmán on 80-69-9875SmI [Mass/Vol]217 mg/aU60-537CbkkslgirSalem Regional Medical CenterComment on above:Performed at: [facility] ([place]) [address] [id number] Director: Krunal Nichols PhD, Phone: [phone] Immunofixation for UrineOrdered By: Calros Guzmán on 21-11-3302Niskfllwrybkwb Immunofixation (U) [Interp]Comment:.[facility] CenterComment on above:Presence of monoclonal protein is unclear at this time. Suggestrepeat in 3 to 6 months if clinically indicated.Performed at: [facility] ([place]) [address] [id number] Director: Krunal Nichols PhD, Phone: [phone] light chains.kappa.free [Mass/volume] in SerumOrdered By: Carlos Guzmán on 70-92-7025Nrhzmmiznpmmiq light chains.kappa.free (S) [Mass/Vol]127.8 mg/L3.3-19.4FPomerene HospitalImmunoglobulin light chains.kappa.free/Immunoglobulin light chains.lambda.free [MassOrdered By: Carlos Guzmán on 16-78-9927Paodwfcheginwc light chains.kappa.free/Immunoglobulin light chains.lambda.free (S) [Mass ratio]0.75 0.26-1.65[facility] CenterComment on above:Performed at: - [facility] [id number] Director: Krunal Nichols PhD, Phone: [phone] light chains.lambda.free [Mass/volume] in Serum or PlasmaOrdered By: Carlos Guzmán on 11-24-2023 Immunoglobulin light chains.lambda.free [Mass/Vol]171.2 mg/L5.7-26.3FPomerene HospitalKetones Auto test strip (U) [Mass/Vol]Ordered By: Carlos Guzmán on 65-58-2376Teghjho (U) [Mass/Vol]TraceNegativeSalem Regional Medical CenterLaboratory - UrinalysisOrdered By: Carlos Guzmán on 11-24-2023 Hyaline casts LM Ql (Urine sed)0-8 [LPF]0-8[facility] Leukocytes [#/volume] corrected for nucleated erythrocytes in Blood by Automated counOrdered By: Carlos Guzmán on 62-32-1677UEK corrected for nucl RBC Auto (Bld) [#/Vol]8.9 10*3/uL4.1-10.5FPomerene HospitalLymphocytes Auto (Bld) [#/Vol]Ordered By: Carlos Guzmán on 07-38-7744Krfmiyczgkm (Bld) [#/Vol]2.5 10*3/uL1.00-4.8[facility] CenterLymphocytes/100 WBC Auto (Bld)Ordered By: Carlos Guzmán on 97-97-7064Dtibashollo/100 WBC (Bld)28.6 %.[facility] CenterMC Auto (RBC) [Entitic mass]Ordered By: Carlos Guzmán on 04-17-0158UAM (RBC) [Entitic mass]30.0 pg27.5-35.2FPomerene HospitalMCHC Auto (RBC) [Mass/Vol]Ordered By: Carlos Guzmán on 52-66-2417GXLE (RBC) [Mass/Vol]34.4 g/dL32.5-35.6FPomerene HospitalMCV Auto (RBC) [Entitic vol]Ordered By: Carlos Guzmán on 55-98-0573RUE (RBC) [Entitic vol]87.1 fL83.5-101[facility] CenterMonocytes Auto (Bld) [#/Vol]Ordered By: Carlos Guzmán on 72-27-6946Ppcjklgyv (Bld) [#/Vol]0.7 10*3/uL0.0-0.8[facility] CenterMonocytes/100 WBC Auto (Bld)Ordered By: Carlos Guzmán on 86-70-3388Wlslfwpev/100 WBC (Bld)7.8 %. [facility] CenterMyeloperoxidase Ab [Units/volume] in Serum by ImmunoassayOrdered By: Carlos Guzmán on 41-77-0907Zovhoytzjlvudcs Ab IA Qn (S) 1.8 units0.0-0.9[facility] CenterNeutrophil cytoplasmic Ab.perinuclear.atypical [Titer] in Serum by ImmunofluorescenceOrdered By: Carlos Guzmán on 20-60-7021Qpzgurnycw cytoplasmic Ab.perinuclear.atypical IF (S) [Titer]<1:20 titerNeg:<1:20[facility] CenterComment on above:The atypical pANCA pattern has been observed in asignificant percentage of patients with ulcerativecolitis,primary sclerosing cholangitis and autoimmune hepatitis.Performed at: - [facility] [id number] Director: Blanca Olmedo MD, Phone: [phone] at: [facility] [id number] Director: Krunal Nichols PhD, Phone: [phone] Auto (Bld) [#/Vol]Ordered By: Carlos Guzmán on 91-01-6356Pejvhoubucw (Bld) [#/Vol]5.4 10*3/uL1.8-7.7FPomerene HospitalNeutrophils/100 WBC Auto (Bld)Ordered By: Carlos Guzmán on 34-66-3014Lunliczzlef/100 WBC (Bld)60.5 %.[facility] Nitrite Test strip Ql (U)Ordered By: Carlos Guzmán on 59-79-7727Bmmxwoc Ql (U) NegativeNegativeSalem Regional Medical CenterNo Panel InformationOrdered By: Carlos Guzmán on 47-41-4309Pohu-Nuclear Antibody Comment 2See comment. [facility] CenterComment on above:Pattern Potential Disease Association Homo geneous Systemic Lupus Erythematosus, Drug Induced Systemic Lupus Erythematosus, Chronic Autoimmunehepatitis, Juvenile Idiopathic Arthritis Speckled Sjogren Syndrome, Systemic Lupus Erythematosus, Subacute Cutaneous Lupus, Lupus, Congenital Heart Block, Mixed Connective Tissue Disease, Scleroderma-diffuse, Scleroderma- Autoimmune Myositis Overlap Syndrome, Systemic Lupus Iieemzfqjsjpe-Xbsgqtrpvwi-Vegoisppuz Myositis Overlap Syndrome, Systemic Autoimmune Rheumatic Disease, [...] Cytopenias, Linear Scleroderma, Antiphospholipid Syndrome Performed at: [facility] ([place]) [address] [id number] Director: Krunal Nichols PhD, Phone: [phone] GFR (CKD-EPI)> 60.0 mL/MinSalem [facility] Medical CenterHepatitennova healthcare - [place] B Core Total AntibodyNegativeNegativeSalem Regional Medical CenterComment on above:Performed at: [facility] ([place]) [address] [id number] Director: Krunal Nichols PhD, Phone: [phone] C [facility] ([place] comment.[facility] Medical CenterComment on above:Not infected with HCV unless early or acute infection issuspected (which may be delayed in an immunocompromisedindividual), or other evidence exists to indicate HCVinfection.Perinuclear ANCA (p-ANCA) Antibody<1:20 titerNeg:<1:20[facility] CenterComment on above:The presence of [...] only by EIA. Ref. AM J Clin [id number];111:507-513. Pharmacy Creatinine Clearance (ChemN/AFPomerene HospitalProtein Electrophoresis M-SpikeNot observed g/dLNot ObservedSalem Regional Medical CenterProtein Electrophoresis NoteSee comment.[facility] Comment on above:Protein electrophoresis scan will follow via computer,mail, or braille typist delivery.Performed at: [facility] [id number] Director: Krunal Nichols PhD, Phone: [phone] ImmunofixationSee comment.[facility] CenterComment on above:No monoclonality detected.Total Complement (CH50)51 U/mL>41[facility] CenterComment on above:Age Male Female [...] to determine out of range values.Performed at: [facility] [id number] Director: Krunal Nichols PhD, Phone: [phone] Random Prot Electrophor NoteSee comment.[facility] CenterComment on above:Protein electrophoresis scan will follow via computer,mail, or braille typist delivery.Nucleated erythrocytes [Presence] in Blood by Automated countOrdered By: Carlos Guzmán on 70-12-0539Ixvpylmor RBC Auto Ql (Bld)0.0 /100{WBC}0-0.5FPomerene HospitalPlatelet mean volume Auto (Bld) [Entitic vol]Ordered By: Carlos Guzmán on 84-67-3641Isdqsqqr mean volume (Bld) [Entitic vol]7.9 fL6.6-10.1FPomerene Hospital Platelets Auto (Bld) [#/Vol]Ordered By: Carlos Guzmán on 60-77-2456Qeggbjhyc (Bld) [#/Vol]369 10*3/fA752-202AgpgxyjrsSalem Regional Medical CenterPotassium [Moles/volume] in Serum or PlasmaOrdered By: Carlos Guzmán on 11-24-2023 Potassium [Moles/Vol]4.3 mmol/L3.5-5.1FPomerene HospitalProtein Auto test strip (U) [Mass/Vol]Ordered By: Carlos Guzmán on 14-54-6771Gxltbrk (U) [Mass/Vol]30 mg/dLNegativeSalem Regional Medical CenterProtein [Mass/volume] in Serum or PlasmaOrdered By: Carlos Guzmán on 62-37-5621Qzmkrlq [Mass/Vol]8.2 g/dL6.4-8.9[facility] CenterProtein [Mass/Vol]7.9 g/dL6.0-8.5FPomerene HospitalProtein [Mass/volume] in Urine Ordered By: Carlos Guzmán on 08-29-0509Yrxhawu (U) [Mass/Vol]40.0 mg/dLNot Estab.[facility] CenterProtein.monoclonal/Protein.total in 24 hour Urine by ElectrophoresisOrdered By: Carlos Guzmán on 11-24-2023 Protein.monoclonal Elph (24H U) [Mass fraction]Not observed %Not Observed [facility] CenterProteinase 3 Ab [Units/volume] in Serum by ImmunoassayOrdered By: Carlos Guzmán on 63-19-5399Igfbswzaan 3 Ab IA Qn (S)<0.2 units0.0-0.9[facility] CenterRBC Auto (Bld) [#/Vol]Ordered By: Carlos Guzmán on 30-34-5707SWX (Bld) [#/Vol]4.45 10*6/uL3.90-5.60[facility] Hospitalerum classic neutrophil cytoplasmic antibody titer by immunofluorescenceOrdered By: Carlos Guzmán on 87-77-2948Nveddoaqlv cytoplasmic Ab.classic IF (S) [Titer]<1:20 titerNeg:<1:20[facility] Serum globulin measurement by calculation (mass/volume)Ordered By: Carlos Guzmán on 36-26-9560Fgnffbsy (S) [Mass/Vol]4.4 g/dL2.2-3.9[facility] Hospitalerum homogeneous pattern antinuclear antibody (VANESSA) titerOrdered By: Carlos Guzmán on 04-75-8984Uddyucwsim nuclear Ab pattern (S) [Titer]1:640. [facility] CenterComment on above:ICAP nomenclature: AC-1Serum nuclear antibody titerOrdered By: Carlos Guzmán on 18-48-5220Ncczhhp Ab (S) [Titer]Positive.[facility] CenterComment on above:Negative <1:80 Borderline 1:80 Positive >1:80Serum or plasma albumin/globulin mass ratio Ordered By: Carlos Guzmán on 13-25-7669Oqofsrg/Globulin [Mass ratio]0.9 {ratio} [facility] CenterAlbumin/Globulin [Mass ratio]0.8 {ratio}0.7-1.7 [facility] Hospitalerum or plasma alpha 1 globulin measurement by electrophoresis (mass/volume)Ordered By: Carlos Guzmán on 24-20-5486Uytyv 1 globulin Elph [Mass/Vol]0.2 g/dL0.0-0.4FCleveland Clinic Children's Hospital for Rehabilitationerum or plasma alpha 2 globulin measurement by electrophoresis (mass/volume)Ordered By: Carlos Guzmán on 83-06-4127Tuhvo 2 globulin Elph [Mass/Vol]1.0 g/dL0.4-1.0 [facility] Hospitalerum or plasma anion gap determinationOrdered By: Carlos Guzmán on 22-19-3947Fxuas gap [Moles/Vol]14.8 mmol/L6.0-15.0 [facility] Hospitalerum or plasma beta globulin measurement by electrophoresis (mass/volume)Ordered By: Carlos Guzmán on 08-02-8548Ltix globulin Elph [Mass/Vol]1.0 g/dL0.7-1.3FCleveland Clinic Children's Hospital for Rehabilitationerum or plasma complement C3 measurement (mass/volume)Ordered By: Carlos Guzmán on 19-42-8564Zgykvihjua C3 [Mass/Vol]135 mg/jM92-184WcnjqvzpeSalem Regional Medical CenterComment on above:Performed at: [address] [id number] Director: Krunal Nichols PhD, Phone: [phone] or plasma complement C4 measurement (mass/volume)Ordered By: Carlos Guzmán on 57-20-6101Foxgjhechr C4 [Mass/Vol]10 mg/jM70-21LtnckrbexSalem Regional Medical Center Serum or plasma gamma globulin measurement by electrophoresis (mass/volume) Ordered By: Carlos Guzmán on 88-96-1654Naqum globulin Elph [Mass/Vol]2.2 g/dL 0.4-1.8[facility] Hospitalodium [Moles/volume] in Serum or Plasma Ordered By: Carlos Guzmán on 30-16-2068Mbrwfv [Moles/Vol]138 mmol/J007-311 [facility] Hospitalpecific gravity Auto test strip (U) [Rel density]Ordered By: Carlos Guzmán on 44-33-7895Mkebjoxn gravity (U) [Rel density]1.0391.001-1.030[facility] Hospitalquamous epithelial cells detection in urine sediment by light microscopyOrdered By: Carlos Guzmán on 43-93-9552Hkinjyjcwj cells.squamous LM Ql (Urine sed)None seen [HPF]0-2 [facility] CenterUrea nitrogen [Mass/volume] in Serum or Plasma Ordered By: Carlos Guzmán on 89-22-9666Phtd nitrogen [Mass/Vol]15 mg/dL7-25 [facility] CenterUrine alpha 1 globulin/total protein by electrophoresisOrdered By: Carlos Guzmán on 75-91-1282Msaar 1 globulin Elph (U) [Mass fraction]1.3 %.[facility] CenterUrine alpha 2 globulin/total protein ratio by electrophoresisOrdered By: Carlos Guzmán on 42-18-7682Azcwd 2 globulin Elph (U) [Mass fraction]9.1 %.[facility] CenterUrine bacteria detection by automated methodOrdered By: Carlos Guzmán on 43-89-6663Vupqodcx Auto Ql (U)None seenNone SeenSalem Regional Medical CenterUrine beta globulin measurement by electrophoresis (mass/volume) Ordered By: Carlos Guzmán on 03-06-0185Pihb globulin Elph (U) [Mass/Vol]18.7 %. [facility] CenterUrine clarity by refractometry automatedOrdered By: Carlos Guzmán on 36-63-4697Dgwjhao Refractometry automated (U)ClearClear [facility] CenterUrine glucose measurement by automated test strip (mass/volume)Ordered By: Carlos Guzmán on 32-44-3136Lkphrbh Auto test strip (U) [Mass/Vol]>=1000 mg/dLNoSelect Medical Specialty Hospital - ColumbusUrine hemoglobin detection by automated test stripOrdered By: Carlos Guzmán on 62-94-9818Lxrrojikyb Auto test strip Ql (U)NegativeNegMcKitrick HospitalUrine leukocyte esterase detection by automated test stripOrdered By: Carlos Guzmán on 77-23-7024Jryugidgr esterase Auto test strip Ql (U) NegativeNegMcKitrick HospitalUrobilinogen Auto test strip (U) [Mass/Vol]Ordered By: Carlos Guzmán on 22-80-2540Nyrmlcwsbhqr (U) [Mass/Vol]Normal mg/dLNoSelect Medical Specialty Hospital - ColumbusWBC Auto (Bld) [#/Vol]Ordered By: Carlos Guzmán on 96-74-9129FNE (Bld) [#/Vol]8.9 10*3/uL 4.1-10.5FPomerene HospitalpH Auto test strip (U)Ordered By: Carlos Guzmán on 54-27-6421hI (U)5.0 [pH]5.0-9.0[facility] CenterBasophils Auto (Bld) [#/Vol]on 08-33-9427Shvemnpbq (Bld) [#/Vol]0.1 10 3/uL0.0-0.1FPomerene HospitalBasophils/100 WBC Auto (Bld)on 71-96-2418Jgkkitozl/100 WBC (Bld)0.7 %0.2-2.0[facility] Centriole Ab [Titer] in Serum by Immunofluorescenceon 54-11-6309Pswyqgilz Ab IF (S) [Titer][facility] HospitalCentromere Ab [Titer] in Serum by Immunofluorescenceon 44-16-9606Vjmedinalc Ab IF (S) [Titer][facility] HospitalEosinophils/100 WBC Auto (Bld)on 10-28-2023 Eosinophils/100 WBC (Bld)2.2 %0.9-7.0[facility] Erythrocyte distribution width Auto (RBC) [Ratio]on 31-51-3168Eifdiobolsl distribution width (RBC) [Ratio]14.6 %11.0-15.0[facility] Estimated glomerular filtration rate (GFR) non- Americanon 10-28-2023 GFR/1.73 sq M.predicted among non-blacks MDRD (S/P/Bld) [Vol rate/Area] mL/min/{1.73_m2}>=60[facility] CenterGlobulin Calc (S) [Mass/Vol]on 24-37-5484Tuqtrjmp (S) [Mass/Vol]5.8 g/dLSalem Regional Medical CenterHematocrit Auto (Bld) [Volume fraction]on 90-55-8819Cgrmiatfxk (Bld) [Volume fraction]40.0 %42.0-54.0[facility] CenterHemoglobin [Mass/volume] in Bloodon 87-95-5532Tthxurstbi (Bld) [Mass/Vol]13.1 g/dL14.0-18.0 [facility] CenterLaboratory - Chemistry and Chemistry - challengeon 80-88-7880Uleseun [Mass/Vol]2.8 g/dL3.4-5.0[facility] CenterALP [Catalytic activity/Vol]94 U/G33-051JqsptyrkfSalem Regional Medical CenterALT [Catalytic activity/Vol]17 U/M87-06IhvymjgnsSal[facility] Regional Medical Center AST [Catalytic activity/Vol]23 U/G44-44AqcymnngySalem Regional Medical Center Bilirubin [Mass/Vol]0.6 mg/dL0.2-1.0[facility] CenterCalcium [Mass/Vol]8.8 mg/dL8.5-10.1FPomerene HospitalChloride [Moles/Vol] 100 mmol/E77-488DqlatwfnaSalem Regional Medical CenterCO2 [Moles/Vol]28.0 mmol/L 21.0-32.0[facility] CenterCreatinine [Mass/Vol]0.80 mg/dL 0.70-1.30[facility] CenterGFR/1.73 sq M.predicted MDRD (S/P/Bld) [Vol rate/Area]mL/min/{1.73_m2}>=60[facility] CenterGlucose [Mass/Vol]135 mg/gT56-559FhoeyejccSalem Regional Medical CenterPotassium [Moles/Vol] 4.5 mmol/L3.5-5.1FPomerene HospitalProtein [Mass/Vol]8.6 g/dL 6.4-8.2FCleveland Clinic Children's Hospital for Rehabilitationodium [Moles/Vol]138 mmol/C127-209 [facility] CenterUrate [Mass/Vol]4.2 mg/dL3.5-7.2FPomerene HospitalUrea nitrogen [Mass/Vol]14.0 mg/dL7.0-18.0[facility] CenterUrea nitrogen/Creatinine [Mass ratio]17.5 mg/mgSalem Regional Medical CenterLaboratory - Hematology and Cell countson 85-09-7525AWE (Bld) [Velocity]62 mm/h<=20[facility] CenterImmature granulocytes/100 WBC (Bld)0.1 %0.0-0.5FPomerene Hospital Leukocytes [#/volume] corrected for nucleated erythrocytes in Blood by Automated counon 91-59-9074VON corrected for nucl RBC Auto (Bld) [#/Vol]7.2 10 3/uL 4.0-11.0[facility] CenterLymphocytes Auto (Bld) [#/Vol]on 97-20-0357Syfxquzhvuv (Bld) [#/Vol]1.9 10 3/uL1.2-3.8[facility] CenterLymphocytes/100 WBC Auto (Bld)on 55-31-3594Homrklueyic/100 WBC (Bld)26.6 % 20.5-60.0[facility] Auto (RBC) [Entitic mass]on 63-57-2010BNW (RBC) [Entitic mass]30.2 pg25.9-34.0[facility] CenterMCHC Auto (RBC) [Mass/Vol]on 87-58-2103BIQU (RBC) [Mass/Vol]32.8 g/dL 29.9-35.2FPomerene HospitalMCV Auto (RBC) [Entitic vol]on 48-26-1483BSW (RBC) [Entitic vol]92.2 fL80.0-94.0[facility] CenterMidbody Ab [Titer] in Serum by Immunofluorescenceon 57-49-4458Lncxwyh Ab IF (S) [Titer]TNP.[facility] CenterMitotic spindle apparatus Ab [Titer] in Serum or Plasma by Immunofluorescenceon 49-00-0180Tsenesj spindle apparatus Ab IF [Titer]TNP.[facility] CenterMonocytes Auto (Bld) [#/Vol]on 95-62-2623Peikhmcvt (Bld) [#/Vol]0.8 10 3/uL0.3-0.8[facility] CenterMonocytes/100 WBC Auto (Bld)on 53-89-7190Uuxqaccwq/100 WBC (Bld) 10.4 %1.7-12.0[facility] CenterNeutrophils Auto (Bld) [#/Vol]on 19-83-1816Bonpabbaexp (Bld) [#/Vol]4.3 10 3/uL1.4-6.5FPomerene HospitalNeutrophils/100 WBC Auto (Bld)on 56-26-6128Ursvihokddr/100 WBC (Bld)60.0 % 43.0-75.0[facility] CenterNo Panel Informationon 48-01-1268Txug- Nuclear Antibody Comment 2Comment.[facility] CenterComment on above:Pattern Potential Disease Association Homogeneous Systemic Lupus Erythematosus, Drug Induced Systemic Lupus Erythematosus, Chronic Autoimmune hepatitis, Juvenile Idiopathic Arthritis Speckled Sjogren Syndrome, Systemic Lupus Erythematosus, Subacute Cutaneous Lupus, Lupus, Congenital Heart Block, Mixed Connective Tissue Disease, Scleroderma-diffuse, Scleroderma- Autoimmune Myositis Overlap Syndrome, Systemic Lupus Nzrchelwyvsqx-Efhmibbsinv-Opvnjfvbsg Myositis Overlap Syndrome, Systemic Autoimmune Rheumatic Disease, [...] Cytopenias, Linear Scleroderma, Antiphospholipid Syndrome Performed at: [facility]Es[facility] HospitalYfuczb[address] [place], [place] [id number] Director: Krunal Nichols PhD, Phone: [phone]-Hvgphipq Protein, Quantitative<0.50 mg/dL <=0.50[facility] CenterEosinophils # (Auto)0.2 10 3/uL0.0-0.7 [facility] CenterImmature Granulocyte # (Auto)0.01 10 3/uL 0.00-0.03[facility] CenterNuclear dots nuclear Ab pattern [Titer] in Serum by Immunofluorescenceon 88-80-9075Owwjfrx dots nuclear Ab pattern IF (S) [Titer]TNP.[facility] CenterNuclear membrane pores nuclear Ab pattern [Titer] in Serum by Immunofluorescenceon 10-28-2023 Nuclear membrane pores nuclear Ab pattern IF (S) [Titer]TNP.[facility] CenterPCNA extractable nuclear Ab [Titer] in Serum by Immunofluorescence on 75-05-7361PYNB extractable nuclear Ab IF (S) [Titer]TN.[facility] CenterPlatelet mean volume Auto (Bld) [Entitic vol]on 44-65-5878Kiydsnrj mean volume (Bld) [Entitic vol]8.9 fL9.5-13.5FPomerene Hospital Platelets Auto (Bld) [#/Vol]on 18-61-1084Rseatypxe (Bld) [#/Vol]296 10 3/uL 150-450[facility] CenterRBC Auto (Bld) [#/Vol]on 20-20-1275KDF (Bld) [#/Vol]4.34 10 6/uL4.70-6.10[facility] Hospitalerum homogeneous pattern antinuclear antibody (VANESSA) titeron 56-27-1828Dkvbulpqxk nuclear Ab pattern (S) [Titer]1:640.[facility] CenterComment on above:ICAP nomenclature: AC-1Serum nuclear antibody titeron 55-04-0269Cynzoyx Ab (S) [Titer]Positive.[facility] CenterComment on above:Negative <1:80 Borderline 1:80 Positive >1:80Serum nucleolar pattern antinuclear antibody (VANESSA) titeron 15-50-4363Kxwhnrmev nuclear Ab pattern (S) [Titer]TN.[facility] Hospitalerum or plasma albumin/globulin mass ratioon 10-28-2023 Albumin/Globulin [Mass ratio]0.5 {ratio}[facility] Hospitalerum or plasma anion gap determinationon 12-00-5472Bfihr gap [Moles/Vol]14.5 mmol/L [facility] Hospitalerum or plasma cyclic adenosine monophosphate measurement (moles/volume)on 73-34-6102Ybsdhqwet monophosphate.cyclic [Moles/Vol]>250 units0-[facility] CenterComment on above: Negative <20 Weak positive 20 - 39 Moderate positive 40 - 59 Strong positive >59Performed at:[facility] [address] [place], [place] [id number] Director: Krunal Nichols PhD, Phone: [phone] or plasma rheumatoid factor measurement (units/volume)on 95-92-3519Lrvxxsxyuu factor Qn183.9 [IU]/mL <14.0[facility] CenterComment on above:Results confirmed ondilution.Performed at: [address] [place], [place] [id number] Director: Krunal Nichols PhD, Phone: [phone] speckled pattern antinuclear antibody (VANESSA) titeron 05-29-8634Ecdobkfd nuclear Ab pattern (S) [Titer]TNP.[facility] CenterGlucose Glucometer (BldC) [Mass/Vol]Ordered By: Erickson Nascimento on 86-31-5293Zulzgpe [Mass/Vol]134 mg/dL [facility] CenterComment on above:Random Glucose Reference Range is dependent on time and content of last meal. Glucose of more than 200 mg/dL in a nonstressed, ambulatory subject supports the diagnosis of Diabetes Mellitus.GLYCOHEMOGLOBIN A1Con 32-95-0177IOD RECOMMENDATIONSEE BELOWCorey HospitalComment on above:Result Comment: ADA RECOMMENDED LIMIT 4.0 - 6.0 ADA THERAPEUTIC TARGET < 7.0 ACTION SUGGESTED > 7.0Performed By: #### DATA1C #### [facility] [address] [place] [address] Dr. Ginger KeaneGlucose [Mass/Vol]123 mg/dLCorey HospitalComment on above:Performed By: #### DATA1C #### [facility] [address] [place] [address] Dr. Ginger KeaneHbA1c (Bld) [Mass fraction]5.9 %Normal4.5-6.2The [facility] SouthComment on above:Performed By: #### DATA1C #### [facility] [address] [place] [address] Dr. Ginger KeaneGLYCOHEMOGLOBIN A1Con 01-28-7982BFQ RECOMMENDATIONSEE BELOWNormal The [facility] SouthComment on above:Result Comment: ADA RECOMMENDED LIMIT 4.0 - 6.0 ADA THERAPEUTIC TARGET < 7.0 ACTION SUGGESTED > 7.0Performed By: #### DATA1C #### [facility] [address] [place] [address] Dr. Ginger KeaneGlucose [Mass/Vol]160 mg/dLNormalThe [facility] SouthComment on above:Performed By: #### DATA1C #### [facility] [address] [place] [address] Dr. Ginger AcostaA1c (Bld) [Mass fraction]7.2 %Critically high4.5-6.2The [facility] SouthComment on above:Performed By: #### DATA1C #### [facility] [address] [place] [address] Dr. Ginger KeaneMICROALBUMIN URINEon 46-14-6742Tpwwmze, Evmau509.8 ug/mLNormalNot Estab.The [facility] SouthComment on above:Performed By: #### MALBLC #### [facility] [address] [place] [address] Dr. Ginger KeaneCBC AUTO DIFFon 31-78-7668IVDC #0.1 103/ulNormal0.0-0.1The [facility] SouthComment on above:Performed By: #### CBC #### [facility] [address] [place] [address] Dr. Ginger KeaneBasophils/100 WBC (Bld)0.6 %Normal0.2-2.0The [facility] Comment on above:Performed By: #### CBC #### [facility] [address] [place] [address] Dr. Ginger Lu #0.2 103/ulNormal0.0-0.7The [facility] SouthComment on above: Performed By: #### CBC #### [facility] [address] [place] [address] Dr. Ginger Phanosinophils/100 WBC (Bld)2.9 %Normal0.9-7.0The [facility] Comment on above:Performed By: #### CBC #### [facility] [address] [place] [address] Dr. Ginger Phanrythrocyte distribution width (RBC) [Ratio]12.9 %Gedlzo84.0-15.0 The [facility] SouthComment on above:Performed By: #### CBC #### [facility] [address] [place] [address] Dr. Ginger KeaneHematocrit (Bld) [Volume fraction]44.3 %Bxdglu81.0-54.0The [facility] SouthComment on above:Performed By: #### CBC #### [facility] [address] [place] [address] Dr. Ginger KeaneHemoglobin (Bld) [Mass/Vol]15.6 g/bTJiuubp99.0-18.0The [facility] SouthComment on above:Performed By: #### CBC #### [facility] [address] [place] [address] Dr. Ginger Boucher #0.01 10e3/ulNormal0.00-0.03The [facility] SouthComment on above:Performed By: #### CBC #### [facility] [address] [place] [address] Dr. Ginger Boucher %0.1 %Normal0.0-0.5The [facility] SouthComment on above: Performed By: #### CBC #### [facility] [address] [place] [address] Dr. Ginger Dominguez #2.9 103/ulNormal1.2-3.8The [facility] SouthComment on above:Performed By: #### CBC #### [facility] [address] [place] [address] Dr. Ginger Blancomphocytes/100 WBC (Bld)34.1 %Mbxudk75.5-60.0The [facility] SouthComment on above:Performed By: #### CBC #### [facility] [address] [place] [address] Dr. Ginger GonzalezUAL DIFF REQNONormalThe [facility] SouthComment on above: Performed By: #### CBC #### [facility] [address] [place] [address] Dr. Ginger Whiteside (RBC) [Entitic mass]32.8 ohZbqizl02.9-34.0The [facility] SouthComment on above:Performed By: #### CBC #### [facility] [address] [place] [address] Dr. Ginger Whiteside (RBC) [Mass/Vol]35.2 g/iKIdpjfa20.9-35.2The [facility] SouthComment on above:Performed By: #### CBC #### [facility] [address] [place] [address] Dr. Ginger Whiteside (RBC) [Entitic vol]93.3 zLUalzux48.0-94.0The [facility] SouthComment on above:Performed By: #### CBC #### [facility] [address] [place] [address] Dr. Ginger Dyer #0.6 103/ulNormal0.3-0.8The [facility] SouthComment on above:Performed By: #### CBC #### [facility] [address] [place] [address] Dr. Ginger Guerreroocytes/100 WBC (Bld)7.5 %Normal1.7-12.0The [facility] Comment on above:Performed By: #### CBC #### [facility] [address] [place] [address] Dr. Ginger Magallon #4.6 103/ulNormal1.4-6.5The [facility] SouthComment on above:Performed By: #### CBC #### [facility] [address] [address] [address] Ginger Rodriguezutrophils/100 WBC (Bld)54.8 %Deqdbh17.0-75.0The [facility] on above:Performed By: #### CBC #### [facility] [address] [address] [address] Ginger Brownlet mean volume (Bld) [Entitic vol]9.7 fLNormal9.5-13.5The [facility] SouthComment on above:Performed By: #### CBC #### [facility] [address] [place] [address] Dr. Ginger KeanePLT260 103/unMrcvox578-157Jjp [facility] SouthCombeaumont hospital on above: Performed By: #### CBC #### [facility] [address] [place] [address] Dr. Ginger KeaneRBC4.75 106/ulNormal4.70-6.10The [facility] SouthComment on above:Performed By: #### CBC #### [facility] [address] [place] [address] Dr. Ginger KeaneWBC8.4 103/ulNormal4.0-11.0The [facility] SouthComment on above: Performed By: #### CBC #### [facility] [address] [place] [address] Dr. Ginger HansonID PROFILEon 91-32-4616IEWJ-HDL RATIO NORMSFlower HospitalComment on above:Result Comment: 3.3 - 4.4 LOW RISK 4.4 - 7.1 AVERAGE RISK 7.1 - 11.0 MODERATE RISK >11.0 HIGH RISKPerformed By: #### BMP, LIPID, ALT #### [facility] [address] [place] [address] Dr. Ginger KeaneCholesterol [Mass/Vol]119 mg/dLNormal<=200The [facility] Comment on above:Performed By: #### BMP, LIPID, ALT #### [facility] [facility] [address] [place] [address] Dr. Yilan ChangCholesterol in HDL [Mass/Vol]37 mg/dLCritically mye06-39Mfx [facility] on above:Performed By: #### BMP, LIPID, ALT #### [facility] [address] [address] [address] Ginger KeaneCholesterol in LDL [Mass/Vol]35.2 mg/dLOhioHealth Shelby Hospital on above:Performed By: #### BMP, LIPID, ALT #### [facility] [address] [place] [address] Dr. Ginger Roqueestermarcia.total/Cholesterol in HDL [Mass ratio]3.2 {ratio} NormalThe [facility] on above:Performed By: #### BMP, LIPID, ALT #### [facility] [address] [place] [address] Dr. Ginger Walsh NORMAL> or = 60 mg/dl - LOW CARDIOVASCULAR RISK <40 mg/dl - HIGH CARDIOVASCULAR RISKCorey HospitalCombeaumont hospital on above:Performed By: #### BMP, LIPID, ALT #### [facility] [address] [place] [address] Dr. Ginger Calix CALC NORMALSEE BELOWCorey HospitalCombeaumont hospital on above:Result Comment: <100 mg/dl OPTIMAL 100 - 129 mg/dl NEAR OR ABOVE OPTIMAL 130 - 159 mg/dl BORDERLINE HIGH 160 - 189 mg/dl HIGH >190 mg/dl VERY HIGH Performed By: #### BMP, LIPID, ALT #### [facility] [address] [place] [address] Dr. Ginger KeaneTriglyceride [Mass/Vol]234 mg/dLCritically high<=150The [facility] on above:Performed By: #### BMP, LIPID, ALT #### [facility] [address] [place] [address] Dr. Ginger KeaneVLDL CALC46.8 mg/dLCorey HospitalCombeaumont hospital on above: Performed By: #### BMP, LIPID, ALT #### [facility] [address] [place] [address] Dr. Ginger KeanePROF CHEM 8 (BAS METB)on 38-05-7820Owtls gap [Moles/Vol]13.3 mmol/LNormalThe [facility] on above:Performed By: #### BMP, LIPID, ALT #### [facility] [address] [place] [address] Dr. Ginger KeaneCalcium [Mass/Vol]8.7 mg/dLNormal8.5-10.1The [facility] Comment on above:Performed By: #### BMP, LIPID, ALT #### [facility] [address] [address] [address] Ginger KeaneChloride [Moles/Vol]102 mmol/OLcllwv91-041Ogz [facility] Comment on above:Performed By: #### BMP, LIPID, ALT #### [facility] [address] [place] [address] Dr. Ginger KeaneCO2 [Moles/Vol]26.8 mmol/TQjtvip69.0-32.0The [facility] Comment on above:Performed By: #### BMP, LIPID, ALT #### [facility] [address] [place] [address] Dr. Ginger KeaneCreatinine [Mass/Vol]0.92 mg/dLNormal0.70-1.30The [facility] above:Performed By: #### BMP, LIPID, ALT #### [facility] [address] [place] [address] Dr. Ginger PhanGFR-AF SOUTH KOREAN>60Normal>=60The [facility] above:Performed By: #### BMP, LIPID, ALT #### [facility] [address] [place] [address] Dr. Ginger PhanGFR-NON AF SOUTH KOREAN>60Normal>=60The [facility] above:Performed By: #### BMP, LIPID, ALT #### [facility] [address] [address] [address] Ginger KeaneGlucose [Mass/Vol]161 mg/dLCritically eooh23-739Lun [facility] on above:Performed By: #### BMP, LIPID, ALT #### [facility] [address] [address] [address] Ginger KeanePotassium [Moles/Vol]4.1 mmol/LNormal3.5-5.1The [facility] Comment on above:Performed By: #### BMP, LIPID, ALT #### [facility] [address] [address] [address] Ginger KeaneSodium [Moles/Vol]138 mmol/CWuqwhh800-818Sib [facility] Comment on above:Performed By: #### BMP, LIPID, ALT #### [facility] [address] [address] [address] Ginger KeaneUrea nitrogen [Mass/Vol]13.0 mg/dLNormal7.0-18.0The [facility] above:Performed By: #### BMP, LIPID, ALT #### [facility] [address] [address] [address] Ginger Mera nitrogen/Creatinine [Mass ratio]14.1 mg/mgNoRegency Hospital Cleveland EastComment on above:Performed By: #### BMP, LIPID, ALT #### [facility] [address] [address] [address] Ginger De La Fuente 20-59-8413SPU [Catalytic activity/Vol]26 U/EKdbazf36-73FjuGerman HospitalComment on above:Performed By: #### BMP, LIPID, ALT #### [facility] [address] [place] [address] Dr. Ginger KeaneGLYCOHEMOGLOBIN A1Con 65-56-7192KML RECOMMENDATIONSEE BELOWNormal The [facility] on above:Result Comment: ADA RECOMMENDED LIMIT 4.0 - 6.0 ADA THERAPEUTIC TARGET < 7.0 ACTION SUGGESTED > 7.0Performed By: #### DATA1C #### [facility] [address] [place] [address] Dr. Ginger KeaneGlucose [Mass/Vol]146 mg/dLNoRegency Hospital Cleveland EastComment on above:Performed By: #### DATA1C #### [facility] [address] [address] [address] Ginger KeaneHbA1c (Bld) [Mass fraction]6.7 %Critically high4.5-6.2The [facility] on above:Performed By: #### DATA1C #### [facility] [address] [place] [address] Dr. Ginger Keane Vital Signs Date TimeVital SignValuePerforming HlirwcacwIldebqlu98-47-3802 11:45-0400Body .8 cmBenjamin Ball DO Work Phone: [phone] [place], [place] 4216609-29-2025 11:45-0400 Body mass index (BMI) [Ratio]28.5 kg/i7Rnpvdqgu Ball DO Work Phone: [phone]09-29-2025 11:45-0400 Body wxvyln73.43 kgBenjamin Ball DO Work Phone: [phone] [place], [place] 4216609-29-2025 11:45-0400 Diastolic blood rbaessph56 mm[Hg]Vernon Ball DO Work Phone: [phone]09-29-2025 11:45-0400 Heart rate95 /minBenjamin Ball DO Work Phone: [phone] [place], [place] 4216609-29-2025 11:45-0400 Respiratory rate12 /minBenjamin Ball DO Work Phone: [phone] [place], [place] 42[address]609-29-2025 11:45-0400 Systolic blood fgynrnuh999 mm[Hg]Vernon Ball DO Work Phone: [phone] [place], [place] 42[address]602-27-2025 11:03-0500 Body zylrok240.8 cm[facility]02-27-2025 11:03-0500Body mass index (BMI) [Ratio]29.7 kg/m9BymngpjwmSalem Regional Medical Center02-27-2025 11:03-0500Body kgSalem Regional [facility] Center02-27-2025 11:03-0500 Diastolic blood zgnfengd71 mm[Hg][facility]02-27-2025 11:03-0500Heart rate98 /[facility]02-27-2025 11:03-0500Respiratory rate12 /[facility]02-27-2025 11:03-0500Systolic blood gjkfffyw709 mm[Hg][facility] 09-24-2024 11:36-0500Body .8 cmSal[facility] 09-24-2024 11:36-0500Body mass index (BMI) [Ratio]29.9 kg/w4EtrzexfsxSalem Regional Medical Center01-24-2025 11:36-0500Body dyrcex38.85 kgSal[facility] Center01-24-2025 11:36-0500Diastolic blood tcdycoji47 mm[Hg][facility]01-24-2025 11:36-0500Heart rate88 /[facility]01-24-2025 11:36-0500Respiratory rate12 /[facility]01-24-2025 11:36-1892FyK3% (BldA) [Mass fraction]95 %[facility]01-24-2025 11:36-0500Systolic blood wnnvhmva529 mm[Hg][facility]09-25-2024 13:28-0400Body ptjhje989.34 cmSal[facility]09-25-2024 13:28-0400Body mass index (BMI) [Ratio]28.2 kg/l1PcgqlkhwiSalem Regional Medical Center09-25-2024 13:28-0400Body .73 kg [facility]09-25-2024 13:28-0400Diastolic blood mm[Hg][facility]09-25-2024 13:28-0400Heart rate77 /min [facility]09-25-2024 13:28-0400Systolic blood atmatzcu831 mm[Hg][facility]09-16-2024 13:51-0400Body temperature 97.81 [degF]Angeles Payan [employer] Work Phone: [facility] CampusSfhtddplsk58-89-7429 13:51-0400Body nzeeni15.81 kgAngeles Payan NP Work Phone: [facility] CampusKuhyicekxm89-25-4349 13:51-0400Diastolic blood wfazkkrf37 mm[Hg]Angeles Payan [employer] Work Phone: [facility] CampusCiuucfwuvr34-49-9599 13:51-0400Heart othv468 /min Angeles Payan [employer] Work Phone: [facility] HealthcareComment on above:repeat puls 96bpm zmpuwt98-05-9676 13:51-0400Respiratory rate20 /minAngeles Payan [employer] Work Phone: [phone] CampusBvptbjixlb91-33-7721 13:51-1334BoA0% (BldA) [Mass fraction]94 %Angeles Payan [employer] Work Phone: [facility] CampusPrfuafblkz09-23-5238 13:51-0400Systolic blood gibpbofw022 mm[Hg]Angeles Payan [employer] Work Phone: [facility] CampusEqdntrbtwj60-28-2883 11:02-0400Body utnqzv031.34 cmDO Vernon Ball Work Phone: [phone]04-30-2024 11:02-0400 Body mass index (BMI) [Ratio]26.4 kg/m2DO Vernon Ball Work Phone: [facility]04-30-2024 11:02-0400 Body yozffu79.89 kgDO Vernon Ball Work Phone: [facility]04-30-2024 11:02-0400 Diastolic blood bjvidsnm10 mm[Hg]DO Vernon Ball Work Phone: [facility]04-30-2024 11:02-0400 Heart rate93 /minDO Vernon Ball Work Phone: [facility]04-30-2024 11:02-0400 Respiratory rate16 /minDO Vernon Ball Work Phone: [facility]04-30-2024 11:02-0400 Systolic blood qlieodne632 mm[Hg]DO Vernon Ball Work Phone: [facility]02-19-2024 15:23-0500 Body eoagbd292.34 cmSal[facility]02-19-2024 15:23-0500Body mass index (BMI) [Ratio]25.5 kg/v3EniwsqaauSalem Regional Medical Center02-19-2024 15:23-0500Body ugdwgv82.09 kgSal[facility] Center02-19-2024 15:23-0500Diastolic blood ecrrkgcp64 mm[Hg][facility] 10-20-2023 15:23-0500Heart rate99 /[facility] 10-20-2023 15:23-0500Respiratory rate20 /[facility] 10-20-2023 15:23-0500Systolic blood wvwvzhra759 mm[Hg][facility]01-31-2024 10:00-0500Body obkfgv122.34 cmBenjamin Ball Other [facility]01-31-2024 10:00-0500 Diastolic blood bwmtovij10 mm[Hg]Vernon Ball Other [facility]01-31-2024 10:00-0500 SaO2% (BldA) [Mass fraction]90 %Vernon Ball Other [employer] Other 01-31-2024 10:00-0500Systolic blood tniasose260 mm[Hg] Vernon Ball Other [facility]12-29-2023 10:00-0500 Body odwsxm688.34 cmBenjamin Ball Other [facility]12-29-2023 10:00-0500 Body mass index (BMI) [Ratio]25.63 kg/x2Clbrtgxf Ball Other [employer] Other 676863-64-3614 10:00-0500Body zyoopv62.37 kgBenjamin Ball Other [facility]12-29-2023 10:00-0500 Diastolic blood aoufqlsi18 mm[Hg]Vernon Ball Other [facility]12-29-2023 10:00-0500 Respiratory rate20 /minBenjamin Ball Other [employer] Other 394254-98-7069 10:00-1564WsB8% (BldA) [Mass fraction]84 % Vernon Ball Other [employer] Other Phone: [phone] 10:00-0500Systolic blood mttkonkk703 mm[Hg] Vernon Ball Other [facility]12-12-2023 11:00-0500 Body koofms148.34 cmBenjamin Ball Other [facility]12-12-2023 11:00-0500 Body mass index (BMI) [Ratio]25.55 kg/k0Rbkdremg Ball Other [employer] Other Phone: [phone] 11:00-0500Body .1 kgBenjamin Ball Other [employer] Other Phone: [phone] 11:00-0500Body inzupj70.09 kgSal[facility] Center12-12-2023 11:00-0500Diastolic blood pmzlbnel84 mm[Hg] Vernon Ball Other [facility]12-12-2023 11:00-0500 Respiratory rate20 /minBenjamin Ball Other [employer] Other Phone: [phone] 11:00-7400BaG9% (BldA) [Mass fraction]94 % Vernon Ball Other [employer] Other 159724-52-3362 11:00-0500Systolic blood gyyqdqyu933 mm[Hg] Vernon Ball Other [facility]11-09-2023 11:45-0500 Body bavjpo829.34 cmBenjamin Ball Other [employer] Other 11-09-2023 11:45-0500Body mass index (BMI) [Ratio] 26.22 kg/y5Ttbdlefd Ball Other [employer] Other 11-09-2023 11:45-0500Body vkdmer47.28 kgBenjamin Ball Other [employer] Other 284630-58-8052 11:45-0500Diastolic blood buscarlg26 mm[Hg] Vernon Ball Other [employer] Other 438889-63-9382 11:45-0500Respiratory rate16 /minBenjamin Ball Other [employer] Other 11-09-2023 11:45-0500Systolic blood mm[Hg] Vernon Ball Other [employer] Other 11-03-2023 08:03-0400Diastolic blood xkufyzwi63 mm[Hg] DO Vernon Ball Work Phone: [facility]11-03-2023 08:03-0400 Heart rate89 /minDO Vernon Ball Work Phone: [phone]11-03-2023 08:03-0400 Respiratory rate16 /minDO Vernon Ball Work Phone: [phone]-[facility]11-03-2023 08:03-0400 SaO2% (BldA) [Mass fraction]93 %DO Vernon Ball Work Phone: [phone]11-03-2023 08:03-0400 Systolic blood uahectha731 mm[Hg]DO Vernon Ball Work Phone: [facility]11-03-2023 06:47-0400 Body zqwyjq380.34 cmDO Vernon Ball Work Phone: [facility]11-03-2023 06:47-0400 Body .2 [degF]DO Vernon Ball Work Phone: [facility]11-03-2023 06:47-0400 Body lpvlxa77.18 kgDO Vernon Ball Work Phone: [facility]11-01-2023 13:45-0400 Body mxpeti941.34 cmJustin Pily Other [employer] Other 11-01-2023 13:45-0400Body mass index (BMI) [Ratio]26.5 kg/r8Rdrcam Pily Other [employer] Other 11-01-2023 13:45-0400Body hiyjey36.18 kgJustin Pily Other [employer] Other 09-19-2023 10:00-0400Body nlqygy628.34 cmBenjamin Ball Other [employer] Other 09-19-2023 10:00-0400Body mass index (BMI) [Ratio] 26.64 kg/b5Dzybuacn Ball Other [employer] Other 09-19-2023 10:00-0400Body plposw70.64 kgBenjamin Ball Other [employer] Other 09-19-2023 10:00-0400Diastolic blood mm[Hg] Vernon Ball Other [employer] Other 09-19-2023 10:00-0400Respiratory rate12 /minBenjamin Ball Other [employer] Other 09-19-2023 10:00-0400Systolic blood eylcgqsy871 mm[Hg] Vernon Ball Other [employer] Other 06-19-2023 10:30-0400Body migqhm023.34 cmBenjamin Ball Other [employer] Other 06-19-2023 10:30-0400Body mass index (BMI) [Ratio] 27.58 kg/e4Ikuvmkwu Ball Other [employer] Other 06-19-2023 10:30-0400Body spyklj94.72 kgBenjamin Ball Other [employer] Other 06-19-2023 10:30-0400Diastolic blood iuxnolpt95 mm[Hg] Vernon Ball Other [employer] Other 06-19-2023 10:30-0400Respiratory rate12 /minBenjamin Ball Other [employer] Other 06-19-2023 10:30-0400Systolic blood djkpxyko447 mm[Hg] Vernon Ball Other [employer] Other 03-20-2023 11:30-0400Body .34 cmBenjamin Ball Other [employer] Other 03-20-2023 11:30-0400Body mass index (BMI) [Ratio] 27.42 kg/k0Uttfkffl Ball Other [facility] Other 03-20-2023 11:30-0400Body ruehnc17.18 kgBentuyet Greene Other [facility] Other 03-20-2023 11:30-0400Diastolic blood kqkpjapx57 mm[Hg] Vernon Greene Other [employer] Other 03-20-2023 11:30-0400Respiratory rate12 /minBentuyet Greene Other [facility] Other 03-20-2023 11:30-0400Systolic blood hnesnetw816 mm[Hg] Vernon Greene Other [facility] Other Encounters Encounter DateEncounter TypeCare ProviderFacilityStart: 05-30-2025 End: 42-68-7033jeiptawhmeQsrgbaaz Ball DO Work Phone: [facility] Work Phone: Start: 05-30-2025 End: 45-82-3474Zelgqpp encounter procedureBenjamin Ball DO-[facility] Work Phone: Start: 18-98-0145Uuv-patient / Non-visitJodi Heather Freeman APRN-[facility] Work Phone: Start: 11-17-2024 End: 41-38-1995Vmvdevr encounter procedureBenjamin Ball DO Work Phone: [facility] [address] Work Phone: Start: 11-17-2024 End: 12-59-9685ufrxnjjiieOnlhqusg Ball DO Work Phone: [facility] Work Phone: Start: 10-28-2024 End: 88-38-0813bjiuamplhdQhrrsiugvMiddletown Hospital Work Phone: Start: 10-28-2024 End: 68-71-9997Rulxsnf encounter procedureSam[facility] Work Phone: Start: 94-89-7772Jha-patient / Non-visitFirelands Physician Group-[facility] Work Phone: Start: 09-24-2024 End: 61-22-3552ttfgcugnewAlxifvyicMiddletown Hospital Work Phone: Start: 09-24-2024 End: 87-20-0206Ofknlcm encounter procedureSampson [facility] Work Phone: Start: 17-61-5673Zwl-patient / Non-visitFirelands Physician Group-[facility] Work Phone: Start: 96-37-8947Swz-patient / Non-visitFirelands Physician Group-[facility] Work Phone: Start: 95-02-5880Ctg-patient / Non-visitFirelands Physician Group-[facility] Work Phone: Start: 63-06-3742Qmx-patient / Non-visitFirelands Physician Group-[facility] Work Phone: Start: 90-43-9925Lgn-patient / Non-visitFirelands Physician Group-[facility] Work Phone: Start: 05-26-2024 End: 69-02-2283jsrszlamyaJyyvogpavMiddletown Hospital Work Phone: Start: 05-26-2024 End: 13-89-0692Oxswnza encounter procedureSampson [facility] Work Phone: Start: 66-36-6453Qoqnhhp encounter procedureGrand Lake Joint Township District Memorial Hospitaltart: 05-17-2024 End: 62-79-6800rfukokguetFJZYVKY R LACONISNot AvailableStart: 05-17-2024 End: 72-83-2368Lqjqua outpatient new 45 minutesAngeles Payan [employer] Work Phone: [facility] UCComment on above:Closed fracture of multiple ribs of left side, initial encounter (Primary Dx); Rib pain on left sideStart: 14-16-1413Esa-patient / Non-visitFirpioneer [facility] Work Phone: Start: 12-31-2023 End: 00-02-3013kkphkgprugSzruqalz BallFacility:[facility] Start: 12-30-2023 End: 69-24-1898rcxutonuqwVL Vernon Youcruit Work Phone: [facility] Work Phone: Start: 12-30-2023 End: 81-23-4644Mlendhh encounter procedureDO Vernon Greene Work Phone: [facility] Work Phone: Start: 74-16-4085Fod-patient / Non-visitDO Vernon Youcruit Work Phone: [facility] Work Phone: Start: 17-87-5554Fcd-patient / Non-visitDO Vernon Greene Work Phone: [facility] GroupSt[facility] Work Phone: Start: 12-09-2023 End: 59-13-7869Oolbvdy encounter procedureDO Vernon Greene Work Phone: [facility] [address] Work Phone: Start: 12-09-2023 End: 56-08-0949cjdknwyksiAE Vernon Greene Work Phone: [facility] Work Phone: Start: 11-26-2023 End: 24-31-1312dwpmyhhdzlOdgsjkoh Ball Other [employer] Other Start: 42-76-1930Vryoztbko encounterBentuyet Greene Medical ClinicStart: 11-24-2023 End: 19-80-8229lvamgniqsrUP Vernon Greene Work Phone: [facility] Work Phone: Start: 11-24-2023 End: 59-79-6158Ndjvwuj encounter procedureDO Vernon Greene Work Phone: [facility] [address] Work Phone: Start: 67-73-9125Gds-patient / Non-visitDO Vernon Greene Work Phone: [facility] Work Phone: Start: 10-20-2023 End: 30-30-9499mzivsmmqlvZbdlvmeql [facility] Work Phone: Start: 10-20-2023 End: 15-81-9231Sgnpzqd encounter procedureSampson [facility] Work Phone: Start: 16-97-5843Frd-patient / Non-visitDO Vernon Greene Work Phone: [facility] Work Phone: Start: 10-07-2023 End: 91-98-0097bbwnkunieoBlxjfzqc Ball Other [facility] [employer] Other Start: 38-10-5056Xxofftrgx encounterBenshadymin Jean [facility] ClinicStart: 10-06-2023 End: 62-66-7543ocjcqdoislScvoyona Ball Other [employer] Other Start: 73-61-0051Tdrcnhdna encounterBenshadymin Jean [facility] ClinicStart: 10-01-2023 End: 95-01-3358eykdjqxyupFols Asaad Other [employer] Other Start: 66-78-3941Xegnrl outpatient visit 25 minutes Vernon [facility] ClinicStart: 47-18-5566Awteiveps encounterImad AsaMingoG Referral CoordinatorStart: 10-01-2023 End: 57-02-4065Cdhfujd encounter procedureFirelands Physician Group-Start: 09-02-2023 End: 28-52-7499ydffqvkqnkTgpvfizj Ball Other [employer] Other Start: 16-36-9024Fnwrwxlth encounterBentuyet yNG [facility] ClinicStart: 08-29-2023 End: 07-58-6572qrxsbxnduxJpsvkgbi Ball Other [employer] Other Start: 83-20-4276Thxdcw outpatient visit 25 minutes Vernon Pena [facility] ClinicStart: 08-29-2023 End: 80-29-2788Tbrhctq encounter procedureFirelands Physician Group-[facility] Work Phone: Start: 08-12-2023 End: 06-87-3045kkrzyypuliKzidexif Ball Other [employer] Other Start: 99-65-1078Rwlsnygcwahd care manage srvc 14 day dischargeBenshadymin YanelyG [facility] ClinicStart: 08-12-2023 End: 32-97-0121Qinompg encounter procedureFirelands Physician Group-[facility] Work Phone: Start: 08-06-2023 End: 27-70-8412ksqqfbwhgkFrmakywb Ball Other [employer] Other Start: 06-42-5422Lsnfernga encounterBenshadymin YanelyG [facility] ClinicStart: 08-01-2023 End: 71-08-1775cetacmglooUxsnetxe Ball Other [employer] Other Start: 91-57-8711Qmlgflomk encounterBenjamin BallFPG [facility] ClinicStart: 07-30-2023 End: 65-70-6797bxotqtueeyEqxqejwk Ball Other [facility] [employer] Other Start: 57-91-6269Ixbtfvhxa encounterBenjamin BallFPG [facility] ClinicStart: 07-16-2023 End: 25-98-9968aiviajnnefRlbcmnv Ditty Other [facility] [employer] Other Start: 96-45-2588Yuycfminj encounterCameron DittyFPG Referral CoordinatorStart: 07-13-2023 End: 07-24-6301fjeiicxpzbIplxzlzx Ball Other [facility] [employer] Other Start: 37-08-7178Dwbrpbzwg encounterBenjamin BallFPG [facility] ClinicStart: 07-10-2023 End: 70-96-4496wwrwgnwbwnNwelatks Ball Other [facility] [employer] Other Start: 46-46-6923Czlnwt outpatient visit 25 minutes Vernon BallFPG [facility] ClinicStart: 51-44-4085Lgtdazkfb encounterBenjamin BallFPG [facility] ClinicStart: 42-01-6913Gauzqjajw encounterBenjamin BallFPG [facility] ClinicStart: 07-04-2023 End: 51-03-1405Tktbbksgq to same day surgery centerDO Vernon Ball Work Phone: [facility] HospitalStart: 07-04-2023 End: 19-70-5798kovwacoahtZI Vernon Ball Work Phone: [facility] Work Phone: Start: 07-02-2023 End: 41-89-6060uxgcvidpjsSnaout P[employer] Other [employer] Other Start: 69-81-9769Bgvlju outpatient visit 25 minutes [facility] OrthopedicsStart: 05-21-2023 End: 12-54-9940vrcyhfqwmfVkhsbobo Ball Other [facility] [place] Other Start: 92-40-4947Qixrhvvvk encounterBenjamin BallFPG [facility] ClinicStart: 05-20-2023 End: 75-97-8425dbvahiiehuYonnlzmv Ball Other [facility] [place] Other Start: 05-86-8205Abpjpcj encounter procedureBenjamin BallFPG [facility] ClinicStart: 02-27-2023 End: 39-60-3524huhunplkgfAhcvlc Pily Other [facility] Other Start: 11-50-4398Ccwkjupab encounterJustin Yeny Chua OrthopedicsStart: 02-26-2023 End: 07-35-1024Lxmuxpe encounter procedureDO Erickson Nascimento Work Phone: [facility] Start: 02-26-2023 End: 48-30-8467yjjxviravmRT Erickson Nascimento Work Phone: [facility] Work Phone: Start: 21-04-7215Gnnyne outpatient new 45 minutes [facility] OrthopedicsStart: 02-17-2023 End: 56-20-1065rrxrkgisbuQlwlmznm Ball Other [facility] [place] Other Start: 26-12-5826Bfsisl outpatient visit 25 minutes Vernon [facility]FP[facility] ClinicStart: 01-09-2023 End: 10-16-3753ptoxvrmhvvQuhfggae Ball Other [facility] [place] Other Start: 02-09-2325Gxocdjgwt encounterBenjamin BallFP[facility] ClinicStart: 12-24-2022 End: 19-24-8374awsqhabegtTjoeyuet Ball Other [facility] Other Start: 55-87-3386Gafmhtsnx encounterBenjamin BallFP[facility] ClinicStart: 11-26-2022 End: 68-51-5620nfwvsdehyeCdaqylbc Ball Other [facility] [place] Other Start: 66-60-6989Zdbczgode encounterBenjamin BallFP[facility] ClinicStart: 11-25-2022 End: 75-34-7967pmmblmqkloHKOHOUZP BALLFacility:J5Usisv: 11-18-2022 End: 30-45-1270wxcxzpaxrdMaxzurfn Ball Other [facility] [place] Other Start: 85-41-2202Xsrpxy outpatient visit 25 minutes Vernon [facility]FP[facility] ClinicStart: 11-15-2022 End: 22-51-2981bqcblzjrphEU NONE LISTED REQUESTFacility:S0Vrues: 11-07-2022 End: 01-55-4893mgoxcxoxlkJldmhghv Ball Other [facility] Other Start: 20-01-7707Nbykrmhhr encounterBenjamin BallFP[facility] ClinicStart: 08-08-2022 End: 46-77-6748zmwprpuvpdEPEYCTFQ BALLFacility:C4Qdogo: 05-15-2022 End: 57-57-3288jpjeybvkvzZIMBWXPT BALLFacility:L1Nxfrx: 05-09-2022 End: 39-45-8845feuwvhzahkLI NONE LISTED REQUESTFacility:H1 Procedures DateProcedureProcedure DetailPerforming ClinicianStart: 73-73-6444Urxci ribs uni w/posteroant ch minimum 3 viewsLindssvetlana Payan [employer] Work Phone: Start: 27-40-0700Kxwgp X-ray of bilateral handsDO Vernon Greene Work Phone: Start: 89-78-9022Y-ray of both kneesDO Vernon Greene Work Phone: Start: 48-84-6766Rpge reduction of fracture with internal fixationDO Vernon Greene Work Phone: Start: 58-45-0934Hxucv X-ray of left elbowDO Erickson Pily Work Phone: Start: 25-18-6505NOH screeningBENJAMIN BALLComment on above:Performed By: #### PSASC #### [facility] [address] [place] [address] Dr. Ginger Keane Plan of Treatment DateCare ActivityDetailAuthorStart: 95-17-7116Zpwarmvgl complement CH50 level [facility] Hospitaltart: 15-23-1138Mgcmbwbhc B core antibody measurementGrand Lake Joint Township District Memorial Hospitaltart: 94-61-1614LoaanchibGrand Lake Joint Township District Memorial Hospitaltart: 47-55-8469Stiyqho referralUniversity Hospitals Ely[facility] Medical Center Work Phone: Start: 38-61-1221WfjpnguwuSalem Regional Medical Center24 hour urine measurementSalem Regional Medical CenterAdenosine monophosphate.cyclic [Moles/volume] in Serum or [facility] HospitalAlbumin [Mass/volume] in Serum or [facility] Albumin/Globulin ratioSalem Regional Medical CenterComplement C3 [Mass/volume] in Serum or [facility] HospitalComplement C4 [Mass/volume] in Serum or [facility] HospitalComprehensive metabolic 1999 panel - Serum or [facility] Comprehensive metabolic 1999 panel - Serum or [facility] HospitalComprehensive metabolic 2000 panel - Serum or [facility] HospitalElectrophoresis: qnauz-8-kikmjlzoUbdevseohSalem Regional Medical Center Electrophoresis: kxphx-3-sogskgztSszeiigvzSalem Regional Medical Center Electrophoresis: beta-globulinSalem Regional Medical CenterElectrophoresis: gamma globulinSalem Regional Medical CenterGlobulin [Mass/volume] in Serum [facility] CenterHepatitis B virus surface Ab [Presence] in SerumSalem Regional Medical CenterHepatitis B virus surface Ag [Presence] in Serum or Plasma by ImmunoassaySalem Regional Medical CenterHepatitis C virus IgG Ab [Presence] in Serum or Plasma by ImmunoassaySalem Regional Medical CenterHomogenous nuclear Ab pattern [Titer] in SerumSalem Regional Medical CenterIgA [Mass/volume] in Serum or PlasmaSalem Regional Medical CenterIgG [Mass/volume] in Serum or [facility] HospitalIgM [Mass/volume] in Serum or [facility] HospitalImmunofixation for UrineSalem Regional Medical CenterKappa light chains.free [Mass/volume] in Kindred HealthcareKapp light chains.free/Lambda light chains.free [Mass Ratio] in Kindred HealthcareLambda light chains.free [Mass/volume] in Serum or [facility] Measurement of monoclonal protein concentrationSalem Regional Medical Center Microalbumin [Mass/volume] in UrineSalem Regional Medical Center Myeloperoxidase Ab [Units/volume] in Serum by ImmunoassaySalem Regional Medical CenterNeutrophil cytoplasmic Ab.classic [Titer] in Serum by ImmunofluorescenceSalem Regional Medical CenterNeutrophil cytoplasmic Ab.perinuclear.atypical [Titer] in Serum by ImmunofluorescenceSalem Regional Medical CenterNuclear Ab [Titer] in SerumSalem Regional Medical CenterP- ANCA measurementSalem Regional Medical CenterPatient EducationLow back pain in adultsKettering Memorial Hospital Work Phone: Patient referralUniversity Hospitals Elyria Medical Center Work Phone: Protein [Mass/volume] in Serum or PlasmaSalem Regional Medical CenterProtein [Mass/volume] in UrineSalem Regional Medical CenterProteinase 3 Ab [Units/volume] in Serum by ImmunoassaySalem Regional Medical CenterRheumatoid factor [Units/volume] in Serum or PlasmaGrand Lake Joint Township District Memorial Hospitalerum immunofixationSalem Regional Medical CenterXR Lumbar spine ViewsFirelands Regional Medical [facility] Immunizations Immunization DateImmunizationNotesCare NjsccrvsQhvzfizc81-15-6218hggidlebdgsc polysaccharide vaccine, 23 Wilfredo Greene Other [facility]10-31-2017diphtheria, tetanus toxoids and acellular pertussis vaccine, unspecified formulation Vernon Greene Other [facility]10-31-2017 pneumococcal conjugate vaccine, 13 valTerri Greene Other [facility] Payers DatePayer CategoryPayerPolicy [id number] MEDICARE ADVANTAGE [facility] MEDICARE ADVANTAGE [id number] 2023-Present [address] [place] [id number] 1960Medicare [id number] 2..[id number]-[id number] 2..1.321682.3.57[id number] 2..1.238501.3.57[id number] 2..1.574909.3.57[id number] 2.840.1.24[id number] 2.0.1.974783.3.579.2.593 [id number] 2..1.1[id number] 2.840.1.5[id number] 2.840.1.966659.3.579.2.531 [id number] 2..840.1.0[id number] 2..840.1.833026.3.579.2.531 Social History DateTypeDetailFacilitySex Assigned At [facility] Other Start: 78-64-5694Sag Assigned At [facility] Centertart: 07-04-2023 End: 34-61-5406Lkribmt smoking status NHISEx-smoker (finding)[facility] Hospitaltart: 39-51-0090Xrsjrgv smoking status NHISNever smoked tobacco [facility] HealthcareStart: 01-51-8539Tbsizno use and exposureSmokeless tobacco non-userMCKAY-DEE HOSPITAL CENTER HealthcareStart: 03-77-0510Etooqqsvu beverage intakeCurrent drinker of alcohol (finding)[facility] HealthcareStart: 44-22-8826Okc assigned at [facility] health rexNot on fileMCKAY-DEE HOSPITAL CENTER HealthcareStart: 09-24-2024 End: 65-31-9424RiwPsjy (finding)[facility] Goals DatePatient GoalDesired Activity/State Clinical Notes 11-18-2022 to 09-24-2024 Note Date & IjpwFjblQnvopelq93-62-9654 Evaluation note* Diagnosis Onset Date Resolution Status [...] positive rheumatoid factoracute October 28, 2024 10:50am [facility] Work Phone: 1(167) 963-536009-16-2024 History of Present illness Narrative* Angeles Payan, [...] left w chest anteroposterior documented in this encounterResearch Medical Center-Brookside CampusLabtmtiuui06-40-1056 Evaluation note* Encounter Date Diagnosis Assessment Notes Treatment Notes Treatment Clinical Notes Oct, Interstitial lung disease (ICD-1 0 - J84.9) Oct,Hypoxia (ICD-10 - R09.02) Oct,Nicotine dependence, cigarettes, in remission (ICD-10 - F17.211)Age started 17 1 ppd Age quit 52 [facility] Other 01-31-2024 Evaluation note* Encounter Date Diagnosis [...] as needed. CXR, f/u from COVID infection [facility] Other 12-29-2023 Evaluation note* Encounter Date Diagnosis [...] 1 ppd Age quit 52 Continue abstinence [facility] Other 12-12-2023 Evaluation note* Encounter Date Diagnosis [...] and hypoxia. MDI and oxygen for now. [facility] Other 12-01-2023 Evaluation note* Encounter Date Diagnosis Assessment Notes Treatment Notes Treatment Clinical Notes Aug, Weight loss (ICD-10 - R63.4) [facility] Other 11-09-2023 Evaluation note* Encounter Date Diagnosis [...] or bowel habits. No melena or hematochezia [facility] Other 11-01-2023 Evaluation note* Encounter Date Diagnosis [...] up. Jul,Elbow mass, left (ICD-10 - R22.32) [facility] Other 09-19-2023 Evaluation note* Encounter Date Diagnosis [...] PSA (prostate specific antigen) (ICD-10 - Z12.5) [facility] Other 06-28-2023 Evaluation note* Encounter Date Diagnosis [...] as documented in the electronic medical record. [facility] Other 06-19-2023 Evaluation note* Encounter Date Diagnosis [...] wks. Nontender and mobile. Refer to [facility] [place] [facility] Other 03-27-2023 NotePROCEDURE: XR KNEE LT 3V [...] Electronically authenticated by: VINNY MURILLO Date: 2022-11-25 10:55[facility]03-20-[facility] Evaluation note* Encounter Date Diagnosis Assessment [...] PPI and if no improvement, EGD [facility] Other Evaluation noteNo InformationNortSpecial Care Hospital [facility] Other Evaluation noteNo assessment information available [facility] Work Phone: Evaluation note* Diagnosis Onset Date Resolution Status Inflammatory polyarthritis acute [facility] Work Phone: Evaluation note* Diagnosis Onset Date Resolution Status ASHD (arteriosclerotic heart disease) [id number] (interstitial lung disease)acute Inflammatory polyarthritisacuteNicotine dependence, cigarettes, in remission acuteSinus tachycardiaacute [facility] Work Phone: Evaluation note* Diagnosis Onset Date Resolution Status ASHD (arteriosclerotic heart disease) acuteHypoxiaacuteILD (interstitial lung disease)acuteInflammatory polyarthritis acuteNicotine dependence, cigarettes, in remissionacuteSinus tachycardiaacute ASHD (arteriosclerotic heart disease)acuteHypoxiaacuteILD (interstitial lung disease)acuteMucopurulent chronic bronchitisacuteNicotine dependence, cigarettes, in remissionacuteRheumatoid arthritis involving both hands with positive rheumatoid factoracuteType 2 diabetes mellitus with hyperglycemiaacute [facility] Work Phone: Evaluation note* Diagnosis Onset Date Resolution Status ASHD (arteriosclerotic heart disease) acuteHypercholesterolemiaacuteHypoxiaacuteILD (interstitial lung disease)acute Medicare annual wellness visit, subsequentacuteMucopurulent chronic bronchitis acuteNicotine dependence, cigarettes, in remissionacuteRheumatoid arthritis involving both hands with positive rheumatoid factoracuteScreening PSA (prostate specific antigen)acuteType 2 diabetes mellitus with hyperglycemiaacute [facility] Work Phone: Evaluation note* Diagnosis Closed [...] 2 diabetes mellitus with hyperglycemiaacuteJanuary 2024 11:26am [facility] Work Phone: Evaluation note* Diagnosis Onset [...] 11:19amType 2 diabetes mellitus with hyperglycemiaacuteSept2024 11:19am [facility] Work Phone: History general Narrative - [...] without long-term current use of insulinSurgical HistoryLHC PTCA/[id number] Surgical KnhxkyfRVR0118Hzvytyhwrgcboxr HistorySEE SURGICAL [facility] Other History general Narrative - Reported* Type [...] without long-term current use of insulinSurgical HistoryLHC PTCA/[id number] Surgical CdkiifjMYN4385Ewghbqyg HistoryExcision left elbow mass07/2023 Hospitalization HistorySEE SURGICAL HX [facility] Other Hospital Discharge instructions Additional Instructions Orthopedic [...] prescribed. You may take Motrin or Tylenol pzlv-ujv-jdsqcjz if you wish. Follow-up in [address] Erickson [facility] [place], [place] [address] [phone] Hospitals Elyria Medical Center Work Phone: Reason for referral (narrative)* Reason *Waiting for appt Referral for recurrent left Olecranon bursa and SC nodule Diagnosis 1 Olecranon bursitis o f left elbow (M70.22) Diagnosis 2 Subcutaneous nodule (R22.9) Referral Organization [facility] linkatie Referring Provider First Name Vernon Referring Provider Last Name Jc Referring Provider Specialty Internal Mi dicine Referred Organization [facility] Referred Provider Erickson Nascimento Referred Address [address] [facility] [place], [place],[address] Referred Provider Specialty Orthopedic S urgery Referral [...] 02/17/2023 11:21:37 AM >received today, sent P2P [facility] Other Reason for referral (narrative)* Reason Referral for screeni ng colonoscopy and EGD Diagnosis 1 Unexplained weight l oss (R63.4) Diagnosis 2 Epigastric discomfor t (R10.13) Diagnosis 3 Serum lipase elevati on (R74.8) Diagnosis 4 Colon cancer screeni ng (Z12.11) Referral Organization [facility] berta Referring Provider First Name Vernon Referring Provider Last Name Jc Referring Provider Specialty Internal Me dicine Referred Organization [facility] Referred Provider Rochelle Woodard Referred Address [address] [place], [place],[address] Referred Provider Specialty Gastroentero logy Referral Priority [...] be done within the next 2-3 wks. [employer] Other Reason for referral (narrative)No reason for referral information availableKettering Memorial Hospital Work Phone: Summary Purpose Family History [...] 1 weekReason for VisitASHD (arteriosclerotic heart disease) [id number] Hypoxia ILD (interstitial lung disease) Inflammatory polyarthritis Nicotine dependence, cigarettes, in remission Sinus tachycardia Chief Complaint 4 Month Follow Up 1 week M35.9;Z11.59;Z79.899;D89.2 Hand pain Knee PainReason for VisitASHD (arteriosclerotic heart disease) [id number] Hypoxia ILD (interstitial lung disease) Inflammatory polyarthritis [...] Admit Date ASHD (arteriosclerotic heart disease) [facility] 2024 11:26am Hypercholesterolemia September 24, 2024 11:26am [...] Admit Date ASHD (arteriosclerotic heart disease) [facility] 2024 11:26am Hypercholesterolemia September 24, 2024 11:26am [...] 11:19am Type 2 diabetes mellitus with hyperglyce [facility] May 30, 2025 11:19am Additional Source [...] section and content) DATE CREATED AUTHOR 12/02/2022 [facility] DATE CREATED AUTHOR AUTHOR'S ORGANIZ ATION 05/23/2024 [facility] DATE CREATED AUTHOR AUTHOR'S ORGANIZ ATION 11/27/2024 [facility] Care Teams (unrecognized sec [...] Team Status: Inactive Member Role Status Dates eVrnon Greene DO Primary Care Provider Active Start: [...] 2024 Team Status: Inactive Member Role Status iKnga Greene DO Primary Care Provide r, Attending [...] BE BASED ON THE PRIMARY CLINICAL RECORDS. [employer] provides no warranty or guarantee of the accuracy or completeness of information in this document.
[2025-06-23 14:19] LABS: Glucose Urine UA >=1000 mg/dL (NEGATIVE)
[2025-06-23 15:02] LABS: Cast Seen? NONE SEEN #/LPF (NONE SEEN); Crystals Seen? None Seen #/HPF (None Seen)
[2025-06-24 16:09] LABS: Albumin 3.5 g/dL (2.9-4.4); Alpha-1-Globulin 0.3 g/dL (0.0-0.4); Alpha-2-Globulin 1.1 g/dL (0.4-1.0); Gamma Globulin 1.6 g/dL (0.4-1.8)
== END 2025-06-23 12:18 | disposition home or self-care (01) ==
LOC: LAB 12:19
PROVIDERS: PCP Internal Medicine; Visit Provider Nurse Practitioner Family
DX: M05.79 Rheumatoid arthritis with rheumatoid factor of multiple sites without organ or systems involvement (principal); Z79.899 Other long term (current) drug therapy; R79.89 Other specified abnormal findings of blood chemistry
CPT/HCPCS: 36415; 81001; 84155; 84156; 84165; 84166; 86160; 86162; 86335

== ENCOUNTER 2025-06-23 12:21 | Outpatient (OUT) | payer MEDICARE, SELFPAY ==
--- OUTSIDE RECORDS SUMMARY | 2025-06-23 12:28 | XMS_ITS | CCD ---
Author Organization [facility] CliniSyne Care Team Providers Care Marketing Technology Coordinator Name Role Phone Vernon Greene Unavailable VERNON [...] Consulting Unavailable DO Erickson Nascimento Attending Provider [phone] Erickson Nascimento Unavailable DO Erickson Nascimento Attending Provider [phone] DO Vernon Greene Primary Care Provider [phone] Navneet Puga Unavailable Asaad, Imad Unavailable DO [...] Vernon Greene DO Primary Care Provider Dorys Freemna APRN Attending Provider Vernon Greene DO Attending Provider Medications Current Medications MedicationDrug Class(es)DatesSig (Normalized)Sig (Original)Accu-Chek Nury Plus - (20 sources)Accu-Chek Nury Plus - USE 1 STRIP TO TEST BLOOD SUGAR ONCE EVERY DAY for 90 [id number] 200 actuat albuterol 0.09 mg/actuat metered dose inhaler (20 sources)beta2-Adrenergic AgonistStart: 12-22-2023 End: 16-76-8342fivy 2 puff(s) by mouth every six hours as needed for wheezing Albuterol Sulfate 90 mcg/actuation HFA aerosol inhaler Active 0 .ROUTE .COMPLEX 8.5 May 4:32pm INHALE 2 PUFFS BY MOUTH EVERY 6 HOURS NEEDED FOR WHEEZING OR SHORTNESS OF BREATH Complies with drug therapyStart: 12-22-2023 End: 42-31-3445fcez 1 puff(s) by inhalation every six hours as needed for wheezingAlbuterol Sulfate 90 mcg/actuation HFA aerosol inhaler Discontinued 2 PUFF INHALATION Every 6 hoursas needed for shortness of breath or wheezing December 22, 2023 12:00am December 22, 2023 4:50pmStart: 23-75-5310trgx 2 puff(s) by inhalation every six hours [...] acid 70 mg oral tablet (1 source)BisphosphonateStart: 59-79-5768txit 1 tablet by mouth every week Alendronate 70 mg tablet Active 70 MG PO every week 4 28 Jennifer 17th, 2025 12:00am Complies with drug therapyaspirin 81 mg oral tablet (10 sources)Platelet Aggregation Inhibitor, Nonsteroidal Anti-inflammatory Drug Start: 30-10-3520gywz 1 capsule by mouth once dailyAspirin 81 mg Capsule Active 81 MG PO Daily July 04, 2023 12:00am Complies with drug therapyatorvastatin 80 mg oral tablet (20 sources)HMG-CoA Reductase InhibitorStart: 12-19-2023 End: 71-70-9132dzyc 1 tablet by mouth once daily in the eveningAtorvastatin 80 mg tablet Active 0 .ROUTE .COMPLEX December 14, 2024 10:01pm TAKE 1 TABLET BY MOUTH EVERY DAY IN THE EVENING Complies with drug therapyStart: 07-04-2023 End: 73-67-8765sixs 1 tablet by mouth once dailyAtorvastatin 80 mg tablet Discontinued 80 MG PO Daily July 04, 2023 12:00am December 19, 2023 1:34pm dapagliflozin 10 mg oral tablet (20 sources)Sodium-Glucose Cotransporter 2 InhibitorStart: 62-54-0874umgx 1 tablet by mouth once dailyDapagliflozin Propanediol (Farxiga) 10 mg tablet Active 0 .ROUTE .COMPLEX June 21, 2024 10:43am TAKE 1 TABLET BY MOUTH EVERY DAY Complies with drug therapyStart: 07-04-2023 End: 50-49-8950xvwi 1 tablet by mouth once dailyDapagliflozin Propanediol (Farxiga) 10 mg tablet Discontinued 10 MG PO Daily July 04, 2023 12:00am June 21, 2024 10:43amhydroxychloroquine sulfate 200 mg oral tablet (9 sources)Antimalarial, Antirheumatic AgentStart: 85-32-5385rccq 1 tablet by mouth once dailyHydroxychloroquine (Plaquenil) 200 mg tablet Active 200 MG PO Daily December 01, 2023 12:00am Complies with drug therapytake 1 tablet by mouth twice daily at mealtimehydroxychloroquine (Plaquenil) 200 MG tablet TAKE 1 TABLET BY MOUTH TWICE DAILY WITH FOOD. REMEMBERYEARLY EYE EXAM Activelosartan potassium 25 mg oral tablet (20 sources)Angiotensin 2 Receptor BlockerStart: 86-13-9226eayt 1 tablet by mouth once dailyLosartan 25 mg tablet Active 0 .ROUTE .COMPLEX June 21, 2024 10:43am TAKE 1 TABLET BY MOUTHEVERY DAY Complies with drug therapyStart: 07-04-2023 End: 60-83-8630owzl 1 tablet by mouth once dailyLosartan 25 mg tablet Discontinued 25 MG PO Daily July 04, 2023 12:00am June 21, 2024 10:4 3ammetFORMIN hydrochloride 1000 mg oral tablet (20 sources)BiguanideStart: 56-89-6364crae 1 tablet by mouth before breakfast Metformin 1,000 mg tablet Active 0 .ROUTE .COMPLEX 180 June 21, 2024 10:43am TAKE 1 TABLET BY MOUTH BEFORE BREAKFAST AND EVENING MEAL 90 Complies with drug therapyStart: 07-04-2023 End: 04-66-4276cjcm 1 tablet by mouth once dailyMetformin 1,000 mg tablet Discontinued 1000 MG PO Daily July 04, 2023 12:00am June 21, 2024 10:43am24 hr metoprolol succinate 25 mg extended release oral tablet (20 sources)beta-Adrenergic BlockerStart: 94-86-7589nadj 1 tablet by mouth once dailyMetoprolol Succinate 25 mg tablet extended release 24 hr Active 0 .ROUTE .COMPLEX 90 June 21, 2024 10:43am TAKE 1 TABLET BY MOUTH EVERY DAY Complies with drug therapyStart: 07-04-2023 End: 77-75-8131stxu 1 tablet by mouth once dailyMetoprolol Succinate 25 mg tablet extended release 24 hr Discontinued 25 MG PO Daily July 04, 2023 12:00am June 21, 2024 10:43ammoxifloxacin 5 mg/ml ophthalmic solution (1 source)Quinolone AntimicrobialStart: 39-84-3819Oaqialmsxvvf 0.5 % drops Active DROPS OPHTHALMIC May 30, 2025 12:00am Complies with drug therapy mycophenolate mofetil 500 mg oral tablet (4 sources)Start: 10-74-1842jutm 1 tablet by mouth twice dailyMycophenolate Mofetil (Cellcept) 500 mg tablet Active 500 MG PO Twice daily 60 June 24, 2024 12:00am Complies with drug therapynitroglycerin 0.4 mg sublingual tablet (20 sources)Nitrate VasodilatorStart: 07-04-2023 End: 56-85-0850yznm 1 tablet under the tongue once daily as needed for pain Nitroglycerin 0.4 mg tablet, sublingual Active 0.4 MG SUBLINGUAL Daily as needed for Chest Pain August 11, 2024 6:39pm pt has never used Complies with drug therapyNitroglycerin 0.4 MG 1 tablet Sublingual PRN Activeomeprazole 20 mg delayed release oral tablet (15 sources)Proton Pump InhibitorStart: 64-90-8966kejq 1 tablet by mouth once dailyOmeprazole 20 mg Tablet,Delayed Release (Dr/Ec) Active 20 MG PO Daily July 04, 2023 12:00am Complies with drug therapyStart: 14-99-2594wfkp 1 capsule by mouth once dailyOmeprazole 40 MG 1 capsule 30 minutes before morning meal Orally Once a day for 30 days Oct, ActiveOzempic, 1 MG/DOSE, 4 MG/3ML solution pen-injector (2 sources)Start: 30-75-9374hqdhdt 1 mg by subcutaneous injection every week Ozempic, 1 MG/DOSE, 4 MG/3ML solution pen-injector INJECT 1MG SUBCUTANEOUSLY EVERY WEEK FOR 28 DAYS04/18/2024 ActivepredniSONE 5 mg oral tablet (6 sources)Start: 01-42-9173ceyi 1 tablet by mouth every other dayPrednisone 5 mg tablet Active 5 MG PO .QOD September 24, 2024 1:00am Complies with drug therapyStart: 06-94-1110zrqvnlYXQP (Deltasone) 5 MG tablet 05/13/2024 Active Semaglutide (14 sources)Start: 49-73-7685clibry 1 mg by subcutaneous injection every week Semaglutide (Ozempic) 1 mg/dose (4 mg/3 mL) pen injector Active 1 MG SUBCUT every week 3 April 11, 2025 12:46pm Complies with drug therapyStart: 09-03-2024 End: 59-07-9261zhfidw 1 mg by subcutaneous injection every weekSemaglutide (Ozempic) 1 mg/dose (4 mg/3 mL) pen injector Discontinued 1 MG SUBCUT every week 3 September 03, 2024 2:11pm April 11, 2025 12:46pmStart: 72-15-6887qsyrbm 1 mg by subcutaneous injection every weekSemaglutide (Ozempic) 1 mg/dose (4 mg/3 mL) pen injector Active 1 MG SUBCUT every week 3 2024 2:11pm Start: 91-57-5622hruxxm 1 mg by subcutaneous injection every weekSemaglutide (Ozempic) 1 mg/dose (4 mg/3 mL) pen injector Active 1 MG SUBCUT every week 3 2024 1:11pmStart: 07-19-2024 End: 30-64-8616aozfax 1 mg by subcutaneous injection every weekSemaglutide (Ozempic) 1 mg/dose (4 mg/3 mL) pen injector Discontinued 1 MG SUBCUT every week 3 July 19, 2024 9:57pm September 03, 2024 2:11pmStart: 07-19-2024 End: 61-77-3606ecoosl 1 mg by subcutaneous injection every weekSemaglutide (Ozempic) 1 mg/dose (4 mg/3 mL) pen injector Discontinued 1 MG SUBCUT every week 3 July 19, 2024 8:57pm September 03, 2024 1:11pmStart: 01-28-2024 End: 52-99-5802gaqqhk 1 mg by subcutaneous injection every weekSemaglutide (Ozempic) 1 mg/dose (4 mg/3 mL) pen injector Discontinued 1 MG SUBCUT every week 3 January 28, 2024 12:00am July 19, 2024 9:58pmStart: 01-28-2024 End: 97-27-7812byzjzg 1 mg by subcutaneous injection every weekSemaglutide (Ozempic) 1 mg/dose (4 mg/3 mL) pen injector Discontinued 1 MG SUBCUT every week 3 January 27, 2024 11:00pm July 19, 2024 8:58pmStart: 39-30-9732hysryn 1 mg by subcutaneous injection every weekSemaglutide (Ozempic) 1 mg/dose (4 mg/3 mL) pen injector Active 1 MG SUBCUT every week 3 January 28, 2024 12:00am Completed/Discontinued Medications MedicationDrug Class(es)DatesSig (Normalized)Sig (Original)Dulaglutide (20 sources)GLP-1 Receptor AgonistStart: 07-04-2023 End: 64-95-7235Pmwvvmbukqc (Trulicity) 3 mg/0.5 mL pen injector Discontinued 3 MG SUBCUT every week July 04, 2023 12:00am January 28, 2024 5:52pmTrulicity 3 MG/0.5ML INJECT 1 PEN SUBCUTANEOUSLY ONCE A WEEK ActiveTrulicity 3 MG/0.5ML as directed Subcutaneous ActiveDulaglutide (Trulicity) 3 mg/0.5 mL pen injector (9 sources)Start: 07-04-2023 End: 27-89-9422Cdmnondoobq (Trulicity) 3 mg/0.5 mL pen injector Discontinued 3 MG SUBCUT every week July 03, 2023 11:00pm January 28, 2024 4:52pmStart: 07-04-2023 End: 61-40-7481Vatqmgcxssw (Trulicity) 3 mg/0.5 mL pen injector Discontinued 3 MG SUBCUT every week July 04, 2023 12:00am January 28, 2024 5:52pmStart: 34-30-8198Czfcvfnrxhl (Trulicity) 3 mg/0.5 mL pen injector Active 3 MG SUBCUT every week July 03, 2023 11:00pmStart: 77-06-4620Bjtdmxmpdzi (Trulicity) 3 mg/0.5 mL pen injector Active 3 MG SUBCUT every week July 04, 2023 12:00am meloxicam 15 mg oral tablet (20 sources)Nonsteroidal Anti-inflammatory DrugStart: 12-03-2023 End: 81-94-9457cfga 1 tablet by mouth once dailyMeloxicam 15 mg tablet Discontinued 0 .ROUTE .COMPLEX December 03, 2023 9:57am May 26, 2024 1:31pm TAKE 1 TABLET BY MOUTH EVERY DAYStart: 10-20-2023 End: 64-31-1957rxrh 1 tablet by mouth once dailyMeloxicam 15 mg tablet Discontinued 15 MG PO Daily November 03, 2023 6:58pm December 03, 2023 9:58am traMADol hydrochloride 50 mg oral tablet (13 sources)Opioid AgonistStart: 11-05-2024 End: 94-08-7035vwkx 1 tablet by mouth every eight hours as needed for pain Tramadol 50 mg tablet Discontinued 50 MG PO Every 8 hours as needed for pain 21 03May 30, 2025 11:43am May 30, 2025 11:44amStart: 07-04-2023 End: 37-56-3091ivnd 1 tablet by mouth every four hours [...] sources)Coronary arteriosclerosis; Translations: [Atherosclerotic heart disease of [place] coronary artery without angina pectoris]ChronicDiabetes mellitus with complications (20 sources)Polyneuropathy due to type 2 diabetes mellitus; Translations: [Type 2 diabetes mellitus with diabetic polyneuropathy]Onset: 96-24-2957Ohqadrd Diabetes mellitus without complication (2 sources)Type 2 diabetes mellitus; Translations: [Type 2 diabetes mellitus without complications]61-39-9374DghizlhDfsjpaztm of lipid metabolism (20 sources)Pure hypercholesterolemia; Translations: [Familial hypercholesterolemia]Onset: 13-53-7009NkvdudiLrhhbqhgrx disorders (20 sources)Gastro-esophageal reflux disease with esophagitis; Translations: [Gastroesophageal reflux disease with esophagitis without hemorrhage]01-19-2025 ChronicEssential hypertension (20 sources)Essential hypertension; Translations: [Essential (primary) hypertension]Onset: 05-63-3233XycbiidHrwjohzldhv of prostate (20 sources)Lower urinary tract symptoms due to benign prostatic hypertrophy; Translations: [Benign prostatic hyperplasia with lower urinary tract symptoms] ChronicOther aftercare (20 sources)H/O: high risk medication; Translations: [Other longterm (current) drug therapy]EpisodicOther aftercare (2 sources)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; Translations: [OTH SLASHER HAND CURRENT DRUG THERAPY]Onset: 98-94-1617VhwkgxxvPhlyq connective tissue disease (2 sources)Disorder of connective tissue; Translations: [Polymyalgia rheumatica] 57-94-4631NqsnpopDylkg connective tissue disease (3 sources)Olecranon bursitis, left [...] sources)Interstitial lung disease; Translations: [Interstitial pulmonary disease, unspecified]35-02-1036JlqevavCftxcbg on above:CT chest: interstitial changes, pulmonary fibrosis - T chest: interstitial changes, pulmonary fibrosis - 04/2024,CT chest: peripheral fibrosis - 10/2024Other lower respiratory disease (9 sources)Interstitial pulmonary disease, unspecified; Translations: [Postinflammatory pulmonary fibrosis]ChronicOther lower respiratory disease (6 sources)Fibrosis of lung; Translations: [Pulmonary fibrosis, unspecified] 84-51-4410AslfxdnZoicr lower respiratory disease (12 sources)Hypoxemia; Translations: [Hypoxemia]EpisodicOther lower respiratory disease (10 sources)Hypoxia; Translations: [Hypoxemia]39-68-2497ShprqjxaXapam nervous system disorders (20 sources)Chronic pain; Translations: [...] for screening for malignant neoplasm of colon]Onset: 53-13-5832DkasdxzvMlnuoac on above:PSA: 0.9 - Jun 2024,Other skin disorders (1 source)Localized swelling, mass and lump, unspecifiedEpisodicOther skin disorders (1 source)Localized swelling, mass and lump, left upper limbEpisodicOther skin disorders (10 sources)Localized swelling, mass and lump, unspecified upper limb; Translations: [Elbow mass]27-32-3827XpajdzilHbawx upper respiratory disease (20 sources)Bleeding from nose; Translations: [Epistaxis]EpisodicRespiratory failure; insufficiency; arrest (adult) (2 sources)Dependence on supplemental oxygen; Translations: [Dependence on supplemental oxygen]83-68-2418YdabopqEeirgyccih arthritis and related disease (20 sources)Inflammatory polyarthropathy; Translations: [Inflammatory polyarthropathy]Onset: 488759-82-4356WesbcvxDofbwnejcha; intervertebral disc disorders; other back problems (20 sources)Lumbar spondylosis; Translations: [Spondylosis without myelopathy or radiculopathy, lumbar region]ChronicSpondylosis; intervertebral disc disorders; other back problems (8 sources)Low back pain; Translations: [Low back pain]49-68-6874Vyrlcltx Substance-related disorders (20 sources)Tobacco user; Translations: [Nicotine dependence, cigarettes, in remission]ChronicSystemic lupus erythematosus and connective tissue disorders (1 source)Systemic involvement of connective tissue, unspecified; Translations: [Systemic involvement of connective tissue, unspecified]Onset: 25-26-1929Mdfnqcd Viral infection (12 sources)COVID-19; Translations: [Pneumonia due to COVID-19 virus]10-18-2023 Episodic Past or Other Problems Problem ClassificationProblemDateDocumented DateEpisodic/ChronicEsophageal disorders (5 sources)Esophageal disordersOther connective tissue disease (1 source)Pain in right hand; Translations: [Pain in right hand]Onset: 67-25-1732BzozqwptKfhrw fractures (2 sources)Closed fracture of multiple left ribs; Translations: [Multiple fractures of ribs, left side, initial encounter for closed fracture]05-17-2024 EpisodicOther lower respiratory disease (2 sources)Rib pain; Translations: [Pleurodynia]68-23-9039KvsydlexMmuupvxdq (except that caused by tuberculosis or sexually transmitted disease) (3 sources)Pneumonia (except that caused by tuberculosis or sexually transmitted disease)Viral infection (2 sources)COVID-19 Results Test NameValueInterpretationReference RangeFacilityBasophils Auto (Bld) [#/Vol] Ordered By: Dorys Freeman on 20-88-6024Gmobcrjlu (Bld) [#/Vol]0.0 10 3/uL 0.0-0.1FCincinnati VA Medical CenterBasophils/100 WBC Auto (Bld)Ordered By: Dorys Freeman on 79-82-4525Oqposebim/100 WBC (Bld)0.4 %0.2-2.0[facility] HospitalEosinophils/100 WBC Auto (Bld)Ordered By: Dorys Freeman on 60-49-1444Klyuswjoigq/100 WBC (Bld)1.6 %0.9-7.0[facility] HospitalErythrocyte distribution width Auto (RBC) [Ratio]Ordered By: Dorys Freeman on 80-75-6030Ejxehhaamsd distribution width (RBC) [Ratio]13.7 % 11.0-15.0[facility] HospitalGlobulin Calc (S) [Mass/Vol]Ordered By: Dorys Freeman on 26-53-9314Xjctskan (S) [Mass/Vol]4.4 g/dLBarberton Citizens HospitalGlomerular filtration rate (GFR) estimation in non- AmericanOrdered By: Dorys Freeman on 81-17-6934GRC/1.73 sq M.predicted among non-blacks MDRD (S/P/Bld) [Vol rate/Area]55 mL/min/{1.73_m2}Low>=60 mL/min/1.73m 2FCincinnati VA Medical CenterHematocrit Auto (Bld) [Volume fraction]Ordered By: Dorys Freeman on 80-82-0438Lhrreafcdr (Bld) [Volume fraction]41.6 %Low42.0-54.0[facility] HospitalHemoglobin [Mass/volume] in BloodOrdered By: Dorys Freeman on 38-03-2571Rmzkfqptet (Bld) [Mass/Vol]14.1 g/dL14.0-18.0[facility] HospitalLaboratory - Chemistry and Chemistry - challengeOrdered By: Dorys Freeman on 03-29-2025 Albumin [Mass/Vol]3.6 g/dL3.4-5.0[facility] HospitalALP [Catalytic activity/Vol]76 U/A95-918VbrciycrdBarberton Citizens HospitalALT [Catalytic activity/Vol]25 U/U60-40BssugijqcBarberton Citizens HospitalAST [Catalytic activity/Vol]15 U/V79-33AxnoflreaBarberton Citizens HospitalBilirubin [Mass/Vol]0.6 mg/dL0.2-1.0[facility] HospitalCalcium [Mass/Vol]9.5 mg/dL 8.5-10.1FCincinnati VA Medical CenterChloride [Moles/Vol]99 mmol/L98-107 [facility] HospitalCO2 [Moles/Vol]28.9 mmol/L21.0-32.0[facility] HospitalCreatinine [Mass/Vol]1.28 mg/dL0.70-1.30[facility] HospitalGFR/1.73 sq M.predicted MDRD (S/P/Bld) [Vol rate/Area] mL/min/{1.73_m2}>=60 mL/min/1.73m 2FCincinnati VA Medical CenterGlucose [Mass/Vol]179 mg/qORafy74-423CckvjkvhlBarberton Citizens HospitalPotassium [Moles/Vol]4.1 mmol/L3.5-5.1FCincinnati VA Medical CenterProtein [Mass/Vol] 8.0 g/dL6.4-8.2FTrinity Health System Twin City Medical Centerodium [Moles/Vol]139 mmol/L 136-145Bar[facility] HospitalUrea nitrogen [Mass/Vol]14.0 mg/dL 7.0-18.0[facility] HospitalUrea nitrogen/Creatinine [Mass ratio] 10.9 mg/mgBarberton Citizens HospitalLaboratory - Hematology and Cell countsOrdered By: Dorys Freeman on 25-41-5227DEF (Bld) [Velocity]31 mm/hHigh <=20Bar[facility] HospitalImmature granulocytes/100 WBC (Bld)0.2 % 0.0-0.5FCincinnati VA Medical CenterLeukocytes [#/volume] corrected for nucleated erythrocytes in Blood by Automated counOrdered By: Dorys Freeman on 68-47-7233ZTM corrected for nucl RBC Auto (Bld) [#/Vol]9.2 10 3/uL4.0-11.0 [facility] HospitalLymphocytes Auto (Bld) [#/Vol]Ordered By: Dorys Freeman on 67-64-1100Spygzvurhgb (Bld) [#/Vol]1.7 10 3/uL1.2-3.8[facility] HospitalLymphocytes/100 WBC Auto (Bld)Ordered By: Dorys Freeman on 16-19-3098Lrtcbzcrlao/100 WBC (Bld)19.0 %Low20.5-60.0[facility] Auto (RBC) [Entitic mass]Ordered By: Dorys Freeman on 82-42-6422BSS (RBC) [Entitic mass]31.3 pg25.9-34.0[facility] HospitalMCHC Auto (RBC) [Mass/Vol]Ordered By: Dorys Freeman on 44-78-9371CXCP (RBC) [Mass/Vol]33.9 g/dL29.9-35.2FCincinnati VA Medical CenterMCV Auto (RBC) [Entitic vol]Ordered By: Dorys Freeman on 59-92-2225NYT (RBC) [Entitic vol]92.2 fL80.0-94.0[facility] HospitalMonocytes Auto (Bld) [#/Vol]Ordered By: Dorys Freeman on 29-10-2414Gloyuruad (Bld) [#/Vol]0.6 10 3/uL0.3-0.8[facility] HospitalMonocytes/100 WBC Auto (Bld)Ordered By: Doyrs Freeman on 74-49-9955Zaqojwaqq/100 WBC (Bld)6.4 %1.7-12.0[facility] HospitalNeutrophils Auto (Bld) [#/Vol]Ordered By: Dorys Freeman on 57-08-6976Objumwkichn (Bld) [#/Vol]6.6 10 3/uLHigh1.4-6.5FCincinnati VA Medical CenterNeutrophils/100 WBC Auto (Bld)Ordered By: Dorys Freeman on 18-62-2025Gksujiptslc/100 WBC (Bld)72.4 %43.0-75.0[facility] HospitalNo Panel InformationOrdered By: Dorys Freeman on 31-54-0791Yqdqeybzaia # (Auto)0.2 10 3/uL0.0-0.7FCincinnati VA Medical CenterImmature Granulocyte # (Auto)0.02 10 3/uL0.00-0.03[facility] HospitalPlatelet mean volume Auto (Bld) [Entitic vol]Ordered By: Dorys Freeman on 60-05-2026Mdiywktb mean volume (Bld) [Entitic vol]9.8 fL9.5-13.5FCincinnati VA Medical Center Platelets Auto (Bld) [#/Vol]Ordered By: Dorys Freeman on 27-70-6951Dfbxlcxvw (Bld) [#/Vol]273 10 3/fV637-593FnfyelysbBarberton Citizens HospitalRBC Auto (Bld) [#/Vol]Ordered By: Dorys Freeman on 83-87-6875SBV (Bld) [#/Vol]4.51 10 6/uLLow 4.70-6.10[facility] Systemerum or plasma albumin/globulin mass ratioOrdered By: Dorys Freeman on 92-30-4665Tygxpps/Globulin [Mass ratio]0.8 {ratio}[facility] Health Systemerum or plasma anion gap determination Ordered By: Dorys Freeman on 79-54-3074Bgzps gap [Moles/Vol]15.2 mmol/L [facility] HospitalAlanine aminotransferase [Enzymatic activity/volume] in Serum or PlasmaOrdered By: Carlos Guzmán on 15-39-2236WUY [Catalytic activity/Vol]Alanine aminotransferase [Enzymatic activity/volume] in Serum or Plasma7-[facility] HospitalAlbumin [Mass/volume] in Serum or Plasma by Bromocresol green (BCG) dye binding methoOrdered By: Carlos Guzmán on 42-60-3889Ktwxyzp BCG dye [Mass/Vol]Albumin [Mass/volume] in Serum or Plasma by Bromocresol green (BCG) dye binding metho3.5-5.7FCincinnati VA Medical CenterAlkaline phosphatase [Enzymatic activity/volume] in Serum or PlasmaOrdered By: Carlos Guzmán on 04-17-4663AWM [Catalytic activity/Vol] Alkaline phosphatase [Enzymatic activity/volume] in Serum or Hscdwc74-822 [facility] HospitalAspartate aminotransferase [Enzymatic activity/volume] in Serum or PlasmaOrdered By: Carlos Guzmán on 42-57-1926NWU [Catalytic activity/Vol]Aspartate aminotransferase [Enzymatic activity/volume] in Serum or OkqipnGyr91-20XzhekecflBarberton Citizens HospitalBasophils Auto (Bld) [#/Vol]Ordered By: Carlos Guzmán on 70-17-4040Sllrfpfcn (Bld) [#/Vol]Automated basophil count0.0-0.2FCincinnati VA Medical CenterBasophils/100 WBC Auto (Bld)Ordered By: Carlos Guzmán on 12-82-3810Lbaqclaic/100 WBC (Bld)Automated basophil %.[facility] HospitalBilirubin.direct [Mass/volume] in Serum or PlasmaOrdered By: Carlos Guzmán on 26-52-6921Tudiwsrlr.direct [Mass/Vol]Bilirubin.direct [Mass/volume] in Serum or Plasma0.03-0.18FCincinnati VA Medical CenterBilirubin.total [Mass/volume] in Serum or PlasmaOrdered By: Carlos Guzmán on 58-91-5897Twktszpxr [Mass/Vol]Bilirubin.total [Mass/volume] in Serum or Plasma0.3-1.0[facility] HospitalComplete Blood Count Auto Diffon 05-44-7028Psrxtnygi (Bld) [#/Vol]0.1 10*3/uLNormal 0.0-0.2The [facility] Physician GroupComment on above:Performed By: #### HEPATIC, CBC, ESR, CREAT #### [facility] [address] [place] [address] USABasophils/100 WBC (Bld)0.8 %Normal.The [facility] Physician GroupComment on above:Performed By: #### HEPATIC, CBC, ESR, CREAT #### [place] [address] USAEosinophils (Bld) [#/Vol]0.2 10*3/uLNormal0.0-0.45The [facility] Physician GroupComment on above:Performed By: #### HEPATIC, CBC, ESR, CREAT #### [place] [address] USAEosinophils/100 WBC (Bld)2.0 %Normal.[facility] Physician GroupComment on above:Performed By: #### HEPATIC, CBC, ESR, CREAT #### [place] [address] USAErythrocyte distribution width (RBC) [Ratio]14.8 %Normal 12.0-14.8The [facility] Physician GroupComment on above:Performed By: #### HEPATIC, CBC, ESR, CREAT #### [place] [address] USAHematocrit (Bld) [Volume fraction]41.0 %Duethu30.8-50.0The [facility] Physician GroupComment on above:Performed By: #### HEPATIC, CBC, ESR, CREAT #### [place] [address] USAHemoglobin (Bld) [Mass/Vol]14.2 g/aCNpvvrg00.0-17.0The [facility] Physician GroupComment on above:Performed By: #### HEPATIC, CBC, ESR, CREAT #### [place] [address] USALymphocytes (Bld) [#/Vol]2.1 10*3/uLNormal1.00-4.8The [facility] Physician GroupComment on above:Performed By: #### HEPATIC, CBC, ESR, CREAT #### [place] [address] USALymphocytes/100 WBC (Bld)24.7 %Normal.[facility] Physician GroupComment on above:Performed By: #### HEPATIC, CBC, ESR, CREAT #### [address]H (RBC) [Entitic mass]31.6 anBqyutg17.5-35.2The [facility] Physician GroupComment on above:Performed By: #### HEPATIC, CBC, ESR, CREAT #### [address]V (RBC) [Entitic vol]91.0 vDVpdgjp93.5-101The [facility] Physician GroupComment on above:Performed By: #### HEPATIC, CBC, ESR, CREAT #### [place] [address] USAMean Corpuscular HGB Conc34.7 g/bXOmtojs75.5-35.6[facility] Physician GroupComment on above:Performed By: #### HEPATIC, CBC, ESR, CREAT #### [place] [address] USAMonocytes (Bld) [#/Vol]0.7 10*3/uLNormal0.0-0.8The [facility] Physician GroupComment on above:Performed By: #### HEPATIC, CBC, ESR, CREAT #### [place] [address] USAMonocytes/100 WBC (Bld)8.6 %Normal.The [facility] Physician GroupComment on above:Performed By: #### HEPATIC, CBC, ESR, CREAT #### [place] [address] USANeutrophils (Bld) [#/Vol]5.5 10*3/uLNormal1.8-7.7The [facility] Physician GroupComment on above:Performed By: #### HEPATIC, CBC, ESR, CREAT #### [place] [address] USANeutrophils/100 WBC (Bld)63.9 %Normal.The [facility] Physician GroupComment on above:Performed By: #### HEPATIC, CBC, ESR, CREAT #### [place] [address] USANRBC%0.0 /100{WBC}Normal0-0.5The [facility]ician Group Comment on above:Performed By: #### HEPATIC, CBC, ESR, CREAT #### [place] [address] USAPlatelet mean volume (Bld) [Entitic vol]8.4 fLNormal 6.6-10.1The [facility] Physician GroupComment on above:Performed By: #### HEPATIC, CBC, ESR, CREAT #### [place] [address] USAPlatelets (Bld) [#/Vol]264 10*3/wLZhqjtq236-026Sqd [facility] Physician GroupComment on above:Performed By: #### HEPATIC, CBC, ESR, CREAT #### [place] [address] USARBC (Bld) [#/Vol]4.50 10*6/uLNormal3.90-5.60The [facility] Physician GroupComment on above:Performed By: #### HEPATIC, CBC, ESR, CREAT #### [place] [address] USAWBC (Bld) [#/Vol]8.6 10*3/uLNormal4.1-10.5The [facility] Physician GroupComment on above:Performed By: #### HEPATIC, CBC, ESR, CREAT #### [place] [address] USACreatinineon 85-92-1838Upxshhyanw [Mass/Vol]0.81 mg/dL Normal0.70-1.30The [facility] Physician GroupComment on above:Performed By: #### HEPATIC, CBC, ESR, CREAT #### [place] [address] USAGFR/1.73 sq M.predicted MDRD (S/P/Bld) [Vol rate/Area] mL/min/{1.73_m2}NormalThe [facility] Physician GroupComment on above:Result Comment: PERFORMED BY: [address] [place] [id number] PATHOLOGIST BAG SORTER KATHLEEN LIU M.D.Performed By: #### HEPATIC, CBC, ESR, CREAT #### [place] [id number] USACreatinine [Mass/volume] in Serum or PlasmaOrdered By: Carlos Guzmán on 08-93-4141Qfcdzowkqp [Mass/Vol]Creatinine [Mass/volume] in Serum or Plasma0.70-1.30[facility] HospitalEosinophils Auto (Bld) [#/Vol]Ordered By: Carlos Guzmán on 51-88-4423Hjlteqxwsvz (Bld) [#/Vol] Automated eosinophil count0.0-0.45[facility] Eosinophils/100 WBC Auto (Bld)Ordered By: Carlos Guzmán on 11-17-2024 Eosinophils/100 WBC (Bld)Automated eosinophil %.[facility] HospitalErythrocyte Sedimentation Rateon 07-56-1774GKM (Bld) [Velocity]20 mm/hHigh 0-The [facility] Physician GroupComment on above:Result Comment: PERFORMED BY: [place] [address] PATHOLOGIST BAG SORTER KATHLEEN LIU M.D.Performed By: #### HEPATIC, CBC, ESR, CREAT #### [facility] [address] [place] [address] USAErythrocyte distribution width Auto (RBC) [Ratio]Ordered By: Carlos Guzmán on 97-28-1520Rqlajtxkppr distribution width (RBC) [Ratio] Erythrocyte distribution width [Ratio] by Automated count12.0-14.8[facility] HospitalErythrocyte sedimentation rate by Photometric method Ordered By: Carlos Guzmán on 11-03-1563MOV Photometric method (Bld) [Velocity] Erythrocyte sedimentation rate by Photometric methodThomas Memorial Hospital0[facility] HospitalGlobulin Calc (S) [Mass/Vol]Ordered By: Carlos Guzmán on 53-80-2348Tiwcoqtp (S) [Mass/Vol]Serum globulin measurement by calculation (mass/volume)[facility] HospitalHematocrit Auto (Bld) [Volume fraction]Ordered By: Carlos Guzmán on 46-62-2075Eofjkbnjfy (Bld) [Volume fraction]Hematocrit [Volume Fraction] of Blood by Automated count38.8-50.0 [facility] HospitalHemoglobin [Mass/volume] in BloodOrdered By: Carlos Guzmán on 10-25-2562Tiboomsmtb (Bld) [Mass/Vol]Hemoglobin [Mass/volume] in Blood13.0-17.0[facility] HospitalHepatic Panelon 11-17-2024 Albumin [Mass/Vol]4.2 g/dLNormal3.5-5.7The [facility] Physician GroupComment on above:Performed By: #### HEPATIC, CBC, ESR, CREAT #### [facility] [address] [place] [address] USAAlbumin/Globulin [Mass ratio]1.3 {ratio}NormalThe [facility] Physician GroupComment on above:Performed By: #### HEPATIC, CBC, ESR, CREAT #### [facility] [address] [place] [phone] USAALP [Catalytic activity/Vol]62 U/RWnmiyo25-848Fay [facility] Physician GroupComment on above:Performed By: #### HEPATIC, CBC, ESR, CREAT #### [facility] [address] [place] [phone] USAALT [Catalytic activity/Vol]10 U/LNormal7-52The [facility] Physician GroupComment on above:Performed By: #### HEPATIC, CBC, ESR, CREAT #### [facility] [address] [place] [phone] USAAST [Catalytic activity/Vol]11 U/SSmc11-02Tbb [facility] Physician GroupComment on above:Performed By: #### HEPATIC, CBC, ESR, CREAT #### [facility] [address] [place] [phone] USABilirubin [Mass/Vol]0.7 mg/dLNormal0.3-1.0The [facility] Physician GroupComment on above:Performed By: #### HEPATIC, CBC, ESR, CREAT #### [facility] [address] [place] [address] USABilirubin,Indirect0.6 mg/dLNormHCA Florida [place] Emergency Physician GroupComment on above:Performed By: #### HEPATIC, CBC, ESR, CREAT #### [facility] [address] [place] [address] USABilirubin.indirect [Mass/Vol]0.10 mg/dLNormal0.03-0.18The [facility] Physician GroupComment on above:Performed By: #### HEPATIC, CBC, ESR, CREAT #### [facility] [address] [place] [address] USAGlobulin (S) [Mass/Vol]3.3 g/dLNoNovant Health [facility] Physician Regency MeridianComment on above:Performed By: #### HEPATIC, CBC, ESR, CREAT #### [facility] [address] [place] [address] USAProtein [Mass/Vol]7.5 g/dLNormal6.4-8.9The [facility] Physician GroupComment on above:Performed By: #### HEPATIC, CBC, ESR, CREAT #### [facility] [address] [place] [address] USALeukocytes [#/volume] corrected for nucleated erythrocytes in Blood by Automated counOrdered By: Carlos Guzmán on 90-94-0740YDJ corrected for nucl RBC Auto (Bld) [#/Vol]Leukocytes [#/volume] corrected for nucleated erythrocytes in Blood by Automated coun4.1-10.5FCincinnati VA Medical Center Lymphocytes Auto (Bld) [#/Vol]Ordered By: Carlos Guzmán on 11-17-2024 Lymphocytes (Bld) [#/Vol]Lymphocytes [#/volume] in Blood by Automated count 1.00-4.8[facility] HospitalLymphocytes/100 WBC Auto (Bld)Ordered By: Carlos Guzmán on 18-29-6717Ppyvrrshaij/100 WBC (Bld)Lymphocytes/100 leukocytes in Blood by Automated count.[facility] Auto (RBC) [Entitic mass]Ordered By: Carlos Guzmán on 39-28-2220CKF (RBC) [Entitic mass]MCH [Entitic mass] by Automated count27.5-35.2FCincinnati VA Medical CenterMCHC Auto (RBC) [Mass/Vol]Ordered By: Carlos Guzmán on 90-27-4272EFYO (RBC) [Mass/Vol]MCHC [Mass/volume] by Automated count32.5-35.6FCincinnati VA Medical CenterMCV Auto (RBC) [Entitic vol]Ordered By: Carlos Guzmán on 96-64-1302PQC (RBC) [Entitic vol]MCV [Entitic volume] by Automated count83.5-101 [facility] HospitalMonocytes Auto (Bld) [#/Vol]Ordered By: Carlos Guzmán on 47-66-6861Cgafhzymb (Bld) [#/Vol]Automated blood monocyte count 0.0-0.8[facility] HospitalMonocytes/100 WBC Auto (Bld)Ordered By: Carlos Guzmán on 41-35-4810Mrtttufgx/100 WBC (Bld)Automated monocyte %. [facility] HospitalNeutrophils Auto (Bld) [#/Vol]Ordered By: Carlos Guzmán on 19-69-5603Jfvqticbour (Bld) [#/Vol]Neutrophils [#/volume] in Blood by Automated count1.8-7.7FCincinnati VA Medical CenterNeutrophils/100 WBC Auto (Bld)Ordered By: Carlos Guzmán on 16-06-7059Owsxaxzwfll/100 WBC (Bld) Automated neutrophil %.[facility] HospitalNo Panel Information Ordered By: Carlos Guzmán on 98-46-5192Xmtzcrjdz GFR (CKD-EPI)> 60.0 mL/Min [facility] HospitalPharmacy Creatinine Clearance (ChemN/AFCincinnati VA Medical CenterNucleated erythrocytes [Presence] in Blood by Automated countOrdered By: Carlos Guzmán on 62-87-9153Wekfkvaay RBC Auto Ql (Bld) Nucleated erythrocytes [Presence] in Blood by Automated count0-0.5FCincinnati VA Medical CenterPlatelet mean volume Auto (Bld) [Entitic vol]Ordered By: Carlos Guzmán on 81-10-6082Vuniqebm mean volume (Bld) [Entitic vol]Platelet mean volume [Entitic volume] in Blood by Automated count6.6-10.1FCincinnati VA Medical CenterPlatelets Auto (Bld) [#/Vol]Ordered By: Carlos Guzmán on 43-20-6853Uqqudlpif (Bld) [#/Vol]Platelets [#/volume] in Blood by Automated -169AmtqdabdvBarberton Citizens HospitalProtein [Mass/volume] in Serum or PlasmaOrdered By: Carlos Guzmán on 23-75-0591Wpczhym [Mass/Vol]Protein [Mass/volume] in Serum or Plasma6.4-8.9[facility] HospitalRBC Auto (Bld) [#/Vol]Ordered By: Carlos Guzmán on 94-30-0463UXM (Bld) [#/Vol] Erythrocytes [#/volume] in Blood by Automated count3.90-5.60[facility] Health Systemerum or plasma albumin/globulin mass ratioOrdered By: Carlos Guzmán on 25-69-5895Uncxgbo/Globulin [Mass ratio]Serum or plasma albumin/globulin mass ratioOhio State Health Systemerum or plasma non- glucuronidated bilirubin measurement (mass/volume)Ordered By: Carlos Guzmán on 70-32-1424Xcxifunda.indirect [Mass/Vol]Serum or plasma non-glucuronidated bilirubin measurement (mass/volume)[facility] HospitalWBC Auto (Bld) [#/Vol]Ordered By: Carlos Guzmán on 72-03-2190NUE (Bld) [#/Vol]Leukocytes [#/volume] in Blood by Automated count4.1-10.5FCincinnati VA Medical Center Basophils Auto (Bld) [#/Vol]on 69-47-9839Tyjsrjukk (Bld) [#/Vol]Automated basophil count0.0-0.1FCincinnati VA Medical CenterBasophils/100 WBC Auto (Bld)on 00-51-2579Qfxwfmjdx/100 WBC (Bld)Automated basophil %0.2-2.0[facility] HospitalEosinophils/100 WBC Auto (Bld)on 09-28-2024 Eosinophils/100 WBC (Bld)Automated eosinophil %0.9-7.0[facility] HospitalErythrocyte distribution width Auto (RBC) [Ratio]on 80-33-1803Dhvynvzehek distribution width (RBC) [Ratio]Erythrocyte distribution width [Ratio] by Automated count11.0-15.0[facility] HospitalEstimated glomerular filtration rate (GFR) non- Americanon 50-09-6271NNO/1.73 sq M.predicted among non-blacks MDRD (S/P/Bld) [Vol rate/Area]Estimated glomerular filtration rate (GFR) non->=60 mL/min/1.73m 2FCincinnati VA Medical CenterGlobulin Calc (S) [Mass/Vol]on 95-28-8267Vgpnfkxg (S) [Mass/Vol]Serum globulin measurement by calculation (mass/volume)[facility] HospitalGlucose mean value [Mass/volume] in Blood Estimated from glycated hemoglobinon 00-47-8005Gbxievv glucose Estimated from glycated hemoglobin (Bld) [Mass/Vol]Glucose mean value [Mass/volume] in Blood Estimated from glycated hemoglobinBarberton Citizens HospitalHematocrit Auto (Bld) [Volume fraction]on 23-30-0906Mvgvylgzpp (Bld) [Volume fraction]Hematocrit [Volume Fraction] of Blood by Automated count42.0-54.0[facility] Hemoglobin A1c percentageon 69-42-2234OqS6n (Bld) [Mass fraction]Hemoglobin A1c percentageHigh4.5-6.2FCincinnati VA Medical CenterComment on above:ADA RECOMMENDED LIMIT 4.0 - 6.0ADA THERAPEUTIC TARGET < 7.0ACTION SUGGESTED> 7.0 Hemoglobin [Mass/volume] in Bloodon 86-23-2580Fywmwevclo (Bld) [Mass/Vol] Hemoglobin [Mass/volume] in Blood14.0-18.0[facility] Laboratory - Chemistry and Chemistry - challengeon 54-11-0236Gsapcme [Mass/Vol] 3.6 g/dL3.4-5.0[facility] HospitalALP [Catalytic activity/Vol]72 U/K85-585ZtsckhraeBarberton Citizens HospitalALT [Catalytic activity/Vol]17 U/L 16-63[facility] HospitalAST [Catalytic activity/Vol]10 U/LCwm57-46 [facility] HospitalBilirubin [Mass/Vol]0.5 mg/dL0.2-1.0[facility] HospitalBilirubin.direct [Mass/Vol]0.1 mg/dL0.0-0.2FCincinnati VA Medical CenterCreatinine [Mass/Vol]1.12 mg/dL0.70-1.30[facility] HospitalGFR/1.73 sq M.predicted MDRD (S/P/Bld) [Vol rate/Area] mL/min/{1.73_m2}>=60 mL/min/1.73m 2FCincinnati VA Medical CenterProtein [Mass/Vol]7.6 g/dL6.4-8.2FCincinnati VA Medical CenterLaboratory - Hematology and Cell countson 46-01-5223VUU (Bld) [Velocity]22 mm/hHigh<=20 [facility] HospitalImmature granulocytes/100 WBC (Bld)0.2 %0.0-0.5 [facility] HospitalLeukocytes [#/volume] corrected for nucleated erythrocytes in Blood by Automated counon 01-69-3489KDS corrected for nucl RBC Auto (Bld) [#/Vol]Leukocytes [#/volume] corrected for nucleated erythrocytes in Blood by Automated coun4.0-11.0[facility] HospitalLymphocytes Auto (Bld) [#/Vol]on 33-53-9793Uadujgpzfcx (Bld) [#/Vol]Lymphocytes [#/volume] in Blood by Automated count1.2-3.8[facility] HospitalLymphocytes/100 WBC Auto (Bld)on 76-50-5790Ktdifmhrstb/100 WBC (Bld)Lymphocytes/100 leukocytes in Blood by Automated padluJyd36.5-60.0[facility] HospitalMCH Auto (RBC) [Entitic mass]on 56-51-4931VME (RBC) [Entitic mass]MCH [Entitic mass] by Automated count25.9-34.0[facility] HospitalMCHC Auto (RBC) [Mass/Vol]on 08-90-1605KKWS (RBC) [Mass/Vol]MCHC [Mass/volume] by Automated count29.9-35.2FCincinnati VA Medical CenterMCV Auto (RBC) [Entitic vol]on 36-21-3016BPB (RBC) [Entitic vol]MCV [Entitic volume] by Automated count 80.0-94.0[facility] HospitalMonocytes Auto (Bld) [#/Vol]on 16-80-5269Qjbwschte (Bld) [#/Vol]Automated blood monocyte count0.3-0.8[facility] HospitalMonocytes/100 WBC Auto (Bld)on 06-22-0929Ppyzazrkq/100 WBC (Bld)Automated monocyte %1.7-12.0[facility] Neutrophils Auto (Bld) [#/Vol]on 71-41-0899Cuyqyicgtoa (Bld) [#/Vol]Neutrophils [#/volume] in Blood by Automated count1.4-6.5FCincinnati VA Medical Center Neutrophils/100 WBC Auto (Bld)on 92-13-9275Vuqsyadumwf/100 WBC (Bld)Automated neutrophil %43.0-75.0[facility] HospitalNo Panel Informationon 70-40-6709Hrvuigxqnrj # (Auto)0.2 10 3/uL0.0-0.7FCincinnati VA Medical CenterImmature Granulocyte # (Auto)0.02 10 3/uL0.00-0.03[facility] HospitalPlatelet mean volume Auto (Bld) [Entitic vol]on 49-65-0699Jhxvfsco mean volume (Bld) [Entitic vol]Platelet mean volume [Entitic volume] in Blood by Automated countLow9.5-13.5FCincinnati VA Medical CenterPlatelets Auto (Bld) [#/Vol]on 37-10-6306Kfjbjeixv (Bld) [#/Vol]Platelets [#/volume] in Blood by Automated duyma037-514LbfnfvgeuBarberton Citizens HospitalRBC Auto (Bld) [#/Vol]on 01-15-8134YOK (Bld) [#/Vol]Erythrocytes [#/volume] in Blood by Automated count Low4.70-6.10[facility] State Health Systemerum or plasma albumin/globulin mass ratioon 13-71-0234Mddbsyi/Globulin [Mass ratio]Serum or plasma albumin/globulin mass ratioBarberton Citizens HospitalBasophils Auto (Bld) [#/Vol]on 92-53-8616Sjxhyqhbd (Bld) [#/Vol]Automated basophil count0.0-0.1 [facility] HospitalBasophils/100 WBC Auto (Bld)on 08-17-2024 Basophils/100 WBC (Bld)Automated basophil %0.2-2.0[facility] HospitalEosinophils/100 WBC Auto (Bld)on 47-74-3878Wdmeatnrspe/100 WBC (Bld) Automated eosinophil %0.9-7.0[facility] HospitalErythrocyte distribution width Auto (RBC) [Ratio]on 29-60-7640Xeibeoahxnt distribution width (RBC) [Ratio]Erythrocyte distribution width [Ratio] by Automated count11.0-15.0 [facility] HospitalEstimated glomerular filtration rate (GFR) non- Americanon 24-53-4144OMA/1.73 sq M.predicted among non-blacks MDRD (S/P/Bld) [Vol rate/Area]Estimated glomerular filtration rate (GFR) non->=60 mL/min/1.73m 2FCincinnati VA Medical CenterHematocrit Auto (Bld) [Volume fraction]on 44-65-9077Cgwhpkfvke (Bld) [Volume fraction]Hematocrit [Volume Fraction] of Blood by Automated afmecLwj03.0-54.0[facility] HospitalHemoglobin [Mass/volume] in Bloodon 71-39-7170Oygpkwtxli (Bld) [Mass/Vol]Hemoglobin [Mass/volume] in Blood14.0-18.0[facility] HospitalLaboratory - Chemistry and Chemistry - challengeon 52-99-6781Exionbv [Mass/Vol]3.4 g/dL3.4-5.0[facility] HospitalALP [Catalytic activity/Vol]72 U/Z22-494QfdeedogeBarberton Citizens HospitalALT [Catalytic activity/Vol]16 U/O72-46NieuhzircBarberton Citizens HospitalAST [Catalytic activity/Vol]11 U/HAtz69-45OnyjdlnenBarberton Citizens HospitalBilirubin [Mass/Vol] 0.6 mg/dL0.2-1.0[facility] HospitalCreatinine [Mass/Vol]1.17 mg/dL 0.70-1.30[facility] HospitalGFR/1.73 sq M.predicted MDRD (S/P/Bld) [Vol rate/Area]mL/min/{1.73_m2}>=60 mL/min/1.73m 2FCincinnati VA Medical CenterLaboratory - Hematology and Cell countson 78-49-6793ILI (Bld) [Velocity]21 mm/hHigh<=20[facility] HospitalImmature granulocytes/100 WBC (Bld)0.2 %0.0-0.5FCincinnati VA Medical CenterLeukocytes [#/volume] corrected for nucleated erythrocytes in Blood by Automated counon 86-66-5975JKZ corrected for nucl RBC Auto (Bld) [#/Vol]Leukocytes [#/volume] corrected for nucleated erythrocytes in Blood by Automated coun4.0-11.0[facility] HospitalLymphocytes Auto (Bld) [#/Vol]on 06-48-6328Ilqozbooaan (Bld) [#/Vol]Lymphocytes [#/volume] in Blood by Automated count1.2-3.8[facility] HospitalLymphocytes/100 WBC Auto (Bld)on 08-17-2024 Lymphocytes/100 WBC (Bld)Lymphocytes/100 leukocytes in Blood by Automated count 20.5-60.0[facility]ome[facility] HospitalH Auto (RBC) [Entitic mass]on 02-34-8905FNR (RBC) [Entitic mass]MCH [Entitic mass] by Automated count25.9-34.0 [facility] HospitalMCHC Auto (RBC) [Mass/Vol]on 06-77-2362ONAI (RBC) [Mass/Vol]MCHC [Mass/volume] by Automated count29.9-35.2FCincinnati VA Medical CenterMCV Auto (RBC) [Entitic vol]on 82-66-2063JDY (RBC) [Entitic vol] MCV [Entitic volume] by Automated count80.0-94.0[facility] HospitalMonocytes Auto (Bld) [#/Vol]on 61-37-6377Yaocbboto (Bld) [#/Vol]Automated blood monocyte count0.3-0.8[facility] HospitalMonocytes/100 WBC Auto (Bld)on 40-22-8205Igenasqjg/100 WBC (Bld)Automated monocyte %1.7-12.0 [facility] HospitalNeutrophils Auto (Bld) [#/Vol]on 08-17-2024 Neutrophils (Bld) [#/Vol]Neutrophils [#/volume] in Blood by Automated countHigh 1.4-6.5FCincinnati VA Medical CenterNeutrophils/100 WBC Auto (Bld)on 87-91-7606Vqmcaanpryx/100 WBC (Bld)Automated neutrophil %43.0-75.0[facility] HospitalNo Panel Informationon 23-45-3311Iumxwtofihe # (Auto)0.2 10 3/uL0.0-0.7FCincinnati VA Medical CenterImmature Granulocyte # (Auto)0.02 10 3/uL0.00-0.03[facility] HospitalPlatelet mean volume Auto (Bld) [Entitic vol]on 04-92-3350Gwwhlmom mean volume (Bld) [Entitic vol]Platelet mean volume [Entitic volume] in Blood by Automated count9.5-13.5FCincinnati VA Medical CenterPlatelets Auto (Bld) [#/Vol]on 18-77-3259Tmwgdzzrx (Bld) [#/Vol]Platelets [#/volume] in Blood by Automated xojcc180-358MvprevxdeBarberton Citizens HospitalRBC Auto (Bld) [#/Vol]on 68-84-9144CGM (Bld) [#/Vol]Erythrocytes [#/volume] in Blood by Automated countLow4.70-6.10[facility] HospitalBasophils Auto (Bld) [#/Vol]on 45-51-2944Khmuruwkf (Bld) [#/Vol]Automated basophil count0.0-0.1FCincinnati VA Medical CenterBasophils/100 WBC Auto (Bld)on 15-31-5351Dvbygssre/100 WBC (Bld)Automated basophil %0.2-2.0[facility] HospitalEosinophils/100 WBC Auto (Bld)on 08-03-2024 Eosinophils/100 WBC (Bld)Automated eosinophil %0.9-7.0[facility] HospitalErythrocyte distribution width Auto (RBC) [Ratio]on 23-56-2154Bvwxwogakmu distribution width (RBC) [Ratio]Erythrocyte distribution width [Ratio] by Automated count11.0-15.0[facility] HospitalHematocrit Auto (Bld) [Volume fraction]on 08-58-1955Iijrjtizqs (Bld) [Volume fraction]Hematocrit [Volume Fraction] of Blood by Automated xfflfLcn04.0-54.0[facility] HospitalHemoglobin [Mass/volume] in Bloodon 58-76-2478Vwtunddscc (Bld) [Mass/Vol]Hemoglobin [Mass/volume] in NjensOds05.0-18.0[facility] HospitalLaboratory - Hematology and Cell countson 72-08-2725DLV (Bld) [Velocity]22 mm/hHigh<=20[facility] HospitalImmature granulocytes/100 WBC (Bld)0.3 %0.0-0.5FCincinnati VA Medical Center Leukocytes [#/volume] corrected for nucleated erythrocytes in Blood by Automated counon 28-58-7849MRZ corrected for nucl RBC Auto (Bld) [#/Vol]Leukocytes [#/volume] corrected for nucleated erythrocytes in Blood by Automated coun 4.0-11.0[facility] HospitalLymphocytes Auto (Bld) [#/Vol]on 53-22-6543Rmdmsmggnag (Bld) [#/Vol]Lymphocytes [#/volume] in Blood by Automated count1.2-3.8[facility] HospitalLymphocytes/100 WBC Auto (Bld)on 92-30-7968Quwzdfkscbx/100 WBC (Bld)Lymphocytes/100 leukocytes in Blood by Automated count20.5-60.0[facility] HospitalMCH Auto (RBC) [Entitic mass]on 47-82-0617DIR (RBC) [Entitic mass]MCH [Entitic mass] by Automated count 25.9-34.0[facility] HospitalMCHC Auto (RBC) [Mass/Vol]on 14-85-5473YXSS (RBC) [Mass/Vol]MCHC [Mass/volume] by Automated count29.9-35.2 [facility] HospitalMCV Auto (RBC) [Entitic vol]on 30-03-3366DLG (RBC) [Entitic vol]MCV [Entitic volume] by Automated count80.0-94.0[facility] HospitalMonocytes Auto (Bld) [#/Vol]on 99-85-9051Zwxdbwkyc (Bld) [#/Vol]Automated blood monocyte count0.3-0.8[facility] Monocytes/100 WBC Auto (Bld)on 77-34-2920Rtuxkfzkq/100 WBC (Bld)Automated monocyte %1.7-12.0[facility] HospitalNeutrophils Auto (Bld) [#/Vol]on 26-88-3172Wvsesxpjhym (Bld) [#/Vol]Neutrophils [#/volume] in Blood by Automated count1.4-6.5FCincinnati VA Medical CenterNeutrophils/100 WBC Auto (Bld)on 91-92-2941Xoyuurfzfak/100 WBC (Bld)Automated neutrophil %43.0-75.0 [facility] HospitalNo Panel Informationon 65-17-3639Pmvygfbhxuv # (Auto)0.1 10 3/uL0.0-0.7FCincinnati VA Medical CenterImmature Granulocyte # (Auto)0.03 10 3/uL0.00-0.03[facility] HospitalPlatelet mean volume Auto (Bld) [Entitic vol]on 42-15-7984Vmdioljd mean volume (Bld) [Entitic vol] Platelet mean volume [Entitic volume] in Blood by Automated count9.5-13.5 [facility] HospitalPlatelets Auto (Bld) [#/Vol]on 08-03-2024 Platelets (Bld) [#/Vol]Platelets [#/volume] in Blood by Automated yglsn214-962 [facility] HospitalRBC Auto (Bld) [#/Vol]on 90-90-9706OQK (Bld) [#/Vol]Erythrocytes [#/volume] in Blood by Automated countLow4.70-6.10[facility] HospitalBasophils Auto (Bld) [#/Vol]on 15-50-9113Pfwobgxyo (Bld) [#/Vol]Automated basophil count0.0-0.1FCincinnati VA Medical Center Basophils/100 WBC Auto (Bld)on 85-98-7075Qtwgvgikq/100 WBC (Bld)Automated basophil %0.2-2.0[facility] HospitalEosinophils/100 WBC Auto (Bld) on 49-97-4698Fvqdwmufsxo/100 WBC (Bld)Automated eosinophil %0.9-7.0[facility] HospitalErythrocyte distribution width Auto (RBC) [Ratio]on 32-00-4921Thuroulkjnl distribution width (RBC) [Ratio]Erythrocyte distribution width [Ratio] by Automated count11.0-15.0[facility] Hematocrit Auto (Bld) [Volume fraction]on 73-32-2377Joguddqmdd (Bld) [Volume fraction]Hematocrit [Volume Fraction] of Blood by Automated zgumeWjq78.0-54.0 [facility] HospitalHemoglobin [Mass/volume] in Bloodon 07-15-2024 Hemoglobin (Bld) [Mass/Vol]Hemoglobin [Mass/volume] in Blood14.0-18.0[facility] Hospital[facility] Cell countson 07-15-2024 Immature granulocytes/100 WBC (Bld)0.2 %0.0-0.5[facility] [#/volume] corrected for nucleated erythrocytes in Blood by Automated counon 90-04-0506ISH corrected for nucl RBC Auto (Bld) [#/Vol]Leukocytes [#/volume] corrected for nucleated erythrocytes in Blood by Automated coun 4.0-11.0[facility] HospitalLymphocytes Auto (Bld) [#/Vol]on 56-47-3568Atghoyqscvm (Bld) [#/Vol]Lymphocytes [#/volume] in Blood by Automated count1.2-3.8[facility] HospitalLymph[facility]/100 WBC Auto (Bld)on 14-50-4914Ropholdsztv/100 WBC (Bld)Lymphocytes/100 leukocytes in Blood by Automated count20.5-60.0[facility] Auto (RBC) [Entitic mass]on 21-87-7046PBL (RBC) [Entitic mass]MCH [Entitic mass] by Automated count 25.9-34.0[facility]MCH[facility] Auto (RBC) [Mass/Vol]on [id number] (RBC) [Mass/Vol]MCHC [Mass/volume] by Automated countHigh 29.9-35.2FCincinnati VA Medical CenterMCV Auto (RBC) [Entitic vol]on 63-61-0459FRS (RBC) [Entitic vol]MCV [Entitic volume] by Automated count 80.0-94.0[facility] HospitalMonocytes Auto (Bld) [#/Vol]on 37-01-8752Mwzaxnpiw (Bld) [#/Vol]Automated blood monocyte countHigh0.3-0.8 [facility] HospitalMonocytes/100 WBC Auto (Bld)on 07-15-2024 Monocytes/100 WBC (Bld)Automated monocyte %1.7-12.0[facility] HospitalNeutrophils Auto (Bld) [#/Vol]on 33-27-5828Zjgbysnuwga (Bld) [#/Vol] Neutrophils [#/volume] in Blood by Automated count1.4-6.5FCincinnati VA Medical CenterNeutrophils/100 WBC Auto (Bld)on 99-10-3392Cgujpqzmnio/100 WBC (Bld)Automated neutrophil %43.0-75.0[facility] HospitalNo Panel Informationon 16-25-6492Aqudqdltixf # (Auto)0.2 10 3/uL0.0-0.7FCincinnati VA Medical CenterImmature Granulocyte # (Auto)0.02 10 3/uL0.00-0.03[facility] HospitalPlatelet mean volume Auto (Bld) [Entitic vol]on 03-79-9945Kdqqnypw mean volume (Bld) [Entitic vol]Platelet mean volume [Entitic volume] in Blood by Automated count9.5-13.5FCincinnati [facility] Center Platelets Auto (Bld) [#/Vol]on 84-39-0735Fupnfbcuk (Bld) [#/Vol]Platelets [#/volume] in Blood by Automated -170HzpeweolqBarberton Citizens Hospital RBC Auto (Bld) [#/Vol]on 09-04-3972AHO (Bld) [#/Vol]Erythrocytes [#/volume] in Blood by Automated countLow4.70-6.10[facility] HospitalBasophils Auto (Bld) [#/Vol]on 43-09-3484Ouwrxjvds (Bld) [#/Vol]Automated basophil count 0.0-0.1FCincinnati VA Medical CenterBasophils/100 WBC Auto (Bld)on 14-74-3406Elqzdwduf/100 WBC (Bld)Automated basophil %0.2-2.0[facility] HospitalEosinophils/100 WBC Auto (Bld)on 44-24-1696Bhnifkzssdi/100 WBC (Bld)Automated eosinophil %0.9-7.0[facility] HospitalErythrocyte distribution width Auto (RBC) [Ratio]on 24-06-8723Shlhwptrhyx distribution width (RBC) [Ratio]Erythrocyte distribution width [Ratio] by Automated count11.0-15.0 [facility] HospitalEstimated glomerular filtration rate (GFR) non- Americanon 92-93-0108YJY/1.73 sq M.predicted among non-blacks MDRD (S/P/Bld) [Vol rate/Area]Estimated glomerular filtration rate (GFR) non- AmericanLow>=60 mL/min/1.73m 2FCincinnati VA Medical CenterHematocrit Auto (Bld) [Volume fraction]on 40-40-1557Ocdssjdxkj (Bld) [Volume fraction]Hematocrit [Volume Fraction] of Blood by Automated mujibLcd50.0-54.0[facility] HospitalHemoglobin [Mass/volume] in Bloodon 68-97-0468Hnurkupgfj (Bld) [Mass/Vol]Hemoglobin [Mass/volume] in Blood14.0-18.0[facility] HospitalLaboratory - Chemistry and Chemistry - challengeon 21-79-7335Cvunosoie Ql (U)NegativeNEGATIVEBarberton Citizens HospitalGlucose (U) [Mass/Vol]mg/dL AbnormalNEGATIVEBarberton Citizens HospitalKetones Ql (U)TRACE mg/dL AbnormalNEGATIVEBarberton Citizens HospitalpH (U)5.5 [pH]5.0-9.0[facility] Systempecific gravity (U) [Rel density]1.0251.005-1.025 [facility] HospitalUrobilinogen Qn (U)0.2 {Denis'U}/dL0.2-1.0 [facility] HospitalAlbumin [Mass/Vol]3.5 g/dL3.4-5.0[facility] HospitalALP [Catalytic activity/Vol]81 U/Z30-660UzpzpjklbBarberton Citizens HospitalALT [Catalytic activity/Vol]22 U/V49-34WjjcmysbmBarberton Citizens HospitalAST [Catalytic activity/Vol]9 U/UAjn52-85SmnqpsbknBarberton Citizens HospitalBilirubin [Mass/Vol]0.7 mg/dL0.2-1.0[facility] HospitalCreatinine [Mass/Vol]1.21 mg/dL0.70-1.30[facility] GFR/1.73 sq M.predicted MDRD (S/P/Bld) [Vol rate/Area]mL/min/{1.73_m2}>=60 mL/min/1.73m 2FCincinnati VA Medical CenterLaboratory - Hematology and Cell countson 22-36-9351XYS (Bld) [Velocity]20 mm/h<=20[facility] HospitalImmature granulocytes/100 WBC (Bld)0.2 %0.0-0.5FCincinnati VA Medical CenterLaboratory - Specimen informationon 13-41-7291Yxegnkyzcy (U)CLEARCLEAR [facility] HospitalColor (U)LT. YELLOWYELLOWBarberton Citizens HospitalLaboratory - Urinalysison 72-16-9322Ykcugydmj sediment LM Ql (Urine sed)RAREBarberton Citizens HospitalLeukocyte esterase Test strip Ql (U)NegativeNEGATIVEBarberton Citizens HospitalMucus Ql (Urine sed)NONE SEENNONE SEENBarberton Citizens HospitalNitrite Ql (U)NegativeNEGATIVE [facility] HospitalProtein Ql (U)30 mg/dLAbnormalNEG/TRACE [facility] HospitalLeukocytes [#/volume] corrected for nucleated erythrocytes in Blood by Automated counon 68-73-6949ATY corrected for nucl RBC Auto (Bld) [#/Vol]Leukocytes [#/volume] corrected for nucleated erythrocytes in Blood by Automated coun4.0-11.0[facility] HospitalLymphocytes Auto (Bld) [#/Vol]on 78-07-0109Sxbzgwritfi (Bld) [#/Vol]Lymphocytes [#/volume] in Blood by Automated count1.2-3.8[facility] HospitalLymphocytes/100 WBC Auto (Bld)on 64-69-6074Okesjfavaup/100 WBC (Bld)Lymphocytes/100 leukocytes in Blood by Automated count20.5-60.0[facility]ome[facility] HospitalH Auto (RBC) [Entitic mass]on 71-80-3385CGM (RBC) [Entitic mass]MCH [Entitic mass] by Automated count25.9-34.0[facility] HospitalMCHC Auto (RBC) [Mass/Vol]on 08-42-0917TSKJ (RBC) [Mass/Vol]MCHC [Mass/volume] by Automated count29.9-35.2FCincinnati VA Medical CenterMCV Auto (RBC) [Entitic vol]on 44-66-6914PLT (RBC) [Entitic vol]MCV [Entitic volume] by Automated count 80.0-94.0[facility] HospitalMonocytes Auto (Bld) [#/Vol]on 08-84-7762Advjfobae (Bld) [#/Vol]Automated blood monocyte count0.3-0.8[facility] HospitalMonocytes/100 WBC Auto (Bld)on 18-70-1262Wbztzghpj/100 WBC (Bld)Automated monocyte %1.7-12.0[facility] Neutrophils Auto (Bld) [#/Vol]on 56-42-7177Mvwhzsmyfwd (Bld) [#/Vol]Neutrophils [#/volume] in Blood by Automated count1.4-6.5FCincinnati [facility] Center Neutrophils/100 WBC Auto (Bld)on 25-32-5856Nveypjdnmjm/100 WBC (Bld)Automated neutrophil %43.0-75.0[facility] HospitalNo Panel Informationon 31-76-8000Yiaxv BacteriaNONE SEEN #/HPFNONE SEENBarberton Citizens HospitalUrine Occult BloodNegativeNEGATIVEBarberton Citizens HospitalUrine Other CastsNONE SEEN #/LPFNONE SEENBarberton Citizens HospitalUrine Other CrystalsSeen #/HPFAbnormalNone SeenBarberton Citizens HospitalUrine RBC NONE SEEN #/HPF0-2FCincinnati VA Medical CenterUrine Squamous Epithelial CellsNONE SEEN #/LPFNONE/RAREBarberton Citizens HospitalUrine WBCNONE SEEN #/HPFNONE SEENBarberton Citizens HospitalC-Reactive Protein, Quantitative <0.50 mg/dL<=0.50[facility] HospitalEosinophils # (Auto)0.1 10 3/uL0.0-0.7FCincinnati VA Medical CenterImmature Granulocyte # (Auto)0.02 10 3/uL0.00-0.03[facility] HospitalPlatelet mean volume Auto (Bld) [Entitic vol]on 33-10-8746Ump[place]iz[place] mean volume (Bld) [Entitic vol]Platelet mean volume [Entitic volume] in Blood by Automated count9.5-13.5FCincinnati VA Medical CenterPlatelets Auto (Bld) [#/Vol]on 73-04-5577Hgjnxeatn (Bld) [#/Vol] Platelets [#/volume] in Blood by Automated qwpxy265-402DhvrbxpziBarberton Citizens HospitalRBC Auto (Bld) [#/Vol]on 15-98-5968DFM (Bld) [#/Vol]Erythrocytes [#/volume] in Blood by Automated countLow4.70-6.10[facility] HospitalBasophils Auto (Bld) [#/Vol]on 86-42-4989Jkjmvfbce (Bld) [#/Vol]Automated basophil count0.0-0.1FCincinnati VA Medical CenterBasophils/100 WBC Auto (Bld)on 19-59-8259Ctwtxbcxg/100 WBC (Bld)Automated basophil %0.2-2.0[facility] HospitalEosinophils/100 WBC Auto (Bld)on 07-01-2024 Eosinophils/100 WBC (Bld)Automated eosinophil %0.9-7.0[facility] HospitalErythrocyte distribution width Auto (RBC) [Ratio]on 16-25-2558Egstxbdbzxj distribution width (RBC) [Ratio]Erythrocyte distribution width [Ratio] by Automated count11.0-15.0[facility] HospitalHematocrit Auto (Bld) [Volume fraction]on 08-00-7224Xiqytnmnoj (Bld) [Volume fraction]Hematocrit [Volume Fraction] of Blood by Automated puiqfDae21.0-54.0[facility] HospitalHemoglobin [Mass/volume] in Bloodon 19-99-4570Udwiulmhcp (Bld) [Mass/Vol]Hemoglobin [Mass/volume] in KhjnwZar51.0-18.0[facility] HospitalLaboratory - Hematology and Cell countson 72-03-5128Jxfreebk granulocytes/100 WBC (Bld)0.2 %0.0-0.5FCincinnati [facility] Center Leukocytes [#/volume] corrected for nucleated erythrocytes in Blood by Automated counon 58-47-4669PQU corrected for nucl RBC Auto (Bld) [#/Vol]Leukocytes [#/volume] corrected for nucleated erythrocytes in Blood by Automated coun 4.0-11.0[facility] HospitalLymphocytes Auto (Bld) [#/Vol]on 43-10-5438Oxbsdwwgpip (Bld) [#/Vol]Lymphocytes [#/volume] in Blood by Automated count1.2-3.8[facility] HospitalLymphocytes/100 WBC Auto (Bld)on 62-20-3642Vyxgofkmchx/100 WBC (Bld)Lymphocytes/100 leukocytes in Blood by Automated count20.5-60.0[facility] HospitalMCH Auto (RBC) [Entitic mass]on 97-07-5386XJE (RBC) [Entitic mass]MCH [Entitic mass] by Automated count 25.9-34.0[facility] HospitalMCHC Auto (RBC) [Mass/Vol]on 98-78-8195DWGY (RBC) [Mass/Vol]MCHC [Mass/volume] by Automated count29.9-35.2 [facility] HospitalMCV Auto (RBC) [Entitic vol]on 66-13-0211BVE (RBC) [Entitic vol]MCV [Entitic volume] by Automated kejutBhbl88.0-94.0[facility] HospitalMonocytes Auto (Bld) [#/Vol]on 74-64-3333Waazcvjmq (Bld) [#/Vol]Automated blood monocyte count0.3-0.8[facility] Monocytes/100 WBC Auto (Bld)on 33-71-9006Vxmfjpihe/100 WBC (Bld)Automated monocyte %1.7-12.0[facility] HospitalNeutrophils Auto (Bld) [#/Vol]on 11-89-1152Cmyuptvhybs (Bld) [#/Vol]Neutrophils [#/volume] in Blood by Automated countHigh1.4-6.5FCincinnati VA Medical CenterNeutrophils/100 WBC Auto (Bld)on 84-31-9666Iunnltvpxap/100 WBC (Bld)Automated neutrophil %43.0-75.0 [facility] HospitalNo Panel Informationon 83-86-1639Ctvgtpvekkr # (Auto)0.1 10 3/uL0.0-0.7FCincinnati VA Medical CenterImmature Granulocyte # (Auto)0.02 10 3/uL0.00-0.03[facility] HospitalPlatelet mean volume Auto (Bld) [Entitic vol]on 60-48-1804Mongbcvk mean volume (Bld) [Entitic vol] Platelet mean volume [Entitic volume] in Blood by Automated countLow9.5-13.5 [facility] HospitalPlatelets Auto (Bld) [#/Vol]on 07-01-2024 Platelets (Bld) [#/Vol]Platelets [#/volume] in Blood by Automated qgigv824-183 [facility] HospitalRBC Auto (Bld) [#/Vol]on 85-21-0215VJS (Bld) [#/Vol]Erythrocytes [#/volume] in Blood by Automated countLow4.70-6.10[facility] HospitalXR RIBS 2 VIEWS LEFT WITH CHEST ANTEROPOSTERIORon 40-71-7193AK RIBS 2 VIEWS LEFT WITH CHEST ANTEROPOSTERIORTITLE [...] Electronically Signed Tereso Kauffman M.D. 2024-05-17 12:47:15 [facility] HealthcareRadiology Study observation (narrative)[facility] HealthcareXR Ribs Views and Chest PAOrdered By: Elizabeth Kauffman on 44-75-8559JZFG Healthcare Work Phone: Hemoglobin [Mass/volume] in Bloodon 03-11-2024 Hemoglobin (Bld) [Mass/Vol]13.7 g/dLLow14.0-18.0[facility] HospitalQuantiFERON TB Goldon 03-48-2182IDLY CriteriaNormal.[facility] Physician GroupComment on above:Result Comment: QuantiFERON-TB Gold [...] TB #### [facility] ,Quant TB Ag Value0.02Normal.The [facility] Physician GroupComment on above: Performed By: #### QUANT TB #### [facility] ,Quant TB Gold PlusNegativeNormalNegativeThe [facility] Physician GroupComment on above:Result Comment: No response [...] interferon gamma. Chemiluminescence immunoassay methodology Performed at: [facility] [id number] Physical Geographer: Krunal Nichols PhD, Phone: [phone] PERFORMED BY: [address] [place] [address] PATHOLOGIST BAG SORTER ADELFO RAMIREZ M.D.Performed By: #### QUANT TB #### [facility] ,Quant TB2 Ag Value0.02Normal.The [facility] Physician GroupComment on above: Performed By: #### QUANT TB #### [facility] ,Quantiferon Nil Value0.02Normal.The [facility] Physician GroupComment on above: Performed By: #### QUANT TB #### [facility] ,Quantiferon TB Mitogen>10.00Normal.The [facility] Physician GroupComment on above:Performed By: #### QUANT TB #### [facility] ,Glucose mean value [Mass/volume] in Blood Estimated from glycated hemoglobinon 49-19-2099Stmyzup glucose Estimated from glycated hemoglobin (Bld) [Mass/Vol]134 mg/dLBarberton Citizens HospitalLaboratory - Hematology and Cell countson 24-84-6391RhG4g (Bld) [Mass fraction]6.3 %4.5-6.2FCincinnati VA Medical CenterComment on above:ADA RECOMMENDED LIMIT 4.0 - 6.0ADA THERAPEUTIC TARGET < 7.0ACTION SUGGESTED> 7.0XR knee BI 2Von 66-20-0022TP knee BI 2[facility] [place] [address] XRay Report Signed Patient: Mariano Gutierrez MR#: [id number] : 1950 Acct:[id number] Age/Sex: 73 / M ADM Date: 12/09/23 Loc: ICXD Room: Type: [facility] Attending Dr: Carlos Guzmán MD Copies to: Carlos Guzmán MD Ordering Provider: Carlos Guzmán MD Date of Service: 12/09/23 XR/XR hand BI 2V: HAND PAIN ([id number]) XR/XR knee BI 2V: KNEE PAIN 2 [...] Gregory Schmidt M.D.12/09/2023 4:00 PM Dictation Location: [place] [address] Transcribed By: [facility] 12/09/23 1600 Dictated By: Gregory Schmidt DO 12/09/23 1556 Signed By: 12/09/23 1600[facility] Physician GroupAlanine aminotransferase [Enzymatic activity/volume] in Serum or PlasmaOrdered By: Carlos Guzmán on 10-96-4659LCU [Catalytic activity/Vol]11 U/L7-52[facility] HospitalAlbumin [Mass/volume] in Serum or PlasmaOrdered By: Carlos Guzmán on 30-23-2429Lwsdahk [Mass/Vol]3.5 g/dL2.9-4.4FCincinnati [facility] Medical Center Albumin [Mass/volume] in Serum or Plasma by Bromocresol green (BCG) dye binding methoOrdered By: Carlos Guzmán on 58-83-6273Ivgnitu BCG dye [Mass/Vol]3.8 g/dL 3.5-5.7FCincinnati VA Medical CenterAlbumin/Protein.total in 24 hour Urine by ElectrophoresisOrdered By: Carlos Guzmán on 78-34-5797Eijenkl Elph (24H U) [Mass fraction]50.7 %.[facility] HospitalAlkaline phosphatase [Enzymatic activity/volume] in Serum or PlasmaOrdered By: Carlos Guzmán on 91-02-1442RJT [Catalytic activity/Vol]98 U/W91-567NsaanjkzmBarberton Citizens HospitalAspartate aminotransferase [Enzymatic activity/volume] in Serum or Plasma Ordered By: Carlos Guzmán on 61-67-3838WTZ [Catalytic activity/Vol]15 U/L13-39 [facility] HospitalAutomated erythrocytes count in urine sediment (number/area)Ordered By: Carlos Guzmán on 01-07-2717EPY Auto (Urine sed) [#/Area]None seen [HPF]0-4FCincinnati VA Medical CenterAutomated leukocytes count in urine sediment (number/area)Ordered By: Carlos Guzmán on 22-94-0716XYI Auto (Urine sed) [#/Area]0-1 [HPF]0-4FCincinnati VA Medical CenterBasophils Auto (Bld) [#/Vol]Ordered By: Carlos Guzmán on 25-81-5023Jlekihmks (Bld) [#/Vol]0.1 10*3/uL0.0-0.2FCincinnati VA Medical CenterBasophils/100 WBC Auto (Bld)Ordered By: Carlos Guzmán on 08-16-8753Vrtafejxv/100 WBC (Bld)1.1 %. [facility] HospitalBilirubin Test strip Ql (U)Ordered By: Carlos Guzmán on 35-53-4639Qlbdrdgcz Ql (U)NegativeNegativeBarberton Citizens HospitalBilirubin.total [Mass/volume] in Serum or PlasmaOrdered By: Carlos Guzmán on 63-76-9556Dbydnftzn [Mass/Vol]0.6 mg/dL0.3-1.0[facility] HospitalC reactive protein [Mass/volume] in Serum or PlasmaOrdered By: Carlos Guzmán on 03-79-6720AFM [Mass/Vol]0.6 mg/dL0.0-0.5FCincinnati VA Medical CenterCalcium [Mass/volume] in Serum or PlasmaOrdered By: Carlos Guzmán on 40-64-0400Iwtiplo [Mass/Vol]9.4 mg/dL8.6-10.3FCincinnati VA Medical Center Carbon dioxide, total [Moles/volume] in Serum or PlasmaOrdered By: Carlos Guzmán on 59-92-3511ZW5 [Moles/Vol]28.5 mmol/L21.0-31.0[facility] HospitalChloride [Moles/volume] in Serum or PlasmaOrdered By: Carlos Guzmán 87-41-8048Ydszxevd [Moles/Vol]99 mmol/R20-260RlyvknupoBarberton Citizens HospitalColor Auto (U)Ordered By: Carlos Guzmán on 15-50-7744Iptan (U) YellowYellowBarberton Citizens HospitalCreatinine [Mass/volume] in Serum or PlasmaOrdered By: Carlos Guzmán on 31-34-4946Cyuuhkbhic [Mass/Vol]0.73 mg/dL 0.70-1.30[facility] HospitalEosinophils Auto (Bld) [#/Vol]Ordered By: Carlos Guzmán on 71-86-8022Ttotyuzygti (Bld) [#/Vol]0.2 10*3/uL0.0-0.45 [facility] HospitalEosinophils/100 WBC Auto (Bld)Ordered By: Carlos Guzmán on 36-49-8065Vxlilkegagv/100 WBC (Bld)2.0 %.[facility] HospitalErythrocyte distribution width Auto (RBC) [Ratio]Ordered By: Carlos Guzmán on 48-06-0638Wyexsbyagwc distribution width (RBC) [Ratio]15.0 % 12.0-14.8[facility] HospitalErythrocyte sedimentation rate by Photometric methodOrdered By: Carlos Guzmán on 64-10-9276LMA Photometric method (Bld) [Velocity]72 mm/hr0-19Bar[facility] HospitalGamma globulin/Protein.total in 24 hour Urine by ElectrophoresisOrdered By: Carlos Guzmán on 99-39-1769Gdifw globulin Elph (24H U) [Mass fraction]20.1 %.[facility] HospitalGlucose [Mass/volume] in Serum or PlasmaOrdered By: Carlos Guzmán on 07-16-5399Pqzpsok [Mass/Vol]105 mg/gY35-594IaabqaxhqBarberton Citizens HospitalComment on above:ADA recommended reference rangeRandom Glucose Reference Range is dependent on time and content of last meal. Glucose of more than 200 mg/dL in a nonstressed, ambulatory subject supports the diagnosisof Diabetes Mellitus.Hematocrit Auto (Bld) [Volume fraction]Ordered By: Carlos Guzmán on 75-43-1082Smnxchqaxe (Bld) [Volume fraction]38.8 %38.8-50.0[facility] HospitalHemoglobin [Mass/volume] in BloodOrdered By: Carlos Guzmán on 66-30-9759Iwagrsiglx (Bld) [Mass/Vol]13.3 g/dL13.0-17.0[facility] HospitalHepatitis B virus surface Ab [Presence] in SerumOrdered By: Carlos Guzmán on 52-19-5083KKI surface Ab Ql (S)Non-Reactive.[facility] HospitalComment on above:Non Reactive: Inconsistent with immunity, less than 10 mIU/mL Reactive: Consistent with immunity, greater than 9.9 mIU/mLHepatitis B virus surface Ag [Presence] in Serum or Plasma by ImmunoassayOrdered By: Carlos Guzmán on 55-09-9559KBK surface Ag IA QlNegative NegativeBarberton Citizens HospitalHepatitis C virus IgG Ab [Presence] in Serum or Plasma by ImmunoassayOrdered By: Carlos Guzmán on 34-87-8512VFG IgG IA QlNon-ReactiveNon ReactiveBarberton Citizens HospitalIgA [Mass/volume] in Serum or PlasmaOrdered By: Carlos Guzmán on 66-97-5389CqU [Mass/Vol]399 mg/dL 61-437Bar[facility] Citizens HospitalIgG [Mass/volume] in Serum or Plasma Ordered By: Carlos Guzmán on 78-34-7441GqU [Mass/Vol]2589 mg/zE510-8613 [facility] HospitalIgM [Mass/volume] in Serum or PlasmaOrdered By: Carlos Guzmán on 25-44-6629UuW [Mass/Vol]217 mg/rX45-393KzuanliteBarberton Citizens HospitalComment on above:Performed at: [facility] [address] [id number] Director: Krunal Nichols PhD, Phone: [phone] Immunofixation for UrineOrdered By: Carlos Guzmán on 98-01-7106Mijcojunykatpg Immunofixation (U) [Interp]Comment:.[facility] HospitalComment on above:Presence of monoclonal protein is unclear at this time. Suggestrepeat in 3 to 6 months if clinically indicated.Performed at: [facility] [address] [id number] Director: Krunal Nichols PhD, Phone: [phone] light chains.kappa.free [Mass/volume] in SerumOrdered By: Carlos Guzmán on 11-61-2949Klkpskcykyejyi light chains.kappa.free (S) [Mass/Vol]127.8 mg/L3.3-19.4FCincinnati VA Medical CenterImmunoglobulin light chains.kappa.free/Immunoglobulin light chains.lambda.free [MassOrdered By: Carlos Guzmán on 76-49-1424Ucprirrtufaxml light chains.kappa.free/Immunoglobulin light chains.lambda.free (S) [Mass ratio]0.75 0.26-1.65Bar[facility] HospitalComment on above:Performed at: - [facility] [id number] Director: Krunal Nichols PhD, Phone: [phone] light chains.lambda.free [Mass/volume] in Serum or PlasmaOrdered By: Carlos Guzmán on 11-24-2023 Immunoglobulin light chains.lambda.free [Mass/Vol]171.2 mg/L5.7-26.3FCincinnati VA Medical CenterKetones Auto test strip (U) [Mass/Vol]Ordered By: Carlos Guzmán on 56-26-5445Ammmeet (U) [Mass/Vol]TraceNegativeBarberton Citizens HospitalLaboratory - UrinalysisOrdered By: Carlos Guzmán on 11-24-2023 Hyaline casts LM Ql (Urine sed)0-8 [LPF]0-8[facility] Leukocytes [#/volume] corrected for nucleated erythrocytes in Blood by Automated counOrdered By: Carlos Guzmán on 78-74-4857ICC corrected for nucl RBC Auto (Bld) [#/Vol]8.9 10*3/uL4.1-10.5FCincinnati VA Medical CenterLymphocytes Auto (Bld) [#/Vol]Ordered By: Carlos Guzmán on 62-06-2203Umqntiitwun (Bld) [#/Vol]2.5 10*3/uL1.00-4.8[facility] HospitalLymphocytes/100 WBC Auto (Bld)Ordered By: Carlos Guzmán on 84-91-0751Ksnoqsloign/100 WBC (Bld)28.6 %.[facility] HospitalMC Auto (RBC) [Entitic mass]Ordered By: Carlos Guzmán on 35-73-2934KOT (RBC) [Entitic mass]30.0 pg27.5-35.2FCincinnati VA Medical CenterMCHC Auto (RBC) [Mass/Vol]Ordered By: Carlos Guzmán on 22-21-2001HJXR (RBC) [Mass/Vol]34.4 g/dL32.5-35.6FCincinnati VA Medical CenterMCV Auto (RBC) [Entitic vol]Ordered By: Carlos Guzmán on 51-39-5817XZS (RBC) [Entitic vol]87.1 fL83.5-101Bar[facility] HospitalMonocytes Auto (Bld) [#/Vol]Ordered By: Carlos Guzmán on 40-90-8617Suknyfdrh (Bld) [#/Vol]0.7 10*3/uL0.0-0.8[facility] HospitalMonocytes/100 WBC Auto (Bld)Ordered By: Carlos Guzmán on 06-85-8524Ktuhogayj/100 WBC (Bld)7.8 %. [facility] HospitalMyeloperoxidase Ab [Units/volume] in Serum by ImmunoassayOrdered By: Carlos Guzmán on 19-05-0326Gpmbcdcwnhavnjx Ab IA Qn (S) 1.8 units0.0-0.9[facility] HospitalNeutrophil cytoplasmic Ab.perinuclear.atypical [Titer] in Serum by ImmunofluorescenceOrdered By: Carlos Guzmán on 97-81-3694Hhvgaxahfc cytoplasmic Ab.perinuclear.atypical IF (S) [Titer]<1:20 titerNeg:<1:20[facility] HospitalComment on above:The atypical pANCA pattern has been observed in asignificant percentage of patients with ulcerativecolitis,primary sclerosing cholangitis and autoimmune hepatitis.Performed at: - [facility] [id number] Director: Blanca Olmedo MD, Phone: [phone] at: [facility] [id number] Director: Krunal Nichols PhD, Phone: [phone] Auto (Bld) [#/Vol]Ordered By: Carlos Guzmán on 55-01-3535Lvlcsbkfcmv (Bld) [#/Vol]5.4 10*3/uL1.8-7.7FCincinnati VA Medical CenterNeutrophils/100 WBC Auto (Bld)Ordered By: Carlos Guzmán on 53-52-6155Aggecoyktdl/100 WBC (Bld)60.5 %.[facility] Nitrite Test strip Ql (U)Ordered By: Carlos Guzmán on 26-95-5024Oohahmy Ql (U) NegativeNegativeBarberton Citizens HospitalNo Panel InformationOrdered By: Carlos Guzmán on 74-00-3749Szaj-Nuclear Antibody Comment 2See comment. [facility] HospitalComment on above:Pattern Potential Disease Association Homo geneous Systemic Lupus Erythematosus, Drug Induced Systemic Lupus Erythematosus, Chronic Autoimmunehepatitis, Juvenile Idiopathic Arthritis Speckled Sjogren Syndrome, Systemic Lupus Erythematosus, Subacute Cutaneous Lupus, Lupus, Congenital Heart Block, Mixed Connective Tissue Disease, Scleroderma-diffuse, Scleroderma- Autoimmune Myositis Overlap Syndrome, Systemic Lupus Ffoumywhsmssz-Zeqtjiiixbs-Idxloweswb Myositis Overlap Syndrome, Systemic Autoimmune Rheumatic Disease, [...] Cytopenias, Linear Scleroderma, Antiphospholipid Syndrome Performed at: [facility] [address] [id number] Director: Krunal Nichols PhD, Phone: [phone] GFR (CKD-EPI)> 60.0 mL/MinBarberton Citizens HospitalHepatinorthcrest medical center B Core Total AntibodyNegativeNegativeBarberton Citizens HospitalComment on above:Performed at: [facility] [address] [id number] Director: Krunal Nichols PhD, Phone: [phone] [facility] Centeree comment.[facility] HospitalComment on above:Not infected with HCV unless early or acute infection issuspected (which may be delayed in an immunocompromisedindividual), or other evidence exists to indicate HCVinfection.Perinuclear ANCA (p-ANCA) Antibody<1:20 titerNeg:<1:20Bar[facility] Citizens HospitalComment on above:The presence of positive fluorescence exhibiting P-ANCA orC-ANCA patterns alone is not specific forthe diagnosis ofWegener's Granulomatosis (WG) or microscopic polyangiitis.Decisions about treatmentshould not be based solely onANCA IFA results. The [employer] ANCA Group Consensusrecommends follow up testing of positive sera with both NM-3 and MPO-ANCA enzyme immunoassays. As many as 5% serumsamples are positive only by EIA. Ref. AM J Clin Buvema5087;111:507-513. Pharmacy Creatinine Clearance (ChemN/AFCincinnati VA Medical CenterProtein Electrophoresis M-SpikeNot observed g/dLNot ObservedBarberton Citizens HospitalProtein Electrophoresis NoteSee comment.[facility] Comment on above:Protein electrophoresis scan will follow via computer,mail, or experimental plastics fabricator delivery.Performed at: [employer] [id number] Director: Krunal Nichols PhD, Phone: [phone] ImmunofixationSee comment.[facility] HospitalComment on above:No monoclonality detected.Total Complement (CH50)51 U/mL>41Bar[facility] Citizens HospitalComment on above:Age Male Female 1 - 30 [...] to determine out of range values.Performed at: [employer] [id number] Director: Krunal Nichols PhD, Phone: [phone] Random Prot Electrophor NoteSee comment.[facility] HospitalComment on above:Protein electrophoresis scan will follow via computer,mail, or experimental plastics fabricator delivery.Nucleated erythrocytes [Presence] in Blood by Automated countOrdered By: Carlos Guzmán on 06-85-1479Qrednkhvb RBC Auto Ql (Bld)0.0 /100{WBC}0-0.5FCincinnati VA Medical CenterPlatelet mean volume Auto (Bld) [Entitic vol]Ordered By: Carlos Guzmán on 47-30-6025Katkmqks mean volume (Bld) [Entitic vol]7.9 fL6.6-10.1FCincinnati VA Medical Center Platelets Auto (Bld) [#/Vol]Ordered By: Carlos Guzmán on 44-97-1029Xhqwnfjbl (Bld) [#/Vol]369 10*3/iA203-495IdupnkzlxBarberton Citizens HospitalPotassium [Moles/volume] in Serum or PlasmaOrdered By: Carlos Guzmán on 11-24-2023 Potassium [Moles/Vol]4.3 mmol/L3.5-5.1FCincinnati VA Medical CenterProtein Auto test strip (U) [Mass/Vol]Ordered By: Carlos Guzmán on 99-15-7126Gahnbeb (U) [Mass/Vol]30 mg/dLNegativeBarberton Citizens HospitalProtein [Mass/volume] in Serum or PlasmaOrdered By: Carlos Guzmán on 34-77-0330Vyrgiwm [Mass/Vol]8.2 g/dL6.4-8.9[facility] HospitalProtein [Mass/Vol]7.9 g/dL6.0-8.5FCincinnati VA Medical CenterProtein [Mass/volume] in Urine Ordered By: Carlos Guzmán on 62-72-3749Adrbukb (U) [Mass/Vol]40.0 mg/dLNot Estab.[facility] HospitalProtein.monoclonal/Protein.total in 24 hour Urine by ElectrophoresisOrdered By: Carlos Guzmán on 11-24-2023 Protein.monoclonal Elph (24H U) [Mass fraction]Not observed %Not Observed [facility] HospitalProteinase 3 Ab [Units/volume] in Serum by ImmunoassayOrdered By: Carlos Guzmán on 46-82-6589Ryubvbtoep 3 Ab IA Qn (S)<0.2 units0.0-0.9[facility] HospitalRBC Auto (Bld) [#/Vol]Ordered By: Carlos Guzmán on 42-86-0172QVG (Bld) [#/Vol]4.45 10*6/uL3.90-5.60[facility] Systemerum classic neutrophil cytoplasmic antibody titer by immunofluorescenceOrdered By: Carlos Guzmán on 63-39-7780Zayawjimzz cytoplasmic Ab.classic IF (S) [Titer]<1:20 titerNeg:<1:20[facility] Serum globulin measurement by calculation (mass/volume)Ordered By: Carlos Guzmán on 42-33-5267Oihypkge (S) [Mass/Vol]4.4 g/dL2.2-3.9[facility] Systemerum homogeneous pattern antinuclear antibody (VANESSA) titerOrdered By: Carlos Guzmán on 07-80-7712Nmhtbnntxi nuclear Ab pattern (S) [Titer]1:640. [facility] HospitalComment on above:ICAP nomenclature: AC-1Serum nuclear antibody titerOrdered By: Carlos Guzmán on 34-87-8239Wjttucb Ab (S) [Titer]Positive.[facility] HospitalComment on above:Negative <1:80 Borderline 1:80 Positive >1:80Serum or plasma albumin/globulin mass ratio Ordered By: Carlos Guzmán on 58-17-3562Rastpaw/Globulin [Mass ratio]0.9 {ratio} [facility] HospitalAlbumin/Globulin [Mass ratio]0.8 {ratio}0.7-1.7 [facility] Systemerum or plasma alpha 1 globulin measurement by electrophoresis (mass/volume)Ordered By: Carlos Guzmán on 05-95-4308Udowu 1 globulin Elph [Mass/Vol]0.2 g/dL0.0-0.4FTrinity Health System Twin City Medical Centererum or plasma alpha 2 globulin measurement by electrophoresis (mass/volume)Ordered By: Carlos Guzmán on 92-36-3577Dfjzz 2 globulin Elph [Mass/Vol]1.0 g/dL0.4-1.0 [facility] Systemerum or plasma anion gap determinationOrdered By: Carlos Guzmán on 44-36-1432Wyjel gap [Moles/Vol]14.8 mmol/L6.0-15.0 [facility] Systemerum or plasma beta globulin measurement by electrophoresis (mass/volume)Ordered By: Carlos Guzmán on 27-44-9572Pcju globulin Elph [Mass/Vol]1.0 g/dL0.7-1.3FTrinity Health System Twin City Medical Centererum or plasma complement C3 measurement (mass/volume)Ordered By: Carlos Guzmán on 74-78-2907Tnninwadxm C3 [Mass/Vol]135 mg/iD28-963ZwugibtopBarberton Citizens HospitalComment on above:Performed at: [address] [id number] Director: Krunal Nichols PhD, Phone: [phone] or plasma complement C4 measurement (mass/volume)Ordered By: Carlos Guzmán on 07-99-6467Znmlwhjkkk C4 [Mass/Vol]10 mg/bU47-52IwowrotbcBarberton Citizens Hospital Serum or plasma gamma globulin measurement by electrophoresis (mass/volume) Ordered By: Carlos uGzmán on 88-18-0053Yhexn globulin Elph [Mass/Vol]2.2 g/dL 0.4-1.8[facility] Systemodium [Moles/volume] in Serum or Plasma Ordered By: Carlos Guzmán on 96-56-9550Txxspd [Moles/Vol]138 mmol/A924-282 [facility] Systempecific gravity Auto test strip (U) [Rel density]Ordered By: Carlos Guzmán on 74-31-5366Tkovulxl gravity (U) [Rel density]1.0391.001-1.030[facility] Systemquamous epithelial cells detection in urine sediment by light microscopyOrdered By: Carlos Guzmán on 97-77-2041Nycsnvywwn cells.squamous LM Ql (Urine sed)None seen [HPF]0-2 [facility] HospitalUrea nitrogen [Mass/volume] in Serum or Plasma Ordered By: Carlos Guzmán on 88-66-2924Iajn nitrogen [Mass/Vol]15 mg/dL7-25 [facility] HospitalUrine alpha 1 globulin/total protein by electrophoresisOrdered By: Carlos Guzmán on 89-52-9048Vuadg 1 globulin Elph (U) [Mass fraction]1.3 %.[facility] HospitalUrine alpha 2 globulin/total protein ratio by electrophoresisOrdered By: Carlos Guzmán on 24-61-3051Yquqh 2 globulin Elph (U) [Mass fraction]9.1 %.[facility] HospitalUrine bacteria detection by automated methodOrdered By: Carlos Guzmán on 62-85-5431Nkbzujgc Auto Ql (U)None seenNone SeenBarberton Citizens HospitalUrine beta globulin measurement by electrophoresis (mass/volume) Ordered By: Carlos Guzmán on 19-61-1434Dwfu globulin Elph (U) [Mass/Vol]18.7 %. [facility] HospitalUrine clarity by refractometry automatedOrdered By: Carlos Guzmán on 82-57-9523Summarv Refractometry automated (U)ClearClear [facility] HospitalUrine glucose measurement by automated test strip (mass/volume)Ordered By: Carlos Guzmán on 71-12-6396Qrdifly Auto test strip (U) [Mass/Vol]>=1000 mg/dLNoCrystal Clinic Orthopedic CenterUrine hemoglobin detection by automated test stripOrdered By: Carlos Guzmán on 01-83-1338Bypnhlvqjt Auto test strip Ql (U)NegativeNegLakeHealth TriPoint Medical CenterUrine leukocyte esterase detection by automated test stripOrdered By: Carlos Guzmán on 98-15-2582Muoyipcnl esterase Auto test strip Ql (U) NegativeNegLakeHealth TriPoint Medical CenterUrobilinogen Auto test strip (U) [Mass/Vol]Ordered By: Carlos Guzmán on 87-95-2151Fggqrnpszisq (U) [Mass/Vol]Normal mg/dLNoCrystal Clinic Orthopedic CenterWBC Auto (Bld) [#/Vol]Ordered By: Carlos Guzmán on 03-22-1253IBA (Bld) [#/Vol]8.9 10*3/uL 4.1-10.5FCincinnati VA Medical CenterpH Auto test strip (U)Ordered By: Carlos Guzmán on 93-50-7941oK (U)5.0 [pH]5.0-9.0[facility] HospitalBasophils Auto (Bld) [#/Vol]on 33-84-6598Pvvilwqxc (Bld) [#/Vol]0.1 10 3/uL0.0-0.1FCincinnati VA Medical CenterBasophils/100 WBC Auto (Bld)on 72-14-1514Ajgzwptni/100 WBC (Bld)0.7 %0.2-2.0[facility] Centriole Ab [Titer] in Serum by Immunofluorescenceon 58-19-8398Dizxrfmhl Ab IF (S) [Titer][facility] HospitalCentromere Ab [Titer] in Serum by Immunofluorescenceon 55-61-6676Czqcoifanq Ab IF (S) [Titer][facility] HospitalEosinophils/100 WBC Auto (Bld)on 10-28-2023 Eosinophils/100 WBC (Bld)2.2 %0.9-7.0[facility] Erythrocyte distribution width Auto (RBC) [Ratio]on 95-80-4745Otstrbfyvpe distribution width (RBC) [Ratio]14.6 %11.0-15.0[facility] Estimated glomerular filtration rate (GFR) non- Americanon 10-28-2023 GFR/1.73 sq M.predicted among non-blacks MDRD (S/P/Bld) [Vol rate/Area] mL/min/{1.73_m2}>=60[facility] HospitalGlobulin Calc (S) [Mass/Vol]on 36-02-4945Vexuzuog (S) [Mass/Vol]5.8 g/dLBarberton Citizens HospitalHematocrit Auto (Bld) [Volume fraction]on 97-14-9261Hhvddihzcm (Bld) [Volume fraction]40.0 %42.0-54.0[facility] HospitalHemoglobin [Mass/volume] in Bloodon 30-17-0376Qmottskele (Bld) [Mass/Vol]13.1 g/dL14.0-18.0 [facility] HospitalLaboratory - Chemistry and Chemistry - challengeon 45-46-4083Thqwsux [Mass/Vol]2.8 g/dL3.4-5.0[facility] HospitalALP [Catalytic activity/Vol]94 U/I12-211PlbuhbneuBarberton Citizens HospitalALT [Catalytic activity/Vol]17 U/N21-05NzmkjsqsuBarberton Citizens Hospital AST [Catalytic activity/Vol]23 U/T56-96ChgjyafdoBarberton Citizens Hospital Bilirubin [Mass/Vol]0.6 mg/dL0.2-1.0[facility] HospitalCalcium [Mass/Vol]8.8 mg/dL8.5-10.1FCincinnati VA Medical CenterChloride [Moles/Vol] 100 mmol/G60-504SduhxdbmaBarberton Citizens HospitalCO2 [Moles/Vol]28.0 mmol/L 21.0-32.0[facility] HospitalCreatinine [Mass/Vol]0.80 mg/dL 0.70-1.30[facility] HospitalGFR/1.73 sq M.predicted MDRD (S/P/Bld) [Vol rate/Area]mL/min/{1.73_m2}>=60[facility] HospitalGlucose [Mass/Vol]135 mg/xY61-560UpdhfvqwrBarberton Citizens HospitalPotassium [Moles/Vol] 4.5 mmol/L3.5-5.1FCincinnati VA Medical CenterProtein [Mass/Vol]8.6 g/dL 6.4-8.2FTrinity Health System Twin City Medical Centerodium [Moles/Vol]138 mmol/M465-865 [facility] HospitalUrate [Mass/Vol]4.2 mg/dL3.5-7.2FCincinnati VA Medical CenterUrea nitrogen [Mass/Vol]14.0 mg/dL7.0-18.0[facility] HospitalUrea nitrogen/Creatinine [Mass ratio]17.5 mg/mgBarberton Citizens HospitalLaboratory - Hematology and Cell countson 01-36-7766PSV (Bld) [Velocity]62 mm/h<=20[facility] HospitalImmature granulocytes/100 WBC (Bld)0.1 %0.0-0.5FCincinnati VA Medical Center Leukocytes [#/volume] corrected for nucleated erythrocytes in Blood by Automated counon 73-26-9307YGF corrected for nucl RBC Auto (Bld) [#/Vol]7.2 10 3/uL 4.0-11.0[facility] HospitalLymphocytes Auto (Bld) [#/Vol]on 13-21-8382Devwtiogopq (Bld) [#/Vol]1.9 10 3/uL1.2-3.8[facility] HospitalLymphocytes/100 WBC Auto (Bld)on 66-14-3220Fwvripmdzry/100 WBC (Bld)26.6 % 20.5-60.0[facility] Auto (RBC) [Entitic mass]on 36-85-0274DKF (RBC) [Entitic mass]30.2 pg25.9-34.0[facility] HospitalMCHC Auto (RBC) [Mass/Vol]on 02-08-0258WDOI (RBC) [Mass/Vol]32.8 g/dL 29.9-35.2FCincinnati VA Medical CenterMCV Auto (RBC) [Entitic vol]on 86-97-5491ZBJ (RBC) [Entitic vol]92.2 fL80.0-94.0[facility] HospitalMidbody Ab [Titer] in Serum by Immunofluorescenceon 62-41-5215Hqtlkrh Ab IF (S) [Titer]TNP.[facility] HospitalMitotic spindle apparatus Ab [Titer] in Serum or Plasma by Immunofluorescenceon 96-05-6602Jvpbzhf spindle apparatus Ab IF [Titer]TNP.[facility] HospitalMonocytes Auto (Bld) [#/Vol]on 00-06-9986Ghmqjlzjz (Bld) [#/Vol]0.8 10 3/uL0.3-0.8[facility] HospitalMonocytes/100 WBC Auto (Bld)on 08-18-4689Qbnleeack/100 WBC (Bld) 10.4 %1.7-12.0[facility] HospitalNeutrophils Auto (Bld) [#/Vol]on 88-20-0431Dkjdkjqdsyu (Bld) [#/Vol]4.3 10 3/uL1.4-6.5FCincinnati VA Medical CenterNeutrophils/100 WBC Auto (Bld)on 53-11-4314Theticayciq/100 WBC (Bld)60.0 % 43.0-75.0[facility] HospitalNo Panel Informationon 54-46-3973Uomm- Nuclear Antibody Comment 2Comment.[facility] HospitalComment on above:Pattern Potential Disease Association Homogeneous Systemic Lupus Erythematosus, Drug Induced Systemic Lupus Erythematosus, Chronic Autoimmune hepatitis, Juvenile Idiopathic Arthritis Speckled Sjogren Syndrome, Systemic Lupus Erythematosus, Subacute Cutaneous Lupus, Lupus, Congenital Heart Block, Mixed Connective Tissue Disease, Scleroderma-diffuse, Scleroderma- Autoimmune Myositis Overlap Syndrome, Systemic Lupus Yzflykjgirrrj-Rehotbiargm-Tofcqhtefa Myositis Overlap Syndrome, Systemic Autoimmune Rheumatic Disease, [...] Cytopenias, Linear Scleroderma, Antiphospholipid Syndrome Performed at: [facility]coKind[facility] at WayneGocczo[address] [place], [place] [id number] Director: Krunal Nichols PhD, Phone: [phone]-Wqmayzzq Protein, Quantitative<0.50 mg/dL <=0.50[facility] HospitalEosinophils # (Auto)0.2 10 3/uL0.0-0.7 [facility] HospitalImmature Granulocyte # (Auto)0.01 10 3/uL 0.00-0.03[facility] HospitalNuclear dots nuclear Ab pattern [Titer] in Serum by Immunofluorescenceon 58-75-9502Pouceid dots nuclear Ab pattern IF (S) [Titer]TNP.[facility] HospitalNuclear membrane pores nuclear Ab pattern [Titer] in Serum by Immunofluorescenceon 10-28-2023 Nuclear membrane pores nuclear Ab pattern IF (S) [Titer]TNP.[facility] HospitalPCNA extractable nuclear Ab [Titer] in Serum by Immunofluorescence on 76-16-1884RCSI extractable nuclear Ab IF (S) [Titer]TN.[facility] HospitalPlatelet mean volume Auto (Bld) [Entitic vol]on 21-77-7833Wicatewe mean volume (Bld) [Entitic vol]8.9 fL9.5-13.5FCincinnati VA Medical Center Platelets Auto (Bld) [#/Vol]on 66-30-9353Ghxkvuckb (Bld) [#/Vol]296 10 3/uL 150-450Bar[facility] HospitalRBC Auto (Bld) [#/Vol]on 05-63-9816NFK (Bld) [#/Vol]4.34 10 6/uL4.70-6.10[facility] Systemerum homogeneous pattern antinuclear antibody (VANESSA) titeron 15-26-0095Rlgyfhfszz nuclear Ab pattern (S) [Titer]1:640.[facility] HospitalComment on above:ICAP nomenclature: AC-1Serum nuclear antibody titeron 88-87-5731Fgmqghe Ab (S) [Titer]Positive.[facility] HospitalComment on above:Negative <1:80 Borderline 1:80 Positive >1:80Serum nucleolar pattern antinuclear antibody (VANESSA) titeron 79-70-7057Fjgspjlir nuclear Ab pattern (S) [Titer]TN.[facility] Systemerum or plasma albumin/globulin mass ratioon 10-28-2023 Albumin/Globulin [Mass ratio]0.5 {ratio}[facility] Systemerum or plasma anion gap determinationon 04-18-2821Gmbln gap [Moles/Vol]14.5 mmol/L [facility] Systemerum or plasma cyclic adenosine monophosphate measurement (moles/volume)on 83-14-2023Nvtevhftp monophosphate.cyclic [Moles/Vol]>250 units0-[facility] HospitalComment on above: Negative <20 Weak positive 20 - 39 Moderate positive 40 - 59 Strong positive >59Performed at:[employer] [address] [place], [place] [id number] Director: Krunal Nichols PhD, Phone: [phone] or plasma rheumatoid factor measurement (units/volume)on 49-88-6220Nvaskkzhop factor Qn183.9 [IU]/mL <14.0[facility] HospitalComment on above:Results confirmed ondilution.Performed at: [facility] [place], [place] [id number] Director: Krunal Nichols PhD, Phone: [phone] speckled pattern antinuclear antibody (VANESSA) titeron 66-72-2264Pbcsqcms nuclear Ab pattern (S) [Titer]TNP.[facility] HospitalGlucose Glucometer (BldC) [Mass/Vol]Ordered By: Erickson Nascimento on 63-49-3050Hnqzvhk [Mass/Vol]134 mg/dL [facility] HospitalComment on above:Random Glucose Reference Range is dependent on time and content of last meal. Glucose of more than 200 mg/dL in a nonstressed, ambulatory subject supports the diagnosis of Diabetes Mellitus.GLYCOHEMOGLOBIN A1Con 80-29-2281CEL RECOMMENDATIONSEE BELOWAdena Health SystemComment on above:Result Comment: ADA RECOMMENDED LIMIT 4.0 - 6.0 ADA THERAPEUTIC TARGET < 7.0 ACTION SUGGESTED > 7.0Performed By: #### DATA1C #### [facility] [address] [place] [address] Dr. Ginger KeaneGlucose [Mass/Vol]123 mg/dLAdena Health SystemComment on above:Performed By: #### DATA1C #### [facility] [address] [place] [address] Dr. Ginger KeaneHbA1c (Bld) [Mass fraction]5.9 %Normal4.5-6.2The [facility] WestComment on above:Performed By: #### DATA1C #### [facility] [address] [place] [address] Dr. Ginger KeaneGLYCOHEMOGLOBIN A1Con 92-08-4373HDR RECOMMENDATIONSEE BELOWNormal The [facility] WestComment on above:Result Comment: ADA RECOMMENDED LIMIT 4.0 - 6.0 ADA THERAPEUTIC TARGET < 7.0 ACTION SUGGESTED > 7.0Performed By: #### DATA1C #### [facility] [address] [place] [address] Dr. Ginger KeaneGlucose [Mass/Vol]160 mg/dLNormalThe [facility] WestComment on above:Performed By: #### DATA1C #### [facility] [address] [place] [address] Dr. Ginger AcostaA1c (Bld) [Mass fraction]7.2 %Critically high4.5-6.2The [facility] WestComment on above:Performed By: #### DATA1C #### [facility] [address] [place] [address] Dr. Ginger KeaneMICROALBUMIN URINEon 85-01-8675Djmdsht, Wlytc967.8 ug/mLNormalNot Estab.The [facility] WestComment on above:Performed By: #### MALBLC #### [facility] [address] [place] [address] Dr. Ginger KeaneCBC AUTO DIFFon 90-17-7257LJGZ #0.1 103/ulNormal0.0-0.1The [facility] WestComment on above:Performed By: #### CBC #### [facility] [address] [place] [address] Dr. Ginger KeaneBasophils/100 WBC (Bld)0.6 %Normal0.2-2.0The [facility] Comment on above:Performed By: #### CBC #### [facility] [address] [place] [address] Dr. Ginger Lu #0.2 103/ulNormal0.0-0.7The [facility] WestComment on above: Performed By: #### CBC #### [facility] [address] [place] [address] Dr. Ginger Phanosinophils/100 WBC (Bld)2.9 %Normal0.9-7.0The [facility] Comment on above:Performed By: #### CBC #### [facility] [address] [place] [address] Dr. Ginger Phanrythrocyte distribution width (RBC) [Ratio]12.9 %Nexnfm29.0-15.0 The [facility] WestComment on above:Performed By: #### CBC #### [facility] [address] [place] [address] Dr. Ginger KeaneHematocrit (Bld) [Volume fraction]44.3 %Nxptxy19.0-54.0The [facility] WestComment on above:Performed By: #### CBC #### [facility] [address] [place] [address] Dr. Ginger KeaneHemoglobin (Bld) [Mass/Vol]15.6 g/pLWyekaq61.0-18.0The [facility] WestComment on above:Performed By: #### CBC #### [facility] [address] [place] [address] Dr. Ginger Boucher #0.01 10e3/ulNormal0.00-0.03The [facility] WestComment on above:Performed By: #### CBC #### [facility] [address] [place] [address] Dr. Ginger Boucher %0.1 %Normal0.0-0.5The [facility] WestComment on above: Performed By: #### CBC #### [facility] [address] [place] [address] Dr. Ginger Dominguez #2.9 103/ulNormal1.2-3.8The [facility] WestComment on above:Performed By: #### CBC #### [facility] [address] [place] [address] Dr. Ginger Blancomphocytes/100 WBC (Bld)34.1 %Vtnset25.5-60.0The [facility] WestComment on above:Performed By: #### CBC #### [facility] [address] [place] [address] Dr. Ginger GonzalezUAL DIFF REQNONormalThe [facility] WestComment on above: Performed By: #### CBC #### [facility] [address] [place] [address] Dr. Ginger Whiteside (RBC) [Entitic mass]32.8 ofJwxnwb24.9-34.0The [facility] WestComment on above:Performed By: #### CBC #### [facility] [address] [place] [address] Dr. Ginger Whiteside (RBC) [Mass/Vol]35.2 g/hCNgbwbt58.9-35.2The [facility] WestComment on above:Performed By: #### CBC #### [facility] [address] [place] [address] Dr. Ginger Whiteside (RBC) [Entitic vol]93.3 sDSyqsjs48.0-94.0The [facility] WestComment on above:Performed By: #### CBC #### [facility] [address] [place] [address] Dr. Ginger Dyer #0.6 103/ulNormal0.3-0.8The [facility] WestComment on above:Performed By: #### CBC #### [facility] [address] [place] [address] Dr. Ginger Guerreroocytes/100 WBC (Bld)7.5 %Normal1.7-12.0The [facility] Comment on above:Performed By: #### CBC #### [facility] [address] [place] [address] Dr. Ginger Magallon #4.6 103/ulNormal1.4-6.5The [facility] WestComment on above:Performed By: #### CBC #### [facility] [address] [address] [address] Ginger Rodriguezutrophils/100 WBC (Bld)54.8 %Bumaye49.0-75.0The [facility] on above:Performed By: #### CBC #### [facility] [address] [address] [address] Ginger Brownlet mean volume (Bld) [Entitic vol]9.7 fLNormal9.5-13.5The [facility] WestComment on above:Performed By: #### CBC #### [facility] [address] [place] [address] Dr. Ginger KeanePLT260 103/nmUhumcz427-877Mpy [facility] WestComhutzel women[facility] hospital on above: Performed By: #### CBC #### [facility] [address] [place] [address] Dr. Ginger KeaneRBC4.75 106/ulNormal4.70-6.10The [facility] WestComment on above:Performed By: #### CBC #### [facility] [address] [place] [address] Dr. Ginger KeaneWBC8.4 103/ulNormal4.0-11.0The [facility] WestComment on above: Performed By: #### CBC #### [facility] [address] [place] [address] Dr. Ginger HansonID PROFILEon 70-34-8914FCGG-HDL RATIO NORMSAdena Health SystemComment on above:Result Comment: 3.3 - 4.4 LOW RISK 4.4 - 7.1 AVERAGE RISK 7.1 - 11.0 MODERATE RISK >11.0 HIGH RISKPerformed By: #### BMP, LIPID, ALT #### [facility] [address] [place] [address] Dr. Ginger KeaneCholesterol [Mass/Vol]119 mg/dLNormal<=200The [facility] Comment on above:Performed By: #### BMP, LIPID, ALT #### [facility] [address] [place] [address] Dr. Yilan ChangCholesterol in HDL [Mass/Vol]37 mg/dLCritically wgl13-00Sxw [facility] on above:Performed By: #### BMP, LIPID, ALT #### [facility] [address] [address] [address] Ginger KeaneCholesterol in LDL [Mass/Vol]35.2 mg/dLLima City Hospital on above:Performed By: #### BMP, LIPID, ALT #### [facility] [address] [place] [address] Dr. Ginger Roqueestermarcia.total/Cholesterol in HDL [Mass ratio]3.2 {ratio} NormalThe [facility] on above:Performed By: #### BMP, LIPID, ALT #### [facility] [address] [place] [address] Dr. Ginger Walsh NORMAL> or = 60 mg/dl - LOW CARDIOVASCULAR RISK <40 mg/dl - HIGH CARDIOVASCULAR RISKAdena Health SystemComhutzel women's hospital on above:Performed By: #### BMP, LIPID, ALT #### [facility] [address] [place] [address] Dr. Ginger Calix CALC NORMALSEE BELOWAdena Health SystemComhutzel women's hospital on above:Result Comment: <100 mg/dl OPTIMAL 100 - 129 mg/dl NEAR OR ABOVE OPTIMAL 130 - 159 mg/dl BORDERLINE HIGH 160 - 189 mg/dl HIGH >190 mg/dl VERY HIGH Performed By: #### BMP, LIPID, ALT #### [facility] [address] [place] [address] Dr. Ginger KeaneTriglyceride [Mass/Vol]234 mg/dLCritically high<=150The [facility] on above:Performed By: #### BMP, LIPID, ALT #### [facility] [address] [place] [address] Dr. Ginger KeaneVLDL CALC46.8 mg/dLAdena Health SystemComhutzel women's hospital on above: Performed By: #### BMP, LIPID, ALT #### [facility] [address] [place] [address] Dr. Ginger KeanePROF CHEM 8 (BAS METB)on 45-36-0361Fogor gap [Moles/Vol]13.3 mmol/LNormalThe [facility] WestComment on above:Performed By: #### BMP, LIPID, ALT #### [facility] [address] [place] [address] Dr. Ginger KeaneCalcium [Mass/Vol]8.7 mg/dLNormal8.5-10.1The [facility] Comment on above:Performed By: #### BMP, LIPID, ALT #### [facility] [address] [address] [address] Ginger KeaneChloride [Moles/Vol]102 mmol/CSsffeo75-283Lye [facility] Comment on above:Performed By: #### BMP, LIPID, ALT #### [facility] [address] [place] [address] Dr. Ginger KeaneCO2 [Moles/Vol]26.8 mmol/NToelnt20.0-32.0The [facility] Comment on above:Performed By: #### BMP, LIPID, ALT #### [facility] [address] [place] [address] Dr. Ginger KeaneCreatinine [Mass/Vol]0.92 mg/dLNormal0.70-1.30The [facility] WestComment on above:Performed By: #### BMP, LIPID, ALT #### [facility] [address] [place] [address] Dr. Ginger PhanGFR-AF [place] ISLANDER>60Normal>=60The [facility] WestComment on above:Performed By: #### BMP, LIPID, ALT #### [facility] [address] [place] [address] Dr. Ginger PhanGFR-NON AF [place]ER>60Normal>=60The [facility] WestComment on above:Performed By: #### BMP, LIPID, ALT #### [facility] [address] [address] [address] Ginger KeaneGlucose [Mass/Vol]161 mg/dLCritically nayz24-251Uds [facility] WestComment on above:Performed By: #### BMP, LIPID, ALT #### [facility] [address] [address] [address] Ginger KeanePotassium [Moles/Vol]4.1 mmol/LNormal3.5-5.1The [facility] Comment on above:Performed By: #### BMP, LIPID, ALT #### [facility] [address] [address] [address] Ginger KeaneSodium [Moles/Vol]138 mmol/VLxbcck319-395Bee [facility] Comment on above:Performed By: #### BMP, LIPID, ALT #### [facility] [address] [address] [address] Ginger KeaneUrea nitrogen [Mass/Vol]13.0 mg/dLNormal7.0-18.0The [facility] WestComment on above:Performed By: #### BMP, LIPID, ALT #### [facility] [address] [address] [address] Ginger Mera nitrogen/Creatinine [Mass ratio]14.1 mg/mgNoMount St. Mary HospitalComment on above:Performed By: #### BMP, LIPID, ALT #### [facility] [address] [address] [address] Ginger De La Fuente 15-61-6129KED [Catalytic activity/Vol]26 U/FNrykxk82-55LjhUniversity Hospitals Parma Medical CenterComment on above:Performed By: #### BMP, LIPID, ALT #### [facility] [address] [place] [address] Dr. Ginger KeaneGLYCOHEMOGLOBIN A1Con 56-01-6967HBB RECOMMENDATIONSEE BELOWNormal The [facility] WestComment on above:Result Comment: ADA RECOMMENDED LIMIT 4.0 - 6.0 ADA THERAPEUTIC TARGET < 7.0 ACTION SUGGESTED > 7.0Performed By: #### DATA1C #### [facility] [address] [place] [address] Dr. Ginger KeaneGlucose [Mass/Vol]146 mg/dLNoMount St. Mary HospitalComment on above:Performed By: #### DATA1C #### [facility] [address] [address] [address] Ginger KeaneHbA1c (Bld) [Mass fraction]6.7 %Critically high4.5-6.2The [facility] WestComment on above:Performed By: #### DATA1C #### [facility] [address] [place] [address] Dr. Ginger Keane Vital Signs Date TimeVital SignValuePerforming QkukrwmmnCiybliqb41-90-1979 11:45-0400Body srrvne777.8 cmBenjamin Ball DO Work Phone: [phone] [place], [place] 6660809-29-2025 11:45-0400 Body mass index (BMI) [Ratio]28.5 kg/o8Yligsjqj Ball DO Work Phone: [phone]09-29-2025 11:45-0400 Body .43 kgBenjamin Ball DO Work Phone: 1([phone])535-[address] [place], [place] 6660809-29-2025 11:45-0400 Diastolic blood mm[Hg]Vernon Ball DO Work Phone: [phone]09-29-2025 11:45-0400 Heart rate95 /minBenjamin Ball DO Work Phone: 1(759)080-[address] [place], [place] 6660809-29-2025 11:45-0400 Respiratory rate12 /minBenjamin Ball DO Work Phone: [phone])371-[address] [place], [place] 6660809-29-2025 11:45-0400 Systolic blood iscupjif654 mm[Hg]Vernon Ball DO Work Phone: 1(578)311-[address] [place], [place] 6660802-27-2025 11:03-0500 Body wesqbn972.8 cmBar[facility]02-27-2025 11:03-0500Body mass index (BMI) [Ratio]29.7 kg/p1QzawplxpsBarberton Citizens Hospital02-27-2025 11:03-0500Body ygrymo58 kgBarberton Citizens Hospital02-27-2025 11:03-0500 Diastolic blood lakbqxqa30 mm[Hg][facility]02-27-2025 11:03-0500Heart rate98 /[facility]02-27-2025 11:03-0500Respiratory rate12 /[facility]02-27-2025 11:03-0500Systolic blood jeaixegx076 mm[Hg][facility] 09-24-2024 11:36-0500Body vobrjp067.8 cmBar[facility] 09-24-2024 11:36-0500Body mass index (BMI) [Ratio]29.9 kg/a3MbewimuwkBarberton Citizens Hospital01-24-2025 11:36-0500Body ogjvvw30.85 kgBarberton [facility] Hospital01-24-2025 11:36-0500Diastolic blood mm[Hg][facility]01-24-2025 11:36-0500Heart rate88 /[facility]01-24-2025 11:36-0500Respiratory rate12 /[facility]01-24-2025 11:36-6425DnS6% (BldA) [Mass fraction]95 %[facility]01-24-2025 11:36-0500Systolic blood yqmwdtjc521 mm[Hg][facility]09-25-2024 13:28-0400Body .34 cmBar[facility]ton [facility] Hospital09-25-2024 13:28-0400Body mass index (BMI) [Ratio]28.2 kg/k3NvczabvijBarberton Citizens Hospital09-25-2024 13:28-0400Body ujqfyv41.73 kg [facility]09-25-2024 13:28-0400Diastolic blood hrvaokjd17 mm[Hg][facility]09-25-2024 13:28-0400Heart rate77 /min [facility]09-25-2024 13:28-0400Systolic blood mm[Hg][facility]09-16-2024 13:51-0400Body temperature 97.81 [degF]Angeles Payan INSPECTOR FUEL HOSE Work Phone: [facility] HospitalNzplsnwzvw98-85-4571 13:51-0400Body orujpk07.81 kgAngeles Payan NP Work Phone: [facility] HospitalIhefnsdltz87-62-0788 13:51-0400Diastolic blood egnyriue46 mm[Hg]Angeles Payan INSPECTOR FUEL HOSE Work Phone: [facility] HospitalMojgoarytf06-38-0320 13:51-0400Heart kpjv430 /min Angeels Payan INSPECTOR FUEL HOSE Work Phone: [facility] HealthcareComment on above:repeat puls 96bpm ezhpmm26-66-6773 13:51-0400Respiratory rate20 /minAngeles Payan INSPECTOR FUEL HOSE Work Phone: [phone] HospitalYsvjsjwfgu61-16-3030 13:51-1146UeH7% (BldA) [Mass fraction]94 %Angeles Payan INSPECTOR FUEL HOSE Work Phone: [facility] HospitalSdugserjwz24-94-8908 13:51-0400Systolic blood xrtdugff660 mm[Hg]Angeles Payan INSPECTOR FUEL HOSE Work Phone: [facility] HospitalOsxdtvnfls14-22-9267 11:02-0400Body whnioa736.34 cmDO Vernon Ball Work Phone: [phone]04-30-2024 11:02-0400 Body mass index (BMI) [Ratio]26.4 kg/m2DO Vernon Ball Work Phone: [facility]04-30-2024 11:02-0400 Body fydaiq28.89 kgDO Vernon Ball Work Phone: [facility]04-30-2024 11:02-0400 Diastolic blood uhimdzzr53 mm[Hg]DO Vernon Ball Work Phone: [facility]04-30-2024 11:02-0400 Heart rate93 /minDO Vernon Ball Work Phone: [facility]04-30-2024 11:02-0400 Respiratory rate16 /minDO Vernon Ball Work Phone: [facility]04-30-2024 11:02-0400 Systolic blood igmwbvhx935 mm[Hg]DO Vernon Ball Work Phone: [facility]02-19-2024 15:23-0500 Body qsgswa715.34 cmBar[facility]ton [facility]02-19-2024 15:23-0500Body mass index (BMI) [Ratio]25.5 kg/w4UzwbwduzfBarberton Citizens Hospital02-19-2024 15:23-0500Body ngehdc57.09 kgBarberton Citizens Hospital02-19-2024 15:23-0500Diastolic blood mm[Hg][facility] 10-20-2023 15:23-0500Heart rate99 /[facility] 10-20-2023 15:23-0500Respiratory rate20 /[facility] 10-20-2023 15:23-0500Systolic blood njsoeljk699 mm[Hg][facility]01-31-2024 10:00-0500Body qsqlir363.34 cmBenjamin Ball Other [facility]01-31-2024 10:00-0500 Diastolic blood mm[Hg]Vernon Ball Other [facility]01-31-2024 10:00-0500 SaO2% (BldA) [Mass fraction]90 %Vernon Ball Other [facility] Other 01-31-2024 10:00-0500Systolic blood soumvchn004 mm[Hg] Vernon Ball Other [facility]12-29-2023 10:00-0500 Body .34 cmBenjamin Ball Other [facility]12-29-2023 10:00-0500 Body mass index (BMI) [Ratio]25.63 kg/z8Eciuwiot Ball Other [facility] Other 138634-31-3696 10:00-0500Body lukelg65.37 kgBenjamin Ball Other [facility]12-29-2023 10:00-0500 Diastolic blood yrbvniex70 mm[Hg]Vernon Ball Other [facility]12-29-2023 10:00-0500 Respiratory rate20 /minBenjamin Ball Other [place] [employer] Other 259212-80-4958 10:00-2487SuD2% (BldA) [Mass fraction]84 % Vernon Ball Other [place] [employer] Other Phone: [phone] 10:00-0500Systolic blood mm[Hg] Vernon Ball Other [facility]12-12-2023 11:00-0500 Body .34 cmBenjamin Ball Other [facility]12-12-2023 11:00-0500 Body mass index (BMI) [Ratio]25.55 kg/u4Pldbxfsq Ball Other [place] [employer] Other Phone: [phone] 11:00-0500Body kxvygo00.1 kgBenjamin Ball Other [place] [employer] Other Phone: [phone] 11:00-0500Body dkitfy63.09 kgBar[facility]ton [facility] Hospital12-12-2023 11:00-0500Diastolic blood xwfsyeun23 mm[Hg] Vernon Ball Other [facility]12-12-2023 11:00-0500 Respiratory rate20 /minBenjamin Ball Other [place] [employer] Other Phone: [phone] 11:00-9271OoF0% (BldA) [Mass fraction]94 % Vernon Ball Other [place] [employer] Other 035815-61-5649 11:00-0500Systolic blood lclcqakk684 mm[Hg] Vernon Ball Other [facility]11-09-2023 11:45-0500 Body umnuoh017.34 cmBenjamin Ball Other [facility] Other 11-09-2023 11:45-0500Body mass index (BMI) [Ratio] 26.22 kg/c3Fvrdajpk Ball Other [place] [employer] Other 11-09-2023 11:45-0500Body cfeotu36.28 kgBenjamin Ball Other [place] [employer] Other 846362-68-2130 11:45-0500Diastolic blood qvmreeil40 mm[Hg] Vernon Ball Other [place] [employer] Other 840340-62-5707 11:45-0500Respiratory rate16 /minBenjamin Ball Other [place] [employer] Other 11-09-2023 11:45-0500Systolic blood aojzcftp892 mm[Hg] Vernon Ball Other [place] [employer] Other 11-03-2023 08:03-0400Diastolic blood aqclnxcc99 mm[Hg] DO Vernon Ball Work Phone: [facility]11-03-2023 08:03-0400 Heart rate89 /minDO Vernon Ball Work Phone: [phone]11-03-2023 08:03-0400 Respiratory rate16 /minDO Vernon Ball Work Phone: [phone]11-03-2023 08:03-0400 SaO2% (BldA) [Mass fraction]93 %DO Vernon Ball Work Phone: [phone]11-03-2023 08:03-0400 Systolic blood fvumkerc886 mm[Hg]DO Vernon Ball Work Phone: [facility]11-03-2023 06:47-0400 Body ncrixv894.34 cmDO Vernon Ball Work Phone: [facility]11-03-2023 06:47-0400 Body cgjbqabdixv84.2 [degF]DO Vernon Ball Work Phone: [facility]11-03-2023 06:47-0400 Body wldsys69.18 kgDO Vernon Ball Work Phone: [facility]11-01-2023 13:45-0400 Body byvrkw935.34 cmJustin Pily Other [facility] Other 11-01-2023 13:45-0400Body mass index (BMI) [Ratio]26.5 kg/q5Zruiez Pily Other [facility] Other 11-01-2023 13:45-0400Body yrcnqv45.18 kgJustin Pily Other [facility] Other 09-19-2023 10:00-0400Body .34 cmBenjamin Ball Other [facility] Other 09-19-2023 10:00-0400Body mass index (BMI) [Ratio] 26.64 kg/z7Sqcodkko Ball Other [facility] Other 09-19-2023 10:00-0400Body .64 kgBenjamin Ball Other [facility] Other 09-19-2023 10:00-0400Diastolic blood ftldbezi26 mm[Hg] Vernon Ball Other [facility] Other 09-19-2023 10:00-0400Respiratory rate12 /minBenjamin Ball Other [facility] Other 09-19-2023 10:00-0400Systolic blood rgeaycdr411 mm[Hg] Vernon Ball Other [facility] Other 06-19-2023 10:30-0400Body zlhcay532.34 cmBenjamin Ball Other [facility] Other 06-19-2023 10:30-0400Body mass index (BMI) [Ratio] 27.58 kg/l9Xkfmbrcd Ball Other [facility] Other 06-19-2023 10:30-0400Body pwsymn41.72 kgBenjamin Ball Other [facility] Other 06-19-2023 10:30-0400Diastolic blood mm[Hg] Vernon Ball Other [facility] Other 06-19-2023 10:30-0400Respiratory rate12 /minBenjamin Ball Other [facility] Other 06-19-2023 10:30-0400Systolic blood adijzbpp959 mm[Hg] Vernon Ball Other [facility] Other 03-20-2023 11:30-0400Body .34 cmBenjamin Ball Other [facility] Other 03-20-2023 11:30-0400Body mass index (BMI) [Ratio] 27.42 kg/m2Qvncfitp Ball Other [facility] [employer] Other 03-20-2023 11:30-0400Body .18 kgBentuyet Greene Other [facility] [employer] Other 03-20-2023 11:30-0400Diastolic blood yrtpcbpf38 mm[Hg] Vernon Greene Other [place] [employer] Other 03-20-2023 11:30-0400Respiratory rate12 /minBentuyet Greene Other [facility] [employer] Other 03-20-2023 11:30-0400Systolic blood pzxoiqos683 mm[Hg] Vernon Greene Other [facility] [employer] Other Encounters Encounter DateEncounter TypeCare ProviderFacilityStart: 05-30-2025 End: 98-10-8546jaryzktumkElbbdysk Ball DO Work Phone: [facility] Work Phone: Start: 05-30-2025 End: 80-49-8556Xekgbdn encounter procedureBenjamin Ball DO-[facility] Work Phone: Start: 49-37-4414Ubk-patient / Non-visitJodi Heather Freeman APRN-[facility] Work Phone: Start: 11-17-2024 End: 11-30-5100Auoxeeg encounter procedureBenjamin Ball DO Work Phone: [facility] [address] Work Phone: Start: 11-17-2024 End: 72-85-5644ngycpixnnhLixomzgd Ball DO Work Phone: [facility] Work Phone: Start: 10-28-2024 End: 42-32-7050mkhqmxfjxoHkvcxwrmeDetwiler Memorial Hospital Work Phone: Start: 10-28-2024 End: 46-41-1164Loeblnz encounter procedureFormerly [facility] Work Phone: Start: 68-03-4279Wlz-patient / Non-visitFirelands Physician Group-[facility] Work Phone: Start: 09-24-2024 End: 37-67-3676jaqejtytoyNcovqfhulDetwiler Memorial Hospital Work Phone: Start: 09-24-2024 End: 67-49-3000Wfvmgda encounter procedureFormerly [facility] Work Phone: Start: 17-50-9726Odl-patient / Non-visitFirelands Physician Group-[facility] Work Phone: Start: 03-61-0119Dls-patient / Non-visitFirelands Physician Group-[facility] Work Phone: Start: 30-79-1981Pus-patient / Non-visitFirelands Physician Group-[facility] Work Phone: Start: 06-51-3926Iht-patient / Non-visitFirelands Physician Group-[facility] Work Phone: Start: 12-37-8048Zke-patient / Non-visitFirelands Physician Group-[facility] Work Phone: Start: 05-26-2024 End: 33-26-8103rfkbfeksabKhlywovhcDetwiler Memorial Hospital Work Phone: Start: 05-26-2024 End: 54-76-9298Havewak encounter procedureFormerly [facility] Work Phone: Start: 63-08-4084Szhtdil encounter procedureOhio State Health Systemtart: 05-17-2024 End: 78-78-7510adxesuroolGBXGSMO R LACONISNot AvailableStart: 05-17-2024 End: 43-43-6835Ibgyxs outpatient new 45 minutesAngeles Payan INSPECTOR FUEL HOSE Work Phone: [facility] UCComment on above:Closed fracture of multiple ribs of left side, initial encounter (Primary Dx); Rib pain on left sideStart: 05-51-8272Nir-patient / Non-visitFirnorton [facility] hospital [facility] Work Phone: Start: 12-31-2023 End: 41-37-9264hfazfqlyoqZmcginoy BallFacility:[facility] Start: 12-30-2023 End: 59-63-3798scynmvehjfYK Vernon [facility] Work Phone: [facility] Work Phone: Start: 12-30-2023 End: 03-96-6162Yrvyvwc encounter procedureDO Vernon Greene Work Phone: [facility] Work Phone: Start: 33-44-2489Xas-patient / Non-visitDO Vernon [facility] Work Phone: [facility] Work Phone: Start: 02-24-8569Ujh-patient / Non-visitDO Vernon Greene Work Phone: [facility] Work Phone: Start: 12-09-2023 End: 02-48-0416Xdpyyrz encounter procedureDO Vernon Greene Work Phone: [facility] [address] Work Phone: Start: 12-09-2023 End: 24-13-7391fizcgawjuiMY Vernon Greene Work Phone: [facility] Work Phone: Start: 11-26-2023 End: 41-90-8459pvtqaklrrjGcbwyzky Ball Other [place] [employer] Other Start: 39-83-9598Xbnaxpbvq encounterBentuyet Greene Medical ClinicStart: 11-24-2023 End: 29-05-0851pcmggjikkvBW Vernon Greene Work Phone: [facility] Work Phone: Start: 11-24-2023 End: 98-42-8487Sxwlanv encounter procedureDO Vernon Greene Work Phone: [facility] [address] Work Phone: Start: 76-50-8049Xhp-patient / Non-visitDO Vernon Greene Work Phone: [facility] Work Phone: Start: 10-20-2023 End: 33-12-1704cllqimcjidLjnhsxulz [facility] Work Phone: Start: 10-20-2023 End: 89-37-9764Szpaoyv encounter procedureFormerly [facility] Work Phone: Start: 07-62-7674Wbo-patient / Non-visitDO Vernon Greene Work Phone: [facility] Work Phone: Start: 10-07-2023 End: 70-49-1171twgsopimlgGelzfjeo Ball Other [facility] [employer] Other Start: 13-81-7489Vrvytwrwa encounterBenshadymin Jean [facility] ClinicStart: 10-06-2023 End: 70-03-5059xkrehvlngnJtlwymtd Ball Other [employer] Other Start: 86-07-7996Gakuqfcfd encounterBenshadymin Jean [facility] ClinicStart: 10-01-2023 End: 77-87-0188gnlwmkuqsaSumh Asaad Other [employer] Other Start: 91-59-9782Ydqpkx outpatient visit 25 minutes Vernon [facility] ClinicStart: 17-03-4203Dejmrahyn encounterImad AsaMingoG Referral CoordinatorStart: 10-01-2023 End: 24-92-7484Budqvnr encounter procedureFirelands Physician Group-Start: 09-02-2023 End: 60-01-7576wrvslxcyviUeoqiyqg Ball Other [employer] Other Start: 56-69-3103Vpvysttgv encounterBentuyet NyG [facility] ClinicStart: 08-29-2023 End: 67-94-2132jaetsmgoqoOaqdjnoo Ball Other [employer] Other Start: 62-97-1514Fihsng outpatient visit 25 minutes Vernon Pena [facility] ClinicStart: 08-29-2023 End: 58-02-6473Zguvokk encounter procedureFirelands Physician Group-[facility] Work Phone: Start: 08-12-2023 End: 19-62-9654zhlbfxjocdPjnpybef Ball Other [employer] Other Start: 23-92-7530Mibjflzrrutu care manage srvc 14 day dischargeBenshadymin YanelyG [facility] ClinicStart: 08-12-2023 End: 72-14-2080Parxsao encounter procedureFirelands Physician Group-[facility] Work Phone: Start: 08-06-2023 End: 40-08-3789mhxdofdsgoFyfhwsdw Ball Other [employer] Other Start: 00-60-9220Hxdtvkcis encounterBenshadymin YanelyG [facility] ClinicStart: 08-01-2023 End: 83-68-0707sgkqtemnxvFexvbgsf Ball Other [employer] Other Start: 99-13-2001Xoowjypen encounterBenjamin BallFPG [facility] ClinicStart: 07-30-2023 End: 74-05-2526suqmtphhwuKefxzgks Ball Other [facility] [employer] Other Start: 52-29-5798Dqfcqlmgn encounterBenjamin BallFPG [facility] ClinicStart: 07-16-2023 End: 69-11-6306hgibutaatpWdytulv Ditty Other [facility] [employer] Other Start: 12-40-1917Syiihzrjq encounterCameron DittyFPG Referral CoordinatorStart: 07-13-2023 End: 36-95-3939pnixuozylzZfxmtfmf Ball Other [facility] [employer] Other Start: 28-58-5824Bvqzabnkx encounterBenjamin BallFPG [facility] ClinicStart: 07-10-2023 End: 02-39-5053trumgfshxhBeemnnib Ball Other [facility] [employer] Other Start: 22-67-3665Wedyxs outpatient visit 25 minutes Vernon BallFPG [facility] ClinicStart: 75-55-1363Edlkviqth encounterBenjamin BallFPG [facility] ClinicStart: 44-47-1956Djnyypmwc encounterBenjamin BallFPG [facility] ClinicStart: 07-04-2023 End: 36-09-3102Awpmnpgrf to same day surgery centerDO Vernon Ball Work Phone: [facility] CenterStart: 07-04-2023 End: 78-13-4644aaekitpnbfSW Vernon Ball Work Phone: [facility] Work Phone: Start: 07-02-2023 End: 24-26-0828sxiwixhianOzfrxc Pily Other [employer] Other Start: 31-02-8102Bqspuw outpatient visit 25 minutes [facility]opedicsStart: 05-21-2023 End: 02-42-1836wxwlrpzwghZswcrkoj Ball Other [employer] Other Start: 42-78-4314Rmexxjkun encounterBenjamin BallFPG [facility] ClinicStart: 05-20-2023 End: 36-48-4065pngfuyzhjgKgadkjns Ball Other [employer] Other Start: 66-94-8346Xshuruy encounter procedureBenjamin BallFPG [facility] ClinicStart: 02-27-2023 End: 15-67-6171nugpragkohEyaeni Pily Other [facility] [employer] Other Start: 76-11-0281Szrpvxxrt encounterJustin Yeny [facility] OrthopedicsStart: 02-26-2023 End: 88-92-0221Nlyngup encounter procedureDO Erickson Nascimento Work Phone: [facility] Start: 02-26-2023 End: 17-26-3067tudrowehgpZM Erickson Nascimento Work Phone: [facility] Work Phone: Start: 01-87-3132Raojzk outpatient new 45 minutes Eric[facility] OrthopedicsStart: 02-17-2023 End: 67-01-2407sjvemfybbhIhwkqfsp Ball Other [employer] Other Start: 62-26-9634Wzdfsv outpatient visit 25 minutes Vernon BallFP[facility] ClinicStart: 01-09-2023 End: 66-81-0926gnvclqqdhmBdkgjyvx Ball Other [employer] Other Start: 43-55-0105Dzubwlpid encounterBenjamin BallFPG [facility] ClinicStart: 12-24-2022 End: 61-60-1593ofkgjciwojCvyhebip Ball Other [facility] Other Start: 98-06-0887Ceriqgjob encounterBenjamin BallFPG [facility] ClinicStart: 11-26-2022 End: 38-71-2799xjtzgqdlcdGnyujvzm Ball Other [employer] Other Start: 67-13-7445Mmttfbdfc encounterBenjamin BallFPG [facility] ClinicStart: 11-25-2022 End: 81-94-7724nsxjyomlacIDAVSKOW BALLFacility:N6Cyqqu: 11-18-2022 End: 24-24-9425ltgwofhxvcQoodjnim Ball Other [employer] Other Start: 65-75-9211Xgyguo outpatient visit 25 minutes Vernon BallFPG [facility] ClinicStart: 11-15-2022 End: 94-93-5881wuffxalheaTN NONE LISTED REQUESTFacility:W2Tkrut: 11-07-2022 End: 65-44-3760rxajmywhamSoddafnz Ball Other [facility] Other Start: 60-71-3552Bkhelwfgl encounterBenjamin BallFPG [facility] ClinicStart: 08-08-2022 End: 67-04-5766ojxdyfdwqwFATTRUML BALLFacility:D2Keinx: 05-15-2022 End: 44-78-3575ylokrkomacWPLBOYIN BALLFacility:N8Tehzg: 05-09-2022 End: 04-41-8767mlyndlvjviKO NONE LISTED REQUESTFacility:H1 Procedures DateProcedureProcedure DetailPerforming ClinicianStart: 95-84-1114Lpyzz ribs uni w/posteroant ch minimum 3 viewsLindssvetlana Payan INSPECTOR FUEL HOSE Work Phone: Start: 09-38-8168Zleso X-ray of bilateral handsDO Vernon Greene Work Phone: Start: 06-89-1659H-ray of both kneesDO Vernon Greene Work Phone: Start: 90-55-7147Javt reduction of fracture with internal fixationDO Vrenon Greene Work Phone: Start: 16-79-6338Pdtuw X-ray of left elbowDO Erickson Pily Work Phone: Start: 18-83-4583QLD screeningBENJAMIN BALLComment on above:Performed By: #### PSASC #### [facility] [address] [place] [address] Dr. Ginger Keane Plan of Treatment DateCare ActivityDetailAuthorStart: 87-10-7804Mpguiufpe complement CH50 level [facility] Systemtart: 71-94-9240Vvzpxfxai B core antibody measurementOhio State Health Systemtart: 22-90-5393DgzvxxdchOhio State Health Systemtart: [id number] referralKettering Health Preble Work Phone: Start: 90-12-9761WyakhngxdBarberton Citizens Hospital24 hour urine measurementBarberton Citizens HospitalAdenosine monophosphate.cyclic [Moles/volume] in Serum or [facility] [place] [facility] CenterAlbumin [Mass/volume] in Serum or [facility] [place] [facility] Albumin/Globulin ratioBarberton Citizens HospitalComplement C3 [Mass/volume] in Serum or [facility] [place] [facility] CenterComplement C4 [Mass/volume] in Serum or [facility] [place] [facility] CenterComprehensive metabolic 1999 panel - Serum or [facility] [place] [facility] Comprehensive metabolic 1999 panel - Serum or [facility] [place] [facility] CenterComprehensive metabolic 2000 panel - Serum or [facility] [place] [facility] CenterElectrophoresis: vzeiy-3-qmpyxmxkOwimknujtBarberton Citizens Hospital Electrophoresis: amyrn-2-xdkkcueeXfjnkzozlBarberton Citizens Hospital Electrophoresis: beta-globulinBarberton Citizens HospitalElectrophoresis: gamma globulinBarberton Citizens HospitalGlobulin [Mass/volume] in Serum [facility] HospitalHepatitis B virus surface Ab [Presence] in SerumBarberton Citizens HospitalHepatitis B virus surface Ag [Presence] in Serum or Plasma by ImmunoassayBarberton Citizens HospitalHepatitis C virus IgG Ab [Presence] in Serum or Plasma by ImmunoassayBarberton Citizens HospitalHomogenous nuclear Ab pattern [Titer] in SerumBarberton Citizens HospitalIgA [Mass/volume] in Serum or PlasmaBarberton Citizens HospitalIgG [Mass/volume] in Serum or [facility] [place] [facility] CenterIgM [Mass/volume] in Serum or [facility] [place] [facility] CenterImmunofixation for UrineBarberton Citizens HospitalKappa light chains.free [Mass/volume] in [facility] HospitalKapp light chains.free/Lambda light chains.free [Mass Ratio] in [facility] HospitalLambda light chains.free [Mass/volume] in Serum or [facility] [place] [facility] Measurement of monoclonal protein concentrationBarberton Citizens Hospital Microalbumin [Mass/volume] in UrineBarberton Citizens Hospital Myeloperoxidase Ab [Units/volume] in Serum by ImmunoassayBarberton Citizens HospitalNeutrophil cytoplasmic Ab.classic [Titer] in Serum by ImmunofluorescenceBarberton Citizens HospitalNeutrophil cytoplasmic Ab.perinuclear.atypical [Titer] in Serum by ImmunofluorescenceBarberton Citizens HospitalNuclear Ab [Titer] in SerumBarberton Citizens HospitalP- ANCA measurementBarberton Citizens HospitalPatient EducationLow back pain in adultsMercy Health Work Phone: Patient referralKettering Health [facility] Work Phone: Protein [Mass/volume] in Serum or PlasmaBarberton Citizens HospitalProtein [Mass/volume] in UrineBarberton Citizens HospitalProteinase 3 Ab [Units/volume] in Serum by ImmunoassayBarberton Citizens HospitalRheumatoid factor [Units/volume] in Serum or PlasmaOhio State Health Systemerum immunofixationBarberton Citizens HospitalXR Lumbar spine ViewsFirelands Regional Medical [facility] Immunizations Immunization DateImmunizationNotesCare QvscqssaWhtyfjyr48-63-1780deavkxbhhpvm polysaccharide vaccine, 23 Wilfredo Greene Other [facility]10-31-2017diphtheria, tetanus toxoids and acellular pertussis vaccine, unspecified formulation Vernon Greene Other [facility]10-31-2017 pneumococcal conjugate vaccine, 13 valTerri Greene Other [facility] Payers DatePayer CategoryPayerPolicy [id number] MEDICARE ADVANTAGE [facility] MEDICARE ADVANTAGE [id number] 2023-Present [address] [place] [id number] 1960Medicare [id number] [id number] 2..1.929541.3.57[id number] 2..1.841923.3.57[id number] 2..1.353556.3.57[id number] 2.840.1.39[id number] 2.0.1.548205.3.579.2.593 [id number] 2..1.9[id number] 2.840.1.2[id number] 2.840.1.087882.3.579.2.531 [id number] 2..840.1.0[id number] 2..840.1.619988.3.579.2.531 Social History DateTypeDetailFacilitySex Assigned At [facility] [employer] Other Start: 84-63-4984Bls [facility]igned [facility]: 07-04-2023 End: 87-27-5477Mpxxsgc smoking status NHISEx-smoker (finding)[place] [facility] Systemtart: 64-29-8219Fpwmwnx smoking status NHISNever smoked tobacco [facility] HealthcareStart: 48-33-7343Juhvbam use and exposureSmokeless tobacco non-userTOOELE VALLEY HOSPITAL HealthcareStart: 45-64-2669Janfkpzow beverage intakeCurrent drinker of alcohol (finding)[facility] HealthcareStart: 39-64-6703Xwd assigned at [facility] hospitalNot on fileTOOELE VALLEY HOSPITAL HealthcareStart: 09-24-2024 End: 96-51-7379EpeGfvl (finding)[facility] Goals DatePatient GoalDesired Activity/State Clinical Notes 11-18-2022 to 09-24-2024 Note Date & MnafHveiRkkqiyhz63-59-3351 Evaluation note* Diagnosis Onset Date Resolution Status [...] positive rheumatoid factoracute October 28, 2024 10:50am [facility] Work Phone: 1(635) 430-160209-16-2024 History of Present illness Narrative* Angeles Payan, [...] left w chest anteroposterior documented in this encounterChristian HospitalEvobtdmlmw22-94-4948 Evaluation note* Encounter Date Diagnosis Assessment Notes Treatment Notes Treatment Clinical Notes Oct, Interstitial lung disease (ICD-1 0 - J84.9) Oct,Hypoxia (ICD-10 - R09.02) Oct,Nicotine dependence, cigarettes, in remission (ICD-10 - F17.211)Age started 17 1 ppd Age quit 52 [facility] Other 01-31-2024 Evaluation note* Encounter Date Diagnosis [...] as needed. CXR, f/u from COVID infection [facility] Other 12-29-2023 Evaluation note* Encounter Date Diagnosis [...] 1 ppd Age quit 52 Continue abstinence [facility] Other 12-12-2023 Evaluation note* Encounter Date Diagnosis [...] and hypoxia. MDI and oxygen for now. [facility] Other 12-01-2023 Evaluation note* Encounter Date Diagnosis Assessment Notes Treatment Notes Treatment Clinical Notes Aug, Weight loss (ICD-10 - R63.4) [facility] Other 11-09-2023 Evaluation note* Encounter Date Diagnosis [...] or bowel habits. No melena or hematochezia [facility] Other 11-01-2023 Evaluation note* Encounter Date Diagnosis [...] poor healing. I have advised against the longterm use of narcotic pain medication. I have [...] up. Jul,Elbow mass, left (ICD-10 - R22.32) [facility] Other 09-19-2023 Evaluation note* Encounter Date Diagnosis [...] PSA (prostate specific antigen) (ICD-10 - Z12.5) [facility] Other 06-28-2023 Evaluation note* Encounter Date Diagnosis [...] as documented in the electronic medical record. [facility] Other 06-19-2023 Evaluation note* Encounter Date Diagnosis [...] wks. Nontender and mobile. Refer to Orthopedics Vaughan [employer] Other 03-27-2023 NotePROCEDURE: XR KNEE LT 3V [...] by: VINNY MURILLO Date: 2022-11-25 10:55[facility]03-20-2023 Evaluation note* Encounter Date Diagnosis [...] Initiate PPI and if no improvement, EGD [facility] [employer] Other Evaluation noteNo InformationNortSt. Mary Rehabilitation Hospital [employer] Other Evaluation noteNo assessment information available [facility] Work Phone: Evaluation note* Diagnosis Onset Date Resolution Status Inflammatory polyarthritis acute [facility] Work Phone: Evaluation note* Diagnosis Onset Date Resolution Status ASHD (arteriosclerotic heart disease) [id number] (interstitial lung disease)acute Inflammatory polyarthritisacuteNicotine dependence, cigarettes, in remission acuteSinus tachycardiaacute [facility] Work Phone: Evaluation note* Diagnosis Onset Date Resolution Status ASHD (arteriosclerotic heart disease) acuteHypoxiaacuteILD (interstitial lung disease)acuteInflammatory polyarthritis acuteNicotine dependence, cigarettes, in remissionacuteSinus tachycardiaacute ASHD (arteriosclerotic heart disease)acuteHypoxiaacuteILD (interstitial lung disease)acuteMucopurulent chronic bronchitisacuteNicotine dependence, cigarettes, in remissionacuteRheumatoid arthritis involving both hands with positive rheumatoid factoracuteType 2 diabetes mellitus with hyperglycemiaacute [facility] Work Phone: Evaluation note* Diagnosis Onset Date Resolution Status ASHD (arteriosclerotic heart disease) acuteHypercholesterolemiaacuteHypoxiaacuteILD (interstitial lung disease)acute Medicare annual wellness visit, subsequentacuteMucopurulent chronic bronchitis acuteNicotine dependence, cigarettes, in remissionacuteRheumatoid arthritis involving both hands with positive rheumatoid factoracuteScreening PSA (prostate specific antigen)acuteType 2 diabetes mellitus with hyperglycemiaacute [facility] Work Phone: Evaluation note* Diagnosis Closed fracture [...] 2 diabetes mellitus with hyperglycemiaacuteJanuary 2024 11:26am [facility] Work Phone: Evaluation note* Diagnosis Onset Date [...] 11:19amType 2 diabetes mellitus with hyperglycemiaacuteSept2024 11:19am [facility] Work Phone: History general Narrative - Reported* [...] without long-term current use of insulinSurgical HistoryLHC PTCA/RUECR7602 Surgical KinwwbiIAG1649Ffrvqhjfazerthr HistorySEE SURGICAL [facility] [employer] Other History general Narrative - Reported* Type [...] without long-term current use of insulinSurgical HistoryLHC PTCA/YXHUM7675 Surgical SsvtdejICN9271Qbropanj HistoryExcision left elbow mass07/2023 Hospitalization HistorySEE SURGICAL HX [facility] Other Hospital Discharge instructions Additional Instructions Orthopedic [...] prescribed. You may take Motrin or Tylenol owch-fgt-qhkjngb if you wish. Follow-up in [address] Erickson Ch[facility] [place], [place] [address] [phone] Health Preble Work Phone: Reason for referral (narrative)* Reason *Waiting for appt Referral for recurrent left Olecranon bursa and SC nodule Diagnosis 1 Olecranon bursitis o f left elbow (M70.22) Diagnosis 2 Subcutaneous nodule (R22.9) Referral Organization [facility] linkatie Referring Provider First Name Vernon Referring Provider Last Name Jc Referring Provider Specialty Internal Fl dicine Referred Organization [facility] Referred Provider Erickson Nascimento Referred Address [address] [place], [place],[address] Referred Provider Specialty Orthopedic S urgery Referral [...] 02/17/2023 11:21:37 AM >received today, sent P2P [facility] Other Reason for referral (narrative)* Reason Referral for screeni ng colonoscopy and EGD Diagnosis 1 Unexplained weight l oss (R63.4) Diagnosis 2 Epigastric discomfor t (R10.13) Diagnosis 3 Serum lipase elevati on (R74.8) Diagnosis 4 Colon cancer screeni ng (Z12.11) Referral Organization [facility] berta Referring Provider First Name Vernon Referring Provider Last Name Jc Referring Provider Specialty Internal Me dicine [facility] Referred Provider Rochelle Woodard Referred Address [address] [place], [place],[address] Referred Provider Specialty Gastroentero logy Referral Priority [...] be done within the next 2-3 wks. [facility] Other Reason for referral (narrative)No reason for referral information availableMercy Health Work Phone: Summary Purpose Family History Relationship [...] 1 weekReason for VisitASHD (arteriosclerotic heart disease) [id number] Hypoxia ILD (interstitial lung disease) Inflammatory polyarthritis Nicotine dependence, cigarettes, in remission Sinus tachycardia Chief Complaint 4 Month Follow Up 1 week M35.9;Z11.59;Z79.899;D89.2 Hand pain Knee PainReason for VisitASHD (arteriosclerotic heart disease) [id number] Hypoxia ILD (interstitial lung disease) Inflammatory polyarthritis [...] Admit Date ASHD (arteriosclerotic heart disease) [facility] 2024 11:26am Hypercholesterolemia September 24, 2024 11:26am [...] Admit Date ASHD (arteriosclerotic heart disease) [facility] 2024 11:26am Hypercholesterolemia September 24, 2024 11:26am [...] 11:19am Type 2 diabetes mellitus with hyperglyce [facility] May 30, 2025 11:19am Additional Source Comments [...] section and content) DATE CREATED AUTHOR 12/02/2022 [facility] DATE CREATED AUTHOR AUTHOR'S ORGANIZ ATION 05/23/2024 [facility] DATE CREATED AUTHOR AUTHOR'S ORGANIZ ATION 11/27/2024 [facility] Care Teams (unrecognized sec tion [...] 2023 Team Status: Active Member Role Status Kinag Greene DO Primary Care Provide r, Attending [...] BE BASED ON THE PRIMARY CLINICAL RECORDS. [email or web address] provides no warranty or guarantee of the accuracy or completeness of information in this document.
== END 2025-06-23 12:22 | disposition home or self-care (01) ==
LOC: LAB 12:23
PROVIDERS: PCP Internal Medicine; Visit Provider Registered Nurse
DX: M05.79 Rheumatoid arthritis with rheumatoid factor of multiple sites without organ or systems involvement (principal); Z79.899 Other long term (current) drug therapy
CPT/HCPCS: 36415; 85652

== ENCOUNTER 2025-08-17 15:58 | Outpatient (OUT) | payer MEDICARE, SELFPAY ==
--- OUTSIDE RECORDS SUMMARY | 2025-08-17 16:03 | XMS_ITS | Clinical Summary ---
Author Organization [facility] Healthcare Address [address] [place] [address] Care Team Providers Care Admissions Clerk Name Role Phone Unavailable Primary Care Provider [...] tablet 05/13/2024ctive meloxicam (Mobic) 15 MG tablet .MPIGPKR8812/03/2023ctive losartan (Cozaar) 25 MG tablet Take 25 [...] InformationValueDate RecordedSex Assigned at BirthNot on fileLegal DnjVuso0711/13/2022 7:02 PM EDTGender IdentityNot on fileSexual OrientationNot on file Last Filed Vital Signs Vital SignReadingTime TakenCommentsBlood Xcrsdunv566/80005/17/2024 1:51 PM EDT Pksgi29148/16/2024 1:51 PM EDTrepeat puls 96bpm zfujdtXxwvmnkwcrc82.6 ??C (97.8 ??F)05/17/2024 1:51 PM EDTRespiratory Jdjg344905/17/2024 1:51 PM EDTOxygen Acjdaaztnh39%05/17/2024 1:51 PM EDTInhaled Oxygen Concentration--Orclon24.8 kg (198 lb)05/17/2024 1:51 PM EDTHeight--Body Mass Index-- Plan of Treatment Not on file Insurance
--- OUTSIDE RECORDS SUMMARY | 2025-08-17 16:04 | XMS_ITS | Clinical Summary ---
Author Organization [facility] Address [address], [address] [place] [address] Care Team Providers Care Inhalation Therapist Name Role Phone Unavailable Primary Care Provider Unavailabl e Social History Tobacco UseTypesPacks/DayYears UsedDateSmoking Tobacco: Never AssessedSex and Gender InformationValueDate RecordedSex Assigned at BirthNot on fileLegal Sex Male10/11/2012 5:42 PM ESTGender IdentityNot on fileSexual OrientationNot on file Plan of Treatment DateTypeDepartmentCare Team (Latest Contact Info)Coimgtjvoqb17/27/2026 1:00 PM ESTOffice Visit [facility] [address] [place] [address] [address] [place] [id number] Alli Sims [address] [place] [address] [address] [place] [address] APRIL PT - SOBHealth MaintenanceDue DateLast DoneCommentsDepression Screen 1963Hepatitis C teyndm7006/12/1969DTaP/Tdap/Td vaccine (1 - Tdap)1970 Pblsui4606/12/19911951Rriddrcfgvz95/12/1996Colorectal Cancer Kjbkys6406/12/1996FIT/FOBT: Average risk1996Fecal-DNA (Cologuard): Average risk1996 Sigmoidoscopy/CT zexxczjnubzz53/12/1996Pneumococcal 50+ years Vaccine (1 of 1 - PCV)2001Shingles vaccine (1 of 2)2001Flu vaccine (#1)04/01/2025 COVID-19 Vaccine ( - season)2025Respiratory Syncytial Virus (RSV) or age 60 yrs+ (1 - 1-dose 75+ series)2026Hepatitis A vaccineAged OutNo longer eligible based on patient's age to complete this topicHepatitis B vaccineAged OutNo longer eligible based on patient's age to complete this topic Hib vaccineAged OutNo longer eligible based on patient's age to complete this topicMeningococcal (ACWY) vaccineAged OutNo longer eligible based on patient's age to complete this topicMeningococcal B vaccineAged OutNo longer eligible based on patient's age to complete this topicPolio vaccineAged OutNo longer eligible based on patient's age to complete this topic
--- OUTSIDE RECORDS SUMMARY | 2025-08-17 16:04 | XMS_ITS | Patient Health Record ---
Author Organization The [facility] in [place] Address [address] [place] [address] Care Team Providers Care Food And Beverage Controller Name Role Phone Vernon Garduno DO Primary Care Provider Elvin Sheffield Unavailable [phone] Allergies No Known Allergies Results Component Value Reference Range Notes RT pulmonary function test Reviewed date:10/12/2024 10:42:39 AM Interpretation: Performing Lab: Notes/Report: Source Facility: [place] [address] [place] [address] Respiratory Report Signed Patient: MARIANO SPAULDING MR#: [id number] : 1950 Acct:[id number] Age/Sex: 74 / M ADM Date: 10/11/24 Loc: CT Attending Dr: Elvin Guillen D.O. Ordering Physician: Elvin Guillen D.O. Date of Service: 10/11/24 Procedure(s): RT pulmonary function test Accession Number(s): [id number] cc: [facility] Test Date: 2024-10-11 Pat Name: MARIANO SPAULDING Department: Room: - Gender: Male [employer] Staff Officer: Thony Funez RRT : 1950 Requested By: Elvin Guillen Order Number: [id number] Reading MD: Elvin Guillen Interpretive Statements Pulmonary [...] Signed By: 10/12/24 1022 DD/ 1311 TD/TT: Dermatology Nurse Practitioner: CT chest high res Reviewed date:10/12/2024 07:45:22 AM Interpretation: Performing Lab: Notes/Report: Source Facility: [place] [address] CT Scan Report Signed Patient: MARIANO SPAULDING MR#: [id number] : 1950 Acct:[id number] Age/Sex: 74 / M ADM Date: 10/11/24 Loc: CT Attending Dr: Elvin Guillen D.O. Ordering Physician: Elvin Guillen D.O. Date of Service: 10/11/24 Procedure(s): CT chest high res Accession Number(s): [id number] cc: Vernon Garduno D.O. [facility] [place] [address] Patient Name: MARIANO SPAULDING MRN: [id number] date: 1950 Sex: M Assigned Patient Location: CT Current Patient Location: Accession/Order Number: [id number] Exam Date: 10/11/2024 14:37 Report Date: 10/12/2024 [...] Floyd M.D. Signed By: 10/12/2448 DD/ TD/TT: Dermatology Nurse Practitioner: CT Chest High Resolution Reviewed date:10/12/2024 07:15:13 AM Interpretation: Performing Lab: Notes/Report: ITP Reviewed date:11/02/2024 07:29:46 AM Interpretation: Performing Lab: Notes/Report: Source Facility: [place] [address] [place] [address] Cardiac Rehab Report Signed Patient: MARIANO SPAULDING MR#: [id number] : 1950 Acct:[id number] Age/Sex: 74 / M ADM Date: 10/28/24 Loc: CR Attending Dr: Elvin Guillen D.O. Ordering Physician: Elvin Guillen D.O. Date of Service: 10/29/24 Procedure(s): ITP Accession Number(s): [id number] cc: [facility] Test Date: 2024-10-29 Pat Name: MARIANO SPAULDING Department: Room: - Gender: Male [employer] Staff Officer: : 1950 Requested By: Elvin Guillen Order Number: [id number] Angel Luis MD: VERNON GARDUNO Interpretive Statements Session Date: Electronically Signed On 10-31-2024 8:18:38 EST by VERNON GARDUNO Dictated By: Vernon Garduno D.O. Signed By: 10/31/24 0818 10/31/2418 DD/ 1537 TD/TT: Dermatology Nurse Practitioner: ITP Reviewed date:02/24/2025 04:04:43 PM Interpretation: Performing Lab: Notes/Report: Source Facility: [place] [address] Cardiac Rehab Report Signed Patient: MARIANO SPAULDING MR#: [id number] : 1950 Acct:[id number] Age/Sex: 74 / M ADM Date: 02/24/25 Loc: CR Attending Dr: Elvin Guillen D.O. Ordering Physician: Elvin Guillen D.O. Date of Service: 02/24/25 Procedure(s): [facility] Accession Number(s): [id number] cc: [facility] Test Date: 2025-02-24 Pat Name: MARIANO SPAULDING Department: Room: - Gender: Male [employer] Staff Officer: : 1950 Requested By: Elvin Guillen Order Number: [id number] Angel Luis MD: Elvin Guillen Interpretive Statements Okay to proceed with outlined treatment plan. Electronically Signed On 02-24-2025 15:29:26 EDT by Elvin Guillen Dictated By: Elvin Guillen D.O. Signed By: 02/24/25 1529 02/24/25 1529 DD/ 1442 TD/TT: Dermatology Nurse Practitioner: ITP Reviewed date:03/09/2025 10:42:39 AM Interpretation: Performing Lab: Notes/Report: Source Facility: [place] [address] [place] [address] Cardiac Rehab Report Signed Patient: MARIANO SPAULDING MR#: [id number] : 1950 Acct:[id number] Age/Sex: 74 / M ADM Date: 03/08/25 Loc: CR Attending Dr: Elvin Guillen D.O. Ordering Physician: Elvin Guillen D.O. Date of Service: 03/01/25 Procedure(s): ITP Accession Number(s): [id number] cc: [facility] Test Date: 2025-03-01 Pat Name: MARIANO SPAULDING Department: Room: - Gender: Male [employer] Staff Officer: : 1950 Requested By: Elvin Guillen Order Number: [id number] Reading MD: Elvin Guillen Interpretive Statements Okay to continue with outlined treatment plan. Electronically Signed On 03-09-2025 10:10:23 EDT by Elvin Guillen Dictated By: Elvin Guillen D.O. Signed By: 03/09/25 1010 03/09/25 1010 DD/ 1500 TD/TT: Dermatology Nurse Practitioner: KESHA (Not yet reviewed by pro vider) Interpretation: Performing Lab: Notes/Report: Source Facility: [place] [address] [place] [address] Cardiac Rehab Report Signed Patient: MARIANO SPAULDING MR#: [id number] : 1950 Acct:[id number] Age/Sex: 74 / M ADM Date: 04/28/25 Loc: CR Attending Dr: Elvin Guillen D.O. Ordering Physician: Elvin Guillen D.O. Date of Service: 04/19/25 Procedure(s): ITP Accession Number(s): [id number] cc: [facility] Test Date: 2025-04-19 Pat Name: MARIANO SPAULDING Department: Room: - Gender: Male [employer] Staff Officer: : 1950 Requested By: Elvin Guillen Order Number: [id number] Angel Luis MD: Lam Bethea Interpretive Statements Session Date: Electronically Signed On 04-29-2025 13:28:11 EDT by Lam Bethea Dictated By: Lam Bethea M.D. Signed By: 04/29/25 1328 04/29/25 1328 DD/ 0741 TD/TT: Dermatology Nurse Practitioner: Reason For Referral No Information Medications Medication SIG (Take, Route, Frequency, Duration) Notes Start Date End Date Status Atorvastatin Calcium 80 MG Oral; Duration: 90 Da ys ActiveAspirin 81 MG1 tablet Orally Once a dayActiveAlbuterol Sulfate HFA 108 (90 Base) MCG/ACTINHALE 2 PUFFS BY MOUTH EVERY 6 HOURS NEEDED FOR WHEEZING OR SHORTNESS OF BREATH Inhalation; Duration: 25 DaysActivemetFORMIN HCl 1000 MG Oral; Duration: 90 DaysActiveLosartan Potassium 25 MGOral; Duration: 90 Days ActiveHydroxychloroquine Sulfate 200 MGOral; Duration: 30 DaysActiveFarxiga 10 MGTAKE 1 TABLET BY MOUTH EVERY DAY Oral; Duration: 90 DaysActiveOzempic (1 MG/DOSE) 4 MG/3MLINJECT 1MG SUBCUTANEOUSLY EVERY WEEK FOR 28 DAYS Subcutaneous; Duration: 28 DaysActiveNitroglycerin 0.4 MGDISSOLVE 1 TABLET UNDER TONGUE NEEDED Sublingual; Duration: 90 DaysActiveMycophenolate Mofetil 500 MGOral; Duration: 30 DaysActiveMetoprolol Succinate ER 25 MGOral; Duration: 90 Days ActivepredniSONE 5 MGTAKE 2 TABS EACH MORNING NEEDED FOR 1 MONTH, THEN 1 TABLET EACH MORNING NEEDED Oral; Duration: 30 DaysActive Immunizations Vaccine Route Administration Date Status Comme nts Pneumococcal (Pneumovax 23) Unknown 05/25/2018 Administ ered Pneumococcal (Prevnar 13)Volopwa8907/01/2017Administered Social History Tobacco Use: Social History Observation Description Date Details (start date - stop date) Former Smoker NA - NA Tobacco Control (Standard) Question Answer Notes Tobacco use: Former smoker How long has it been since you last smoked?Greater than 10 yearsAdditional Findings: Tobacco nij-ccmzSh-xktlxxwt cigarette smoker (10-19/day) Problems Problem Type SNOMED Code ICD Code Onset Dates Problem Status W/U Status Risk Notes Problem Pulmonary fibrosis (85756613) Pulmonary f ibrosis, unspecified (J84.10) ActiveconfirmedProblemChronic respiratory failure (39055337)Chronic respiratory failure with hypoxia (J96.11)ActiveconfirmedProblemRheumatoid arthritis (93882488)Rheumatoid arthritis (M06.9)ActiveconfirmedProblemDiabetes mellitus type 2 (disorder) (79645813)DM2 (diabetes mellitus, type 2) (E11.9)Active confirmedProblemEx-tobacco user (finding) (691159831)History of tobacco abuse (Z87.891)ActiveconfirmedProblemTraction bronchiectasis (24208420)Traction bronchiectasis (J47.9)ActiveconfirmedProblemPost-acute COVID-19 (disorder) (3962648616)Post-acute COVID-19 syndrome (U09.9)Activeconfirmed Vital Signs Heart Rate 83 /min 10/27/2024 [...] 29.01 kg/m2 10/27/2024 POC 3L -Activit y/Resting Encounters Encounter Location Date Provider Diagnosis Pulmonary Medicine [place] [address] [place] [address] 02/14/2025 [facility] Pulmonary Medicine [address] [place] [address] [address] [place] [address] [facility], [facility] J84.10 ; Post-acute COVID- 19 syndrome U09.9 ; Chronic respiratory failure with [...] now with 10/11/2024. Treating as the firbosis ispresumptive connective tissue disease (RA vs. SLE) +/- [...] Guzmán feels in his opinion as a lacemaker that 6 month F/U HRCT and PFT are recommended, we can certainly repeatthem then. F/U 1 year, or sooner if needed. 10/27/2024Post-acute COVID-19 syndrome (ICD-10 - U09.9) Patient is participating in pulmonary rehabilitation. Albuterol has no benefit which is not shocking - fibrosis is affecting the interstitial tissue while albuterol targets smooth muscle of bronchioles - albuterol does not generally help with fibrosis. 5Chronic respiratory failure with hypoxia (ICD-10 - J96.11) Clxv-tk-yogr encounter performed with the patient to document continued need for supplemental oxygen (O2). -Flow & directions: 2L/min @ rest, 3-4L/min with activity-Patient voices adherence to recommended usage: Yes-Symptom control on O2: Less SOB with O2- Counseled patient not begin, restart, or continue smoking, [...] that led to the point of requiring O2.- Recommendations: He is doing well with his O2 at this time. Continue O2 ATC. 10/27/2024Traction bronchiectasis (ICD-10 - J47.9) Secondary to fibrosis. Currently asymptomatic. 10/27/2024Rheumatoid arthritis (ICD-10 - M06.9) F/U with Dr. Guzmán. 10/27/2024DM2 (diabetes mellitus, type 2) (ICD-10 - E11.9) Steroids prescribed for this patient's underlying pulmonary disease can adversely affect blood glucose levels, inducing hyperglycemia and worsening underlying diabetes. The patient is encouraged to follow up with the primary care provider to create a plan to manage diabetes in this situation. 10/27/2024History of tobacco abuse (ICD-10 - Z87.891) ~1ppd x 33 years, quit 2002. This patient does not meet current LDCT criteria (e.g. age, time from cessation, # pack-years). Plan Of Treatment Pending Test Test Name Order Date ITP 04/19/2025 Insurance Providers Payer Name Payer Address Payer Phone Subscriber Number Group Number Insured Name Patient Relationship to Insured Coverage Start Date Coverage End Date [facility] MED[facility] ADV PLAN [address] [phone] [id number] [id number] Self - patient is the insured [...] COVID-19 syndrome U09.9 Surgical History Surgery Date(Month/Year) tonsillectomy and adenoidectomy open reduction, internal fixation (ORIF)-left armlumpectomy-left elbowCardiac Catheterization with Stent PlacementHospitalization History Reason Date(Month/Year) Ygslh-27-LOY 08/02/2023
[2025-08-19 04:10] LABS: PSA, Free 0.19 ng/mL
== END 2025-08-17 15:59 | disposition home or self-care (01) ==
LOC: LAB 16:00
PROVIDERS: PCP Internal Medicine; Visit Provider Internal Medicine
DX: Z12.5 Encounter for screening for malignant neoplasm of prostate (principal)
CPT/HCPCS: 36415; 84153; 84154